=== PATIENT | female | born 1990 | race Caucasian/White ===

== ENCOUNTER 2021-06-15 21:31 | Observation (INO) | payer MEDICAID, SELFPAY ==
[2021-06-15 21:32] VITALS: BP 146/93; PULSE 108; RESP 16; TEMP 36.6; O2SAT 98; BMI 51.5
--- NOTE | 2021-06-15 22:20 | CT_ITS ---
EXAMINATION : Head CT w/out contrast HISTORY : headache COMPARISON : None. TECHNIQUE : Multiple contiguous axial images were obtained from the skull base to the vertex without intravenous contrast. A radiation dose optimization technique was used for this scan. FINDINGS : The ventricles and sulci are normal in size. There is no evidence for acute intracranial hemorrhage, mass effect, or midline shift. There is no extra-axial fluid collection. There is normal horn-white differentiation, without CT evidence of acute ischemia or infarct. The skull base and calvarium are unremarkable. The orbits are unremarkable. The paranasal sinuses are clear. The mastoid air cells are well-aerated. The soft tissues are unremarkable. CT/Brain/Head without Contrast IMPRESSION: No acute intracranial abnormality. Electronically Signed: Anselmo Diaz MD at 23:15 EDT Tel , Service support ,
--- NOTE | 2021-06-15 22:20 | EKG12_ITS ---
Test Reason : PALPITATIONS Blood Pressure : / mmHG Vent. Rate : 086 BPM Atrial Rate : 086 BPM P-R Int : 166 ms QRS Dur : 084 ms QT Int : 380 ms P-R-T Axes : 043 015 037 degrees QTc Int : 454 ms Sinus rhythm with sinus arrhythmia with occasional Premature ventricular complexes Otherwise normal ECG Confirmed by STEPHANIE GALEANO, LASHONDA ([id number]), editorial clerk AMBIKA TELLO ([id number]) on 06/20/2021 10:49:13 AM Referred By: Confirmed By:TAMAR BROWN MD
--- NOTE | 2021-06-15 22:22 | EDS_ITS ---
HPI History of Present Illness Chief Complaint: Palpitations Detail of Chief Complaint: Tachycardia Informant: patient Narrative Narrative: Patient presents to the emergency department with a racing heart that started around 6:30 PM while she was driving. At the same time patient also developed a frontal headache that feels like a band wrapping around her head. She rates her headache a 7 out of 10. She has history of migraines. Patient went to [employer] and while in [employer] had frequent episodes of heart racing anywhere from 130 to 140 bpm. Patient denies recent illness. She has not been vaccinated against Covid. She denies recent travel or surgery. No history of PE or DVT. Patient does have history of insulin resistance and hyperglycemia. She denies any chest pain. Patient states that while in triage she was seated and had a syncopal episode. When her heart races she feels lightheaded and dizzy. [facility] Medical History (Updated 06/16/21 @ 00:[address] Madeleine Hebert, ) History of asthma History of lupus anticoagulant disorder Insulin resistance Migraines Home Medications [id number] fumarate-FA [] 1 tab PO DAILY 06/15/21 [History Last Taken Unknown] albuterol sulfate 2.5 mg INHALATION Q4H 06/15/21 [History Last Taken Unknown] aspirin 81 mg PO DAILY 06/15/21 [History Last Taken Unknown] folic acid 1 mg PO DAILY 06/15/21 [History Last Taken Unknown] gabapentin 100 mg PO DAILY PRN 06/15/21 [History Last Taken Unknown] metformin 1,000 mg PO DAILY 06/15/21 [History Last Taken Unknown] naproxen 500 mg PO BID PRN 06/15/21 [History Last Taken Unknown] promethazine [Phenergan] 25 mg PO Q6H PRN 06/15/21 [History Last Taken Unknown] Allergy/AdvReac Type Severity Reaction Status Date / Time prochlorperazine Allergy Other Verified 06/15/21 21:32 [From Compazine] Surgical History History of cholecystectomy History of tonsillectomy Social History Smoking Status: Never smoker ROS ROS ED Constitutional Constitutional ED: Reports systems reviewed and no addt'l complaints, except as documented; Denies body ache(s), change in weight or chills Eyes Eyes: Denies acute decrease in peripheral vision, change in vision, double vision or loss of vision ENT ENT ED: Reports none; Denies ear pain, lip swelling, loss taste/smell, neck pain, otalgia or sore throat Cardiovascular Cardiovascular: Reports none, racing heartbeat and other Details: Syncopal episode ; Denies abdominal pain, chest pain with activity, leg edema, lightheadedness, rapid heart rate or syncope Respiratory/Chest Respiratory/Chest: Reports none; Denies change in mental status, dry cough, dyspnea, hemoptysis, shortness of breath at rest or shortness of breath with exertion Gastrointestinal Gastrointestinal: Reports none; Denies abdominal pain, change in stool character, diarrhea, hematemesis, hematochezia, melena, rectal bleeding or vomiting Genitourinary Genitourinary ED: Reports none; Denies abdominal discomfort, anuria, dysuria, genital pain or polyuria Musculoskeletal Musculoskeletal: Reports none; Denies arthralgias, back pain, difficulty walking, extremity pain, muscle weakness or myalgias Integumentary Reports none; Denies abscess or rash Neurologic Neurologic: Reports none, headache(s) and other Details: Dizziness ; Denies abnormal gait, confusion, focal weakness, frequent falls, loss of vision, numbness, paresthesias, radicular pain, vertigo or weakness Psychiatric Psychiatric: Reports systems reviewed and no addt'l complaints, except as documented and none; Denies behavioral changes, confusion, difficulty concentrating, hallucinations, suicidal ideation, tactile hallucinations or visual hallucinations Endocrine Endocrinology: Denies none, cold intolerance, excessive sweating, fatigue or heat intolerance Hematologic/Lymphatic Hematologic/Lymphatic: Reports none; Denies anemia, easy bleeding or easy bruising Allergic/Immunologic Allergic/Immunologic ED: Denies as per HPI, none, lip swelling, mouth swelling, throat swelling, tongue swelling or hives EXAM Physical Exam Const Vital Signs: 06/15/21 21:32 06/15/21 22:40 06/15/21 22:41 Temperature 97.8 F Temperature Source Temporal Pulse Rate 108 H 109 H Pulse Rate [Lying] Pulse Rate [Sitting] Pulse Rate [Standing] Respiratory Rate 16 12 Respiratory Effort Normal Non-Labored Blood Pressure 146/93 H 124/71 H Blood Pressure [Lying] Blood Pressure [Sitting] Blood Pressure [Standing] Blood Pressure Mean 110 88 Blood Pressure Mean [Lying] Blood Pressure Mean [Sitting] Blood Pressure Mean [Standing] Pulse Ox 98 97 Oxygen Delivery Method Room Air Room Air 06/15/21 22:46 Temperature Temperature Source Pulse Rate Pulse Rate [Lying] 94 Pulse Rate [Sitting] 103 H Pulse Rate [Standing] 116 H Respiratory Rate Respiratory Effort Blood Pressure Blood Pressure [Lying] 134/84 H Blood Pressure [Sitting] 155/110 H Blood Pressure [Standing] 154/109 H Blood Pressure Mean Blood Pressure Mean [Lying] 100 Blood Pressure Mean [Sitting] 125 Blood Pressure Mean [Standing] 124 Pulse Ox Oxygen Delivery Method Positive well nourished and well developed General Appearance ED: well developed and NAD HEENT Reports TM's clear and moist mucous membranes normocephalic and atraumatic; Negative for trauma or tenderness Tympanic Membrane ED: Yes TM's clear Eyes PERRL and EOMs intact bilaterally General Eye ED: Negative for pale conjunctiva or scleral icterus Neck no lymphadenopathy, supple and no JVD General: Negative for tenderness Chest Wall inspection of chest normal and palpation of chest normal Chest: Negative for tenderness Resp normal respiratory effort and clear to auscultation bilaterally Effort and Inspection: Negative for respiratory distress or pain with movement Auscultation: Negative for rhonchi, wheezes or diminished lung sounds Cardio regular rate, regular rhythm, S1 normal heart sound, S2 normal heart sound and no murmurs Peripheral Pulses: pulses 2+ throughout GI normal to inspection, nondistended, normoactive bowel sounds, soft to palpation, non-tender, non-distended and no masses Back/Spine no CVA tenderness and no thoracic nor lumbar tenderness Extremity normal to inspection General Extremety ED: Negative for edema General Extremity: Negative for edema Neuro oriented x3, CN's II-XII intact bilaterally, no sensory deficits noted and gait normal Sensorium / Orientation: awake, alert, oriented to person, oriented to place and oriented to time Motor Exam: strength 5/5 throughout and strength abnormal Psych mental status grossly normal Skin no rashes or lesions noted and no wounds MDM MDM MDM Narrative Medical decision making narrative: Results of patient D-dimer still pending. Discussed with hospitalist will evaluate patient for admission. Patient had a syncopal episode in triage and then another episode in the room. Patient states that she felt like her heart was starting to race again and felt like she was in a pass out and then was unconscious for about a minute per her . No seizure activity noted. Rhythm strip was reviewed and did not show any lethal arrhythmias. Case discussed with hospitalist will evaluate patient for admission Lab Data Attestation: I reviewed the patient's lab results. Labs: Laboratory Results - last 24 hr 06/15/21 06/15/21 06/15/21 22:30 22:30 22:30 WBC 11.6 H RBC 5.01 Hgb 12.8 Hct 41.0 MCV 81.8 MCH 25.5 L MCHC 31.2 L RDW Std Deviation 45.7 H RDW Coeff of Remigio 15.2 H Plt Count 244 MPV 12.6 H Immature Gran % (Auto) 0.300 Neut % (Auto) 66.8 Lymph % (Auto) 24.1 [place] % (Auto) 6.5 Eos % (Auto) 2.0 Baso % (Auto) 0.3 Absolute Neuts (auto) 7.8 H Absolute Lymphs (auto) 2.79 Nucleated RBC % 0 Sodium 141 Potassium 3.8 Chloride 107 Carbon Dioxide 27.0 Anion Gap 7 BUN 16 Creatinine 0.80 Estim Creat Clear Calc 99.99 Est GFR (MDRD) Af Amer 108 Est GFR (MDRD) Non-Af 89 BUN/Creatinine Ratio 19.9 Glucose 100 Calcium 9.1 Troponin I High Sens 6 TSH 3.47 Serum , Qual NEGATIVE Radiography Chest X-Ray - ED: 1 View Diagnostic Testing: Clinical Impression(s) from Imaging Studies Brain CT 06/15/21 22:20 IMPRESSION: No acute intracranial abnormality. Electronically Signed: Anselmo Diaz MD at 23:15 EDT Tel , Service support , Chest X-Ray 06/15/21 23:08 IMPRESSION: Normal x-ray examination of the chest. Electronically Signed: Chris Frost DO at 23:18 EDT Tel [phone], Service support , 1 view chest x-ray obtained interpreted by myself as no acute disease process. EKG Initial EKG: Comments: Sinus rhythm with a ventricular rate of 86 bpm with occasional PVCs. Discharge Plan Triage Chief Complaint: Palpitations ED Provider: Madeleine Hebert Dx/Rx/DC Orders Clinical Impression: Syncope, Tachycardia Prescriptions: No Action albuterol sulfate 2.5 mg /3 mL (0.083 %) solution for nebulization 2.5 mg inhalation Q4H RF: 0 metformin 500 mg tablet extended release 24 hr 1,000 mg PO DAILY RF: 0 aspirin 81 mg Capsule 81 mg PO DAILY RF: 0 promethazine [Phenergan] 25 mg Tablet 25 mg PO Q6H PRN (Reason: Migraine Headache) RF: 0 folic acid 1 mg Tablet 1 mg PO DAILY RF: 0 gabapentin 100 mg Capsule 100 mg PO DAILY PRN (Reason: Migraine Headache) RF: 0 naproxen 500 mg Tablet 500 mg PO BID PRN (Reason: Migraine Headache) RF: 0 28-800 mg-mcg Tablet 1 tab PO DAILY RF: 0 Disposition Disposition: Acute Care [facility]
--- NOTE | 2021-06-15 22:22 | ED.RN ---
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 pt was then sent to open room for evaluation by ed dr. kenia kimball, rn [id number] Original Note: pt had a syncopal episode in triage. spouse approached the desk and said i think she has passed out. pt was found in arm chair with her head back against the wall. she did not respond to verbal stimuli. pulse was present. kenia kimball rn [id number]
[2021-06-15 22:40] VITALS: BP 124/71; PULSE 109; RESP 12; O2SAT 97
[2021-06-15] MEDS: 0.9% Normal Saline 1,000 ML 1000 ML IV (22:43)
[2021-06-15 22:46] VITALS: BP 134/84; BP 154/109; BP 155/110; PULSE 103; PULSE 116; PULSE 94
[2021-06-15 22:48] LABS: Absolute Lymphocyte Count 2.79 X10^3/uL (0.83-4.51); Absolute Neutrophil Count 7.8 X10^3/uL (2.0-7.7); Basophil# 0.04 X10^3/uL; Basophil% 0.3 % (0-1); Eosinophil# 0.23 X10^3/uL; Hemoglobin 12.8 g/dL (12.0-15.0); Lymphocyte # 2.79 X10^3/ul (0.83-4.51); Lymphocyte % 24.1 % (19-41); Mean Corp Hgb Conc 31.2 g/dL (32-36); Mean Corpuscular Hgb 25.5 pg (27.0-32.0); Mean Corpuscular Volume 81.8 fL (81-99); Mean Platelet Vol. 12.6 fl (6.2-12.0); Monocyte# 0.75 X10^3/uL; Monocyte% 6.5 % (0-10); NRBC Flagged by Analyzer 0 % (0-5); Neutrophil # 7.76 X10^3/uL (2.7-7.7); Neutrophil % 66.8 % (47-70); Platelet Count 244 K/mm3 (150-450); RBC Distribution Width CV 15.2 % (11.6-14.6); RBC Distribution Width SD 45.7 fl (35.1-43.9); Red Blood Count 5.01 M/mm3 (4.2-5.4); White Blood Count 11.6 K/mm3 (4.4-11.0)
[2021-06-15 23:08] LABS: Internal QC Validated? YES +Cl - CLEAR BKGD; Pregnancy, Serum, hCG Quali. NEGATIVE Negative
--- NOTE | 2021-06-15 23:08 | RAD_ITS ---
STUDY: X-RAY CHEST REASON FOR EXAM: Female, 31 years old. Tachycardia. TECHNIQUE: Single AP portable view of the chest. COMPARISON: None. FINDINGS: The lungs are clear and expanded. There is no demonstrated pleural abnormality. Normal size heart. Normal mediastinum and ro[place]. Normal visualized pulmonary arteries. Normal visualized aortic arch and descending thoracic aorta. Normal visualized thoracic spine. Normal visualized ribs, clavicles, and shoulders. There is no demonstrated abnormality of the visualized soft tissue structures of the upper abdomen. RAD/Chest 1 View (Portable) IMPRESSION: Normal x-ray examination of the chest. Electronically Signed: Chris Frost DO at 23:18 EDT Tel [phone], Service support ,
[2021-06-15 23:22] LABS: Anion Gap 7 (5-15); BUN 16 mg/dL (7-18); BUN/Creat Ratio 19.9 RATIO (10-20); Calcium,Total 9.1 mg/dL (8.5-10.1); Chloride 107 mmol/L (98-107); EST Glomerular Filtration Rate 89 mL/min (>60); Est Glom Filt Rate - Afr Amer 108 mL/min (>60); Estimated Creatinine Clearance 99.99 ml/min; Glucose 100 mg/dL (74-106); Potassium 3.8 mmol/L (3.5-5.1); Sodium Level 141 mmol/L (136-145); Thyroid Stim Hormone (TSH) 3.47 uIU/mL (0.358-3.74); Troponin-I HS 6 pg/mL (3.0-54.0)
[2021-06-16] VITALS (18 sets, daily range): BP systolic 121–154; BP diastolic 65–109; PULSE 63–89; RESP 16–18; TEMP 36.3–36.8; O2SAT 95–99; BMI 51.3
[2021-06-16 00:18] LABS: Color, Urine Yellow (Yellow); Glucose, Dipstick Normal (Normal); Ketone-Dipstick Negative (Negative); Leukocyte Esterase-Dipstick Negative /ul (Negative); Nitrite-Dipstick Negative (Negative); Occult Blood-Urine Negative /ul (Negative); Protein-Dipstick Negative (Negative); Red Blood Cells-Urine 0 SEEN /hpf (0-5); Squamous Epithelial Cells - UA 0 SEEN /hpf (5-10); Urine Bilirubin Dipstick Negative (Negative); Urine Clarity Clear (Clear); Urine Urobilinogen Normal (Normal); White Blood Cells 0 SEEN /hpf (0-5)
--- NOTE | 2021-06-16 00:24 | PCM.HP.STD ---
Documented by User: DONALD Esquivel 06/16/21 00:43 HPI - General General Date of Admission: 06/15/21 Date of Service: 06/16/21 Chief Complaint: palpitations with syncope HPI Narrative AMBIKA BROWN, is a 31 F who presents with complaints of palpitations. Per patient report she was syncopal in the waiting room and again in the ER bed. Patient denies fever, chills, chest pain, shortness of breath, nausea, vomiting, diarrhea, constipation. Pt reports a history of migraines, insulin resistance and asthma. [facility] Medical History History of asthma History of lupus anticoagulant disorder Insulin resistance Migraines Home Medications [id number] fumarate-FA [] 1 tab PO DAILY 06/15/21 [History Last Taken Unknown] albuterol sulfate 2.5 mg INHALATION Q4H 06/15/21 [History Last Taken Unknown] aspirin 81 mg PO DAILY 06/15/21 [History Last Taken Unknown] folic acid 1 mg PO DAILY 06/15/21 [History Last Taken Unknown] gabapentin 100 mg PO DAILY PRN 06/15/21 [History Last Taken Unknown] metformin 1,000 mg PO DAILY 06/15/21 [History Last Taken Unknown] naproxen 500 mg PO BID PRN 06/15/21 [History Last Taken Unknown] promethazine [Phenergan] 25 mg PO Q6H PRN 06/15/21 [History Last Taken Unknown] Allergy/AdvReac Type Severity Reaction Status Date / Time prochlorperazine Allergy Other Verified 06/15/21 21:32 [From Compazine] Family History Mother Cancer Thyroid disorder Father Heart disease Surgical History History of cholecystectomy History of tonsillectomy Social History Smoking Status: Never smoker ROS Constitutional Constitutional: Denies anorexia, chills, fatigue, malaise or weakness Cardiovascular Cardiovascular: Reports palpitations and syncope; Denies chest pain or edema Respiratory/Chest Respiratory/Chest: Denies cough, shortness of breath at rest, shortness of breath with exertion or wheezing Gastrointestinal Gastrointestinal: Denies abdominal pain, constipation, diarrhea, nausea or vomiting Genitourinary Genitourinary: Denies dysuria Musculoskeletal Musculoskeletal: Denies back pain, extremity pain, joint pain or joint stiffness Integumentary Integumentary: Denies dry skin Neurologic Neurologic: Denies abnormal gait, abnormal speech, confusion or dizziness Psychiatric Psychiatric: Denies anxiety or depression Endocrine Endocrinology: Denies change in body appearance Hematologic/Lymphatic Hematologic/Lymphatic: Denies anemia Vital Signs Vital Signs Vital Signs: 06/15/21 21:32 06/15/21 22:40 06/15/21 22:41 Temperature 97.8 F Temperature Source Temporal Pulse Rate 108 H 109 H Pulse Rate [Lying] Pulse Rate [Sitting] Pulse Rate [Standing] Respiratory Rate 16 12 Respiratory Effort Normal Non-Labored Blood Pressure 146/93 H 124/71 H Blood Pressure [Lying] Blood Pressure [Sitting] Blood Pressure [Standing] Blood Pressure Mean 110 88 Blood Pressure Mean [Lying] Blood Pressure Mean [Sitting] Blood Pressure Mean [Standing] Pulse Ox 98 97 Oxygen Delivery Method Room Air Room Air 06/15/21 22:46 Temperature Temperature Source Pulse Rate Pulse Rate [Lying] 94 Pulse Rate [Sitting] 103 H Pulse Rate [Standing] 116 H Respiratory Rate Respiratory Effort Blood Pressure Blood Pressure [Lying] 134/84 H Blood Pressure [Sitting] 155/110 H Blood Pressure [Standing] 154/109 H Blood Pressure Mean Blood Pressure Mean [Lying] 100 Blood Pressure Mean [Sitting] 125 Blood Pressure Mean [Standing] 124 Pulse Ox Oxygen Delivery Method Weight Weight: 329 lb Body Mass Index (BMI) 51.5 Physical Exam Const alert, oriented x3 and no apparent distress General Appearance: cooperative HEENT normocephalic and head/scalp atraumatic Eyes conjunctivae normal and no scleral icterus Neck supple General: trachea midline Resp normal respiratory effort, normal air movement and clear to auscultation bilaterally Cardio regular rate, regular rhythm, S1 normal heart sound, S2 normal heart sound and peripheral pulses 2+ throughout Rate: tachycardic GI normal to inspection, nondistended, normoactive bowel sounds, soft to palpation and non-tender Extremity normal capillary refill and no clubbing, cyanosis or edema General Extremity: no tenderness to palpation of joints or extremities Skin General Skin Exam: no breakdown and turgor normal Lesions: no lesions Rashes: no rashes Neuro no focal motor deficits and no sensory deficits noted Speech: speech normal Motor Exam: Negative for general weakness Psych thought process normal, cooperative and affect normal Appearance: appropriate Results Lab / Micro Data Result Diagrams: 06/15/21 22:30 06/15/21 22:30 Labs: Laboratory Results - last 24 hr 06/15/21 22:30: WBC 11.6 H, RBC 5.01, Hgb 12.8, Hct 41.0, MCV 81.8, MCH 25.5 L, MCHC 31.2 L, RDW Std Deviation 45.7 H, RDW Coeff of Remigio 15.2 H, Plt Count 244, MPV 12.6 H, Immature Gran % (Auto) 0.300, Neut % (Auto) 66.8, Lymph % (Auto) 24.1, Hill % (Auto) 6.5, Eos % (Auto) 2.0, Baso % (Auto) 0.3, Absolute Neuts (auto) 7.8 H, Absolute Lymphs (auto) 2.79, Nucleated RBC % 0 06/15/21 22:30: Sodium 141, Potassium 3.8, Chloride 107, Carbon Dioxide 27.0, Anion Gap 7, BUN 16, Creatinine 0.80, Estim Creat Clear Calc 99.99, Est GFR (MDRD) Af Amer 108, Est GFR (MDRD) Non-Af 89, BUN/Creatinine Ratio 19.9, Glucose 100, Calcium 9.1, Troponin I High Sens 6, TSH 3.47 06/15/21 22:30: Serum , Qual NEGATIVE Micro: Microbiology 06/15/21 22:40 Nasal Secretion SARS-CoV-2 Antigen (Rapid) - Final Radiology Impression Brain CT 06/15/21 22:20 IMPRESSION: No acute intracranial abnormality. Electronically Signed: Anselmo Diaz MD at 23:15 EDT Tel , Service support , Chest X-Ray 06/15/21 23:08 IMPRESSION: Normal x-ray examination of the chest. Electronically Signed: Chris Frost DO at 23:18 EDT Tel [phone], Service support , Assessment & Plan Assessment/Plan (1) Syncope: QUALIFIERS: Syncope type: unspecified Qualified Code(s): R55 - Syncope and collapse (2) Tachycardia: PLAN: 1. Syncope -Admit to PCU for cardiac monitoring -Trend cardiac enzymes -Echocardiogram ordered for a.m. -Orthostatic vital signs x1 -Oxygen per protocol -CBC, CMP, magnesium, phosphorus level ordered for a.m. -Urine drug screen ordered 2. Tachycardia -Possibly stress-induced as patient has lost her mother in October 2020 and has recently moved started a new job and started going back to school. -Metoprolol initiated at 25 mg p.o. twice daily -Continuous cardiac monitoring -Vital signs per protocol -D-dimer pending 3. Insulin resistance -Hold Metformin -AC at bedtime blood sugars with sliding scale insulin ordered DVT prophylaxis-subcu Lovenox This patient was seen by RYLIE EsquivelC under the supervision of Dr. Lara. Documented by User: Dr. Hailey Lara DO 06/16/21 01:21 HPI - General General Date of Admission: 06/15/21 Date of Service: 06/16/21 Chief Complaint: Palpitations/tachycardia HPI Narrative This patient was seen in conjunction with Lisa Manrique NP. The following is representation my independent history and physical examination. Please see below for addendum to the above. Ambika Vu is a 31-year-old white female who presented to emergency department [facility] on 03/15/2021 with a chief complaint of palpitations. Patient states that this started approximate 6:30 PM when she was driving and at the same time she developed a frontal headache that felt like a band wrapping around her head. Her headache is gone at the time of my evaluation. She went to jainism and while she was at jainism she had frequent episodes of racing heart rate anywhere from the 130s to the 140s. She has not had any illnesses and has never experienced this previously. Evidently while she was in triage area she was seated and had a syncopal episode but this was not witnessed she evidently had another syncopal episode that was only witnessed by her while she was in the emergency department with no significant EKG changes other than a couplet of PVCs together. Upon my evaluation her heart rate has improved and is in the upper 90s to low 100s. She has no subjective complaints at this time and objectively looks well. Her vital signs were stable at that time other than some mild blood pressure elevations. Her CBC showed a mild leukocytosis with a white count of 11.6 but was otherwise overall unremarkable. Her D-dimer was negative. BMP, UA, and tox screen were unremarkable as well. The patient denies any tobacco, alcohol, or substance abuse and does not regularly intake caffeine. A TSH done in the emergency department was normal. [facility] Medical History History of asthma History of lupus anticoagulant disorder Insulin resistance Migraines Home Medications [id number] fumarate-FA [] 1 tab PO DAILY 06/15/21 [History Last Taken Unknown] albuterol sulfate 2.5 mg INHALATION Q4H 06/15/21 [History Last Taken Unknown] aspirin 81 mg PO DAILY 06/15/21 [History Last Taken Unknown] folic acid 1 mg PO DAILY 06/15/21 [History Last Taken Unknown] gabapentin 100 mg PO DAILY PRN 06/15/21 [History Last Taken Unknown] metformin 1,000 mg PO DAILY 06/15/21 [History Last Taken Unknown] naproxen 500 mg PO BID PRN 06/15/21 [History Last Taken Unknown] promethazine [Phenergan] 25 mg PO Q6H PRN 06/15/21 [History Last Taken Unknown] Allergy/AdvReac Type Severity Reaction Status Date / Time prochlorperazine Allergy Other Verified 06/15/21 21:32 [From Compazine] Family History Mother Cancer Thyroid disorder Father Heart disease Surgical History History of cholecystectomy History of tonsillectomy Social History Smoking Status: Never smoker ROS Constitutional Constitutional: Denies anorexia, change in weight, chills, fatigue, fever(s), malaise, night sweats, weakness, weight gain or weight loss Eyes Eyes: Denies blurry vision, change in vision, discharge from eye(s), double vision, erythema, eye pain, irritation or itchy eyes ENT HEENT: Denies abnormal hearing, dysphagia, ear pain, epistaxis, headache(s), hearing loss, loss taste/smell, nasal congestion, nasal discharge, post nasal drip, sinus pain, sinus pressure, sore throat or throat swelling Cardiovascular Cardiovascular: Reports palpitations and syncope; Denies chest pain, claudication, edema, orthopnea or paroxysmal nocturnal dyspnea Respiratory/Chest Respiratory/Chest: Denies cough, hemoptysis, shortness of breath at rest, shortness of breath with exertion or wheezing Gastrointestinal Gastrointestinal: Denies abdominal pain, constipation, diarrhea, dyspepsia, hematemesis, hematochezia, melena, nausea or vomiting Genitourinary Genitourinary: Denies dysuria, hematuria, nocturia, oliguria, polyuria, urinary frequency, urinary hesitancy, urinary incontinence or urinary urgency Musculoskeletal Musculoskeletal: Denies back pain, extremity pain, joint pain, joint stiffness, joint swelling, limited range of motion, muscle weakness, neck pain or stiffness Integumentary Integumentary: Denies dry skin, jaundice, lesions, pruritus, rash or wounds Neurologic Neurologic: Reports headache(s); Denies abnormal gait, abnormal speech, confusion, dizziness, focal weakness, lack of coordination, numbness, seizures, sensory deficit, tingling, tremor(s) or weakness Psychiatric Psychiatric: Denies anxiety, depression, homicidal ideation or suicidal ideation Endocrine Endocrinology: Denies change in body appearance, cold intolerance, heat intolerance, polydipsia or polyuria Hematologic/Lymphatic Hematologic/Lymphatic: Denies anemia, easy bleeding, easy bruising or lymphadenopathy Physical Exam Const alert, oriented x3, no apparent distress and well nourished Constitutional Narrative: Morbidly obese young white female sitting up in bed, appears comfortable, nontoxic General Appearance: cooperative and well developed HEENT normocephalic, head/scalp atraumatic, moist oral mucous membranes and oropharynx normal HEENT Narrative: Mallampati 2, no thrush Eyes PERRL and EOMs intact bilaterally Eyes Narrative: No scleral icterus, conjunctiva normal Neck no lymphadenopathy, supple, no JVD, thyroid normal, No nodes and no carotid bruits General: trachea midline Resp normal respiratory effort, normal air movement and clear to auscultation bilaterally Auscultation: Negative for rales, rhonchi or wheezes Cardio regular rhythm, S1 normal heart sound, S2 normal heart sound, no murmurs, no rub, no gallops and peripheral pulses 2+ throughout Cardio Narrative: Mild tachycardia Rate: tachycardic GI normal to inspection, nondistended, normoactive bowel sounds, soft to palpation, non-tender and non-distended Palpation: no hepatosplenomegaly Extremity normal capillary refill, no clubbing, cyanosis or edema and no calf tenderness Skin no jaundice, no petechiae and no mottling General Skin Exam: no breakdown and turgor normal Lesions: no lesions Rashes: no rashes Neuro CN's II-XII intact bilaterally, no focal motor deficits and no sensory deficits noted Speech: speech normal Motor Exam: strength 5/5 throughout Psych affect normal Appearance: appropriate Mood & Affect: anxious Results Lab / Micro Data Attestation: I reviewed the patient's lab results. Result Diagrams: 06/15/21 22:30 06/15/21 22:30 Assessment & Plan Assessment/Plan (1) Syncope: QUALIFIERS: Syncope type: unspecified Qualified Code(s): R55 - Syncope and collapse (2) Tachycardia: PLAN: Assessment: Syncope Tachycardia PVCs Glucose ptosis Elevated blood pressure Insulin resistance Asthma Plan: Admit to PCU and monitor on telemetry Start metoprolol 25 mg twice daily Patient did have 2-3 beat runs of VT in the emergency department at 2 separate occasions 1 coincided with her syncopal episode the other did not and was there upon my exam Check echocardiogram TSH within normal limits Check a.m. CBC, CMP, magnesium level, phosphorus level Urine tox screen is negative D-dimer was negative Patient has been under significant stress since her mother in October 2020, starting a new job, multiple miscarriages, and going back to school Charges/Coding Visit Charges Inpatient E&M: 05389 Init Hosp L3
[2021-06-16 00:26] LABS: Bacteria RARE /hpf (None Seen); Mucous, Urine RARE /hpf (<or=2+)
[2021-06-16 00:45] LABS: Amphetamine Urine VISTA NEGATIVE (<1000 ng/mL); Barbiturate Urine VISTA NEGATIVE (< 200 ng/mL); Benzodiazepine Urine VISTA NEGATIVE (< 200 ng/mL); Cocaine Urine VISTA NEGATIVE (< 300 ng/mL); Ecstacy Urine VISTA NEGATIVE (< 500 ng/mL); Methadone Urine VISTA NEGATIVE (< 300 ng/mL); PCP Urine VISTA NEGATIVE (< 25 ng/mL); THC Urine VISTA NEGATIVE (< 50 ng/mL); Vista UDS pH Range 5
[2021-06-16 00:58] LABS: D-Dimer Quantitative (DVT/PE) <= 0.27 FEU/ug/m (0.27-0.49)
--- NOTE | 2021-06-16 01:21 | ECHOCS_ITS ---
Reason For Study: PALPITATIONS, SYNCOPE Procedure This was a 2D Doppler, Color Flow transthoracic echocardiogram. The study was technically difficult. Exam performed portable in patient room. Left Ventricle Normal LV size. The estimated ejection fraction is 50 %. No evidence for diastolic dysfunction. There is mild global hypokinesis of the left ventricle. Right Ventricle Normal RV size. Normal systolic function. Atria Normal left atrium. Normal right atrium. No doppler evidence for ASD. Mitral Valve There is no mitral valve stenosis. Trivial mitral valve insufficiency. Tricuspid Valve There is no tricuspid stenosis. Trivial tricuspid valve insufficiency. Unable to estimate RV systolic pressure due to insufficient tricuspid regurgitant envelope. Aortic Valve Trisinus/trileaflet aortic valve. There is no aortic stenosis. No aortic valve insufficiency. Pulmonic Valve There is no pulmonic valvular stenosis. Trivial pulmonic valve insufficiency. Medication Diluted definity 5ml given slow IV push to enhance endocardial definition. MMode/2D Measurements & Calculations LVIDd: 5.2 cm IVSd: 0.90 cm Ao root diam: 3.1 cm LVIDs: 3.8 cm LVPWd: 1.0 cm RVDd: 3.6 cm FS: 26.3 % LAV(MOD-bp): 63.3 ml LVAd ap4: 44.1 cm2 SV(MOD-sp4): 87.7 ml LAV(MOD-bp) Indexed: 25.4 ml/m2 LVLd ap4: 9.4 cm LAV(MOD-sp2): 69.0 ml EDV(MOD-sp4): 172.9 ml LAV(MOD-sp4): 52.9 ml EDV(sp4-el): 176.3 ml LVAs ap4: 28.0 cm2 LVLs ap4: 7.7 cm ESV(MOD-sp4): 85.2 ml ESV(sp4-el): 86.3 ml EF(MOD-sp4): 50.7 % EF(sp4-el): 51.0 % SV(sp4-el): 90.0 ml LA dimension(2D): 4.6 cm LA A4 area: 19.2 cm2 RA A4 area: 17.1 cm2 Time Measurements MV dec time: 0.20 sec Doppler Measurements & Calculations MV E max amado: 103.5 cm/sec Lat Peak E' Amado: 19.0 cm/sec Med Peak E' Amado: 11.0 cm/sec MV A max amado: 71.3 cm/sec E/E' lat: 5.5 E/E' med: 9.4 MV E/A: 1.5 Ao V2 max: 134.6 cm/sec LV V1 max: 94.4 cm/sec PA V2 max: 97.3 cm/sec Ao max P.2 mmHg LV V1 max P.6 mmHg ECHO/Echo Complete W/ Contrast Interpretation Summary The estimated ejection fraction is 50 %. No evidence for diastolic dysfunction. There is mild global hypokinesis of the left ventricle. Ordering Physician: Hailey Lara Performed By: Cele Burton RDCS
[2021-06-16 02:17] LABS: Troponin-I HS 7 pg/mL (3.0-54.0)
[2021-06-16] MEDS: Metoprolol Tartrate 25 MG Tablet PO ×2 (02:17→21:30)
[2021-06-16 03:40] LABS: Absolute Neutrophil Count 6.8 X10^3/uL (2.0-7.7); Basophil# 0.05 X10^3/uL; Basophil% 0.4 % (0-1); Eosinophil# 0.24 X10^3/uL; Eosinophils% 2.2 % (0-5); Hematocrit 35.9 % (37-47); Hemoglobin 11.3 g/dL (12.0-15.0); Lymphocyte % 30.5 % (19-41); Mean Corp Hgb Conc 31.5 g/dL (32-36); Mean Corpuscular Hgb 25.2 pg (27.0-32.0); Mean Platelet Vol. 12.5 fl (6.2-12.0); Monocyte# 0.61 X10^3/uL; Monocyte% 5.5 % (0-10); NRBC Flagged by Analyzer 0 % (0-5); Neutrophil # 6.82 X10^3/uL (2.7-7.7); Neutrophil % 61.2 % (47-70); Platelet Count 210 K/mm3 (150-450); RBC Distribution Width CV 15.1 % (11.6-14.6); Red Blood Count 4.49 M/mm3 (4.2-5.4); White Blood Count 11.1 K/mm3 (4.4-11.0)
[2021-06-16 03:41] LABS: Troponin-I HS 8 pg/mL (3.0-54.0)
--- NOTE | 2021-06-16 05:13 | PCS.PANDOC ---
PANDEMIC DOCUMENTATION INITIATED: Date: 04/25/2021 Time: 190
[2021-06-16 06:50] LABS: Bedside Glucose 109 mg/dL (70-110)
[2021-06-16 08:36] LABS: ALB/GLOB Ratio 0.6 RATIO (0.9-2.4); AST(SGOT) 24 U/L (15-37); Alanine Aminotransfer ALT/SGPT 33 U/L (13-56); Albumin, Serum 2.7 g/dL (3.2-5.0); Alkaline Phosphatase 95 U/L (45-117); Anion Gap 5 (5-15); BUN 12 mg/dL (7-18); BUN/Creat Ratio 17.4 RATIO (10-20); Calcium,Total 8.4 mg/dL (8.5-10.1); Chloride 109 mmol/L (98-107); Creatinine, Serum 0.69 mg/dL (0.55-1.02); EST Glomerular Filtration Rate 106 mL/min (>60); Est Glom Filt Rate - Afr Amer 128 mL/min (>60); Estimated Creatinine Clearance 115.93 ml/min; Globulin 4.2 g/dL (2.2-4.2); Glucose 105 mg/dL (74-106); Phosphorus 3.8 mg/dL (2.5-4.9); Potassium 3.9 mmol/L (3.5-5.1); Protein, Total 6.9 g/dL (6.4-8.2); Sodium Level 139 mmol/L (136-145); Troponin-I HS 7 pg/mL (3.0-54.0)
[2021-06-16] MEDS: Enoxaparin 40 MG/0.4 ML Syringe SC (09:27)
[2021-06-16] MEDS: Prenatal Vits Tablet 1 TABLET PO (09:27)
[2021-06-16] MEDS: Folic Acid 1 MG Tablet PO (09:27)
[2021-06-16] MEDS: Aspirin 81 MG TAB.CHEW PO (09:27)
[2021-06-16 11:50] LABS: Bedside Glucose 97 mg/dL (70-110)
--- NOTE | 2021-06-16 12:47 | PCM.PN.HOSP ---
Subjective Subjective Patient seen and examined. Denies further palpitations or syncope overnight. No events on telemetry. Cardiology consulted due to episode of V. tach with associated near syncope. Patient also describes shortness of breath with exertion which has been ongoing prior to admission. Objective Data Objective Data Vital Signs: Vital Signs Temp Pulse Resp BP Pulse Ox 97.3 F L 63 16 121/65 H 97 06/16/21 08:00 06/16/21 12:03 06/16/21 08:00 06/16/21 08:00 06/16/21 08:14 Oxygen Delivery Method Room Air Weight: 328 lb 0.765 oz Body Mass Index (BMI) 51.3 Intake & Output: Intake and Output for Last 24 Hours 06/14/21 06/15/21 06/16/21 23:59 23:59 23:59 Intake Total 1000 / 1000 150 / 150 Balance 1000 / 1000 150 / 150 Lab / Micro Data Result Diagrams: 06/16/21 03:14 06/16/21 07:50 Labs: Laboratory Results - last 24 hr 06/15/21 22:30: WBC 11.6 H, RBC 5.01, Hgb 12.8, Hct 41.0, MCV 81.8, MCH 25.5 L, MCHC 31.2 L, RDW Std Deviation 45.7 H, RDW Coeff of Remigio 15.2 H, Plt Count 244, MPV 12.6 H, Immature Gran % (Auto) 0.300, Neut % (Auto) 66.8, Lymph % (Auto) 24.1, [place] % (Auto) 6.5, Eos % (Auto) 2.0, Baso % (Auto) 0.3, Absolute Neuts (auto) 7.8 H, Absolute Lymphs (auto) 2.79, Nucleated RBC % 0 06/15/21 22:30: D-Dimer Quant (PE/DVT) <= 0.27 06/15/21 22:30: Sodium 141, Potassium 3.8, Chloride 107, Carbon Dioxide 27.0, Anion Gap 7, BUN 16, Creatinine 0.80, Estim Creat Clear Calc 99.99, Est GFR (MDRD) Af Amer 108, Est GFR (MDRD) Non-Af 89, BUN/Creatinine Ratio 19.9, Glucose 100, Calcium 9.1, Troponin I High Sens 6, TSH 3.47 06/15/21 22:30: Serum , Qual NEGATIVE 06/15/21 23:55: Urine Color Yellow, Urine Clarity Clear, Urine pH 6.0, Ur Specific [place] 1.020, Urine Protein Negative, Urine Glucose (UA) Normal, Urine Ketones Negative, Urine Occult Blood Negative, Urine Nitrite Negative, Urine Bilirubin Negative, Urine Urobilinogen Normal, Ur Leukocyte Esterase Negative, Urine RBC 0 SEEN, Urine WBC 0 SEEN, Ur Squamous Epith Cells 0 SEEN, Urine Bacteria RARE, Urine Mucus RARE 06/15/21 23:55: Urine Opiates Screen NEGATIVE, Urine Methadone Screen NEGATIVE, Ur Barbiturates Screen NEGATIVE, Ur Phencyclidine Scrn NEGATIVE, Ur Amphetamines Screen NEGATIVE, U Methamphetamin-MDMA NEGATIVE, U Benzodiazepines Scrn NEGATIVE, Urine Cocaine Screen NEGATIVE, U Cannabinoids Screen NEGATIVE, Ur Drug Screen Comment 06/16/21 01:52: Troponin I High Sens 7 06/16/21 03:14: WBC 11.1 H, RBC 4.49, Hgb 11.3 L, Hct 35.9 L, MCV 80.0 L, MCH 25.2 L, MCHC 31.5 L, RDW Std Deviation 44.0 H, RDW Coeff of Remigio 15.1 H, Plt Count 210, MPV 12.5 H, Immature Gran % (Auto) 0.200, Neut % (Auto) 61.2, Lymph % (Auto) 30.5, [place] % (Auto) 5.5, Eos % (Auto) 2.2, Baso % (Auto) 0.4, Absolute Neuts (auto) 6.8, Absolute Lymphs (auto) 3.40, Nucleated RBC % 0 06/16/21 03:14: Troponin I High Sens 8 06/16/21 06:38: POC Glucose 109 06/16/21 07:50: Sodium 139, Potassium 3.9, Chloride 109 H, Carbon Dioxide 25.0, Anion Gap 5, BUN 12, Creatinine 0.69, Estim Creat Clear Calc 115.93, Est GFR (MDRD) Af Amer 128, Est GFR (MDRD) Non-Af 106, BUN/Creatinine Ratio 17.4, Glucose 105, Calcium 8.4 L, Phosphorus 3.8, Magnesium 2.0, Total Bilirubin 0.30, AST 24, ALT 33, Alkaline Phosphatase 95, Troponin I High Sens 7, Total Protein 6.9, Albumin 2.7 L, Globulin 4.2, Albumin/Globulin Ratio 0.6 L 06/16/21 11:15: POC Glucose 97 Micro: Microbiology 06/15/21 22:40 Nasal Secretion SARS-CoV-2 Antigen (Rapid) - Final Radiography Diagnostic Testing: Radiology Impression Brain CT 06/15/21 22:20 IMPRESSION: No acute intracranial abnormality. Electronically Signed: Anselmo Diaz MD at 23:15 EDT Tel , Service support , Chest X-Ray 06/15/21 23:08 IMPRESSION: Normal x-ray examination of the chest. Electronically Signed: Chris Frost DO at 23:18 EDT Tel [phone], Service support , Physical Exam Const alert, oriented x3 and no apparent distress Orientation / Consciousness: awake, oriented to person, oriented to place and oriented to time HEENT normocephalic and moist oral mucous membranes Eyes PERRL, EOMs intact bilaterally and conjunctivae normal Neck no lymphadenopathy Resp normal respiratory effort and clear to auscultation bilaterally Cardio regular rate, regular rhythm and no murmurs Peripheral Pulses: pulses 2+ throughout GI normal to inspection, nondistended, normoactive bowel sounds, non-tender and non-distended Extremity normal to inspection Skin no rashes or lesions noted Lesions: no lesions Rashes: no rashes Trauma: no lacerations or abrasions Neuro CN's II-XII intact bilaterally, no focal motor deficits, no sensory deficits noted and deep tendon reflexes 2+ bilaterally Psych mental status grossly normal and affect normal Assessment & Plan Assessment/Plan (1) Tachycardia: (2) Syncope: QUALIFIERS: Syncope type: unspecified Qualified Code(s): R55 - Syncope and collapse PLAN: 1. Syncope-appears to have correlated with episode of NSVT. Echocardiogram pending. TSH, mag, K normal. Orthostatic vitals negative. Cardiology consulted given V. tach with associated symptoms. Brain CT unremarkable. 2. Tachycardia/nonsustained V. tach-no further episodes of V. tach during admission. Initiated on metoprolol 25 mg twice daily. 3. Insulin resistance-on Metformin. 4. Morbid obesity-encouraged diet and lifestyle modifications. 5. Chronic intermittent asthma-no exacerbation. DVT prophylaxis- Lovenox sc This patient was seen by DONALD Arnett under the supervision of Dr. Garcia.
--- NOTE | 2021-06-16 14:38 | NURSING ---
This RN taking over care at this time
--- NOTE | 2021-06-16 15:20 | DCINST_ITS ---
Discharge Instructions Diet Discharge Diet: Carb Control Diet Activity Discharge Activity: Return to Normal Activity Dressing / Incision Call your doctor if you observe: Shortness of breath, Dizziness and Chest pain Follow Up Care Test Results: Test results from this visit will be discussed in further detail at your follow-up appointment, if applicable. Discharge Plan Admission Admit Date/Time: 06/15/21 23:56 Primary Reason for Your Visit: Syncope Attending Provider: Magali Garcia Consulting Providers: Jared Mendoza Instructions Additional Instructions / Restrictions: Recommend outpatient nuclear stress test which can be arranged by cardiology at follow up. Discharge Orders/Prescriptions Prescriptions: New metoprolol tartrate 25 mg Tablet 25 mg PO BID Qty: 60 RF: 0 Continued albuterol sulfate 2.5 mg /3 mL (0.083 %) solution for nebulization 2.5 mg inhalation Q4H RF: 0 metformin 500 mg tablet extended release 24 hr 1,000 mg PO DAILY RF: 0 aspirin 81 mg Capsule 81 mg PO DAILY RF: 0 promethazine 25 mg Tablet 25 mg PO Q6H PRN (Reason: Migraine Headache) RF: 0 folic acid 1 mg Tablet 1 mg PO DAILY RF: 0 gabapentin 100 mg Capsule 100 mg PO DAILY PRN (Reason: Migraine Headache) RF: 0 naproxen 500 mg Tablet 500 mg PO BID PRN (Reason: Migraine Headache) RF: 0 28-800 mg-mcg Tablet 1 tab PO DAILY RF: 0 Other Ambulatory Orders: 30-Day Event Recorder (Routine) Location: None Selected Ordered By: Milly Schilling NP Referrals / Follow Up: LUCIANA PARKER [Other] - In 1 Week Lev Santana NP, [employer]CROMAT[employer] HONE OPERATOR-C [Nurse Practitioner] - In 1 Week ([facility]CROMATIC HONE OPERATOR/[facility], first available) Disposition Disposition (needs filled in before D/C Order can be placed): Home, Self Care
--- NOTE | 2021-06-16 15:25 | DS.PCM_ITS ---
Documented by User: Milly Schilling NP, CUSTOMER RETENTION REPRESENTATIVE-C 06/16/21 15:30 Providers Date of Admission: 06/15/21 Date of Discharge: 06/16/21 Primary Care Physician: LUCIANA PARKER Consultations 06/16/21 09:20 Consult: Cardiology Routine Consulting Provider: Jared Mendoza Reason for Consult: Syncope, vtach EMERGENT Consult: No MD Notified: Yes Date Notified: 06/16/21 Time Notified: 09:20 Method of Notification: Text Reason For Visit: TACHYCARDIA/SYNCOPE Diagnosis Discharge Diagnosis (1) Tachycardia: Status: Acute Code(s): R00.0 - Tachycardia, unspecified (2) Syncope: Status: Acute Code(s): R55 - Syncope and collapse Qualifiers: Syncope type: unspecified Qualified Code(s): R55 - Syncope and collapse Medications at Discharge Home Medications 1 tab PO DAILY 06/15/21 albuterol sulfate 2.5 mg INHALATION Q4H 06/15/21 aspirin 81 mg PO DAILY 06/15/21 folic acid 1 mg PO DAILY 06/15/21 gabapentin 100 mg PO DAILY PRN 06/15/21 metformin 1,000 mg PO DAILY 06/15/21 naproxen 500 mg PO BID PRN 06/15/21 promethazine 25 mg PO Q6H PRN 06/15/21 metoprolol tartrate 25 mg PO BID #60 tab 06/16/21 Hospital Course Operations None Procedures 2-D Echocardiogram Summary of Care Provided Minutes Spent on Discharge: 35 Hospital Course: Patient is a 31-year-old female admitted on 06/16/2021 due to syncope. 1. Vasovagal syncope-Echocardiogram completed and demonstrated an EF of 50%. TSH, mag, K normal. Orthostatic vitals negative. Cardiology consulted given V. tach with associated symptoms. Brain CT unremarkable. Troponin negative. Discussed with cardiology who recommends 30-day event monitor at discharge and outpatient nuclear stress test. Follow-up with cardiology in 1 week, follow-up with PCP in 1 week. Stress test to be ordered by PCP or cardiology at follow- up. Patient denies further syncope symptoms during admission. 2. Tachycardia/nonsustained V. tach-no further episodes of V. tach during admission. Initiated on metoprolol 25 mg twice daily. Patient noted to have 2- 3 beat runs of V. tach in ER on 2 separate occasions. Continue metoprolol at discharge. 30-day event monitor at discharge with further cardiology follow-up. 3. Insulin resistance-on Metformin. 4. Morbid obesity-encouraged diet and lifestyle modifications. 5. Chronic intermittent asthma-no exacerbation. Physical Exam Const alert, oriented x3 and no apparent distress Orientation / Consciousness: awake, oriented to person, oriented to place and or iented to time HEENT normocephalic and moist oral mucous membranes Eyes PERRL, EOMs intact bilaterally and conjunctivae normal Neck no lymphadenopathy Resp normal respiratory effort and clear to auscultation bilaterally Cardio regular rate, regular rhythm and no murmurs Peripheral Pulses: pulses 2+ throughout GI normal to inspection, nondistended, normoactive bowel sounds, non-tender and non-distended Extremity normal to inspection Skin no rashes or lesions noted Lesions: no lesions Rashes: no rashes Trauma: no lacerations or abrasions Neuro CN's II-XII intact bilaterally, no focal motor deficits, no sensory deficits noted and deep tendon reflexes 2+ bilaterally Psych mental status grossly normal and affect normal Patient seen and examined prior to discharge. Physical assessment as noted above. Patient is stable for discharge with follow up recommendations as noted above. This patient was seen by DONALD Arnett under the supervision of Dr. Garcia. Weight / BMI Weight Weight: 328 lb 0.765 oz Body Mass Index (BMI) 51.3 ABG / Lab / Microbiology Data Result Diagrams: 06/16/21 03:14 06/16/21 07:50 Laboratory: Laboratory Results - last 24 hr 06/15/21 22:30: WBC 11.6 H, RBC 5.01, Hgb 12.8, Hct 41.0, MCV 81.8, MCH 25.5 L, MCHC 31.2 L, RDW Std Deviation 45.7 H, RDW Coeff of Remigio 15.2 H, Plt Count 244, MPV 12.6 H, Immature Gran % (Auto) 0.300, Neut % (Auto) 66.8, Lymph % (Auto) 24.1, [place] % (Auto) 6.5, Eos % (Auto) 2.0, Baso % (Auto) 0.3, Absolute Neuts (auto) 7.8 H, Absolute Lymphs (auto) 2.79, Nucleated RBC % 0 06/15/21 22:30: D-Dimer Quant (PE/DVT) <= 0.27 06/15/21 22:30: Sodium 141, Potassium 3.8, Chloride 107, Carbon Dioxide 27.0, Anion Gap 7, BUN 16, Creatinine 0.80, Estim Creat Clear Calc 99.99, Est GFR (MDRD) Af Amer 108, Est GFR (MDRD) Non-Af 89, BUN/Creatinine Ratio 19.9, Glucose 100, Calcium 9.1, Troponin I High Sens 6, TSH 3.47 06/15/21 22:30: Serum , Qual NEGATIVE 06/15/21 23:55: Urine Color Yellow, Urine Clarity Clear, Urine pH 6.0, Ur Specific [place] 1.020, Urine Protein Negative, Urine Glucose (UA) Normal, Urine Ketones Negative, Urine Occult Blood Negative, Urine Nitrite Negative, Urine Bi lirubin Negative, Urine Urobilinogen Normal, Ur Leukocyte Esterase Negative, Urine RBC 0 SEEN, Urine WBC 0 SEEN, Ur Squamous Epith Cells 0 SEEN, Urine Bacteria RARE, Urine Mucus RARE 06/15/21 23:55: Urine Opiates Screen NEGATIVE, Urine Methadone Screen NEGATIVE, Ur Barbiturates Screen NEGATIVE, Ur Phencyclidine Scrn NEGATIVE, Ur Amphetamines Screen NEGATIVE, U Methamphetamin-MDMA NEGATIVE, U Benzodiazepines Scrn NEGATIVE, Urine Cocaine Screen NEGATIVE, U Cannabinoids Screen NEGATIVE, Ur Drug Screen Comment 06/16/21 01:52: Troponin I High Sens 7 06/16/21 03:14: WBC 11.1 H, RBC 4.49, Hgb 11.3 L, Hct 35.9 L, MCV 80.0 L, MCH 25.2 L, MCHC 31.5 L, RDW Std Deviation 44.0 H, RDW Coeff of Remigio 15.1 H, Plt Count 210, MPV 12.5 H, Immature Gran % (Auto) 0.200, Neut % (Auto) 61.2, Lymph % (Auto) 30.5, [place] % (Auto) 5.5, Eos % (Auto) 2.2, Baso % (Auto) 0.4, Absolute Neuts (auto) 6.8, Absolute Lymphs (auto) 3.40, Nucleated RBC % 0 06/16/21 03:14: Troponin I High Sens 8 06/16/21 06:38: POC Glucose 109 06/16/21 07:50: Sodium 139, Potassium 3.9, Chloride 109 H, Carbon Dioxide 25.0, Anion Gap 5, BUN 12, Creatinine 0.69, Estim Creat Clear Calc 115.93, Est GFR (MDRD) Af Amer 128, Est GFR (MDRD) Non-Af 106, BUN/Creatinine Ratio 17.4, Glucose 105, Calcium 8.4 L, Phosphorus 3.8, Magnesium 2.0, Total Bilirubin 0.30, AST 24, ALT 33, Alkaline Phosphatase 95, Troponin I High Sens 7, Total Protein 6.9, Albumin 2.7 L, Globulin 4.2, Albumin/Globulin Ratio 0.6 L 06/16/21 11:15: POC Glucose 97 Microbiology: Microbiology 06/15/21 22:40 Nasal Secretion SARS-CoV-2 Antigen (Rapid) - Final Radiography Diagnostic Testing: Radiology Impression Brain CT 06/15/21 22:20 IMPRESSION: No acute intracranial abnormality. Electronically Signed: Anselmo Diaz MD at 23:15 EDT Tel , Service support , Chest X-Ray 06/15/21 23:08 IMPRESSION: Normal x-ray examination of the chest. Electronically Signed: Chris Frost DO at 23:18 EDT Tel [phone], Service support , Echocardiogram 06/16/21 01:21 Interpretation Summary The estimated ejection fraction is 50 %. No evidence for diastolic dysfunction. There is mild global hypokinesis of the left ventricle. Ordering Physician: Hailey Lara Performed By: Cele Burton, RDCS D/C Instructions Discharge Diet: Carb Control Diet Call your doctor if you observe: Shortness of breath, Dizziness and Chest pain Meaningful Use Info Meaningful Use Diagnoses (Choose all that apply): None applicable Discharge Plan Admission Admit Date/Time: 06/15/21 23:56 Primary Reason for Your Visit: Syncope Attending Provider: Magali Garcia Consulting Providers: Jared Mendoza Instructions Additional Instructions / Restrictions: Recommend outpatient nuclear stress test which can be arranged by cardiology at follow up. Discharge Orders/Prescriptions Prescriptions: New metoprolol tartrate 25 mg Tablet 25 mg PO BID Qty: 60 RF: 0 Continued albuterol sulfate 2.5 mg /3 mL (0.083 %) solution for nebulization 2.5 mg inhalation Q4H RF: 0 metformin 500 mg tablet extended release 24 hr 1,000 mg PO DAILY RF: 0 aspirin 81 mg Capsule 81 mg PO DAILY RF: 0 promethazine 25 mg Tablet 25 mg PO Q6H PRN (Reason: Migraine Headache) RF: 0 folic acid 1 mg Tablet 1 mg PO DAILY RF: 0 gabapentin 100 mg Capsule 100 mg PO DAILY PRN (Reason: Migraine Headache) RF: 0 naproxen 500 mg Tablet 500 mg PO BID PRN (Reason: Migraine Headache) RF: 0 28-800 mg-mcg Tablet 1 tab PO DAILY RF: 0 Other Ambulatory Orders: 30-Day Event Recorder (Routine) Location: None Selected Ordered By: Milly Schilling NP Referrals / Follow Up: LUCIANA PARKER [Other] - In 1 Week Lev Santana NP, CUSTOMER RETENTION REPRESENTATIVE-C [Nurse Practitioner] - In 1 Week ([facility] CUSTOMER RETENTION REPRESENTATIVE/[place], first available) Disposition Disposition (needs filled in before D/C Order can be placed): Home, Self Care Documented by User: Dr. Magali Garcia MD 06/16/21 16:22 Providers Date of Admission: 06/15/21 Reason For Visit: TACHYCARDIA/SYNCOPE Medications at Discharge Home Medications 1 tab PO DAILY 06/15/21 albuterol sulfate 2.5 mg INHALATION Q4H 06/15/21 aspirin 81 mg PO DAILY 06/15/21 folic acid 1 mg PO DAILY 06/15/21 gabapentin 100 mg PO DAILY PRN 06/15/21 metformin 1,000 mg PO DAILY 06/15/21 naproxen 500 mg PO BID PRN 06/15/21 promethazine 25 mg PO Q6H PRN 06/15/21 metoprolol tartrate 25 mg PO BID #60 tab 06/16/21 ABG / Lab / Microbiology Data Result Diagrams: 06/16/21 03:14 06/16/21 07:50 Discharge Plan Admission Admit Date/Time: 06/15/21 23:56 Primary Reason for Your Visit: Syncope Attending Provider: Magali Garcia Consulting Providers: Jared Mendoza Instructions Additional Instructions / Restrictions: Recommend outpatient nuclear stress test which can be arranged by cardiology at follow up. Discharge Orders/Prescriptions Prescriptions: New metoprolol tartrate 25 mg Tablet 25 mg PO BID Qty: 60 RF: 0 Continued albuterol sulfate 2.5 mg /3 mL (0.083 %) solution for nebulization 2.5 mg inhalation Q4H RF: 0 metformin 500 mg tablet extended release 24 hr 1,000 mg PO DAILY RF: 0 aspirin 81 mg Capsule 81 mg PO DAILY RF: 0 promethazine 25 mg Tablet 25 mg PO Q6H PRN (Reason: Migraine Headache) RF: 0 folic acid 1 mg Tablet 1 mg PO DAILY RF: 0 gabapentin 100 mg Capsule 100 mg PO DAILY PRN (Reason: Migraine Headache) RF: 0 naproxen 500 mg Tablet 500 mg PO BID PRN (Reason: Migraine Headache) RF: 0 28-800 mg-mcg Tablet 1 tab PO DAILY RF: 0 Other Ambulatory Orders: 30-Day Event Recorder (Routine) Location: None Selected Ordered By: Milly Schilling NP Referrals / Follow Up: LUCIANA PARKER [Other] - In 1 Week Lev Santana NP, CUSTOMER RETENTION REPRESENTATIVE-C [Nurse Practitioner] - In 1 Week ([facility] CUSTOMER RETENTION REPRESENTATIVE/[place], first available) Disposition Disposition (needs filled in before D/C Order can be placed): Home, Self Care Charges/Coding Addendum Addendum: Patient seen by Milly BENNETT under my supervision Patient is a 31-year-old female with a past medical history as outlined was admitted through the ED with a complaint of palpitations and syncope. She had an episode of syncope in the ED on admission. She was also noted in the ED to have possible V. tach. She admitted to getting lightheaded if she sat up too quickly. She does have a history of insulin resistance as well as migraines and asthma. She was admitted to be managed for syncope and arrhythmia. Cardiology was consulted. She had a 2D echo which showed EF of 50%. Per cardiology, it was reasonable to discharge patient on a 30-day event monitor to be done on outpatient basis and also do an outpatient nuclear stress test. Telemetry in the hospital remained unremarkable except for rare PVCs and electrolytes are within normal limits. Patient remained stable and was discharged as per cardiology recommendation to have outpatient stress test and 30-day event monitor. She is to follow-up with her primary care doctor and follow-up with cardiology. She was started on metoprolol 25 mg twice daily. Patient seen and examined prior to discharge. She felt well and had no active complaints. His symptoms had not recurred since admission. Review of systems otherwise negative. Labs and vitals reviewed. Medication reviewed and reconciled. O/E: Const alert, oriented x3 and no apparent distress, super morbid obesity Orientation / Consciousness: awake, oriented to person, oriented to place and oriented to time HEENT normocephalic and moist oral mucous membranes Eyes PERRL, EOMs intact bilaterally and conjunctivae normal Neck no lymphadenopathy Resp normal respiratory effort and clear to auscultation bilaterally Cardio regular rate, regular rhythm and no murmurs Peripheral Pulses: pulses 2+ throughout GI normal to inspection, nondistended, normoactive bowel sounds, non-tender and non-distended Extremity normal to inspection Skin no rashes or lesions noted Lesions: no lesions Rashes: no rashes Trauma: no lacerations or abrasions Neuro CN's II-XII intact bilaterally, no focal motor deficits, no sensory deficits noted and deep tendon reflexes 2+ bilaterally Psych mental status grossly normal and affect normal Rest as per DONALD Arnett's note which I have reviewed and endorsed. Visit Charges OBSV E&M: 61593 Observation care discharge
--- NOTE | 2021-06-16 15:26 | PCM.CONS.C ---
Assessment & Plan Assessment/Plan (1) Syncope: QUALIFIERS: Syncope type: unspecified Qualified Code(s): R55 - Syncope and collapse PLAN: Appears vasovagal. Her echo shows an EF of around 50%. It will be reasonable to do a 30-day event monitor as an outpatient. An outpatient nuclear stress test is also reasonable. Her telemetry has remained unremarkable except for rare PVCs. Advised patient to stay well-hydrated and to lie down immediately if she has any prodromal symptoms. She can be discharged home from a cardiac standpoint. Follow-up with cardiology as outpatient. (2) Tachycardia: PLAN: No significant SVT, V. tach etc. Patient has sinus tachycardia on presentation. Will monitor. HPI Consult Data Date of Consult: 06/16/21 HPI Narrative Reason for Consultation: Syncope HPI Narrative: AMBIKA BROWN, is a 31 F who presents with symptoms of palpitations and syncope. Apparently patient had an episode of syncope in the ER while she was being monitored. She did not have any arrhythmias at this time. She had another episode of syncope while in the PCU early this morning. There were no arrhythmias on telemetry at that time either. She has no prior history of syncope. She gets a little lightheaded if she gets up too quickly. However all 3 episodes of syncope happened when she was either lying in bed or sitting. She does have prodromal symptoms. She denies any chest pain or shortness of breath. Review of systems: All systems reviewed. All else is negative except that in HPI. [facility] Medical History History of asthma History of lupus anticoagulant disorder Insulin resistance Migraines Home Medications 1 tab PO DAILY 06/15/21 [History Last Taken 06/15/21] albuterol sulfate 2.5 mg INHALATION Q4H 06/15/21 [History Last Taken Unknown] aspirin 81 mg PO DAILY 06/15/21 [History Last Taken 06/15/21] folic acid 1 mg PO DAILY 06/15/21 [History Last Taken 06/15/21] gabapentin 100 mg PO DAILY PRN 06/15/21 [History Last Taken 06/10/21] metformin 1,000 mg PO DAILY 06/15/21 [History Last Taken 06/15/21] naproxen 500 mg PO BID PRN 06/15/21 [History Last Taken 06/10/21] promethazine 25 mg PO Q6H PRN 06/15/21 [History Last Taken 06/10/21] metoprolol tartrate 25 mg PO BID #60 tab 06/16/21 [Rx Last Taken Unknown] Allergy/AdvReac Type Severity Reaction Status Date / Time prochlorperazine Allergy Other Verified 06/16/21 01:32 [From Compazine] Family History Mother Cancer Thyroid disorder Father Heart disease Surgical History History of cholecystectomy History of tonsillectomy Social History Smoking Status: Never smoker Physical Exam Const alert and oriented x3 Orientation / Consciousness: awake HEENT normocephalic Eyes no scleral icterus Neck supple Resp normal respiratory effort Cardio regular rate, regular rhythm, S1 normal heart sound and S2 normal heart sound Extremity no pedal edema Skin no rashes or lesions noted Charges/Coding Visit Charges Inpatient E&M: 36237 Init Hosp L2 Objective Data Vital Signs: Vital Signs Temp Pulse Resp BP Pulse Ox 98.2 F 71 18 143/81 H 99 06/16/21 15:00 06/16/21 15:00 06/16/21 15:00 06/16/21 15:00 06/16/21 15:00 Oxygen Delivery Method Room Air Weight: 328 lb 0.765 oz Body Mass Index (BMI) 51.3 Intake & Output: Intake and Output for Last 24 Hours 06/14/21 06/15/21 06/16/21 23:59 23:59 23:59 Intake Total 1000 / 1000 150 / 150 Balance 1000 / 1000 150 / 150 Lab / Micro Data Result Diagrams: 06/16/21 03:14 06/16/21 07:50 Labs: Laboratory Results - last 24 hr 06/15/21 22:30: WBC 11.6 H, RBC 5.01, Hgb 12.8, Hct 41.0, MCV 81.8, MCH 25.5 L, MCHC 31.2 L, RDW Std Deviation 45.7 H, RDW Coeff of Remigio 15.2 H, Plt Count 244, MPV 12.6 H, Immature Gran % (Auto) 0.300, Neut % (Auto) 66.8, Lymph % (Auto) 24.1, [place] % (Auto) 6.5, Eos % (Auto) 2.0, Baso % (Auto) 0.3, Absolute Neuts (auto) 7.8 H, Absolute Lymphs (auto) 2.79, Nucleated RBC % 0 06/15/21 22:30: D-Dimer Quant (PE/DVT) <= 0.27 06/15/21 22:30: Sodium 141, Potassium 3.8, Chloride 107, Carbon Dioxide 27.0, Anion Gap 7, BUN 16, Creatinine 0.80, Estim Creat Clear Calc 99.99, Est GFR (MDRD) Af Amer 108, Est GFR (MDRD) Non-Af 89, BUN/Creatinine Ratio 19.9, Glucose 100, Calcium 9.1, Troponin I High Sens 6, TSH 3.47 06/15/21 22:30: Serum , Qual NEGATIVE 06/15/21 23:55: Urine Color Yellow, Urine Clarity Clear, Urine pH 6.0, Ur Specific [place] 1.020, Urine Protein Negative, Urine Glucose (UA) Normal, Urine Ketones Negative, Urine Occult Blood Negative, Urine Nitrite Negative, Urine Bilirubin Negative, Urine Urobilinogen Normal, Ur Leukocyte Esterase Negative, Urine RBC 0 SEEN, Urine WBC 0 SEEN, Ur Squamous Epith Cells 0 SEEN, Urine Bacteria RARE, Urine Mucus RARE 06/15/21 23:55: Urine Opiates Screen NEGATIVE, Urine Methadone Screen NEGATIVE, Ur Barbiturates Screen NEGATIVE, Ur Phencyclidine Scrn NEGATIVE, Ur Amphetamines Screen NEGATIVE, U Methamphetamin-MDMA NEGATIVE, U Benzodiazepines Scrn NEGATIVE, Urine Cocaine Screen NEGATIVE, U Cannabinoids Screen NEGATIVE, Ur Drug Screen Comment 06/16/21 01:52: Troponin I High Sens 7 06/16/21 03:14: WBC 11.1 H, RBC 4.49, Hgb 11.3 L, Hct 35.9 L, MCV 80.0 L, MCH 25.2 L, MCHC 31.5 L, RDW Std Deviation 44.0 H, RDW Coeff of Remigio 15.1 H, Plt Count 210, MPV 12.5 H, Immature Gran % (Auto) 0.200, Neut % (Auto) 61.2, Lymph % (Auto) 30.5, [place] % (Auto) 5.5, Eos % (Auto) 2.2, Baso % (Auto) 0.4, Absolute Neuts (auto) 6.8, Absolute Lymphs (auto) 3.40, Nucleated RBC % 0 06/16/21 03:14: Troponin I High Sens 8 06/16/21 06:38: POC Glucose 109 06/16/21 07:50: Sodium 139, Potassium 3.9, Chloride 109 H, Carbon Dioxide 25.0, Anion Gap 5, BUN 12, Creatinine 0.69, Estim Creat Clear Calc 115.93, Est GFR (MDRD) Af Amer 128, Est GFR (MDRD) Non-Af 106, BUN/Creatinine Ratio 17.4, Glucose 105, Calcium 8.4 L, Phosphorus 3.8, Magnesium 2.0, Total Bilirubin 0.30, AST 24, ALT 33, Alkaline Phosphatase 95, Troponin I High Sens 7, Total Protein 6.9, Albumin 2.7 L, Globulin 4.2, Albumin/Globulin Ratio 0.6 L 06/16/21 11:15: POC Glucose 97 Micro: Microbiology 06/15/21 22:40 Nasal Secretion SARS-CoV-2 Antigen (Rapid) - Final Cardiology Labs/Tests 06/15/21 22:30: WBC 11.6 H, RBC 5.01, Hgb 12.8, Hct 41.0, MCV 81.8, MCH 25.5 L, MCHC 31.2 L, Plt Count 244, MPV 12.6 H, Immature Gran % (Auto) 0.300, Neut % (Auto) 66.8, Lymph % (Auto) 24.1, [place] % (Auto) 6.5, Eos % (Auto) 2.0, Baso % (Auto) 0.3, Absolute Neuts (auto) 7.8 H, Nucleated RBC % 0 06/15/21 22:30: D-Dimer Quant (PE/DVT) <= 0.27 06/15/21 22:30: Sodium 141, Potassium 3.8, Chloride 107, Carbon Dioxide 27.0, Anion Gap 7, BUN 16, Creatinine 0.80, Est GFR (MDRD) Af Amer 108, Est GFR (MDRD) Non-Af 89, BUN/Creatinine Ratio 19.9, Glucose 100, Calcium 9.1 06/15/21 23:55: Urine Color Yellow, Urine Clarity Clear, Urine pH 6.0, Ur Specific [place] 1.020, Urine Protein Negative, Urine Glucose (UA) Normal, Urine Ketones Negative, Urine Occult Blood Negative, Urine Nitrite Negative, Urine Bilirubin Negative, Urine Urobilinogen Normal, Ur Leukocyte Esterase Negative, Urine RBC 0 SEEN, Urine WBC 0 SEEN 06/16/21 03:14: WBC 11.1 H, RBC 4.49, Hgb 11.3 L, Hct 35.9 L, MCV 80.0 L, MCH 25.2 L, MCHC 31.5 L, Plt Count 210, MPV 12.5 H, Immature Gran % (Auto) 0.200, Neut % (Auto) 61.2, Lymph % (Auto) 30.5, [place] % (Auto) 5.5, Eos % (Auto) 2.2, Baso % (Auto) 0.4, Absolute Neuts (auto) 6.8, Nucleated RBC % 0 06/16/21 07:50: Sodium 139, Potassium 3.9, Chloride 109 H, Carbon Dioxide 25.0, Anion Gap 5, BUN 12, Creatinine 0.69, Est GFR (MDRD) Af Amer 128, Est GFR (MDRD) Non-Af 106, BUN/Creatinine Ratio 17.4, Glucose 105, Calcium 8.4 L, Phosphorus 3.8, Magnesium 2.0, Total Bilirubin 0.30 Rhythm: EKG: ECHO: Stress Test: Cardiac Cath: PCI: CT Surgery: Holter monitor: EPS: PPM: CXR: Chest CT Scan: Radiography Diagnostic Testing: Radiology Impression Brain CT 06/15/21 22:20 IMPRESSION: No acute intracranial abnormality. Electronically Signed: Anselmo Diaz MD at 23:15 EDT Tel , Service support , Chest X-Ray 06/15/21 23:08 IMPRESSION: Normal x-ray examination of the chest. Electronically Signed: Chris Frost DO at 23:18 EDT Tel [phone], Service support , Echocardiogram 06/16/21 01:21 Interpretation Summary The estimated ejection fraction is 50 %. No evidence for diastolic dysfunction. There is mild global hypokinesis of the left ventricle. Ordering Physician: Hailey Lara Performed By: Cele Burton RDCS
--- NOTE | 2021-06-16 15:31 | NURSING ---
This RN taking over care @ [phone]. RN resuming care of patient @ [phone]
[2021-06-16] MEDS: Acetaminophen 325 MG Tablet 650 MG PO (17:32)
[2021-06-17] VITALS (7 sets, daily range): BP systolic 109–111; BP diastolic 64–79; PULSE 66–75; RESP 16–18; TEMP 36.6; O2SAT 94–96
--- NOTE | 2021-06-17 03:49 | NURSING ---
Pt resting in bed. denies needs at this time.
--- NOTE | 2021-06-17 05:55 | EKG12_ITS ---
Test Reason : AM EKG Blood Pressure : / mmHG Vent. Rate : 075 BPM Atrial Rate : 075 BPM P-R Int : 182 ms QRS Dur : 084 ms QT Int : 432 ms P-R-T Axes : 029 030 042 degrees QTc Int : 482 ms Sinus rhythm with occasional Premature ventricular complexes Prolonged QT Abnormal ECG When compared with ECG of 15-JUN-2021 22:17, MANUAL COMPARISON REQUIRED, DATA IS UNCONFIRMED Confirmed by JARRELL GALEANO, ALLI ([id number]), staff editor AMBIKA TELLO ([id number]) on 06/21/2021 9:52:56 AM Referred By: LUIS Confirmed By:ALLI VIEYRA MD
[2021-06-17] MEDS: Aspirin 81 MG TAB.CHEW PO (06:00)
--- NOTE | 2021-06-17 06:44 | NURSING ---
Pt scheduled for stress test at 0710. cup of water given at this time.
[2021-06-17 06:45] LABS: Bedside Glucose 117 mg/dL (70-110)
[2021-06-17] MEDS: Prenatal Vits Tablet 1 TABLET PO (09:27)
[2021-06-17] MEDS: Metoprolol Tartrate 25 MG Tablet PO (09:27)
[2021-06-17] MEDS: Folic Acid 1 MG Tablet PO (09:27)
[2021-06-17] MEDS: Acetaminophen 325 MG Tablet 650 MG PO (11:03)
[2021-06-17 11:10] LABS: Bedside Glucose 104 mg/dL (70-110)
--- NOTE | 2021-06-17 12:23 | STRESSREP ---
Stress Test Report Date: 06/17/2021 Procedure: Pharmacologic stress nuclear imaging study Indications: Syncope Consent: Per the patient Procedure: The patient underwent pharmacologic (Regadenoson) evaluation with a peak heart rate of 123 beats per minute (64%predicted maximal heart rate) and a peak blood pressure of 148/80 mmHg. The baseline ECG demonstrated normal sinus rhythm. EKG during lexiscan infusion revealed no significant ischemic changes. EKG post infusion revealed no significant ischemic changes [There were no cardiac dysrhythmias pretest, during pharmacologic infusion, or recovery]. [There was no complaint of chest discomfort during pharmacologic infusion or recovery]. The examination was discontinued secondary to completion of protocol. Impression: 1. Lexiscan stress test test is negative for Lexiscan infusion induced EKG changes of ischemia. 2. Lexiscan stress test test is negative for Lexiscan infusion induced chest pain. 3. Results of the nuclear portion of the test is as below Myocardial perfusion imaging study: Technique: The patient was injected with 14.9 millicuries of technetium 99m Cardiolite and subsequently rest SPECT Cardiolite nuclear imaging was obtained in the horizontal long, vertical long, and short axis views. The patient underwent pharmacologic [Regadenoson 0.4mg] evaluation. Please see above for details. The patient was injected with 44.7 millicuries of technetium 99m Cardiolite and subsequently stress SPECT Cardiolite nuclear imaging was obtained in the horizontal long, vertical long, and short axis views. A gated Cardiolite study at peak stress was obtained. Interpretation: Rest and stress SPECT Cardiolite nuclear imaging status post realignment, normalization, and attenuation correction demonstrate no evidence of significant ischemia or infarction. Gated images reveal no significant regional wall motion abnormalities. The reported LVEF is 55%. Impression: 1. There is no evidence of significant ischemia or infarction. 2. Estimated ejection fraction is 55%. This note was generated with [employer] software. It may contain incorrect words, spelling, and punctuation that were not noted in checking the note before signing.
--- NOTE | 2021-06-17 12:53 | PCM.DC ---
Discharge Instructions Diet Discharge Diet: Carb Control Diet Dressing / Incision Call your doctor if you observe: Shortness of breath, Dizziness and Chest pain Follow Up Care Test Results: Test results from this visit will be discussed in further detail at your follow-up appointment, if applicable. Discharge Plan Admission Admit Date/Time: 06/15/21 23:56 Primary Reason for Your Visit: Syncope Attending Provider: Magali Garcia Consulting Providers: Jared Mendoza Instructions Additional Instructions / Restrictions: Patient Problems: Altered Health Status related to Hospitalization Patient Goals: *Optimal Level of Health *Keep Appointments *Medication Compliance *Remain Safe Discharge Orders/Prescriptions Prescriptions: New metoprolol tartrate 25 mg Tablet 25 mg PO BID Qty: 60 RF: 0 Continued albuterol sulfate 2.5 mg /3 mL (0.083 %) solution for nebulization 2.5 mg inhalation Q4H RF: 0 metformin 500 mg tablet extended release 24 hr 1,000 mg PO DAILY RF: 0 aspirin 81 mg Capsule 81 mg PO DAILY RF: 0 promethazine 25 mg Tablet 25 mg PO Q6H PRN (Reason: Migraine Headache) RF: 0 folic acid 1 mg Tablet 1 mg PO DAILY RF: 0 gabapentin 100 mg Capsule 100 mg PO DAILY PRN (Reason: Migraine Headache) RF: 0 naproxen 500 mg Tablet 500 mg PO BID PRN (Reason: Migraine Headache) RF: 0 28-800 mg-mcg Tablet 1 tab PO DAILY RF: 0 Other Ambulatory Orders: 30-Day Event Recorder (Routine) Location: None Selected Ordered By: Milly Schilling NP Cardiac Holter Monitor/Day (Routine) Location: None Selected Ordered By: Milly Schilling NP Referrals / Follow Up: LUCIANA PARKER [Other] - In 1 Week Lev Santana NP, [employer]-C [Nurse Practitioner] - Within 1 Month ([facility] [employer] WORK[facility]/[place], first available) Disposition Disposition (needs filled in before D/C Order can be placed): Home, Self Care
--- NOTE | 2021-06-17 12:54 | DS.PCM_ITS ---
Documented by User: Milly Schilling NP, [employer] 06/17/21 13:00 Providers Date of Admission: 06/16/21 Date of Discharge: 06/17/21 Primary Care Physician: LUCIANA PARKER Consultations 06/16/21 09:20 Consult: Cardiology Routine Consulting Provider: Jared Mendoza Reason for Consult: Syncope, vtach EMERGENT Consult: No MD Notified: Yes Date Notified: 06/16/21 Time Notified: 09:20 Method of Notification: Text Reason For Visit: TACHYCARDIA/SYNCOPE Diagnosis Discharge Diagnosis (1) Syncope: Status: Acute Code(s): R55 - Syncope and collapse Qualifiers: Syncope type: unspecified Qualified Code(s): R55 - Syncope and collapse (2) Tachycardia: Status: Acute Code(s): R00.0 - Tachycardia, unspecified Medications at Discharge Home Medications 1 tab PO DAILY 06/15/21 albuterol sulfate 2.5 mg INHALATION Q4H 06/15/21 aspirin 81 mg PO DAILY 06/15/21 folic acid 1 mg PO DAILY 06/15/21 gabapentin 100 mg PO DAILY PRN 06/15/21 metformin 1,000 mg PO DAILY 06/15/21 naproxen 500 mg PO BID PRN 06/15/21 promethazine 25 mg PO Q6H PRN 06/15/21 metoprolol tartrate 25 mg PO BID #60 tab 06/16/21 Hospital Course Operations None Procedures Stress test Summary of Care Provided Minutes Spent on Discharge: 35 Hospital Course: Patient is a 31-year-old female admitted 06/16/2021 due to syncope. 1. Vasovagal syncope-Echocardiogram completed and demonstrated an EF of 50%. TSH, mag, K normal. Orthostatic vitals negative. Cardiology consulted given V. tach with associated symptoms. Brain CT unremarkable. Troponin negative. Discussed with cardiology who recommends 30-day event monitor at discharge. Patient underwent nuclear stress test which was negative for ischemia. Follow- up with PCP in 1 week. Follow-up with cardiology in 1 month. 2. Tachycardia/nonsustained V. tach-no further episodes of V. tach during admission. Initiated on metoprolol 25 mg twice daily. Patient noted to have 2- 3 beat runs of V. tach in ER on 2 separate occasions. Continue metoprolol at discharge. 30-day event monitor at discharge with further cardiology follow-up. Patient is very anxious about not having monitor set up at discharge as 30-day event monitor is shipped to home. Will order 48-hour monitor to go home with in the interim. Follow-up with cardiology following completion of event monitor. 3. Insulin resistance-on Metformin. 4. Morbid obesity-encouraged diet and lifestyle modifications. 5. Chronic intermittent asthma-no exacerbation. Physical Exam Const alert, oriented x3 and no apparent distress Orientation / Consciousness: awake, oriented to person, oriented to place and oriented to time HEENT normocephalic and moist oral mucous membranes Eyes PERRL, EOMs intact bilaterally and conjunctivae normal Neck no lymphadenopathy Resp normal respiratory effort and clear to auscultation bilaterally Cardio regular rate, regular rhythm and no murmurs Peripheral Pulses: pulses 2+ throughout GI normal to inspection, nondistended, normoactive bowel sounds, non-tender and non-distended Extremity normal to inspection Skin no rashes or lesions noted Lesions: no lesions Rashes: no rashes Trauma: no lacerations or abrasions Neuro CN's II-XII intact bilaterally, no focal motor deficits, no sensory deficits noted and deep tendon reflexes 2+ bilaterally Psych mental status grossly normal and affect normal Patient seen and examined prior to discharge. Physical assessment as noted above. Patient is stable for discharge with follow up recommendations as noted above. This patient was seen by DONALD Arnett under the supervision of Dr. Garcia. Weight / BMI Weight Weight: 328 lb 0.765 oz Body Mass Index (BMI) 51.3 ABG / Lab / Microbiology Data Result Diagrams: 06/16/21 03:14 06/16/21 07:50 Laboratory: Laboratory Results - last 24 hr 06/17/21 06:17: POC Glucose 117 H 06/17/21 11:00: POC Glucose 104 Microbiology: Microbiology 06/15/21 22:40 Nasal Secretion SARS-CoV-2 Antigen (Rapid) - Final Radiography Diagnostic Testing: Radiology Impression Echocardiogram 06/16/21 01:21 Interpretation Summary The estimated ejection fraction is 50 %. No evidence for diastolic dysfunction. There is mild global hypokinesis of the left ventricle. Ordering Physician: Hailey Lara Performed By: Cele Burton RDCS D/C Instructions Discharge Diet: Carb Control Diet Call your doctor if you observe: Shortness of breath, Dizziness and Chest pain Meaningful Use Info Meaningful Use Diagnoses (Choose all that apply): None applicable Discharge Plan Admission Admit Date/Time: 06/15/21 23:56 Primary Reason for Your Visit: Syncope Attending Provider: Magali Garcia Consulting Providers: Jared Mendoza Instructions Additional Instructions / Restrictions: Patient Problems: Altered Health Status related to Hospitalization Patient Goals: *Optimal Level of Health *Keep Appointments *Medication Compliance *Remain Safe Discharge Orders/Prescriptions Prescriptions: New metoprolol tartrate 25 mg Tablet 25 mg PO BID Qty: 60 RF: 0 Continued albuterol sulfate 2.5 mg /3 mL (0.083 %) solution for nebulization 2.5 mg inhalation Q4H RF: 0 metformin 500 mg tablet extended release 24 hr 1,000 mg PO DAILY RF: 0 aspirin 81 mg Capsule 81 mg PO DAILY RF: 0 promethazine 25 mg Tablet 25 mg PO Q6H PRN (Reason: Migraine Headache) RF: 0 folic acid 1 mg Tablet 1 mg PO DAILY RF: 0 gabapentin 100 mg Capsule 100 mg PO DAILY PRN (Reason: Migraine Headache) RF: 0 naproxen 500 mg Tablet 500 mg PO BID PRN (Reason: Migraine Headache) RF: 0 28-800 mg-mcg Tablet 1 tab PO DAILY RF: 0 Other Ambulatory Orders: 30-Day Event Recorder (Routine) Location: None Selected Ordered By: Milly Schilling NP Cardiac Holter Monitor, Set-Up (Routine) Location: None Selected Ordered By: Milly Schilling NP Referrals / Follow Up: LUCIANA PARKER [Other] - In 1 Week Lev Santana NP, [employer] [Nurse Practitioner] - Within 1 Month ([facility] [employer], first available) Disposition Disposition (needs filled in before D/C Order can be placed): Home, Self Care Documented by User: Dr. Magali Garcia MD 06/17/21 15:52 Providers Date of Admission: 06/15/21 Reason For Visit: TACHYCARDIA/SYNCOPE Medications at Discharge Home Medications 1 tab PO DAILY 06/15/21 albuterol sulfate 2.5 mg INHALATION Q4H 06/15/21 aspirin 81 mg PO DAILY 06/15/21 folic acid 1 mg PO DAILY 06/15/21 gabapentin 100 mg PO DAILY PRN 06/15/21 metformin 1,000 mg PO DAILY 06/15/21 naproxen 500 mg PO BID PRN 06/15/21 promethazine 25 mg PO Q6H PRN 06/15/21 metoprolol tartrate 25 mg PO BID #60 tab 06/16/21 ABG / Lab / Microbiology Data Result Diagrams: 06/16/21 03:14 06/16/21 07:50 Discharge Plan Admission Admit Date/Time: 06/15/21 23:56 Primary Reason for Your Visit: Syncope Attending Provider: Magali Garcia Consulting Providers: Jared Mendoza Instructions Additional Instructions / Restrictions: Patient Problems: Altered Health Status related to Hospitalization Patient Goals: *Optimal Level of Health *Keep Appointments *Medication Compliance *Remain Safe Discharge Orders/Prescriptions Prescriptions: New metoprolol tartrate 25 mg Tablet 25 mg PO BID Qty: 60 RF: 0 Continued albuterol sulfate 2.5 mg /3 mL (0.083 %) solution for nebulization 2.5 mg inhalation Q4H RF: 0 metformin 500 mg tablet extended release 24 hr 1,000 mg PO DAILY RF: 0 aspirin 81 mg Capsule 81 mg PO DAILY RF: 0 promethazine 25 mg Tablet 25 mg PO Q6H PRN (Reason: Migraine Headache) RF: 0 folic acid 1 mg Tablet 1 mg PO DAILY RF: 0 gabapentin 100 mg Capsule 100 mg PO DAILY PRN (Reason: Migraine Headache) RF: 0 naproxen 500 mg Tablet 500 mg PO BID PRN (Reason: Migraine Headache) RF: 0 28-800 mg-mcg Tablet 1 tab PO DAILY RF: 0 Other Ambulatory Orders: 30-Day Event Recorder (Routine) Location: None Selected Ordered By: Milly Schilling NP Cardiac Holter Monitor, Set-Up (Routine) Location: None Selected Ordered By: Milly Schilling NP Referrals / Follow Up: LUCIANA PARKER [Other] - In 1 Week Lev Santana NP, [employer] [Nurse Practitioner] - Within 1 Month ([facility] [employer]/[place], first available) Disposition Disposition (needs filled in before D/C Order can be placed): Home, Self Care Charges/Coding Addendum Addendum: Patient seen by Milly BENNETT under my supervision Patient seen by Milly BENNETT under my supervision Patient is a 31-year-old female with a past medical history as outlined was admitted through the ED with a complaint of palpitations and syncope. She had an episode of syncope in the ED on admission. She was also noted in the ED to have possible V. tach. She admitted to getting lightheaded if she sat up too quickly. She does have a history of insulin resistance as well as migraines and asthma. She was admitted to be managed for syncope and arrhythmia. Cardiology was consulted. She had a 2D echo which showed EF of 50%. Per cardiology, it was reasonable to discharge patient on a 30-day event monitor to be done on outpatient basis and also do an outpatient nuclear stress test. Telemetry in the hospital remained unremarkable except for rare PVCs and electrolytes are within normal limits. Plan was to discharge patient on 06/16/2021 but patient was not comfortable with discharge. She had a stress test on 06/17/2021 which was negative for any evidence of ischemia. Patient remained stable and was discharged as per cardiology recommendation to have outpatient stress test and 30-day event monitor. She is to follow-up with her primary care doctor and follow-up with cardiology. She was started on metoprolol 25 mg twice daily. Patient was also put on a 48-hour Holter monitor and is to have an event monitor center results of which are to be sent to cardiology. Patient seen and examined prior to discharge. She felt well and had no active complaints. His symptoms had not recurred since admission. Review of systems otherwise negative. Labs and vitals reviewed. Medication reviewed and reconciled. O/E: Const alert, oriented x3 and no apparent distress, super morbid obesity Orientation / Consciousness: awake, oriented to person, oriented to place and oriented to time HEENT normocephalic and moist oral mucous membranes Eyes PERRL, EOMs intact bilaterally and conjunctivae normal Neck no lymphadenopathy Resp normal respiratory effort and clear to auscultation bilaterally Cardio regular rate, regular rhythm and no murmurs Peripheral Pulses: pulses 2+ throughout GI normal to inspection, nondistended, normoactive bowel sounds, non-tender and non-distended Extremity normal to inspection Skin no rashes or lesions noted Lesions: no lesions Rashes: no rashes Trauma: no lacerations or abrasions Neuro CN's II-XII intact bilaterally, no focal motor deficits, no sensory deficits noted and deep tendon reflexes 2+ bilaterally Psych mental status grossly normal and affect normal Rest as per Milly Schilling NP-C's note which I have reviewed and endorsed. Visit Charges OBSV E&M: 29008 Observation care discharge
== END 2021-06-17 11:42 | disposition home or self-care (01) ==
LOC: ED 06-16 00:03 → PCU 06-16 00:17
PROVIDERS: Admitting Provider Internal Medicine; Emergency Provider Emergency Medicine; Visit Provider Student in an Organized Health Care Education/Training Program
DX: R55 Syncope and collapse (principal); R00.2 Palpitations; I49.3 Ventricular premature depolarization; I47.2 Ventricular tachycardia; E88.81 Metabolic syndrome and other insulin resistance; G43.909 Migraine, unspecified, not intractable, without status migrainosus; D68.62 Lupus anticoagulant syndrome; E66.01 Morbid (severe) obesity due to excess calories; Z68.43 Body mass index [BMI] 50.0-59.9, adult; J45.20 Mild intermittent asthma, uncomplicated; Z79.899 Other long term (current) drug therapy; Z79.82 Long term (current) use of aspirin; Z79.84 Long term (current) use of oral hypoglycemic drugs
CPT/HCPCS: 36415; 70450; 71045; 78452; 80048; 80053; 80307; 81001; 82962; 83735; 84100; 84443; 84484; 84703; 85025; 85379; 87426; 93005; 93017; 93225; 93226; 93306; 96360; 96372; 99218; 99285; A9500; J7030; Q9957; A4216; C8929; G0378; J2785; J3490

== ENCOUNTER → 2021-06-17 14:48 | Outpatient (CLI) | payer MEDICAID, SELFPAY | PROVIDERS: Visit Provider Student in an Organized Health Care Education/Training Program | DX: R00.0 Tachycardia, unspecified (principal) | CPT/HCPCS: 93225; 93226 ==

== ENCOUNTER 2021-07-13 00:17 | Emergency (ER) | payer MEDICAID, SELFPAY ==
[2021-07-13 00:17] VITALS: BP 152/89; PULSE 99; RESP 16; TEMP 36.8; O2SAT 100; BMI 52.4
--- NOTE | 2021-07-13 00:18 | RAD_ITS ---
STUDY: X-RAY CHEST REASON FOR EXAM: Female, 31 years old. dyspnea TECHNIQUE: Single AP portable view of the chest. COMPARISON: 06/17/2021. FINDINGS: The lungs are clear and expanded. There is no demonstrated pleural abnormality. Normal size heart. Normal mediastinum and rolando. Normal visualized pulmonary arteries. Normal visualized aortic arch and descending thoracic aorta. Normal visualized thoracic spine. Normal visualized ribs, clavicles, and shoulders. There is no demonstrated abnormality of the visualized soft tissue structures of the upper abdomen. RAD/Chest 1 View (Portable) IMPRESSION: Normal x-ray examination of the chest. Electronically Signed: Jasmyne Marcos MD at 1:03 EDT , Service support ,
--- NOTE | 2021-07-13 00:19 | EKG12_ITS ---
Test Reason : CP Blood Pressure : / mmHG Vent. Rate : 096 BPM Atrial Rate : 096 BPM P-R Int : 166 ms QRS Dur : 082 ms QT Int : 386 ms P-R-T Axes : 044 032 038 degrees QTc Int : 487 ms Sinus rhythm with Premature supraventricular complexes Nonspecific T wave abnormality Prolonged QT Abnormal ECG Confirmed by GABRIEL GALEANO, MEI ([id number]), manuscript editor AMBIKA TELLO ([id number]) on 07/14/2021 8:59:13 AM Referred By: NOEL Confirmed By:MEI RIOS MD
[2021-07-13 00:22] VITALS: BP 152/89; PULSE 102; RESP 20; O2SAT 98
[2021-07-13 00:57] LABS: Anion Gap 5 (5-15); BUN 14 mg/dL (7-18); BUN/Creat Ratio 18.4 RATIO (10-20); Calcium,Total 8.5 mg/dL (8.5-10.1); Chloride 107 mmol/L (98-107); Creatinine, Serum 0.76 mg/dL (0.55-1.02); EST Glomerular Filtration Rate 95 mL/min (>60); Est Glom Filt Rate - Afr Amer 115 mL/min (>60); Estimated Creatinine Clearance 105.26 ml/min; Glucose 136 mg/dL (74-106); Potassium 3.6 mmol/L (3.5-5.1); Sodium Level 138 mmol/L (136-145); Troponin-I HS 6 pg/mL (3.0-54.0)
--- NOTE | 2021-07-13 01:14 | EDS_ITS ---
HPI History of Present Illness Chief Complaint: Palpitations Detail of Chief Complaint: Palpitations, shortness of breath, chest pressure and syncope Informant: patient and spouse/S.O. Onset/Context/Timing Onset: Hours (Per the hydroelectric mechanic at [facility] this occurred at 2300 Eastern standard time) Activity at onset: sudden and rest Timing: Intermittent Quality: Positive for Pressure and Tightness Location: Substernal Current Severity: Gone Maximum Severity: Moderate Worsened By: Nothing Relieved By: Nothing Associated Symptoms: Positive for Dyspnea, Lightheadedness and Palpitations; Negative for Nausea, Vomiting and Diaphoresis Narrative Narrative: Patient is a 31-year-old woman with history of palpitations and insulin resistance who presents after syncopal episode. She was contacted by the monitoring company and instructed to go to the emergency department. Patient had nonsustained V. tach with a rate of 195. Dr. Young was notified of these findings at 2315 and 2338. Patient informed that she has a appointment to see EP bondactor machine operator at [facility] on July 15. She presently feels slightly short of breath. She states her blood pressure goes up when this occurs. She denies history of PE or DVT. She denies history of coronary disease. She denies black or maroon-colored stool. She is not on an anticoagulant. Prior Similar Symptoms: Yes Recent Illness/Hospitalization: Yes (She was seen by Dr. Amber crabtree nurse practitioner who ordered the monitor) CVD Risk Factors: Positive for Diabetes; Negative for Hypertension, Hypercho lesterolemia, Family History 1' </=55 and Smoking PE Risk Factors: Negative for Recent Travel/Surgery, Recent Immobilization, Prior DVT or PE, Cancer and OCP + Smoking + >/=35 TAD Risk Factors: Negative for Marfan's Syndrome, Hypertension and Family History [facility] Medical History History of asthma History of lupus anticoagulant disorder Insulin resistance Migraines Home Medications 1 tab PO DAILY 06/15/21 [History Last Taken 06/15/21] folic acid 1 mg PO DAILY 06/15/21 [History Last Taken 06/15/21] gabapentin 100 mg PO DAILY PRN 06/15/21 [History Last Taken 06/10/21] metformin 1,000 mg PO DAILY 06/15/21 [History Last Taken 06/15/21] naproxen 500 mg PO BID PRN 06/15/21 [History Last Taken 06/10/21] promethazine 25 mg PO Q6H PRN 06/15/21 [History Last Taken 06/10/21] albuterol sulfate 2.5 mg INHALATION Q4H PRN 07/04/21 [History Last Taken Unknown] albuterol sulfate 90 mcg/actuation aerosol inhaler 2 puff INHALATION Q4H PRN g 07/04/21 [History Last Taken Unknown] aspirin 81 mg chewable tablet 162 mg PO DAILY tab 07/04/21 [History Last Taken Unknown] metoprolol tartrate 100 mg tablet 100 mg PO BID #60 tab 07/05/21 [Rx Last Taken Unknown] onabotulinumtoxinA [Botox] See Rx Instructions .ROUTE .COMPLEX 07/13/21 [History Last Taken Unknown] Allergy/AdvReac Type Severity Reaction Status Date / Time prochlorperazine Allergy Other Verified 07/13/21 00:23 [From Compazine] Family History Mother Cancer Thyroid disorder Father Heart disease Surgical History History of cholecystectomy History of tonsillectomy Social History (Updated 07/13/21 @ 01:[address] Dhiraj Quiroga MD) household members: spouse Smoking Status: Never smoker alcohol intake: never substance use type: does not use caffeine: Yes Type: coffee Number of servings: 2 ROS ROS ED Constitutional Constitutional ED: Denies chills, fever(s), subjective, sweats or weight loss Eyes Eyes: Denies blurry vision, change in vision or diplopia ENT ENT ED: Denies ear pain, rhinorrhea or sore throat Cardiovascular Cardiovascular: Reports as per HPI, chest pain, palpitations and racing heartbeat; Denies orthopnea or paroxysmal nocturnal dyspnea Respiratory/Chest Respiratory/Chest: Reports dyspnea; Denies cough, dyspnea on exertion, orthopnea, paroxysmal nocturnal dyspnea or sputum Gastrointestinal Gastrointestinal: Reports nausea; Denies abdominal pain, constipation, diarrhea or vomiting Genitourinary Genitourinary ED: Denies dysuria, hematuria or urinary frequency Musculoskeletal Musculoskeletal: Denies arthralgias, back pain, myalgias or neck pain Integumentary Denies rash Neurologic Neurologic: Denies paresthesias or weakness Hematologic/Lymphatic Hematologic/Lymphatic: Denies easy bleeding or easy bruising EXAM Physical Exam Const Vital Signs: 07/13/21 00:17 07/13/21 00:22 07/13/21 00:26 Temperature 98.2 F Temperature Source Temporal Pulse Rate 99 102 H Respiratory Rate 16 20 H Respiratory Effort Normal Respiratory Pattern Normal Blood Pressure 152/89 H 152/89 H Blood Pressure Mean 110 110 Pulse Ox 100 98 Oxygen Delivery Method Room Air 07/13/21 01:34 Temperature Temperature Source Pulse Rate Respiratory Rate 16 Respiratory Effort Respiratory Pattern Blood Pressure Blood Pressure Mean Pulse Ox Oxygen Delivery Method Positive well nourished, well developed and obese General Appearance ED: well developed; Negative for NAD or pallor Nutritional Appearance: obese HEENT Reports moist mucous membranes normocephalic and atraumatic Eyes PERRL and EOMs intact bilaterally General Eye ED: Negative for pale conjunctiva or scleral icterus Neck no lymphadenopathy, supple and no JVD Chest Wall palpation of chest normal Resp normal respiratory effort and clear to auscultation bilaterally Resp Narrative: Patient is tachypneic. Effort and Inspection: respiratory distress Cardio regular rate, regular rhythm, S1 normal heart sound, S2 normal heart sound and no murmurs GI normal to inspection, nondistended, normoactive bowel sounds, soft to palpation, non-tender and non-distended Back/Spine no CVA tenderness Extremity normal to inspection General Extremety ED: Negative for edema or tenderness General Extremity: Negative for edema Neuro oriented x3, CN's II-XII intact bilaterally and gait normal Sensorium / Orientation: awake and alert Motor Exam: strength 5/5 throughout Psych mental status grossly normal Skin no rashes or lesions noted and no wounds General Skin Exam: Negative for jaundice or pallor Heart Score History: Slightly/Non-Suspicious ECG: Normal Age: </= 45 years Risk Factors: 1 or 2 Risk Factors Troponin: </= Normal Limit Score: 1 MDM MDM MDM Narrative Medical decision making narrative: Patient presents with syncope and rapid heartbeat. According to the hydroelectric mechanic patient had nonsustained V. tach with a heart rate of 195. Awaiting official report. Reviewed hospital notes by bondactor machine operator and office notes by bondactor machine operator. Patient had an echo which revealed global hypokinesis and an EF of 50%. Nuclear stress test showed no evidence of cardiac ischemia. Estimated EF was 55%. Report from the monitoring service reveals nonsustained V. tach, 6 beats. Case was discussed with Dr. Amber Ch. In light of only 6 beats of V. tach a normal troponin a echocardiogram that reveals mild global hypokinesis with preserved EF and a normal stress nuclear test patient will be discharged to home with instructions to keep appointment with EP bondactor machine operator at [facility] for this coming July 15. Patient was informed when she has symptoms she is to push the button. She states I was not made clear to her. Lab Data Attestation: I reviewed the patient's lab results. Lab results narrative: Electrolyte panels are marked for glucose 136. Troponin is normal Labs: Laboratory Results - last 24 hr 07/13/21 00:30 Sodium 138 Potassium 3.6 Chloride 107 Carbon Dioxide 26.0 Anion Gap 5 BUN 14 Creatinine 0.76 Estim Creat Clear Calc 105.26 Est GFR (MDRD) Af Amer 115 Est GFR (MDRD) Non-Af 95 BUN/Creatinine Ratio 18.4 Glucose 136 H Calcium 8.5 Troponin I High Sens 6 Radiography Chest X-Ray - ED: 1 View, Read by ED Physician (Chest x-ray was interpreted by me at 0050), Normal, Lungs, Mediastinum, Bony Structures and No Acute Disease Diagnostic Testing: Clinical Impression(s) from Imaging Studies Chest X-Ray 07/13/21 00:18 IMPRESSION: Normal x-ray examination of the chest. Electronically Signed: Jasmyne Marcos MD at 1:03 EDT , Service support , EKG Initial EKG: Attestation: I personally reviewed and interpreted this EKG as follows: Interpretation: Sinus Rhythm (Ventricular rate is 96 with premature supraventricular complexes noted and computer is reading nonspecific changes which is artifact. CT interval is 106 6 ms. QRS duration 88 ms. QT duration is 386 ms with a QTC of 487. The QT is prolonged. 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) Discharge Plan Triage Chief Complaint: Palpitations Other Complaint: Syncope ED Provider: Dhiraj Quiroga Dx/Rx/DC Orders Clinical Impression: Syncope and collapse, Non-sustained ventricular tachycardia, Sensation of chest pressure Instructions: Ventricular Arrhythmia, ED Palpitations, ED Fainting, Uncertain Cause Prescriptions: No Action albuterol sulfate 90 mcg/actuation HFA aerosol inhaler 2 puff inhalation Q4H PRN (Reason: Shortness Of Breath) RF: 0 aspirin 81 mg tablet,chewable 162 mg PO DAILY RF: 0 metoprolol tartrate 100 mg tablet 100 mg PO BID Qty: 60 RF: 6 metformin 500 mg tablet extended release 24 hr 1,000 mg PO DAILY RF: 0 promethazine 25 mg Tablet 25 mg PO Q6H PRN (Reason: Migraine Headache) RF: 0 folic acid 1 mg Tablet 1 mg PO DAILY RF: 0 gabapentin 100 mg Capsule 100 mg PO DAILY PRN (Reason: Migraine Headache) RF: 0 naproxen 500 mg Tablet 500 mg PO BID PRN (Reason: Migraine Headache) RF: 0 28-800 mg-mcg Tablet 1 tab PO DAILY RF: 0 albuterol sulfate 2.5 mg /3 mL (0.083 %) solution for nebulization 2.5 mg inhalation Q4H PRN (Reason: Shortness Of Breath) RF: 0 Botox 200 unit Recon Soln See Rx Instructions .ROUTE .COMPLEX RF: 0 Referrals: LUCIANA PARKER I [Other] - As Needed Shabbir Duran MD [NON-STAFF] - Keep Angel appointment Disposition Disposition: Home, Self Care
[2021-07-13 01:34] VITALS: RESP 16
[2021-07-13 02:25] VITALS: BP 124/94; PULSE 102; RESP 17; O2SAT 97
[2021-07-13 02:26] VITALS: RESP 17
== END 2021-07-13 02:26 | disposition home or self-care (01) ==
PROVIDERS: Emergency Provider Emergency Medicine
DX: I47.2 Ventricular tachycardia (principal); R55 Syncope and collapse; R07.89 Other chest pain; E11.9 Type 2 diabetes mellitus without complications; E66.9 Obesity, unspecified; Z68.43 Body mass index [BMI] 50.0-59.9, adult; Z79.82 Long term (current) use of aspirin; Z79.84 Long term (current) use of oral hypoglycemic drugs
CPT/HCPCS: 71045; 80048; 84484; 93005; 99284; A4216

== ENCOUNTER 2021-09-10 17:13 | Emergency (ER) | payer MEDICAID, SELFPAY ==
[2021-09-10 17:14] VITALS: BP 155/95; PULSE 86; RESP 16; TEMP 36.2; O2SAT 97; BMI 50.8
[2021-09-10 17:38] VITALS: BP 116/64; PULSE 75; RESP 16; O2SAT 99
--- NOTE | 2021-09-10 17:48 | EX.ED.VIS.HA ---
HPI History of Present Illness Chief Complaint: Headache Narrative Narrative: 31-year-old female with history of headache. She states she has migraines chronically. She is currently had a migraine for 2 weeks. She has been seen by the migraine clinic at [facility] and states he is getting infusions of magnesium, Depakene, Zofran. These do make her headaches improved. She states she had 3 infusions this week and currently she is having worsening headache. She states she tried to call the migraine clinic and could not get through. She states this is typical of her migraines. 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 She denies any trauma. [facility] Medical History History of asthma History of lupus anticoagulant disorder Insulin resistance Migraines Home Medications 1 tab PO DAILY 06/15/21 [History Last Taken 06/15/21] folic acid 1 mg PO DAILY 06/15/21 [History Last Taken 06/15/21] gabapentin 100 mg PO DAILY PRN 06/15/21 [History Last Taken 06/10/21] metformin 1,000 mg PO DAILY 06/15/21 [History Last Taken 06/15/21] naproxen 500 mg PO BID PRN 06/15/21 [History Last Taken 06/10/21] promethazine 25 mg PO Q6H PRN 06/15/21 [History Last Taken 06/10/21] albuterol sulfate 2.5 mg INHALATION Q4H PRN 07/04/21 [History Last Taken Unknown] albuterol sulfate 90 mcg/actuation aerosol inhaler 2 puff INHALATION Q4H PRN g 07/04/21 [History Last Taken Unknown] aspirin 81 mg chewable tablet 162 mg PO DAILY tab 07/04/21 [History Last Taken Unknown] metoprolol tartrate 100 mg tablet 100 mg PO BID #60 tab 07/05/21 [Rx Last Taken Unknown] onabotulinumtoxinA [Botox] See Rx Instructions .ROUTE .COMPLEX 07/13/21 [History Last Taken Unknown] famotidine 40 mg tablet 40 mg PO DAILY 07/29/21 [History Last Taken Unknown] Allergy/AdvReac Type Severity Reaction Status Date / Time prochlorperazine Allergy Other Verified 09/10/21 17:16 [From Compazine] Family History Mother Cancer Thyroid disorder Father Heart disease Surgical History History of cholecystectomy History of tonsillectomy Social History household members: spouse Smoking Status: Never smoker alcohol intake: never substance use type: does not use caffeine: Yes Type: coffee Number of servings: 2 ROS ROS ED Constitutional Constitutional ED: Denies chills or fever(s) Eyes Eyes: Denies blurry vision or diplopia ENT ENT ED: Denies rhinorrhea Cardiovascular Cardiovascular: Denies chest pain or palpitations Respiratory/Chest Respiratory/Chest: Denies cough or dyspnea Gastrointestinal Gastrointestinal: Denies abdominal pain or nausea Genitourinary Genitourinary ED: Denies dysuria or hematuria Musculoskeletal Musculoskeletal: Denies arthralgias or myalgias Integumentary Denies abscess or rash Neurologic Neurologic: Reports headache(s); Denies paresthesias or weakness EXAM Physical Exam Const Vital Signs: 09/10/21 17:14 09/10/21 17:38 Temperature 97.1 F L Temperature Source Temporal Pulse Rate 86 75 Respiratory Rate 16 16 Blood Pressure 155/95 H 116/64 Blood Pressure Mean 115 81 Pulse Ox 97 99 Oxygen Delivery Method Room Air Room Air Positive well nourished General Appearance ED: NAD; Negative for pallor HEENT Reports normocephalic and moist mucous membranes atraumatic Eyes PERRL and EOMs intact bilaterally Resp normal respiratory effort Effort and Inspection: able to speak in complete sentences and symmetric chest movement Cardio regular rate and regular rhythm Neuro oriented x3, CN's II-XII intact bilaterally and no sensory deficits noted Sensorium / Orientation: awake and alert Motor Exam: strength 5/5 throughout Psych mental status grossly normal Skin General Skin Exam: Negative for jaundice or pallor Lesions: no lesions Rashes: no rashes MDM MDM MDM Narrative Medical decision making narrative: Patient presenting with chronic migraine. She states that Depakene, Zofran, methocarbamol, magnesium usually help her headache. She had a fusion of this this week. I checked a Depakote level and this is low. Patient was given oral methocarbamol and given Depakene, Zofran, magnesium IV. She is reevaluated at 1940 and states her headache is improving but wants to limit medications finished. Patient will be discharged after these are done. Impression: 1. Migraine Lab Data Labs: Laboratory Results - last 24 hr 09/10/21 18:00 Valproic Acid 6 L Discharge Plan Triage Chief Complaint: Headache ED Provider: Low Esposito Dx/Rx/DC Orders Prescriptions: No Action albuterol sulfate 90 mcg/actuation HFA aerosol inhaler 2 puff inhalation Q4H PRN (Reason: Shortness Of Breath) RF: 0 aspirin 81 mg tablet,chewable 162 mg PO DAILY RF: 0 metoprolol tartrate 100 mg tablet 100 mg PO BID Qty: 60 RF: 6 famotidine 40 mg tablet 40 mg PO DAILY RF: 0 metformin 500 mg tablet extended release 24 hr 1,000 mg PO DAILY RF: 0 promethazine 25 mg Tablet 25 mg PO Q6H PRN (Reason: Migraine Headache) RF: 0 folic acid 1 mg Tablet 1 mg PO DAILY RF: 0 gabapentin 100 mg Capsule 100 mg PO DAILY PRN (Reason: Migraine Headache) RF: 0 naproxen 500 mg Tablet 500 mg PO BID PRN (Reason: Migraine Headache) RF: 0 28-800 mg-mcg Tablet 1 tab PO DAILY RF: 0 albuterol sulfate 2.5 mg /3 mL (0.083 %) solution for nebulization 2.5 mg inhalation Q4H PRN (Reason: Shortness Of Breath) RF: 0 Botox 200 unit Recon Soln See Rx Instructions .ROUTE .COMPLEX RF: 0 Primary Care Provider: Care Physician,No Primary
[2021-09-10] MEDS: Ondansetron 4 MG/2 ML Vial IV (18:02)
[2021-09-10] MEDS: Methocarbamol 500 MG Tablet 1000 MG PO (18:03)
[2021-09-10 18:39] LABS: Valproic Acid (Depakene) Level 6 ug/mL (50-100)
[2021-09-10 20:00] VITALS: BP 113/63; PULSE 83; RESP 22; O2SAT 100
== END 2021-09-10 21:43 | disposition home or self-care (01) ==
PROVIDERS: Emergency Provider Student in an Organized Health Care Education/Training Program
DX: G43.909 Migraine, unspecified, not intractable, without status migrainosus (principal); J45.909 Unspecified asthma, uncomplicated; Z79.82 Long term (current) use of aspirin; Z79.84 Long term (current) use of oral hypoglycemic drugs; E88.81 Metabolic syndrome and other insulin resistance; Z79.899 Other long term (current) drug therapy
CPT/HCPCS: 80164; 96365; 96367; 96375; 99283; J7040; A4216; J2405

== ENCOUNTER 2021-11-19 21:24 | Emergency (ER) | payer MEDICAID, SELFPAY ==
[2021-11-19 21:25] VITALS: BP 113/70; PULSE 106; RESP 23; TEMP 36.9; O2SAT 95; BMI 52.8
--- NOTE | 2021-11-19 21:53 | RAD_ITS ---
HISTORY: chest pain EXAMINATION/TECHNIQUE: XR Chest 1 View AP view COMPARISON: AP chest x-ray from 07/13/21 FINDINGS: LINES/DEVICES: threat monitoring analyst leads. LUNGS: No focal airspace consolidation. No pulmonary edema. No pleural effusion. No pneumothorax. MEDIASTINUM AND CARDIOVASCULAR STRUCTURES: Cardiac silhouette not enlarged. Central airways and mediastinal contour are unremarkable. BONES AND SOFT TISSUES: No acute findings. RAD/Chest 1 View (Portable) IMPRESSION: No radiographic evidence of acute cardiopulmonary disease. at 2227 Reported and signed by: Alberto Young MD Electronically Signed: Alberto Young MD at 22:26 EST ,
--- NOTE | 2021-11-19 21:53 | EKG12_ITS ---
Test Reason : NEAR SYNCOPE Blood Pressure : / mmHG Vent. Rate : 099 BPM Atrial Rate : 099 BPM P-R Int : 178 ms QRS Dur : 080 ms QT Int : 378 ms P-R-T Axes : 044 030 021 degrees QTc Int : 485 ms Normal sinus rhythm Nonspecific T wave abnormality Abnormal ECG Confirmed by JARRELL GALEANO, ALLI ([id number]), newspaper editor AMBIKA TELLO ([id number]) on 11/21/2021 11:06:50 AM Referred By: SONALI Confirmed By:ALLI VIEYRA MD
--- NOTE | 2021-11-19 21:54 | EX.ED.DYSGE1 ---
HPI History of Present Illness Chief Complaint: Syncope Informant: patient Onset/Context/Timing Onset: Today (JPTA) Context: Sudden Onset (while driving) Timing: Intermittent (x1 today) and Lasts (20 min) Quality: pounding/racing, ache Location: left chest, radiating down LUE Current Severity: Gone Maximum Severity: Severe Worsened by: nothing Relieved by: nothing in particular Associated Symptoms Associated Symptoms: near-syncope Narrative Narrative: Patient has been having episodic palpitations for 6 months or more. She has seen cardiology here and referred to EP cardiology in [place], she saw them and is not sure what they are planning but they were waiting for information/paperwork to come through and she has not heard back yet, that was 1 or 2 months ago. While she was driving today, she had another episode, the usually last 2 minutes or so, this 1 went on and on and ended up lasting 20 minutes and in the process she developed chest discomfort, going down her left arm, near syncopal so she pulled over and called EMS. She states she had difficulty staying awake and the symptoms were severe. Upon their arrival, she was feeling much better and now her symptoms are completely resolved. She takes metoprolol for this, states that unintentionally she missed doses last night and this morning because she stated her dad's house. She denies any recent illness or injury, no drug use. She denies having any focal neurologic symptoms other than the near syncope. She now feels fine. [facility] Medical History History of asthma History of lupus anticoagulant disorder Insulin resistance Migraines Home Medications 1 tab PO DAILY 06/15/21 [History Last Taken 06/15/21] folic acid 1 mg PO DAILY 06/15/21 [History Last Taken 06/15/21] gabapentin 100 mg PO DAILY PRN 06/15/21 [History Last Taken 06/10/21] metformin 500 mg PO BID 06/15/21 [History Last Taken 06/15/21] naproxen 500 mg PO BID PRN 06/15/21 [History Last Taken 06/10/21] promethazine 25 mg PO Q6H PRN 06/15/21 [History Last Taken 06/10/21] albuterol sulfate 2.5 mg INHALATION Q4H PRN 07/04/21 [History Last Taken Unknown] albuterol sulfate 90 mcg/actuation aerosol inhaler 2 puff INHALATION Q4H PRN g 07/04/21 [History Last Taken Unknown] aspirin 81 mg chewable tablet 162 mg PO DAILY tab 07/04/21 [History Last Taken Unknown] metoprolol tartrate 100 mg tablet 100 mg PO BID #60 tab 07/05/21 [Rx Last Taken Unknown] onabotulinumtoxinA [Botox] See Rx Instructions .ROUTE .COMPLEX 07/13/21 [History Last Taken Unknown] famotidine 40 mg tablet 40 mg PO DAILY 07/29/21 [History Last Taken Unknown] Allergy/AdvReac Type Severity Reaction Status Date / Time prochlorperazine Allergy Other Verified 11/19/21 21:31 [From Compazine] Family History Mother Cancer Thyroid disorder Father Heart disease Surgical History History of cholecystectomy History of tonsillectomy Social History household members: spouse Smoking Status: Never smoker alcohol intake: never substance use type: does not use caffeine: Yes Type: coffee Number of servings: 2 ROS ROS ED Constitutional Constitutional ED: Denies chills or fever(s) Eyes Eyes: Denies change in vision or diplopia ENT ENT ED: Denies rhinorrhea or sore throat Cardiovascular Cardiovascular: Reports chest pain, lightheadedness, palpitations, pounding heartbeat and racing heartbeat Respiratory/Chest Respiratory/Chest: Denies cough or dyspnea Gastrointestinal Gastrointestinal: Denies abdominal pain, diarrhea, nausea or vomiting Genitourinary Genitourinary ED: Denies dysuria or hematuria Musculoskeletal Musculoskeletal: Denies back pain or neck pain Integumentary Denies abscess or rash Neurologic Neurologic: Denies headache(s), paresthesias or weakness Psychiatric Psychiatric: Denies anxiety or suicidal thoughts EXAM Physical Exam Const Vital Signs: 11/19/21 21:25 11/19/21 22:07 11/19/21 22:30 Temperature 98.5 F Temperature Source Oral Pulse Rate 106 H 87 Respiratory Rate 23 H 15 Respiratory Effort Normal Non-Labored Respiratory Pattern Normal Blood Pressure 113/70 141/90 H Blood Pressure Mean 84 107 Pulse Ox 95 100 Oxygen Delivery Method Room Air Room Air 11/19/21 23:38 Temperature Temperature Source Pulse Rate 78 Respiratory Rate 22 H Respiratory Effort Respiratory Pattern Blood Pressure 117/76 Blood Pressure Mean 89 Pulse Ox 97 Oxygen Delivery Method Room Air Positive well nourished, well developed and obese General Appearance ED: well developed and NAD Nutritional Appearance: obese HEENT Reports moist mucous membranes normocephalic and atraumatic Eyes PERRL and EOMs intact bilaterally Neck full ROM and supple Resp normal respiratory effort and clear to auscultation bilaterally Cardio regular rate, regular rhythm and no murmurs GI non-tender and non-distended Auscultation: normoactive bowel sounds Palpation: soft Back/Spine no CVA tenderness General Back: other FROM Extremity normal to inspection and no calf tenderness General Extremety ED: Negative for edema, pulses abnormal or tenderness General Extremity: Negative for edema or pulses abnormal Neuro oriented x3, CN's II-XII intact bilaterally and no sensory deficits noted Sensorium / Orientation: awake and alert Motor Exam: strength 5/5 throughout Skin no rashes or lesions noted and no wounds MDM MDM MDM Narrative Medical decision making narrative: Patient was maintained on the weft straightener, she had no symptoms or telemetry events. She was given her dose of metoprolol that she would normally take tonight. On repeat eval she is doing well and her heart rate is in the 70s, sinus rhythm. Her chest x-ray on my interpretation 1 view is negative for any acute abnormality. Radiology in agreement. Her initial blood work is unremarkable except for a mild nonspecific leukocytosis, and mild hypokalemia which I suspect is due to shift and temporary. That will be repeated along with her 2-hour repeat troponin. In looking that some of her old records, she had an event monitor at the end of last year that showed runs of ventricular tachycardia. She had seen [facility] EP cardiology Dr. Duran, and has been awaiting contact back from their office for the next step in her evaluation. He was division manager for the group tonkeri, and I discussed her case with him. Given her delta returned within normal limits as well, he is comfortable with her going home and following up, he will have his nurse contact her after the weekend for further follow-up instructions. The patient was encouraged to try to remember to take her metoprolol as prescribed. She is comfortable with that plan. Lab Data Attestation: I reviewed the patient's lab results. Labs: Laboratory Results - last 24 hr 11/19/21 11/19/21 11/19/21 21:45 21:45 23:41 WBC 13.3 H RBC 5.20 Hgb 13.4 Hct 41.7 MCV 80.2 L MCH 25.8 L MCHC 32.1 RDW Std Deviation 43.6 RDW Coeff of Remigio 15.1 H Plt Count 257 MPV 11.6 Immature Gran % (Auto) 0.300 Neut % (Auto) 72.3 H Lymph % (Auto) 20.3 Howell % (Auto) 5.3 Eos % (Auto) 1.6 Baso % (Auto) 0.2 Absolute Neuts (auto) 9.6 H Absolute Lymphs (auto) 2.70 Nucleated RBC % 0 Sodium 139 Potassium 3.1 L 3.6 Chloride 105 Carbon Dioxide 28.0 Anion Gap 6 BUN 11 Creatinine 0.91 Estim Creat Clear Calc 87.91 Est GFR (MDRD) Af Amer 93 Est GFR (MDRD) Non-Af 77 BUN/Creatinine Ratio 12.1 Glucose 128 H Calcium 9.1 Troponin I High Sens 3 6 Radiography Diagnostic Testing: Clinical Impression(s) from Imaging Studies Chest X-Ray 11/19/21 21:53 IMPRESSION: No radiographic evidence of acute cardiopulmonary disease. at 2227 Reported and signed by: Alberto Young MD Electronically Signed: Alberto Young MD at 22:26 EST , EKG Initial EKG: Attestation: I personally reviewed and interpreted this EKG as follows: Interpretation: Sinus Rhythm, No Acute Injury Pattern and Non-Specific ST Changes (lateral T wave flattening) Prior EKG tracings: available for review Prior: Unchanged Discharge Plan Triage Chief Complaint: Syncope ED Provider: Juan Ly Dx/Rx/DC Orders Clinical Impression: Palpitations, Ventricular tachycardia, Near syncope, Chest pain Instructions: ED Palpitations Prescriptions: No Action albuterol sulfate 90 mcg/actuation HFA aerosol inhaler 2 puff inhalation Q4H PRN (Reason: Shortness Of Breath) RF: 0 aspirin 81 mg tablet,chewable 162 mg PO DAILY RF: 0 metoprolol tartrate 100 mg tablet 100 mg PO BID Qty: 60 RF: 6 famotidine 40 mg tablet 40 mg PO DAILY RF: 0 metformin 500 mg tablet extended release 24 hr 500 mg PO BID RF: 0 promethazine 25 mg Tablet 25 mg PO Q6H PRN (Reason: Migraine Headache) RF: 0 folic acid 1 mg Tablet 1 mg PO DAILY RF: 0 gabapentin 100 mg Capsule 100 mg PO DAILY PRN (Reason: Migraine Headache) RF: 0 naproxen 500 mg Tablet 500 mg PO BID PRN (Reason: Migraine Headache) RF: 0 28-800 mg-mcg Tablet 1 tab PO DAILY RF: 0 albuterol sulfate 2.5 mg /3 mL (0.083 %) solution for nebulization 2.5 mg inhalation Q4H PRN (Reason: Shortness Of Breath) RF: 0 Botox 200 unit Recon Soln See Rx Instructions .ROUTE .COMPLEX RF: 0 Primary Care Provider: Care Physician,No Primary Referrals: Shabbir Duran MD [NON-STAFF] - (nursing from his office will contact/call you after the weekend for further instructions regarding follow up) Disposition Disposition: Home, Self Care
[2021-11-19 22:00] LABS: Absolute Neutrophil Count 9.6 X10^3/uL (2.0-7.7); Basophil# 0.02 X10^3/uL; Basophil% 0.2 % (0-1); Eosinophil# 0.21 X10^3/uL; Eosinophils% 1.6 % (0-5); Hematocrit 41.7 % (37-47); Hemoglobin 13.4 g/dL (12.0-15.0); Lymphocyte % 20.3 % (19-41); Mean Corp Hgb Conc 32.1 g/dL (32-36); Mean Corpuscular Hgb 25.8 pg (27.0-32.0); Mean Corpuscular Volume 80.2 fL (81-99); Mean Platelet Vol. 11.6 fl (6.2-12.0); Monocyte% 5.3 % (0-10); NRBC Flagged by Analyzer 0 % (0-5); Neutrophil # 9.61 X10^3/uL (2.7-7.7); Neutrophil % 72.3 % (47-70); Platelet Count 257 K/mm3 (150-450); RBC Distribution Width CV 15.1 % (11.6-14.6); RBC Distribution Width SD 43.6 fl (35.1-43.9); White Blood Count 13.3 K/mm3 (4.4-11.0)
[2021-11-19] MEDS: Metoprolol Tartrate 100 MG Tablet PO (22:06)
[2021-11-19 22:20] LABS: Anion Gap 6 (5-15); BUN 11 mg/dL (7-18); BUN/Creat Ratio 12.1 RATIO (10-20); Calcium,Total 9.1 mg/dL (8.5-10.1); Chloride 105 mmol/L (98-107); Creatinine, Serum 0.91 mg/dL (0.55-1.02); EST Glomerular Filtration Rate 77 mL/min (>60); Est Glom Filt Rate - Afr Amer 93 mL/min (>60); Estimated Creatinine Clearance 87.91 ml/min; Glucose 128 mg/dL (74-106); Potassium 3.1 mmol/L (3.5-5.1); Sodium Level 139 mmol/L (136-145); Troponin-I HS 3 pg/mL (3.0-54.0)
[2021-11-19 22:30] VITALS: BP 141/90; PULSE 87; RESP 15; O2SAT 100
[2021-11-19 23:38] VITALS: BP 117/76; PULSE 78; RESP 22; O2SAT 97
[2021-11-20 00:07] LABS: Potassium 3.6 mmol/L (3.5-5.1); Troponin-I HS 6 pg/mL (3.0-54.0)
[2021-11-20 00:21] VITALS: BP 147/95; PULSE 77; RESP 18; O2SAT 98
== END 2021-11-20 00:43 | disposition home or self-care (01) ==
PROVIDERS: Emergency Provider Emergency Medicine; Visit Provider Emergency Medicine
DX: I47.2 Ventricular tachycardia (principal); Z68.43 Body mass index [BMI] 50.0-59.9, adult; R55 Syncope and collapse; R07.9 Chest pain, unspecified; E66.9 Obesity, unspecified; Z79.82 Long term (current) use of aspirin; Z79.899 Other long term (current) drug therapy; Z82.49 Family history of ischemic heart disease and other diseases of the circulatory system
CPT/HCPCS: 71045; 80048; 84132; 84484; 85025; 93005; 99285

== ENCOUNTER 2022-01-04 19:59 | Emergency (ER) | payer MEDICAID, SELFPAY ==
[2022-01-04 20:00] VITALS: BP 159/89; PULSE 91; RESP 15; TEMP 36.8; O2SAT 98; BMI 53.4
[2022-01-04 20:04] VITALS: PULSE 94
--- NOTE | 2022-01-04 20:18 | EKG12_ITS ---
Test Reason : PALPTATIONS Blood Pressure : / mmHG Vent. Rate : 090 BPM Atrial Rate : 090 BPM P-R Int : 168 ms QRS Dur : 082 ms QT Int : 378 ms P-R-T Axes : 030 023 042 degrees QTc Int : 462 ms Sinus rhythm with sinus arrhythmia with occasional Premature ventricular complexes Nonspecific T wave abnormality Prolonged QT Abnormal ECG Confirmed by GABRIEL GALEANO, MEI ([id number]), supervising editor news reel AMBIKA TELLO ([id number]) on 01/06/2022 10:10:59 AM Referred By: VELVET Confirmed By:MEI RIOS MD
--- NOTE | 2022-01-04 20:45 | EX.ED.DYSGE1 ---
HPI History of Present Illness Chief Complaint: Palpitations Informant: patient and EMS Narrative Narrative: 31-year-old female presenting to the emergency room with chief complaint of palpitations. Patient has been working with cardiology for the past year as well as electrophysiology to figure out why she is having these palpitations. She has had extensive work-ups and is currently awaiting a formal EP study with for possible ablation. She is on metoprolol 100 mg twice a day. She states that tonight she was sitting on her recliner watching TV when she began to feel her heart race. It went as fast as 130. She began to feel ill near syncopal. It lasted greater than 20 minutes and she became concerned and called EMS. The patient states that currently she is asymptomatic. She has a rhythm strip from her apple watch that shows frequent PACs. [facility] Medical History History of asthma History of lupus anticoagulant disorder Insulin resistance Migraines Home Medications 1 tab PO DAILY 06/15/21 [History Last Taken 06/15/21] gabapentin 100 mg PO DAILY PRN 06/15/21 [History Last Taken 06/10/21] metformin 100 mg PO BID 06/15/21 [History Last Taken 06/15/21] naproxen 500 mg PO BID PRN 06/15/21 [History Last Taken 06/10/21] promethazine 25 mg PO Q6H PRN 06/15/21 [History Last Taken 06/10/21] albuterol sulfate 2.5 mg INHALATION Q4H PRN 07/04/21 [History Last Taken Unknown] albuterol sulfate 90 mcg/actuation aerosol inhaler 2 puff INHALATION Q4H PRN g 07/04/21 [History Last Taken Unknown] aspirin 81 mg chewable tablet 162 mg PO DAILY tab 07/04/21 [History Last Taken Unknown] metoprolol tartrate 100 mg tablet 100 mg PO BID #60 tab 07/05/21 [Rx Last Taken Unknown] onabotulinumtoxinA [Botox] See Rx Instructions .ROUTE .COMPLEX 07/13/21 [History Last Taken Unknown] Allergy/AdvReac Type Severity Reaction Status Date / Time prochlorperazine Allergy Other Verified 01/04/22 20:00 [From Compazine] Family History Mother Cancer Thyroid disorder Father Heart disease Surgical History History of cholecystectomy History of tonsillectomy Social History household members: spouse Smoking Status: Never smoker alcohol intake: never substance use type: does not use caffeine: Yes Type: coffee Number of servings: 2 ROS ROS ED Constitutional Constitutional ED: Denies chills or weight loss Eyes Eyes: Denies change in vision or diplopia ENT ENT ED: Denies ear pain, rhinorrhea or sore throat Cardiovascular Cardiovascular: Reports chest pain, palpitations, racing heartbeat and other Details: Near syncope ; Denies orthopnea Respiratory/Chest Respiratory/Chest: Denies cough, dyspnea or orthopnea Gastrointestinal Gastrointestinal: Denies abdominal pain, diarrhea, nausea or vomiting Genitourinary Genitourinary ED: Denies dysuria, hematuria or urinary frequency Musculoskeletal Musculoskeletal: Denies arthralgias or myalgias Integumentary Denies abscess or rash Neurologic Neurologic: Denies headache(s) or weakness Psychiatric Psychiatric: Denies anxiety, depression, suicidal ideation or suicidal thoughts Endocrine Endocrinology: Denies polydipsia, polyphagia or polyuria Allergic/Immunologic Allergic/Immunologic ED: Denies mouth swelling, tongue swelling or urticaria EXAM Physical Exam Const Vital Signs: 01/04/22 20:00 01/04/22 20:04 Temperature 98.3 F Temperature Source Temporal Pulse Rate 91 94 Respiratory Rate 15 Blood Pressure 159/89 H Blood Pressure Mean 112 Pulse Ox 98 Oxygen Delivery Method Room Air Positive well nourished, well developed and obese General Appearance ED: well developed Nutritional Appearance: obese HEENT Reports normocephalic, head/scalp atraumatic, TM's clear and moist mucous membranes Negative for trauma Tympanic Membrane ED: Yes TM's clear Eyes PERRL and EOMs intact bilaterally Neck no lymphadenopathy, supple and no JVD Resp normal respiratory effort and clear to auscultation bilaterally Cardio regular rate, regular rhythm and no murmurs GI normal to inspection, nondistended, normoactive bowel sounds and non-tender Palpation: soft Back/Spine no CVA tenderness and normal ROM Extremity normal to inspection General Extremety ED: Negative for edema General Extremity: Negative for edema Neuro oriented x3 and CN's II-XII intact bilaterally Sensorium / Orientation: alert Motor Exam: strength 5/5 throughout Psych mental status grossly normal Mood & Affect: Negative for depressed or tearful Skin no rashes or lesions noted and no wounds MDM MDM MDM Narrative Medical decision making narrative: Patient was observed on the monitor she has had no dysrhythmias noted. BMP and magnesium levels are normal. At this point patient was given reassurance advised to continue following up with her specialist and return if worsening or concerns Lab Data Attestation: I reviewed the patient's lab results. Labs: Laboratory Results - last 24 hr 01/04/22 20:10 Sodium 139 Potassium 4.7 Chloride 108 H Carbon Dioxide 25.0 Anion Gap 6 BUN 10 Creatinine 0.76 Estim Creat Clear Calc 105.26 Est GFR (MDRD) Af Amer 114 Est GFR (MDRD) Non-Af 94 BUN/Creatinine Ratio 13.1 Glucose 125 H Calcium 8.7 Magnesium 2.1 EKG Initial EKG: Attestation: I personally reviewed and interpreted this EKG as follows: Comments: Sinus rhythm with occasional PVC with a ventricular rate of 90 bpm. Discharge Plan Triage Chief Complaint: Palpitations ED Provider: Everardo Warner Dx/Rx/DC Orders Clinical Impression: Palpitations, Near syncope Instructions: ED Palpitations Prescriptions: No Action albuterol sulfate 90 mcg/actuation HFA aerosol inhaler 2 puff inhalation Q4H PRN (Reason: Shortness Of Breath) RF: 0 aspirin 81 mg tablet,chewable 162 mg PO DAILY RF: 0 metoprolol tartrate 100 mg tablet 100 mg PO BID Qty: 60 RF: 6 metformin 500 mg tablet extended release 24 hr 100 mg PO BID RF: 0 promethazine 25 mg Tablet 25 mg PO Q6H PRN (Reason: Migraine Headache) RF: 0 gabapentin 100 mg Capsule 100 mg PO DAILY PRN (Reason: Migraine Headache) RF: 0 naproxen 500 mg Tablet 500 mg PO BID PRN (Reason: Migraine Headache) RF: 0 28-800 mg-mcg Tablet 1 tab PO DAILY RF: 0 albuterol sulfate 2.5 mg /3 mL (0.083 %) solution for nebulization 2.5 mg inhalation Q4H PRN (Reason: Shortness Of Breath) RF: 0 Botox 200 unit Recon Soln See Rx Instructions .ROUTE .COMPLEX RF: 0 Primary Care Provider: Care Physician,No Primary Referrals: Care Physician,No Primary [Primary Care Provider] - Activity Restrictions/Additional Instructions: Please continue to follow-up with 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
[2022-01-04 21:28] LABS: Anion Gap 6 (5-15); BUN 10 mg/dL (7-18); BUN/Creat Ratio 13.1 RATIO (10-20); Calcium,Total 8.7 mg/dL (8.5-10.1); Chloride 108 mmol/L (98-107); Creatinine, Serum 0.76 mg/dL (0.55-1.02); EST Glomerular Filtration Rate 94 mL/min (>60); Est Glom Filt Rate - Afr Amer 114 mL/min (>60); Estimated Creatinine Clearance 105.26 ml/min; Glucose 125 mg/dL (74-106); Magnesium 2.1 mg/dL (1.6-2.6); Potassium 4.7 mmol/L (3.5-5.1); Sodium Level 139 mmol/L (136-145)
[2022-01-04 21:34] VITALS: BP 159/76; PULSE 98; RESP 21; O2SAT 98
[2022-01-04 21:37] VITALS: BP 159/76; PULSE 86; RESP 16; O2SAT 98
== END 2022-01-04 21:40 | disposition home or self-care (01) ==
PROVIDERS: Emergency Provider Emergency Medicine; Visit Provider Emergency Medicine
DX: R00.2 Palpitations (principal); Z68.43 Body mass index [BMI] 50.0-59.9, adult; R55 Syncope and collapse; J45.909 Unspecified asthma, uncomplicated; E66.9 Obesity, unspecified; Z79.82 Long term (current) use of aspirin; Z79.899 Other long term (current) drug therapy
CPT/HCPCS: 80048; 83735; 93005; 99285; A4216

== ENCOUNTER 2022-03-08 21:35 | Emergency (ER) | payer MEDICAID, SELFPAY ==
[2022-03-08 21:35] VITALS: BP 176/97; PULSE 109; RESP 16; TEMP 36.6; O2SAT 97; BMI 51.7
--- NOTE | 2022-03-08 21:45 | CT_ITS ---
EXAM: CT ABDOMEN AND PELVIS WITH INTRAVENOUS CONTRAST CLINICAL INDICATION: abdominal pain -- LUQ pain TECHNIQUE: Helically acquired images were obtained of the abdomen and pelvis with intravenous contrast. This CT exam was performed using one or more of the following dose reduction techniques: automated exposure control, adjustment of the mA and/or kV according to patient size, and/or use of iterative reconstruction technique. This report was created using evidanza report generation technology. CONTRAST: IV 100mL Isovue-300 COMPARISON: None. FINDINGS: LOWER THORAX: Unremarkable. Lung bases are clear. No cardiomegaly. No significant pericardial effusion. ABDOMEN: LIVER: Unremarkable. Homogeneous. No focal mass. GALLBLADDER AND BILE DUCTS: There are surgical clips from a cholecystectomy. No intra- or extrahepatic biliary ductal dilation. PANCREAS: Unremarkable. No focal cystic or solid mass. SPLEEN: Unremarkable. Normal size without focal cystic or solid mass. ADRENALS: Unremarkable. No nodules. KIDNEYS AND URETERS: Unremarkable. Normal renal size and position. No hydronephrosis. STOMACH AND BOWEL: Unremarkable. No stomach or bowel distention. No focal inflammatory change. PELVIS: APPENDIX: No evidence of acute appendicitis. BLADDER: Unremarkable. REPRODUCTIVE: Unremarkable as visualized. No mass. ABDOMEN and PELVIS: INTRAPERITONEAL SPACE: Unremarkable. No ascites or other fluid collection. No free air. BONES/JOINTS: Unremarkable. No suspicious lytic or blastic abnormality. SOFT TISSUES: Unremarkable. No discrete abdominal or pelvic wall hernia. VASCULATURE: Unremarkable. Abdominal aorta is non-dilated. LYMPH NODES: Unremarkable. No enlarged lymph nodes. CT/Abdomen/Pelvis W IV Cont ONLY IMPRESSION: No acute findings in the abdomen or pelvis. Electronically Signed: Dank Brady MD at 23:44 EDT ,
--- NOTE | 2022-03-08 21:47 | ED.VIS.GI ---
HPI HPI - GI History of Present Illness Chief Complaint: Abd Pain Informant: patient Narrative Narrative: Persistent left upper quadrant abdominal pain since this morning. Sharp in nature. Pain causing nausea. No vomiting no diarrhea normal bowel movement this morning. History of cholecystectomy. Diverticulitis years ago. No fevers. She is able to work however symptoms worse with movement. She denies any recent sore throat recent fevers or illnesses. History of reflux on 2 medications one of them is omeprazole. She is on metoprolol for history of heart dysrhythmia. No previous similar symptoms in the past. No family history of Crohn's disease or ulcerative colitis. Prior similar symptoms: No PFSH PFSH Medical History History of asthma History of lupus anticoagulant disorder Insulin resistance Migraines Home Medications gabapentin 100 mg capsule 100 mg PO DAILY PRN Migraine Headache 06/15/21 [History Last Taken 06/10/21] naproxen 500 mg tablet 500 mg PO BID PRN Migraine Headache 06/15/21 [History Last Taken 06/10/21] vit no.133-ferrous fumarate 28 mg-folic acid 800 mcg tablet () 1 tab PO DAILY 06/15/21 [History Last Taken 06/15/21] promethazine 25 mg tablet 25 mg PO Q6H PRN Migraine Headache 06/15/21 [History Last Taken 06/10/21] albuterol sulfate 2.5 mg inhalation Q4H PRN Shortness Of Breath 07/04/21 [History Last Taken Unknown] albuterol sulfate 90 mcg/actuation aerosol inhaler 2 puff inhalation Q4H PRN Shortness Of Breath 07/04/21 [History Last Taken Unknown] aspirin 81 mg chewable tablet 162 mg PO DAILY 07/04/21 [History Last Taken Unknown] onabotulinumtoxinA 200 unit solution for injection (Botox) See Rx Instructions .Route .COMPLEX 07/13/21 [History Last Taken Unknown] chlorzoxazone 500 mg tablet tablet PO 01/17/22 [History Last Taken Unknown] cholecalciferol (vitamin D3) 50 mcg (2,000 unit) capsule 50 mcg PO DAILY 01/17/22 [History Last Taken Unknown] cyanocobalamin (vitamin B-12) 2,500 mcg tablet 2,500 mcg PO DAILY 01/17/22 [History Last Taken Unknown] famotidine 40 mg tablet 40 mg PO DAILY 01/17/22 [History Last Taken Unknown] metformin 500 mg tablet,extended release 24 hr 500 mg PO BID 01/17/22 [History Last Taken Unknown] metoprolol tartrate 50 mg tablet 50 mg PO BID #60 tabs 01/17/22 [Rx Last Taken Unknown] mv-min-vit C 1,000 mg-elderberry 50 mg-herb 35.5mg effervescent tablet (Airborne Elderberry) ea PO 01/17/22 [History Last Taken Unknown] omeprazole 40 mg capsule,delayed release 40 mg PO DAILY 01/17/22 [History Last Taken Unknown] Allergy/AdvReac Type Severity Reaction Status Date / Time prochlorperazine Allergy Other Verified 03/08/22 21:37 [From Compazine] Family History Mother Cancer Thyroid disorder Father Heart disease Surgical History (Reviewed 01/17/22 @ 09:26 by Marisela Watkins PIE CRIMPING MACHINE OPERATOR, PIE CRIMPING MACHINE OPERATOR-C) History of cholecystectomy History of tonsillectomy Social History household members: spouse Smoking Status: Never smoker alcohol intake: never substance use type: does not use caffeine: Yes Type: coffee Number of servings: 2 ROS ROS ED Constitutional Constitutional ED: Denies chills, fever(s) or sweats Eyes Eyes: Denies change in vision ENT ENT ED: Denies dysphagia or sore throat Cardiovascular Cardiovascular: Denies chest pain, leg edema, palpitations or racing heartbeat Respiratory/Chest Respiratory/Chest: Denies cough, dyspnea or dyspnea on exertion Gastrointestinal Gastrointestinal: Reports abdominal pain and nausea; Denies diarrhea or vomiting Genitourinary Genitourinary ED: Denies dysuria, hematuria or urinary frequency Musculoskeletal Musculoskeletal: Denies back pain, extremity pain or neck pain Integumentary Denies rash or wounds Neurologic Neurologic: Denies headache(s), paresthesias or weakness EXAM Physical Exam Const Vital Signs: 03/08/22 21:35 Temperature 98 F Temperature Source Temporal Pulse Rate 109 H Respiratory Rate 16 Blood Pressure 176/97 H Blood Pressure Mean 123 Pulse Ox 97 Oxygen Delivery Method Room Air Positive well nourished, well developed and obese General Appearance ED: well developed and NAD Nutritional Appearance: obese HEENT Reports moist mucous membranes normocephalic and atraumatic Eyes PERRL, EOMs intact bilaterally and conjunctivae normal General Eye ED: Yes normal appearance of both eyes Neck no lymphadenopathy and supple General: Negative for tenderness Chest Wall Chest: Negative for tenderness Resp normal respiratory effort and normal air movement Effort and Inspection: symmetric chest movement; Negative for respiratory distress Cardio regular rate, regular rhythm and no murmurs Peripheral Pulses: pulses 2+ throughout GI normal to inspection, nondistended, normoactive bowel sounds GI Narrative: Left upper quadrant tenderness. Negative Gamble's or McBurney's tenderness. No guarding or rebound. Palpation: Negative for guarding or rebound tenderness present Back/Spine no CVA tenderness and no thoracic nor lumbar tenderness Extremity normal to inspection General Extremety ED: Negative for edema or tenderness General Extremity: Negative for edema Neuro oriented x3 and no sensory deficits noted Sensorium / Orientation: awake and alert Skin no rashes or lesions noted and no wounds MDM MDM MDM Narrative Medical decision making narrative: Patient declined any strong pain medications. IVs placed. Abdominal labs obtained returning white count of 13. Hemolyzed potassium 5.2 which is a normal creatinine. Lipase 150. hCG negative. CT abdomen pelvis IV contrast obtained and pending. Patient will be signed out to night physician. Lab Data Labs: Laboratory Results - last 24 hr 03/08/22 03/08/22 03/08/22 22:00 22:00 22:00 WBC 13.0 H RBC 5.00 Hgb 12.6 Hct 40.9 MCV 81.8 MCH 25.2 L MCHC 30.8 L RDW Std Deviation 45.7 H RDW Coeff of Remigio 15.4 H Plt Count 229 MPV 12.4 H Immature Gran % (Auto) 0.200 Neut % (Auto) 63.6 Lymph % (Auto) 27.8 [place] % (Auto) 5.8 Eos % (Auto) 2.2 Baso % (Auto) 0.4 Absolute Neuts (auto) 8.3 H Absolute Lymphs (auto) 3.60 Nucleated RBC % 0 Sodium 140 Potassium 5.2 H Chloride 107 Carbon Dioxide 28.0 Anion Gap 5 BUN 15 Creatinine 0.87 Estim Creat Clear Calc 91.11 Est GFR (MDRD) Af Amer 98 Est GFR (MDRD) Non-Af 81 BUN/Creatinine Ratio 17.3 Glucose 100 Calcium 9.0 Total Bilirubin 0.30 AST 52 H ALT 38 Alkaline Phosphatase 102 Total Protein 7.6 Albumin 3.1 L Globulin 4.5 H Albumin/Globulin Ratio 0.7 L Lipase 150 Serum , Qual NEGATIVE Discharge Plan Triage Chief Complaint: Abd Pain ED Provider: Berhane Villegas Dx/Rx/DC Orders Clinical Impression: Abdominal pain Prescriptions: No Action albuterol sulfate 90 mcg/actuation HFA aerosol inhaler 2 puff inhalation Q4H PRN (Reason: Shortness Of Breath) aspirin 81 mg tablet,chewable 162 mg PO DAILY cholecalciferol (vitamin D3) 50 mcg (2,000 unit) capsule 50 mcg PO DAILY cyanocobalamin (vitamin B-12) 2,500 mcg tablet 2,500 mcg PO DAILY Airborne Elderberry 1,000 mg-50 mg-35.5 mg tablet, effervescent PO omeprazole 40 mg capsule,delayed release(DR/EC) 40 mg PO DAILY Label Comments: TAKE 1 CAPSULE BY MOUTH ONCE DAILY IN THE MORNING FOR 90 DAYS chlorzoxazone 500 mg tablet PO famotidine 40 mg tablet 40 mg PO DAILY Label Comments: TAKE 1 TABLET BY MOUTH ONCE DAILY IN THE EVENING FOR 30 DAYS metoprolol tartrate 50 mg tablet 50 mg PO BID Qty: 60 6RF promethazine 25 mg Tablet 25 mg PO Q6H PRN (Reason: Migraine Headache) gabapentin 100 mg Capsule 100 mg PO DAILY PRN (Reason: Migraine Headache) naproxen 500 mg Tablet 500 mg PO BID PRN (Reason: Migraine Headache) 28-800 mg-mcg Tablet 1 tab PO DAILY albuterol sulfate 2.5 mg /3 mL (0.083 %) solution for nebulization 2.5 mg inhalation Q4H PRN (Reason: Shortness Of Breath) metformin 500 mg tablet extended release 24 hr 500 mg PO BID Botox 200 unit Recon Soln See Rx Instructions .ROUTE .COMPLEX Rx Instructions: 200 unit subcutaneously every 3 months Primary Care Provider: LUCIANA PARKER Referrals: [facility] Doctor,Out of [NON-STAFF] -
[2022-03-08] MEDS: Ketorolac 15 MG/ML Vial IV (22:16)
[2022-03-08] MEDS: 0.9% Normal Saline 1,000 ML 1000 ML IV (22:16)
[2022-03-08] MEDS: Ondansetron 4 MG/2 ML Vial IV (22:17)
[2022-03-08 22:22] LABS: Absolute Neutrophil Count 8.3 X10^3/uL (2.0-7.7); Basophil# 0.05 X10^3/uL; Basophil% 0.4 % (0-1); Eosinophil# 0.28 X10^3/uL; Eosinophils% 2.2 % (0-5); Hematocrit 40.9 % (37-47); Hemoglobin 12.6 g/dL (12.0-15.0); Lymphocyte % 27.8 % (19-41); Mean Corp Hgb Conc 30.8 g/dL (32-36); Mean Corpuscular Hgb 25.2 pg (27.0-32.0); Mean Corpuscular Volume 81.8 fL (81-99); Mean Platelet Vol. 12.4 fl (6.2-12.0); Monocyte# 0.75 X10^3/uL; Monocyte% 5.8 % (0-10); NRBC Flagged by Analyzer 0 % (0-5); Neutrophil # 8.25 X10^3/uL (2.7-7.7); Neutrophil % 63.6 % (47-70); Platelet Count 229 K/mm3 (150-450); RBC Distribution Width CV 15.4 % (11.6-14.6); RBC Distribution Width SD 45.7 fl (35.1-43.9)
[2022-03-08 22:43] LABS: Internal QC Validated? YES +Cl - CLEAR BKGD; Pregnancy, Serum, hCG Quali. NEGATIVE Negative
[2022-03-08 22:51] LABS: ALB/GLOB Ratio 0.7 RATIO (0.9-2.4); AST(SGOT) 52 U/L (15-37); Alanine Aminotransfer ALT/SGPT 38 U/L (13-56); Albumin, Serum 3.1 g/dL (3.2-5.0); Alkaline Phosphatase 102 U/L (45-117); Anion Gap 5 (5-15); BUN 15 mg/dL (7-18); BUN/Creat Ratio 17.3 RATIO (10-20); Chloride 107 mmol/L (98-107); Creatinine, Serum 0.87 mg/dL (0.55-1.02); EST Glomerular Filtration Rate 81 mL/min (>60); Est Glom Filt Rate - Afr Amer 98 mL/min (>60); Estimated Creatinine Clearance 91.11 ml/min; Globulin 4.5 g/dL (2.2-4.2); Glucose 100 mg/dL (74-106); Lipase 150 U/L (73-393); Potassium 5.2 mmol/L (3.5-5.1); Protein, Total 7.6 g/dL (6.4-8.2); Sodium Level 140 mmol/L (136-145)
[2022-03-09 00:41] VITALS: BP 144/79; PULSE 75; RESP 18; O2SAT 99
== END 2022-03-09 00:41 | disposition home or self-care (01) ==
PROVIDERS: Emergency Provider Emergency Medicine; Visit Provider Emergency Medicine
DX: R10.12 Left upper quadrant pain (principal); Z68.43 Body mass index [BMI] 50.0-59.9, adult; E66.9 Obesity, unspecified; K21.9 Gastro-esophageal reflux disease without esophagitis; Z90.49 Acquired absence of other specified parts of digestive tract; Z79.899 Other long term (current) drug therapy
CPT/HCPCS: 74177; 80053; 83690; 84703; 85025; 96361; 96374; 96375; 99283; J7030; Q9967; A4216; J2405

== ENCOUNTER 2022-03-22 18:30 | Emergency (ER) | payer MEDICAID, SELFPAY ==
[2022-03-22 18:31] VITALS: BP 144/77; PULSE 86; RESP 16; TEMP 37.2; O2SAT 99; BMI 53.1
--- NOTE | 2022-03-22 19:14 | EX.ED.DYSGE1 ---
HPI History of Present Illness Chief Complaint: Syncope Informant: patient Onset/Context/Timing Onset: Today Context: Gradual Onset Timing: Intermittent and Lasts (Less than 5 minutes) Quality: Skipping, racing, pressure Location: Chest Worsened by: Nothing Relieved by: Nothing Narrative Narrative: Patient presents with a syncopal episode that occurred today. Patient states she was sitting in the break room at work when she passed out. Patient states that prior to this she felt like her heart was skipping beats and racing at times. Patient felt some pressure in her chest. Patient states her symptoms are gradually getting worse throughout the day. Patient states she tried to sit down in the break room and notes when she passed out. Patient states nothing makes it better nothing makes it worse. Patient does admit to some shortness of breath. Patient denies any nausea or vomiting. Patient denies any fevers or chills. Patient states she has an EKG on her phone and watch. Patient was able to pull this up. It showed sinus rhythm with frequent ectopic beats. [facility] Medical History History of asthma History of lupus anticoagulant disorder Insulin resistance Migraines Home Medications gabapentin 100 mg capsule 100 mg PO DAILY PRN Migraine Headache 06/15/21 [History Last Taken 06/10/21] naproxen 500 mg tablet 500 mg PO BID PRN Migraine Headache 06/15/21 [History Last Taken 06/10/21] vit no.133-ferrous fumarate 28 mg-folic acid 800 mcg tablet () 1 tab PO DAILY 06/15/21 [History Last Taken 06/15/21] promethazine 25 mg tablet 25 mg PO Q6H PRN Migraine Headache 06/15/21 [History Last Taken 06/10/21] albuterol sulfate 2.5 mg/3 mL (0.083 %) solution for nebulization 2.5 mg inhalation Q4H PRN Shortness Of Breath 07/04/21 [History Last Taken Unknown] albuterol sulfate 90 mcg/actuation aerosol inhaler 2 puff inhalation Q4H PRN Shortness Of Breath 07/04/21 [History Last Taken Unknown] aspirin 81 mg chewable tablet 162 mg PO DAILY 07/04/21 [History Last Taken Unknown] onabotulinumtoxinA 200 unit solution for injection (Botox) See Rx Instructions .Route .COMPLEX 07/13/21 [History Last Taken Unknown] chlorzoxazone 500 mg tablet tablet PO 01/17/22 [History Last Taken Unknown] cholecalciferol (vitamin D3) 50 mcg (2,000 unit) capsule 50 mcg PO DAILY 01/17/22 [History Last Taken Unknown] cyanocobalamin (vitamin B-12) 2,500 mcg tablet 2,500 mcg PO DAILY 01/17/22 [History Last Taken Unknown] famotidine 40 mg tablet 40 mg PO DAILY 01/17/22 [History Last Taken Unknown] metformin 500 mg tablet,extended release 24 hr 500 mg PO BID 01/17/22 [History Last Taken Unknown] metoprolol tartrate 50 mg tablet 50 mg PO BID #60 tabs 01/17/22 [Rx Last Taken Unknown] mv-min-vit C 1,000 mg-elderberry 50 mg-herb 35.5mg effervescent tablet (Airborne Elderberry) ea PO 01/17/22 [History Last Taken Unknown] omeprazole 40 mg capsule,delayed release 40 mg PO DAILY 01/17/22 [History Last Taken Unknown] cephalexin 500 mg capsule 500 mg PO Q6 #12 CAPSULES 03/22/22 [Rx Last Taken Unknown] Allergy/AdvReac Type Severity Reaction Status Date / Time prochlorperazine Allergy Other Verified 03/08/22 21:37 [From Compazine] Family History Mother Cancer Thyroid disorder Father Heart disease Surgical History History of cholecystectomy History of tonsillectomy Social History household members: spouse Smoking Status: Never smoker alcohol intake: never substance use type: does not use caffeine: Yes Type: coffee Number of servings: 2 ROS ROS ED Constitutional Constitutional ED: Denies chills or fever(s) Eyes Eyes: Denies blurry vision or change in vision ENT ENT ED: Denies rhinorrhea or sore throat Cardiovascular Cardiovascular: Reports chest pain and palpitations Respiratory/Chest Respiratory/Chest: Reports dyspnea; Denies cough Gastrointestinal Gastrointestinal: Denies nausea or vomiting Genitourinary Genitourinary ED: Denies dysuria or hematuria Musculoskeletal Musculoskeletal: Denies back pain or neck pain Integumentary Denies abscess or rash Neurologic Neurologic: Denies headache(s) or weakness Allergic/Immunologic Allergic/Immunologic ED: Denies mouth swelling or urticaria EXAM Physical Exam Const Vital Signs: 03/22/22 18:31 03/22/22 18:36 03/22/22 20:38 Temperature 98.9 F Temperature Source Temporal Pulse Rate 86 Pulse Rate [Lying] 87 Pulse Rate [Sitting (for 1 minute prior to obtaining)] 87 Pulse Rate [Standing (for 1 minute prior to obtaining)] 89 Respiratory Rate 16 Respiratory Pattern Normal Blood Pressure 144/77 H Blood Pressure [Lying] 141/77 H Blood Pressure [Sitting (for 1 minute prior to obtaining)] 120/61 Blood Pressure [Standing (for 1 minute prior to obtaining)] 155/89 H Blood Pressure Mean 99 Blood Pressure Mean [Lying] 98 Blood Pressure Mean [Sitting (for 1 minute prior to obtaining)] 80 Blood Pressure Mean [Standing (for 1 minute prior to obtaining)] 111 Pulse Ox 99 Oxygen Delivery Method Room Air Positive well nourished, well developed and obese General Appearance ED: well developed Nutritional Appearance: obese HEENT Reports moist mucous membranes Neck supple and no JVD Resp normal respiratory effort and clear to auscultation bilaterally Cardio regular rate, regular rhythm and no murmurs GI normal to inspection, nondistended, normoactive bowel sounds and non-tender Palpation: soft Extremity normal to inspection General Extremety ED: Negative for edema or tenderness General Extremity: Negative for edema Neuro oriented x3, CN's II-XII intact bilaterally and no sensory deficits noted Sensorium / Orientation: alert Motor Exam: strength 5/5 throughout Psych mental status grossly normal Skin no rashes or lesions noted MDM MDM MDM Narrative Medical decision making narrative: EKG was obtained. On my interpretation, it showed a normal sinus rhythm with a rate of 87. [place] interval, QRS interval, and QTc intervals were all normal. [place] was normal. There are nonspecific ST-T wave changes. Portable 1 view chest x-ray was obtained. On my interpretation, lung anderson are clear. There is normal cardiac silhouette. Bony thorax is normal. There is no acute process noted. Radiologist also interpreted the x-ray and agrees. CBC was essentially within normal limits. Serum hCG was negative. Comprehensive metabolic profile was within normal limits. Anion gap was normal. Troponin was normal. Urinalysis shows a leukocyte esterase of 100 with 10-25 white blood cells and 2+ bacteria. Urine culture was ordered. Orthostatic vital signs were obtained and were within normal limits. Patient was given a dose of Keflex here. Patient was given a prescription for Keflex. Patient was instructed to follow-up with her primary care physician and diversional therapist in 5 to 7 days. Patient understood and was agreeable with the plan. All questions were answered. Lab Data Attestation: I reviewed the patient's lab results. Labs: Laboratory Results - last 24 hr 03/22/22 03/22/22 03/22/22 18:18 18:18 19:30 WBC 10.2 RBC 5.43 H Hgb 13.8 Hct 44.1 MCV 81.2 MCH 25.4 L MCHC 31.3 L RDW Std Deviation 45.0 H RDW Coeff of Remigio 15.4 H Plt Count 228 MPV 13.1 H Immature Gran % (Auto) 0.200 Neut % (Auto) 57.9 Lymph % (Auto) 32.4 [place] % (Auto) 6.8 Eos % (Auto) 2.4 Baso % (Auto) 0.3 Absolute Neuts (auto) 5.9 Absolute Lymphs (auto) 3.32 Nucleated RBC % 0 Sodium Cancelled Potassium Cancelled Chloride Cancelled Carbon Dioxide Cancelled Anion Gap Cancelled BUN Cancelled Creatinine Cancelled Estim Creat Clear Calc Cancelled Est GFR (MDRD) Af Amer Cancelled Est GFR (MDRD) Non-Af Cancelled BUN/Creatinine Ratio Cancelled Glucose Cancelled Calcium Cancelled Total Bilirubin Cancelled AST Cancelled ALT Cancelled Alkaline Phosphatase Cancelled Troponin I High Sens Cancelled Total Protein Cancelled Albumin Cancelled Globulin Cancelled Albumin/Globulin Ratio Cancelled Serum , Qual NEGATIVE Urine Color Urine Clarity Urine pH Ur Specific [place] Urine Protein Urine Glucose (UA) Urine Ketones Urine Occult Blood Urine Nitrite Urine Bilirubin Urine Urobilinogen Ur Leukocyte Esterase Urine RBC Urine WBC Ur Squamous Epith Cells Urine Bacteria Urine Mucus 03/22/22 03/22/22 19:35 20:40 WBC RBC Hgb Hct MCV MCH MCHC RDW Std Deviation RDW Coeff of Remigio Plt Count MPV Immature Gran % (Auto) Neut % (Auto) Lymph % (Auto) [place] % (Auto) Eos % (Auto) Baso % (Auto) Absolute Neuts (auto) Absolute Lymphs (auto) Nucleated RBC % Sodium 139 Potassium 3.8 Chloride 105 Carbon Dioxide 31.0 Anion Gap 3 L BUN 14 Creatinine 0.72 Estim Creat Clear Calc 110.09 Est GFR (MDRD) Af Amer 121 Est GFR (MDRD) Non-Af 100 BUN/Creatinine Ratio 19.3 Glucose 111 H Calcium 8.9 Total Bilirubin 0.20 AST 27 ALT 42 Alkaline Phosphatase 99 Troponin I High Sens 4 Total Protein 7.6 Albumin 3.3 Globulin 4.3 H Albumin/Globulin Ratio 0.8 L Serum , Qual Urine Color Yellow Urine Clarity Clear Urine pH 6.0 Ur Specific [place] 1.020 Urine Protein Negative Urine Glucose (UA) Normal Urine Ketones Negative Urine Occult Blood Negative Urine Nitrite Negative Urine Bilirubin Negative Urine Urobilinogen Normal Ur Leukocyte Esterase 100 H Urine RBC 0-5 SEEN Urine WBC 10-25 SEEN Ur Squamous Epith Cells 0-5 SEEN Urine Bacteria 2+ Urine Mucus 0 SEEN Radiography Chest X-Ray - ED: 1 View, Read by ED Physician, Read by Radiologist, Normal and No Acute Disease Diagnostic Testing: Clinical Impression(s) from Imaging Studies Chest X-Ray 03/22/22 19:38 IMPRESSION: Normal x-ray examination of the chest. Electronically Signed: Cecil Duron MD at 20:03 EDT , Discharge Plan Triage Chief Complaint: Syncope ED Provider: Riley San Dx/Rx/DC Orders Clinical Impression: Syncope and collapse, Palpitations, Urinary tract infection Instructions: ED Fainting, Uncertain Cause, ED CYSTITIS Female Adult Prescriptions: New cephalexin [cephalexin] 500 mg capsule 500 mg PO Q6 Qty: 12 0RF No Action albuterol sulfate 90 mcg/actuation HFA aerosol inhaler 2 puff inhalation Q4H PRN (Reason: Shortness Of Breath) aspirin 81 mg tablet,chewable 162 mg PO DAILY cholecalciferol (vitamin D3) 50 mcg (2,000 unit) capsule 50 mcg PO DAILY cyanocobalamin (vitamin B-12) 2,500 mcg tablet 2,500 mcg PO DAILY Airborne Elderberry 1,000 mg-50 mg-35.5 mg tablet, effervescent PO omeprazole 40 mg capsule,delayed release(DR/EC) 40 mg PO DAILY Label Comments: TAKE 1 CAPSULE BY MOUTH ONCE DAILY IN THE MORNING FOR 90 DAYS chlorzoxazone 500 mg tablet PO famotidine 40 mg tablet 40 mg PO DAILY Label Comments: TAKE 1 TABLET BY MOUTH ONCE DAILY IN THE EVENING FOR 30 DAYS metoprolol tartrate 50 mg tablet 50 mg PO BID Qty: 60 6RF promethazine 25 mg Tablet 25 mg PO Q6H PRN (Reason: Migraine Headache) gabapentin 100 mg Capsule 100 mg PO DAILY PRN (Reason: Migraine Headache) naproxen 500 mg Tablet 500 mg PO BID PRN (Reason: Migraine Headache) 28-800 mg-mcg Tablet 1 tab PO DAILY albuterol sulfate 2.5 mg /3 mL (0.083 %) solution for nebulization 2.5 mg inhalation Q4H PRN (Reason: Shortness Of Breath) metformin 500 mg tablet extended release 24 hr 500 mg PO BID Botox 200 unit Recon Soln See Rx Instructions .ROUTE .COMPLEX Rx Instructions: 200 unit subcutaneously every 3 months Primary Care Provider: LUCIANA PARKER Referrals: LUCIANA PARKER [Other] - 5-7 Days Disposition Disposition: Home, Self Care
--- NOTE | 2022-03-22 19:19 | EKG12_ITS ---
Test Reason : SYNCOPE Blood Pressure : / mmHG Vent. Rate : 087 BPM Atrial Rate : 087 BPM P-R Int : 172 ms QRS Dur : 080 ms QT Int : 302 ms P-R-T Axes : 044 029 054 degrees QTc Int : 363 ms Normal sinus rhythm Nonspecific T wave abnormality Abnormal ECG Confirmed by STEPHANIE GALEANO, LASHONDA ([id number]), brands editor AMBIKA TELLO ([id number]) on 03/24/2022 10:32:57 A M Referred By: ASHOK Confirmed By:TAMAR BROWN MD
--- NOTE | 2022-03-22 19:38 | RAD_ITS ---
STUDY: X-RAY CHEST REASON FOR EXAM: Female, 32 years old. Syncope TECHNIQUE: AP portable COMPARISON: 11/19/2021 FINDINGS: The lungs are clear and expanded. There is no demonstrated pleural abnormality. Normal size heart. Normal mediastinum and rolando. Normal visualized pulmonary arteries. Normal visualized aortic arch and descending thoracic aorta. Normal visualized thoracic spine. Normal visualized ribs, clavicles, and shoulders. There is no demonstrated abnormality of the visualized soft tissue structures of the upper abdomen. No significant change since prior exam RAD/Chest 1 View (Portable) IMPRESSION: Normal x-ray examination of the chest. Electronically Signed: Cecil Duron MD at 20:03 EDT ,
[2022-03-22 19:41] LABS: Absolute Lymphocyte Count 3.32 X10^3/uL (0.83-4.51); Absolute Neutrophil Count 5.9 X10^3/uL (2.0-7.7); Basophil# 0.03 X10^3/uL; Basophil% 0.3 % (0-1); Eosinophil# 0.25 X10^3/uL; Eosinophils% 2.4 % (0-5); Hematocrit 44.1 % (37-47); Hemoglobin 13.8 g/dL (12.0-15.0); Lymphocyte # 3.32 X10^3/ul (0.83-4.51); Lymphocyte % 32.4 % (19-41); Mean Corp Hgb Conc 31.3 g/dL (32-36); Mean Corpuscular Hgb 25.4 pg (27.0-32.0); Mean Corpuscular Volume 81.2 fL (81-99); Mean Platelet Vol. 13.1 fl (6.2-12.0); Monocyte% 6.8 % (0-10); NRBC Flagged by Analyzer 0 % (0-5); Neutrophil # 5.92 X10^3/uL (2.7-7.7); Neutrophil % 57.9 % (47-70); Platelet Count 228 K/mm3 (150-450); RBC Distribution Width CV 15.4 % (11.6-14.6); Red Blood Count 5.43 M/mm3 (4.2-5.4); White Blood Count 10.2 K/mm3 (4.4-11.0)
[2022-03-22 19:43] LABS: Mucous, Urine 0 SEEN /hpf (<or=2+)
[2022-03-22 19:48] LABS: Color, Urine Yellow (Yellow); Glucose, Dipstick Normal (Normal); Ketone-Dipstick Negative (Negative); Leukocyte Esterase-Dipstick 100 /ul (Negative); Nitrite-Dipstick Negative (Negative); Occult Blood-Urine Negative /ul (Negative); Protein-Dipstick Negative (Negative); Urine Bilirubin Dipstick Negative (Negative); Urine Clarity Clear (Clear); Urine Urobilinogen Normal (Normal)
[2022-03-22 19:58] LABS: Internal QC Validated? YES +Cl - CLEAR BKGD; Pregnancy, Serum, hCG Quali. NEGATIVE Negative
[2022-03-22 20:38] VITALS: BP 120/61; BP 141/77; BP 155/89; PULSE 87; PULSE 89
[2022-03-22 21:17] LABS: ALB/GLOB Ratio 0.8 RATIO (0.9-2.4); AST(SGOT) 27 U/L (15-37); Alanine Aminotransfer ALT/SGPT 42 U/L (13-56); Albumin, Serum 3.3 g/dL (3.2-5.0); Alkaline Phosphatase 99 U/L (45-117); Anion Gap 3 (5-15); BUN 14 mg/dL (7-18); BUN/Creat Ratio 19.3 RATIO (10-20); Calcium,Total 8.9 mg/dL (8.5-10.1); Chloride 105 mmol/L (98-107); Creatinine, Serum 0.72 mg/dL (0.55-1.02); EST Glomerular Filtration Rate 100 mL/min (>60); Est Glom Filt Rate - Afr Amer 121 mL/min (>60); Estimated Creatinine Clearance 110.09 ml/min; Globulin 4.3 g/dL (2.2-4.2); Glucose 111 mg/dL (74-106); Potassium 3.8 mmol/L (3.5-5.1); Protein, Total 7.6 g/dL (6.4-8.2); Sodium Level 139 mmol/L (136-145); Troponin-I HS 4 pg/mL (3.0-54.0)
[2022-03-22 21:22] LABS: Bacteria 2+ /hpf (None Seen); Red Blood Cells-Urine 0-5 SEEN /hpf (0-5); Squamous Epithelial Cells - UA 0-5 SEEN /hpf (5-10); White Blood Cells 10-25 SEEN /hpf (0-5)
[2022-03-22] MEDS: Cephalexin 500 MG Capsule PO (22:10)
[2022-03-22 22:17] VITALS: BP 138/74; PULSE 79; RESP 16; O2SAT 99
== END 2022-03-22 22:17 | disposition home or self-care (01) ==
PROVIDERS: Emergency Provider Emergency Medicine; Visit Provider Emergency Medicine
DX: N30.90 Cystitis, unspecified without hematuria (principal); R55 Syncope and collapse; J45.909 Unspecified asthma, uncomplicated; E66.9 Obesity, unspecified; R00.2 Palpitations
CPT/HCPCS: 71045; 80053; 81001; 84484; 84703; 85025; 87086; 87088; 87186; 93005; 99285; J7030; A4216

== ENCOUNTER → 2022-05-04 | Outpatient (CLI) | payer MEDICAID, SELFPAY | END | disposition home or self-care (01) | LOC: SL 20:30 | PROVIDERS: Referring Provider Nurse Practitioner Family; Visit Provider Nurse Practitioner Family | DX: G47.10 Hypersomnia, unspecified (principal) | CPT/HCPCS: 95810; 95811 ==

== ENCOUNTER → 2022-07-10 | Outpatient (CLI) | payer MEDICAID, SELFPAY | END | disposition home or self-care (01) | LOC: SL 09:48 | PROVIDERS: Visit Provider Nurse Practitioner Acute Care | DX: G47.10 Hypersomnia, unspecified (principal) ==

== ENCOUNTER 2022-08-28 07:00 | Day surgery (SDC) | payer MEDICAID, SELFPAY ==
[2022-08-25 12:39] LABS: Hematocrit 41.4 % (37-47); Hemoglobin 13.2 g/dL (12.0-15.0); Mean Corp Hgb Conc 31.9 g/dL (32-36); Mean Corpuscular Hgb 25.8 pg (27.0-32.0); Mean Platelet Vol. 12.1 fl (6.2-12.0); Platelet Count 271 K/mm3 (150-450); RBC Distribution Width CV 14.6 % (11.6-14.6); RBC Distribution Width SD 42.6 fl (35.1-43.9); Red Blood Count 5.11 M/mm3 (4.2-5.4)
[2022-08-25 12:43] LABS: International Normalized Ratio 1.1; Prothrombin Time (Protime)PT. 14.1 SECONDS (11.7-14.9)
[2022-08-25 13:24] LABS: Anion Gap 6 (5-15); BUN 14 mg/dL (7-18); BUN/Creat Ratio 17.3 RATIO (10-20); Calcium,Total 8.5 mg/dL (8.5-10.1); Chloride 106 mmol/L (98-107); Creatinine, Serum 0.81 mg/dL (0.55-1.02); EST Glomerular Filtration Rate 88 mL/min (>60); Est Glom Filt Rate - Afr Amer 106 mL/min (>60); Glucose 117 mg/dL (74-106); Potassium 3.3 mmol/L (3.5-5.1); Sodium Level 138 mmol/L (136-145)
[2022-08-25 13:50] VITALS: BMI 51.7
--- NOTE | 2022-08-28 08:11 | CL.IE_ITS ---
Patient: AMBIKA BROWN Study Date: 08/28/2022 Performing: John Conrad MD : 1990 Age: 32 Gender: female PROCEDURES PERFORMED [id number])INSERTION OF LOOP RECORDER INDICATIONS Syncope PROCEDURE DETAILS The patient was brought to the Catheterization Lab in the postabsorptive nonsedated state. Informed consent was obtained prior to the procedure. Local anesthetic was given subcutaneously to the left upper chest area with Lidocaine 2%. ICM Loop Recorder was inserted. Steri-strips applied to Lt chest area. The patient tolerated the procedure well. Estimated Blood Loss: < 10 mls IMPLANTED / EX-PLANTED DEVICES IMPLANTED DEVICE(S): ICM Loop Recorder - Currency Exchange Specialist: [employer], Model # [id number] , Serial # [id number] DEVICE PARAMETERS CONCLUSIONS / RECOMMENDATIONS Device Conclusions: Successful implantation of a patient activated loop recorder. Device Recommendations: Follow up with Primary Care Physician PROCEDURE MEDICATIONS Fentanyl 50 mcg IV Versed 1 mg IV Oxygen: 2 L/min via nasal cannula Antibiotic given in appropriate timeframe. Ancef 2 Gm IV @ 08/28/2022 07:52:05 Signed By John Conrad MD On 08/28/2022 08:10:55 John Conrad MD
== END 2022-08-28 09:05 | disposition home or self-care (01) ==
LOC: CLSP 07:00
PROVIDERS: Physician Assistant Medical; Referring Provider Internal Medicine Cardiovascular Disease; Visit Provider Internal Medicine Cardiovascular Disease
DX: R55 Syncope and collapse (principal); I47.1 Supraventricular tachycardia; I10 Essential (primary) hypertension; Z79.899 Other long term (current) drug therapy; Z79.82 Long term (current) use of aspirin
CPT/HCPCS: 33285; 36415; 80048; 85027; 85610; 99152; J7040

== ENCOUNTER 2022-09-14 18:43 | Emergency (ER) | payer MEDICAID, SELFPAY ==
[2022-09-14 18:45] VITALS: BP 139/98; PULSE 104; RESP 16; TEMP 36.4; O2SAT 98; BMI 23.6
--- NOTE | 2022-09-14 19:08 | US_ITS ---
INDICATION: cramping EXAMINATION: Ultrasound US OB Transvaginal TECHNIQUE: Transabdominal pelvic ultrasound was performed. Grayscale, spectral waveform, and color flow Doppler evaluation of the adnexa. COMPARISON: None. LMP: [Unknown Beta-hCG: Unknown FINDINGS: UTERUS: 8.5 x 5.2 x 4 cm. RIGHT OVARY: 3.7 x 3 x 2.7 cm. Small cyst measuring 1.9 1.6 x 1.7 cm. LEFT OVARY: 5 x 3.2 x 2.4 cm. Complex cyst measuring 2.5 x 2.1 x 1.5 cm. FREE FLUID: Minimal. No evidence for intrauterine gestational sac. IMPRESSION: US/Transvaginal w/Preg US IMPRESSION: No evidence for intrauterine gestation. . No definitive evidence for ectopic however, there is a complex cyst in left ovary with minimal fluid in the cul-de-sac and ectopic cannot be entirely excluded. Would recommend clinical correlation and follow-up studies Electronically Signed: Cecil Duron MD at 20:52 EST ,
--- NOTE | 2022-09-14 19:10 | EDS_ITS ---
HPI HPI - Female History of Present Illness Chief Complaint: Informant: patient Narrative Narrative: Patient presents with concern for ectopic. This patient has had a prior ectopic. This was about a year and a half ago. He was treated medically and without surgery. 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 She is currently about 5 weeks . Last menstrual cycle was 10 August. She also has a history of lupus anticoagulant. 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 For this reason, she is also on Lovenox at this time. She states she has been having cramping for about 5 days. It was a little bit worse today and she just got concerned. She has not had any bleeding whatsoever. No discharge. She urinates frequently but no dysuria urgency. She has no nausea vomiting. No fevers. She does not feel ill. She has never had lightheadedness or near syncope or syncope. She has not felt ill recently. No rashes. No bleeding. Patient is borderline diabetic. Although her med list shows metformin she is currently off of this and has been for some months. She was working on her diet and her last A1c was 6.1. I did review the past medical surgical history along with medicines and allergies and family history on the computer. She sees Dr. Medrano in [place] for her obstetrics. She has an appointment tomorrow actually. Plan was for ultrasound at that time. [facility] Medical History History of asthma History of lupus anticoagulant disorder Insulin resistance Migraines SVT (supraventricular tachycardia) Home Medications gabapentin 100 mg capsule 100 mg PO DAILY PRN Migraine Headache 06/15/21 [History Last Taken 06/10/21] naproxen 500 mg tablet 500 mg PO BID PRN Migraine Headache 06/15/21 [History Last Taken 06/10/21] vit no.133-ferrous fumarate 28 mg-folic acid 800 mcg tablet () 1 tab PO DAILY 06/15/21 [History Last Taken 06/15/21] promethazine 25 mg tablet 25 mg PO Q6H PRN Migraine Headache 06/15/21 [History Last Taken 06/10/21] albuterol sulfate 2.5 mg/3 mL (0.083 %) solution for nebulization 2.5 mg inhalation Q4H PRN Shortness Of Breath 07/04/21 [History Last Taken Unknown] albuterol sulfate 90 mcg/actuation aerosol inhaler 2 puff inhalation Q4H PRN Shortness Of Breath 07/04/21 [History Last Taken Unknown] aspirin 81 mg chewable tablet 162 mg PO DAILY 07/04/21 [History Last Taken Unknown] onabotulinumtoxinA 200 unit solution for injection (Botox) See Rx Instructions .Route .COMPLEX 07/13/21 [History Last Taken Unknown] cholecalciferol (vitamin D3) 50 mcg (2,000 unit) capsule 50 mcg PO DAILY 01/17/22 [History Last Taken Unknown] cyanocobalamin (vitamin B-12) 2,500 mcg tablet 2,500 mcg PO DAILY 01/17/22 [History Last Taken Unknown] famotidine 40 mg tablet 40 mg PO DAILY 01/17/22 [History Last Taken Unknown] metoprolol tartrate 50 mg tablet 50 mg PO BID #60 tabs 01/17/22 [Rx Last Taken Unknown] mv-min-vit C 1,000 mg-elderberry 50 mg-herb 35.5mg effervescent tablet (Airborne Elderberry) ea PO 01/17/22 [History Last Taken Unknown] omeprazole 40 mg capsule,delayed release 40 mg PO DAILY 01/17/22 [History Last Taken Unknown] metformin 1,000 mg tablet 1,000 mg PO BID 06/09/22 [History Last Taken Unknown] lisinopril 5 mg tablet 5 mg PO DAILY #30 tabs 08/08/22 [Rx Last Taken Unknown] potassium chloride 10 mEq capsule,extended release 10 meq PO DAILY #90 caps 08/29/22 [Rx Last Taken Unknown] fluticasone propionate 50 mcg/actuation nasal spray,suspension 2 spray intranasal DAILY #18.2 mL 09/07/22 [Rx Last Taken Unknown] loratadine 10 mg tablet (Allergy Relief (loratadine)) 10 mg PO DAILY #90 tabs 09/07/22 [Rx Last Taken Unknown] Allergy/AdvReac Type Severity Reaction Status Date / Time prochlorperazine Allergy Other Verified 09/14/22 18:44 [From Compazine] Family History Mother Cancer Thyroid disorder Father Heart disease Surgical History History of cholecystectomy History of electrophysiologic study (02/13/22) History of tonsillectomy Social History household members: spouse Smoking Status: Never smoker alcohol intake: never substance use type: does not use caffeine: Yes Type: coffee Number of servings: 2 EXAM Physical Exam Narrative Exam Narrative: Patient is awake and alert. She is in no acute distress. She looks comfortable. She is not pale. She is not diaphoretic. Her lungs are clear. Heart is regular. She is not tachycardic. Abdomen shows no tenderness. No CVA tenderness. Extremities show no tenderness or edema. Patient is awake alert. Const Vital Signs: 09/14/22 18:45 09/14/22 22:56 Temperature 97.6 F L Temperature Source Temporal Pulse Rate 104 H 106 H Respiratory Rate 16 16 Blood Pressure 139/98 H 145/78 H Blood Pressure Mean 111 100 Pulse Ox 98 99 Oxygen Delivery Method Room Air Room Air MDM MDM MDM Narrative Medical decision making narrative: Pelvic ultrasound read by radiology and reviewed by me showed no sign of ectopic. But there is also no intrauterine . This patient has had multiple miscarriage has a complex history. We did do blood work in case she starts bleeding so we have a baseline. Hemoglobin was normal as was white count and platelets. Urine showed no sign of infection. Electrolytes showed minimal elevation of the chloride and glucose but normal renal function and remainder of electrolytes quantitative beta-hCG was only 120. I did discuss the case with the patient's physician, Dr. Aureliano Umanzor. He has an appointment to see her tomorrow. They are going to do another ultrasound tomorrow. I am going to print off a CD of the patient's ultrasound to send with her. When I talk with the patient again, she states that she had an ultrasound on 26 August that stated she would likely ovulate within 7 days. This means she may be less than 2 weeks . This may be consistent with her low quant and ultrasound. I do not think she needs admission or surgery for ectopic. She is comfortable. There is no bleeding. No sign of ectopic on the ultrasound and she has follow-up in less than 24 hours. Lab Data Attestation: I reviewed the patient's lab results. Labs: Laboratory Results - last 24 hr 09/14/22 09/14/22 09/14/22 19:15 19:25 19:25 WBC 9.8 RBC 4.93 Hgb 12.7 Hct 39.2 MCV 79.5 L MCH 25.8 L MCHC 32.4 RDW Std Deviation 44.0 H RDW Coeff of Remigio 15.5 H Plt Count 272 MPV 11.4 Immature Gran % (Auto) 0.300 Neut % (Auto) 60.7 Lymph % (Auto) 28.2 [place] % (Auto) 7.6 Eos % (Auto) 2.9 Baso % (Auto) 0.3 Absolute Neuts (auto) 5.9 Absolute Lymphs (auto) 2.76 Nucleated RBC % 0 Sodium Potassium Chloride Carbon Dioxide Anion Gap BUN Creatinine Estim Creat Clear Calc Est GFR (MDRD) Af Amer Est GFR (MDRD) Non-Af BUN/Creatinine Ratio Glucose Calcium HCG, Quant 120 H Urine Color Yellow Urine Clarity Clear Urine pH 6.5 Ur Specific [place] 1.015 Urine Protein Negative Urine Glucose (UA) Normal Urine Ketones Negative Urine Occult Blood Negative Urine Nitrite Negative Urine Bilirubin Negative Urine Urobilinogen Normal Ur Leukocyte Esterase 25 H Urine RBC 0 SEEN Urine WBC 0-5 SEEN Ur Squamous Epith Cells 0-5 SEEN Urine Bacteria 1+ Urine Mucus 0 SEEN 09/14/22 19:25 WBC RBC Hgb Hct MCV MCH MCHC RDW Std Deviation RDW Coeff of Remigio Plt Count MPV Immature Gran % (Auto) Neut % (Auto) Lymph % (Auto) [place] % (Auto) Eos % (Auto) Baso % (Auto) Absolute Neuts (auto) Absolute Lymphs (auto) Nucleated RBC % Sodium 139 Potassium 3.9 Chloride 109 H Carbon Dioxide 22.0 Anion Gap 8 BUN 12 Creatinine 0.66 Estim Creat Clear Calc 120.10 Est GFR (MDRD) Af Amer 134 Est GFR (MDRD) Non-Af 111 BUN/Creatinine Ratio 18.2 Glucose 119 H Calcium 8.7 HCG, Quant Urine Color Urine Clarity Urine pH Ur Specific [place] Urine Protein Urine Glucose (UA) Urine Ketones Urine Occult Blood Urine Nitrite Urine Bilirubin Urine Urobilinogen Ur Leukocyte Esterase Urine RBC Urine WBC Ur Squamous Epith Cells Urine Bacteria Urine Mucus Radiography Diagnostic Testing: Clinical Impression(s) from Imaging Studies Obstetrics Ultrasound 09/14/22 19:08 IMPRESSION: No evidence for intrauterine gestation. . No definitive evidence for ectopic however, there is a complex cyst in left ovary with minimal fluid in the cul-de-sac and ectopic cannot be entirely excluded. Would recommend clinical correlation and follow-up studies Electronically Signed: Cecil Duron MD at 20:52 EST Reading Location ID and State: [facility] / [place] , Service support , Discharge Plan Triage Chief Complaint: ED Provider: Richy Dumont Dx/Rx/DC Orders Clinical Impression: Pelvic cramping, First trimester screening Instructions: ED Abdominal Pain, Early Prescriptions: No Action albuterol sulfate 90 mcg/actuation HFA aerosol inhaler 2 puff inhalation Q4H PRN (Reason: Shortness Of Breath) aspirin 81 mg tablet,chewable 162 mg PO DAILY lisinopril 5 mg tablet 5 mg PO DAILY Qty: 30 12RF cholecalciferol (vitamin D3) 50 mcg (2,000 unit) capsule 50 mcg PO DAILY cyanocobalamin (vitamin B-12) 2,500 mcg tablet 2,500 mcg PO DAILY Airborne Elderberry 1,000 mg-50 mg-35.5 mg tablet, effervescent PO omeprazole 40 mg capsule,delayed release(DR/EC) 40 mg PO DAILY Label Comments: TAKE 1 CAPSULE BY MOUTH ONCE DAILY IN THE MORNING FOR 90 DAYS famotidine 40 mg tablet 40 mg PO DAILY Label Comments: TAKE 1 TABLET BY MOUTH ONCE DAILY IN THE EVENING FOR 30 DAYS metoprolol tartrate 50 mg tablet 50 mg PO BID Qty: 60 6RF metformin 1,000 mg tablet 1,000 mg PO BID loratadine [Allergy Relief (loratadine)] 10 mg tablet 10 mg PO DAILY Qty: 90 3RF fluticasone propionate 50 mcg/actuation spray,suspension 2 spray intranasal DAILY Qty: 18.2 3RF Rx Instructions: administer into each nostril promethazine 25 mg Tablet 25 mg PO Q6H PRN (Reason: Migraine Headache) gabapentin 100 mg Capsule 100 mg PO DAILY PRN (Reason: Migraine Headache) naproxen 500 mg Tablet 500 mg PO BID PRN (Reason: Migraine Headache) 28-800 mg-mcg Tablet 1 tab PO DAILY albuterol sulfate 2.5 mg /3 mL (0.083 %) solution for nebulization 2.5 mg inhalation Q4H PRN (Reason: Shortness Of Breath) Botox 200 unit Recon Soln See Rx Instructions .ROUTE .COMPLEX Rx Instructions: 200 unit subcutaneously every 3 months potassium chloride 10 mEq capsule, extended release 10 meq PO DAILY Qty: 90 3RF Primary Care Provider: Care Physician,No Primary Referrals: Care Physician,No Primary [Primary Care Provider] - Activity Restrictions/Additional Instructions: Keep your appointment with Dr. Morris as scheduled tomorrow. Disposition Disposition: Home, Self Care
[2022-09-14 19:32] LABS: Mucous, Urine 0 SEEN /hpf (<or=2+); Red Blood Cells-Urine 0 SEEN /hpf (0-5)
[2022-09-14 19:35] LABS: Color, Urine Yellow (Yellow); Glucose, Dipstick Normal (Normal); Ketone-Dipstick Negative (Negative); Leukocyte Esterase-Dipstick 25 /ul (Negative); Nitrite-Dipstick Negative (Negative); Occult Blood-Urine Negative /ul (Negative); Protein-Dipstick Negative (Negative); Specific Gravity, Urine 1.015 (1.002-1.030); Urine Bilirubin Dipstick Negative (Negative); Urine Clarity Clear (Clear); Urine Urobilinogen Normal (Normal); Urine pH 6.5 (5.0 - 8.0)
[2022-09-14 19:37] LABS: Absolute Lymphocyte Count 2.76 X10^3/uL (0.83-4.51); Absolute Neutrophil Count 5.9 X10^3/uL (2.0-7.7); Basophil# 0.03 X10^3/uL; Basophil% 0.3 % (0-1); Eosinophil# 0.28 X10^3/uL; Eosinophils% 2.9 % (0-5); Hematocrit 39.2 % (37-47); Hemoglobin 12.7 g/dL (12.0-15.0); Lymphocyte # 2.76 X10^3/ul (0.83-4.51); Lymphocyte % 28.2 % (19-41); Mean Corp Hgb Conc 32.4 g/dL (32-36); Mean Corpuscular Hgb 25.8 pg (27.0-32.0); Mean Corpuscular Volume 79.5 fL (81-99); Mean Platelet Vol. 11.4 fl (6.2-12.0); Monocyte# 0.74 X10^3/uL; Monocyte% 7.6 % (0-10); NRBC Flagged by Analyzer 0 % (0-5); Neutrophil # 5.94 X10^3/uL (2.7-7.7); Neutrophil % 60.7 % (47-70); Platelet Count 272 K/mm3 (150-450); RBC Distribution Width CV 15.5 % (11.6-14.6); Red Blood Count 4.93 M/mm3 (4.2-5.4); White Blood Count 9.8 K/mm3 (4.4-11.0)
[2022-09-14 19:49] LABS: Bacteria 1+ /hpf (None Seen); Squamous Epithelial Cells - UA 0-5 SEEN /hpf (5-10); White Blood Cells 0-5 SEEN /hpf (0-5)
[2022-09-14 19:50] LABS: Anion Gap 8 (5-15); BUN 12 mg/dL (7-18); BUN/Creat Ratio 18.2 RATIO (10-20); Calcium,Total 8.7 mg/dL (8.5-10.1); Chloride 109 mmol/L (98-107); Creatinine, Serum 0.66 mg/dL (0.55-1.02); EST Glomerular Filtration Rate 111 mL/min (>60); Est Glom Filt Rate - Afr Amer 134 mL/min (>60); Glucose 119 mg/dL (74-106); Potassium 3.9 mmol/L (3.5-5.1); Sodium Level 139 mmol/L (136-145)
[2022-09-14 19:53] LABS: hCG Titer Quant., Serum 120 mIU/mL (1-3)
[2022-09-14 22:56] VITALS: BP 145/78; PULSE 106; RESP 16; O2SAT 99
== END 2022-09-14 23:43 | disposition home or self-care (01) ==
PROVIDERS: Emergency Provider Emergency Medicine; Visit Provider Emergency Medicine
DX: O99.891 Other specified diseases and conditions complicating pregnancy (principal); D68.62 Lupus anticoagulant syndrome; O99.111 Other diseases of the blood and blood-forming organs and certain disorders involving the immune mechanism complicating pregnancy, first trimester; R10.2 Pelvic and perineal pain; O26.21 Pregnancy care for patient with recurrent pregnancy loss, first trimester; Z3A.01 Less than 8 weeks gestation of pregnancy; Z79.82 Long term (current) use of aspirin; Z79.899 Other long term (current) drug therapy
CPT/HCPCS: 76817; 80048; 81001; 84702; 85025; 99283; A4216

== ENCOUNTER → 2022-09-16 | Outpatient (CLI) | payer MEDICAID, SELFPAY ==
[2022-09-16 09:22] LABS: hCG Titer Quant., Serum 260 mIU/mL (1-3)
== END | disposition home or self-care (01) ==
DX: Z34.90 Encounter for supervision of normal pregnancy, unspecified, unspecified trimester (principal)
CPT/HCPCS: 36415; 84702

== ENCOUNTER 2022-09-23 00:07 | Emergency (ER) | payer MEDICAID, SELFPAY ==
[2022-09-23 00:08] VITALS: BP 152/90; PULSE 127; RESP 15; TEMP 36.8; O2SAT 100; BMI 51.7
--- NOTE | 2022-09-23 00:50 | EKG12_ITS ---
Test Reason : DYSRHYTHMIA Blood Pressure : / mmHG Vent. Rate : 108 BPM Atrial Rate : 108 BPM P-R Int : 184 ms QRS Dur : 078 ms QT Int : 352 ms P-R-T Axes : 057 033 030 degrees QTc Int : 471 ms Sinus tachycardia with occasional Premature ventricular complexes Nonspecific T wave abnormality Abnormal ECG Confirmed by JARRELL GALEANO, ALLI ([id number]), film editor supervisor AMBIKA TELLO ([id number]) on 09/25/2022 12:09:39 PM Referred By: SHMUEL Confirmed By:ALLI VIEYRA MD
[2022-09-23 01:08] LABS: Absolute Lymphocyte Count 2.99 X10^3/uL (0.83-4.51); Absolute Neutrophil Count 7.1 X10^3/uL (2.0-7.7); Basophil# 0.05 X10^3/uL; Basophil% 0.5 % (0-1); Eosinophil# 0.16 X10^3/uL; Eosinophils% 1.4 % (0-5); Hematocrit 38.5 % (37-47); Hemoglobin 12.1 g/dL (12.0-15.0); Lymphocyte # 2.99 X10^3/ul (0.83-4.51); Lymphocyte % 26.9 % (19-41); Mean Corp Hgb Conc 31.4 g/dL (32-36); Mean Corpuscular Hgb 25.9 pg (27.0-32.0); Mean Corpuscular Volume 82.3 fL (81-99); Mean Platelet Vol. 12.1 fl (6.2-12.0); Monocyte# 0.77 X10^3/uL; Monocyte% 6.9 % (0-10); NRBC Flagged by Analyzer 0 % (0-5); Neutrophil # 7.11 X10^3/uL (2.7-7.7); Platelet Count 231 K/mm3 (150-450); RBC Distribution Width CV 16.1 % (11.6-14.6); RBC Distribution Width SD 47.7 fl (35.1-43.9); Red Blood Count 4.68 M/mm3 (4.2-5.4); White Blood Count 11.1 K/mm3 (4.4-11.0)
[2022-09-23 01:28] LABS: Anion Gap 8 (5-15); BUN 9 mg/dL (7-18); BUN/Creat Ratio 11.7 RATIO (10-20); Calcium,Total 8.2 mg/dL (8.5-10.1); Chloride 109 mmol/L (98-107); Creatinine, Serum 0.77 mg/dL (0.55-1.02); EST Glomerular Filtration Rate 93 mL/min (>60); Est Glom Filt Rate - Afr Amer 112 mL/min (>60); Estimated Creatinine Clearance 102.94 ml/min; Glucose 139 mg/dL (74-106); Magnesium 1.9 mg/dL (1.6-2.6); Potassium 3.4 mmol/L (3.5-5.1); Sodium Level 140 mmol/L (136-145)
--- NOTE | 2022-09-23 02:22 | EDS_ITS ---
HPI History of Present Illness Chief Complaint: Palpitations Narrative Narrative: Patient is a 32-year-old female with past medical history of supraventricular tachycardia as well as recurrent palpitations/PVCs and hypertension. She states that she has a loop recorder in place secondary to her recurrent symptoms of palpitations. She states that she stopped all of her medication except Lovenox because she is approximately 6 weeks . She states this evening she was lying in bed and felt palpitations which she felt were more intense than her normal and secondary to this comes to the hospital for evaluation [facility] Medical History History of asthma History of lupus anticoagulant disorder Insulin resistance Migraines SVT (supraventricular tachycardia) Home Medications gabapentin 100 mg capsule 100 mg PO DAILY PRN Migraine Headache 06/15/21 [History Last Taken 06/10/21] naproxen 500 mg tablet 500 mg PO BID PRN Migraine Headache 06/15/21 [History Last Taken 06/10/21] vit no.133-ferrous fumarate 28 mg-folic acid 800 mcg tablet () 1 tab PO DAILY 06/15/21 [History Last Taken 06/15/21] promethazine 25 mg tablet 25 mg PO Q6H PRN Migraine Headache 06/15/21 [History Last Taken 06/10/21] albuterol sulfate 2.5 mg/3 mL (0.083 %) solution for nebulization 2.5 mg inhalation Q4H PRN Shortness Of Breath 07/04/21 [History Last Taken Unknown] albuterol sulfate 90 mcg/actuation aerosol inhaler 2 puff inhalation Q4H PRN Shortness Of Breath 07/04/21 [History Last Taken Unknown] aspirin 81 mg chewable tablet 162 mg PO DAILY 07/04/21 [History Last Taken Unknown] onabotulinumtoxinA 200 unit solution for injection (Botox) See Rx Instructions .Route .COMPLEX 07/13/21 [History Last Taken Unknown] cholecalciferol (vitamin D3) 50 mcg (2,000 unit) capsule 50 mcg PO DAILY 01/17/22 [History Last Taken Unknown] cyanocobalamin (vitamin B-12) 2,500 mcg tablet 2,500 mcg PO DAILY 01/17/22 [History Last Taken Unknown] famotidine 40 mg tablet 40 mg PO DAILY 01/17/22 [History Last Taken Unknown] metoprolol tartrate 50 mg tablet 50 mg PO BID #60 tabs 01/17/22 [Rx Last Taken Unknown] mv-min-vit C 1,000 mg-elderberry 50 mg-herb 35.5mg effervescent tablet (Airborne Elderberry) ea PO 01/17/22 [History Last Taken Unknown] omeprazole 40 mg capsule,delayed release 40 mg PO DAILY 01/17/22 [History Last Taken Unknown] metformin 1,000 mg tablet 1,000 mg PO BID 06/09/22 [History Last Taken Unknown] potassium chloride 10 mEq capsule,extended release 10 meq PO DAILY #90 caps 08/29/22 [Rx Last Taken Unknown] fluticasone propionate 50 mcg/actuation nasal spray,suspension 2 spray intranasal DAILY #18.2 mL 09/07/22 [Rx Last Taken Unknown] loratadine 10 mg tablet (Allergy Relief (loratadine)) 10 mg PO DAILY #90 tabs 09/07/22 [Rx Last Taken Unknown] nifedipine 30 mg tablet,extended release 30 mg PO DAILY #30 tabs 09/18/22 [Rx Last Taken Unknown] Allergy/AdvReac Type Severity Reaction Status Date / Time prochlorperazine Allergy Other Verified 09/23/22 00:13 [From Compazine] Family History Mother Cancer Thyroid disorder Father Heart disease Surgical History History of cholecystectomy History of electrophysiologic study (02/13/22) History of tonsillectomy Social History household members: spouse Smoking Status: Never smoker alcohol intake: never substance use type: does not use caffeine: Yes Type: coffee Number of servings: 2 ROS ROS ED Constitutional Constitutional ED: Denies chills or fever(s) ENT ENT ED: Denies sore throat Cardiovascular Cardiovascular: Reports palpitations and racing heartbeat; Denies chest pain Respiratory/Chest Respiratory/Chest: Denies cough or dyspnea Gastrointestinal Gastrointestinal: Denies abdominal pain, diarrhea, nausea or vomiting Genitourinary Genitourinary ED: Denies dysuria Musculoskeletal Musculoskeletal: Denies myalgias Integumentary Denies rash Neurologic Neurologic: Denies headache(s) Hematologic/Lymphatic Hematologic/Lymphatic: Reports easy bleeding and easy bruising EXAM Physical Exam Const Vital Signs: 09/23/22 00:08 09/23/22 01:06 09/23/22 02:50 Temperature 98.3 F Temperature Source Temporal Pulse Rate 127 H 89 Respiratory Rate 15 18 Respiratory Effort Normal Blood Pressure 152/90 H 142/88 H Blood Pressure Mean 110 Pulse Ox 100 100 Oxygen Delivery Method Room Air Positive well nourished, well developed and obese General Appearance ED: well developed Nutritional Appearance: obese HEENT Reports moist mucous membranes Eyes PERRL and EOMs intact bilaterally Neck supple Neck Narrative: No nodule or goiter noted across the thyroid Chest Wall palpation of chest normal Resp normal respiratory effort and clear to auscultation bilaterally Cardio regular rhythm Rate: tachycardic and other Other Details: Tachycardic rate with regular rhythm. There is an occasional ectopic beat noted Radial pulses are +2-4 bilaterally are equal and symmetric GI normal to inspection, nondistended, normoactive bowel sounds, non-tender, non- distended and no masses GI Narrative: No voluntary guarding or rigidity no pulsatile mass Auscultation: normoactive bowel sounds Palpation: soft Extremity normal to inspection Extremity Narrative: Negative Homans' sign bilaterally Neuro oriented x3 and CN's II-XII intact bilaterally Sensorium / Orientation: alert Psych mental status grossly normal Skin no rashes or lesions noted MDM MDM MDM Narrative Medical decision making narrative: Patient presented to the ER slightly hypertensive and tachycardic with an occasional PVC. This is consistent with her past medical history. However as she reported she felt this evening symptoms are more intense I like to perform basic laboratory studies. Labs revealed no signs of acute kidney injury anemia or severe electrolyte disturbance. EKG shows sinus tachycardia with occasional PVC consistent with her physical exam. As she is on Lovenox I do not feel there is need to provide radiation as chance for PE is low and I do not wish to risk radiation to the unborn fetus at this time. Patient was watched in the ER and without any medication her heart rate reduced to normal sinus at 89. Therefore at this time with improvement of symptoms spontaneously and negative work-up there is no need for further evaluation and patient can be discharged home and follow-up with her tibco developer regarding her loop recorder and event this evening Lab Data Attestation: I reviewed the patient's lab results. Labs: Laboratory Results - last 24 hr 09/23/22 09/23/22 00:24 00:24 WBC 11.1 H RBC 4.68 Hgb 12.1 Hct 38.5 MCV 82.3 MCH 25.9 L MCHC 31.4 L RDW Std Deviation 47.7 H RDW Coeff of Remigio 16.1 H Plt Count 231 MPV 12.1 H Immature Gran % (Auto) 0.300 Neut % (Auto) 64.0 Lymph % (Auto) 26.9 [place] % (Auto) 6.9 Eos % (Auto) 1.4 Baso % (Auto) 0.5 Absolute Neuts (auto) 7.1 Absolute Lymphs (auto) 2.99 Nucleated RBC % 0 Sodium 140 Potassium 3.4 L Chloride 109 H Carbon Dioxide 23.0 Anion Gap 8 BUN 9 Creatinine 0.77 Estim Creat Clear Calc 102.94 Est GFR (MDRD) Af Amer 112 Est GFR (MDRD) Non-Af 93 BUN/Creatinine Ratio 11.7 Glucose 139 H Calcium 8.2 L Magnesium 1.9 Discharge Plan Triage Chief Complaint: Palpitations ED Provider: Doni Nieves Dx/Rx/DC Orders Clinical Impression: Palpitations, Premature ventricular contractions Instructions: PVCs, ED Palpitations Prescriptions: No Action albuterol sulfate 90 mcg/actuation HFA aerosol inhaler 2 puff inhalation Q4H PRN (Reason: Shortness Of Breath) aspirin 81 mg tablet,chewable 162 mg PO DAILY cholecalciferol (vitamin D3) 50 mcg (2,000 unit) capsule 50 mcg PO DAILY cyanocobalamin (vitamin B-12) 2,500 mcg tablet 2,500 mcg PO DAILY Airborne Elderberry 1,000 mg-50 mg-35.5 mg tablet, effervescent PO omeprazole 40 mg capsule,delayed release(DR/EC) 40 mg PO DAILY Label Comments: TAKE 1 CAPSULE BY MOUTH ONCE DAILY IN THE MORNING FOR 90 DAYS famotidine 40 mg tablet 40 mg PO DAILY Label Comments: TAKE 1 TABLET BY MOUTH ONCE DAILY IN THE EVENING FOR 30 DAYS metoprolol tartrate 50 mg tablet 50 mg PO BID Qty: 60 6RF metformin 1,000 mg tablet 1,000 mg PO BID loratadine [Allergy Relief (loratadine)] 10 mg tablet 10 mg PO DAILY Qty: 90 3RF fluticasone propionate 50 mcg/actuation spray,suspension 2 spray intranasal DAILY Qty: 18.2 3RF Rx Instructions: administer into each nostril promethazine 25 mg Tablet 25 mg PO Q6H PRN (Reason: Migraine Headache) gabapentin 100 mg Capsule 100 mg PO DAILY PRN (Reason: Migraine Headache) naproxen 500 mg Tablet 500 mg PO BID PRN (Reason: Migraine Headache) 28-800 mg-mcg Tablet 1 tab PO DAILY albuterol sulfate 2.5 mg /3 mL (0.083 %) solution for nebulization 2.5 mg inhalation Q4H PRN (Reason: Shortness Of Breath) Botox 200 unit Recon Soln See Rx Instructions .ROUTE .COMPLEX Rx Instructions: 200 unit subcutaneously every 3 months potassium chloride 10 mEq capsule, extended release 10 meq PO DAILY Qty: 90 3RF nifedipine 30 mg tablet extended release 30 mg PO DAILY Qty: 30 11RF Primary Care Provider: LUCIANA PARKER Referrals: LUCIANA PARKER [Other] Activity Restrictions/Additional Instructions: Please follow-up with your family doctor as well as tibco developer for further ev aluation of your symptoms and return to the ER should you have any further concerns Disposition Disposition: Home, Self Care Discharge Date/Time: 09/23/22 02:51
[2022-09-23 02:50] VITALS: BP 142/88; PULSE 89; RESP 18; O2SAT 100
== END 2022-09-23 02:51 | disposition home or self-care (01) ==
PROVIDERS: Emergency Provider Emergency Medicine; Visit Provider Emergency Medicine
DX: O99.891 Other specified diseases and conditions complicating pregnancy (principal); O99.411 Diseases of the circulatory system complicating pregnancy, first trimester; O99.211 Obesity complicating pregnancy, first trimester; I49.3 Ventricular premature depolarization; R00.2 Palpitations; Z3A.01 Less than 8 weeks gestation of pregnancy
CPT/HCPCS: 80048; 83735; 85025; 93005; 99284; A4216

== ENCOUNTER → 2022-10-06 | Outpatient (CLI) | payer MEDICAID, SELFPAY ==
[2022-10-06 12:29] LABS: Absolute Lymphocyte Count 2.14 X10^3/uL (0.83-4.51); Absolute Neutrophil Count 5.5 X10^3/uL (2.0-7.7); Basophil# 0.03 X10^3/uL; Basophil% 0.4 % (0-1); Eosinophil# 0.23 X10^3/uL; Eosinophils% 2.7 % (0-5); Hematocrit 41.3 % (37-47); Hemoglobin 12.8 g/dL (12.0-15.0); Lymphocyte # 2.14 X10^3/ul (0.83-4.51); Lymphocyte % 25.4 % (19-41); Mean Corpuscular Hgb 25.7 pg (27.0-32.0); Mean Corpuscular Volume 82.9 fL (81-99); Mean Platelet Vol. 11.7 fl (6.2-12.0); Monocyte# 0.53 X10^3/uL; Monocyte% 6.3 % (0-10); NRBC Flagged by Analyzer 0 % (0-5); Neutrophil # 5.46 X10^3/uL (2.7-7.7); Platelet Count 232 K/mm3 (150-450); RBC Distribution Width CV 15.9 % (11.6-14.6); RBC Distribution Width SD 48.4 fl (35.1-43.9); Red Blood Count 4.98 M/mm3 (4.2-5.4); White Blood Count 8.4 K/mm3 (4.4-11.0)
[2022-10-06 12:45] LABS: Hemoglobin A1c 5.8 % (3.8-5.6)
[2022-10-06 12:50] LABS: Protein, Urine (Random) 10.8 mg/dL (<11.9); Protein:Creat Ratio 155 mg/g CRE (0-200)
[2022-10-06 12:58] LABS: ALB/GLOB Ratio 0.7 RATIO (0.9-2.4); AST(SGOT) 23 U/L (15-37); Alanine Aminotransfer ALT/SGPT 40 U/L (13-56); Albumin, Serum 3.2 g/dL (3.2-5.0); Alkaline Phosphatase 86 U/L (45-117); Anion Gap 8 (5-15); BUN 8 mg/dL (7-18); BUN/Creat Ratio 11.8 RATIO (10-20); Calcium,Total 9.1 mg/dL (8.5-10.1); Chloride 105 mmol/L (98-107); Creatinine, Serum 0.68 mg/dL (0.55-1.02); EST Glomerular Filtration Rate 107 mL/min (>60); Est Glom Filt Rate - Afr Amer 130 mL/min (>60); Globulin 4.6 g/dL (2.2-4.2); Glucose 122 mg/dL (74-106); Glucose Challenge Gest 1H 50g 122 mg/dL (70-140); LDH 186 U/L (84-246); Potassium 3.4 mmol/L (3.5-5.1); Protein, Total 7.8 g/dL (6.4-8.2); Sodium Level 139 mmol/L (136-145)
[2022-10-06 13:33] LABS: HIV - WCH Non-Reactive (Nonreactive); Hepatitis B Surface Antigen Non-Reactive (Nonreactive); Hepatitis C Antibody Non-Reactive (Nonreactive); Rubella IgG Reactive (Nonreactive); Syphilis Antibodies Non-reactive; Vitamin D,25 Hydroxy 19.2 ng/mL
[2022-10-06 14:29] LABS: Chlamydia Trachomatis by PCR Negative (Negative); Neisserai gonorrhoeae by PCR Negative (Negative); Probe Check PASS; Sample Adequacy Control PASS; Specimen Processing Control PASS
== END | disposition home or self-care (01) ==
LOC: LAB 10:40
PROVIDERS: Visit Provider Nurse Practitioner
DX: O09.891 Supervision of other high risk pregnancies, first trimester (principal); Z3A.00 Weeks of gestation of pregnancy not specified
CPT/HCPCS: 86804; 86803; 36415; 80053; 82306; 82570; 82950; 83036; 83615; 84156; 84550; 85025; 86703; 86762; 86780; 86850; 86900; 86901; 87086; 87088; 87340; 87491; 87591

== ENCOUNTER 2022-10-21 19:11 | Emergency (ER) | payer MEDICAID, SELFPAY ==
[2022-10-21 19:13] VITALS: BP 161/83; PULSE 94; RESP 18; TEMP 36; O2SAT 97; BMI 36.0
--- NOTE | 2022-10-21 19:23 | US_ITS ---
STUDY: FIRST TRIMESTER OBSTETRICAL ULTRASOUND REASON FOR EXAM: Female, 32 years old abdominal cramping LMP: Unknown TECHNIQUE: Transvaginal TECHNICAL QUALITY: Adequate. PRIOR ULTRASOUND: September 14, 2022 FINDINGS: There is visualization of a single gestational sac in a normal intrauterine position. The mean sac diameter (MSD) measures 2.9 cm, indicating an estimated gestational age (EGA) of 8 weeks, 0 days. The gestational sac shape is within normal limits. There is a visualized yolk sac. The yolk sac measures 0.5 cm. The placenta is non-visualized. There is visualization of a live embryo. The crown-rump length (CRL) measures 2.86 cm, indicating an estimated gestational age (EGA) of 9 weeks, 3 days. There is demonstrated cardiac activity with a heart rate of 161 bpm. The estimated gestation age (EGA) by LMP is 10 weeks, 2 days. The estimated date of delivery (ТАТЬЯНА) by LMP is May 17, 2023. The estimated gestation age (EGA) by US is 9 weeks, 3 days. The estimated date of delivery (ТАТЬЯНА) by US is May 23, 2023. The uterus measures 7.6 x 8 x 6.8 cm. There is no demonstrated uterine fibroid. The cervix is closed. Right ovary not visualized. The left ovary measures 2.9 x 2.6 x 2.3 cm. There is no left ovarian cyst. There is no visualized left adnexal mass or complex lesion. There is no fluid in the cul de sac. US/Transvaginal w/Preg US IMPRESSION: 9 weeks 3 days Electronically Signed: Lauro River MD at 21:22 [facility] ,
--- NOTE | 2022-10-21 19:24 | EDS_ITS ---
HPI <DONALD Zimmerman - Last Filed: 10/21/22 21:44> HPI - Female History of Present Illness Chief Complaint: Vag Bld, Preg Narrative Narrative: Patient is a 32-year-old female with history of SVT, blood clotting disorder on Lovenox, who has been a total of 6 times, and has not been past 7 weeks. This is the first which is her 6 time and she is currently 9 weeks . She is seeing a specialist at [facility]. Patient is currently on progesterone, continue taking her Lovenox. She is currently on amoxicillin for strep throat which she was diagnosed with yesterday. Patient states she continued to have nausea and vomiting today, she also has some vaginal bleeding and vaginal cramping today. Secondary to her history she is concerned. She denies any fever or chills. Denies any difficulty breathing or chest pain. [facility] <DONALD Zimmerman - Last Filed: 10/21/22 21:44> [facility] Medical History (Updated 10/21/22 @ 21:43 by DONALD Zimmerman) History of asthma History of lupus anticoagulant disorder Implantable loop recorder present Insulin resistance Migraines SVT (supraventricular tachycardia) Home Medications aspirin 81 mg chewable tablet 162 mg PO DAILY 07/04/21 [History Last Taken Unknown] enoxaparin 40 mg/0.4 mL subcutaneous syringe (Lovenox) 40 mg subcut DAILY 10/21/22 [History Last Taken Unknown] progesterone micronized 200 mg capsule 400 mg vaginal BID 10/21/22 [History Last Taken Unknown] Allergy/AdvReac Type Severity Reaction Status Date / Time prochlorperazine Allergy Other Verified 10/21/22 19:13 [From Compazine] Family History Mother Cancer Thyroid disorder Father Heart disease Surgical History History of cholecystectomy History of electrophysiologic study (02/13/22) History of tonsillectomy Social History household members: spouse Smoking Status: Never smoker alcohol intake: never substance use type: does not use caffeine: Yes Type: coffee Number of servings: 2 ROS <DONALD Zimmerman - Last Filed: 10/21/22 21:44> ROS ED ROS Narrative Constitutional: Negative for fever, chills, weight loss, weakness Eyes: Negative for vision loss, vision change, double vision ENT: Negative for any sore throat, ear pain, congestion Cardiovascular: Negative for any chest pain, tightness, palpitations Respiratory: Negative for any cough, sputum production, hemoptysis, dyspnea, dyspnea on exertion, orthopnea Gastrointestinal: Negative for any diarrhea, constipation, blood in stool, blood in vomit. Positive for abdominal pain, nausea and vomiting : Negative for any urinary frequency, dysuria, retention, blood in urine Muscle skeletal: Negative for any muscle joint pain, stiffness, myalgias, arthralgias, neck pain, back pain Neurological: Negative for any headache, syncope, numbness or tingling, dizziness Skin: Negative for any rashes, lumps, itching, abrasions, lacerations Psychiatric: Negative for any depression, anxiety, stress, suicidal ideation, homicidal ideation Hematologic: Negative for any easy bruising, excessive bruising, easy bleeding Allergies: Negative for any eczema, hives, rash : Positive for vaginal bleeding positive lower abdominal cramping EXAM <DONALD Zimmerman - Last Filed: 10/21/22 21:44> Physical Exam Const Vital Signs: 10/21/22 19:13 10/21/22 21:15 10/21/22 21:55 Temperature 96.8 F L Temperature Source Temporal Pulse Rate 94 79 Respiratory Rate 18 18 Blood Pressure 161/83 H 125/60 H 128/60 H Blood Pressure Mean 109 81 Pulse Ox 97 99 Oxygen Delivery Method Room Air <Dr. Lwo Esposito, DO - Last Filed: 10/21/22 23:29> Physical Exam Const Vital Signs: 10/21/22 19:13 10/21/22 21:15 10/21/22 21:55 Temperature 96.8 F L Temperature Source Temporal Pulse Rate 94 79 Respiratory Rate 18 18 Blood Pressure 161/83 H 125/60 H 128/60 H Blood Pressure Mean 109 81 Pulse Ox 97 99 Oxygen Delivery Method Room Air MDM <DONALD Zimmerman - Last Filed: 10/21/22 21:44> MDM Lab Data Labs: Laboratory Results - last 24 hr 10/21/22 10/21/22 10/21/22 19:33 19:33 19:33 WBC 7.9 RBC 5.05 Hgb 12.9 Hct 41.0 MCV 81.2 MCH 25.5 L MCHC 31.5 L RDW Std Deviation 45.2 H RDW Coeff of Remigio 15.3 H Plt Count 206 MPV 10.9 Immature Gran % (Auto) 0.300 Neut % (Auto) 60.8 Lymph % (Auto) 26.9 Amador % (Auto) 8.6 Eos % (Auto) 3.0 Baso % (Auto) 0.4 Absolute Neuts (auto) 4.8 Absolute Lymphs (auto) 2.12 Nucleated RBC % 0 Sodium 140 Potassium 3.8 Chloride 109 H Carbon Dioxide 24.0 Anion Gap 7 BUN 11 Creatinine 0.65 Estim Creat Clear Calc 121.95 Est GFR (MDRD) Af Amer 137 Est GFR (MDRD) Non-Af 113 BUN/Creatinine Ratio 17.0 Glucose 103 Calcium 8.9 HCG, Quant 49585 H Urine Color Urine Clarity Urine pH Ur Specific [place] Urine Protein Urine Glucose (UA) Urine Ketones Urine Occult Blood Urine Nitrite Urine Bilirubin Urine Urobilinogen Ur Leukocyte Esterase Urine RBC Urine WBC Ur Squamous Epith Cells Urine Bacteria Urine Mucus 10/21/22 19:38 WBC RBC Hgb Hct MCV MCH MCHC RDW Std Deviation RDW Coeff of Remigio Plt Count MPV Immature Gran % (Auto) Neut % (Auto) Lymph % (Auto) [place] % (Auto) Eos % (Auto) Baso % (Auto) Absolute Neuts (auto) Absolute Lymphs (auto) Nucleated RBC % Sodium Potassium Chloride Carbon Dioxide Anion Gap BUN Creatinine Estim Creat Clear Calc Est GFR (MDRD) Af Amer Est GFR (MDRD) Non-Af BUN/Creatinine Ratio Glucose Calcium HCG, Quant Urine Color Yellow Urine Clarity Clear Urine pH 7.0 Ur Specific [place] 1.010 Urine Protein Negative Urine Glucose (UA) Normal Urine Ketones Negative Urine Occult Blood 10 H Urine Nitrite Negative Urine Bilirubin Negative Urine Urobilinogen Normal Ur Leukocyte Esterase Negative Urine RBC 0 SEEN Urine WBC 0 SEEN Ur Squamous Epith Cells 0 SEEN Urine Bacteria 0 SEEN Urine Mucus 0 SEEN Radiography Diagnostic Testing: Clinical Impression(s) from Imaging Studies Obstetrics Ultrasound 10/21/22 19:23 IMPRESSION: 9 weeks 3 days Electronically Signed: Lauro River MD at 21:22 EST , Treatment and Re-Evaluation Narrative: All radiologic examinations were read, reviewed by the emergency department attending. From these reads, a plan of care will be put in place. Patient appears well, patient appears nontoxic, vital signs are stable.Patient presents to the emergency department for concern of vaginal bleeding, patient has had 5 pregnancies have not lasted 7 weeks. This is the patient states and she is concerned secondary to some vaginal bleeding. Patient's laboratory values showed a normal CBC, negative for any anemia. Patient's chemistries were unremarkable. Patient's hCG quantitative was 22,982, this is within normal limits of this age of gestation. I was able to look at the patient's laboratory values from October 06, 2022 patient is O+. There is no indication to give RhoGAM IM. Patient's urinalysis was negative for any infection. Patient did receive a transvaginal ultrasound, this did show a live embryo estimated gestational age of 9 weeks and 3 days. Patient was made aware of these findings. At this time, patient would continue her antibiotics for her strep throat that was diagnosed 48 hours ago. She will continue to maintain hydration. She will follow-up with her [facility] [employer]ER this upcoming week. Given strict return precaution. At this time there is no evidence to suspect any ectopic , internal gestation. Patient stable for discharge. <Dr. Low Esposito, DO - Last Filed: 10/21/22 23:29> [facility] Narrative Medical decision making narrative: This patient was seen with a PA/TRANSMITTER TESTER Individually assessed they patient including history and physical. I have reviewed everything on the chart that is available and agree with the documentation provided by the PA/TRANSMITTER TESTER including discussion about the assessment, treatment plan, discussion, and return precautions. Patient appears well, patient appears nontoxic, vital signs are stable.Patient presents to the emergency department for concern of vaginal bleeding, patient has had 5 pregnancies have not lasted 7 weeks. This is the patient states and she is concerned secondary to some vaginal bleeding. Patient's laboratory values showed a normal CBC, negative for any anemia. Patient's chemistries were unremarkable. Patient's hCG quantitative was 22,982, this is within normal limits of this age of gestation. I was able to look at the patient's laboratory values from October 06, 2022 patient is O+. There is no indication to give RhoGAM IM. Patient's urinalysis was negative for any infection. Patient did receive a transvaginal ultrasound, this did show a live embryo estimated gestational age of 9 weeks and 3 days. Patient was made aware of these findings. At this time, patient would continue her antibiotics for her strep throat that was diagnosed 48 hours ago. She will continue to maintain hydration. She will follow-up with her [facility] [employer]ER this upcoming week. Given strict return precaution. At this time there is no evidence to suspect any ectopic , internal gestation. Patient stable for discharge. Impression: 1. Threatened miscarriage 2. Strep pharyngitis Lab Data Attestation: I reviewed the patient's lab results. Labs: Laboratory Results - last 24 hr 10/21/22 10/21/22 10/21/22 19:33 19:33 19:33 WBC 7.9 RBC 5.05 Hgb 12.9 Hct 41.0 MCV 81.2 MCH 25.5 L MCHC 31.5 L RDW Std Deviation 45.2 H RDW Coeff of Remigio 15.3 H Plt Count 206 MPV 10.9 Immature Gran % (Auto) 0.300 Neut % (Auto) 60.8 Lymph % (Auto) 26.9 [place] % (Auto) 8.6 Eos % (Auto) 3.0 Baso % (Auto) 0.4 Absolute Neuts (auto) 4.8 Absolute Lymphs (auto) 2.12 Nucleated RBC % 0 Sodium 140 Potassium 3.8 Chloride 109 H Carbon Dioxide 24.0 Anion Gap 7 BUN 11 Creatinine 0.65 Estim Creat Clear Calc 121.95 Est GFR (MDRD) Af Amer 137 Est GFR (MDRD) Non-Af 113 BUN/Creatinine Ratio 17.0 Glucose 103 Calcium 8.9 HCG, Quant 82191 H Urine Color Urine Clarity Urine pH Ur Specific [place] Urine Protein Urine Glucose (UA) Urine Ketones Urine Occult Blood Urine Nitrite Urine Bilirubin Urine Urobilinogen Ur Leukocyte Esterase Urine RBC Urine WBC Ur Squamous Epith Cells Urine Bacteria Urine Mucus 10/21/22 19:38 WBC RBC Hgb Hct MCV MCH MCHC RDW Std Deviation RDW Coeff of Remigio Plt Count MPV Immature Gran % (Auto) Neut % (Auto) Lymph % (Auto) [place] % (Auto) Eos % (Auto) Baso % (Auto) Absolute Neuts (auto) Absolute Lymphs (auto) Nucleated RBC % Sodium Potassium Chloride Carbon Dioxide Anion Gap BUN Creatinine Estim Creat Clear Calc Est GFR (MDRD) Af Amer Est GFR (MDRD) Non-Af BUN/Creatinine Ratio Glucose Calcium HCG, Quant Urine Color Yellow Urine Clarity Clear Urine pH 7.0 Ur Specific [place] 1.010 Urine Protein Negative Urine Glucose (UA) Normal Urine Ketones Negative Urine Occult Blood 10 H Urine Nitrite Negative Urine Bilirubin Negative Urine Urobilinogen Normal Ur Leukocyte Esterase Negative Urine RBC 0 SEEN Urine WBC 0 SEEN Ur Squamous Epith Cells 0 SEEN Urine Bacteria 0 SEEN Urine Mucus 0 SEEN Radiography Diagnostic Testing: Clinical Impression(s) from Imaging Studies Obstetrics Ultrasound 10/21/22 19:23 IMPRESSION: 9 weeks 3 days Electronically Signed: Lauro River MD at 21:22 EST Reading Location ID and State: [address] [place] [address] , Service support , Treatment and Re-Evaluation Narrative: All radiologic examinations were read, reviewed by the emergency department attending. From these reads, a plan of care will be put in place. Discharge Plan Triage Chief Complaint: Vag Bld, Preg Other Complaint: Abd Pain Nausea/Vomiting Sore Throat ED Midlevel Provider: Dima Bowen ED Provider: Low Esposito Dx/Rx/DC Orders Clinical Impression: Abnormal vaginal bleeding, , Nausea & vomiting Instructions: Understanding Uterine Bleeding, 1st Trimester Prescriptions: No Action aspirin 81 mg tablet,chewable 162 mg PO DAILY progesterone micronized 200 mg capsule 400 mg vaginal BID Label Comments: PLACE 2 CAPSULES VAGINALLY TWICE DAILY ON WEEKS 7-36 enoxaparin [Lovenox] 40 mg/0.4 mL Syringe 40 mg SUBCUT DAILY Primary Care Provider: Care Physician,Stefanie Primary Referrals: NOT,DEFINED [Non-Staff] - Activity Restrictions/Additional Instructions: Please follow-up with your [facility] [employer]ER this upcoming week. He had a normal work-up today. Please maintain hydration. Disposition Disposition: Home, Self Care Discharge Date/Time: 10/21/22 21:55
[2022-10-21] MEDS: Ondansetron 4 MG/2 ML Vial IV (19:37)
[2022-10-21] MEDS: 0.9% Normal Saline 1,000 ML 1000 ML IV (19:37)
[2022-10-21 19:39] LABS: Absolute Lymphocyte Count 2.12 X10^3/uL (0.83-4.51); Absolute Neutrophil Count 4.8 X10^3/uL (2.0-7.7); Basophil# 0.03 X10^3/uL; Basophil% 0.4 % (0-1); Eosinophil# 0.24 X10^3/uL; Hemoglobin 12.9 g/dL (12.0-15.0); Lymphocyte # 2.12 X10^3/ul (0.83-4.51); Lymphocyte % 26.9 % (19-41); Mean Corp Hgb Conc 31.5 g/dL (32-36); Mean Corpuscular Hgb 25.5 pg (27.0-32.0); Mean Corpuscular Volume 81.2 fL (81-99); Mean Platelet Vol. 10.9 fl (6.2-12.0); Monocyte# 0.68 X10^3/uL; Monocyte% 8.6 % (0-10); NRBC Flagged by Analyzer 0 % (0-5); Neutrophil # 4.79 X10^3/uL (2.7-7.7); Neutrophil % 60.8 % (47-70); Platelet Count 206 K/mm3 (150-450); RBC Distribution Width CV 15.3 % (11.6-14.6); RBC Distribution Width SD 45.2 fl (35.1-43.9); Red Blood Count 5.05 M/mm3 (4.2-5.4); White Blood Count 7.9 K/mm3 (4.4-11.0)
[2022-10-21 19:42] LABS: Bacteria 0 SEEN /hpf (None Seen); Mucous, Urine 0 SEEN /hpf (<or=2+); Red Blood Cells-Urine 0 SEEN /hpf (0-5); Squamous Epithelial Cells - UA 0 SEEN /hpf (5-10); White Blood Cells 0 SEEN /hpf (0-5)
[2022-10-21 19:44] LABS: Color, Urine Yellow (Yellow); Glucose, Dipstick Normal (Normal); Ketone-Dipstick Negative (Negative); Leukocyte Esterase-Dipstick Negative /ul (Negative); Nitrite-Dipstick Negative (Negative); Occult Blood-Urine 10 /ul (Negative); Protein-Dipstick Negative (Negative); Urine Bilirubin Dipstick Negative (Negative); Urine Clarity Clear (Clear); Urine Urobilinogen Normal (Normal)
[2022-10-21 19:54] LABS: Anion Gap 7 (5-15); BUN 11 mg/dL (7-18); Calcium,Total 8.9 mg/dL (8.5-10.1); Chloride 109 mmol/L (98-107); Creatinine, Serum 0.65 mg/dL (0.55-1.02); EST Glomerular Filtration Rate 113 mL/min (>60); Est Glom Filt Rate - Afr Amer 137 mL/min (>60); Estimated Creatinine Clearance 121.95 ml/min; Glucose 103 mg/dL (74-106); Potassium 3.8 mmol/L (3.5-5.1); Sodium Level 140 mmol/L (136-145)
[2022-10-21 20:19] LABS: hCG Titer Quant., Serum 22982 mIU/mL (1-3)
[2022-10-21 21:15] VITALS: BP 125/60; PULSE 79; RESP 18; O2SAT 99
[2022-10-21 21:55] VITALS: BP 128/60
== END 2022-10-21 21:55 | disposition home or self-care (01) ==
PROVIDERS: Nurse Practitioner; Emergency Provider Student in an Organized Health Care Education/Training Program; Visit Provider Student in an Organized Health Care Education/Training Program
DX: O20.0 Threatened abortion (principal); D68.62 Lupus anticoagulant syndrome; O26.21 Pregnancy care for patient with recurrent pregnancy loss, first trimester; O99.511 Diseases of the respiratory system complicating pregnancy, first trimester; J02.0 Streptococcal pharyngitis; O99.111 Other diseases of the blood and blood-forming organs and certain disorders involving the immune mechanism complicating pregnancy, first trimester; Z90.49 Acquired absence of other specified parts of digestive tract; Z3A.09 9 weeks gestation of pregnancy; Z79.82 Long term (current) use of aspirin
CPT/HCPCS: 76817; 80048; 81001; 84702; 85025; 96361; 96374; 99282; A4216; J2405

== ENCOUNTER 2022-11-29 13:28 | Emergency (ER) | payer MEDICAID, SELFPAY ==
[2022-11-29 13:29] VITALS: BP 168/92; PULSE 105; RESP 14; TEMP 36.6; O2SAT 97; BMI 50.7
[2022-11-29 14:51] LABS: Anion Gap 9 (5-15); BUN 9 mg/dL (7-18); Calcium,Total 9.4 mg/dL (8.5-10.1); Chloride 108 mmol/L (98-107); EST Glomerular Filtration Rate 124 mL/min (>60); Est Glom Filt Rate - Afr Amer 150 mL/min (>60); Estimated Creatinine Clearance 132.11 ml/min; Glucose 97 mg/dL (74-106); Potassium 3.5 mmol/L (3.5-5.1); Sodium Level 140 mmol/L (136-145)
[2022-11-29 14:52] LABS: International Normalized Ratio 1.1; Partial Thromboplast Time 26.5 Seconds (24.1-36.2); Prothrombin Time (Protime)PT. 13.4 SECONDS (11.7-14.9)
--- NOTE | 2022-11-29 15:25 | CM.ED ---
Social Work Note Referral Source: Case find Referral reason: no PCP SW met with patient and introduced herself and role as [facility] Lever Miller. Patient was laying in hospital bed with lights off but agreeable to speak with social work. SW inquired about patient's insurance and current PCP. Patient verified her insurance and reports her PCP is a doctor in [place]. Patient explained she provides their information to registration each ED visit but the information doesn't stay in our system. Patient reports she has had the same PCP since she was a child and plans to continue with them; declining list of PCPs in network accepting new patients. No other needs voiced at this time, SW remains available if needs arise. Kelsie Quintana SUPPLY CRIB ATTENDANT, BLAYNE
[2022-11-29 16:00] VITALS: PULSE 88; RESP 16; O2SAT 98
[2022-11-29] MEDS: Metoclopramide 10 MG/2 ML Vial IV (16:19)
[2022-11-29] MEDS: Ketorolac 15 MG/ML Vial IV (16:19)
--- NOTE | 2022-11-29 16:19 | EDS_ITS ---
HPI History of Present Illness Chief Complaint: Headache Detail of Chief Complaint: Headache with scintillating scotoma blurred peripheral vision and facial nu Informant: patient Onset/Context/Timing Onset: Yesterday Context: Gradual Timing: Continuous Quality -Headache: Positive for Similar Prior Headaches (Slightly worse than normal.), Throbbing and Tightness Location: Frontal and left side Current Severity: Severe Maximum Severity: Severe Worsened by: Light Relieved by: Nothing Associated Symptoms/Injury Associated Symptoms: Positive for Nausea, Visual Changes and Photophobia; Negative for Fever, Vomiting, Sore Throat, Sinus Pressure, Numbness, Tingling, Preceding Aura, Blurred Vision or Visual Loss Injury - JAIMES: Negative for Direct Trauma Narrative Narrative: Patient is a 32-year-old with 4 spontaneous miscarriages and 1 ectopic who was sent to the emergency department by her protein specialist because this headache was slightly worse and associated with visual changes and numbness left side of face. 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 She reports allergy to Compazine and Benadryl. The Benadryl causes her to have heart problems. She presently has a loop recorder in place. She denies fever, chills night sweats. She denies decreased hearing or ringing or ears. She denies rhinorrhea, congestion, postnasal drainage or sore throat. She denies problems with speech or swallowing. She denies neck pain or neck stiffness. She denies cardiac or respiratory symptoms. She does endorse nausea without vomiting or diarrhea. She does endorse frequency without dysuria, hematuria or flank pain. She denies vaginal bleeding. She states this has the father she has carried a fetus. She denies paresthesia, anesthesia or motor weakness upper or lower extremities. She denies problems with coordination or balance. Prior similar symptoms: Yes Recent Illness/Hospitalization: No PFSH PFS Medical History History of asthma History of lupus anticoagulant disorder Implantable loop recorder present Insulin resistance Migraines SVT (supraventricular tachycardia) Home Medications aspirin 81 mg chewable tablet 162 mg PO DAILY 07/04/21 [History Last Taken Unknown] enoxaparin 40 mg/0.4 mL subcutaneous syringe (Lovenox) 40 mg subcut DAILY 10/21/22 [History Last Taken Unknown] progesterone micronized 200 mg capsule 400 mg vaginal BID 10/21/22 [History Last Taken Unknown] Allergy/AdvReac Type Severity Reaction Status Date / Time prochlorperazine Allergy Other Verified 11/29/22 13:29 [From Compazine] Family History Mother Cancer Thyroid disorder Father Heart disease Surgical History History of cholecystectomy History of electrophysiologic study (02/13/22) History of tonsillectomy Social History household members: spouse Smoking Status: Never smoker alcohol intake: never substance use type: does not use caffeine: Yes Type: coffee Number of servings: 2 ROS ROS ED Constitutional Constitutional ED: Denies chills, fever(s), subjective, sweats or weight loss Eyes Eyes: Reports change in vision bilateral (Scintillating scotoma with blurred peripheral vision); Denies blurry vision or diplopia ENT ENT ED: Reports other Details: See HPI for further detail ; Denies ear pain, rhinorrhea or sore throat Cardiovascular Cardiovascular: Denies chest pain, palpitations or racing heartbeat Respiratory/Chest Respiratory/Chest: Denies cough, dyspnea or dyspnea on exertion Gastrointestinal Gastrointestinal: Reports nausea; Denies abdominal pain, diarrhea, melena or vomiting Genitourinary Genitourinary ED: Reports LMP (females 10-50) and urinary frequency; Denies dysuria or hematuria Musculoskeletal Musculoskeletal: Denies arthralgias, back pain, myalgias or neck pain Integumentary Denies abscess, Abrasions or rash Neurologic Neurologic: Reports headache(s), paresthesias and other Details: Paresthesia left side of the face ; Denies weakness Psychiatric Psychiatric: Reports anxiety and depression; Denies suicidal ideation Endocrine Endocrinology: Denies polydipsia, polyphagia or polyuria Hematologic/Lymphatic Hematologic/Lymphatic: Denies easy bleeding, easy bruising or lymphadenopathy EXAM Physical Exam Const Vital Signs: 11/29/22 13:29 11/29/22 14:04 11/29/22 16:00 Temperature 98 F Temperature Source Temporal Pulse Rate 105 H 88 Respiratory Rate 14 16 Blood Pressure 168/92 H Blood Pressure Mean 117 Pulse Ox 97 98 Oxygen Delivery Method Room Air Room Air Room Air Positive well nourished, well developed and obese General Appearance ED: well developed and NAD; Negative for cyanotic, diaphoretic or pallor Nutritional Appearance: obese HEENT Reports normocephalic, TM's clear and moist mucous membranes HEENT Narrative: TMs normal. No frontal, ethmoid or maxillary sinus tenderness. Posterior for access normal. atraumatic Tympanic Membrane ED: Yes TM's clear Eyes PERRL and EOMs intact bilaterally Eyes Narrative: There is no nystagmus. There is no APD. Cup-to-disc ratio was normal. There is no papilledema. Venous pulsations were noted bilaterally. General Eye ED: Negative for pale conjunctiva or scleral icterus Neck no lymphadenopathy, supple, no meningeal signs and no JVD Resp normal respiratory effort and clear to auscultation bilaterally Cardio regular rate, regular rhythm, S1 normal heart sound, S2 normal heart sound and no murmurs GI non-tender and non-distended Auscultation: normoactive bowel sounds Back/Spine no CVA tenderness Cervical Spine: Negative for cervical spine tenderness Thoracic Spine / Upper Back: Negative for thoracic spinal tenderness Lumbar Spine / Lower Back: Negative for lumbar spinal tenderness Extremity normal to inspection, full ROM and normal capillary refill General Extremety ED: Negative for edema, tenderness or other findings General Extremity: Negative for edema or other findings Neuro oriented x3, CN's II-XII intact bilaterally and no sensory deficits noted Dat Coma Scale: document GCS findings Spontaneous Obeys Commands Oriented 15 Sensorium / Orientation: awake and alert Coordination / Balance: [id number] test normal Speech: speech normal Motor Exam: strength 5/5 throughout Psych Mood & Affect: depressed Skin General Skin Exam: elasticity normal and turgor normal; Negative for jaundice or pallor Lesions: no lesions MDM MDM MDM Narrative Medical decision making narrative: Patient presents with ocular migraine. Patient has history of ocular migraine. Case is complicated by the fact that she is second trimester. Patient also reports allergy to Compazine. She states she has allergy to Benadryl which causes her heart to race fast. Milligrams of Toradol IV push, 1 mg of Cogentin IV push and 10 mg of Reglan IV push. Since she has a nonfocal neurologic exam CT was not obtained especially since she has a history of ocular migraines as well as hemiplegic migraines. Patient in all likely has had intractable ocular migraine with status. Prior records were reviewed both ER and inpatient. Patient was admitted for syncope June 2021. Patient was noted to have nonsustained V. tach. She has had ER visits for headache, abdominal pain and palpitations. History & Record Review Discussion w/independent historian: Patient Additional record(s) reviewed:: Prior inpatient record, Prior outpatient record, Prior ED visit and Prior labs Lab Data Attestation: I reviewed the patient's lab results. Lab results narrative: Blood work is unremarkable. This was ordered per nurse protocol. Labs: Laboratory Results - last 24 hr 11/29/22 11/29/22 11/29/22 14:25 14:25 14:25 WBC Cancelled Corrected WBC Cancelled RBC Cancelled Hgb Cancelled Hct Cancelled MCV Cancelled MCH Cancelled MCHC Cancelled RDW Std Deviation Cancelled RDW Coeff of Remigio Cancelled Plt Count Cancelled MPV Cancelled Immature Gran % (Auto) Cancelled Neut % (Auto) Cancelled Lymph % (Auto) Cancelled [place] % (Auto) Cancelled Eos % (Auto) Cancelled Baso % (Auto) Cancelled Absolute Neuts (auto) Cancelled Absolute Lymphs (auto) Cancelled Total Counted Cancelled Neutrophils % (Manual) Cancelled Band Neutrophils % Cancelled Lymphocytes % (Manual) Cancelled Monocytes % (Manual) Cancelled Eosinophils % (Manual) Cancelled Basophils % (Manual) Cancelled Metamyelocytes % Cancelled Myelocytes % Cancelled Promyelocytes % Cancelled Blast Cells % Cancelled Plasma Cell % (Manual) Cancelled Other Cells % Cancelled Nucleated RBC % Cancelled Nucleated RBCs/100 WBC Cancelled Differential Comment Cancelled Diff Path Review Cancelled Hypersegmented Neuts Cancelled Atypical Lymphocytes Cancelled Reactive Lymphocytes Cancelled Smudge Cells Cancelled Toxic Granulation Cancelled Toxic Vacuolation Cancelled Dohle Bodies Cancelled Erick Rods Cancelled Platelet Estimate Cancelled Plt Morphology Comment Cancelled RBC Morphology Cancelled Polychromasia Cancelled Hypochromasia Cancelled Poikilocytosis Cancelled Basophilic Stippling Cancelled Anisocytosis Cancelled Microcytosis Cancelled Macrocytosis Cancelled Spherocytes Cancelled Sickle Cells Cancelled Target Cells Cancelled Tear Drop Cells Cancelled Ovalocytes Cancelled Stomatocytes Cancelled Pinedo-[place]adron Bodies Cancelled Edgar Cells Cancelled Bite Cells Cancelled Crenated Cell Cancelled Acanthocytes (Spur) Cancelled Rouleaux Cancelled Schistocytes Cancelled PT 13.4 INR 1.1 APTT 26.5 Sodium 140 Potassium 3.5 Chloride 108 H Carbon Dioxide 23.0 Anion Gap 9 BUN 9 Creatinine 0.60 Estim Creat Clear Calc 132.11 Est GFR (MDRD) Af Amer 150 Est GFR (MDRD) Non-Af 124 BUN/Creatinine Ratio 15.0 Glucose 97 Calcium 9.4 EKG Initial EKG: Attestation: I personally reviewed and interpreted this EKG as follows: Interpretation: Sinus Rhythm (EKG is normal. Ventricular rate is 87. VA interval is 174 ms. QS duration 80 ms. QT durations 180 ms. [place] is normal. EKG was obtained prior to administration of Reglan to evaluate for QT prolongation.) Treatment and Re-Evaluation Narrative: Patient was reassessed at 1820. She is smiling. Her significant other is with her. She was discharged to home. Discharge Plan Triage Chief Complaint: Headache ED Provider: Dhiraj Quiroga Dx/Rx/DC Orders Clinical Impression: Intractable ophthalmic migraine, Obstructive sleep apnea, HTN (hypertension), benign, Second trimester Instructions: Migraines and Cluster Headaches Prescriptions: No Action aspirin 81 mg tablet,chewable 162 mg PO DAILY progesterone micronized 200 mg capsule 400 mg vaginal BID Label Comments: PLACE 2 CAPSULES VAGINALLY TWICE DAILY ON WEEKS 7-36 enoxaparin [Lovenox] 40 mg/0.4 mL Syringe 40 mg SUBCUT DAILY Primary Care Provider: Care Physician,No Primary Referrals: Care Physician,No Primary [Primary Care Provider] - Doctor,Your [Non-Staff] - Disposition Disposition: Home, Self Care
[2022-11-29] MEDS: 0.9% Normal Saline 1,000 ML 50 ML IV (16:22)
[2022-11-29 18:41] VITALS: BP 132/81; PULSE 77; RESP 16; O2SAT 99
== END 2022-11-29 18:41 | disposition home or self-care (01) ==
PROVIDERS: Emergency Provider Emergency Medicine; Visit Provider Emergency Medicine
DX: O99.352 Diseases of the nervous system complicating pregnancy, second trimester (principal); O10.012 Pre-existing essential hypertension complicating pregnancy, second trimester; O99.212 Obesity complicating pregnancy, second trimester; G47.33 Obstructive sleep apnea (adult) (pediatric); G43.919 Migraine, unspecified, intractable, without status migrainosus; E66.9 Obesity, unspecified; Z3A.00 Weeks of gestation of pregnancy not specified
CPT/HCPCS: 80048; 85610; 85730; 93005; 96361; 96374; 96375; 99284; J7030; A4216

== ENCOUNTER → 2023-02-06 | Outpatient (CLI) | payer MEDICAID, SELFPAY ==
[2023-02-06 09:02] LABS: Glucose GTT-Gestation. Fasting 111 mg/dL (<105)
[2023-02-06 10:28] LABS: Glucose GTT-Gestational 1 Hr 178 mg/dL (<190)
[2023-02-06 11:58] LABS: Glucose GTT-Gestational 2 Hr 151 mg/dL (<165)
[2023-02-06 12:11] LABS: Glucose GTT-Gestational 3 Hr 110 L (<145)
== END | disposition home or self-care (01) ==
LOC: LAB 08:20
DX: O99.810 Abnormal glucose complicating pregnancy (principal); Z3A.00 Weeks of gestation of pregnancy not specified
CPT/HCPCS: 36415; 82951; 82952

== ENCOUNTER 2023-03-10 21:31 | Emergency (ER) | payer MEDICAID, SELFPAY ==
[2023-03-10 21:33] VITALS: BP 138/94; PULSE 108; RESP 24; TEMP 37; O2SAT 96; BMI 52.4
--- NOTE | 2023-03-10 21:38 | ED.RN ---
CALL PLACED TO OB LITIGATION COORDINATOR, DISCUSSED SYMPTOMS AND HISTORY, DETERMINED TO EVALUATE IN ER GIVEN CARDIAC AND CLOTTING HISTORY AND TO CALL OB IF MONITORING IS NEEDED.
--- NOTE | 2023-03-10 21:54 | EKG12_ITS ---
Test Reason : CP Blood Pressure : / mmHG Vent. Rate : 100 BPM Atrial Rate : 100 BPM P-R Int : 166 ms QRS Dur : 076 ms QT Int : 360 ms P-R-T Axes : 047 030 037 degrees QTc Int : 464 ms Normal sinus rhythm Normal ECG Confirmed by JARRELL GALEANO, ALLI ([id number]), assistant editor AMBIKA TELLO ([id number]) on 03/12/2023 12:42:28 PM Referred By: DEYSI Confirmed By:ALLI VIEYRA MD
--- NOTE | 2023-03-10 21:55 | ED.VIS.CHEST ---
HPI History of Present Illness Chief Complaint: Chest Pain Informant: patient Narrative Narrative: Presents with pain under her left breast that started earlier this afternoon. She had eaten pizza but she states the pain is not in her abdomen its up in the lower chest. She feels just slightly short of breath and taking deep breath does hurt it just a little bit. Not coughing. No hemoptysis. No leg pain or swelling. She is about 29 weeks . She has been several other times but is always had miscarriages. She had 1 ectopic. This is the first time she has carried this far. She has a history of lupus anticoagulant so she is on the low-dose Lovenox along with aspirin daily. She has never actually had a DVT or PE. No trauma. [facility] Medical History Cholecystectomy planned History of asthma History of lupus anticoagulant disorder Implantable loop recorder present Insulin resistance Migraines Pancreatitis SVT (supraventricular tachycardia) Home Medications aspirin 81 mg chewable tablet 162 mg PO DAILY 07/04/21 [History Last Taken Unknown] enoxaparin 40 mg/0.4 mL subcutaneous syringe (Lovenox) 40 mg subcut DAILY 10/21/22 [History Last Taken Unknown] ascorbate calcium (vitamin C) 500 mg tablet 500 mg PO DAILY 12/05/22 [History Last Taken Unknown] cholecalciferol (vitamin D3) 25 mcg (1,000 unit) capsule 25 mcg PO DAILY 12/05/22 [History Last Taken Unknown] levothyroxine 50 mcg tablet (Synthroid) 50 mcg PO DAILY 12/05/22 [History Last Taken Unknown] Allergy/AdvReac Type Severity Reaction Status Date / Time diphenhydramine Allergy Mild Chest Verified 03/10/23 21:32 [From Benadryl] tightness prochlorperazine Allergy Other Verified 03/10/23 21:32 [From Compazine] Family History Mother Cancer Thyroid disorder Father Heart disease Surgical History History of cholecystectomy History of electrophysiologic study (02/13/22) History of tonsillectomy Social History household members: spouse Smoking Status: Never smoker alcohol intake: never substance use type: does not use caffeine: Yes Type: coffee Number of servings: 2 ROS ROS ED ROS Narrative A complete review of systems was performed and is negative except as documented in the history of present illness. Some specific details below. Constitutional: No recent fevers or chills. EYE: No discharge, visual complaints, or pain. ENT: No difficulty swallowing. No swelling. No pain. No reflux symptoms. CV: See history of present illness. Not syncopal or presyncopal. Respiratory: See history of present illness. GI: No abdominal pain. No nausea vomiting diarrhea. No blood in stool. : No frequency dysuria or hematuria. Musculoskeletal: No recent trauma. No pains. No swelling. Skin: No rash. Nondiaphoretic. Neuro: No weakness or numbness. Endocrine: No polyuria or polydipsia. EXAM Physical Exam Narrative Exam Narrative: CONSTITUTIONAL: Patient is nontoxic in appearance. The patient looks comfortable. Work of breathing looks normal. HEENT: No notable trauma. Mucous membranes moist. No sinus tenderness. No indication of pain with swallowing. EYES: No conjunctival injection. No proptosis. NECK:No JVD. No stridor. CARDIOVASCULAR: Mildly tachycardic rate. Her rate will go down to about 88 but occasionally goes up to 115 also. It always looks like sinus. I see no ectopy on the monitor. Regular rhythm. No notable murmur. No JVD. RESPIRATORY: No respiratory distress. Breathing is unlabored. No wheezes. No rhonchi. No rales. She does have a small amount of discomfort with very deep breaths but it does not cause cessation of inspiration. No chest wall tenderness or rash or skin lesions noted. GASTROINTESTINAL: Not distended. Bowel sounds are normal. No tenderness. No guarding. No rebound. No palpable mass. No bruit is heard. It does not appear as though her symptoms are in the upper abdomen but rather the lower anterior chest. GENITOURINARY: No tenderness over the bladder. No CVA tenderness. MUSCULOSKELETAL: Atraumatic. No peripheral edema. No cord. No tenderness along the deep venous system. No asymmetry. No distended veins. NEUROLOGICAL: Patient is alert and appropriate. No focal deficit noted. SKIN: No noted rashes. No diaphoresis. PSYCHIATRIC: Patient is calm. Mood is appropriate. Const Vital Signs: 03/10/23 21:33 03/10/23 21:32 03/10/23 21:54 Temperature 98.6 F Temperature Source Temporal Pulse Rate 108 H Respiratory Rate 24 H Respiratory Effort Normal Blood Pressure 138/94 H Blood Pressure Mean 108 Pulse Ox 96 Oxygen Delivery Method Room Air MDM MDM MDM Narrative Medical decision making narrative: We talked about patient with options. I explained that a D-dimer is not a great test when someone is . It is likely going to be elevated. We can consider doing a CTA of the chest. There is some risk with this both radiation to her and the baby. But she also has real risks for pulmonary embolus. We agreed that we will do a D-dimer. Once we get the blood work back we will make further decisions. Patient CBC shows mild anemia and mild elevated white count. This is typical for her stage of . Graph patient's electrolytes show no acute abnormalities of significance. Patient's troponin is negative. Patient's D-dimer is negative and almost lower than the measurable level. Patient's lipase is negative. Had a long talk with the patient. She is not truly considered low risk. She does have lupus anticoagulant. But she has never had a blood clot. Currently her heart rate is about 90. Her respiratory rate is about 16 and 17. Her oxygen level is 96 to 98% on room air showing no hypoxia. She now thinks that some of the symptoms are almost like she had with pancreatitis. That is why we added the lipase. She did get symptoms after eating pizza. But her symptoms do seem slightly above the abdomen. Even though she is not low risk we did do a D-dimer. This is almost below the lowest measurable. We discussed risk benefits options including risk to her and risk to her unborn child. We mutually agreed that we will hold off on a CTA at this time. She is on low-dose Lovenox. If she has further symptoms pain trouble breathing syncope or any concerns she should come back. Lab Data Labs: Laboratory Results - last 24 hr 03/10/23 21:50 WBC 14.7 H RBC 4.16 L Hgb 11.0 L Hct 34.5 L MCV 82.9 MCH 26.4 L MCHC 31.9 L RDW Std Deviation 46.1 H RDW Coeff of Remigio 15.3 H Plt Count 206 MPV 12.1 H Immature Gran % (Auto) 0.500 Neut % (Auto) 76.1 H Lymph % (Auto) 16.0 L [place] % (Auto) 6.0 Eos % (Auto) 1.3 Baso % (Auto) 0.1 Absolute Neuts (auto) 11.2 H Absolute Lymphs (auto) 2.36 Nucleated RBC % 0 D-Dimer Quant (PE/DVT) 0.29 Sodium 137 Potassium 3.5 Chloride 108 H Carbon Dioxide 23.0 Anion Gap 6 BUN 11 Creatinine 0.70 Estim Creat Clear Calc 112.20 Est GFR (MDRD) Af Amer 124 Est GFR (MDRD) Non-Af 102 BUN/Creatinine Ratio 15.6 Glucose 115 H Calcium 9.5 Troponin I High Sens 5 Lipase 48 EKG Initial EKG: Comments: My independent interpretation the patient's EKG shows sinus rhythm with a rate at 100. No ectopy. No acute ST elevation or depression. OK interval, QRS duration and QTc are normal. Discharge Plan Triage Chief Complaint: Chest Pain ED Provider: Richy Dumont Dx/Rx/DC Orders Clinical Impression: Left-sided chest pain Instructions: ED Chest Pain, Uncertain Cause Prescriptions: No Action aspirin 81 mg tablet,chewable 162 mg PO DAILY levothyroxine [Synthroid] 50 mcg tablet 50 mcg PO DAILY ascorbate calcium (vitamin C) 500 mg tablet 500 mg PO DAILY cholecalciferol (vitamin D3) 25 mcg (1,000 unit) capsule 25 mcg PO DAILY enoxaparin [Lovenox] 40 mg/0.4 mL Syringe 40 mg SUBCUT DAILY Primary Care Provider: LUCIANA PARKER Referrals: [facility] Doctor,Out of [Non-Staff] - Activity Restrictions/Additional Instructions: Follow-up with your primary and OB physician for Disposition Disposition: Home, Self Care
[2023-03-10 22:34] LABS: Absolute Lymphocyte Count 2.36 X10^3/uL (0.83-4.51); Absolute Neutrophil Count 11.2 X10^3/uL (2.0-7.7); Basophil# 0.02 X10^3/uL; Basophil% 0.1 % (0-1); Eosinophil# 0.19 X10^3/uL; Eosinophils% 1.3 % (0-5); Hematocrit 34.5 % (37-47); Lymphocyte # 2.36 X10^3/ul (0.83-4.51); Mean Corp Hgb Conc 31.9 g/dL (32-36); Mean Corpuscular Hgb 26.4 pg (27.0-32.0); Mean Corpuscular Volume 82.9 fL (81-99); Mean Platelet Vol. 12.1 fl (6.2-12.0); Monocyte# 0.88 X10^3/uL; NRBC Flagged by Analyzer 0 % (0-5); Neutrophil % 76.1 % (47-70); Platelet Count 206 K/mm3 (150-450); RBC Distribution Width CV 15.3 % (11.6-14.6); RBC Distribution Width SD 46.1 fl (35.1-43.9); Red Blood Count 4.16 M/mm3 (4.2-5.4); White Blood Count 14.7 K/mm3 (4.4-11.0)
[2023-03-10 22:44] LABS: D-Dimer Quantitative (DVT/PE) 0.29 FEU/ug/m (0.27-0.49)
[2023-03-10 22:48] LABS: Anion Gap 6 (5-15); BUN 11 mg/dL (7-18); BUN/Creat Ratio 15.6 RATIO (10-20); Calcium,Total 9.5 mg/dL (8.5-10.1); Chloride 108 mmol/L (98-107); EST Glomerular Filtration Rate 102 mL/min (>60); Est Glom Filt Rate - Afr Amer 124 mL/min (>60); Glucose 115 mg/dL (74-106); Potassium 3.5 mmol/L (3.5-5.1); Sodium Level 137 mmol/L (136-145); Troponin-I HS (w/2H Reflex) 5 pg/mL (3.0-54.0)
[2023-03-11 00:02] LABS: Lipase 48 U/L (13-75)
[2023-03-11 00:31] LABS: Reflex Troponin-HS? (from REC) Y
[2023-03-11 00:33] VITALS: BP 139/84; PULSE 89; RESP 16; O2SAT 99
== END 2023-03-11 00:34 | disposition home or self-care (01) ==
PROVIDERS: Emergency Provider Emergency Medicine; Visit Provider Emergency Medicine
DX: O99.891 Other specified diseases and conditions complicating pregnancy (principal); O99.013 Anemia complicating pregnancy, third trimester; R07.9 Chest pain, unspecified; Z3A.29 29 weeks gestation of pregnancy
CPT/HCPCS: 80048; 83690; 84484; 85025; 85379; 93005; 96360; 96361; 99284; J7040

== ENCOUNTER → 2023-03-19 | Outpatient (CLI) | payer MEDICAID, SELFPAY | END | disposition home or self-care (01) | PROVIDERS: Referring Provider Nurse Practitioner; Visit Provider Nurse Practitioner | DX: O12.13 Gestational proteinuria, third trimester (principal); Z3A.00 Weeks of gestation of pregnancy not specified | CPT/HCPCS: 87086; 87088 ==

== ENCOUNTER 2023-04-10 21:15 | Outpatient (CLI) | payer MEDICAID, SELFPAY ==
[2023-04-10 21:39] VITALS: PULSE 107; O2SAT 97
[2023-04-10 21:40] VITALS: TEMP 36.8; O2SAT 97
[2023-04-10 21:41] VITALS: BP 128/70; PULSE 93
[2023-04-10 21:51] VITALS: BMI 52.4
--- NOTE | 2023-04-10 22:14 | PCM.HP.BLA ---
History and Physical Date of Admission: 04/10/23 HPI: 33-year-old G6, P0 at 33/5 weeks, ТАТЬЯНА 05/24/2023, presented to labor and delivery for leaking of fluid and [place] contractions. Patient reports irregular cramping that is uncomfortable but she can speak through. States that this has been happening for several weeks. She was seen in [place] on Sunday for the same complaint and reported that her cervix was closed at that time. Reported some dampness in her underwear around 1830 today. She did report that she and her had intercourse today as well. Denies vaginal bleeding. Reports movement. care with: [facility] GANESH Watkins complicated by: Class III obesity with BMI of 52, hypertension on labetalol, hypothyroidism on levothyroxine, antiphospholipid antibody syndrome on Lovenox 40 mg daily and aspirin, gestational diabetes on metformin, history of tachycardia with a loop recorder that was implanted in August 2022. Patient sees Dr. Conrad. 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 Class III obesity 2. Chronic hypertension 3. Hypothyroidism 4. Antiphospholipid antibody syndrome 5. Tachycardia with loop recorder 6. Gestational diabetes, had history of insulin resistance prior to Surgical history: 1. [place] tooth extraction 2. Tonsillectomy 3. Laparoscopic cholecystectomy 4. Attempted cardiac ablation, unable to have ablation as she did not have the tachycardia while on the table 5. Loop recorder placement Medications: 1. Vitamin C 2. Aspirin 81 mg 3. Vitamin D3 4. Lovenox 40 mg daily 5. Labetalol 6. Levothyroxine 7. Metformin Allergies: Compazine and Benadryl cause agitation and anxiety Social history: Denies tobacco, alcohol, drug use Family history: Noncontributory Physical exam: Blood pressure 128/70, heart rate 93 General: No acute distress HEENT: Normal cephalic/atraumatic, PERRLA Cardiorespiratory: No increased effort Abdomen: Soft, nontender, gravid, obese Cervical exam: Closed thick and high, -4 station Extremities: Minimal edema Neurologic: No focal deficits Musculoskeletal: Moves all extremities equally Bedside ultrasound: Normal JACOB measuring 9.8 cm, breech position head maternal right FHR: 135/mod tori/+accel/no decel [place]: rare Assessment/plan: 33-year-old G6, P0 at 33/5 weeks, ТАТЬЯНА 05/24/2023, presented to labor and delivery for leaking of fluid and [place] contractions. ?Rule out rupture. ROM pending. Normal JACOB. No fluid on exam. Cervix closed/thick and high. Reviewed signs and symptoms of labor.
[2023-04-10 22:32] LABS: ROM Internal Control Test YES-OK TO RESULT pt. (Internal QC); ROM Patient Test Negative (Negative); Record Kit Lot#, ROM+ K1374
== END 2023-04-10 23:30 | disposition home or self-care (01) ==
LOC: WPOUT 21:22 → WP 21:23
PROVIDERS: Referring Provider Student in an Organized Health Care Education/Training Program; Visit Provider Student in an Organized Health Care Education/Training Program
DX: O47.03 False labor before 37 completed weeks of gestation, third trimester (principal); D68.61 Antiphospholipid syndrome; O99.113 Other diseases of the blood and blood-forming organs and certain disorders involving the immune mechanism complicating pregnancy, third trimester; O42.913 Preterm premature rupture of membranes, unspecified as to length of time between rupture and onset of labor, third trimester; O99.214 Obesity complicating childbirth; O10.92 Unspecified pre-existing hypertension complicating childbirth; O99.283 Endocrine, nutritional and metabolic diseases complicating pregnancy, third trimester; E03.9 Hypothyroidism, unspecified; O24.415 Gestational diabetes mellitus in pregnancy, controlled by oral hypoglycemic drugs; O99.891 Other specified diseases and conditions complicating pregnancy; R00.0 Tachycardia, unspecified; Z95.818 Presence of other cardiac implants and grafts; Z3A.33 33 weeks gestation of pregnancy; Z79.82 Long term (current) use of aspirin; Z79.899 Other long term (current) drug therapy; Z87.59 Personal history of other complications of pregnancy, childbirth and the puerperium
CPT/HCPCS: 59025; 59050; 76815; 84112; 99221; G0378

== ENCOUNTER 2023-06-10 17:45 | Emergency (ER) | payer MEDICAID, SELFPAY ==
[2023-06-10 17:46] VITALS: BP 141/90; PULSE 116; RESP 18; TEMP 37.5; O2SAT 99; BMI 50.3
--- NOTE | 2023-06-10 18:10 | EDS_ITS ---
<Statement entered by Brenda Armando MD - 06/10/23 23:31> I have personally performed a face to face assessment of the patient and have reviewed the NITIN Note. Patient presents secondary to URI symptoms and low-grade fever. She states that she thought she had seasonal allergies, but symptoms seem to worsen where she did not want to get out of bed yesterday. She has a 1-month-old that developed fevers today as well. Patient sitting upright in bed no acute distress. Nontoxic-appearing. Head and neck examination largely unremarkable. Heart is regular rate and rhythm. Lung sounds are clear. Abdomen is soft nontender. No skin rash or lesions noted. Patient's COVID test does return positive. We discussed supportive care and using Tylenol and ibuprofen to help with fever and body aches. Return instructions were provided. HPI History of Present Illness Chief Complaint: Fever Narrative Narrative: Patient presenting today due to a fever, sore throat, body aches, chills, dizziness, headache, and dry cough that started yesterday. She reports that she had a temperature of 100.9 ?F today. She has not taken anything for her temperature. She is presenting here with her 1-month-old baby who also has a fever. She denies any abdominal pain, nausea, vomiting, and diarrhea. [facility] Medical History Cholecystectomy planned History of asthma History of lupus anticoagulant disorder Implantable loop recorder present Insulin resistance Migraines Pancreatitis SVT (supraventricular tachycardia) Home Medications aspirin 81 mg chewable tablet 162 mg PO DAILY 07/04/21 [History Last Taken 04/09/23] enoxaparin 40 mg/0.4 mL subcutaneous syringe (Lovenox) 40 mg subcut DAILY 10/21/22 [History Last Taken 04/09/23] ascorbate calcium (vitamin C) 500 mg tablet 500 mg PO DAILY 12/05/22 [History Last Taken 04/09/23] cholecalciferol (vitamin D3) 25 mcg (1,000 unit) capsule 25 mcg PO DAILY 12/05/22 [History Last Taken 04/09/23] levothyroxine 50 mcg tablet (Synthroid) 50 mcg PO DAILY 12/05/22 [History Last Taken 04/10/23] labetalol 200 mg tablet 200 mg 04/10/23 [History Last Taken 04/10/23] metformin 1,000 mg tablet 2,000 mg 04/10/23 [History Last Taken 04/09/23] Allergy/AdvReac Type Severity Reaction Status Date / Time diphenhydramine Allergy Mild Chest Verified 06/10/23 17:46 [From Benadryl] tightness prochlorperazine Allergy Other Verified 06/10/23 17:46 [From Compazine] Family History Mother Cancer Thyroid disorder Father Heart disease Surgical History History of cholecystectomy History of electrophysiologic study (02/13/22) History of tonsillectomy Social History household members: spouse Smoking Status: Never smoker alcohol intake: never substance use type: does not use caffeine: Yes Type: coffee Number of servings: 2 ROS ROS ED Constitutional Constitutional ED: Reports chills, fever(s) and sweats Cardiovascular Cardiovascular: Denies chest pain or palpitations Respiratory/Chest Respiratory/Chest: Reports cough; Denies dyspnea, tachypnea or wheezing Gastrointestinal Gastrointestinal: Denies abdominal pain, diarrhea, nausea or vomiting Genitourinary Genitourinary ED: Denies dysuria, hematuria or urinary urgency Musculoskeletal Musculoskeletal: Reports myalgias Integumentary Denies rash Neurologic Neurologic: Denies weakness EXAM Physical Exam Const Vital Signs: 06/10/23 17:46 06/10/23 17:45 06/10/23 19:44 Temperature 99.5 F H Temperature Source Temporal Pulse Rate 116 H 120 H Respiratory Rate 18 Respiratory Effort Normal Respiratory Pattern Normal Blood Pressure 141/90 H 130/85 H Blood Pressure Mean 107 Pulse Ox 99 93 Oxygen Delivery Method Room Air 06/10/23 19:52 Temperature 99.9 F H Temperature Source Oral Pulse Rate 120 H Respiratory Rate 16 Respiratory Effort Respiratory Pattern Blood Pressure 130/85 H Blood Pressure Mean 100 Pulse Ox 93 Oxygen Delivery Method Room Air Positive well nourished, well developed and no apparent distress General Appearance ED: well developed HEENT Reports normocephalic, head/scalp atraumatic, TM's clear and moist mucous membranes HEENT Narrative: Posterior pharynx without erythema, no tonsillar exudate, uvula midline, no sign of peritonsillar abscess, no trismus Tympanic Membrane ED: Yes TM's clear bilateral Mouth ED: Yes moist mucous membranes normal Eyes PERRL and EOMs intact bilaterally Neck full ROM and supple Chest Wall inspection of chest normal Resp normal respiratory effort and clear to auscultation bilaterally Cardio regular rate and regular rhythm GI soft to palpation, non-tender, non-distended and no masses GI Narrative: Healed incision from , no surrounding erythema, no dehiscence Back/Spine normal ROM and normal to inspection Extremity normal to inspection and full ROM Neuro oriented x3, CN's II-XII intact bilaterally, moves all extremities, no focal motor deficits and no sensory deficits noted Sensorium / Orientation: awake and alert Psych mental status grossly normal and thought process normal Skin no rashes or lesions noted and no wounds MDM MDM MDM Narrative Medical decision making narrative: Patient presenting today with flulike symptoms that started yesterday. She is febrile here at 99.5 ?F and slightly tachycardic at 116 bpm. She has not had anything yet for her fever, will give her Tylenol. COVID and flu swabs will be obtained. Patient does have COVID, she has been educated on supportive care measures and is to alternate Tylenol and ibuprofen for fever as needed. Her baby also tested positive for COVID. She has been given return instructions and will be discharged home in stable condition. She is comfortable with plan. Discharge Plan Triage Chief Complaint: Fever ED Midlevel Provider: Neelima Nava ED Provider: Brenda Armando Dx/Rx/DC Orders Clinical Impression: COVID-19 Instructions: Coronavirus Disease 2019 (COVID-19): Caring for Yourself or Others Prescriptions: No Action aspirin 81 mg tablet,chewable 162 mg PO DAILY levothyroxine [Synthroid] 50 mcg tablet 50 mcg PO DAILY ascorbate calcium (vitamin C) 500 mg tablet 500 mg PO DAILY cholecalciferol (vitamin D3) 25 mcg (1,000 unit) capsule 25 mcg PO DAILY enoxaparin [Lovenox] 40 mg/0.4 mL Syringe 40 mg SUBCUT DAILY labetalol 200 mg tablet 200 mg Patient Comments: TAKE 1 TABLET BY MOUTH THREE TIMES DAILY metformin 1,000 mg tablet 2,000 mg Patient Comments: TAKE 1 TABLET BY MOUTH TWICE DAILY WITH MEALS FOR 30 DAYS Primary Care Provider: NOT,DEFINED Referrals: NOT,DEFINED [Primary Care Provider] - Activity Restrictions/Additional Instructions: Stay well-hydrated, alternate Tylenol and ibuprofen for your fever, return for any worsening of your symptoms. Disposition Disposition: Home, Self Care Discharge Date/Time: 06/10/23 19:53
[2023-06-10] MEDS: Acetaminophen 325 MG Tablet 650 MG PO (18:39)
[2023-06-10 19:44] VITALS: BP 130/85; PULSE 120; O2SAT 93
[2023-06-10 19:52] VITALS: BP 130/85; PULSE 120; RESP 16; TEMP 37.7; O2SAT 93
== END 2023-06-10 19:53 | disposition home or self-care (01) ==
PROVIDERS: Emergency Provider Emergency Medicine; Visit Provider Emergency Medicine
DX: U07.1 COVID-19 (principal)
CPT/HCPCS: 87428; 99283

== ENCOUNTER → 2023-11-20 | Outpatient (CLI) | payer MEDICAID, SELFPAY ==
[2023-11-20 11:21] LABS: Absolute Lymphocyte Count 2.36 X10^3/uL (0.83-4.51); Absolute Neutrophil Count 6.8 X10^3/uL (2.0-7.7); Basophil# 0.02 X10^3/uL; Basophil% 0.2 % (0-1); Eosinophil# 0.27 X10^3/uL; Eosinophils% 2.7 % (0-5); Hematocrit 40.9 % (37-47); Hemoglobin 12.6 g/dL (12.0-15.0); Lymphocyte # 2.36 X10^3/ul (0.83-4.51); Lymphocyte % 23.8 % (19-41); Mean Corp Hgb Conc 30.8 g/dL (32-36); Mean Corpuscular Hgb 23.9 pg (27.0-32.0); Mean Corpuscular Volume 77.5 fL (81-99); Mean Platelet Vol. 11.7 fl (6.2-12.0); Monocyte# 0.42 X10^3/uL; Monocyte% 4.2 % (0-10); NRBC Flagged by Analyzer 0 % (0-5); Neutrophil # 6.81 X10^3/uL (2.7-7.7); Neutrophil % 68.7 % (47-70); Platelet Count 296 K/mm3 (150-450); RBC Distribution Width CV 15.8 % (11.6-14.6); RBC Distribution Width SD 44.2 fl (35.1-43.9); Red Blood Count 5.28 M/mm3 (4.2-5.4); White Blood Count 9.9 K/mm3 (4.4-11.0)
[2023-11-20 15:15] LABS: Anion Gap 7 (5-15); BUN 11 mg/dL (7-18); BUN/Creat Ratio 15.3 RATIO (10-20); Calcium,Total 8.8 mg/dL (8.5-10.1); Chloride 108 mmol/L (98-107); Creatinine, Serum 0.72 mg/dL (0.55-1.02); EST Glomerular Filtration Rate 100 mL/min (>60); Est Glom Filt Rate - Afr Amer 121 mL/min (>60); Glucose 125 mg/dL (74-106); Potassium 3.6 mmol/L (3.5-5.1); Sodium Level 140 mmol/L (136-145); Thyroid Stim Hormone (TSH) 2.02 uIU/mL (0.358-3.74)
== END | disposition home or self-care (01) ==
LOC: LAB 10:40
PROVIDERS: Referring Provider Physician Assistant Medical; Visit Provider Physician Assistant Medical
DX: I47.10 Supraventricular tachycardia, unspecified (principal); I47.20 Ventricular tachycardia, unspecified; Z95.818 Presence of other cardiac implants and grafts
CPT/HCPCS: 36415; 80048; 83735; 84443; 85025

== ENCOUNTER → 2024-03-06 | Outpatient (CLI) | payer MEDICAID, SELFPAY ==
--- NOTE | 2024-03-06 13:49 | RAD_ITS ---
STUDY: X-RAY - LEFT FOOT CLINICAL: Female, 34 years old. Injury. TECHNIQUE: 4 views of the left foot. COMPARISON: None. FINDINGS: Intact talus, calcaneus, and tarsal bones. There is a plantar calcaneal spur. Normal visualized subtalar, talonavicular, calcaneocuboid, tarsal and tarsometatarsal articulations. Normal metatarsi. Normal metatarsophalangeal joint of the great toe. Normal tibial and fibular sesamoid bones. Normal interphalangeal joint of the great toe. Normal phalanges of the great toe. Normal second through fifth metatarsophalangeal joints. Normal interphalangeal joints and phalanges of the lesser toes. The soft tissue structures are unremarkable. There is no demonstrated fracture. RAD/Foot min 3 Views IMPRESSION: Plantar calcaneal spur. Electronically Signed: Geovani Lraa MD at 14:14 EDT ,
== END | disposition home or self-care (01) ==
LOC: RAD.FUTURE 13:43 → MTRAD 13:45
PROVIDERS: Visit Provider Physician Assistant Surgical
DX: T14.90XA Injury, unspecified, initial encounter (principal); X58.XXXA Exposure to other specified factors, initial encounter
CPT/HCPCS: 73630

== ENCOUNTER 2024-06-24 18:30 | Emergency (ER) | payer MEDICAID, SELFPAY ==
[2024-06-24 18:30] VITALS: TEMP 36.6; BMI 53.1
[2024-06-24 18:40] VITALS: BP 136/83; PULSE 100; RESP 18; TEMP 36.6; O2SAT 97
--- NOTE | 2024-06-24 19:23 | EKG12_ITS ---
Test Reason : CP Blood Pressure : / mmHG Vent. Rate : 085 BPM Atrial Rate : 085 BPM P-R Int : 178 ms QRS Dur : 084 ms QT Int : 386 ms P-R-T Axes : 040 005 069 degrees QTc Int : 459 ms Normal sinus rhythm Minimal voltage criteria for LVH, may be normal variant ( R in aVL ) Borderline ECG Confirmed by Pj Sanchez ([id number]), business editor AMBIKA TELLO ([id number]) on 06/25/2024 9:34:21 AM Referred By: RAYMOND Confirmed By:Pj Sanchez
--- NOTE | 2024-06-24 19:23 | RAD_ITS ---
STUDY: X-RAY CHEST REASON FOR EXAM: Female, 34 years old. chest pain TECHNIQUE: AP portable COMPARISON: March 22, 2022 FINDINGS: Focal reticulonodular interstitial thickening in the right lower lobe which is new finding since prior exam possibly inflammatory.. There is no demonstrated pleural abnormality. Normal size heart. Normal mediastinum and [place]. Normal visualized pulmonary arteries. Normal visualized aortic arch and descending thoracic aorta. Normal visualized thoracic spine. Normal visualized ribs, clavicles, and shoulders. There is no demonstrated abnormality of the visualized soft tissue structures of the upper abdomen. RAD/Chest 1 View (Portable) IMPRESSION: Reticulonodular interstitial thickening in the right lower lobe Electronically Signed: Cecil Duron MD at 19:59 EDT ,
--- NOTE | 2024-06-24 19:23 | EDS_ITS ---
HPI History of Present Illness Chief Complaint: Chest Pain Detail of Chief Complaint: Chest pain, palpitations, migraine Informant: patient Narrative Narrative: Patient presents to the emergency department with complaint of a migraine that she has had all day and just not feeling well. Patient states that prior to coming to the emergency department she had an episode where she was try to make dinner and started feeling palpitations and racing heart and so she went and sat down with her child and then just everything became somewhat fuzzy but does not think she passed out. She has history of palpitations as well as PVCs and PACs and possibly SVT. She tells me that they attempted to do an ablation on her more than a year ago at [facility] But they were unsuccessful. She has a loop recorder that she wears that she has had in for about 2 years and they have not found any significant dysrhythmias or arrhythmias. Patient also had some chest discomfort while this was happening. She denies recent travel or surgery. No history of PE or DVT. She denies recent illness. Patient took some ibuprofen and her headaches better now she rates a 7 out of 10. She gets Botox injections for migraines. She does not want any medications for migraine. [facility] Medical History Hypothyroidism Pancreatitis Cholecystectomy planned Implantable loop recorder present SVT (supraventricular tachycardia) History of lupus anticoagulant disorder History of asthma Insulin resistance Migraines Home Medications ?Medication ?Instructions ?Recorded ?Last Taken ?Type levothyroxine 50 mcg tablet 50 mcg PO DAILY 12/05/22 04/10/23 History (Synthroid) metoprolol succinate 25 mg 25 mg PO DAILY #90 tabs 11/20/23 Unknown Rx tablet,extended release 24 hr ascorbic acid (vitamin C) 500 mg 500 mg PO DAILY 03/05/24 Unknown History tablet aspirin 81 mg chewable tablet 81 mg PO DAILY 03/05/24 Unknown History cholecalciferol (vitamin D3) 25 25 mcg PO DAILY 03/05/24 Unknown History mcg (1,000 unit) tablet naproxen 500 mg tablet 500 mg PO BID PRN pain #20 tabs 03/06/24 Unknown Rx Allergy/AdvReac Type Severity Reaction Status Date / Time diphenhydramine (From Allergy Mild Chest Verified 06/24/24 18:41 Benadryl) tightness prochlorperazine (From Allergy Other Verified 06/24/24 18:41 Compazine) Family History Mother Cancer Thyroid disorder Father Heart disease Early 50s Surgical History History of section History of electrophysiologic study (02/13/22) History of tonsillectomy History of cholecystectomy Social History household members: spouse Smoking Status: Never smoker alcohol intake: never substance use type: does not use caffeine: Yes Type: coffee Number of servings: 2 ROS ROS ED Review of Systems ROS Unobtainable: other Constitutional Constitutional ED: Reports lethargy; Denies chills, fever(s), sweats or weight loss Eyes Eyes: Denies blurry vision, change in vision or diplopia ENT ENT ED: Denies rhinorrhea or sore throat Cardiovascular Cardiovascular: Reports chest pain, palpitations and racing heartbeat; Denies orthopnea Respiratory/Chest Respiratory/Chest: Denies cough, dyspnea, dyspnea on exertion, orthopnea or sputum Gastrointestinal Gastrointestinal: Denies abdominal pain, diarrhea, nausea or vomiting Genitourinary Genitourinary ED: Denies dysuria, hematuria or urinary frequency Musculoskeletal Musculoskeletal: Denies arthralgias, back pain, myalgias or neck pain Integumentary Denies abscess, Abrasions or rash Neurologic Neurologic: Reports headache(s); Denies weakness Psychiatric Psychiatric: Denies anxiety, depression or suicidal thoughts Endocrine Endocrinology: Denies polydipsia, polyphagia or polyuria Hematologic/Lymphatic Hematologic/Lymphatic: Denies easy bleeding, easy bruising or lymphadenopathy Allergic/Immunologic Allergic/Immunologic ED: Denies mouth swelling, tongue swelling or urticaria EXAM Physical Exam Const Vital Signs: 06/24/24 18:30 06/24/24 18:40 06/24/24 18:41 Temperature 97.8 F 97.8 F Temperature Source Oral Temporal Pulse Rate 100 Respiratory Rate 18 Respiratory Effort Normal Blood Pressure 136/83 H Blood Pressure Mean 100 Pulse Ox 97 Oxygen Delivery Method Room Air 06/24/24 19:30 06/24/24 19:33 06/24/24 20:00 Temperature Temperature Source Pulse Rate 95 101 H Respiratory Rate 22 H 23 H Respiratory Effort Blood Pressure 126/72 H 116/75 Blood Pressure Mean 90 86 Pulse Ox 95 Oxygen Delivery Method Room Air Room Air Positive well nourished and well developed General Appearance ED: well developed and NAD HEENT Reports TM's clear and moist mucous membranes normocephalic and atraumatic; Negative for trauma or tenderness Tympanic Membrane ED: Yes TM's clear Eyes PERRL and EOMs intact bilaterally General Eye ED: Negative for pale conjunctiva or scleral icterus Neck no lymphadenopathy, supple and no JVD General: Negative for tenderness Chest Wall inspection of chest normal and palpation of chest normal Chest: Negative for tenderness Resp normal respiratory effort and clear to auscultation bilaterally Effort and Inspection: Negative for respiratory distress or pain with movement Auscultation: Negative for rhonchi, wheezes or diminished lung sounds Cardio regular rate, regular rhythm, S1 normal heart sound, S2 normal heart sound and no murmurs Peripheral Pulses: pulses 2+ throughout GI normal to inspection, nondistended, normoactive bowel sounds, soft to palpation, non-tender, non-distended and no masses Back/Spine no CVA tenderness and no thoracic nor lumbar tenderness Extremity normal to inspection General Extremety ED: Negative for edema General Extremity: Negative for edema Neuro oriented x3, CN's II-XII intact bilaterally, no sensory deficits noted and gait normal Sensorium / Orientation: awake, alert, oriented to person, oriented to place and oriented to time Motor Exam: strength 5/5 throughout and strength abnormal Psych mental status grossly normal Skin no rashes or lesions noted and no wounds MDM MDM MDM Narrative Medical decision making narrative: Patient presents with chest discomfort and prior history of SVT. Has a loop recorder. She is been under more stress of late given that her child's been sick and had pneumonia and was recently admitted to [facility]. In the differential would be SVT versus PE. Less likely acute coronary syndrome. Anxiety. IV line established. EKG obtained arrival showed a sinus rhythm with rate of 85 bpm with no acute ST segment changes. CBC with differential showed a white count of 10.4 with hemoglobin 12.3 and platelet count of 225. Chemistries unremarkable. Troponin was normal at 3. D-dimer was normal at 0.2. Chest x- ray showed my interpretation no acute disease process however radiology thought there was a reticular nodular interstitial thickening especially on the right side. Patient clinically looks well and feels well. Discussed potentially adding metoprolol however she states that she used to be on it but she did not react well to it and it dropped her blood pressure too low. Patient will be advised to follow-up with her clock maker within the next 3 to 5 days. Lab Data Attestation: I reviewed the patient's lab results. Labs: Laboratory Results - last 24 hr 06/24/24 18:52 WBC 10.4 RBC 5.05 Hgb 12.3 Hct 39.9 MCV 79.0 L MCH 24.4 L MCHC 30.8 L RDW Std Deviation 45.5 H RDW Coeff of Remigio 15.9 H Plt Count 225 MPV 12.3 H Immature Gran % (Auto) 0.300 Neut % (Auto) 61.7 Lymph % (Auto) 30.0 [place] % (Auto) 5.3 Eos % (Auto) 2.4 Baso % (Auto) 0.3 Absolute Neuts (auto) 6.4 Absolute Lymphs (auto) 3.10 Nucleated RBC % 0 D-Dimer Quant (PE/DVT) 0.36 Sodium 140 Potassium 3.4 L Chloride 105 Carbon Dioxide 28.0 Anion Gap 7 BUN 13 Creatinine 0.86 Estim Creat Clear Calc 144.63 Est GFR (MDRD) Af Amer 97 Est GFR (MDRD) Non-Af 80 BUN/Creatinine Ratio 15.0 Glucose 149 H Calcium 8.6 Troponin I High Sens 3 Radiography Diagnostic Testing: Clinical Impression(s) from Imaging Studies Chest X-Ray 06/24/24 19:23 IMPRESSION: Reticulonodular interstitial thickening in the right lower lobe Electronically Signed: Cecil Duron MD at 19:59 EDT , 1 view chest x-ray obtained interpreted by myself as no evidence of infiltrate or pneumothorax or acute disease process. Radiology felt there was reticulonodular interstitial thickening in the right lower lobe. EKG Initial EKG: Attestation: I personally reviewed and interpreted this EKG as follows: Comments: Sinus rhythm with rate of 85 bpm with no acute ST segment changes Discharge Plan Triage Chief Complaint: Chest Pain ED Provider: Madeleine Hebert Dx/Rx/DC Orders Clinical Impression: Migraine, Heart palpitations, Chest pain Instructions: ED Chest Pain, Uncertain Cause, ED, Migraine (Classical), ED Palpitations Prescriptions: No Action aspirin 81 mg tablet,chewable 81 mg PO DAILY levothyroxine [Synthroid] 50 mcg tablet 50 mcg PO DAILY metoprolol succinate 25 mg tablet extended release 24 hr 25 mg PO DAILY Qty: 90 3RF ascorbic acid (vitamin C) 500 mg tablet 500 mg PO DAILY cholecalciferol (vitamin D3) 25 mcg (1,000 unit) tablet 25 mcg PO DAILY naproxen 500 mg tablet 500 mg PO BID PRN (Reason: pain) Qty: 20 0RF Primary Care Provider: [facility] Doctor,Out of Referrals: [facility] Doctor,Out of [Primary Care Provider] - Activity Restrictions/Additional Instructions: Follow-up with your primary care physician within next 3 to 5 days. Print Language: Welsh Disposition Disposition: Home, Self Care
[2024-06-24 19:30] VITALS: BP 126/72; PULSE 95; RESP 22; O2SAT 95
[2024-06-24] MEDS: 0.9% Normal Saline (1000mL) 1,000 ML 999 ML IV (19:32)
[2024-06-24 19:44] LABS: Absolute Neutrophil Count 6.4 X10^3/uL (2.0-7.7); Basophil# 0.03 X10^3/uL; Basophil% 0.3 % (0-1); Eosinophil# 0.25 X10^3/uL; Eosinophils% 2.4 % (0-5); Hematocrit 39.9 % (37-47); Hemoglobin 12.3 g/dL (12.0-15.0); Mean Corp Hgb Conc 30.8 g/dL (32-36); Mean Corpuscular Hgb 24.4 pg (27.0-32.0); Mean Platelet Vol. 12.3 fl (6.2-12.0); Monocyte# 0.55 X10^3/uL; Monocyte% 5.3 % (0-10); NRBC Flagged by Analyzer 0 % (0-5); Neutrophil # 6.39 X10^3/uL (2.7-7.7); Neutrophil % 61.7 % (47-70); Platelet Count 225 K/mm3 (150-450); RBC Distribution Width CV 15.9 % (11.6-14.6); RBC Distribution Width SD 45.5 fl (35.1-43.9); Red Blood Count 5.05 M/mm3 (4.2-5.4); White Blood Count 10.4 K/mm3 (4.4-11.0)
[2024-06-24 19:50] LABS: D-Dimer Quantitative (DVT/PE) 0.36 FEU/ug/m (0.27-0.49)
[2024-06-24 19:54] LABS: Anion Gap 7 (5-15); BUN 13 mg/dL (7-18); Calcium,Total 8.6 mg/dL (8.5-10.1); Chloride 105 mmol/L (98-107); Creatinine, Serum 0.86 mg/dL (0.55-1.02); EST Glomerular Filtration Rate 80 mL/min (>60); Est Glom Filt Rate - Afr Amer 97 mL/min (>60); Estimated Creatinine Clearance 144.63 ml/min; Glucose 149 mg/dL (74-106); Potassium 3.4 mmol/L (3.5-5.1); Sodium Level 140 mmol/L (136-145); Troponin-I HS (w/2H Reflex) 3 pg/mL (3.0-54.0)
[2024-06-24 20:00] VITALS: BP 116/75; PULSE 101; RESP 23
[2024-06-24 21:00] VITALS: BP 119/78; PULSE 91; RESP 16; O2SAT 97
[2024-06-24 21:15] VITALS: BP 109/51; PULSE 84; RESP 19; TEMP 36.7; O2SAT 97
[2024-06-24 21:29] LABS: Reflex Troponin-HS? (from REC) Y
== END 2024-06-24 21:18 | disposition home or self-care (01) ==
PROVIDERS: Emergency Provider Emergency Medicine; Visit Provider Emergency Medicine
DX: G43.909 Migraine, unspecified, not intractable, without status migrainosus (principal); R07.89 Other chest pain; R00.2 Palpitations; Z79.82 Long term (current) use of aspirin; Z79.899 Other long term (current) drug therapy
CPT/HCPCS: 71045; 80048; 84484; 85025; 85379; 93005; 96360; 99284; J7030; A4216

== ENCOUNTER 2024-08-18 20:11 | Emergency (ER) | payer OTHER, SELFPAY ==
[2024-08-18 20:13] VITALS: BP 148/112; PULSE 107; RESP 18; TEMP 36.3; O2SAT 97; BMI 52.1
--- NOTE | 2024-08-18 20:51 | EX.ED.VIS.HA ---
HPI History of Present Illness Chief Complaint: Headache Detail of Chief Complaint: Headache Informant: patient Narrative Narrative: Patient presents with headache that started 2 days ago. Headache was more severe this morning when she woke up and did not go to work. 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 Patient sees the migraine center in [place]. She denies falls or head injuries. She denies recent illness. Patient states normally she gets Botox for her migraines. She does describe nausea and photophobia. Scribes pressure all over her head. [facility] Medical History Hypothyroidism Pancreatitis Cholecystectomy planned Implantable loop recorder present SVT (supraventricular tachycardia) History of lupus anticoagulant disorder History of asthma Insulin resistance Migraines Home Medications ?Medication ?Instructions ?Recorded ?Last Taken ?Type levothyroxine 50 mcg tablet 50 mcg PO DAILY 12/05/22 04/10/23 History (Synthroid) ascorbic acid (vitamin C) 500 mg 500 mg PO DAILY 03/05/24 Unknown History tablet aspirin 81 mg chewable tablet 81 mg PO DAILY 03/05/24 Unknown History cholecalciferol (vitamin D3) 25 25 mcg PO DAILY 03/05/24 Unknown History mcg (1,000 unit) tablet dulaglutide 1.5 mg/0.5 mL 1.5 mg subcut QWEEK 06/24/24 Unknown History subcutaneous pen injector (Trulicity) Allergy/AdvReac Type Severity Reaction Status Date / Time diphenhydramine (From Allergy Mild Chest Verified 08/18/24 20:12 Benadryl) tightness prochlorperazine (From Allergy Other Verified 08/18/24 20:12 Compazine) Family History Mother Cancer Thyroid disorder Father Heart disease Early 50s Surgical History History of section History of electrophysiologic study (02/13/22) History of tonsillectomy History of cholecystectomy Social History household members: spouse Smoking Status: Never smoker alcohol intake: never substance use type: does not use caffeine: Yes Type: coffee Number of servings: 2 ROS ROS ED Review of Systems ROS Unobtainable: other Constitutional Constitutional ED: Reports lethargy; Denies chills, fever(s), sweats or weight loss Eyes Eyes: Denies blurry vision, change in vision or diplopia ENT ENT ED: Denies rhinorrhea or sore throat Cardiovascular Cardiovascular: Denies chest pain, orthopnea or racing heartbeat Respiratory/Chest Respiratory/Chest: Denies cough, dyspnea, dyspnea on exertion, orthopnea or sputum Gastrointestinal Gastrointestinal: Denies abdominal pain, diarrhea, nausea or vomiting Genitourinary Genitourinary ED: Denies dysuria, hematuria or urinary frequency Musculoskeletal Musculoskeletal: Denies arthralgias, back pain, myalgias or neck pain Integumentary Denies abscess, Abrasions or rash Neurologic Neurologic: Reports headache(s) and paresthesias; Denies weakness Psychiatric Psychiatric: Denies anxiety, depression or suicidal thoughts Endocrine Endocrinology: Denies polydipsia, polyphagia or polyuria Hematologic/Lymphatic Hematologic/Lymphatic: Denies easy bleeding, easy bruising or lymphadenopathy Allergic/Immunologic Allergic/Immunologic ED: Denies mouth swelling, tongue swelling or urticaria EXAM Physical Exam Const Vital Signs: 08/18/24 20:13 08/18/24 21:04 08/18/24 22:35 Temperature 97.3 F L Temperature Source Temporal Pulse Rate 107 H 82 Respiratory Rate 18 18 Respiratory Pattern Normal Blood Pressure 148/112 H 132/75 H Blood Pressure Mean 124 94 Pulse Ox 97 98 Oxygen Delivery Method Room Air Room Air Positive well nourished and well developed General Appearance ED: well developed and NAD HEENT Reports TM's clear and moist mucous membranes normocephalic and atraumatic; Negative for trauma or tenderness Tympanic Membrane ED: Yes TM's clear Eyes PERRL and EOMs intact bilaterally General Eye ED: Negative for pale conjunctiva or scleral icterus Neck no lymphadenopathy, supple and no JVD General: Negative for tenderness Chest Wall inspection of chest normal and palpation of chest normal Chest: Negative for tenderness Resp normal respiratory effort and clear to auscultation bilaterally Effort and Inspection: Negative for respiratory distress or pain with movement Auscultation: Negative for rhonchi, wheezes or diminished lung sounds Cardio regular rate, regular rhythm, S1 normal heart sound, S2 normal heart sound and no murmurs Peripheral Pulses: pulses 2+ throughout GI normal to inspection, nondistended, normoactive bowel sounds, soft to palpation, non-tender, non-distended and no masses Back/Spine no CVA tenderness and no thoracic nor lumbar tenderness Extremity normal to inspection General Extremety ED: Negative for edema General Extremity: Negative for edema Neuro oriented x3, CN's II-XII intact bilaterally, no sensory deficits noted and gait normal Neuro Narrative: Pupils equal react light bilaterally. Patient does have a left-sided facial droop. Decree sensation left side of face. Also slight decrease sensation to the left hand. No focal weakness on exam. Sensorium / Orientation: awake, alert, oriented to person, oriented to place and oriented to time Motor Exam: strength 5/5 throughout and strength abnormal Psych mental status grossly normal Skin no rashes or lesions noted and no wounds MDM MDM MDM Narrative Medical decision making narrative: Patient with headache at severe with history of migraines and hemiplegic migraines. IV line will be established. Will obtain a CT scan of the brain without contrast to rule out intracranial hemorrhage or other acute process. Patient will be given Reglan and Toradol as well as a liter normal same fluid bolus. Patient had improvement of her headache initially from a 9 out of 10 to a 7 out of 10 but continues to complain of significant headache. CT scan of the brain without contrast was unremarkable. CBC with differential showed a white count 11.4 with hemoglobin 12.6 and platelet count of of 206. Chemistries unremarkable. Because of the ongoing headache I did order valproic acid 500 mg IV and Decadron 10 mg IV. I discussed case with [facility] neurology Dr. Sanchez who recommended repeating IV fluid bolus as well as adding magnesium 2 g IV and another 500 mg of valproic acid IV. If symptoms do not improve or clinical condition changes she recommended considering further imaging such as possibly MRI. If symptoms improve she has the patient follow-up with the migraine center as they have infusion centers and can help with treatment. Dr. Sanchez did not feel admission would be beneficial and could potentially make the migraine condition worse. Suspect likely migraine as a cause of her facial droop and significant headache. Hernandez's palsy would be in the differential. Do not feel patient is having a stroke. Case will be turned over to night physician awaiting repeat IV medications and fluids and reassessment. Will also discuss with patient. Lab Data Attestation: I reviewed the patient's lab results. Labs: Laboratory Results - last 24 hr 08/18/24 21:00 WBC 11.4 H RBC 5.06 Hgb 12.6 Hct 39.8 MCV 78.7 L MCH 24.9 L MCHC 31.7 L RDW Std Deviation 44.5 H RDW Coeff of Remigio 15.7 H Plt Count 206 MPV 12.0 Immature Gran % (Auto) 0.400 Neut % (Auto) 61.3 Lymph % (Auto) 28.5 [place] % (Auto) 7.2 Eos % (Auto) 2.3 Baso % (Auto) 0.3 Absolute Neuts (auto) 7.0 Absolute Lymphs (auto) 3.24 Nucleated RBC % 0 Sodium 141 Potassium 3.7 Chloride 110 H Carbon Dioxide 25.0 Anion Gap 6 BUN 12 Creatinine 0.82 Estim Creat Clear Calc 151.41 Est GFR (MDRD) Af Amer 103 Est GFR (MDRD) Non-Af 85 BUN/Creatinine Ratio 14.6 Glucose 120 H Calcium 9.0 Radiography Diagnostic Testing: Clinical Impression(s) from Imaging Studies Brain CT 08/18/24 21:10 IMPRESSION: No evidence of acute intracranial injury. Electronically Signed: Pj Amor MD at 22:38 EST , Discharge Plan Triage Chief Complaint: Headache Other Complaint: Hypertension ED Provider: Madeleine Hebert Dx/Rx/DC Orders Clinical Impression: Headache, migraine Instructions: ED, Migraine (Classical) Prescriptions: No Action aspirin 81 mg tablet,chewable 81 mg PO DAILY levothyroxine [Synthroid] 50 mcg tablet 50 mcg PO DAILY ascorbic acid (vitamin C) 500 mg tablet 500 mg PO DAILY cholecalciferol (vitamin D3) 25 mcg (1,000 unit) tablet 25 mcg PO DAILY Trulicity 1.5 mg/0.5 mL pen injector 1.5 mg subcut QWEEK Primary Care Provider: LUCIANA PARKER Referrals: LUCIANA PARKER [Other] Activity Restrictions/Additional Instructions: Follow-up with the migraine clinic for further treatment if symptoms persist Print Language: Micronesian
[2024-08-18] MEDS: Ketorolac 30 MG/ML Syringe IV (21:02)
[2024-08-18] MEDS: Metoclopramide 10 MG/2 ML Vial IV (21:02)
[2024-08-18] MEDS: 0.9% Normal Saline (1000mL) 1,000 ML 1000 ML IV (21:02)
--- NOTE | 2024-08-18 21:10 | CT_ITS ---
EXAM: CT HEAD WITHOUT INTRAVENOUS CONTRAST CLINICAL INDICATION: headache TECHNIQUE: Multiple axial images were obtained of the head without intravenous contrast. This CT exam was performed using one or more of the following dose reduction techniques: automated exposure control, adjustment of the mA and/or kV according to patient size, and/or use of iterative reconstruction technique. RADIATION DOSE: CTDIvol = 44.99 mGy, DLP = 829.85 mGy-cm COMPARISON: 06/15/2021. FINDINGS: BRAIN AND EXTRA-AXIAL SPACES: Unremarkable. No intra- or extra-axial hemorrhage. No evidence of acute infarct. No intracranial mass or mass effect. There is preservation of the britt/white matter interface. Posterior fossa structures are unremarkable. Ventricles are appropriate for age. No hydrocephalus. Basal cisterns are patent. BONES/JOINTS: Unremarkable. No discrete lytic or blastic abnormalities. SINUSES: Unremarkable as visualized. Clear. MASTOID AIR CELLS: Unremarkable. Clear. ORBITS: Visualized globes, extraocular muscles, optic nerves and retrobulbar fat appear unremarkable. CT/Brain/Head without Contrast IMPRESSION: No evidence of acute intracranial injury. Electronically Signed: Pj Amor MD at 22:38 EST ,
[2024-08-18 21:12] LABS: Absolute Lymphocyte Count 3.24 X10^3/uL (0.83-4.51); Basophil# 0.03 X10^3/uL; Basophil% 0.3 % (0-1); Eosinophil# 0.26 X10^3/uL; Eosinophils% 2.3 % (0-5); Hematocrit 39.8 % (37-47); Hemoglobin 12.6 g/dL (12.0-15.0); Lymphocyte # 3.24 X10^3/ul (0.83-4.51); Lymphocyte % 28.5 % (19-41); Mean Corp Hgb Conc 31.7 g/dL (32-36); Mean Corpuscular Hgb 24.9 pg (27.0-32.0); Mean Corpuscular Volume 78.7 fL (81-99); Monocyte# 0.82 X10^3/uL; Monocyte% 7.2 % (0-10); NRBC Flagged by Analyzer 0 % (0-5); Neutrophil # 6.99 X10^3/uL (2.7-7.7); Neutrophil % 61.3 % (47-70); Platelet Count 206 K/mm3 (150-450); RBC Distribution Width CV 15.7 % (11.6-14.6); RBC Distribution Width SD 44.5 fl (35.1-43.9); Red Blood Count 5.06 M/mm3 (4.2-5.4); White Blood Count 11.4 K/mm3 (4.4-11.0)
[2024-08-18 21:28] LABS: Anion Gap 6 (5-15); BUN 12 mg/dL (7-18); BUN/Creat Ratio 14.6 RATIO (10-20); Chloride 110 mmol/L (98-107); Creatinine, Serum 0.82 mg/dL (0.55-1.02); EST Glomerular Filtration Rate 85 mL/min (>60); Est Glom Filt Rate - Afr Amer 103 mL/min (>60); Estimated Creatinine Clearance 151.41 ml/min; Glucose 120 mg/dL (74-106); Potassium 3.7 mmol/L (3.5-5.1); Sodium Level 141 mmol/L (136-145)
[2024-08-18 22:35] VITALS: BP 132/75; PULSE 82; RESP 18; O2SAT 98
[2024-08-18] MEDS: dexAMETHasone 10 MG/ML Vial IV (23:05)
[2024-08-18] MEDS: Valproate Sodium 500 MG in Dextrose 5%-Water (50mL Bag) 50 ML 50 MG IV (23:05)
[2024-08-19] MEDS: Valproate Sodium 500 MG in Dextrose 5%-Water (50mL Bag) 50 ML 50 MG IV (00:25)
[2024-08-19] MEDS: 0.9% Normal Saline (1000mL) 1,000 ML 999 ML IV (00:25)
[2024-08-19] MEDS: Magnesium Sulfate 2 GM in Dextrose 5%-Water (100mL Bag) 100 ML IV (00:31)
[2024-08-19 00:34] VITALS: BP 129/85; PULSE 71; RESP 18; O2SAT 95
[2024-08-19 02:00] VITALS: BP 127/92; PULSE 71; RESP 18; O2SAT 97
[2024-08-19 04:00] VITALS: BP 128/73; PULSE 72; RESP 18; TEMP 36.7; O2SAT 100
== END 2024-08-19 04:05 | disposition home or self-care (01) ==
PROVIDERS: Emergency Provider Emergency Medicine; Visit Provider Emergency Medicine
DX: G43.909 Migraine, unspecified, not intractable, without status migrainosus (principal)
CPT/HCPCS: 70450; 80048; 85025; 96361; 96365; 96367; 96368; 96375; 99284; A4216

== ENCOUNTER 2024-09-17 16:13 | Emergency (ER) | payer OTHER, SELFPAY ==
[2024-09-17] VITALS (8 sets, daily range): BP systolic 81–157; BP diastolic 65–92; PULSE 82–108; RESP 16–24; TEMP 36.6–36.9; O2SAT 96–99; BMI 53.4
--- NOTE | 2024-09-17 17:05 | EKG12_ITS ---
Test Reason : Blood Pressure : */* mmHG Vent. Rate : 82 BPM Atrial Rate : 82 BPM P-R Int : 180 ms QRS Dur : 82 ms QT Int : 412 ms P-R-T Axes : 61 26 64 degrees QTcB Int : 481 ms Sinus rhythm with occasional Premature ventricular complexes Prolonged QT Abnormal ECG Confirmed by Pj Sanchez ([id number]), image editor AMBIKA TELLO ([id number]) on 09/18/2024 10:20:08 AM Referred By: Confirmed By: Pj Sanchez
[2024-09-17 17:21] LABS: Absolute Lymphocyte Count 2.79 X10^3/uL (0.83-4.51); Absolute Neutrophil Count 6.2 X10^3/uL (2.0-7.7); Basophil# 0.03 X10^3/uL; Basophil% 0.3 % (0-1); Eosinophil# 0.27 X10^3/uL; Eosinophils% 2.7 % (0-5); Hemoglobin 12.7 g/dL (12.0-15.0); Lymphocyte # 2.79 X10^3/ul (0.83-4.51); Mean Corp Hgb Conc 31.8 g/dL (32-36); Mean Corpuscular Hgb 24.7 pg (27.0-32.0); Mean Corpuscular Volume 77.7 fL (81-99); Mean Platelet Vol. 12.1 fl (6.2-12.0); Monocyte# 0.61 X10^3/uL; Monocyte% 6.1 % (0-10); NRBC Flagged by Analyzer 0 % (0-5); Neutrophil # 6.24 X10^3/uL (2.7-7.7); Neutrophil % 62.5 % (47-70); Platelet Count 172 K/mm3 (150-450); RBC Distribution Width CV 15.8 % (11.6-14.6); RBC Distribution Width SD 44.8 fl (35.1-43.9); Red Blood Count 5.15 M/mm3 (4.2-5.4)
--- NOTE | 2024-09-17 17:24 | ED.VIS.CHEST ---
HPI History of Present Illness Chief Complaint: Chest Other Narrative Narrative: Chief complaint and HPI: URI type symptoms and shortness of breath. 34-year-old female with past medical history of SVT with implantable loop recorder, HTN, lupus anticoagulant disorder presents for evaluation of URI type symptoms and shortness of breath. Associated symptom is congestion and right-sided chest pain with deep inspiration. Chest pain described as sharp. Patient went to an urgent care prior to arrival for her symptoms and was referred to the emergency room for further workup. Patient states she has a mild case of asthma in which she uses a as needed albuterol. No maintenance inhaler. Patient denies any fever, chills, abdominal pain, nausea, vomiting, dysuria. Patient states that she is actively trying to get and therefore there is a chance she could be . States she supposed be on aspirin for her lupus anticoagulant disorder but is currently not taking it. No history of DVT or PE. Denies recent trauma or surgery, exogenous estrogen use, unilateral leg swelling, known malignancy, trave. Review of systems: See HPI Medications: As listed on the chart Allergies: As listed on the chart PFSH: Per chart Vital signs: As listed on the chart. Reviewed. Physical exam: Gen: A&O x3, NAD Head: Normocephalic, atraumatic Eyes: No sclera icterus, conjunctiva clear, PERRL, EOMI ENT: Moist mucous membranes, positive congestion Neck: Trachea midline, No JVD, Full ROM, No meningismus CV: RRR, no murmurs, no peripheral edema Resp: Lungs diminished in the bilateral bases, few expiratory wheezes GI: Abd soft, non-distended, non-tender, no r/r/g Musc: Full ROM, no deformity Skin: Warm, dry, no rash Neuro: Alert, oriented, grossly intact, sensation intact Psych: Cooperative, appropriate mood and affect [facility] Medical History Hypothyroidism Pancreatitis Cholecystectomy planned Implantable loop recorder present SVT (supraventricular tachycardia) History of lupus anticoagulant disorder History of asthma Insulin resistance Migraines Home Medications ?Medication ?Instructions ?Recorded ?Last Taken ?Type levothyroxine 50 mcg tablet 50 mcg PO DAILY 12/05/22 04/10/23 History (Synthroid) ascorbic acid (vitamin C) 500 mg 500 mg PO DAILY 03/05/24 Unknown History tablet aspirin 81 mg chewable tablet 81 mg PO DAILY 03/05/24 Unknown History cholecalciferol (vitamin D3) 25 25 mcg PO DAILY 03/05/24 Unknown History mcg (1,000 unit) tablet benzonatate 100 mg capsule 100 mg PO TID PRN cough 5 days #15 09/17/24 Unknown Rx caps gabapentin 100 mg capsule 100 mg PO DAILY PRN pain 09/17/24 Unknown History lisinopril 20 mg tablet 20 mg PO BID 09/17/24 Unknown History methocarbamol 500 mg tablet 500 mg PO Q6H PRN pain 09/17/24 Unknown History norethindrone acetate 5 mg tablet 5 mg PO 09/17/24 Unknown History ondansetron HCl 8 mg tablet mg PO 09/17/24 Unknown History prednisone 20 mg tablet 40 mg (2 x 20 mg) PO DAILY 5 days 09/17/24 Unknown Rx #10 tabs promethazine 50 mg tablet 50 mg PO TID 09/17/24 Unknown History Allergy/AdvReac Type Severity Reaction Status Date / Time diphenhydramine (From Allergy Mild Chest Verified 09/17/24 16:14 Benadryl) tightness prochlorperazine (From Allergy Other Verified 09/17/24 16:14 Compazine) Family History Mother Cancer Thyroid disorder Father Heart disease Early 50s Surgical History History of section History of electrophysiologic study (02/13/22) History of tonsillectomy History of cholecystectomy Social History household members: spouse Smoking Status: Never smoker alcohol intake: never substance use type: does not use caffeine: Yes Type: coffee Number of servings: 2 EXAM Physical Exam Const Vital Signs: 09/17/24 16:14 09/17/24 16:41 09/17/24 16:41 Temperature 98.4 F Temperature Source Oral Pulse Rate 96 Respiratory Rate 24 H Respiratory Effort Normal Non-Labored Normal Non-Labored Respiratory Pattern Normal Normal Blood Pressure 157/85 H Blood Pressure Mean 109 Pulse Ox 99 Oxygen Delivery Method Room Air 09/17/24 16:45 09/17/24 18:09 09/17/24 18:25 Temperature 98.4 F Temperature Source Oral Pulse Rate 91 82 105 H Respiratory Rate 18 16 Respiratory Effort Respiratory Pattern Normal Blood Pressure 140/90 H 81/65 L Blood Pressure Mean 106 70 Pulse Ox 98 Oxygen Delivery Method Room Air 09/17/24 18:43 09/17/24 19:25 09/17/24 20:29 Temperature Temperature Source Pulse Rate 93 108 H Respiratory Rate 16 16 Respiratory Effort Respiratory Pattern Blood Pressure 103/92 H 129/79 H 120/83 H Blood Pressure Mean 95 95 95 Pulse Ox 97 96 Oxygen Delivery Method Room Air Room Air 09/17/24 21:29 Temperature 97.8 F Temperature Source Pulse Rate 102 H Respiratory Rate 17 Respiratory Effort Respiratory Pattern Blood Pressure 138/80 H Blood Pressure Mean 99 Pulse Ox 98 Oxygen Delivery Method MDM MDM MDM Narrative Medical decision making narrative: 34-year-old female with past medical history of SVT with implantable loop recorder, HTN, lupus anticoagulant disorder presents for evaluation of URI type symptoms and shortness of breath. Differential diagnosis includes but is not limited to viral illness, pneumonia, electrolyte abnormality, pleurisy. Less likely ACS. Patient does have a risk factor for PE with her lupus anticoagulant disorder however no history of DVT or PE. Patient is not hypoxic or tachycardic. Will start with D-dimer. Breathing treatments ordered for symptoms. Patient declined RSV, flu, influenza testing as she states she got it done earlier and was negative. EKG and chest x-ray reviewed, see below. CBC without leukocytosis or anemia. D-dimer unremarkable. BMP unremarkable. Troponin unremarkable. Serum negative. On reexamination, patient endorsing worsening right-sided pain. Again endorses sharpness. She is now tachycardic. She is moving more air with the breathing treatments and wheezing has resolved. I suspect her tachycardia is likely secondary to her pain however with her worsening chest pain and her known blood clotting disorder will get CTA to rule out PE or occult pneumonia. Tylenol and NS bolus ordered. CTA chest negative for PE or pneumonia. On reexamination, patient's pain has improved but is still present. At this point in time no clear etiology for patient's pain. Patient was educated on Motrin and Tylenol as needed for pain. Follow-up with PCP. Return precautions explained. Will give patient prescription for prednisone for mild asthma exacerbation from viral illness. She confirmed understanding the plan. Tessalon Perle prescription given as well for cough. EKG: Interpreted by me/EM physician: EKG shows normal sinus rhythm with PVCs. Heart rate 82. No acute ischemic changes. Diagnostic: Interpreted by me/EM physician: Chest x-ray without pneumonia, effusion, cardiomegaly, pneumothorax Impression: 1. Viral illness 2. Right-sided chest pain 3. Mild asthma exacerbation Lab Data Labs: Laboratory Results - last 24 hr 09/17/24 16:33 WBC 10.0 RBC 5.15 Hgb 12.7 Hct 40.0 MCV 77.7 L MCH 24.7 L MCHC 31.8 L RDW Std Deviation 44.8 H RDW Coeff of Remigio 15.8 H Plt Count 172 MPV 12.1 H Immature Gran % (Auto) 0.400 Neut % (Auto) 62.5 Lymph % (Auto) 28.0 [place] % (Auto) 6.1 Eos % (Auto) 2.7 Baso % (Auto) 0.3 Absolute Neuts (auto) 6.2 Absolute Lymphs (auto) 2.79 Nucleated RBC % 0 D-Dimer Quant (PE/DVT) 0.33 Sodium 139 Potassium 3.5 Chloride 106 Carbon Dioxide 26.0 Anion Gap 6 BUN 15 Creatinine 0.83 Estim Creat Clear Calc 150.43 Est GFR (MDRD) Af Amer 101 Est GFR (MDRD) Non-Af 84 BUN/Creatinine Ratio 18.1 Glucose 101 Calcium 8.6 Troponin I High Sens 6 Serum , Qual NEGATIVE Radiography Diagnostic Testing: Clinical Impression(s) from Imaging Studies Chest X-Ray 09/17/24 18:25 IMPRESSION: No acute radiographic abnormalities. Electronically Signed: Anselmo Diaz MD at 19:08 EST , Chest CTA 09/17/24 19:34 IMPRESSION: No acute findings in the visualized arteries of the chest. Electronically Signed: Jonathan Kay DO at 20:58 EST , Discharge Plan Triage Chief Complaint: Chest Other ED Provider: Steve Oliveira Dx/Rx/DC Orders Clinical Impression: Viral syndrome, Right-sided chest pain Instructions: ED Chest Pain, Uncertain Cause, ED Viral Syndrome (Adult) Prescriptions: New prednisone 20 mg tablet 40 mg PO DAILY 5 Days Qty: 10 0RF benzonatate 100 mg capsule 100 mg PO TID PRN (Reason: cough) 5 Days Qty: 15 0RF No Action aspirin 81 mg tablet,chewable 81 mg PO DAILY levothyroxine [Synthroid] 50 mcg tablet 50 mcg PO DAILY ascorbic acid (vitamin C) 500 mg tablet 500 mg PO DAILY cholecalciferol (vitamin D3) 25 mcg (1,000 unit) tablet 25 mcg PO DAILY gabapentin 100 mg capsule 100 mg PO DAILY PRN (Reason: pain) methocarbamol 500 mg tablet 500 mg PO Q6H PRN (Reason: pain) norethindrone acetate 5 mg tablet 5 mg PO Rx Instructions: orally; 1 tablet 3x day until bleeding stops. 1 tablet 2x a day for 2day 1 tablet daily for 5 days promethazine 50 mg tablet 50 mg PO TID ondansetron HCl 8 mg tablet PO lisinopril 20 mg tablet 20 mg PO BID Primary Care Provider: Care Physician,No Primary Referrals: Dima Sheets MD [Med Staff - Active Staff] - 3-5 Days Care Physician,No Primary [Primary Care Provider] - Activity Restrictions/Additional Instructions: Follow-up with your primary care physician. Motrin and Tylenol as needed for pain. Return back to the ED if symptoms change or worsen. Print Language: Burundian Disposition Disposition: Home, Self Care Discharge Date/Time: 09/17/24 21:32
[2024-09-17 17:33] LABS: D-Dimer Quantitative (DVT/PE) 0.33 FEU/ug/m (0.27-0.49)
[2024-09-17 17:39] LABS: Internal QC Validated? YES +Cl - CLEAR BKGD; Pregnancy, Serum, hCG Quali. NEGATIVE Negative
[2024-09-17 17:42] LABS: Anion Gap 6 (5-15); BUN 15 mg/dL (7-18); BUN/Creat Ratio 18.1 RATIO (10-20); Calcium,Total 8.6 mg/dL (8.5-10.1); Chloride 106 mmol/L (98-107); Creatinine, Serum 0.83 mg/dL (0.55-1.02); EST Glomerular Filtration Rate 84 mL/min (>60); Est Glom Filt Rate - Afr Amer 101 mL/min (>60); Estimated Creatinine Clearance 150.43 ml/min; Glucose 101 mg/dL (74-106); Potassium 3.5 mmol/L (3.5-5.1); Sodium Level 139 mmol/L (136-145); Troponin-I HS 6 pg/mL (3.0-54.0)
[2024-09-17] MEDS: Ipratropium/Albuterol Sulfate 3 ML AMPUL.NEB INHALATION (18:06)
[2024-09-17] MEDS: Albuterol 2.5 MG/3 ML VIAL.NEB. INHALATION (18:06)
--- NOTE | 2024-09-17 18:25 | RAD_ITS ---
INDICATION: Cough EXAMINATION/TECHNIQUE: X-RAY - XR Chest 2 Views COMPARISON: None. FINDINGS: The lungs are clear. The cardiomediastinal silhouette is unremarkable. No pleural effusion or pneumothorax. No acute osseous abnormalities. RAD/Chest PA and Lateral IMPRESSION: No acute radiographic abnormalities. Electronically Signed: Anselmo Diaz MD at 19:08 EST ,
--- NOTE | 2024-09-17 19:34 | CT_ITS ---
EXAM: CT ANGIOGRAPHY CHEST WITHOUT AND WITH INTRAVENOUS CONTRAST CLINICAL INDICATION: Assess for PE TECHNIQUE: Helically acquired angiography images were obtained of the chest without and with intravenous contrast. This CT exam was performed using one or more of the following dose reduction techniques: automated exposure control, adjustment of the mA and/or kV according to patient size, and/or use of iterative reconstruction technique. MIP reconstructed images were created and reviewed. CONTRAST: IV 100mL [id number] COMPARISON: Chest radiograph, 09/17/2024 FINDINGS: PULMONARY ARTERIES: No significant abnormality. Normal in caliber. No evidence of pulmonary embolism. AORTA: No significant abnormality. Normal in caliber. No evidence of dissection. GREAT VESSELS OF AORTIC ARCH: No significant abnormality. Normal in caliber. No evidence of dissection. LUNGS AND PLEURAL SPACES: No significant abnormality. No mass. No consolidation or edema. No pleural effusion or thickening. No pneumothorax. HEART: No significant abnormality. Heart size is normal. No pericardial effusion. No significant coronary artery calcifications. MEDIASTINUM: No significant abnormality. No mediastinal or hilar adenopathy. Esophagus is unremarkable. No hiatal hernia. THYROID: No significant abnormality. No thyroid lesions. BONES/JOINTS: Degenerative changes of the axial and appendicular skeletal structures. No suspicious lytic or blastic abnormality. GALLBLADDER AND BILE DUCTS: Status post cholecystectomy. CT/CTA Chest W/WO Contrast IMPRESSION: No acute findings in the visualized arteries of the chest. Electronically Signed: Jonathan Kay DO at 20:58 EST ,
[2024-09-17] MEDS: Acetaminophen 500 MG Tablet 1000 MG PO (20:27)
[2024-09-17] MEDS: 0.9% Normal Saline (1000mL) 1,000 ML 1000 ML IV (20:28)
--- NOTE | 2024-09-17 20:34 | CM.ED ---
Social Work Reason for visit: No PCP SW entered room, introduced self to patient, explained role in hospital and reason for visit. Patient stated that she does have a PCP that she has gone to for years, that for some reason does not show up when entered in [facility] system. No further needs identified at this time. Zaira Edmondson, [employer], [employer]
== END 2024-09-17 21:32 | disposition home or self-care (01) ==
PROVIDERS: Emergency Provider Surgery; Visit Provider Surgery
DX: B34.9 Viral infection, unspecified (principal); R07.89 Other chest pain; J45.901 Unspecified asthma with (acute) exacerbation; D68.62 Lupus anticoagulant syndrome; I10 Essential (primary) hypertension; Z79.82 Long term (current) use of aspirin; Z79.899 Other long term (current) drug therapy
CPT/HCPCS: 71046; 71275; 80048; 84484; 84703; 85025; 85379; 93005; 94640; 96360; 99285; Q9967; A4216

== ENCOUNTER → 2024-11-18 | Outpatient (CLI) | payer OTHER, SELFPAY ==
[2024-11-18 10:55] LABS: Absolute Lymphocyte Count 2.12 X10^3/uL (0.83-4.51); Absolute Neutrophil Count 5.9 X10^3/uL (2.0-7.7); Basophil# 0.03 X10^3/uL; Basophil% 0.3 % (0-1); Eosinophils% 2.3 % (0-5); Hemoglobin 13.4 g/dL (12.0-15.0); Lymphocyte # 2.12 X10^3/ul (0.83-4.51); Lymphocyte % 23.9 % (19-41); Mean Corp Hgb Conc 31.9 g/dL (32-36); Mean Corpuscular Hgb 24.9 pg (27.0-32.0); Mean Corpuscular Volume 77.9 fL (81-99); Mean Platelet Vol. 11.8 fl (6.2-12.0); Monocyte# 0.58 X10^3/uL; Monocyte% 6.5 % (0-10); NRBC Flagged by Analyzer 0 % (0-5); Neutrophil # 5.91 X10^3/uL (2.7-7.7); Neutrophil % 66.5 % (47-70); Platelet Count 208 K/mm3 (150-450); RBC Distribution Width CV 15.2 % (11.6-14.6); RBC Distribution Width SD 42.6 fl (35.1-43.9); Red Blood Count 5.39 M/mm3 (4.2-5.4); White Blood Count 8.9 K/mm3 (4.4-11.0)
[2024-11-18 12:02] LABS: Anion Gap 12 (5-15); BUN 10 mg/dL (4-19); BUN/Creat Ratio 15.7 RATIO (10-20); Calcium,Total 8.7 mg/dL (7.6-11.0); Chloride 103 mmol/L (98-108); Creatinine, Serum 0.64 mg/dL (0.70-1.20); EST Glomerular Filtration Rate 119 (>60); Glucose 99 mg/dL (70-99); Potassium 4.1 mmol/L (3.3-5.1); Sodium Level 137 mmol/L (133-145)
== END | disposition home or self-care (01) ==
LOC: LAB 10:41
PROVIDERS: Referring Provider Physician Assistant Medical; Visit Provider Physician Assistant Medical
DX: I47.10 Supraventricular tachycardia, unspecified (principal)
CPT/HCPCS: 36415; 80048; 83735; 84443; 85025

== ENCOUNTER 2024-12-03 20:21 | Emergency (ER) | payer OTHER, SELFPAY ==
[2024-12-03 20:22] VITALS: BP 142/78; PULSE 94; RESP 19; TEMP 36.7; O2SAT 95; BMI 53.9
--- NOTE | 2024-12-03 20:53 | EKG12_ITS ---
Test Reason : DYSRHYTHMIA Blood Pressure : */* mmHG Vent. Rate : 104 BPM Atrial Rate : 104 BPM P-R Int : 168 ms QRS Dur : 82 ms QT Int : 364 ms P-R-T Axes : 50 20 36 degrees QTcB Int : 478 ms Sinus tachycardia Nonspecific T wave abnormality Abnormal ECG Confirmed by JARRELL GALEANO, ALLI ([id number]), associate editor AMBIKA TELLO ([id number]) on 12/04/2024 8:07:24 AM Referred By: TB Confirmed By: ALLI VIEYRA MD
--- NOTE | 2024-12-03 20:54 | EDS_ITS ---
HPI History of Present Illness Chief Complaint: Syncope [facility] Medical History Hypothyroidism Pancreatitis Cholecystectomy planned Implantable loop recorder present SVT (supraventricular tachycardia) History of lupus anticoagulant disorder History of asthma Insulin resistance Migraines Home Medications ?Medication ?Instructions ?Recorded ?Last Taken ?Type levothyroxine 50 mcg tablet 50 mcg PO DAILY 12/05/22 0 04/10/23 History (Synthroid) ascorbic acid (vitamin C) 500 mg 500 mg PO DAILY 03/05 Unknown History tablet aspirin 81 mg chewable tablet 81 mg PO DAILY 03/05/24 Unknown History cholecalciferol (vitamin D3) 25 25 mcg PO DAILY Unknown History mcg (1,000 unit) tablet gabapentin 100 mg capsule 100 mg PO DAILY PRN pain 05/04 Unknown History lisinopril 20 mg tablet 20 mg PO BID 09/17/24 Unknow n History methocarbamol 500 mg tablet 500 mg PO Q6H PRN pain 05/04 Unknown History ondansetron HCl 8 mg tablet mg PO 09/17/24 Unknown His tory albuterol sulfate 90 mcg/actuation 1 inh inhalation ON CE PRN 11/18/24 Unknown History aerosol inhaler amlodipine 5 mg tablet (Norvasc) 5 mg PO QDAY #90 tabs 11/18/24 Unknown Rx metoprolol tartrate 25 mg tablet 25 mg PO BID #180 tab s 11/18/24 Unknown Rx Allergy/AdvReac Type Severity Reaction Status Date / Time diphenhydramine (From Allergy Mild Chest Verified 11/18/24 09:59 Benadryl) tightness prochlorperazine (From Allergy Other Verified 11/18/24 09:59 Compazine) Family History Mother Cancer Thyroid disorder Father Heart disease Early 50s Surgical History History of section History of electrophysiologic study (02/13/22) History of tonsillectomy History of cholecystectomy Social History household members: spouse Smoking Status: Never smoker alcohol intake: never substance use type: does not use caffeine: Yes Type: coffee Number of servings: 2 EXAM Physical Exam Const Vital Signs: 12/03/24 20:22 12/03/24 20:28 12/03/24 20:53 Temperature 98.1 F Temperature Source Oral Pulse Rate 94 Respiratory Rate 19 H Respiratory Effort Normal Respiratory Pattern Normal Blood Pressure 142/78 H Blood Pressure Mean 99 Pulse Ox 95 Oxygen Delivery Method Room Air Room Air 12/03/24 22:21 Temperature Temperature Source Pulse Rate 103 H Respiratory Rate 21 H Respiratory Effort Respiratory Pattern Blood Pressure 155/83 H Blood Pressure Mean 107 Pulse Ox 96 Oxygen Delivery Method Room Air [facility] [place] Narrative Medical decision making narrative: HISTORY OF PRESENT ILLNESS: 34-year-old female presents concern for syncope x 2. Per EMS patient was in SVT en route which aborted after vagal maneuvers. The patient states this occurred approximately 4 hours prior to arrival. She states she felt her heart racing and chest tightness and then lost consciousness. She denies any recent vomiting, diarrhea. Denies recent bleeding diathesis. Denies shortness of breath, cough fever chills. Denies leg swelling. The patient denies recent surgery in the last 4 weeks or immobilization in the last 3 days, denies previous diagnosis of DVT or PE, hemoptysis, unilateral leg swelling or malignancy with treatment the last 6 months or palliative. No estrogen use noted. REVIEW OF SYSTEMS: Pertinent positives: Palpitations, chest tightness Pertinent negatives: As per HPI PHYSICAL EXAM: Nursing triage notes reviewed, Vital signs reviewed Constitutional: please see [place] HENT: MMM Eyes: Pupils equal round and reactive to light, Extraocular muscles intact Neck: No stridor, no JVD, full neck ROM Lungs: Clear to auscultation, No wheezing or rales. No increased work of breathing, no conversational dyspnea, no accessory muscle use, no nasal flaring. No respiratory distress noted Heart: Regular rate and rhythm, No murmurs, No rubs and No gallops, 2+ distal pulses (radial, femoral, posterior tibial) in all extremities Abdomen: Soft, there is no tenderness, rigidity, rebound or guarding, no obvious peritoneal signs, no palpable pulsatile abdominal masses, no auscultated abdominal bruit : No CVAT Extremities: No edema Neuro: No new focal neurological deficits, cranial nerves II through XII intact, 5/5 strength in all present extremities. Intact sensation to light touch in all present extremities, 2+ reflexes bilateral patella tendons. Skin: No rash or lesions noted MEDICAL DECISION MAKING: Chief Complaint: syncope External records reviewed: Reviewed prior cardiovascular testing Factors affecting care: Syncope, hypertension, obesity, [place], palpitations, SVT Social determinants of health: Denies cocaine or methamphetamine abuse History obtained from others: Consults: none MDM Narrative: The patient was initially hemodynamically stable, afebrile and nontoxic- appearing. Exam without focal cardiopulmonary abnormality I considered the following differential diagnosis: Arrhythmia, anemia, electrolyte disturbance, PE, pneumothorax ALL IMAGES (IF OBTAINED) HAVE BEEN PERSONALLY REVIEWED AND INTERPRETED BY MYSELF. EKG with sinus tachycardia rate of 104, normal axis, normal intervals, no obvious STEMI, no sign of WPW, ARVD, Brugada syndrome, no stigmata of VTE or pericarditis noted CBC with mild (likely reactive), no anemia, no thrombocytopenia BMP without evidence of significant electrolyte abnormalities, no anion gap, no acute kidney injury. High-sensitivity troponin is negative, no evidence of myocardial ischemia I have personally reviewed the patient's chest x-ray. Chest x-ray is unremarkable for pulmonary edema, pneumothorax, pneumonia or focal cardiopulmonary abnormality. Upon reassessment patient remained hemodynamically stable. She had no s ignificant events while in the ED on phototypesetting equipment monitor otherwise. She likely suffered from a syncopal event from SVT. No indication for admission at this time. No suspicion for myocardial schema as precipitating cause given lack of chest pain negative high-sensitivity troponin. Encouraged outpatient follow-up. Strict return precautions were discussed. The patient and/or family, caregivers express understanding. The patient and/or family, caregivers agrees with the plan. Shared decision making: I will have a discussion with the patient and or visitors regarding risk/benefits of further testing or admission. They will be made aware of of the risk/benefits inherent in this decision they will be given the opportunity to voice understanding. Total critical care time today provided was at least 0 minutes. This excludes separately billable procedures. Critical care time (if documented) is secondary to the patient having high probability of clinically significant/life threatening deterioration in the patient's condition which required my urgent intervention. Impression: 1. SVT 2. Syncope Dispo: Discharge home This note was generated with Convioation software. It may contain incorrect words, spelling, and punctuation that were not noted in review of the chart prior to signing. Lab Data Labs: Laboratory Results - last 24 hr 12/03/24 20:38 WBC 11.4 H RBC 5.13 Hgb 13.0 Hct 40.0 MCV 78.0 L MCH 25.3 L MCHC 32.5 RDW Std Deviation 43.2 RDW Coeff of Remigio 15.2 H Plt Count 230 MPV 11.8 Immature Gran % (Auto) 0.300 Neut % (Auto) 64.4 Lymph % (Auto) 25.9 [place] % (Auto) 6.9 Eos % (Auto) 2.1 Baso % (Auto) 0.4 Absolute Neuts (auto) 7.3 Absolute Lymphs (auto) 2.94 Nucleated RBC % 0.2 Sodium 138 Potassium 4.2 Chloride 103 Carbon Dioxide 23.7 Anion Gap 12 BUN 12 Creatinine 0.73 Estim Creat Clear Calc 172.07 Est GFR (MDRD) Non-Af 112 BUN/Creatinine Ratio 17.1 Glucose 98 Calcium 9.0 Troponin T High Sens < 6 Radiography Diagnostic Testing: Clinical Impression(s) from Imaging Studies Chest X-Ray 12/03/24 21:03 IMPRESSION: No Acute Findings. Reading Location: [facility] Discharge Plan Triage Chief Complaint: Syncope ED Provider: Silvano Perez Dx/Rx/DC Orders Prescriptions: No Action aspirin 81 mg tablet,chewable 81 mg PO DAILY levothyroxine [Synthroid] 50 mcg tablet 50 mcg PO DAILY ascorbic acid (vitamin C) 500 mg tablet 500 mg PO DAILY cholecalciferol (vitamin D3) 25 mcg (1,000 unit) tablet 25 mcg PO DAILY albuterol sulfate 90 mcg/actuation HFA aerosol inhaler 1 inh inhalation ONCE PRN metoprolol tartrate 25 mg tablet 25 mg PO BID Qty: 180 3RF amlodipine [Norvasc] 5 mg tablet 5 mg PO QDAY Qty: 90 3RF gabapentin 100 mg capsule 100 mg PO DAILY PRN (Reason: pain) methocarbamol 500 mg tablet 500 mg PO Q6H PRN (Reason: pain) ondansetron HCl 8 mg tablet PO lisinopril 20 mg tablet 20 mg PO BID Primary Care Provider: Mega Weeks I Referrals: [facility] Doctor,Out of [Non-Staff] - Print Language: Swedish
[2024-12-03] MEDS: 0.9% Normal Saline (1000mL) 1,000 ML 999 ML IV (20:59)
--- NOTE | 2024-12-03 21:03 | RAD_ITS ---
PROCEDURE: CHEST 1 VIEW (PORTABLE) 12/03/2024 REASON FOR EXAM: 34-year-old female, chest pain, syncope, SVT. TECHNIQUE: Frontal view of the chest. COMPARISON: CTA chest 09/17/2024. FINDINGS: Hardware: None. Heart: The heart size is normal. Lungs: No focal consolidation, pleural effusion or pneumothorax. Bones: The bones are unremarkable. RAD/Chest 1 View (Portable) IMPRESSION: No Acute Findings. Reading Location: [id number]
[2024-12-03 21:14] LABS: Absolute Lymphocyte Count 2.94 X10^3/uL (0.83-4.51); Absolute Neutrophil Count 7.3 X10^3/uL (2.0-7.7); Basophil# 0.04 X10^3/uL; Basophil% 0.4 % (0-1); Eosinophil# 0.24 X10^3/uL; Eosinophils% 2.1 % (0-5); Lymphocyte # 2.94 X10^3/ul (0.83-4.51); Lymphocyte % 25.9 % (19-41); Mean Corp Hgb Conc 32.5 g/dL (32-36); Mean Corpuscular Hgb 25.3 pg (27.0-32.0); Mean Platelet Vol. 11.8 fl (6.2-12.0); Monocyte# 0.78 X10^3/uL; Monocyte% 6.9 % (0-10); NRBC Flagged by Analyzer 0.2 % (0-5); Neutrophil # 7.34 X10^3/uL (2.7-7.7); Neutrophil % 64.4 % (47-70); Platelet Count 230 K/mm3 (150-450); RBC Distribution Width CV 15.2 % (11.6-14.6); RBC Distribution Width SD 43.2 fl (35.1-43.9); Red Blood Count 5.13 M/mm3 (4.2-5.4); White Blood Count 11.4 K/mm3 (4.4-11.0)
[2024-12-03 22:05] LABS: Troponin T High Sensitivity < 6 ng/L (<=14)
[2024-12-03 22:21] VITALS: BP 155/83; PULSE 103; RESP 21; O2SAT 96
[2024-12-03 22:26] LABS: Anion Gap 12 (5-15); BUN 12 mg/dL (4-19); BUN/Creat Ratio 17.1 RATIO (10-20); Carbon Dioxide 23.7 mmol/L (21.0-32.0); Chloride 103 mmol/L (98-108); Creatinine, Serum 0.73 mg/dL (0.70-1.20); EST Glomerular Filtration Rate 112 (>60); Estimated Creatinine Clearance 172.07 ml/min (50-250); Glucose 98 mg/dL (70-99); Potassium 4.2 mmol/L (3.3-5.1); Sodium Level 138 mmol/L (133-145)
[2024-12-03 23:19] VITALS: BP 154/86; PULSE 103; RESP 21; TEMP 36.6; O2SAT 97
--- NOTE | 2024-12-03 23:40 | ED.RN ---
PT PROVIDED EDUCATIONAL HANDOUT RE: VAGAL MANEUVERS. SPOUSE AND PT REQUESTED ADDITIONAL INFORMATION RE: WHEN TO BE CONCERNED ABOUT SYNCOPAL EPISODES AND SVT. ENC PT TO CONSULT WITH CARDIOLOGY (HAS APPT 12/16) FOR ADDITIONAL INFORMATION.
== END 2024-12-03 23:43 | disposition home or self-care (01) ==
PROVIDERS: Emergency Provider Emergency Medicine; PCP Specialist; Visit Provider Emergency Medicine
DX: I47.10 Supraventricular tachycardia, unspecified (principal); R55 Syncope and collapse; I10 Essential (primary) hypertension; Z79.82 Long term (current) use of aspirin; Z79.899 Other long term (current) drug therapy
CPT/HCPCS: 71045; 80048; 84484; 85025; 93005; 96360; 96361; 99285; A4216

== ENCOUNTER 2025-01-11 13:54 | Inpatient (IN) | payer OTHER, SELFPAY ==
[2025-01-11] VITALS (14 sets, daily range): BP systolic 110–184; BP diastolic 69–111; PULSE 66–126; RESP 13–26; TEMP 36.5–36.8; O2SAT 94–100; BMI 52.6; BMI 52.4
--- NOTE | 2025-01-11 13:59 | EKG12_ITS ---
Test Reason : PALPITATIONS Blood Pressure : */* mmHG Vent. Rate : 93 BPM Atrial Rate : 93 BPM P-R Int : 180 ms QRS Dur : 86 ms QT Int : 356 ms P-R-T Axes : 49 15 84 degrees QTcB Int : 442 ms Normal sinus rhythm Nonspecific T wave abnormality Abnormal ECG Confirmed by Pj Sanchez ([id number]), proposal editor RODY HENDRICKS ([id number]) on 01/16/2025 11:57:44 AM Referred By: Confirmed By: Pj Sanchez
[2025-01-11] MEDS: 0.9% Normal Saline (1000mL) 1,000 ML 999 ML IV (14:05)
[2025-01-11] MEDS: Magnesium Sulfate 2 GM in Dextrose 5%-Water (100mL Bag) 100 ML IV (14:06)
[2025-01-11] MEDS: Calcium Gluconate 1 GM/10 ML Vial IVP (14:08)
--- NOTE | 2025-01-11 14:10 | ED.VIS.CHEST ---
HPI History of Present Illness Chief Complaint: Palpitations [facility] Medical History Hypothyroidism Pancreatitis Cholecystectomy planned Implantable loop recorder present SVT (supraventricular tachycardia) History of lupus anticoagulant disorder History of asthma Insulin resistance Migraines Home Medications ?Medication ?Instructions ?Recorded ?Last Taken ?Type levothyroxine 50 mcg tablet 50 mcg PO DAILY 12/05/22 04/10/23 History (Synthroid) ascorbic acid (vitamin C) 500 mg 500 mg PO DAILY 03/05/24 Unknown History tablet aspirin 81 mg chewable tablet 81 mg PO DAILY 03/05/24 Unknown History cholecalciferol (vitamin D3) 25 25 mcg PO DAILY 03/05/24 Unknown History mcg (1,000 unit) tablet gabapentin 100 mg capsule 100 mg PO DAILY PRN pain 09/17/24 Unknown History lisinopril 20 mg tablet 20 mg PO BID 09/17/24 Unknown History ondansetron HCl 8 mg tablet 8 mg PO Q12H PRN nausea and 09/17/24 Unknown History vomiting albuterol sulfate 90 mcg/actuation 1 inh inhalation ONCE PRN 11/18/24 Unknown History aerosol inhaler shortness of breath or wheezing amlodipine 5 mg tablet (Norvasc) 5 mg PO QDAY #90 tabs 11/18/24 Unknown Rx metoprolol tartrate 25 mg tablet 25 mg PO BID #180 tabs 11/18/24 Unknown Rx Allergy/AdvReac Type Severity Reaction Status Date / Time diphenhydramine (From Allergy Mild Chest Verified 01/11/25 13:55 Benadryl) tightness prochlorperazine (From Allergy Other Verified 01/11/25 13:55 Compazine) Family History Mother Cancer Thyroid disorder Father Heart disease Early 50s Surgical History History of section History of electrophysiologic study (02/13/22) History of tonsillectomy History of cholecystectomy Social History household members: spouse Smoking Status: Never smoker alcohol intake: never substance use type: does not use caffeine: Yes Type: coffee Number of servings: 2 EXAM Physical Exam Const Vital Signs: 01/11/25 13:55 01/11/25 14:04 Temperature 98.2 F Temperature Source Oral Pulse Rate 126 H 119 H Respiratory Rate 26 H 22 H Blood Pressure 184/98 H 160/69 H Blood Pressure Mean 126 99 Pulse Ox 99 100 Oxygen Delivery Method Room Air Room Air [facility] Narrative Medical decision making narrative: HISTORY OF PRESENT ILLNESS: Chief complaint: Palpitations 34-year-old female history of SVT, ventricular tachycardia, obesity, hypothyroidism, hypertension presents with acute onset of chest pain and palpitation occurred prior to arrival. No syncope. No bleeding diathesis noted. No recent illnesses. The patient denies recent surgery in the last 4 weeks or immobilization in the last 3 days, denies previous diagnosis of DVT or PE, hemoptysis, unilateral leg swelling or malignancy with treatment the last 6 months or palliative. No estrogen use noted. Patient denies sudden onset of pain, no tearing sensation, no migratory symptoms, no new numbness, weakness or loss of sensation. Patient denies family history or personal history of Connective tissue disorders (Marfan's Syndrome, Lorne Danlos etc). REVIEW OF SYSTEMS: Pertinent positives: Chest pain, palpitation Pertinent negatives: As per HPI PHYSICAL EXAM: Nursing triage notes reviewed, Vital signs reviewed Constitutional: please see [facility] HENT: MMM Eyes: Pupils equal round and reactive to light, Extraocular muscles intact Neck: No stridor, no JVD, full neck ROM Lungs: Clear to auscultation, No wheezing or rales. No increased work of breathing, no conversational dyspnea, no accessory muscle use, no nasal flaring. No respiratory distress noted Heart: Regular rate and rhythm, No murmurs, No rubs and No gallops, 2+ distal pulses (radial, femoral, posterior tibial) in all extremities Abdomen: Soft, there is no tenderness, rigidity, rebound or guarding, no obvious peritoneal signs, no palpable pulsatile abdominal masses, no auscultated abdominal bruit : No CVAT Extremities: No edema Neuro: No new focal neurological deficits, cranial nerves II through XII intact, 5/5 strength in all present extremities. Intact sensation to light touch in all present extremities, 2+ reflexes bilateral patella tendons. Skin: No rash or lesions noted MEDICAL DECISION MAKING: Chief Complaint: please see [facility] External records reviewed: Reviewed prior cardiovascular studies Factors affecting care: As per HPI Social determinants of health: denies drug use History obtained from others: none Consults: 1. Cardiology (Dr. Rios)?discussed initial management for NSVT, chest pain. Dr. Headley recommended electrolyte replacement and starting amiodarone drip and admit to the ICU for further evaluation. 2. Internal medicine (Dr. Damon) -discussed admitting to the PCU. Discussed the patient's prior evaluations. Discussed the cardiology recommendation to admit to ICU. I am physician note he was comfortable with her in PCU. MDM Narrative: Patient was initially hypertensive with blood pressure 184/98, tachycardic with a heart rate of 126 and tachypneic with a respiratory of 26. Saturating 99% on room air. Cardiopulmonary exam was limited by body habitus however there is no obvious focal rales, wheezes. Heart rate was fast but regular. On exam there is no stigmata of VTE or CHF initially. I considered the following differential diagnosis: Arrhythmia, anemia, electro disturbance, thyroid dysfunction, PE, aortic dissection, ACS I obtained a broad lab and imaging workup to further elucidate etiology of the patient's complaints Initial EKG was concerning for frequent runs of non-sustained ventricular tachycardia. At this point in time 2 large-bore IVs were placed. telemetry monitor applied. Pacer pads applied. Patient was treated empiric calcium and magnesium. She is given IV fluids. I consulted cardiology immediately spoke with Dr. Rios who recommended amiodarone drip and ICU admission. ALL IMAGES (IF OBTAINED) HAVE BEEN PERSONALLY REVIEWED AND INTERPRETED BY MYSELF. I have personally reviewed the patient's chest x-ray. Chest x-ray is unremarkable for pulmonary edema, pneumothorax, pneumonia or focal cardiopulmonary abnormality. High-sensitivity troponin is negative, no evidence of myocardial ischemia TSH, free T3, free T4 negative making thyroid dysfunction less likely Repeat EKG after about 10 to 15 minutes after initial intervention showed normal sinus rhythm with no obvious ischemic changes, normal intervals, normal axis, no sign of WPW, Brugada or ARVD. Will admit the patient to PCU for further rate monitoring, possible intervention and additional testing as deemed necessary by internal medicine and cardiology. The patient and/or family, caregivers express understanding. The patient and/or family, caregivers agrees with the plan. Shared decision making: I will have a discussion with the patient and or visitors regarding risk/benefits of further testing or admission. They will be made aware of of the risk/benefits inherent in this decision they will be given the opportunity to voice understanding. Total critical care time today provided was at least 60 minutes. This excludes separately billable procedures. Critical care time (if documented) is secondary to the patient having high probability of clinically significant/life threatening deterioration in the patient's condition which required my urgent intervention. Impression: 1. Palpitations 2. Nonsustained ventricular tachycardia 3. History of SVT Dispo: Admit to PCU This note was generated with [employer] dictation software. It may contain incorrect words, spelling, and punctuation that were not noted in review of the chart prior to signing. Discharge Plan Triage Chief Complaint: Palpitations ED Provider: Silvano Perez Dx/Rx/DC Orders Primary Care Provider: Mega Weeks I
--- NOTE | 2025-01-11 14:15 | EKG12_ITS ---
Test Reason : HIGH HR Blood Pressure : */* mmHG Vent. Rate : 154 BPM Atrial Rate : 131 BPM P-R Int : 152 ms QRS Dur : 80 ms QT Int : 304 ms P-R-T Axes : 69 16 73 degrees QTcB Int : 486 ms Critical Test Result: High HR , Arrhythmia Sinus tachycardia with frequent and consecutive Premature ventricular complexes Abnormal ECG non sustained recurrent vtach Confirmed by Pj Sanchez ([id number]), copy editor RODY HENDRICKS ([id number]) on 01/16/2025 11:58:11 AM Referred By: Confirmed By: Pj Sanchez
[2025-01-11 14:18] LABS: Absolute Lymphocyte Count 3.05 X10^3/uL (0.83-4.51); Basophil# 0.05 X10^3/uL; Basophil% 0.4 % (0-1); Eosinophil# 0.27 X10^3/uL; Eosinophils% 2.1 % (0-5); Hematocrit 41.2 % (37-47); Hemoglobin 13.5 g/dL (12.0-15.0); Lymphocyte # 3.05 X10^3/ul (0.83-4.51); Lymphocyte % 23.2 % (19-41); Mean Corp Hgb Conc 32.8 g/dL (32-36); Mean Corpuscular Hgb 25.5 pg (27.0-32.0); Mean Corpuscular Volume 77.7 fL (81-99); Mean Platelet Vol. 11.2 fl (6.2-12.0); Monocyte# 0.72 X10^3/uL; Monocyte% 5.5 % (0-10); NRBC Flagged by Analyzer 0 % (0-5); Neutrophil # 8.99 X10^3/uL (2.7-7.7); Neutrophil % 68.5 % (47-70); Platelet Count 262 K/mm3 (150-450); RBC Distribution Width CV 15.4 % (11.6-14.6); RBC Distribution Width SD 43.7 fl (35.1-43.9); White Blood Count 13.1 K/mm3 (4.4-11.0)
[2025-01-11] MEDS: Amiodarone 360 MG in Dextrose 5% Viaflo Bag 192.8 ML 33.3 MG CONT INF (14:27)
[2025-01-11] MEDS: Ondansetron 4 MG/2 ML Vial IV (14:28)
--- NOTE | 2025-01-11 14:30 | CM.ED ---
Social Work Date of referral: 01/11/25 Reason for referral: Support Referred by: ED nurse Support from social media analyst was requested due to medical emergency with patient. Patient's baby needed someone to hold him and take care of him outside of patient's room until patient's was able to arrive. balancing machine set up worker sat in the hallway on a chair with child and consoled him and provide all necessary supervision. Brenda Campos, HR CONSULTANT, COMMUNICATION INSTRUCTOR
[2025-01-11 14:43] LABS: Troponin T High Sensitivity < 6 ng/L (<=14)
[2025-01-11 14:55] LABS: ALB/GLOB Ratio 1.1 RATIO (0.9-2.4); AST(SGOT) 25 U/L (<=31); Alanine Aminotransfer ALT/SGPT 25 U/L (<=34); Alkaline Phosphatase 114 U/L (35-104); Anion Gap 13 (5-15); BUN 13 mg/dL (4-19); BUN/Creat Ratio 16.6 RATIO (10-20); Calcium,Total 8.9 mg/dL (7.6-11.0); Carbon Dioxide 21.6 mmol/L (21.0-32.0); Chloride 103 mmol/L (98-108); Creatinine, Serum 0.76 mg/dL (0.70-1.20); EST Glomerular Filtration Rate 107 (>60); Estimated Creatinine Clearance 162.75 ml/min (50-250); Globulin 3.7 g/dL (2.2-4.2); Glucose 155 mg/dL (70-99); Potassium 3.6 mmol/L (3.3-5.1); Protein, Total 7.7 g/dL (5.9-8.4); Sodium Level 137 mmol/L (133-145); Total Bilirubin 0.31 mg/dL (0.00-1.30)
--- NOTE | 2025-01-11 15:00 | CM.ED ---
Social Work: Social went back to visit with patient to see how she is doing and see if she or her family needed anything. Patient appeared to be very weak, was soft spoken and stated her and baby just left. Patient trying to rest; no other needs/support needed or identified at this time. Brenda Campos, RN PROGRESSIVE CARE UNIT, BALLISTIC EXPERT
[2025-01-11 15:03] LABS: Pro- Brain NATRIURETIC PEPTIDE < 36 pg/mL (<=450)
--- NOTE | 2025-01-11 15:14 | RAD_ITS ---
PROCEDURE: CHEST 1 VIEW (PORTABLE) 01/11/2025 REASON FOR EXAM: PALPITATIONS TECHNIQUE: Frontal view of the chest. COMPARISON: 12/03/2024 FINDINGS: Hardware: None Heart: The heart size is normal. Lungs: The lungs are clear. Bones: The bones are unremarkable. Other: RAD/Chest 1 View (Portable) IMPRESSION: No Acute Findings. Reading Location: [id number]
[2025-01-11 15:53] LABS: Amphetamine Urine NEGATIVE (<1000 ng/mL); Barbiturate Urine NEGATIVE (< 200 ng/mL); Benzodiazepine Urine NEGATIVE (< 200 ng/mL); Buprenorphine Urine NEGATIVE (< 200 ng/mL); Cocaine Urine NEGATIVE (< 300 ng/mL); Fentanyl, Urine NEGATIVE; Methadone Urine NEGATIVE (< 300 ng/mL); Opiates Urine NEGATIVE (< 300 ng/mL); Oxycodone, Urine NEGATIVE (< 100 ng/mL); PCP Urine NEGATIVE (< 25 ng/mL); THC Urine NEGATIVE (< 50 ng/mL)
[2025-01-11 16:05] LABS: Mucous, Urine 0 SEEN /hpf (<or=2+)
--- NOTE | 2025-01-11 16:07 | HP.PCM.HOS_ITS ---
HPI - General General Date of Admission: 01/11/25 HPI Narrative AMBIKA BROWN, is a 34 F who [facility] Medical History Hypothyroidism Pancreatitis Cholecystectomy planned Implantable loop recorder present SVT (supraventricular tachycardia) History of lupus anticoagulant disorder History of asthma Insulin resistance Migraines Home Medications ?Medication ?Instructions ?Recorded ?Last Taken ?Type levothyroxine 50 mcg tablet 50 mcg PO DAILY 12/05/22 0 04/10/23 History (Synthroid) ascorbic acid (vitamin C) 500 mg 500 mg PO DAILY 03/05 Unknown History tablet aspirin 81 mg chewable tablet 81 mg PO DAILY 03/05/24 Unknown History cholecalciferol (vitamin D3) 25 25 mcg PO DAILY Unknown History mcg (1,000 unit) tablet gabapentin 100 mg capsule 100 mg PO DAILY PRN pain 05/04 Unknown History lisinopril 20 mg tablet 20 mg PO BID 09/17/24 Unknow n History ondansetron HCl 8 mg tablet 8 mg PO Q12H PRN nausea an d 09/17/24 Unknown History vomiting albuterol sulfate 90 mcg/actuation 1 inh inhalation ON CE PRN 11/18/24 Unknown History aerosol inhaler shortness of breath or wheez ing amlodipine 5 mg tablet (Norvasc) 5 mg PO QDAY #90 tabs 11/18/24 Unknown Rx metoprolol tartrate 25 mg tablet 25 mg PO BID #180 tab s 11/18/24 Unknown Rx Allergy/AdvReac Type Severity Reaction Status Date / Time diphenhydramine (From Allergy Mild Chest Verified 01/11/25 13:55 Benadryl) tightness prochlorperazine (From Allergy Other Verified 01/11/25 13:55 Compazine) Family History Mother Cancer Thyroid disorder Father Heart disease Early 50s Surgical History History of section History of electrophysiologic study (02/13/22) History of tonsillectomy History of cholecystectomy Social History household members: spouse Smoking Status: Never smoker alcohol intake: never substance use type: does not use caffeine: Yes Type: coffee Number of servings: 2 Vital Signs Vital Signs Vital Signs: 01/11/25 13:55 01/11/25 14:04 01/11/25 14:13 Temperature 98.2 F Temperature Source Oral Pulse Rate 126 H 119 H 101 H Respiratory Rate 26 H 22 H 20 H Blood Pressure 184/98 H 160/69 H 149/87 H Blood Pressure Mean 126 99 107 Pulse Ox 99 100 98 Oxygen Delivery Method Room Air Room Air Room Air Oxygen Flow Rate (L/min) 01/11/25 15:02 01/11/25 15:51 Temperature 98.0 F Temperature Source Pulse Rate 109 H 83 Respiratory Rate 22 H 15 Blood Pressure 164/95 H 145/96 H Blood Pressure Mean 118 112 Pulse Ox 99 100 Oxygen Delivery Method Nasal Cannula Oxygen Flow Rate (L/min) 2 Weight Weight: 335 lb 15.752 oz Body Mass Index (BMI) 52.6 Results Lab / Micro Data 01/11/25 14:05 01/11/25 14:05 Labs: Laboratory Results - last 24 hr 01/11/25 14:05: WBC 13.1 H, RBC 5.30, Hgb 13.5, Hct 41.2, MCV 77.7 L, MCH 25.5 L , MCHC 32.8, RDW Std Deviation 43.7, RDW Coeff of Remigio 15.4 H, Plt Count 262, MPV 11.2, Immature Gran % (Auto) 0.300, Neut % (Auto) 68.5, Lymph % (Auto) 23.2, [place] % (Auto) 5.5, Eos % (Auto) 2.1, Baso % (Auto) 0.4, Absolute Neuts (auto) 9.0 H, Absolute Lymphs (auto) 3.05, Nucleated RBC % 0, Sodium 137, Potassium 3.6, Chloride 103, Carbon Dioxide 21.6, Anion Gap 13, BUN 13, Creatinine 0.76, Estim Creat Clear Calc 162.75, Est GFR (MDRD) Non-Af 107, BUN/Creatinine Ratio 16.6, Glucose 155 H, Calcium 8.9, Total Bilirubin 0.31, AST 25, ALT 25, Alkaline Phosphatase 114 H, Troponin T High Sens < 6, NT pro BNP II < 36, Total Protein 7.7, Albumin 4.0, Globulin 3.7, Albumin/Globulin Ratio 1.1, TSH 1.620, Free T4 1.00, Free T3 pg/dL 3.0 01/11/25 15:24: Urine Opiates Screen NEGATIVE, U Buprenorphine Qual NEGATIVE, Ur Oxycodone Screen NEGATIVE, Urine Methadone Screen NEGATIVE, Urine Fentanyl Screen NEGATIVE, Ur Barbiturates Screen NEGATIVE, Ur Phencyclidine Scrn NEGATIVE, Ur Amphetamines Screen NEGATIVE, U Benzodiazepines Scrn NEGATIVE, Urine Cocaine Screen NEGATIVE, U Cannabinoids Screen NEGATIVE Imaging Radiology Impression Chest X-Ray 01/11/25 15:14 IMPRESSION: No Acute Findings. Reading Location: [id number]
--- NOTE | 2025-01-11 16:07 | PCM.HP.STD ---
HPI - General General Date of Admission: 01/11/25 HPI Narrative AMBIKA BROWN, is a 34 F who presents to the hospital with chest pain and palpitations. No syncope but some lightheadedness and dizziness. She says it has been going on since 2019 after she had COVID. Since that time she has had multiple evaluations with no definitive diagnosis she was evaluated by electrophysiology who could not induce an arrhythmia but and she had a loop recorder implanted which demonstrated 2 episodes of possible A-fib versus sinus rhythm with ectopy. She is also had episodes of SVT. Over the last couple of days she has been having increased palpitations and she does wear an Apple Watch which demonstrated what looks like episodes of A-fib however in the ER today she demonstrated episodes of nonsustained V. tach. Troponins were unremarkable she does have a leukocytosis but unclear source, urine analysis is pending. She denies any travel out of the area, no unregulated supplement use, no chemical exposures, and no drug use. TSH is normal and cardiology was consulted in the ER with their recommendation of an amiodarone drip and an echocardiogram. She had an echo in 2020 with an EF of 50% and mild global hypokinesis of the left ventricle with no evidence of diastolic dysfunction. She was and gave to her son in 2022 which seems to have worsen her arrhythmic episodes. [facility] Medical History Hypothyroidism Pancreatitis Cholecystectomy planned Implantable loop recorder present SVT (supraventricular tachycardia) History of lupus anticoagulant disorder History of asthma Insulin resistance Migraines Home Medications ?Medication ?Instructions ?Recorded ?Last Taken ?Type levothyroxine 50 mcg tablet 50 mcg PO DAILY 12/05/22 04/10/23 History (Synthroid) ascorbic acid (vitamin C) 500 mg 500 mg PO DAILY 03/05/24 Unknown History tablet aspirin 81 mg chewable tablet 81 mg PO DAILY 03/05/24 Unknown History cholecalciferol (vitamin D3) 25 25 mcg PO DAILY 03/05/24 Unknown History mcg (1,000 unit) tablet gabapentin 100 mg capsule 100 mg PO DAILY PRN pain 09/17/24 Unknown History lisinopril 20 mg tablet 20 mg PO BID 09/17/24 Unknown History ondansetron HCl 8 mg tablet 8 mg PO Q12H PRN nausea and 09/17/24 Unknown History vomiting albuterol sulfate 90 mcg/actuation 1 inh inhalation ONCE PRN 11/18/24 Unknown History aerosol inhaler shortness of breath or wheezing amlodipine 5 mg tablet (Norvasc) 5 mg PO QDAY #90 tabs 11/18/24 Unknown Rx metoprolol tartrate 25 mg tablet 25 mg PO BID #180 tabs 11/18/24 Unknown Rx Allergy/AdvReac Type Severity Reaction Status Date / Time diphenhydramine (From Allergy Mild Chest Verified 01/11/25 13:55 Benadryl) tightness prochlorperazine (From Allergy Other Verified 01/11/25 13:55 Compazine) Family History (Reviewed 01/08/25 @ 16:54 by Marisela Watkins LITHOGRAPHIC STRIPPER, LITHOGRAPHIC STRIPPER-C) Mother Cancer Thyroid disorder Father Heart disease Early 50s Surgical History (Reviewed 01/08/25 @ 16:54 by Marisela Watkins LITHOGRAPHIC STRIPPER, LITHOGRAPHIC STRIPPER-C) History of section History of electrophysiologic study (02/13/22) History of tonsillectomy History of cholecystectomy Social History household members: spouse Smoking Status: Never smoker alcohol intake: never substance use type: does not use caffeine: Yes Type: coffee Number of servings: 2 ROS Constitutional Constitutional: Denies chills, fatigue, fever(s) or malaise Eyes Eyes: Denies blurry vision ENT HEENT: Denies headache(s) or nasal discharge Cardiovascular Cardiovascular: Reports chest pain, lightheadedness and palpitations; Denies dyspnea on exertion or syncope Respiratory/Chest Respiratory/Chest: Denies cough, shortness of breath at rest or shortness of breath with exertion Gastrointestinal Gastrointestinal: Denies constipation, diarrhea, nausea or vomiting Genitourinary Genitourinary: Denies dysuria Neurologic Neurologic: Denies focal weakness, numbness or tremor(s) Psychiatric Psychiatric: Denies anxiety or depression Vital Signs Vital Signs Vital Signs: 01/11/25 13:55 01/11/25 14:04 01/11/25 14:13 Temperature 98.2 F Temperature Source Oral Pulse Rate 126 H 119 H 101 H Respiratory Rate 26 H 22 H 20 H Blood Pressure 184/98 H 160/69 H 149/87 H Blood Pressure Mean 126 99 107 Pulse Ox 99 100 98 Oxygen Delivery Method Room Air Room Air Room Air Oxygen Flow Rate (L/min) 01/11/25 15:02 01/11/25 15:51 Temperature 98.0 F Temperature Source Pulse Rate 109 H 83 Respiratory Rate 22 H 15 Blood Pressure 164/95 H 145/96 H Blood Pressure Mean 118 112 Pulse Ox 99 100 Oxygen Delivery Method Nasal Cannula Oxygen Flow Rate (L/min) 2 Weight Weight: 335 lb 15.752 oz Body Mass Index (BMI) 52.6 Physical Exam Narrative General: Alert, Oriented x3, Cooperative, No apparent distress HEENT: Atraumatic, PERRLA, EOMI, Normocephalic Oral: Dry mucosa Neck: Supple, No JVD Lungs: Clear to auscultation, Normal air movement, No rhonchi, No wheeze, No rales Cardiovascular: Regular rate, Regular Rhythm, Normal S1, Normal S2, No murmurs Abdomen: Soft, Non Tender, Non-Distended, No Hepato-splenomegaly Extremities: No edema, Capillary Refill Less than 3 Seconds Skin: No rashes, No breakdown Neurological: No focal neurological deficits, moves all extremities Psych/Mental Status: Normal Affect, Appropriate Results Lab / Micro Data 01/11/25 14:05 01/11/25 14:05 Labs: Laboratory Results - last 24 hr 01/11/25 14:05: WBC 13.1 H, RBC 5.30, Hgb 13.5, Hct 41.2, MCV 77.7 L, MCH 25.5 L, MCHC 32.8, RDW Std Deviation 43.7, RDW Coeff of Remigio 15.4 H, Plt Count 262, MPV 11.2, Immature Gran % (Auto) 0.300, Neut % (Auto) 68.5, Lymph % (Auto) 23.2, [place] % (Auto) 5.5, Eos % (Auto) 2.1, Baso % (Auto) 0.4, Absolute Neuts (auto) 9.0 H, Absolute Lymphs (auto) 3.05, Nucleated RBC % 0, Sodium 137, Potassium 3.6, Chloride 103, Carbon Dioxide 21.6, Anion Gap 13, BUN 13, Creatinine 0.76, Estim Creat Clear Calc 162.75, Est GFR (MDRD) Non-Af 107, BUN/Creatinine Ratio 16.6, Glucose 155 H, Calcium 8.9, Total Bilirubin 0.31, AST 25, ALT 25, Alkaline Phosphatase 114 H, Troponin T High Sens < 6, NT pro BNP II < 36, Total Protein 7.7, Albumin 4.0, Globulin 3.7, Albumin/Globulin Ratio 1.1, TSH 1.620, Free T4 1.00, Free T3 pg/dL 3.0 01/11/25 15:24: Urine Opiates Screen NEGATIVE, U Buprenorphine Qual NEGATIVE, Ur Oxycodone Screen NEGATIVE, Urine Methadone Screen NEGATIVE, Urine Fentanyl Screen NEGATIVE, Ur Barbiturates Screen NEGATIVE, Ur Phencyclidine Scrn NEGATIVE, Ur Amphetamines Screen NEGATIVE, U Benzodiazepines Scrn NEGATIVE, Urine Cocaine Screen NEGATIVE, U Cannabinoids Screen NEGATIVE Imaging Radiology Impression Chest X-Ray 01/11/25 15:14 IMPRESSION: No Acute Findings. Reading Location: [id number] Assessment & Plan Assessment/Plan (1) Ventricular tachycardia: (2) Palpitations: PLAN: Plan 1. Chest pain and palpitations/essential HTN ? Unclear as to what her underlying rhythm is, the rhythm strip from her watch almost looks like fine V-fib, in the ER she had nonsustained V. tach and on her loop recorder she had A-fib versus sinus rhythm with ectopy ? Will repeat echocardiogram and continue with amiodarone drip ? Will consult cardiology, initial troponin was unremarkable, 2-hour troponin still pending. BNP is normal ? Will resume her home blood pressure medications including her other rate control medications ? Unclear if this is related to COVID with a worsening since her surgery, in 2020 she did have mild global hypokinesis of the left ventricle on her echo which could be worsened with her ? Unclear as to the etiology of her leukocytosis, UA is pending 2. Hypothyroidism ? TSH is normal ? Continue with Synthroid DVT: Lovenox 75 minutes was spent on direct patient care, including documentation as well as chart review and collaboration with colleagues Charges/Coding Visit Charges Inpatient E&M: 98370 Init Hosp L3
[2025-01-11 16:12] LABS: Color, Urine Straw (Yellow); Glucose, Dipstick Normal (Normal); Ketone-Dipstick Negative (Negative); Leukocyte Esterase-Dipstick 25 /ul (Negative); Nitrite-Dipstick Negative (Negative); Occult Blood-Urine 10 /ul (Negative); Protein-Dipstick 15 mg/dl (Negative); Urine Bilirubin Dipstick Negative (Negative); Urine Clarity Clear (Clear); Urine Urobilinogen Normal (Normal)
--- NOTE | 2025-01-11 16:25 | ECHOCS_ITS ---
Reason For Study Reason For Study: ARRHYTHMIA Procedure This was a 2D Doppler, Color Flow transthoracic echocardiogram. The study was technically difficult. Contrast injection was performed. Exam performed portable in patient room. Left Ventricle Normal LV size. The left ventricular ejection fraction is 50 %. Stage 2 diastolic dysfunction. There is mild global hypokinesis of the left ventricle. Right Ventricle Normal RV size. Normal systolic function. Atria Normal left atrium. Normal right atrium. Mitral Valve Normal mitral valve. Tricuspid Valve Normal tricuspid valve. Aortic Valve Normal aortic valve. Pulmonic Valve Normal pulmonic valve. Great Vessels Normal aortic root. The pulmonary artery is normal size. Inferior vena cava collapse with respiration. Pericardium/Pleural No pericardial effusion. Medication Diluted definity 1.5ml given slow IV push to enhance endocardial definition. MMode/2D Measurements & Calculations LVIDd: 5.8 cm IVSd: 0.96 cm Ao root diam: 3.2 cm LVIDs: 4.7 cm LVPWd: 0.61 cm RVDd: 4.2 cm FS: 18.2 % LAV(MOD-bp): 65.1 ml LVAd ap4: 50.0 cm2 SV(MOD-sp4): 103.1 ml LAV(MOD-bp) Indexed: 25.9 ml/m2 LVLd ap4: 9.6 cm SI(MOD-sp4): 41.0 ml/m2 LAV(MOD-sp2): 50.6 ml EDV(MOD-sp4): 211.4 ml LAV(MOD-sp4): 66.8 ml EDV(sp4-el): 222.0 ml LVAs ap4: 31.5 cm2 LVLs ap4: 7.7 cm ESV(MOD-sp4): 108.4 ml ESV(sp4-el): 109.3 ml EF(MOD-sp4): 48.8 % EF(sp4-el): 50.8 % SV(sp4-el): 112.7 ml LA A4 area: 22.4 cm2 LA dimension(2D): 4.1 cm RA A4 area: 16.1 cm2 Time Measurements MV dec time: 0.19 sec Doppler Measurements & Calculations MV E max amado: 102.9 cm/sec Lat Peak E' Amado: 16.6 cm/sec Med Peak E' Amado: 13.7 cm/sec MV A max amado: 74.3 cm/sec E/E' lat: 6.2 E/E' med: 7.5 MV E/A: 1.4 MV V2 max: 124.2 cm/sec MV P1/2t max amado: 125.1 cm/sec Ao V2 max: 130.8 cm/sec MV max P.2 mmHg MV P1/2t: 60.5 msec Ao max P.8 mmHg MV V2 mean: 61.0 cm/sec MV dec slope: 605.4 cm/sec2 MV mean P.8 mmHg MVA(P1/2t): 3.6 cm2 MV V2 VTI: 32.7 cm LV V1 max: 110.4 cm/sec PA V2 max: 91.8 cm/sec LV V1 max P.9 mmHg PA V2 mean: 65.0 cm/sec ECHO/Echo Complete W/ Contrast Interpretation Summary Normal LV size. The left ventricular ejection fraction is 50 %. Stage 2 diastolic dysfunction. There is mild global hypokinesis of the left ventricle. Contrast injection was performed. Ordering Physician: Marlon Damon Performed By: Steve Ross RCS
[2025-01-11 16:26] LABS: Red Blood Cells-Urine 0-5 SEEN /hpf (0-5); White Blood Cells 5-10 SEEN /hpf (0-5)
[2025-01-11 16:27] LABS: Bacteria 2+ /hpf (None Seen); Squamous Epithelial Cells - UA 0-5 SEEN /hpf (5-10)
[2025-01-11 16:32] LABS: Troponin T High Sens 2 HR < 6 ng/L (<=14)
--- NOTE | 2025-01-11 16:58 | CON.PCM.CA_ITS ---
Assessment & Plan Assessment/Plan (1) Near syncope: (2) Palpitations: (3) SVT (supraventricular tachycardia): PLAN: 34-year-old patient Presented to ED at [facility] complaining of symptoms of chest pain and palpitation. She had symptoms of mild dizziness with lightheadedness. Evidently patient has longstanding history of arrhythmia and has been seen and followed by EP at [facility] , with the patient evaluated previously with EP study which is negative with no significant arrhythmia noted. She also has echocardiographic evaluation which showed LV function within normal and has been on treatment with metoprolol and lisinopril in addition to low-dose aspirin. Other medical problem include history of hypertension prior history of COVID-19, bronchial asthma. Cardiac exam essentially normal Cardiac care plan; Patient did share a monitor from her watch which showed irregular heart rhythm possible atrial fibrillation. Also she has implantable loop recorder which has been more than 4 years To explant and possible reimplant the loop recorder for monitoring of cardiac rhythm. Patient has recurrent episodes of nonsustained V. tach Check electrolytes magnesium potassium Started on amiodarone and remains in sinus with infrequent PVC Review of the current lab cardiac biomarker with high sensitive troponins and BNP within normal. Will reevaluate by echocardiogram Patient has been seen and followed here by primary medical social consultant at [facility] Dr. Conrad Will continue to monitor and follow-up in progressive care unit HPI Consult Data Date of Consult: 01/11/25 HPI Narrative Reason for Consultation: Palpitation/recurrent episodes of nonsustained V. 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-C) Hypothyroidism Pancreatitis Cholecystectomy planned Implantable loop recorder present SVT (supraventricular tachycardia) History of lupus anticoagulant disorder History of asthma Insulin resistance Migraines Home Medications ?Medication ?Instructions ?Recorded ?Last Taken ?Type levothyroxine 50 mcg tablet 50 mcg PO DAILY thyroid 04/10/23 History (Synthroid) ascorbic acid (vitamin C) 500 mg 500 mg PO DAILY suppl iment 03/05/24 Unknown History tablet aspirin 81 mg chewable tablet 81 mg PO DAILY preventat hilary 03/05/24 Unknown History cholecalciferol (vitamin D3) 25 25 mcg PO DAILY suppli ment 03/05/24 Unknown History mcg (1,000 unit) tablet gabapentin 100 mg capsule 100 mg PO DAILY PRN pain 05/04 Unknown History lisinopril 20 mg tablet 20 mg PO BID blood pressure 09/17/24 Unknown History ondansetron HCl 8 mg tablet 8 mg PO Q12H PRN nausea an d 09/17/24 Unknown History vomiting albuterol sulfate 90 mcg/actuation 1 inh inhalation ON CE PRN 11/18/24 Unknown History aerosol inhaler shortness of breath or wheez ing amlodipine 5 mg tablet (Norvasc) 5 mg PO QDAY blood pr essure #90 11/18/24 Unknown Rx tabs metoprolol tartrate 25 mg tablet 25 mg PO BID heart #1 80 tabs 11/18/24 Unknown Rx Allergy/AdvReac Type Severity Reaction Status Date / Time diphenhydramine (From Allergy Mild Chest Verified 01/11/25 13:55 Benadryl) tightness prochlorperazine (From Allergy Other Verified 01/11/25 13:55 Compazine) Family History (Reviewed 01/08/25 @ 16:54 by Marisela Watkins VENEER REPAIRER MACHINE, VENEER REPAIRER MACHINE-C) Mother Cancer Thyroid disorder Father Heart disease Early 50s Surgical History (Reviewed 01/08/25 @ 16:54 by Marisela Watkins VENEER REPAIRER MACHINE, VENEER REPAIRER MACHINE-C) History of section History of electrophysiologic study (02/13/22) History of tonsillectomy History of cholecystectomy Social History (Updated 01/11/25 @ 16:38 by Mago Hilton) household members: spouse housing: house Smoking Status: Never smoker alcohol intake: never substance use type: does not use caffeine: Yes Type: coffee Number of servings: 2 Physical Exam Cardio Cardio Narrative: Patient seen and evaluated in the ED Complaining of palpitation with chest pain library monitor showed sinus with frequent episodes of nonsustained V. tach Cardiac exam S1-S2 regular No systolic or diastolic murmur. Chest exam clear to auscultation bilateral. Examination lower extremity no lower extremity edema noted. Risk Stratification Risk Stratification Applicable: No Objective Data Vital Signs: Vital Signs Temp Pulse Resp BP Pulse Ox O2 Del Method O2 Flow Rate 98.0 F 83 15 145/96 H 100 Nasal Cannula 2 01/11/25 15:51 01/11/25 15:51 01/11/25 15:51 01/11/25 15:51 01/11/25 15:51 01/11/25 15:02 01/11/25 15:02 Oxygen Flow Rate (L/min) 2 Oxygen Delivery Method Nasal Cannula Weight: 334 lb 10.587 oz Body Mass Index (BMI) 52.4 Intake & Output: Intake and Output for Last 24 Hours 01/09/25 01/10/25 01/11/25 23:59 23:59 23:59 Intake Total 1104 / 1104 Balance 1104 / 1104 Lab / Micro Data 01/11/25 14:05 01/11/25 14:05 Labs: Laboratory Results - last 24 hr 01/11/25 14:05: WBC 13.1 H, RBC 5.30, Hgb 13.5, Hct 41.2, MCV 77.7 L, MCH 25.5 L , MCHC 32.8, RDW Std Deviation 43.7, RDW Coeff of Remigio 15.4 H, Plt Count 262, MPV 11.2, Immature Gran % (Auto) 0.300, Neut % (Auto) 68.5, Lymph % (Auto) 23.2, [place] % (Auto) 5.5, Eos % (Auto) 2.1, Baso % (Auto) 0.4, Absolute Neuts (auto) 9.0 H, Absolute Lymphs (auto) 3.05, Nucleated RBC % 0, Sodium 137, Potassium 3.6, Chloride 103, Carbon Dioxide 21.6, Anion Gap 13, BUN 13, Creatinine 0.76, Estim Creat Clear Calc 162.75, Est GFR (MDRD) Non-Af 107, BUN/Creatinine Ratio 16.6, Glucose 155 H, Calcium 8.9, Total Bilirubin 0.31, AST 25, ALT 25, Alkaline Phosphatase 114 H, Troponin T High Sens < 6, NT pro BNP II < 36, Total Protein 7.7, Albumin 4.0, Globulin 3.7, Albumin/Globulin Ratio 1.1, TSH 1.620, Free T4 1.00, Free T3 pg/dL 3.0 01/11/25 15:24: Urine Color Straw, Urine Clarity Clear, Urine pH 6.0, Ur Specific [place] 1.010, Urine Protein 15 H, Urine Glucose (UA) Normal, Urine Ketones Negative, Urine Occult Blood 10 H, Urine Nitrite Negative, Urine Bilirubin Negative, Urine Urobilinogen Normal, Ur Leukocyte Esterase 25 H, Urine RBC 0-5 SEEN, Urine WBC 5-10 SEEN, Ur Squamous Epith Cells 0-5 SEEN, Urine Bacteria 2+, Urine Mucus 0 SEEN, Urine Opiates Screen NEGATIVE, U Buprenorphine Qual NEGATIVE, Ur Oxycodone Screen NEGATIVE, Urine Methadone Screen NEGATIVE, Urine Fentanyl Screen NEGATIVE, Ur Barbiturates Screen NEGATIVE, Ur Phencyclidine Scrn NEGATIVE, Ur Amphetamines Screen NEGATIVE, U Benzodiazepines Scrn NEGATIVE, Urine Cocaine Screen NEGATIVE, U Cannabinoids Screen NEGATIVE 01/11/25 16:08: Troponin T Hi Sens 2 Hr < 6 Cardiology Labs/Tests 01/11/25 14:05: WBC 13.1 H, RBC 5.30, Hgb 13.5, Hct 41.2, MCV 77.7 L, MCH 25.5 L , MCHC 32.8, Plt Count 262, MPV 11.2, Immature Gran % (Auto) 0.300, Neut % (Auto) 68.5, Lymph % (Auto) 23.2, [place] % (Auto) 5.5, Eos % (Auto) 2.1, Baso % (Auto) 0.4, Absolute Neuts (auto) 9.0 H, Nucleated RBC % 0, Sodium 137, Potassium 3.6, Chloride 103, Carbon Dioxide 21.6, Anion Gap 13, BUN 13, Creatinine 0.76, Est GFR (MDRD) Non-Af 107, BUN/Creatinine Ratio 16.6, Glucose 155 H, Calcium 8.9, Total Bilirubin 0.31 01/11/25 15:24: Urine Color Straw, Urine Clarity Clear, Urine pH 6.0, Ur Specific [place] 1.010, Urine Protein 15 H, Urine Glucose (UA) Normal, Urine Ketones Negative, Urine Occult Blood 10 H, Urine Nitrite Negative, Urine Bilirubin Negative, Urine Urobilinogen Normal, Ur Leukocyte Esterase 25 H, Urine RBC 0-5 SEEN, Urine WBC 5-10 SEEN Rhythm: EKG: ECHO: Stress Test: Cardiac Cath: PCI: CT Surgery: Holter monitor: EPS: PPM: CXR: Chest CT Scan: Radiography Diagnostic Testing: Radiology Impression Chest X-Ray 01/11/25 15:14 IMPRESSION: No Acute Findings. Reading Location: [id number]
[2025-01-11 17:34] LABS: Phosphorus 2.9 mg/dL (2.7-4.5)
[2025-01-11 18:31] LABS: Troponin T High Sens 4 HR 6 ng/L (<=14)
[2025-01-11] MEDS: Metoprolol Tartrate 25 MG Tablet PO (20:42)
[2025-01-11] MEDS: Amiodarone 360 MG in Dextrose 5% Viaflo Bag 192.8 ML 16.7 MG CONT INF (20:42)
[2025-01-11] MEDS: Lisinopril 20 MG Tablet PO (20:42)
[2025-01-12] VITALS (23 sets, daily range): BP systolic 100–137; BP diastolic 53–101; PULSE 54–85; RESP 15–70; TEMP 36.6–36.9; O2SAT 94–98
[2025-01-12] MEDS: Levothyroxine 50 MCG Tablet PO (06:14)
[2025-01-12] MEDS: Ibuprofen 400 MG Tablet 800 MG PO (07:45)
[2025-01-12] MEDS: Aspirin 81 MG TAB.CHEW PO (07:45)
[2025-01-12 08:00] LABS: Absolute Lymphocyte Count 2.31 X10^3/uL (0.83-4.51); Absolute Neutrophil Count 5.6 X10^3/uL (2.0-7.7); Basophil# 0.02 X10^3/uL; Basophil% 0.2 % (0-1); Eosinophil# 0.29 X10^3/uL; Eosinophils% 3.3 % (0-5); Hemoglobin 11.7 g/dL (12.0-15.0); Lymphocyte # 2.31 X10^3/ul (0.83-4.51); Lymphocyte % 26.3 % (19-41); Mean Corp Hgb Conc 31.6 g/dL (32-36); Mean Corpuscular Hgb 25.2 pg (27.0-32.0); Mean Corpuscular Volume 79.6 fL (81-99); Mean Platelet Vol. 12.1 fl (6.2-12.0); Monocyte# 0.57 X10^3/uL; Monocyte% 6.5 % (0-10); NRBC Flagged by Analyzer 0 % (0-5); Neutrophil # 5.58 X10^3/uL (2.7-7.7); Neutrophil % 63.5 % (47-70); Platelet Count 204 K/mm3 (150-450); RBC Distribution Width CV 15.5 % (11.6-14.6); RBC Distribution Width SD 44.6 fl (35.1-43.9); Red Blood Count 4.65 M/mm3 (4.2-5.4); White Blood Count 8.8 K/mm3 (4.4-11.0)
[2025-01-12] MEDS: Amiodarone 360 MG in Dextrose 5% Viaflo Bag 192.8 ML 16.7 MG CONT INF (08:07)
[2025-01-12 09:14] LABS: Anion Gap 10 (5-15); BUN 8 mg/dL (4-19); BUN/Creat Ratio 13.7 RATIO (10-20); Calcium,Total 8.4 mg/dL (7.6-11.0); Carbon Dioxide 20.5 mmol/L (21.0-32.0); Chloride 107 mmol/L (98-108); Creatinine, Serum 0.58 mg/dL (0.70-1.20); EST Glomerular Filtration Rate 122 (>60); Estimated Creatinine Clearance 212.74 ml/min (50-250); Glucose 117 mg/dL (70-99); Sodium Level 137 mmol/L (133-145)
--- NOTE | 2025-01-12 09:29 | PN.HOSP_ITS ---
Reason for Visit Reason for Visit: Diagnoses Supraventricular tachycardia (01/11/25) Ventricular tachycardia (01/11/25) Palpitations (01/11/25) Syncope and collapse (01/11/25) Subjective Subjective Feeling okay at this time. No further palpitation Objective Data Objective Data Vital Signs: Vital Signs Temp Pulse Resp BP Pulse Ox O2 Del Method O2 Flow Rate 36.6 C 75 70 H 123/83 H 96 Room Air 2 01/12/25 04:00 01/12/25 08:00 01/12/25 08:07 01/12/25 08:00 01/12/25 08:00 01/12/25 08:00 01/11/25 15:02 Oxygen Flow Rate (L/min) 2 Oxygen Delivery Method Room Air Weight: 151.8 kg Body Mass Index (BMI) 52.4 Intake & Output: Intake and Output for Last 24 Hours 01/10/25 01/11/25 01/12/25 23:59 23:59 23:59 Intake Total 1462.41 / 1479.11 152.25 / 152.25 Balance 1462.41 / 1479.11 152.25 / 152.25 Lab / Micro Data 01/12/25 07:03 01/12/25 07:03 Labs: Laboratory Results - last 24 hr 01/11/25 14:05: WBC 13.1 H, RBC 5.30, Hgb 13.5, Hct 41.2, MCV 77.7 L, MCH 25.5 L , MCHC 32.8, RDW Std Deviation 43.7, RDW Coeff of Remigio 15.4 H, Plt Count 262, MPV 11.2, Immature Gran % (Auto) 0.300, Neut % (Auto) 68.5, Lymph % (Auto) 23.2, [place] % (Auto) 5.5, Eos % (Auto) 2.1, Baso % (Auto) 0.4, Absolute Neuts (auto) 9.0 H, Absolute Lymphs (auto) 3.05, Nucleated RBC % 0, Sodium 137, Potassium 3.6, Chloride 103, Carbon Dioxide 21.6, Anion Gap 13, BUN 13, Creatinine 0.76, Estim Creat Clear Calc 162.75, Est GFR (MDRD) Non-Af 107, BUN/Creatinine Ratio 16.6, Glucose 155 H, Calcium 8.9, Total Bilirubin 0.31, AST 25, ALT 25, Alkaline Phosphatase 114 H, Troponin T High Sens < 6, NT pro BNP II < 36, Total Protein 7.7, Albumin 4.0, Globulin 3.7, Albumin/Globulin Ratio 1.1, TSH 1.620, Free T4 1.00, Free T3 pg/dL 3.0 01/11/25 15:24: Urine Color Straw, Urine Clarity Clear, Urine pH 6.0, Ur Specific [place] 1.010, Urine Protein 15 H, Urine Glucose (UA) Normal, Urine Ketones Negative, Urine Occult Blood 10 H, Urine Nitrite Negative, Urine Bilirubin Negative, Urine Urobilinogen Normal, Ur Leukocyte Esterase 25 H, Urine RBC 0-5 SEEN, Urine WBC 5-10 SEEN, Ur Squamous Epith Cells 0-5 SEEN, Urine Bacteria 2+, Urine Mucus 0 SEEN, Urine Opiates Screen NEGATIVE, U Buprenorphine Qual NEGATIVE, Ur Oxycodone Screen NEGATIVE, Urine Methadone Screen NEGATIVE, Urine Fentanyl Screen NEGATIVE, Ur Barbiturates Screen NEGATIVE, Ur Phencyclidine Scrn NEGATIVE, Ur Amphetamines Screen NEGATIVE, U Benzodiazepines Scrn NEGATIVE, Urine Cocaine Screen NEGATIVE, U Cannabinoids Screen NEGATIVE 01/11/25 16:08: Phosphorus 2.9, Troponin T Hi Sens 2 Hr < 6 01/11/25 18:03: Troponin T Hi Sens 4Hr 6 01/12/25 07:03: WBC 8.8, RBC 4.65, Hgb 11.7 L, Hct 37.0, MCV 79.6 L, MCH 25.2 L, MCHC 31.6 L, RDW Std Deviation 44.6 H, RDW Coeff of Remigio 15.5 H, Plt Count 204, M PV 12.1 H, Immature Gran % (Auto) 0.200, Neut % (Auto) 63.5, Lymph % (Auto) 26.3, [place] % (Auto) 6.5, Eos % (Auto) 3.3, Baso % (Auto) 0.2, Absolute Neuts (auto) 5.6, Absolute Lymphs (auto) 2.31, Nucleated RBC % 0, Sodium 137, Potassium 4.0, Chloride 107, Carbon Dioxide 20.5 L, Anion Gap 10, BUN 8, C reatinine 0.58 L, Estim Creat Clear Calc 212.74, Est GFR (MDRD) Non-Af 122, BUN/Creatinine Ratio 13.7, Glucose 117 H, Calcium 8.4 Radiography Diagnostic Testing: Radiology Impression Chest X-Ray 01/11/25 15:14 IMPRESSION: No Acute Findings. Reading Location: [id number] Physical Exam Const alert and no apparent distress Constitutional Narrative: Lying in bed. Nontoxic. Afebrile. Neck no lymphadenopathy Resp normal respiratory effort and no retractions Neuro Sensorium / Orientation: awake and alert Psych affect normal Assessment & Plan Assessment/Plan (1) Arrhythmia: PLAN: Secondary to ventricular tachycardia. Discussed with Dr. Sanchez, he is concerned about VTE and spoke to Dr. Duran at [facility] and patient has been accepted there. Currently waiting on transfer. In the meantime, patient has been started on amiodarone drip. Echo ordered on the fourth and not yet performed. PLAN: Plan Chronic conditions: * HTN: continue lisinopril * hypothyroidism: levothyroxine. VTE prophylaxis: LMWH. Disposition to [facility] pending bed availability. Charges/Coding Visit Charges Inpatient E&M: 00524 Subs Hosp L2
[2025-01-12] MEDS: Metoprolol Tartrate 25 MG Tablet PO ×2 (09:33→20:32)
[2025-01-12] MEDS: Enoxaparin 40 MG/0.4 ML Syringe SC (09:33)
[2025-01-12] MEDS: Lisinopril 20 MG Tablet PO ×2 (09:34→20:32)
[2025-01-12] MEDS: amLODIPine 5 MG Tablet PO (09:34)
--- NOTE | 2025-01-12 09:58 | CON.PCM.CA_ITS ---
Assessment & Plan Assessment/Plan (1) Ventricular tachycardia: PLAN: Patient presented to emergency department 01/21/2025 with progressive multiple episodes of near syncope over the last 48 to 72 hours. While in the emergency department she had the same symptoms while a twelve-lead ECG was being performed in short 6 beat runs of ventricular tachycardia were captured. This exactly matched her symptoms she had been having over the last 72 hours. The patient does have a prior history of SVT and has been previously evaluated by Dr. Duran at [facility]. Echo is pending at this time. (2) Near syncope: PLAN: Patient did not actually pass out completely but felt like she was nearly passing out. She has had prior history of SVT but this was definitely different than her routine near syncope that she is learned to manage at home. Will attempt to get her transferred to the [facility] for further evaluation. Currently she is stable on IV amiodarone on telemetry. PLAN: Plan 1. Will continue IV amiodarone for the time being. 2. Will arrange for transfer to [facility] in the care of Dr. Duran 3. Echo is pending at this time. 4. I did discuss the plans with the nursing staff as well as the hospitalist team. HPI Consult Data Date of Consult: 01/12/25 HPI Narrative Reason for Consultation: Ventricular tachycardia with near syncope. HPI Narrative: AMBIKA BROWN, is a 34 F who presents with a 2-3-day history of increasing tachypalpitations with near syncope. Yesterday prior to admission she nearly passed out 3 times trying to take a shower. She then was driving and developed near syncope and was able to navigate her car to the hospital. Upon arrival the patient had recurring symptoms while her ECG was being done which documented multiple 6 beat runs of ventricular tachycardia. There was also a mention from the emergency department there may have been atrial fibrillation noted. However cannot find an ECG or telemetry strip consistent with atrial fibs. The patient was placed on IV amiodarone in the emergency department and since the loading dose of Amio she has had no recurrence of the ventricular tachycardia. Patient does have a history of hypothyroidism on replacement therapy. Thyroid studies in the emergency department within normal limits. Urine screen for illicit medications was negative. I do not find a urine or serum test. Patient did have a negative urine test September 2024. The patient has a history of nonsustained supraventricular tachycardia in the past with a negative EP study at [facility] with Dr. Arredondo. The patient also had a loop recorder at 1 point in time which is no longer functional. The patient's ECG from January 11 at 1400 hrs. showed 2 sequential 6 beat runs of ventricular tachycardia during the timing of the twelve-lead ECG. She was in sinus tach at that point in time and subsequent ECG showed normal sinus rhythm with nonspecific T wave changes. The patient is currently resting comfortably in the bed. [facility] Medical History Hypothyroidism Pancreatitis Cholecystectomy planned Implantable loop recorder present SVT (supraventricular tachycardia) History of lupus anticoagulant disorder History of asthma Insulin resistance Migraines Home Medications ?Medication ?Instructions ?Recorded ?Last Taken ?Type levothyroxine 50 mcg tablet 50 mcg PO DAILY thyroid 04/10/23 History (Synthroid) ascorbic acid (vitamin C) 500 mg 500 mg PO DAILY suppl iment 03/05/24 Unknown History tablet aspirin 81 mg chewable tablet 81 mg PO DAILY preventat hilary 03/05/24 Unknown History cholecalciferol (vitamin D3) 25 25 mcg PO DAILY suppli ment 03/05/24 Unknown History mcg (1,000 unit) tablet gabapentin 100 mg capsule 100 mg PO DAILY PRN pain 05/04 Unknown History lisinopril 20 mg tablet 20 mg PO BID blood pressure 09/17/24 Unknown History ondansetron HCl 8 mg tablet 8 mg PO Q12H PRN nausea an d 09/17/24 Unknown History vomiting albuterol sulfate 90 mcg/actuation 1 inh inhalation ON CE PRN 11/18/24 Unknown History aerosol inhaler shortness of breath or wheez ing amlodipine 5 mg tablet (Norvasc) 5 mg PO QDAY blood pr essure #90 11/18/24 Unknown Rx tabs metoprolol tartrate 25 mg tablet 25 mg PO BID heart #1 80 tabs 11/18/24 Unknown Rx Allergy/AdvReac Type Severity Reaction Status Date / Time diphenhydramine (From Allergy Mild Chest Verified 01/11/25 13:55 Benadryl) tightness prochlorperazine (From Allergy Other Verified 01/11/25 13:55 Compazine) Family History Mother Cancer Thyroid disorder Father Heart disease Early 50s Surgical History History of section History of electrophysiologic study (02/13/22) History of tonsillectomy History of cholecystectomy Social History household members: spouse housing: house Smoking Status: Never smoker alcohol intake: never substance use type: does not use caffeine: Yes Type: coffee Number of servings: 2 ROS Constitutional Constitutional: Reports as per HPI Eyes Eyes: Reports systems reviewed and no addt'l complaints, except as documented ENT HEENT: Reports systems reviewed and no addt'l complaints, except as documented Cardiovascular Cardiovascular: Reports as per HPI Respiratory/Chest Respiratory/Chest: Reports systems reviewed and no addt'l complaints, except as documented Gastrointestinal Gastrointestinal: Reports systems reviewed and no addt'l complaints, except as documented Genitourinary Genitourinary: Reports systems reviewed and no addt'l complaints, except as documented Musculoskeletal Musculoskeletal: Reports systems reviewed and no addt'l complaints, except as documented Integumentary Integumentary: Reports systems reviewed and no addt'l complaints, except as documented Neurologic Neurologic: Reports as per HPI Psychiatric Psychiatric: Reports systems reviewed and no addt'l complaints, except as documented Endocrine Endocrinology: Reports as per HPI Hematologic/Lymphatic Hematologic/Lymphatic: Reports systems reviewed and no addt'l complaints, except as documented Allergic/Immunologic Allergic/Immunologic: Reports systems reviewed and no addt'l complaints, except as documented Physical Exam Narrative Morbidly obese to BMI 52 Const alert and oriented x3 HEENT normocephalic Eyes EOMs intact bilaterally Neck no JVD and no carotid bruits Chest Chest Narrative: Increased AP diameter due to body habitus Resp normal respiratory effort and clear to auscultation bilaterally Cardio regular rate, regular rhythm, S1 normal heart sound, S2 normal heart sound, no murmurs, no rub and no gallops Cardio Narrative: Distant heart tones GI GI Narrative: Morbidly obese Extremity no pedal edema Psych mental status grossly normal Risk Stratification Risk Stratification Applicable: No Charges/Coding Visit Charges Inpatient E&M: 49697 Subs Hosp L3 Objective Data Vital Signs: Vital Signs Temp Pulse Resp BP Pulse Ox O2 Del Method O2 Flow Rate 98 F 75 70 H 123/83 H 96 Room Air 2 01/12/25 04:00 01/12/25 09:33 01/12/25 08:07 01/12/25 08:00 01/12/25 08:00 01/12/25 08:00 01/11/25 15:02 Oxygen Flow Rate (L/min) 2 Oxygen Delivery Method Room Air Weight: 334 lb 10.587 oz Body Mass Index (BMI) 52.4 Intake & Output: Intake and Output for Last 24 Hours 01/10/25 01/11/25 01/12/25 23:59 23:59 23:59 Intake Total 1462.41 / 1479.11 152.25 / 152.25 Balance 1462.41 / 1479.11 152.25 / 152.25 Lab / Micro Data Attestation: I reviewed the patient's lab results. 01/12/25 07:03 01/12/25 07:03 Labs: Laboratory Results - last 24 hr 01/11/25 14:05: WBC 13.1 H, RBC 5.30, Hgb 13.5, Hct 41.2, MCV 77.7 L, MCH 25.5 L , MCHC 32.8, RDW Std Deviation 43.7, RDW Coeff of Remigio 15.4 H, Plt Count 262, MPV 11.2, Immature Gran % (Auto) 0.300, Neut % (Auto) 68.5, Lymph % (Auto) 23.2, [place] % (Auto) 5.5, Eos % (Auto) 2.1, Baso % (Auto) 0.4, Absolute Neuts (auto) 9.0 H, Absolute Lymphs (auto) 3.05, Nucleated RBC % 0, Sodium 137, Potassium 3.6, Chloride 103, Carbon Dioxide 21.6, Anion Gap 13, BUN 13, Creatinine 0.76, Estim Creat Clear Calc 162.75, Est GFR (MDRD) Non-Af 107, BUN/Creatinine Ratio 16.6, Glucose 155 H, Calcium 8.9, Total Bilirubin 0.31, AST 25, ALT 25, Alkaline Phosphatase 114 H, Troponin T High Sens < 6, NT pro BNP II < 36, Total Protein 7.7, Albumin 4.0, Globulin 3.7, Albumin/Globulin Ratio 1.1, TSH 1.620, Free T4 1.00, Free T3 pg/dL 3.0 01/11/25 15:24: Urine Color Straw, Urine Clarity Clear, Urine pH 6.0, Ur Specific [place] 1.010, Urine Protein 15 H, Urine Glucose (UA) Normal, Urine Ketones Negative, Urine Occult Blood 10 H, Urine Nitrite Negative, Urine Bilirubin Negative, Urine Urobilinogen Normal, Ur Leukocyte Esterase 25 H, Urine RBC 0-5 SEEN, Urine WBC 5-10 SEEN, Ur Squamous Epith Cells 0-5 SEEN, Urine Bacteria 2+, Urine Mucus 0 SEEN, Urine Opiates Screen NEGATIVE, U Buprenorphine Qual NEGATIVE, Ur Oxycodone Screen NEGATIVE, Urine Methadone Screen NEGATIVE, Urine Fentanyl Screen NEGATIVE, Ur Barbiturates Screen NEGATIVE, Ur Phencyclidine Scrn NEGATIVE, Ur Amphetamines Screen NEGATIVE, U Benzodiazepines Scrn NEGATIVE, Urine Cocaine Screen NEGATIVE, U Cannabinoids Screen NEGATIVE 01/11/25 16:08: Phosphorus 2.9, Troponin T Hi Sens 2 Hr < 6 01/11/25 18:03: Troponin T Hi Sens 4Hr 6 01/12/25 07:03: WBC 8.8, RBC 4.65, Hgb 11.7 L, Hct 37.0, MCV 79.6 L, MCH 25.2 L, MCHC 31.6 L, RDW Std Deviation 44.6 H, RDW Coeff of Remigio 15.5 H, Plt Count 204, M PV 12.1 H, Immature Gran % (Auto) 0.200, Neut % (Auto) 63.5, Lymph % (Auto) 26.3, [place] % (Auto) 6.5, Eos % (Auto) 3.3, Baso % (Auto) 0.2, Absolute Neuts (auto) 5.6, Absolute Lymphs (auto) 2.31, Nucleated RBC % 0, Sodium 137, Potassium 4.0, Chloride 107, Carbon Dioxide 20.5 L, Anion Gap 10, BUN 8, C reatinine 0.58 L, Estim Creat Clear Calc 212.74, Est GFR (MDRD) Non-Af 122, BUN/Creatinine Ratio 13.7, Glucose 117 H, Calcium 8.4 Cardiology Labs/Tests 01/11/25 14:05: WBC 13.1 H, RBC 5.30, Hgb 13.5, Hct 41.2, MCV 77.7 L, MCH 25.5 L , MCHC 32.8, Plt Count 262, MPV 11.2, Immature Gran % (Auto) 0.300, Neut % (Auto) 68.5, Lymph % (Auto) 23.2, [place] % (Auto) 5.5, Eos % (Auto) 2.1, Baso % (Auto) 0.4, Absolute Neuts (auto) 9.0 H, Nucleated RBC % 0, Sodium 137, Potassium 3.6, Chloride 103, Carbon Dioxide 21.6, Anion Gap 13, BUN 13, Creatinine 0.76, Est GFR (MDRD) Non-Af 107, BUN/Creatinine Ratio 16.6, Glucose 155 H, Calcium 8.9, Total Bilirubin 0.31 01/11/25 15:24: Urine Color Straw, Urine Clarity Clear, Urine pH 6.0, Ur Specific [place] 1.010, Urine Protein 15 H, Urine Glucose (UA) Normal, Urine Ketones Negative, Urine Occult Blood 10 H, Urine Nitrite Negative, Urine Bilirubin Negative, Urine Urobilinogen Normal, Ur Leukocyte Esterase 25 H, Urine RBC 0-5 SEEN, Urine WBC 5-10 SEEN 01/11/25 16:08: Phosphorus 2.9 01/12/25 07:03: WBC 8.8, RBC 4.65, Hgb 11.7 L, Hct 37.0, MCV 79.6 L, MCH 25.2 L, MCHC 31.6 L, Plt Count 204, MPV 12.1 H, Immature Gran % (Auto) 0.200, Neut % (Auto) 63.5, Lymph % (Auto) 26.3, [place] % (Auto) 6.5, Eos % (Auto) 3.3, Baso % (Auto) 0.2, Absolute Neuts (auto) 5.6, Nucleated RBC % 0, Sodium 137, Potassium 4.0, Chloride 107, Carbon Dioxide 20.5 L, Anion Gap 10, BUN 8, Creatinine 0.58 L , Est GFR (MDRD) Non-Af 122, BUN/Creatinine Ratio 13.7, Glucose 117 H, Calcium 8.4 Rhythm: EKG: ECHO: Stress Test: Cardiac Cath: PCI: CT Surgery: Holter monitor: EPS: PPM: CXR: Chest CT Scan: Radiography Diagnostic Testing: Radiology Impression Chest X-Ray 01/11/25 15:14 IMPRESSION: No Acute Findings. Reading Location: [id number]
--- NOTE | 2025-01-12 12:15 | CASEMGMT ---
RN CM Face to Face with patient for initial transition planning/care coordination assessment. RN CM introduced self and role at [facility]. Patient lying in bed, alert and oriented. Patient willing to participate in assessment and is able to answer all questions appropriately. Care providers, pharmacy, and demographics verified. Strata: 2 PCP: Desi Specialists: REINALDO, statistical typist; EMILIANO Duran at [facility]: [facility] Insurance: MMO Prescription Benefit: yes Living Will/HPOA: none LNOK: Living Arrangements: Patient lives with in a single story home with 1 step to enter. Patient is independent at home Transportation: , self DME/HHC: Patient has shower chair, and crutches at home. No previous HHC or SNF. Patient wishes to discharge home, denies need for home health at this time. Patient states she has no further needs or concerns at this time. CM to follow for discharge planning needs that may arise. Disposition Plan: Patient to transfer to [facility] vs discharge home with family support and follow-up plans in place Claudia BONILLA, RN, CM
[2025-01-12] MEDS: Amiodarone 200 MG Tablet 400 MG PO (20:33)
--- NOTE | 2025-01-12 22:30 | DS.PCM_ITS ---
Providers Date of Admission: 01/11/25 Primary Care Physician: Dr. Mega Weeks MD Consultations 01/11/25 16:25 Consult: Cardiology Routine Consulting Provider: Shayla Rios Reason for Consult: Cardiac arrhythmia EMERGENT Consult: No MD Notified: Yes Date Notified: 01/11/25 Time Notified: 16:05 Method of Notification: ED Physician Initiated Reason For Visit: CARDIAC ARRHYTHMIA Diagnosis Discharge Diagnosis (1) Arrhythmia: Status: Acute Code(s): I49.9 - Cardiac arrhythmia, unspecified Plan: Secondary to ventricular tachycardia. Discussed with Dr. Sanchez, he is concerned about VTE and spoke to Dr. Duran at [facility] and patient has been accepted there. Currently waiting on transfer. In the meantime, patient has been started on amiodarone drip. Echo showed an EF of 50%. Mild global hypokinesis of the LV. Plan Chronic conditions: * HTN: continue lisinopril * hypothyroidism: levothyroxine. VTE prophylaxis: LMWH. Disposition to [facility] Medications at Discharge Home Medications levothyroxine 50 mcg tablet (Synthroid) 50 mcg PO DAILY thyroid 12/05/22 ascorbic acid (vitamin C) 500 mg tablet 500 mg PO DAILY suppliment 03/05/24 aspirin 81 mg chewable tablet 81 mg PO DAILY preventative 03/05/24 cholecalciferol (vitamin D3) 25 mcg (1,000 unit) tablet 25 mcg PO DAILY suppliment 03/05/24 gabapentin 100 mg capsule 100 mg PO DAILY PRN pain 09/17/24 lisinopril 20 mg tablet 20 mg PO BID blood pressure 09/17/24 ondansetron HCl 8 mg tablet 8 mg PO Q12H PRN nausea and vomiting 09/17/24 albuterol sulfate 90 mcg/actuation aerosol inhaler 1 inh inhalation ONCE PRN shortness of breath or wheezing 11/18/24 amlodipine 5 mg tablet (Norvasc) 5 mg PO QDAY blood pressure #90 tabs 11/18/24 metoprolol tartrate 25 mg tablet 25 mg PO BID heart #180 tabs 11/18/24 Hospital Course Operations None Procedures 2-D Echocardiogram Summary of Care Provided Minutes Spent on Discharge: 35 Hospital Course: 34-year-old female has been having long history of intermittent palpitations but had an episode that was much more sustained. Was essentially found to be ventricular tachycardia. Patient was started on amiodarone drip. Dr. Sanchez, cardiology, reached out to the EP physician at [facility], who agreed to accept the patient. Patient was later transferred on the fifth to [facility] in stable condition. Weight / BMI Weight Weight: 151.8 kg Body Mass Index (BMI) 52.4 ABG / Lab / Microbiology Data 01/12/25 07:03 01/12/25 07:03 Radiography Diagnostic Testing: Radiology Impression Echocardiogram 01/11/25 16:25 Interpretation Summary Normal LV size. The left ventricular ejection fraction is 50 %. Stage 2 diastolic dysfunction. There is mild global hypokinesis of the left ventricle. Contrast injection was performed. Ordering Physician: Marlon Damon Performed By: Steve Ross RCS D/C Instructions Discharge Diet: No restrictions DC O2, CPAP, BIPAP Needs Home O2 Discharge instructions: No Meaningful Use Info Meaningful Use Meaningful Use Diagnoses (Choose all that apply): None applicable Ischemic Stroke Statin Dosing Therapy Reference: STATIN DOSE THERAPY REFERENCE: * Patients > 75 years receive moderate or high dose statin therapy. * Patients 75 years or YOUNGER should receive HIGH intensity statin dose unless contraindicated. You will be required to document reason for non-treatment if statin daily dose does not meet guidelines. HIGH DOSE STATIN THERAPY DAILY Atorvastatin > than or = to 40 mg Rosuvastatin > than or = to 20 mg Amlodipine + Atorvastatin > than or = to 2.5/40 mg Ezetimibe + Simvastatin 10/80 mg Simvastatin 80mg Discharge Plan Admission Admit Date/Time: 01/11/25 16:03 Primary Reason for Your Visit: palpitations Attending Provider: Pj Sanchez Primary Care Provider: Mega Weeks I Consulting Providers: Shayla Rios; Marlon Damon Discharge Orders/Prescriptions Prescriptions: No Action aspirin 81 mg tablet,chewable 81 mg PO DAILY levothyroxine [Synthroid] 50 mcg tablet 50 mcg PO DAILY ascorbic acid (vitamin C) 500 mg tablet 500 mg PO DAILY cholecalciferol (vitamin D3) 25 mcg (1,000 unit) tablet 25 mcg PO DAILY albuterol sulfate 90 mcg/actuation HFA aerosol inhaler 1 inh inhalation ONCE PRN (Reason: shortness of breath or wheezing) metoprolol tartrate 25 mg tablet 25 mg PO BID Qty: 180 3RF amlodipine [Norvasc] 5 mg tablet 5 mg PO QDAY Qty: 90 3RF gabapentin 100 mg capsule 100 mg PO DAILY PRN (Reason: pain) ondansetron HCl 8 mg tablet 8 mg PO Q12H PRN (Reason: nausea and vomiting) lisinopril 20 mg tablet 20 mg PO BID Referrals / Follow Up: Mega Weeks MD [Primary Care Provider] - Disposition Disposition (needs filled in before D/C Order can be placed): Acute Care Hospital Charges/Coding Visit Charges Inpatient E&M: 83590 Disch Hosp >30min
--- NOTE | 2025-01-12 22:30 | NURSING ---
report given to Tara AVILA at [facility]
== END 2025-01-12 23:15 | disposition short-term general hospital (02) | DRG 309 ==
LOC: ED 14:38 → PCU 16:21
PROVIDERS: Admitting Provider Family Medicine; Emergency Provider Emergency Medicine; PCP Specialist; Visit Provider Internal Medicine Cardiovascular Disease
DX: I47.20 Ventricular tachycardia, unspecified (principal); Z68.43 Body mass index [BMI] 50.0-59.9, adult; I10 Essential (primary) hypertension; E03.9 Hypothyroidism, unspecified; I48.91 Unspecified atrial fibrillation; I47.10 Supraventricular tachycardia, unspecified; E66.813 Obesity, class 3; I49.3 Ventricular premature depolarization; Z86.16 Personal history of COVID-19; Z79.82 Long term (current) use of aspirin; Z95.818 Presence of other cardiac implants and grafts; Z79.890 Hormone replacement therapy; Z79.899 Other long term (current) drug therapy; Z79.51 Long term (current) use of inhaled steroids; Z88.8 Allergy status to other drugs, medicaments and biological substances; Z82.49 Family history of ischemic heart disease and other diseases of the circulatory system; Z90.49 Acquired absence of other specified parts of digestive tract; Z75.1 Person awaiting admission to adequate facility elsewhere
CPT/HCPCS: 36415; 71045; 80048; 80053; 80307; 81001; 83880; 84100; 84439; 84443; 84481; 84484; 85025; 93005; 93306; 99285; Q9957; A4216; C8929; J0612; J2405; J3475

== ENCOUNTER 2025-05-03 12:11 | Emergency (ER) | payer OTHER, MEDICAID, SELFPAY ==
[2025-05-03 12:11] VITALS: BP 141/95; PULSE 98; RESP 22; TEMP 36.8; O2SAT 97; BMI 55.2
--- NOTE | 2025-05-03 12:20 | EKG12_ITS ---
Test Reason : SVT Blood Pressure : */* mmHG Vent. Rate : 95 BPM Atrial Rate : 95 BPM P-R Int : 174 ms QRS Dur : 80 ms QT Int : 382 ms P-R-T Axes : 51 20 38 degrees QTcB Int : 480 ms Sinus rhythm with occasional Premature ventricular complexes QTcB >= 480 msec Abnormal ECG Confirmed by JARRELL GALEANO, ALLI ([id number]), editor dictionary RODY HENDRICKS ([id number]) on 05/04/2025 1:06:41 PM Referred By: BB Confirmed By: ALLI VIEYRA MD
--- OUTSIDE RECORDS SUMMARY | 2025-05-03 12:30 | XMS RPT_ITS | CCD ---
Author Organization [facility] ion Partnership [facility] Care Team Providers Care Brick Tender Name Role Phone PROVIDER, UNKNOWN Unavailable Unavailable No, PCP Unavailable Unavailable Vilma Long Unavailable Unavailable Ahmed, Mega Carlson Unavailable Unavailabl e AHMED, MEGA CARLSON Unavailable Unavailabl e MITCHELL, ANUPREET Unavailable Unavailable Shen, Letitia Unavailable Unavailable Update Needed Unavailable Unavailable Homafar, Soghra Unavailable Unavailable Ahmed, Mega I Unavailable Unavailable Update Needed Unavailable Unavailable Homafar, Soghra Unavailable Unavailable Homafar, Soghra Unavailable Unavailable Umair Sepulveda Unavailable Unavailable Ahmed, Mega I Unavailable Unavailable Unavailable Unavailable Unavailable Ahmed, Mega I Unavailable Aga Hagen Unavailable Unavailable Unavailable Roland SPECIMEN COLLECTOR, SPECIMEN COLLECTOR-C Marisela Attending Provider Care Physician, No Primary Primary Care Provider Unavailable Care Physician, No Primary Referring Provider Un available Ahmed, Mega Carlson Primary Care Provider Anamaria, [place] S Unavailable Nitin Rock MD Unavailable MEGA WEEKS MD Primary Care Physician Care Physician, No Primary Primary Care Provider Unavailable Care Physician, No Primary Referring Provider Un available Roland SNOW, SPECIMEN COLLECTOR-Kait Antonio Attending Provider Max SNOW, EDY-Kait Cervantes Attending Provider Mega Weeks Carlson Primary Care Provider Anamaria, John S Unavailable Nitin Rock MD Unavailable Lee SPECIMEN COLLECTOR, SPECIMEN COLLECTOR-C Charlie Attending Provider [facility], Out of Primary Care Provider Leena Howard SPECIMEN COLLECTOR, SPECIMEN COLLECTOR-C Charlie Attending Provider [facility], Out of Primary Care Provider Leena MEDEL, GIANFRANCO Valle[place] Attending Provider [facility], Out of Referring Provider Unavailab le Mega Weeks Primary Care Provider Anamaria, John S Unavailable Nitin Rock MD Unavailable Dr. Sukhdev Bernal Attending Provider Care Physician, No Primary Primary Care Provider Unavailable Dr. Sukhdev Bernal Referring Provider Bárbara Swartz Attending Provider Unavailable Dr. John Conrad Referring Provider [facility], Out of Primary Care Provider Dr. John Pritchard Attending Provider [phone] Bárbara Swartz Attending Provider Unavailable Desi Acosta MD, Ashraf Primary Care Provider Farzana Castillo Unavailable UnavailGIANFRANCO Santizo Attending Provider [facility], Out of Primary Care Provider Unava labcorina [facility], Out of Referring Provider Unavailab Dr. Sukhdev Hughes Attending Provider Dr. Sukhdev Bernal Referring Provider Care Physician, No Primary Primary Care Provider Unavailable Dr. John Conrad Attending Provider Dr. John Conrad Referring Provider Bárbara Swartz Attending Provider Unavailable Mega Weeks MD, I Primary Care Provider Bárbaar Swartz Attending Provider Unavailable Care Physician, No Primary Primary Care Provider Unavailable Care Physician, No Primary Referring Provider Un available Dr. John Conrad Attending Provider [facility], Out of Referring Provider Unavailab corina MEDEL, GIANFRANCO [place] Attending Provider Mega Weeks MD I Primary Care Provider John Conrad Unavailable Care Physician, No Primary Primary Care Provider Unavailable Care Physician, No Primary Referring Provider Un available Dr. John Conrad Attending Provider [phone] EDINSON, KIN Admitting Unavailable EDINSON, KIN Attending Unavailable AHMED, MEGA Primary Care Unavailable MONTANEZ, JODY Admitting Unavailable MONTANEZ, JODY Attending Unavailable AHMED, MEGA Primary Care Unavailable BENJY, MARYCHUY Admitting Unavailable BENJYASTRIDMARYCHUY Attending Unavailable AHMED, MEGA Primary Care Unavailable MONTANEZ JODY Attending Unavailable AHMED, MEGA Primary Care Unavailable CHANDRIKA DAOINE Admitting Unavailable KOFFI ADAMS Consulting Unavailable MEI HERRON Consulting Unavailable DAO, MARY Admitting Unavailable DAO, MARY Attending Unavailable AHMED, MEGA Primary Care Unavailable EDINSON, KIN Admitting Unavailable EDINSON, KIN Attending Unavailable AHMED, MEGA Primary Care Unavailable LEV DAVILA Attending Unavailable AHMED, MEGA Primary Care Unavailable DANNI TORRES Attending Unavailable AHMED, MEGA Primary Care Unavailable ORION FARIAS Attending Unavailable AHMED, MEGA Primary Care Unavailable Pastor Abbott Emergency Provider Alison Weeks Primary Care Provider John Conrad MD Unavailable Nitin Rock MD Unavailable Carmine SPECIMEN COLLECTOR, DONALD Coffey Attending Provider [phone] LAURA LUDWIG Referring Unavailable MARY DAO Attending Unavailable AHMED I, MEGA Primary Care Unavailable LUIS DANIEL SARAH Referring Unavailable AHMED I, MEGA Primary Care Unavailable SARAH SHEEHAN Attending Unavailable AHMED I, MEGA Primary Care Unavailable BRENDA WATKINS Attending Unavailable LAURA LUDWIG Referring Unavailable AHMED I, MEGA Primary Care Unavailable KERRY ROBBINS Attending Unavailable KERRY ROBBINS Referring Unavailable AHMED I, MEGA Primary Care Unavailable JESÚS, BRENDA L Referring Unavailable JESÚS, BRENDA L Attending Unavailable AHMED I, MEGA Primary Care Unavailable JESÚS, BRENDA L Referring Unavailable JESÚS, BRENDA L Attending Unavailable AHMED I, MEGA Primary Care Unavailable JESÚS, BRENDA L Referring Unavailable KERRY ROBBINS Attending Unavailable AHMED I, MEGA Primary Care Unavailable JESÚS, BRENDA L Referring Unavailable JESÚS, BRENDA L Attending Unavailable AHMED I, MEGA Primary Care Unavailable PARKER SUGGS Attending Unavailable PARKER SUGGS Referring Unavailable AHMED I, MEGA Primary Care Unavailable JESÚS, BRENDA L Attending Unavailable BÁRBARA MASON Referring Unavailable REFERRED, SELF Attending Unavailable REFERRED, SELF Referring Unavailable AHMED I, MEGA Primary Care Unavailable BÁRBARA MASON Referring Unavailable BÁRBARA MASON Attending Unavailable AHMED I, MEGA Primary Care Unavailable KERRY ROBBINS Attending Unavailable BENNY MASON Referring Unavailable BÁRBARA MASON Referring Unavailable OSORIOCHANTEL Attending Unavailable AHMED I, MEGA Primary Care Unavailable OSORIO, CHANTEL F Attending Unavailable AHMED I, MEGA Primary Care Unavailable BÁRBARA MASON Referring Unavailable BÁRBARA MASON Attending Unavailable AHMED I, MEGA Primary Care Unavailable BÁRBARA MASON Referring Unavailable JESÚS, BRENDA L Referring Unavailable AHMED I, MEGA Primary Care Unavailable LAURA LUDWIG Attending Unavailable AHMED I, MEGA Primary Care Unavailable JESÚS, BRENDA L Attending Unavailable JESÚS, BRENDA L Referring Unavailable OSORIO, CHANTEL F Referring Unavailable KERRY ROBBINS Attending Unavailable AHMED I, MEGA Primary Care Unavailable BÁRBARA MASON Referring Unavailable OSORIOCHANTEL F Attending Unavailable AHMED I, MEGA Primary Care Unavailable FEROZ, LAURA Referring Unavailable LAURA LUDWIG Attending Unavailable AHMED I, MEGA Primary Care Unavailable SMITH, ANHTUAN T Referring Unavailable AHMED I, MEGA Primary Care Unavailable BÁRBARA MASON Attending Unavailable AHMED I, MEGA Primary Care Unavailable BÁRBARA MASON Referring Unavailable BÁRBARA MASON Attending Unavailable BRENDA WATKINS Referring Unavailable AHMED I, MEGA Primary Care Unavailable BÁRBARA MASON Attending Unavailable AHMED I, MEGA Primary Care Unavailable BÁRBARA MASON Referring Unavailable BÁRBARA MASON Attending Unavailable REFERRED, SELF Referring Unavailable AHMED I, MEGA Primary Care Unavailable BÁRBARA MASON Attending Unavailable AHMED I, MEGA Primary Care Unavailable BÁRBARA MASON Referring Unavailable BÁRBARA MASON Attending Unavailable CHANTEL OSORIO F Attending Unavailable AHMED I, MEGA Primary Care Unavailable RUDY MASONE Referring Unavailable LAURA LUDWIG Referring Unavailable FARZANA CASTILLO Attending Unavailabl e AHMED I, MEGA Primary Care Unavailable BRENDA WATKINS Referring Unavailable BRENDA WATKINS Attending Unavailable AHMED I, MEGA Primary Care Unavailable LAURA LUDWIG Referring Unavailable LAURA LUDWIG Attending Unavailable AHMED I, MEGA Primary Care Unavailable RUDY MASONE Referring Unavailable OSORIO, CHANTEL F Attending Unavailable AHMED I, MEGA Primary Care Unavailable RUDY MASONE Referring Unavailable OSORIO, CHANTEL F Attending Unavailable AHMED I, MEGA Primary Care Unavailable BÁRBARA MASON Referring Unavailable AHMED I, MEGA Primary Care Unavailable BÁRBARA MASON Attending Unavailable AHMED I, MEGA Primary Care Unavailable OSORIO, CHANTEL F Referring Unavailable OSORIO, CHANTEL F Attending Unavailable AHMED I, MEGA Primary Care Unavailable OSORIO, CHANTEL F Attending Unavailable RUDY MASONE Referring Unavailable AHMED I, MEGA Primary Care Unavailable OSORIO, CHANTEL F Attending Unavailable RULA MASONANNE Referring Unavailable AHMED I, MEGA Primary Care Unavailable JODY MONTANEZ Attending Unavailable BÁRBARA MASON Referring Unavailable AHMED I, MEGA Primary Care Unavailable BÁRBARA MASON Referring Unavailable BÁRBARA MASON Attending Unavailable RUDY MASONE Referring Unavailable BÁRBARA MASON Attending Unavailable AHMED I, MEGA Primary Care Unavailable RUDY MASONE Referring Unavailable JESÚS, BRENDA L Attending Unavailable AHMED I, MEGA Primary Care Unavailable FEROZ, LAURA Referring Unavailable KIN NEVES Attending Unavailable AHMED I, MEGA Primary Care Unavailable MARLON BÁRBARA Referring Unavailable OSORIO CHANTEL F Attending Unavailable AHMED I, MEGA Primary Care Unavailable RUDY MASONE Referring Unavailable HANNA SMITH Attending Unavailable AHMED I, MEGA Primary Care Unavailable MARLONRULABÁRBARA Referring Unavailable MARLONRUDY ZAPIENE Attending Unavailable AHMED I, MEGA Primary Care Unavailable AHMED I, MEGA Primary Care Unavailable JESÚS, BRENDA L Referring Unavailable RUDY MASONE Attending Unavailable RUDY MASONE Attending Unavailable AHMED I, MEGA Primary Care Unavailable JODY MONTANEZ Attending Unavailable OSORIO, CHANTEL F Referring Unavailable JESÚS, BRENDA L Attending Unavailable SARAH SHEEHAN Attending Unavailable FEROZ, LAURA Referring Unavailable AHMED I, MEGA Primary Care Unavailable AHMED I, MEGA Primary Care Unavailable JESÚS, BRENDA L Referring Unavailable JESÚS, BRENDA L Attending Unavailable JODY MONTANEZ Attending Unavailable AHMED I, MEGA Primary Care Unavailable MARLONRULABÁRBARA Referring Unavailable RULA MASONANNE Referring Unavailable JODY MONTANEZ Attending Unavailable AHMED I, MEGA Primary Care Unavailable AHMED, MEGA CARLSON Primary Care Unavailabl e ZULMA MAYERS Attending Unavailable AHMED, MEGA CARLSON Primary Care Unavailabl e ZULMA MAYERS Attending Unavailable AHMED, MEGA CARLSON Primary Care Unavailabl e NOT, DEFINED Primary Care Provider UnavailDr. John Bedolla Attending Provider [phone] Care Physician, No Primary Referring Provider Un available Bre MEDEL, GIANFRANCO [place]le[place] Attending Provider [facility], Out of Primary Care Provider Leena steiner Ahmed, Mega Carlson Primary Care Provider [phone] Ahmed, Mega I Attending Unavailable Ahmed, Mega I Attending Unavailable Ahmed, Mega I Attending Unavailable Pastor Abbott Attending Unavailable Alison Weeks Primary Care Unavailable Anup THAPA, Dr. Salvador Attending Provider Dr. Madeleine Hebert DO Emergency Provider AHSANGEETHA, MEGA Primary Care Provider Care Physician, No Primary Primary Care Provider Unavailable Roxanne THAPA, Dr. Wilson Attending Provider Roxanne THAPA, Dr. Wilson Emergency Provider Anamaria GALEANO, Dr. Lopez Attending Provider Care Physician, No Primary Referring Provider Un available Alison Chaudhary Attending Provider Alison Chaudhary Referring Provider Dr. Silvano Perez DO Emergency Provider Dr. Mega Weeks MD, I Primary Care Provider Alison Díaz PA-C Unavailable Desi, Mega Carlson Primary Care Provider Desi GALEANO, Mega Carlson Primary Care Provider Mega Weeks MD Unavailable MEGA WEEKS CARLSON Primary Care Unavailabl e SARAH SAM Referring Unavailable AHMED, MEGA CARLSON Primary Care Unavailabl e Care Physician, No Primary Primary Care Provider Unavailable Dr. Silvano Perez DO Attending Provider Dr. Mega Weeks MD, I Referring Provider Marisela Lyles Attending Provider Nelson GALEANO, Dr. Marlon Vogel Admit Provider Nelson GALEANO, Dr. Marlon Vogel Other Provider Gabriel GALEANO, Dr. Mcguire Other Provider Dr. Cesar Sanchez MD Attending Provider Nelson GALEANO, Dr. Marlon Vogel Attending Provider Gabriel GALEANO, Dr. Mcguire Attending Provider [phone] Dr. Riley Haque DO Attending Provider Garland THAPA, Dr. Lin Other Provider 1([phone] Anamaria GALEANO, Dr. Lopez Attending Provider Gabriel GALEANO, Dr. Mcguire Other Provider Gabriel GALEANO, Dr. Mcguire Attending Provider Marisela Lyles Referring Provider DALILA FERNANDEZ Attending Unavailable DALILA FERNANDEZ Referring Unavailable AHMED, MEGA CARLSON Primary Care Unavailabl e HAILEY MARLOW Attending Unavailable AHMED, MEGA CARLSON Primary Care Unavailabl e AHMED, MEGA CARLSON Primary Care Unavailabl e AHMED, MEGA CARLSON Primary Care Unavailabl e DALILA FERNANDEZ Attending Unavailable AHMED, MEGA CARLSON Primary Care Unavailabl e IRMA MCINTOSH Attending Unavailable AHMED, MEGA CARLSON Primary Care Unavailabl e AGA KLEIN Attending Unavailable AHMED, MEGA CARLSON Primary Care Unavailabl e WASHINGTON MONDRAGON Attending Unavailable AHMED, MEGA CARLSON Primary Care Unavailabl e AHMED, MEGA CARLSON Primary Care Unavailabl e WALESKA ACEVEDO Attending Unavailable AHMED, MEGA CARLSON Primary Care Unavailabl e AHMED, MEGA CARLSON Primary Care Unavailabl e CECIL HAHN Referring Unavailable AHMED, MEGA CARLSON Primary Care Unavailabl e LISE NEVAREZ Attending Unavailable DALILA FERNANDEZ Referring Unavailable AHMED, MEGA CARLSON Primary Care Unavailabl e SELF Referring Unavailable AHMED, MEGA CARLSON Primary Care Unavailabl e AARTI HUERTAS Attending Unavailable AHMED, MEGA CARLSON Primary Care Unavailabl e SELF Referring Unavailable AHMED, MEGA CARLSON Primary Care Unavailabl e WASIHNGTON MONDRAGON Referring Unavailable AHMED, MEGA CARLSON Primary Care Unavailabl e DALILA FERNANDEZ Attending Unavailable DALILA FERNANDEZ Referring Unavailable AHMED, MEGA [facility] Primary Care Unavailabl e WASHINGTON MONDRAGON Referring Unavailable AHMED, MEGA CARLSON Primary Care Unavailabl e SELF Referring Unavailable AHMED, MEGA CARLSON Primary Care Unavailabl e DESI GALEANO, MEGA I Attending Unavailable DESI GALEANO [facility] I Primary Care Unavailable MEGA WEEKS MD I Attending Unavailable DESI GALEANO [facility] I Primary Care Unavailable KARIN MARTINO Referring Unavailable AHMED, MEGA CARLSON Primary Care Unavailabl e MATTO, HECTOR Admitting Unavailable MATTODIXONHECTOR Attending Unavailable MATTO HECTOR Referring Unavailable AHMED, MEGA [facility] Primary Care Unavailabl e AHMED, MEGA [facility] Primary Care Unavailabl e PALLAVI, RADHA NATESA Admitting Unav ailable PALLAVI, RADHA LENZ Attending Unav ailable GRETTA VIDAL Consulting Unavailable CESAR SANCHEZ Referring Unavail able AHMED, MEGA CARLSON Primary Care Unavailabl e SHAQUILLE BECK Admitting Unavailable CELSO ROCHA Attending Unavailable NITIN ROCK Consulting Unavailable AHMED, MEGA [facility] Primary Care Unavailabl e NITIN ROCK Attending Unavailable ALISON DÍAZ Referring Unavai lable AHMED, MEGA [facility] Primary Care Unavailabl e Dr. Mega Weeks MD I Primary Care Provider Dr. Silvano Perez DO Emergency Provider Marisela Lyles Referring Provider Care Physician, No Primary Referring Provider Un available Alison Chaudhary Attending Provider [facility], Out of Referring Provider Unavailab Steve Conde Attending Unavailabl e Care Physician, No Primary Primary Care Unava ilable Silvano Perez Attending Unavailable Ahmed, Mega Primary Care Unavailable Town Doctor, Out of Primary Care Unavailable Madeleine Hebert Attending Unavailable Ahmed, Mega Primary Care Unavailable Anamaria, [place] Attending Unavailable Anamaria, [place] Attending Unavailable [facility] Doctor, Out of Referring Unavailable Ahmed, Mega Primary Care Unavailable Care Physician, No Primary Primary Care Unava ilable Anamaria, [place] Attending Unavailable Ahmed, Mega Primary Care Unavailable Roland SNOW, Marisela Referring Unavailable Roland SNOW, Marisela Attending Unavailable Belal, Farouk Consulting Unavailable Cesar Sanchez Attending Unavailable Brianna Damons F Admitting Unavailable Ahmed, Mega Primary Care Unavailable Chad Damonolas F Consulting Unavailable Care Physician, No Primary Referring Unava ilable Care Physician, No Primary Primary Care Unava ilable Alison Chaudhary Attending Unavail able Ahmed, Mega Referring Unavailable Roland SNOW, Marisela Attending Unavailable Ahmed, Mega Primary Care Unavailable Alison Chaudhary Attending Unavail able Ahmed, Mega Primary Care Unavailable Alison Chaudhary Referring Unavail able Care Physician, No Primary Primary Care Unava ilable Alison Chaudhary Referring Unavail able Alison Chaudhary Attending Unavail able RILEY KRUEGER Primary Care Unavailable Madeleine Hebert Attending Unavailable Care Physician, No Primary Referring Unava ilable Ahmed, Mega Primary Care Unavailable Alison Chaudhary Attending Unavail able Anamaria, John Attending Unavailable Town Doctor, Out of Primary Care Unavailable Marisela Watkins NP Referring Unavailable Cesar Sanchez Attending Unavailable Ahmed, Mega Primary Care Unavailable Ángelaal, Farouk Consulting Unavailable Cesar Sanchez Attending Unavailable Marlon Damon Admitting Unavailable Ahmed, Mega Primary Care Unavailable Chad Damonolas Jaspreet Consulting Unavailable Riley Haque Consulting Unavailable Riley Haque Attending Unavailable Chad Damonolas F Attending Unavailable Belal, Farouk Attending Unavailable Allergies Allergy Classification Reported Allergen(s) Allergy Type Date of Onset Reaction(s) Facility Prochlorperazine (12 sources) Prochlorperazine; Translations: [Compazine] Drug Allergy [id number] Work Phone: (6 sources) Prochlorperazine; Translations: [Compazine] Drug Allergy [facility] (20 sources) Prochlorperazine; Translations: [PROCHLORPERAZINE] Drug Allergy 019 Other: See Comments, Anxiety, Intolerance, Mental Status Change, Psychosis [facility] Comment on above: ANXIETY (20 sources) diphenhydrAMINE; Translations: [DIPHENHYDRAMINE] Drug Allergy 023 Palpitations [facility] (20 sources) diphenhydrAMINE Drug Allergy 023 Other: See Comments, Intolerance, Anxiety [facility] Work Phone: (1 source) diphenhydrAMINE Drug Allergy 023 [facility] (1 source) Prochlorperazine Drug Allergy [facility] (6 sources) Adhesive Tape-Silicones; Translations: [ADHESIVE TAPE-SILICONES] Drug Intolerance 025 Itching [facility] (1 source) diphenhydrAMINE Drug Allergy 025 [facility] (1 source) Prochlorperazine Drug Allergy 025 [facility] Repository Medications Current Medications Medication Drug Class(es) Dates Sig (Normalized) Sig (Original) acetaminophen 325 mg / HYDROcodone bitartrate 5 mg oral tablet (1 source) Opioid Agonist Start: 11-24-2015 take 1 tablet by mouth every six hours as needed for pain [place] 325- 5 mg oral tablet Dose = 1 tab(s), Oral, q6h, PRN as needed for pain, # 30 tab(s), 0 Refill(s) Start Date: 11/24/15 Status: Ordered [id number] actuat albuterol 0.09 mg/actuat metered dose inhaler (20 sources) beta2-Adrenergic Agonist Start: 11-18-2024 Albuterol Sulfate 90 mcg/actuation HFA aerosol inhaler Active 1 NMA INHALATION ONCE as needed for shortness of breath or wheezing November 18, 2024 12:00am Start: 07-04-2021 take 1 puff(s) by in halation every four hours Albuterol Sulfate Active 2 PUFF INHALATION Q4H July 04, 2021 2:18pm Start: 07-04-2021 take 1 puff(s) by in halation every four hours Albuterol Sulfate Active 2 PUFF INHALATION Q4H July 03, 2021 11:00pm Start: 06-15-2021 End: 07-04-2021 take 2.5 mg by inhalation every four hours Albuterol Sulfate 2.5 mg /3 mL (0.083 %) solution for nebulization Discontinued 2.5 mg INHALATION Q4H June 15, 2021 12:00am July 04, 2021 2:20pm Start: 07-10-2016 End: 08-09-2017 take 1 puff(s) by inhalation four times daily as needed Albuterol [Proventil Hfa *] 2 PUFF INH FOUR TIMES A DAY PRN July 10, 2016 August 09, 2017 Discontinued take 2 puff(s) by in halation every four hours as needed for wheezing albuterol HFA (PROVENTIL HFA, VENTOLIN HFA) 90 mcg/actuation inhaler Inhale 2 Puffs as instructed every 4 hours as needed for Wheezing/Shortness of Breath. Active albuterol 90 mcg /actuation inhaler Inhale 2 puffs. Active Comment on above: Inhale 2 Puffs as in structed every 4 hours as needed for Wheezing/Shortness of Breath. albuterol-budesonid e (Airsupra) 90-80 mcg/actuation inhaler (2 sources) albuterol-budeso ni de (Airsupra) 90-80 mcg/actuation inhaler Inhale 2 puffs if needed. Active amLODIPine 5 mg oral tablet (9 sources) Dihydropyridine Calcium Channel Sergo Start: 11-19-19 25 take 1 tablet by mouth once daily Amlodipine (Norvasc) 5 mg tablet Active 5 mg PO daily 90 3 November 18, 2024 12:00am blood pressure amoxicillin 500 mg oral capsule (1 source) Penicillin-class Antibacterial Start: 10-20-19 23 take 1 capsule by mouth three times daily amoxicillin (AMOXIL) 500 MG capsule Take 1 Capsule (500 mg) by mouth 3 times daily 0 10/20/2022 Active ascorbic acid 500 mg oral tablet (20 sources) Start: 03-05-20 24 take 1 tablet by mouth once daily Ascorbic Acid (Vitamin C) 500 mg tablet Active 500 mg PO DAILY March 05, 2024 12:00am suppliment Start: 11-08-2022 Ascorbic Acid (VITAMIN C) 250 MG CHEW 0 11/08/2022 Active Start: 05-09-2020 End: 06-11-2020 take 1 tablet by mouth once daily Ascorbic Acid [Vitamin C 500 Mg] 1 TAB PO DAILY May 09, 2020 June 10, 2020 Discontinued End: 11-23-2023 ascorbic acid (Vitamin C) 50 0 mg chewable tablet Chew 1 tablet (500 mg) at 3:00 in the morning. Active take 1 tablet by carmen th twice daily ascorbic acid (Vitamin C) 500 MG tablet Take 500 mg by mouth 2 times daily. 0 Active Vitamin C TABS R efills: 0 DO Active Vitamin C TABS R efills: 0 Active Comment on above: Take 500 mg by mouth once daily. Take 500 mg by mouth daily at bedtime. aspirin 81 mg chewable tablet (20 sources) Platelet Aggregation Inhibitor, Nonsteroidal Anti-inflammatory Drug Start: take 1 tablet by mouth once daily Aspirin 81 mg tablet,chewable Active 81 mg PO DAILY March 05, 2024 1:44pm preventative Start: 12-27-2022 End: 12-29-2022 aspirin EC tablet 162 mg Start: 10-05-2022 take 1 tablet by carmen th twice daily aspirin 81 MG chewable tablet Take 1 Tablet (81 mg) by mouth 2 times daily 30 Tablet 8 10/05/2022 Active Start: 07-04-2021 End: 03-05-2024 take 2 tablets by mouth once daily Aspirin 81 mg tablet,chewable Discontinued 162 mg PO DAILY July 04, 2021 12:00am March 05, 2024 1:46pm Start: 07-04-2021 take 162 mg by mouth once ed y Aspirin Active 162 MG PO DAILY July 04, 2021 12:00am Start: 06-15-2021 End: 07-04-2021 take 1 capsule by mouth once daily Aspirin 81 mg Capsule Discontinued 81 mg PO DAILY June 15, 2021 12:00am July 04, 2021 2:19pm Start: 10-29-2020 End: 11-28-2020 aspirin 81 mg oral tablet, c hewable Dose : 81 mg = 1 tab(s), Chewed, qDay, 0 Refill(s) Start Date: 10/29/20 Stop Date: 11/28/20 Status: Ordered Start: 05-09-2020 End: 12-26-2022 take 162 mg by mouth once daily 162 mg, Oral, Daily, F irst dose on Sun12/26/22 at 1645 Do not crush, chew, or split. Start: 02-24-2020 take 2 tablets by mo uth once daily Aspirin 81 MG Oral Tablet Chewable CHEW AND SWALLOW TWO TABLETS BY MOUTH EVERY DAY Quantity: 1 Refills: 5 Ordered: 03-Mar-2021 Umair Sepulveda MD Start : 03-Mar-2021 Active take 1 tablet by carmen once daily at bedtime aspirin, enteric coated (ASPIRIN, ENTERIC COATED) 81 mg EC tablet Take 81 mg by mouth daily at bedtime. Active End: 05-12-2023 take 2 tablets by mouth once daily aspirin 81 MG EC tablet Take 162 mg by mouth daily. 0 05/12/2023 Discontinued (Stop taking at discharge) Comment on above: Take 162 mg by mouth once daily. Take 162 mg by mouth daily at bedtime. Take 81 mg by mouth daily at bedtime. Blood Pressure Monitoring (BLOOD PRESSURE MONITOR AUTOMAT) JAY (5 sources) Start: 3 Blood Pressure Monitoring (BLOOD PRESSURE MONITOR AUTOMAT) JAY Use as directed during . Report BP 140/90 or greater 1 Each 0 10/05/2022 Active cephalexin 500 mg oral capsule (20 sources) Cephalosporin Antibacterial Start: 3 take 500 mg by mouth four times daily Cephalexin [Keflex] 500 MG PO FOUR TIMES A DAY 40 May 16, 2023 Active Start: 05-16-2023 take 500 mg by mouth four times daily Cephalexin 500 MG PO FOUR TIMES A DAY 40 May 16, 2023 Active Start: 03-22-2022 End: 04-25-2022 take 1 capsule by mouth every six hours Cephalexin 500 mg capsule Discontinued 500 mg PO EVERY 6 HOURS 12 March 22, 2022 12:00am April 25, 2022 11:10am Start: 05-09-2020 End: 06-11-2020 take 500 mg by mouth three times daily Cephalexin [Keflex] 500 MG PO THREE TIMES A DAY May 09, 2020 June 10, 2020 Discontinued Start: 08-09-2017 End: 12-03-2018 take 500 mg by mouth four times daily Cephalexin [Keflex] 500 MG PO FOUR TIMES A DAY August 09, 2017 December 02, 2018 Discontinued cholecalciferol 0.025 mg oral tablet (20 sources) Vitamin D Start: 03-05-2024 take 1 tablet by mouth once daily Cholecalciferol (Vitamin D3) 25 mcg (1,000 unit) tablet Active 25 ug PO DAILY March 05, 2024 12:00am suppliment Start: 12-27-2022 End: 12-29-2022 cholecalciferol (Vitamin D-3 ) tablet 200 Units Start: 12-26-2022 End: 12-26-2022 take 200 [IU] by mouth once daily 200 Units, Oral, Daily, First dose on Sun12/26/22 at 1645 Start: 12-05-2022 End: 11-20-2023 take 1 capsule by mouth once daily Cholecalciferol (Vitamin D3) 25 mcg (1,000 unit) capsule Discontinued 25 ug PO DAILY December 05, 2022 12:00am November 20, 2023 10:05am Start: 11-08-2022 Cholecalcifero l (VITAMIN D3) 50 MCG (2000 UT) CHEW 0 11/08/2022 Active Start: 01-17-2022 take 50 ug by mouth once daily Cholecalciferol (Vitamin D3) Active 50 MCG PO DAILY January 16, 2022 11:00pm cholecalciferol (Vitamin D3) 200 Unit tablet split tablet (18 sources) cholecalciferol (Vitamin D3) 200 Unit tablet split tablet Take by mouth. 0 Suspended cholecalciferol (Vitamin D3) 200 Unit tablet split tablet Take by mouth. 0 Active cholecalciferol, vitamin D3, (VITAMIN D3 ORAL) (20 sources) cholecalciferol, vitamin D3, (VITAMIN D3 ORAL) Take by mouth once daily. Suspended cholecalciferol, vitamin D3, (VITAMIN D3 ORAL) Take by mouth once daily. Active cholecalciferol, vitamin D3, (VITAMIN D3 ORAL) Take by mouth. Active cholecalciferol, vitamin D3, (VITAMIN D3 ORAL) Take by mouth. 0 Active Comment on above: Take by mouth. clotrimazole 0.01 mg/mg topical ointment (2 sources) Azole Antifungal Start: 2022 Clotrimazole 1 % ointment Apply to affected areas BID for 2 weeks. 56.7 g 1 05/12/2023 Active cranberry preparation 425 mg oral capsule (1 source) Non-Standardized Food Allergenic Extract, Non-Standardized Plant Allergenic Extract cranberry extract 425 mg cap Take by mouth. Active docosahexaenoic acid 200 mg oral capsule (2 sources) Start: 2019 End: 2022 take 200 mg by mouth once daily Docosahexaenoic Acid [ Dha] 200 MG PO DAILY May 09, 2020 May 15, 2023 Discontinued docusate sodium 100 mg oral capsule (4 sources) Start: 2022 End: 2022 take 1 capsule by mouth twice daily as needed for constipation Docusate Sodium (DSS) 100 MG capsule Take 1 capsule (100 mg) by mouth 2 times daily as needed for constipation. 60 capsule 0 05/11/2023 06/10/2023 Active ergocalciferol 1.25 mg oral capsule (1 source) Provitamin D2 Compound Start: 2015 ergocalciferol 50,000 intl units (1.25 mg) oral capsule Oral, qWeek, 0 Refill(s) Start Date: 11/23/15 Status: Ordered ferrous sulfate 325 mg oral tablet (4 sources) Start: 2022 End: 2022 take 1 tablet by mouth in the morning ferrous sulfate 325 (65 Fe) MG tablet Take 1 tablet (325 mg) by mouth in the morning and 1 tablet (325 mg) in the evening. Take with meals. 60 tablet 0 05/11/2023 06/10/2023 Active flecainide acetate 100 mg oral tablet (14 sources) Antiarrhythmic Start: 2024 End: 2024 take 1 tablet by mouth every twelve hours Flecainide 100 mg tablet Active 100 mg PO Q12H April 21, 2025 12:00am FLUoxetine 20 mg oral capsule (1 source) Serotonin Reuptake Inhibitor Start: 2017 FLUoxetine (PROZAC) 20 MG capsule Take 20 mg by mouth. 10/25/2017 Active fluticasone propionate 0.05 mg/actuat metered dose nasal spray (4 sources) Corticosteroid Start: 2021 take 1 spray(s) nasal route once daily Fluticasone Propionate Active 2 SPRAY INTRANASAL DAILY 18.2 September 07, 2022 12:00am administer into each nostril gabapentin 100 mg oral capsule (20 sources) Anti-epileptic Agent Start: 2018 End: 2022 gabapentin (NEURONTIN) 100 mg capsule Take three times a day as needed for migraine 90 capsule 3 11/05/2018 09/12/2022 Discontinued Start: 05-25-2018 End: 07-12-2025 take 1 capsule by mouth once daily as needed for pain Gabapentin 100 mg capsule Active 100 mg PO DAILY as needed for pain September 17, 2024 1:00am Comment on above: Take three times a d ay as needed for migraine hydroCHLOROthiazide 25 mg oral tablet (1 source) Thiazide Diuretic Start : 01-01 hydroCHLOROthiazide (HYDRODIURIL) 25 MG tablet Take 12.5 mg by mouth. 01/01/2018 Active levoFLOXacin 500 mg oral tablet (1 source) Quinolone Antimicrobial Start : 06-07 End: 06-14 take 1 tablet by mouth once daily levoFLOXacin (LEVAQUIN) 500 MG tablet Take 1 (one) tablet (500 mg total) by mouth daily for 7 days. 7 tablet 0 06/07/2018 06/14/2018 Active levothyroxine sodium 0.05 mg oral tablet (20 sources) l-Thyroxine Start : 12-27 End: 12-29 take 50 ug by mouth once daily before breakfast 50 mcg, Oral, Daily before breakfast, First dose on Sun12/27/22 at 0700 Tube feeding (TF) interaction, obtain physician order to manage, recommend holding TF for 30 minutes before and after dose. Start: 10-29-2020 Start: 09-15-2019 End: 05-12-2023 take 1 tablet by mouth once daily Levothyroxine (Synthroid) 50 mcg tablet Active 50 ug PO DAILY December 05, 2022 12:00am thyroid Comment on above: Take 50 mcg by mouth every morning. Take On an Empty Stomach lisinopril 20 mg oral tablet (20 sources) Angiotensin Converting Enzyme Inhibitor Start: 09-17-2024 take 1 tablet by mouth twice daily Lisinopril 20 mg tablet Active 20 mg PO TWICE A DAY September 17, 2024 1:00am blood pressure Start: 08-08-2022 End: 09-18-2022 take 1 tablet by mouth once daily Lisinopril 5 mg tablet Discontinued 5 mg PO DAILY 08 09August 08, 2022 1:00am September 18, 2022 3:28pm loratadine 10 mg oral tablet (7 sources) Start: 09-07-2022 take 1 tablet by mouth once daily Loratadine (Allergy Relief (Loratadine)) 10 mg tablet Active 10 MG PO DAILY September 07, 2022 12:00am Start: 02-19-2018 End: 12-03-2018 loratadine (CLARITIN) 10 mg tablet metoprolol tartrate 25 mg oral tablet (20 sources) beta-Adrenergic Sergo Start: 11-18-2024 take 1 tablet by mouth twice daily Metoprolol Tartrate 25 mg tablet Active 25 mg PO TWICE A DAY 180 November 18, 2024 12:00am heart Start: 11-20-2023 End: 06-24-2024 take 1 tablet by mouth once daily Metoprolol Succinate 25 mg tablet extended release 24 hr Discontinued 25 mg PO DAILY 90 November 20, 2023 12:00am June 24, 2024 9:18pm Start: 09-30-2023 End: 12-16-2024 take 1 tablet by mouth twice daily metoprolol tartrate, short acting, (LOPRESSOR) 50 mg tablet Take 1 tablet by mouth two times a day. 60 tablet 09/30/2023 12/16/2024 Discontinued (Changing Therapy/Dosage Form) Start: 01-17-2022 End: 02-26-2023 take 1 tablet by mouth twice daily metoprolol tartrate, short acting, (LOPRESSOR) 50 mg tablet Take 50 mg by mouth twice daily. 0 01/17/2022 02/26/2023 Discontinued Start: 08-15-2021 End: 05-15-2023 take 100 mg by mouth twice daily Metoprolol Succinate [Toprol Xl] 100 MG PO TWICE A DAY August 15, 2021 May 15, 2023 Discontinued Start: 07-05-2021 End: 01-17-2022 take 1 tablet by mouth twice daily Metoprolol Tartrate 100 mg tablet Discontinued 100 mg PO TWICE A DAY 60 July 05, 2021 5:02pm January 17, 2022 4:09pm Start: 06-22-2021 End: 07-05-2021 take 1 tablet by mouth twice daily Metoprolol Tartrate 50 mg tablet Discontinued 50 mg PO TWICE A DAY 60 June 22, 2021 12:00am July 05, 2021 5:04pm Comment on above: Take 100 mg by mouth twice daily. Take 50 mg by mouth twice daily. Take 1 tablet by carmen th two times a day. Mv-Min-Vit D-Xnyavhps-Zxjz 124 (Airborne Elderberry) 1,000 mg-50 mg-35.5 mg tablet, effervescent (8 sources) Start: 01-17-2022 take 1 tablet by mouth once Mv-Min-Vit D-Zxahgzgc-Nawg 124 (Airborne Elderberry) 1,000 mg-50 mg-35.5 mg tablet, effervescent Active EACH PO January 16, 2022 11:00pm Start: 01-17-2022 take 1 tablet by mouth once Mv -Min-Vit T-Kdtzrtqb-Nmzm 124 (Airborne Elderberry) 1,000 mg-50 mg-35.5 mg tablet, effervescent Active EACH PO January 17, 2022 12:00am nadolol 40 mg oral tablet (1 source) beta-Adrenergic Sergo Start: 10-25-2017 take 0.5 tablet by mouth once daily, then take 1 tablet by mouth once daily nadolol (CORGARD) 40 MG tablet 1/2 po qd and increase to 1 po qd after 2 day 10/25/2017 Active 24 hr NIFEdipine 30 mg extended release oral tablet (3 sources) Dihydropyridine Calcium Channel Sergo Start: 09-18-2022 take 30 mg by mouth once daily Nifedipine Active 30 MG PO DAILY September 18, 2022 12:00am oxyCODONE hydrochloride 5 mg oral tablet (4 sources) Opioid Agonist Start: 05-11-2023 End: 05-16-2023 take 1 tablet by mouth every six hours as needed for pain oxyCODONE (Roxicodone) 5 MG immediate release tablet Indications: S/P Take 1 tablet (5 mg) by mouth every 6 hours as needed for moderate pain (4-6) for up to 5 days. 20 tablet 0 05/11/2023 05/16/2023 Active Start: 05-09-2023 End: 05-12-2023 take 1 tablet by mouth every four hours as needed for pain oxyCODONE (Roxicodone) immediate release tablet 5 mg PNV/FERROUS SULFATE/FOLIC AC ID ( MULTIVIT WITH IRON ORAL) (20 sources) PNV/FERROUS SULF ATE/FOLIC ACID ( MULTIVIT WITH IRON ORAL) Take by mouth daily at bedtime. Suspended PNV/FERROUS SULF ATE/FOLIC ACID ( MULTIVIT WITH IRON ORAL) Take by mouth daily at bedtime. Active PNV/FERROUS SULF ATE/FOLIC ACID ( MULTIVIT WITH IRON ORAL) Take by mouth daily at bedtime. 0 Active PNV/FERROUS SULF ATE/FOLIC ACID ( MULTIVIT WITH IRON ORAL) Take by mouth once daily. 0 Active Comment on above: Take by mouth once d aily. Take by mouth daily at bedtime. [id number] Fumarate-Fa () 28-800 mg-mcg Tablet (9 sources) Start: 06-15-2021 take 1 tablet by mouth once daily [id number] Fumarate-Fa () 28-800 mg-mcg Tablet Active 1 TABLET PO DAILY June 15, 2021 10:38pm Start: 06-15-2021 take 1 tablet by carmen th once daily [id number] Fumarate-Fa () 28-800 mg-mcg Tablet Active 1 TABLET PO DAILY June 14, 2021 11:00pm Start: 06-15-2021 take 1 tablet by carmen th once daily [id number]-[id number] Fumarate-Fa () 28-800 mg-mcg Tablet Active 1 TABLET PO DAILY June 15, 2021 12:00am potassium chloride 10 meq extended release oral capsule (4 sources) Start: 08-29-2022 take 10 mEq by mouth once daily Potassium Chloride Active 10 MEQ PO DAILY August 29, 2022 12:00am MV & Min w/FA-DHA ( GUMMIES PO) (5 sources) MV & Mi n w/FA-DHA ( GUMMIES PO) Take by mouth daily 0 Active LF-Snp-JS-[place]-3 ( GUMMIES/DHA & FA PO) (16 sources) DL-Tmj-DT-[place]-3 ( GUMMIES/DHA & FA PO) Take 2 tablets by mouth daily. 0 Suspended MV-Min- FA-[place]-3 ( GUMMIES/DHA & FA PO) Take 2 tablets by mouth daily. 0 Active vits62/FA/om3/dha/epa ( GUMMY ORAL) (2 sources) take 1 tablet by mouth once daily vits62/FA/om3/dha/epa ( GUMMY ORAL) Take 1 tablet by mouth once daily. Active promethazine hydrochloride 25 mg oral tablet (20 sources) Phenothiazine Start: 2024 take 12.5-25 mg by mouth every eight hours as needed for nausea Promethazine 25 mg tablet Active 12.5 - 25 mg PO EVERY 8 HOURS as needed for nausea February 20, 2025 12:00am Start: 09-17-2024 End: 11-18-2024 take 1 tablet by mouth three times daily Promethazine 50 mg tablet Discontinued 50 mg PO THREE TIMES A DAY September 17, 2024 1:00am November 18, 2024 10:30am Start: 06-15-2021 take 25 mg by mouth every six hours Promethazine Active 25 MG PO EVERY 6 HOURS June 14, 2021 11:00pm Start: 10-20-2020 End: 02-09-2025 take 0.5-1 tablets by mouth every eight hours as needed for nausea promethazine (PHENERGAN) 25 mg tablet Indications: Chronic migraine without aura, intractable, without status migrainosus 1/2 to 1 po q8h prn headache or nausea 45 tablet 11 02/09/2025 Active Start: 12-21-2017 take 0.5-1 tablets b y mouth every eight hours as needed for nausea promethazine (PHENERGAN) 25 MG tablet 1/2 to 1 po q8h prn headache or nausea 12/21/2017 Active Comment on above: 1/2 to 1 po q8h prn headache or nausea rOPINIRole 1 mg oral tablet (1 source) Nonergot Dopamine Agonist Start: 8 rOPINIRole (REQUIP) 1 MG tablet Take 1 mg by mouth. 12/24/2017 Active sodium chloride 0.9 % nebulizer solution with albuterol (5 MG/ML) 0.5% nebulizer solution 0.9 mg/mL (18 sources) take 0.9 mg by inhalation four times daily as needed sodium chloride 0.9 % nebulizer solution with albuterol (5 MG/ML) 0.5% nebulizer solution 0.9 mg/mL Inhale 2 puffs 4 times daily as needed. 0 Suspended take 0.9 mg by inhal ation four times daily as needed sodium chloride 0.9 % nebulizer solution with albuterol (5 MG/ML) 0.5% nebulizer solution 0.9 mg/mL Inhale 2 puffs 4 times daily as needed. 0 Active terconazole 8 mg/ml vaginal cream (2 sources) Azole Antifungal Start: 03-09-2023 End: 03-12-2023 terconazole (Terazol 3) 0.8 % vaginal cream Insert 1 applicator into the vagina Nightly for 3 days. 20 g 0 03/09/2023 03/12/2023 Active 24 hr divalproex sodium 500 mg extended release oral tablet (9 sources) Mood Stabilizer, Anti-epileptic Agent Start: 03-12-2025 End: 03-22-2025 take 2 tablets by mouth once daily, then take 1 tablet by mouth once daily divalproex ER (DEPAKOTE ER) 500 mg 24 hr tablet Take 2 tablets by mouth once daily for 5 days, THEN 1 tablet once daily for 5 days. 15 tablet 03/12/2025 Active Start: 03-10-2025 End: 03-12-2025 1,000 mg, INTRAVENOUS, at 30 0 mL/hr, Administer over 20 Minutes, ONCE, 1 dose, On Sun03/12/25 at 1030, Hazardous Potential Reproductive Risk Drug: Use appropriate PPE. Refrigerate. Start: 08-20-2024 End: 08-22-2024 1,000 mg, INTRAVENOUS, at 30 0 mL/hr, Administer over 20 Minutes, ONCE, 1 dose, On Sun08/22/24 at 0930, Hazardous Potential Reproductive Risk Drug: Use appropriate PPE. Refrigerate. vitamin b12 2.5 mg oral tablet (16 sources) Vitamin B12 Start: 01-17-2022 take 2500 ug by mouth once daily Cyanocobalamin (Vitamin B-12) Active 2500 MCG PO DAILY January 16, 2022 11:00pm take 1 tablet by mouth once ed y cyanocobalamin (Vitamin B-12) 500 mcg tablet Take 1 tablet (500 mcg) by mouth once daily. Active Vitamin B12 TABS Refills: 0 DO Active Vitamin B12 TABS Refills: 0 Active Completed/Discontinued Medications Medication Drug Class(es) Dates Sig (Normalized) Sig (Original) acetaminophen 325 mg oral tablet (5 sources) Start: 05-09-2023 End: 05-12-2023 take 1 tablet by mouth every six hours as needed 650 mg, Oral, Every 6 hours PRN, other, Pain (1-10), Starting on Sun05/09/23 at 0500, Give in addition to any other pain medication ordered at same time for any pain indication. &a mp;nbsp;Maximum dose of acetaminophen is 4000mg from all sources in 24 hours. Alternate ibuprofen and acetaminophen every 3 hours. Start: 05-08-2023 End: 05-08-2023 acetaminophen (Tylenol) tabl et 1,000 mg Start: 05-08-2023 End: 05-08-2023 acetaminophen (Tylenol) tabl et 1,000 mg Start: 11-23-2015 Tylenol 325 mg oral tablet Dose : 650 mg = 2 tab(s), Oral, q4h, PRN Temperature greater than 38.5 degrees C, 0 Refill(s) Start Date: 11/23/15 Status: Ordered acetaminophen (Ofirmev) injection (1 source) Start: 05-09-2023 End: 05-09-2023 acetaminophen (Ofirmev) injection acetaminophen 500 mg / caffeine 65 mg oral tablet (6 sources) Central Nervous System Stimulant, Methylxanthine Start: 05-09-2023 End: 05-12-2023 take 2 tablets by mouth every six hours as needed for headache Acetaminophen-Caff eine (Excedrin Tension Headache) 2 tablet Start: 12-26-2022 End: 12-29-2022 Acetaminophen-Caffeine (Exce drin Tension Headache) 2 tablet Start: 12-24-2022 End: 12-24-2022 Acetaminophen-Caffeine (Exce drin Tension Headache) 2 tablet alpha-tocopherol acetate 30 unt / ascorbic acid 100 mg / beta carotene 1000 unt / calcium carbonate 200 mg / calcium pantothenate 7 mg / cholecalciferol 400 unt / docusate sodium 25 mg / ferrous fumarate 29 mg / folic acid 1 mg / niacinamide 15 mg / pyridoxine hydrochloride 20 mg / riboflavin 3 mg / thiamine 3 mg / vitamin b12 0.012 mg / zinc oxide 20 mg oral tablet (14 sources) Vitamin B12, Vitamin D, Vitamin C Start: 03-29-2021 take 1 tablet by mouth once daily 19 Oral Tablet TAKE 1 TABLET DAILY. Quantity: 30 Refills: 8 Ordered: 29-Mar-2021 Thi Peacock Start : 29-Mar-2021 Active azithromycin (Zithromax) 500 mg in sodium chloride 0.9 % 250 mL IVPB (ADD-[place]) (1 source) Start: 05-09-2023 End: 05-09-2023 azithromycin (Zithromax) 500 mg in sodium chloride 0.9 % 250 mL IVPB (ADD-[place]) benzonatate 100 mg oral capsule (5 sources) Non-narcotic Antitussive Start: 09-17-2024 End: 11-18-2024 take 1 capsule by mouth three times daily as needed for cough Benzonatate 100 mg capsule Discontinued 100 mg PO THREE TIMES A DAY as needed for cough 15 5 0 September 17, 2024 1:00am November 18, 2024 10:30am onabotulinumtoxina 200 unt injection (20 sources) Acetylcholine Release Inhibitor Start: 02-09-2025 End: 02-09-2025 onabotulinum toxin type A 200 Units injection (BOTOX) Start: 02-09-2025 End: 02-09-2025 inject 1 dose by intramuscular injection once 200 Units, INTRAMUSCULAR, ONCE, 1 dose, On Sun02/09/25 at 0930, This record documents the total dose provided to patient. See progress note for specific locations and amounts administered. Start: 04-28-2024 onabotulinum t oxin type A 155 Units injection (BOTOX) Start: 04-28-2024 155 Units, INT RADERMAL, EVERY 3 MONTHS, First dose on Sun04/28/24 at 1300, Until Discontinued, This record documents the total dose provided to patient. See progress note for specific locations and amounts administered. Start: 01-24-2024 End: 01-24-2024 onabotulinum toxin type A 15 5 Units injection (BOTOX) Start: 07-13-2021 inject 200 [IU] by s ubcutaneous injection every three months Onabotulinumtoxina (Botox) 200 unit Recon Soln Active 0 .ROUTE .COMPLEX July 12, 2021 11:00pm 200 unit subcutaneously every 3 months Start: 10-20-2020 End: 06-19-2022 onabotulinum toxin type A 20 0 Units injection (BOTOX) calcium ascorbate 500 mg oral tablet (10 sources) Start: 12-05-2022 End: 11-20-2023 take 1 tablet by mouth once daily Ascorbate Calcium (Vitamin C) 500 mg tablet Discontinued 500 mg PO DAILY December 05, 2022 12:00am November 20, 2023 10:05am calcium chloride 0.0014 meq/ml / potassium chloride 0.004 meq/ml / sodium chloride 0.103 meq/ml / sodium lactate 0.028 meq/ml injectable solution (3 sources) Start: 05-07-2023 End: 05-09-2023 lactated Ringer's (LR) infusion carvedilol 6.25 mg oral tablet (12 sources) alpha-Adrenergi c Sergo, beta-Adrenergic Sergo Start: 09-22-2024 End: 12-16-2024 take 1 tablet by mouth twice daily at mealtime Carvedilol (Coreg) 6.25 mg tablet Discontinued 6.25 mg PO TWICE A DAY November 18, 2024 12:00am November 18, 2024 10:30am must administer with a meal/food End: 12-16-2024 take 1 tablet by mouth twice daily at mealtime carvedilol (COREG) 3.125 mg tablet Take 3.125 mg by mouth two times a day with meals. 12/16/2024 Discontinued (Changing Therapy/Dosage Form) ceFAZolin (Ancef) 3,000 mg in sodium chloride 0.9 % 100 mL IVPB (1 source) Start: 05-09-2023 End: 05-09-2023 take 3000 mg intravenously every eight hours ceFAZolin (Ancef) 3,000 mg in sodium chloride 0.9 % 100 mL IVPB chlorhexidine gluconate 20 mg/ml medicated pad (2 sources) Start: 05-07-2023 End: 05-09-2023 Chlorhexidine Gluconate Cloth 2 % cloth chlorzoxazone 500 mg oral tablet (20 sources) Muscle Relaxant Start: 01-17-2022 End: 04-25-2022 Chlorzoxazone 500 mg tablet Discontinued NMA PO January 17, 2022 12:00am April 25, 2022 11:11am Start: 01-17-2022 End: 04-25-2022 Chlorzoxazone Discontinued T AB PO January 17, 2022 12:00am April 25, 2022 11:11am citric acid 66.8 mg/ml / sodium citrate 100 mg/ml oral solution (4 sources) Calculi Dissolution Agent, Anti-coagulant Start: 05-09-2023 End: 05-09-2023 citric acid-sodium citrate (Bicitra) solution 30 mL Start: 05-09-2023 End: 05-09-2023 citric acid-sodium citrate ( Bicitra) 500-334 MG/5ML solution - Pyxis ADS Override Pull cyclobenzaprine hydrochloride 10 mg oral tablet (6 sources) Muscle Relaxant Start: 12-26-2022 End: 12-29-2022 cyclobenzaprine (Flexeril) tablet 10 mg Start: 12-02-2018 End: 05-09-2020 take 1 tablet by mouth three times daily Cyclobenzaprine [Flexeril] 1 TAB PO THREE TIMES A DAY December 02, 2018 May 09, 2020 Discontinued cyproheptadine hydrochloride 4 mg oral tablet (2 sources) Start: 09-12-2022 End: 02-26-2023 cyproheptadine (PERIACTIN) 4 mg tablet May take one by mouth every 8 hours as needed. 30 tablet 3 09/12/2022 02/26/2023 Discontinued Comment on above: May take one by mout h every 8 hours as needed. Depression Medicine (2 sources) Start: 02-27-2017 End: 02-28-2017 take 1 tablet by mouth once daily Depression Medicine 1 TAB PO DAILY February 27, 2017 February 28, 2017 Discontinued Start: 02-27-2017 End: 02-28-2017 take 1 tablet by mouth once daily Depression Medicine 1 TAB PO DAILY February 27, 2017 Discontinued 1 ml dexamethasone phosphate 4 mg/ml injection (4 sources) Corticosteroid Start: 08-21-2024 End: 08-22-2024 4 mg, INTRAVENOUS, ONCE, 1 dose, On Sun08/22/24 at 0930, Administer over 5 minutes. Start: 08-20-2024 End: 08-20-2024 4 mg, INTRAVENOUS, ONCE, 1 d ose, On Sun08/20/24 at 0900, Administer over 5 minutes. Start: 05-09-2023 End: 05-09-2023 dexAMETHasone (PF) (Decadron ) injection ezdKNTROownwi-orvoohhpzld-ty inephrine (TAP) syringe (1 source) Start: 05-09-2023 End: 05-09-2023 ejuLGTSBosvzr-ertydecanei-af inephrine (TAP) syringe dicyclomine hydrochloride 20 mg oral tablet (2 sources) A n t i c h o l i n e r g i c Start: 02-03-2016 End: 03-14-2016 t a k e 2 0 m g b y m o u t h t h r e e t i m e s d a i l y Dicyclomine [Bentyl *] 20 MG PO THREE TIMES A DAY February 03, 2016 March 14, 2016 Discontinued docusate sodium 50 mg / jazmin osides, chcf 8.6 mg oral tablet (2 sources) Start: 12-27-2022 End: 12-29-2022 senna-docusate sodium (Senok ot-S) 8.6-50 MG tablet 2 tablet 0.5 ml dulaglutide 3 mg/ml auto-injector (5 sources) G L P - 1 R e c e p t o r A g o n i s t Start: 06-24-2024 End: 09-17-2024 Dulaglutide (Trulicity) 1.5 mg/0.5 mL pen injector Discontinued 1.5 mg SC EVERY WEEK June 24, 2024 12:00am September 17, 2024 5:34pm 0.8 ml enoxaparin sodium 100 mg/ml prefilled syringe (20 sources) L o w M o l e c u l a r W e i g h t H e p a r i n Start: 05-09-2023 End: 05-12-2023 i n j e c t 8 0 m g b y s u b c u t a n e o u s i n j e c t i o n o n c e d a i l y 80 mg, SubCUTAneous, Daily, First dose on Sun05/09/23 at 1500, Indication of Use: Prophylaxis-DVT/PE Start: 10-05-2022 inject 0.4 mL by sub cutaneous injection once daily Enoxaparin Sodium (LOVENOX) SQ Inject 0.4 mL (40 mg) into the skin daily 30 Each 8 10/05/2022 Active Start: 09-12-2022 End: 08-29-2023 inject 1.502 mL by subcutaneous injection once daily enoxaparin (LOVENOX) 30 mg/0.3 mL injection Inject 1.502 mL subcutaneously once daily. 0 09/12/2022 08/29/2023 Discontinued (Course of therapy completed) Start: 03-29-2021 End: 11-20-2023 Enoxaparin (Lovenox) 40 mg/0 .4 mL Syringe Discontinued 40 mg SC DAILY October 21, 2022 1:00am November 20, 2023 10:05am Comment on above: Inject 1.502 mL subc utaneously once daily. 1 ml ePHEDrine sulfate 50 mg/ml injection (1 source) alpha-Adrenergic Agonist, beta-Adrenergic Agonist, Norepinephrine Releasing Agent Start: 05-09-2023 End: 05-09-2023 ePHEDrine injection 10 ml EPINEPHrine 0.005 mg/ml / lidocaine hydrochloride 20 mg/ml injection (2 sources) Antiarrhythmic, alpha-Adrenergic Agonist, beta-Adrenergic Agonist, Catecholamine, Amide Local Anesthetic Start: 05-09-2023 End: 05-09-2023 lidocaine-EPINEPHrin e (Xylocaine W/EPI) 2 %-[id number] injection Start: 05-08-2023 End: 05-08-2023 lidocaine-EPINEPHrine (Xyloc rena W/EPI) 1.5 %-1:[id number] injection escitalopram 10 mg oral tablet (2 sources) Serotonin Reuptake Inhibitor Start: 02-28-2017 End: 03-16-2017 take 10 mg by mouth once daily Escitalopram Oxalate [Lexapro] 10 MG PO DAILY February 28, 2017 March 15, 2017 Discontinued famotidine 20 mg oral tablet (20 sources) Histamine-2 Receptor Antagonist Start: 05-09-2023 End: 05-12-2023 take 1 tablet by mouth every twenty-four hours as needed for gastroesophageal reflux disease 20 mg, Oral, Daily PRN, indigestion, heartburn, Starting on Sun05/09/23 at 0500, Renal dose per pharmacy for peptic ulcer prophylaxis.&nbsp ; Start: 12-26-2022 End: 12-29-2022 famotidine (Pepcid) tablet 2 0 mg Start: 07-11-2021 End: 08-29-2023 take 1 tablet by mouth once daily famotidine (PEPCID) 40 mg tablet Take 40 mg by mouth once daily. 0 07/11/2021 08/29/2023 Discontinued (Course of therapy completed) Start: 02-19-2018 End: 12-03-2018 take 20 mg by mouth once daily Famotidine [Pepcid] 20 MG PO DAILY February 19, 2018 December 02, 2018 Discontinued End: 05-12-2023 take 2 tablets by mouth once daily famotidine (Pepcid) 10 MG tablet Take 20 mg by mouth Nightly. 0 05/12/2023 Discontinued (Stop taking at discharge) Comment on above: Take 40 mg by mouth once daily. 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 0 11/23/2023 Discontinued (Course of therapy completed) Folic Acid 400 M CG Oral Tablet Quantity: 0 Refills: 0 Ordered: 06-Jul-2019 DO Active Comment on above: Take 400 mcg by mout h once daily. Take 400 mcg by mout h daily at bedtime. HYDROmorphone (Dilaudid) injection 0.25 mg (2 sources) Start: 05-09-2023 End: 05-12-2023 HYDROmorphone (Dilaudid) injection 0.25 mg hydrOXYzine pamoate 25 mg oral capsule (2 sources) Antihistamine Start: 05-08-2023 End: 05-08-2023 hydrOXYzine pamoate (Vistaril) capsule 25 mg Start: 05-08-2023 End: 05-08-2023 hydrOXYzine pamoate (Vistari l) capsule 25 mg ibuprofen 600 mg oral tablet (7 sources) Nonsteroidal Anti-inflammatory Drug Start: 01-06-2025 End: 04-29-2025 take 600 mg by mouth once at mealtime as needed for pain 600 mg, oral, Once, On Sun01/06/25 at 1200, For 1 dose, May administer with food to reduce GI upset., If ordered PRN for pain, nurse is permitted to administer this medication for higher pain scores based on patient preference? Yes Start: 05-09-2023 End: 06-03-2023 take 1 tablet by mouth every six hours ibuprofen 600 MG tablet Take 1 tablet (600 mg) by mouth in the morning and 1 tablet (600 mg) at noon and 1 tablet (600 mg) in the evening and 1 tablet (600 mg) before bedtime. Do all this for 23 days. 90 tablet 0 05/11/2023 06/03/2023 Active Start: 06-10-2020 End: 05-15-2023 take 800 mg by mouth every eight hours as needed for pain Ibuprofen [Motrin] 800 MG PO Q8H PRN For Pain June 10, 2020 May 15, 2023 Discontinued insulin isophane, human 100 unt/ml injectable suspension (3 sources) End: 05-12-2023 insulin NPH, Isophane, (HumuLIN N,NovoLIN N) 100 UNIT/ML injection Inject 22 Units under the skin Nightly. 0 05/12/2023 Discontinued (Stop taking at discharge) 1 ml ketorolac tromethamine 30 mg/ml cartridge (6 sources) Nonsteroidal Anti-inflammatory Drug, Cyclooxygenase Inhibitor Start: 05-09-2023 End: 05-10-2023 take 30 mg intravenously every six hours 30 mg, IntraVENous, Every 6 hours, First dose on Sun05/09/23 at 0515, For 4 doses, This may be discontinued prior to 4 doses if patient pain is well controlled and able to take PO ibuprofen. Start: 05-09-2023 End: 05-09-2023 inject 60 mg by intramuscular injection once 60 mg, IntraMUSCular, Once, On Sun05/09/23 at 0300, For 1 dose, Post-Delivery Postop in recovery room Start: 05-09-2023 End: 05-09-2023 ketorolac (Toradol) 60 MG/2M L injection - Pyxis ADS Override Pull labetalol hydrochloride 200 mg oral tablet (20 sources) beta-Adrenergic Sergo Start: 12-24-2022 End: 11-20-2023 Labetalol 200 mg tablet Discontinued 200 mg April 10, 2023 12:00am November 20, 2023 10:05am Start: 12-05-2022 End: 01-04-2023 take 1 tablet by mouth every twelve hours labetalol (Normodyne) 100 MG tablet Take 100 mg by mouth in the morning and 100 mg in the evening. 0 12/05/2022 12/24/2022 Discontinued (Entered in error) End: 12-24-2022 take 1 tablet by mouth twice daily labetalol (Normodyne) 200 MG tablet Indications: Hypertension Take 200 mg by mouth 2 times daily. 0 12/24/2022 Discontinued (Stop taking at discharge) Comment on above: Take 200 mg by mouth three times daily. lanolin 1000 mg/ml topical cream (2 sources) Start: 3 End: 3 Topical, Every 1 hour PRN, dry skin, nipple discomfort, Starting on Sun05/09/23 at 0500, Apply to affected area letrozole 2.5 mg oral tablet (13 sources) Aromatase Inhibitor Start: 0 take 1 tablet by mouth once daily Letrozole 2.5 MG Oral Tablet Take 1 tablet daily cycle days 3-7. MUST HAVE NEGATIVE TEST BEFORE TAKING FIRST TABLET EACH CYCLE. Quantity: 5 Refills: 3 Ordered: 20-Jul-2020 Umair Sepulveda MD Start : 20-Jul-2020 Active levETIRAcetam 1000 mg oral tablet (4 sources) Start: 6 End: 7 take 1000 mg by mouth at bedtime Levetiracetam [Keppra] 1000 MG PO AT BEDTIME March 14, 2016 February 27, 2017 Discontinued Start: 02-03-2016 End: 07-10-2016 take 500 mg by mouth once daily in the morning Levetiracetam [Keppra] 500 MG PO EVERY MORNING February 03, 2016 July 10, 2016 Discontinued lidocaine 0.04 mg/mg medicated patch (3 sources) Antiarrhythmic, Amide Local Anesthetic Start: 05-10-2023 End: 05-12-2023 Lidocaine 4 % patch 1 patch Start: 02-27-2023 End: 02-27-2023 lidocaine 10 mg/mL (1 %) 60 mg injection (XYLOCAINE) magnesium oxide 400 mg oral tablet (20 sources) Start: 12-26-2022 End: 05-12-2023 take 400 mg by mouth once daily 400 mg, Oral, Daily, First dose on Sun05/09/23 at 0900 Start: 05-24-2017 magnesium oxid e 400 mg cap Take 400 mg by mouth. 05/24/2017 Active magnesium oxide (MAG-OX) 400 mg (241.3 mg magnesium) tablet Take by mouth. Active 100 ml magnesium sulfate 10 mg/ml injection (12 sources) Start: 03-10-2025 End: 03-12-2025 1 g, INTRAVENOUS, at 100-200 mL/hr, Administer over 0.5-1 Hours, ONCE, 1 dose, On Tonya 03/12/25 at 1030, Magnesium sulfate iv bolus will be infused at a rate of 1 gram/hr The following nursing units may administer 2 g dose over 1 hour if necessary: ICUs/PACU/ED, Adult Hematology/Oncology, Labor and Delivery, Cardiac Stepdown, Headache Clinic If necessary, a magnesium sulfate bolus may be administered greater than 2 g/hr for the following indications: Adult and Pediatric Asthma Exacerbations, Torsade de Pointes, Pediatric BMT and Hematology/Oncology, Eclampsia or Preeclampsia Start: 08-20-2024 End: 08-22-2024 1 g, INTRAVENOUS, at 100-200 mL/hr, Administer over 0.5-1 Hours, ONCE, 1 dose, On Sun08/22/24 at 0930, Magnesium sulfate iv bolus will be infused at a rate of 1 gram/hr The following nursing units may administer 2 g dose over 1 hour if necessary: ICUs/PACU/ED, Adult Hematology/Oncology, Labor and Delivery, Cardiac Stepdown, Headache Clinic If necessary, a magnesium sulfate bolus may be administered greater than 2 g/hr for the following indications: Adult and Pediatric Asthma Exacerbations, Torsade de Pointes, Pediatric BMT and Hematology/Oncology, Eclampsia or Preeclampsia melatonin 5 mg oral tablet (5 sources) Start: 12-29-2022 End: 12-29-2022 melatonin tablet 5 mg Start: 08-09-2017 End: 12-03-2018 take 5 mg by mouth at bedtime Melatonin 5 MG PO AT BED TIME August 09, 2017 December 02, 2018 Discontinued melatonin 3 mg T ab Take by mouth. Active metFORMIN hydrochloride 1000 mg oral tablet (20 sources) Biguanide Start: 04-10-2023 End: 11-20-2023 Metformin 1,000 mg tablet Discontinued 2000 mg April 10, 2023 12:00am November 20, 2023 10:05am Start: 04-10-2023 End: 11-20-2023 Metformin Discontinued 2000 MG April 10, 2023 12:00am November 20, 2023 10:05am Start: 06-09-2022 take 1000 mg by mout h twice daily Metformin Active 1000 MG PO TWICE A DAY June 08, 2022 11:00pm Start: 01-17-2022 End: 06-09-2022 take 1 tablet by mouth twice daily Metformin 500 mg tablet extended release 24 hr Discontinued 500 mg PO TWICE A DAY January 17, 2022 9:10am June 09, 2022 8:13am Start: 08-15-2021 End: 05-15-2023 take 1000 mg by mouth once daily Metformin [Glucophage] 1000 MG PO DAILY August 15, 2021 May 15, 2023 Discontinued Start: 06-15-2021 End: 01-17-2022 take 5 tablets by mouth twice daily Metformin 500 mg tablet extended release 24 hr Discontinued 100 mg PO TWICE A DAY June 15, 2021 12:00am January 17, 2022 9:14am Start: 06-15-2021 End: 01-17-2022 take 100 mg by mouth twice daily Metformin Discontinued 100 MG PO TWICE A DAY June 15, 2021 12:00am January 17, 2022 9:14am Start: 10-29-2020 metFORMIN 500 mg oral tablet (IR) Dose : 500 mg = 1 tab(s), Oral, qDay, # 30 tab(s), 0 Refill(s) Start Date: 10/29/20 Status: Ordered Start: 05-09-2020 End: 08-15-2021 take 2500 mg by mouth once daily Metformin [Glucophage] 2500 MG PO DAILY May 09, 2020 August 15, 2021 Discontinued Start: 09-15-2019 End: 02-26-2023 take 1 tablet by mouth twice daily metFORMIN ER (GLUCOPHAGE XR) 500 mg 24 hr tablet Take 1,000 mg by mouth twice daily. 0 09/15/2019 02/26/2023 Discontinued Start: 09-15-2019 take 5 tablets by mo uth every twenty-four hours at bedtime metFORMIN HCl ER 500 MG Oral Tablet Extended Release 24 Hour TAKE 5 TABLETS BY MOUTH AT BEDTIME DIRECTED BY YOUR PHYSICIAN Quantity: 1 Refills: 3 Ordered: 27-Jan-2021 Umair Chamorro MD Start : 23-Jun-2020 Active Start: 09-15-2019 take 1 tablet by carmen th once daily at dinner metFORMIN ER (GLUCOPHAGE XR) 500 mg 24 hr tablet Take 1,000 mg by mouth daily with dinner. 0 09/15/2019 Active End: 05-12-2023 take 4 tablets by mouth in the morning metFORMIN (Glucophage) 500 MG tablet Take 2,000 mg by mouth in the morning and 2,000 mg in the evening. 0 05/12/2023 Discontinued (Stop taking at discharge) take 3 tablets by mouth once met FORMIN (Glucophage) 500 MG tablet Take 1,500 mg by mouth Once. 0 Active take 1 tablet by mouth once metF ORMIN (Glucophage) 500 MG tablet Take 500 mg by mouth Once. 0 Active metFORMIN HCl - 1000 MG Oral Tablet Refills: 0 DO Active Comment on above: Take 1,000 mg by carmen th daily with dinner. Take 1,000 mg by carmen th twice daily. methocarbamol 500 mg oral tablet (11 sources) Muscle Relaxant Start: 5 End: 5 take 1 tablet by mouth every six hours as needed for pain Methocarbamol 500 mg tablet Discontinued 500 mg PO EVERY 6 HOURS as needed for pain September 17, 2024 1:00am January 11, 2025 2:11pm Start: 08-22-2024 End: 02-09-2025 methocarbamol (ROBAXIN) 500 mg tablet Indications: Status migrainosus Take 1 tablet (500 mg) by mouth four times a day until headache free for 24 hours or take for full 5 days. 20 tablet 08/22/2024 02/09/2025 Discontinued (Course of therapy completed) methocarbamol iv infusion 1, 000 mg in NaCl 0.9% 100 mL (ROBAXIN) (6 sources) Start: 03-12-2025 End: 03-12-2025 1,000 mg, INTRAVENOUS, Administer over 30 Minutes, ONCE, 1 dose, On Tonya 03/12/25 at 1030, Administer IV while in recumbent position. Maintain position for at least 10-15 minutes following infusion. Start: 03-11-2025 End: 03-11-2025 1,000 mg, INTRAVENOUS, Admin ister over 30 Minutes, ONCE, 1 dose, On Sun03/11/25 at 1030, Administer IV while in recumbent position. Maintain position for at least 10-15 minutes following infusion. Start: 03-10-2025 End: 03-10-2025 1,000 mg, INTRAVENOUS, Admin ister over 30 Minutes, ONCE, 1 dose, On Sun03/10/25 at 1030, Administer IV while in recumbent position. Maintain position for at least 10-15 minutes following infusion. Start: 08-22-2024 End: 08-22-2024 1,000 mg, INTRAVENOUS, Admin ister over 30 Minutes, ONCE, 1 dose, On Sun08/22/24 at 0930, Administer IV while in recumbent position. Maintain position for at least 10-15 minutes following infusion. Start: 08-21-2024 End: 08-21-2024 1,000 mg, INTRAVENOUS, Admin ister over 30 Minutes, ONCE, 1 dose, On Sun08/21/24 at 0930, Administer IV while in recumbent position. Maintain position for at least 10-15 minutes following infusion. Start: 08-20-2024 End: 08-20-2024 1,000 mg, INTRAVENOUS, Admin ister over 30 Minutes, ONCE, 1 dose, On Sun08/20/24 at 0900, Administer IV while in recumbent position. Maintain position for at least 10-15 minutes following infusion. methylPREDNISolone 125 mg injection (4 sources) Corticosteroid Start: 12-27-2022 End: 12-29-2022 take 125 mg intravenously every eight hours as needed methylPREDNISolone sodium succinate (PF) (SOLU-Medrol) injection 125 mg 2 ml metoclopramide 5 mg/ml prefilled syringe (2 sources) Dopamine-2 Receptor Antagonist Start: 12-26-2022 End: 12-26-2022 metoclopramide (Reglan) injection 10 mg miSOPROStol (Cytotec) split tablet 25 mcg (2 sources) Start: 05-07-2023 End: 05-09-2023 take 1 tablet by mouth every four hours miSOPROStol (Cytotec) split tablet 25 mcg 2 ml morphine sulfate 0.5 mg/ml injection (1 source) Opioid Agonist Start: 05-09-2023 End: 05-09-2023 morphine PF (Duramorph) 0.5 MG/ML injection Multivitamin preparation (2 sources) Start: 07-10-2016 End: 08-09-2017 take 1 capsule by mouth once daily Multivitamin [Multivitamin *] 1 CAP PO DAILY July 10, 2016 August 09, 2017 Discontinued Start: 07-10-2016 End: 08-09-2017 take 1 capsule by mouth once daily Multivitamin 1 CAP PO DAILY July 10, 2016 Discontinued naproxen 500 mg oral tablet (20 sources) Nonsteroidal Anti-inflammatory Drug Start: 11-23-2023 End: 06-24-2024 take 1 tablet by mouth twice daily as needed for pain Naproxen 500 mg tablet Discontinued 500 mg PO TWICE A DAY as needed for pain 20 March 06, 2024 12:00am June 24, 2024 9:18pm Start: 11-23-2023 take 1 tablet by carmen th every twelve hours naproxen (Naprosyn) 500 mg tablet Take 1 tablet (500 mg) by mouth every 12 hours if needed. 11/23/2023 Active Start: 06-15-2021 take 500 mg by mouth twice lori ly Naproxen Active 500 MG PO TWICE A DAY June 14, 2021 11:00pm Start: 12-02-2018 End: 05-09-2020 take 1 tablet by mouth every twelve hours as needed Naproxen [Naprosyn] 1 TAB PO EVERY 12 HOURS NEEDED PRN December 02, 2018 May 09, 2020 Discontinued Start: 12-21-2017 End: 09-12-2022 take 1 tablet by mouth three times daily as needed for headache Naproxen Sodium 550 mg tablet 1 po TID prn headache. Max 10 days a month 90 tablet 3 12/21/2017 09/12/2022 Discontinued Start: 05-24-2017 naproxen (NAPR OSYN) 500 MG tablet Take 500 mg by mouth. 05/24/2017 Active Comment on above: 1 po TID prn headach e. Max 10 days a month Take 1 tablet by carmen th two times a day as needed for pain. norethindrone acetate 5 mg oral tablet (17 sources) Start: End: take 1 tablet by mouth once daily, then take 1 tablet by mouth once daily, then take 1 tablet by mouth once daily Norethindrone Acetate 5 mg tablet Discontinued 5 mg PO September 17, 2024 1:00am November 18, 2024 10:01am orally; 1 tablet 3x day until bleeding stops. 1 tablet 2x a day for 2day 1 tablet daily for 5 days omeprazole 40 mg delayed release oral capsule (18 sources) Proton Pump Inhibitor Start: 2 End: 3 take 1 capsule by mouth once daily omeprazole (PRILOSEC) 40 mg capsule Take 40 mg by mouth once daily. 0 01/06/2022 02/26/2023 Discontinued Start: 02-27-2017 End: 05-09-2020 omeprazole (PRILOSEC) 40 MG capsule Comment on above: Take 40 mg by mouth once daily. 2 ml ondansetron 2 mg/ml injection (20 sources) Serotonin-3 Receptor Antagonist Start: 03-12-2025 End: 03-12-2025 8 mg, INTRAVENOUS, EVERY 1 HOUR NEEDED, 2 doses, Starting on Tonya 03/12/25 at 1010, Until Tonya 03/12/25 at 1425, Nausea/Vomiting - First Line - Parenteral Start: 03-10-2025 End: 03-10-2025 8 mg, INTRAVENOUS, EVERY 1 H OUR NEEDED, 2 doses, Starting on Sun03/10/25 at 1027, Until Sun03/10/25 at 1637, Nausea/Vomiting - First Line - Parenteral Start: 09-17-2024 take 1 tablet by [facility] every twelve hours as needed for nausea and vomiting Ondansetron Hcl 8 mg tablet Active 8 mg PO Q12H as needed for nausea and vomiting September 17, 2024 1:00am Start: 11-23-2023 ondansetron (Z OFRAN) 8 mg tablet FOR NAUSEA. Take on at onset of nausea or migraine,may repeat dose in 8 hours if needed. 20 tablet 4 11/23/2023 Active Start: 05-07-2023 End: 05-09-2023 take 4 mg intravenously every six hours as needed for nausea ondansetron (Zofran) injection 4 mg Start: 03-01-2022 End: 08-29-2023 ondansetron (ZOFRAN) 8 mg ta blet FOR NAUSEA. Take on at onset of nausea or migraine,may repeat dose in 8 hours if needed. 30 tablet 4 03/01/2022 08/29/2023 Discontinued (Course of therapy completed) Start: 04-12-2021 take 1 tablet by carmen th every six hours Ondansetron HCl - 4 MG Oral Tablet TAKE 1 TABLET Every 6 hours PRN nausea/vomiting Quantity: 30 Refills: 0 Ordered: 12-Apr-2021 Hailey Watson MD Start : 12-Apr-2021 Active Start: 02-27-2017 End: 12-03-2018 take 4 mg by mouth four times daily as needed Ondansetron Hcl [Zofran] 4 MG PO FOUR TIMES A DAY NEEDED PRN February 27, 2017 December 02, 2018 Discontinued Comment on above: FOR NAUSEA. Take on at onset of nausea or migraine,may repeat dose in 8 hours if needed. ondansetron ODT (Zofran-ODT) disintegrating tablet 4 mg (4 sources) Start: End: take 1 tablet by mouth every eight hours as needed for nausea and vomiting ondansetron ODT (Zofran-ODT) disintegrating tablet 4 mg Start: 12-26-2022 End: 12-29-2022 take 1 tablet by mouth every eight hours as needed for nausea and vomiting ondansetron ODT (Zofran-ODT) disintegrating tablet 4 mg oxytocin (Pitocin) 30 units in 500 mL infusion (9 sources) Start: 05-09-2023 End: 05-12-2023 oxytocin (Pitocin) 30 units in 500 mL infusion Start: 05-08-2023 End: 05-09-2023 oxytocin (Pitocin) 30 units in 500 mL infusion Start: 05-07-2023 End: 05-12-2023 oxytocin (Pitocin) 30 units in 500 mL infusion phenazopyridine hydrochloride 100 mg oral tablet (5 sources) Start: 05-09-2020 End: 06-11-2020 take 200 mg by mouth three times daily Phenazopyridine Hcl [Pyridium 100 Mg] 200 MG PO THREE TIMES A DAY May 09, 2020 June 10, 2020 Discontinued Start: 11-11-2016 take 1 tablet by carmen th three times daily as needed for pain Pyridium 200 MG Oral Tablet TAKE 1 TABLET 3 TIMES DAILY NEEDED FOR PAIN. Quantity: 6 Refills: 0 Shenpetros THAPA Mai Start : 11-Nov-2016 Active predniSONE 20 mg oral tablet (10 sources) Corticosteroid Start: 09-17-2024 End: 11-18-2024 take 2 tablets by mouth once daily Prednisone 20 mg tablet Discontinued 40 mg PO DAILY 10 5 0 September 17, 2024 1:00am November 18, 2024 10:29am Start: 12-29-2022 End: 01-08-2023 take 5 tablets by mouth once daily, then take 4 tablets by mouth once daily, then take 3 tablets by mouth once daily, then take 2 tablets by mouth once daily, then take 1 tablet by mouth once daily predniSONE (Deltasone) 5 MG tablet Take 5 tabs (25 mg) by mouth daily for 2 days, then 4 tabs (20 mg) daily for 2 days, then 3 tabs (15 mg) daily for 2 days, then 2 tabs (10 mg) daily for 2 days, then 1 tab (5 mg) daily for 2 days. 30 tablet 0 12/29/2022 01/08/2023 Active Start: 12-29-2022 End: 12-29-2022 predniSONE (Deltasone) table t 40 mg Start: 06-07-2018 predniSONE (DE LTASONE) 10 MG tablet Take 2 tablets once daily for 5 days and stop. 10 tablet 0 06/07/2018 Active 19 chewable tablet (2 sources) Start: 12-26-2022 End: 12-29-2022 19 chewable tablet Multivitamins & Min er (1 source) Start: 08-09-2017 End: 12-03-2018 Multivitamins & Min er 1 CHW PO August 09, 2017 Discontinued Multivitamins & Min er [ Adult Gummy/Dha/ 0.4-25 Mg] (1 source) Start: 08-09-2017 End: 12-03-2018 Multivitamins & Min er [ Adult Gummy/Dha/ 0.4-25 Mg] 1 CHW PO August 09, 2017 December 02, 2018 Discontinued TABS (6 sources) TABS Re fills: 0 DO Active TABS Re fills: 0 Active TABS (15 sources) TABS Quantity: 0 Refills: 0 Ordered: 06-Jul-2019 DO Active vitamin tablet (2 sources) Start: 05-09-2023 End: 05-12-2023 take 1 tablet by mouth once daily 1 tablet, Oral, Daily, First dose on Sun05/09/23 at 0900, Begin when normal bowel activity resumes. progesterone 200 mg oral capsule (20 sources) Progesterone Start: 10-21-2022 End: 12-05-2022 Progesterone Micronized 200 mg capsule Discontinued 400 mg VAGINAL TWICE A DAY October 21, 2022 1:00am December 05, 2022 9:32am Start: 10-21-2022 End: 12-05-2022 Progesterone Micronized Disc ontinued 400 MG VAGINAL TWICE A DAY October 21, 2022 1:00am December 05, 2022 9:32am Start: 10-09-2022 End: 04-07-2023 Progesterone 200 MG CAPS Lenin ce 400 mg vaginally 2 times daily for 180 days 7-36 weeks (PTL). 120 Capsule 3 10/09/2022 04/07/2023 Active Start: 03-20-2022 Progesterone 2 00 MG Oral Capsule Insert one capsule per vagina twice daily as directed. Quantity: 60 Refills: 3 Ordered: 20-Mar-2022 Kemi Alexis Start : 20-Mar-2022 Active Start: 07-30-2020 Progesterone M icronized 200 MG CAPS Insert one capsule per vagina twice daily as directed. Quantity: 60 Refills: 3 Ordered: 30-Jul-2020 Umair Sepulveda MD Start : 30-Jul-2020 Active 200 ml ropivacaine hydrochloride 2 mg/ml injection (1 source) Amide Local Anesthetic Start: 05-08-2023 End: 05-09-2023 ropivacaine (Naropin) 0.2 % injection simethicone 80 mg chewable tablet (2 sources) Start: 05-09-2023 End: 05-12-2023 take 1 tablet by mouth every six hours as needed 80 mg, Oral, Every 6 hours PRN, flatulence, cramping, Starting on Sun05/09/23 at 0500, 10 ml sodium bicarbonate 42 mg/ml injection (1 source) Start: 05-09-2023 End: 05-09-2023 sodium bicarbonate 4.2 % injection 1000 ml sodium chloride 9 mg/ml injection (15 sources) Start: 03-10-2025 End: 03-12-2025 1,000 mL, INTRAVENOUS, at 999 mL/hr, Administer over 1 Hours, ONCE, 1 dose, On Tonya 03/12/25 at 1030 Start: 05-09-2023 End: 05-12-2023 take 1 dose intravenously twice daily 5-40 mL, IntraVENous, Every 12 hours scheduled (2 times per day), First dose on Sun05/09/23 at 0900, or Line Patency: Peripheral IV = 5 mL; Midline or Central Line = 10 mL/lumen. If following IV push medication, administer flush at same rate as the IV push. Flush volume is determined by type of infusion therapy being given. For non-viscous solutions use: Peripheral IV = 5 mL Midline or Central Line = 10 mL/lumen For viscous solutions (i.e. blood components, parenteral nutrition, contrast media, or after obtaining blood sample) use: Peripheral IV = 10 mL Midline or Central Line = 20 mL/lumen Start: 05-09-2023 End: 05-12-2023 5-250 mL/hr, IntraVENous, ND N, if patient receiving piggyback infusions and maintenance fluids are not ordered OR KVO fluids to protect IV site / prevent frequent line interruptions/ long duration, Starting on Sun05/09/23 at 0500, For piggyback infusion, administer at same rate as piggyback for a total of 25 mL. Enter 25 mL into dose field and piggyback rate into rate field of order. If piggyback is infusing at a rate less than 100 mL/hr, enter 25 mL into dose field and 100 mL/hr into rate field of order. For KVO fluids, enter rate of 20 mL/hr or less into rate field of order. Start: 05-09-2023 End: 05-12-2023 take 5-40 mL intravenously once as needed 5-40 mL, IntraVENous, PRN, line care, After every IV line use, Starting on Sun05/09/23 at 0500, or Line Patency: Peripheral IV = 5 mL; Midline or Central Line = 10 mL/lumen. If following IV push medication, administer flush at same rate as the IV push. Flush volume is determined by type of infusion therapy being given. For non-viscous solutions use: Peripheral IV = 5 mL Midline or Central Line = 10 mL/lumen For viscous solutions (i.e. blood components, parenteral nutrition, contrast media, or after obtaining blood sample) use: Peripheral IV = 10 mL Midline or Central Line = 20 mL/lumen Start: 12-26-2022 End: 12-29-2022 10 mL, IntraVENous, Every 12 hours scheduled (2 times per day), First dose on Sun12/26/22 at 2100 Start: 12-26-2022 End: 12-29-2022 5-250 mL/hr, IntraVENous, ND N, if patient receiving piggyback infusions and maintenance fluids are not ordered OR KVO fluids to protect IV site / prevent frequent line interruptions/ long duration, Starting on Sun12/26/22 at 1637 For piggyback infusion, administer at same rate as piggyback for a total of 25 mL. Enter 25 mL into dose field and piggyback rate into rate field of order. If piggyback is infusing at a rate less than 100 mL/hr, enter 25 mL into dose field and 100 mL/hr into rate field of order. For KVO fluids, enter rate of 20 mL/hr or less into rate field of order. Start: 12-26-2022 End: 12-29-2022 take 10 mL intravenously once 10 mL, IntraVENous, PRN, line care, Starting on Sun12/26/22 at 1637 After every IV line use sucralfate 1000 mg oral tablet (5 sources) Aluminum Complex Start: 05-17-2017 End: 12-03-2018 take 1 g by mouth twice daily as needed Sucralfate [Carafate] 1 GM PO TWICE A DAY PRN May 17, 2017 December 02, 2018 Discontinued Start: 02-27-2017 End: 03-16-2017 take 1 g by mouth four times daily as needed Sucralfate [Carafate] 1 GM PO FOUR TIMES A DAY PRN February 27, 2017 March 15, 2017 Discontinued sulfamethoxazole 800 mg / trimethoprim 160 mg oral tablet (3 sources) Dihydrofolate Reductase Inhibitor Antibacterial, Sulfonamide Antimicrobial Start: 11-11-2016 take 1 tablet by mouth twice daily Sulfamethoxazole-Trimethoprim 800-160 MG Oral Tablet TAKE 1 TABLET TWICE DAILY. Quantity: 6 Refills: 0 Shen DO, Lettiia Start : 11-Nov-2016 Active topiramate 50 mg oral tablet (4 sources) Start: 03-14-2016 End: 07-10-2016 take 50 mg by mouth at bedtime Topiramate [Topamax] 50 MG PO AT BEDTIME March 14, 2016 July 10, 2016 Discontinued Start: 02-03-2016 End: 07-10-2016 take 25 mg by mouth once daily in the morning Topiramate [Topamax] 25 MG PO EVERY MORNING February 03, 2016 July 10, 2016 Discontinued Vitamin B12 TABS (15 sources) Vitamin B12 TABS Quantity: 0 Refills: 0 Ordered: 06-Jul-2019 DO Active Vitamin C TABS (15 sources) Vitamin C TABS Q uantity: 0 Refills: 0 Ordered: 06-Jul-2019 DO Active Zonigram. (2 sources) Start: 07-10-2016 End: 02-27-2017 take 200 mg by mouth at bedtime Zonigram. 200 MG PO AT BEDTIME July 10, 2016 February 27, 2017 Discontinued Start: 07-10-2016 End: 02-27-2017 take 200 mg by mouth at bedtime Zonigram. 200 MG PO AT BEDTIME July 10, 2016 Discontinued Problems Active Problems Problem Classification Problem Date Documented Da te Episodic/Chronic Abdominal pain (20 sources) Abdominal pain; Translations: [Unspecified abdominal pain] Onset: 3 09-22-2022 Episodic Asthma (20 sources) Mild intermittent asthma, uncomplicated; Translations: [Uncomplicated asthma] Onset: 7 10-06-2022 Chronic Blindness and vision defects (13 sources) Eye / vision finding; Translations: [Unspecified visual disturbance] Onset: 5 02-25-2025 Episodic Cardiac dysrhythmias (20 sources) Ventricular tachycardia; Translations: [Ventricular tachycardia] Onset: 8 Resolved: 3 Chronic Cardiac dysrhythmias (20 sources) Palpitations; Translations: [Palpitations] Onset: 4 Episodic Diabetes mellitus without complication (17 sources) Diabetes mellitus without complication; Translations: [Diabetes mellitus without mention of complication, type II or unspecified type, not stated as uncontrolled] Chronic Diabetes or abnormal glucose tolerance complicating ; childbirth; or the puerperium (20 sources) Gestational diabetes mellitus; Translations: [Abnormal glucose tolerance of mother, unspecified as to episode of care or not applicable] 08-29-2023 Episodic Ectopic (9 sources) Tubal ; Translations: [Tubal without intrauterine ] Episodic Esophageal disorders (20 sources) Gastro-esophageal reflux disease without esophagitis; Translations: [Gastroesophageal reflux disease] Onset: 7 06-24-2022 Chronic Essential hypertension (20 sources) Benign hypertension; Translations: [Essential (primary) hypertension] Onset: 3 Chronic Female infertility (19 sources) Female infertility; Translations: [Female infertility, unspecified] Onset: 9 10-06-2022 Chronic Fluid and electrolyte disorders (16 sources) Hypokalemia; Translations: [Hypokalemia] 08-29-2022 Episodic Genitourinary symptoms and ill-defined conditions (20 sources) Increased frequency of urination; Translations: [Urinary frequency] Episodic Headache, including migraine (20 sources) Hemiplegic migraine, not intractable, without status migrainosus; Translations: [Migraine, unspecified, not intractable, without status migrainosus] Onset: 6 03-14-2016 Chronic Headache; including migraine (2 sources) Headache; Translations: [Headache] Onset: 5 Episodic Headache; including migraine (1 source) Headache; including migraine; Translations: [Headache, unspecified] Onset: 5 Hypertension complicating ; childbirth and the puerperium (5 sources) Chronic hypertension complicating AND/OR reason for care during ; Translations: [Unspecified pre-existing hypertension complicating , unspecified trimester] 10-24-2022 Chronic Immunizations and screening for infectious disease (19 sources) Rubella non-immune ; Translations: [Other specified complications of , antepartum condition or complication] Episodic Malaise and fatigue (20 sources) Left hemiparesis; Translations: [Weakness] Onset: 7 06-24-2022 Episodic Menstrual disorders (20 sources) Amenorrhea; Translations: [Absence of menstruation] 08-29-2023 Chronic Miscellaneous mental health disorders (20 sources) Pain disorder with psychological factor; Translations: [Pain disorder with related psychological factors] Onset: 8 11-06-2017 Chronic Nausea and vomiting (20 sources) Nausea; Translations: [Nausea alone] 10-21-2022 Episodic Nutritional deficiencies (4 sources) Vitamin D deficiency; Translations: [Vitamin D deficiency, unspecified] Onset: 3 11-06-2022 Chronic Other circulatory disease (20 sources) Presence of other cardiac implants and grafts; Translations: [Implantable loop recorder present] Onset: 3 09-28-2022 Chronic Other circulatory disease (1 source) Personal history of other diseases of the circulatory system; Translations: [Status post ablation operation for arrhythmia] Onset: 5 Episodic Other complications of ; puerperium affecting management of mother (2 sources) Other disorders of ; Translations: [Other disorders of , unspecified as to episode of care or not applicable] 05-28-2023 Episodic Other complications of (20 sources) Morbid obesity; Translations: [Obesity complicating , first trimester] Onset: 5 10-24-2022 Chronic Other complications of (20 sources) Complication of , childbirth and/or the puerperium; Translations: [Unspecified complication of , unspecified as to episode of care or not applicable] Onset: 3 10-24-2022 Episodic Other complications of (20 sources) History of recurrent miscarriage - not delivered; Translations: [Recurrent loss, antepartum condition or complication] 10-24-2022 Episodic Other complications of (7 sources) High risk ; Translations: [Supervision of other high risk pregnancies, first trimester] Onset: 3 10-26-2022 Episodic Other complications of (5 sources) Disease of respiratory system complicating ; Translations: [Diseases of the respiratory system complicating , first trimester] Onset: 3 10-06-2022 Episodic Other complications of (5 sources) Heart disease in mother complicating , childbirth AND/OR puerperium; Translations: [Diseases of the circulatory system complicating , first trimester] 10-24-2022 Episodic Other complications of (5 sources) Mental disorder during - baby not yet delivered; Translations: [Other mental disorders complicating , first trimester] 10-06-2022 Episodic Other complications of (5 sources) Endocrine, nutritional and metabolic disease complicating , childbirth and puerperium; Translations: [Endocrine, nutritional and metabolic diseases complicating , first trimester] 10-09-2022 Episodic Other complications of (6 sources) Hypothyroidism in ; Translations: [Endocrine, nutritional and metabolic diseases complicating , unspecified trimester] 10-24-2022 Episodic Other complications of (5 sources) Disease of nervous system complicating , childbirth and puerperium; Translations: [Diseases of the nervous system complicating , first trimester] Onset: 3 10-06-2022 Episodic Other complications of (5 sources) First trimester ; Translations: [Supervision of with history of infertility, first trimester] Onset: 3 11-06-2022 Episodic Other connective tissue disease (1 source) Weakness of face muscles; Translations: [Facial weakness] Episodic Other connective tissue disease (1 source) Muscle weakness of limb; Translations: [Other symptoms and signs involving the musculoskeletal system] Episodic Other connective tissue disease (1 source) Radicular pain; Translations: [Neuralgia and neuritis, unspecified] Episodic Other connective tissue disease (1 source) Muscle weakness of upper limb; Translations: [Other symptoms and signs involving the musculoskeletal system] Episodic Other connective tissue disease (2 sources) Pain of toe of left foot; Translations: [Pain in left toe(s)] 12-15-2023 Episodic Other female genital disorders (12 sources) Abnormal vaginal bleeding; Translations: [Abnormal uterine and vaginal bleeding, unspecified] 10-21-2022 Chronic Other female genital disorders (1 source) Vaginal bleeding; Translations: [Abnormal uterine and vaginal bleeding, unspecified] Chronic Other female genital disorders (2 sources) Abnormal uterine bleeding; Translations: [Abnormal uterine and vaginal bleeding, unspecified] 04-30-2024 Chronic Other female genital disorders (1 source) Abnormal uterine and vaginal bleeding, unspecified; Translations: [Abnormal uterine bleeding] Onset: 4 Chronic Other female genital disorders (20 sources) Vaginal irritation; Translations: [Unspecified noninflammatory disorder of vagina] Episodic Other female genital disorders (20 sources) History of recurrent miscarriage - not ; Translations: [Recurrent loss without current ] Episodic Other female genital disorders (1 source) H/O: miscarriage; Translations: [Recurrent loss] 10-26-2022 Episodic Other female genital disorders (1 source) Recurrent miscarriage; Translations: [Recurrent loss] 11-06-2022 Episodic Other female genital disorders (1 source) Vaginal dryness; Translations: [Other specified noninflammatory disorders of vagina] 08-29-2023 Episodic Other gastrointestinal disorders (20 sources) Personal history of other diseases of the digestive system; Translations: [History of gastroesophageal reflux disease] Episodic Other hematologic conditions (1 source) Other abnormality of red blood cells; Translations: [Microcytosis] Onset: 4 Episodic Other hereditary and degenerative nervous system conditions (20 sources) Restless legs; Translations: [Restless legs syndrome] Onset: 8 12-17-2017 Chronic Other inflammatory condition of skin (20 sources) Pruritus of vagina; Translations: [Pruritus of genital organs] Episodic Other liver diseases (1 source) Abnormal levels of other serum enzymes; Translations: [Elevated alkaline phosphatase level] Onset: 4 Episodic Other lower respiratory disease (20 sources) H/O: asthma; Translations: [Personal history of other diseases of respiratory system] Episodic Other lower respiratory disease (2 sources) Cough; Translations: [Acute cough] 09-17-2024 Episodic Other lower respiratory disease (1 source) Pleuritic pain; Translations: [Pleurodynia] 09-17-2024 Episodic Other nervous system disorders (20 sources) H/O: migraine; Translations: [Personal history of other disorders of nervous system and sense organs] Episodic Other nervous system disorders (1 source) Numbness of hand; Translations: [Anesthesia of skin] Episodic Other nutritional; endocrine; and metabolic disorders (2 sources) Obesity, unspecified; Translations: [Obesity, unspecified] Onset: 7 Chronic Other nutritional; endocrine; and metabolic disorders (20 sources) Body mass index 40+ - severely obese; Translations: [Morbid obesity] Onset: 1 Resolved: 3 07-15-2021 Chronic Other nutritional; endocrine; and metabolic disorders (18 sources) Body mass index 30+ - obesity; Translations: [Obesity, unspecified] 06-09-2022 Chronic Other nutritional; endocrine; and metabolic disorders (11 sources) Body mass index (BMI) 50.0-59.9, adult; Translations: [Body Mass Index 50.0-59.9, adult] Chronic Other nutritional; endocrine; and metabolic disorders (20 sources) Metabolic syndrome X; Translations: [Metabolic syndrome] Onset: 2 10-09-2022 Chronic Other nutritional; endocrine; and metabolic disorders (18 sources) Obesity; Translations: [Obesity, unspecified] Onset: 9 06-24-2022 Chronic Other nutritional; endocrine; and metabolic disorders (1 source) Severe obesity; Translations: [Morbid (severe) obesity due to excess calories] 04-30-2024 Chronic Other nutritional; endocrine; and metabolic disorders (1 source) Morbid (severe) obesity due to excess calories; Translations: [Obesity, Class III, BMI 40-49.9 (morbid obesity) (HCC)] Onset: 1 Chronic Other nutritional; endocrine; and metabolic disorders (20 sources) H/O: endocrine disorder; Translations: [Personal history of other endocrine, metabolic, and immunity disorders] Episodic Other and delivery including normal (20 sources) Normal ; Translations: [Supervision of other normal ] 04-10-2021 Episodic Other screening for suspected conditions (not mental disorders or infectious disease) (20 sources) Possible ; Translations: [ examination or test, unconfirmed] 09-22-2022 Episodic Other skin disorders (1 source) Eruption; Translations: [Rash and other nonspecific skin eruption] Episodic Other upper respiratory disease (16 sources) Allergic rhinitis; Translations: [Allergic rhinitis, unspecified] 09-07-2022 Chronic Other upper respiratory disease (6 sources) Allergic rhinitis, unspecified; Translations: [Allergic rhinitis, cause unspecified] Chronic Other upper respiratory infections (3 sources) Acute sinusitis; Translations: [Other acute sinusitis] Onset: 8 Episodic Residual codes; unclassified (1 source) Hypersomnia; Translations: [Hypersomnia, unspecified] Chronic Residual codes; unclassified (1 source) Hypersomnia, unspecified; Translations: [Hypersomnia, unspecified] Chronic Residual codes; unclassified (20 sources) Obstructive sleep apnea syndrome; Translations: [Obstructive sleep apnea (adult) (pediatric)] Onset: 3 05-18-2022 Chronic Residual codes; unclassified (12 sources) Obstructive sleep apnea (adult) (pediatric); Translations: [Obstructive sleep apnea (adult)(pediatric)] Onset: 5 Chronic Residual codes; unclassified (1 source) Gestation period, 27 weeks; Translations: [27 weeks gestation of ] Episodic Residual codes; unclassified (5 sources) Gestation period, 37 weeks; Translations: [37 weeks gestation of ] Onset: 3 05-07-2023 Episodic Residual codes; unclassified (2 sources) Edema; Translations: [Edema, unspecified] 05-11-2023 Episodic Residual codes; unclassified (2 sources) History of uterine scar from previous surgery; Translations: [History of uterine scar from previous surgery] Onset: 3 Episodic Residual codes; unclassified (2 sources) Edema, unspecified; Translations: [Edema, unspecified] Onset: 3 Episodic Residual codes; unclassified (1 source) History of pre-eclampsia; Translations: [Personal history of other complications of , childbirth and the puerperium] 08-29-2023 Episodic Residual codes; unclassified (1 source) Disturbance of attention; Translations: [Other general symptoms and signs] 08-01-2024 Episodic Residual codes; unclassified (17 sources) H/O cardiac surgery; Translations: [Other specified postprocedural states] Onset: 5 02-25-2025 Episodic Residual codes; unclassified (1 source) Left before being seen; Translations: [Procedure and treatment not carried out due to patient leaving prior to being seen by health care provider] 03-06-2025 Episodic Residual codes; unclassified (1 source) Other specified postprocedural states; Translations: [Status post ablation operation for arrhythmia] Onset: 5 Episodic Superficial injury; contusion (5 sources) Contusion of left foot; Translations: [Contusion of left foot, initial encounter] 03-06-2024 Episodic Syncope (20 sources) Near syncope; Translations: [Syncope and collapse] Onset: 5 07-13-2021 Episodic Thyroid disorders (20 sources) Subclinical hypothyroidism; Translations: [Other specified acquired hypothyroidism] Onset: 5 03-06-2024 Chronic Umbilical cord complication (4 sources) Velamentous insertion of umbilical cord; Translations: [Velamentous insertion of umbilical cord, unspecified trimester] Onset: 3 05-11-2023 Episodic Unclassified (2 sources) Body mass index (BMI) 45.0-49.9, adult; Translations: [Body mass index (BMI) 45.0-49.9, adult] Onset: 7 Chronic Unclassified (2 sources) POTENTIAL ECTOPIC 04-10-2021 Comment on above: POTENTIAL ECTOPIC ND EGNANCY Unclassified (1 source) First trimester 04-10-2021 Unclassified (2 sources) Decreased Movement; Translations: [Decreased Movement] Onset: 3 Unclassified (2 sources) Contractions; Translations: [Contractions] Onset: 3 Unclassified (1 source) Other specified diseases and conditions complicating puerperium; Translations: [Other specified diseases and conditions complicating puerperium] Onset: 3 Unclassified (4 sources) I47.1 - Supraventricular tachycardia Unclassified (1 source) Acute cough; Translations: [Acute cough] Onset: 5 Unclassified (1 source) V-tach (HCC); Translations: [V-tach (HCC)] Onset: 5 Unclassified (1 source) POTS (postural orthostatic tachycardia syndrome); Translations: [POTS (postural orthostatic tachycardia syndrome)] Onset: 8 Unclassified (2 sources) Supraventricular tachycardia, unspecified; Translations: [Supraventricular tachycardia, unspecified] Onset: 5 Urinary tract infections (20 sources) Urinary tract infectious disease; Translations: [Urinary tract infection, site not specified] 03-30-2022 Episodic Viral infection (12 sources) Disease caused by 2019-nCoV; Translations: [COVID-19] 06-10-2023 Episodic Past or Other Problems Problem Classification Problem Date Documented Da te Episodic/Chronic Conditions associated with dizziness or vertigo (2 sources) Dizziness and giddiness; Translations: [Dizziness and giddiness] Onset: 08-21-2024 Episodic Disorders of teeth and jaw (6 sources) Symptomatic irreversible pulpitis; Translations: [Irreversible pulpitis] Onset: 03-28-2023 03-28-2023 Episodic Nonspecific chest pain (20 sources) Chest discomfort; Translations: [Other chest pain] Onset: 10-09-2024 07-21-2021 Episodic Other bone disease and musculoskeletal deformities (20 sources) Somatic dysfunction of head region; Translations: [Segmental and somatic dysfunction of head region] Onset: 12-27-2022 Episodic Other bone disease and musculoskeletal deformities (20 sources) Cervical somatic dysfunction; Translations: [Segmental and somatic dysfunction of cervical region] Onset: 12-27-2022 Episodic Other bone disease and musculoskeletal deformities (20 sources) Somatic dysfunction of thoracic region; Translations: [Segmental and somatic dysfunction of thoracic region] Onset: 12-27-2022 Episodic Other bone disease and musculoskeletal deformities (18 sources) Somatic dysfunction of bilateral upper extremities; Translations: [Segmental and somatic dysfunction of upper extremity] Onset: 12-27-2022 Episodic Other bone disease and musculoskeletal deformities (18 sources) Somatic dysfunction of bilateral lower extremties; Translations: [Segmental and somatic dysfunction of lower extremity] Onset: 12-27-2022 Episodic Other bone disease and musculoskeletal deformities (2 sources) Segmental and somatic dysfunction of head region; Translations: [Segmental and somatic dysfunction of head region] Onset: 12-27-2022 Episodic Other bone disease and musculoskeletal deformities (2 sources) Segmental and somatic dysfunction of cervical region; Translations: [Segmental and somatic dysfunction of cervical region] Onset: 12-27-2022 Episodic Other bone disease and musculoskeletal deformities (2 sources) Segmental and somatic dysfunction of thoracic region; Translations: [Segmental and somatic dysfunction of thoracic region] Onset: 12-27-2022 Episodic Other complications of ; puerperium affecting management of mother (1 source) Pyrexia of unknown origin following delivery; Translations: [Pyrexia of unknown origin following delivery] Onset: 05-15-2023 Episodic Other connective tissue disease (18 sources) Fibromyositis; Translations: [Fibromyalgia] Onset: 12-15-2024 11-20-2015 Episodic Other lower respiratory disease (1 source) Other forms of dyspnea; Translations: [Other forms of dyspnea] Onset: 01-11-2025 Episodic Spondylosis; intervertebral disc disorders; other back problems (20 sources) Neck pain; Translations: [Cervicalgia] Onset: 12-17-2017 12-17-2017 Episodic Unclassified (6 sources) Family history of ischemic heart disease and other diseases of the circulatory system; Translations: [Acquired absence of other specified parts of digestive tract] Onset: 05-18-2017 Episodic NEGATED: Highlighted row has not occurred!Residual codes; unclassified (20 sources) Disease Episodic NEGATED: Highlighted row has been ruled out!Residual codes; unclassified (15 sources) History of clinical finding in subject; Translations: [Personal history of other disorders of nervous system and sense organs] Episodic Results Test Name Value Interpretation Reference Range Facility Cardiology Visit Reporton Cardiology Visit Report [facility] [address] [place] [address] OFFICE VISIT Date of Service: 04/21/25 MR#: [id number] Acct: [id number] Name: AMBIKA BROWN Rep #: [id number] : 1990 Provider: Dr. John Conrad MD Age/Sex: 35/F Location: [facility] [place] Status: Signed HPI HPI History of Present Illness Details: AMBIKA BROWN, is a 35 F who presents to the office today for a cardiovascular visit. She presented to the hospital in June of 2021with symptoms of palpitations and syncope. She had an episode of syncope in the ER while she was being monitored. She had another episode of syncope while in the PCU. She did have two separate episodes of 2-3 beat run of ventricular tachycardia. She did see Dr. Rock on 12/06/2021 for continued intermittent palpitations with tachycardia. Cardiac monitoring and EKGs during or shortly following episodes have revealed a long RP tachycardia. Recommendation was to do an EP study with possible ablation. She underwent EP evaluation on 02/13/2022, which was unable to provoke dysrhythmia. Pt did have syncope in March of 2022, she was evaluated at the emergency department 03/22/2022 for syncopal episode. Prior to syncopal episode she noted palpitations and not feeling well. Her EKG on 03/22/2022 showed normal sinus rhythm at a rate of 87 bpm. Her apple watch during time of not feeling well revealed sinus rhythm/sinus tachycardia with infrequent ectopy. She had another episode of syncope a few weeks later. She had a loop recorder placed in 08/2022. Loop recorder interrogation demonstrated 2 questionable atrial fibs episodes but also was a question of sinus with artifact. She has continued to undergo extensive evaluation and underwent a stress test in January 2025 at [facility] With no evidence of inducible ischemia present. 3-4 beats of nonsustained ventricular tachycardia were present. An echocardiogram performed in January 2025 also demonstrated an ejection fraction of 50%. An event monitor demonstrated sinus rhythm with multiple short runs of ventricular tachycardia. She subsequently underwent an EP testing evaluation on February 24, 2025 and it demonstrated PVC activation mapping and ablation in the basal anterior LV without suppression of PVCs. The plan was to put her on flecainide 50 mg twice a day which has been uptitrated to 100 mg twice a day. Metoprolol was continued and there was a consideration for epicardial PVC ablation if drug therapy was ineffective. She has unfortunately continued to have some palpitations as well as sharp chest discomfort. An event monitor which was placed from the EP service demonstrated multiple episodes of wide-complex tachycardia the fastest was at a rate of 273 bpm with the longest lasting 11 beats. Most of these were asymptomatic. She is due to see the residential leasing agent later this month. Her physical exam also appears to be unremarkable. Intake Vital Signs 03/05/24 13:40 02/20/25 16:12 04/21/25 13:06 Height 5 ft 7 in 5 ft 7 in 5 ft 7 in Weight: 345 lb BMI 54.0 BP 162/104 H Blood Pressure Location Lt radial Position Sitting Respiration 16 Pulse 95 Pulse Source Monitor Intake Visit Reasons: 1 Y FU Industrial Education Instructor Required: No Accompanied by: Self Is patient in pain?: No Allergies diphenhydramine (From Benadryl) Allergy (Mild, Verified 04/21/25 13:10) Chest tightness prochlorperazine (From Compazine) Allergy (Verified 04/21/25 13:10) Other Medications ???Medication ???Instructions ???Recorded ???Confirmed ???Type levothyroxine 50 mcg tablet 50 mcg PO DAILY thyroid 12/05/22 0 04/21/25 History (Synthroid) ascorbic acid (vitamin C) 500 mg 500 mg PO DAILY suppliment 4 04/21/25 History tablet aspirin 81 mg chewable tablet 81 mg PO DAILY preventative 04/21/25 History cholecalciferol (vitamin D3) 25 25 mcg PO DAILY suppliment 4 04/21/25 History mcg (1,000 unit) tablet gabapentin 100 mg capsule 100 mg PO DAILY PRN pain 09/17/24 04/21/25 History lisinopril 20 mg tablet 20 mg PO BID blood pressure 04/21/25 History ondansetron HCl 8 mg tablet 8 mg PO Q12H PRN nausea and 04/21/25 History vomiting albuterol sulfate 90 mcg/actuation 1 inh inhalation ONCE PRN 04/21/25 History aerosol inhaler shortness of breath or wheezing amlodipine 5 mg tablet (Norvasc) 5 mg PO QDAY blood pressure #90 04/21/25 Rx tabs promethazine 25 mg tablet 12.5 - 25 mg PO Q8 PRN nausea 02/0804/21/25 History flecainide 100 mg tablet 100 mg PO Q12H 04/21/25 04/21/25 H istory magnesium oxide 400 mg PO DAILY #60 caps 04/21/25 04/21/25 Rx metoprolol tartrate 50 mg tablet 50 mg PO BID heart #180 tabs 04/2104/21/25 Rx PFSH [facility] Telephone (AGCARDPOB ) -------- AMBIKA BROWN ([id number]) 1990 F CHT Date Time Provider Department 04/06/25 NITIN ROCK During your visit today, we recorded the following information about you: Vilma Lakhani RN 04/06/2025 12:08 PM Signed Ambika Brown called in to request to be seen sooner. Her appt was rescheduled further out. She hasn't been very active and has been off work. She has cut out caffeine completely. She reports med compliance. She complains of increased intensity in symptoms. When her heart goes in and out of SVT/Vtach(?), she has CP that radiates up to left side of her neck. Messaging the area helps a little, and when her heart clams down, the pain goes away. Note: she reports 2 week monitor ends tomorrow and she will mail back then. MARGARITA Yeh Robert A, MD 04/06/2025 5:14 PM Signed [facility] [place] General Electrophysiology (EP) We need to see the results of the cardiac monitoring, but otherwise we do not have a lot to offer her. I think she should see Dr. Kaye at [facility] EP. Referral to Dr. Kaye placed. Nitin Rock MD April 06, 2025 5:12 PM Aurora Goodson RN 04/07/2025 8:46 AM Signed Spoke with pt. Notified of Dr Rock's message. She voices understanding and will reach out to Dr Eid for an appointment. Aurora Goodson RN Allergies As of Date: 04/06/2025 Noted Allergy Reaction PROCHLORPERAZINE 12/02/2018 1 - Mental Status Change Comments: Compazine akathesia ADHESIVE TAPE-SILICONES 03/12/2025 9 - Itching Comments: Itching/rash/burning to tegaderm adhesive DIPHENHYDRAMINE 10/05/2022 5 - Intolerance Comments: Heart palpitations, anxiety Date Reviewed: 03/12/2025 Reviewed by: Kristine Oliva RN - Fully Assessed Reason for Visit: Appointment [186] Primary Visit Diagnosis:Nonsustained ventricular tachycardia (HCC) [I47.29] Other Visit Diagnoses:Status post ablation operation for arrhythmia [Z98.890, Z86.79] PVC (premature ventricular contraction) [I49.3] Order(s):CONSULT TO ELECTROPHYSIOLOGY [[id number]] Order #: [id number]: 1 FUTURE Prescriptions as of 04/07/2025 - divalproex ER (DEPAKOTE ER) 500 mg 24 hr tablet Take 2 tablets by mouth once daily for 5 days, THEN 1 tablet once daily for 5 days. - flecainide (TAMBOCOR) 100 mg tablet Take 1 tablet by mouth every 12 hours. - promethazine (PHENERGAN) 25 mg tablet 1/2 to 1 po q8h prn headache or nausea - gabapentin (NEURONTIN) 100 mg capsule Take 1 po at onset of migraine if needed repeat in 8 hours - metoprolol tartrate, short acting, (LOPRESSOR) 25 mg tablet Take 1 tablet by mouth two times a day. - lisinopril (ZESTRIL) 20 mg tablet Take 20 mg by mouth two times a day. - ascorbic acid, vitamin C, (VITAMIN C) 500 mg tablet Take 500 mg by mouth once daily. - ondansetron (ZOFRAN) 8 mg tablet FOR NAUSEA. Take on at onset of nausea or migraine,may repeat dose in 8 hours if needed. - naproxen (NAPROSYN) 500 mg tablet Take 1 tablet by mouth two times a day as needed for pain. - levothyroxine (SYNTHROID) 50 mcg tablet Take 50 mcg by mouth every morning. Take On an Empty Stomach - aspirin, enteric coated (ASPIRIN, ENTERIC COATED) 81 mg EC tablet Take 81 mg by mouth daily at bedtime. - cholecalciferol, vitamin D3, (VITAMIN D3 ORAL) Take by mouth once daily. - PNV/FERROUS SULFATE/FOLIC ACID ( MULTIVIT WITH IRON ORAL) Take by mouth daily at bedtime. - albuterol HFA (PROVENTIL HFA, VENTOLIN HFA) 90 mcg/actuation inhaler Inhale 2 Puffs as instructed every 4 hours as needed for Wheezing/Shortness of Breath. Facility-Administered Medications as of 04/07/2025 - onabotulinum toxin type A 155 Units injection (BOTOX) Problem List As Of Date 04/06/2025 Noted Resolved Migraines [G43.909] 03/14/2016 Chronic migraine without aura, with intractable*10/25/2017 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 *10/25/2017 POTS (postural orthostatic tachycardia syndrome*10/25/2017 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/2017 RLS (restless legs syndrome) [G25.81] 12/17/2017 Neck pain [M54.2] 12/17/2017 Syncope [R55] Palpitations [R00.2] Nonsustained ventricular tachycardia (HCC) [I47* Obesity, Class III, BMI >= 40 [E66.813] 07/15/2021 Paroxysmal supraventricular tachycardia (HCC) [*12/06/2021 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 Normal [facility] CNOVon 03-12-2025 CNOV Office Visit (NHMNS2 ) -------- AMBIKA BROWN ([id number]) 1990 F CHT Date Time Provider Department 03/12/25 10:00 AM DALILA FERNANDEZ [facility]MNS2 During your visit today, we recorded the following information about you: Dalila Fernandez, MARIA FERNANDA.SCHEDULE CHECKER 03/12/2025 11:15 AM Signed [facility] G[facility] Note Subjective: Ambika Brown is a 35 year old year old female presenting for day 3 of infusions. Left yesterday with mild nausea, Increased in severity last evening Therapy Plan: zofran reglan magnesium robaxin valproate New health conditions since orders were placed: No Cardiovascular risk factors: SVT, POTS Triptan dose in the last 24 hours: no Last muscle relaxer dose: No Last NSAID dose: last week Response to infusions: Patient tolerating infusion without side effects. D1: 04/19-01/17;D2: 02/17-12/18;D3:11/17 Current Preventative: gabapentin, Metoprolol Current Abortive: Naproxen Labs: Latest Ref Rng AND Units 02/25/2025 CBC WBC 3.70 - 11.00 k/uL 13.51 RBC 3.90 - 5.20 m/uL 4.72 Hemoglobin 11.5 - 15.5 g/dL 11.9 Hematocrit 36.0 - 46.0 % 38.4 MCV 80.0 - 100.0 fL 81.4 MCH 26.0 - 34.0 pg 25.2 MCHC 30.5 - 36.0 g/dL 31.0 RDW-CV 11.5 - 15.0 % 15.9 Platelet Count 150 - 400 k/uL 208 MPV 9.0 - 12.7 fL 12.1 Latest Ref Rng AND Units 02/26/2025 CMP Sodium 136 - 144 mmol/L 137 Potassium 3.7 - 5.1 mmol/L 3.8 Chloride 98 - 107 mmol/L 105 CO2 22 - 30 mmol/L 22 Glucose 74 - 99 mg/dL 106 BUN 7 - 21 mg/dL 8 Creatinine 0.58 - 0.96 mg/dL 0.54 EGFR >=60 mL/min/1.73m? 124 Albumin 3.9 - 4.9 g/dL 3.5 Calcium 8.5 - 10.2 mg/dL 8.3 ALLERGIES Allergen Reactions Prochlorperazine Mental Status Change Compazine akathesia Diphenhydramine Intolerance Heart palpitations, anxiety Current Medications: flecainide (TAMBOCOR) 100 mg tabletTake 1 tablet by mouth every 12 hours.Disp: 180 tabletRfl: 1 promethazine (PHENERGAN) 25 mg tablet1/2 to 1 po q8h prn headache or nauseaDisp: 45 tabletRfl: 11 gabapentin (NEURONTIN) 100 mg capsuleTake 1 po at onset of migraine if needed repeat in 8 hoursDisp: 30 capsuleRfl: 5 metoprolol tartrate, short acting, (LOPRESSOR) 25 mg tabletTake 1 tablet by mouth two times a day.Disp: Rfl: lisinopril (ZESTRIL) 20 mg tabletTake 20 mg by mouth two times a day.Disp: Rfl: ascorbic acid, vitamin C, (VITAMIN C) 500 mg tabletTake 500 mg by mouth once daily.Disp: Rfl: ondansetron (ZOFRAN) 8 mg tabletFOR NAUSEA. Take on at onset of nausea or migraine,may repeat dose in 8 hours if needed.Disp: 20 tabletRfl: 4 naproxen (NAPROSYN) 500 mg tabletTake 1 tablet by mouth two times a day as needed for pain.Disp: 60 tabletRfl: 3 levothyroxine (SYNTHROID) 50 mcg tabletTake 50 mcg by mouth every morning. Take On an Empty StomachDisp: Rfl: aspirin, enteric coated (ASPIRIN, ENTERIC COATED) 81 mg EC tabletTake 81 mg by mouth daily at bedtime. Disp: Rfl: cholecalciferol, vitamin D3, (VITAMIN D3 ORAL)Take by mouth once daily.Disp: Rfl: PNV/FERROUS SULFATE/FOLIC ACID ( MULTIVIT WITH IRON ORAL)Take by mouth daily at bedtime. Disp: Rfl: albuterol HFA (PROVENTIL HFA, VENTOLIN HFA) 90 mcg/actuation inhalerInhale 2 Puffs as instructed every 4 hours as needed for Wheezing/Shortness of Breath.Disp: Rfl: Review of Systems: Review of system: Patient reports no change from the prior visit. Objective: VS: see infusion note for vital signs General: well appearing, in no acute distress, alert, obese Lungs: normal breath sounds bilaterally CV: RRR, normal S1, S2 auscultated, no murmurs, and no JVD GI: Bowel sounds present in all four quadrants - Yes Neurological: Pain Behaviors: no pain behaviors observed Mental Status: Alert and oriented to person, place and time. Affect is normal and appropriate. Speech is spontaneous and fluent without dysarthria, normal in rate, volume and articulation, and clear, coherent, and relevant. 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 Attention span and concentration are good. Cranial Nerves: VII-face is symmetric without evidence of weakness. VIII-hearing intact. Assessment: Chronic migraine without aura, with intractable migraine, so stated, with status migrainosus (primary encounter diagnosis) Plan: Ambika Brown is a 35 year old year old female, with a history of SVT,POTS, HO[place], RLS, hemiplegic migraines, left sided weakness, obesity and chronic migraines following up today for day 3 of infusions. Follow up plan: Resume previous at home medications. The following approved medication requests have been transmitted electronically. Requested Prescriptions Signed Prescriptions Disp Refills divalproex ER (DEPAKOTE ER) 500 mg 24 hr tablet 15 tablet 0 Sig: Take 2 tablets by mouth once daily for 5 days, THEN 1 tablet once daily for 5 days. 05/19/25 Julia Huertas PA-C Botox Level of service: Est level (more content not included)... Normal [facility] CNOVon 03-10-2025 CNOV Office Visit (NHMNS2 ) -------- AMBIKA BROWN ([id number]) 1990 F T Date Time Provider Department 03/10/25 10:45 AM AARTI HUERTAS [facility] During your visit today, we recorded the following information about you: Aarti Huertas PA-C 03/10/2025 11:18 AM Signed [facility] Note Subjective: Ambika Brown is a 35 year old year old female presenting for day 1 of infusions. Therapy Plan: zofran reglan magnesium robaxin valproate New health conditions since orders were placed: No Cardiovascular risk factors: has palpitations and SVT Triptan dose in the last 24 hours: No Last muscle relaxer dose: No Last NSAID dose: Yes, naproxen yesterday Response to infusions: Patient tolerating infusion without side effects. Current Preventative: gabapentin, metoprolol Current Abortive: naproxen Labs: Latest Ref Rng AND Units 02/25/2025 CBC WBC 3.70 - 11.00 k/uL 13.51 RBC 3.90 - 5.20 m/uL 4.72 Hemoglobin 11.5 - 15.5 g/dL 11.9 Hematocrit 36.0 - 46.0 % 38.4 MCV 80.0 - 100.0 fL 81.4 MCH 26.0 - 34.0 pg 25.2 MCHC 30.5 - 36.0 g/dL 31.0 RDW-CV 11.5 - 15.0 % 15.9 Platelet Count 150 - 400 k/uL 208 MPV 9.0 - 12.7 fL 12.1 Latest Ref Rng AND Units 02/26/2025 CMP Sodium 136 - 144 mmol/L 137 Potassium 3.7 - 5.1 mmol/L 3.8 Chloride 98 - 107 mmol/L 105 CO2 22 - 30 mmol/L 22 Glucose 74 - 99 mg/dL 106 BUN 7 - 21 mg/dL 8 Creatinine 0.58 - 0.96 mg/dL 0.54 EGFR >=60 mL/min/1.73m? 124 Albumin 3.9 - 4.9 g/dL 3.5 Calcium 8.5 - 10.2 mg/dL 8.3 ALLERGIES Allergen Reactions Prochlorperazine Mental Status Change Compazine akathesia Diphenhydramine Intolerance Heart palpitations, anxiety Current Medications: flecainide (TAMBOCOR) 100 mg tabletTake 1 tablet by mouth every 12 hours.Disp: 180 tabletRfl: 1 promethazine (PHENERGAN) 25 mg tablet1/2 to 1 po q8h prn headache or nauseaDisp: 45 tabletRfl: 11 gabapentin (NEURONTIN) 100 mg capsuleTake 1 po at onset of migraine if needed repeat in 8 hoursDisp: 30 capsuleRfl: 5 metoprolol tartrate, short acting, (LOPRESSOR) 25 mg tabletTake 1 tablet by mouth two times a day.Disp: Rfl: lisinopril (ZESTRIL) 20 mg tabletTake 20 mg by mouth two times a day.Disp: Rfl: ascorbic acid, vitamin C, (VITAMIN C) 500 mg tabletTake 500 mg by mouth once daily.Disp: Rfl: ondansetron (ZOFRAN) 8 mg tabletFOR NAUSEA. Take on at onset of nausea or migraine,may repeat dose in 8 hours if needed.Disp: 20 tabletRfl: 4 naproxen (NAPROSYN) 500 mg tabletTake 1 tablet by mouth two times a day as needed for pain.Disp: 60 tabletRfl: 3 levothyroxine (SYNTHROID) 50 mcg tabletTake 50 mcg by mouth every morning. Take On an Empty StomachDisp: Rfl: aspirin, enteric coated (ASPIRIN, ENTERIC COATED) 81 mg EC tabletTake 81 mg by mouth daily at bedtime. Disp: Rfl: cholecalciferol, vitamin D3, (VITAMIN D3 ORAL)Take by mouth once daily.Disp: Rfl: PNV/FERROUS SULFATE/FOLIC ACID ( MULTIVIT WITH IRON ORAL)Take by mouth daily at bedtime. Disp: Rfl: albuterol HFA (PROVENTIL HFA, VENTOLIN HFA) 90 mcg/actuation inhalerInhale 2 Puffs as instructed every 4 hours as needed for Wheezing/Shortness of Breath.Disp: Rfl: Review of Systems: Review of system: Patient reports no change from the prior visit. Objective: VS: see infusion note for vital signs General: well appearing, in no acute distress, well-hydrated, well nourished, alert, obese, solicited verbal complaints Lungs: normal breath sounds bilaterally CV: RRR, normal S1, S2 auscultated, no murmurs, and no JVD GI: Bowel sounds present in all four quadrants - Yes Neurological: Pain Behaviors: solicited verbal complaints Mental Status: Alert and oriented to person, place and time. Affect is normal. Speech is spontaneous and fluent without dysarthria. Short and long-term memory, cognition and general fund of knowledge are good. Attention span and concentration are excellent. Cranial Nerves: VII-face is symmetric without evidence of weakness. VIII-hearing intact. Assessment: Chronic migraine without aura, with intractable migraine, so stated, with status migrainosus (primary encounter diagnosis) Plan: Ambika Brown is a 35 year old year old female, with a history of chronic migraines with status migrainosus following up today for day 1 of infusions. Follow up plan: Return for Day 2 of infusions tomorrow. Level of service: Est level 2 (10-19 min). Time spent 11 min on the day of service, which included preparing to see the patient, [id number] patient care, completing clinical documentation, obtaining and/or reviewing separately obtained history, and performing a medically appropriate examination. Aarti Huertas PA-C [facility] March 10, 2025 Aarti Huertas PA-C 03/10/2025 11:18 AM Signed Return for Day 2 of IV infusions Allergies As of Date: 03/10/2025 Noted Allergy Reactio (more content not included)... Normal [facility] A1Con 03-05-2025 Glucose [Mass/Vol] 131 mg/dL High <=114 [facility] Comment on above: Result Comment: Duy mated Average Glucose calculated by equation ((28.7xA1C)-46.7) Estimated average glucose (eAG) is a calculated value from Hemoglobin A1C and is telephone sales representative of the average blood glucose level in the last 2-3 month period. Normal range: less than 114 mg/dL Performed By: #### L IPID, TSH, A1C #### [facility] [address], [place] [address] HbA1c (Bld) [Mass fraction] 6.2 % Normal [facility] Comment on above: Result Comment: Inte rpretation of Hgb A1C results: <5.7% Normal 5.7% - 6.4% Prediabetes >6.4% Diabetes Samples from patients with hemolytic anemias or the presence of unstable hemoglobins like HbSS or HbSC will exhibit decreased glycated Hgb due to the shortened life span of the red cells. Results are not reliable in patients with chronic blood loss. Performed By: #### L IPID, TSH, A1C #### [facility] [address], [place] [address] LIPIDon 03-05-2025 Cholesterol 153 mcg/dL Normal 0-200 [facility] Comment on above: Result Comment: Chol esterol Reference Interval: Less than 200 Desirable 200-239 Borderline high risk 240 and above High risk Performed By: #### L IPID, TSH, A1C #### [facility] [address], [place] [address] Cholesterol in HDL [Mass/Vol] 48 mg/dL Normal 40-60 [facility] Comment on above: Performed By: #### L IPID, TSH, A1C #### [facility] [address], [place] [address] Cholesterol in LDL [Mass/Vol] 88 mg/dL Normal 0-130 [facility] Comment on above: Performed By: #### L IPID, TSH, A1C #### [facility] [address], [place] [address] Triglyceride [Mass/Vol] 86 mg/dL Normal 0-150 [facility] Comment on above: Performed By: #### L IPID, TSH, A1C #### [facility] [address] [place], [place] [address] TSHon 03-05-2025 TSH 3.400 mIU/mL Normal 0.358-3.740 [facility] Comment on above: Performed By: #### L IPID, TSH, A1C #### [facility] [address] [address] CNPNon 03-04-2025 CNPN Telephone (AGCARDPOB ) -------- AMBIKA BROWN ([id number]) 1990 F T Date Time Provider Department 03/04/25 HECTOR ROBIN AGCARDPOB During your visit today, we recorded the following information about you: Sayra Adames MA 03/04/2025 2:51 PM Signed We received FMLA Forms and were placed on 's dest.NANCY Salinas Lorie, MA 03/10/2025 2:49 PM Signed FMLA Paper work was done and the patient was called and the forms were faxed to Terence Cameron from [email or web address] @ [phone], and scanned into the chart. Sayra Adames MA Allergies As of Date: 03/04/2025 Noted Allergy Reaction PROCHLORPERAZINE 12/02/2018 1 - Mental Status Change Comments: Compazine akathesia DIPHENHYDRAMINE 10/05/2022 5 - Intolerance Comments: Heart palpitations, anxiety Date Reviewed: 02/25/2025 Reviewed by: Hailey Armando APRN.SCHEDULE CHECKER - Fully Assessed Prescriptions as of 04/06/2025 - divalproex ER (DEPAKOTE ER) 500 mg 24 hr tablet Take 2 tablets by mouth once daily for 5 days, THEN 1 tablet once daily for 5 days. - flecainide (TAMBOCOR) 100 mg tablet Take 1 tablet by mouth every 12 hours. - promethazine (PHENERGAN) 25 mg tablet 1/2 to 1 po q8h prn headache or nausea - gabapentin (NEURONTIN) 100 mg capsule Take 1 po at onset of migraine if needed repeat in 8 hours - metoprolol tartrate, short acting, (LOPRESSOR) 25 mg tablet Take 1 tablet by mouth two times a day. - lisinopril (ZESTRIL) 20 mg tablet Take 20 mg by mouth two times a day. - ascorbic acid, vitamin C, (VITAMIN C) 500 mg tablet Take 500 mg by mouth once daily. - ondansetron (ZOFRAN) 8 mg tablet FOR NAUSEA. Take on at onset of nausea or migraine,may repeat dose in 8 hours if needed. - naproxen (NAPROSYN) 500 mg tablet Take 1 tablet by mouth two times a day as needed for pain. - levothyroxine (SYNTHROID) 50 mcg tablet Take 50 mcg by mouth every morning. Take On an Empty Stomach - aspirin, enteric coated (ASPIRIN, ENTERIC COATED) 81 mg EC tablet Take 81 mg by mouth daily at bedtime. - cholecalciferol, vitamin D3, (VITAMIN D3 ORAL) Take by mouth once daily. - PNV/FERROUS SULFATE/FOLIC ACID ( MULTIVIT WITH IRON ORAL) Take by mouth daily at bedtime. - albuterol HFA (PROVENTIL HFA, VENTOLIN HFA) 90 mcg/actuation inhaler Inhale 2 Puffs as instructed every 4 hours as needed for Wheezing/Shortness of Breath. Facility-Administered Medications as of 04/06/2025 - onabotulinum toxin type A 155 Units injection (BOTOX) Problem List As Of Date 03/04/2025 Noted Resolved Migraines [G43.909] 03/14/2016 Chronic migraine without aura, intractable, wit*10/25/2017 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 *10/25/2017 POTS (postural orthostatic tachycardia syndrome*10/25/2017 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/2017 RLS (restless legs syndrome) [G25.81] 12/17/2017 Neck pain [M54.2] 12/17/2017 Syncope [R55] Palpitations [R00.2] Nonsustained ventricular tachycardia (HCC) [I47* Obesity, Class III, BMI >= 40 [E66.813] 07/15/2021 Paroxysmal supraventricular tachycardia (HCC) [*12/06/2021 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] 12/15/2024 Hypothyroid [E03.9] 12/15/2024 Implantable loop recorder present [Z95.818] 09/28/2022 Metabolic syndrome [E88.810] 08/02/2022 Morbid obesity (HCC) [E66.01] 12/15/2024 Obstructive sleep apnea syndrome [G47.33] 09/21/2022 V-tach (HCC) [I47.20] 01/13/2025 Status post ablation operation for arrhythmia [*02/25/2025 PVC (premature ventricular contraction) [I49.3] 02/25/2025 Vision changes [H53.9] 02/25/2025 Left-sided weakness [R53.1] 02/26/2025 Letter Text Encounter Status:Closed by HECTOR ROBIN on 04/03/25 [facility] 02-26-2025 ALLIED HEALTH HNO ID: [id number] Author: LAURA DE LA FUENTE RT(R) Service: Radiology Author Type: Technologist Type: Allied Health Filed: 02/26/2025 04:47 Note Text: Radiology Service Progress Note PATIENT NAME: Ambika Brown DATE OF SERVICE: February 26, 2025 TIME: 4:46 AM PATIENT IDENTITY VERIFICATION COMPLETED USING TWO (2) IDENTIFIERS: Name and Date of confirmed by patient verbally and Name and Date of confirmed by identification band. FALL SCREENING: Has the patient had 2 falls in the last year or 1 fall with injury or currently using an Ambulatory Assistive Device (Walker, Cane, Wheelchair, Crutches, etc.)? Inpatient: Screened on floor PATIENT GENDER DATA: Assigned female at . status: : No status: NO. PATIENT RELEVANT IMPLANT DATA REVIEWED: Not Applicable PATIENT PRESENTS WITH AN IMPLANTABLE OR ATTACHED SENIOR NETWORK ADMINISTRATOR: No RADIOLOGY DEPARTMENT: MR; Exam(s) Completed: Head: Routine Brain. Aromatherapy Administered: No PERIPHERAL IV DATA: Inpatient: see LDA documentation SIGNED BY: Laura SundayRT(R) February 26, 2025 4:46 AM [facility] CNDSon 02-26-2025 [facility] HNO ID: [id number] Author: LUIS MIGUEL BENNETT APRN.[facility] Service: Hospital Medicine Author Type: Nurse Practitioner Type: Discharge Summary Filed: 02/26/2025 11:42 Note Text: -------- Attestation signed by Radha Cardoso MD at 03/04/2025 3:47 PM -------- DISCHARGE SUMMARY PATIENT NAME: Ambika Brown ADMISSION DATE: 02/25/2025 DISCHARGE DATE: 02/26/2025 Attending Physician: Radha Cardoso Code Status: Prior Highest Readmission Risk Score: 14 The 30 day readmissions risk score is derived from an internally validated risk model which evaluates patient level characteristics, utilization history, medication orders and lab results up until the day of discharge. Patients with a score of 39 or above are considered highest risk for readmission. Specific patient level drivers will be listed at the bottom of the summary. Reason for Hospitalization: Headache and paresthesias Diagnosis: Principal Problem: Migraines (POA: Yes) Active Problems: Hypothyroid (POA: Yes) Status post ablation operation for arrhythmia (POA: Yes) Vision changes (POA: Unknown) Left-sided weakness (POA: Unknown) Resolved Problems: * No resolved hospital problems. * Sepsis Ruled Out Hospital Course as Described to the Patient: You were admitted for Headache and paresthesias. You presented to the emergency department for further evaluation of episode of left sided vision changes, facial droop, and left sided weakness with headache. In the emergency department, CT imaging of your brain and vessels of your head and neck did not show evidence of an acute stroke or blockage or significant narrowing of the vessels. You were admitted to the observation unit for further evaluation. While you were here, you underwent a MRI which showed no acute findings While you were here, we checked your lipid levels in your blood. Your cholesterol is 137, the goal is <199. Your triglycerides are 72, the goal is <149. Your HDL (good cholesterol) is 42, the goal is >40. Your LDL (bad cholesterol) is 81, the goal is <100. We recommend that you adhere to a heart healthy diet that is low in cholesterol, fat, and triglycerides. We also recommend 30 minutes of cardiovascular exercise at least 4-5 days a week. Doing these two things can help reduce your risk of future health problems. Neurology was consulted, recommendations that symptoms related to atypical migraine - please follow up with your migraine team outpatient. At this time, we feel that you are ready for discharge to home. Return to the emergency department if any new or worsening symptoms or concerns. -Continue all previously prescribed medications with no changes. Additional Provider to Provider Information: Principal Problem: Migraines (POA: Yes) Active Problems: Hypothyroid (POA: Yes) Status post ablation operation for arrhythmia (POA: Yes) Vision changes (POA: Unknown) Left-sided weakness (POA: Unknown) Assessment AND Plan: Patient is a 35 year old female admitted to the [facility] for complaints of headache with left facial paresthesias. Of note, she had recent cardiac ablation on 02/24/[address] Beckham for SVT which she states went well and denies any issues with this since. -CT brain showed no acute findings. CTA head/neck showed no high grade stenosis or LVO. MRI brain also showed no acute findings. Neurology was consulted - no further inpatient recs, symptoms related to atypical migraine and recommended she follow up with her migraine team outpatient which patient agreed with. Of note, cardiac enzymes were elevated but down-trending, EKG showed now ischemic changes - related to recent ablation. At this time, patient is medically cleared for discharge home. She was advised to follow up with her PCP in 1-2 weeks but to also return to the hospital if she develops any new concerning or worsening symptoms. Patient agreed with this plan. Patient remained hemodynamically stable during her hospitalization. Resolved Problems: * No resolved hospital problems. * I have reviewed, confirmed, and edited as necessary, the PFSH and ROS obtained by others. DATA: Most recent labs and imaging results reviewed. CBC: Recent Labs 02/25/251931 WBC 13.51* RBC 4.72 HB 11.9 HCT 38.4 PLT 208 MCV 81.4 MCH 25.2* MPV 12.1 Coags: Recent Labs 02/25/251931 INR 1.1 APTT 27.9 BMP: Recent Labs 02/26/25 0150 NA 137 K 3.8 CHLOR 105 CO2 22 BUN 8 CREAT 0.54* GLUC 106* CMP: Recent Labs 02/26/25 0150 NA 137 K 3.8 CHLOR 105 CO2 22 BUN 8 CREAT 0.54* GLUC 106* CA 8.3* MG 1.8 ANION 10 Cardiac Enzymes: No results for input(s): CK, MB, CKMB, TROPT in the last 24 hours. Liver Function, Amylase, Lipase: Recent Labs 02/26/25 0150 (more content not included)... [facility] CONSULTon 02-26-2025 CONSULT HNO ID: [id number] Author: SIMON JAIME MD Service: Neurology General Author Type: Physician Type: Consults Filed: 02/26/2025 10:27 Note Text: -------- Attestation signed by Gretta Vidal MD at 02/26/2025 10:59 AM [facility] [place], [facility] BY [facility] ST[facility]FF PHYSICIAN NOTE OF PERSONAL INVOLVEMENT IN CARE I have reviewed the consult note obtained and documented by the resident and I personally participated in the pedersen components. I have discussed the case and management of the patient's care. The following comments revise or confirm relevant pedersen components of the note. Patient is a 35-year-old woman with a past medical history of migraine headaches who was admitted yesterday to the observation unit after presenting to the ER with worsening headaches. She had history of cardiac arrhythmias and underwent PVC ablation yesterday. She went home and developed severe headache associated with visual disturbances and left sided weakness and numbness. Due to these symptoms she decided to come into the ER for evaluation. In the ER, she had a CT angiogram head and neck that was unremarkable. Brain MRI was obtained this morning showed no evidence of acute ischemic stroke. She has longstanding history of migraine headaches. When seen by our team, patient reported significant improvement in her headache and resolution of her visual symptoms. She had lingering sensory changes in the left side. Description of episode is suggestive of migraine. There is no evidence of cerebral ischemia. Recommended to follow with her migraine team. Gretta Vidal MD Staff, Vascular Neurology 02/26/2025 10:53 AM -------- NEUROLOGY CONSULT HANDP PATIENT NAME: Ambika Brown DATE OF ADMISSION: February 26, 2025 REASON FOR CONSULT: c/f TIA; episode L hemianopsia and left sided weakness Subjective HPI Ms. Ambika Brown is a 35 year old female w/PMH Migraines (follows w/Migraine clinic, receives botox injections) Recurrent PVCs s/p attempted ablation w/o suppression of PVCs on 02/24/2025 HTN Asthma (No PFTs on file) [place] not on CPAP Hypothyroidism GERD Obesity Presented to [facility] on 02/25 w/complaints of headache and vision changes. Patient started experiencing symptoms shortly after awakening from sedation after ablation procedure. Patient states that she experienced vice-brim pouncing machine operator like headache. Patient took a nap and then woke up with severe migraine Reportedly started at ~1700. While in ED, stroke team called 1903; initial NIHSS 8 (minor paralysis on L side, RANDL arm drift, R leg drift, L leg some effort against gravity, mild to moderate sensory loss, mild to moderate dysarthria). CT brain noncontrast demonstrated no acute intracranial hemorrhage or acute stroke. CTA head/neck no evidence of vertebral/carotid/intrac ranial stenosis. BMP Ca 8.4 (albumin obtained next day 3.5), CBC WBC 13.51, PT/pTT unremarkable. HsTNT [phone] (likely due to recent ablation), stroke cancelled at 1942. Patient given droperidol, 1 L NS, admitted to [facility] for observation. Brain MRI later obtained demonstrated normal appearance w/no evidence of acute CVA accident. Lipid panel HDL 42, LDL 81, Total cholesterol 137. On bedside evaluation, patient states headache is in the background and well controlled. Patient denies recent illness, chest pain, SoB, N/V, cough. PAST MEDICAL HISTORY Diagnosis Date Asthma (HCC) Chronic hypertension Clotting disorder (HCC) Fibromyalgia GERD (gastroesophageal reflux disease) Gestational diabetes (HCC) Hiatal hernia Hypothyroidism Implantable loop recorder present Insulin resistance Lupus anticoagulant disorder (HCC) Migraines Nonsustained ventricular tachycardia (HCC) Obesity, Class III, BMI >= 40 07/15/2021 Obstructive sleep apnea syndrome 09/21/2022 Has CPAP machine but currently not using- needs to get full mask, still working on this. Challenged with side sleeping and nasal congestion impacting comfort with mask. Suggest cool mist humidifier. Counseled on importance of compliance for and cardiovascular health. improved sleep with pillow adjustment. reports no further snoring Reviewed on 06/18/2023 Palpitations Pancreatitis (HCC) Paroxysmal supraventricular tachycardia (HCC) Pre-eclampsia (HCC) Supraventricular tachycardia (HCC) Syncope Thyroid disease PAST SURGICAL HISTORY Procedure Laterality Date DELIVERY ONLY 05/09/2023 CHOLECYSTECTOMY 2013 DANDC, DIAG AND/OR THERAPEUTIC 2018 EP STUDY 02/13/2022 comprehensive EP study; normal study, no accessory pathways; +dual AV azra pathways but no inducible SVT; [facility] Dr. Rock EPS: [place] ABLATION 02/24/2025 PVC mapped to LV summit, not able to successfully ablate; [facility] Dr. Robin LOOP RECORDER IMPLANT Left 08/2022 Harmon/SJM implantable cardiac loop recorder in (more content not included)... [facility] HIGH SENSITIVITY TROPONIN To n 02-26-2025 Troponin T.cardiac High sensitivity method [Mass/Vol] 278 ng/L High <12 [facility] Comment on above: Order Comment: Otis [facility]field Type: BLOOD SPECIMEN Ordering Facility: [facility] Address: [address] [place] [address] Performed By: #### H STNT #### [facility] CLIA [id number] [address] HbA1c (Bld)on 02-26-2025 Average glucose Estimated from glycated hemoglobin (Bld) [Mass/Vol] 131 mg/dL [facility] Comment on above: Order Comment: Otis barfield Type: BLOOD SPECIMEN Ordering Facility: [facility] Address: [address] [place] [address] Result Comment: eAG: (Estimated average glucose) is a calculated value from HgbA1c and is telephone sales representative of the average blood glucose level in the last 2-3 month period. Performed By: #### H STNT #### [facility] CLIA [id number] [address] HbA1c (Bld) [Mass fraction] 6.2 % High 4.3-5.6 [facility] Comment on above: Order Comment: [facility] Type: BLOOD SPECIMEN Ordering Facility: [facility] Address: [address] [place] [address] Result Comment: Amer ican Diabetes Association guidelines indicate that patients with HgbA1c in the range 5.7-6.4% are at increased risk for development of diabetes, and intervention by lifestyle modification may be beneficial. HgbA1c greater or equal to 6.5% is considered diagnostic of diabetes. Performed By: #### H STNT #### [facility] CLIA [id number] [address] OF [facility] Lipid 1996 panelon Cholesterol [Mass/Vol] 137 mg/dL Normal <200 [facility] Comment on above: Order Comment: Speci carolyne Type: BLOOD SPECIMEN Ordering Facility: [facility] Address: [address] [place] [address] Result Comment: <200 mg/dL, Desirable 200-239 mg/dL, Borderline high >239 mg/dL, High Performed By: #### 1 9123-9, 79670-6 #### [facility] CLIA [id number] [address] Cholesterol in HDL [Mass/Vol] 42 mg/dL Normal >39 [facility] Comment on above: Order Comment: Otis carolyne Type: BLOOD SPECIMEN Ordering Facility: [facility] Address: [address] [place] [address] Result Comment: 40-5 9 mg/dL, Acceptable >59 mg/dL, High: Negative risk factor for coronary heart disease <40 mg/dL, Low: Positive risk factor for coronary heart disease Performed By: #### 1 9123-9, 57924-2 #### [facility] CLIA [id number] [address] Cholesterol in LDL [Mass/Vol] 81 mg/dL Normal <100 [facility] Comment on above: Order Comment: Otis carolyne Type: BLOOD SPECIMEN Ordering Facility: [facility] Address: [address] [place] [address] Result Comment: <100 mg/dL, Optimal 100-129 mg/dL, Near optimal/above optimal 130-159 mg/dL, Borderline high 160-189 mg/dL, High >189 mg/dL, Very high Secondary prevention optimal LDL Cholesterol levels are recommended to be <70 mg/dL LDL cholesterol is calculated using the Meng-NIH equation. Performed By: #### 1 9123-9, 84762-0 #### [facility] CLIA [id number] [address] [place] Cholesterol in LDL/Cholesterol in HDL [Mass ratio] 1.93 {ratio} Normal <2.54 [facility] Comment on above: Order Comment: [facility]is [facility] Type: BLOOD SPECIMEN Ordering Facility: [facility] Address: [address] [place] [address] Result Comment: Refe rence: 1. National Cholesterol Education Program ATP III Guideline At-A-Glance Quick Desk Reference: National Heart, Lung, and Blood [place]. National Institutes of Health. 2001: NIH Publication No. 01-3305. 2. An International Atherosclerosis Society position paper: global recommendations for the management of dyslipidemia: executive summary, Atherosclerosis. 2014: 232(2):410-413. Performed By: #### 1 9123-9, 65419-7 #### [facility] CLIA [id number] [address] STATES OF [facility] Cholesterol in VLDL [Mass/Vol] 11 mg/dL Normal <30 [facility] Comment on above: Order Comment: Otis barfield Type: BLOOD SPECIMEN Ordering Facility: [facility] Address: [address] [place] [address] Performed By: #### 1 9, #### [facility] CLIA [id number] [address] [place] Cholesterol non HDL [Mass/Vol] 95 mg/dL Normal <130 [facility] Comment on above: Order Comment: Otis barfield Type: BLOOD SPECIMEN Ordering Facility: [facility] Address: [address] [place] [address] Result Comment: <130 mg/dL, Optimal 130-159 mg/dL, Near optimal/above optimal 160-189 mg/dL, Borderline high 190-219 mg/dL, High >219 mg/dL, Very high Secondary prevention optimal non HDL Cholesterol levels are recommended to be <100 mg/dL Performed By: #### 1 9123-05, 78005-9 #### [facility] CLIA [id number] [address] OF [facility] Cholesterol.total/Jennyfer sterol in HDL [Mass ratio] 3.26 {ratio} Normal <5.10 [facility] Comment on above: Order Comment: Otis barfield Type: BLOOD SPECIMEN Ordering Facility: [facility] Address: [address] [place] [address] Performed By: #### 1 9123-9, 98659-9 #### [facility] CLIA [id number] [address] [place] FASTING TIME [facility] Comment on above: Order Comment: Speci men Type: BLOOD SPECIMEN Ordering Facility: [facility] Address: [address] [place] [address] Result Comment: Unkn own Performed By: #### 1 9123-9, 13607-1 #### [facility] CLIA [id number] [address] Triglyceride [Mass/Vol] 72 mg/dL Normal <150 [facility] Comment on above: Order Comment: Speci men Type: BLOOD SPECIMEN Ordering Facility: [facility] Address: [address] [place] [address] Result Comment: <150 mg/dL, Normal 150-199 mg/dL, Borderline high 200-499 mg/dL, High >499 mg/dL, Very high Performed By: #### 1 9123-9, 32628-9 #### [facility] CLIA [id number] [address] MRI BRAIN WO IVCONon 02-26-2 025 MRI BRAIN WO IVCON * * *Final Report* * * DATE OF EXAM: Feb 26 2025 5:30AM [facility] 0294 - MRI BRAIN WO IVCON / PROCEDURE REASON: Transient ischemic attack (TIA) * * * * Physician Interpretation * * * * EXAMINATION: MRI BRAIN WO IVCON CLINICAL HISTORY: The patient is a 35-year-old female with transient ischemic attack characterized by left-sided weakness, left-sided facial trauma, difficulty with speech, and headache. TECHNIQUE: Routine noncontrast MRI protocol including diffusion images. MQ: [id number] COMPARISON: CT scan of the brain with CT angiogram of the head and neck from yesterday. RESULT: Acute Change: There is no evidence of restricted diffusion to suggest an acute infarct. Hemorrhage: No evidence of prior parenchymal hemorrhage on the susceptibility weighted images. Mass Lesion/ Mass Effect: No evidence of an intracranial mass or extra-axial fluid collection. No significant mass effect. Chronic Change: The white matter is within normal limits of signal intensity for age. Parenchyma: No significant volume loss for age. The brain parenchyma is otherwise within normal limits of signal intensity and morphology. Ventricles: Normal caliber and morphology. Skull Base: Hypothalamic and pituitary region are grossly normal. Craniocervical junction is normal. No significant marrow replacement process. Vasculature: Major intracranial arterial structures, and dural venous sinuses show typical flow void, suggesting patency by spin echo criteria. Other: The visualized paranasal sinuses and mastoid air cells are clear. The orbits and extracranial soft tissues are unremarkable. IMPRESSION: Normal appearance to the brain with no evidence of acute cerebrovascular accident. 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: PSCB Transcribe Date/Time: Feb 26 2025 7:25A Dictated by : FRANCES TERRAZAS MD This examination was interpreted and the report reviewed and electronically signed by: FRANECS TERRAZAS MD on Feb 26 2025 7:29AM EST [id number] [facility] Magnesium SerPl-mCncon 02-26 Magnesium [Mass/Vol] 1.8 mg/dL Normal 1.7-2.3 [facility] Comment on above: Order Comment: [facility] Type: BLOOD SPECIMEN Ordering Facility: [facility] Address: [address] [place] [address] Performed By: #### 1 9123-9, 43540-4 #### [facility] CLIA [id number] [address] [place] [address] [place] Renal function 2000 panelon 02-26-2025 Albumin [Mass/Vol] 3.5 g/dL Low 3.9-4.9 [facility] Comment on above: Order Comment: [facility] Type: BLOOD SPECIMEN Ordering Facility: [facility] Address: [address] [place] [address] Performed By: #### 2 4362-6 #### [facility] CLIA [id number] [address] [place] Anion gap [Moles/Vol] 10 mmol/L Normal 8-15 [facility] Comment on above: Order Comment: Otis barfield Type: BLOOD SPECIMEN Ordering Facility: [facility] Address: [address] [place] [address] Performed By: #### 2 4362-6 #### [facility] CLIA [id number] [address] [place] Calcium [Mass/Vol] 8.3 mg/dL Low 8.5-10.2 [facility] Comment on above: Order Comment: Speci men Type: BLOOD SPECIMEN Ordering Facility: [facility] Address: [address] [place] [address] Performed By: #### 2 4362-6 #### [facility] CLIA [id number] [address] [place] Chloride [Moles/Vol] 105 mmol/L Normal 98-107 [facility] Comment on above: Order Comment: Speci men Type: BLOOD SPECIMEN Ordering Facility: [facility] Address: [address] [place] [address] Performed By: #### 2 4362-6 #### [facility] CLIA [id number] [address] [place] CO2 [Moles/Vol] 22 mmol/L Normal 22-30 [facility] Comment on above: Order Comment: Speci men Type: BLOOD SPECIMEN Ordering Facility: [facility] Address: [address] [place] [address] Performed By: #### 2 4362-6 #### [facility] CLIA [id number] [address] [place] Creatinine [Mass/Vol] 0.54 mg/dL Low 0.58-0.96 [facility] Comment on above: Order Comment: Speci men Type: BLOOD SPECIMEN Ordering Facility: [facility] Address: [address] [place] [address] Performed By: #### 2 4362-6 #### [facility] CLIA [id number] [address] [place] Creatinine and Glomerular filtration rate.predicted panel (S/P/Bld) 124 mL/min/1.73m??? Normal >=60 [facility] Comment on above: Order Comment: Speci men Type: BLOOD SPECIMEN Ordering Facility: [facility] Address: [address] [place] [address] Result Comment: Duy mated Glomerular Filtration Rate (eGFR) is calculated using the 2020 CKD-EPI creatinine equation. This equation utilizes serum creatinine, sex, and age as parameters. The creatinine assay has traceable calibration to isotope dilution-mass spectrometry. Refer to KDIGO guidelines for clinical interpretation. In patients with unstable renal function, e.g. those with acute kidney injury, the eGFR may not accurately reflect actual GFR. Performed By: #### 2 4362-6 #### [facility] CLIA [id number] [address] [place] [address] [place] Glucose [Mass/Vol] 106 mg/dL High 74-99 [facility] Comment on above: Order Comment: Otis [facility]field Type: BLOOD SPECIMEN Ordering Facility: [facility] Address: [address] [place], [place] [address] Result Comment: The [place] Diabetes Association (ADA) provides guidance for cutoff values for fasting glucose and random glucose. The ADA defines fasting as no caloric intake for at least 8 hours. Fasting plasma glucose results between 100 to 125 mg/dL indicate increased risk for diabetes (prediabetes). Fasting plasma glucose results greater than or equal to 126 mg/dL meet the criteria for diagnosis of diabetes. In the absence of unequivocal hyperglycemia, results should be confirmed by repeat testing. In a patient with classic symptoms of hyperglycemia or hyperglycemic crisis, random plasma glucose results greater than or equal to 200 mg/dL meet the criteria for diagnosis of diabetes. Reference: Standards of Medical Care in Diabetes 2016, [place] Diabetes Association. Diabetes Care. 2016.39(Suppl 1). Performed By: #### 2 4362-6 #### [facility] CLIA [id number] [address] [place] [address] [place] Phosphate [Mass/Vol] 3.2 mg/dL Normal 2.7-4.8 [facility] Comment on above: Order Comment: Otis barfield Type: BLOOD SPECIMEN Ordering Facility: [facility] Address: [address] [place] [address] Performed By: #### 2 4362-6 #### [facility] CLIA [id number] [address] [place] [address] [place] Potassium [Moles/Vol] 3.8 mmol/L Normal 3.7-5.1 [facility] Comment on above: Order Comment: Speci men Type: BLOOD SPECIMEN Ordering Facility: [facility] Address: [address] [place] [address] Performed By: #### 2 4362-6 #### [facility] CLIA [id number] [address] Sodium [Moles/Vol] 137 mmol/L Normal 136-144 [facility] Comment on above: Order Comment: Speci men Type: BLOOD SPECIMEN Ordering Facility: [facility] Address: [address] [place] [address] Performed By: #### 2 4362-6 #### [facility] CLIA [id number] [address] Urea nitrogen [Mass/Vol] 8 mg/dL Normal 7-21 [facility] Comment on above: Order Comment: Speci men Type: BLOOD SPECIMEN Ordering Facility: [facility] Address: [address] [place] [address] Performed By: #### 2 4362-6 #### [facility] CLIA [id number] [address] OF [facility] ALLIED HEALTHon 02-25-2025 ALLIED HEALTH HNO ID: [id number] Author: DAVID MEJIA RT(R) Service: ? Author Type: Technologist Type: Allied Health Filed: 02/25/2025 19:16 Note Text: Radiology Service Progress Note DATE OF SERVICE: February 25, 2025 TIME: 7:16 PM PATIENT IDENTITY VERIFICATION COMPLETED USING TWO (2) STANDARD IDENTIFIERS: Name and Date of confirmed by identification band. FALL SCREENING: Has the patient had 2 falls in the last year or 1 fall with injury or currently using an Ambulatory Assistive Device (Walker, Cane, Wheelchair, Crutches, etc.)? Emergency Room Patient: Screened in ED PATIENT GENDER DATA: Assigned female at . status: : No status: NO. PATIENT RELEVANT IMPLANT DATA REVIEWED: Yes PATIENT PRESENTS WITH AN IMPLANTABLE OR ATTACHED SENIOR NETWORK ADMINISTRATOR: No ALLERGIES: Reviewed and unchanged CONTRAST ALLERGY: NO. EXAM: CT -CONTRAST INDUCED NEPHROPATHY RISK FACTORS: Not applicable CREATININE: Creatinine Date Value Ref Range Status 02/25/2025 0.62 0.58 - 0.96 mg/dL Final 02/24/2025 0.58 0.58 - 0.96 mg/dL Final 02/19/2025 0.71 0.58 - 0.96 mg/dL Final Estimated Glomerular Filtration Rate Date Value Ref Range Status 02/25/2025 120 >=60 mL/min/1.73m? Final Comment: Estimated Glomerular Filtration Rate (eGFR) is calculated using the 2020 CKD-EPI creatinine equation. This equation utilizes serum creatinine, sex, and age as parameters. The creatinine assay has traceable calibration to isotope dilution-mass spectrometry. Refer to KDIGO guidelines for clinical interpretation. In patients with unstable renal function, e.g. those with acute kidney injury, the eGFR may not accurately reflect actual GFR. eGFR- Date Value Ref Range Status 12/17/2017 >60 Final P.O.C.T. RESULTS: POC done: Yes, See Lab Tab February 25, 2025 TREATMENT: N/A PERIPHERAL IV DATA: Inpatient - refer to LDA documentation RADIOLOGY DEPARTMENT: CT; Exam(s) Completed: Brain , CTA Brain , and CTA Neck SIGNATURE: David Mejia, RT(R) PATIENT NAME: Ambika Brown DATE: February 25, 2025 TIME: 7:16 PM Normal [facility] Basic metabolic 2000 panelon 02-25-2025 Anion gap [Moles/Vol] 8 mmol/L Normal 8-15 [facility] Comment on above: Order Comment: Speci men Type: BLOOD SPECIMEN Ordering Facility: [facility] Address: [address] [place] [address] Performed By: #### 1 9123-9, 92985-6 #### [facility] CLIA [id number] [address] [place] [address] [place] Calcium [Mass/Vol] 8.4 mg/dL Low 8.5-10.2 [facility] Comment on above: Order Comment: Speci men Type: BLOOD SPECIMEN Ordering Facility: [facility] Address: [address] [place] [address] Performed By: #### 1 9123-9, 14567-0 #### [facility] CLIA [id number] [address] [place] Chloride [Moles/Vol] 103 mmol/L Normal 98-107 [facility] Comment on above: Order Comment: Otis men Type: BLOOD SPECIMEN Ordering Facility: [facility] Address: [address] [place] [address] Performed By: #### 1 9123-9, 64212-7 #### [facility] CLIA [id number] [address] [place] CO2 [Moles/Vol] 25 mmol/L Normal 22-30 [facility] Comment on above: Order Comment: Speci men Type: BLOOD SPECIMEN Ordering Facility: [facility] Address: [address] [place] [address] Performed By: #### 1 9123-9, 22872-7 #### [facility] CLIA [id number] [address] Creatinine [Mass/Vol] 0.69 mg/dL Normal 0.58-0.96 [facility] Comment on above: Order Comment: Speci men Type: BLOOD SPECIMEN Ordering Facility: [facility] Address: [address] [place] [address] Performed By: #### 1 91239, 00761-7 #### [facility] CLIA [id number] [address] Creatinine and Glomerular filtration rate.predicted panel (S/P/Bld) 117 mL/min/1.73m??? Normal >=60 [facility] Comment on above: Order Comment: Speci men Type: BLOOD SPECIMEN Ordering Facility: [facility] Address: [address] [place] [address] Result Comment: Duy mated Glomerular Filtration Rate (eGFR) is calculated using the 2020 CKD-EPI creatinine equation. This equation utilizes serum creatinine, sex, and age as parameters. The creatinine assay has traceable calibration to isotope dilution-mass spectrometry. Refer to KDIGO guidelines for clinical interpretation. In patients with unstable renal function, e.g. those with acute kidney injury, the eGFR may not accurately reflect actual GFR. Performed By: #### 1 9123-9, #### [facility] CLIA [id number] [address] [place] [address] [place] Glucose [Mass/Vol] 106 mg/dL High 74-99 [facility] Comment on above: Order Comment: Speci men Type: BLOOD SPECIMEN Ordering Facility: [facility] Address: [address] [place] [address] Result Comment: The [place] Diabetes Association (ADA) provides guidance for cutoff values for fasting glucose and random glucose. The ADA defines fasting as no caloric intake for at least 8 hours. Fasting plasma glucose results between 100 to 125 mg/dL indicate increased risk for diabetes (prediabetes). Fasting plasma glucose results greater than or equal to 126 mg/dL meet the criteria for diagnosis of diabetes. In the absence of unequivocal hyperglycemia, results should be confirmed by repeat testing. In a patient with classic symptoms of hyperglycemia or hyperglycemic crisis, random plasma glucose results greater than or equal to 200 mg/dL meet the criteria for diagnosis of diabetes. Reference: Standards of Medical Care in Diabetes 2016, [place] [employer] Association. Diabetes Care. 2016.39(Suppl 1). Performed By: #### 1 91239 #### [facility] CLIA [id number] 1 [place] [address] [place] Potassium [Moles/Vol] 4.5 mmol/L Normal 3.7-5.1 [facility] Comment on above: Order Comment: Speci men Type: BLOOD SPECIMEN Ordering Facility: [facility] Address: [address] [place] [address] Performed By: #### 1 91239, #### [facility] CLIA [id number] 1 [place] [address] [place] Sodium [Moles/Vol] 136 mmol/L Normal 136-144 [facility] Comment on above: Order Comment: Speci men Type: BLOOD SPECIMEN Ordering Facility: [facility] Address: [address] [place] [address] Performed By: #### 1 91239, #### [facility] CLIA [id number] [address] [place] [address] [place] Urea nitrogen [Mass/Vol] 11 mg/dL Normal 7-21 [facility] Comment on above: Order Comment: Speci men Type: BLOOD SPECIMEN Ordering Facility: [facility] Address: [address] [place] [address] Performed By: #### 1 9123-9, 33318-7 #### [facility] CLIA [id number] [address] [place] [address] [place] Anion gap [Moles/Vol] 8 mmol/L Normal 8-15 [facility] Comment on above: Order Comment: Speci men Type: BLOOD SPECIMEN Ordering Facility: [facility] Address: [address] [place] [address] Performed By: #### 2 4362-6 #### [facility] CLIA [id number] 1 [place] [address] [place] Calcium [Mass/Vol] 8.3 mg/dL Low 8.5-10.2 [facility] Comment on above: Order Comment: Speci men Type: BLOOD SPECIMEN Ordering Facility: [facility] Address: [address] [place] [address] Performed By: #### 2 4362-6 #### [facility] CLIA [id number] 1 [place] [address] [place] Chloride [Moles/Vol] 105 mmol/L Normal 98-107 [facility] Comment on above: Order Comment: Speci men Type: BLOOD SPECIMEN Ordering Facility: [facility] Address: [address] [place] [address] Performed By: #### 2 4362-6 #### [facility] CLIA [id number] [address] [place] [address] [place] CO2 [Moles/Vol] 26 mmol/L Normal 22-30 [facility] Comment on above: Order Comment: Speci men Type: BLOOD SPECIMEN Ordering Facility: [facility] Address: [address] [place] [address] Performed By: #### 2 4362-6 #### [facility] CLIA [id number] [address] [place] Creatinine [Mass/Vol] 0.62 mg/dL Normal 0.58-0.96 [facility] Comment on above: Order Comment: Otis barfield Type: BLOOD SPECIMEN Ordering Facility: [facility] Address: [address] [place] [address] Performed By: #### 2 4362-6 #### [facility] CLIA [id number] [address] [place] [address] Creatinine and Glomerular filtration rate.predicted panel (S/P/Bld) 120 mL/min/1.73m??? Normal >=60 [facility] Comment on above: Order Comment: Otis barfield Type: BLOOD SPECIMEN Ordering Facility: [facility] Address: [address] [place] [address] Result Comment: Duy mated Glomerular Filtration Rate (eGFR) is calculated using the 2020 CKD-EPI creatinine equation. This equation utilizes serum creatinine, sex, and age as parameters. The creatinine assay has traceable calibration to isotope dilution-mass spectrometry. Refer to KDIGO guidelines for clinical interpretation. In patients with unstable renal function, e.g. those with acute kidney injury, the eGFR may not accurately reflect actual GFR. Performed By: #### 2 4362-6 #### [facility] CLIA [id number] [address] [place] [address] STATES [place] [facility] Glucose [Mass/Vol] 117 mg/dL High 74-99 [facility] Comment on above: Order Comment: Otis barfield Type: BLOOD SPECIMEN Ordering Facility: [facility] Address: [address] [place] [address] Result Comment: The [place] Diabetes Association (ADA) provides guidance for cutoff values for fasting glucose and random glucose. The ADA defines fasting as no caloric intake for at least 8 hours. Fasting plasma glucose results between 100 to 125 mg/dL indicate increased risk for diabetes (prediabetes). Fasting plasma glucose results greater than or equal to 126 mg/dL meet the criteria for diagnosis of diabetes. In the absence of unequivocal hyperglycemia, results should be confirmed by repeat testing. In a patient with classic symptoms of hyperglycemia or hyperglycemic crisis, random plasma glucose results greater than or equal to 200 mg/dL meet the criteria for diagnosis of diabetes. Reference: Standards of Medical Care in Diabetes 2016, [place] [employer]. Diabetes Care. 2016.39(Suppl 1). Performed By: #### 2 4362-6 #### [facility] CLIA [id number] [address] Potassium [Moles/Vol] 4.1 mmol/L Normal 3.7-5.1 [facility] Comment on above: Order Comment: Speci men Type: BLOOD SPECIMEN Ordering Facility: [facility] Address: [facility] [place] [address] Performed By: #### 2 4362-6 #### [facility] CLIA [id number] [address] Sodium [Moles/Vol] 139 mmol/L Normal 136-144 [facility] Comment on above: Order Comment: Speci men Type: BLOOD SPECIMEN Ordering Facility: [facility] Address: [address] [place] [address] Performed By: #### 2 4362-6 #### [facility] CLIA [id number] [address] [place] [address] Urea nitrogen [Mass/Vol] 7 mg/dL Normal 7-21 [facility] Comment on above: Order Comment: Speci men Type: BLOOD SPECIMEN Ordering Facility: [facility] Address: [address] [place] [address] Performed By: #### 2 4362-6 #### [facility] CLIA [id number] [address] CBC panel Auto (Bld)on 02-25 Erythrocyte distribution width (RBC) [Ratio] 15.9 % High 11.5-15.0 [facility] Comment on above: Order Comment: Speci men Type: BLOOD SPECIMENOrdering Facility: [facility] Address: [facility] [place] [address] Performed By: #### 5 8410-2 ####[facility] [id number] [place] [address] [place] Hematocrit (Bld) [Volume fraction] 38.4 % Normal 36.0-46.0 [facility] Comment on above: Order Comment: Speci men Type: BLOOD SPECIMENOrdering Facility: [facility] Address: [address] [place] [address] Performed By: #### 5 8410-2 ####[facility] [id number] [address] STATES OF [facility] Hemoglobin (Bld) [Mass/Vol] 11.9 g/dL Normal 11.5-15.5 [facility] Comment on above: Order Comment: Speci men Type: BLOOD SPECIMENOrdering Facility: [facility] Address: [address] [place] [address] Performed By: #### 5 8410-2 ####[facility] [id number] [address] [place] MCH (RBC) [Entitic mass] 25.2 pg Low 26.0-34.0 [facility] Comment on above: Order Comment: Speci men Type: BLOOD SPECIMENOrdering Facility: [facility] Address: [address] [place] [address] Performed By: #### 5 8410-2 ####[facility]IA [id number] [address] [place] MCHC (RBC) [Mass/Vol] 31.0 g/dL Normal 30.5-36.0 [facility] Comment on above: Order Comment: Speci men Type: BLOOD SPECIMENOrdering Facility: [facility] Address: [address] [place] [address] Performed By: #### 5 8410-2 ####[facility]ORY[facility]IA [id number] [address] [place] MCV (RBC) [Entitic vol] 81.4 fL Normal 80.0-100.0 [facility] Comment on above: Order Comment: Speci men Type: BLOOD SPECIMENOrdering Facility: [facility] Address: [address] [place] [address] Performed By: #### 5 8410-2 ####[facility]ORY[facility]IA [id number] [address] [place] Nucleated RBC (Bld) [#/Vol] 10*3/uL Normal <0.01 [facility] Comment on above: Order Comment: Speci men Type: BLOOD SPECIMENOrdering Facility: [facility] Address: [address] [place] [address] Performed By: #### 5 8410-2 ####[facility]ORY[facility]IA [id number] [address] [place] Platelet mean volume (Bld) [Entitic vol] 12.1 fL Normal 9.0-12.7 [facility] Comment on above: Order Comment: Speci men Type: BLOOD SPECIMENOrdering Facility: [facility] Address: [address] [place] [address] Performed By: #### 5 8410-2 ####[facility]ORY[facility]IA [id number] [address] Platelets (Bld) [#/Vol] 208 10*3/uL Normal 150-400 [facility] Comment on above: Order Comment: Speci men Type: BLOOD SPECIMENOrdering Facility: [facility] Address: [address] [place] [address] Performed By: #### 5 8410-2 ####[facility]ORY[facility]IA [id number] [address] [place] RBC (Bld) [#/Vol] 4.72 10*6/uL Normal 3.90-5.20 [facility] Comment on above: Order Comment: Speci men Type: BLOOD SPECIMENOrdering Facility: [facility] Address: [address] [place] [address] Performed By: #### 5 8410-2 ####[facility]ORY[facility]IA [id number] [address] [place] WBC (Bld) [#/Vol] 13.51 10*3/uL High 3.70-11.00 [facility] Comment on above: Order Comment: Speci men Type: BLOOD SPECIMENOrdering Facility: [facility] Address: [address] [place] [address] Performed By: #### 5 8410-2 ####[facility] [id number] [address] STATES OF [facility] Erythrocyte distribution width (RBC) [Ratio] 15.8 % High 11.5-15.0 [facility] Comment on above: Order Comment: Speci men Type: BLOOD SPECIMEN Ordering Facility: [facility] Address: [address] [place] [address] Performed By: #### 1 9123-9, 07175-8 #### [facility] CLIA [id number] [address] Hematocrit (Bld) [Volume fraction] 38.0 % Normal 36.0-46.0 [facility] Comment on above: Order Comment: Speci men Type: BLOOD SPECIMEN Ordering Facility: [facility] Address: [address] [place] [address] Performed By: #### 1 9123-9, 95959-2 #### [facility] CLIA [id number] [address] [place] Hemoglobin (Bld) [Mass/Vol] 12.2 g/dL Normal 11.5-15.5 [facility] Comment on above: Order Comment: Speci men Type: BLOOD SPECIMEN Ordering Facility: [facility] Address: [address] [place] [address] Performed By: #### 1 9123-9, 92434-9 #### [facility] CLIA [id number] [address] [place] MCH (RBC) [Entitic mass] 25.6 pg Low 26.0-34.0 [facility] Comment on above: Order Comment: Speci men Type: BLOOD SPECIMEN Ordering Facility: [facility] Address: [address] [place] [address] Performed By: #### 1 9123-9, 22645-6 #### [facility] CLIA [id number] [address] OF [facility] MCHC (RBC) [Mass/Vol] 32.1 g/dL Normal 30.5-36.0 [facility] Comment on above: Order Comment: Speci men Type: BLOOD SPECIMEN Ordering Facility: [facility] Address: [address] [place] [address] Performed By: #### 1 9123-9, 48436-8 #### [facility] CLIA [id number] [address] MCV (RBC) [Entitic vol] 79.8 fL Low 80.0-100.0 [facility] Comment on above: Order Comment: Speci men Type: BLOOD SPECIMEN Ordering Facility: [facility] Address: [address] [place] [address] Performed By: #### 1 9123-9, 97542-7 #### [facility] CLIA [id number] [address] Nucleated RBC (Bld) [#/Vol] 10*3/uL Normal <0.01 [facility] Comment on above: Order Comment: Speci men Type: BLOOD SPECIMEN Ordering Facility: [facility] Address: [address] [place] [address] Performed By: #### 1 9123-9, 33007-0 #### [facility] CLIA [id number] [address] [place] Platelet mean volume (Bld) [Entitic vol] 11.9 fL Normal 9.0-12.7 [facility] Comment on above: Order Comment: Speci men Type: BLOOD SPECIMEN Ordering Facility: [facility] Address: [address] [place] [address] Performed By: #### 1 9123-9, 62360-4 #### [facility] CLIA [id number] [address] [place] Platelets (Bld) [#/Vol] 187 10*3/uL Normal 150-400 [facility] Comment on above: Order Comment: Speci men Type: BLOOD SPECIMEN Ordering Facility: [facility] Address: [address] [place] [address] Performed By: #### 1 9123-9, 89593-1 #### [facility] CLIA [id number] [address] RBC (Bld) [#/Vol] 4.76 10*6/uL Normal 3.90-5.20 [facility] Comment on above: Order Comment: Speci men Type: BLOOD SPECIMEN Ordering Facility: [facility] Address: [address] [place], [place] [address] Performed By: #### 1 9123-9, 35714-6 #### [facility] CLIA [id number] [address] WBC (Bld) [#/Vol] 9.26 10*3/uL Normal 3.70-11.00 [facility] Comment on above: Order Comment: Otis carolyne Type: BLOOD SPECIMEN Ordering Facility: [facility] Address: [address] [place] [address] Performed By: #### 1 9123-9, 00965-2 #### [facility] CLIA [id number] [address] CNDSon 02-25-2025 [facility]DS HNO ID: [id number] Author: MARIE CAMERON APRN.SCHEDULE CHECKER Service: Electrophysiology Author Type: Nurse Practitioner Type: Discharge Summary Filed: 02/25/2025 11:32 Note Text: -------- Attestation signed by Hector Robin MD at 02/25/2025 12:18 PM Reviewed case. Agree with evaluation and plan of care as outlined by the JOB TRAINING SPECIALIST, as we discussed. -------- DISCHARGE SUMMARY PATIENT NAME: Amibka Brown Code Status: Prior Highest Readmission Risk Score: 8 The 30 day readmissions risk score is derived from an internally validated risk model which evaluates patient level characteristics, utilization history, medication orders and lab results up until the day of discharge. Patients with a score of 39 or above are considered highest risk for readmission. Specific patient level drivers will be listed at the bottom of the summary. Admission Information Admission Information ADMIT DATE: 02/24/2025 DISCHARGE DATE: 02/25/2025 MY DOCTORS AND MEDICAL TEAM: My Main Hospital Doctor: Hector Robin MD Primary Care Provider: Mega Weeks MD My Medical Team Members: Treatment Team: Attending Provider: Hector Robin MD MY CONDITION AT DISCHARGE: Good REASON I WAS IN THE HOSPITAL: Electrophysiology study with attempted ablation of PVC, considered unsuccesful, procedure performed by Dr. Robin 02/24/2025. SUMMARY OF WHAT HAPPENED WHILE I WAS IN THE HOSPITAL: The patient underwent electrophysiology study with radiofrequency catheter ablation in basal anterior left ventricle without suppression of PVC's, procedure performed by Dr. Robin 02/24/2025. There were no intraprocedural complications. The patient recovered in the rapid observation unit where she was monitored overnight, started on flecainide which was tolerated well, subsequently was discharged home. OTHER PROBLEMS/DIAGNOSIS: Principal Problem: PVC (premature ventricular contraction) - The patient underwent electrophysiology study with radiofrequency catheter ablation in basal anterior left ventricle without suppression of PVC's, procedure performed by Dr. Robin 02/24/2025. There were no intraprocedural complications. She did well overnight, telemetry demonstrates sinus rhythm with occasional PVCs, rates in the 70s-80s. She was started on flecainide 50 mg twice daily post procedure, will increase to 100 mg twice daily at discharge, prescription sent to [facility] pharmacy. Metoprolol tartrate 25 mg twice daily was held prior to procedure and restarted post procedure. She will have an EKG in 7-10 days (plans to obtain at [facility], order requisition provided) and wear a 14-day patch monitor in 1 month (to be mailed to her home). She will follow-up in 8-10 weeks to review the results of the monitor. If the flecainide is ineffective or not tolerated, she may need epicardial approach for PVC ablation. Patient education provided on flecainide, obtained from [employer]. We reviewed postprocedure instructions, medications and follow-up, patient verbalizes understanding. She is okay to be discharged, as discussed with Dr. Robin. Active Problems: Syncope Palpitations Nonsustained ventricular tachycardia (HCC) Obesity, Class III, BMI >= 40 Paroxysmal supraventricular tachycardia (HCC) Status post ablation operation for arrhythmia Resolved Problems: * No resolved hospital problems. * OPERATIONS PERFORMED WHILE IN THE HOSPITAL: Electrophysiology study with attempted ablation of PVC, considered unsuccesful, procedure performed by Dr. Robin 02/24/2025. Discharge Disposition Discharge Disposition: Home With Self Care Activity When You Leave the Hospital Do not sit for long periods of time with your arms or legs bent May drive 24 hours after discharged from hospital No lifting greater than 5-10 pounds for 5-7 days No strenuous activity, exercise, or sports for 5-7 days, casual walking is fine No walking restrictions Take showers, not baths, until your wound is completely healed (usually 7-10 days) Diet Instructions Resume your pre-hospital diet For Pain When You Leave the Hospital Use acetaminophen (Tylenol) as recommended on the bottle Wound/Surgical Site Care Any bruising and bumps should disappear within 3-4 days Avoid lotions or powders Check your wound every day Right groin If the bruising expands or the bump enlarges please call your doctor Some bruising, soreness or a small bump under the skin at the inserion site is normal Wash your wound area with mild soap and water daily and gently pat dry with a towel Call Your Doctor If There is an unusual odor from the wound area There is severe pain at the operative site You have lightheadedness, fainting, or confusion You have persistent or heavy bleeding You have redness, swelling, pus or draina (more content not included)... Normal [facility] Mari 02-25-2025 YULIA Telephone ([facility]) -------- STEPHANIEAMBIKA ([id number]) 1990 F T Date Time Provider Department 02/25/25 MARIE CAMERON During your visit today, we recorded the following information about you: Marie Cameron APRN.CNP 02/25/2025 11:23 AM Signed Please arrange hospital follow-up in 8-[address] Rock or MARIA FERNANDA. Patient underwent electrophysiology study with attempted PVC ablation with Dr. Robin 02/24/2025. She is known to Dr. Rock. She was started on flecainide post procedure, is to wear a 14-day patch monitor in 1 month, will need results available for follow-up appointment. She is being discharged today. Thank you. Marie Cameron APRN.[place] 02/25/2025 11:33 AM Signed Follow up(s) scheduled. Patient to be notified upon discharge. Marie Fang APRN.[facility] 02/25/2025 1:23 PM Signed Cardiac testing reached out to inform me that the monitor will be mailed right away by [employer] (currently there is no way to stop this), the patient should wait 1 month to apply the monitor, I believe she would understand to do this, but please reinforce the instructions. Thank you. Marie Cameron APRN.Vilma Marquez RN 02/25/2025 1:31 PM Signed Called and spoke with Ambika Brown. She voiced understanding that although monitor will be mailed now, she is to wait 1 month before wearing. Relayed 04/13 appointment time/date/location and that monitor results should be available for appt. Vilma Lakhani RN Allergies As of Date: 02/25/2025 Noted Allergy Reaction PROCHLORPERAZINE 12/02/2018 1 - Mental Status Change Comments: Compazine akathesia DIPHENHYDRAMINE 10/05/2022 5 - Intolerance Comments: Heart palpitations, anxiety Date Reviewed: 02/24/2025 Reviewed by: Girish Correa APRN.SCHEDULE CHECKER - Fully Assessed Reason for Visit: Appointment [186] Patient Update [1234] Prescriptions as of 02/25/2025 - flecainide (TAMBOCOR) 100 mg tablet Take 1 tablet by mouth every 12 hours. - promethazine (PHENERGAN) 25 mg tablet 1/2 to 1 po q8h prn headache or nausea - gabapentin (NEURONTIN) 100 mg capsule Take 1 po at onset of migraine if needed repeat in 8 hours - metoprolol tartrate, short acting, (LOPRESSOR) 25 mg tablet Take 1 tablet by mouth two times a day. - lisinopril (ZESTRIL) 20 mg tablet Take 20 mg by mouth two times a day. - ascorbic acid, vitamin C, (VITAMIN C) 500 mg tablet Take 500 mg by mouth once daily. - ondansetron (ZOFRAN) 8 mg tablet FOR NAUSEA. Take on at onset of nausea or migraine,may repeat dose in 8 hours if needed. - naproxen (NAPROSYN) 500 mg tablet Take 1 tablet by mouth two times a day as needed for pain. - levothyroxine (SYNTHROID) 50 mcg tablet Take 50 mcg by mouth every morning. Take On an Empty Stomach - aspirin, enteric coated (ASPIRIN, ENTERIC COATED) 81 mg EC tablet Take 81 mg by mouth daily at bedtime. - cholecalciferol, vitamin D3, (VITAMIN D3 ORAL) Take by mouth once daily. - PNV/FERROUS SULFATE/FOLIC ACID ( MULTIVIT WITH IRON ORAL) Take by mouth daily at bedtime. - albuterol HFA (PROVENTIL HFA, VENTOLIN HFA) 90 mcg/actuation inhaler Inhale 2 Puffs as instructed every 4 hours as needed for Wheezing/Shortness of Breath. Facility-Administered Medications as of 02/25/2025 - aspirin, enteric coated 81 mg tab(s) - lisinopril 20 mg tab(s) (ZESTRIL) - metoprolol tartrate (short acting) 25 mg tab(s) (LOPRESSOR) - albuterol HFA 90 mcg/actuation 2 puff (PROVENTIL HFA, VENTOLIN HFA) - promethazine 12.5-25 mg tab(s) (PHENERGAN) - gabapentin 100 mg cap(s) (NEURONTIN) - levothyroxine 50 mcg tab(s) (SYNTHROID) - acetaminophen 650 mg tab(s) (TYLENOL) - HYDROcodone 5 mg - acetaminophen 325 mg tablet (NORCO) - flecainide 50 mg tab(s) (TAMBOCOR) - sodium chloride 0.9 % (flush) 2-10 mL (BD POSIFLUSH) - perflutren lipid microspheres 1.1 mg/mL 1.3 mL injection (DEFINITY) - onabotulinum toxin type A 155 Units injection (BOTOX) Problem List As Of Date 02/25/2025 Noted Resolved Migraines [G43.909] 03/14/2016 Chronic migraine without aura, intractable, wit*10/25/2017 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 *10/25/2017 POTS (postural orthostatic tachycardia syndrome*10/25/2017 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/2017 RLS (restless legs syndrome) [G25.81] 12/17/2017 Neck pain [M54.2] 12/17/2017 Syncope [R55] Palpitations [R00.2] Nonsustained ventricular tachycardia (HCC) [I47* Obesity, Class III, BMI >= 40 [E66.813] 07/15/2021 Paroxysmal supraventricular tachycardia (HCC) [*12/06/2021 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 [facility] CNPN Telephone ([employer]) -------- AMBIKA BROWN ([id number]) 1990 F T Date Time Provider Department 02/25/25 TIFFANIE BECKHAM During your visit today, we recorded the following information about you: Tiffanie Beckham MD 02/25/2025 5:57 PM Signed Patient called to say she was having a left sided visual field blurring and that when she saw her sister, could not see her sister's left eye She says that the symptom is little better than earlier Has been having a headache. She wondered if this was a side effect of Flecainide. Discussed that one concern is a possible ministroke and the other is a possible side effect. Recommended coming to ED for evaluation and imaging. She said she would go to the closest ED which is [place] for her. Asked patient to subsequently notify us of the results of the evaluation. Tiffanie Beckham MD Allergies As of Date: 02/25/2025 Noted Allergy Reaction PROCHLORPERAZINE 12/02/2018 1 - Mental Status Change Comments: Compazine akathesia DIPHENHYDRAMINE 10/05/2022 5 - Intolerance Comments: Heart palpitations, anxiety Date Reviewed: 02/24/2025 Reviewed by: Girish Correa APRN.SCHEDULE CHECKER - Fully Assessed Prescriptions as of 02/25/2025 - flecainide (TAMBOCOR) 100 mg tablet Take 1 tablet by mouth every 12 hours. - promethazine (PHENERGAN) 25 mg tablet 1/2 to 1 po q8h prn headache or nausea - gabapentin (NEURONTIN) 100 mg capsule Take 1 po at onset of migraine if needed repeat in 8 hours - metoprolol tartrate, short acting, (LOPRESSOR) 25 mg tablet Take 1 tablet by mouth two times a day. - lisinopril (ZESTRIL) 20 mg tablet Take 20 mg by mouth two times a day. - ascorbic acid, vitamin C, (VITAMIN C) 500 mg tablet Take 500 mg by mouth once daily. - ondansetron (ZOFRAN) 8 mg tablet FOR NAUSEA. Take on at onset of nausea or migraine,may repeat dose in 8 hours if needed. - naproxen (NAPROSYN) 500 mg tablet Take 1 tablet by mouth two times a day as needed for pain. - levothyroxine (SYNTHROID) 50 mcg tablet Take 50 mcg by mouth every morning. Take On an Empty Stomach - aspirin, enteric coated (ASPIRIN, ENTERIC COATED) 81 mg EC tablet Take 81 mg by mouth daily at bedtime. - cholecalciferol, vitamin D3, (VITAMIN D3 ORAL) Take by mouth once daily. - PNV/FERROUS SULFATE/FOLIC ACID ( MULTIVIT WITH IRON ORAL) Take by mouth daily at bedtime. - albuterol HFA (PROVENTIL HFA, VENTOLIN HFA) 90 mcg/actuation inhaler Inhale 2 Puffs as instructed every 4 hours as needed for Wheezing/Shortness of Breath. 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 *10/25/2017 POTS (postural orthostatic tachycardia syndrome*10/25/2017 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/2017 RLS (restless legs syndrome) [G25.81] 12/17/2017 Neck pain [M54.2] 12/17/2017 Syncope [R55] Palpitations [R00.2] Nonsustained ventricular tachycardia (HCC) [I47* Obesity, Class III, BMI >= 40 [E66.813] 07/15/2021 Paroxysmal supraventricular tachycardia (HCC) [*12/06/2021 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] 12/15/2024 Hypothyroid [E03.9] 12/15/2024 Implantable loop recorder present [Z95.818] 09/28/2022 Metabolic syndrome [E88.810] 08/02/2022 Morbid obesity (HCC) [E66.01] 12/15/2024 Obstructive sleep apnea syndrome [G47.33] 09/21/2022 V-tach (HCC) [I47.20] 01/13/2025 Status post ablation operation for arrhythmia [*02/25/2025 PVC (premature ventricular contraction) [I49.3] 02/25/2025 Encounter Status:Closed by TIFFANIE BECKHAM on 02/25/[address] [facility] [address] BRAIN ATTACK WO IVCONon 0 02-25-2025 CT BRAIN ATTACK WO IVCON * * *Final Report* * * DATE OF EXAM: Feb 25 2025 7:16PM [facility] 0502 - CT BRAIN ATTACK WO IVCON / PROCEDURE REASON: Focal neuro deficit, new, fixed, or worsening, < 4.5 hours, stroke suspected * * * * Physician Interpretation * * * * EXAMINATION: CT BRAIN ATTACK WO IVCON CLINICAL HISTORY: Brain attack. TECHNIQUE: Routine CT of the brain without IV contrast. MQ: CTBA_4 CT Radiation dose: Integrated CT Dose-Length Product (DLP) for this visit = 758 mGy*cm CT Dose Reduction Employed: Automated exposure control(AEC) and iterative recon COMPARISON: MRI performed 03/15/2016 RESULT: Acute ischemic change: None. ASPECT Score = 10 Hemorrhage: No evidence of acute intracranial hemorrhage. ECASS hemorrhagic transformation score: Not Applicable Mass Lesion / Mass Effect: There is no evidence of an intracranial mass or extraaxial fluid collection. No significant mass effect. Chronic change: None apparent. Parenchyma: There is no significant volume loss. The brain parenchyma is otherwise within normal limits for age. Ventricles: Normal caliber and morphology. Other: The visualized calvarium, skull base, orbits and extracranial soft tissues are normal. Localizer images: No additional findings. IMPRESSION: 1. No evidence of acute intracranial hemorrhage. 2. No CT signs of acute stroke. CRITICAL TEST/RESULTS: Notification initiated at 02/25/2025 7:[address] Lauren on 02/25/2025 7:21 PM . CR_1 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: ALLEN Transcribe Date/Time: Feb 25 2025 7:17P Dictated by : NASH COON MD This examination was interpreted and the report reviewed and electronically signed by: NASH COON MD on Feb 25 2025 7:22PM EST [id number] CRITICAL!! Invalid Interpretation Code [facility] CTA HEAD W IVCONon CTA HEAD W IVCON * * *Final Report* * * DATE OF EXAM: Feb 25 2025 7:21PM [facility] 0022 - CTA HEAD W IVCON / PROCEDURE REASON: Focal neuro deficit, new, fixed, or worsening, < 4.5 hours, stroke suspected * * * * Physician Interpretation * * * * EXAMINATION: CTA NECK W IVCON, CTA HEAD W IVCON HISTORY: Acute stroke symptoms TECHNIQUE: Spiral high resolution axial images were obtained through the head, neck and superior mediastinum following bolus administration of intravenous contrast for CT angiography. 3D maximum intensity projection images were created, reviewed and archived . MQ: CTAHN_4 Contrast: 100 mL Omnipaque [address] Radiation dose: Integrated Dose-Length Product (DLP) for this visit = 555 mGy*cm. CT Dose Reduction Employed: Automated exposure control(AEC) and iterative recon COMPARISON: MRI performed 03/15/2016 RESULT: BRAIN: Evaluation of the individual slices of the CTA demonstrates no evidence of an acute stroke. ASPECT Score = 10 Hemorrhage: No clear evidence of acute intracranial hemorrhage within the constraints of this contrast enhanced acquisition. ECASS hemorrhagic transformation score: Not Applicable NECK: Soft tissues: The soft tissue planes are maintained throughout. No evidence of a soft tissue mass in the neck or superior mediastinum. No significant lymphadenopathy is seen. Spine: There is straightening of the cervical spine. Mild degenerative changes are present. Lung apices: The visualized lung apices are clear. CT ARTERIOGRAM: Extracranial Circulation: Aortic Arch: There is a normal branching pattern from the aortic arch. There is no significant stenosis in the proximal brachiocephalic vessels. Carotid Stenosis: Right Common: No significant stenosis. Right Internal Carotid Plaque: There is motion artifact at the right carotid bulb, that slightly limits the evaluation of the proximal right internal carotid artery. No significant stenosis is identified Right Internal Carotid Stenosis (% by NASCET Criteria): Slight study. No significant stenosis identified. Left Common: No significant stenosis. Left Internal Carotid Plaque: No significant plaque formation. Left Internal Carotid Stenosis (% by NASCET Criteria): 0 Cervical Vertebral Arteries: Patency: Bilateral Dominance: Left Intracranial Circulation: Anterior Circulation: Both internal carotid arteries are patent. Small bilateral posterior communicating arteries. Both middle and anterior cerebral arteries are patent, with some limitation to distal vessel detail. Vertebrobasilar Circulation: Both vertebral arteries and the basilar artery are patent. Both posterior cerebral arteries appear patent. Distal vessel detail is slightly limited. Sports Editor (topogram) images: No additional findings. IMPRESSION: 1. No evidence of significant carotid or vertebral artery stenosis. 2. No evidence of intracranial vascular stenosis or occlusion, with some limitation of distal vessel detail noted. Arterial blood flow was measured to detect acute large vessel occlusion by computer aided detection software: Not Performed. Concordance between software and imaging review: Not Applicable. 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: ALLEN Transcribe Date/Time: Feb 25 2025 7:22P Dictated by : NASH COON MD This examination was interpreted and the report reviewed and electronically signed by: NASH COON MD on Feb 25 2025 7:33PM EST [id number] [facility] CTA NECK W IVCONon CTA NECK W IVCON * * *Final Report* * * DATE OF EXAM: Feb 25 2025 7:21PM [facility] 0024 - CTA NECK W IVCON / PROCEDURE REASON: Focal neuro deficit, new, fixed, or worsening, < 4.5 hours, stroke suspected * * * * Physician Interpretation * * * * EXAMINATION: CTA NECK W IVCON, CTA HEAD W IVCON HISTORY: Acute stroke symptoms TECHNIQUE: Spiral high resolution axial images were obtained through the head, neck and superior mediastinum following bolus administration of intravenous contrast for CT angiography. 3D maximum intensity projection images were created, reviewed and archived . MQ: CTAHN_4 Contrast: 100 mL Omnipaque [address] Radiation dose: Integrated Dose-Length Product (DLP) for this visit = 555 mGy*cm. CT Dose Reduction Employed: Automated exposure control(AEC) and iterative recon COMPARISON: MRI performed 03/15/2016 RESULT: BRAIN: Evaluation of the individual slices of the CTA demonstrates no evidence of an acute stroke. ASPECT Score = 10 Hemorrhage: No clear evidence of acute intracranial hemorrhage within the constraints of this contrast enhanced acquisition. ECASS hemorrhagic transformation score: Not Applicable NECK: Soft tissues: The soft tissue planes are maintained throughout. No evidence of a soft tissue mass in the neck or superior mediastinum. No significant lymphadenopathy is seen. Spine: There is straightening of the cervical spine. Mild degenerative changes are present. Lung apices: The visualized lung apices are clear. CT ARTERIOGRAM: Extracranial Circulation: Aortic Arch: There is a normal branching pattern from the aortic arch. There is no significant stenosis in the proximal brachiocephalic vessels. Carotid Stenosis: Right Common: No significant stenosis. Right Internal Carotid Plaque: There is motion artifact at the right carotid bulb, that slightly limits the evaluation of the proximal right internal carotid artery. No significant stenosis is identified Right Internal Carotid Stenosis (% by NASCET Criteria): Slight study. No significant stenosis identified. Left Common: No significant stenosis. Left Internal Carotid Plaque: No significant plaque formation. Left Internal Carotid Stenosis (% by NASCET Criteria): 0 Cervical Vertebral Arteries: Patency: Bilateral Dominance: Left Intracranial Circulation: Anterior Circulation: Both internal carotid arteries are patent. Small bilateral posterior communicating arteries. Both middle and anterior cerebral arteries are patent, with some limitation to distal vessel detail. Vertebrobasilar Circulation: Both vertebral arteries and the basilar artery are patent. Both posterior cerebral arteries appear patent. Distal vessel detail is slightly limited. Sports Editor (topogram) images: No additional findings. IMPRESSION: 1. No evidence of significant carotid or vertebral artery stenosis. 2. No evidence of intracranial vascular stenosis or occlusion, with some limitation of distal vessel detail noted. Arterial blood flow was measured to detect acute large vessel occlusion by computer aided detection software: Not Performed. Concordance between software and imaging review: Not Applicable. 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: PSCEnrrique Transcribe Date/Time: Feb 25 2025 7:22P Dictated by : NASH COON MD This examination was interpreted and the report reviewed and electronically signed by: NASH COON MD on Feb 25 2025 7:33PM EST [id number] [facility] ECHO LIMITEDon 02-25-2025 ECHO LIMITED Echocardiography Rep ort: [facility] Date of service: 02/25/2025 10:35:05 AM [facility] Ordering physician: HECTOR ROBIN Indication: S/P PVC ablation Technologist: Giselle Bruce [facility] Interpreting physician: Omkar Simmons MD PATIENT: Name: MRS. AMBIKA BROWN : 1990 Age: 35 years Gender: F History of hypertension and diabetes mellitus. Previous cardiovascular interventions: PVC ablation (02/24/2026) Primary rhythm: sinus. Height: 170.20 cm BSA: 2.70 m Weight: 153.77 kg BMI: 53.1 kg/m Heart rate 70 bpm Blood pressure 95/54 mmHg Color Doppler was utilized to interrogate the cardiac valves assessed and spectral Doppler was utilized to determine the flow velocities and pressure gradients reported in this exam. Myocardial strain analysis was performed in this exam to aid in the assessment of cardiac function. MEASUREMENTS: Value Indexed Normal Left atrial volume 57 ml (4ch A-L) 21 ml/m Nima <= 34 LV ID (diastole) 5.4 cm (2D) 2.00 cm/m LV ID (systole) 3.7 cm (2D) 1.38 cm/m IVS, leaflet tips 1.0 cm (2D) Posterior wall thickness 0.9 cm (2D) Left ventricular mass 194 g (2D) 72 g/m Global peak long strain -17.7 % LV stroke volume 76 ml (2D biplane) LV end diastolic volume 132 ml (2D biplane) 49.0 ml/m 29<=EDVi<62 LV end systolic volume 56 ml (2D biplane) 20.9 ml/m Ejection Fraction 57 % (2D biplane) EF > 54 FINDINGS: LEFT VENTRICLE The left ventricle is normal in size. There is no left ventricular hypertrophy. Left ventricular systolic function is normal globally. Global LV myocardial strain is normal. Normal left ventricular diastolic function. Mitral annular lateral E/e': 6.3. Mitral annular septal E/e': 10.8. Wall Motion: All scored segments are normal. RIGHT VENTRICLE The right ventricle is normal in size. Right ventricular systolic function is normal. RV systolic tissue Doppler velocity is 12.9 cm/s. Estimated right ventricular systolic pressure is not reported due to an insufficient tricuspid regurgitation signal. Estimated right atrial pressure is 3 mmHg based on IVC assessment. LEFT ATRIUM The left atrial cavity is normal in size. RIGHT ATRIUM The right atrial cavity is normal in size. Inferior Vena Cava: The inferior vena cava appears normal measuring 1.6 cm. The vessel decreases greater than 50 percent with inspiration. MITRAL VALVE There is trace mitral valve regurgitation. There is no thickening. The pressure half time is 64 msec. The peak mitral E/A ratio is 1.29. The average mitral E/e' ratio is 8.5. The mitral flow deceleration time is 222 msec. TRICUSPID VALVE The tricuspid valve leaflets are structurally normal. There is trace tricuspid valve regurgitation. The hepatic venous pattern showed normal systolic flow. AORTIC VALVE There is no aortic valve regurgitation. Tricuspid aortic valve. There is no thickening. PULMONIC VALVE The pulmonic valve was not seen or not interrogated. PERICARDIUM There is no pericardial effusion. CONCLUSIONS: - Exam indication: S/P PVC ablation - The left ventricle is normal in size. There is no left ventricular hypertrophy. Left ventricular systolic function is normal. EF = 57 5% (2D biplane) Normal left ventricular diastolic function. Global peak long strain -17.7 % - The right ventricle is normal in size. Right ventricular systolic function is normal. RV systolic tissue Doppler velocity is 12.9 cm/s. - There is no pericardial effusion. - Exam was compared with the prior CC echocardiographic exam performed on 01/13/2025. There is no significant change. * * * Final * * * CC [facility] [employer] [facility] Image : [id number] [facility] ED NOTEon 02-25-2025 ED NOTE HNO ID: [id number] Author: ENEIDA YANEZ, MARGARITA Service: Emergency Medicine Author Type: Registered Nurse Type: ED Notes Filed: 02/25/2025 19:05 Note Text: Multiple attempts at a line unsuccessful. Resident Leonidas informed. [facility] ED NOTE HNO ID: [id number] Author: CHRISTIAN PRADO RN Service: ? Author Type: Registered Nurse Type: ED Notes Filed: 02/25/2025 19:05 Note Text: Unable to obtain IV acces X2, Dr. Lauren notified. Pt to CT with Eneida AVILA at this time. [facility] ED PROV NOTEon 02-25-2025 ED PROV NOTE HNO ID: [id number] Author: EDUARD JETT MD Service: Emergency Medicine Author Type: Resident Type: ED Provider Notes Filed: 02/27/2025 20:13 Note Text: -------- Attestation signed by Eduard Jett MD at 02/27/2025 8:13 PM Attending Note I evaluated the patient and personally participated in the pedersen components. I agree with the resident's findings and plan as documented and have discussed the case and management of the patient's care with the resident. Patient presents for evaluation of strokelike symptoms history of migraines history of hemiplegic migraines. She states she had a SVT ablation done yesterday and was discharged today. The patient denies any fevers or chills. Stroke team activated due to some focal deficits as per documented by the resident. Given that the patient is not a TNK candidate she will be admitted to the [facility] she was treated with a migraine cocktail and her symptoms resolved. Please see documentation by the resident. Critical Care I spent a total of 30 minutes of critical care time in the evaluation and management of this patient. This was necessary to treat or prevent deterioration of the following condition(s): OUTPATIENT ADMITTING CLERK impairment, which the patient had and/or has a high probability of suddenly developing. The patient received Consultation by Stroke Neurology during the time that critical care was provided.I discussed the plan of care with the RESIDENT and agree with the findings documented. Critical care time excludes separately billed procedures. Eduard Jett MD Signature: Eduard Jett MD Date: 02/27/2025 Time: 8:12 PM -------- ED Provider Note Patient Name: Ambika Brown : 1990 SERVICE DATE: 02/25/25 History Patient presents with: Potential Stroke Symptoms: BIBA, s/p ablation yesterday. Started to have headache and change in vision around noon. Now having drifts in all extremities and difficulty speaking. Hx of migraines. HPI Ambika Brown is a 35-year-old female presenting today with several complaints and symptoms. States that her last known well was approximately 2 hours prior to arrival. Otherwise said that before this she was feeling well besides a headache. Patient had an ablation due to SVT yesterday. She has had a headache since. History of migraines. PAST MEDICAL HISTORY Diagnosis Date Asthma (HCC) Chronic hypertension Clotting disorder (HCC) Fibromyalgia GERD (gastroesophageal reflux disease) Gestational diabetes (HCC) Hiatal hernia Hypothyroidism Implantable loop recorder present Insulin resistance Lupus anticoagulant disorder (HCC) Migraines Nonsustained ventricular tachycardia (HCC) Obesity, Class III, BMI >= 40 07/15/2021 Obstructive sleep apnea syndrome 09/21/2022 Has CPAP machine but currently not using- needs to get full mask, still working on this. Challenged with side sleeping and nasal congestion impacting comfort with mask. Suggest cool mist humidifier. Counseled on importance of compliance for and cardiovascular health. improved sleep with pillow adjustment. reports no further snoring Reviewed on 06/18/2023 Palpitations Pancreatitis (HCC) Paroxysmal supraventricular tachycardia (HCC) Pre-eclampsia (HCC) Supraventricular tachycardia (HCC) Syncope Thyroid disease PAST SURGICAL HISTORY Procedure Laterality Date DELIVERY ONLY 05/09/2023 CHOLECYSTECTOMY 2014 DANDC, DIAG AND/OR THERAPEUTIC 2018 EP STUDY 02/13/2022 comprehensive EP study; normal study, no accessory pathways; +dual AV azra pathways but no inducible SVT; [facility] Dr. Rock EPS: [place] ABLATION 02/24/2025 PVC mapped to LV summit, not able to successfully ablate; [facility] Dr. Robin LOOP RECORDER IMPLANT Left 08/2022 [facility]/S[facility] implantable cardiac loop recorder insertion ORAL SURGERY PROCEDURE 2009 wisdom teeth TONSILLECTOMY HX 2004 FAMILY HISTORY Problem Relation Age of Onset Hypothyroidism Mother Cancer Mother glioblastoma Hyperlipidemia Father Hypertension Father Asthma Sister Migraines Sister Bipolar disorder Sister No Known Problems Brother No Known Problems Brother Diabetes Maternal Grandmother Diabetes Maternal Grandfather Stroke Paternal Grandmother other (COVID-19) Paternal Grandmother Heart disease Paternal Grandfather had two open heart surgeries Social History Tobacco Use Smoking status: Never Smokeless tobacco: Never Vaping Use Vaping status: Never Used Substance and Sexual Activity Alcohol use: Never Drug use: Never Sexual activity: Yes Partners: Male control/protection: Condom ALLERGIES Allergen Reactions Prochlorperazine Mental Status Change Compazine akathesia Diphenhydramine Intolerance Heart palpitations, anxiety Review of Systems Unable to (more content not included)... Normal [facility] HIGH SENSITIVITY TROPONIN To n 02-25-2025 Troponin T.cardiac High sensitivity method [Mass/Vol] 397 ng/L High <12 [facility] Comment on above: Order Comment: Otis barfield Type: BLOOD SPECIMEN Ordering Facility: [facility] Address: [address] [place] [address] Performed By: #### 2 4362-6 #### [facility] CLIA [id number] [address] Troponin T.cardiac High sensitivity method [Mass/Vol] 419 ng/L High <12 [facility] Comment on above: Order Comment: Otis barfield Type: BLOOD SPECIMEN Ordering Facility: [facility] Address: [address] [place] [address] Performed By: #### H STNT #### [facility] CLIA [id number] [address] [place] HISTORY PHYSICALon HISTORY PHYSICAL HNO ID: [id number] Author: HAILEY ARMANDO APRN.SCHEDULE CHECKER Service: Hospital Medicine Author Type: Nurse Practitioner Type: H&P Filed: 02/26/2025 03:14 Note Text: RAPID OBSERVATION UNIT HISTORY AND PHYSICAL EXAM SERVICE DATE: 02/25/2025 SERVICE TIME: 2313 Primary Care Physician: Mega Weeks MD NIGHT AND WEEKEND COVERAGE: Unit ext: [phone] Pager [phone] Subjective CHIEF COMPLAINT: headache, vision change, left sided weakness HPI: Ambika Brown is a 35 year old female with history of SVT s/p radiofrequency ablation anterior left ventricle 02/24/2025 (d/c 02/24), HTN, asthma, migraines, HOSEA, hypothyroidism, GERD, and obesity presented to the emergency department due stroke-like symptoms. Woke up from nap around 4pm noticed left vision was blurred. Started to get headache then left sided body weakness; felt off balance, left facial droop, and speech difficulty on route to ED. Symptoms have since resolved other than headache which is improving after droperidol given in ED. States symptoms different than her usual migraine symptoms. Denies URI symptoms, chest pain, palpitations, SOB, nausea/vomiting, pain to extremities. Upon ROU arrival, reports headache improving and denies any vision changes. ED COURSE: CTH negative for acute hemorrhage or stroke CTA HANDN no occlusion or significant stenosis CBC with slight leukocytosis of 13.5 BMP unremarkable Troponin 419 -> 397 Admission requested for neurologic eval PAST MEDICAL HISTORY Diagnosis Date Asthma (HCC) Chronic hypertension Clotting disorder (HCC) Fibromyalgia GERD (gastroesophageal reflux disease) Gestational diabetes (HCC) Hiatal hernia Hypothyroidism Implantable loop recorder present Insulin resistance Lupus anticoagulant disorder (HCC) Migraines Nonsustained ventricular tachycardia (HCC) Obesity, Class III, BMI >= 40 07/15/2021 Obstructive sleep apnea syndrome 09/21/2022 Has CPAP machine but currently not using- needs to get full mask, still working on this. Challenged with side sleeping and nasal congestion impacting comfort with mask. Suggest cool mist humidifier. Counseled on importance of compliance for and cardiovascular health. improved sleep with pillow adjustment. reports no further snoring Reviewed on 06/18/2023 Palpitations Pancreatitis (HCC) Paroxysmal supraventricular tachycardia (HCC) Pre-eclampsia (HCC) Supraventricular tachycardia (HCC) Syncope Thyroid disease PAST SURGICAL HISTORY Procedure Laterality Date DELIVERY ONLY 05/09/2023 CHOLECYSTECTOMY 2013 DANDC, DIAG AND/OR THERAPEUTIC 2017 EP STUDY 02/13/2022 comprehensive EP study; normal study, no accessory pathways; +dual AV azra pathways but no inducible SVT; [facility] Dr. Rock EPS: [place] ABLATION 02/24/2025 PVC mapped to LV summit, not able to successfully ablate; [facility] Dr. Robin LOOP RECORDER IMPLANT Left 08/2022 Harmon/SJM implantable cardiac loop recorder insertion ORAL SURGERY PROCEDURE 2009 wisdom teeth TONSILLECTOMY HX 2005 FAMILY HISTORY Problem Relation Age of Onset Hypothyroidism Mother Cancer Mother glioblastoma Hyperlipidemia Father Hypertension Father Asthma Sister Migraines Sister Bipolar disorder Sister No Known Problems Brother No Known Problems Brother Diabetes Maternal Grandmother Diabetes Maternal Grandfather Stroke Paternal Grandmother other (COVID-19) Paternal Grandmother Heart disease Paternal Grandfather had two open heart surgeries Social History Tobacco Use Smoking status: Never Smokeless tobacco: Never Vaping Use Vaping status: Never Used Substance Use Topics Alcohol use: Never Drug use: Never MEDICATIONS: Reviewed onabotulinum toxin type A 155 Units injection (BOTOX), 155 Units, INTRADERMAL, q 3 MONTHS, Dalila Fernandez, FORMULA CHECKER.SCHEDULE CHECKER, 155 Units at 08/01/24 1300 flecainide (TAMBOCOR) 100 mg tablet, Take 1 tablet by mouth every 12 hours., Disp: 180 tablet, Rfl: 1, 02/25/2025 Morning promethazine (PHENERGAN) 25 mg tablet, 1/2 to 1 po q8h prn headache or nausea, Disp: 45 tablet, Rfl: 11, Taking gabapentin (NEURONTIN) 100 mg capsule, Take 1 po at onset of migraine if needed repeat in 8 hours, Disp: 30 capsule, Rfl: 5, Taking metoprolol tartrate, short acting, (LOPRESSOR) 25 mg tablet, Take 1 tablet by mouth two times a day., Disp: , Rfl: , 02/25/2025 Morning lisinopril (ZESTRIL) 20 mg tablet, Take 20 mg by mouth two times a day., Disp: , Rfl: , 02/25/2025 Morning ascorbic acid, vitamin C, (VITAMIN C) 500 mg tablet, Take 500 mg by mouth once daily., Disp: , Rfl: , Taking ondansetron (ZOFRAN) 8 mg tablet, FOR NAUSEA. Take on at onset of nausea or migraine,may repeat dose in 8 hours if needed., Disp: 20 tablet, Rfl: 4, Taking naproxen (NAPROSYN) 500 mg tablet, Take 1 tablet by mouth two times a day as needed for pain., Disp: 60 tablet, Rfl: 3, Taking As Needed levothyroxine (SYNTHROID) 50 mcg tablet, Ta (more content not included)... Normal [facility] PT panel Coag (PPP)on 2024 INR Coag (PPP) [Relative time] 1.1 {INR} Normal 0.9-1.3 [facility] Comment on above: Order Comment: Speci men Type: BLOOD SPECIMEN Ordering Facility: [facility] Address: [address], [place] [address] Result Comment: Lia min K Antagonist (VKA) Therapeutic Range: INR 2 to 3 (Target INR of 2.5) Note: For patients treated with VKA drugs, such as warfarin, the [place] [employer] 2012 Guideline recommends a therapeutic INR range of 2 to 3 (target INR of 2.5). This recommendation includes high-risk patients with antiphospholipid syndrome with previous arterial or venous thromboembolism, current-generation mechanical or bioprosthetic aortic heart valve replacement. Note: Patients with mechanical aortic valve replacement and additional risk factors for thromboembolic events (atrial fibrillation, previous thromboembolism, LV dysfunction, hypercoagulable conditions) or an older generation mechanical AVR (i.e., ball in-Cage) or any mechanical MVR should have a INR therapeutic range of 2.5 to 3.5 (target INR of 3). Tani GH, et al. Chest 2012, 141:7S-47S Berna RA, et al. [facility] 2017, 70: 252-289 Performed By: #### H STNT #### [facility] CLIA [id number] [address] PT Coag (PPP) [Time] 11.9 s Normal 9.7-13.0 [facility] Comment on above: Order Comment: Otis barfield Type: BLOOD SPECIMEN Ordering Facility: [facility] Address: [address] [place] [address] Performed By: #### H STNT #### [facility] CLIA [id number] [address] aPTT PPPon 02-25-2025 aPTT Coag (PPP) [Time] 27.9 s Normal 23.0-32.4 [facility] Comment on above: Order Comment: Otis barfield Type: BLOOD SPECIMEN Ordering Facility: [facility] Address: [address] [place] [address] Performed By: #### H STNT #### [facility] CLIA [id number] [address] [place] ANES POSTPROC EVALon 025 ANES POSTPROC EVAL HNO ID: [id number] Author: RAÚL LOBATO MD Service: Anesthesiology Author Type: Anesthesiologist Type: Anesthesia Postprocedure Evaluation Filed: 02/24/2025 17:26 Note Text: POST ANESTHESIA EVALUATION NOTE : 1990 Procedure Summary Date: 02/24/25 Room / Location: [facility] [place] [facility] Anesthesia Start: 1131 Anesthesia Stop: 1643 Procedure: COMPLETE EPS W/SVT ABL W/WO 3D MAP LA PACE REC (Cardiac) Diagnosis: Paroxysmal supraventricular tachycardia (HCC) Palpitations (Paroxysmal supraventricular tachycardia (HCC) [I47.10]) (Palpitations [R00.2]) Surgeons: Hector Robin MD Responsible Provider: Raúl Lobato MD Anesthesia Type: MAC ASA Status: 3 Anesthesia Type: MAC Last Vitals Vitals Value Taken Time BP 135/91 02/24/25 1703 Temp 02/24/25 1703 Pulse 98 02/24/25 1703 Resp 18 02/24/25 1703 SpO2 99 02/24/25 1703 Post Anesthesia Patient Status Patient Evaluation: PACU. PACU/ICU Patient Condition: stable. Anticipated Disposition: inpatient floor planned admission. Neurological Status: aware and responsive. Pulmonary Status: breathing comfortably on supplemental oxygen Airway Control: returned to baseline unsupported. Cardiovascular Status: stable. Pain Management: clinically adequate Postoperative Hydration: acceptable. Intraoperative Events: no significant anesthesia events Recommendation: continue current plan of care. Anesthesia Observations No Documentation SIGNATURE: Raúl Lobato MD PATIENT NAME: Ambika Brown DATE: February 24, 2025 TIME: 5:03 PM CSN: [id number] Normal [facility] ANES PRE-OPon 02-24-2025 ANES PRE-OP HNO ID: [id number] Author: RAÚL LOBATO MD Service: Anesthesiology Author Type: Anesthesiologist Type: Anesthesia Preprocedure Evaluation Filed: 02/24/2025 11:24 Note Text: ANESTHESIOLOGY DAY OF SURGERY NOTE : 1990 Procedure Information Date/Time: 02/24/25 1130 Procedure: COMPLETE EPS W/SVT ABL W/WO 3D MAP LA PACE REC (Cardiac) Location: [facility] [place] [facility] Surgeons: Hector Robin MD Estimated body mass index is 53.09 kg/m? as calculated from the following: Height as of 01/13/25: 170.2 cm (5' 7). Weight as of 02/19/25: 153.8 kg (339 lb). 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 Tracheostomy tube not present Mallampati: II. TM distance: >3 FB. Neck ROM: full ROM without neurological symptoms. Mouth opening: adequate. Short neck: no. Thick neck: yes DENTAL Dental findings: teeth intact. II - ANESTHESIA PLAN ASA Score: 3 Anesthetic Plan: MAC NPO Status: adequate Beta Sergo Monitoring Plan Monitoring plan: standard ASA. Post Procedure Analgesic Plan Postoperative analgesic plan: multimodal analgesia and per surgical service. Informed Consent Anesthetic risks, benefits, alternatives, personnel and consent discussed: yes. Patient / Responsible [employer] agrees to proceed: yes Patient / Surrogate agrees to blood products: Yes Vitals Value Taken Time BP 144/75 02/24/25 1045 Pulse 100 02/24/25 1045 Resp 17 02/24/25 1045 Temp SpO2 97 % 02/24/25 1045 No current facility-administered medications on file as of 02/24/2025. Outpatient Medications as of 02/24/2025 Medication Sig lisinopril (ZESTRIL) 20 mg tablet Take 20 mg by mouth two times a day. aspirin, enteric coated (ASPIRIN, ENTERIC COATED) 81 mg EC tablet Take 81 mg by mouth daily at bedtime. ascorbic acid, vitamin C, (VITAMIN C) 500 mg tablet Take 500 mg by mouth once daily. ondansetron (ZOFRAN) 8 mg tablet FOR NAUSEA. Take on at onset of nausea or migraine,may repeat dose in 8 hours if needed. naproxen (NAPROSYN) 500 mg tablet Take 1 tablet by mouth two times a day as needed for pain. levothyroxine (SYNTHROID) 50 mcg tablet Take 50 mcg by mouth every morning. Take On an Empty Stomach cholecalciferol, vitamin D3, (VITAMIN D3 ORAL) Take by mouth once daily. PNV/FERROUS SULFATE/FOLIC ACID ( MULTIVIT WITH IRON ORAL) Take by mouth daily at bedtime. albuterol HFA (PROVENTIL HFA, VENTOLIN HFA) 90 mcg/actuation inhaler Inhale 2 Puffs as instructed every 4 hours as needed for Wheezing/Shortness of Breath. I have interviewed and examined the patient. I have reviewed the medical record and/or the pre-anesthesia evaluation, pertinent labs, and test results. This contains updated information obtained within 48 hours of Surgery/Procedure. SIGNATURE: Raúl Lobato MD PATIENT NAME: Abmika Brown DATE: February 24, 2025 TIME: 10:48 AM CSN: [id number] Normal [facility] Basic metabolic 2000 panelon 02-24-2025 Anion gap [Moles/Vol] 12 mmol/L Normal 8-15 [facility] Comment on above: Order Comment: Speci men Type: BLOOD SPECIMEN Ordering Facility: [facility] Address: [address] [place] [address] Performed By: #### 2 4362-6 #### [facility] CLIA [id number] 1 [place] [address] [place] Calcium [Mass/Vol] 8.9 mg/dL Normal 8.5-10.2 [facility] Comment on above: Order Comment: Speci men Type: BLOOD SPECIMEN Ordering Facility: [facility] Address: [address] [place] [address] Performed By: #### 2 4362-6 #### [facility] CLIA [id number] 1 [place] [address] [place] Chloride [Moles/Vol] 102 mmol/L Normal 98-107 [facility] Comment on above: Order Comment: Speci men Type: BLOOD SPECIMEN Ordering Facility: [facility] Address: [address] [place] [address] Performed By: #### 2 4362-6 #### [facility] CLIA [id number] 1 [place] [address] [place] CO2 [Moles/Vol] 25 mmol/L Normal 22-30 [facility] Comment on above: Order Comment: Speci men Type: BLOOD SPECIMEN Ordering Facility: [facility] Address: [address] [place] [address] Performed By: #### 2 4362-6 #### [facility] CLIA [id number] [address] OF [facility] Creatinine [Mass/Vol] 0.58 mg/dL Normal 0.58-0.96 [facility] Comment on above: Order Comment: Otis carolyne Type: BLOOD SPECIMEN Ordering Facility: [facility] Address: [address] [place] [address] Performed By: #### 2 4362-6 #### [facility] CLIA [id number] [address] Creatinine and Glomerular filtration rate.predicted panel (S/P/Bld) 122 mL/min/1.73m??? Normal >=60 [facility] Comment on above: Order Comment: Otis carolyne Type: BLOOD SPECIMEN Ordering Facility: [facility] Address: [address] [place] [address] Result Comment: Duy mated Glomerular Filtration Rate (eGFR) is calculated using the 2020 CKD-EPI creatinine equation. This equation utilizes serum creatinine, sex, and age as parameters. The creatinine assay has traceable calibration to isotope dilution-mass spectrometry. Refer to KDIGO guidelines for clinical interpretation. In patients with unstable renal function, e.g. those with acute kidney injury, the eGFR may not accurately reflect actual GFR. Performed By: #### 2 4362-6 #### [facility] CLIA [id number] [address] [place] [address] OF [facility] Glucose [Mass/Vol] 88 mg/dL Normal 74-99 [facility] Comment on above: Order Comment: Otis carolyne Type: BLOOD SPECIMEN Ordering Facility: [facility] Address: [address] [place] [address] Result Comment: The [place] [employer] (ADA) provides guidance for cutoff values for fasting glucose and random glucose. The ADA defines fasting as no caloric intake for at least 8 hours. Fasting plasma glucose results between 100 to 125 mg/dL indicate increased risk for diabetes (prediabetes). Fasting plasma glucose results greater than or equal to 126 mg/dL meet the criteria for diagnosis of diabetes. In the absence of unequivocal hyperglycemia, results should be confirmed by repeat testing. In a patient with classic symptoms of hyperglycemia or hyperglycemic crisis, random plasma glucose results greater than or equal to 200 mg/dL meet the criteria for diagnosis of diabetes. Reference: Standards of Medical Care in Diabetes 2016, [place] [employer]. Diabetes Care. 2016.39(Suppl 1). Performed By: #### 2 4362-6 #### [facility] CLIA [id number] [address] Potassium [Moles/Vol] 4.1 mmol/L Normal 3.7-5.1 [facility] Comment on above: Order Comment: Speci men Type: BLOOD SPECIMEN Ordering Facility: [facility] Address: [address] [place] [address] Performed By: #### 2 4362-6 #### [facility] CLIA [id number] [address] Sodium [Moles/Vol] 139 mmol/L Normal 136-144 [facility] Comment on above: Order Comment: Stevei men Type: BLOOD SPECIMEN Ordering Facility: [facility] Address: [address] [place] [address] Performed By: #### 2 4362-6 #### [facility] CLIA [id number] [address] Urea nitrogen [Mass/Vol] 9 mg/dL Normal 7-21 [facility] Comment on above: Order Comment: Speci men Type: BLOOD SPECIMEN Ordering Facility: [facility] Address: [address] [place] [address] Performed By: #### 2 4362-6 #### [facility] CLIA [id number] [address] [place] CBC panel Auto (Bld)on 02-24 Erythrocyte distribution width (RBC) [Ratio] 15.8 % High 11.5-15.0 [facility] Comment on above: Order Comment: Speci men Type: BLOOD SPECIMEN Ordering Facility: [facility] Address: [address] [place] [address] Performed By: #### 2 4362-6 #### [facility] CLIA [id number] [address] Hematocrit (Bld) [Volume fraction] 42.4 % Normal 36.0-46.0 [facility] Comment on above: Order Comment: Speci men Type: BLOOD SPECIMEN Ordering Facility: [facility] Address: [address] [place] [address] Performed By: #### 2 4362-6 #### [facility] CLIA [id number] [address] Hemoglobin (Bld) [Mass/Vol] 13.3 g/dL Normal 11.5-15.5 [facility] Comment on above: Order Comment: Speci men Type: BLOOD SPECIMEN Ordering Facility: [facility] Address: [address] [place] [address] Performed By: #### 2 4362-6 #### [facility] CLIA [id number] [address] MCH (RBC) [Entitic mass] 25.1 pg Low 26.0-34.0 [facility] Comment on above: Order Comment: Speci men Type: BLOOD SPECIMEN Ordering Facility: [facility] Address: [address] [place] [address] Performed By: #### 2 4362-6 #### [facility] CLIA [id number] [address] OF [facility] MCHC (RBC) [Mass/Vol] 31.4 g/dL Normal 30.5-36.0 [facility] Comment on above: Order Comment: Speci men Type: BLOOD SPECIMEN Ordering Facility: [facility] Address: [address] [place] [address] Performed By: #### 2 4362-6 #### [facility] CLIA [id number] [address] MCV (RBC) [Entitic vol] 80.0 fL Normal 80.0-100.0 [facility] Comment on above: Order Comment: Speci men Type: BLOOD SPECIMEN Ordering Facility: [facility] Address: [address] [place] [address] Performed By: #### 2 4362-6 #### [facility] CLIA [id number] [address] Nucleated RBC (Bld) [#/Vol] 10*3/uL Normal <0.01 [facility] Comment on above: Order Comment: Speci men Type: BLOOD SPECIMEN Ordering Facility: [facility] Address: [address] [place] [address] Performed By: #### 2 4362-6 #### [facility] CLIA [id number] [address] [place] Platelet mean volume (Bld) [Entitic vol] 11.4 fL Normal 9.0-12.7 [facility] Comment on above: Order Comment: Speci men Type: BLOOD SPECIMEN Ordering Facility: [facility] Address: [address] [place] [address] Performed By: #### 2 4362-6 #### [facility] CLIA [id number] [address] [place] Platelets (Bld) [#/Vol] 222 10*3/uL Normal 150-400 [facility] Comment on above: Order Comment: Speci men Type: BLOOD SPECIMEN Ordering Facility: [facility] Address: [address] [place] [address] Performed By: #### 2 4362-6 #### [facility] CLIA [id number] [address] [place] RBC (Bld) [#/Vol] 5.30 10*6/uL High 3.90-5.20 [facility] Comment on above: Order Comment: Speci men Type: BLOOD SPECIMEN Ordering Facility: [facility] Address: [address] [place] [address] Performed By: #### 2 4362-6 #### [facility] CLIA [id number] [address] WBC (Bld) [#/Vol] 11.62 10*3/uL High 3.70-11.00 [facility] Comment on above: Order Comment: Speci men Type: BLOOD SPECIMEN Ordering Facility: [facility] Address: [address] [place] [address] Performed By: #### 2 4362-6 #### [facility] CLIA [id number] [address] HCG QUALITATIVEon 02-24-2025 HCG, QUALITATIVE Negative Normal Negative [facility] Comment on above: Order Comment: Speci men Type: BLOOD SPECIMEN Ordering Facility: [facility] Address: [address] [place] [address] Performed By: #### H STNT #### [facility] CLIA [id number] [address] HISTORY PHYSICALon HISTORY PHYSICAL HNO ID: [id number] Author: GIRISH CORREA APRN.SCHEDULE CHECKER Service: Electrophysiology Author Type: Nurse Practitioner Type: H&P Filed: 02/24/2025 11:29 Note Text: HISTORY AND PHYSICAL: ELECTROPHYSIOLOGY SERVICE SERVICE DATE: 02/24/2025 SERVICE TIME: 11:12 AM PCP: Mega Weeks MD ATTENDING: Hector Robin MD Subjective CHIEF COMPLAINT: Paroxysmal supraventricular tachycardia (HCC) [I47.10] Palpitations [R00.2] HISTORY OF PRESENT ILLNESS: Mrs. Brown is a pleasant 35 year old female with past medical history including asthma, hypertension, clotting disorder, GERD, hiatal hernia, hypothyroidism, lupus, migraines, palpitations, PSVT, and VT who presents today for EP study with potential SVT ablation with Dr. Robin. It has been a challenging couple of months for patient. She endorses episodes of SVT increasing in frequency and intensity. These occur at least daily sometimes multiple times per day. Although they are usually brief less than 10 seconds they recur in waves. During which she endorses palpitations, heart racing, dizziness, lightheadedness, shortness of breath, fatigue, near-syncope, and syncope. Patient denies any fevers, aches, or chills. This makes her usual activities such as going to the store or even taking a shower very challenging. Episodes occur with these activities/any exertion and she feels extremely wiped out afterwards. Her last syncopal episode was last week. She denies ever injuring herself with these. She can feel them coming on and gets herself in a safe position such as on a chair or bed. She regains consciousness typically in under a minute. Medications, allergies medical history reviewed with patient. Prior EP study was performed in February 2022 but no sustained tachycardia was inducible. PAST MEDICAL HISTORY Diagnosis Date Asthma (HCC) Chronic hypertension Clotting disorder (HCC) Fibromyalgia GERD (gastroesophageal reflux disease) Gestational diabetes (HCC) Hiatal hernia Hypothyroidism Implantable loop recorder present Insulin resistance Lupus anticoagulant disorder (HCC) Migraines Nonsustained ventricular tachycardia (HCC) Obesity, Class III, BMI >= 40 07/15/2021 Obstructive sleep apnea syndrome 09/21/2022 Has CPAP machine but currently not using- needs to get full mask, still working on this. Challenged with side sleeping and nasal congestion impacting comfort with mask. Suggest cool mist humidifier. Counseled on importance of compliance for and cardiovascular health. improved sleep with pillow adjustment. reports no further snoring Reviewed on 06/18/2023 Palpitations Pancreatitis (HCC) Paroxysmal supraventricular tachycardia (HCC) Pre-eclampsia (HCC) Supraventricular tachycardia (HCC) Syncope Thyroid disease PAST SURGICAL HISTORY Procedure Laterality Date DELIVERY ONLY 05/09/2023 CHOLECYSTECTOMY 2014 DANDC, DIAG AND/OR THERAPEUTIC 2018 EP STUDY 02/13/2022 comprehensive EP study; normal study, no accessory pathways; +dual AV azra pathways but no inducible SVT; CCAG Dr. Rock LOOP RECORDER IMPLANT Left 08/2022 Harmon/SJM implantable cardiac loop recorder insertion ORAL SURGERY PROCEDURE 2009 wisdom teeth TONSILLECTOMY HX 2005 FAMILY HISTORY Problem Relation Age of Onset Hypothyroidism Mother Cancer Mother glioblastoma Hyperlipidemia Father Hypertension Father Asthma Sister Migraines Sister Bipolar disorder Sister No Known Problems Brother No Known Problems Brother Diabetes Maternal Grandmother Diabetes Maternal Grandfather Stroke Paternal Grandmother other (COVID-19) Paternal Grandmother Heart disease Paternal Grandfather had two open heart surgeries Social History Tobacco Use Smoking status: Never Smokeless tobacco: Never Vaping Use Vaping status: Never Used Substance Use Topics Alcohol use: Never Drug use: Never Prior to Admission Medications Prescriptions Last Dose Informant Patient Reported? Taking? PNV/FERROUS SULFATE/FOLIC ACID ( MULTIVIT WITH IRON ORAL) Yes No Sig: Take by mouth daily at bedtime. albuterol HFA (PROVENTIL HFA, VENTOLIN HFA) 90 mcg/actuation inhaler Yes No Sig: Inhale 2 Puffs as instructed every 4 hours as needed for Wheezing/Shortness of Breath. ascorbic acid, vitamin C, (VITAMIN C) 500 mg tablet Yes No Sig: Take 500 mg by mouth once daily. aspirin, enteric coated (ASPIRIN, ENTERIC COATED) 81 mg EC tablet 02/24/2025 Yes Yes Sig: Take 81 mg by mouth daily at bedtime. cholecalciferol, vitamin D3, (VITAMIN D3 ORAL) Yes No Sig: Take by mouth once daily. gabapentin (NEURONTIN) 100 mg capsule No No Sig: Take 1 po at onset of migraine if needed repeat in 8 hours levothyroxine (SYNTHROID) 50 mcg tablet Yes No Sig: Take 50 mcg by mouth every morning. Take On an Empty Stomach lisinopril (ZESTRIL) 20 mg tablet 02/24/2025 Yes Yes Sig: Take 20 mg by mouth two times a day. metoprolol tartrate, shor (more content not included)... Normal [facility] Cardiology Visit Reporton Cardiology Visit Report [facility] [address] [place] [address] OFFICE VISIT Date of Service: 02/20/25 MR#: [id number] Acct: [id number] Name: AMBIKA BROWN Rep #: [id number] : 1990 Provider: GIANFRANCO Reynolds Age/Sex: 34/F Location: [facility] [place] Status: Signed HPI HPI History of Present Illness Details: AMBIKA BROWN, is a 34 F who presents to the office today for a cardiovascular visit. She presented to the hospital in June of 2021with symptoms of palpitations and syncope. She had an episode of syncope in the ER while she was being monitored. She had another episode of syncope while in the PCU. She did have two separate episodes of 2-3 beat run of ventricular tachycardia. She did see Dr. Rock on 12/06/2021 for continued intermittent palpitations with tachycardia. Cardiac monitoring and EKGs during or shortly following episodes have revealed a long RP tachycardia consistent with either sinus tachycardia or atrial tachycardia. Recommendation was to do an EP study with possible ablation. She underwent EP evaluation on 02/13/2022, which was unable to provoke dysrhythmia. Pt did have syncope in March of 2022, she was evaluated at the emergency department 03/22/2022 for syncopal episode. Prior to syncopal episode she noted palpitations and not feeling well. Her EKG on 03/22/2022 showed normal sinus rhythm at a rate of 87 bpm. Her apple watch during time of not feeling well revealed sinus rhythm/sinus tachycardia with infrequent ectopy. She had another episode of syncope a few weeks later. She had a loop recorder placed in 08/2022. Loop recorder interrogation demonstrated 2 questionable atrial fibs episodes but also was a question of sinus with artifact. They were 52 minutes in duration. 2 sinus bradycardia episodes noted. She resumed metoprolol therapy in November 2023. Most recent remote check from 09/2024 on her ILR did not demonstrate any arrhythmias. She does feel that her ILR is not working any longer. Patient presented to the emergency room on 01/06/2025 after a SVT and syncopal episode. She states that she has been having more SVT and near syncopal episodes. 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 Pt did have a 14 day monitor done. She did have multiple runs of VT. She has her ablation scheduled for Sunday. She has been off of her metoprolol for this week. Her symptoms are worse. 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: No Accompanied by: Self Allergies diphenhydramine (From Benadryl) Allergy (Mild, Verified 02/20/25 16:08) Chest tightness prochlorperazine (From Compazine) Allergy (Verified 02/20/25 16:08) Other Medications ???Medication ???Instructions ???Recorded ???Confirmed ???Type levothyroxine 50 mcg tablet 50 mcg PO DAILY thyroid 12/05/22 0 02/20/25 History (Synthroid) ascorbic acid (vitamin C) 500 mg 500 mg PO DAILY suppliment 4 02/20/25 History tablet aspirin 81 mg chewable tablet 81 mg PO DAILY preventative 02/20/25 History cholecalciferol (vitamin D3) 25 25 mcg PO DAILY suppliment 4 02/20/25 History mcg (1,000 unit) tablet gabapentin 100 mg capsule 100 mg PO DAILY PRN pain 09/17/24 02/20/25 History lisinopril 20 mg tablet 20 mg PO BID blood pressure 02/20/25 History ondansetron HCl 8 mg tablet 8 mg PO Q12H PRN nausea and 02/20/25 History vomiting albuterol sulfate 90 mcg/actuation 1 inh inhalation ONCE PRN 02/20/25 History aerosol inhaler shortness of breath or wheezing amlodipine 5 mg tablet (Norvasc) 5 mg PO QDAY blood pressure #90 02/20/25 Rx tabs metoprolol tartrate 25 mg tablet 25 mg PO BID heart #180 tabs 11/1802/20/25 Rx promethazine 25 mg tablet 12.5 - 25 mg PO Q8 PRN nausea 02/0802/20/25 History PFSH Medical History Allergic rhinitis HTN (hypertension), benign BMI 50.0-59.9, adult Obesity (BMI 30-39.9) Obstructive sleep apnea Hypothyroidism Pancreatitis Cholecystectomy planned Implantable loop recorder present SVT (supraventricular tachycardia) History of lupus anticoagulant disorder History of asthma Insulin resistance Migraines Surgical History History of section History of electrophysiologic study (02/13/22) History of tonsillectomy History of cholecystectomy Family History (more content not included)... Normal [facility] Basic metabolic 2000 panelon 02-19-2025 Anion gap [Moles/Vol] 11 mmol/L Normal 8-15 [facility] Comment on above: Order Comment: Speci men Type: BLOOD SPECIMEN Ordering Facility: [facility] Address: [address] [place] [address] Performed By: #### 2 4362-6 #### [facility] CLIA [id number] [address] [place] [address] [place] Calcium [Mass/Vol] 8.9 mg/dL Normal 8.5-10.2 [facility] Comment on above: Order Comment: Speci men Type: BLOOD SPECIMEN Ordering Facility: [facility] Address: [address] [place] [address] Performed By: #### 2 4362-6 #### [facility] CLIA [id number] [address] [place] [address] [place] Chloride [Moles/Vol] 103 mmol/L Normal 98-107 [facility] Comment on above: Order Comment: Speci men Type: BLOOD SPECIMEN Ordering Facility: [facility] Address: [address] [place] [address] Performed By: #### 2 4362-6 #### [facility] CLIA [id number] [address] [place] [address] [place] CO2 [Moles/Vol] 22 mmol/L Normal 22-30 [facility] Comment on above: Order Comment: Speci men Type: BLOOD SPECIMEN Ordering Facility: [facility] Address: [address] [place] [address] Performed By: #### 2 4362-6 #### [facility] CLIA [id number] [address] [place] [address] [place] Creatinine [Mass/Vol] 0.71 mg/dL Normal 0.58-0.96 [facility] Comment on above: Order Comment: Speci men Type: BLOOD SPECIMEN Ordering Facility: [facility] Address: [address] [place] [address] Performed By: #### 2 4362-6 #### [facility] CLIA [id number] [address] [place] [address] [place] Creatinine and Glomerular filtration rate.predicted panel (S/P/Bld) 115 mL/min/1.73m??? Normal >=60 [facility] Comment on above: Order Comment: Otis barfield Type: BLOOD SPECIMEN Ordering Facility: [facility] Address: [address] [place] [address] Result Comment: Duy mated Glomerular Filtration Rate (eGFR) is calculated using the 2020 CKD-EPI creatinine equation. This equation utilizes serum creatinine, sex, and age as parameters. The creatinine assay has traceable calibration to isotope dilution-mass spectrometry. Refer to KDIGO guidelines for clinical interpretation. In patients with unstable renal function, e.g. those with acute kidney injury, the eGFR may not accurately reflect actual GFR. Performed By: #### 2 4362-6 #### [facility] CLIA [id number] [address] [place] [address] [place] Glucose [Mass/Vol] 157 mg/dL High 74-99 [facility] Comment on above: Order Comment: Otis barfield Type: BLOOD SPECIMEN Ordering Facility: [facility] Address: [address] [place] [address] Result Comment: The [place] Diabetes Association (ADA) provides guidance for cutoff values for fasting glucose and random glucose. The ADA defines fasting as no caloric intake for at least 8 hours. Fasting plasma glucose results between 100 to 125 mg/dL indicate increased risk for diabetes (prediabetes). Fasting plasma glucose results greater than or equal to 126 mg/dL meet the criteria for diagnosis of diabetes. In the absence of unequivocal hyperglycemia, results should be confirmed by repeat testing. In a patient with classic symptoms of hyperglycemia or hyperglycemic crisis, random plasma glucose results greater than or equal to 200 mg/dL meet the criteria for diagnosis of diabetes. Reference: Standards of Medical Care in Diabetes 2016, [place] Diabetes Association. Diabetes Care. 2016.39(Suppl 1). Performed By: #### 2 4362-6 #### [facility] CLIA [id number] [address] [place] [address] [place] Potassium [Moles/Vol] 3.7 mmol/L Normal 3.7-5.1 [facility] Comment on above: Order Comment: Speci men Type: BLOOD SPECIMEN Ordering Facility: [facility] Address: [address] [place] [address] Performed By: #### 2 4362-6 #### [facility] CLIA [id number] [address] Sodium [Moles/Vol] 136 mmol/L Normal 136-144 [facility] Comment on above: Order Comment: Speci men Type: BLOOD SPECIMEN Ordering Facility: [facility] Address: [address] [place] [address] Performed By: #### 2 4362-6 #### [facility] CLIA [id number] [address] Urea nitrogen [Mass/Vol] 12 mg/dL Normal 7-21 [facility] Comment on above: Order Comment: Speci men Type: BLOOD SPECIMEN Ordering Facility: [facility] Address: [address] [place] [address] Performed By: #### 2 4362-6 #### [facility] CLIA [id number] [address] CBC W Auto Differential pane l (Bld)on 02-19-2025 Basophils (Bld) [#/Vol] 0.03 10*3/uL Normal <0.11 [facility] Comment on above: Order Comment: Speci men Type: BLOOD SPECIMEN Ordering Facility: [facility] Address: [address] [place] [address] Performed By: #### H STNT #### [facility] CLIA [id number] [address] Basophils/100 WBC (Bld) 0.3 % Normal [facility] Comment on above: Order Comment: Speci men Type: BLOOD SPECIMEN Ordering Facility: [facility] Address: [address] [place] [address] Performed By: #### H STNT #### [facility] CLIA [id number] [address] Differential cell count method Nom (Bld) Auto Normal [facility] Comment on above: Order Comment: Speci men Type: BLOOD SPECIMEN Ordering Facility: [facility] Address: [facility] [place] [address] Performed By: #### H STNT #### [facility] CLIA [id number] [address] Eosinophils (Bld) [#/Vol] 0.27 10*3/uL Normal <0.46 [facility] Comment on above: Order Comment: Speci men Type: BLOOD SPECIMEN Ordering Facility: [facility] Address: [address] [place] [address] Performed By: #### H STNT #### [facility] CLIA [id number] [address] Eosinophils/100 WBC (Bld) 2.3 % Normal [facility] Comment on above: Order Comment: Speci men Type: BLOOD SPECIMEN Ordering Facility: [facility] Address: [address] [place] [address] Performed By: #### H STNT #### [facility] CLIA [id number] [address] Erythrocyte distribution width (RBC) [Ratio] 15.4 % High 11.5-15.0 [facility] Comment on above: Order Comment: Speci men Type: BLOOD SPECIMEN Ordering Facility: [facility] Address: [address] [place] [address] Performed By: #### H STNT #### [facility] CLIA [id number] [address] Hematocrit (Bld) [Volume fraction] 41.9 % Normal 36.0-46.0 [facility] Comment on above: Order Comment: Speci men Type: BLOOD SPECIMEN Ordering Facility: [facility] Address: [address] [place] [address] Performed By: #### H STNT #### [facility] CLIA [id number] [address] [place] [address] [place] Hemoglobin (Bld) [Mass/Vol] 13.3 g/dL Normal 11.5-15.5 [facility] Comment on above: Order Comment: Speci men Type: BLOOD SPECIMEN Ordering Facility: [facility] Address: [address] [place] [address] Performed By: #### H STNT #### [facility] CLIA [id number] [address] [place] Immature granulocytes (Bld) [#/Vol] 0.04 10*3/uL Normal <0.10 [facility] Comment on above: Order Comment: Speci men Type: BLOOD SPECIMEN Ordering Facility: [facility] Address: [address] [place] [address] Performed By: #### H STNT #### [facility] CLIA [id number] [address] Immature granulocytes/100 WBC (Bld) 0.3 % Normal [facility] Comment on above: Order Comment: Speci men Type: BLOOD SPECIMEN Ordering Facility: [facility] Address: [address] [place] [address] Performed By: #### H STNT #### [facility] CLIA [id number] [address] [place] Lymphocytes (Bld) [#/Vol] 2.61 10*3/uL Normal 1.00-4.00 [facility] Comment on above: Order Comment: Speci men Type: BLOOD SPECIMEN Ordering Facility: [facility] Address: [address] [place] [address] Performed By: #### H STNT #### [facility] CLIA [id number] [address] [place] Lymphocytes/100 WBC (Bld) 22.0 % Normal [facility] Comment on above: Order Comment: Speci men Type: BLOOD SPECIMEN Ordering Facility: [facility] Address: [address] [place] [address] Performed By: #### H STNT #### [facility] CLIA [id number] [address] MCH (RBC) [Entitic mass] 25.2 pg Low 26.0-34.0 [facility] Comment on above: Order Comment: Speci men Type: BLOOD SPECIMEN Ordering Facility: [facility] Address: [address] [place] [address] Performed By: #### H STNT #### [facility] CLIA [id number] [address] MCHC (RBC) [Mass/Vol] 31.7 g/dL Normal 30.5-36.0 [facility] Comment on above: Order Comment: Speci men Type: BLOOD SPECIMEN Ordering Facility: [facility] Address: [address] [place] [address] Performed By: #### H STNT #### [id number] [address] MCV (RBC) [Entitic vol] 79.5 fL Low 80.0-100.0 [facility] Comment on above: Order Comment: Speci men Type: BLOOD SPECIMEN Ordering Facility: [facility] Address: [address] [place] [address] Performed By: #### H STNT #### [id number] [address] Monocytes (Bld) [#/Vol] 0.57 10*3/uL Normal <0.87 [facility] Comment on above: Order Comment: Speci men Type: BLOOD SPECIMEN Ordering Facility: [facility] Address: [address] [place] [address] Performed By: #### H STNT #### [facility] CLIA [id number] [address] Monocytes/100 WBC (Bld) 4.8 % Normal [facility] Comment on above: Order Comment: Speci men Type: BLOOD SPECIMEN Ordering Facility: [facility] Address: [address] [place] [address] Performed By: #### H STNT #### [facility] CLIA [id number] [address] [place] Neutrophils (Bld) [#/Vol] 8.35 10*3/uL High 1.45-7.50 [facility] Comment on above: Order Comment: Speci men Type: BLOOD SPECIMEN Ordering Facility: [facility] Address: [address] [place] [address] Performed By: #### H STNT #### [facility] CLIA [id number] [address] [place] Neutrophils/100 WBC (Bld) 70.3 % Normal [facility] Comment on above: Order Comment: Speci men Type: BLOOD SPECIMEN Ordering Facility: [facility] Address: [address] [place] [address] Performed By: #### H STNT #### [facility] CLIA [id number] [address] [place] Nucleated RBC (Bld) [#/Vol] 10*3/uL Normal <0.01 [facility] Comment on above: Order Comment: Speci men Type: BLOOD SPECIMEN Ordering Facility: [facility] Address: [address] [place] [address] Performed By: #### H STNT #### [facility] CLIA [id number] [address] [place] Nucleated RBC/100 WBC (Bld) [Ratio] 0.0 /100 WBC Normal [facility] Comment on above: Order Comment: Speci men Type: BLOOD SPECIMEN Ordering Facility: [facility] Address: [address] [place] [address] Performed By: #### H STNT #### [facility] CLIA [id number] [address] [place] Platelet mean volume (Bld) [Entitic vol] 11.9 fL Normal 9.0-12.7 [facility] Comment on above: Order Comment: Speci men Type: BLOOD SPECIMEN Ordering Facility: [facility] Address: [address] [place] [address] Performed By: #### H STNT #### [facility] CLIA [id number] [address] Platelets (Bld) [#/Vol] 226 10*3/uL Normal 150-400 [facility] Comment on above: Order Comment: Speci men Type: BLOOD SPECIMEN Ordering Facility: [facility] Address: [address] [place] [address] Performed By: #### H STNT #### [facility] CLIA [id number] [address] RBC (Bld) [#/Vol] 5.27 10*6/uL High 3.90-5.20 [facility] Comment on above: Order Comment: Speci men Type: BLOOD SPECIMEN Ordering Facility: [facility] Address: [address] [place] [address] Performed By: #### H STNT #### [facility] CLIA [id number] [address] WBC (Bld) [#/Vol] 11.87 10*3/uL High 3.70-11.00 [facility] Comment on above: Order Comment: Speci men Type: BLOOD SPECIMEN Ordering Facility: [facility] Address: [address] [place] [address] Performed By: #### H STNT #### [facility] CLIA [id number] [address] ED Triage Noteon 02-19-2025 ED Triage Note HNO ID: [id number] Author: MASHA BRAVO APRN.KEVIN Service: ? Author Type: Nurse Practitioner Type: ED Triage Notes Filed: 02/19/2025 13:51 Note Text: ED TRIAGE PROVIDER NOTE Patient Name: Ambika Brown Service Date: 02/19/25 BRIEF HPI: This is a 34 year old female who presents to the ED with: cp and palpitations. Patient has a hx of vtach and svt. She has an ep study scheduled for Sunday. She states any exertion, she has palpations and sob. BRIEF EXAM: NAD Awake and Alert Non labored breathing No focal neurological deficits INITIAL WORKUP AND DECISION MAKING: Orders Placed This Encounter BASIC METABOLIC PNL CBC + DIFF High Sensitivity Troponin T with Reflex for ED Chest Pain Thyroid Stimulating Hormone EKG SIGNATURE: Masha Bravo APRN.SCHEDULE CHECKER Normal [facility] EKGon 02-19-2025 Electrocardiogram Ventricular Rate : 1 19 BPM Atrial Rate : 119 BPM P-R Interval : 164 ms QRS Duration : 74 ms Q-T Interval : 304 ms QTC Calculation(Bazett) : 427 ms Calculated P [place] : 57 degrees Calculated R [place] : 32 degrees Calculated T [place] : 88 degrees SINUS TACHYCARDIA WITH OCCASIONAL PREMATURE VENTRICULAR COMPLEXES CANNOT RULE OUT ANTERIOR INFARCT , AGE UNDETERMINED ABNORMAL ECG WHEN COMPARED WITH ECG OF 16-Jan-2025 08:47, PREMATURE VENTRICULAR COMPLEXES ARE NOW PRESENT Confirmed by EDELMIRA FLORES MD ([id number]) on 02/20/2025 2:15:49 PM NAME : AMBIKA BROWN PID : [id number] : 1990 Gender : Female Race : ORD : Procedure Date : Feb 19 2025 13:40:46 Edit Date : Feb 20 2025 14:15:51 Diagnosis: SINUS TACHYCARDIA WITH OCCASIONAL PREMATURE VENTRICULAR COMPLEXES CANNOT RULE OUT ANTERIOR INFARCT , AGE UNDETERMINED ABNORMAL ECG WHEN COMPARED WITH ECG OF 16-Jan-2025 08:47, PREMATURE VENTRICULAR COMPLEXES ARE NOW PRESENT Confirmed by EDELMIRA FLORES MD ([id number]) on 02/20/2025 2:15:49 PM Test Reason : Location : 4 : [facility] Overread By : EDELMIRA FLORES MD Edited By : EDELMIRA FLORES MD Referred By : , Acquired by : AUSTIN GONZALES Normal [facility] HIGH SENSITIVITY TROPONIN T (INITIAL)on 02-19-2025 Troponin T.cardiac High sensitivity method [Mass/Vol] <6 Normal <12 [facility] Comment on above: Order Comment: Speci men Type: BLOOD SPECIMEN Ordering Facility: [facility] Address: [address] [place] [address] Performed By: #### H STNT #### [facility] CLIA [id number] [address] [place] [address] [place] TSH SerPl-aCncon 02-19-2025 TSH Qn 2.150 m[IU]/L Normal 0.270-4.200 [facility] Comment on above: Order Comment: Speci men Type: BLOOD SPECIMEN Ordering Facility: [facility] Address: [address], [place] [address] Result Comment: If t he patient is , TSH reference range varies by gestational period: First Trimester (weeks 9-12): 0.180-2.990 mIU/L Second Trimester: 0.110-3.980 mIU/L Third Trimester: 0.480-4.710 mIU/L Jesus Little et al. A Practical Approach for the Verifications and Determination of Site- and Trimester-Specific Reference Intervals for Thyroid Function tests in . Thyroid, 2019:29:3:412-420. Javier Campbell, et al. 2017 Guidelines of the [place] Thyroid Association for the Diagnosis and Management of Thyroid Disease during and the . Thyroid, 2017:27:3:315-389. Performed By: #### 2 4362-6 #### [facility] CLIA [id number] [address] [facility] CNOVon 02-09-2025 CNOV Office Visit ([facility] ) -------- AMBIKA BROWN ([id number]) 1990 F CHT Date Time Provider Department 02/09/25 10:00 AM LISE NEVAREZ [facility] During your visit today, we recorded the following information about you: Pulse Blood pressure Weight 97/minute 129/91 154 kg Lise Nevarez, FORMULA CHECKER.SCHEDULE CHECKER 02/09/2025 10:35 AM Signed [facility] Follow-up Visit Current Preventive: Botox Change needed for current preventive? No Current Abortive: Naproxen, Phenergan, gabapentin Change needed for current abortive? No Frequency of Abortive Use (per month): 10 Duration of headaches with treatment: 1 days (24 hours) Miscellaneous Patient Concerns: 3 months overdue for Botox - working with Cardiology - Arrhythmia(NSVT/SVT), syncope/near syncope Completed IMATCH 2018 She is now approved for 200 units Impression: Intractable chronic migraine without aura and with status migrainosus (primary encounter diagnosis) Plan: Follow-Up Onabotulinum Toxin A (BotoxTM) for Migraine Indication: Chronic Intractable Migraine Treatment #: 17 Referral Expiration: 10/07/2025 Prior to the initiation of the FIRST treatment with Onabotulinum Toxin A, the patient reported the following average headache frequency over the past 3 MONTHS: Number of moderate-severe migraine days/month: 20 Number of mild migraine days/month: 10 Number of headache free days/month: 0 (0 headache-free hours) Migraine severity: 04/19 After treatment with Onabotulinum Toxin A: Number of moderate-severe migraine days/month: 10 Number of mild migraine days/month: 5 Number of headache free days/month: 15 (360 headache-free hours) Migraine severity: 03/19 Patient reduction in overall migraine days: Yes Patient reduction in moderate-severe migraine days: Yes Patient reduction of headache hours by 100 hours or more: Yes (reduction of 360 hours) Individual has obtained clinical benefit deemed significant by individual or prescriber (Y/N): Yes Patient's quality of life and ability to perform ADLs has improved (Y/N): Yes Side effects: none Wearing off: Yes - 10 weeks after treatment The patient has been assessed for disorders which could contribute to breathing or swallowing difficulty, and there is no contraindication with PREEMPT Botox. There is no documented allergic reaction/hypersensitivit y to any botulinum toxin and there is no active infection at proposed injection site. HEADACHE SCORES: 11/23/2023 08/01/2024 08/19/2024 Headache Questions ER visits since last office visit: 1 0 Hospital stays since last office visit 0 0 Limited ADLs in the last month: 3 10 Days missed from work or school in the last month: 0 0 Days headache pain free in the last month: 8 5 Days per month with ALL of the following symptoms - decreased productivity, light sensitivity and nausea: 10 18 Initial improvement of headache after botox injection at last visit: Not applicable, I did not have a botox injection at my last visit Much improved Very much improved PRN medication usage in the last month: 10 9 Patient impression of improvement since last visit: Very much worse Minimally improved Very much worse Proxy-reported 05/29/2023 11/23/2023 08/01/2024 HIT-6 HIT-6 67 (Severe impact) 64 (Severe impact) 65 (Severe impact) Proxy-reported 05/29/2023 11/23/2023 08/01/2024 MARCIA - 2/7 SCORES MARCIA-2 Score 0 4 1 MARCIA-7 Score 10 05/29/2023 11/23/2023 08/01/2024 Migraine Specific QOL - Higher scores indicate better HRQL Role Function-Restrictive Transformed Score (range: 0-100) 40 48.57 34.29 Role Function-Preventive Transformed Score (range: 0-100) 40 80 50 Emotional Function Transformed Score (range: 0-100) 0 53.33 33.33 Proxy-reported 05/29/2023 11/23/2023 08/01/2024 PHQ-9 Score 13 3 4 LMP 07/29/2024 (Approximate) BP 129/91 (BP Position: Sitting) Pulse 97 Wt (!) 154 kg (339 lb 8.1 oz) LMP 07/29/2024 (Approximate) SpO2 97% BMI 53.17 kg/m? Patient name: Ambika Brown : 1990 ALLERGIES Allergen Reactions Prochlorperazine Mental Status Change Compazine akathesia Diphenhydramine Intolerance Heart palpitations, anxiety AUTOAPPROVAL RECEIVED Benefit Type: Medical Servicing Location Tax ID: [id number] Payor Name: O Authorization received via portal: [employer] [facility] Botox J0585 Approval Date Range: 10/08/2024 to 10/07/2025 Approval #: [id number] Dose AND Frequency: 200 units every 12 weeks for 1 year # Visits/Treatments (if applicable): 5 Approval letter scanned into chart UNIVERSAL PROTOCOL / SAFETY CHECKLIST Procedure: Onabotulinum toxin A for migraine Informed Consent Consent Obtained: Written [place] Protocol A moment to CARE was completed SIGN IN Personnel directly involved with the procedure wore the appropriate PPE Special Equipment: N/A Patient/Surrogate Stated/Verif (more content not included)... Normal [facility] STEPHANIEAMBIKA ([id number]) 1990 F CHT Date Time Provider Department 02/09/25 AG CARD AGCARDPOB During your visit today, we recorded the following information about you: Washington Rosales 02/09/2025 3:37 PM Signed Patient is scheduled for an SVT study/Ablation on 02/[address] Robin (per ABBEY) The hospital will call the day before between 2-5pm with your arrival time. You should not eat or drink after midnight the day before the procedure. You will need a chassis driver when released from the hospital and you will stay overnight for observation. You should continue to take medications as prescribed the morning of the procedure with just a sip of water but Hold metoprolol (and flecainide if she starts it) 1 week prior *patient stated she has not started flecainide Spoke with Ambika Brown on February 09, 2025. Informed of instructions as stated above. Patient verbalized understanding. Aurora Erazo RN 02/09/2025 3:42 PM Signed Pt's name has been added to [facility] procedure board. Aurora Goodson RN Allergies As of Date: 02/09/2025 Noted Allergy Reaction PROCHLORPERAZINE 12/02/2018 1 - Mental Status Change Comments: Compazine akathesia DIPHENHYDRAMINE 10/05/2022 5 - Intolerance Comments: Heart palpitations, anxiety Date Reviewed: 02/09/2025 Reviewed by: Lise Nevarez APRN.[facility] - Fully Assessed Reason for Visit: Preparations For Procedures [899] Prescriptions as of 02/09/2025 - promethazine (PHENERGAN) 25 mg tablet 1/2 to 1 po q8h prn headache or nausea - gabapentin (NEURONTIN) 100 mg capsule Take 1 po at onset of migraine if needed repeat in 8 hours - metoprolol tartrate, short acting, (LOPRESSOR) 25 mg tablet Take 1 tablet by mouth two times a day. - lisinopril (ZESTRIL) 20 mg tablet Take 20 mg by mouth two times a day. - ascorbic acid, vitamin C, (VITAMIN C) 500 mg tablet Take 500 mg by mouth once daily. - ondansetron (ZOFRAN) 8 mg tablet FOR NAUSEA. Take on at onset of nausea or migraine,may repeat dose in 8 hours if needed. - naproxen (NAPROSYN) 500 mg tablet Take 1 tablet by mouth two times a day as needed for pain. - levothyroxine (SYNTHROID) 50 mcg tablet Take 50 mcg by mouth every morning. Take On an Empty Stomach - aspirin, enteric coated (ASPIRIN, ENTERIC COATED) 81 mg EC tablet Take 81 mg by mouth daily at bedtime. - cholecalciferol, vitamin D3, (VITAMIN D3 ORAL) Take by mouth once daily. - PNV/FERROUS SULFATE/FOLIC ACID ( MULTIVIT WITH IRON ORAL) Take by mouth daily at bedtime. - albuterol HFA (PROVENTIL HFA, VENTOLIN HFA) 90 mcg/actuation inhaler Inhale 2 Puffs as instructed every 4 hours as needed for Wheezing/Shortness of Breath. 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/2017 RLS (restless legs syndrome) [G25.81] 12/17/2017 Neck pain [M54.2] 12/17/2017 Syncope [R55] Palpitations [R00.2] Nonsustained ventricular tachycardia (HCC) [I47* Obesity, Class III, BMI >= 40 [E66.813] 07/15/2021 Paroxysmal supraventricular tachycardia (HCC) [*12/06/2021 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] 12/15/2024 Hypothyroid [E03.9] 12/15/2024 Implantable loop recorder present [Z95.818] 09/28/2022 Metabolic syndrome [E88.810] 08/02/2022 Morbid obesity (HCC) [E66.01] 12/15/2024 Obstructive sleep apnea syndrome [G47.33] 09/21/2022 V-tach (HCC) [I47.20] 01/13/2025 Encounter Status:Closed by WASHINGTON ROSALES on 02/09/25 [facility] Mari 01-27-2025 CNPN Telephone ([facility]) -------- AMBIKA BROWN ([id number]) 1990 F T Date Time Provider Department 01/27/25 MARIE CAMERON During your visit today, we recorded the following information about you: Brenda Camarillo LPN 01/27/2025 2:23 PM Addendum [facility] report she is still experiencing increased episodes of palpitations and SVT, and has had a few episodes of syncope since hospital release on 01/13/2025. Patient thinks episodes seems to be provoked by activity- she is off of work until the end of February- even with minimal exertion these episodes occur on a daily basis- syncope happened 4 times. Patient is currently wearing monitor- last day of wearing is . Patient reports compliance with Metoprolol tartrate 25 mg twice daily. Brenda Camarillo LPN Allergies As of Date: 01/27/2025 Noted Allergy Reaction PROCHLORPERAZINE 12/02/2018 1 - Mental Status Change Comments: Compazine akathesia DIPHENHYDRAMINE 10/05/2022 5 - Intolerance Comments: Heart palpitations, anxiety Date Reviewed: 01/15/2025 Reviewed by: Trinh Desai, MARGARITA - Fully Assessed Reason for Visit: Patient Update [1234] Prescriptions as of 01/27/2025 - metoprolol tartrate, short acting, (LOPRESSOR) 25 mg tablet Take 1 tablet by mouth two times a day. - lisinopril (ZESTRIL) 20 mg tablet Take 20 mg by mouth two times a day. - ascorbic acid, vitamin C, (VITAMIN C) 500 mg tablet Take 500 mg by mouth once daily. - methocarbamol (ROBAXIN) 500 mg tablet Take 1 tablet (500 mg) by mouth four times a day until headache free for 24 hours or take for full 5 days. - gabapentin (NEURONTIN) 100 mg capsule Take 100 mg by mouth as needed (migraine). - ondansetron (ZOFRAN) 8 mg tablet FOR NAUSEA. Take on at onset of nausea or migraine,may repeat dose in 8 hours if needed. - naproxen (NAPROSYN) 500 mg tablet Take 1 tablet by mouth two times a day as needed for pain. - levothyroxine (SYNTHROID) 50 mcg tablet Take 50 mcg by mouth every morning. Take On an Empty Stomach - aspirin, enteric coated (ASPIRIN, ENTERIC COATED) 81 mg EC tablet Take 81 mg by mouth daily at bedtime. - promethazine (PHENERGAN) 25 mg tablet 1/2 to 1 po q8h prn headache or nausea - cholecalciferol, vitamin D3, (VITAMIN D3 ORAL) Take by mouth once daily. - PNV/FERROUS SULFATE/FOLIC ACID ( MULTIVIT WITH IRON ORAL) Take by mouth daily at bedtime. - albuterol HFA (PROVENTIL HFA, VENTOLIN HFA) 90 mcg/actuation inhaler Inhale 2 Puffs as instructed every 4 hours as needed for Wheezing/Shortness of Breath. 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 *10/25/2017 POTS (postural orthostatic tachycardia syndrome*10/25/2017 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/2017 RLS (restless legs syndrome) [G25.81] 12/17/2017 Neck pain [M54.2] 12/17/2017 Syncope [R55] Palpitations [R00.2] Nonsustained ventricular tachycardia (HCC) [I47* Obesity, Class III, BMI >= 40 [E66.813] 07/15/2021 Paroxysmal supraventricular tachycardia (HCC) [*12/06/2021 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] 12/15/2024 Hypothyroid [E03.9] 12/15/2024 Implantable loop recorder present [Z95.818] 09/28/2022 Metabolic syndrome [E88.810] 08/02/2022 Morbid obesity (HCC) [E66.01] 12/15/2024 Obstructive sleep apnea syndrome [G47.33] 09/21/2022 V-tach (HCC) [I47.20] 01/13/2025 Encounter Status:Closed by BRENDA CAMARILLO on 01/27/25 Normal [facility] Basic metabolic 2000 panelon 01-16-2025 Anion gap [Moles/Vol] 10 mmol/L Normal 8-15 [facility] Comment on above: Order Comment: Speci men Type: BLOOD SPECIMENOrdering Facility: [facility] Address: [address] [place] [address] Performed By: #### 2 4321-2 ####[facility] LABORATORYCLIA [id number] [address] STATES OF [facility] Calcium [Mass/Vol] 8.9 mg/dL Normal 8.5-10.2 [facility] Comment on above: Order Comment: Speci men Type: BLOOD SPECIMENOrdering Facility: [facility] Address: [address] [place] [address] Performed By: #### 2 4321-2 ####[facility] LABORATORYCLIA [id number] [place] [address] [place] Chloride [Moles/Vol] 103 mmol/L Normal 98-107 [facility] Comment on above: Order Comment: Speci men Type: BLOOD SPECIMENOrdering Facility: [facility] Address: [address] [place] [address] Performed By: #### 2 4321-2 ####[facility] LABORATORYCLIA [id number] [address] CO2 [Moles/Vol] 23 mmol/L Normal 22-30 [facility] Comment on above: Order Comment: Speci men Type: BLOOD SPECIMENOrdering Facility: [facility] Address: [address] [place] [address] Performed By: #### 2 4321-2 ####[facility] LABORATORYCLIA [id number] [address] OF [facility] Creatinine [Mass/Vol] 0.66 mg/dL Normal 0.58-0.96 [facility] Comment on above: Order Comment: Speci men Type: BLOOD SPECIMENOrdering Facility: [facility] Address: [address] [place] [address] Performed By: #### 2 4321-2 ####[facility] LABORATORYCLIA [id number] [address] Creatinine and Glomerular filtration rate.predicted panel (S/P/Bld) 119 mL/min/1.73m??? Normal >=60 [facility] Comment on above: Order Comment: Speci men Type: BLOOD SPECIMENOrdering Facility: [facility] Address: [address] [place] [address] Result Comment: Duy mated Glomerular Filtration Rate (eGFR) is calculated using the 2020 CKD-EPI creatinine equation. This equation utilizes serum creatinine, sex, and age as parameters. The creatinine assay has traceable calibration to isotope dilution-mass spectrometry. Refer to KDIGO guidelines for clinical interpretation. In patients with unstable renal function, e.g. those with acute kidney injury, the eGFR may not accurately reflect actual GFR. Performed By: #### 2 4321-2 ####[facility] LABORATORYCLIA [id number] [address] OF [facility] Glucose [Mass/Vol] 109 mg/dL High 74-99 [facility] Comment on above: Order Comment: Stevei carolyne Type: BLOOD SPECIMENOrdering Facility: [facility] Address: [address] [place] [address] Result Comment: The [place] Diabetes Association (ADA) provides guidance for cutoff values for fasting glucose and random glucose. The ADA defines fasting as no caloric intake for at least 8 hours. Fasting plasma glucose results between 100 to 125 mg/dL indicate increased risk for diabetes (prediabetes). Fasting plasma glucose results greater than or equal to 126 mg/dL meet the criteria for diagnosis of diabetes. In the absence of unequivocal hyperglycemia, results should be confirmed by repeat testing. In a patient with classic symptoms of hyperglycemia or hyperglycemic crisis, random plasma glucose results greater than or equal to 200 mg/dL meet the criteria for diagnosis of diabetes. Reference: Standards of Medical Care in Diabetes 2016, [place] [employer] Association. Diabetes Care. 2016.39(Suppl 1). Performed By: #### 2 4321-2 ####[facility] LABORATORYCLIA [id number] [address] [place] [facility] Potassium [Moles/Vol] 4.4 mmol/L Normal 3.7-5.1 [facility] Comment on above: Order Comment: Otis barfield Type: BLOOD SPECIMENOrdering Facility: [facility] Address: [address] [place] [address] Performed By: #### 2 1-2 ####[facility] [id number] [address] STATES [place] [facility] Sodium [Moles/Vol] 136 mmol/L Normal 136-144 [facility] Comment on above: Order Comment: Otis barfield Type: BLOOD SPECIMENOrdering Facility: [facility] Address: [address] [place] [address] Performed By: #### 2 4321-2 ####[facility] LABORATORYCLIA [id number] [address] STATES [facility] Urea nitrogen [Mass/Vol] 12 mg/dL Normal 7-21 [facility] Comment on above: Order Comment: Otis barfield Type: BLOOD SPECIMENOrdering Facility: [facility] Address: [address] [place] [address] Performed By: #### 2 4321-2 ####[facility] LABORATORYCLIA [id number] [address] [place] CBC panel Auto (Bld)on 01-16 Erythrocyte distribution width (RBC) [Ratio] 15.4 % High 11.5-15.0 [facility] Comment on above: Order Comment: Speci men Type: BLOOD SPECIMEN [facility] Address: [address] [place] [address] Performed By: #### 1 9123-9, 48324-6 #### [facility] CLIA [id number] [address] [place] Hematocrit (Bld) [Volume fraction] 42.6 % Normal 36.0-46.0 [facility] Comment on above: Order Comment: Speci men Type: BLOOD SPECIMEN [facility] Address: [address] [place] [address] Performed By: #### 1 91239, 49875-3 #### [facility] CLIA [id number] [address] [place] [address] [place] Hemoglobin (Bld) [Mass/Vol] 13.3 g/dL Normal 11.5-15.5 [facility] Comment on above: Order Comment: Speci men Type: BLOOD SPECIMEN [facility] Address: [address] [place] [address] Performed By: #### 1 91239, #### [facility] CLIA [id number] [address] [place] [address] [place] MCH (RBC) [Entitic mass] 25.4 pg Low 26.0-34.0 [facility] Comment on above: Order Comment: Speci men Type: BLOOD SPECIMEN [facility] Address: [address] [place] [address] Performed By: #### 1 9123-9, 68055-8 #### [facility] CLIA [id number] [address] [place] MCHC (RBC) [Mass/Vol] 31.2 g/dL Normal 30.5-36.0 [facility] Comment on above: Order Comment: Speci men Type: BLOOD SPECIMEN [facility] Address: [address] [place] [address] Performed By: #### 1 9123-9, 67006-7 #### [facility] CLIA [id number] [address] MCV (RBC) [Entitic vol] 81.5 fL Normal 80.0-100.0 [facility] Comment on above: Order Comment: Speci men Type: BLOOD SPECIMEN [facility] Address: [address] [place] [address] Performed By: #### 1 9123-05, 13228-9 #### [facility] CLIA [id number] [address] Nucleated RBC (Bld) [#/Vol] 10*3/uL Normal <0.01 [facility] Comment on above: Order Comment: Speci men Type: BLOOD SPECIMEN [facility] Address: [address] [place] [address] Performed By: #### 1 9123-05, 89653-7 #### [facility] CLIA [id number] [address] Platelet mean volume (Bld) [Entitic vol] 11.8 fL Normal 9.0-12.7 [facility] Comment on above: Order Comment: Speci men Type: BLOOD SPECIMEN [facility] Address: [address] [place] [address] Performed By: #### 1 23, 95396-9 #### [facility] CLIA [id number] [address] Platelets (Bld) [#/Vol] 210 10*3/uL Normal 150-400 [facility] Comment on above: Order Comment: Speci men Type: BLOOD SPECIMEN [facility] Address: [address] [place] [address] Performed By: #### 1 239, 43148-5 #### [facility] CLIA [id number] [address] [place] RBC (Bld) [#/Vol] 5.23 10*6/uL High 3.90-5.20 [facility] Comment on above: Order Comment: Steveviri barfield Type: BLOOD SPECIMEN [facility] Address: [address] [place], [place] [address] Performed By: #### 1 9123-9, 74154-9 #### [facility] CLIA [id number] [address] OF [facility] WBC (Bld) [#/Vol] 9.02 10*3/uL Normal 3.70-11.00 [facility] Comment on above: Order Comment: Otis barfield Type: BLOOD SPECIMEN [facility] Address: [address] [place], [place] [address] Performed By: #### 1 9123-9, 03017-3 #### [facility] CLIA [id number] [address] CNDSon 01-16-2025 [facility]DS HNO ID: [id number] Author: CELSO ROCHA DO Service: Hospital Medicine Author Type: Physician Type: Discharge Summary Filed: 01/16/2025 17:40 Note Text: DISCHARGE SUMMARY PATIENT NAME: Ambika Brown Code Status: Full Code Highest Readmission Risk Score: 12 The 30 day readmissions risk score is derived from an internally validated risk model which evaluates patient level characteristics, utilization history, medication orders and lab results up until the day of discharge. Patients with a score of 39 or above are considered highest risk for readmission. Specific patient level drivers will be listed at the bottom of the summary. Admission Information Admission Information ADMIT DATE: 01/13/2025 DISCHARGE DATE: 01/16/2025 MY DOCTORS AND MEDICAL TEAM: My Main Hospital Doctor: Celso Rocha DO Primary Care Provider: Mega Weeks MD My Medical Team Members: Treatment Team: Attending Provider: Celso Rocha DO Primary Service: MERRICK GARSIA MY CONDITION AT DISCHARGE: Stable REASON I WAS IN THE HOSPITAL: Arrhythmia(NSVT/SVT), syncope/near syncope SUMMARY OF WHAT HAPPENED WHILE I WAS IN THE HOSPITAL: Patient is a pleasant 34-year-old female with history of SVT and hypertension who presented with palpitations. She was found to have V. tach given amiodarone and [facility] transferred here for subsequent EP evaluation. Patient reported episodes of syncopal events with exertion. Patient had cardiac MRI as well as stress testing done here which did not show any acute cause of her symptoms. She was recommended to undergo Holter monitor at home which she already had and follow-up with EP. As patient's blood pressures are on the lower side amlodipine will be held she will resume her lisinopril at discharge and monitor blood pressures closely at home and with her PCP. OTHER PROBLEMS/DIAGNOSIS: Principal Problem: V-tach (HCC) Active Problems: Palpitations Obesity, Class III, BMI >= 40 Hypothyroid Resolved Problems: * No resolved hospital problems. * OPERATIONS PERFORMED WHILE IN THE HOSPITAL: None IMPORTANT TEST/PROCEDURES: No procedures performed TEST RESULTS NOT AVAILABLE AT THIS TIME: No pending results Discharge Disposition Discharge Disposition: Home With Self Care Activity When You Leave the Hospital Resume pre-hospital activity Diet Instructions Resume your pre-hospital diet Call Your Doctor If You have a severe headache You have lightheadedness, fainting, or confusion You have persistent nausea/vomiting over 24 hours You have persistent or heavy bleeding You have swollen glands or cold and clammy skin Your temperature is greater than 101F Follow Up Appointments Follow-up Appointment Follow-up hospitalization When: In: Comment - as scheduled Patient/Parents to call for appointment?: Scheduled Nitin Rock MD [phone] [place] [address] [facility] [phone] PCP Requested Referral Follow-up Appointment Follow-up hospitalization, blood pressure monitoring When: In 1 week Patient/Parents to call for appointment?: Yes Mega Weeks [phone] [facility] [address] [facility] [address] PCP Requested Referral Additional Provider to Provider Information: Treatment Team: Attending Provider: Celso Rocha DO Primary Service: MERRICK GARSIA FINAL DIAGNOSIS: Active Hospital Problems Diagnosis POA V-tach (HCC) Yes Hypothyroid Yes Obesity, Class III, BMI >= 40 Yes Palpitations Yes Resolved Hospital Problems No resolved problems to display. FOLLOW-UP APPOINTMENTS ALREADY SCHEDULED WITH A [facility] PROVIDER: No future appointments. ALLERGIES Allergen Reactions Prochlorperazine Mental Status Change Compazine akathesia Diphenhydramine Intolerance Heart palpitations, anxiety DISCHARGE MEDICATION: Medication List CONTINUE taking these medications albuterol HFA 90 mcg/actuation inhaler Commonly known as: PROVENTIL HFA, VENTOLIN HFA ascorbic acid (vitamin C) 500 mg tablet Commonly known as: VITAMIN C aspirin, enteric coated 81 mg EC tablet Commonly known as: ASPIRIN, ENTERIC COATED gabapentin 100 mg capsule Commonly known as: NEURONTIN levothyroxine 50 mcg tablet Commonly known as: SYNTHROID lisinopril 20 mg tablet Commonly known as: ZESTRIL methocarbamol 500 mg tablet Commonly known as: ROBAXIN Take 1 tablet (500 mg) by mouth four times a day until headache free for 24 hours or take for full 5 days. metoprolol tartrate (short acting) 25 mg tablet Commonly known as: LOPRESSOR naproxen 500 mg tablet Commonly known as: NAPROSYN Take 1 tablet by mouth two times a day as needed for pain. ondansetron 8 mg tablet Commonly known as: ZOFRAN FOR NAUSEA. Take on at onset of nausea or migraine,may repeat dose in 8 hours if needed. MULTIVIT WITH IRON ORAL promethazine 25 mg t (more content not included)... Normal [facility] CARDIAC PERF STRESS/EXERC ISEon 01-16-2025 [place] CARDIAC PERF STRESS/EXERCISE * * *Final Report* * * DATE OF EXAM: Jan 16 2025 10:03AM [facility] 0004 - [place] CARDIAC PERF STRESS/EXERCISE / PROCEDURE REASON: Chest pain/anginal equiv, intermediate CAD risk, treadmill candidate * * * * Physician Interpretation * * * * Stress Production Grader Report: [facility] Date of service: 01/16/2025 7:23:00 AM Supervising physician: Omkar Simmons MD PATIENT: Name: MRS. AMBIKA BROWN Age: 34 years Gender: F The supervising physician was in the department and immediately available. * * * Final * * * -- PATIENT: Name: MRS. AMBIKA BROWN Age: 34 years Gender: F CONCLUSIONS: 1. SPECT Perfusion Study: Normal. 2. There is no scintigraphic evidence for inducible ischemia. 3. No evidence of scarred myocardium. 4. Left ventricle is normal in size. The left ventricle systolic function is normal. 5. Right ventricle is normal in size. The right ventricle systolic function is normal. 6. This is a low risk scan. 7. Occasional ventricular ectopy npoted during stress, but 3-4 beat runs of nonsustained venrttricular tachycardia in recovery Gated Stress IR LVEF % 59 Prior Study Comparison Prior nuclear cardiology exam was performed on [..]. Nuclear Med Report:1-Day Gated SPECT Myocardial Perfusion with Exercise Stress: Myocardial perfusion imaging was performed at rest 30 to 60 minutes following the IV injection of the radiotracer. One minute prior to peak exercise, the patient was injected IV with the radiotracer. Gated post stress tomographic imaging was performed 10 to 20 minutes later. See administered radiotracer and doses below. [facility] Date of service: 01/16/2025 7:23:00 AM Ordering Physician: KARIN MARTINO. Requesting Physician: Indication: Arrhythmia Interpreting physician: Omkar Simmons MD Previous Cardiovascular Interventions: loop recorder (08/31) Height: 170.00 cm BSA: 2.69 m? Weight: 153.00 kg BMI: 52.9 kg/m? Exam Type: Rest Stress Radiopharm: Tc-99m Tetrofosmin Tc-99m Tetrofosmin Dosage(mCi): 17.6 53.4 Stress Agent: Treadmill Resting Blood Press: 148/ mmHg Image Quality The overall study imaging quality was deemed to be good. FINDINGS: Left Ventricle Wall Motion: Stress IR - All segments are normal. Rest IR - Gated Stress IR - Reversibility - Stress IR Stress IR Gated Stress IR LVEF: 59 % ED Volume: 128 ml ES Volume: 52 ml TID: 0.65 Perfusion Findings Stress IR - Summed Score=0 All segments demonstrate normal perfusion. Rest IR - Summed Score=0 All segments demonstrate normal perfusion. Stress IR Rest IR Summed Score=0 Summed Score=0 LEFT VENTRICLE The left ventricle is normal in size. Left ventricular systolic function is normal. Right Ventricle The right ventricle is normal in size. Right ventricle systolic function is normal. Stress Test Findings: There is no scintigraphic evidence for inducible ischemia. There is no evidence of scarring. * * * Final * * * -- Stress ECG Report: [facility] Date of service: 01/16/2025 7:23:00 AM Ordering physician: KARIN MARTINO publication specialist: Glendy Storm RN Oil Spraying Machine Operator: Sofie Denney RN Interpreting physician: Omkar Simmons MD Patient name: MRS. AMBIKA BROWN Age: 34 years Gender: F Height: 170.00 cm BSA: 2.69 m? Weight: 153.00 kg BMI: 52.9 kg/m? Indication: Assess chronotropic response due to specified cardiac arrhythmia Stress ECG Conclusion: Conclusion: Abnormal due to nonsustained VT Stress ECG Summary: The patient exercised according to the Sukhdev protocol. The estimated end-exercise MET level achieved using the FRIEND equation * * * was 5.4, which is in the bottom 10th percentile for age and sex. The estimated end-exercise MET level achieved using the previous ACSM equation was 6.2. The test was terminated due to general fatigue, shortness of breath and dizziness and the total exercise time was 5 minutes and 0 seconds. Other symptoms during the test included dizziness, chest pain and SOB. The maximum heart rate was 166 bpm, which is 89% of the predicted heart rate for age. This is an adequate heart rate response. Previous cardiovascular interventions: loop recorder (08/31) Medications: Last Used low dose ASA, levothyroxine, metoprolol, albuterol, C, D3, lisinopriol, norvasc, Resting ECG: Normal Sinus Rhythm, Nonspecific St-T Wave Changes, Aberrant PAC's, Rare PACs (<3/Min) and Rare PVCs (<3/Min) Symptoms at rest: No symptoms Exercise Protocol: Sukhdev (more content not included)... Normal [facility] ALLIED HEALTHon 01-15-2025 ALLIED HEALTH HNO ID: [id number] Author: TIMOTHY MANNING MRI Tech Service: ? Author Type: Technologist Type: Allied Health Filed: 01/15/2025 18:49 Note Text: Radiology Service Progress Note DATE OF SERVICE: January 15, 2025 TIME: 6:49 PM PATIENT IDENTITY VERIFICATION COMPLETED USING TWO (2) STANDARD IDENTIFIERS: Name and Date of confirmed by patient verbally and Name and Date of confirmed by identification band. FALL SCREENING: Has the patient had 2 falls in the last year or 1 fall with injury or currently using an Ambulatory Assistive Device (Walker, Cane, Wheelchair, Crutches, etc.)? Inpatient: Screened on floor PATIENT GENDER DATA: Assigned female at . status: : No status: NO. PATIENT RELEVANT IMPLANT DATA REVIEWED: Yes PATIENT PRESENTS WITH AN IMPLANTABLE OR ATTACHED SENIOR NETWORK ADMINISTRATOR: No ALLERGIES: Reviewed and unchanged CONTRAST ALLERGY: NO. EXAM: MRI - CONTRAST TYPE: GROUP II PERIPHERAL IV DATA: Inpatient - refer to LDA documentation RADIOLOGY DEPARTMENT: MR; Exam(s) Completed: Cardiac: Cardiac. Lavender Administered: No SIGNATURE: AAMIR Montgomery PATIENT NAME: Ambika Brown DATE: January 15, 2025 TIME: 6:49 PM Normal [facility] Basic metabolic 2000 panelon 01-15-2025 Anion gap [Moles/Vol] 11 mmol/L Normal 8-15 [facility] Comment on above: Order Comment: Otis barfield Type: BLOOD SPECIMEN Ordering Facility: [facility] Address: [address] [place] [address] Performed By: #### 1 6012-3, 16190-3 #### [facility] CLIA [id number] [address] [place] [address] [place] Calcium [Mass/Vol] 8.5 mg/dL Normal 8.5-10.2 [facility] Comment on above: Order Comment: Otis barfield Type: BLOOD SPECIMEN Ordering Facility: [facility] Address: [address] [place] [address] Performed By: #### 1 2985-6, 98001-6 #### [facility] CLIA [id number] [address] [place] Chloride [Moles/Vol] 102 mmol/L Normal 98-107 [facility] Comment on above: Order Comment: Speci men Type: BLOOD SPECIMEN Ordering Facility: [facility] Address: [address] [place] [address] Performed By: #### 1 9123-9, 92260-8 #### [facility] CLIA [id number] [address] [place] CO2 [Moles/Vol] 22 mmol/L Normal 22-30 [facility] Comment on above: Order Comment: Speci men Type: BLOOD SPECIMEN Ordering Facility: [facility] Address: [address] [place] [address] Performed By: #### 1 9123-9, 55329-0 #### [facility] CLIA [id number] [address] OF [facility] Creatinine [Mass/Vol] 0.64 mg/dL Normal 0.58-0.96 [facility] Comment on above: Order Comment: Speci men Type: BLOOD SPECIMEN Ordering Facility: [facility] Address: [address] [place] [address] Performed By: #### 1 9123-9, 37880-2 #### [facility] CLIA [id number] [address] Creatinine and Glomerular filtration rate.predicted panel (S/P/Bld) 120 mL/min/1.73m??? Normal >=60 [facility] Comment on above: Order Comment: Speci men Type: BLOOD SPECIMEN Ordering Facility: [facility] Address: [address] [place] [address] Result Comment: Duy mated Glomerular Filtration Rate (eGFR) is calculated using the 2020 CKD-EPI creatinine equation. This equation utilizes serum creatinine, sex, and age as parameters. The creatinine assay has traceable calibration to isotope dilution-mass spectrometry. Refer to KDIGO guidelines for clinical interpretation. In patients with unstable renal function, e.g. those with acute kidney injury, the eGFR may not accurately reflect actual GFR. Performed By: #### 1 9123-9, 45175-1 #### [facility] CLIA [id number] [address] [place] [address] [place] Glucose [Mass/Vol] 110 mg/dL High 74-99 [facility] Comment on above: Order Comment: Otis barfield Type: BLOOD SPECIMEN Ordering Facility: [facility] Address: [address] [place] [address] Result Comment: The [place] Diabetes Association (ADA) provides guidance for cutoff values for fasting glucose and random glucose. The ADA defines fasting as no caloric intake for at least 8 hours. Fasting plasma glucose results between 100 to 125 mg/dL indicate increased risk for diabetes (prediabetes). Fasting plasma glucose results greater than or equal to 126 mg/dL meet the criteria for diagnosis of diabetes. In the absence of unequivocal hyperglycemia, results should be confirmed by repeat testing. In a patient with classic symptoms of hyperglycemia or hyperglycemic crisis, random plasma glucose results greater than or equal to 200 mg/dL meet the criteria for diagnosis of diabetes. Reference: Standards of Medical Care in Diabetes 2016, [place] [employer]. Diabetes Care. 2016.39(Suppl 1). Performed By: #### 1 91239, 26586-6 #### [facility] CLIA [id number] [address] [place] [address] [place] Potassium [Moles/Vol] 4.1 mmol/L Normal 3.7-5.1 [facility] Comment on above: Order Comment: Otis barfield Type: BLOOD SPECIMEN Ordering Facility: [facility] Address: [address] [place] [address] Performed By: #### 1 91239, 81988-3 #### [facility] CLIA [id number] [address] [place] [address] [place] Sodium [Moles/Vol] 135 mmol/L Low 136-144 [facility] Comment on above: Order Comment: Otis barfield Type: BLOOD SPECIMEN Ordering Facility: [facility] Address: [address] [place] [address] Performed By: #### 1 91239, 65264-7 #### [facility] CLIA [id number] [address] STATES OF [facility] Urea nitrogen [Mass/Vol] 13 mg/dL Normal 7-21 [facility] Comment on above: Order Comment: Speci men Type: BLOOD SPECIMEN Ordering Facility: [facility] Address: [address] [place] [address] Performed By: #### 1 9123-9, 98891-4 #### [facility] CLIA [id number] [address] OF [facility] CBC panel Auto (Bld)on 01-15 Erythrocyte distribution width (RBC) [Ratio] 15.4 % High 11.5-15.0 [facility] Comment on above: Order Comment: Speci men Type: BLOOD SPECIMEN Ordering Facility: [facility] Address: [address] [place] [address] Performed By: #### H STNT #### [facility] CLIA [id number] [address] Hematocrit (Bld) [Volume fraction] 41.3 % Normal 36.0-46.0 [facility] Comment on above: Order Comment: Speci men Type: BLOOD SPECIMEN Ordering Facility: [facility] Address: [address] [place] [address] Performed By: #### H STNT #### [facility] CLIA [id number] [address] OF [facility] Hemoglobin (Bld) [Mass/Vol] 12.7 g/dL Normal 11.5-15.5 [facility] Comment on above: Order Comment: Speci men Type: BLOOD SPECIMEN Ordering Facility: [facility] Address: [address] [place] [address] Performed By: #### H STNT #### [facility] CLIA [id number] [address] MCH (RBC) [Entitic mass] 25.2 pg Low 26.0-34.0 [facility] Comment on above: Order Comment: Speci men Type: BLOOD SPECIMEN Ordering Facility: [facility] Address: [address] [place] [address] Performed By: #### H STNT #### [facility] CLIA [id number] [address] MCHC (RBC) [Mass/Vol] 30.8 g/dL Normal 30.5-36.0 [facility] Comment on above: Order Comment: Speci men Type: BLOOD SPECIMEN Ordering Facility: [facility] Address: [address] [place] [address] Performed By: #### H STNT #### [facility] CLIA [id number] [address] MCV (RBC) [Entitic vol] 82.1 fL Normal 80.0-100.0 [facility] Comment on above: Order Comment: Speci men Type: BLOOD SPECIMEN Ordering Facility: [facility] Address: [address] [place] [address] Performed By: #### H STNT #### [facility] CLIA [id number] [address] Nucleated RBC (Bld) [#/Vol] 10*3/uL Normal <0.01 [facility] Comment on above: Order Comment: Speci men Type: BLOOD SPECIMEN Ordering Facility: [facility] Address: [address] [place] [address] Performed By: #### H STNT #### [facility] CLIA [id number] [address] Platelet mean volume (Bld) [Entitic vol] 11.8 fL Normal 9.0-12.7 [facility] Comment on above: Order Comment: Speci men Type: BLOOD SPECIMEN Ordering Facility: [facility] Address: [address] [place] [address] Performed By: #### H STNT #### [facility] CLIA [id number] [address] Platelets (Bld) [#/Vol] 200 10*3/uL Normal 150-400 [facility] Comment on above: Order Comment: Speci men Type: BLOOD SPECIMEN Ordering Facility: [facility] Address: [address] [place] [address] Performed By: #### H STNT #### [facility] CLIA [id number] [address] RBC (Bld) [#/Vol] 5.03 10*6/uL Normal 3.90-5.20 [facility] Comment on above: Order Comment: Speci men Type: BLOOD SPECIMEN Ordering Facility: [facility] Address: [address] [place] [address] Performed By: #### H STNT #### [facility] CLIA [id number] [address] WBC (Bld) [#/Vol] 10.88 10*3/uL Normal 3.70-11.00 [facility] Comment on above: Order Comment: Speci men Type: BLOOD SPECIMEN Ordering Facility: [facility] Address: [address] [place] [address] Performed By: #### H STNT #### [facility] CLIA [id number] [address] MRI CARD MORPH FUNC WO/W IVC ONon 01-15-2025 MRI CARD MORPH FUNC WO/W IVCON * * *Final Report* * * DATE OF EXAM: Jan 15 2025 8:06PM [place] [id number] - MRI CARD MORPH FUNC WO/W IVCON / PROCEDURE REASON: Ventricular tachycardia (VT), nonsustained * * * * Physician Interpretation * * * * Cardiac MRI Report: [facility] Date of service: 01/15/2025 6:27:12 PM Linked orders:[id number] CARD MORPH FUNC WO/W IVCON;[id number] CARDIAC VELOCITY FLOW MAP. Ordering physician: MARIE CAMERON Technologist: TIMOTHY MANNING Interpreting physician: Omkar Simmons MD PATIENT: Name: MRS. AMBIKA BROWN Age: 34 years Gender: F MRI Scanner: Siemens Clarisse 1.5T 34 year old female with with history of arrhythmia and/or syncope. Ventricular tachycardia This study is performed to there is concern for right ventricular dysplasia/ARVD. MRI Techniques: * Turbo spin echo and gradient echo imaging for anatomic definition. * Dynamic cine imaging (SSFP and GRE) for cardiac chamber and wall-motion analysis, and valvular analysis. * Delayed gadolinium enhancement analysis after injection of gadolinium-chelate. Gadolinium Agent: 20 cc of Gadavist was administered. Baseline vital signs: 70 bpm Height: 170.20 cm BSA: 2.68 m? Weight: 152.40 kg BMI: 52.6 kg/m? FINDINGS: Extracardiac findings: The chest wall appears normal. No significant adenopathy is identified. Limited imaging of the lungs reveals no gross abnormalities. Aorta: The thoracic aorta is normal in course, caliber and contour. Sinus: 2.9 cm Sinotubular junction: 2.4 cm Mid ascendin.0 cm Descending mid thoracic: 2.1 cm Pulmonary Arteries: Pulmonary Arteries: Normal Measurements: - Main pulmonary artery diameter: 2.6 cm - Right pulmonary artery diameter: 2.1 cm - Left pulmonary artery diameter: 2.0 cm Left Atrium: The left atrium is normal in size. LA volume: 87 ml (normal range: 28-100 ml) LA volume index: 32 ml/m? (normal range: 17-54 ml/m?) LA area (4ch): 25 cm? LA area (2ch): 23 cm? Right Atrium: The right atrium is normal in size. RA volume: 43 ml (normal range: 24-81 ml) RA volume index: 16 ml/m? (normal range: 18-58 ml/m?) RA area (4ch): 15 cm? Left Ventricle: The left ventricle is normal in size. Left ventricular systolic function is low normal. value (normal range) indexed (normal range) EDV: 190 ml (70-155 ml) EDVi: 71 ml/m? (45-93 ml/m?) ESV: 93 ml (15-64 ml) ESVi: 35 ml/m? (10-38 ml/m?) SV: 97 ml (47-99 ml) SVi: 36 ml/m? (30-59 ml/m?) EF: 51 % (52-79 %) CO: 6.8 l/min (3.0-6.9 l/min) CI: 2.5 l/min/m? (1.9-4.0 ml/min/m?) mass: 111 g (43-103 g) LVMi: 41 g/m? (30-59 g/m?) LV segment wall thickness: basal anteroseptum: 0.8 cm basal inferolateral: 0.6 cm Wall Motion: There are no wall motion abnormalities. Delayed Enhancement: There is no delayed enhancement. Right Ventricle: The right ventricle is normal in size. Right ventricular systolic function is normal. value (normal range) indexed (normal range) EDV: 178 ml (68-176 ml) EDVi: 66 ml/m? (48-104 ml/m?) ESV: 86 ml (20-80 ml) ESVi: 32 ml/m? (13-48 ml/m?) SV: 92 ml (39-109 ml) SVi: 34 ml/m? (29-66 ml/m?) EF: 52 % (46-74 %) CO: 6.4 l/min (2.4-6.4 l/min) CI: 2.4 l/min/m? (1.6-4.0 l/min/m?) T1 / T2 / ECV T2 * : +------+ +---- --+ +-----+ T1 pre (ms) +/- T1 post (ms) +/- +------+ +---- --+ +-----+ Base 965.53 70.17 420.00 52.69 +------+ +---- --+ +-----+ Mid 954.96 74.25 385.60 48.72 +------+ +---- --+ +-----+ [place] 980.82 159.75 387.09 45.90 +------+ +---- --+ +-----+ Global 964.68 96.35 399.68 52.43 +------+ +---- --+ +-----+ Normal values based on healthy individuals: T1: 950 +/- 21 ms; ECV: 26 +/- 4% T2 mapping: Global: 49.58 +/- 8.54 ms T2 * weighted imaging: LV myocardium: 36 +/- 2 ms Limited imaging of the abdomen reveals no gross abnormalities. IMPRESSION: - The left ventricle is normal in size (LV EDVi = 71 ml/m?). The left ventricular systolic function is low normal (LV EF = 51 %). - The right ventricle is normal in size (RV EDVi = 66 ml/m?). The right ventricular systolic function is normal (RV EF = 52 %). - Increased trabeculations are noted within the mid to distal left ventricular cavity, particularly close to the apex. The ratio of the trabeculated to the known trabeculated portion of the myocardium along the mid to distal anterolateral wall, in end diastole is calculated at 2.1. This value meets borderline criteria for cardiomyopathy with increased trabeculation. - A small area of dyskinesis is seen involving the distal free wall of the right ventricle. No fibrofatty infiltration is noted within this area on late gadolinium enhancement sequences. Also the right ventricular systolic function is normal and the right ventricle is not dilated. T (more content not included)... Normal [facility] MRI CARDIAC VELOCITY FLOW NANCY Klein 01-15-2025 MRI CARDIAC VELOCITY FLOW MAP * * *Final Report* * * DATE OF EXAM: Jan 15 2025 8:06PM [facility] 0704 - MRI CARDIAC VELOCITY FLOW MAP / PROCEDURE REASON: Ventricular tachycardia (VT), nonsustained * * * * Physician Interpretation * * * * Cardiac MRI Report: [facility] Date of service: 01/15/2025 6:27:12 PM Linked orders:[id number] CARD MORPH FUNC WO/W IVCON;[id number] CARDIAC VELOCITY FLOW MAP. Ordering physician: MARIE CAMERON Technologist: TIMOTHY MANNING Interpreting physician: Omkar Simmons MD PATIENT: Name: MRS. AMBIKA BROWN Age: 34 years Gender: F MRI Scanner: Siemens Clarisse 1.5T 34 year old female with with history of arrhythmia and/or syncope. Ventricular tachycardia This study is performed to there is concern for right ventricular dysplasia/ARVD. MRI Techniques: * Turbo spin echo and gradient echo imaging for anatomic definition. * Dynamic cine imaging (SSFP and GRE) for cardiac chamber and wall-motion analysis, and valvular analysis. * Delayed gadolinium enhancement analysis after injection of gadolinium-chelate. Gadolinium Agent: 20 cc of Gadavist was administered. Baseline vital signs: 70 bpm Height: 170.20 cm BSA: 2.68 m? Weight: 152.40 kg BMI: 52.6 kg/m? FINDINGS: Extracardiac findings: The chest wall appears normal. No significant adenopathy is identified. Limited imaging of the lungs reveals no gross abnormalities. Aorta: The thoracic aorta is normal in course, caliber and contour. Sinus: 2.9 cm Sinotubular junction: 2.4 cm Mid ascendin.0 cm Descending mid thoracic: 2.1 cm Pulmonary Arteries: Pulmonary Arteries: Normal Measurements: - Main pulmonary artery diameter: 2.6 cm - Right pulmonary artery diameter: 2.1 cm - Left pulmonary artery diameter: 2.0 cm Left Atrium: The left atrium is normal in size. LA volume: 87 ml (normal range: 28-100 ml) LA volume index: 32 ml/m? (normal range: 17-54 ml/m?) LA area (4ch): 25 cm? LA area (2ch): 23 cm? Right Atrium: The right atrium is normal in size. RA volume: 43 ml (normal range: 24-81 ml) RA volume index: 16 ml/m? (normal range: 18-58 ml/m?) RA area (4ch): 15 cm? Left Ventricle: The left ventricle is normal in size. Left ventricular systolic function is low normal. value (normal range) indexed (normal range) EDV: 190 ml (70-155 ml) EDVi: 71 ml/m? (45-93 ml/m?) ESV: 93 ml (15-64 ml) ESVi: 35 ml/m? (10-38 ml/m?) SV: 97 ml (47-99 ml) SVi: 36 ml/m? (30-59 ml/m?) EF: 51 % (52-79 %) CO: 6.8 l/min (3.0-6.9 l/min) CI: 2.5 l/min/m? (1.9-4.0 ml/min/m?) mass: 111 g (43-103 g) LVMi: 41 g/m? (30-59 g/m?) LV segment wall thickness: basal anteroseptum: 0.8 cm basal inferolateral: 0.6 cm Wall Motion: There are no wall motion abnormalities. Delayed Enhancement: There is no delayed enhancement. Right Ventricle: The right ventricle is normal in size. Right ventricular systolic function is normal. value (normal range) indexed (normal range) EDV: 178 ml (68-176 ml) EDVi: 66 ml/m? (48-104 ml/m?) ESV: 86 ml (20-80 ml) ESVi: 32 ml/m? (13-48 ml/m?) SV: 92 ml (39-109 ml) SVi: 34 ml/m? (29-66 ml/m?) EF: 52 % (46-74 %) CO: 6.4 l/min (2.4-6.4 l/min) CI: 2.4 l/min/m? (1.6-4.0 l/min/m?) T1 / T2 / ECV T2 * : +------+ +---- --+ +-----+ T1 pre (ms) +/- T1 post (ms) +/- +------+ +---- --+ +-----+ Base 965.53 70.17 420.00 52.69 +------+ +---- --+ +-----+ Mid 954.96 74.25 385.60 48.72 +------+ +---- --+ +-----+ [place] 980.82 159.75 387.09 45.90 +------+ +---- --+ +-----+ Global 964.68 96.35 399.68 52.43 +------+ +---- --+ +-----+ Normal values based on healthy individuals: T1: 950 +/- 21 ms; ECV: 26 +/- 4% T2 mapping: Global: 49.58 +/- 8.54 ms T2 * weighted imaging: LV myocardium: 36 +/- 2 ms Limited imaging of the abdomen reveals no gross abnormalities. IMPRESSION: - The left ventricle is normal in size (LV EDVi = 71 ml/m?). The left ventricular systolic function is low normal (LV EF = 51 %). - The right ventricle is normal in size (RV EDVi = 66 ml/m?). The right ventricular systolic function is normal (RV EF = 52 %). - Increased trabeculations are noted within the mid to distal left ventricular cavity, particularly close to the apex. The ratio of the trabeculated to the known trabeculated portion of the myocardium along the mid to distal anterolateral wall, in end diastole is calculated at 2.1. This value meets borderline criteria for cardiomyopathy with increased trabeculation. - A small area of dyskinesis is seen involving the distal free wall of the right ventricle. No fibrofatty infiltration is noted within this area on late gadolinium enhancement sequences. Also the right ventricular systolic function is normal and the right ventricle is not dilated. Th (more content not included)... Normal [facility] Basic metabolic 2000 panelon 01-14-2025 Anion gap [Moles/Vol] 11 mmol/L Normal 8-15 [facility] Comment on above: Order Comment: Speci men Type: BLOOD SPECIMEN Ordering Facility: [facility] Address: [address] [place] [address] Performed By: #### 2 4362-6 #### [facility] CLIA [id number] 1 [place] [address] [place] Calcium [Mass/Vol] 9.0 mg/dL Normal 8.5-10.2 [facility] Comment on above: Order Comment: Speci men Type: BLOOD SPECIMEN Ordering Facility: [facility] Address: [address] [place] [address] Performed By: #### 2 4362-6 #### [facility] CLIA [id number] 1 [place] [address] [place] Chloride [Moles/Vol] 103 mmol/L Normal 98-107 [facility] Comment on above: Order Comment: Speci men Type: BLOOD SPECIMEN Ordering Facility: [facility] Address: [address] [place] [address] Performed By: #### 2 4362-6 #### [facility] CLIA [id number] 1 [place] [address] [place] CO2 [Moles/Vol] 24 mmol/L Normal 22-30 [facility] Comment on above: Order Comment: Speci men Type: BLOOD SPECIMEN Ordering Facility: [facility] Address: [address] [place] [address] Performed By: #### 2 4362-6 #### [facility] CLIA [id number] 1 [place] [address] [place] Creatinine [Mass/Vol] 0.72 mg/dL Normal 0.58-0.96 [facility] Comment on above: Order Comment: Speci men Type: BLOOD SPECIMEN Ordering Facility: [facility] Address: [address] [place] [address] Performed By: #### 2 4362-6 #### [facility] CLIA [id number] 1 [place] [address] [place] Creatinine and Glomerular filtration rate.predicted panel (S/P/Bld) 113 mL/min/1.73m??? Normal >=60 [facility] Comment on above: Order Comment: Otis barfield Type: BLOOD SPECIMEN Ordering Facility: [facility] Address: [address] [place] [address] Result Comment: Duy mated Glomerular Filtration Rate (eGFR) is calculated using the 2020 CKD-EPI creatinine equation. This equation utilizes serum creatinine, sex, and age as parameters. The creatinine assay has traceable calibration to isotope dilution-mass spectrometry. Refer to KDIGO guidelines for clinical interpretation. In patients with unstable renal function, e.g. those with acute kidney injury, the eGFR may not accurately reflect actual GFR. Performed By: #### 2 4362-6 #### [facility] CLIA [id number] [address] [place] [address] [place] Glucose [Mass/Vol] 109 mg/dL High 74-99 [facility] Comment on above: Order Comment: Otis barfield Type: BLOOD SPECIMEN Ordering Facility: [facility] Address: [address] [place] [address] Result Comment: The [place] Diabetes Association (ADA) provides guidance for cutoff values for fasting glucose and random glucose. The ADA defines fasting as no caloric intake for at least 8 hours. Fasting plasma glucose results between 100 to 125 mg/dL indicate increased risk for diabetes (prediabetes). Fasting plasma glucose results greater than or equal to 126 mg/dL meet the criteria for diagnosis of diabetes. In the absence of unequivocal hyperglycemia, results should be confirmed by repeat testing. In a patient with classic symptoms of hyperglycemia or hyperglycemic crisis, random plasma glucose results greater than or equal to 200 mg/dL meet the criteria for diagnosis of diabetes. Reference: Standards of Medical Care in Diabetes 2016, [place] [employer]. Diabetes Care. 2016.39(Suppl 1). Performed By: #### 2 4362-6 #### [facility] CLIA [id number] [address] [place] [address] [place] Potassium [Moles/Vol] 4.0 mmol/L Normal 3.7-5.1 [facility] Comment on above: Order Comment: Speci men Type: BLOOD SPECIMEN Ordering Facility: [facility] Address: [address] [place] [address] Performed By: #### 2 4362-6 #### [facility] CLIA [id number] [address] [facility] Sodium [Moles/Vol] 138 mmol/L Normal 136-144 [facility] Comment on above: Order Comment: Speci men Type: BLOOD SPECIMEN Ordering Facility: [facility] Address: [address] [place] [address] Performed By: #### 2 4362-6 #### [facility] CLIA [id number] [address] Urea nitrogen [Mass/Vol] 11 mg/dL Normal 7-21 [facility] Comment on above: Order Comment: Speci men Type: BLOOD SPECIMEN Ordering Facility: [facility] Address: [address] [place] [address] Performed By: #### 2 4362-6 #### [facility] CLIA [id number] [address] [facility] CBC panel Auto (Bld)on 01-14 Erythrocyte distribution width (RBC) [Ratio] 15.5 % High 11.5-15.0 [facility] Comment on above: Order Comment: Speci men Type: BLOOD SPECIMEN Ordering Facility: [facility] Address: [address] [place] [address] Performed By: #### 1 9123-9, 79713-8 #### [facility] CLIA [id number] [address] Hematocrit (Bld) [Volume fraction] 41.4 % Normal 36.0-46.0 [facility] Comment on above: Order Comment: Speci men Type: BLOOD SPECIMEN Ordering Facility: [facility] Address: [address] [place] [address] Performed By: #### 1 9123-9, 98817-0 #### [facility] CLIA [id number] [address] STATES [facility] Hemoglobin (Bld) [Mass/Vol] 12.5 g/dL Normal 11.5-15.5 [facility] Comment on above: Order Comment: Speci men Type: BLOOD SPECIMEN Ordering Facility: [facility] Address: [address] [place] [address] Performed By: #### 1 9123-9, 58809-4 #### [facility] CLIA [id number] [address] [facility] MCH (RBC) [Entitic mass] 25.0 pg Low 26.0-34.0 [facility] Comment on above: Order Comment: Speci men Type: BLOOD SPECIMEN Ordering Facility: [facility] Address: [address] [place] [address] Performed By: #### 1 9123-9, 81486-2 #### [facility] CLIA [id number] [address] MCHC (RBC) [Mass/Vol] 30.2 g/dL Low 30.5-36.0 [facility] Comment on above: Order Comment: Speci men Type: BLOOD SPECIMEN Ordering Facility: [facility] Address: [address] [place] [address] Performed By: #### 1 9123-9, 72718-5 #### [facility] CLIA [id number] [address] [facility] MCV (RBC) [Entitic vol] 82.8 fL Normal 80.0-100.0 [facility] Comment on above: Order Comment: Speci men Type: BLOOD SPECIMEN Ordering Facility: [facility] Address: [address] [place] [address] Performed By: #### 1 9123-9, 92160-6 #### [facility] CLIA [id number] [address] Nucleated RBC (Bld) [#/Vol] 10*3/uL Normal <0.01 [facility] Comment on above: Order Comment: Speci men Type: BLOOD SPECIMEN Ordering Facility: [facility] Address: [address] [place] [address] Performed By: #### 1 9123-9, 08629-0 #### [facility] CLIA [id number] [address] [place] Platelet mean volume (Bld) [Entitic vol] 11.9 fL Normal 9.0-12.7 [facility] Comment on above: Order Comment: Speci men Type: BLOOD SPECIMEN Ordering Facility: [facility] Address: [address] [place] [address] Performed By: #### 1 9123-9, 55911-7 #### [facility] CLIA [id number] [address] [place] Platelets (Bld) [#/Vol] 200 10*3/uL Normal 150-400 [facility] Comment on above: Order Comment: Speci men Type: BLOOD SPECIMEN Ordering Facility: [facility] Address: [address] [place] [address] Performed By: #### 1 9123-9, 22484-0 #### [facility] CLIA [id number] 1 [place] [address] [place] RBC (Bld) [#/Vol] 5.00 10*6/uL Normal 3.90-5.20 [facility] Comment on above: Order Comment: Speci men Type: BLOOD SPECIMEN Ordering Facility: [facility] Address: [address] [place] [address] Performed By: #### 1 9123-9, 61690-4 #### [facility] CLIA [id number] 1 [place] [address] [place] WBC (Bld) [#/Vol] 10.84 10*3/uL Normal 3.70-11.00 [facility] Comment on above: Order Comment: Speci men Type: BLOOD SPECIMEN Ordering Facility: [facility] Address: [address] [place] [address] Performed By: #### 1 9123-9, 39473-3 #### [facility] CLIA [id number] 1 [place] [address] [place] CONSULT Trevor 01-14-2025 CONSULT PROG HNO ID: [id number] Author: MARIE CAMERON APRN.[email or web address] Service: Electrophysiology Author Type: Nurse Practitioner Type: Consult Progress Note Filed: 01/14/2025 14:25 Note Text: PROGRESS NOTE ELECTROPHYSIOLOGY SERVICE SERVICE DATE: 01/14/2025 SERVICE TIME: 9:51 AM Subjective INTERIM HISTORY: Chart reviewed, Patient seen and examined. She is sitting up in bed, reports occasional palpitations which she attributes to PVCs, has some dizziness with postural changes. Completed MRI questionnaire to allow MRI ordered to be processed she was made aware it will likely be done in the evening, and may not be for a day or so. She seemed quite overwhelmed and became somewhat tearful, stating she misses her toddler and at home, however understands the workup needs to be completed for her to get answers. She states the rapid palpitations typically occur with activity/exercise, in particular with showering, she has not been out of bed much due to the postural dizziness, though states it resolves, I have asked that she attempt ambulation to try and mimic activities that result in rapid palpitations so we can observe on telemetry, also spoke with patient's bedside nurse, will assist with ambulating patient. Review of Systems Constitutional: Negative for chills, diaphoresis and fever. Respiratory: Negative for cough, hemoptysis, sputum production, shortness of breath and wheezing. Cardiovascular: Positive for palpitations. Negative for chest pain, orthopnea, leg swelling and PND (was unable to tolerate CPAP). Neurological: Positive for dizziness (with postural changes). Negative for loss of consciousness and headaches. Objective PHYSICAL EXAM: Body mass index is 52.73 kg/m?. O2 Therapy: Room Air Patient Vitals for the past 24 hrs: BP Temp Temp src Pulse Resp SpO2 01/14/25 0719 135/79 36.6 ?C (97.9 ?F) Temporal 73 18 96 % 01/14/25 0422 119/75 36.5 ?C (97.7 ?F) Temporal 71 16 98 % 01/14/25 0004 106/62 36.4 ?C (97.6 ?F) Temporal 70 18 97 % 01/13/252006 -- 36.7 ?C (98.1 ?F) Temporal -- -- -- 01/13/25 1935 111/73 37.4 ?C (99.3 ?F) Oral 85 17 96 % 01/13/25 1512 111/58 36.7 ?C (98.1 ?F) Oral 78 17 97 % 01/13/25 1118 123/74 36.8 ?C (98.2 ?F) Oral 74 15 95 % Pleasant, comfortable, not in acute distress. SKIN: warm AND dry; normal color. HEENT: Normocephalic. NECK: Supple LUNGS: Clear to auscultation bilaterally. Respirations unlabored at rest. CARDIAC: Normal S1 and S2; regular rate and rhythm, occasional extrasystoles. EXTREMITIES: No edema lower extremities. NEURO: awake, alert, oriented X 3, moves all 4 extremities. PULSES: bilateral radial AND dorsalis pedis pulses palpable. MEDICATIONS: Current Facility-Administered Medications Medication Dose Route Frequency aspirin, enteric coated 81 mg tab(s) 81 mg ORAL AT BEDTIME metoprolol tartrate (short acting) 25 mg tab(s) (LOPRESSOR) 25 mg ORAL BID albuterol HFA 90 mcg/actuation 2 puff (PROVENTIL HFA, VENTOLIN HFA) 2 puff INHALATION q 4 H PRN levothyroxine 50 mcg tab(s) (SYNTHROID) 50 mcg ORAL DAILY (6 AM) aluminum-magnesium hydroxide-simethicone 200-200-20 mg/5 mL 30 mL 30 mL ORAL DAILY PRN ondansetron 4 mg tab(s) (ZOFRAN) 4 mg ORAL q 6 H PRN Or ondansetron (PF) 4 mg injection (ZOFRAN) 4 mg INTRAVENOUS q 6 H PRN acetaminophen 650 mg tab(s) (TYLENOL) 650 mg ORAL q 6 H PRN NaCl 0.9% iv flush bag 20 mL INTRAVENOUS PRN sodium chloride 0.9 % (flush) 2-10 mL (BD POSIFLUSH) 2-10 mL INTRAVENOUS DIRECTED PRN DATA: Diagnostic tests reviewed for today's visit: Most recent labs and imaging results. Most recent EKG Most recent Echocardiogram: 01/13/2025 CONCLUSIONS: - Technically difficult exam due to body habitus. - Exam indication: VT - The left ventricle is normal in size. Left ventricular systolic function is normal. EF = 55 ? 5% (2D biplane) Definity contrast used for endocardial border detection. Normal left ventricular diastolic function. - The right ventricle is normal in size. Right ventricular systolic function is normal. - There are no significant valvular abnormalities. - The patient has not had a prior CC echocardiographic exam for comparison. TELEMETRY/CHEF & OWNER: Sinus rhythm with occasional PVCs, rates in the 60s-80s. Past 72 Hour Labs: Recent Labs 01/14/25 0423 01/13/25 0700 WBC 10.84 11.91* RBC 5.00 5.04 HB 12.5 12.8 HCT 41.4 40.9 MCV 82.8 81.2 MCH 25.0* 25.4* MCHC 30.2* 31.3 RDWCV 15.5* 15.9* PLT 200 219 MPV 11.9 12.2 NEUTP -- 68.9 LYMPHP -- 21.7 MONOP -- 5.8 EODINP -- 2.8 BASOP -- 0.3 ABSNEUT -- 8.20* ABSMONO -- 0.69 ABSEOSIN -- 0.33 ABSBASO -- 0.04 GLUC 109* 113* BUN 11 10 CREAT 0.72 0.68 NA 138 138 K 4.0 4.2 CHLOR 103 105 CO2 24 25 TPROT -- 6.8 ALB -- 3.5* CA 9.0 8.6 ALKPHOS -- 107 TBILI -- 0.2 AST -- 15 ALT -- 19 MG 1.9 1.9 Last Lab Drawn: TSH 3.590 01/13/2025 Assessment/Plan Patient Active Hospital Problem List: (more content not included)... Normal [facility] Magnesium SerPl-mCncon 01-14 Magnesium [Mass/Vol] 1.9 mg/dL Normal 1.7-2.3 [facility] Comment on above: Order Comment: Speci men Type: BLOOD SPECIMEN Ordering Facility: [facility] Address: [address] [place] [address] Performed By: #### 2 4362-6 #### [facility] CLIA [id number] 1 [place] [address] [place] Basic Metabolic Profile (BMP )on 01-13-2025 BUN Normal 4-19 [facility] Comment on above: Result Comment: Canc elled via OM: Order cancelled - Patient discharged Performed By: #### L 500.2500 ####[facility] [address] [place], [address] BUN/CRE Normal 10-20 [facility] Comment on above: Result Comment: Canc elled via OM: Order cancelled - Patient discharged Performed By: #### L 500.2500 ####[facility] [address] [place], [address] Calcium Normal 7.6-11.0 [facility] Comment on above: Result Comment: Canc elled via OM: Order cancelled - Patient discharged Performed By: #### L 500.2500 ####[facility] [address] [place], [address] CL Normal 98-108 [facility] Comment on above: Result Comment: Canc elled via OM: Order cancelled - Patient discharged Performed By: #### L 500.2500 ####[facility] [address] [place], [address] CO2 Normal 21.0-32.0 [facility] Comment on above: Result Comment: Canc elled via OM: Order cancelled - Patient discharged Performed By: #### L 500.2500 ####[facility] [address] [place], [address] CREAT,SERUM Normal 0.70-1.20 [facility] Comment on above: Result Comment: Canc elled via OM: Order cancelled - Patient discharged Performed By: #### L 500.2500 ####[facility] [address] [place], [address] eGFR Normal >60 [facility] Comment on above: Result Comment: Canc elled via OM: Order cancelled - Patient discharged Performed By: #### L 500.2500 ####[facility] [address] [place], [address] GAP Normal 5-15 [facility] Comment on above: Result Comment: Canc elled via OM: Order cancelled - Patient discharged Performed By: #### L 500.2500 ####[facility] [address] [place], [address] GLU Normal 70-99 [facility] Comment on above: Result Comment: Canc elled via OM: Order cancelled - Patient discharged Performed By: #### L 500.2500 ####[facility] [address] [place], [address] Potassium Normal 3.3-5.1 [facility] Comment on above: Result Comment: Canc elled via OM: Order cancelled - Patient discharged Performed By: #### L 500.2500 ####[facility] [address] [place], [address] Basic Metabolic Profile (BMP) Normal 133-145 [facility] Comment on above: Result Comment: Canc elled via OM: Order cancelled - Patient discharged Performed By: #### L 500.2500 ####[facility] [address] [place], [address] CBC W Auto Differential pane l (Bld)on 01-13-2025 Basophils (Bld) [#/Vol] 0.04 10*3/uL Normal <0.11 [facility] Comment on above: Order Comment: Speci men Type: BLOOD SPECIMEN Ordering Facility: [facility] Address: [address] [place] [address] Performed By: #### 2 4362-6 #### [facility] CLIA [id number] 1 [place] [address] [place] Basophils/100 WBC (Bld) 0.3 % Normal [facility] Comment on above: Order Comment: Speci men Type: BLOOD SPECIMEN Ordering Facility: [facility] Address: [address] [place] [address] Performed By: #### 2 4362-6 #### [facility] CLIA [id number] [address] [place] Differential cell count method Nom (Bld) Auto Normal [facility] Comment on above: Order Comment: Speci men Type: BLOOD SPECIMEN Ordering Facility: [facility] Address: [address] [place] [address] Performed By: #### 2 4362-6 #### [facility] CLIA [id number] [address] [facility] Eosinophils (Bld) [#/Vol] 0.33 10*3/uL Normal <0.46 [facility] Comment on above: Order Comment: Speci men Type: BLOOD SPECIMEN Ordering Facility: [facility] Address: [facility] [place] [address] Performed By: #### 2 4362-6 #### [facility] CLIA [id number] [address] Eosinophils/100 WBC (Bld) 2.8 % Normal [facility] Comment on above: Order Comment: Speci men Type: BLOOD SPECIMEN Ordering Facility: [facility] Address: [address] [place] [address] Performed By: #### 2 4362-6 #### [facility] CLIA [id number] [address] Erythrocyte distribution width (RBC) [Ratio] 15.9 % High 11.5-15.0 [facility] Comment on above: Order Comment: Speci men Type: BLOOD SPECIMEN Ordering Facility: [facility] Address: [address] [place] [address] Performed By: #### 2 4362-6 #### [facility] CLIA [id number] [address] Hematocrit (Bld) [Volume fraction] 40.9 % Normal 36.0-46.0 [facility] Comment on above: Order Comment: Speci men Type: BLOOD SPECIMEN Ordering Facility: [facility] Address: [address] [place] [address] Performed By: #### 2 4362-6 #### [facility] CLIA [id number] [address] [place] Hemoglobin (Bld) [Mass/Vol] 12.8 g/dL Normal 11.5-15.5 [facility] Comment on above: Order Comment: Speci men Type: BLOOD SPECIMEN Ordering Facility: [facility] Address: [address] [place] [address] Performed By: #### 2 4362-6 #### [facility] CLIA [id number] [address] [place] Immature granulocytes (Bld) [#/Vol] 0.06 10*3/uL Normal <0.10 [facility] Comment on above: Order Comment: Speci men Type: BLOOD SPECIMEN Ordering Facility: [facility] Address: [address] [place] [address] Performed By: #### 2 4362-6 #### [facility] CLIA [id number] [address] [place] Immature granulocytes/100 WBC (Bld) 0.5 % Normal [facility] Comment on above: Order Comment: Speci men Type: BLOOD SPECIMEN Ordering Facility: [facility] Address: [address] [place] [address] Performed By: #### 2 4362-6 #### [facility] CLIA [id number] [address] [place] Lymphocytes (Bld) [#/Vol] 2.59 10*3/uL Normal 1.00-4.00 [facility] Comment on above: Order Comment: Speci men Type: BLOOD SPECIMEN Ordering Facility: [facility] Address: [address] [place] [address] Performed By: #### 2 4362-6 #### [facility] CLIA [id number] [address] [place] Lymphocytes/100 WBC (Bld) 21.7 % Normal [facility] Comment on above: Order Comment: Speci men Type: BLOOD SPECIMEN Ordering Facility: [facility] Address: [address] [place] [address] Performed By: #### 2 4362-6 #### [facility] CLIA [id number] [address] MCH (RBC) [Entitic mass] 25.4 pg Low 26.0-34.0 [facility] Comment on above: Order Comment: Speci men Type: BLOOD SPECIMEN Ordering Facility: [facility] Address: [address] [place] [address] Performed By: #### 2 4362-6 #### [facility] CLIA [id number] [address] MCHC (RBC) [Mass/Vol] 31.3 g/dL Normal 30.5-36.0 [facility] Comment on above: Order Comment: Speci men Type: BLOOD SPECIMEN Ordering Facility: [facility] Address: [address] [place] [address] Performed By: #### 2 4362-6 #### [facility] CLIA [id number] [address] MCV (RBC) [Entitic vol] 81.2 fL Normal 80.0-100.0 [facility] Comment on above: Order Comment: Speci men Type: BLOOD SPECIMEN Ordering Facility: [facility] Address: [address] [place] [address] Performed By: #### 2 4362-6 #### [facility] CLIA [id number] [address] Monocytes (Bld) [#/Vol] 0.69 10*3/uL Normal <0.87 [facility] Comment on above: Order Comment: Speci men Type: BLOOD SPECIMEN Ordering Facility: [facility] Address: [address] [place] [address] Performed By: #### 2 4362-6 #### [facility] CLIA [id number] [address] [place] Monocytes/100 WBC (Bld) 5.8 % Normal [facility] Comment on above: Order Comment: Speci men Type: BLOOD SPECIMEN Ordering Facility: [facility] Address: [address] [place] [address] Performed By: #### 2 4362-6 #### [facility] CLIA [id number] [address] [place] Neutrophils (Bld) [#/Vol] 8.20 10*3/uL High 1.45-7.50 [facility] Comment on above: Order Comment: Speci men Type: BLOOD SPECIMEN Ordering Facility: [facility] Address: [address] [place] [address] Performed By: #### 2 4362-6 #### [facility] CLIA [id number] [address] [place] Neutrophils/100 WBC (Bld) 68.9 % Normal [facility] Comment on above: Order Comment: Speci men Type: BLOOD SPECIMEN Ordering Facility: [facility] Address: [address] [place] [address] Performed By: #### 2 4362-6 #### [facility] CLIA [id number] [address] [place] Nucleated RBC (Bld) [#/Vol] 10*3/uL Normal <0.01 [facility] Comment on above: Order Comment: Speci men Type: BLOOD SPECIMEN Ordering Facility: [facility] Address: [address] [place] [address] Performed By: #### 2 4362-6 #### [facility] CLIA [id number] [address] [place] Nucleated RBC/100 WBC (Bld) [Ratio] 0.0 /100 WBC Normal [facility] Comment on above: Order Comment: Speci men Type: BLOOD SPECIMEN Ordering Facility: [facility] Address: [address] [place] [address] Performed By: #### 2 4362-6 #### [facility] CLIA [id number] [address] Platelet mean volume (Bld) [Entitic vol] 12.2 fL Normal 9.0-12.7 [facility] Comment on above: Order Comment: Speci men Type: BLOOD SPECIMEN Ordering Facility: [facility] Address: [address] [place] [address] Performed By: #### 2 4362-6 #### [facility] CLIA [id number] [address] OF [facility] Platelets (Bld) [#/Vol] 219 10*3/uL Normal 150-400 [facility] Comment on above: Order Comment: Speci men Type: BLOOD SPECIMEN Ordering Facility: [facility] Address: [address] [place] [address] Performed By: #### 2 4362-6 #### [facility] CLIA [id number] [address] RBC (Bld) [#/Vol] 5.04 10*6/uL Normal 3.90-5.20 [facility] Comment on above: Order Comment: Speci men Type: BLOOD SPECIMEN Ordering Facility: [facility] Address: [address] [place] [address] Performed By: #### 2 4362-6 #### [facility] CLIA [id number] [address] [place] WBC (Bld) [#/Vol] 11.91 10*3/uL High 3.70-11.00 [facility] Comment on above: Order Comment: Speci men Type: BLOOD SPECIMEN Ordering Facility: [facility] Address: [address] [place] [address] Performed By: #### 2 4362-6 #### [facility] CLIA [id number] [address] CONSULTon 01-13-2025 CONSULT HNO ID: [id number] Author: KARIN MARTINO MD Service: Electrophysiology Author Type: Physician Type: Consults Filed: 01/13/2025 15:27 Note Text: CONSULT NOTE SERVICE DATE: 01/13/2025 SERVICE TIME: 3:20 PM Physician Consult Consult performed by: Karin Martino MD Consult ordered by: Shaka Valerio MD Reason for consult: Palpitation PRIMARY CARE PHYSICIAN: Mega Weeks MD Subjective HPI 34-year-old female with history of hypertension, fibromyalgia, supraventricular cardia, known to Dr. Rock, transferred from an outside hospital with recurrent episodes of dizziness. The patient has been experiencing episodes of palpitation and dizziness for several years, but in the last several weeks they became more frequent and longer. She denies recent syncope per se, but states that on multiple occasions she feels heart racing and becomes markedly lightheaded, endorses chest pressure as well. Several years ago she underwent EPS for suspected SVT, and was not found to have clear evidence of substrate capable of supporting reentry. She underwent loop recorder implantation, but recently the device reached end-of-life and is no longer functional. The patient is scheduled for a repeat electrophysiologic study with Dr. Rock in the next few months due to ongoing symptoms. On presentation to an outside hospital she had several episodes of monomorphic nonsustained ventricular tachycardia with outflow tract morphology (left bundle, inferior axis, precordial transition in V2-V3). Several episodes were captured on a twelve-lead ECG. It is not clear whether the patient experienced any symptoms at the time. She had an echocardiogram showing LVEF of 50%, received intravenous amiodarone with amelioration of NSVT, and was transferred to [facility] She states that her episodes appear to be provoked by physical exertion. Telemetry shows normal sinus rhythm. Currently in bed reports feeling better, although markedly anxious FUNCTIONAL STATUS: Independent PAST MEDICAL HISTORY Diagnosis Date Asthma (HCC) Chronic hypertension Clotting disorder (HCC) Fibromyalgia GERD (gastroesophageal reflux disease) Gestational diabetes (HCC) Hiatal hernia Hypothyroidism Implantable loop recorder present Insulin resistance Lupus anticoagulant disorder (HCC) Migraines Nonsustained ventricular tachycardia (HCC) Obesity, Class III, BMI >= 40 07/15/2021 Obstructive sleep apnea syndrome 09/21/2022 Has CPAP machine but currently not using- needs to get full mask, still working on this. Challenged with side sleeping and nasal congestion impacting comfort with mask. Suggest cool mist humidifier. Counseled on importance of compliance for and cardiovascular health. improved sleep with pillow adjustment. reports no further snoring Reviewed on 06/18/2023 Palpitations Pancreatitis (HCC) Paroxysmal supraventricular tachycardia (HCC) Pre-eclampsia (HCC) Supraventricular tachycardia (HCC) Syncope Thyroid disease PAST SURGICAL HISTORY Procedure Laterality Date DELIVERY ONLY 05/09/2023 CHOLECYSTECTOMY 2014 DANDC, DIAG AND/OR THERAPEUTIC 2018 EP STUDY 02/13/2022 comprehensive EP study; normal study, no accessory pathways; +dual AV azra pathways but no inducible SVT; CCAG Dr. Rock LOOP RECORDER IMPLANT Left 08/2022 [employer]/SJM implantable cardiac loop recorder insertion ORAL SURGERY PROCEDURE 2009 wisdom teeth TONSILLECTOMY HX 2005 FAMILY HISTORY Problem Relation Age of Onset Hypothyroidism Mother Cancer Mother glioblastoma Hyperlipidemia Father Hypertension Father Asthma Sister Migraines Sister Bipolar disorder Sister No Known Problems Brother No Known Problems Brother Diabetes Maternal Grandmother Diabetes Maternal Grandfather Stroke Paternal Grandmother other (COVID-19) Paternal Grandmother Heart disease Paternal Grandfather had two open heart surgeries Social History Tobacco Use Smoking status: Never Smokeless tobacco: Never Vaping Use Vaping status: Never Used Substance Use Topics Alcohol use: Never Drug use: Never onabotulinum toxin type A 155 Units injection (BOTOX), 155 Units, INTRADERMAL, q 3 MONTHS, Dalila Fernandez, FORMULA CHECKER.SCHEDULE CHECKER, 155 Units at 08/01/24 1300 metoprolol tartrate, short acting, (LOPRESSOR) 25 mg tablet, Take 1 tablet by mouth two times a day., Disp: , Rfl: , Taking lisinopril (ZESTRIL) 20 mg tablet, Take 20 mg by mouth two times a day., Disp: , Rfl: , Taking ascorbic acid, vitamin C, (VITAMIN C) 500 mg tablet, Take 500 mg by mouth once daily., Disp: , Rfl: , Taking amLODIPine (NORVASC) 5 mg tablet, Take 5 mg by mouth once daily., Disp: , Rfl: , Taking gabapentin (NEURONTIN) 100 mg capsule, Take 100 mg by mouth as needed (migraine)., Disp: , Rfl: , Taking As Needed ondansetron (ZOFRAN) 8 mg tablet, FOR NAUSEA. Take on at onset of nausea or migraine,m (more content not included)... Normal [facility] Comprehensive metabolic 2000 panelon 01-13-2025 Albumin [Mass/Vol] 3.5 g/dL Low 3.9-4.9 [facility] Comment on above: Order Comment: Speci men Type: BLOOD SPECIMEN Ordering Facility: [facility] Address: [address] [place] [address] Performed By: #### 1 9123-9, 03389-5 #### [facility] CLIA [id number] [address] ALP [Catalytic activity/Vol] 107 U/L Normal 34-123 [facility] Comment on above: Order Comment: Speci men Type: BLOOD SPECIMEN Ordering Facility: [facility] Address: [address] [place] [address] Performed By: #### 1 9123-9, 28298-3 #### [facility] CLIA [id number] [address] OF [facility] ALT With P-5'-P [Catalytic activity/Vol] 19 U/L Normal 7-38 [facility] Comment on above: Order Comment: Speci men Type: BLOOD SPECIMEN Ordering Facility: [facility] Address: [address] [place] [address] Performed By: #### 1 9123-9, 24974-0 #### [facility] CLIA [id number] [address] Anion gap [Moles/Vol] 8 mmol/L Normal 8-15 [facility] Comment on above: Order Comment: Speci men Type: BLOOD SPECIMEN Ordering Facility: [facility] Address: [address] [place] [address] Performed By: #### 1 9123-9, 06789-0 #### [facility] CLIA [id number] [address] AST With P-5'-P [Catalytic activity/Vol] 15 U/L Normal 13-35 [facility] Comment on above: Order Comment: Speci men Type: BLOOD SPECIMEN Ordering Facility: [facility] Address: [address] [place] [address] Performed By: #### 1 239, 88788-0 #### [facility] CLIA [id number] 1 [place] [address] [place] Bilirubin [Mass/Vol] 0.2 mg/dL Normal 0.2-1.3 [facility] Comment on above: Order Comment: Speci men Type: BLOOD SPECIMEN Ordering Facility: [facility] Address: [address] [place] [address] Performed By: #### 1 9, 41020-6 #### [facility] CLIA [id number] 1 [place] [address] [place] Calcium [Mass/Vol] 8.6 mg/dL Normal 8.5-10.2 [facility] Comment on above: Order Comment: Speci men Type: BLOOD SPECIMEN Ordering Facility: [facility] Address: [address] [place] [address] Performed By: #### 1 9123-05, 25877-8 #### [facility] CLIA [id number] 1 [place] [address] [place] Chloride [Moles/Vol] 105 mmol/L Normal 98-107 [facility] Comment on above: Order Comment: Speci men Type: BLOOD SPECIMEN Ordering Facility: [facility] Address: [address] [place] [address] Performed By: #### 1 9123-05, 68550-0 #### [facility] CLIA [id number] 1 [place] [address] [place] CO2 [Moles/Vol] 25 mmol/L Normal 22-30 [facility] Comment on above: Order Comment: Speci men Type: BLOOD SPECIMEN Ordering Facility: [facility] Address: [address] [place] [address] Performed By: #### 1 239, 15694-4 #### [facility] CLIA [id number] 1 [place] [address] [place] Creatinine [Mass/Vol] 0.68 mg/dL Normal 0.58-0.96 [facility] Comment on above: Order Comment: Otis barfield Type: BLOOD SPECIMEN Ordering Facility: [facility] Address: [address] [place] [address] Performed By: #### 1 9123-9, 02475-7 #### [facility] CLIA [id number] [address] [facility] Creatinine and Glomerular filtration rate.predicted panel (S/P/Bld) 118 mL/min/1.73m??? Normal >=60 [facility] Comment on above: Order Comment: Otis barfield Type: BLOOD SPECIMEN Ordering Facility: [facility] Address: [address] [place] [address] Result Comment: Duy mated Glomerular Filtration Rate (eGFR) is calculated using the 2020 CKD-EPI creatinine equation. This equation utilizes serum creatinine, sex, and age as parameters. The creatinine assay has traceable calibration to isotope dilution-mass spectrometry. Refer to KDIGO guidelines for clinical interpretation. In patients with unstable renal function, e.g. those with acute kidney injury, the eGFR may not accurately reflect actual GFR. Performed By: #### 1 9123-9, 08320-8 #### [facility] CLIA [id number] [address] [place] [address] [place] Glucose [Mass/Vol] 113 mg/dL High 74-99 [facility] Comment on above: Order Comment: Otis barfiedl Type: BLOOD SPECIMEN Ordering Facility: [facility] Address: [address] [place] [address] Result Comment: The [place] Diabetes Association (ADA) provides guidance for cutoff values for fasting glucose and random glucose. The ADA defines fasting as no caloric intake for at least 8 hours. Fasting plasma glucose results between 100 to 125 mg/dL indicate increased risk for diabetes (prediabetes). Fasting plasma glucose results greater than or equal to 126 mg/dL meet the criteria for diagnosis of diabetes. In the absence of unequivocal hyperglycemia, results should be confirmed by repeat testing. In a patient with classic symptoms of hyperglycemia or hyperglycemic crisis, random plasma glucose results greater than or equal to 200 mg/dL meet the criteria for diagnosis of diabetes. Reference: Standards of Medical Care in Diabetes 2016, [place] [employer] Association. Diabetes Care. 2016.39(Suppl 1). Performed By: #### 1 9123-9, 33117-0 #### [facility] CLIA [id number] [address] STATES [facility] Potassium [Moles/Vol] 4.2 mmol/L Normal 3.7-5.1 [facility] Comment on above: Order Comment: Speci men Type: BLOOD SPECIMEN Ordering Facility: [facility] Address: [address] [place] [address] Performed By: #### 1 9123-9, 88382-7 #### [facility] CLIA [id number] 1 [place] [address] [place] Protein [Mass/Vol] 6.8 g/dL Normal 6.3-8.0 [facility] Comment on above: Order Comment: Speci men Type: BLOOD SPECIMEN Ordering Facility: [facility] Address: [address] [place] [address] Performed By: #### 1 91239, 71495-1 #### [facility] CLIA [id number] [address] [place] Sodium [Moles/Vol] 138 mmol/L Normal 136-144 [facility] Comment on above: Order Comment: Speci men Type: BLOOD SPECIMEN Ordering Facility: [facility] Address: [address] [place] [address] Performed By: #### 1 239, 13373-4 #### [facility] CLIA [id number] 1 [place] [address] [place] Urea nitrogen [Mass/Vol] 10 mg/dL Normal 7-21 [facility] Comment on above: Order Comment: Speci men Type: BLOOD SPECIMEN Ordering Facility: [facility] Address: [address] [place] [address] Performed By: #### 1 9123-9, 87004-7 #### [facility] CLIA [id number] [address] [place] ECG COMPLETEon 01-13-2025 ECG COMPLETE Ventricular Rate : 7 1 BPM Atrial Rate : 71 BPM P-R Interval : 192 ms QRS Duration : 84 ms Q-T Interval : 432 ms QTC Calculation(Bazett) : 469 ms Calculated P [place] : 31 degrees Calculated R [place] : 16 degrees Calculated T [place] : 47 degrees NORMAL SINUS RHYTHM NORMAL ECG NO PREVIOUS ECGS AVAILABLE Confirmed by MD MONTERROSO VINAY ([id number]) on 01/15/2025 8:16:38 AM NAME : AMBIKA BROWN PID : [id number] : 1990 Gender : Female Race : ORD : [id number] Procedure Date : Jan 13 2025 06:56:57 Edit Date : Jan 15 2025 08:16:39 Diagnosis: NORMAL SINUS RHYTHM NORMAL ECG NO PREVIOUS ECGS AVAILABLE Confirmed by MD MONTERROSO VINAY ([id number]) on 01/15/2025 8:16:38 AM Test Reason : Arrhythmia Location : [address] : [place] [address] Overread By : MD MONTERROSO VINAY Edited By : MD MONTERROSO VINAY Referred By : CESAR SANCHEZ Acquired by : NGA STANLEY [facility] ECHOon 01-13-2025 Echocardiography Echocardiography Rep ort: Transthoracic Echo [facility] Date of service: 01/13/2025 10:19:13 AM [facility] Ordering physician: SHAQUILLE BECK Indication: [place] Technologist: Elissa Johnson Interpreting physician: Silvano Hsu MD PATIENT: Name: MRS. AMBIKA BROWN : 1990 Age: 34 years Gender: F History of hypertension and diabetes mellitus. Primary rhythm: sinus. Height: 170.20 cm BSA: 2.69 m Weight: 152.70 kg BMI: 52.7 kg/m Heart rate 70 bpm Blood pressure 125/86 mmHg Technically difficult exam due to body habitus. Color Doppler was utilized to interrogate the cardiac valves assessed and spectral Doppler was utilized to determine the flow velocities and pressure gradients reported in this exam. MEASUREMENTS: Value Indexed Normal Max aortic dimension 2.9 cm Ao < 3.8 Left atrial volume 84 ml (biplane A-L) 31 ml/m Nima <= 34 LV ID (diastole) 5.9 cm (2D) 2.20 cm/m LV ID (systole) 4.2 cm (2D) 1.57 cm/m IVS, leaflet tips 0.9 cm (2D) Posterior wall thickness 0.9 cm (2D) Left ventricular mass 213 g (2D) 79 g/m LV stroke volume 100 ml (2D biplane) LV end diastolic volume 184 ml (2D biplane) 68.4 ml/m 29<=EDVi<62 LV end systolic volume 84 ml (2D biplane) 31.1 ml/m Ejection Fraction 55 % (2D biplane) EF > 54 FINDINGS: LEFT VENTRICLE The left ventricle is normal in size. Left ventricular systolic function is normal globally. Normal left ventricular diastolic function. Mitral annular lateral E/e': 4.8. Mitral annular septal E/e': 7.0. Definity contrast used for endocardial border detection. Wall Motion: All scored segments are normal. RIGHT VENTRICLE The right ventricle is normal in size. Right ventricular systolic function is normal. RV systolic tissue Doppler velocity is 13.0 cm/s. Tricuspid annular displacement is 2.3 cm. Estimated right ventricular systolic pressure is not reported due to an insufficient tricuspid regurgitation signal. Estimated right atrial pressure is 3 mmHg based on IVC assessment. LEFT ATRIUM The left atrial cavity is normal in size. RIGHT ATRIUM The right atrial cavity is normal in size. Inferior Vena Cava: The inferior vena cava appears normal measuring 1.4 cm. The vessel decreases greater than 50 percent with inspiration. MITRAL VALVE The mitral valve leaflets are structurally normal. There is trace mitral valve regurgitation. The pressure half time is 55 msec. The peak mitral E/A ratio is 1.82. The average mitral E/e' ratio is 5.9. The mitral flow deceleration time is 189 msec. TRICUSPID VALVE The tricuspid valve leaflets are structurally normal. There is trace tricuspid valve regurgitation. AORTIC VALVE The aortic valve cusps are structurally normal. There is no aortic valve regurgitation. Tricuspid aortic valve. PULMONIC VALVE There is no pulmonic valve regurgitation. There is no thickening. AORTA The visualized aorta is normal in size. Measurements - Mid ascending aorta 2.9 cm. PULMONARY ARTERIES The pulmonary arteries are unseen or not interrogated. INTERATRIAL SEPTUM There is no evidence of intracardiac shunting as detected by Doppler. INTERVENTRICULAR SEPTUM There is no flow through the interventricular septum as detected by Doppler. PERICARDIUM There is no pericardial effusion. There is an epicardial fat pad. CONCLUSIONS: - Technically difficult exam due to body habitus. - Exam indication: VT - The left ventricle is normal in size. Left ventricular systolic function is normal. EF = 55 5% (2D biplane) Definity contrast used for endocardial border detection. Normal left ventricular diastolic function. - The right ventricle is normal in size. Right ventricular systolic function is normal. - There are no significant valvular abnormalities. - The patient has not had a prior CC echocardiographic exam for comparison. * * * Final * * * CC [facility] [employer] [facility] Image : [id number] Normal [facility] HCG Preg Ur Qlon 01-13-2025 HCG ( test) Ql (U) Negative Normal Negative [facility] Comment on above: Order Comment: Otis barfield Type: BLOOD SPECIMEN Ordering Facility: [facility] Address: [address] [place] [address] Result Comment: This test is intended to aid in the early detection of . Very dilute urine samples, as indicated by a low specific gravity, may not contain telephone sales representative levels of hCG. This test detects intact hCG only. This test does not reliably detect hCG degradation products, including free-beta subunit and beta-core fragment. Therefore, this test may show reduced reactivity in urine after 8 weeks gestation. A number of conditions other than , including trophoblastic disease and certain non-trophoblastic neoplasms cause elevated levels of hCG. As with any assay employing mouse antibodies, the possibility exists for interference by human anti-mouse antibodies (HAMA) in the specimen. The test provides a presumptive diagnosis for . Performed By: #### 2 4362-6 #### [facility] CLIA [id number] [address] [place] [address] [place] HIGH SENSITIVITY TROPONIN To n 01-13-2025 Troponin T.cardiac High sensitivity method [Mass/Vol] <6 Normal <12 [facility] Comment on above: Order Comment: Otis barfield Type: BLOOD SPECIMEN Ordering Facility: [facility] Address: [address] [place] [address] Performed By: #### H STNT #### [facility] CLIA [id number] 1 [place] [address] [place] HISTORY PHYSICALon HISTORY PHYSICAL HNO ID: [id number] Author: SHAQUILLE BECK DO Service: Hospital Medicine Author Type: Physician Type: H&P Filed: 01/13/2025 08:38 Note Text: DEPARTMENT OF HOSPITAL MEDICINE HISTORY AND PHYSICAL EXAM SERVICE DATE: 01/13/2025 SERVICE TIME: 7:17 AM Primary Care Physician: Mega Weeks MD NIGHT AND WEEKEND COVERAGE: From 7am - 7pm, please call sound team assigned After 7pm, please call cross cover pager #[phone] Subjective CHIEF COMPLAINT: Palpitations HPI: This is a 34 year old female with a past medical history of SVT, hypertension who presents with palpitations. Patient presented to [facility] with palpitations. She was found to be in V. tach and given amiodarone. EP was contacted and she was transferred to our facility. Upon interview she is resting bed in no acute distress. No current chest pain. She reports previous history of syncope with tearing this episode she was lightheaded but did not pass out. She denies any changes to her medications. She follows with EP and has a loop recorder implanted. Denies chest pain, palpations, orthopnea, shortness of breath, cough, fever, chills, nausea, vomiting, diarrhea Discussed with ED staff and patient requires admission to the hospital. PAST MEDICAL HISTORY Diagnosis Date Asthma (HCC) Chronic hypertension Clotting disorder (HCC) Fibromyalgia GERD (gastroesophageal reflux disease) Gestational diabetes (HCC) Hiatal hernia Hypothyroidism Implantable loop recorder present Insulin resistance Lupus anticoagulant disorder (HCC) Migraines Nonsustained ventricular tachycardia (HCC) Obesity, Class III, BMI >= 40 07/15/2021 Obstructive sleep apnea syndrome 09/21/2022 Has CPAP machine but currently not using- needs to get full mask, still working on this. Challenged with side sleeping and nasal congestion impacting comfort with mask. Suggest cool mist humidifier. Counseled on importance of compliance for and cardiovascular health. improved sleep with pillow adjustment. reports no further snoring Reviewed on 06/18/2023 Palpitations Pancreatitis (HCC) Paroxysmal supraventricular tachycardia (HCC) Pre-eclampsia (HCC) Supraventricular tachycardia (HCC) Syncope Thyroid disease PAST SURGICAL HISTORY Procedure Laterality Date DELIVERY ONLY 05/09/2023 CHOLECYSTECTOMY 2014 DANDC, DIAG AND/OR THERAPEUTIC 2018 EP STUDY 02/13/2022 comprehensive EP study; normal study, no accessory pathways; +dual AV azra pathways but no inducible SVT; CCAG Dr. Rock LOOP RECORDER IMPLANT Left 08/2022 [employer]/SJM implantable cardiac loop recorder insertion ORAL SURGERY PROCEDURE 2008 wisdom teeth TONSILLECTOMY HX 2005 FAMILY HISTORY Problem Relation Age of Onset Hypothyroidism Mother Cancer Mother glioblastoma Hyperlipidemia Father Hypertension Father Asthma Sister Migraines Sister Bipolar disorder Sister No Known Problems Brother No Known Problems Brother Diabetes Maternal Grandmother Diabetes Maternal Grandfather Stroke Paternal Grandmother other (COVID-19) Paternal Grandmother Heart disease Paternal Grandfather had two open heart surgeries Social History Tobacco Use Smoking status: Never Smokeless tobacco: Never Vaping Use Vaping status: Never Used Substance Use Topics Alcohol use: Never Drug use: Never HOME MEDICATIONS: Prior to Admission Medications Prescriptions Last Dose Informant Patient Reported? Taking? PNV/FERROUS SULFATE/FOLIC ACID ( MULTIVIT WITH IRON ORAL) Yes No Sig: Take by mouth daily at bedtime. albuterol HFA (PROVENTIL HFA, VENTOLIN HFA) 90 mcg/actuation inhaler Yes Yes Sig: Inhale 2 Puffs as instructed every 4 hours as needed for Wheezing/Shortness of Breath. amLODIPine (NORVASC) 5 mg tablet Yes Yes Sig: Take 5 mg by mouth once daily. ascorbic acid, vitamin C, (VITAMIN C) 500 mg tablet Yes Yes Sig: Take 500 mg by mouth once daily. aspirin, enteric coated (ASPIRIN, ENTERIC COATED) 81 mg EC tablet Yes Yes Sig: Take 81 mg by mouth daily at bedtime. cholecalciferol, vitamin D3, (VITAMIN D3 ORAL) Yes Yes Sig: Take by mouth once daily. gabapentin (NEURONTIN) 100 mg capsule Yes Yes Sig: Take 100 mg by mouth as needed (migraine). levothyroxine (SYNTHROID) 50 mcg tablet Yes Yes Sig: Take 50 mcg by mouth every morning. Take On an Empty Stomach lisinopril (ZESTRIL) 20 mg tablet Yes Yes Sig: Take 20 mg by mouth two times a day. methocarbamol (ROBAXIN) 500 mg tablet No No Sig: Take 1 tablet (500 mg) by mouth four times a day until headache free for 24 hours or take for full 5 days. metoprolol tartrate, short acting, (LOPRESSOR) 25 mg tablet Yes Yes Sig: Take 1 tablet by mouth two times a day. naproxen (NAPROSYN) 500 mg tablet No Yes Sig: Take 1 tablet by mouth two times a day as needed for pain. ondansetron (ZOFRAN) 8 mg tablet No Yes Sig: FOR NAUSEA. Take on at onset of nausea or migraine,may repeat d (more content not included)... Normal [facility] Magnesium SerPl-mCncon 01-13 Magnesium [Mass/Vol] 1.9 mg/dL Normal 1.7-2.3 [facility] Comment on above: Order Comment: Otis barfield Type: BLOOD SPECIMEN Ordering Facility: [facility] Address: [address] [place] [address] Performed By: #### 1 9123-9, 12563-0 #### [facility] CLIA [id number] [address] [place] [address] [place] TSH W/REFLEX FT4on 5 TSH Qn 3.590 m[IU]/L Normal 0.270-4.200 [facility] Comment on above: Order Comment: tOis barfield Type: BLOOD SPECIMEN Ordering Facility: [facility] Address: [address] [place] [address] Result Comment: If t he patient is , TSH reference range varies by gestational period: First Trimester (weeks 9-12): 0.180-2.990 mIU/L Second Trimester: 0.110-3.980 mIU/L Third Trimester: 0.480-4.710 mIU/L Jesus Little et al. A Practical Approach for the Verifications and Determination of Site- and Trimester-Specific Reference Intervals for Thyroid Function tests in . Thyroid, 2019:29:3:412-420. Javier Campbell, et al. 2017 Guidelines of the [place] [employer] for the Diagnosis and Management of Thyroid Disease during and the . Thyroid, 2017:27:3:315-389. Performed By: #### 1 9123-9, 46476-3 #### [facility] CLIA [id number] [address] Urinalysis complete panel (U )on 01-13-2025 Bilirubin Ql (U) Negative Normal Negative [facility] Comment on above: Order Comment: Speci men Type: BLOOD SPECIMEN Ordering Facility: [facility] Address: [facility] [place] [address] Performed By: #### 1 239, 07212-1 #### [facility] CLIA [id number] [address] Clarity (Unsp spec) Clear Normal Clear [facility] Comment on above: Order Comment: Speci men Type: BLOOD SPECIMEN Ordering Facility: [facility] Address: [address] [place] [address] Performed By: #### 1 9123-05, 63169-4 #### [facility] CLIA [id number] [address] Color (U) Light Yellow Normal yellow [facility] Comment on above: Order Comment: Speci men Type: BLOOD SPECIMEN Ordering Facility: [facility] Address: [address] [place] [address] Performed By: #### 1 9123-05, 07001-4 #### [facility] CLIA [id number] [address] Glucose Test strip (U) [Mass/Vol] Negative Normal Trace, Negative [facility] Comment on above: Order Comment: Speci men Type: BLOOD SPECIMEN Ordering Facility: [facility] Address: [address] [place] [address] Performed By: #### 1 9123-05, 26358-0 #### [facility] CLIA [id number] [address] Hemoglobin Ql (U) Negative Normal Negative, Trace [facility] Comment on above: Order Comment: Speci men Type: BLOOD SPECIMEN Ordering Facility: [facility] Address: [address] [place] [address] Performed By: #### 1 9123-05, 71757-6 #### [facility] CLIA [id number] [address] [place] Ketones Ql (U) Negative Normal Negative, Trace [facility] Comment on above: Order Comment: Speci men Type: BLOOD SPECIMEN Ordering Facility: [facility] Address: [address] [place] [address] Performed By: #### 1 9123-9, 67540-2 #### [facility] CLIA [id number] [address] [place] Leukocyte esterase Test strip Ql (U) 250 Mickey/uL Abnormal Negative, 25 Mickey/uL [facility] Comment on above: Order Comment: Speci men Type: BLOOD SPECIMEN Ordering Facility: [facility] Address: [address] [place] [address] Performed By: #### 1 9123-9, 14493-1 #### [facility] CLIA [id number] [address] [place] Nitrite Ql (U) Negative Normal Negative [facility] Comment on above: Order Comment: Speci men Type: BLOOD SPECIMEN Ordering Facility: [facility] Address: [address] [place] [address] Performed By: #### 1 9123-9, 38878-3 #### [facility] CLIA [id number] [address] [place] pH (U) 6.5 [pH] Normal 5.0-8.0 [facility] Comment on above: Order Comment: Speci men Type: BLOOD SPECIMEN Ordering Facility: [facility] Address: [address] [place] [address] Performed By: #### 1 9123-9, 60564-9 #### [facility] CLIA [id number] [address] [place] Protein (U) [Mass/Vol] Negative Normal Trace , Negative [facility] Comment on above: Order Comment: Speci men Type: BLOOD SPECIMEN Ordering Facility: [facility] Address: [facility] [place] [address] Performed By: #### 1 9123-05, #### [facility] CLIA [id number] [address] RBC LM.HPF (Urine sed) [#/Area] 0-3 /HPF Normal 0-3 /HPF [facility] Comment on above: Order Comment: Speci men Type: BLOOD SPECIMEN Ordering Facility: [facility] Address: [address] [place] [address] Performed By: #### 1 9123-05, #### [facility] CLIA [id number] [address] [place] Specific gravity (U) [Rel density] 1.016 Normal 1.005-1.030 [facility] Comment on above: Order Comment: Speci men Type: BLOOD SPECIMEN Ordering Facility: [facility] Address: [address] [place] [address] Performed By: #### 1 9123-05, #### [facility] CLIA [id number] [address] [place] [address] Urobilinogen Ql (U) Normal Normal Normal [facility] Comment on above: Order Comment: Speci men Type: BLOOD SPECIMEN Ordering Facility: [facility] Address: [address] [place] [address] Performed By: #### 1 9123-05, #### [facility] CLIA [id number] [address] [place] [address] WBC LM.HPF (Urine sed) [#/Area] 0-5 /HPF Normal 0-5 /HPF [facility] Comment on above: Order Comment: Speci men Type: BLOOD SPECIMEN Ordering Facility: [facility] Address: [address] [place] [address] Performed By: #### 1 239, #### [facility] CLIA [id number] [address] Absolute lymphocyte countOrd ered By: Marlon Damon on 01-12-2025 Lymphocytes Auto (Unsp spec) [#/Vol] 2.31 10*3/uL 0.83-4.51 [facility] Absolute neutrophil countOrd ered By: Marlon Damon on 01-12-2025 Neutrophils (Bld) [#/Vol] 5.6 10*3/uL 2.0-7.7 [facility] Anion gap in Serum or Plasma Ordered By: Marlon Damon on 01-12-2025 Anion gap [Moles/Vol] 10 mmol/L 5-15 [facility] Automated blood erythrocyte countOrdered By: Marlon Damon on 01-12-2025 RBC (Bld) [#/Vol] 4.65 10*6/uL Normal 4.2-5.4 [facility] Comment on above: Performed By: #### L 501.9520, L501.5200, L100.0100, L500.2500 #### [facility] [address] [place], [place], [id number] Automated blood hematocrit ( percentage)Ordered By: Marlon Damon on 01-12-2025 Hematocrit (Bld) [Volume fraction] 37.0 % Normal 37-47 [facility] Comment on above: Performed By: #### L 501.9520, L501.5200, L100.0100, L500.2500 #### [facility] [address] [place], [place], [address] Automated lymphocyte count a s percentage of total leukocytesOrdered By: Marlon Damon on 01-12-2025 Lymphocytes/100 WBC Auto (Unsp spec) 26.3 % 19-41 [facility] BUN/creatinine ratioOrdered By: Marlon Damon on 01-12-2025 Urea nitrogen/Creatinine [Mass ratio] 13.7 mg/mg - [facility] Basic Metabolic Profile (BMP )on 01-12-2025 BUN/CRE 13.7 RATIO Normal - [facility] Comment on above: Performed By: #### L 501.9520, L501.5200, L100.0100, L500.2500 #### [facility] [address] [place], [address] Calcium [Mass/Vol] 8.4 mg/dL Normal 7.6-11.0 [facility] Comment on above: Performed By: #### L 501.9520, L501.5200, L100.0100, L500.2500 #### [facility] [address] [place], [address] Chloride [Moles/Vol] 107 mmol/L Normal 98-108 [facility] Comment on above: Performed By: #### L 501.9520, L501.5200, L100.0100, L500.2500 #### [facility] [address] [place], [address] CO2 [Moles/Vol] 20.5 mmol/L Low 21.0-32.0 [facility] Comment on above: Performed By: #### L 501.9520, L501.5200, L100.0100, L500.2500 #### [facility] [address] [place], [address] Creatinine [Mass/Vol] 0.58 mg/dL Low 0.70-1.20 [facility] Comment on above: Performed By: #### L 501.9520, L501.5200, L100.0100, L500.2500 #### [facility] [address] [place], [address] ECRCL 212.74 ml/min Normal 50-250 [facility] Comment on above: Performed By: #### L 501.9520, L501.5200, L100.0100, L500.2500 #### [facility] [address] [place], [address] GAP 10 Normal 5-15 [facility] Comment on above: Performed By: #### L 501.9520, L501.5200, L100.0100, L500.2500 #### [facility] [address] [place], [address] GFR/1.73 sq M.predicted among non-blacks MDRD (S/P/Bld) [Vol rate/Area] 122 mL/min/{1.73_m2} Normal >60 [facility] Comment on above: Result Comment: mL/m in/1.73m2 CKD-EPI Creatinine Equation (2020) Performed By: #### L 501.9520, L501.5200, L100.0100, L500.2500 #### [facility] [address] [place], [address] Glucose [Mass/Vol] 117 mg/dL High 70-99 [facility] Comment on above: Performed By: #### L 501.9520, L501.5200, L100.0100, L500.2500 #### [facility] [address] [place], [address] Potassium [Moles/Vol] 4.0 mmol/L Normal 3.3-5.1 [facility] Comment on above: Performed By: #### L 501.9520, L501.5200, L100.0100, L500.2500 #### [facility] [address] [place], [address] Sodium [Moles/Vol] 137 mmol/L Normal 133-145 [facility] Comment on above: Performed By: #### L 501.9520, L501.5200, L100.0100, L500.2500 #### [facility] [address] [place], [address] Urea nitrogen [Mass/Vol] 8 mg/dL Normal 4-19 [facility] Comment on above: Performed By: #### L 501.9520, L501.5200, L100.0100, L500.2500 #### [facility] [address] [place], [address] Basophil percentageOrdered B y: Marlon Damon on 01-12-2025 Basophils/100 WBC (Bld) 0.2 % Normal 0-1 [facility] Comment on above: Performed By: #### L 501.9520, L501.5200, L100.0100, L500.2500 #### [facility] [address] [place], [address] CBC W/Diff, Automatedon Absolute Lymph 2.31 X10 3/uL Normal 0.83-4.51 [facility] Comment on above: Performed By: #### L 501.9520, L501.5200, L100.0100, L500.2500 #### [facility] [address] [place], [address] Absolute Neut 5.6 X10 3/uL Normal 2.0-7.7 [facility] Comment on above: Performed By: #### L 501.9520, L501.5200, L100.0100, L500.2500 #### [facility] [address] [place], [address] IG% 0.200 Normal 0.0-0.9 [facility] Comment on above: Result Comment: IG% - Immature Granulocytes (promyelocytes, myelocytes and metamyelocytes) > 1% indicates that a LEFT SHIFT is Present. Performed By: #### L 501.9520, L501.5200, L100.0100, L500.2500 #### [facility] [address] [place], [address] Lymphocytes/100 WBC (Bld) 26.3 % Normal 19-41 [facility] Comment on above: Performed By: #### L 501.9520, L501.5200, L100.0100, L500.2500 #### [facility] [address] [place], [address] Nucleated RBC (Bld) [#/Vol] 0 10*3/uL Normal 0-5 [facility] Comment on above: Performed By: #### L 501.9520, L501.5200, L100.0100, L500.2500 #### [facility] [address] [place], [address] RDW SD 44.6 fl High 35.1-43.9 [facility] Comment on above: Performed By: #### L 501.9520, L501.5200, L100.0100, L500.2500 #### [facility] [address] [place], [address] Carbon dioxide, total [Moles /volume] in Central venous bloodOrdered By: Marlon Damon on 01-12-2025 CO2 [Moles/Vol] 20.5 mmol/L Low 21.0-32.0 [facility] Chloride assayOrdered By: Tequila Damon on 01-12-2025 Chloride [Moles/Vol] 107 mmol/L 98-108 [facility] Consultation - Cardiologyon 01-12-2025 Consultation - Cardiology [facility] Medical Records Department [address] [facility] [place] [address] Consultation - Cardiology 01/12/25 0958 MR#: [id number] Acct: [id number] Name: AMBIKA BROWN Rep #: [id number] : 1990 34 From: Cesar Sanchez MD PCP: Dr. Mega Weeks MD Status:ADM IN Location: [place] [address]-1 Assessment Plan Assessment/Plan (1) Ventricular tachycardia: PLAN: Patient presented to emergency department 01/21/2025 with progressive multiple episodes of near syncope over the last 48 to 72 hours. While in the emergency department she had the same symptoms while a twelve-lead ECG was being performed in short 6 beat runs of ventricular tachycardia were captured. This exactly matched her symptoms she had been having over the last 72 hours. The patient does have a prior history of SVT and has been previously evaluated by Dr. Rock at [facility]. Echo is pending at this time. (2) Near syncope: PLAN: Patient did not actually pass out completely but felt like she was nearly passing out. She has had prior history of SVT but this was definitely different than her routine near syncope that she is learned to manage at home. Will attempt to get her transferred to the [facility] for further evaluation. Currently she is stable on IV amiodarone on telemetry. PLAN: Plan 1. Will continue IV amiodarone for the time being. 2. Will arrange for transfer to [facility] in the care of Dr. Rock 3. Echo is pending at this time. 4. I did discuss the plans with the nursing staff as well as the hospitalist team. HPI Consult Data Date of Consult: 01/12/25 HPI Narrative Reason for Consultation: Ventricular tachycardia with near syncope. HPI Narrative: AMBIKA BROWN, is a 34 F who presents with a 2-3-day history of increasing tachypalpitations with near syncope. Yesterday prior to admission she nearly passed out 3 times trying to take a shower. She then was driving and developed near syncope and was able to navigate her car to the hospital. Upon arrival the patient had recurring symptoms while her ECG was being done which documented multiple 6 beat runs of ventricular tachycardia. There was also a mention from the emergency department there may have been atrial fibrillation noted. However cannot find an ECG or telemetry strip consistent with atrial fibs. The patient was placed on IV amiodarone in the emergency department and since the loading dose of Amio she has had no recurrence of the ventricular tachycardia. Patient does have a history of hypothyroidism on replacement therapy. Thyroid studies in the emergency department within normal limits. Urine screen for illicit medications was negative. I do not find a urine or serum test. Patient did have a negative urine test September 2024. The patient has a history of nonsustained supraventricular tachycardia in the past with a negative EP study at [facility] with Dr. Arredondo. The patient also had a loop recorder at 1 point in time which is no longer functional. The patient's ECG from January 11 at 1400 hrs. showed 2 sequential 6 beat runs of ventricular tachycardia during the timing of the twelve-lead ECG. She was in sinus tach at that point in time and subsequent ECG showed normal sinus rhythm with nonspecific T wave changes. The patient is currently resting comfortably in the bed. [facility] Medical History Hypothyroidism Pancreatitis Cholecystectomy planned Implantable loop recorder present SVT (supraventricular tachycardia) History of lupus anticoagulant disorder History of asthma Insulin resistance Migraines Home Medications ???Medication ???Instructions ???Recorded ???Last Taken ???Type levothyroxine 50 mcg tablet 50 mcg PO DAILY thyroid 12/05/22 0 04/10/23 History (Synthroid) ascorbic acid (vitamin C) 500 mg 500 mg PO DAILY suppliment 4 Unknown History tablet aspirin 81 mg chewable tablet 81 mg PO DAILY preventative Unknown History cholecalciferol (vitamin D3) 25 25 mcg PO DAILY suppliment 4 Unknown History mcg (1,000 unit) tablet gabapentin 100 mg capsule 100 mg PO DAILY PRN pain 09/17/24 Unknown History lisinopril 20 mg tablet 20 mg PO BID blood pressure Unknown History ondansetron HCl 8 mg tablet 8 mg PO Q12H PRN nausea and Unknown History vomiting albuterol sulfate 90 mcg/actuation 1 inh inhalation ONCE PRN Unknown History aerosol inhaler shortness of breath or wheezing amlodipine 5 mg tablet (Norvasc) 5 mg PO QDAY blood pressure #90 Unknown Rx tabs metoprolol tartrate 25 mg tablet 25 mg PO BID heart #180 tabs 11/18 Unknown Rx Allergy/AdvReac Type Severity Reaction Statu (more content not included)... Normal [facility] Echocardiogram study reportO rdered By: John Conrad on 01-12-2025 Study report [facility] Cardiovascular Services [address] [place] [address] Echo Complete W/ Contrast 01/12/25 1516 MR#: [id number] Acct: [id number] Name: AMBIKA BROWN Rep #:[id number] : 1990 34 From: John William Attending Dr: Dr. Riley Haque, DO Status: ADM IN Ordering Dr: Marlon Damon MD Da te: 01/11/25 Location: [facility] Sex: F C Admitted: 01/11/25 Reason For Study Reason For Study: ARRHYTHMIA Procedure This was a 2D Doppler, Color Flow transthoracic echocardiogram. The study was technically difficult. Contrast injection was performed. Exam performed portable in patient room. Left Ventricle Normal LV size. The left ventricular ejection fraction is 50 %. Stage 2 diastolic dysfunction. There is mild global hypokinesis of the left ventricle. Right Ventricle Normal RV size. Normal systolic function. Atria Normal left atrium. Normal right atrium. Mitral Valve Normal mitral valve. Tricuspid Valve Normal tricuspid valve. Aortic Valve Normal aortic valve. Pulmonic Valve Normal pulmonic valve. Great Vessels Normal aortic root. The pulmonary artery is normal size. Inferior vena cava collapse with respiration. Pericardium/Pleural No pericardial effusion. Medication Diluted definity 1.5ml given slow IV push to enhance endocardial definition. MMode/2D Measurements & Calculations LVIDd: 5.8 cm IVSd: 0.96 cm Ao root diam: 3.2 cm LVIDs: 4.7 cm LVPWd: 0.61 cm RVDd: 4.2 cm FS: 18.2 % _ LAV(MOD-bp): 65.1 ml LVAd ap4: 50.0 cm2 SV(MOD-sp4): 103.1 ml LAV(MOD-bp) Indexed: 25.9 ml/m2 LVLd ap4: 9.6 cm SI(MOD-sp4): 41.0 ml/m2 LAV(MOD-sp2): 50.6 ml EDV(MOD-sp4): 211.4 ml LAV(MOD-sp4): 66.8 ml EDV(sp4-el): 222.0 ml LVAs ap4: 31.5 cm2 LVLs ap4: 7.7 cm ESV(MOD-sp4): 108.4 ml ESV(sp4-el): 109.3 ml EF(MOD-sp4): 48.8 % EF(sp4-el): 50.8 % SV(sp4-): 112.7 ml LA A4 area: 22.4 cm2 LA dimension(2D): 4.1 cm RA A4 area: 16.1 cm2 Time Measurements MV dec time: 0.19 sec Doppler Measurements & Calculations MV E max juanita: 102.9 cm/sec Lat Peak E' Juanita: 16.6 cm/sec Med Peak E' Juanita: 13.7 cm/sec MV A max juanita: 74.3 cm/sec E/E' lat: 6.2 E/E' med: 7.5 MV E/A: 1.4 MV V2 max: 124.2 cm/sec MV P1/2t max juanita: 125.1 cm/sec Ao V2 max: 130.8 cm/sec MV max P.2 mmHg MV P1/2t: 60.5 msec Ao max P.8 mmHg MV V2 mean: 61.0 cm/sec MV dec slope: 605.4 cm/sec2 MV mean P.8 mmHg MVA(P1/2t): 3.6 cm2 MV V2 VTI: 32.7 cm LV V1 max: 110.4 cm/sec PA V2 max: 91.8 cm/sec LV V1 max P.9 mmHg PA V2 mean: 65.0 cm/sec ECHO/Echo Complete W/ Contrast Interpretation Summary Normal LV size. The left ventricular ejection fraction is 50 %. Stage 2 diastolic dysfunction. There is mild global hypokinesis of the left ventricle. Contrast injection was performed. Ordering Physician: Marlon Damon Performed By: Steve Ross RCS 01/12/251748 Date _ John Conrad MD CC: Dr. Mega Weeks MD; Dr. Riley Haque DO; Dr. Marlon Damon MD ~ Date Dictated: 01/12/25 1516 Date Transcribed: 01/12/251748 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: Signed [facility] Work Phone: Eosinophil percentageOrdered By: Marlon Damon on 01-12-2025 Eosinophils/100 WBC (Bld) 3.3 % Normal 0-5 [facility] Comment on above: Performed By: #### L 501.9520, L501.5200, L100.0100, L500.2500 #### [facility] [address] [place], [address] Erythrocyte distribution wid th ratioOrdered By: Marlon Damon on 01-12-2025 Erythrocyte distribution width (RBC) [Ratio] 15.5 % High 11.6-14.6 [facility] Comment on above: Performed By: #### L 501.9520, L501.5200, L100.0100, L500.2500 #### [facility] [address] [place], [address] Erythrocyte distribution wid th standard deviationOrdered By: Marlon Damon on 01-12-2025 Erythrocyte distribution width (RBC) [Ratio] 44.6 fl High 35.1-43.9 [facility] Glomerular filtration rate ( GFR) estimation/1.73 sq m using serum, plasma, or whole bOrdered By: Marlon Damon on 01-12-2025 GFR/1.73 sq M.predicted among non-blacks MDRD (S/P/Bld) [Vol rate/Area] 122 mL/min/{1.73_m2} >60 [facility] Comment on above: mL/min/1.73m2 CKD-EP I Creatinine Equation (2020) Hemoglobin measurementOrdere d By: Marlon Damon on 01-12-2025 Hemoglobin (Bld) [Mass/Vol] 11.7 g/dL Low 12.0-15.0 [facility] Comment on above: Performed By: #### L 501.9520, L501.5200, L100.0100, L500.2500 #### [facility] [address] [place], [address] Immature granulocytes/100 WB C Auto (Bld)Ordered By: Marlon Damon on 01-12-2025 Immature granulocytes/100 WBC (Bld) 0.200 % 0.0-0.9 [facility] Comment on above: IG% - Immature Granu locytes (promyelocytes, myelocytes and metamyelocytes) > 1% indicates that a LEFT SHIFT is Present. MCV (mean corpuscular volume ) determinationOrdered By: Marlon Damon on 01-12-2025 MCV (RBC) [Entitic vol] 79.6 fL Low 81-99 [facility] Comment on above: Performed By: #### L 501.9520, L501.5200, L100.0100, L500.2500 #### [facility] [address] [place], [place], [id number] Mean corpuscular hemoglobin (MCH) determinationOrdered By: Marlon Damon on 01-12-2025 MCH (RBC) [Entitic mass] 25.2 pg Low 27.0-32.0 [facility] Comment on above: Performed By: #### L 501.9520, L501.5200, L100.0100, L500.2500 #### [facility] [address] [place], [id number] Mean corpuscular hemoglobin concentration (MCHC) determinationOrdered By: Marlon Damon on 01-12-2025 MCHC (RBC) [Mass/Vol] 31.6 g/dL Low 32-36 [facility] Comment on above: Performed By: #### L 501.9520, L501.5200, L100.0100, L500.2500 #### [facility] [address] [place], [place], [id number] Mean platelet volume determi nationOrdered By: Marlon Damon on 01-12-2025 Platelet mean volume (Bld) [Entitic vol] 12.1 fL High 6.2-12.0 [facility] Comment on above: Performed By: #### L 501.9520, L501.5200, L100.0100, L500.2500 #### [facility] [address] [place], [address] Monocyte percentageOrdered B y: Marlon Damon on 01-12-2025 Monocytes/100 WBC (Bld) 6.5 % Normal 0-10 [facility] Comment on above: Performed By: #### L 501.9520, L501.5200, L100.0100, L500.2500 #### [facility] [address] [place], [address] Neutrophil percentageOrdered By: Marlon Damon on 01-12-2025 Neutrophils/100 WBC (Bld) 63.5 % Normal 47-70 [facility] Comment on above: Performed By: #### L 501.9520, L501.5200, L100.0100, L500.2500 #### [facility] [address] [place], [place], [id number] Nucleated red blood cell per centageOrdered By: Marlon Damon on 01-12-2025 Nucleated RBC/100 WBC (Bld) [Ratio] 0 % 0-5 [facility] Platelet countOrdered By: Tequila Damon on 01-12-2025 Platelets (Bld) [#/Vol] 204 10*3/uL Normal 150-450 [facility] Comment on above: Performed By: #### L 501.9520, L501.5200, L100.0100, L500.2500 #### [facility] [address] [place], [address] Potassium measurement (mass/ volume)Ordered By: Marlon Damon on 01-12-2025 Potassium (Unsp spec) [Mass/Vol] 4.0 mmol/L 3.3-5.1 [facility] Serum creatinine measurement (mass/volume)Ordered By: Marlon Damon on 01-12-2025 Creatinine [Mass/Vol] 0.58 mg/dL Low 0.70-1.20 [facility] Serum glucose measurement (m ass/volume)Ordered By: Marlon Damon on 01-12-2025 Glucose [Mass/Vol] 117 mg/dL High 70-99 [facility] Serum or plasma calcium prieto urement (mass/volume)Ordered By: Marlon Damon on 01-12-2025 Calcium [Mass/Vol] 8.4 mg/dL 7.6-11.0 [facility] Serum or plasma urea nitroge n measurement (mass/volume)Ordered By: Marlon Damon on 01-12-2025 Urea nitrogen [Mass/Vol] 8 mg/dL 4-19 [facility] Sodium levelOrdered By: Chad Damon on 01-12-2025 Sodium [Moles/Vol] 137 mmol/L 133-145 [facility] White blood cell (WBC) count Ordered By: Marlon Damon on 01-12-2025 WBC (Bld) [#/Vol] 8.8 10*3/uL Normal 4.4-11.0 [facility] Comment on above: Performed By: #### L 501.9520, L501.5200, L100.0100, L500.2500 #### [facility] [address] [place], [address] 12 Lead EKGon 01-11-2025 12 Lead EKG [facility] Cardiovascular Services [address] [place] [address] 12 Lead EKG 01/11/25 1356 MR#: [id number] Acct: [id number] Name: AMBIKA BROWN Rep #: [id number] : 1990 34 From: Cesar Sanchez MD Attending Dr: Dr. Cesar Sanchez MD Status: TRENTON Rodriguez IN Ordering Dr: Silvano Perez DO Date: 01/11/25 Location: [facility] Sex: F C Admitted: 01/11/25 Test Reason : HIGH HR Blood Pressure : */* mmHG Vent. Rate : 154 BPM Atrial Rate : 131 BPM P-R Int : 152 ms QRS Dur : 80 ms QT Int : 304 ms P-R-T Axes : 69 16 73 degrees QTcB Int : 486 ms Critical Test Result: High HR , Arrhythmia Sinus tachycardia with frequent and consecutive Premature ventricular complexes Abnormal ECG non sustained recurrent vtach Confirmed by Cesar Sanchez ([id number]), general expeditor RODY HENDRICKS ([id number]) on 01/16/2025 11:58:11 AM Referred By: Confirmed By: Cesar Sanchez 01/16/25 115 Date Cesar Sanchez MD CC: Dr. Mega Weeks MD; Dr. Cesar Sanchez MD; Dr. Silvano Perez DO Signed Normal [facility] 12 Lead EKG [facility] Cardiovascular Services [address] [place] [address] 12 Lead EKG 01/11/25 1424 MR#: [id number] Acct: [id number] Name: AMBIKA BROWN Rep #: [id number] : 1990 34 From: Cesar Sanchez MD Attending Dr: Dr. Cesar Sanchez MD Status: DI S IN Ordering Dr: Silvano Perez DO Date: 01/11/25 Location: [facility] Sex: F C Admitted: 01/11/25 Test Reason : PALPITATIONS Blood Pressure : */* mmHG Vent. Rate : 93 BPM Atrial Rate : 93 BPM P-R Int : 180 ms QRS Dur : 86 ms QT Int : 356 ms P-R-T Axes : 49 15 84 degrees QTcB Int : 442 ms Normal sinus rhythm Nonspecific T wave abnormality Abnormal ECG Confirmed by Cesar Sanchez ([id number]), general expeditor RODY HENDRICKS ([id number]) on 01/16/2025 11:57:44 AM Referred By: Confirmed By: Cesar Sanchez 01/16/25 115 Date Cesar Sanchez MD CC: Dr. Mega Weeks MD; Dr. Cesar Sanchez MD; Dr. Silvano Perez DO Signed Normal [facility] Amphetamine detection with 1 000 ng/mL as cutoffOrdered By: Silvano Perez on 01-11-2025 Amphetamines Screen method >1000 ng/mL Ql (U) Negative < 200 ng/mL [facility] Bilirubin Test strip Ql (U)O rdered By: Silvano Perez on 01-11-2025 Bilirubin Ql (U) Negative Negative [facility] Bilirubin, totalOrdered By: Silvano Perez on 01-11-2025 Bilirubin [Mass/Vol] 0.31 mg/dL 0.00-1.30 [facility] CBC W/Diff, Automatedon Absolute Lymph 3.05 X10 3/uL Normal 0.83-4.51 [facility] Comment on above: Performed By: #### L 501.9520, L500.4050, L501.92645, L100.0100, L503.7505, L506.0400, L505.5000 #### [facility] [address] [place], [address] Absolute Neut 9.0 X10 3/uL High 2.0-7.7 [facility] Comment on above: Performed By: #### L 501.9520, L500.4050, L501.72687, L100.0100, L503.7505, L506.0400, L505.5000 #### [facility] [address] [place], [address] Basophils/100 WBC (Bld) 0.4 % Normal 0-1 [facility] Comment on above: Performed By: #### L 501.9520, L500.4050, L501.52845, L100.0100, L503.7505, L506.0400, L505.5000 #### [facility] [address] [place], [address] Eosinophils/100 WBC (Bld) 2.1 % Normal 0-5 [facility] Comment on above: Performed By: #### L 501.9520, L500.4050, L501.51640, L100.0100, L503.7505, L506.0400, L505.5000 #### [facility] [address] [place], [address] Erythrocyte distribution width (RBC) [Ratio] 15.4 % High 11.6-14.6 [facility] Comment on above: Performed By: #### L 501.9520, L500.4050, L501.26765, L100.0100, L503.7505, L506.0400, L505.5000 #### [facility] [address] [place], [address] Hematocrit (Bld) [Volume fraction] 41.2 % Normal 37-47 [facility] Comment on above: Performed By: #### L 501.9520, L500.4050, L501.94703, L100.0100, L503.7505, L506.0400, L505.5000 #### [facility] [address] [place], [address] Hemoglobin (Bld) [Mass/Vol] 13.5 g/dL Normal 12.0-15.0 [facility] Comment on above: Performed By: #### L 501.9520, L500.4050, L501.64634, L100.0100, L503.7505, L506.0400, L505.5000 #### [facility] [address] [place], [address] IG% 0.300 Normal 0.0-0.9 [facility] Comment on above: Result Comment: IG% - Immature Granulocytes (promyelocytes, myelocytes and metamyelocytes) > 1% indicates that a LEFT SHIFT is Present. Performed By: #### L 501.9520, L500.4050, L501.95758, L100.0100, L503.7505, L506.0400, L505.5000 #### [facility] [address] [place], [address] Lymphocytes/100 WBC (Bld) 23.2 % Normal 19-41 [facility] Comment on above: Performed By: #### L 501.9520, L500.4050, L501.77322, L100.0100, L503.7505, L506.0400, L505.5000 #### [facility] [address] [place], [address] MCH (RBC) [Entitic mass] 25.5 pg Low 27.0-32.0 [facility] Comment on above: Performed By: #### L 501.9520, L500.4050, L501.21594, L100.0100, L503.7505, L506.0400, L505.5000 #### [facility] [address] [place], [address] MCHC (RBC) [Mass/Vol] 32.8 g/dL Normal 32-36 [facility] Comment on above: Performed By: #### L 501.9520, L500.4050, L501.27027, L100.0100, L503.7505, L506.0400, L505.5000 #### [facility] [address] [place], [address] MCV (RBC) [Entitic vol] 77.7 fL Low 81-99 [facility] Comment on above: Performed By: #### L 501.9520, L500.4050, L501.48013, L100.0100, L503.7505, L506.0400, L505.5000 #### [facility] [address] [place], [address] Monocytes/100 WBC (Bld) 5.5 % Normal 0-10 [facility] Comment on above: Performed By: #### L 501.9520, L500.4050, L501.63453, L100.0100, L503.7505, L506.0400, L505.5000 #### [facility] [address] [place], [address] Neutrophils/100 WBC (Bld) 68.5 % Normal 47-70 [facility] Comment on above: Performed By: #### L 501.9520, L500.4050, L501.68028, L100.0100, L503.7505, L506.0400, L505.5000 #### [facility] [address] [place], [address] Nucleated RBC (Bld) [#/Vol] 0 10*3/uL Normal 0-5 [facility] Comment on above: Performed By: #### L 501.9520, L500.4050, L501.24303, L100.0100, L503.7505, L506.0400, L505.5000 #### [facility] [address] [place], [address] Platelet mean volume (Bld) [Entitic vol] 11.2 fL Normal 6.2-12.0 [facility] Comment on above: Performed By: #### L 501.9520, L500.4050, L501.34972, L100.0100, L503.7505, L506.0400, L505.5000 #### [facility] [address] [place], [address] Platelets (Bld) [#/Vol] 262 10*3/uL Normal 150-450 [facility] Comment on above: Performed By: #### L 501.9520, L500.4050, L501.97361, L100.0100, L503.7505, L506.0400, L505.5000 #### [facility] [address] [place], [address] RBC (Bld) [#/Vol] 5.30 10*6/uL Normal 4.2-5.4 [facility] Comment on above: Performed By: #### L 501.9520, L500.4050, L501.15177, L100.0100, L503.7505, L506.0400, L505.5000 #### [facility] [address] [place], [address] RDW SD 43.7 fl Normal 35.1-43.9 [facility] Comment on above: Performed By: #### L 501.9520, L500.4050, L501.67139, L100.0100, L503.7505, L506.0400, L505.5000 #### [facility] [address] [place], [address] WBC (Bld) [#/Vol] 13.1 10*3/uL High 4.4-11.0 [facility] Comment on above: Performed By: #### L 501.9520, L500.4050, L501.40387, L100.0100, L503.7505, L506.0400, L505.5000 #### [facility] [address] [place], [address] Chest 1 View (Portable)on Chest 1 View (Portable) [facility] Imaging Services [address] [place] [address] Chest 1 View (Portable) MR#: [id number] Acct: [id number] Name: AMBIKA BROWN Rep #: [id number] : 1990 F 34 From: Juanjo Earl MD PCP: Dr. Mega Weeks MD Status: REG ER Study: Chest 1 View (Portable) Date of Exam: 01/11/25 Exam# [id number] Ordering Dr: Silvano Perez DO PROCEDURE: CHEST 1 VIEW (PORTABLE) 01/11/2025 REASON FOR EXAM: PALPITATIONS TECHNIQUE: Frontal view of the chest. COMPARISON: 12/03/2024 FINDINGS: Hardware: None Heart: The heart size is normal. Lungs: The lungs are clear. Bones: The bones are unremarkable. Other: RAD/Chest 1 View (Portable) IMPRESSION: No Acute Findings. Reading Location: [facility] CC: Dr. Mega Weeks MD; Dr. Silvano Perez DO 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: Signed Normal [facility] Comprehensive Metabolic Prof ilon 01-11-2025 Albumin [Mass/Vol] 4.0 g/dL Normal 3.5-5.0 [facility] Comment on above: Performed By: #### L 501.9520, L500.4050, L501.70113, L100.0100, L503.7505, L506.0400, L505.5000 #### [facility] [address] [place], [address] Albumin/Globulin [Mass ratio] 1.1 {ratio} Normal 0.9-2.4 [facility] Comment on above: Performed By: #### L 501.9520, L500.4050, L501.86190, L100.0100, L503.7505, L506.0400, L505.5000 #### [facility] [address] [place], [address] ALK PHOS 114 U/L High 35-104 [facility] Comment on above: Performed By: #### L 501.9520, L500.4050, L501.53116, L100.0100, L503.7505, L506.0400, L505.5000 #### [facility] [address] [place], [address] ALT [Catalytic activity/Vol] 25 U/L Normal <=34 [facility] Comment on above: Performed By: #### L 501.9520, L500.4050, L501.16935, L100.0100, L503.7505, L506.0400, L505.5000 #### [facility] [address] [place], [address] AST [Catalytic activity/Vol] 25 U/L Normal <=31 [facility] Comment on above: Performed By: #### L 501.9520, L500.4050, L501.44176, L100.0100, L503.7505, L506.0400, L505.5000 #### [facility] [address] [place], [address] Bilirubin [Mass/Vol] 0.31 mg/dL Normal 0.00-1.30 [facility] Comment on above: Performed By: #### L 501.9520, L500.4050, L501.12568, L100.0100, L503.7505, L506.0400, L505.5000 #### [facility] [address] [place], [address] BUN/CRE 16.6 RATIO Normal 10-20 [facility] Comment on above: Performed By: #### L 501.9520, L500.4050, L501.25564, L100.0100, L503.7505, L506.0400, L505.5000 #### [facility] [address] [place], [address] Calcium [Mass/Vol] 8.9 mg/dL Normal 7.6-11.0 [facility] Comment on above: Performed By: #### L 501.9520, L500.4050, L501.39082, L100.0100, L503.7505, L506.0400, L505.5000 #### [facility] [address] [place], [address] Chloride [Moles/Vol] 103 mmol/L Normal 98-108 [facility] Comment on above: Performed By: #### L 501.9520, L500.4050, L501.63900, L100.0100, L503.7505, L506.0400, L505.5000 #### [facility] [address] [place], [address] CO2 [Moles/Vol] 21.6 mmol/L Normal 21.0-32.0 [facility] Comment on above: Performed By: #### L 501.9520, L500.4050, L501.68616, L100.0100, L503.7505, L506.0400, L505.5000 #### [facility] [address] [place], [address] Creatinine [Mass/Vol] 0.76 mg/dL Normal 0.70-1.20 [facility] Comment on above: Performed By: #### L 501.9520, L500.4050, L501.85418, L100.0100, L503.7505, L506.0400, L505.5000 #### [facility] [address] [place], [address] ECRCL 162.75 ml/min Normal 50-250 [facility] Comment on above: Performed By: #### L 501.9520, L500.4050, L501.97102, L100.0100, L503.7505, L506.0400, L505.5000 #### [facility] [address] [place], [address] GAP 13 Normal 5-15 [facility] Comment on above: Performed By: #### L 501.9520, L500.4050, L501.50150, L100.0100, L503.7505, L506.0400, L505.5000 #### [facility] [address] [place], [address] GFR/1.73 sq M.predicted among non-blacks MDRD (S/P/Bld) [Vol rate/Area] 107 mL/min/{1.73_m2} Normal >60 [facility] Comment on above: Result Comment: mL/m in/1.73m2 CKD-EPI Creatinine Equation (2020) Performed By: #### L 501.9520, L500.4050, L501.54291, L100.0100, L503.7505, L506.0400, L505.5000 #### [facility] [address] [place], [address] Globulin (S) [Mass/Vol] 3.7 g/dL Normal 2.2-4.2 [facility] Comment on above: Performed By: #### L 501.9520, L500.4050, L501.86304, L100.0100, L503.7505, L506.0400, L505.5000 #### [facility] [address] [place], [address] Glucose [Mass/Vol] 155 mg/dL High 70-99 [facility] Comment on above: Performed By: #### L 501.9520, L500.4050, L501.01939, L100.0100, L503.7505, L506.0400, L505.5000 #### [facility] [address] [place], [address] Potassium [Moles/Vol] 3.6 mmol/L Normal 3.3-5.1 [facility] Comment on above: Performed By: #### L 501.9520, L500.4050, L501.68152, L100.0100, L503.7505, L506.0400, L505.5000 #### [facility] [address] [place], [address] Sodium [Moles/Vol] 137 mmol/L Normal 133-145 [facility] Comment on above: Performed By: #### L 501.9520, L500.4050, L501.97519, L100.0100, L503.7505, L506.0400, L505.5000 #### [facility] [address] [place], [address] T PROT 7.7 g/dL Normal 5.9-8.4 [facility] Comment on above: Performed By: #### L 501.9520, L500.4050, L501.67075, L100.0100, L503.7505, L506.0400, L505.5000 #### [facility] [address] [place], [address] Urea nitrogen [Mass/Vol] 13 mg/dL Normal 4-19 [facility] Comment on above: Performed By: #### L 501.9520, L500.4050, L501.46095, L100.0100, L503.7505, L506.0400, L505.5000 #### [facility] [address] [place], [address] Consultation - Cardiologyon 01-11-2025 Consultation - Cardiology [facility] Medical Records Department [address] [place] [address] Consultation - Cardiology 01/11/25 1658 MR#: [id number] Acct: [id number] Name: AMBIKA BROWN Rep #: [id number] : 1990 34 From: Shayla Rios MD PCP: Dr. Mega Weeks MD Status:ADM IN Location: [place] [address] Assessment Plan Assessment/Plan (1) Near syncope: (2) Palpitations: (3) SVT (supraventricular tachycardia): PLAN: 34-year-old patient Presented to ED at [facility] complaining of symptoms of chest pain and palpitation. She had symptoms of mild dizziness with lightheadedness. Evidently patient has longstanding history of arrhythmia and has been seen and followed by EP at [facility] , with the patient evaluated previously with EP study which is negative with no significant arrhythmia noted. She also has echocardiographic evaluation which showed LV function within normal and has been on treatment with metoprolol and lisinopril in addition to low-dose aspirin. Other medical problem include history of hypertension prior history of COVID-19, bronchial asthma. Cardiac exam essentially normal Cardiac care plan; Patient did share a monitor from her watch which showed irregular heart rhythm possible atrial fibrillation. Also she has implantable loop recorder which has been more than 4 years To explant and possible reimplant the loop recorder for monitoring of cardiac rhythm. Patient has recurrent episodes of nonsustained V. tach Check electrolytes magnesium potassium Started on amiodarone and remains in sinus with infrequent PVC Review of the current lab cardiac biomarker with high sensitive troponins and BNP within normal. Will reevaluate by echocardiogram Patient has been seen and followed here by primary promotions producer at [facility] Dr. Conrad Will continue to monitor and follow-up in progressive care unit HPI Consult Data Date of Consult: 01/11/25 HPI Narrative Reason for Consultation: Palpitation/recurrent episodes of nonsustained V. tach HPI Narrative: AMBIKA BROWN, is a 34 F who presents [facility] Medical History Hypothyroidism Pancreatitis Cholecystectomy planned Implantable loop recorder present SVT (supraventricular tachycardia) History of lupus anticoagulant disorder History of asthma Insulin resistance Migraines Home Medications ???Medication ???Instructions ???Recorded ???Last Taken ???Type levothyroxine 50 mcg tablet 50 mcg PO DAILY thyroid 12/05/22 0 04/10/23 History (Synthroid) ascorbic acid (vitamin C) 500 mg 500 mg PO DAILY suppliment 4 Unknown History tablet aspirin 81 mg chewable tablet 81 mg PO DAILY preventative Unknown History cholecalciferol (vitamin D3) 25 25 mcg PO DAILY suppliment 4 Unknown History mcg (1,000 unit) tablet gabapentin 100 mg capsule 100 mg PO DAILY PRN pain 09/17/24 Unknown History lisinopril 20 mg tablet 20 mg PO BID blood pressure Unknown History ondansetron HCl 8 mg tablet 8 mg PO Q12H PRN nausea and Unknown History vomiting albuterol sulfate 90 mcg/actuation 1 inh inhalation ONCE PRN Unknown History aerosol inhaler shortness of breath or wheezing amlodipine 5 mg tablet (Norvasc) 5 mg PO QDAY blood pressure #90 Unknown Rx tabs metoprolol tartrate 25 mg tablet 25 mg PO BID heart #180 tabs 11/18 Unknown Rx Allergy/AdvReac Type Severity Reaction Status Date / Time diphenhydramine (From Allergy Mild Chest Verified 01/11/25 13:55 Benadryl) tightness prochlorperazine (From Allergy Other Verified 01/11/25 13:55 Compazine) Family History Mother Cancer Thyroid disorder Father Heart disease Early 50s Surgical History History of section History of electrophysiologic study (02/13/22) History of tonsillectomy History of cholecystectomy Social History (Updated 01/11/25 @ 16:38 by Mago Hilton) household members: spouse housing: house Smoking Status: Never smoker alcohol intake: never substance use type: does not use caffeine: Yes Type: coffee Number of servings: 2 Physical Exam Cardio Cardio Narrative: Patient seen and evaluated in the ED Complaining of palpitation with 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 tach Cardiac exam S1-S2 regular No systolic or diastolic murmur. Chest exam clear to auscultation bilateral. Examination lower extremity no lower extremity edema noted. Risk Stratification Risk Stratification Applicable: No Objective Data Vital Signs: Vital Signs Temp Pulse Resp BP Pulse Ox O2 (more content not included)... Normal [facility] Echo Complete W/ Contraston 01-11-2025 Echo Complete W/ Contrast [facility] Cardiovascular Services [address] [place] [address] Echo Complete W/ Contrast 01/12/25 1516 MR#: [id number] Acct: [id number] Name: AMBIKA BROWN Rep #: [id number] : 1990 34 From: John Conrad MD Attending Dr: Dr. Riley Hauqe, DO Status: ADM IN Ordering Dr: Marlon Damon MD Date: 01/11/25 Location: U Sex: F C Admitted: 01/11/25 Reason For Study Reason For Study: ARRHYTHMIA Procedure This was a 2D Doppler, Color Flow transthoracic echocardiogram. The study was technically difficult. Contrast injection was performed. Exam performed portable in patient room. Left Ventricle Normal LV size. The left ventricular ejection fraction is 50 %. Stage 2 diastolic dysfunction. There is mild global hypokinesis of the left ventricle. Right Ventricle Normal RV size. Normal systolic function. Atria Normal left atrium. Normal right atrium. Mitral Valve Normal mitral valve. Tricuspid Valve Normal tricuspid valve. Aortic Valve Normal aortic valve. Pulmonic Valve Normal pulmonic valve. Great Vessels Normal aortic root. The pulmonary artery is normal size. Inferior vena cava collapse with respiration. Pericardium/Pleural No pericardial effusion. Medication Diluted definity 1.5ml given slow IV push to enhance endocardial definition. MMode/2D Measurements Calculations LVIDd: 5.8 cm IVSd: 0.96 cm Ao root diam: 3.2 cm LVIDs: 4.7 cm LVPWd: 0.61 cm RVDd: 4.2 cm FS: 18.2 % _ LAV(MOD-bp): 65.1 ml LVAd ap4: 50.0 cm2 SV(MOD-sp4): 103.1 ml LAV(MOD-bp) Indexed: 25.9 ml/m2 LVLd ap4: 9.6 cm SI(MOD-sp4): 41.0 ml/m2 LAV(MOD-sp2): 50.6 ml EDV(MOD-sp4): 211.4 ml LAV(MOD-sp4): 66.8 ml EDV(sp4-el): 222.0 ml LVAs ap4: 31.5 cm2 LVLs ap4: 7.7 cm ESV(MOD-sp4): 108.4 ml ESV(sp4-el): 109.3 ml EF(MOD-sp4): 48.8 % EF(sp4-el): 50.8 % _ SV(sp4-el): 112.7 ml LA A4 area: 22.4 cm2 LA dimension(2D): 4.1 cm _ RA A4 area: 16.1 cm2 Time Measurements MV dec time: 0.19 sec Doppler Measurements Calculations MV E max juanita: 102.9 cm/sec Lat Peak E' Juanita: 16.6 cm/sec Med Peak E' Juanita: 13.7 cm/sec MV A max juanita: 74.3 cm/sec E/E' lat: 6.2 E/E' med: 7.5 MV E/A: 1.4 _ MV V2 max: 124.2 cm/sec MV P1/2t max juanita: 125.1 cm/sec Ao V2 max: 130.8 cm/sec MV max P.2 mmHg MV P1/2t: 60.5 msec Ao max P.8 mmHg MV V2 mean: 61.0 cm/sec MV dec slope: 605.4 cm/sec2 MV mean P.8 mmHg MVA(P1/2t): 3.6 cm2 MV V2 VTI: 32.7 cm _ LV V1 max: 110.4 cm/sec PA V2 max: 91.8 cm/sec LV V1 max P.9 mmHg PA V2 mean: 65.0 cm/sec ECHO/Echo Complete W/ Contrast Interpretation Summary Normal LV size. The left ventricular ejection fraction is 50 %. Stage 2 diastolic dysfunction. There is mild global hypokinesis of the left ventricle. Contrast injection was performed. Ordering Physician: Marlon Damon Performed By: Steve Ross RCS 01/12/251748 Date John Conrad MD CC: Dr. Mega Weeks MD; Dr. Riley Haque DO; Dr. 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 Mega Weeks MD Status:ADM IN Location: [place] [address] HPI History of Present Illness Chief Complaint: Palpitations PFSH PFSH Medical History Hypothyroidism Pancreatitis Cholecystectomy planned Implantable loop recorder present SVT (supraventricular tachycardia) History of lupus anticoagulant disorder History of asthma Insulin resistance Migraines Home Medications ???Medication ???Instructions ???Recorded ???Last Taken ???Type levothyroxine 50 mcg tablet 50 mcg PO DAILY 12/05/22 04/10/23 History (Synthroid) ascorbic acid (vitamin C) 500 mg 500 mg PO DAILY 03/05/24 Unknown H istory tablet aspirin 81 mg chewable tablet 81 mg PO DAILY 03/05/24 Unknown Hi story cholecalciferol (vitamin D3) 25 25 mcg PO DAILY 03/05/24 Unknown H istory mcg (1,000 unit) tablet gabapentin 100 mg capsule 100 mg PO DAILY PRN pain 09/17/24 Unknown History lisinopril 20 mg tablet 20 mg PO BID 09/17/24 Unknown Hist ory ondansetron HCl 8 mg tablet 8 mg PO Q12H PRN nausea and Unknown History vomiting albuterol sulfate 90 mcg/actuation 1 inh inhalation ONCE PRN Unknown History aerosol inhaler shortness of breath or wheezing amlodipine 5 mg tablet (Norvasc) 5 mg PO QDAY #90 tabs 11/18/24 Unk nown Rx metoprolol tartrate 25 mg tablet 25 mg PO BID #180 tabs 11/18/24 Un known Rx Allergy/AdvReac Type Severity Reaction Status Date / Time diphenhydramine (From Allergy Mild Chest Verified 01/11/25 13:55 Benadryl) tightness prochlorperazine (From Allergy Other Verified 01/11/25 13:55 Compazine) Family History Mother Cancer Thyroid disorder Father Heart disease Early 50s Surgical History History of section History of electrophysiologic study (02/13/22) History of tonsillectomy History of cholecystectomy Social History household members: spouse Smoking Status: Never smoker alcohol intake: never substance use type: does not use caffeine: Yes Type: coffee Number of servings: 2 EXAM Physical Exam Const Vital Signs: 01/11/25 13:55 01/11/25 14:04 Temperature 98.2 F Temperature Source Oral Pulse Rate 126 H 119 H Respiratory Rate 26 H 22 H Blood Pressure 184/98 H 160/69 H Blood Pressure Mean 126 99 Pulse Ox 99 100 Oxygen Delivery Method Room Air Room Air [facility] Narrative Medical decision making narrative: HISTORY OF PRESENT ILLNESS: Chief complaint: Palpitations 34-year-old female history of SVT, ventricular tachycardia, obesity, hypothyroidism, hypertension presents with acute onset of chest pain and palpitation occurred prior to arrival. No syncope. No bleeding diathesis noted. No recent illnesses. The patient denies recent surgery in the last 4 weeks or immobilization in the last 3 days, denies previous diagnosis of DVT or PE, hemoptysis, unilateral leg swelling or malignancy with treatment the last 6 months or palliative. No estrogen use noted. Patient denies sudden onset of pain, no tearing sensation, no migratory symptoms, no new numbness, weakness or loss of sensation. Patient denies family history or personal history of Connective tissue disorders (Marfan's Syndrome, Lorne Danlos etc). REVIEW OF SYSTEMS: Pertinent positives: Chest pain, palpitation Pertinent negatives: As per HPI PHYSICAL EXAM: Nursing triage notes reviewed, Vital signs reviewed Constitutional: please see mdm HENT: MMM Eyes: Pupils equal round and reactive to light, Extraocular muscles intact Neck: No stridor, no JVD, full neck ROM Lungs: Clear to auscultation, No wheezing or rales. No increased work of breathing, no conversational dyspnea, no accessory muscle use, no nasal flaring. No respiratory distress noted Heart: Regular rate and rhythm, No murmurs, No rubs and No gallops, 2+ distal pulses (radial, femoral, posterior tibial) in all extremities Abdomen: Soft, there is no tenderness, rigidity, rebound or guarding, no obvious peritoneal signs, no palpable pulsatile abdominal masses, no auscultated abdominal bruit : No CVAT Extremities: No edema Neuro: No new focal neurological deficits, cranial nerves II through XII intact, 5/5 strength in all present extremities. Intact sensation to light touch in all present extremities, 2+ reflexes bilateral patella tendons. Skin: No rash or l (more content not included)... Normal [facility] Free T3on 01-11-2025 Free T3 [Mass/Vol] 3.0 pg/mL Normal 2.18-3.98 [facility] Comment on above: Performed By: #### L 501.9520, L500.4050, L501.07571, L100.0100, L503.7505, L506.0400, L505.5000 ####[facility] [address] [place], [address] Free S3Jolvaye By: Silvano dickerson on 01-11-2025 Free T3 [Mass/Vol] 3.0 pg/mL 2.18-3.98 [facility] H AND P Exam - Hospitaliston 01-11-2025 H&P Exam - Hospitalist [facility] Medical Records Department [address] [place] [address] H P Exam - Hospitalist 01/11/25 1607 MR#: [id number] Acct: [id number] Name: AMBIKA BROWN Rep #: [id number] : 1990 34 From: Marlon Damon MD PCP: Dr. Mega Weeks MD Status:ADM IN Location: [place] [address] HPI - General General Date of Admission: 01/11/25 HPI Narrative AMBIKA BROWN, is a 34 F who presents to the hospital with chest pain and palpitations. No syncope but some lightheadedness and dizziness. She says it has been going on since 2019 after she had COVID. Since that time she has had multiple evaluations with no definitive diagnosis she was evaluated by electrophysiology who could not induce an arrhythmia but and she had a loop recorder implanted which demonstrated 2 episodes of possible A-fib versus sinus rhythm with ectopy. She is also had episodes of SVT. Over the last couple of days she has been having increased palpitations and she does wear an Apple Watch which demonstrated what looks like episodes of A-fib however in the ER today she demonstrated episodes of nonsustained V. tach. Troponins were unremarkable she does have a leukocytosis but unclear source, urine analysis is pending. She denies any travel out of the area, no unregulated supplement use, no chemical exposures, and no drug use. TSH is normal and cardiology was consulted in the ER with their recommendation of an amiodarone drip and an echocardiogram. She had an echo in 2020 with an EF of 50% and mild global hypokinesis of the left ventricle with no evidence of diastolic dysfunction. She was and gave to her son in 2022 which seems to have worsen her arrhythmic episodes. [facility] Medical History Hypothyroidism Pancreatitis Cholecystectomy planned Implantable loop recorder present SVT (supraventricular tachycardia) History of lupus anticoagulant disorder History of asthma Insulin resistance Migraines Home Medications ???Medication ???Instructions ???Recorded ???Last Taken ???Type levothyroxine 50 mcg tablet 50 mcg PO DAILY 12/05/22 04/10/23 History (Synthroid) ascorbic acid (vitamin C) 500 mg 500 mg PO DAILY 03/05/24 Unknown H istory tablet aspirin 81 mg chewable tablet 81 mg PO DAILY 03/05/24 Unknown Hi story cholecalciferol (vitamin D3) 25 25 mcg PO DAILY 03/05/24 Unknown H istory mcg (1,000 unit) tablet gabapentin 100 mg capsule 100 mg PO DAILY PRN pain 09/17/24 Unknown History lisinopril 20 mg tablet 20 mg PO BID 09/17/24 Unknown Hist ory ondansetron HCl 8 mg tablet 8 mg PO Q12H PRN nausea and Unknown History vomiting albuterol sulfate 90 mcg/actuation 1 inh inhalation ONCE PRN Unknown History aerosol inhaler shortness of breath or wheezing amlodipine 5 mg tablet (Norvasc) 5 mg PO QDAY #90 tabs 11/18/24 Unk nown Rx metoprolol tartrate 25 mg tablet 25 mg PO BID #180 tabs 11/18/24 Un known Rx Allergy/AdvReac Type Severity Reaction Status Date / Time diphenhydramine (From Allergy Mild Chest Verified 01/11/25 13:55 Benadryl) tightness prochlorperazine (From Allergy Other Verified 01/11/25 13:55 Compazine) Family History Mother Cancer Thyroid disorder Father Heart disease Early 50s Surgical History History of section History of electrophysiologic study (02/13/22) History of tonsillectomy History of cholecystectomy Social History household members: spouse Smoking Status: Never smoker alcohol intake: never substance use type: does not use caffeine: Yes Type: coffee Number of servings: 2 ROS Constitutional Constitutional: Denies chills, fatigue, fever(s) or malaise Eyes Eyes: Denies blurry vision ENT HEENT: Denies headache(s) or nasal discharge Cardiovascular Cardiovascular: Reports chest pain, lightheadedness and palpitations; Denies dyspnea on exertion or syncope Respiratory/Chest Respiratory/Chest: Denies cough, shortness of breath at rest or shortness of breath with exertion Gastrointestinal Gastrointestinal: Denies constipation, diarrhea, nausea or vomiting Genitourinary Genitourinary: Denies dysuria Neurologic Neurologic: Denies focal weakness, numbness or tremor(s) Psychiatric Psychiatric: Denies anxiety or depression Vital Signs Vital Signs Vital Signs: 01/11/25 13:55 01/11/25 14:04 01/11/25 14:13 Temperature 98.2 F Temperature Source Oral Pulse Rate 126 H 119 H 101 H Respiratory Rate 26 H 22 H 20 H Blood Pressure 184/98 H 160/69 H 149/87 H Blood Pressure Mean 126 99 107 Pulse Ox 99 100 98 Ox (more content not included)... Normal [facility] Ketones Test strip Ql (U)Ord ered By: Silvano Perez on 01-11-2025 Ketones Ql (U) Negative Negative [facility] L499.0042on 01-11-2025 Trop T High Sen < 6 Normal <=14 [facility] Comment on above: Performed By: #### L 501.3120, L501.5200, L100.0100, L500.2500 #### [facility] Laboratory [address] [place], [address] L499.0043on 01-11-2025 Trop T High Sen 6 ng/L Normal <=14 [facility] Comment on above: Performed By: #### L 499.0043 #### [facility] Laboratory [address] [place], [address] L501.4021on 01-11-2025 Trop T High Sen < 6 Normal <=14 [facility] Comment on above: Performed By: #### L 501.9520, L501.5200, L100.0100, L500.2500 #### [facility] Laboratory [address] [place], [address] L503.7505on 01-11-2025 proBNP < 36 Normal <=450 [facility] Comment on above: Result Comment: Hear t Failure Unlikely: < 300 pg/mL Heart Failure Likely < 50 Years: > 450 pg/mL 50-75 Years: > 900 pg/mL >75 Years: > 1800 pg/mL Performed By: #### L 501.9520, L500.4050, L501.27806, L100.0100, L503.7505, L506.0400, L505.5000 ####[facility] [address] [place], [address] Laboratory - Chemistry and C hemistry - challengeOrdered By: Silvano Perez on 01-11-2025 AST [Catalytic activity/Vol] 25 U/L <32 [facility] Microscopic analysis of urin e for red blood cells (RBC)Ordered By: Silvano Perez on 01-11-2025 Microscopic analysis of urine for red blood cells (RBC) 0-5 SEEN /hpf 0-5 [facility] Mucus LM Ql (Urine sed)Order ed By: Silvano Perez on 01-11-2025 Mucus Ql (Urine sed) 0 SEEN /hpf [facility] Natriuretic peptide.B prohor jeannine N-Terminal [Mass/volume] in Serum or PlasmaOrdered By: Silvano Perez on 01-11-2025 Natriuretic peptide.B prohormone N-Terminal [Mass/Vol] < 36 pg/mL <450 [facility] Comment on above: Heart Failure Unlike ly: < 300 pg/mLHeart Failure Likely< 50 Years: > 450 pg/mL50-75 Years: > 900 pg/mL>75 Years: > 1800 pg/mL Nitrite Test strip Ql (U)Ord ered By: Silvano Perez on 01-11-2025 Nitrite Ql (U) Negative Negative [facility] No Panel InformationOrdered By: Silvano Perez on 01-11-2025 Urine Buprenorphine Qualitative Negative < 200 ng/mL [facility] Urine Oxycodone Screen Negative < 100 ng/mL [facility] Phosphoruson 01-11-2025 Phosphate [Mass/Vol] 2.9 mg/dL Normal 2.7-4.5 [facility] Comment on above: Order Comment: Comme nts: off of blood already drawn Performed By: #### L 501.9520, L501.5200, L100.0100, L500.2500 #### [facility] Laboratory [facility] [place], [place], [id number] Protein Test strip Ql (U)Ord ered By: Silvano Perez on 01-11-2025 Protein Ql (U) 15 mg/dl High Negative [facility] Quantitative urine opiates m easurementOrdered By: Silvano Perez on 01-11-2025 Opiates Ql (U) Negative < 300 ng/mL [facility] Screening urine fentanyl tim surementOrdered By: Silvano Perez on 01-11-2025 fentaNYL Screen Ql (U) Negative [facility] Serum globulin measurementOr dered By: Silvano Perez on 01-11-2025 Globulin (S) [Mass/Vol] 3.7 g/dL 2.2-4.2 [facility] Serum or plasma alanine nair otransferase (ALT) measurementOrdered By: Silvano Perez on 01-11-2025 ALT [Catalytic activity/Vol] 25 U/L <35 [facility] Serum or plasma albumin prieto urement (mass/volume)Ordered By: Silvano Perez on 01-11-2025 Albumin [Mass/Vol] 4.0 g/dL 3.5-5.0 [facility] Serum or plasma albumin/glob ulin mass ratioOrdered By: Silvano Perez on 01-11-2025 Albumin/Globulin [Mass ratio] 1.1 {ratio} 0.9-2.4 [facility] Serum or plasma alkaline elizabeth sphatase measurementOrdered By: Silvano Perez on 01-11-2025 ALP [Catalytic activity/Vol] 114 U/L High 35-104 [facility] Squamous epithelial cells de tection in urine sediment by light microscopyOrdered By: Silvano Perez on 01-11-2025 Epithelial cells.squamous LM Ql (Urine sed) 0-5 SEEN /hpf 5-10 [facility] T4 Free Directon 01-11-2025 T4 FREE DIRECT 1.00 ng/dL Normal 0.76-1.46 [facility] Comment on above: Performed By: #### L 501.9520, L500.4050, L501.42028, L100.0100, L503.7505, L506.0400, L505.5000 ####[facility] [address] [place], [place], [id number] T4 freeOrdered By: Silvano dickerson on 01-11-2025 Free T4 [Mass/Vol] 1.00 ng/dL 0.76-1.46 [facility] TSH DL <= 0.005 mIU/L QnOrde red By: Silvano Perez on 01-11-2025 TSH Qn 1.620 uIU/mL 0.300-4.200 [facility] Thyroid Stim Hormone (TSH)on 01-11-2025 TSH 1.620 uIU/mL Normal 0.300-4.200 [facility] Comment on above: Performed By: #### L 501.9520, L500.4050, L501.90307, L100.0100, L503.7505, L506.0400, L505.5000 ####[facility] [address] [place], [place], [id number] Total proteinOrdered By: Georges Perez on 01-11-2025 Protein [Mass/Vol] 7.7 g/dL 5.9-8.4 [facility] Troponin T.cardiac [Mass/vol ume] in Serum or Plasma by High sensitivity methodOrdered By: Silvano Perez on 01-11-2025 Troponin T.cardiac High sensitivity method [Mass/Vol] 6 ng/L <14 [facility] Troponin T.cardiac High sensitivity method [Mass/Vol] < 6 ng/L <14 [facility] Troponin T.cardiac High sensitivity method [Mass/Vol] < 6 ng/L <14 [facility] Urinalysis, Completeon 01-11 BACTERIA 2+ /hpf Normal None Seen [facility] Comment on above: Order Comment: CLEAN CATCH Performed By: #### L 501.9520, L501.5200, L100.0100, L500.2500 #### [facility] Laboratory [address] [place], [address] EPI,SQUAMOUS 0-5 SEEN Normal 5-10 [facility] Comment on above: Order Comment: CLEAN CATCH Performed By: #### L 501.9520, L501.5200, L100.0100, L500.2500 #### [facility] Laboratory [address] [place], [address] RBC 0-5 SEEN Normal 0-5 [facility] Comment on above: Order Comment: CLEAN CATCH Performed By: #### L 501.9520, L501.5200, L100.0100, L500.2500 #### [facility] Laboratory [address] [place], [address] WBC 5-10 SEEN Normal 0-5 [facility] Comment on above: Order Comment: CLEAN CATCH Performed By: #### L 501.9520, L501.5200, L100.0100, L500.2500 #### [facility] Laboratory [address] [place], [address] Mucus Ql (Urine sed) 0 SEEN Normal [facility] Comment on above: Order Comment: CLEAN CATCH Performed By: #### L 501.9520, L501.5200, L100.0100, L500.2500 #### [facility] Laboratory [address] [place], [address] Urine Drug Screen (VISTA)on 01-11-2025 AMPHETAMINES Negative Normal <1000 ng/mL [facility] Comment on above: Performed By: #### L 501.9520, L500.4050, L501.53222, L100.0100, L503.7505, L506.0400, L505.5000 ####[facility] [address] [place], [address] BARBITIURATES Negative Normal < 200 ng/mL [facility] Comment on above: Performed By: #### L 501.9520, L500.4050, L501.81894, L100.0100, L503.7505, L506.0400, L505.5000 ####[facility] [address] [place], [address] BENZODIAZIPINE Negative Normal < 200 ng/mL [facility] Comment on above: Performed By: #### L 501.9520, L500.4050, L501.88955, L100.0100, L503.7505, L506.0400, L505.5000 ####[facility] [address] [place], [address] BUP Ur Drug Scr Negative Normal < 200 ng/mL [facility] Comment on above: Performed By: #### L 501.9520, L500.4050, L501.57004, L100.0100, L503.7505, L506.0400, L505.5000 ####[facility] [address] [place], [address] COCAINE Negative Normal < 300 ng/mL [facility] Comment on above: Performed By: #### L 501.9520, L500.4050, L501.71201, L100.0100, L503.7505, L506.0400, L505.5000 ####[facility] [address] [place], [address] Fentanyl Negative Normal [facility] Comment on above: Performed By: #### L 501.9520, L500.4050, L501.69407, L100.0100, L503.7505, L506.0400, L505.5000 ####[facility] [address] [place], [address] METHADONE Negative Normal < 300 ng/mL [facility] Comment on above: Performed By: #### L 501.9520, L500.4050, L501.74725, L100.0100, L503.7505, L506.0400, L505.5000 ####[facility] [address] [facility] [address] OPIATES Negative Normal < 300 ng/mL [facility] Comment on above: Performed By: #### L 501.9520, L500.4050, L501.64585, L100.0100, L503.7505, L506.0400, L505.5000 ####[facility] [address] [facility] [address] OXYCODONE Negative Normal < 100 ng/mL [facility] Comment on above: Performed By: #### L 501.9520, L500.4050, L501.83575, L100.0100, L503.7505, L506.0400, L505.5000 ####[facility] [address] [place], [address] PCP Negative Normal < 25 ng/mL [facility] Comment on above: Performed By: #### L 501.9520, L500.4050, L501.88006, L100.0100, L503.7505, L506.0400, L505.5000 ####[facility] [address] [place] [address] THC Negative Normal < 50 ng/mL [facility] Comment on above: Performed By: #### L 501.9520, L500.4050, L501.69422, L100.0100, L503.7505, L506.0400, L505.5000 ####[facility] [address] [place], [address] Urine benzodiazepine levelOr dered By: Silvano Perez on 01-11-2025 Benzodiazepines Ql (U) Negative < 200 ng/mL [facility] Urine clarityOrdered By: Georges Perez on 01-11-2025 Clarity (U) Clear Clear [facility] Urine cocaine levelOrdered B y: Silvano Perez on 01-11-2025 Cocaine Ql (U) Negative < 300 ng/mL [facility] Urine color determinationOrd ered By: Silvano Perez on 01-11-2025 Color (U) Straw Yellow [facility] Urine ygmgq-4-ughkjycqnfzuzr abinol (THC) measurementOrdered By: Silvano Perez on 01-11-2025 Cannabinoids Screen Ql (U) Negative < 50 ng/mL [facility] Urine glucose detectionOrder ed By: Silvano Perez on 01-11-2025 Glucose Ql (U) Normal mg/dl Normal [facility] Urine leukocyte esterase det ection by dipstickOrdered By: Silvano Perez on 01-11-2025 Leukocyte esterase Test strip Ql (U) 25 /ul High Negative [facility] Urine pHOrdered By: Silvano edwards on 01-11-2025 pH (U) 6.0 [pH] 5.0 - 8.0 [facility] Urine phencyclidine (PCP) de tectionOrdered By: Silvano Perez on 01-11-2025 Phencyclidine Ql (U) Negative < 25 ng/mL [facility] Urine sediment bacteria coun t by microscopy (number/high power field)Ordered By: Silvano Perez on 01-11-2025 Bacteria LM.HPF (Urine sed) [#/Area] 2 /[HPF] None Seen [facility] Urine specific gravity measu rementOrdered By: Silvano Perez on 01-11-2025 Specific gravity (U) [Rel density] 1.010 1.002-1.030 [facility] Urine urobilinogen measureme ntOrdered By: Silvano Perez on 01-11-2025 Urobilinogen Ql (U) Normal mg/dl Normal [facility] White blood cell countOrdere d By: Silvano Perez on 01-11-2025 White blood cell count 5-10 SEEN /hpf 0-5 [facility] Cardiology Visit Reporton Cardiology Visit Report [facility] [address] [place] [address] OFFICE VISIT Date of Service: 01/08/25 MR#: [id number] Acct: [id number] Name: AMBIKA BROWN Rep #: [id number] : 1990 Provider: DONALD gómez Age/Sex: 34/F Location: [facility] [place] Status: Signed HPI HPI History of Present Illness Details: AMBIKA BROWN, is a 34 F who presents to the office today for a cardiovascular visit. She presented to the hospital in June of 2021with symptoms of palpitations and syncope. She had an episode of syncope in the ER while she was being monitored. She had another episode of syncope while in the PCU. She did have two separate episodes of 2-3 beat run of ventricular tachycardia. She did see Dr. Rock on 12/06/2021 for continued intermittent palpitations with tachycardia. Cardiac monitoring and EKGs during or shortly following episodes have revealed a long RP tachycardia consistent with either sinus tachycardia or atrial tachycardia. Recommendation was to do an EP study with possible ablation. She underwent EP evaluation on 02/13/2022, which was unable to provoke dysrhythmia. Pt did have syncope in March of 2022, she was evaluated at the emergency department 03/22/2022 for syncopal episode. Prior to syncopal episode she noted palpitations and not feeling well. Her EKG on 03/22/2022 showed normal sinus rhythm at a rate of 87 bpm. Her apple watch during time of not feeling well revealed sinus rhythm/sinus tachycardia with infrequent ectopy. She had another episode of syncope a few weeks later. She had a loop recorder placed in 08/2022. Loop recorder interrogation demonstrated 2 questionable atrial fibs episodes but also was a question of sinus with artifact. They were 52 minutes in duration. 2 sinus bradycardia episodes noted. She resumed metoprolol therapy in November 2023. Most recent remote check from 09/2024 on her ILR did not demonstrate any arrhythmias. She does feel that her ILR is not working any longer. Patient presented to the emergency room on 01/06/2025 after a SVT and syncopal episode. She states that she has been having more SVT and near syncopal episodes. 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 From a cardiac standpoint, the patient is doing well. She does acknowledge palpitations, lightheadedness, near syncope and syncopal episodes. She denies chest pain, pressure or heaviness. She denies SOB, Orthopnea, and PND. She does not have bleeding issues; no blood in urine, stool, or nosebleeds. She denies any decrease in energy level, myalgias, or claudication. She does not have edema, or sudden weight gain. Intake Vital Signs 12/03/24 20:22 01/08/25 13:51 01/08/25 13:53 Height 5 ft 7 in 5 ft 7 in 5 ft 7 in Weight: 337 lb BMI 52.7 BP 154/95 H Blood Pressure Location Lt brachial Position Sitting Respiration 18 Pulse 92 Pulse Source Monitor Pulse Oximetry (%) 97 Intake Visit Reasons: S/P SAMARITIAN 01/06 [employer] Education Instructor Required: No Is patient in pain?: No Allergies diphenhydramine (From Benadryl) Allergy (Mild, Verified 01/08/25 14:06) Chest tightness prochlorperazine (From Compazine) Allergy (Verified 01/08/25 14:06) Other Medications ???Medication ???Instructions ???Recorded ???Confirmed ???Type levothyroxine 50 mcg tablet 50 mcg PO DAILY 12/05/22 01/08/25 History (Synthroid) ascorbic acid (vitamin C) 500 mg 500 mg PO DAILY 03/05/24 01/08/25 History tablet aspirin 81 mg chewable tablet 81 mg PO DAILY 03/05/24 01/08/25 H istory cholecalciferol (vitamin D3) 25 25 mcg PO DAILY 03/05/24 01/08/25 History mcg (1,000 unit) tablet gabapentin 100 mg capsule 100 mg PO DAILY PRN pain 09/17/24 01/08/25 History lisinopril 20 mg tablet 20 mg PO BID 09/17/24 01/08/25 His tory methocarbamol 500 mg tablet 500 mg PO Q6H PRN pain 09/17/24 History ondansetron HCl 8 mg tablet mg PO 09/17/24 01/08/25 History albuterol sulfate 90 mcg/actuation 1 inh inhalation ONCE PRN 01/08/25 History aerosol inhaler amlodipine 5 mg tablet (Norvasc) 5 mg PO QDAY #90 tabs 11/18/2410/04 Rx metoprolol tartrate 25 mg tablet 25 mg PO BID #180 tabs 11/18/24 Rx Have you fallen in the past year?: No Nurse's Note: per patient, no changes in medications [facility] Hypothyroidism Pancreatitis Cholecystectomy planned Implantable loop recorder present SVT (supraventricular tachycardia) History of lupus anticoagulant disorder History of asthma Insulin resistance Migraines Surgical History History of section History of electrophysiologic study (02/13/22) History of tonsillectomy History of cholecystec (more content not included)... Normal [facility] Bacteria identifiedon 2024 Bacteria identified Cx Nom (U) Test: Urine Culture Specimen Source: Clean Catch/Voided Specimen Type: Urine Specimen Date: 01/06/2025 1304 Result Date: 01/07/2025 1553 Result Status: Final result Abnormal: No Resulting Lab: [facility] [address] [address] CULTURE Growth indicates contamination with periurethral jorgito. Repeat culture if clinically indicated. [facility] Comment on above: Performed By: #### 6 30-4 #### YENNY Little ([id number]) [facility] ([facility]) [address] [place] [address] CBC panel Auto (Bld)on 01-06 Erythrocyte distribution width (RBC) [Ratio] 15.5 % High 11.5 - 14.5 % [facility] Hematocrit (Bld) [Volume fraction] 41.5 % 36.0 - 46.0 % [facility] Hemoglobin (Bld) [Mass/Vol] 12.7 g/dL 12.0 - 16.0 g/dL [facility] Interpretation and review of laboratory results Abnormal [facility] MCH (RBC) [Entitic mass] 24.5 pg Low 26.0 - 34.0 pg [facility] MCHC (RBC) [Mass/Vol] 30.6 g/dL Low 32.0 - 36.0 g/dL [facility] MCV (RBC) [Entitic vol] 80 fL 80 - 100 fL [facility] Nucleated RBC/100 WBC (Bld) [Ratio] 0 % [facility] Platelets (Bld) [#/Vol] 237 10*3/uL [facility] RBC (Bld) [#/Vol] 5.18 10*6/uL [facility] WBC (Bld) [#/Vol] 9.1 10*3/uL [facility] Erythrocyte distribution width (RBC) [Ratio] 15.5 % High 11.5-14.5 [facility] Comment on above: Performed By: #### 5 8410-2 #### AXEL PIERRE ([id number]) [facility] ([facility]) [address] [place] [address] Hematocrit (Bld) [Volume fraction] 41.5 % Normal 36.0-46.0 [facility] Comment on above: Performed By: #### 5 8410-2 #### AXEL PIERRE ([id number]) [facility] ([facility]) [address] [place] [address] Hemoglobin (Bld) [Mass/Vol] 12.7 g/dL Normal 12.0-16.0 [facility] Comment on above: Performed By: #### 5 8410-2 #### AXEL PIERRE ([id number]) [facility] ([facility]) [address] [place] [address] 13434 MCH (RBC) [Entitic mass] 24.5 pg Low 26.0-34.0 [facility] Comment on above: Performed By: #### 5 8410-2 #### AXEL PIERRE ([id number]) [facility] ([facility]) [address] [place] [address] MCHC (RBC) [Mass/Vol] 30.6 g/dL Low 32.0-36.[address] [facility] Comment on above: Performed By: #### 5 8410-2 #### AXEL PIERRE ([id number]) [facility] ([facility]) [address] [place] [address] MCV (RBC) [Entitic vol] 80 fL Normal 80-100 [facility] Comment on above: Performed By: #### 5 8410-2 #### AXEL PIERRE ([id number]) [facility] ([facility]) [address] [place] [address]77 Nucleated RBC/100 WBC (Bld) [Ratio] 0.0 /100 WBCs Normal 0.0-0.0 [facility] Comment on above: Performed By: #### 5 8410-2 #### AXEL PIERRE ([id number]) [facility] ([facility]) [address] [place] [address] 18690 Platelets (Bld) [#/Vol] 237 x10*3/uL Normal 150-450 [facility] Comment on above: Performed By: #### 5 8410-2 #### AXEL PIERRE ([id number]) [facility] ([facility]) [address] [place] [address] 42216 RBC (Bld) [#/Vol] 5.18 x10*6/uL Normal 4.00-5.20 [facility] Comment on above: Performed By: #### 5 8410-2 #### AXEL PIERRE ([id number]) [facility] ([facility]) [address] [place] [address] WBC (Bld) [#/Vol] 9.1 x10*3/uL Normal 4.4-11.3 [facility] Comment on above: Performed By: #### 5 8410-2 #### AXEL PIERRE ([id number]) [facility] ([facility]) [address] [id number] Comprehensive metabolic 2000 panelon 01-06-2025 Albumin BCP dye [Mass/Vol] 4 g/dL 3.4 - 5.0 g/dL [facility] ALP [Catalytic activity/Vol] 92 U/L 33 - 110 U/L [facility] ALT With P-5'-P [Catalytic activity/Vol] 25 U/L 7 - 45 U/L [facility] Comment on above: Patients treated wit h Sulfasalazine may generate falsely decreased results for ALT. Anion gap [Moles/Vol] 12 mmol/L 10 - 2 0 mmol/L [facility] AST With P-5'-P [Catalytic activity/Vol] 20 U/L 9 - 39 U/L [facility] Bilirubin [Mass/Vol] 0.4 mg/dL 0.0 - 1 .2 mg/dL [facility] Calcium [Mass/Vol] 8.6 mg/dL 8.6 - 10. 3 mg/dL [facility] Chloride [Moles/Vol] 104 mmol/L 98 - 10 7 mmol/L [facility] CO2 [Moles/Vol] 25 mmol/L 21 - 32 mmol/L [facility] Creatinine [Mass/Vol] 0.61 mg/dL 0.50 - 1.05 mg/dL [facility] eGFR - PINF [facility] Comment on above: Calculations of duy mated GFR are performed using the 2020 CKD-EPI Study Refit equation without the race variable for the IDMS-Traceable creatinine methods. https://jasn.asnjournals.org/content//ASN.2020 566399 Glucose [Mass/Vol] 92 mg/dL 74 - 99 mg/dL [facility] Interpretation and review of laboratory results Normal [facility] Potassium [Moles/Vol] 3.9 mmol/L 3.5 - 5.3 mmol/L [facility] Protein [Mass/Vol] 7.2 g/dL 6.4 - 8.2 g/dL [facility] Sodium [Moles/Vol] 137 mmol/L 136 - 145 mmol/L [facility] Urea nitrogen [Mass/Vol] 11 mg/dL 6 - 23 mg/dL [facility] Albumin BCP dye [Mass/Vol] 4.0 g/dL Normal 3.4-5.0 [facility] Comment on above: Performed By: #### 2 4323-8 #### AXEL PIERRE ([id number]) [facility] ([facility]) [address] [place] [address] ALP [Catalytic activity/Vol] 92 U/L Normal 33-110 [facility] Comment on above: Performed By: #### 2 4323-8 #### AXEL PIERRE ([id number]) [facility] ([facility]) [address] [place] [address] ALT With P-5'-P [Catalytic activity/Vol] 25 U/L Normal 7-45 [facility] Comment on above: Result Comment: Maddie ents treated with Sulfasalazine may generate falsely decreased results for ALT. Performed By: #### 2 4323-8 #### AXEL PIERRE ([id number]) [facility] ([facility]) [address] [place] [address] 20403 Anion gap [Moles/Vol] 12 mmol/L Normal 10-[address] [facility] Comment on above: Performed By: #### 2 4323-8 #### AXEL PIERRE ([id number]) [facility] ([facility]) [address] [place] [address] 13314 AST With P-5'-P [Catalytic activity/Vol] 20 U/L Normal 9-39 [facility] Comment on above: Performed By: #### 2 4323-8 #### AXEL PIERRE ([id number]) [facility] ([facility]) [address] [place] [address] Bilirubin [Mass/Vol] 0.4 mg/dL Normal 0.0-1.2 [facility] Comment on above: Performed By: #### 2 4323-8 #### AXEL PIERRE ([id number]) [facility] ([facility]) [address] [place] [address] 18446 Calcium [Mass/Vol] 8.6 mg/dL Normal 8.6-10.3 [facility] Comment on above: Performed By: #### 2 4323-8 #### AXEL PIERRE ([id number]) [facility] ([facility]) [address] [place] [address] 87590 Chloride [Moles/Vol] 104 mmol/L Normal 98-107 [facility] Comment on above: Performed By: #### 2 4323-8 #### AXEL PIERRE ([id number]) [facility] ([facility]) [address] [place] [address] 61578 CO2 [Moles/Vol] 25 mmol/L Normal 21-32 [facility] Comment on above: Performed By: #### 2 4323-8 #### AXEL PIERRE ([id number]) [facility] ([facility]) [address] [place] [address] 27265 Creatinine [Mass/Vol] 0.61 mg/dL Normal 0.50-1.[address] [facility] Comment on above: Performed By: #### 2 4323-8 #### AXEL PIERRE ([id number]) [facility] ([facility]) [address] [place] [address] 43840 GFR/1.73 sq M.predicted MDRD (S/P/Bld) [Vol rate/Area] mL/min/{1.73_m2} Normal >60 [facility] Comment on above: Result Comment: Calc ulations of estimated GFR are performed using the 2020 CKD-EPI Study Refit equation without the race variable for the IDMS-Traceable creatinine methods. https://jasn.asnjournals.org/content//ASN.7090417 Performed By: #### 2 432-8 #### AXEL PIERRE ([id number]) [facility] ([facility]) [address] [place] [address] 23993 Glucose [Mass/Vol] 92 mg/dL Normal 74-99 [facility] Comment on above: Performed By: #### 2 432-8 #### AXEL PIERRE ([id number]) [facility] ([facility]) [address] [place] [address] 76268 Potassium [Moles/Vol] 3.9 mmol/L Normal 3.5-5.[address] [facility] Comment on above: Performed By: #### 2 4322-8 #### AXEL PIERRE ([id number]) [facility] ([facility]) [address] [place] [address] 27218 Protein [Mass/Vol] 7.2 g/dL Normal 6.4-8.2 [facility] Comment on above: Performed By: #### 2 432-8 #### AXEL PIERRE ([id number]) [facility] ([facility]) [address] [place] [address] 93722 Sodium [Moles/Vol] 137 mmol/L Normal 136-145 [facility] Comment on above: Performed By: #### 2 432-8 #### AXEL PIERRE ([id number]) [facility] ([facility]) [address] [place] [address] 66346 Urea nitrogen [Mass/Vol] 11 mg/dL Normal 6-23 [facility] Comment on above: Performed By: #### 2 4323-8 #### AXEL PIERRE ([id number]) [facility] ([facility]) [address] [place] [address] 38433 ECG 12-LEADon 01-06-2025 ECG 12-LEAD Ventricular Rate 80 Atrial Rate 80 P-R Interval 178 QRS Duration 82 Q-T Interval 388 QTC Calculation(Bazett) 447 P [place] 54 R [place] 67 T [place] 0 QRS Count 13 Q Onset 217 P Onset 128 P Offset 188 T Offset 411 QTC Fredericia 427 Diagnosis Normal sinus rhythm Normal ECG No previous ECGs available See ED provider note for full interpretation and clinical correlation Confirmed by Mary Valentine ([id number]) on 01/08/2025 10:03:52 PM Normal [facility] HCG ( test) IA.rapi d Ql (U)Ordered By: Rosalinda Warner on 01-06-2025 HCG ( test) Ql (U) Negative NEGATIVE [facility] Interpretation and review of laboratory results Normal [facility] HCG ( test) IA.rapi d Ql (U)on 01-06-2025 HCG ( test) Ql (U) Negative Normal NEGATIVE [facility] Comment on above: Performed By: #### 8 0384-1 #### REYNA IGNACIO ([id number]) [facility] ([facility]) [address] [place] [address] No Panel Informationon 01-06 Interpretation and review of laboratory results Abnormal [facility] Tropinin I.cardiac panel Hig h sensitivity methodon 01-06-2025 Interpretation and review of laboratory results Normal [facility] Less than 99th percentile of normal range cutoff- Female and children under 18 years old <14 ng/L; Male <21 ng/L: Negative Repeat testing should be performed if clinically indicated. Female and children under 18 years old 14-50 ng/L; Male 21-50 ng/L: Consistent with possible cardiac damage and possible increased clinical risk. Serial measurements may help to assess extent of myocardial damage. >50 ng/L: Consistent with cardiac damage, increased clinical risk and myocardial infarction. Serial measurements may help assess extent of myocardial damage. NOTE: Children less than 1 year old may have higher baseline troponin levels and results should be interpreted in conjunction with the overall clinical context. NOTE: Troponin I testing is performed using a different testing methodology at [facility] than at other [facility]. Direct result comparisons should only be made within the same method. [facility] Interpretation and review of laboratory results Normal [facility] Less than 99th percentile of normal range cutoff- Female and children under 18 years old <14 ng/L; Male <21 ng/L: Negative Repeat testing should be performed if clinically indicated. Female and children under 18 years old 14-50 ng/L; Male 21-50 ng/L: Consistent with possible cardiac damage and possible increased clinical risk. Serial measurements may help to assess extent of myocardial damage. >50 ng/L: Consistent with cardiac damage, increased clinical risk and myocardial infarction. Serial measurements may help assess extent of myocardial damage. NOTE: Children less than 1 year old may have higher baseline troponin levels and results should be interpreted in conjunction with the overall clinical context. NOTE: Troponin I testing is performed using a different testing methodology at [facility] than at other [facility]. Direct result comparisons should only be made within the same method. [facility] Troponin I, High Sensitivity , Initialon 01-06-2025 Tropinin I.cardiac panel High sensitivity method 3 ng/L 0 - 13 ng/L [facility] Troponin I.cardiac panelon 0 01-06-2025 Tropinin I.cardiac panel High sensitivity method 3 ng/L Normal 0-13 [facility] Comment on above: Order Comment: Less than 99th percentile of normal range cutoff- Female and children under 18 years old <14 ng/L; Male <21 ng/L: Negative Repeat testing should be performed if clinically indicated. Female and children under 18 years old 14-50 ng/L; Male 21-50 ng/L: Consistent with possible cardiac damage and possible increased clinical risk. Serial measurements may help to assess extent of myocardial damage. >50 ng/L: Consistent with cardiac damage, increased clinical risk and myocardial infarction. Serial measurements may help assess extent of myocardial damage. NOTE: Children less than 1 year old may have higher baseline troponin levels and results should be interpreted in conjunction with the overall clinical context. NOTE: Troponin I testing is performed using a different testing methodology at [facility] than at other [facility]. Direct result comparisons should only be made within the same method. Performed By: #### 8 9577-1 #### REYNA IGNACIO ([id number]) [facility] ([facility]) [address] [place] [address] Tropinin I.cardiac panel High sensitivity method 3 ng/L Normal 0-13 [facility] Comment on above: Order Comment: Less than 99th percentile of normal range cutoff- Female and children under 18 years old <14 ng/L; Male <21 ng/L: Negative Repeat testing should be performed if clinically indicated. Female and children under 18 years old 14-50 ng/L; Male 21-50 ng/L: Consistent with possible cardiac damage and possible increased clinical risk. Serial measurements may help to assess extent of myocardial damage. >50 ng/L: Consistent with cardiac damage, increased clinical risk and myocardial infarction. Serial measurements may help assess extent of myocardial damage. NOTE: Children less than 1 year old may have higher baseline troponin levels and results should be interpreted in conjunction with the overall clinical context. NOTE: Troponin I testing is performed using a different testing methodology at [facility] than at other [facility]. Direct result comparisons should only be made within the same method. Performed By: #### 8 9577-1 #### REYNA IGNACIO ([id number]) [facility] ([facility]) [address] [place] [address] Troponin, High Sensitivity, 1 Houron 01-06-2025 Tropinin I.cardiac panel High sensitivity method 3 ng/L 0 - 13 ng/L [facility] Urinalysis complete W Reflex Culture panel (U)on 01-06-2025 Appearance (U) Clear Clear [facility] Bilirubin (U) [Mass/Vol] Negative NEGATIVE mg/dL [facility] Color (U) Light-Yellow Light-Yellow , Yellow, Dark-Yellow [facility] Glucose Auto test strip (U) [Mass/Vol] Normal Normal mg/dL [facility] Ketones (U) [Mass/Vol] TRACE Abnormal NEGAT HILARY mg/dL [facility] Leukocyte esterase Auto test strip Ql (U) 25 Mickey/uL Abnormal NEGATIVE [facility] Nitrite Auto test strip Ql (U) Negative NEGATIVE [facility] pH (U) 6 [pH] 5.0, 5.5, 6.0, 6.5, 7.0, 7.5, 8.0 [facility] Protein (U) [Mass/Vol] Negative NEGAT HILARY, 10 (TRACE), 20 (TRACE) mg/dL [facility] RBC (U) [#/Vol] Negative NEGATIVE mg/dL [facility] Specific gravity (U) [Rel density] 1.017 1.005 - 1.035 [facility] Urobilinogen (U) [Mass/Vol] Normal Normal mg/dL [facility] Appearance (U) Clear Normal Clear [facility] Comment on above: Performed By: #### 5 8077-9 #### AXEL PIERRE ([id number]) [facility] ([facility]) [address] [place] [address] 27828 Bilirubin (U) [Mass/Vol] Negative Normal NEGATIVE [facility] Comment on above: Performed By: #### 5 8077-9 #### AXEL PIERRE ([id number]) [facility] ([facility]) [address] [place] [address] 50635 Color (U) Light-Yellow Normal Light-Yellow , Yellow, Dark-Yellow [facility] Comment on above: Performed By: #### 5 8077-9 #### AXEL PIERRE ([id number]) [facility] ([facility]) [address] [place] [address] 24271 Glucose Auto test strip (U) [Mass/Vol] Normal Normal Normal [facility] Comment on above: Performed By: #### 5 8077-9 #### AXEL PIERRE ([id number]) [facility] ([facility]) [address] [place] [address] 17931 Ketones (U) [Mass/Vol] TRACE Abnormal NEGATIVE [facility] Comment on above: Performed By: #### 5 8077-9 #### AXEL PIERRE ([id number]) [facility] ([facility]) [address] [place] [address] 98987 Leukocyte esterase Auto test strip Ql (U) 25 Mickey/uL Abnormal NEGATIVE [facility] Comment on above: Performed By: #### 5 8077-9 #### AXEL PIERRE ([id number]) [facility] ([facility]) [address] [place] [address] 19160 Nitrite Auto test strip Ql (U) Negative Normal NEGATIVE [facility] Comment on above: Performed By: #### 5 8077-9 #### AXEL PIERRE ([id number]) [facility] ([facility]) [address] [place] [address] 79388 pH (U) 6.0 [pH] Normal 5.0, 5.5, 6.0, 6.5, 7.0, 7.5, 8.0 [facility] Comment on above: Performed By: #### 5 8077-9 #### AXEL PIERRE ([id number]) [facility] ([facility]) [address] [place] [address] Protein (U) [Mass/Vol] Negative Normal NEGAT HILARY, 10 (TRACE), 20 (TRACE) [facility] Comment on above: Performed By: #### 5 8077-9 #### AXEL PIERRE ([id number]) [facility] ([facility]) [address] [place] [address] RBC (U) [#/Vol] Negative Normal NEGATIVE [facility] Comment on above: Performed By: #### 5 8077-9 #### AXEL PIERRE ([id number]) [facility] LAB ([facility]) [address] [place] [address] Specific gravity (U) [Rel density] 1.017 Normal 1.005-1.035 [facility] Comment on above: Performed By: #### 5 8077-9 #### AXEL PIERRE ([id number]) [facility] ([facility]) [address] [place] [address] Urobilinogen (U) [Mass/Vol] Normal Normal Normal [facility] Comment on above: Performed By: #### 5 8077-9 #### AXEL PIERRE ([id number]) [facility] ([facility]) [address] [place] [address] Urinalysis microscopic panel Auto Ql (U)on 01-06-2025 Epithelial cells.squamous Auto (Urine sed) [#/Area] 1-9 (SPARSE) Reference range not established. /HPF [facility] Mucus Auto (Urine sed) [#/Area] FEW Reference range not established. /LPF [facility] RBC Auto (Urine sed) [#/Area] NONE NONE, 1-2, 3-5 /HPF [facility] WBC Auto (Urine sed) [#/Area] 6-10 Abnormal 1-5, NONE /HPF [facility] Epithelial cells.squamous Auto (Urine sed) [#/Area] 1-9 (SPARSE) Normal Reference range not established. [facility] Comment on above: Performed By: #### 5 3315-8 #### AXEL PIERRE ([id number]) [facility] ([facility]) [address] [place] [address] Mucus Auto (Urine sed) [#/Area] FEW Normal Reference range not established. [facility] Comment on above: Performed By: #### 5 3315-8 #### AXEL PIERRE ([id number]) [facility] ([facility]) [address] [place] [address] RBC Auto (Urine sed) [#/Area] NONE Normal NONE, 1-2, 3-5 [facility] Comment on above: Performed By: #### 5 3315-8 #### AXEL PIERRE ([id number]) [facility] ([facility]) [address] [place] [address] WBC Auto (Urine sed) [#/Area] 6-10 Abnormal 1-5, NONE [facility] Comment on above: Performed By: #### 5 3315-8 #### AXEL PIERRE ([id number]) [facility] ([facility]) [address] [place] [address] XR CHEST 1 VIEWon 01-06-2025 XR CHEST 1 VIEW Interpreted By: Waleska Hodge i, STUDY: XR CHEST 1 VIEW; 01/06/2025 11:39 am INDICATION: Signs/Symptoms:palpitati ons. COMPARISON: Chest radiograph 09/21/2016 ACCESSION NUMBER(S): [id number] ORDERING CLINICIAN: SARAH SAM FINDINGS: CARDIOMEDIASTINAL SILHOUETTE: Enlargement of the cardiopericardial silhouette. LUNGS: Patchy right basilar opacity. Left lung is clear. No pleural effusion or pneumothorax. ABDOMEN: No remarkable upper abdominal findings. BONES: No acute osseous changes. IMPRESSION: Cardiomegaly without pulmonary edema. Patchy right basilar opacity may relate to pneumonia or atelectasis MACRO: None Signed by: Waleska Gallardo 01/06/2025 12:06 PM Dictation workstation: [id number] Normal [facility] XR Chest Single viewon 01-06 Cardiomegaly without pulmonary edema. Patchy right basilar opacity may relate to pneumonia or atelectasis MACRO: None Signed by: Waleska Gallardo 01/06/2025 12:06 PM Dictation workstation: [id number] [facility] Interpreted By: Waleska Hodge i, STUDY: XR CHEST 1 VIEW; 01/06/2025 11:39 am INDICATION: Signs/Symptoms:palpitati ons. COMPARISON: Chest radiograph 09/21/2016 ACCESSION NUMBER(S): [id number] ORDERING CLINICIAN: SARAH SAM FINDINGS: CARDIOMEDIASTINAL SILHOUETTE: Enlargement of the cardiopericardial silhouette. LUNGS: Patchy right basilar opacity. Left lung is clear. No pleural effusion or pneumothorax. ABDOMEN: No remarkable upper abdominal findings. BONES: No acute osseous changes. [facility] Waleska Gallardo MD - 01/06/2025 Interpreted By: Waleska Gallardo, STUDY: XR CHEST 1 VIEW; 01/06/2025 11:39 am INDICATION: Signs/Symptoms:palpitati ons. COMPARISON: Chest radiograph 09/21/2016 ACCESSION NUMBER(S): [id number] ORDERING CLINICIAN: SARAH SAM FINDINGS: CARDIOMEDIASTINAL SILHOUETTE: Enlargement of the cardiopericardial silhouette. LUNGS: Patchy right basilar opacity. Left lung is clear. No pleural effusion or pneumothorax. ABDOMEN: No remarkable upper abdominal findings. BONES: No acute osseous changes. IMPRESSION: Cardiomegaly without pulmonary edema. Patchy right basilar opacity may relate to pneumonia or atelectasis MACRO: None Signed by: Waleska Gallardo 01/06/2025 12:06 PM Dictation workstation: [id number] [facility] Work Phone: Radiology Study observation (narrative) [facility] Work Phone: XR Chest Single viewOrdered By: Waleska Gallardo on 01-06-2025 [facility] Work Phone: CNOVon 12-16-2024 CNOV Office Visit (ALFONSO GARCIA) -------- AMBIKA BROWN ([id number]) 1990 F T Date Time Provider Department 12/16/24 8:20 AM NITIN ROCK AGCARDPOEnrrique During your visit today, we recorded the following information about you: Pulse Blood pressure Weight 85/minute 143/90 156.5 kg Nitin Rock MD 12/16/2024 7:37 PM Signed PRIMARY CARE [place]IC[place]: [place] [address] [place] [address] REFERRING PHYSICIAN: Alison Díaz ([facility]) [address] [facility] [address] Patient Care Team: Mega Weeks as PCP - General (Internal Medicine) John Conrad MD as Specialty Retail Client Solutions Analyst (Cardiology) Nitin Rock MD as Specialty Retail Client Solutions Analyst (Cardiology) Alison Díaz PA-C as Physician Oil Spraying Machine Operator (Cardiology) The patient consented to the use of Geniuzz software for draft documentation of the visit consistent with [facility]?s Notice of Privacy Practices. CHIEF COMPLAINT: Evaluation of arrhythmia HISTORY OF PRESENT ILLNESS: Ms. Brown is a 34 year old female who presents today for evaluation of arrhythmia. I had seen her a few years ago for this condition and she is now referred back to me by [facility]. Patient Overview: Ms. Brown is referred for evaluation of supraventricular tachycardia (SVT). She is followed by [facility] and has multiple other medical problems, including morbid obesity and hypertension. There is a history of an electrophysiology study performed in February 2022. She also had an Harmon implantable cardiac loop recorder inserted in August 2022. Diagnostic Results: - Implantable Loop Recorder Interrogation Report (September 2024): - Battery may reach end of service within approximately a month. - Brief episodes of arrhythmia noted. Items for Follow-Up Today: - Review implantable loop recorder interrogation report in more detail, possibly with a better fax copy. The patient is a 34-year-old female with a history of SVT, morbid obesity, and hypertension, presenting for evaluation of worsening arrhythmia symptoms. The patient reports a significant increase in the frequency and severity of palpitations and SVT. She experiences episodes of tachycardia accompanied by lightheadedness and has had several instances of near syncope or even syncope. She also reports chest pain even in the absence of tachycardia. 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 Symptoms are exacerbated by physical exertion, such as carrying her young son. She has a history of elevated blood pressure, which she believes contributed to the worsening of her arrhythmia. Her blood pressure is now better controlled. She was evaluated in [facility] EP office in 2021 for the symptomatic arrhythmia. She underwent an EP study on 02/13/2022 at [facility], which did not induce any arrhythmias or reveal any accessory pathways. There was concern that she might have a form of SVT that is not readily inducible, such as an atrial tachycardia. An Busco[employer]o implantable loop recorder was placed in 08/2022, with the last interrogation in 09/2024 showing no arrhythmias. The device's battery is now depleted. She has provided EKG strips from her smartwatch that she recorded during symptoms demonstrating SVT. She denies any recent surgeries or procedures other than a section in 04/2023. She has a 1.5-year-old son and a history of five miscarriages. She expresses a desire to have another child but wants to address her cardiac issues first. She became tearful discussing her arrhythmia condition and the impact it is having on her ability to do her job and take care of her family. She is currently taking metoprolol 25 mg, amlodipine, lisinopril, and aspirin at bedtime. She uses gabapentin, Phenergan, and another medication as needed for migraines but reports minimal use due to sedation. She has a known allergy to Compazine, which caused akathisia. I have confirmed and edited as necessary, the PFSH and ROS obtained by others. PAST MEDICAL HISTORY Diagnosis Date Asthma (HCC) Chronic hypertension Clotting disorder (HCC) Fibromyalgia GERD (gastroesophageal reflux disease) Gestational diabetes (HCC) Hiatal hernia Hypothyroidism Implantable loop recorder present Insulin resistance Lupus anticoagulant disorder (HCC) Migraines Nonsustained ventricular tachycardia (HCC) Obesity, Class III, BMI >= 40 07/15/2021 Obstructive sleep apnea syndrome 09/21/2022 Has CPAP machine but currently not using- needs to get full mask, still working on this. Challenged with side sleeping and nasal congestion impacting comfort with mask. Suggest cool mist humidifier. Counsele (more content not included)... Normal [facility] ECG B/O W INTERP (MED OFFICE )on 12-16-2024 Interpretation and review of laboratory results Normal [facility] Sinus rhythm 84 bpm; normal conduction intervals (ND 146 ms, QRS 76 ms); QTc 451 ms; no WPW pattern [facility] L499.0043on 12-04-2024 Trop T High Sen Normal <=14 [facility] Comment on above: Result Comment: Canc elled via OM: MD Ordered Performed By: #### L 501.9520, L501.5200, L100.0100, L500.2500 #### [facility] Laboratory [address] [place], [address] 12 Lead EKGon 12-03-2024 12 Lead EKG [facility] Cardiovascular Services [address] [place] [address] 12 Lead EKG 12/03/242027 MR#: [id number] Acct: [id number] Name: AMBIKA BROWN Rep #: [id number] : 1990 34 From: John Conrad MD Attending Dr: Status: DEP ER Ordering Dr: Silvano Perez DO Date: 12/03/24 Location: ED Sex: F C Admitted: Test Reason : DYSRHYTHMIA Blood Pressure : */* mmHG Vent. Rate : 104 BPM Atrial Rate : 104 BPM P-R Int : 168 ms QRS Dur : 82 ms QT Int : 364 ms P-R-T Axes : 50 20 36 degrees QTcB Int : 478 ms Sinus tachycardia Nonspecific T wave abnormality Abnormal ECG Confirmed by ANAMARIA GALEANO, JOHN ([id number]), general expeditor AMBIKA TELLO ([id number]) on 12/04/2024 8:07:24 AM Referred By: TB Confirmed By: JOHN CONRAD MD 12/04/24806 Date John Conrad MD CC: Dr. Mega Weeks MD; Dr. Silvano Perez, DO Signed Normal [facility] Absolute lymphocyte countOrd ered By: Silvano Perez on 12-03-2024 Lymphocytes Auto (Unsp spec) [#/Vol] 2.94 10*3/uL 0.83-4.51 [facility] Absolute neutrophil countOrd ered By: Silvano Perez on 12-03-2024 Neutrophils (Bld) [#/Vol] 7.3 10*3/uL 2.0-7.7 [facility] Anion gap in Serum or Plasma Ordered By: Silvano Perez on 12-03-2024 Anion gap [Moles/Vol] 12 mmol/L 5-15 [facility] Automated lymphocyte count a s percentage of total leukocytesOrdered By: Silvano Perez on 12-03-2024 Lymphocytes/100 WBC Auto (Unsp spec) 25.9 % 19-41 [facility] BUN/creatinine ratioOrdered By: Silvano Perez on 12-03-2024 Urea nitrogen/Creatinine [Mass ratio] 17.1 mg/mg 10- [facility] Basic Metabolic Profile (BMP )on 12-03-2024 BUN/CRE 17.1 RATIO Normal - [facility] Comment on above: Performed By: #### L 500.2500, L501.4021, L100.0100 ####[facility] [address] [place], [address] Calcium [Mass/Vol] 9.0 mg/dL Normal 7.6-11.0 [facility] Comment on above: Performed By: #### L 500.2500, L501.4021, L100.0100 ####[facility] [address] [place], [address] Chloride [Moles/Vol] 103 mmol/L Normal 98-108 [facility] Comment on above: Performed By: #### L 500.2500, L501.4021, L100.0100 ####[facility] [address] [place], [address] CO2 [Moles/Vol] 23.7 mmol/L Normal 21.0-32.0 [facility] Comment on above: Performed By: #### L 500.2500, L501.4021, L100.0100 ####[facility] [address] [place], [address] Creatinine [Mass/Vol] 0.73 mg/dL Normal 0.70-1.20 [facility] Comment on above: Performed By: #### L 500.2500, L501.4021, L100.0100 ####[facility] [address] [place], [address] ECRCL 172.07 ml/min Normal 50-250 [facility] Comment on above: Performed By: #### L 500.2500, L501.4021, L100.0100 ####[facility] [address] [place], [address] GAP 12 Normal 5-15 [facility] Comment on above: Performed By: #### L 500.2500, L501.4021, L100.0100 ####[facility] [address] [place], [address] GFR/1.73 sq M.predicted among non-blacks MDRD (S/P/Bld) [Vol rate/Area] 112 mL/min/{1.73_m2} Normal >60 [facility] Comment on above: Result Comment: mL/m in/1.73m2 CKD-EPI Creatinine Equation (2020) Performed By: #### L 500.2500, L501.4021, L100.0100 ####[facility] [address] [place], [address] Glucose [Mass/Vol] 98 mg/dL Normal 70-99 [facility] Comment on above: Performed By: #### L 500.2500, L501.4021, L100.0100 ####[facility] [address] [place], [address] Potassium [Moles/Vol] 4.2 mmol/L Normal 3.3-5.1 [facility] Comment on above: Result Comment: Hemo lysis present, Results??could be affected. ?? Performed By: #### L 500.2500, L501.4021, L100.0100 ####[facility] [address] [place], [address] Sodium [Moles/Vol] 138 mmol/L Normal 133-145 [facility] Comment on above: Performed By: #### L 500.2500, L501.4021, L100.0100 ####[facility] [address] [place], [address] Urea nitrogen [Mass/Vol] 12 mg/dL Normal 4-19 [facility] Comment on above: Performed By: #### L 500.2500, L501.4021, L100.0100 ####[facility] [address] [place], [address] Basophil percentageOrdered B y: Silvano Perez on 12-03-2024 Basophils/100 WBC (Bld) 0.4 % 0-1 [facility] CBC W/Diff, Automatedon 11-09 Absolute Lymph 2.94 X10 3/uL Normal 0.83-4.51 [facility] Comment on above: Performed By: #### L 500.2500, L501.4021, L100.0100 ####[facility] [address] [place], [address] Absolute Neut 7.3 X10 3/uL Normal 2.0-7.7 [facility] Comment on above: Performed By: #### L 500.2500, L501.4021, L100.0100 ####[facility] [address] [place], [address] Basophils/100 WBC (Bld) 0.4 % Normal 0-1 [facility] Comment on above: Performed By: #### L 500.2500, L501.4021, L100.0100 ####[facility] [address] [place], [address] Eosinophils/100 WBC (Bld) 2.1 % Normal 0-5 [facility] Comment on above: Performed By: #### L 500.2500, L501.4021, L100.0100 ####[facility] [address] [place], [address] Erythrocyte distribution width (RBC) [Ratio] 15.2 % High 11.6-14.6 [facility] Comment on above: Performed By: #### L 500.2500, L501.4021, L100.0100 ####[facility] [address] [place], [address] Hematocrit (Bld) [Volume fraction] 40.0 % Normal 37-47 [facility] Comment on above: Performed By: #### L 500.2500, L501.4021, L100.0100 ####[facility] [address] [place], [address] Hemoglobin (Bld) [Mass/Vol] 13.0 g/dL Normal 12.0-15.0 [facility] Comment on above: Performed By: #### L 500.2500, L501.4021, L100.0100 ####[facility] [address] [place], [address] IG% 0.300 Normal 0.0-0.9 [facility] Comment on above: Result Comment: IG% - Immature Granulocytes (promyelocytes, myelocytes and metamyelocytes) > 1% indicates that a LEFT SHIFT is Present. Performed By: #### L 500.2500, L501.4021, L100.0100 ####[facility] [address] [place], [address] Lymphocytes/100 WBC (Bld) 25.9 % Normal 19-41 [facility] Comment on above: Performed By: #### L 500.2500, L501.4021, L100.0100 ####[facility] [address] [place], [address] MCH (RBC) [Entitic mass] 25.3 pg Low 27.0-32.0 [facility] Comment on above: Performed By: #### L 500.2500, L501.4021, L100.0100 ####[facility] [address] [place], [address] MCHC (RBC) [Mass/Vol] 32.5 g/dL Normal 32-36 [facility] Comment on above: Performed By: #### L 500.2500, L501.4021, L100.0100 ####[facility] [address] [place], [address] MCV (RBC) [Entitic vol] 78.0 fL Low 81-99 [facility] Comment on above: Performed By: #### L 500.2500, L501.4021, L100.0100 ####[facility] [address] [place], [address] Monocytes/100 WBC (Bld) 6.9 % Normal 0-10 [facility] Comment on above: Performed By: #### L 500.2500, L501.4021, L100.0100 ####[facility] [address] [place], [address] Neutrophils/100 WBC (Bld) 64.4 % Normal 47-70 [facility] Comment on above: Performed By: #### L 500.2500, L501.4021, L100.0100 ####[facility] [address] [place], [address] Nucleated RBC (Bld) [#/Vol] 0.2 10*3/uL Normal 0-5 [facility] Comment on above: Performed By: #### L 500.2500, L501.4021, L100.0100 ####[facility] [address] [place], [address] Platelet mean volume (Bld) [Entitic vol] 11.8 fL Normal 6.2-12.0 [facility] Comment on above: Performed By: #### L 500.2500, L501.4021, L100.0100 ####[facility] [address] [place], [address] Platelets (Bld) [#/Vol] 230 10*3/uL Normal 150-450 [facility] Comment on above: Performed By: #### L 500.2500, L501.4021, L100.0100 ####[facility] [address] [place], [address] RBC (Bld) [#/Vol] 5.13 10*6/uL Normal 4.2-5.4 [facility] Comment on above: Performed By: #### L 500.2500, L501.4021, L100.0100 ####[facility] [address] [place], [address] RDW SD 43.2 fl Normal 35.1-43.9 [facility] Comment on above: Performed By: #### L 500.2500, L501.4021, L100.0100 ####[facility] [address] [place], [address] WBC (Bld) [#/Vol] 11.4 10*3/uL High 4.4-11.0 [facility] Comment on above: Performed By: #### L 500.2500, L501.4021, L100.0100 ####[facility] [address] [place], [address] Carbon dioxide, total [Moles /volume] in Central venous bloodOrdered By: Silvano Perez on 12-03-2024 CO2 [Moles/Vol] 23.7 mmol/L 21.0-32.0 [facility] Chest 1 View (Portable)on Chest 1 View (Portable) [facility] Imaging Services [address] [place] [address] Chest 1 View (Portable) MR#: [id number] Acct: [id number] Name: AMBIKA BROWN Rep #: [id number] : 1990 F 34 From: Loretta Rhodes nd, MD PCP: OUT OF TOWN DOCTOR Status: PRE ER Study: Chest 1 View (Portable) Date of Exam: 12/03/24 Exam# [id number] Ordering Dr: Silvano Perez DO PROCEDURE: CHEST 1 VIEW (PORTABLE) 12/03/2024 REASON FOR EXAM: 34-year-old female, chest pain, syncope, SVT. TECHNIQUE: Frontal view of the chest. COMPARISON: CTA chest 09/17/2024. FINDINGS: Hardware: None. Heart: The heart size is normal. Lungs: No focal consolidation, pleural effusion or pneumothorax. Bones: The bones are unremarkable. RAD/Chest 1 View (Portable) IMPRESSION: No Acute Findings. Reading Location: [facility] CC: Dr. Silvano Perez DO 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: Signed Normal [facility] Chloride assayOrdered By: Zaire Perez on 12-03-2024 Chloride [Moles/Vol] 103 mmol/L 98-108 [facility] Emergency Department Summary on 12-03-2024 Emergency Department Summary [facility] Medical Records Department [address] [place] [address] Emergency Department Summary 12/03/24 MR#: [id number] Acct: [id number] Name: AMBIKA BROWN Rep #: [id number] : 1990 34 From: Silvano Perez DO PCP: Dr. Mega Weeks MD Status:REG ER Location: ED ADDENDUM by Dr. Silvano Perez DO on 12/03/24 at 2315 Of note prior to discharge the patient noted she still felt like her heart may be racing. 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 Discussed the case with cardiology. Spoke with Dr. Conrad. Given the patient's stable vitals, negative workup, nonischemic non-arrhythmogenic EKG, negative troponin, normal electrolytes patient did not require observation. Recommended close outpatient follow-up. The patient has an appointment with electrophysiology in the coming weeks. Strict return precautions were discussed. 12/03/24 2315 Cosigner Signature (if applicable): cc: Dr. Mega Weeks MD * Signed HPI History of Present Illness Chief Complaint: Syncope PFSH [facility] Medical History Hypothyroidism Pancreatitis Cholecystectomy planned Implantable loop recorder present SVT (supraventricular tachycardia) History of lupus anticoagulant disorder History of asthma Insulin resistance Migraines Home Medications ???Medication ???Instructions ???Recorded ???Last Taken ???Type levothyroxine 50 mcg tablet 50 mcg PO DAILY 12/05/22 04/10/23 History (Synthroid) ascorbic acid (vitamin C) 500 mg 500 mg PO DAILY 03/05/24 Unknown H istory tablet aspirin 81 mg chewable tablet 81 mg PO DAILY 03/05/24 Unknown Hi story cholecalciferol (vitamin D3) 25 25 mcg PO DAILY 03/05/24 Unknown H istory mcg (1,000 unit) tablet gabapentin 100 mg capsule 100 mg PO DAILY PRN pain 09/17/24 Unknown History lisinopril 20 mg tablet 20 mg PO BID 09/17/24 Unknown Hist ory methocarbamol 500 mg tablet 500 mg PO Q6H PRN pain 09/17/24 Un known History ondansetron HCl 8 mg tablet mg PO 09/17/24 Unknown History albuterol sulfate 90 mcg/actuation 1 inh inhalation ONCE PRN Unknown History aerosol inhaler amlodipine 5 mg tablet (Norvasc) 5 mg PO QDAY #90 tabs 11/18/24 Unk nown Rx metoprolol tartrate 25 mg tablet 25 mg PO BID #180 tabs 11/18/24 Un known Rx Allergy/AdvReac Type Severity Reaction Status Date / Time diphenhydramine (From Allergy Mild Chest Verified 11/18/24 09:59 Benadryl) tightness prochlorperazine (From Allergy Other Verified 11/18/24 09:59 Compazine) Family History Mother Cancer Thyroid disorder Father Heart disease Early 50s Surgical History History of section History of electrophysiologic study (02/13/22) History of tonsillectomy History of cholecystectomy Social History household members: spouse Smoking Status: Never smoker alcohol intake: never substance use type: does not use caffeine: Yes Type: coffee Number of servings: 2 EXAM Physical Exam Const Vital Signs: 12/03/24 20:22 12/03/24 20:28 12/03/24 20:53 Temperature 98.1 F Temperature Source Oral Pulse Rate 94 Respiratory Rate 19 H Respiratory Effort Normal Respiratory Pattern Normal Blood Pressure 142/78 H Blood Pressure Mean 99 Pulse Ox 95 Oxygen Delivery Method Room Air Room Air 12/03/24 22:21 Temperature Temperature Source Pulse Rate 103 H Respiratory Rate 21 H Respiratory Effort Respiratory Pattern Blood Pressure 155/83 H Blood Pressure Mean 107 Pulse Ox 96 Oxygen Delivery Method Room Air MDM MDM MDM Narrative Medical decision making narrative: HISTORY OF PRESENT ILLNESS: 34-year-old female presents concern for syncope x 2. Per EMS patient was in SVT en route which aborted after vagal maneuvers. The patient states this occurred approximately 4 hours prior to arrival. She states she felt her heart racing and chest tightness and then lost consciousness. She denies any recent vomiting, diarrhea. Denies recent bleeding diathesis. Denies shortness of breath, cough fever chills. Denies leg swelling. The patient denies recent surgery in the last 4 weeks or immobilization in the last 3 days, denies previous diagnosis of DVT or PE, hemoptysis, unilateral leg swelling or malignancy with treatment the last 6 months or palliative. No estrogen use noted. REVIEW OF SYSTEMS: Pertinent positives: Palpitations, chest tightness Pertinent negatives: As per HPI PHYSICAL EXAM: Nursing triage notes reviewed, Vital signs reviewed Constitutional: please (more content not included)... Normal [facility] Eosinophil percentageOrdered By: Silvano Perez on 12-03-2024 Eosinophils/100 WBC (Bld) 2.1 % 0-5 [facility] Erythrocyte distribution wid th ratioOrdered By: Silvano Perez on 12-03-2024 Erythrocyte distribution width (RBC) [Ratio] 15.2 % High 11.6-14.6 [facility] Erythrocyte distribution wid th standard deviationOrdered By: Silvano Perez on 12-03-2024 Erythrocyte distribution width (RBC) [Entitic vol] 43.2 fL 35.1-43.9 [facility] Erythrocyte distribution width (RBC) [Ratio] 43.2 fl 35.1-43.9 [facility] Estimation of creatinine judy aranceOrdered By: Silvano Perez on 12-03-2024 Estimated Creatinine Clearance Calc 172.07 ml/min 50-250 [facility] GFR/1.73 sq M.predicted kwabena g non-blacks MDRD (S/P/Bld) [Vol rate/Area]Ordered By: Silvano Perez on 12-03-2024 Estimated GFR (MDRD) Non-Af Amer 112 >60 [facility] Comment on above: mL/min/1.73m2 CKD-EP I Creatinine Equation (2020) Glomerular filtration rate ( GFR) estimation/1.73 sq m using serum, plasma, or whole bOrdered By: Silvano Perez on 12-03-2024 GFR/1.73 sq M.predicted among non-blacks MDRD (S/P/Bld) [Vol rate/Area] 112 mL/min/{1.73_m2} >60 [facility] Comment on above: mL/min/1.73m2 CKD-EP I Creatinine Equation (2020) Hematocrit Auto (Bld) [Volum e fraction]Ordered By: Silvano Perez on 12-03-2024 Hematocrit (Bld) [Volume fraction] 40.0 % 37-47 [facility] Hemoglobin measurementOrdere d By: Silvano Perez on 12-03-2024 Hemoglobin (Bld) [Mass/Vol] 13.0 g/dL 12.0-15.0 [facility] Immature granulocytes/100 WB C Auto (Bld)Ordered By: Silvano Perez on 12-03-2024 Immature granulocytes/100 WBC (Bld) 0.300 % 0.0-0.9 [facility] Comment on above: IG% - Immature Granu locytes (promyelocytes, myelocytes and metamyelocytes) > 1% indicates that a LEFT SHIFT is Present. L499.0042on 12-03-2024 Trop T High Sen Normal <=14 [facility] Comment on above: Result Comment: Canc ellschuyler via OM: Ordered Performed By: #### L 499.0042 ####[facility] [address] [place], [address] L501.4021on 12-03-2024 Trop T High Sen < 6 Normal <=14 [facility] Comment on above: Performed By: #### L 500.2500, L501.4021, L100.0100 ####[facility] [address] [place], [address] Lymphocytes Auto (Unsp spec) [#/Vol]Ordered By: Silvano Perez on 12-03-2024 Lymphocytes (Bld) [#/Vol] 2.94 10*3/uL 0.83-4.51 [facility] Lymphocytes/100 WBC Auto (Un sp spec)Ordered By: Silvano Perez on 12-03-2024 Lymphocytes/100 WBC (Bld) 25.9 % 19-41 [facility] MCV (mean corpuscular volume ) determinationOrdered By: Silvano Perez on 12-03-2024 MCV (RBC) [Entitic vol] 78.0 fL Low 81-99 [facility] Mean corpuscular hemoglobin (MCH) determinationOrdered By: Silvano Perez on 12-03-2024 MCH (RBC) [Entitic mass] 25.3 pg Low 27.0-32.0 [facility] Mean corpuscular hemoglobin concentration (MCHC) determinationOrdered By: Silvano Perez on 12-03-2024 MCHC (RBC) [Mass/Vol] 32.5 g/dL 32-36 [facility] Mean platelet volume determi nationOrdered By: Silvano Perez on 12-03-2024 Platelet mean volume (Bld) [Entitic vol] 11.8 fL 6.2-12.0 [facility] Monocyte percentageOrdered B y: Silvano Perez on 12-03-2024 Monocytes/100 WBC (Bld) 6.9 % 0-10 [facility] Neutrophil percentageOrdered By: Silvano Perez on 12-03-2024 Neutrophils/100 WBC (Bld) 64.4 % 47-70 [facility] No Panel InformationOrdered By: Silvano Perez on 12-03-2024 Troponin T High Sensitivity < 6 ng/L <14 [facility] Nucleated red blood cell per centageOrdered By: Silvano Perez on 12-03-2024 Nucleated RBC/100 WBC (Bld) [Ratio] 0.2 % 0-5 [facility] Platelet countOrdered By: Zaire Perez on 12-03-2024 Platelets (Bld) [#/Vol] 230 10*3/uL 150-450 [facility] Potassium (Unsp spec) [Mass/ Vol]Ordered By: Silvano Perez on 12-03-2024 Potassium [Moles/Vol] 4.2 mmol/L 3.3-5.1 [facility] Comment on above: Hemolysis present, R esults could be affected. Potassium measurement (mass/ volume)Ordered By: Silvano Perez on 12-03-2024 Potassium (Unsp spec) [Mass/Vol] 4.2 mmol/L 3.3-5.1 [facility] Comment on above: Hemolysis present, R esults could be affected. RBC Auto (Bld) [#/Vol]Ordere d By: Silvano Perez on 12-03-2024 RBC (Bld) [#/Vol] 5.13 10*6/uL 4.2-5.4 [facility] Serum creatinine measurement (mass/volume)Ordered By: Silvano Perez on 12-03-2024 Creatinine [Mass/Vol] 0.73 mg/dL 0.70-1.20 [facility] Serum glucose measurement (m ass/volume)Ordered By: Silvano Perez on 12-03-2024 Glucose [Mass/Vol] 98 mg/dL 70-99 [facility] Serum or plasma calcium prieto urement (mass/volume)Ordered By: Silvano Perez on 12-03-2024 Calcium [Mass/Vol] 9.0 mg/dL 7.6-11.0 [facility] Serum or plasma urea nitroge n measurement (mass/volume)Ordered By: Silvano Perez on 12-03-2024 Urea nitrogen [Mass/Vol] 12 mg/dL 4-19 [facility] Sodium levelOrdered By: Sharon Perez on 12-03-2024 Sodium [Moles/Vol] 138 mmol/L 133-145 [facility] White blood cell (WBC) count Ordered By: Silvano Perez on 12-03-2024 WBC (Bld) [#/Vol] 11.4 10*3/uL High 4.4-11.0 [facility] 12 Lead EKG performed by [facility] on 11-18-2024 12 Lead EKG performed by [address] [address] 12 Lead EKG performed by [facility] 11/18/24 0740 MR#: [id number] Acct: [id number] Name: AMBIKA BROWN Rep #: [id number] : 1990 34 From: Alison Jasso Attending Dr: GIANFRANCO Loyola Status: DEP AMB Ordering Dr: Alison Díaz Date: 11/08 10/04 Location: [facility] Sex: F C Admitted: [facility]/12 Lead EKG performed by [facility] ECG Report Interpretation --Sinus Rhythm - Nonspecific T-abnormality. ABNORMAL Electronically signed on 11/20/2024 at 11:42 by John ConradBrevity Version [id number] 11/20/24 1148 Date Alison MEDEL CC: No Primary Care Physician Date Dictated: 11/18/24739 Date Transcribed: 11/18/24739 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: LEIGHANN Signed Normal [facility] Absolute lymphocyte countOrd ered By: Alison Díaz on 11-18-2024 Lymphocytes Auto (Unsp spec) [#/Vol] 2.12 10*3/uL 0.83-4.51 [facility] Absolute neutrophil countOrd ered By: Alison Díaz on 11-18-2024 Neutrophils (Bld) [#/Vol] 5.9 10*3/uL 2.0-7.7 [facility] Anion gap in Serum or Plasma Ordered By: Alison Díaz on 11-18-2024 Anion gap [Moles/Vol] 12 mmol/L 01-22 [facility] Automated lymphocyte count a s percentage of total leukocytesOrdered By: Alison Díaz on 11-18-2024 Lymphocytes/100 WBC Auto (Unsp spec) 23.9 % - [facility] BUN/creatinine ratioOrdered By: Alison Díaz on 11-18-2024 Urea nitrogen/Creatinine [Mass ratio] 15.7 mg/mg - [facility] Basic Metabolic Profile (BMP )on 11-18-2024 BUN/CRE 15.7 RATIO Normal 06-29 [facility] Comment on above: Performed By: #### L 501.9520, L501.5200, L100.0100, L500.2500 #### [facility] [address] [place], [address] Calcium [Mass/Vol] 8.7 mg/dL Normal 7.6-11.0 [facility] Comment on above: Performed By: #### L 501.9520, L501.5200, L100.0100, L500.2500 #### [facility] [address] [place], [address] Chloride [Moles/Vol] 103 mmol/L Normal 98-108 [facility] Comment on above: Performed By: #### L 501.9520, L501.5200, L100.0100, L500.2500 #### [facility] [address] [place], [address] CO2 [Moles/Vol] 21.0 mmol/L Normal 21.0-32.0 [facility] Comment on above: Performed By: #### L 501.9520, L501.5200, L100.0100, L500.2500 #### [facility] [address] [place], [address] Creatinine [Mass/Vol] 0.64 mg/dL Low 0.70-1.20 [facility] Comment on above: Performed By: #### L 501.9520, L501.5200, L100.0100, L500.2500 #### [facility] [address] [place], [address] GAP 12 Normal 5-15 [facility] Comment on above: Performed By: #### L 501.9520, L501.5200, L100.0100, L500.2500 #### [facility] [address] [place], [address] GFR/1.73 sq M.predicted among non-blacks MDRD (S/P/Bld) [Vol rate/Area] 119 mL/min/{1.73_m2} Normal >60 [facility] Comment on above: Result Comment: mL/m in/1.73m2 CKD-EPI Creatinine Equation (2020) Performed By: #### L 501.9520, L501.5200, L100.0100, L500.2500 #### [facility] [address] [place], [address] Glucose [Mass/Vol] 99 mg/dL Normal 70-99 [facility] Comment on above: Performed By: #### L 501.9520, L501.5200, L100.0100, L500.2500 #### [facility] [address] [place], [address] Potassium [Moles/Vol] 4.1 mmol/L Normal 3.3-5.1 [facility] Comment on above: Performed By: #### L 501.9520, L501.5200, L100.0100, L500.2500 #### [facility] [address] [place], [address] Sodium [Moles/Vol] 137 mmol/L Normal 133-145 [facility] Comment on above: Performed By: #### L 501.9520, L501.5200, L100.0100, L500.2500 #### [facility] [address] [place], [address] Urea nitrogen [Mass/Vol] 10 mg/dL Normal 4-19 [facility] Comment on above: Performed By: #### L 501.9520, L501.5200, L100.0100, L500.2500 #### [facility] [address] [place], [address] Basophil percentageOrdered B y: Alison Díaz on 11-18-2024 Basophils/100 WBC (Bld) 0.3 % 0-1 [facility] CBC W/Diff, Automatedon 11-08 Absolute Lymph 2.12 X10 3/uL Normal 0.83-4.51 [facility] Comment on above: Performed By: #### L 501.9520, L501.5200, L100.0100, L500.2500 #### [facility] [address] [place], [address] Absolute Neut 5.9 X10 3/uL Normal 2.0-7.7 [facility] Comment on above: Performed By: #### L 501.9520, L501.5200, L100.0100, L500.2500 #### [facility] [address] [place], [address] Basophils/100 WBC (Bld) 0.3 % Normal 0-1 [facility] Comment on above: Performed By: #### L 501.9520, L501.5200, L100.0100, L500.2500 #### [facility] [address] [place], [address] Eosinophils/100 WBC (Bld) 2.3 % Normal 0-5 [facility] Comment on above: Performed By: #### L 501.9520, L501.5200, L100.0100, L500.2500 #### [facility] [address] [place], [address] Erythrocyte distribution width (RBC) [Ratio] 15.2 % High 11.6-14.6 [facility] Comment on above: Performed By: #### L 501.9520, L501.5200, L100.0100, L500.2500 #### [facility] [address] [place], [address] Hematocrit (Bld) [Volume fraction] 42.0 % Normal 37-47 [facility] Comment on above: Performed By: #### L 501.9520, L501.5200, L100.0100, L500.2500 #### [facility] [address] [place], [address] Hemoglobin (Bld) [Mass/Vol] 13.4 g/dL Normal 12.0-15.0 [facility] Comment on above: Performed By: #### L 501.9520, L501.5200, L100.0100, L500.2500 #### [facility] [address] [place], [address] IG% 0.500 Normal 0.0-0.9 [facility] Comment on above: Result Comment: IG% - Immature Granulocytes (promyelocytes, myelocytes and metamyelocytes) > 1% indicates that a LEFT SHIFT is Present. Performed By: #### L 501.9520, L501.5200, L100.0100, L500.2500 #### [facility] [address] [place], [address] Lymphocytes/100 WBC (Bld) 23.9 % Normal 19-41 [facility] Comment on above: Performed By: #### L 501.9520, L501.5200, L100.0100, L500.2500 #### [facility] [address] [place], [address] MCH (RBC) [Entitic mass] 24.9 pg Low 27.0-32.0 [facility] Comment on above: Performed By: #### L 501.9520, L501.5200, L100.0100, L500.2500 #### [facility] [address] [place], [address] MCHC (RBC) [Mass/Vol] 31.9 g/dL Low 32-36 [facility] Comment on above: Performed By: #### L 501.9520, L501.5200, L100.0100, L500.2500 #### [facility] [address] [place], [address] MCV (RBC) [Entitic vol] 77.9 fL Low 81-99 [facility] Comment on above: Performed By: #### L 501.9520, L501.5200, L100.0100, L500.2500 #### [facility] [address] [place], [address] Monocytes/100 WBC (Bld) 6.5 % Normal 0-10 [facility] Comment on above: Performed By: #### L 501.9520, L501.5200, L100.0100, L500.2500 #### [facility] [address] [place], [address] Neutrophils/100 WBC (Bld) 66.5 % Normal 47-70 [facility] Comment on above: Performed By: #### L 501.9520, L501.5200, L100.0100, L500.2500 #### [facility] [address] [place], [address] Nucleated RBC (Bld) [#/Vol] 0 10*3/uL Normal 0-5 [facility] Comment on above: Performed By: #### L 501.9520, L501.5200, L100.0100, L500.2500 #### [facility] [address] [place], [address] Platelet mean volume (Bld) [Entitic vol] 11.8 fL Normal 6.2-12.0 [facility] Comment on above: Performed By: #### L 501.9520, L501.5200, L100.0100, L500.2500 #### [facility] [address] [place], [address] Platelets (Bld) [#/Vol] 208 10*3/uL Normal 150-450 [facility] Comment on above: Performed By: #### L 501.9520, L501.5200, L100.0100, L500.2500 #### [facility] [address] [place], [address] RBC (Bld) [#/Vol] 5.39 10*6/uL Normal 4.2-5.4 [facility] Comment on above: Performed By: #### L 501.9520, L501.5200, L100.0100, L500.2500 #### [facility] [address] [place], [address] RDW SD 42.6 fl Normal 35.1-43.9 [facility] Comment on above: Performed By: #### L 501.9520, L501.5200, L100.0100, L500.2500 #### [facility] [address] [place], [address] WBC (Bld) [#/Vol] 8.9 10*3/uL Normal 4.4-11.0 [facility] Comment on above: Performed By: #### L 501.9520, L501.5200, L100.0100, L500.2500 #### [facility] [address] [place], [address] Carbon dioxide, total [Moles /volume] in Central venous bloodOrdered By: Alison Díaz on 11-18-2024 CO2 [Moles/Vol] 21.0 mmol/L 21.0-32.0 [facility] Cardiology Visit Reporton Cardiology Visit Report [facility] [address] [place] [address] OFFICE VISIT Date of Service: 11/18/24 MR#: [id number] Acct: [id number] Name: AMBIKA BROWN Rep #: [id number] : 1990 Provider: GIANFRANCO Reynolds Age/Sex: 34/F Location: [facility] Status: Signed HPI HPI History of Present Illness Details: AMBIKA BROWN, is a 34 F who presents to the office today for a cardiovascular visit. She presented to the hospital in June of 2021with symptoms of palpitations and syncope. She had an episode of syncope in the ER while she was being monitored. She had another episode of syncope while in the PCU. She did have two separate episodes of 2-3 beat run of ventricular tachycardia. She did see Dr. Rock on 12/06/2021 for continued intermittent palpitations with tachycardia. Cardiac monitoring and EKGs during or shortly following episodes have revealed a long RP tachycardia consistent with either sinus tachycardia or atrial tachycardia. Recommendation was to do an EP study with possible ablation. She underwent EP evaluation on 02/13/2022, which was unable to provoke dysrhythmia. Pt did have syncope in March of 2022, she was evaluated at the emergency department 03/22/2022 for syncopal episode. Prior to syncopal episode she noted palpitations and not feeling well. Her EKG on 03/22/2022 showed normal sinus rhythm at a rate of 87 bpm. Her apple watch during time of not feeling well revealed sinus rhythm/sinus tachycardia with infrequent ectopy. She had another episode of syncope a few weeks later. She had a loop recorder placed in 08/2022. Loop recorder interrogation demonstrated 2 questionable atrial fibs episodes but also was a question of sinus with artifact. They were 52 minutes in duration. 2 sinus bradycardia episodes noted. She resumed metoprolol therapy in November 2023. Most recent remote check from 09/2024 on her ILR did not demonstrate any arrhythmias. She does feel that her ILR is not working any longer. She has been having palpitation over the 1-2 weeks where she has been feeling like she might pass out. She feels her heart is beating out of her chest or quivering. It can last for 30 seconds to a few minutes. She has not felt safe with her symptoms driving or working. She has not been ill recently. She has not had any changes with supplements. She has been able to store several of these rhythms on her watch. She did print the strips for me. Her PCP switched her metoprolol to coreg in August for better BP control. Intake Vital Signs 09/17/24 16:14 11/18/24 07:41 Height 5 ft 7 in 5 ft 7 in Weight: 336 lb BMI 52.6 BP 130/88 H Blood Pressure Location Lt brachial Position Sitting Respiration 18 Pulse 82 Pulse Source Monitor Pulse Oximetry (%) 98 Intake Visit Reasons: Atrial fibrillation Industrial Education Instructor Required: No Is patient in pain?: No Allergies diphenhydramine (From Benadryl) Allergy (Mild, Verified 11/18/24 09:59) Chest tightness prochlorperazine (From Compazine) Allergy (Verified 11/18/24 09:59) Other Medications ???Medication ???Instructions ???Recorded ???Confirmed ???Type levothyroxine 50 mcg tablet 50 mcg PO DAILY 12/05/22 11/18/24 History (Synthroid) ascorbic acid (vitamin C) 500 mg 500 mg PO DAILY 03/05/24 11/18/24 History tablet aspirin 81 mg chewable tablet 81 mg PO DAILY 03/05/24 11/18/24 H istory cholecalciferol (vitamin D3) 25 25 mcg PO DAILY 03/05/24 11/18/24 History mcg (1,000 unit) tablet gabapentin 100 mg capsule 100 mg PO DAILY PRN pain 09/17/24 11/18/24 History lisinopril 20 mg tablet 20 mg PO BID 09/17/24 11/18/24 His tory methocarbamol 500 mg tablet 500 mg PO Q6H PRN pain 09/17/24 History ondansetron HCl 8 mg tablet mg PO 09/17/24 11/18/24 History albuterol sulfate 90 mcg/actuation 1 inh inhalation ONCE PRN 11/18/24 History aerosol inhaler amlodipine 5 mg tablet (Norvasc) 5 mg PO QDAY #90 tabs 11/18/2408/04 Rx metoprolol tartrate 25 mg tablet 25 mg PO BID #180 tabs 11/18/24 Rx Ejection fraction %: 50 Have you fallen in the past year?: No PFSH Medical History Hypothyroidism Pancreatitis Cholecystectomy planned Implantable loop recorder present SVT (supraventricular tachycardia) History of lupus anticoagulant disorder History of asthma Insulin resistance Migraines Surgical History History of section History of electrophysiologic study (02/13/22) History of tonsillectomy History of cholecystectomy Family History Mother Cancer Thyroid disorder Father Heart disease Early 50s (more content not included)... Normal [facility] Chloride assayOrdered By: Billie Díaz on 11-18-2024 Chloride [Moles/Vol] 103 mmol/L 98-108 [facility] Eosinophil percentageOrdered By: Alison Díaz on 11-18-2024 Eosinophils/100 WBC (Bld) 2.3 % 0-5 [facility] Erythrocyte distribution wid th ratioOrdered By: Alison Díaz on 11-18-2024 Erythrocyte distribution width (RBC) [Ratio] 15.2 % High 11.6-14.6 [facility] Erythrocyte distribution wid th standard deviationOrdered By: Alison Díaz on 11-18-2024 Erythrocyte distribution width (RBC) [Entitic vol] 42.6 fL 35.1-43.9 [facility] Erythrocyte distribution width (RBC) [Ratio] 42.6 fl 35.1-43.9 [facility] GFR/1.73 sq M.predicted kwabena g non-blacks MDRD (S/P/Bld) [Vol rate/Area]Ordered By: Alison Díaz on 11-18-2024 Estimated GFR (MDRD) Non-Af Amer 119 >60 [facility] Comment on above: mL/min/1.73m2 CKD-EP I Creatinine Equation (2020) Glomerular filtration rate ( GFR) estimation/1.73 sq m using serum, plasma, or whole bOrdered By: Alison Díaz on 11-18-2024 GFR/1.73 sq M.predicted among non-blacks MDRD (S/P/Bld) [Vol rate/Area] 119 mL/min/{1.73_m2} >60 [facility] Comment on above: mL/min/1.73m2 CKD-EP I Creatinine Equation (2020) Hematocrit Auto (Bld) [Volum e fraction]Ordered By: Alison Díaz on 11-18-2024 Hematocrit (Bld) [Volume fraction] 42.0 % 37-47 [facility] Hemoglobin measurementOrdere d By: Alison Díaz on 11-18-2024 Hemoglobin (Bld) [Mass/Vol] 13.4 g/dL 12.0-15.0 [facility] Immature granulocytes/100 WB C Auto (Bld)Ordered By: Alison Díaz on 11-18-2024 Immature granulocytes/100 WBC (Bld) 0.500 % 0.0-0.9 [facility] Comment on above: IG% - Immature Granu locytes (promyelocytes, myelocytes and metamyelocytes) > 1% indicates that a LEFT SHIFT is Present. Lymphocytes Auto (Unsp spec) [#/Vol]Ordered By: Alison Díaz on 11-18-2024 Lymphocytes (Bld) [#/Vol] 2.12 10*3/uL 0.83-4.51 [facility] Lymphocytes/100 WBC Auto (Un sp spec)Ordered By: Alison Díaz on 11-18-2024 Lymphocytes/100 WBC (Bld) 23.9 % 19-41 [facility] MCV (mean corpuscular volume ) determinationOrdered By: Alison Díaz on 11-18-2024 MCV (RBC) [Entitic vol] 77.9 fL Low 81-99 [facility] Magnesiumon 11-18-2024 Magnesium [Mass/Vol] 2.0 mg/dL Normal 1.5-2.2 [facility] Comment on above: Performed By: #### L 501.9520, L501.5200, L100.0100, L500.2500 #### [facility] Laboratory [address] [place], [place], [address] Magnesium (Unsp spec) [Mass/ Vol]Ordered By: Alison Díaz on 11-18-2024 Magnesium [Mass/Vol] 2.0 mg/dL 1.5-2.2 [facility] Magnesium measurement (mass/ volume)Ordered By: Alison Díaz on 11-18-2024 Magnesium (Unsp spec) [Mass/Vol] 2.0 mg/dL 1.5-2.2 [facility] Mean corpuscular hemoglobin (MCH) determinationOrdered By: Alison Díaz on 11-18-2024 MCH (RBC) [Entitic mass] 24.9 pg Low 27.0-32.0 [facility] Mean corpuscular hemoglobin concentration (MCHC) determinationOrdered By: Alison Díaz on 11-18-2024 MCHC (RBC) [Mass/Vol] 31.9 g/dL Low 32-36 [facility] Mean platelet volume determi nationOrdered By: Alison Díaz on 11-18-2024 Platelet mean volume (Bld) [Entitic vol] 11.8 fL 6.2-12.0 [facility] Monocyte percentageOrdered B y: Alison Díaz on 11-18-2024 Monocytes/100 WBC (Bld) 6.5 % 0-10 [facility] Neutrophil percentageOrdered By: Alison Díaz on 11-18-2024 Neutrophils/100 WBC (Bld) 66.5 % 47-70 [facility] Nucleated red blood cell per centageOrdered By: Alison Díaz on 11-18-2024 Nucleated RBC/100 WBC (Bld) [Ratio] 0 % 0-5 [facility] Platelet countOrdered By: Billie Díaz on 11-18-2024 Platelets (Bld) [#/Vol] 208 10*3/uL 150-450 [facility] Potassium (Unsp spec) [Mass/ Vol]Ordered By: Alison Díaz on 11-18-2024 Potassium [Moles/Vol] 4.1 mmol/L 3.3-5.1 [facility] Potassium measurement (mass/ volume)Ordered By: Alison Díaz on 11-18-2024 Potassium (Unsp spec) [Mass/Vol] 4.1 mmol/L 3.3-5.1 [facility] RBC Auto (Bld) [#/Vol]Ordere d By: Alison Díaz on 11-18-2024 RBC (Bld) [#/Vol] 5.39 10*6/uL 4.2-5.4 [facility] Serum creatinine measurement (mass/volume)Ordered By: Alison Díaz on 11-18-2024 Creatinine [Mass/Vol] 0.64 mg/dL Low 0.70-1.20 [facility] Serum glucose measurement (m ass/volume)Ordered By: Alison Díaz on 11-18-2024 Glucose [Mass/Vol] 99 mg/dL 70-99 [facility] Serum or plasma calcium prieto urement (mass/volume)Ordered By: Alison Díaz on 11-18-2024 Calcium [Mass/Vol] 8.7 mg/dL 7.6-11.0 [facility] Serum or plasma urea nitroge n measurement (mass/volume)Ordered By: Alison Díaz on 11-18-2024 Urea nitrogen [Mass/Vol] 10 mg/dL 4-19 [facility] Sodium levelOrdered By: Destin Díaz on 11-18-2024 Sodium [Moles/Vol] 137 mmol/L 133-145 [facility] TSH DL <= 0.005 mIU/L QnOrde red By: Alison Díaz on 11-18-2024 Thyroid Stimulating Hormone (TSH) 2.260 uIU/mL 0.300-4.200 [facility] TSH Qn 2.260 uIU/mL 0.300-4.200 [facility] Thyroid Stim Hormone (TSH)on 11-18-2024 TSH 2.260 uIU/mL Normal 0.300-4.200 [facility] Comment on above: Performed By: #### L 501.9520, L501.5200, L100.0100, L500.2500 #### [facility] Laboratory [address] [place], [address] White blood cell (WBC) count Ordered By: Alison Díaz on 11-18-2024 WBC (Bld) [#/Vol] 8.9 10*3/uL 4.4-11.0 [facility] 12 Lead EKGon 09-17-2024 12 Lead EKG [facility] Cardiovascular Services [address] [place] [address] 12 Lead EKG 09/17/24 1759 MR#: [id number] Acct: [id number] Name: AMBIKA BROWN Rep #: [id number] : 1990 34 From: Cesar Sanchez MD Attending Dr: Status: DEP ER Ordering Dr: Steve Oliveira DO Date: 5 Location: ED Sex: F C Admitted: Test Reason : Blood Pressure : */* mmHG Vent. Rate : 82 BPM Atrial Rate : 82 BPM P-R Int : 180 ms QRS Dur : 82 ms QT Int : 412 ms P-R-T Axes : 61 26 64 degrees QTcB Int : 481 ms Sinus rhythm with occasional Premature ventricular complexes Prolonged QT Abnormal ECG Confirmed by Cesar Sanchez ([id number]), general expeditor AMBIKA TELLO ([id number]) on 09/18/2024 10:20:08 AM Referred By: Confirmed By: Cesar Sanchez 09/18/24 1020 Date Cesar Sanchez MD CC: Dr. Steve Oliveira, DO; No Primary Care Physician Signed Normal [facility] Absolute neutrophil countOrd ered By: Steve Oliveira on 09-17-2024 Neutrophils (Bld) [#/Vol] 6.2 10*3/uL 2.0-7.7 [facility] Basic Metabolic Profile (BMP )on 09-17-2024 BUN/CRE 18.1 RATIO Normal 10-20 [facility] Comment on above: Order Comment: 'TROP ' Serial specimen #1, #2 or #3: 1 Performed By: #### L 501.4020, L100.0100, L500.2500, L700.6800, L300.8000 ####[facility] [address] [place], [address] CA,Total 8.6 mg/dL Normal 8.5-10.1 [facility] Comment on above: Order Comment: 'TROP ' Serial specimen #1, #2 or #3: 1 Performed By: #### L 501.4020, L100.0100, L500.2500, L700.6800, L300.8000 ####[facility] [address] [place], [address] Chloride [Moles/Vol] 106 mmol/L Normal 98-107 [facility] Comment on above: Order Comment: 'TROP ' Serial specimen #1, #2 or #3: 1 Performed By: #### L 501.4020, L100.0100, L500.2500, L700.6800, L300.8000 ####[facility] [address] [place], [address] CO2 [Moles/Vol] 26.0 mmol/L Normal 21.0-32.0 [facility] Comment on above: Order Comment: 'TROP ' Serial specimen #1, #2 or #3: 1 Performed By: #### L 501.4020, L100.0100, L500.2500, L700.6800, L300.8000 ####[facility] [address] [place], [address] Creatinine [Mass/Vol] 0.83 mg/dL Normal 0.55-1.02 [facility] Comment on above: Order Comment: 'TROP ' Serial specimen #1, #2 or #3: 1 Result Comment: The validity of the calculated GFR GFRAA in patients over 70 years has not been determined. Clinical correlation is essential. Performed By: #### L 501.4020, L100.0100, L500.2500, L700.6800, L300.8000 ####[facility] [address] [place], [address] ECRCL 150.43 ml/min Normal [facility] Comment on above: Order Comment: 'TROP ' Serial specimen #1, #2 or #3: 1 Performed By: #### L 501.4020, L100.0100, L500.2500, L700.6800, L300.8000 ####[facility] [address] [place], [address] EST GFR - AA 101 mL/min Normal >60 [facility] Comment on above: Order Comment: 'TROP ' Serial specimen #1, #2 or #3: 1 Result Comment: Afri can Jamaican GFR Calc Performed By: #### L 501.4020, L100.0100, L500.2500, L700.6800, L300.8000 ####[facility] [address] [place], [address] GAP 6 Normal 5-15 [facility] Comment on above: Order Comment: 'TROP ' Serial specimen #1, #2 or #3: 1 Performed By: #### L 501.4020, L100.0100, L500.2500, L700.6800, L300.8000 ####[facility] [address] [place], [address] GFR/1.73 sq M.predicted among non-blacks MDRD (S/P/Bld) [Vol rate/Area] 84 mL/min/{1.73_m2} Normal >60 [facility] Comment on above: Order Comment: 'TROP ' Serial specimen #1, #2 or #3: 1 Result Comment: Non- GFR Calc Performed By: #### L 501.4020, L100.0100, L500.2500, L700.6800, L300.8000 ####[facility] [address] [place], [address] Glucose [Mass/Vol] 101 mg/dL Normal 74-106 [facility] Comment on above: Order Comment: 'TROP ' Serial specimen #1, #2 or #3: 1 Result Comment: Fast ing Glucose result from 100 to 125 mg/dL suggests IMPAIRED HOMEOSTASIS per A.D.A. criteria. Performed By: #### L 501.4020, L100.0100, L500.2500, L700.6800, L300.8000 ####[facility] [address] [place], [address] Potassium [Moles/Vol] 3.5 mmol/L Normal 3.5-5.1 [facility] Comment on above: Order Comment: 'TROP ' Serial specimen #1, #2 or #3: 1 Performed By: #### L 501.4020, L100.0100, L500.2500, L700.6800, L300.8000 ####[facility] [address] [place], [address] Sodium [Moles/Vol] 139 mmol/L Normal 136-145 [facility] Comment on above: Order Comment: 'TROP ' Serial specimen #1, #2 or #3: 1 Performed By: #### L 501.4020, L100.0100, L500.2500, L700.6800, L300.8000 ####[facility] [address] [place], [address] Urea nitrogen [Mass/Vol] 15 mg/dL Normal 7-18 [facility] Comment on above: Order Comment: 'TROP ' Serial specimen #1, #2 or #3: 1 Performed By: #### L 501.4020, L100.0100, L500.2500, L700.6800, L300.8000 ####[facility] [address] [place], [address] Basophil percentageOrdered B y: Steve Oliveira on 09-17-2024 Basophils/100 WBC (Bld) 0.3 % 0-1 [facility] Beta HCG ( test) Ql Ordered By: Steve Oliveira on 09-17-2024 Serum Test, Qualitative Negative [facility] Blood urea nitrogen (BUN)/cr eatinine ratioOrdered By: Steve Oliveira on 09-17-2024 Urea nitrogen/Creatinine [Mass ratio] 18.1 mg/mg 10-20 [facility] CBC W/Diff, Automatedon Absolute Lymph 2.79 X10 3/uL Normal 0.83-4.51 [facility] Comment on above: Performed By: #### L 501.4020, L100.0100, L500.2500, L700.6800, L300.8000 ####[facility] [address] [place], [address] Absolute Neut 6.2 X10 3/uL Normal 2.0-7.7 [facility] Comment on above: Performed By: #### L 501.4020, L100.0100, L500.2500, L700.6800, L300.8000 ####[facility] [address] [place], [address] Basophils/100 WBC (Bld) 0.3 % Normal 0-1 [facility] Comment on above: Performed By: #### L 501.4020, L100.0100, L500.2500, L700.6800, L300.8000 ####[facility] [address] [place], [address] Eosinophils/100 WBC (Bld) 2.7 % Normal 0-5 [facility] Comment on above: Performed By: #### L 501.4020, L100.0100, L500.2500, L700.6800, L300.8000 ####[facility] [address] [place], [address] Erythrocyte distribution width (RBC) [Ratio] 15.8 % High 11.6-14.6 [facility] Comment on above: Performed By: #### L 501.4020, L100.0100, L500.2500, L700.6800, L300.8000 ####[facility] [address] [place], [address] Hematocrit (Bld) [Volume fraction] 40.0 % Normal 37-47 [facility] Comment on above: Performed By: #### L 501.4020, L100.0100, L500.2500, L700.6800, L300.8000 ####[facility] [address] [place], [address] Hemoglobin (Bld) [Mass/Vol] 12.7 g/dL Normal 12.0-15.0 [facility] Comment on above: Performed By: #### L 501.4020, L100.0100, L500.2500, L700.6800, L300.8000 ####[facility] [address] [place], [address] IG% 0.400 Normal 0.0-0.9 [facility] Comment on above: Result Comment: IG% - Immature Granulocytes (promyelocytes, myelocytes and metamyelocytes) > 1% indicates that a LEFT SHIFT is Present. Performed By: #### L 501.4020, L100.0100, L500.2500, L700.6800, L300.8000 ####[facility] [address] [place], [address] Lymphocytes/100 WBC (Bld) 28.0 % Normal 19-41 [facility] Comment on above: Performed By: #### L 501.4020, L100.0100, L500.2500, L700.6800, L300.8000 ####[facility] [address] [place], [address] MCH (RBC) [Entitic mass] 24.7 pg Low 27.0-32.0 [facility] Comment on above: Performed By: #### L 501.4020, L100.0100, L500.2500, L700.6800, L300.8000 ####[facility] [address] [place], [address] MCHC (RBC) [Mass/Vol] 31.8 g/dL Low 32-36 [facility] Comment on above: Performed By: #### L 501.4020, L100.0100, L500.2500, L700.6800, L300.8000 ####[facility] [address] [place], [address] MCV (RBC) [Entitic vol] 77.7 fL Low 81-99 [facility] Comment on above: Performed By: #### L 501.4020, L100.0100, L500.2500, L700.6800, L300.8000 ####[facility] [address] [place], [address] Monocytes/100 WBC (Bld) 6.1 % Normal 0-10 [facility] Comment on above: Performed By: #### L 501.4020, L100.0100, L500.2500, L700.6800, L300.8000 ####[facility] [address] [place], [address] Neutrophils/100 WBC (Bld) 62.5 % Normal 47-70 [facility] Comment on above: Performed By: #### L 501.4020, L100.0100, L500.2500, L700.6800, L300.8000 ####[facility] [address] [place], [address] Nucleated RBC (Bld) [#/Vol] 0 10*3/uL Normal 0-5 [facility] Comment on above: Performed By: #### L 501.4020, L100.0100, L500.2500, L700.6800, L300.8000 ####[facility] [address] [place], [address] Platelet mean volume (Bld) [Entitic vol] 12.1 fL High 6.2-12.0 [facility] Comment on above: Performed By: #### L 501.4020, L100.0100, L500.2500, L700.6800, L300.8000 ####[facility] [address] [place], [address] Platelets (Bld) [#/Vol] 172 10*3/uL Normal 150-450 [facility] Comment on above: Performed By: #### L 501.4020, L100.0100, L500.2500, L700.6800, L300.8000 ####[facility] [address] [place], [address] RBC (Bld) [#/Vol] 5.15 10*6/uL Normal 4.2-5.4 [facility] Comment on above: Performed By: #### L 501.4020, L100.0100, L500.2500, L700.6800, L300.8000 ####[facility] [address] [place], [address] RDW SD 44.8 fl High 35.1-43.9 [facility] Comment on above: Performed By: #### L 501.4020, L100.0100, L500.2500, L700.6800, L300.8000 ####[facility] [address] [place], [place], [address] WBC (Bld) [#/Vol] 10.0 10*3/uL Normal 4.4-11.0 [facility] Comment on above: Performed By: #### L 501.4020, L100.0100, L500.2500, L700.6800, L300.8000 ####[facility] [address] [place], [address] CNOVon 09-17-2024 CNOV Office Visit ([facility] ) -------- AMBIKA BROWN ([id number]) 1990 F T Date Time Provider Department 09/17/24 3:00 PM CECIL HAHN [facility] During your visit today, we recorded the following information about you: Temperature Pulse Respiration Blood pressure 98.5 degrees 76/minute 20/minute 128/88 Weight 154.8 kg Cecil Hahn APRN.SCHEDULE CHECKER 09/17/2024 3:45 PM Signed Subjective HPI Nontoxic-appearing female presents urgent care chief complaint cough shortness of breath chest discomfort. Patient states has had a sore throat and chest congestion. Presents today for evaluation. History of asthma. Has used asthma medications does not help. States some shortness of breath with walking. 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 Denies any fevers vomiting abdominal pain. Denies chance . Past medical history prescription medications allergies reviewed. .Patient presents with: Chest Congestion: Chest pain, sob x 5 days PAST MEDICAL HISTORY Diagnosis Date Asthma Chronic hypertension Clotting disorder (HCC) Fibromyalgia GERD (gastroesophageal reflux disease) Gestational diabetes Hiatal hernia Insulin resistance Lupus anticoagulant disorder (HCC) Migraines Nonsustained ventricular tachycardia (HCC) Obesity, Class III, BMI >= 40 07/15/2021 Palpitations Paroxysmal supraventricular tachycardia (HCC) Pre-eclampsia Syncope Thyroid disease PAST SURGICAL HISTORY Procedure Laterality Date DELIVERY ONLY 05/09/2023 CHOLECYSTECTOMY 2014 DANDC, DIAG AND/OR THERAPEUTIC 2018 EP STUDY 02/13/2022 comprehensive EP study; normal study, no accessory pathways; +dual AV azra pathways but no inducible SVT; CCAG Dr. Rock ORAL SURGERY PROCEDURE 2009 wisdom teeth TONSILLECTOMY HX 2005 ALLERGIES Prochlorperazine and Diphenhydramine MEDICATIONS methocarbamol (ROBAXIN) 500 mg tabletTake 1 tablet (500 mg) by mouth four times a day until headache free for 24 hours or take for full 5 days.Disp: 20 tabletRfl: 0 carvedilol (COREG) 3.125 mg tabletTake 3.125 mg by mouth two times a day with meals.Disp: Rfl: gabapentin (NEURONTIN) 100 mg capsuleTake 100 mg by mouth as needed.Disp: Rfl: ondansetron (ZOFRAN) 8 mg tabletFOR NAUSEA. Take on at onset of nausea or migraine,may repeat dose in 8 hours if needed.Disp: 20 tabletRfl: 4 naproxen (NAPROSYN) 500 mg tabletTake 1 tablet by mouth two times a day as needed for pain.Disp: 60 tabletRfl: 3 levothyroxine (SYNTHROID) 50 mcg tabletTake 50 mcg by mouth every morning. Take On an Empty StomachDisp: Rfl: aspirin, enteric coated (ASPIRIN, ENTERIC COATED) 81 mg EC tabletTake 81 mg by mouth daily at bedtime. Disp: Rfl: promethazine (PHENERGAN) 25 mg tablet1/2 to 1 po q8h prn headache or nauseaDisp: 45 tabletRfl: 11 cholecalciferol, vitamin D3, (VITAMIN D3 ORAL)Take by mouth.Disp: Rfl: PNV/FERROUS SULFATE/FOLIC ACID ( MULTIVIT WITH IRON ORAL)Take by mouth daily at bedtime. Disp: Rfl: albuterol HFA (PROVENTIL HFA, VENTOLIN HFA) 90 mcg/actuation inhalerInhale 2 Puffs as instructed every 4 hours as needed for Wheezing/Shortness of Breath.Disp: Rfl: norethindrone (AYGESTIN) 5 mg tablet1 tab 3x/day until bleeding stops. 1 tab 2x/day x 2 days. 1 tab daily x 5 daysDisp: 35 tabletRfl: 0 (Patient not taking: Reported on 09/17/2024) metoprolol tartrate, short acting, (LOPRESSOR) 50 mg tabletTake 1 tablet by mouth two times a day.Disp: 60 tabletRfl: 0 FAMILY HISTORY Problem Relation Age of Onset Hypothyroidism Mother Cancer Mother glioblastoma Hyperlipidemia Father Hypertension Father Asthma Sister Migraines Sister Bipolar disorder Sister No Known Problems Brother No Known Problems Brother Diabetes Maternal Grandmother Diabetes Maternal Grandfather Stroke Paternal Grandmother other (COVID-19) Paternal Grandmother Heart disease Paternal Grandfather had two open heart surgeries Social History Tobacco Use Smoking status: Never Smokeless tobacco: Never Vaping Use Vaping status: Never Used Substance Use Topics Alcohol use: Never Drug use: Never BP 128/88 Pulse 76 Temp 36.9 ?C (98.5 ?F) Resp 20 Wt (!) 154.8 kg (341 lb 4.4 oz) LMP 07/29/2024 (Approximate) SpO2 96% BMI 53.45 kg/m? Review of Systems Constitutional: Negative for chills, fever and malaise/fatigue. HENT: Negative for congestion, ear discharge, ear pain, sinus pain and sore throat. Eyes: Negative for blurred vision, pain, discharge and redness. Respiratory: Positive for cough and shortness of breath. Negative for hemoptysis, sputum production, wheezing and stridor. Cardiovascular: Positive for chest pain. Gastrointestinal: Negative for abdominal pain, diarrhea, nausea and vomiting. Musculoskeletal: Negative for myalgias. Skin: Negative for itching and rash. Neurological: Negative for dizziness and headaches. Objec (more content not included)... Normal [facility] CTA Chest W/WO Contraston CTA Chest W/WO Contrast [facility] Imaging Services [address] [place], [place] [address] CTA Chest W/WO Contrast MR#: [id number] Acct: [id number] Name: AMBIKA BROWN Rep #: [id number] : 1990 F 34 From: Jonathan cadena DO PCP: Care Physician,No Primary Status: REG ER Study: CTA Chest W/WO Contrast Date of Exam: 09/17/24 Exam# [id number] Ordering Dr: Steve Oliveira DO [id number] EXAM: CT ANGIOGRAPHY CHEST WITHOUT AND WITH INTRAVENOUS CONTRAST CLINICAL INDICATION: Assess for PE TECHNIQUE: Helically acquired angiography images were obtained of the chest without and with intravenous contrast. This CT exam was performed using one or more of the following dose reduction techniques: automated exposure control, adjustment of the mA and/or kV according to patient size, and/or use of iterative reconstruction technique. MIP reconstructed images were created and reviewed. CONTRAST: IV 100mL [id number] COMPARISON: Chest radiograph, 09/17/2024 FINDINGS: PULMONARY ARTERIES: No significant abnormality. Normal in caliber. No evidence of pulmonary embolism. AORTA: No significant abnormality. Normal in caliber. No evidence of dissection. GREAT VESSELS OF AORTIC ARCH: No significant abnormality. Normal in caliber. No evidence of dissection. LUNGS AND PLEURAL SPACES: No significant abnormality. No mass. No consolidation or edema. No pleural effusion or thickening. No pneumothorax. HEART: No significant abnormality. Heart size is normal. No pericardial effusion. No significant coronary artery calcifications. MEDIASTINUM: No significant abnormality. No mediastinal or hilar adenopathy. Esophagus is unremarkable. No hiatal hernia. THYROID: No significant abnormality. No thyroid lesions. BONES/JOINTS: Degenerative changes of the axial and appendicular skeletal structures. No suspicious lytic or blastic abnormality. GALLBLADDER AND BILE DUCTS: Status post cholecystectomy. CT/CTA Chest W/WO Contrast IMPRESSION: No acute findings in the visualized arteries of the chest. Electronically Signed: Jonathan Kay DO at 20:58 EST , CC: Dr. 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: Signed Normal [facility] Carbon dioxide measurementOr dered By: Steve Oliveira on 09-17-2024 CO2 [Moles/Vol] 26.0 mmol/L 21.0-32.0 [facility] Chest PA and Lateralon 09-17 Chest PA and Lateral [facility] Imaging Services [address] [place], [place] [address] Chest PA and Lateral MR#: [id number] Acct: [id number] Name: AMBIKA BROWN Rep #: [id number] : 1990 F 34 From: Anselmo connors MD PCP: Care Physician,No Primary Status: REG ER Study: Chest PA and Lateral Date of Exam: 09/17/24 Exam# [id number] Ordering Dr: Steve Oliveira DO [id number] INDICATION: Cough EXAMINATION/TECHNIQUE: X-RAY - XR Chest 2 Views COMPARISON: None. FINDINGS: The lungs are clear. The cardiomediastinal silhouette is unremarkable. No pleural effusion or pneumothorax. No acute osseous abnormalities. RAD/Chest PA and Lateral IMPRESSION: No acute radiographic abnormalities. Electronically Signed: Anselmo Diaz MD at 19:08 EST , CC: Dr. 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: Signed Normal [facility] Chloride measurementOrdered By: Steve Oliveira on 09-17-2024 Chloride [Moles/Vol] 106 mmol/L 98-107 [facility] D-Dimer Quantitative (DVT/PE )on 09-17-2024 D-DIMER QUANT 0.33 FEU/ug/m Normal 0.27-0.49 [facility] Comment on above: Result Comment: NORM AL D-Dimer level (<0.50) indicates no DVT or PE. Performed By: #### L 501.4020, L100.0100, L500.2500, L700.6800, L300.8000 ####[facility] [id number] [place], [address] D-dimer measurement for deep venous thrombosisOrdered By: Steve Oliveira on 09-17-2024 D-Dimer Quantitative (PE/DVT) 0.33 FEU/ug/m 0.27-0.49 [facility] Comment on above: NORMAL D-Dimer level (<0.50) indicates no DVT or PE. Emergency Department Summary on 09-17-2024 Emergency Department Summary [facility] Medical Records Department [address] [place] [address] Emergency Department Summary 09/17/24 MR#: [id number] Acct: [id number] Name: AMBIKA BROWN Rep #: [id number] : 1990 34 From: Steve Oliveira DO PCP: Care Physician,No Primary Status:DEP ER Location: ED HPI History of Present Illness Chief Complaint: Chest Other Narrative Narrative: Chief complaint and HPI: URI type symptoms and shortness of breath. 34-year-old female with past medical history of SVT with implantable loop recorder, HTN, lupus anticoagulant disorder presents for evaluation of URI type symptoms and shortness of breath. Associated symptom is congestion and right-sided chest pain with deep inspiration. Chest pain described as sharp. Patient went to an urgent care prior to arrival for her symptoms and was referred to the emergency room for further workup. Patient states she has a mild case of asthma in which she uses a as needed albuterol. No maintenance inhaler. Patient denies any fever, chills, abdominal pain, nausea, vomiting, dysuria. Patient states that she is actively trying to get and therefore there is a chance she could be . States she supposed be on aspirin for her lupus anticoagulant disorder but is currently not taking it. No history of DVT or PE. Denies recent trauma or surgery, exogenous estrogen use, unilateral leg swelling, known malignancy, trave. Review of systems: See HPI Medications: As listed on the chart Allergies: As listed on the chart PFSH: Per chart Vital signs: As listed on the chart. Reviewed. Physical exam: Gen: A O x3, NAD Head: Normocephalic, atraumatic Eyes: No sclera icterus, conjunctiva clear, PERRL, EOMI ENT: Moist mucous membranes, positive congestion Neck: Trachea midline, No JVD, Full ROM, No meningismus CV: RRR, no murmurs, no peripheral edema Resp: Lungs diminished in the bilateral bases, few expiratory wheezes GI: Abd soft, non-distended, non-tender, no r/r/g Musc: Full ROM, no deformity Skin: Warm, dry, no rash Neuro: Alert, oriented, grossly intact, sensation intact Psych: Cooperative, appropriate mood and affect [facility] Medical History Hypothyroidism Pancreatitis Cholecystectomy planned Implantable loop recorder present SVT (supraventricular tachycardia) History of lupus anticoagulant disorder History of asthma Insulin resistance Migraines Home Medications ???Medication ???Instructions ???Recorded ???Last Taken ???Type levothyroxine 50 mcg tablet 50 mcg PO DAILY 12/05/22 04/10/23 History (Synthroid) ascorbic acid (vitamin C) 500 mg 500 mg PO DAILY 03/05/24 Unknown History tablet aspirin 81 mg chewable tablet 81 mg PO DAILY 03/05/24 Unknown History cholecalciferol (vitamin D3) 25 25 mcg PO DAILY 03/05/24 Unknown History mcg (1,000 unit) tablet benzonatate 100 mg capsule 100 mg PO TID PRN cough 5 days #15 09/17/24 Unknown Rx caps gabapentin 100 mg capsule 100 mg PO DAILY PRN pain 09/17/24 Unknown History lisinopril 20 mg tablet 20 mg PO BID 09/17/24 Unknown History methocarbamol 500 mg tablet 500 mg PO Q6H PRN pain 09/17/24 Unknown History norethindrone acetate 5 mg tablet 5 mg PO 09/17/24 Unknown History ondansetron HCl 8 mg tablet mg PO 09/17/24 Unknown History prednisone 20 mg tablet 40 mg (2 x 20 mg) PO DAILY 5 days 09/17/24 Unknown Rx #10 tabs promethazine 50 mg tablet 50 mg PO TID 09/17/24 Unknown History Allergy/AdvReac Type Severity Reaction Status Date / Time diphenhydramine (From Allergy Mild Chest Verified 09/17/24 16:14 Benadryl) tightness prochlorperazine (From Allergy Other Verified 09/17/24 16:14 Compazine) Family History Mother Cancer Thyroid disorder Father Heart disease Early 50s Surgical History History of section History of electrophysiologic study (02/13/22) History of tonsillectomy History of cholecystectomy Social History household members: spouse Smoking Status: Never smoker alcohol intake: never substance use type: does not use caffeine: Yes Type: coffee Number of servings: 2 EXAM Physical Exam Const Vital Signs: 09/17/24 16:14 09/17/24 16:41 09/17/24 16:41 Temperature 98.4 F Temperature Source Oral Pulse Rate 96 Respiratory Rate 24 H Respiratory Effort Normal Non-Labored Normal Non-Labored Respiratory Pattern Normal Normal Blood Pressure 157/85 H Blood Pressure Mean 109 Pulse Ox 99 Oxygen Delivery Method Room Air 09/17/24 16:45 09/17/24 18:09 09/17/24 18:25 Temperature 98.4 F Temperature Source Oral Pulse (more content not included)... Normal [facility] Eosinophil percentageOrdered By: Steve Oliveira on 09-17-2024 Eosinophils/100 WBC (Bld) 2.7 % 0-5 [facility] Erythrocyte distribution wid th ratioOrdered By: Steve Oliveira on 09-17-2024 Erythrocyte distribution width (RBC) [Ratio] 15.8 % High 11.6-14.6 [facility] Erythrocyte distribution wid th standard deviationOrdered By: Steve Patel on 09-17-2024 Erythrocyte distribution width (RBC) [Entitic vol] 44.8 fL High 35.1-43.9 [facility] Estimated glomerular filtrat ion rate (GFR) AmericanOrdered By: Steve Oliveira on 09-17-2024 Estimated GFR (MDRD) Amer 101 mL/min >60 [facility] Comment on above: GFR Calc Estimation of creatinine judy aranceOrdered By: Steve Oliveira on 09-17-2024 Estimated Creatinine Clearance Calc 150.43 ml/min [facility] Glomerular filtration rate ( GFR) estimationOrdered By: Steve Oliveira on 09-17-2024 Estimated GFR (MDRD) Non-Af Amer 84 mL/min >60 [facility] Comment on above: Non- GFR Calc Glucose measurementOrdered B y: Steve BrownMuriel on 09-17-2024 Glucose [Mass/Vol] 101 mg/dL 74-106 [facility] Comment on above: Fasting Glucose resu lt from 100 to 125 mg/dL suggests IMPAIRED HOMEOSTASIS per A.D.A. criteria. Hematocrit Auto (Bld) [Volum e fraction]Ordered By: Stevejohnny Oliveira on 09-17-2024 Hematocrit (Bld) [Volume fraction] 40.0 % 37-47 [facility] Hemoglobin measurementOrdere d By: Stevejohnny OlivarezJorge on 09-17-2024 Hemoglobin (Bld) [Mass/Vol] 12.7 g/dL 12.0-15.0 [facility] Immature granulocytes/100 WB C Auto (Bld)Ordered By: Steve Oliveira on 09-17-2024 Immature granulocytes/100 WBC (Bld) 0.400 % 0.0-0.9 [facility] Comment on above: IG% - Immature Granu locytes (promyelocytes, myelocytes and metamyelocytes) > 1% indicates that a LEFT SHIFT is Present. L501.4020on 09-17-2024 TROPONIN-I HS 6 pg/mL Normal 3.0-54.0 [facility] Comment on above: Order Comment: 'TROP ' Serial specimen #1, #2 or #3: 1 Result Comment: Plea se Note: New Test Units and Gender Specific Reference Ranges. For more information see Policy Stat Procedure [place] High Sensitivity Troponin (TNIH) and attachments. Performed By: #### L 501.4020, L100.0100, L500.2500, L700.6800, L300.8000 ####[facility] [id number] [place], [address] Lymphocytes Auto (Unsp spec) [#/Vol]Ordered By: Steve Oliveira on 09-17-2024 Lymphocytes (Bld) [#/Vol] 2.79 10*3/uL 0.83-4.51 [facility] Lymphocytes/100 WBC Auto (Un sp spec)Ordered By: Steve Oliveira on 09-17-2024 Lymphocytes/100 WBC (Bld) 28.0 % 19-41 [facility] MCV (mean corpuscular volume ) determinationOrdered By: Steve Oliveira on 09-17-2024 MCV (RBC) [Entitic vol] 77.7 fL Low 81-99 [facility] Mean corpuscular hemoglobin (MCH) determinationOrdered By: Steve Oliveira on 09-17-2024 MCH (RBC) [Entitic mass] 24.7 pg Low 27.0-32.0 [facility] Mean corpuscular hemoglobin concentration (MCHC) determinationOrdered By: Steve Oliveira on 09-17-2024 MCHC (RBC) [Mass/Vol] 31.8 g/dL Low 32-36 [facility] Mean platelet volume determi nationOrdered By: Steve Oliveira on 09-17-2024 Platelet mean volume (Bld) [Entitic vol] 12.1 fL High 6.2-12.0 [facility] Monocyte percentageOrdered B y: Steve Oliveira on 09-17-2024 Monocytes/100 WBC (Bld) 6.1 % 0-10 [facility] Neutrophil percentageOrdered By: Steve Oliveira on 09-17-2024 Neutrophils/100 WBC (Bld) 62.5 % 47-70 [facility] Nucleated red blood cell per centageOrdered By: Steve Oliveira on 09-17-2024 Nucleated RBC/100 WBC (Bld) [Ratio] 0 % 0-5 [facility] Platelet countOrdered By: Arie Oliveira on 09-17-2024 Platelets (Bld) [#/Vol] 172 10*3/uL 150-450 [facility] Potassium measurementOrdered By: Steve Oliveira on 09-17-2024 Potassium [Moles/Vol] 3.5 mmol/L 3.5-5.1 [facility] ,Serum,hCG Quali.on 09-17-2024 HCG, SERUM QUAL Negative Normal [facility] Comment on above: Performed By: #### L 501.4020, L100.0100, L500.2500, L700.6800, L300.8000 ####[facility] [id number] [place], [address] RBC Auto (Bld) [#/Vol]Ordere d By: Steve Oliveira on 09-17-2024 RBC (Bld) [#/Vol] 5.15 10*6/uL 4.2-5.4 [facility] Serum anion gap measurementO rdered By: Steve Oliveira on 09-17-2024 Anion gap [Moles/Vol] 6 mmol/L 5-15 [facility] Serum or plasma calcium prieto urement (mass/volume)Ordered By: Steve Patel on 09-17-2024 Calcium [Mass/Vol] 8.6 mg/dL 8.5-10.1 [facility] Serum or plasma creatinine m easurement (mass/volume)Ordered By: Steve Patel on 09-17-2024 Creatinine [Mass/Vol] 0.83 mg/dL 0.55-1.02 [facility] Comment on above: The validity of the calculated GFR & GFRAA in patients over 70 years has not been determined. Clinical correlation is essential. Serum or plasma urea nitroge n measurement (mass/volume)Ordered By: Steve Oliveira on 09-17-2024 Urea nitrogen [Mass/Vol] 15 mg/dL 7-18 [facility] Sodium levelOrdered By: Sid Oliveira on 09-17-2024 Sodium [Moles/Vol] 139 mmol/L 136-145 [facility] Troponin IOrdered By: Steve Oliveira on 09-17-2024 Troponin I High Sensitivity 6 pg/mL 3.0-54.0 [facility] Comment on above: Please Note: New Cindy t Units and Gender Specific Reference Ranges. For more information see Policy Stat Procedure [place] High Sensitivity Troponin (TNIH) and attachments. White blood cell (WBC) count Ordered By: Steve Oliveira on 09-17-2024 WBC (Bld) [#/Vol] 10.0 10*3/uL 4.4-11.0 [facility] XR CHEST 2V FRONTAL/LATon XR CHEST 2V FRONTAL/LAT * * *Final Repor t* * * DATE OF EXAM: Sep 17 2024 3:27PM WOX 5291 - XR CHEST 2V FRONTAL/LAT / PROCEDURE REASON: Acute cough * * * * Physician Interpretation * * * * EXAMINATION: CHEST RADIOGRAPH (2 VIEW FRONTAL and LATERAL) CLINICAL HISTORY: Acute cough MQ: XC2_6 EXAM DATE/TIME: 09/17/2024 3:27 PM COMPARISON: Chest x-ray on 09/30/2023 RESULT: Lines, tubes, and devices: None. Lungs and pleura: No consolidation. No lung mass. No pleural effusion. No pneumothorax. Cardiomediastinal silhouette: Stable cardiomediastinal silhouette. Bones and soft tissues: Unremarkable. IMPRESSION: No acute radiographic abnormality. 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: [employer] Transcribe Date/Time: Sep 17 2024 3:28P Dictated by : DANII CRAFT MD This examination was interpreted and the report reviewed and electronically signed by: DANII CRAFT MD on Sep 17 2024 3:28PM EST DIVISION OF RADIOLOGY * * *Final Report* * * DATE OF EXAM: Sep 17 2024 3:27PM WOX 5291 - XR CHEST 2V FRONTAL/LAT / PROCEDURE REASON: Acute cough * * * * Physician Interpretation * * * * EXAMINATION: CHEST RADIOGRAPH (2 VIEW FRONTAL & LATERAL) CLINICAL HISTORY: Acute cough MQ: XC2_6 EXAM DATE/TIME: 09/17/2024 3:27 PM COMPARISON: Chest x-ray on 09/30/2023 RESULT: Lines, tubes, and devices: None. Lungs and pleura: No consolidation. No lung mass. No pleural effusion. No pneumothorax. Cardiomediastinal silhouette: Stable cardiomediastinal silhouette. Bones and soft tissues: Unremarkable. DIVISION OF RADIOLOGY Provider, Suzan Grace [facility] - 09/17/2024 * * *Final Report* * * DATE OF EXAM: Sep 17 2024 3:27PM WOX 5291 - XR CHEST 2V FRONTAL/LAT / PROCEDURE REASON: Acute cough * * * * Physician Interpretation * * * * EXAMINATION: CHEST RADIOGRAPH (2 VIEW FRONTAL & LATERAL) CLINICAL HISTORY: Acute cough MQ: XC2_6 EXAM DATE/TIME: 09/17/2024 3:27 PM COMPARISON: Chest x-ray on 09/30/2023 RESULT: Lines, tubes, and devices: None. Lungs and pleura: No consolidation. No lung mass. No pleural effusion. No pneumothorax. Cardiomediastinal silhouette: Stable cardiomediastinal silhouette. Bones and soft tissues: Unremarkable. IMPRESSION IMPRESSION: No acute radiographic abnormality. 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: [employer] Transcribe Date/Time: Sep 17 2024 3:28P Dictated by : DANII CRAFT MD This examination was interpreted and the report reviewed and electronically signed by: DANII CRAFT MD on Sep 17 2024 3:28PM [facility] Radiology Study observation (narrative) [facility] XR Chest PA and LateralOrder ed By: [facility] Provider on 09-17-2024 [facility] CNOVon 08-22-2024 CNOV Office Visit ([facility]MNS2 ) -------- AMBIKA BROWN ([id number]) 1990 F CHT Date Time Provider Department 08/22/24 10:00 AM WALESKA ACEVEDO [facility] During your visit today, we recorded the following information about you: Waleska Acevedo PA-C 08/22/2024 10:47 AM Signed [facility] Note Subjective: Ambika Brown is a 34 year old year old female presenting for day 3 of infusions. Has struggled since her last Botox treatment. LONG severity down to a 3/10. Therapy Plan: zofran dexamethasone magnesium robaxin valproate New health conditions since orders were placed: Yes elevated blood pressure medication started after day 1 of infusions. Cardiovascular risk factors: POTS, Lupus Anticoagulant disorder, PSVT, obesity, syncope, HTN, Triptan dose in the last 24 hours: No Last muscle relaxer dose: No Last NSAID dose: No Response to infusions: Patient tolerating infusion without side effects. and Headache improving. Current Preventative: Botox PREEMPT Protocol Current Abortive: naproxen, phenergan, gabapentin Labs: Latest Ref Rng AND Units 04/30/2024 CBC WBC 3.70 - 11.00 k/uL 9.96 RBC 3.90 - 5.20 m/uL 5.37 Hemoglobin 11.5 - 15.5 g/dL 13.0 Hematocrit 36.0 - 46.0 % 41.6 MCV 80.0 - 100.0 fL 77.5 MCH 26.0 - 34.0 pg 24.2 MCHC 30.5 - 36.0 g/dL 31.3 RDW-CV 11.5 - 15.0 % 16.5 Platelet Count 150 - 400 k/uL 224 MPV 9.0 - 12.7 fL 10.5 Latest Ref Rng AND Units 09/30/2023 CMP Sodium 136 - 145 mmol/L 141 Potassium 3.5 - 5.1 mmol/L 3.7 Chloride 98 - 107 mmol/L 103 CO2 21 - 32 mmol/L 29 Glucose 70 - 100 mg/dL 125 BUN 7 - 26 mg/dL 16 Creatinine 0.51 - 0.95 mg/dL 0.67 EGFR >=60 mL/min/1.73m? 119 Protein, Total 6.0 - 8.5 g/dL 7.6 Albumin 3.2 - 5.0 g/dL 3.6 Calcium 8.5 - 10.5 mg/dL 10.0 Bilirubin, Total 0.2 - 1.0 mg/dL 0.4 AST 8 - 34 U/L 30 ALT 13 - 61 U/L 41 Alkaline Phosphatase 45 - 117 U/L 170 ALLERGIES Allergen Reactions Prochlorperazine Intolerance Compazine akathesia Diphenhydramine Intolerance Heart palpitations, anxiety Current Medications: methocarbamol (ROBAXIN) 500 mg tabletTake 1 tablet (500 mg) by mouth four times a day until headache free for 24 hours or take for full 5 days.Disp: 20 tabletRfl: 0 carvedilol (COREG) 3.125 mg tabletTake 3.125 mg by mouth two times a day with meals.Disp: Rfl: gabapentin (NEURONTIN) 100 mg capsuleTake 100 mg by mouth as needed.Disp: Rfl: norethindrone (AYGESTIN) 5 mg tablet1 tab 3x/day until bleeding stops. 1 tab 2x/day x 2 days. 1 tab daily x 5 daysDisp: 35 tabletRfl: 0 ondansetron (ZOFRAN) 8 mg tabletFOR NAUSEA. Take on at onset of nausea or migraine,may repeat dose in 8 hours if needed.Disp: 20 tabletRfl: 4 naproxen (NAPROSYN) 500 mg tabletTake 1 tablet by mouth two times a day as needed for pain.Disp: 60 tabletRfl: 3 metoprolol tartrate, short acting, (LOPRESSOR) 50 mg tabletTake 1 tablet by mouth two times a day.Disp: 60 tabletRfl: 0 levothyroxine (SYNTHROID) 50 mcg tabletTake 50 mcg by mouth every morning. Take On an Empty StomachDisp: Rfl: aspirin, enteric coated (ASPIRIN, ENTERIC COATED) 81 mg EC tabletTake 81 mg by mouth daily at bedtime. Disp: Rfl: promethazine (PHENERGAN) 25 mg tablet1/2 to 1 po q8h prn headache or nauseaDisp: 45 tabletRfl: 11 cholecalciferol, vitamin D3, (VITAMIN D3 ORAL)Take by mouth.Disp: Rfl: PNV/FERROUS SULFATE/FOLIC ACID ( MULTIVIT WITH IRON ORAL)Take by mouth daily at bedtime. Disp: Rfl: albuterol HFA (PROVENTIL HFA, VENTOLIN HFA) 90 mcg/actuation inhalerInhale 2 Puffs as instructed every 4 hours as needed for Wheezing/Shortness of Breath.Disp: Rfl: Review of Systems: Review of system: Patient reports no change from the prior visit. Objective: VS: see infusion note for vital signs General: well appearing, in no acute distress, alert Neurological: Pain Behaviors: no pain behaviors observed Mental Status: Alert and oriented to person, place and time. Affect is normal and appropriate. Speech is spontaneous and fluent without dysarthria, normal in rate, volume and articulation, and clear, coherent, and relevant. Short and long-term memory, cognition and general fund of knowledge are good. Attention span and concentration are excellent. Cranial Nerves: VII-face is symmetric without evidence of weakness. VIII-hearing intact. Assessment: (G43.901) Status migrainosus (primary encounter diagnosis) Plan: methocarbamol (ROBAXIN) 500 mg tablet Plan: Ambika Brown is a 34 year old year old female, with a history of asthma, fibromyalgia, hiatal hernia, Lupus Anticoagulant disorder, PSVT, obesity, syncope, HTN, GERD, gestational diabetes, POTS, RLS and chronic migraines following up today for day 3 of infusions. Has tolerated infusions and seen significant improvement with headaches severity. Provided patient with work excuse from Sunday-Sunday with her (more content not included)... Normal [facility] .GFRon 08-21-2024 GFR 86 ml/min/1.73sqm Normal [facility] Comment on above: Result Comment: GFR Population mean for , Non- Americans Ages 20-29 = 116 mL/min/1.73 sq.m. Ages 30-39 = 107 mL/min/1.73 sq.m. Ages 40-49 = 99 mL/min/1.73 sq.m. Ages 50-59 = 93 mL/min/1.73 sq.m. Ages 60-69 = 85 mL/min/1.73 sq.m. Ages 70+ = 75 mL/min/1.73 sq.m. Chronic Kidney Disease: Less than 60 mL/min/1.73 square meters End Stage Renal Disease: Less than 15 mL/min/1.73 square meters Performed By: #### H FP, GFR, TSH, BMP #### [facility] [address] [place] [address], [place] [address] GFR Non- 71 ml/min/1.73sqm Normal [facility] Comment on above: Result Comment: GFR Population mean for , Non- Americans Ages 20-29 = 116 mL/min/1.73 sq.m. Ages 30-39 = 107 mL/min/1.73 sq.m. Ages 40-49 = 99 mL/min/1.73 sq.m. Ages 50-59 = 93 mL/min/1.73 sq.m. Ages 60-69 = 85 mL/min/1.73 sq.m. Ages 70+ = 75 mL/min/1.73 sq.m. Chronic Kidney Disease: Less than 60 mL/min/1.73 square meters End Stage Renal Disease: Less than 15 mL/min/1.73 square meters Performed By: #### H FP, GFR, TSH, BMP #### [facility] [address] [place], [place] [address] BMPon 08-21-2024 BUN/Creatinine Ratio 15.4 ratio Normal 10.0-22.0 [facility] Comment on above: Performed By: #### H FP, GFR, TSH, BMP #### [facility] [address] [place], [place] [address] Calcium [Mass/Vol] 8.2 mg/dL Low 8.5-10.1 [facility] Comment on above: Performed By: #### H FP, GFR, TSH, BMP #### [facility] [address] [place], [place] [address] Chloride [Moles/Vol] 111 mmol/L High 98-107 [facility] Comment on above: Performed By: #### H FP, GFR, TSH, BMP #### [facility] [address] [place], [place] [address] CO2 [Moles/Vol] 23 mmol/L Normal 21-32 [facility] Comment on above: Performed By: #### H FP, GFR, TSH, BMP #### [facility] [address] [place], [place] [address] Creatinine [Mass/Vol] 0.91 mg/dL Normal 0.55-1.02 [facility] Comment on above: Result Comment: Test ing performed on Siemens Dimension [place] analyzer using a modified kinetic Reyes technique. Performed By: #### H FP, GFR, TSH, BMP #### [facility] [address] [place], [place] [address] Electrolyte Balance 6.0 mEq/L Normal 4.0-15.0 [facility] Comment on above: Performed By: #### H FP, GFR, TSH, BMP #### [facility] [address] [place], [place] [address] Glucose [Mass/Vol] 169 mg/dL High 70-100 [facility] Comment on above: Performed By: #### H FP, GFR, TSH, BMP #### [facility] [address] [place], [place] [address] Potassium [Moles/Vol] 4.0 mmol/L Normal 3.5-5.1 [facility] Comment on above: Performed By: #### H FP, GFR, TSH, BMP #### [facility] [address] [place], [place] [address] Sodium [Moles/Vol] 140 mmol/L Normal 136-145 [facility] Comment on above: Performed By: #### H FP, GFR, TSH, BMP #### [facility] [address] [place], [place] [address] Urea nitrogen [Mass/Vol] 14.0 mg/dL Normal 7.0-18.0 [facility] Comment on above: Performed By: #### H FP, GFR, TSH, BMP #### [facility] [address] [place], [place] [address] HFPon 08-21-2024 Bili Indirect Unable to Calculate Normal [facility] Comment on above: Result Comment: Unab le to calculate this test result accurately. Results used to calculate this test are outside the reportable range. Performed By: #### H FP, GFR, TSH, BMP #### [facility] [address] [place], [place] [address] Albumin Level 3.2 G/dL Low 3.4-5.0 [facility] Comment on above: Performed By: #### H FP, GFR, TSH, BMP #### [facility] [address] [place], [place] [address] Albumin/Globulin [Mass ratio] 0.8 {ratio} Low 1.1-1.8 [facility] Comment on above: Performed By: #### H FP, GFR, TSH, BMP #### [facility] [address] [place] [phone] ALP [Catalytic activity/Vol] 114 U/L Normal 45-117 [facility] Comment on above: Performed By: #### H FP, GFR, TSH, BMP #### [facility] [address] [place] [phone] ALT [Catalytic activity/Vol] 30 U/L Normal 12-78 [facility] Comment on above: Performed By: #### H FP, GFR, TSH, BMP #### [facility] [address] [place] [address] AST [Catalytic activity/Vol] 12 U/L Low 15-37 [facility] Comment on above: Performed By: #### H FP, GFR, TSH, BMP #### [facility] [address] [place] [address] Bili Direct <0.05 Normal 0.00-0.20 [facility] Comment on above: Result Comment: Use of this assay is not recommended for patients undergoing treatment with eltrombopag due to the potential for falsely elevated results. Performed By: #### H FP, GFR, TSH, BMP #### [facility] [address] [place] [address] Bili Total 0.2 mg/dL Normal 0.2-1.0 [facility] Comment on above: Result Comment: Use of this assay is not recommended for patients undergoing treatment with eltrombopag due to the potential for falsely elevated results. Performed By: #### H FP, GFR, TSH, BMP #### [facility] [address] [place] [phone] Globulin 4.1 G/dL Normal 2.5-4.6 [facility] Comment on above: Performed By: #### H FP, GFR, TSH, BMP #### [facility] [address] [place] [address] Total Protein 7.3 G/dL Normal 6.0-8.3 [facility] Comment on above: Performed By: #### H FP, GFR, TSH, BMP #### [facility] [address] [place], [place] [address] TSHon 08-21-2024 TSH 0.792 mIU/mL Normal 0.358-3.740 [facility] Comment on above: Performed By: #### H FP, GFR, TSH, BMP #### [facility] [address] [place], [place] [address] CNPNon 08-19-2024 KEVINN Telephone (NIQ) -------- STEPHANIEAMBIKA ([id number]) 1990 F T Date Time Provider Department 08/19/24 DALILA FERNANDEZ During your visit today, we recorded the following information about you: Kenneth Rivera 08/19/2024 8:15 AM Signed Patient was in ED. Needs to schedule infusions as soon as possible. She is also reaching out directly to her provider. Tyesha De L aRosa 08/19/2024 8:28 AM Signed Call received for Dalila Fernandez APRN.SCHEDULE CHECKER regarding Ambika Mirelesjamison 1990. Caller: Self Patient Identified by Name and : Yes Was permission obtained from patient ? Yes Reason for Call: Symptoms Patient calling with complaints of: Pain 5, after ED Frequency: started yesterday morning as soon as she woke up. Location: left side of the face is numb and droopy, pressure all over, left side of body feels weaker, issues finding words Associated symptoms: light sensitivity, nausea Any medications tried for symptoms: Given 6 different different infusion (Depakote, Toradol, magnesium,can't remember the rest, with two things of fluid) Took Excedrin to get through the day, and liquid gel Advil Any recent change in medication or health: Stressed with balancing daily tasks, has been having anxiety states she's been in a fight or flight mood for the past 3-4 days. Any intervention that has helped in the past: Infusions and Botox Last Office Visit: Visit date not found Last [facility] Health visit: Visit date not found Next scheduled appointment: Visit date not found Best number to reach caller: [phone] Best time to reach caller: ANY Is it OK to leave a detailed voice message? Yes Stephanie Cody RN 08/19/2024 9:38 AM Addendum Called patient to discuss: Initially went to ED for high blood pressure, 180/127. Migraine symptoms appeared/got worse as she was heading into ED. H/O hemiplegic migraines- symptoms are not new but she hasn't had one like this in many years. ED gave a few different med cocktails.. Reglan, Toradol, Depakote, magnesium, fluids, unable to remember other meds. Brought migraine down from 05/20 to 01/17. Pt wanting to receive 3-day infusions. Last botox 08/01. MARGARITA Sullivan Betsabe 08/19/2024 10:56 AM Signed Patient called and scheduled for triage today, 08/19. Allergies As of Date: 08/19/2024 Noted Allergy Reaction PROCHLORPERAZINE 12/02/2018 5 - Intolerance Comments: Compazine akathesia DIPHENHYDRAMINE 10/05/2022 5 - Intolerance Comments: Heart palpitations, anxiety Date Reviewed: 08/01/2024 Reviewed by: Isaiah Hargrove MA - Fully Assessed Reason for Visit: Patient Request [[id number]] Prescriptions as of 08/19/2024 - norethindrone (AYGESTIN) 5 mg tablet 1 tab 3x/day until bleeding stops. 1 tab 2x/day x 2 days. 1 tab daily x 5 days - ondansetron (ZOFRAN) 8 mg tablet FOR NAUSEA. Take on at onset of nausea or migraine,may repeat dose in 8 hours if needed. - naproxen (NAPROSYN) 500 mg tablet Take 1 tablet by mouth two times a day as needed for pain. - metoprolol tartrate, short acting, (LOPRESSOR) 50 mg tablet Take 1 tablet by mouth two times a day. - levothyroxine (SYNTHROID) 50 mcg tablet Take 50 mcg by mouth every morning. Take On an Empty Stomach - aspirin, enteric coated (ASPIRIN, ENTERIC COATED) 81 mg EC tablet Take 81 mg by mouth daily at bedtime. - promethazine (PHENERGAN) 25 mg tablet 1/2 to 1 po q8h prn headache or nausea - cholecalciferol, vitamin D3, (VITAMIN D3 ORAL) Take by mouth. - PNV/FERROUS SULFATE/FOLIC ACID ( MULTIVIT WITH IRON ORAL) Take by mouth daily at bedtime. - albuterol HFA (PROVENTIL HFA, VENTOLIN HFA) 90 mcg/actuation inhaler Inhale 2 Puffs as instructed every 4 hours as needed for Wheezing/Shortness of Breath. 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/2017 RLS (restless legs syndrome) [G25.81] 12/17/2017 Neck pain [M54.2] 12/17/2017 Syncope [R55] Palpitations [R00.2] Nonsustained ventricular tachycardia (HCC) [I47* Obesity, Class III, BMI >= 40 [E66.01] 07/15/2021 Paroxysmal supraventricular tachycardia (HCC) [*12/06/2021 Encounter Status:Closed by KENNETH RIVERA on 08/19/24 Normal [facility] Absolute neutrophil countOrd ered By: Madeleine Hebert on 08-18-2024 Neutrophils (Bld) [#/Vol] 7.0 10*3/uL 2.0-7.7 [facility] Automated blood erythrocyte countOrdered By: Madeleine Hebert on 08-18-2024 RBC (Bld) [#/Vol] 5.06 10*6/uL Normal 4.2-5.4 [facility] Comment on above: Performed By: #### L 501.9520, L501.5200, L100.0100, L500.2500 #### [facility] [address] [place], [address] Automated blood hematocrit ( percentage)Ordered By: Madeleine Hebert on 08-18-2024 Hematocrit (Bld) [Volume fraction] 39.8 % Normal 37-47 [facility] Comment on above: Performed By: #### L 501.9520, L501.5200, L100.0100, L500.2500 #### [facility] [address] [place], [address] Automated lymphocyte count a s percentage of total leukocytesOrdered By: Madeleine Hebert on 08-18-2024 Lymphocytes/100 WBC (Bld) 28.5 % Normal 19-41 [facility] Comment on above: Performed By: #### L 501.9520, L501.5200, L100.0100, L500.2500 #### [facility] [address] [place], [address] Basic Metabolic Profile (BMP )on 08-18-2024 BUN/CRE 14.6 RATIO Normal 10-20 [facility] Comment on above: Performed By: #### L 501.9520, L501.5200, L100.0100, L500.2500 #### [facility] [address] [place], [address] CA,Total 9.0 mg/dL Normal 8.5-10.1 [facility] Comment on above: Performed By: #### L 501.9520, L501.5200, L100.0100, L500.2500 #### [facility] [address] [place], [address] ECRCL 151.41 ml/min Normal [facility] Comment on above: Performed By: #### L 501.9520, L501.5200, L100.0100, L500.2500 #### [facility] [address] [place], [address] EST GFR - AA 103 mL/min Normal >60 [facility] Comment on above: Result Comment: Afri can Jamaican GFR Calc Performed By: #### L 501.9520, L501.5200, L100.0100, L500.2500 #### [facility] [address] [place], [address] GAP 6 Normal 5-15 [facility] Comment on above: Performed By: #### L 501.9520, L501.5200, L100.0100, L500.2500 #### [facility] [address] [place], [address] GFR/1.73 sq M.predicted among non-blacks MDRD (S/P/Bld) [Vol rate/Area] 85 mL/min/{1.73_m2} Normal >60 [facility] Comment on above: Result Comment: Non- GFR Calc Performed By: #### L 501.9520, L501.5200, L100.0100, L500.2500 #### [facility] [address] [place], [address] Basophil percentageOrdered B y: Remus Ungur on 08-18-2024 Basophils/100 WBC (Bld) 0.3 % Normal 0-1 [facility] Comment on above: Performed By: #### L 501.9520, L501.5200, L100.0100, L500.2500 #### [facility] [address] [place], [address] Blood urea nitrogen (BUN)/cr eatinine ratioOrdered By: Remus Ungur on 08-18-2024 Urea nitrogen/Creatinine [Mass ratio] 14.6 mg/mg 10-20 [facility] Brain/Head without Contrasto n 08-18-2024 Brain/Head without Contrast [facility] Imaging Services [address] [place] [address] Brain/Head without Contrast MR#: [id number] Acct: [id number] Name: AMBIKA BROWN Rep #: [id number] : 1990 F 34 From: Cesar William PCP: MEGA WEEKS Status: REG ER Study: Brain/Head without Contrast Date of Exam: 06/03 Exam# [id number] Ordering Dr: Madeleine Hebert DO [id number] EXAM: CT HEAD WITHOUT INTRAVENOUS CONTRAST CLINICAL INDICATION: headache TECHNIQUE: Multiple axial images were obtained of the head without intravenous contrast. This CT exam was performed using one or more of the following dose reduction techniques: automated exposure control, adjustment of the mA and/or kV according to patient size, and/or use of iterative reconstruction technique. RADIATION DOSE: CTDIvol = 44.99 mGy, DLP = 829.85 mGy-cm COMPARISON: 06/15/2021. FINDINGS: BRAIN AND EXTRA-AXIAL SPACES: Unremarkable. No intra- or extra-axial hemorrhage. No evidence of acute infarct. No intracranial mass or mass effect. There is preservation of the britt/white matter interface. Posterior fossa structures are unremarkable. Ventricles are appropriate for age. No hydrocephalus. Basal cisterns are patent. BONES/JOINTS: Unremarkable. No discrete lytic or blastic abnormalities. SINUSES: Unremarkable as visualized. Clear. MASTOID AIR CELLS: Unremarkable. Clear. ORBITS: Visualized globes, extraocular muscles, optic nerves and retrobulbar fat appear unremarkable. CT/Brain/Head without Contrast IMPRESSION: No evidence of acute intracranial injury. Electronically Signed: Cesar Bennett MD at 22:38 EST , CC: MEGA WEEKS; Dr. Madeleine Hebert DO 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: Signed Normal [facility] CBC W/Diff, Automatedon 12-0 Absolute Lymph 3.24 X10 3/uL Normal 0.83-4.51 [facility] Comment on above: Performed By: #### L 501.9519, L501.5200, L100.0100, L500.2500 #### [facility] [address] [place], [address] Absolute Neut 7.0 X10 3/uL Normal 2.0-7.7 [facility] Comment on above: Performed By: #### L 501.9520, L501.5200, L100.0100, L500.2500 #### [facility] [address] [place], [address] IG% 0.400 Normal 0.0-0.9 [facility] Comment on above: Result Comment: IG% - Immature Granulocytes (promyelocytes, myelocytes and metamyelocytes) > 1% indicates that a LEFT SHIFT is Present. Performed By: #### L 501.9520, L501.5200, L100.0100, L500.2500 #### [facility] [address] [place], [address] Nucleated RBC (Bld) [#/Vol] 0 10*3/uL Normal 0-5 [facility] Comment on above: Performed By: #### L 501.9520, L501.5200, L100.0100, L500.2500 #### [facility] [address] [place], [address] RDW SD 44.5 fl High 35.1-43.9 [facility] Comment on above: Performed By: #### L 501.9520, L501.5200, L100.0100, L500.2500 #### [facility] [address] [place], [address] Carbon dioxide measurementOr dered By: Madeleine Hebert on 08-18-2024 CO2 [Moles/Vol] 25.0 mmol/L Normal 21.0-32.0 [facility] Comment on above: Performed By: #### L 501.9520, L501.5200, L100.0100, L500.2500 #### [facility] [address] [place], [address] Chloride measurementOrdered By: Madeleine Hebert on 08-18-2024 Chloride [Moles/Vol] 110 mmol/L High 98-107 [facility] Comment on above: Performed By: #### L 501.9520, L501.5200, L100.0100, L500.2500 #### [facility] [address] [place], [address] Emergency Department Summary on 08-18-2024 Emergency Department Summary [facility] Medical Records Department [address] [place] [address] Emergency Department Summary 08/18/24 MR#: [id number] Acct: [id number] Name: AMBIKA BROWN Rep #: [id number] : 1990 34 From: Madeleine Hebert DO PCP: MEGA WEEKS Status:REG ER Location: ED ADDENDUM by Dr. Dariusz Holladn MD on 08/19/24 at 0353 Patient turned over to me from Dr. Madeleine Hebert. Patient is being treated for migraines. She has a history of migraine. Her labs and CAT scan were unremarkable. She is improving. Currently her headaches a 5 out of 10. She has a left-sided facial droop. She has had it before with her migraines. Dr. Morley previously had spoken to the [facility] one of the neurologist. They thought the patient's best plan would be to medicate her here and have her follow-up with their outpatient migraine headache clinic. She is comfortable with that plan. Other than her facial droop her neurologic exam otherwise is unremarkable. She is going to see if her can pick her up if he cannot because they have small children at home she will sleep. Till morning and be discharged then. 08/19/24 0353 Cosigner Signature (if applicable): cc: MEGA WEEKS * Signed HPI History of Present Illness Chief Complaint: Headache Detail of Chief Complaint: Headache Informant: patient Narrative Narrative: Patient presents with headache that started 2 days ago. Headache was more severe this morning when she woke up and did not go to work. 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 Patient sees the migraine center in [place]. She denies falls or head injuries. She denies recent illness. Patient states normally she gets Botox for her migraines. She does describe nausea and photophobia. Scribes pressure all over her head. [facility] Medical History Hypothyroidism Pancreatitis Cholecystectomy planned Implantable loop recorder present SVT (supraventricular tachycardia) History of lupus anticoagulant disorder History of asthma Insulin resistance Migraines Home Medications ???Medication ???Instructions ???Recorded ???Last Taken ???Type levothyroxine 50 mcg tablet 50 mcg PO DAILY 12/05/22 04/10/23 History (Synthroid) ascorbic acid (vitamin C) 500 mg 500 mg PO DAILY 03/05/24 Unknown History tablet aspirin 81 mg chewable tablet 81 mg PO DAILY 03/05/24 Unknown History cholecalciferol (vitamin D3) 25 25 mcg PO DAILY 03/05/24 Unknown History mcg (1,000 unit) tablet dulaglutide 1.5 mg/0.5 mL 1.5 mg subcut QWEEK 06/24/24 Unknown History [facility] Allergy/AdvReac Type Severity Reaction Status Date / Time diphenhydramine (From Allergy Mild Chest Verified 08/18/24 20:12 Benadryl) tightness prochlorperazine (From Allergy Other Verified 08/18/24 20:12 Compazine) Family History Mother Cancer Thyroid disorder Father Heart disease Early 50s Surgical History History of section History of electrophysiologic study (02/13/22) History of tonsillectomy History of cholecystectomy Social History household members: spouse Smoking Status: Never smoker alcohol intake: never substance use type: does not use caffeine: Yes Type: coffee Number of servings: 2 ROS ROS ED Review of Systems ROS Unobtainable: other Constitutional Constitutional ED: Reports lethargy; Denies chills, fever(s), sweats or weight loss Eyes Eyes: Denies blurry vision, change in vision or diplopia ENT ENT ED: Denies rhinorrhea or sore throat Cardiovascular Cardiovascular: Denies chest pain, orthopnea or racing heartbeat Respiratory/Chest Respiratory/Chest: Denies cough, dyspnea, dyspnea on exertion, orthopnea or sputum Gastrointestinal Gastrointestinal: Denies abdominal pain, diarrhea, nausea or vomiting Genitourinary Genitourinary ED: Denies dysuria, hematuria or urinary frequency Musculoskeletal Musculoskeletal: Denies arthralgias, back pain, myalgias or neck pain Integumentary Denies abscess, Abrasions or rash Neurologic Neurologic: Reports headache(s) and paresthesias; Denies weakness Psychiatric Psychiatric: Denies anxiety, depression or suicidal thoughts Endocrine Endocrinology: Denies polydipsia, polyphagia or polyuria Hematologic/Lymphatic Hematologic/Lymphatic: Denies easy bleeding, easy bruising or lymphadenopathy Allergic/Immunologic Allergic/Immunologic ED: Denies mouth swelling, tongue swelling or urticaria EXAM Physical Exam Const Vital Signs: 08/18/24 20:13 08/18/24 21:04 12 (more content not included)... Normal [facility] Eosinophil percentageOrdered By: Madeleine Hebert on 08-18-2024 Eosinophils/100 WBC (Bld) 2.3 % Normal 0-5 [facility] Comment on above: Performed By: #### L 501.9520, L501.5200, L100.0100, L500.2500 #### [facility] [address] [place], [place], [id number] Erythrocyte distribution wid th ratioOrdered By: Madeleine Hebert on 08-18-2024 Erythrocyte distribution width (RBC) [Ratio] 15.7 % High 11.6-14.6 [facility] Comment on above: Performed By: #### L 501.9520, L501.5200, L100.0100, L500.2500 #### [facility] [address] [place], [place], [address] Erythrocyte distribution wid th standard deviationOrdered By: Remus Anup on 08-18-2024 Erythrocyte distribution width (RBC) [Entitic vol] 44.5 fL High 35.1-43.9 [facility] Estimated glomerular filtrat ion rate (GFR) AmericanOrdered By: Remus Anup on 08-18-2024 Estimated GFR (MDRD) Amer 103 mL/min >60 [facility] Comment on above: GFR Calc Estimation of creatinine judy aranceOrdered By: Madeleine Hebert on 08-18-2024 Estimated Creatinine Clearance Calc 151.41 ml/min [facility] Glomerular filtration rate ( GFR) estimationOrdered By: Madeleine Hebert on 08-18-2024 Estimated GFR (MDRD) Non-Af Amer 85 mL/min >60 [facility] Comment on above: Non- GFR Calc Glucose measurementOrdered B y: Madeleine Hebert on 08-18-2024 Glucose [Mass/Vol] 120 mg/dL High 74-106 [facility] Comment on above: Fasting Glucose resu lt from 100 to 125 mg/dL suggests IMPAIRED HOMEOSTASIS per A.D.A. criteria. Result Comment: Fast ing Glucose result from 100 to 125 mg/dL suggests IMPAIRED HOMEOSTASIS per A.D.A. criteria. Performed By: #### L 501.9520, L501.5200, L100.0100, L500.2500 #### [facility] [address] [place], [place], [id number] Hemoglobin measurementOrdere d By: Madeleine Hebert on 08-18-2024 Hemoglobin (Bld) [Mass/Vol] 12.6 g/dL Normal 12.0-15.0 [facility] Comment on above: Performed By: #### L 501.9520, L501.5200, L100.0100, L500.2500 #### [facility] [address] [facility] [place], [place], [id number] Immature granulocytes/100 WB C Auto (Bld)Ordered By: Madeleine Hebert on 08-18-2024 Immature granulocytes/100 WBC (Bld) 0.400 % 0.0-0.9 [facility] Comment on above: IG% - Immature Granu locytes (promyelocytes, myelocytes and metamyelocytes) > 1% indicates that a LEFT SHIFT is Present. Lymphocytes Auto (Unsp spec) [#/Vol]Ordered By: Madeleine Hebert on 08-18-2024 Lymphocytes (Bld) [#/Vol] 3.24 10*3/uL 0.83-4.51 [facility] MCV (mean corpuscular volume ) determinationOrdered By: Remus Ungabhi on 08-18-2024 MCV (RBC) [Entitic vol] 78.7 fL Low 81-99 [facility] Comment on above: Performed By: #### L 501.9520, L501.5200, L100.0100, L500.2500 #### [facility] [address] [place], [place], [id number] Mean corpuscular hemoglobin (MCH) determinationOrdered By: Remus Ungabhi on 08-18-2024 MCH (RBC) [Entitic mass] 24.9 pg Low 27.0-32.0 [facility] Comment on above: Performed By: #### L 501.9520, L501.5200, L100.0100, L500.2500 #### [facility] [address] [place], [place], [id number] Mean corpuscular hemoglobin concentration (MCHC) determinationOrdered By: Remus Ungabhi on 08-18-2024 MCHC (RBC) [Mass/Vol] 31.7 g/dL Low 32-36 [facility] Comment on above: Performed By: #### L 501.9520, L501.5200, L100.0100, L500.2500 #### [facility] [address] [place], [place], [id number] Mean platelet volume determi nationOrdered By: Remus Anup on 08-18-2024 Platelet mean volume (Bld) [Entitic vol] 12.0 fL Normal 6.2-12.0 [facility] Comment on above: Performed By: #### L 501.9520, L501.5200, L100.0100, L500.2500 #### [facility] [address] [place], [place], [id number] ([phone] Monocyte percentageOrdered B y: Remus Ungabhi on 08-18-2024 Monocytes/100 WBC (Bld) 7.2 % Normal 0-10 [facility] Comment on above: Performed By: #### L 501.9520, L501.5200, L100.0100, L500.2500 #### [facility] [address] [place], [address] Neutrophil percentageOrdered By: Madeleine Hebert on 08-18-2024 Neutrophils/100 WBC (Bld) 61.3 % Normal 47-70 [facility] Comment on above: Performed By: #### L 501.9520, L501.5200, L100.0100, L500.2500 #### [facility] [address] [place], [place], [id number] Nucleated red blood cell per centageOrdered By: Madeleine Hebert on 08-18-2024 Nucleated RBC/100 WBC (Bld) [Ratio] 0 % 0-5 [facility] Platelet countOrdered By: Re robert Hebert on 08-18-2024 Platelets (Bld) [#/Vol] 206 10*3/uL Normal 150-450 [facility] Comment on above: Performed By: #### L 501.9520, L501.5200, L100.0100, L500.2500 #### [facility] Laboratory [address] [place], [place], [id number] Potassium measurementOrdered By: Madeleine Hebert on 08-18-2024 Potassium [Moles/Vol] 3.7 mmol/L Normal 3.5-5.1 [facility] Comment on above: Performed By: #### L 501.9520, L501.5200, L100.0100, L500.2500 #### [facility] Laboratory [address] [place], [place], [id number] Serum anion gap measurementO rdered By: Madeleine Hebert on 08-18-2024 Anion gap [Moles/Vol] 6 mmol/L 5-15 [facility] Serum or plasma calcium prieto urement (mass/volume)Ordered By: Madeleine Hebert on 08-18-2024 Calcium [Mass/Vol] 9.0 mg/dL 8.5-10.1 [facility] Serum or plasma creatinine m easurement (mass/volume)Ordered By: Madeleine Hebert on 08-18-2024 Creatinine [Mass/Vol] 0.82 mg/dL Normal 0.55-1.02 [facility] Comment on above: The validity of the calculated GFR & GFRAA in patients over 70 years has not been determined. Clinical correlation is essential. Result Comment: The validity of the calculated GFR GFRAA in patients over 70 years has not been determined. Clinical correlation is essential. Performed By: #### L 501.9520, L501.5200, L100.0100, L500.2500 #### [facility] Laboratory [address] [place], [address] Serum or plasma urea nitroge n measurement (mass/volume)Ordered By: Madeleine Hebert on 08-18-2024 Urea nitrogen [Mass/Vol] 12 mg/dL Normal 7-18 [facility] Comment on above: Performed By: #### L 501.9520, L501.5200, L100.0100, L500.2500 #### [facility] Laboratory [address] [place], [place], [id number] Sodium levelOrdered By: Pawel Hebert on 08-18-2024 Sodium [Moles/Vol] 141 mmol/L Normal 136-145 [facility] Comment on above: Performed By: #### L 501.9520, L501.5200, L100.0100, L500.2500 #### [facility] [address] [place], [address] White blood cell (WBC) count Ordered By: Madeleine Hebert on 08-18-2024 WBC (Bld) [#/Vol] 11.4 10*3/uL High 4.4-11.0 [facility] Comment on above: Performed By: #### L 501.9520, L501.5200, L100.0100, L500.2500 #### [facility] [address] [place], [address] [facility] 08-01-2024 [facility] Office Visit (NHMNS2 ) -------- AMBIKA BROWN ([id number]) 1990 F T Date Time Provider Department 08/01/24 4:00 PM DALILA FERNANDEZ [facility] During your visit today, we recorded the following information about you: Pulse Blood pressure Weight Last Period 102/minute 147/88 154.9 kg 07/29/24 Dalila Fernandez, FORMULA CHECKER.SCHEDULE CHECKER 08/01/2024 4:47 PM Signed [facility] Follow-up Visit Current Preventive: Botox Change needed for current preventive? No Current Abortive: Naproxen, Phenergan, gabapentin Change needed for current abortive? No Frequency of Abortive Use (per month): 10 Duration of headaches with treatment: 1 days (24 hours) Miscellaneous Patient Concerns: Will refer epilepsy for possible seizures Impression: Chronic migraine without aura, intractable, without status migrainosus (primary encounter diagnosis) Plan: Follow-Up Onabotulinum Toxin A (BotoxTM) for Migraine Indication: Chronic Intractable Migraine Treatment #: 16 Referral Expiration: 11/26/2024 Prior to the initiation of the FIRST treatment with Onabotulinum Toxin A, the patient reported the following average headache frequency over the past 3 MONTHS: Number of moderate-severe migraine days/month: 20 Number of mild migraine days/month: 10 Number of headache free days/month: 0 (0 headache-free hours) Migraine severity: 8/10 After treatment with Onabotulinum Toxin A: Number of moderate-severe migraine days/month: 10 Number of mild migraine days/month: 5 Number of headache free days/month: 15 (360 headache-free hours) Migraine severity: 7/10 Patient reduction in overall migraine days: Yes Patient reduction in moderate-severe migraine days: Yes Patient reduction of headache hours by 100 hours or more: Yes (reduction of 360 hours) Individual has obtained clinical benefit deemed significant by individual or prescriber (Y/N): Yes Patient's quality of life and ability to perform ADLs has improved (Y/N): Yes Side effects: none Wearing off: Yes - 10 weeks after treatment The patient has been assessed for disorders which could contribute to breathing or swallowing difficulty, and there is no contraindication with PREEMPT Botox. There is no documented allergic reaction/hypersensitivit y to any botulinum toxin and there is no active infection at proposed injection site. HEADACHE SCORES: 02/26/2023 05/29/2023 11/23/2023 Headache Questions ER visits since last office visit: 2 0 1 Hospital stays since last office visit 1 0 0 Limited ADLs in the last month: 2 4 3 Days missed from work or school in the last month: 0 0 0 Days headache pain free in the last month: 15 10 8 Days per month with ALL of the following symptoms - decreased productivity, light sensitivity and nausea: 6 8 10 Initial improvement of headache after botox injection at last visit: Not applicable, I did not have a botox injection at my last visit Not applicable, I did not have a botox injection at my last visit Not applicable, I did not have a botox injection at my last visit PRN medication usage in the last month: 0 2 10 Patient impression of improvement since last visit: Much worse Much worse Very much worse 02/26/2023 05/29/2023 11/23/2023 HIT-6 HIT-6 62 (Severe impact) 67 (Severe impact) 64 (Severe impact) 02/26/2023 05/29/2023 11/23/2023 MARCIA - 2/7 SCORES MARCIA-2 Score 0 0 4 MARCIA-7 Score 10 02/26/2023 05/29/2023 11/23/2023 Migraine Specific QOL - Higher scores indicate better HRQL Role Function-Restrictive Transformed Score (range: 0-100) 68.57 40 48.57 Role Function-Preventive Transformed Score (range: 0-100) 90 40 80 Emotional Function Transformed Score (range: 0-100) 73.33 0 53.33 02/26/2023 05/29/2023 11/23/2023 PHQ-9 Score 4 13 3 BP 147/88 Pulse 102 Wt (!) 154.9 kg (341 lb 7.9 oz) LMP 07/29/2024 (Approximate) SpO2 96% BMI 53.49 kg/m? Patient name: Ambika Brown : 1990 ALLERGIES Allergen Reactions Prochlorperazine Intolerance Compazine akathesia Diphenhydramine Intolerance Heart palpitations, anxiety UNIVERSAL PROTOCOL / SAFETY CHECKLIST Procedure: Onabotulinum toxin A for migraine Informed Consent Consent Obtained: Written [place] Protocol A moment to CARE was completed SIGN IN Personnel directly involved with the procedure wore the appropriate PPE Special Equipment: N/A Patient/Surrogate Stated/Verified: Patient name, Date of , Relevant allergies and Intended procedure TIME OUT Intended patient and procedure match the source document(s) Consent documented and matches the intended procedure No relevant labs, photos, and/or imaging studies were applicable for review. No correct side/site applicable for marking and visibility. No medications required for procedure. No fire risk assessment and interventions applicable. No implant(s) inserted. SIGN OUT No specimen collected. No instruments, e (more content not included)... Normal [facility] 12 Lead EKGon 06-24-2024 12 Lead EKG [facility] Cardiovascular Services [address] [place] [address] 12 Lead EKG 06/24/24 1841 MR#: [id number] Acct: [id number] Name: AMBIKA BROWN Rep #: [id number] : 1990 34 From: Cesar Sanchez MD Attending Dr: Status: DEP ER Ordering Dr: Madeleine Hebert DO Date: 06/24/24 Location: ED Sex: F C Admitted: Test Reason : CP Blood Pressure : / mmHG Vent. Rate : 085 BPM Atrial Rate : 085 BPM P-R Int : 178 ms QRS Dur : 084 ms QT Int : 386 ms P-R-T Axes : 040 005 069 degrees QTc Int : 459 ms Normal sinus rhythm Minimal voltage criteria for LVH, may be normal variant ( R in aVL ) Borderline ECG Confirmed by Cesar Sanchez ([id number]), general expeditor AMBIKA TELLO ([id number]) on 06/25/2024 9:34:21 AM Referred By: AR Confirmed By:Cesar Sanchez 06/25/24 0934 Date Cesar Sanchez MD CC: Dr. Madeleine Hebert, DO Signed Normal [facility] Basic Metabolic Profile (BMP )on 06-24-2024 BUN/CRE 15.0 RATIO Normal 10-20 [facility] Comment on above: Order Comment: 1Y Performed By: #### L 500.2500, L501.5425, L300.8000, L100.0100 ####[facility] [address] [place], [address] CA,Total 8.6 mg/dL Normal 8.5-10.1 [facility] Comment on above: Order Comment: 1Y Performed By: #### L 500.2500, L501.5425, L300.8000, L100.0100 ####[facility] [address] [place], [address] Chloride [Moles/Vol] 105 mmol/L Normal 98-107 [facility] Comment on above: Order Comment: 1Y Performed By: #### L 500.2500, L501.5425, L300.8000, L100.0100 ####[facility] [address] [place], [address] CO2 [Moles/Vol] 28.0 mmol/L Normal 21.0-32.0 [facility] Comment on above: Order Comment: 1Y Performed By: #### L 500.2500, L501.5425, L300.8000, L100.0100 ####[facility] [address] [place], [address] Creatinine [Mass/Vol] 0.86 mg/dL Normal 0.55-1.02 [facility] Comment on above: Order Comment: 1Y Result Comment: The validity of the calculated GFR GFRAA in patients over 70 years has not been determined. Clinical correlation is essential. Performed By: #### L 500.2500, L501.5425, L300.8000, L100.0100 ####[facility] [address] [place], [address] ECRCL 144.63 ml/min Normal [facility] Comment on above: Order Comment: 1Y Performed By: #### L 500.2500, L501.5425, L300.8000, L100.0100 ####[facility] [address] [place], [address] EST GFR - AA 97 mL/min Normal >60 [facility] Comment on above: Order Comment: 1Y Result Comment: Afri can Jamaican GFR Calc Performed By: #### L 500.2500, L501.5425, L300.8000, L100.0100 ####[facility] [address] [place], [address] GAP 7 Normal 5-15 [facility] Comment on above: Order Comment: 1Y Performed By: #### L 500.2500, L501.5425, L300.8000, L100.0100 ####[facility] [address] [place], [address] GFR/1.73 sq M.predicted among non-blacks MDRD (S/P/Bld) [Vol rate/Area] 80 mL/min/{1.73_m2} Normal >60 [facility] Comment on above: Order Comment: 1Y Result Comment: Non- GFR Calc Performed By: #### L 500.2500, L501.5425, L300.8000, L100.0100 ####[facility] [address] [place], [address] Glucose [Mass/Vol] 149 mg/dL High 74-106 [facility] Comment on above: Order Comment: 1Y Result Comment: Fast ing Glucose result greater than or equal to 126 mg/dL suggests DIABETES MELLITUS per A.D.A. criteria. Performed By: #### L 500.2500, L501.5425, L300.8000, L100.0100 ####[facility] [address] [place], [address] Potassium [Moles/Vol] 3.4 mmol/L Low 3.5-5.1 [facility] Comment on above: Order Comment: 1Y Performed By: #### L 500.2500, L501.5425, L300.8000, L100.0100 ####[facility] [address] [place], [address] Sodium [Moles/Vol] 140 mmol/L Normal 136-145 [facility] Comment on above: Order Comment: 1Y Performed By: #### L 500.2500, L501.5425, L300.8000, L100.0100 ####[facility] [address] [place], [address] Urea nitrogen [Mass/Vol] 13 mg/dL Normal 7-18 [facility] Comment on above: Order Comment: 1Y Performed By: #### L 500.2500, L501.5425, L300.8000, L100.0100 ####[facility] [address] [place], [address] CBC W/Diff, Automatedon 10- Absolute Lymph 3.10 X10 3/uL Normal 0.83-4.51 [facility] Comment on above: Performed By: #### L 500.2500, L501.5425, L300.8000, L100.0100 ####[facility] [address] [place], [address] Absolute Neut 6.4 X10 3/uL Normal 2.0-7.7 [facility] Comment on above: Performed By: #### L 500.2500, L501.5425, L300.8000, L100.0100 ####[facility] [address] [place], [address] Basophils/100 WBC (Bld) 0.3 % Normal 0-1 [facility] Comment on above: Performed By: #### L 500.2500, L501.5425, L300.8000, L100.0100 ####[facility] [address] [place], [address] Eosinophils/100 WBC (Bld) 2.4 % Normal 0-5 [facility] Comment on above: Performed By: #### L 500.2500, L501.5425, L300.8000, L100.0100 ####[facility] [address] [place], [address] Erythrocyte distribution width (RBC) [Ratio] 15.9 % High 11.6-14.6 [facility] Comment on above: Performed By: #### L 500.2500, L501.5425, L300.8000, L100.0100 ####[facility] [address] [place], [address] Hematocrit (Bld) [Volume fraction] 39.9 % Normal 37-47 [facility] Comment on above: Performed By: #### L 500.2500, L501.5425, L300.8000, L100.0100 ####[facility] [address] [place], [address] Hemoglobin (Bld) [Mass/Vol] 12.3 g/dL Normal 12.0-15.0 [facility] Comment on above: Performed By: #### L 500.2500, L501.5425, L300.8000, L100.0100 ####[facility] [address] [place], [address] IG% 0.300 Normal 0.0-0.9 [facility] Comment on above: Result Comment: IG% - Immature Granulocytes (promyelocytes, myelocytes and metamyelocytes) > 1% indicates that a LEFT SHIFT is Present. Performed By: #### L 500.2500, L501.5425, L300.8000, L100.0100 ####[facility] [address] [place], [address] Lymphocytes/100 WBC (Bld) 30.0 % Normal 19-41 [facility] Comment on above: Performed By: #### L 500.2500, L501.5425, L300.8000, L100.0100 ####[facility] [address] [place], [address] MCH (RBC) [Entitic mass] 24.4 pg Low 27.0-32.0 [facility] Comment on above: Performed By: #### L 500.2500, L501.5425, L300.8000, L100.0100 ####[facility] [address] [place], [address] MCHC (RBC) [Mass/Vol] 30.8 g/dL Low 32-36 [facility] Comment on above: Performed By: #### L 500.2500, L501.5425, L300.8000, L100.0100 ####[facility] [address] [place], [address] MCV (RBC) [Entitic vol] 79.0 fL Low 81-99 [facility] Comment on above: Performed By: #### L 500.2500, L501.5425, L300.8000, L100.0100 ####[facility] [address] [place], [address] Monocytes/100 WBC (Bld) 5.3 % Normal 0-10 [facility] Comment on above: Performed By: #### L 500.2500, L501.5425, L300.8000, L100.0100 ####[facility] [address] [place], [address] Neutrophils/100 WBC (Bld) 61.7 % Normal 47-70 [facility] Comment on above: Performed By: #### L 500.2500, L501.5425, L300.8000, L100.0100 ####[facility] [address] [place], [address] Nucleated RBC (Bld) [#/Vol] 0 10*3/uL Normal 0-5 [facility] Comment on above: Performed By: #### L 500.2500, L501.5425, L300.8000, L100.0100 ####[facility] [address] [place], [address] Platelet mean volume (Bld) [Entitic vol] 12.3 fL High 6.2-12.0 [facility] Comment on above: Performed By: #### L 500.2500, L501.5425, L300.8000, L100.0100 ####[facility] [address] [place], [address] Platelets (Bld) [#/Vol] 225 10*3/uL Normal 150-450 [facility] Comment on above: Performed By: #### L 500.2500, L501.5425, L300.8000, L100.0100 ####[facility] [address] [place], [address] RBC (Bld) [#/Vol] 5.05 10*6/uL Normal 4.2-5.4 [facility] Comment on above: Performed By: #### L 500.2500, L501.5425, L300.8000, L100.0100 ####[facility] [address] [place], [address] RDW SD 45.5 fl High 35.1-43.9 [facility] Comment on above: Performed By: #### L 500.2500, L501.5425, L300.8000, L100.0100 ####[facility] [address] [place], [address] WBC (Bld) [#/Vol] 10.4 10*3/uL Normal 4.4-11.0 [facility] Comment on above: Performed By: #### L 500.2500, L501.5425, L300.8000, L100.0100 ####[facility] [address] [place], [address] Chest 1 View (Portable)on Chest 1 View (Portable) [facility] Imaging Services [address] [place] [address] Chest 1 View (Portable) MR#: [id number] Acct: [id number] Name: AMBIKA BROWN Rep #: [id number] : 1990 F 34 From: Cecil Duron MD PCP: OUT OF TOWN DOCTOR Status: REG ER Study: Chest 1 View (Portable) Date of Exam: 06/24/24 Exam# [id number] Ordering Dr: Madeleine Hebert DO [id number] STUDY: X-RAY CHEST REASON FOR EXAM: Female, 34 years old. chest pain TECHNIQUE: AP portable COMPARISON: March 22, 2022 FINDINGS: Focal reticulonodular interstitial thickening in the right lower lobe which is new finding since prior exam possibly inflammatory.. There is no demonstrated pleural abnormality. Normal size heart. Normal mediastinum and [place]. Normal visualized pulmonary arteries. Normal visualized aortic arch and descending thoracic aorta. Normal visualized thoracic spine. Normal visualized ribs, clavicles, and shoulders. There is no demonstrated abnormality of the visualized soft tissue structures of the upper abdomen. RAD/Chest 1 View (Portable) IMPRESSION: Reticulonodular interstitial thickening in the right lower lobe Electronically Signed: Cecil Duron MD at 19:59 EDT , CC: Dr. Madeleine Hebert DO 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: Signed Normal [facility] D-Dimer Quantitative (DVT/PE )on 06-24-2024 D-DIMER QUANT 0.36 FEU/ug/m Normal 0.27-0.49 [facility] Comment on above: Result Comment: NORM AL D-Dimer level (<0.50) indicates no DVT or PE. Performed By: #### L 500.2500, L501.5425, L300.8000, L100.0100 ####[facility] [address] [place], [address] Emergency Department Summary on 06-24-2024 Emergency Department Summary [facility] Medical Records Department [address] [place] [address] Emergency Department Summary 06/24/24 MR#: [id number] Acct: [id number] Name: AMBIKA BROWN Rep #: [id number] : 1990 34 From: Madeleine Hebert DO PCP: OUT OF TOWN DOCTOR Status:DEP ER Location: ED HPI History of Present Illness Chief Complaint: Chest Pain Detail of Chief Complaint: Chest pain, palpitations, migraine Informant: patient Narrative Narrative: Patient presents to the emergency department with complaint of a migraine that she has had all day and just not feeling well. Patient states that prior to coming to the emergency department she had an episode where she was try to make dinner and started feeling palpitations and racing heart and so she went and sat down with her child and then just everything became somewhat fuzzy but does not think she passed out. She has history of palpitations as well as PVCs and PACs and possibly SVT. She tells me that they attempted to do an ablation on her more than a year ago at [facility] But they were unsuccessful. She has a loop recorder that she wears that she has had in for about 2 years and they have not found any significant dysrhythmias or arrhythmias. Patient also had some chest discomfort while this was happening. She denies recent travel or surgery. No history of PE or DVT. She denies recent illness. Patient took some ibuprofen and her headaches better now she rates a 7 out of 10. She gets Botox injections for migraines. She does not want any medications for migraine. PFSH PFSH Medical History Hypothyroidism Pancreatitis Cholecystectomy planned Implantable loop recorder present SVT (supraventricular tachycardia) History of lupus anticoagulant disorder History of asthma Insulin resistance Migraines Home Medications ???Medication ???Instructions ???Recorded ???Last Taken ???Type levothyroxine 50 mcg tablet 50 mcg PO DAILY 12/05/22 04/10/23 History (Synthroid) metoprolol succinate 25 mg 25 mg PO DAILY #90 tabs 11/20/23 Unknown Rx tablet,extended release 24 hr ascorbic acid (vitamin C) 500 mg 500 mg PO DAILY 03/05/24 Unknown History tablet aspirin 81 mg chewable tablet 81 mg PO DAILY 03/05/24 Unknown History cholecalciferol (vitamin D3) 25 25 mcg PO DAILY 03/05/24 Unknown History mcg (1,000 unit) tablet naproxen 500 mg tablet 500 mg PO BID PRN pain #20 tabs 03/06/24 Unknown Rx Allergy/AdvReac Type Severity Reaction Status Date / Time diphenhydramine (From Allergy Mild Chest Verified 06/24/24 18:41 Benadryl) tightness prochlorperazine (From Allergy Other Verified 06/24/24 18:41 Compazine) Family History Mother Cancer Thyroid disorder Father Heart disease Early 50s Surgical History History of section History of electrophysiologic study (02/13/22) History of tonsillectomy History of cholecystectomy Social History household members: spouse Smoking Status: Never smoker alcohol intake: never substance use type: does not use caffeine: Yes Type: coffee Number of servings: 2 ROS ROS ED Review of Systems ROS Unobtainable: other Constitutional Constitutional ED: Reports lethargy; Denies chills, fever(s), sweats or weight loss Eyes Eyes: Denies blurry vision, change in vision or diplopia ENT ENT ED: Denies rhinorrhea or sore throat Cardiovascular Cardiovascular: Reports chest pain, palpitations and racing heartbeat; Denies orthopnea Respiratory/Chest Respiratory/Chest: Denies cough, dyspnea, dyspnea on exertion, orthopnea or sputum Gastrointestinal Gastrointestinal: Denies abdominal pain, diarrhea, nausea or vomiting Genitourinary Genitourinary ED: Denies dysuria, hematuria or urinary frequency Musculoskeletal Musculoskeletal: Denies arthralgias, back pain, myalgias or neck pain Integumentary Denies abscess, Abrasions or rash Neurologic Neurologic: Reports headache(s); Denies weakness Psychiatric Psychiatric: Denies anxiety, depression or suicidal thoughts Endocrine Endocrinology: Denies polydipsia, polyphagia or polyuria Hematologic/Lymphatic Hematologic/Lymphatic: Denies easy bleeding, easy bruising or lymphadenopathy Allergic/Immunologic Allergic/Immunologic ED: Denies mouth swelling, tongue swelling or urticaria EXAM Physical Exam Const Vital Signs: 06/24/24 18:30 06/24/24 18:40 06/24/24 18:41 Temperature 97.8 F 97.8 F Temperature Source Oral Temporal Pulse Rate 100 Respiratory Rate 18 Respiratory Effort Normal Blood Pressure 136/83 H Blood Pressure Mean 100 Pulse Ox 97 Oxygen Delivery Method Room Air (more content not included)... Normal [facility] L501.5425on 06-24-2024 TROPONIN-I HS 3 pg/mL Normal 3.0-54.0 [facility] Comment on above: Order Comment: 1Y Result Comment: Shahid meyer Note: New Test Units and Gender Specific Reference Ranges. For more information see Policy Stat Procedure [place] High Sensitivity Troponin (TNIH) and attachments. Performed By: #### L 500.2500, L501.5425, L300.8000, L100.0100 ####[facility] [id number] [place], [address] [place] Pelvison 05-19-2024 Indication Abnormal uterine bleeding Impression Anteverted fibroid uterus that measures 77 mm x 39 mm x 59 mm. The largest fibroids are described below. Endometrium has a normal trilaminar appearance and measures 4.6 mm. Arcuate endometrial contour. Both ovaries are visualized and appear normal with follicular change. No adnexal masses were observed. There is no free fluid visualized in the peritoneal cavity. Recommendations Follow up as clinically indicated. History Medical History Surgery: section x 1 Menstrual History LMP on 05/03/2024. Bleeding: menorrhagia Method Transabdominal, transvaginal, 3D ultrasound examination, Color Doppler examination. View: Adequate visualization Uterus Uterus: Visualized Uterus position: anteverted Description of uterine malformations: arcuate Myometrium: heterogeneous Endometrium: normal Cervix details: cystic lesions identified suggesting superficial Nabothian cysts Uterus length 77 mm Uterus width 59 mm Uterus height 39 mm Uterus Vol 91.9 cm Endometrial thickness, total 4.6 mm Fibroids: Fibroids identified Uterine fibroid D1 6 mm Uterine fibroid D2 5 mm Uterine fibroid D3 4 mm Uterine fibroid mean 5.0 mm Uterine fibroid vol 0.063 cm Uterine fibroids findings: Right lateral anterior wall. intramural Right Ovary Rt ovary: Visualized Rt ovary morphology: premenopausal normal follicular Rt ovary D1 11 mm Rt ovary D2 13 mm Rt ovary D3 21 mm Rt ovary Vol 1.5 cm Left Ovary Lt ovary: Visualized Lt ovary morphology: premenopausal normal follicular Lt ovary D1 35 mm Lt ovary D2 23 mm Lt ovary D3 15 mm Lt ovary Vol 6.4 cm Cul de Sac Visualized. no free fluid visualized Performed By: Lilian Putnam RDMS Read By: Benny Bonds M.D. MATERNAL MEDICINE [facility] [place] Pelvison 05-16-2024 Radiology Study observation (narrative) [facility] CNOVon 05-01-2024 CNOV Office Visit (NCMNS2 ) -------- AMBIKA BROWN ([id number]) 1990 F T Date Time Provider Department 05/01/24 1:30 PM DALILA FERNANDEZ [facility] During your visit today, we recorded the following information about you: Pulse Blood pressure 107/minute 153/76 Dalila Fernandez, FORMULA CHECKER.SCHEDULE CHECKER 05/01/2024 2:16 PM Signed [facility] Follow-up Visit Current Preventive: Botox Change needed for current preventive? No Current Abortive: Naproxen, Phenergan Change needed for current abortive? No Impression: Chronic migraine without aura, intractable, without status migrainosus (primary encounter diagnosis) Plan: Follow-Up Onabotulinum Toxin A (BotoxTM) for Migraine Indication: Chronic Intractable Migraine Treatment #: 16 Referral Expiration: 11/26/2024 Prior to the initiation of the FIRST treatment with Onabotulinum Toxin A, the patient reported the following average headache frequency over the past 3 MONTHS: Number of moderate-severe migraine days/month: 20 Number of mild migraine days/month: 10 Number of headache free days/month: 0 (0 headache-free hours) Migraine severity: 810 After treatment with Onabotulinum Toxin A: Number of moderate-severe migraine days/month: 10 Number of mild migraine days/month: 5 Number of headache free days/month: 15 (360 headache-free hours) Migraine severity: 03/19 Patient reduction in overall migraine days: Yes Patient reduction in moderate-severe migraine days: Yes Patient reduction of headache hours by 100 hours or more: Yes (reduction of 360 hours) Individual has obtained clinical benefit deemed significant by individual or prescriber (Y/N): Yes Patient's quality of life and ability to perform ADLs has improved (Y/N): Yes Side effects: none Wearing off: Yes - 10 weeks after treatment The patient has been assessed for disorders which could contribute to breathing or swallowing difficulty, and there is no contraindication with PREEMPT Botox. There is no documented allergic reaction/hypersensitivit y to any botulinum toxin and there is no active infection at proposed injection site. HEADACHE SCORES: 02/26/2023 05/29/2023 11/23/2023 Headache Questions ER visits since last office visit: 2 0 1 Hospital stays since last office visit 1 0 0 Limited ADLs in the last month: 2 4 3 Days missed from work or school in the last month: 0 0 0 Days headache pain free in the last month: 15 10 8 Days per month with ALL of the following symptoms - decreased productivity, light sensitivity and nausea: 6 8 10 Initial improvement of headache after botox injection at last visit: Not applicable, I did not have a botox injection at my last visit Not applicable, I did not have a botox injection at my last visit Not applicable, I did not have a botox injection at my last visit PRN medication usage in the last month: 0 2 10 Patient impression of improvement since last visit: Much worse Much worse Very much worse 02/26/2023 05/29/2023 11/23/2023 HIT-6 HIT-6 62 (Severe impact) 67 (Severe impact) 64 (Severe impact) 02/26/2023 05/29/2023 11/23/2023 MARCIA - 2/7 SCORES MARCIA-2 Score 0 0 4 MARCIA-7 Score 10 02/26/2023 05/29/2023 11/23/2023 Migraine Specific QOL - Higher scores indicate better HRQL Role Function-Restrictive Transformed Score (range: 0-100) 68.57 40 48.57 Role Function-Preventive Transformed Score (range: 0-100) 90 40 80 Emotional Function Transformed Score (range: 0-100) 73.33 0 53.33 02/26/2023 05/29/2023 11/23/2023 PHQ-9 Score 4 13 3 BP 153/76 Pulse 107 LMP 03/24/2024 SpO2 97% Patient name: Ambika Brown : 1990 ALLERGIES Allergen Reactions Prochlorperazine Other: See Comments Compazine Diphenhydramine Intolerance Heart palpitations, anxiety UNIVERSAL PROTOCOL / SAFETY CHECKLIST Procedure: Onabotulinum toxin A for migraine Informed Consent Consent Obtained: Written Holladay Protocol A moment to CARE was completed SIGN IN Personnel directly involved with the procedure wore the appropriate PPE Special Equipment: N/A Patient/Surrogate Stated/Verified: Patient name, Date of , Relevant allergies and Intended procedure TIME OUT Intended patient and procedure match the source document(s) Consent documented and matches the intended procedure No relevant labs, photos, and/or imaging studies were applicable for review. No correct side/site applicable for marking and visibility. No medications required for procedure. No fire risk assessment and interventions applicable. No implant(s) inserted. SIGN OUT No specimen collected. No instruments, equipment or retained foreign bodies applicable. Post-procedure follow-up management communicated and Plan of Care Visit completed when applicable Written Consent Obtained: Written LOT #: [id number] Expiration Date: Month: 12 Year: 2025 Injection Sites Left (Units) Left (Sites) Right (Units) Ri (more content not included)... Normal [facility] B-HCG SerPl-aCncon 4 HCG.beta subunit Qn m[IU]/mL Normal <5.0 [facility] Comment on above: Order Comment: Speci men Type: BLOOD SPECIMENOrdering Facility: [facility] Address: [address] [place] [address] Result Comment: Jaelouisa brendaedgar Performed By: #### 2 1198-7 ####[facility] LABCLIA [id number] [place] [address] [place] CBC panel Auto (Bld)on 04-30 Erythrocyte distribution width (RBC) [Ratio] 16.5 % High 11.5 - 15.0 % [facility] Hematocrit (Bld) [Volume fraction] 41.6 % 36.0 - 46.0 % [facility] Hemoglobin (Bld) [Mass/Vol] 13.0 g/dL 11.5 - 15.5 g/dL [facility] Interpretation and review of laboratory results Abnormal [facility] MCH (RBC) [Entitic mass] 24.2 pg Low 26.0 - 34.0 pg [facility] MCHC (RBC) [Mass/Vol] 31.3 g/dL 30.5 - 36.0 g/dL [facility] MCV (RBC) [Entitic vol] 77.5 fL Low 80.0 - 100.0 fL [facility] Nucleated RBC (Bld) [#/Vol] NINF [facility] Platelet mean volume (Bld) [Entitic vol] 10.5 fL 9.0 - 12.7 fL [facility] Platelets (Bld) [#/Vol] 224 10*3/uL [facility] RBC (Bld) [#/Vol] 5.37 10*6/uL High 3.90 - 5.2 0 m/uL [facility] WBC (Bld) [#/Vol] 9.96 10*3/uL [facility] Erythrocyte distribution width (RBC) [Ratio] 16.5 % High 11.5-15.0 [facility] Comment on above: Order Comment: Speci men Type: BLOOD SPECIMENOrdering Facility: [facility] Address: [address] [place] [address] Performed By: #### 5 8410-2 ####[facility] EVA SENTARA LEIGH HOSPITALLouisa [id number] [place] [address] [place] Hematocrit (Bld) [Volume fraction] 41.6 % Normal 36.0-46.0 [facility] Comment on above: Order Comment: Speci men Type: BLOOD SPECIMENOrdering Facility: [facility] Address: [address] [place] [address] Performed By: #### 5 8410-2 ####[facility] [id number] [place] [address] [place] Hemoglobin (Bld) [Mass/Vol] 13.0 g/dL Normal 11.5-15.5 [facility] Comment on above: Order Comment: Speci men Type: BLOOD SPECIMENOrdering Facility: [facility] Address: [address] [place] [address] Performed By: #### 5 8410-2 ####[facility] [id number] [place] [address] [place] MCH (RBC) [Entitic mass] 24.2 pg Low 26.0-34.0 [facility] Comment on above: Order Comment: Speci men Type: BLOOD SPECIMENOrdering Facility: [facility] Address: [address] [place] [address] Performed By: #### 5 8410-2 ####[facility] [id number] [place] [address] [place] MCHC (RBC) [Mass/Vol] 31.3 g/dL Normal 30.5-36.0 [facility] Comment on above: Order Comment: Speci men Type: BLOOD SPECIMENOrdering Facility: [facility] Address: [address] [place] [address] Performed By: #### 5 8410-2 ####[facility] PARKWAYNCLI [id number] [place] [address] [place] MCV (RBC) [Entitic vol] 77.5 fL Low 80.0-100.0 [facility] Comment on above: Order Comment: Speci men Type: BLOOD SPECIMENOrdering Facility: [facility] Address: [address] [place] [address] Performed By: #### 5 8410-2 ####[facility] KARTIK [id number] [place] [address] [place] Nucleated RBC (Bld) [#/Vol] 10*3/uL Normal <0.01 [facility] Comment on above: Order Comment: Speci men Type: BLOOD SPECIMENOrdering Facility: [facility] Address: [address] [place] [address] Performed By: #### 5 8410-2 ####[facility] ADDYBURNSVILLENCLIA [id number] [place] [address] [place] Platelet mean volume (Bld) [Entitic vol] 10.5 fL Normal 9.0-12.7 [facility] Comment on above: Order Comment: Speci men Type: BLOOD SPECIMENOrdering Facility: [facility] Address: [address] [place] [address] Performed By: #### 5 8410-2 ####[facility] PARKWAYNCJOIA [id number] [place] [address] [place] Platelets (Bld) [#/Vol] 224 10*3/uL Normal 150-400 [facility] Comment on above: Order Comment: Speci men Type: BLOOD SPECIMENOrdering Facility: [facility] Address: [address] [place] [address] Performed By: #### 5 8410-2 ####[facility] PARKWAYNCLIA [id number] [place] [address] [place] RBC (Bld) [#/Vol] 5.37 10*6/uL High 3.90-5.20 [facility] Comment on above: Order Comment: Speci men Type: BLOOD SPECIMENOrdering Facility: [facility] Address: [address] [place] [address] Performed By: #### 5 8410-2 ####[facility] EVA ADDYTOWNCLIA [id number] [place] [address] [place] WBC (Bld) [#/Vol] 9.96 10*3/uL Normal 3.70-11.00 [facility] Comment on above: Order Comment: Speci men Type: BLOOD SPECIMENOrdering Facility: [facility] Address: [address] [place] [id number] Performed By: #### 5 8410-2 ####[facility] ADDYTOWNCLIA [id number] [address] [place] CNOVon 04-30-2024 CNOV Office Visit (OBGYWM ) -------- AMBIKA BROWN ([id number]) 1990 F CHT Date Time Provider Department 04/30/24 10:30 AM WASHINGTON MONDRAGON During your visit today, we recorded the following information about you: Blood pressure Weight Last Period 124/72 150.1 kg 03/24/24 Washington Mondragon APRN.SCHEDULE CHECKER 04/30/2024 12:25 PM Signed Ambika Brown is a 34 year old female who presents for problem visit menses discussion. HPI: Ambika's periods are heavy and painful. She has to change a pad hourly. This has been going on since her period returned after delivery. Currently not on control and wants to become . A1C was 6.1 8 months ago. Currently on Metformin and down to 5.8 per patient. Follows with PCP. Has lupus anticoagulant disorder and cHTN. C/S April 2023. Starting new job and concerned about heavy bleeding while at work. OB History T1 L1 SAB4 IAB0 Ectopic1 Multiple0 Live Births1 [employer] Table As[employer] History LMP: 03/24/2024, Having periods Age at Menarche: Age at First : Age at Menopause: [employer] Table As[employer]er History Comments: Sexual Activity: Yes; Male Contraception: Condom PAST MEDICAL HISTORY No date: Asthma No date: Chronic hypertension No date: Clotting disorder (HCC) No date: Fibromyalgia No date: GERD (gastroesophageal reflux disease) No date: Gestational diabetes No date: Hiatal hernia No date: Insulin resistance No date: Lupus anticoagulant disorder (HCC) No date: Migraines No date: Nonsustained ventricular tachycardia (HCC) 07/15/2021: Obesity, Class III, BMI >= 40 No date: Palpitations No date: Paroxysmal supraventricular tachycardia (HCC) No date: Pre-eclampsia No date: Syncope No date: Thyroid disease PAST SURGICAL HISTORY 05/09/2023: DELIVERY ONLY 2014: CHOLECYSTECTOMY 2018: DANDC, DIAG AND/OR THERAPEUTIC 02/13/2022: EP STUDY Comment: comprehensive EP study; normal study, no accessory pathways; +dual AV azra pathways but no inducible SVT; CCAG Dr. Rock 2009: ORAL SURGERY PROCEDURE Comment: wisdom teeth 2005: TONSILLECTOMY HX FAMILY HISTORY Problem Relation Age of Onset Hypothyroidism Mother Cancer Mother glioblastoma Hyperlipidemia Father Hypertension Father Asthma Sister Migraines Sister Bipolar disorder Sister No Known Problems Brother No Known Problems Brother Diabetes Maternal Grandmother Diabetes Maternal Grandfather Stroke Paternal Grandmother other (COVID-19) Paternal Grandmother Heart disease Paternal Grandfather had two open heart surgeries Social History Tobacco Use Smoking status: Never Smokeless tobacco: Never Vaping Use Vaping status: Never Used Substance Use Topics Alcohol use: Never Drug use: Never Current Outpatient Medications Medication Sig ondansetron (ZOFRAN) 8 mg tablet FOR NAUSEA. Take on at onset of nausea or migraine,may repeat dose in 8 hours if needed. naproxen (NAPROSYN) 500 mg tablet Take 1 tablet by mouth two times a day as needed for pain. metoprolol tartrate, short acting, (LOPRESSOR) 50 mg tablet Take 1 tablet by mouth two times a day. levothyroxine (SYNTHROID) 50 mcg tablet Take 50 mcg by mouth every morning. Take On an Empty Stomach aspirin, enteric coated (ASPIRIN, ENTERIC COATED) 81 mg EC tablet Take 81 mg by mouth daily at bedtime. promethazine (PHENERGAN) 25 mg tablet 1/2 to 1 po q8h prn headache or nausea cholecalciferol, vitamin D3, (VITAMIN D3 ORAL) Take by mouth. PNV/FERROUS SULFATE/FOLIC ACID ( MULTIVIT WITH IRON ORAL) Take by mouth daily at bedtime. albuterol HFA (PROVENTIL HFA, VENTOLIN HFA) 90 mcg/actuation inhaler Inhale 2 Puffs as instructed every 4 hours as needed for Wheezing/Shortness of Breath. 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 Abnormal uterine bleeding - ICD9: 626.9, ICD10: N93.9 (primary diagnosis) - Aygestin taper given for upcoming period - Labs and ultrasound ordered - 3 days late for upcoming period, check HCG 2. Class 3 severe obesity with body mass index (BMI) of 50.0 to 59.9 in adult, unspecified obesity type, unspecified whether serious comorbidity present (HCC) - ICD9: 278.01, V85.43, IC (more content not included)... Normal [facility] ESTRADIOL-17B BLDon 04-30-20 24 E2 [Mass/Vol] 100 pg/mL [facility] Comment on above: This test is not rick table for patients receiving treatment with the drug Fulvestrant (Faslodex). The drug causes an interference leading to falsely elevated estradiol results. Menstrual cycle Estradiol reference ranges: Follicular : < 234 pg/mL Ovulation : 41 to 398 pg/mL Luteal : < 342 pg/mL Estradiol reference ranges vary by gestational period: First trimester : 154 to 3243 pg/mL Second trimester : 1561 to 21426 pg/mL Third trimester : 8285 to >19785 pg/mL Post-menopausal Estradiol reference range: < 41 pg/mL Reference: 1. Estradiol - E2 (Estradiol III) [package insert V 3.0 [place]]. [employer] [facility], [place], [place], February 2016. Estradiol SerPl-mCncon 04-30 E2 [Mass/Vol] 100 pg/mL Normal [facility] Comment on above: Order Comment: Speci men Type: BLOOD SPECIMENOrdering Facility: [facility] Address: [address] [place] [address] Result Comment: This test is not suitable for patients receiving treatment with the drug Fulvestrant (Faslodex). The drug causes an interference leading to falsely elevated estradiol results. Menstrual cycle Estradiol reference ranges: Follicular : < 234 pg/mL Ovulation : 41 to 398 pg/mL Luteal : < 342 pg/mL Estradiol reference ranges vary by gestational period: First trimester : 154 to 3243 pg/mL Second trimester : 1561 to 79955 pg/mL Third trimester : 8285 to >45440 pg/mL Post-menopausal Estradiol reference range: < 41 pg/mL Reference: 1. Estradiol - E2 (Estradiol III) [package insert V 3.0 [place]]. [employer], [place], [place], February 2016. Performed By: #### 2 243-4, 81358-1, 3024-7, 3016-3 ####[facility] LABCLIA [id number] [place] [address] [place] FOLLICLE STIMULATING HORMONE on 04-30-2024 Follitropin Qn 2.9 m[IU]/mL See comment mIU/mL [facility] Comment on above: Reference range: Follicular: 3.5-12.5 mIU/mL Ovulation: 4.7-21.5 mIU/mL Luteal: 1.7-7.7 mIU/mL Postmenopausal: 25.8-134.8 mIU/mL [facility] SerPl-aCncon 04-30-2024 Follitropin Qn 2.9 m[IU]/mL Normal See comment [facility] Comment on above: Order Comment: Speci men Type: BLOOD SPECIMENOrdering Facility: [facility] Address: [address] [place], [place] [address] Result Comment: Refe rence range: Follicular: 3.5-12.5 mIU/mL Ovulation: 4.7-21.5 mIU/mL Luteal: 1.7-7.7 mIU/mL Postmenopausal: 25.8-134.8 mIU/mL Performed By: #### 2 243-4, 98039-5, 3024-7, 3016-3 ####[facility] LABIA [id number] [place] [id number] [place] HCG QUANTITATIVEon HCG.beta subunit Qn [facility] Comment on above: Negative HCG.beta subunit Qnon 2023 Interpretation and review of laboratory results Normal [facility] No Panel Informationon 04-30 Interpretation and review of laboratory results Normal [facility] T4 FREE/FREE THYROXINEon Free T4 [Mass/Vol] 1.0 ng/dL 0.9 - 1.7 ng/dL [facility] T4 Free SerPl-mCncon 024 Free T4 [Mass/Vol] 1.0 ng/dL Normal 0.9-1.7 [facility] Comment on above: Order Comment: Speci men Type: BLOOD SPECIMENOrdering Facility: [facility] Address: [address] [place] [address] Performed By: #### 2 243-4, 67742-9, 3024-7, 3016-3 ####[facility] LABIA [id number] [place] [id number] [place] THYROID STIMULATING HORMONEo n 04-30-2024 TSH Qn 2.260 m[IU]/L [facility] Comment on above: If the patient is pr egnant, TSH reference range varies by gestational period: First Trimester (weeks 9-12): 0.180-2.990 mIU/L Second Trimester: 0.110-3.980 mIU/L Third Trimester: 0.480-4.710 mIU/L Jesus Little et al. A Practical Approach for the Verifications and Determination of Site- and Trimester-Specific Reference Intervals for Thyroid Function tests in . Thyroid, 2019:29:3:412-420. Javier Campbell, et al. 2017 Guidelines of the [place] [employer] for the Diagnosis and Management of Thyroid Disease during and the . Thyroid, 2017:27:3:315-389. TSH Leifl-Maral 04-30-2024 TSH Qn 2.260 m[IU]/L Normal 0.270-4.200 [facility] Comment on above: Order Comment: Speci men Type: BLOOD SPECIMENOrdering Facility: [facility] Address: [address] [place] [address] Result Comment: If t he patient is , TSH reference range varies by gestational period: First Trimester (weeks 9-12): 0.180-2.990 mIU/L Second Trimester: 0.110-3.980 mIU/L Third Trimester: 0.480-4.710 mIU/L Jesus Little et al. A Practical Approach for the Verifications and Determination of Site- and Trimester-Specific Reference Intervals for Thyroid Function tests in . Thyroid, 2019:29:3:412-420. Javier Campbell et al. 2017 Guidelines of the [place] Thy[employer] for the Diagnosis and Management of Thyroid Disease during and the . Thyroid, 2017:27:3:315-389. Performed By: #### 2 243-4, 43230-1, 3024-7, 3016-3 ####[facility] LABCLIA [id number] [facility] [place] [address] [place] CBC with AUTO DIFFon 024 BAS0 % 0.30 % Normal 0-2 [facility] Comment on above: Performed By: #### M N #### [facility] [address] [place] [address] Basophils (Bld) [#/Vol] 0.0 10*3/uL Normal 0-0.1 [facility] Comment on above: Performed By: #### M N #### [facility] [address] [place] [address] Eosinophils (Bld) [#/Vol] 0.3 10*3/uL Normal 0.0-1.80 [facility] Comment on above: Performed By: #### M N #### [facility] [address] [place] [address] Eosinophils/100 WBC (Bld) 2.7 % Normal 0-8 [facility] Comment on above: Performed By: #### M N #### [facility] [address] [place] [address] GRAN # 6.2 K/uL Normal 2.2-9.1 [facility] Comment on above: Performed By: #### M N #### [facility] [address] [place] [address] GRAN % 65.7 % Normal 42-80 [facility] Comment on above: Performed By: #### M N #### [facility] [address] [place] [place] [address] Hematocrit (Bld) [Volume fraction] 38.6 % Normal 37.0-47.0 [facility] Comment on above: Performed By: #### M N #### [address] [place] [address] Hemoglobin (Bld) [Mass/Vol] 12.6 g/dL Normal 12.0-16.0 [facility] Comment on above: Performed By: #### M N #### [address] [place] [address] Lymphocytes (Bld) [#/Vol] 2.4 10*3/uL Normal 1.0-4.0 [facility] Comment on above: Performed By: #### M N #### [address] [place] [address] Lymphocytes/100 WBC (Bld) 25.6 % Normal 16-48 [facility] Comment on above: Performed By: #### M N #### [address] [address] MCV (RBC) [Entitic vol] 74.8 fL Low 80-97 [facility] Comment on above: Performed By: #### M N #### [facility] [address] [place] [address] MEAN CORPUSCULAR HGB 24.4 pg Low 26.0-32.0 [facility] Comment on above: Performed By: #### M N #### [address] [address] MEAN CORPUSCULAR HGB CONC 32.6 g/dL Normal 31.0-36.0 [facility] Comment on above: Performed By: #### M N #### [facility] [address] [place] [address] MONO DISTRIB WIDTH Not performed Normal 0-20 [facility] Comment on above: Performed By: #### M N #### [facility] [address] [place] [address] Monocytes (Bld) [#/Vol] 0.5 10*3/uL Normal 0.1-1.7 [facility] Comment on above: Performed By: #### M N #### [facility] [address] [place] [address] Monocytes/100 WBC (Bld) 5.7 % Normal 3-9 [facility] Comment on above: Performed By: #### M N #### [facility] [address] [place] [address] Platelet mean volume (Bld) [Entitic vol] 10.8 fL High 6.6-10.5 [facility] Comment on above: Performed By: #### M N #### [address] [place] [address] Platelets (Bld) [#/Vol] 214 10*3/uL Normal 140-450 [facility] Comment on above: Performed By: #### M N #### [facility] [address] [place] [address] RBC (Bld) [#/Vol] 5.15 10*6/uL Normal 4.20-5.50 [facility] Comment on above: Performed By: #### M N #### [facility] [address] [place] [address] RED CELL DISTRI WIDTH 17.1 % High 11.0-15.5 [facility] Comment on above: Performed By: #### M N #### [facility] [address] [place] [address] WBC (Bld) [#/Vol] 9.4 10*3/uL Normal 4.0-11.0 [facility] Comment on above: Performed By: #### M N #### [facility] [address] [place] [address] COMPREHENSIVE METABOLIC PANE Maurilio 04-09-2024 Albumin [Mass/Vol] 3.4 g/dL Normal 3.4-5.0 [facility] Comment on above: Performed By: #### M N, LIPID, TSH ####[facility] [facility] [place] [address] Albumin/Globulin [Mass ratio] 0.8 {ratio} Low 1.1-1.8 [facility] Comment on above: Performed By: #### M N, LIPID, TSH ####[facility] [facility] [place] [address] ALP [Catalytic activity/Vol] 124 U/L High 45-117 [facility] Comment on above: Performed By: #### M N, LIPID, TSH ####[facility] [facility] [place] [address] ALT [Catalytic activity/Vol] 40 U/L Normal 12-78 [facility] Comment on above: Performed By: #### M Cecy, LIPID, TSH ####[address] [place] [address] Anion gap [Moles/Vol] 9.9 mmol/L Low 11-23 [facility] Comment on above: Performed By: #### M Cecy, LIPID, TSH ####[address] [place] [address] AST [Catalytic activity/Vol] 23 U/L Normal 15-37 [facility] Comment on above: Performed By: #### M Ceyc, LIPID, TSH ####[facility] [facility] [place] [address] Bilirubin [Mass/Vol] 0.4 mg/dL Normal 0.2-1.0 [facility] Comment on above: Performed By: #### M Cecy, LIPID, TSH ####[facility] [facility] [place] [address] Calcium [Mass/Vol] 8.9 mg/dL Normal 8.5-10.1 [facility] Comment on above: Performed By: #### M N, LIPID, TSH ####[facility] [facility] [place] [address] Chloride [Moles/Vol] 107 mmol/L Normal 98-107 [facility] Comment on above: Performed By: #### M N, LIPID, TSH ####[facility] [facility] [place] [address] CO2 [Moles/Vol] 25.0 mmol/L Normal 21-32 [facility] Comment on above: Performed By: #### M N, LIPID, TSH ####[place] [address] [facility] [place] [address] Creatinine [Mass/Vol] 0.60 mg/dL Normal 0.55-1.02 [facility] Comment on above: Performed By: #### M N, LIPID, TSH ####[place] [address] [facility] [place] [address] GFR > 60.0 [facility] Comment on above: Performed By: #### M N, LIPID, TSH ####[place] [address] [facility] [place] [address] GFR AM > 60.0 [facility] Comment on above: Result Comment: THE NORMAL LEVEL OF GFR VARIES ACCORDING TO AGE, SEX, AND BODY SIZE. A GFR LEVEL OF LESS THAN 60 ML/MIN REPRESENTS LOSS OF THE ADULT LEVEL OF NORMAL KIDNEY FUNCTION. Performed By: #### M N, LIPID, TSH ####[place] [address] [place] [address] Globulin (S) [Mass/Vol] 4.4 g/dL Normal 2.5-4.6 [facility] Comment on above: Performed By: #### M N, LIPID, TSH ####[place] [address] [facility] [place] [address] Glucose [Mass/Vol] 100 mg/dL Normal 70-100 [facility] Comment on above: Performed By: #### M N, LIPID, TSH ####[place] [address] [place] [address] Potassium [Moles/Vol] 3.9 mmol/L Normal 3.5-5.1 [facility] Comment on above: Performed By: #### M N, LIPID, TSH ####[place] [address] [facility] [place] [address] Protein [Mass/Vol] 7.8 g/dL Normal 6.0-8.3 [facility] Comment on above: Performed By: #### M N, LIPID, TSH ####[place] [address] [facility] [place] [address] Sodium [Moles/Vol] 138 mmol/L Normal 136-145 [facility] Comment on above: Performed By: #### M N, LIPID, TSH ####[place] [address] [place] [address] Urea nitrogen [Mass/Vol] 12.0 mg/dL Normal 7-18 [facility] Comment on above: Performed By: #### M N, LIPID, TSH ####[facility] [facility] [place] [address] GLYCOHEMOGLOBIN (A1C)on 03-12 Glucose [Mass/Vol] 120 mg/dL Normal [facility] Comment on above: Performed By: #### G LY #### [facility] [address] [place] [address] HbA1c (Bld) [Mass fraction] 5.8 % Normal [facility] Comment on above: Result Comment: Inte rpretation of Hgb A1C results: <5.7% Normal 5.7% - 6.4% Prediabetes >6.4% Diabetes SAMPLES FROM PATIENTS WITH HEMOLYTIC ANEMIAS OR THE PRESENCE OF UNSTABLE HEMOGLOBINS LIKE HbSS OR HbSC WILL EXHIBIT DECREASED GLYCATED HGB DUE TO THE SHORTENED LIFE SPAN OF THE RED CELLS.RESULTS ARE NOT RELIABLE IN PATIENTS WITH CHRONIC BLOOD LOSS. Performed By: #### G LY #### [address] [place] [address] LIPID PROFILE (FASTING)on CHOL/HDL RATIO 3.4 mg/dl Normal 3.7-5.6 [facility] Comment on above: Performed By: #### M N, LIPID, TSH ####[facility] [place] [address] Cholesterol [Mass/Vol] 151 mg/dL Normal 0-200 [facility] Comment on above: Performed By: #### M N, LIPID, TSH ####[facility] [place] [address] Cholesterol in HDL [Mass/Vol] 44 mg/dL Normal 40-60 [facility] Comment on above: Performed By: #### M N, LIPID, TSH ####[facility] [place] [address] Cholesterol in LDL [Mass/Vol] 91 mg/dL Normal 0-130 [facility] Comment on above: Performed By: #### M N, LIPID, TSH ####[address] [place] [address] Triglyceride [Mass/Vol] 77 mg/dL Normal 0-150 [facility] Comment on above: Performed By: #### M N, LIPID, TSH ####[facility] [place] [address] VLDL CALCULATION 15 mg/dl Normal 5-40 [facility] Comment on above: Performed By: #### M N, LIPID, TSH ####[facility] [place] [address] MICROALBUMIN (RANDOM)on 03-12 Creatinine (U) [Mass/Vol] 50.0 mg/dL Normal [facility] Comment on above: Result Comment: NO R EFERENCE RANGES AVAILABLE FOR RANDOM URINE SPECIMENS. Performed By: #### M ALB ####[place] [place] [place] [address] MICROALB/CREA RATIO 13.0 mg/g Normal 0-30 [facility] Comment on above: Performed By: #### M ALB ####[place] [address] [place] [place] [address] MICROALBUMIN MG/L 6.5 mg/L Normal [facility] Comment on above: Result Comment: NO R EFERENCE RANGES AVAILABLE FOR RANDOM URINE SPECIMENS. 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 Pain going into 4th metatarsal as well. TECHNIQUE: XR TOE 3V AP/LAT/OBL LT COMPARISON: None FINDINGS: No fractures or dislocations are seen. The bones, joint spaces and soft tissues are unremarkable. DIVISION OF RADIOLOGY Provider, Karthikeyan Stevenson - 12/15/2023 * * *Final Report* * * DATE OF EXAM: Dec 15 2023 11:05AM WOX 5268 - XR TOE 3V AP/LAT/OBL LT / PROCEDURE REASON: Toe pain, left * * * * Physician Interpretation * * * * PROCEDURE: Left 4th toe INDICATION: Toe pain, left .Left 4th toe pain after stubbing toe yesterday. Pain going into 4th metatarsal as well. TECHNIQUE: XR TOE 3V AP/LAT/OBL LT COMPARISON: None FINDINGS: No fractures or dislocations are seen. The bones, joint spaces and soft tissues are unremarkable. IMPRESSION IMPRESSION: Negative 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: ALLEN Transcribe Date/Time: Dec 15 2023 11:25A Dictated by : UMAIR BAILEY MD This examination was interpreted and the report reviewed and electronically signed by: UMAIR BAILEY MD on Dec 15 2023 11:25AM [facility] Radiology Study observation (narrative) [facility] XR Toes - left 3 ViewsOrdere d By: Ccf Provider on 12-15-2023 [facility] Absolute lymphocyte countOrd ered By: Alison Díaz on 11-20-2023 Lymphocytes Auto (Unsp spec) [#/Vol] 2.36 10*3/uL 0.83-4.51 [facility] Automated lymphocyte count a s percentage of total leukocytesOrdered By: Alison Díaz on 11-20-2023 Lymphocytes/100 WBC Auto (Unsp spec) 23.8 % 19-41 [facility] Basophil percentageOrdered B y: Alison Díaz on 11-20-2023 Basophils/100 WBC (Bld) 0.2 % 0-1 [facility] Chloride [Moles/Vol] 108 mmol/L 98-107 [facility] Eosinophils/100 WBC (Bld) 2.7 % 0-5 [facility] Glucose [Mass/Vol] 125 mg/dL 74-106 [facility] Comment on above: Fasting Glucose resu lt from 100 to 125 mg/dL suggests IMPAIRED HOMEOSTASIS per A.D.A. criteria. Hemoglobin (Bld) [Mass/Vol] 12.6 g/dL 12.0-15.0 [facility] Monocytes/100 WBC (Bld) 4.2 % 0-10 [facility] Neutrophils (Bld) [#/Vol] 6.8 10*3/uL 2.0-7.7 [facility] Neutrophils/100 WBC (Bld) 68.7 % 47-70 [facility] Potassium [Moles/Vol] 3.6 mmol/L 3.5-5.1 [facility] Sodium [Moles/Vol] 140 mmol/L 136-145 [facility] WBC (Bld) [#/Vol] 9.9 10*3/uL 4.4-11.0 [facility] Determination of erythrocyte mean corpuscular volume (MCV)Ordered By: Alison Díaz on 11-20-2023 MCV (RBC) [Entitic vol] 77.5 fL 81-99 [facility] Erythrocyte distribution wid th ratioOrdered By: Alison Díaz on 11-20-2023 Erythrocyte distribution width (RBC) [Ratio] 15.8 % 11.6-14.6 [facility] Erythrocyte distribution wid th standard deviationOrdered By: Alison Díaz on 11-20-2023 Erythrocyte distribution width (RBC) [Entitic vol] 44.2 fL 35.1-43.9 [facility] Hematocrit Auto (Bld) [Volum e fraction]Ordered By: Alison Díaz on 11-20-2023 Hematocrit (Bld) [Volume fraction] 40.9 % 37-47 [facility] Immature granulocytes/100 WB C Auto (Bld)Ordered By: Alison Díaz on 11-20-2023 Immature granulocytes/100 WBC (Bld) 0.400 % 0.0-0.9 [facility] Comment on above: IG% - Immature Granu locytes (promyelocytes, myelocytes and metamyelocytes) > 1% indicates that a LEFT SHIFT is Present. Laboratory - Chemistry and C hemistry - challengeOrdered By: Alison Díaz on 11-20-2023 CO2 [Moles/Vol] 25.0 mmol/L 21.0-32.0 [facility] Magnesium [Mass/Vol] 2.0 mg/dL 1.6-2.6 [facility] Urea nitrogen/Creatinine [Mass ratio] 15.3 mg/mg 10-20 [facility] Laboratory - Hematology and Cell countsOrdered By: Alison Díaz on 11-20-2023 MCH (RBC) [Entitic mass] 23.9 pg 27.0-32.0 [facility] MCHC (RBC) [Mass/Vol] 30.8 g/dL 32-36 [facility] Nucleated RBC/100 WBC (Bld) [Ratio] 0 % 0-5 [facility] Platelet mean volume (Bld) [Entitic vol] 11.7 fL 6.2-12.0 [facility] Platelets (Bld) [#/Vol] 296 10*3/uL 150-450 [facility] No Panel InformationOrdered By: Alison Díaz on 11-20-2023 Estimated GFR (MDRD) Amer 121 mL/min >60 [facility] Comment on above: GFR Calc Estimated GFR (MDRD) Non-Af Amer 100 mL/min >60 [facility] Comment on above: Non- GFR Calc RBC Auto (Bld) [#/Vol]Ordere d By: Alison Díaz on 11-20-2023 RBC (Bld) [#/Vol] 5.28 10*6/uL 4.2-5.4 [facility] Serum or plasma calcium prieto urement (mass/volume)Ordered By: Alison Díaz on 11-20-2023 Calcium [Mass/Vol] 8.8 mg/dL 8.5-10.1 [facility] Serum or plasma creatinine m easurement (mass/volume)Ordered By: Alison Díaz on 11-20-2023 Creatinine [Mass/Vol] 0.72 mg/dL 0.55-1.02 [facility] Comment on above: The validity of the calculated GFR & GFRAA in patients over 70 years has not been determined. Clinical correlation is essential. Serum or plasma thyroid stim ulating hormone (TSH) measurement (units/volume)Ordered By: Alison Díaz on 11-20-2023 TSH Qn 2.02 uIU/mL 0.358-3.74 [facility] Serum or plasma urea nitroge n measurement (mass/volume)Ordered By: Alison Díaz on 11-20-2023 Urea nitrogen [Mass/Vol] 11 mg/dL 7-18 [facility] Thin prep Papanicolaou smear with manual screeningOrdered By: Alison Díaz on 11-20-2023 Thin prep Papanicolaou smear with manual screening 7 5-15 [facility] CBC W Auto Differential pane l (Bld)on 09-30-2023 Basophils (Bld) [#/Vol] 0.04 10*3/uL Normal <0.11 [facility] Comment on above: Order Comment: Speci men Type: BLOOD SPECIMEN Ordering Facility: [facility] Address: [address] [place] [address] Performed By: #### 5 7021-8 #### [facility] CLIA [id number] [address] [place] [address] [place] Basophils/100 WBC (Bld) 0.3 % Normal [facility] Comment on above: Order Comment: Speci men Type: BLOOD SPECIMEN Ordering Facility: [facility] Address: [address] [place] [address] Performed By: #### 5 7021-8 #### [facility] CLIA [id number] [address] [place] [address] [place] Differential cell count method Nom (Bld) Auto Normal [facility] Comment on above: Order Comment: Speci men Type: BLOOD SPECIMEN Ordering Facility: [facility] Address: [address] [place] [address] Performed By: #### 5 7021-8 #### [facility] CLIA [id number] [address] [place] [address] [place] Eosinophils (Bld) [#/Vol] 0.27 10*3/uL Normal <0.46 [facility] Comment on above: Order Comment: Speci men Type: BLOOD SPECIMEN Ordering Facility: [facility] Address: [address] [place] [address] Performed By: #### 5 7021-8 #### [facility] CLIA [id number] [address] [place] [address] [place] Eosinophils/100 WBC (Bld) 2.1 % Normal [facility] Comment on above: Order Comment: Speci men Type: BLOOD SPECIMEN Ordering Facility: [facility] Address: [address] [place] [address] Performed By: #### 5 7021-8 #### [facility] CLIA [id number] [address] [place] [address] [place] Erythrocyte distribution width (RBC) [Ratio] 15.9 % High 11.5-15.0 [facility] Comment on above: Order Comment: Speci men Type: BLOOD SPECIMEN Ordering Facility: [facility] Address: [address] [place] [address] Performed By: #### 5 7021-8 #### [facility] CLIA [id number] [address] [place] [address] [place] Hematocrit (Bld) [Volume fraction] 40.3 % Normal 36.0-46.0 [facility] Comment on above: Order Comment: Speci men Type: BLOOD SPECIMEN Ordering Facility: [facility] Address: [address] [place] [address] Performed By: #### 5 7021-8 #### [facility] CLIA [id number] [address] [place] [address] [place] Hemoglobin (Bld) [Mass/Vol] 12.9 g/dL Normal 11.5-15.5 [facility] Comment on above: Order Comment: Speci men Type: BLOOD SPECIMEN Ordering Facility: [facility] Address: [address] [place] [address] Performed By: #### 5 7021-8 #### [facility] CLIA [id number] [address] [place] [address] [place] Immature granulocytes (Bld) [#/Vol] 0.04 10*3/uL Normal <0.10 [facility] Comment on above: Order Comment: Speci men Type: BLOOD SPECIMEN Ordering Facility: [facility] Address: [address] [place] [address] Performed By: #### 5 7021-8 #### [facility] CLIA [id number] [address] [place] [address] [place] Immature granulocytes/100 WBC (Bld) 0.3 % Normal [facility] Comment on above: Order Comment: Speci men Type: BLOOD SPECIMEN Ordering Facility: [facility] Address: [address] [place] [address] Performed By: #### 5 7021-8 #### [facility] CLIA [id number] [address] [place] [address] [place] Lymphocytes (Bld) [#/Vol] 2.74 10*3/uL Normal 1.00-4.00 [facility] Comment on above: Order Comment: Speci men Type: BLOOD SPECIMEN Ordering Facility: [facility] Address: [address] [place] [address] Performed By: #### 5 7021-8 #### [facility] CLIA [id number] [address] [place] [address] [place] Lymphocytes/100 WBC (Bld) 21.1 % Normal [facility] Comment on above: Order Comment: Speci men Type: BLOOD SPECIMEN Ordering Facility: [facility] Address: [address] [place] [address] Performed By: #### 5 7021-8 #### [facility] CLIA [id number] [address] [place] [address] [place] MCH (RBC) [Entitic mass] 24.7 pg Low 26.0-34.0 [facility] Comment on above: Order Comment: Speci men Type: BLOOD SPECIMEN Ordering Facility: [facility] Address: [address] [place] [address] Performed By: #### 5 7021-8 #### [facility] CLIA [id number] [address] [place] [address] [place] MCHC (RBC) [Mass/Vol] 32.0 g/dL Normal 30.5-36.0 [facility] Comment on above: Order Comment: Speci men Type: BLOOD SPECIMEN Ordering Facility: [facility] Address: [address] [place] [address] Performed By: #### 5 7021-8 #### [facility] CLIA [id number] [address] [place] [address] [place] MCV (RBC) [Entitic vol] 77.1 fL Low 80.0-100.0 [facility] Comment on above: Order Comment: Speci men Type: BLOOD SPECIMEN Ordering Facility: [facility] Address: [address] [place] [address] Performed By: #### 5 7021-8 #### [facility] CLIA [id number] [address] [place] [address] [place] Monocytes (Bld) [#/Vol] 0.75 10*3/uL Normal <0.87 [facility] Comment on above: Order Comment: Speci men Type: BLOOD SPECIMEN Ordering Facility: [facility] Address: [address] [place] [address] Performed By: #### 5 7021-8 #### [facility] CLIA [id number] [address] [place] [address] [place] Monocytes/100 WBC (Bld) 5.8 % Normal [facility] Comment on above: Order Comment: Speci men Type: BLOOD SPECIMEN Ordering Facility: [facility] Address: [address] [place] [address] Performed By: #### 5 7021-8 #### [facility] CLIA [id number] [address] [place] [address] [place] Neutrophils (Bld) [#/Vol] 9.13 10*3/uL High 1.45-7.50 [facility] Comment on above: Order Comment: Speci men Type: BLOOD SPECIMEN Ordering Facility: [facility] Address: [address] [place] [address] Performed By: #### 5 7021-8 #### [facility] CLIA [id number] [address] [place] [address] [place] Neutrophils/100 WBC (Bld) 70.4 % Normal [facility] Comment on above: Order Comment: Speci men Type: BLOOD SPECIMEN Ordering Facility: [facility] Address: [address] [place] [address] Performed By: #### 5 7021-8 #### [facility] CLIA [id number] [address] [place] [address] [place] Nucleated RBC (Bld) [#/Vol] 10*3/uL Normal <0.01 [facility] Comment on above: Order Comment: Speci men Type: BLOOD SPECIMEN Ordering Facility: [facility] Address: [address] [place] [address] Performed By: #### 5 7021-8 #### [facility] CLIA [id number] [address] [place] [address] [place] Nucleated RBC/100 WBC (Bld) [Ratio] 0.0 /100 WBC Normal [facility] Comment on above: Order Comment: Speci men Type: BLOOD SPECIMEN Ordering Facility: [facility] Address: [address] [place] [address] Performed By: #### 5 7021-8 #### [facility] CLIA [id number] [address] [place] [address] [place] Platelet mean volume (Bld) [Entitic vol] 11.1 fL Normal 9.0-12.7 [facility] Comment on above: Order Comment: Speci men Type: BLOOD SPECIMEN Ordering Facility: [facility] Address: [address] [place] [address] Performed By: #### 5 7021-8 #### [facility] CLIA [id number] [address] [place] [address] [place] Platelets (Bld) [#/Vol] 277 10*3/uL Normal 150-400 [facility] Comment on above: Order Comment: Speci men Type: BLOOD SPECIMEN Ordering Facility: [facility] Address: [address] [place] [address] Performed By: #### 5 7021-8 #### [facility] CLIA [id number] [address] [place] [address] [facility] RBC (Bld) [#/Vol] 5.23 10*6/uL High 3.90-5.20 [facility] Comment on above: Order Comment: Speci men Type: BLOOD SPECIMEN Ordering Facility: [facility] Address: [address] [place] [address] Performed By: #### 5 7021-8 #### [facility] CLIA [id number] [address] [place], [place] [address] [facility] WBC (Bld) [#/Vol] 12.97 10*3/uL High 3.70-11.00 [facility] Comment on above: Order Comment: Speci men Type: BLOOD SPECIMEN Ordering Facility: [facility] Address: [address] [place] [address] Performed By: #### 5 7021-8 #### [facility] CLIA [id number] [address] [place], [place] [address] [facility] Comprehensive metabolic 2000 panelon 09-30-2023 Albumin [Mass/Vol] 3.6 g/dL Normal 3.2-5.0 [facility] Comment on above: Order Comment: Speci men Type: BLOOD SPECIMENOrdering Facility: [facility] Address: [address] [place] [address] Performed By: #### 2 4323-8, 28940-7, 3040-3, HCG ####[facility]ORYCLIA [id number] [address] [place] ALP [Catalytic activity/Vol] 170 U/L High 45-117 [facility] Comment on above: Order Comment: Speci men Type: BLOOD SPECIMENOrdering Facility: [facility] Address: [address] [place] [address] Performed By: #### 2 4323-8, 49062-7, 3040-3, HCG ####[facility]ORYCLIA [id number] [place] [address] [facility] ALT [Catalytic activity/Vol] 41 U/L Normal 13-61 [facility] Comment on above: Order Comment: Speci men Type: BLOOD SPECIMENOrdering Facility: [facility] Address: [address] [place] [address] Result Comment: Resu lts may be falsely depressed after the administration of Sulfasalazine and/or Sulfapyridine. Performed By: #### 2 4323-8, 96221-6, 304-3, HCG ####[facility]ORYCLIA [id number] [place] [address] [place] Anion gap [Moles/Vol] 9 mmol/L Normal 5-16 [facility] Comment on above: Order Comment: Speci men Type: BLOOD SPECIMENOrdering Facility: [facility] Address: [address] [place] [address] Performed By: #### 2 4323-8, , 3039-3, HCG ####[facility]ATORYCLIA [id number] [place] [address] [place] AST [Catalytic activity/Vol] 30 U/L Normal 8-34 [facility] Comment on above: Order Comment: Speci men Type: BLOOD SPECIMENOrdering Facility: [facility] Address: [address] [place] [address] Result Comment: Resu lts may be falsely depressed after the administration of Sulfasalazine and/or Sulfapyridine. Performed By: #### 2 4323-8, 25516-8, 3039-3, HCG ####[facility]ORYCLIA [id number] [place] [address] [place] Bilirubin [Mass/Vol] 0.4 mg/dL Normal 0.2-1.0 [facility] Comment on above: Order Comment: Speci men Type: BLOOD SPECIMENOrdering Facility: [facility] Address: [address] [place] [address] Performed By: #### 2 4323-8, 92591-2, 3040-3, HCG ####[facility]ORYCLIA [id number] [place] [address] [place] Calcium [Mass/Vol] 10.0 mg/dL Normal 8.5-10.5 [facility] Comment on above: Order Comment: Speci men Type: BLOOD SPECIMENOrdering Facility: [facility] Address: [address] [place], [place] [address] Performed By: #### 2 4323-8, , 3, HCG ####[facility]ORYCLIA [id number] [place] [address] [place] Chloride [Moles/Vol] 103 mmol/L Normal 98-107 [facility] Comment on above: Order Comment: Speci men Type: BLOOD SPECIMENOrdering Facility: [facility] Address: [address] [place] [address] Performed By: #### 2 4323-8, , 3039-11, HCG ####[facility]ORYCLIA [id number] [place] [address] [place] CO2 [Moles/Vol] 29 mmol/L Normal 21-32 [facility] Comment on above: Order Comment: Speci men Type: BLOOD SPECIMENOrdering Facility: [facility] Address: [address] [place] [address] Performed By: #### 2 4323-8, , 3039-11, HCG ####[facility]ORYCLIA [id number] [place] [address] [place] Creatinine [Mass/Vol] 0.67 mg/dL Normal 0.51-0.95 [facility] Comment on above: Order Comment: Speci men Type: BLOOD SPECIMENOrdering Facility: [facility] Address: [address] [place] [address] Result Comment: Maddie ents receiving either N-Acetylcysteine (NAC) or Metamizole prior to venipuncture, may have falsely depressed results. Performed By: #### 2 4323-8, , 3, HCG ####[facility]ORYCLIA [id number] [place] [address] [place] Creatinine and Glomerular filtration rate.predicted panel (S/P/Bld) 119 mL/min/1.73m??? Normal >=60 [facility] Comment on above: Order Comment: Otis barfield Type: BLOOD SPECIMENOrdering Facility: [facility] Address: [address] [place] [address] Result Comment: Duy mated Glomerular Filtration Rate (eGFR) is calculated using the 2020 CKD-EPI creatinine equation. This equation utilizes serum creatinine, sex, and age as parameters. The creatinine assay has traceable calibration to isotope dilution-mass spectrometry. Refer to KDIGO guidelines for clinical interpretation. In patients with unstable renal function, e.g. those with acute kidney injury, the eGFR may not accurately reflect actual GFR. Performed By: #### 2 4323-8, 25551-0, 0-3, HCG ####[facility]ORYCLIA [id number] [place] [address] [place] Glucose [Mass/Vol] 125 mg/dL High 70-100 [facility] Comment on above: Order Comment: tOis barfield Type: BLOOD SPECIMENOrdering Facility: [facility] Address: [address] [place] [address] Result Comment: The [place] [employer] (ADA) provides guidance for cutoff values for fasting glucose and random glucose. The ADA defines fasting as no caloric intake for at least 8 hours. Fasting plasma glucose results between 100 to 125 mg/dL indicate increased risk for diabetes (prediabetes). Fasting plasma glucose results greater than or equal to 126 mg/dL meet the criteria for diagnosis of diabetes. In the absence of unequivocal hyperglycemia, results should be confirmed by repeat testing. In a patient with classic symptoms of hyperglycemia or hyperglycemic crisis, random plasma glucose results greater than or equal to 200 mg/dL meet the criteria for diagnosis of diabetes. Reference: Standards of Medical Care in Diabetes 2016, [place] [employer]. Diabetes Care. 2016.39(Suppl 1). Results may be falsely elevated after the administration of Sulfapyridine. Results may be falsely depressed after the administration of Sulfasalazine. Performed By: #### 2 4323-8, 00811-4, 3040-3, HCG ####[facility]ORYCLIA [id number] [place] [address] [place] Potassium [Moles/Vol] 3.7 mmol/L Normal 3.5-5.1 [facility] Comment on above: Order Comment: Speci men Type: BLOOD SPECIMENOrdering Facility: [facility] Address: [address] [facility] [place] [address] Performed By: #### 2 4323-8, , 0-3, HCG ####[facility]ORYCLIA [id number] [place] [id number] [place] Protein [Mass/Vol] 7.6 g/dL Normal 6.0-8.5 [facility] Comment on above: Order Comment: Speci men Type: BLOOD SPECIMENOrdering Facility: [facility] Address: [place] [address] Performed By: #### 2 4323-8, , 3, HCG ####[facility]ORYCLIA [id number] [place] [address] [place] Sodium [Moles/Vol] 141 mmol/L Normal 136-145 [facility] Comment on above: Order Comment: Speci men Type: BLOOD SPECIMENOrdering Facility: [facility] Address: [place] [address] Performed By: #### 2 4323-8, , 3, HCG ####[facility]ORYCLIA [id number] [place] [address] [place] Urea nitrogen [Mass/Vol] 16 mg/dL Normal 7-26 [facility] Comment on above: Order Comment: Speci men Type: BLOOD SPECIMENOrdering Facility: [facility] Address: [place] [address] Performed By: #### 2 4323-8, , 3, HCG ####[facility]ORYCLIA [id number] [place] [id number] [place] D dimer FEU PPP-mCncon 09-30 Fibrin D-dimer FEU (PPP) [Mass/Vol] 270 ng/mL FEU Normal <500 [facility] Comment on above: Order Comment: Speci men Type: BLOOD SPECIMENOrdering Facility: [facility] Address: [place] [address] Performed By: #### 3 4528-0, 61831-6, 95644-5 ####[facility]ORYCLIA [id number] [facility] [place] [id number] [place] ECG COMPLETEon 09-30-2023 ECG COMPLETE Ventricular Rate : 1 08 BPM Atrial Rate : 108 BPM P-R Interval : 170 ms QRS Duration : 80 ms Q-T Interval : 356 ms QTC Calculation(Bazett) : 478 ms Calculated P [place] : 51 degrees Calculated R [place] : 32 degrees Calculated T [place] : 55 degrees Sinus tachycardia Nonspecific T wave abnormality Prolonged QT Abnormal ECG No previous ECGs available Confirmed by DESI VIGIL MD ([id number]) on 10/01/2023 8:49:17 PM NAME : AMBIKA BROWN PID : [id number] : 1990 Gender : Female Race : ORD : [id number] Procedure Date : Sep 30 2023 14:42:40 Edit Date : Oct 01 2023 20:49:21 Diagnosis: Sinus tachycardia Nonspecific T wave abnormality Prolonged QT Abnormal ECG No previous ECGs available Confirmed by DESI VIGIL MD ([id number]) on 10/01/2023 8:49:17 PM Test Reason : STAT Location : 0 : ED 09 Overread By : DESI VIGIL MD Edited By : DESI VIGIL MD Referred By : , Acquired by : [facility] ED NOTEon 09-30-2023 ED NOTE HNO ID: [id number] Author: RENNY CHAVEZ RN Service: ? Author Type: Registered Nurse Type: ED Notes Filed: 09/30/2023 15:30 Note Text: Pt presents for episodes of heart skipping a beat for past few hours. Hx of same. States was walking with baby and started feeling chest skip and started becoming lightheaded. Pt had episode of syncope in triage during initial assessment, states hx of same.chest is sore on Lside. No SOB/Dizziness at this time 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 Pt states has been having ongoing issues with her heart but cardiology not sure what's going on yet. Short of breath. Pt has an implanted loop recorder. HPI Ambika Brown is a 33 year old female who presents to the ED due to fast heart rate she has a loop recorder in and follows with cardiology in [place] but has not really seen them for the past 6 months. She states that she has ongoing issues with PVCs and paroxysmal SVT. She has underlying lupus anticoagulation and recently started a low-dose thyroid replacement medication. She reports today she was sitting at dinner and felt like her heart was racing associated with some shortness of breath so she comes in for evaluation. At the time I evaluated the patient she had improvement of symptoms. She states that this has been an ongoing chronic issue but her watch said atrial fibrillation so she comes in. See MDM/ED course for further HPI. ROS Review of Systems Positive findings noted in HPI, MDM or ED course. Nursing/triage notes and assessments as well as vitals were reviewed and incorporated PAST MEDICAL HISTORY Diagnosis Date Asthma Clotting disorder (HCC) Fibromyalgia GERD (gastroesophageal reflux disease) Hiatal hernia Insulin resistance Lupus anticoagulant disorder (HCC) Migraines Nonsustained ventricular tachycardia (HCC) Obesity, Class III, BMI >= 40 07/15/2021 Palpitations Paroxysmal supraventricular tachycardia Syncope Thyroid disease PAST SURGICAL HISTORY Procedure Laterality Date DELIVERY ONLY 05/09/2023 CHOLECYSTECTOMY 2013 DANDC, DIAG AND/OR THERAPEUTIC 2018 EP STUDY 02/13/2022 comprehensive EP study; normal study, no accessory pathways; +dual AV azra pathways but no inducible SVT; CCAG Dr. Rock ORAL SURGERY PROCEDURE 2009 wisdom teeth TONSILLECTOMY HX 2004 FAMILY HISTORY Problem Relation Age of Onset Hypothyroidism Mother Cancer Mother glioblastoma Hyperlipidemia Father Hypertension Father Asthma Sister Migraines Sister Bipolar disorder Sister No Known Problems Brother No Known Problems Brother Diabetes Maternal Grandmother Diabetes Maternal Grandfather Stroke Paternal Grandmother other (COVID-19) Paternal Grandmother Heart disease Paternal Grandfather had two open heart surgeries Social History Tobacco Use Smoking status: Never Smokeless tobacco: Never Vaping Use Vaping Use: Never used Substance and Sexual Activity Alcohol use: Never Drug use: Never Sexual activity: Yes Partners: Male control/protection: Condom ALLERGIES Allergen Reactions Prochlorperazine Other: See Comments Compazine Diphenhydramine Other: See Comments Physical Exam Vitals BP Pulse Temp Temp src Resp SpO2 Weight Height 09/30/23 1442 09/30/23 1442 09/30/23 1442 09/30/23 1442 09/30/23 1442 09/30/23 1528 09/30/23 1442 09/30/23 1442 157/74 (!) 111 36.8 ?C (98.3 ?F) Oral 22 95 % (!) 145.2 kg (320 lb) 1.702 m (5' 7) Physical Exam General: alert, speaking in full sentences, does not appear ill, Obese, anxious HEENT: EOMI, eyes equal and reactive to light, no scleral injection or tearing, head and face atraumatic Neck: FROM, no meningismus, supple, no lymphadenopathy, no JVD or goiter Chest: no respiratory distress, nontender and atraumatic, normal breath sounds throughout, no pleuritic pain Cardiac: no rubs, tachycardic regular rhythm Abdomen: atraumatic, obese abdomen, no focal tenderness, no Gamble sign, no pulsatile masses or abdominal bruits Extremities: atraumatic, no joint effusions, no edema, no Homans Skin: warm, dry, no rashes Neuro: alert and oriented x 3, no lateralized deficits, no gross weakness Psyc: Anxious otherwise normal mood/affect, normal judgment/memory Diagnostic Testing ED Labs Ordered and Reviewed COMP METABOLIC PANEL - Abnormal; Notable for the following components: Result Value Ref Range Alkaline Phosphatase 170 (*) 45 - 117 U/L Glucose 125 (*) 70 - 100 mg/dL All other components within normal limits ACTIVATED PTT - Abnormal; Notable for the following components: APTT 33.4 (*) 23.0 - 32.4 sec All other components within normal limits Narrative: Unfractionated Heparin Therapeutic Ranges: Standard Heparin Nomogram: 53 to 78 seconds (anti-Xa level of 0.3 to 0.7 U/ml) Low Dose/ACS Nomogram: 49 to 67 seconds (anti-Xa level of 0.2 to 0.5 U/ml) Stroke Treatment Nomogram: 49 to 67 seconds (anti-Xa level of 0.2 to 0.5 U/ml) Note: The APTT therapeutic range has been determined for the current lot of lab (more content not included)... [facility] EKGon 09-30-2023 Electrocardiogram Ventricular Rate : 1 12 BPM Atrial Rate : 112 BPM P-R Interval : 170 ms QRS Duration : 80 ms Q-T Interval : 368 ms QTC Calculation(Bazett) : 502 ms Calculated P [place] : 54 degrees Calculated R [place] : 32 degrees Calculated T [place] : 52 degrees Sinus tachycardia with frequent and consecutive Premature ventricular complexes Nonspecific T wave abnormality Abnormal ECG When compared with ECG of 30-SEP-2023 14:42, No significant change was found Confirmed by DESI VIGIL MD ([id number]) on 10/01/2023 8:56:51 PM NAME : AMBIKA BROWN PID : [id number] : 1990 Gender : Female Race : ORD : Procedure Date : Sep 30 2023 14:43:35 Edit Date : Oct 01 2023 20:56:52 Diagnosis: Sinus tachycardia with frequent and consecutive Premature ventricular complexes Nonspecific T wave abnormality Abnormal ECG When compared with ECG of 30-SEP-2023 14:42, No significant change was found Confirmed by DESI VIGIL MD ([id number]) on 10/01/2023 8:56:51 PM Test Reason : STAT Location : 0 : ED 09 Overread By : DESI VIGIL MD Edited By : DESI VIGIL MD Referred By : , Acquired by : CS, [facility] Electrocardiogram Ventricular Rate : 1 06 BPM Atrial Rate : 106 BPM P-R Interval : 172 ms QRS Duration : 78 ms Q-T Interval : 340 ms QTC Calculation(Bazett) : 451 ms Calculated P [place] : 59 degrees Calculated R [place] : 29 degrees Calculated T [place] : 48 degrees Sinus tachycardia with occasional Premature ventricular complexes Nonspecific T wave abnormality Abnormal ECG When compared with ECG of 30-SEP-2023 14:42, Premature ventricular complexes is now present Confirmed by DESI VIGIL MD ([id number]) on 10/01/2023 8:50:06 PM NAME : AMBIKA BROWN PID : [id number] : 1990 Gender : Female Race : ORD : Procedure Date : Sep 30 2023 14:42:56 Edit Date : Oct 01 2023 20:50:11 Diagnosis: Sinus tachycardia with occasional Premature ventricular complexes Nonspecific T wave abnormality Abnormal ECG When compared with ECG of 30-SEP-2023 14:42, Premature ventricular complexes is now present Confirmed by DESI VIGIL MD ([id number]) on 10/01/2023 8:50:06 PM Test Reason : STAT Location : 0 : ED 09 Overread By : DESI VIGIL MD Edited By : DESI VIGIL MD Referred By : , Acquired by : CSG, Normal [facility] HCG QUAL BLDon 09-30-2023 HCG, QUALITATIVE Negative Normal Negative [facility] Comment on above: Order Comment: Speci men Type: BLOOD SPECIMENOrdering Facility: [facility] Address: [address] [place] [address] Performed By: #### 2 4323-8, 72986-9, 3040-3, HCG ####[facility]ATORYCLIA [id number] [place] [address] [place] HIGH SENSITIVITY TROPONIN Io n 09-30-2023 Tropinin I.cardiac panel High sensitivity method <2.5 Normal 0.0-34.0 [facility] Comment on above: Order Comment: Speci carolyne Type: BLOOD SPECIMEN Ordering Facility[facility] Address: [address] [place] [address] Result Comment: This assay uses different antibodies than our current assay, and assays, even by the same new patient escort may recognize different regions of the antibody and cannot be used interchangeably. Expect results of this assay to run higher than the previous assay. Performed By: #### H STROP #### [facility] CLIA [id number] [address] [place] [address] [place] Lipase SerPl-cCncon 09-30-19 24 Lipase [Catalytic activity/Vol] 45 U/L Normal 12-60 [facility] Comment on above: Order Comment: Speci men Type: BLOOD SPECIMENOrdering Facility: [facility] Address: [address] [place] [address] Performed By: #### 2 4323-8, 21425-1, 0-3, HCG ####[facility]ATORYCLIA [id number] [place] [address] [facility] Magnesium SerPl-mCncon 09-30 Magnesium [Mass/Vol] 1.8 mg/dL Normal 1.6-2.6 [facility] Comment on above: Order Comment: Speci carolyne Type: BLOOD SPECIMENOrdering Facility: [facility] Address: [address] [place] [address] Performed By: #### 2 4323-8, 72743-3, 0-3, HCG ####[facility]ATORYCLIA [id number] [address] PT panel Coag (PPP)on 2023 INR Coag (PPP) [Relative time] 1.0 {INR} Normal 0.9-1.3 [facility] Comment on above: Order Comment: Specviri barfield Type: BLOOD SPECIMENOrdering Facility: [facility] Address: [address] [place] [address] Result Comment: Lia min K Antagonist (VKA) Therapeutic Range: INR 2 to 3 (Target INR of 2.5) Note: For patients treated with VKA drugs, such as warfarin, the [place] [employer] 2012 Guideline recommends a therapeutic INR range of 2 to 3 (target INR of 2.5). This recommendation includes high-risk patients with antiphospholipid syndrome with previous arterial or venous thromboembolism, current-generation mechanical or bioprosthetic aortic heart valve replacement. Note: Patients with mechanical aortic valve replacement and additional risk factors for thromboembolic events (atrial fibrillation, previous thromboembolism, LV dysfunction, hypercoagulable conditions) or an older generation mechanical AVR (i.e., ball in-Cage) or any mechanical MVR should have a INR therapeutic range of 2.5 to 3.5 (target INR of 3). Tani GH, et al. Chest 2012, 141:7S-47S Berna OVIEDO et al. [facility] 2017, 70: 252-289 Performed By: #### 3 4528-0, 96442-8, 78842-3 ####[facility] LABORATORYCLIA [id number] [address] [facility] PT Coag (PPP) [Time] 11.3 s Normal 9.7-13.0 [facility] Comment on above: Order Comment: Speci men Type: BLOOD SPECIMENOrdering Facility: [facility] Address: [address] [place] [id number] Performed By: #### 3 4528-0, 83031-5, 26955-6 ####[facility]ATORYCLIA [id number] [place] [address] [facility] XR CHEST 2V FRONTAL/LATon XR CHEST 2V FRONTAL/LAT * * *Final Repor t* * * DATE OF EXAM: Sep 30 2023 4:43PM RHX [id number] - XR CHEST 2V FRONTAL/LAT / PROCEDURE REASON: Chest pain, nonspecific * * * * Physician Interpretation * * * * EXAMINATION: CHEST RADIOGRAPH (2 VIEW FRONTAL and LATERAL) CLINICAL HISTORY: Chest pain, nonspecific, Syncope/presyncope, cardiac cause suspected MQ: [id number]_6 EXAM DATE/TIME: 09/30/2023 4:43 PM COMPARISON: No relevant prior studies available. RESULT: Lines, tubes, and devices: Probable cholecystectomy clips. Lungs and pleura: No consolidation. No pleural effusion. No pneumothorax. Cardiomediastinal silhouette: Normal cardiomediastinal silhouette. Bones and soft tissues: Unremarkable. IMPRESSION: No acute radiographic abnormality. 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: PSCB Transcribe Date/Time: Sep 30 2023 4:46P Dictated by : WALESKA BENNETT MD This examination was interpreted and the report reviewed and electronically signed by: WALESKA BENNETT MD on Sep 30 2023 4:48PM EST [id number] Normal [facility] aPTT PPPon 09-30-2023 aPTT Coag (PPP) [Time] 33.4 s High 23.0-32.4 [facility] Comment on above: Order Comment: Speci men Type: BLOOD SPECIMENOrdering Facility: [facility] Address: [address] [place] [address] Performed By: #### 3 4528-0, 68531-4, 03178-6 ####[facility] LABORATORYCLIA [id number] [place] [id number] [place] MR [place] 09-07-2023 MR EMG Patient name: AMBIKA BROWN MR#: [id number] Location: EMG Acc#: [id number] Service Date: : 1990 Age: 33 Sex: F Dictating By: Reema Hogan MD Procedure: EMG/Nerve Conduction Study PERFORMING PHYSICIAN: Reema Hogan M.D. SERVICE DATE: 09/07/2023 PROCEDURE: EMG/Nerve Conduction Study DATE OF SERVICE: 09/07/2023 REQUESTED BY: Mega Weeks M.D. REASON FOR EVALUATION: Bilateral upper extremity pain and paresthesias, assess for possible carpal tunnel syndrome. HISTORY OF PRESENT ILLNESS: This is a 33-year-old female who reports that she has predominantly right upper extremity symptoms and somewhat left upper extremity symptoms. She is right-hand dominant. She states that she gets numbness and paresthesias in the last 3 digits of the right hand going on for a couple of years, worse when she became over a year ago. She has a 4-month-old at home now. She notes the symptoms are worse at night. She states the pain may radiate up to her elbow, worse with heavy lifting and holding heavier items. She gets numbness. She had numbness in her hand with rolling cookie dough out. She has reduced strength when the symptoms are increased. 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 She has soreness in the neck and describes chronic tightness in that area. PAST MEDICAL HISTORY: Pertinent for morbid obesity, prediabetic, hypertension, arrhythmia for which she has an implanted heart monitor, asthma, lupus anticoagulant positive, migraines, hypothyroidism. FAMILY HISTORY: Pertinent for hypertension, diabetes. Mother passed from brain cancer. MEDICATIONS: Multivitamins including C, D, , and B12; Synthroid and metformin. ALLERGIES: COMPAZINE and BENADRYL. SOCIAL HISTORY: She does not smoke or consume alcohol. She is not currently working. 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 She is in her last semester of school. PHYSICAL EXAMINATION: A very pleasant morbidly obese female who presents to the evaluation today in no acute distress. Manual muscle testing demonstrates normal strength throughout bilateral upper extremities. Reflexes are 2+ and symmetrical. NERVE CONDUCTION STUDIES: Nerve conduction studies today demonstrate prolongation of the right median sensory distal latency with recording with ring electrodes on third digit, latency 3.8, normal is less than 3.6. Amplitude was normal. Conduction velocity through the forearm segment was normal. Ulnar sensory study with recording with ring electrodes on the fifth digit demonstrated an entirely normal findings on the right. Right median motor study with F-waves demonstrated prolongation of distal latency to 4.7 milliseconds, normal is less than 4.5. Amplitudes are normal as are conduction velocities and F-waves. Right ulnar motor study with recording over the abductor digiti quinti and repositioning the first dorsal interosseous given her reported ulnar symptoms demonstrated entirely normal findings with normal latencies, amplitudes, and conduction velocities throughout all segments. The left upper extremity was screened, this demonstrated normal left median motor study with F-waves. Ulnar and median sensory responses were compared with stimulation in the palm in comparison across the wrist, these were also normal and comparable. Superficial radial sensory studies and median sensory studies were also compared with recording with ring electrodes on the thumb. In comparison across the wrist, these were also normal and comparable. NEEDLE EXAMINATION: Needle examination of the more symptomatic right upper extremity with careful evaluation of muscles in different nerve, root, and plexus distributions demonstrated normal findings in the right biceps, pronator teres, triceps, first dorsal interosseous, and flexor pollicis longus with normal insertional activity, recruitment pattern, motor unit action potentials. The right abductor pollicis brevis demonstrated normal insertional activity 1+ ncreased amplitude, duration, and reduced recruitment pattern. Left upper extremity was not needled today given the otherwise unremarkable findings on nerve conduction studies of the left upper extremity today. CONCLUSION: There is electrophysiologic evidence of a moderately severe right distal median nerve entrapment at the level of the carpal tunnel consistent with carpal tunnel syndrome. Screening evaluation of left upper extremity demonstrates no evidence of any median, radial, or ulnar nerve abnormalities on that side. There is no evidence of any other neuropathy, plexopathy, or radiculopathy involving the right upper extremity on today evaluation. The patient was advised to follow up with Dr. Weeks for review relative to the results of todays study. ADAN @ 11:51 DT: 09/08 (more content not included)... Normal [facility] HCG QUANTITATIVEon HCG.beta subunit Qn <5.0 mIU/mL [facility] HbA1c (Bld)on 08-29-2023 Average glucose Estimated from glycated hemoglobin (Bld) [Mass/Vol] 128 mg/dL [facility] HbA1c (Bld) [Mass fraction] 6.1 % High 4.3 - 5.6 % [facility] Progress Noteon 06-27-2023 Automotive Maintenance Technician Authentication Interface Message Text POST-OP INCISION CHECK Ambika is 8 week postop following a delivery with new area of concern since seen on 06/18/23. Left edge of incision with area of separation. Had some bleeding expelled over weekend. No drainage since No redness pain or tenderness. She has stopped her Lovenox BP 122/70 Pulse 76 Resp 18 Wt (!) 143.8 kg (317 lb) SpO2 98% Yes BMI 49.65 kg/m Incision assessed: approx .5mm superficial separation of skin. Area intact below and without erythema, drainage. No palpable mass or tenderness with palpation. Abdomen without erythema, no noted bruno of sking A/P 33 y.o. at 37w5d with Patient Active Problem List Diagnosis Metabolic syndrome Chronic migraine without aura, intractable, without status migrainosus Implantable loop recorder present History of infertility Paroxysmal supraventricular tachycardia Antiphospholipid antibody syndrome complicating Uncomplicated asthma Pre-existing hypertension with pre-eclampsia, complicating the puerperium Maternal cardiovascular disease affecting in third trimester Morbid obesity Habitual aborter Mental disorder of mother, Hypothyroid Obstructive sleep apnea syndrome Vitamin D deficiency History of gestational diabetes examination following delivery Candidiasis, cutaneous Plan: Continue to keep incision clean and dry- area will re approximate with time. Follow up with PCP for ongoing medical care as instructed. The total time spent on patient care today was 15 minutes. -10 minutes direct patient care -5 minutes chart review and documentation Normal [facility] Progress Noteon 06-18-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 female who presents for a visit. She is 6 weeks following a delivery low transverse. I have fully reviewed the and intrapartum course. The delivery was at 37 gestational weeks due to CHTN with SIPEC. Delivering Provider: Hanna Smith DO . course has been complicated by early mood lability which pt states has significantly improved. Baby is feeding by Breast- pt seeing consultant regularly and process is much improved. Bleeding stopped completely 2 weeks ago. Bowel function is normal. Bladder function is normal. Patient is not sexually active. Contraception method is abstinence and rhythm method. depression screening: EPDS 3. Patient's medications, allergies, past medical, surgical, , social, and family histories were reviewed and updated as appropriate. She is unaccompanied. Review of Systems Constitutional: Dx COVID 06/10/23 Symptoms improved, only nasal congestion Gastrointestinal: Incision itchy and some scant yellow drainage Neurological: Positive for headaches (ongoing treatment for migraines). Psychiatric/Behavioral: Adjusting to new baby, continues to work with on new dynamic. Limited local family support so relying on . States is assuring she can have personal time for self daily All other systems reviewed and are negative. Objective: BP 116/68 Pulse 98 Resp 18 Wt (!) 144 kg (317 lb 8 oz) SpO2 98% Yes Comment: with nipple shield BMI 49.73 kg/m Physical Exam Vitals reviewed. Constitutional: Appearance: She is well-developed and well-nourished. Incision: incision intact and currently without drainage, ecchymosis. Areas of erythema with raised rash consistent with cutaneous yeast. No palpable mass around incision or pain with palpation 33 y.o. at 37w5d with Active Non-Hospital Problems Diagnosis Date Noted History of gestational diabetes 03/05/2023 Priority: High NPH 22 units at HS No meds 2hr GTT information given- encouraged to complete Reviewed on 06/18/2023 Pre-existing hypertension with pre-eclampsia, complicating the puerperium Priority: High CHTN- was on Metoprolol but stopped taking 10/05/21 BP cuff ordered. Instructed on BID BP check. Parameters to notify office 140/90 or greater. PEC labs ordered-Normal UPCR 0.15 Currently taking BASA -Monitor Bps at home. -Start meds for persistent HTN >140/90 -Beta blockade preferred to procardia given h/o SVT and ectopy -Serial growth every 4 weeks - testing at 32 weeks (once or twice weekly pending course). -Delivery by 38 weeks unless indicated sooner. 04/30/23: BP stable on Labetalol 200 mg TID at this time. Precautions reviewed, continue to monitor. 06/18/23 Normotensive on no meds Reviewed on 06/18/2023 Maternal cardiovascular disease affecting in third trimester Priority: High PVCs/ palpitations, Intermittent SVT Syncopal episodes Structurally normal heart, normal stress test, normal head imaging EP attempted Ablation- however, could not elicit any dysrhytmia to ablate. No syncope since 06/2022. Implantable loop recorder placed 08/2022. Follows with Dr Conrad, [facility]- appt December 05- no changes at appt, f/u PP -Continue close co-management with cardiology -If treatment needed, beta blockade preferred (metoprolol, labetalol). -check electrolytes qtrimester or more frequent with symptoms, maintain Mag level >2.0. ordered 02/01 (WNL, 1.9), 04/03 1.8-started mag oxide 06/18 reinforced to schedule follow up within next 1-2 months Reviewed on 06/18/2023 Morbid obesity Priority: High PP BMI 51 A1C 6.2 in 08/202210/06/22 A1C 5.8 Early 1 hr ordered- 10/06/22- 122. Repeat 24 weeks. 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 05/17/23 Staying with father to assure has someone with her while at work. Notes increased sadness at HS. Working with counselor for support Will start zoloft 25mg daily and will assure follow up with PCP Has plan in place to have someone with her Reviewed pp depression sx with 06/18 Stopped Zoloft Mood stabilized Continues with counseling EPDS3 Reviewed on 06/18/2023 Hypothyroid Priority: High Hypothyroid- has recent testing with PCP and was told they would send in script for med. Pt started euthyrox 11/08/22 Recheck TSH 3-4 weeks after initiation and titrate levothyroxine to target TSH <2.5- ordered (more content not included)... Normal [facility] Influenza virus A and B and SARS-CoV-2 (COVID-19) Ag panel - Upper respiratory specimOrdered By: Neelima Nava on 06-10-2023 SARS-CoV-2 & FLU Antigen (Rapid) SARS-CoV-2 (COVID 19) [facility] INSULINon 06-02-2023 INSULIN 38.2 mU/L Abnormal 3.0-25.0 [facility] Comment on above: Result Comment: Test Performed By: [facility] [address] [place] [address] Metal Turner: Keyur Green III, M.D. VIT D 25 OHon 06-01-2023 VIT D 25 OH 39.8 ng/mL Normal 30-100 [facility] Comment on above: Result Comment: Inte rpretation of VitD results: Adult: <20 ng/mL Deficient 20 - <30 ng/mL Insufficiency 30 - 100 ng/mL Sufficiency Pediatric: <15 ng/mL Deficient 15 - <20 ng/mL Insufficiency 20 - 100 ng/mL Sufficiency Performed By: #### V ITD #### [address] [address] CBC with AUTO DIFFon 023 BAS0 % 0.30 % Normal 0-2 [facility] Comment on above: Performed By: #### C BC #### [address] [address] Basophils (Bld) [#/Vol] 0.0 10*3/uL Normal 0-0.1 [facility] Comment on above: Performed By: #### C BC #### [facility] [address] [place] [address] Eosinophils (Bld) [#/Vol] 0.5 10*3/uL Normal 0.0-1.80 [facility] Comment on above: Performed By: #### C BC #### [address] [address] Eosinophils/100 WBC (Bld) 4.3 % Normal 0-8 [facility] Comment on above: Performed By: #### C BC #### [address] [address] GRAN # 7.9 K/uL Normal 2.2-9.1 [facility] Comment on above: Performed By: #### C BC #### [facility] [address] [place] [address] GRAN % 67.7 % Normal 42-80 [facility] Comment on above: Performed By: #### C BC #### [facility] [address] [place] [address] Hematocrit (Bld) [Volume fraction] 37.2 % Normal 37.0-47.0 [facility] Comment on above: Performed By: #### C BC #### [facility] [address] [place] [address] Hemoglobin (Bld) [Mass/Vol] 11.8 g/dL Low 12.0-16.0 [facility] Comment on above: Performed By: #### C BC #### [address] [place] [address] Lymphocytes (Bld) [#/Vol] 2.6 10*3/uL Normal 1.0-4.0 [facility] Comment on above: Performed By: #### C BC #### [address] [place] [address] Lymphocytes/100 WBC (Bld) 22.2 % Normal 16-48 [facility] Comment on above: Performed By: #### C BC #### [address] [place] [address] MCV (RBC) [Entitic vol] 79.4 fL Low 80-97 [facility] Comment on above: Performed By: #### C BC #### [facility] [address] [place] [address] MEAN CORPUSCULAR HGB 25.1 pg Low 26.0-32.0 [facility] Comment on above: Performed By: #### C BC #### [facility] [address] [place] [address] MEAN CORPUSCULAR HGB CONC 31.7 g/dL Normal 31.0-36.0 [facility] Comment on above: Performed By: #### C BC #### [address] [place] [address] MONO DISTRIB WIDTH Not performed Normal 0-20 [facility] Comment on above: Performed By: #### C BC #### [facility] [address] [place] [address] Monocytes (Bld) [#/Vol] 0.6 10*3/uL Normal 0.1-1.7 [facility] Comment on above: Performed By: #### C BC #### [facility] [address] [place] [address] Monocytes/100 WBC (Bld) 5.5 % Normal 3-9 [facility] Comment on above: Performed By: #### C BC #### [facility] [address] [place] [address] Platelet mean volume (Bld) [Entitic vol] 10.7 fL High 6.6-10.5 [facility] Comment on above: Performed By: #### C BC #### [facility] [address] [place] [address] Platelets (Bld) [#/Vol] 250 10*3/uL Normal 140-450 [facility] Comment on above: Performed By: #### C BC #### [facility] [address] [place] [address] RBC (Bld) [#/Vol] 4.69 10*6/uL Normal 4.20-5.50 [facility] Comment on above: Performed By: #### C BC #### [facility] [address] [place] [address] RED CELL DISTRI WIDTH 15.6 % High 11.0-15.5 [facility] Comment on above: Performed By: #### C BC #### [facility] [address] [place] [address] WBC (Bld) [#/Vol] 11.7 10*3/uL High 4.0-11.0 [facility] Comment on above: Performed By: #### C BC #### [facility] [address] [place] [address] COMPREHENSIVE METABOLIC PANE Maurilio 05-31-2023 Albumin [Mass/Vol] 2.9 g/dL Low 3.4-5.0 [facility] Comment on above: Performed By: #### L IPID, TSH, VB12, [place] ####[facility] [place] [address] Albumin/Globulin [Mass ratio] 0.6 {ratio} Low 1.1-1.8 [facility] Comment on above: Performed By: #### L IPID, TSH, VB12, [place] ####[facility] [facility] [place] [address] ALP [Catalytic activity/Vol] 151 U/L High 45-117 [facility] Comment on above: Performed By: #### L IPID, TSH, VB12, [place] ####[facility] [facility] [place] [address] ALT [Catalytic activity/Vol] 36 U/L Normal 12-78 [facility] Comment on above: Performed By: #### L IPID, TSH, VB12, [place] ####[facility] [facility] [place] [address] Anion gap [Moles/Vol] 12.2 mmol/L Normal 11-23 [facility] Comment on above: Performed By: #### L IPID, TSH, VB12, [place] ####[facility] [facility] [place] [address] AST [Catalytic activity/Vol] 20 U/L Normal 15-37 [facility] Comment on above: Performed By: #### L IPID, TSH, VB12, [place] ####[address] [place] [address] Bilirubin [Mass/Vol] 0.2 mg/dL Normal 0.2-1.0 [facility] Comment on above: Performed By: #### L IPID, TSH, VB12, [place] ####[facility] [facility] [place] [address] Calcium [Mass/Vol] 8.3 mg/dL Low 8.5-10.1 [facility] Comment on above: Performed By: #### L IPID, TSH, VB12, [place] ####[facility] [facility] [place] [address] Chloride [Moles/Vol] 109 mmol/L High 98-107 [facility] Comment on above: Performed By: #### L IPID, TSH, VB12, [place] ####[facility] [facility] [place] [address] CO2 [Moles/Vol] 24.0 mmol/L Normal 21-32 [facility] Comment on above: Performed By: #### L IPID, TSH, VB12, [place] ####[facility] [place] [address] Creatinine [Mass/Vol] 0.90 mg/dL Normal 0.55-1.02 [facility] Comment on above: Performed By: #### L IPIDJIMENA VB12, [place] ####[place] [address] [place] [address] GFR > 60.0 [facility] Comment on above: Performed By: #### L IPIDJIMENA VB12, [place] ####[facility] [address] [place] [address] GFR AM > 60.0 [facility] Comment on above: Result Comment: THE NORMAL LEVEL OF GFR VARIES ACCORDING TO AGE, SEX, AND BODY SIZE. A GFR LEVEL OF LESS THAN 60 ML/MIN REPRESENTS LOSS OF THE ADULT LEVEL OF NORMAL KIDNEY FUNCTION. Performed By: #### L IPIDJIMENA VB12, [place] ####[facility] [address] [place] [address] Globulin (S) [Mass/Vol] 4.4 g/dL Normal 2.5-4.6 [facility] Comment on above: Performed By: #### L IPID TSH, VB12, [place] ####[place] [address] [place] [address] Glucose [Mass/Vol] 103 mg/dL High 70-100 [facility] Comment on above: Performed By: #### L IPID TSH VB12, [place] ####[place] [address] [place] [address] Potassium [Moles/Vol] 3.9 mmol/L Normal 3.5-5.1 [facility] Comment on above: Performed By: #### L IPID TSH, VB12, [place] ####[place] [address] [place] [address] Protein [Mass/Vol] 7.3 g/dL Normal 6.0-8.3 [facility] Comment on above: Performed By: #### L IPID TSH, VB12, [place] ####[place] [address] [place] [address] Sodium [Moles/Vol] 141 mmol/L Normal 136-145 [facility] Comment on above: Performed By: #### L IPID TSH, VB12, [place] ####[place] [address] [place] [address] Urea nitrogen [Mass/Vol] 14.0 mg/dL Normal 7-18 [facility] Comment on above: Performed By: #### L IPID, TSH, VB12, [place] ####[address] [place] [address] GLYCOHEMOGLOBIN (A1C)on 05-12 EST AVG GLUCOSE 126 Normal [facility] Comment on above: Performed By: #### G LY #### [address] [place] [address] HbA1c (Bld) [Mass fraction] 6.0 % Normal [facility] Comment on above: Result Comment: Inte rpretation of Hgb A1C results: <5.7% Normal 5.7% - 6.4% Prediabetes >6.4% Diabetes SAMPLES FROM PATIENTS WITH HEMOLYTIC ANEMIAS OR THE PRESENCE OF UNSTABLE HEMOGLOBINS LIKE HbSS OR HbSC WILL EXHIBIT DECREASED GLYCATED HGB DUE TO THE SHORTENED LIFE SPAN OF THE RED CELLS.RESULTS ARE NOT RELIABLE IN PATIENTS WITH CHRONIC BLOOD LOSS. Performed By: #### G LY #### [address] [place] [address] LIPID PROFILE (FASTING)on CHOL/HDL RATIO 3.3 mg/dl Normal 3.7-5.6 [facility] Comment on above: Performed By: #### L IPID, TSH, VB12, [place] ####[address] [place] [address] Cholesterol [Mass/Vol] 154 mg/dL Normal 0-200 [facility] Comment on above: Performed By: #### L IPID, TSH, VB12, [place] ####[place] [address] [place] [address] Cholesterol in HDL [Mass/Vol] 46 mg/dL Normal 40-60 [facility] Comment on above: Performed By: #### L IPID, TSH, VB12, [place] ####[address] [place] [address] Cholesterol in LDL [Mass/Vol] 76 mg/dL Normal 0-130 [facility] Comment on above: Performed By: #### L IPID, TSH, VB12, [place] ####[address] [place] [address] Triglyceride [Mass/Vol] 160 mg/dL High 0-150 [facility] Comment on above: Performed By: #### L IPID, TSH, VB12, [place] ####[facility] [place] [address] VLDL CALCULATION 32 mg/dl Normal 5-40 [facility] Comment on above: Performed By: #### L IPID, TSH, VB12, [place] ####[facility] [place] [address] THYROID STIM HORMONEon 05-31 THYROID STIM HORMONE 1.660 uIU/mL Normal 0.358-3.74 [facility] Comment on above: Performed By: #### L IPID, TSH, VB12, [place] ####[facility] [place] [address] VITAMIN B 12on 05-31-2023 Cobalamin (Vitamin B12) [Mass/Vol] 472 pg/mL Normal 254-1320 [facility] Comment on above: Performed By: #### L IPID, TSH, VB12, [place] ####[facility] [place] [address] 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 female who presents for a visit. She is 1 week following a delivery low transverse. I have fully reviewed the and intrapartum course. The delivery was at 37 gestational weeks for CHTN with SIPECwo features. Cat II tracing during induction. Delivering Provider: Hanna Smith DO . course has been complicated by some issues and generalized anxiety. She is also continuing treating abdomen with lotrimin cream. Baby is feeding by breast. Baby has gained back weight and pt is seeing consultant regularly. Recommending restarting her Metformin but uncertain her dosing pre-. Bleeding staining only. Bowel function is normal. Bladder function is normal. Patient is not sexually active. Contraception method is condoms and vaginal spermicide. depression screening: Feels more anxious/teary at HS. Has follow up with counselor but would like to restart zoloft until sees her PCP for ongoing management. Patient's medications, allergies, past medical, surgical, , social, and family histories were reviewed and updated as appropriate. She is accompanied by her . Review of Systems Skin: Positive for rash (pruritic rash upper abdomen and hips. improving since took off abdominal binder and use of lotrimin cream.). Psychiatric/Behavioral: The patient is nervous/anxious (worse at HS. Feels better with people around her. No SI/HI.). All other systems reviewed and are negative. Objective: BP 138/83 Pulse 80 Resp 18 SpO2 98% Physical Exam Vitals reviewed. Constitutional: Appearance: She is well-developed and well-nourished. Pulmonary: Effort: Pulmonary effort is normal. Abdominal: Palpations: Abdomen is soft. Neurological: Mental Status: She is alert and oriented to person, place, and time. Skin: General: Skin is warm and dry. Findings: Rash (erythema upper quadrant of abdomen and thigh/groin. mimics the elastic abdominal support binder impression on skin) present. Psychiatric: Mood and Affect: Mood and affect normal. Behavior: Behavior normal. Thought Content: Thought content normal. Judgment: Judgment normal. Incision: Silverlon dressing removed. Incision intact without redness, ecchymosis. No drainage. No erythema from umbilicus to pubis. No rashing where dressing removed 33 y.o. at 37w5d with Active Non-Hospital Problems Diagnosis Date Noted History of gestational diabetes 03/05/2023 Priority: High NPH 22 units at HS No meds 2hr GTT information given. Reviewed on 05/17/2023 Supervision of other high risk pregnancies, third trimester 10/06/2022 Priority: High PLAN OF CARE MD/OB APPOINTMENTS Genetic screening: see GC notes, unable to obtain NT How often should patient be evaluated? Monthly to 28 weeks, q 2 weeks from 28 to 36 weeks then weekly until delivery Work restrictions: NA EVALUATION surveillance: BPP twice weekly at 32 weeks Ultrasound: anatomy, growth every 4 weeks DELIVERY PLAN Hospital: [facility] Induction at 37 weeks (CHTN, hx)- pt would like to meet with (04/16) Cytotec IOL 8 pm 05/07/23 GBS culture: 04/16/2023 negative Contraception: condoms/spermicide : planning consult complete Baby boy: Jorge Luis Pre-existing hypertension with pre-eclampsia, complicating the puerperium Priority: High CHTN- was on Metoprolol but stopped taking 10/05/21 BP cuff ordered. Instructed on BID BP check. Parameters to notify office 140/90 or greater. PEC labs ordered-Normal UPCR 0.15 Currently taking BASA -Monitor Bps at home. -Start meds for persistent HTN >140/90 -Beta blockade preferred to procardia given h/o SVT and ectopy -Serial growth every 4 weeks - testing at 32 weeks (once or twice weekly pending course). -Delivery by 38 weeks unless indicated sooner. 04/30/23: BP stable on Labetalol 200 mg TID at this time. Precautions reviewed, continue to monitor. 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 No syncope since 06/2022. Implantable loop recorder placed 08/2022. Follows with Dr Conrad, [facility]- appt December 05- no changes at appt, f/u PP -Continue close co-management with cardiology -If treatment needed, beta blockade preferred (metoprolol, labetalol). -check electrolytes qtrimester or more frequent with symptoms, maintain Mag level >2.0. ordered 02/01 (WNL, 1.9), 04/03 1.8-started mag oxide Morbid obesity Priority: High PP BMI 51 A1C 6.2 in 08/202210/06/22 A1C 5.8 Early 1 (more content not included)... Normal [facility] Laboratory studies (set)on 0 05-16-2023 Albumin [Mass/Vol] 2.7 g/dL Low 3.4-5.0 [facility] Work Phone: Albumin/Globulin [Mass ratio] 0.6 {ratio} Low 1.1-1.8 [facility] Work Phone: ALP [Catalytic activity/Vol] 123 U/L High 45-117 [facility] Work Phone: ALT [Catalytic activity/Vol] 30 U/L 12-78 [facility] Work Phone: Anion gap [Moles/Vol] 12.1 mmol/L 11-23 [facility]: Anisocytosis Ql (Bld) [facility] Work Phone: Appearance (U) CLEAR [facility] Work Phone: AST [Catalytic activity/Vol] 20 U/L 15-37 [facility] Work Phone: Basophils (Bld) [#/Vol] 0.1 10*3/uL 0-0.1 [facility] Work Phone: Basophils/100 WBC (Bld) 0.40 % 0-2 [facility]: Bilirubin [Mass/Vol] 0.2 mg/dL 0.2-1.0 [facility] Work Phone: Bilirubin Ql (U) NEGATIVE [facility] Work Phone: Calcium [Mass/Vol] 9.2 mg/dL 8.5-10.1 [facility] Work Phone: Chloride [Moles/Vol] 110 mmol/L High 98-107 [facility] Work Phone: CO2 [Moles/Vol] 22.0 mmol/L 21-32 [facility] Work Phone: Color (U) [facility] Work Phone: Creatinine [Mass/Vol] 0.70 mg/dL 0.55-1.02 [facility] Work Phone: Differential Total Cells Counted 100 #CELLS [facility] Work Phone: Eosinophils (Bld) [#/Vol] 0.4 10*3/uL 0.0-1.80 [facility] Work Phone: Eosinophils/100 WBC (Bld) 2.9 % 0-8 [facility] Work Phone: Erythrocyte distribution width (RBC) [Ratio] 16.2 % High 11.0-15.5 [facility] Work Phone: Estimated GFR () [facility] Work Phone: Comment on above: THE NORMAL LEVEL OF GFR VARIES ACCORDING TO AGE, SEX, AND BODY SIZE. A GFR LEVEL OF LESS THAN 60 ML/MIN REPRESENTS LOSS OF THE ADULT LEVEL OF NORMAL KIDNEY FUNCTION. GFR/1.73 sq M.predicted among non-blacks MDRD (S/P/Bld) [Vol rate/Area] [facility] Work Phone: Globulin (S) [Mass/Vol] 4.4 g/dL 2.5-4.6 [facility] Work Phone: Glucose [Mass/Vol] 121 mg/dL High 70-100 [facility] Work Phone: Glucose Ql (U) NEGATIVE [facility] Work Phone: Granulocytes (Bld) [#/Vol] 9.0 10*3/uL 2.2-9.1 [facility] Work Phone: Granulocytes/100 WBC (Bld) 70.8 % 42-80 [facility] Work Phone: Hematocrit (Bld) [Volume fraction] 35.2 % Low 37.0-47.0 [facility] Work Phone: Hemoglobin (Bld) [Mass/Vol] 11.4 g/dL Low 12.0-16.0 [facility] Work Phone: Hemoglobin Ql (U) High NEGATIVE [facility] Work Phone: Hypochromia Ql (Bld) [facility] Work Phone: [phone] Immature Granulocytes [facility] Work Phone: Ketones Ql (U) NEGATIVE [facility] Work Phone: Leukocyte esterase Test strip Ql (U) NEGATIVE [facility] Work Phone: Lymphocytes (Bld) [#/Vol] 2.5 10*3/uL 1.0-4.0 [facility] Work Phone: Lymphocytes Auto (Unsp spec) [#/Vol] 20 % 16-48 [facility] Work Phone: Lymphocytes/100 WBC (Bld) 19.3 % 16-48 [facility] Work Phone: MCH (RBC) [Entitic mass] 25.5 pg Low 26.0-32.0 [facility] Work Phone: MCHC (RBC) [Mass/Vol] 32.3 g/dL 31.0-36.0 [facility] Work Phone: [phone] MCV (RBC) [Entitic vol] 78.9 fL Low 80-97 [facility] Work Phone: Monocyte distribution width Auto (Bld) [Entitic vol] 17.71 0-20 [facility] Work Phone: Comment on above: For ED adult patient s suspected of sepsis, MDW<=20.0 does not rule out sepsis or risk of sepsis Monocytes (Bld) [#/Vol] 0.8 10*3/uL 0.1-1.7 [facility] Work Phone: Monocytes/100 WBC (Bld) 6 % 3-9 [facility] Work Phone: Monocytes/100 WBC (Bld) 6.6 % 3-9 [facility] Work Phone: [phone] Nitrite Ql (U) NEGATIVE [facility] Work Phone: pH (U) 7.0 [pH] 5.0-9.0 [facility] Work Phone: Phosphate crystals amorphous LM Ql (Urine sed) <1+ [facility] Work Phone: Platelet mean volume (Bld) [Entitic vol] 9.1 fL 6.6-10.5 [facility] Work Phone: Platelets (Bld) [#/Vol] 269 10*3/uL 140-450 [facility] Work Phone: Comment on above: Delta: 204 on -UNK Platelets LM Ql (Bld) [facility] Work Phone: Polychromasia LM Ql (Bld) [facility] Work Phone: [phone] Potassium [Moles/Vol] 3.8 mmol/L 3.5-5.1 [facility] Work Phone: Protein [Mass/Vol] 7.1 g/dL 6.0-8.3 [facility] Work Phone: Protein Ql (U) NEGATIVE [facility] Work Phone: [phone] RBC (Bld) [#/Vol] 4.46 10*6/uL 4.20-5.50 [facility] Work Phone: [phone] RBC LM.HPF (Urine sed) [#/Area] 0-2 [facility] Work Phone: RBC morphology finding Nom (Bld) [facility] Work Phone: Segmented neutrophils/100 WBC (Bld) 74 % 42-80 [facility] Work Phone: Sodium [Moles/Vol] 140 mmol/L 136-145 [facility] Work Phone: [phone] Specific gravity (U) [Rel density] 1.015 1.003-1.035 [facility] Work Phone: [phone] Urea nitrogen [Mass/Vol] 13.0 mg/dL 7-18 [facility] Work Phone: [phone] Urine Bacteria <1+ [facility] Work Phone: [phone] Urine Squamous Epithelial Cells NONE-MANY [facility] Work Phone: Urine WBC 0-3 [facility] Work Phone: Urobilinogen Ql (U) 0.2 E.U./dL <=1.0 [facility] Work Phone: WBC (Bld) [#/Vol] 12.7 10*3/uL High 4.0-11.0 [facility] Work Phone: ABDOMEN/PELVIS W/CONTRASTon 05-15-2023 ABDOMEN/PELVIS W/CONTRAST AMBIKA BROWN Female [id number] Ordering physician: Pastor Abbott LOC:ER [id number] Attending physician: 1990 33 DO S: 05/15/23 Acc#: [id number] Exam/Proc: ABDOMEN/PELVIS W/CONTRAST Dept: COMPUTED TOMOGRAPHY EXAMINATION: CT OF THE ABDOMEN AND PELVIS WITH CONTRAST05/15/2023 9:[address] ABDOMEN/PELVIS WITH CONTRAST TECHNIQUE: CT of the abdomen and pelvis was performed with the administration of intravenous contrast. Multiplanar reformatted images are provided for review. Automated exposure control, iterative reconstruction, and/or weight based adjustment of the mA/kV was utilized to reduce the radiation dose to as low as reasonably achievable. COMPARISON: CT abdomen pelvis June 10, 2020 HISTORY: ORDERING SYSTEM PROVIDED HISTORY: TECHNOLOGIST PROVIDED HISTORY: Reason for Exam: intrabdominal wall abscess FINDINGS: The size, density, and morphology of the liver, spleen, adrenals, kidneys, pancreas and unopacified loops of bowel are unremarkable. The opacified aorta demonstrates normal size and morphology without aneurysmal dilation or dissection. There are no enlarged lymph nodes by pathologic size criteria. There is no free fluid within the pelvis. The bladder has an unremarkable CT appearance. The uterus is enlarged from recently gravid state. Fluid is identified within the anterior abdominal wall adipose tissue. There is no evidence for organized abscess. The osseous structures are without gross lytic or sclerotic lesion. The lung bases are clear. IMPRESSION: Seroma within the anterior abdominal wall without evidence for organized abscess. Electronically signed By Tee Jacbos MD 05/15/2023 11:35:03 PM EST Workstation ID : [id number] REPORT SIGNATURE ON FILE Electronically Signed Date/Time: 05/15/23 3154 Dictated Date/time: 05/15/232329 CC: Normal [facility] CBC with AUTO DIFFon 023 BAS0 % 0.40 % Normal 0-2 [facility] Comment on above: Performed By: #### D IFF (MANUAL), CBC #### [address] [place] [address] Basophils (Bld) [#/Vol] 0.1 10*3/uL Normal 0-0.1 [facility] Comment on above: Performed By: #### D IFF (MANUAL), CBC #### [address] [place] [address] Eosinophils (Bld) [#/Vol] 0.4 10*3/uL Normal 0.0-1.80 [facility] Comment on above: Performed By: #### D IFF (MANUAL), CBC #### [address] [place] [address] Eosinophils/100 WBC (Bld) 2.9 % Normal 0-8 [facility] Comment on above: Performed By: #### D IFF (MANUAL), CBC #### [address] [place] [address] GRAN # 9.0 K/uL Normal 2.2-9.1 [facility] Comment on above: Performed By: #### D IFF (MANUAL), CBC #### [address] [place] [address] GRAN % 70.8 % Normal 42-80 [facility] Comment on above: Performed By: #### D IFF (MANUAL), CBC #### [address] [place] [address] Hematocrit (Bld) [Volume fraction] 35.2 % Low 37.0-47.0 [facility] Comment on above: Performed By: #### D IFF (MANUAL), CBC #### [address] [place] [address] Hemoglobin (Bld) [Mass/Vol] 11.4 g/dL Low 12.0-16.0 [facility] Comment on above: Performed By: #### D IFF (MANUAL), CBC #### [address] [place] [address] Lymphocytes (Bld) [#/Vol] 2.5 10*3/uL Normal 1.0-4.0 [facility] Comment on above: Performed By: #### D IFF (MANUAL), CBC #### [address] [place] [address] Lymphocytes/100 WBC (Bld) 19.3 % Normal 16-48 [facility] Comment on above: Performed By: #### D IFF (MANUAL), CBC #### [facility] [address] [place] [address] MCV (RBC) [Entitic vol] 78.9 fL Low 80-97 [facility] Comment on above: Performed By: #### D IFF (MANUAL), CBC #### [facility] [address] [place] [address] MEAN CORPUSCULAR HGB 25.5 pg Low 26.0-32.0 [facility] Comment on above: Performed By: #### D IFF (MANUAL), CBC #### [facility] [address] [place] [address] MEAN CORPUSCULAR HGB CONC 32.3 g/dL Normal 31.0-36.0 [facility] Comment on above: Performed By: #### D IFF (MANUAL), CBC #### [facility] [address] [place] [address] MONO DISTRIB WIDTH 17.71 Normal 0-20 [facility] Comment on above: Result Comment: For ED adult patients suspected of sepsis, MDW<=20.0 does not rule out sepsis or risk of sepsis Performed By: #### D IFF (MANUAL), CBC #### [facility] [address] [place] [address] Monocytes (Bld) [#/Vol] 0.8 10*3/uL Normal 0.1-1.7 [facility] Comment on above: Performed By: #### D IFF (MANUAL), CBC #### [facility] [address] [place] [address] Monocytes/100 WBC (Bld) 6.6 % Normal 3-9 [facility] Comment on above: Performed By: #### D IFF (MANUAL), CBC #### [facility] [address] [place] [address] Platelet mean volume (Bld) [Entitic vol] 9.1 fL Normal 6.6-10.5 [facility] Comment on above: Performed By: #### D IFF (MANUAL), CBC #### [facility] [address] [place] [address] Platelets (Bld) [#/Vol] 269 10*3/uL Normal 140-450 [facility] Comment on above: Performed By: #### D IFF (MANUAL), CBC #### [facility] [address] [place] [address] RBC (Bld) [#/Vol] 4.46 10*6/uL Normal 4.20-5.50 [facility] Comment on above: Performed By: #### D IFF (MANUAL), CBC #### [facility] [address] [place] [address] RED CELL DISTRI WIDTH 16.2 % High 11.0-15.5 [facility] Comment on above: Performed By: #### D IFF (MANUAL), CBC #### [address] [place] [address] WBC (Bld) [#/Vol] 12.7 10*3/uL High 4.0-11.0 [facility] Comment on above: Performed By: #### D IFF (MANUAL), CBC #### [address] [place] [address] COMPREHENSIVE METABOLIC PANE Maurilio 05-15-2023 Albumin [Mass/Vol] 2.7 g/dL Low 3.4-5.0 [facility] Comment on above: Performed By: #### M N #### [address] [address] Albumin/Globulin [Mass ratio] 0.6 {ratio} Low 1.1-1.8 [facility] Comment on above: Performed By: #### M N #### [facility] [address] [place] [address] ALP [Catalytic activity/Vol] 123 U/L High 45-117 [facility] Comment on above: Performed By: #### M N #### [facility] [address] [place] [address] ALT [Catalytic activity/Vol] 30 U/L Normal 12-78 [facility] Comment on above: Performed By: #### M N #### [facility] [address] [place] [address] Anion gap [Moles/Vol] 12.1 mmol/L Normal 11-23 [facility] Comment on above: Performed By: #### M N #### [facility] [address] [facility] [place] [address] AST [Catalytic activity/Vol] 20 U/L Normal 15-37 [facility] Comment on above: Performed By: #### M N #### [facility] [address] [place] [address] Bilirubin [Mass/Vol] 0.2 mg/dL Normal 0.2-1.0 [facility] Comment on above: Performed By: #### M N #### [facility] [address] [place] [address] Calcium [Mass/Vol] 9.2 mg/dL Normal 8.5-10.1 [facility] Comment on above: Performed By: #### M N #### [facility] [address] [place] [address] Chloride [Moles/Vol] 110 mmol/L High 98-107 [facility] Comment on above: Performed By: #### M N #### [address] [place] [address] CO2 [Moles/Vol] 22.0 mmol/L Normal 21-32 [facility] Comment on above: Performed By: #### M N #### [address] [place] [address] Creatinine [Mass/Vol] 0.70 mg/dL Normal 0.55-1.02 [facility] Comment on above: Performed By: #### M N #### [address] [place] [address] GFR > 60.0 [facility] Comment on above: Performed By: #### M N #### [address] [place] [address] GFR AM > 60.0 [facility] Comment on above: Result Comment: THE NORMAL LEVEL OF GFR VARIES ACCORDING TO AGE, SEX, AND BODY SIZE. A GFR LEVEL OF LESS THAN 60 ML/MIN REPRESENTS LOSS OF THE ADULT LEVEL OF NORMAL KIDNEY FUNCTION. Performed By: #### M N #### [facility] [address] [place] [address] Globulin (S) [Mass/Vol] 4.4 g/dL Normal 2.5-4.6 [facility] Comment on above: Performed By: #### M N #### [address] [place] [address] Glucose [Mass/Vol] 121 mg/dL High 70-100 [facility] Comment on above: Performed By: #### M N #### [address] [place] [address] Potassium [Moles/Vol] 3.8 mmol/L Normal 3.5-5.1 [facility] Comment on above: Performed By: #### M N #### [address] [place] [address] Protein [Mass/Vol] 7.1 g/dL Normal 6.0-8.3 [facility] Comment on above: Performed By: #### M N #### [address] [place] [address] Sodium [Moles/Vol] 140 mmol/L Normal 136-145 [facility] Comment on above: Performed By: #### M N #### [address] [place] [address] Urea nitrogen [Mass/Vol] 13.0 mg/dL Normal 7-18 [facility] Comment on above: Performed By: #### M N #### [address] [place] [address] DIFFERENTIALon 05-15-2023 HYPOCHROMIA SLIGHT [facility] Comment on above: Performed By: #### D IFF (MANUAL), CBC #### [address] [place] [address] POLYCHROMASIA SLIGHT [facility] Comment on above: Performed By: #### D IFF (MANUAL), CBC #### [address] [place] [address] Anisocytosis Ql (Bld) SLIGHT Normal [facility] Comment on above: Performed By: #### D IFF (MANUAL), CBC #### [address] [place] [address] IMMATURE GRANS NONE SEEN [facility] Comment on above: Performed By: #### D IFF (MANUAL), CBC #### [address] [place] [address] Lymphocytes/100 WBC (Bld) 20 % Normal 16-48 [facility] Comment on above: Performed By: #### D IFF (MANUAL), CBC #### [address] [place] [address] Monocytes/100 WBC (Bld) 6 % Normal 3-9 [facility] Comment on above: Performed By: #### D IFF (MANUAL), CBC #### [facility] [address] [place] [address] Neutrophils/100 WBC (Bld) 74 % Normal 42-80 [facility] Comment on above: Performed By: #### D IFF (MANUAL), CBC #### [facility] [address] [place] [address] PLATELET ESTIMATE NORMAL Normal [facility] Comment on above: Performed By: #### D IFF (MANUAL), CBC #### [facility] [address] [place] [address] TOTAL CELLS COUNTED 100 #CELLS Normal [facility] Comment on above: Performed By: #### D IFF (MANUAL), CBC #### [facility] [address] [place] [address] ED.PDOCon 05-15-2023 ED.PDOC AMBIKA BROWN [id number] Attending provider: MARTHA MCCALLUM [id number] Pastor Abbott 1990 33 DOS: 05/15/23 Hx/Exam - Review of Systems All Other Systems: Pertinent Positives in HPI, All Other Systems Negative - Past Medical History ED PMH: No Arthritis, Yes Asthma, No Cancer, No CVA, No TIA, Yes Depression, Yes Diabetes, Yes GERD, No HTN, Yes Migraine (hemiplegic migraine) - Past Surgical History Surgical History: Yes Cholecystectomy, Yes Tonsillectomy - Social History Smoking Status: Never Smoker Hx Alcohol Use: No - Physical Exam General Appearance: awake, alert, mild distress Eyes: PERRL, EOMI Head, Ears, Nose, and Throat: mucous membranes moist Neck: supple Respiratory: lungs clear Cardiovascular: regular rate, rhythm Abdomen/GI: soft, non-distended, no pulsatile mass, no peritoneal signs, suprapubic tenderness Back: no CVA tenderness Extremity: normal inspection Psychiatric: oriented x3 Skin Exam: warm/dry - Source of History Source of History: Nursing Notes/Vital Signs/Triage Reviewed and Agree - History of Present Illness Chief Complaint: FEVER Additional Comments: 33-year-old female presents with abdominal pain, fever and chills. The patient is 6 days . She has pain around the incision site that seems to radiate to the abdominal area. Her fever at home was 100.2. She has had increased nausea but denies any vomiting or diarrhea. She has been taking ijgk-tcm-latjcro pain control medication as well as Blair with mild improvement. She denies any sick contacts. She has best breathing and formula feeding her child. (Pastor Abbott) Note(s) - Physician Notes Additional Notes, See Orders for Details: 05/16/23 00:03 Acc#: [id number] Exam/Proc: ABDOMEN/PELVIS W/CONTRAST Dept: COMPUTED TOMOGRAPHY EXAMINATION: CT OF THE ABDOMEN AND PELVIS WITH CONTRAST05/15/2023 9:[address] ABDOMEN/PELVIS WITH CONTRAST TECHNIQUE: CT of the abdomen and pelvis was performed with the administration of intravenous contrast. Multiplanar reformatted images are provided for review. Automated exposure control, iterative reconstruction, and/or weight based adjustment of the mA/kV was utilized to reduce the radiation dose to as low as reasonably achievable. COMPARISON: CT abdomen pelvis June 10, 2020 HISTORY: ORDERING SYSTEM PROVIDED HISTORY: TECHNOLOGIST PROVIDED HISTORY: Reason for Exam: intrabdominal wall abscess FINDINGS: The size, density, and morphology of the liver, spleen, adrenals, kidneys, pancreas and unopacified loops of bowel are unremarkable. The opacified aorta demonstrates normal size and morphology without aneurysmal dilation or dissection. There are no enlarged lymph nodes by pathologic size criteria. There is no free fluid within the pelvis. The bladder has an unremarkable CT appearance. The uterus is enlarged from recently gravid state. Fluid is identified within the anterior abdominal wall adipose tissue. There is no evidence for organized abscess. The osseous structures are without gross lytic or sclerotic lesion. The lung bases are clear. IMPRESSION: Seroma within the anterior abdominal wall without evidence for organized abscess. Electronically signed By Tee Jacobs MD 05/15/2023 11:35:03 PM [facility] Workstation ID : [id number] REPORT SIGNATURE ON FILE Electronically Signed Date/Time: 05/15/23 0738 Dictated Date/time: 05/15/232329 CC: Patient is afebrile today but comfortable no acute distress. Her CT abdomen shows a seroma with anterior abdominal wall no evidence of an abscess.No appreciable retained products are noted on the CT.Patient's respiratory swab is negative. I consulted OB and spoke to her PLASTIC T[employer] INSULATION SUPERVISOR Dr. Saavedra. At this time recommends antibiotics, Keflex and close follow-up in his office. (Miguel Ferrer) MEDICAL DECISION MAKING Number and Complexity of Problems Differential Diagnosis but not limited to: Postoperative abscess, seroma, cellulitis, postop infection MDM Data ED Course: Patient has pending laboratory and diagnostic test results. We will sign the patient out to incoming ED physician for the rest of the ED course, results and disposition. Shared decision making: Patient This note is completed with assistance of the [employer] dictation program. While every attempt has been made to dictate accurately, the system does make errors in transcribing the precise spoken word intended. 05/19/23 05:20 (Pastor Abbott) EKG - EKG EKG Interpretation: Not Applicable Discharge Screen - Discharge Discharge Problem: Abdominal pain Disposition: HOME/SELF CARE Condition: Good Instructions: DI for Abdominal Pain-Adult Prescriptions: Cephalexin [Keflex] 500 mg PO 4 X DAY 10 Days #40 cap Transmission Status: Received by [facility] 42 Referrals: Alison Weeks [Primary Care Provider] - Hanna Smith [NON STAFF] - Dictated By: Tung (more content not included)... Normal [facility] URINALYSISon 05-15-2023 Appearance (U) Clear Normal CLEAR [facility] Comment on above: Order Comment: What Is Urine Source? Random What Is Urine Source? Random Performed By: #### U SRIKANTH, UA #### [address] [address] Color (U) Lt. Yellow [facility] Comment on above: Order Comment: What Is Urine Source? Random What Is Urine Source? Random Performed By: #### U SRIKANTH, UA #### [address] [address] Hemoglobin Ql (U) 2+ Abnormal NEGATIVE [facility] Comment on above: Order Comment: What Is Urine Source? Random What Is Urine Source? Random Performed By: #### U SRIKANTH, UA #### [address] [address] pH (U) 7.0 [pH] Normal 5.0-9.0 [facility] Comment on above: Order Comment: What Is Urine Source? Random What Is Urine Source? Random Performed By: #### U SRIKANTH, UA #### [address] [address] URINE BILIRUBIN - DIPSTICK Negative Normal NEGATIVE [facility] Comment on above: Order Comment: What Is Urine Source? Random What Is Urine Source? Random Performed By: #### U SRIKANTH, UA #### [address] [address] URINE GLUCOSE -DIPSTICK Negative Normal NEGATIVE [facility] Comment on above: Order Comment: What Is Urine Source? Random What Is Urine Source? Random Performed By: #### U SRIKANTH, UA #### [address] [address] URINE KETONE Negative Normal NEGATIVE [facility] Comment on above: Order Comment: What Is Urine Source? Random What Is Urine Source? Random Performed By: #### U SRIKANTH, UA #### [address] [address] URINE LEUK ESTERASE Negative Normal NEGATIVE [facility] Comment on above: Order Comment: What Is Urine Source? Random What Is Urine Source? Random Performed By: #### U SRIKANTH, UA #### [address] [address] URINE NITRITE - DIPSTICK Negative Normal NEGATIVE [facility] Comment on above: Order Comment: What Is Urine Source? Random What Is Urine Source? Random Performed By: #### U SRIKANTH, UA #### [address] [address] URINE PROTEIN - DIPSTICK Negative Normal NEGATIVE [facility] Comment on above: Order Comment: What Is Urine Source? Random What Is Urine Source? Random Performed By: #### U SRIKANTH, UA #### [address] [address] URINE SPEC GRAVITY, DIPSTICK 1.015 Normal 1.003-1.035 [facility] Comment on above: Order Comment: What Is Urine Source? Random What Is Urine Source? Random Performed By: #### U SRIKANTH, UA #### [address] [address] URINE UROBILINOGEN - DIPSTICK 0.2 E.U./dL Normal <=1.0 [facility] Comment on above: Order Comment: What Is Urine Source? Random What Is Urine Source? Random Performed By: #### U SRIKANTH, UA #### [address] [address] URINE MICROSCOPICon 05-15-20 23 UR SQUAM EPITH MODERATE Normal NONE-MANY [facility] Comment on above: Performed By: #### U SRIKANTH, UA #### [facility] [address] [place] [address] URINE AMORPHOUS PHOSPHATES 1+ Normal <1+ [facility] Comment on above: Performed By: #### U SRIKANTH, UA #### [facility] [address] [place] [address] URINE BACTERIA 1+ Normal <1+ [facility] Comment on above: Performed By: #### U SRIKANTH, UA #### [facility] [address] [place] [address] URINE RBC 10-20 Normal 0-2 [facility] Comment on above: Performed By: #### U SRIKANTH, UA #### [facility] [address] [place] [address] URINE WBC 3-5 Normal 0-3 [facility] Comment on above: Performed By: #### U SRIKANTH, UA #### [facility] [address] [place] [address] 42on 05-12-2023 42 Follow up visit with pt. Mom continues to offer breast and pump with each feed. Assistance given with . Instructions given on basic positioning and latch-on technique. Shown mom how to utilize infants rooting/sucking reflexes to aid in latching baby to breast. Importance of wide, deep, latch discussed. Multiple attempts made. Attempted at breast for 15 minutes, Baby latched with few sucks, but unable to maintain. No latch obtained. Written feeding plan reviewed and given to pt. PLAN: Patient to feed on demand but if it's been 2-3 hrs and infant is not showing hunger signs, to unwrap , place skin to skin, hand express and attempt infant at breast for 15-20 minutes. If infant becomes fussy at breast, calm infant and retry. If no latch obtained after 15-20 minutes, supplement infant with 2-10 ml (first 24 hrs) 5-15 ml (24-48 hrs) 15-30 ml (48-72 hr) and 30-60 (72-96 hrs) may require more if infant still showing hunger signs. If no STEVEN available then formula will need to be given to make up difference. Discussed all alterative feeding methods and nipple confusion risks with mother. Educated mother every time supplementation is given, mother must pump with double electric breast pump to protect milk supply. Mother states understanding of importance of pumping 8-10 times a day. If infant able to latch and transfers well and no supplementation given then no need to pump. Parents states understanding of feeding plan. Shown section of Taking Care of Yourself and Baby' Booklet. Reviewed baby-led, cue based feedings (8-12x/day), how to know baby is getting enough, output parameters and milk storage guidelines. Discussed engorgement, plugged ducts and mastitis. Patient encouraged to seek help ABIMAEL for any concerns. phone number and [facility] information shared from booklet. Mom voiced understanding. No further questions. Spectra pump for home use. Normal [facility] 42 F/U vs from . Mom sleeping. in nursery. has been bottle feeding this shift. Normal [facility] Progress Noteon 05-12-2023 Progress Note Note-Lizy garner POST OPERATIVE DAY # 3 Ambika Brown is a 33 y.o. who was seen & examined today. Her was complicated by: Patient Active Problem List Diagnosis Infertility, female Obesity GERD (gastroesophageal reflux disease) Left-sided weakness Mild intermittent asthma without complication Migraine Hemiplegic migraine without status migrainosus, not intractable Chronic migraine without aura Somatic dysfunction of head region Somatic dysfunction of cervical region Somatic dysfunction of thoracic region Somatic dysfunction of both upper extremities Somatic dysfunction of both lower extremities 37 weeks gestation of Today she is doing well without any chief complaint. Her lochia is light. She denies Headache, Chest Pain, Vision Changes, and Shortness of Breath. She is ambulating well. Flatus present. Bowel movement present. Voiding without difficulty. She is tolerating solids. Pain is controlled yes. Vital Signs: Vitals: 05/10/23 1916 05/10/23 2059 05/11/23 0826 05/11/23 2107 BP: (!) 141/76 130/80 128/66 128/70 BP Location: Left arm Patient Position: Sitting Pulse: 88 96 80 84 Resp: 18 16 18 Temp: 36.8 ?C (98.2 ?F) 36.2 ?C (97.1 ?F) 36.7 ?C (98.1 ?F) TempSrc: Temporal Temporal Temporal SpO2: 98% 95% 98% Weight: Height: Urine Input & Output last 24hrs: No intake or output data in the 24 hours ending 05/12/2318 Physical Exam: Gen: NAD, well appearing HEENT: Normocephalic, Atraumatic, EOMI Resp: Non-labored breathing, no respiratory distress Abd: soft, NTND, no rebound, no guarding. Fundus firm and at umbilicus Incision: Silverlon dressing in place, C/D/I Ext: +2 LE edema, no calf tenderness or swelling Labs: Lab Results Component Value Date WBC 15.5 (H) 05/07/2023 HGB 9.9 (L) 05/10/2023 HCT 35.2 05/07/2023 MCV 78.4 (L) 05/07/2023 PLT 211 05/07/2023 O Antibody Screen: No results found for: LABANTI No results found for: RUBELLAIGG LABOR DELIVERY ??? SCD's ONLY (labor through ambulation) SCD's PLUS Prophylactic Anticoagulation until discharge SCD's PLUS Prophylactic Anticoagulation for 6 weeks SCD's PLUS Therapeutic Anticoagulation for 6 weeks Vaginal Delivery [] BMI ? 40 kg/m2 Delivery All patients Vaginal Delivery [] BMI ? 40 kg/m2 AND [] Antepartum hospitalization ? 72 hours within the past month Delivery 1 Major Risk Factor: [x] BMI ? 35 kg/m2 [] Low Risk Thrombophilia [] PPH+RBCs, IR, or operation [] Infection+Antibiotics [] Antepartum hospitalization ? 72 hours within the past month [] PMH: Sickle Cell, SLE, Cardiac Dz, Active IBD, Active Cancer, Nephrotic Syndrome OR 2 Minor Risk Factors: [] Multiple gestation [] Age > 40 [] PPH ? 1,000cc [] (+)FMH of VTE [] Smoker [] Preeclampsia [] BMI ? 40 kg/m2 AND [] Low Risk Thrombophilia OR ANY OF THE FOLLOWING: [] High Risk Thrombophilia without prior VTE [] Low Risk Thrombophilia with (+)FMH of VTE [] Any single prior VTE ANY OF THE FOLLOWING: [] Already on LMWH/UFH [] Multiple prior VTE [] High Risk Thrombophilia with prior VTE Low Risk Thrombophilia: FVL (heterozygous), Prothrombin (heterozygous), Protein C, Protein S High Risk Thrombophilia: FVL (homozygous), Prothrombin (homozygous), FVL+Prothrombin (heterozygous), Antithrombin III, APLS Assessment/Plan: Ambika Brown is a 33 y.o. POD # 3 s/p PLTCS 2/2 Cat II FHT Care - Doing well, VSS - Male - breast feeding - Contraception: Declines - Encourage ambulation and use of incentive spirometer - D/C mijares catheter and saline lock IV on POD #1 - Postop Hb 9.9 - VTE Prophylaxis: Prophylactic Dosing x 6 weeks SIPEwoSF - BP's normotensive - Labetalol currently held - Asymptomatic GDMA2 - AM fasting 99 - Follow up for 2hr GTT Acute Blood Loss Anemia PPH - VSS, asymptomatic - iron and colace ordered Obesity - Continue lovenox ppx PVC's/Palpitations, Intermittent SVT - Implantable loop recorder in place - VSS, asymptomatic Asthma - Asymptomatic Hypothyroidism - Continue home synthroid APLS Recurrent Loss - Continue ppx lovenox 6 weeks Migraines - Asx HOSEA - Not on CPAP Anxiety/Depression - Not on meds, mood stable Disposition: Anticipate discharge today per private attending's discretion Based on my clinical assessment, this patient is safe for self discharge (does not need transport by wheelchair) if she so chooses. Provider's Name: MD Shaw Mansfield MD 05/12/2023, 7:18 AM ATTENDING NOTE: I personally saw and evaluated the patient. I reviewed the care provided by the Resident including the patient's medical history, physical exam findings, diagnosis and treatment plan. I also agree with the documentation from the Resident unless otherwise indicated: Pt is doing well. Has a periumbi (more content not included)... Normal [facility] 42on 05-11-2023 42 Mom continues to pum p each feeding. Starting to see drops when pumping which is encouraged to her. Declines assistance with latch today, encouraged her to try before discharge tomorrow. Demonstrated the use of her Spectra pump. Normal [facility] No Panel Informationon 05-11 No evidence of deep vein or superficial vein thrombosis in the left lower extremity. Vessels demonstrate normal compressibility, color filling, and phasic and spontaneous flow. Contralateral imaging of the right common femoral vein was normal. Right Lower Venous For comparison purposes, the right common femoral vein was briefly interrogated. The vein demonstrates normal color filling and compressibility. Doppler flow was phasic and spontaneous. Left Lower Venous No evidence of deep vein or superficial vein thrombosis. The common femoral, saphenofemoral junction, femoral, popliteal, gastrocnemius, soleal, greater saphenous, posterior tibial, and peroneal veins were imaged in the transverse view and showed normal compressibility. The common femoral, middle femoral, and popliteal veins were imaged in the longitudinal view and showed normal color filling and normal phasic and spontaneous flow. Preliminary Report Preliminary report called to secure chat to Dr. Burleson and informed nurse Alison on the floor after exam. on 05/11/2023 at 09:00 EDT. Nail Expert Details A britt scale, color Doppler imaging and spectral Doppler analysis ultrasound was performed. During the study longitudinal and transverse views were obtained. Pulsed wave doppler was performed. The exam was performed with the patient in the supine position. Overall the study quality was adequate. Study was technically difficult due to: body habitus and bedside exam. CV CPACS Progress Noteon 05-11-2023 Progress Note Note-Lizy garner POST OPERATIVE DAY # 2 Ambika Brown is a 33 y.o. who was seen & examined today. Her was complicated by: Patient Active Problem List Diagnosis Infertility, female Obesity GERD (gastroesophageal reflux disease) Left-sided weakness Mild intermittent asthma without complication Migraine Hemiplegic migraine without status migrainosus, not intractable Chronic migraine without aura Somatic dysfunction of head region Somatic dysfunction of cervical region Somatic dysfunction of thoracic region Somatic dysfunction of both upper extremities Somatic dysfunction of both lower extremities 37 weeks gestation of Today she is doing well without any chief complaint. Her lochia is light. She denies Headache, Chest Pain, Vision Changes, and Shortness of Breath. She is ambulating well. Flatus present. Bowel movement absent. Voiding without difficulty. She is tolerating solids. Pain is controlled. Vital Signs: Vitals: 05/09/23 2327 05/10/23 0824 05/10/23 1916 05/10/239 BP: 96/61 99/57 (!) 141/76 130/80 BP Location: Left arm Patient Position: Lying Pulse: 80 85 88 96 Resp: 17 18 18 Temp: 36.6 ?C (97.8 ?F) 36.2 ?C (97.1 ?F) 36.8 ?C (98.2 ?F) TempSrc: Temporal Temporal Temporal SpO2: 98% 96% 98% Weight: Height: Urine Input & Output last 24hrs: No intake or output data in the 24 hours ending 05/11/23 0600 Physical Exam: GENERAL APPEARANCE: alert, well appearing, in no apparent distress ABDOMEN : benign non-tender, without masses or organomegaly palpable NEUROLOGIC: alert, oriented, normal speech, no focal findings or movement disorder noted UTERUS : normal size, well involuted, firm,non-tender INCISION: silverlon dressing in place Labs: Lab Results Component Value Date WBC 15.5 (H) 05/07/2023 HGB 9.9 (L) 05/10/2023 HCT 35.2 05/07/2023 MCV 78.4 (L) 05/07/2023 PLT 211 05/07/2023 O Antibody Screen: No results found for: LABANTI No results found for: RUBELLAIGG LABOR DELIVERY ??? SCD's ONLY (labor through ambulation) SCD's PLUS Prophylactic Anticoagulation until discharge SCD's PLUS Prophylactic Anticoagulation for 6 weeks SCD's PLUS Therapeutic Anticoagulation for 6 weeks Vaginal Delivery [] BMI ? 40 kg/m2 Delivery All patients Vaginal Delivery [] BMI ? 40 kg/m2 AND [] Antepartum hospitalization ? 72 hours within the past month Delivery 1 Major Risk Factor: [] BMI ? 35 kg/m2 [] Low Risk Thrombophilia [] PPH+RBCs, IR, or operation [] Infection+Antibiotics [] Antepartum hospitalization ? 72 hours within the past month [] PMH: Sickle Cell, SLE, Cardiac Dz, Active IBD, Active Cancer, Nephrotic Syndrome OR 2 Minor Risk Factors: [] Multiple gestation [] Age > 40 [] PPH ? 1,000cc [] (+)FMH of VTE [] Smoker [] Preeclampsia [] BMI ? 40 kg/m2 AND [] Low Risk Thrombophilia OR ANY OF THE FOLLOWING: [] High Risk Thrombophilia without prior VTE [] Low Risk Thrombophilia with (+)FMH of VTE [] Any single prior VTE ANY OF THE FOLLOWING: [] Already on LMWH/UFH [] Multiple prior VTE [] High Risk Thrombophilia with prior VTE Low Risk Thrombophilia: FVL (heterozygous), Prothrombin (heterozygous), Protein C, Protein S High Risk Thrombophilia: FVL (homozygous), Prothrombin (homozygous), FVL+Prothrombin (heterozygous), Antithrombin III, APLS Assessment/Plan: Ambika Brown is a 33 y.o. POD # 2 s/p PLTCS 2/2 Cat II FHT Care - Doing well, VSS - Male - breast feeding - Contraception: Per Private Attending - Encourage ambulation and use of incentive spirometer - D/C mijares catheter and saline lock IV on POD #1 - Postop Hb 9.9 - VTE Prophylaxis: Prophylactic Dosing x 6 weeks SIPEwoSF - Met criteria prior to admission - Antepartum regimen: Labetalol 200 mg TID - BP NT to low mild range overnight - PreE labs negative on admission - Per MFM, beta blockade preferable to Procardia given hx SVT and ectopy GDMA2 - Antepartum: Metformin 1000 mg qAM and HS, 22 U NPH HS - PP discontinued Metformin, AM fasting 99 Acute Blood Loss Anemia PPH - Hb on admission 11.5 - Hb POD#1 9.9 - EBL 1100 ml - Asymptomatic, vital signs stable - Iron and colace ordered Obesity - BMI 52 - Encourage ambulation - Prophylactic lovenox until discharge PVCs/Palpitations Intermittent SVT Syncopal episodes - Implantable loop recorder placed 08/31 - Follows with [facility] cards, will follow up with them PP - Maintain Mag >2 - Asymptomatic PP Asthma - Mild, intermittent - Rare albuterol use - No hx hospitalizations or intubations Hypothyroidism - Continue home synthroid 50 mcg daily APLS Recurrent loss - Antepartum: on Lovenox 40 mg and bASA - Ppx Lovenox 6wks PP Migraines - Asymptomatic PP - Follows with [facility] migraines clinic HOSEA - Not on CPAP Anxiety/Depression - Not on medicat (more content not included)... Normal [facility] 42on 05-10-2023 42 Called to assist wit h feeding. Mom feels is latching to the left nipple, does not latch to the rt. Baby is now becoming fussy and frustrated when latching to either side and she is unable to console infant. Observed attempt to latch, shallow suckling with cheeks dimpling in. No swallows noted, falls asleep quickly. Validated moms concerns, lack of swallowing and shallow latch. Recommended pumping with hospital pump to support supply, pump set up and explained. Showed mom how to cup feed, baby took 12cc of formula and was content. Patient will continue to attempt latch, pump after each attempt and cup feed STEVEN/formula while baby is not transferring milk. Normal [facility] Hemoglobin (Bld) [Mass/Vol]o n 05-10-2023 Interpretation and review of laboratory results Abnormal [facility] - Chemistry and C hemistry - challengeon 05-10-2023 Glucose [Mass/Vol] 99 mg/dL 70 - 100 mg/dL [facility] - Hematology and Cell countson 05-10-2023 Hemoglobin (Bld) [Mass/Vol] 9.9 g/dL Low 11.7 - 16.0 g/dL [facility] No Panel InformationOrdered By: Jamie Muro on 05-10-2023 Case Report Surgical Pathology Case: [id number] Authorizing Provider: Hanna Smith DO Collected: 05/09/2023 0201 Ordering Location: [facility]OR [facility] DELIVERY Received: 05/09/2023 0955 Pathologist: Jamie Muro MD Specimen: Placenta, Placenta [facility] Work Phone: Clinical Information [id number] wN1xh blGmWFQnoEFaZ3FvtdooSBag MG9pSW9vjCpneACvyABkBAFs TvIjc6epv147iWKwz6acXIEW XVerZYEEYHp1eFvaF55jq1D2 AwkqP5kmVKMrRSxcUFJcNCvq hAPbGVkwehKxHlY1LAaaWYGq WhK7SHRbsKAkXOY6fUtaEDJh eenmKbE7GLkaSMBwrcpaDWt0 CTmlXWRyqZS9PNNyyKXtM1Ka ZWRvLR1gefg7UGW2OWvaEEYz BoW3QZRfsIGxZPXuuNzsHVne j369FHT6OvKmRPSqmsUsyiru EQEzLLkmFPZlTaPwO0KpKIDt T6MaQSVgYFQwmWHvWSuwwB6d PPRttgCoXQ2dSWfmPc2mWFQt cn0= [facility] Work Phone: Disclaimer j6rrbIXzYMNbrDJcAwOw MDAw PQVjm6emUVFmwHJwHkWdGaQg XdXaJmzweXJbAVFnKxTgh7db w167aDNsw5ugZZVsWuP2yRVy NCRaG88yBQYIF087IFKwCWjv m5mbv2SvWAHhfJZuh9R8MHAT VDhhDRGXNMs4jHamQ81ru1J4 DcrlV3chOEDfBUGjW7JlLL2w IBHvQfy7KGN0HCZ1ZQKgOUPk C2CwEK1jMNMaaPQmIRp5p9gp cRrjRFUxGTE5s3buAWfdbmJf QF1ale3prRm4d9jhwbRfZZCt OONkhWYMVUKeE9VweXqmUi1i uIe6eZimXwyaFVV2Wzh6HN7x hg18bhm9dNgmZLUfvfhzEvU2 CWstZKJxvmeiFGx8WMgnCEDm yTO2ICEieUOfW6LkSCFfEW7c aii0OKK1BXqtKQEwNuV1FPFv oTBnTWSrkObbAGuxp151WAN5 TgSzHT7jZ8Rjf5C6xY0tdWKu SLWuwREtTgNyKEIeya1wwDQa VBobd7RgUUG8vcF7cWKwaEWc EHTvPO99Zmimf3BcYaxbIAV5 KOGxswZbo2Rri9ucVgAvjkDp Q0geC9PdGOScQIRmFTOhVzGg zjMot0Ryv0VnpEXukIe7v9dy EMKdYNZbxTznw1tiLSI9VNGp X5A4mOUzh5xcKXlrKZWeeUG8 rmW1NGVceYOiV7GqdB6fEVXp IS0mgab7a0sfCPS9SFeaCLWh GyL1uyA1OONxuTBxGAMjsBdv VKfgf552OGU7UlHtGMCrr6Kt E2AbcCfqR17evJviA99dBZEq uEbbkS1plSxwkI2iVkKaVoFe NFxxbFxwbGFpblxmMVxmczE2 MCtoauadIGAnXDmjK4rlLsZs NJJfeSnoWZzlf1LpWYDwIZPt NVJzZVbuZ2jbrZ1eilhyNRux VJMdgYcfw4dxTaFjwYN2MV5a gfOgJDXthGigsoX2vcTzrBbw sN6maP8nqVmtiG9ioDZrzQH1 cnksIGluIHNpdHUgaHlicmlk bHfvwUvcstjyvB1uTAM9nGMd BBA8lGMkHBSrUNGdZOKceQ21 aw1dnAOjqbHaW2JoR4OoaGUp dBusGg5yGSWobniuIPQdJSys AVWhPPVwIuUyjdDdp4TcbM0n LNCcEJCiNQ42hkWzwnY4vXBc YWJvdmUgdGVzdHMgaXMgcmVn dWxhdGVkIGFzIGFuIGFuYWx5 vNIhf7LfM2qnsSJlvuZtH7Fh jVFjHQCJML5bEMcmr6AbnPKe dEOod3LmRMQlPSEjeZ2zNNOi GS4sTCAoULsuASMhjwGnkb4z khLyJEWrNWWuV3LmlwmddOmt iuCfCHOimh7htfBjQWK8QEKo ZSBjbGluaWNhbCBsYWJvcmF0 z0KyLAJvw5NqC5ZqfNNuOPLi eEBhIJL0i9YdsL3xZQbbvFNu MCXpHL8ueMFcXXLtPPLqATAw GSSeQxsnyNmiDFKHNMZuj8Ui EK7zWWIqwAqsXOSrbH3fm8Bo KRQqt94iKQQFZKpvSYHnNSRD REEgaGFzIGRldGVybWluZWQg cCibpDVsqFDgICJeZYZeJA6v QNCcjbSoeUXcl8BmxRMjbqLa y4DokwXvECVyJQT0JxUinTIl WFRcvhJZdYpnbIaoOLCrd8Ml KLwmmWMcm3D1YRuoxaS9ZZCd GXXyfxRhcc0nNQGuopOkMLQq VuTmvlZdvYVvUZUhNQQ2uXBf dWUuIEFwcHJvcHJpYXRlIHBv z9f6tPExQNOyNIBuYExblRt1 BMAys086he4cabGpq0mzoyVi DFBhnPfpAURwFWlqb7MgYCUs zT6icQ4atRJlHSuaPPuvx1q8 wPM9hSHjkGO3xWAfjNyqQXDf WPBprPOnDwM6pOBpRUHpz174 rh4jffHxdP66WAAsCEfqJVS4 KLSmc7KhxM2fvwnooIY3dOBw wzvks4t7eLJmA9EbbUWwIwcr NBjqgPFfx5x4pKAhWsSmdLJq cacjCp1yZA8abU7doUrwfB5q vDAftEAkqXSac4MrqBVznSQ5 DPXkh0SfXvHongO6DGaoZBR0 UNJku67eAISuTQtklKDdLDTc jMraz0Bodh0mNkQcvQm5noHj fS97xOOqAcEdzB30HPSiugW8 OKPnx1w9iMNxNSA6aX2uQAnx ynTlVEKsWOOnZKsyTSVkiO5l t9yxaOevlYgqz5YdFsJdy7Ha rlHfMMApkqu6tFYwquHsXSSf sMVpMvyjOJBxkJUvfM0jwqNv XHBhcn0= [facility] [employer] Work Phone: Gross Description d5mdlUBcKPCuvKHkZYOk N1x3 pKJfm3Q9tunfDM3xsDaprRf8 rQpvAGFvycC7cYFwCZvwn8bi UFG5p1ygrfsxPVAmXNntUy2n iZWvpClxBqHlI3Mwe0CtPKe8 gG89WGZjdD7wyMRiBFegioWr XuT7SPncQYFzFzE5UXIpwHCa LPT4hEjoTKCegrgnTmM6VNzs TEDsviniIGb4EJksUTDzrOA0 WBYozNSpN3HvNGJzPF3huyc2 TJT5IJysEDKcGoD4QZJgaQIf BUFmdVcoAXdjg603VAU9CrLe XHBhcmRccmkxXHJpbjFccGxh eG8zFqTxTEfgfOLbjBV6MGHS ZWNlaXZlZCBmcmVzaCBsYWJl fJMwHYy0FXRoLKZaYyjhjEyk X3HzaRSkOFAbFCRpcYLxRMVt aQ08ozKvd9ZrSHcijtJmzpAw AYGgMSNdthBtJDPsFLVxMI7s mzLyTPYea5w5eEYkYPEwzzRb dGhhdCBhcHBlYXJzIHRvIGJl FLY0xFTzaMLvJFOhMHYvFMSn IB8xcpHvAONyrA4ahDPiGBOu HbZ4bUGanSraP3PqdVNgnAOb ZWxmLiBUaGUgbWVtYnJhbmVz KGCpXZI3kDliEHIkmfN8DTMr lu6kUNDkAOXwMX8krnKzLXUu YXBwZWFyIGNvbXBsZXRlLCB0 l7XsXJOjjNLhdVgjZXLyeXkc VlLbnIGnnp7gHJQzKVDzNSZv cG2dABEAnZQkQuZ0OTxtj6Ym ZmFjZSBpcyBibHVlLWdyYXkg tA7csQFyVkSYnBIimF8xuXwi T5EdJXHfirYhTWShKKMirvN9 byBiZSBpbnNlcnRlZCBpbiB0 mROrsTWxNzWkwxEmp2s7kK55 oNN8x2PusQlpLeX2nWRaqTzv N9OndZLeLJ4cASldQDEpmHMz iYzcOAItnDbrVK2lALOmKURy a21zgZkpCQ2itfdzjl6vGrif x5IjljBap9BlknRgv1Jdo6Tl v7EhqiJ6mMQyIQ52wNSaLWUb uDVzUJP1oiKnJ4YxWoNvgFN4 jPEfjB6fqcVoa6LyvH7xGWO3 qV4cLiAoHClaJVVmTxuakRXb rYUlb8DsTVLoI04uieQgtYPh f7EjNJHjGgdwDPN5TJFcMfGi jS0vNGe0EGVxeH3cm9IjJKEj pmIoz5WoEHouX00ilOjjHl0q ZPQxz00jhFVctnAdZ4Ysv17r aLMoz4mbb1BdkCboNKYoulJw m7Vuza4rLSIzIRCcsQTyAQ74 QJAwYQXjnHNkgdInKf8yFUaf FFZmVPM3MBEoUICldK2xJUrd jEcnjJLlC84qNEZynnVqoRSg NiOixiQeBMN7eJEryWxhY5Oe oPVrm9FmL8inBBQePSTozzQh pg2gARGvPLCeOUBime7qyXBp dXJmYWNlIGlzIGVudGlyZWx5 DNJywiFvKJOpEswqxC7psJcz dOSrALHdEH6fkb84uqAzu9M0 uWLen94qOzTdOBidMVS9yUXa hXJeHBRhfaJjdeNcu27ddWyp w3Tivzu7MVRtPROlSEQaOiFn h55qOFEQucNtk0SrxSDmGKUe w34fAIRlLDIqJERroGorzWFl DiZhFuRdyiNaSQ39ZDPadjAg l2SmiLrcznYcDRQoEFL1Fy7u cARzEYUnvcHhy1ebe8jjMtHp vP7yaiIlUXMuo4CrcPF1tGDk lNhwTDniS20rXXTnyqSdtJSr QjIdfuSuqm8vjDfsLkgdW3yw FeEcud75gF6vmJN6bWCufKgh JAsdO05zVLJnmnZcmMJeSmAk exChvf6fgGaeQcueD4kaTMZv JYQlKLVhJSJaetClgZ7bQkMv bCI3yCinp24mx1Dxh1KiuVxq vtVrt4RfnNpgXNCjYAMhriCi LiAgXHBhcn0= [employer] Phone: Pathologist Interpretation Location [facility], [address] [place] [address], [facility] [address], CLIA: [id number]; Joint Commission: HCO [id number]; CAP: [id number] [employer] Phone: Pathology report final diagnosis Narrative k3pwaZJxLYTjzOXqIZHaW8ry hyGcDEIowHXbG7TydgmvODmm HQ7aSO6ucAeygWMnmTDkIBEq UnBgr0mtx657rWGzd9fwOWEJ QQeqCYDSUMj8oTzwV68gh5T4 DimgO57kjGUsTEI8ZQVtIWGt xHMcNKNbDSL0XFVfqLWtL9yp GCYqUP6uozniJSrrJHorEEPz xMZ1GELtdTEcX1AfVVIkKBqj HLIaoei4FmOsDx6ehJKzyHfv MFxwYXJkXHBsYWluXGZzMjAg QHhUB1FCYWNmVRTELJiSWNGK QlrnjR1fJZWqTSZedKWrAD5M CZ9NWeaDHqsGBKSKEGPYF3HS LEDQLKFHDxwVWMQHOURLA7GU VUkkjoCkOP3eXGPiLPCZTvGY FXYJO6DCTKAlPwQQWQkgCZIN IjBSFrLUVYqfaoRzWL3dFKIz EEAUKXPKLA1PVRovSXaVBdSL PFIPCF6FADNUDGTSLE7HNQ7P SUMgVklMTElccGFyfQ== [email or web address] Work Phone: [email or web address] Work Phone: No Panel Informationon 05-10 Interpretation and review of laboratory results Normal [facility] [employer] Performed by: [facility], [address] [place] [address] CLIA ID: [id number] [email or web address] [facility] Progress Noteon 05-10-2023 Progress Note Note-Lizy garner POST OPERATIVE DAY # 1 Ambika Brown is a 33 y.o. who was seen & examined today. Her was complicated by: Patient Active Problem List Diagnosis Infertility, female Obesity GERD (gastroesophageal reflux disease) Left-sided weakness Mild intermittent asthma without complication Migraine Hemiplegic migraine without status migrainosus, not intractable Chronic migraine without aura Somatic dysfunction of head region Somatic dysfunction of cervical region Somatic dysfunction of thoracic region Somatic dysfunction of both upper extremities Somatic dysfunction of both lower extremities 37 weeks gestation of Today she is doing well without any chief complaint. Her lochia is light. She denies Headache, Chest Pain, Vision Changes, and Shortness of Breath. She is ambulating well. Flatus present. Bowel movement absent. Voiding without difficulty. She is tolerating solids. Pain is controlled yes. Vital Signs: Vitals: 05/09/23 1200 05/09/23 1555 05/09/23201305/09/23 2327 BP: 135/65 93/64 136/63 96/61 BP Location: Left arm Patient Position: Sitting Pulse: 59 66 74 80 Resp: 18 18 16 17 Temp: 36.4 ?C (97.5 ?F) 36.6 ?C (97.8 ?F) 36.3 ?C (97.3 ?F) 36.6 ?C (97.8 ?F) TempSrc: Temporal Temporal Temporal Temporal SpO2: 97% 96% 96% 98% Weight: Height: Urine Input & Output last 24hrs: Intake/Output Summary (Last 24 hours) at 05/10/2023 0557 Last data filed at 05/09/2023 2233 Gross per 24 hour Intake -- Output 850 ml Net -850 ml Physical Exam: GENERAL APPEARANCE: alert, well appearing, in no apparent distress ABDOMEN : benign non-tender, without masses or organomegaly palpable EXTREMITIES: no redness or tenderness in the calves or thighs, no edema NEUROLOGIC: alert, oriented, normal speech, no focal findings or movement disorder noted UTERUS : normal size, well involuted, firm, non-tender Desc; incision: no drainage, Silverlon dressing Labs: Lab Results Component Value Date WBC 15.5 (H) 05/07/2023 HGB 9.9 (L) 05/10/2023 HCT 35.2 05/07/2023 MCV 78.4 (L) 05/07/2023 PLT 211 05/07/2023 O Antibody Screen: No results found for: LABANTI No results found for: RUBELLAIGG LABOR DELIVERY ??? SCD's ONLY (labor through ambulation) SCD's PLUS Prophylactic Anticoagulation until discharge SCD's PLUS Prophylactic Anticoagulation for 6 weeks SCD's PLUS Therapeutic Anticoagulation for 6 weeks Vaginal Delivery BMI ? 40 kg/m2 Delivery All patients Vaginal Delivery BMI ? 40 kg/m2 AND Antepartum hospitalization ? 72 hours within the past month Delivery 1 Major Risk Factor: x BMI ? 35 kg/m2 Low Risk Thrombophilia PPH+RBCs, IR, or operation Infection+Antibiotics Antepartum hospitalization ? 72 hours within the past month PMH: Sickle Cell, SLE, Cardiac Dz, Active IBD, Active Cancer, Nephrotic Syndrome OR 2 Minor Risk Factors: Multiple gestation Age > 40 PPH ? 1,000cc (+)FMH of VTE Smoker Preeclampsia BMI ? 40 kg/m2 AND Low Risk Thrombophilia OR ANY OF THE FOLLOWING: High Risk Thrombophilia without prior VTE Low Risk Thrombophilia with (+)FMH of VTE Any single prior VTE ANY OF THE FOLLOWING: Already on LMWH/UFH Multiple prior VTE High Risk Thrombophilia with prior VTE Low Risk Thrombophilia: FVL (heterozygous), Prothrombin (heterozygous), Protein C, Protein S High Risk Thrombophilia: FVL (homozygous), Prothrombin (homozygous), FVL+Prothrombin (heterozygous), Antithrombin III, APLS Assessment/Plan: Ambika Brown is a 33 y.o. POD # 1 s/p pLTCS 2/2 Cat II FHT Care - Doing well, VSS - Male - breast feeding - Contraception: Per Private Attending - Encourage ambulation and use of incentive spirometer - D/C mijares catheter and saline lock IV on POD #1 - Postop Hb 9.9 - VTE Prophylaxis: Prophylactic Dosing x 6 weeks SIPEwoSF -Met criteria prior to admission -Antepartum regimen labetalol 200 mg TID -BPs normotensive to low mild range, labetalol held overnight -Pre-E labs negative on admission -Per MFM, beta blockade is preferred to Procardia given history of SVT and ectopy GDMA2 -Antepartum regimen: Metformin 1000 mg qAM and HS, 22 units NPH at HS - plan DC medication and obtain AM fasting -AM fastin PPH - QBL 1100 - Preop Hgb 11.5; Postop Hgb 9.9 -VSS, asymptomatic, lochia light -Continue with PO Iron and Colace Maternal Obesity -BMI 52 -SCDs when not ambulatory -Encourage ambulation PVCs/Palpitations Intermittent SVT Syncopal episodes -No syncopal episodes since 06/2022 -Implantable loop recorder placed 08/2022 -Follows with [facility] cardiology, plan to follow-up -Maintain mag levels > 2.0 -Continue home magnesium oxide -Asymptomatic on Asthma -No history of hospitalizations or intubations -Albuterol PRN Hypothyroidism - (more content not included)... Normal [facility] 42on 05-09-2023 42 Attempted at breast for 15 mins , latched a few sucks then would fall asleep. Hand expressed with mother for 1 ml and fed to . Mother able to hand express drops on her own. Hand expression of breast milk taught and return demonstration given. Patient able to easily express drops of colostrum. Patient educated that hand expression can be helpful in assisting baby with latch and stimulating milk production. Encouraged frequent hand expression - before, after and between feeds - to boost milk production. Mom concerned regarding baby's sleepiness. Helped mom place baby skin to skin. Discussed importance of skin to skin for infants adaptation to extra-uterine life, infants development and for mom's milk production. Reviewed infants feeding cues and sleep cycles. Taught mom hand expression, colostrum obtained and placed on infants lips. Naps encouraged. Reassurance given to mom. Instructed dad on touch pad to call for LC when baby shows interest in feeding. Mom and Dad voiced understanding. Patient states she has insulin resistance and talking to doctor about continuing metformin Educated MARGARITA Patrick and patient, if no latch by 24 hrs, will need to start double electric pumping breast and supplementing with STEVEN or formula if STEVEN not available Gave patient outpatient resources since clinical staff pharmacist declines diagnosis of tongue tie. Educated when would need corrected and gave recommendations Normal [facility] 42 Called to room with assistance latching. Mother currently very nauseous and vomiting, consents to help with Attempted infant on breast for 20 min's and no latch achieved. On and off latch observed. Checked for tongue tie and signs of tongue tie present, let primary RN collins serna know about tongue tie. HAND EXPRESSED 1 ml AND GIVEN TO Mom concerned regarding baby's sleepiness. Helped mom place baby skin to skin. Discussed importance of skin to skin for infants adaptation to extra-uterine life, infants development and for mom's milk production. Reviewed infants feeding cues and sleep cycles. Taught mom hand expression, colostrum obtained and placed on infants lips. Naps encouraged. Reassurance given to mom. Instructed dad on touch pad to call for LC when baby shows interest in feeding. Mom and Dad voiced understanding. Hand Expression of colostrum/breast milk taught and return demonstration given. Patient able to express drops of colostrum. Patient educated that hand expression can be helpful in assisting baby with latch, softening areola when engorged and stimulating milk production. Encouraged frequent hand expression- before, after and between feeds-to boost milk production. Initial visit with mom. On demand, cue based, unlimited feeding reinforced, at least 8 times in 24 hours (after the first 24 hours). Feeding cues and output parameters discussed. Frequent skin to skin encouraged. Discussed benefits of skin to skin and milk production. Demand and supply system of breast milk production discussed. Risks of early formula supplementation and use of bottle/artificial nipple/ pacifier discussed with patient. Patient receptive to teaching. Patient's questions answered. Encouraged to call LC as needed, reviewed touch pad with patient. SHOWN HOW TO CALL AND ENCOURAGED TO CALL FOR ASSISTANCE WITH LATCHING Normal [facility] CARECOORDon 05-09-2023 CARECOORD Date: 05/09/2023 Name: Ambika Brown : 1990 [facility] Information [place] Patient Information Primary Caregiver: Self Accompanied by/Relationship: S/O;Family Marital Status: Support System: SO/Family Presybeterian/Cultural Factors: Jehovah'S Witness Activities of Daily Living Communication: See demographics Living Arrangements Current Residence: Private residence Lives With: S/O; Family Support System: S/O; Family Income Information Income Source: Employed Financial Resource Strain How hard is it for you to pay for the very basics like food, housing, medical care and heating? N/A Housing Stability In the last 12 months, was there a time when you did not have a steady place to sleep or slept in a [place] [facility] [place] (including now)? No Transportation Needs Has the lack of Transportation kept you from medical appointments? No In the past 12 months, has the lack of transportation kept you from meetings, work, or from getting things needed for daily living? No Food Insecurity Within the past 12 months, have you worried that your food would run out before you got the money to buy more? No Stress Do you feel stress - tense, restless, nervous, or anxious, or unable to sleep at night because you mind is troubled all the time? Mood stable Referral To Financial Resources: N/A Community Resources: Admission folder given upon admission to PP Unit Social Work: N/A CLP: N/A Medical Information 33 year old admitted for induction of labor for NORAH, GDMA2 at 37/4 weeks. 6 Para 0. delivery. 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 B. C's of safe sleep. Always place your baby on his or her back to sleep, use a firm sleep surface and your baby should not sleep in an adult bed, on a couch or chair. Keep soft objects, toys and loose bedding out of your baby's sleep area. Reviewed depression. It is common to have blues. This is a normal response to many of the hormonal changes, stress and lack of sleep that go with raising a and physically recovering from the . Don't hesitate to talk to your provider with any concerns. There are resources in your home going booklet. To help prevent germs from spreading to you and your baby, make sure everyone washes their hands before they handle your . Avoid crowds, and keep away from sick people, anyone who is sick with a cough or fever, including family members. Post- warning signs information reviewed with patient per nurse with discharge Additional Information: Patient is independent and has insurance. She is prepared with her baby supplies. To be discharged to home. Denies any concerns at this time. Mental Health Services: Resources in discharge folder Equipment: Developmental Delay: N/A Children's Services: N/A Normal [facility] Laboratory - Chemistry and C hemistry - challengeon 05-09-2023 Glucose [Mass/Vol] 156 mg/dL High 70 - 100 mg/dL [facility] Glucose [Mass/Vol] 134 mg/dL High 70 - 100 mg/dL [facility] [employer] No Panel Informationon 05-09 Interpretation and review of laboratory results Abnormal [facility] [employer] Performed by: [place] [employer] [facility], [address] [place] [id number] CLIA ID: [id number] [facility] [employer] Interpretation and review of laboratory results Abnormal [facility] [employer] Performed by: [facility] [employer] [facility], [address] [place] [id number] CLIA ID: [id number] [facility] Op Noteon 05-09-2023 Op Note Operative N ote Patient: Ambika Brown : 1990 Date of Procedure: 05/09/23 Principal Problem: 37 weeks gestation of PREOPERATIVE DIAGNOSES: 1. at 37w6d 2. PCD Cat II inability to augment 3. SIPEwoSF 4. GDMA2 5. Obesity 6. PVCs/Palpitations/Interm ittent SVT/Syncopal Episode 7. Asthma 8. Hypothyroidism 9. Migraines 10 HOSEA 11. Anxiety POSTOPERATIVE DIAGNOSES: 1. Same 2. Living Infant, male PROCEDURE: Primary low transverse section SURGEON: Dr. Smith ASST: Dr. Sorto ANESTHESIA: epidural ANTIBIOTIC(S): 3g Ancef, 500mg Ancef VAG PREP (Iodine): Yes FINDINGS: Normal appearing uterus, ovaries and fallopian tubes 2cm fibroid, possible velamentous cord insertion FLUIDS: 1700 ml crystalloids URINE: 1000 ml EBL: 900 ml QBL: DRAINS: mijares catheter SPECIMENS: none COMPLICATIONS: None CONDITION: good, transferred to : post anesthesia recovery FINDINGS: Live male , occiput anterior APGARS 1 min: 8 5 min: 9 Weight: 2925 grams Tubes and ovaries: within normal limits. Description: normal INDICATION FOR PROCEDURE Patient admitted to Labor and Delivery for IOL-SIPEwoSF, GDMA2. Patient was consented for a section and was agreeable to blood products as medically indicated. This was a un scheduled non-emergent section. DETAILS OF PROCEDURE: Patient was brought into the operating room and she was placed in the supine position slightly tilted to the left. The abdomen was prepped and draped in the usual manner. Anesthesia level was checked and was found to be adequate. The abdomen was entered through a pfannenstiel incision. The incision was carried through the subcutaneous tissue to the fascia which was nicked in the midline and carried transversely using butler scissors. Kochers were used to grasp the edges of the fascia and sharp and blunt dissection used to reflect the underlying rectus abdominis muscles. The muscles were in the midline bluntly and sharply exposing the parietal peritoneum. The peritoneum was entered bluntly. The peritoneal incision was extended bluntly with good visualization of bladder. Bladder retractor was placed as well as Broderick retractor. Bladder flap was made: No The lower uterine segment was opened in a low transverse incision with a scalpel. The amniotic cavity was entered and Clear amniotic fluid was noted. Bladder retractor and Broderick retractor were removed, and baby was delivered from the cephalic presentation with fundal pressure without difficulty.The baby was handed over to the nursery personnel standing by.. Placenta was extracted intact with gentle traction. The uterus was exteriorized and wrapped in a wet lap. The uterine cavity was swept and cleared of all clots and debris using a dry lap. The uterine incision was closed using a continuous locked suture of 0 monocryl. A second layer was performed. Hemostasis was ensured. The uterus was replaced in the abdomen. Hemostasis of the operative field was ensured and the gutters were cleared of all clots and debris. The rectus muscles were plicated in the midline with 3-0 monocryl Fascia was closed with 1 PDS in a running fashion. Subcutaneous closure was performed with 3-0 Monocryl Hemostasis was ensured. Skin closure was performed with 4-0 monocryl suture. Dermabond applied over incision. Sponge, needle and instrument counts were correct twice. Patient was transferred to the recovery room in satisfactory stable condition. Leora Sorto MD 05/09/2023 3:02 AM LABOR DELIVERY ??? SCD's ONLY (labor through ambulation) SCD's PLUS Prophylactic Anticoagulation until discharge SCD's PLUS Prophylactic Anticoagulation for 6 weeks SCD's PLUS Therapeutic Anticoagulation for 6 weeks Vaginal Delivery [] BMI ? 40 kg/m2 Delivery All patients Vaginal Delivery [] BMI ? 40 kg/m2 AND [] Antepartum hospitalization ? 72 hours within the past month Delivery 1 Major Risk Factor: [x] BMI ? 35 kg/m2 [] Low Risk Thrombophilia [] PPH+RBCs, IR, or operation [] Infection+Antibiotics [] Antepartum hospitalization ? 72 hours within the past month [] PMH: Sickle Cell, SLE, Cardiac Dz, Active IBD, Active Cancer, Nephrotic Syndrome OR 2 Minor Risk Factors: [] Multiple gestation [] Age > 40 [] PPH ? 1,000cc [] (+)FMH of VTE [] Smoker [] Preeclampsia [] BMI ? 40 kg/m2 AND [] Low Risk Thrombophilia OR ANY OF THE FOLLOWING: [x] High Risk Thrombophilia without prior VTE [] Low Risk Thrombophilia with (+)FMH of VTE [] Any single prior VTE ANY OF THE FOLLOWING: [x] Already on LMWH/UFH [] Multiple prior VTE [] High Risk Thrombophilia with prior VTE Low Risk Thrombophilia: FVL (heterozygous), Prothrombin (heterozygous), Protein C, Protein S High Risk Thrombophilia: FVL (homozygous), Prothrombin (homozygous), F (more content not included)... [facility] Peripheral Blockon 3 MARIA FERNANDA Vela CRNA 05/09/2023 2:34 AM Peripheral Block Time Out: 05/09/2023 2:28 AM Patient location during procedure: Procedural Start time: 05/09/2023 2:29 AM End time: 05/09/2023 2:32 AM Reason for block: at surgeon's request and post-op pain management Staffing Performed: CIVIL ENGINEERING PROFESSIONAL Resident/CIVIL ENGINEERING PROFESSIONAL: Gabriel Mehta APRN - CIVIL ENGINEERING PROFESSIONAL Preanesthetic Checklist Completed: patient identified, IV checked, site marked, risks and benefits discussed, surgical consent, monitors and equipment checked, pre-op evaluation and timeout performed Region: [place] Primary: TAP (60ml of Bupivacaine 0.375% with dexamethasone 0.01% with epinephrine 1:200,000 divided evenly bilaterally) Peripheral Block Patient position: supine Prep: ChloraPrep Patient monitoring: heart rate, 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 Needle Needle: 21G X 110 mm Additional Notes 05/09/2023 2:29 AM Assessment Injection assessment: negative aspiration for heme, no paresthesia on injection, incremental injection and local visualized surrounding nerve on ultrasound Paresthesia pain: none Heart rate change: no Slow fractionated injection: yes Required Documentation: Relevant anatomy identified (Nerves, Vessels, Muscles), Negative for blood on aspiration, Local anesthetic injected incrementally with intermittent aspiration every 5 mL, No EKG changes noted, No symptoms of toxicity, Local anesthetic spread visualized around nerves or plane., Normal resistance with injection, No paresthesias reported by patient during injection and Local anesthetic injected without difficultyMedications dexAMETHasone-bupivacain e-epinephrine (TAP) syringe - Injection 60 mL - 05/09/2023 2:31:00 AM [facility] Progress Noteon 05-09-2023 Progress Note Nutrition rescreen completed. Chart reviewed. Patient to be monitored and followed by the diet perinatal technician. RADHA Hope [facility] Progress Note Since pt has arrived to the unit at 0450 she has felt nauseous, hot and exhausted. RN helping pt manage symptoms. Pt had Zofran at 0140, pt has a ice pack and a fan on her, no blankets. RN trying to let the pt rest. Pt wants to breastfeed infant. Infant is on the blood sugar policy and is due to eat. RN assisting pt with at this time. Pt is falling asleep while . Pt states she just does not feel good. RN suggested to pt we can supplement with formula this time via spoon, cup or syringe until she is feeling better. Pt expresses concern that she really wants to breastfeed this time. RN assisting to the football hold position. RN assisting to help latch. Infant will get to breast and suck 3-4 sucks and then unlatch and repeat. RN is referring to for further assistance. [facility] Progress Note RN secure messaged Resident phyisicans. Per Dr. Sorto, RN is to get a AM fasting blood sugar this morning and the Hemoglobin blood work will be drawn tomorrow morning at 0600. [facility] Progress Note Safety Huddle Patient admitted for IOL-SIPEwoSF, GDMA2. Plan to proceed with a primary section for Cat II FHT. Risks and benefits discussed with the patient including the risk of injury to surrounding structures, bleeding and infection. Patient amendable to receiving blood products if medically indicated. Consent form signed. Safety Huddle performed with Attending provider, OB recharger, OB anesthesia, resident team and primary RN. All in agreement for PCD-Cat II FHT. Patient will be for 3g ancef and azithromycin. Epidural in place and will be redosed. This will be an unscheduled non-emergent primary section. [facility] Epidural Blockon 05-08-2023 MARIA FERNANDA Bauer CRNA 05/08/2023 10:09 PM Epidural Block Time Out: 05/08/2023 9:46 PM Patient location during procedure: OB Start time: 05/08/2023 9:46 PM End time: 05/08/2023 10:00 PM Reason for block: labor analgesia Staffing Performed: YOVANI Resident/CIVIL ENGINEERING PROFESSIONAL: MARIA FERNANDA Bauer CRNA Performed by: MARIA FERNANDA Bauer CRNA Authorized by: MARIA FERNANDA Bauer CRNA Preanesthetic Checklist Completed: patient identified, IV checked, site marked, risks and benefits discussed, surgical consent, monitors and equipment checked, pre-op evaluation, timeout performed, IV bolus and anesthesia consent given Block Placement Patient position: sitting Prep: ChloraPrep Sterility prep: drape, gloves, cap, hand and mask Sedation level: no sedation Patient monitoring: heart rate Approach: midline Location: lumbar Lumbar location: L3-L4 Epidural Loss of resistance technique: saline Guidance: landmark technique Needle Needle type: Luz Needle gauge: 17 G Needle length: 9 cm Needle insertion depth: 9 cm Catheter type: multi-orifice Catheter size: 19 G Catheter at skin depth: 15 cm Catheter securement method: surgical tape, liquid medical adhesive and clear occlusive dressing Test dose: negative Medications Administered lidocaine-EPINEPHrine (Xylocaine W/EPI) 1.5 %-1:[id number] injection - Epidural 3 mL - 05/08/2023 9:54:00 PM Assessment Block outcome: pain improved Number of attempts: 1 Procedure assessment: patient tolerated procedure well with no immediate complications [facility] Laboratory - Chemistry and C hemistry - challengeon 05-08-2023 Glucose [Mass/Vol] 100 mg/dL 70 - 100 mg/dL [facility] Glucose [Mass/Vol] 91 mg/dL 70 - 100 mg/dL [facility] Glucose [Mass/Vol] 85 mg/dL 70 - 100 mg/dL [facility] Glucose [Mass/Vol] 99 mg/dL 70 - 100 mg/dL [facility] Glucose [Mass/Vol] 108 mg/dL High 70 - 100 mg/dL [facility] Glucose [Mass/Vol] 107 mg/dL High 70 - 100 mg/dL [facility] No Panel Informationon 05-08 Interpretation and review of laboratory results Normal [facility] Performed by: [facility] [facility], [address] [place], [place] [id number] CLIA ID: [id number] [facility] [employer] [facility] Interpretation and review of laboratory results Normal [facility] Performed by: [facility] [employer] [facility], [address] [place] [id number] CLIA ID: [id number] [facility] Interpretation and review of laboratory results Normal [facility] Performed by: [facility], [address] [place] [id number] CLIA ID: [id number] [facility] Interpretation and review of laboratory results Normal [facility] Performed by: [facility] [facility], [address] [place] [id number] CLIA ID: [id number] [facility] Interpretation and review of laboratory results Abnormal [facility] Performed by: [facility] [employer] [facility], [address] [place] [id number] CLIA ID: [id number] [facility] Interpretation and review of laboratory results Abnormal [facility] Performed by: Cara Serrano [facility], [address] [place] [id number] CLIA ID: [id number] [facility] Blood type and Crossmatch pa rodrigo (Bld)on 05-07-2023 ABO group Nom (Bld) O [facility] Blood group antibody screen GEL Ql Negative [facility] D Ag Ql (RBC) Positive [facility] CBC panel Auto (Bld)Ordered By: Marian Muniz on 05-07-2023 Erythrocyte distribution width (RBC) [Ratio] 15.9 % High 11.5 - 14.5 % [facility] Hematocrit (Bld) [Volume fraction] 35.2 % 35.0 - 47.0 % [facility] Hemoglobin (Bld) [Mass/Vol] 11.5 g/dL Low 11.7 - 16.0 g/dL [facility] Interpretation and review of laboratory results Abnormal [facility] MCH (RBC) [Entitic mass] 25.7 pg Low 26.0 - 34.0 pg [facility] MCHC (RBC) [Mass/Vol] 32.8 % 32.0 - 36.0 % [facility] MCV (RBC) [Entitic vol] 78.4 fL Low 80.0 - 98.0 fL [facility] Platelet mean volume (Bld) [Entitic vol] 9.6 fL 7.4 - 12.4 fL [facility] Platelets (Bld) [#/Vol] 211 10*3/uL 140 - 440 10*3/uL [facility] RBC (Bld) [#/Vol] 4.48 10*6/uL 3.8 - 5.20 10*6/uL [facility] WBC (Bld) [#/Vol] 15.5 10*3/uL High 3.6 - 10.7 10*3/uL [facility] Comprehensive metabolic 1998 panelon 05-07-2023 Albumin [Mass/Vol] 3.8 g/dL 3.5 - 5.0 g/dL [facility] ALP [Catalytic activity/Vol] 169 U/L High 38 - 126 U/L [facility] ALT [Catalytic activity/Vol] 31 U/L 0 - 34 U/L [facility] Anion gap [Moles/Vol] 12 mmol/L 3 - 13 mmol/L [facility] AST [Catalytic activity/Vol] 28 U/L 15 - 46 U/L [facility] Bilirubin [Mass/Vol] 0.3 mg/dL 0.2 - 1 .3 mg/dL [facility] Calcium [Mass/Vol] 9.1 mg/dL 8.4 - 10. 4 mg/dL [facility] Chloride [Moles/Vol] 106 mmol/L 98 - 10 7 mmol/L [facility] CO2 [Moles/Vol] 20 mmol/L Low 22 - 30 mmol/L [facility] Creatinine [Mass/Vol] 0.54 mg/dL 0.52 - 1.04 mg/dL [facility] GFR/1.73 sq M.predicted MDRD (S/P/Bld) [Vol rate/Area] - PINF [facility] Comment on above: Calculation based on the Chronic Kidney Disease Epidemiology Collaboration (CKD-EPI) equation refit without adjustment for race Glucose [Mass/Vol] 113 mg/dL High 70 - 100 mg/dL [facility] Interpretation and review of laboratory results Abnormal [facility] Potassium [Moles/Vol] 3.8 mmol/L 3.5 - 5.1 mmol/L [facility] Protein [Mass/Vol] 7.1 g/dL 6.3 - 8.2 g/dL [facility] Sodium [Moles/Vol] 137 mmol/L 135 - 145 mmol/L [facility] Urea nitrogen [Mass/Vol] 10 mg/dL 7 - 17 mg/dL [facility] - Chemistry and C hemistry - challengeon 05-07-2023 Glucose [Mass/Vol] 112 mg/dL High 70 - 100 mg/dL [facility] Glucose [Mass/Vol] 113 mg/dL High 70 - 100 mg/dL [facility] No Panel Informationon 05-07 Interpretation and review of laboratory results Abnormal [facility] Performed by: [facility], [address] [place] [address] CLIA ID: [id number] [facility] Interpretation and review of laboratory results Abnormal [facility] Performed by: [facility], [address] [place] [address] CLIA ID: [id number] [facility] Progress Noteon 04-30-2023 Automotive Maintenance Technician Authentication Interface Message Text Visit Subjective: Ambika Brown is being seen today for an obstetrical visit. She is at 36w4d gestation. Her obstetrical history is significant for Recurrent loss- Antiphospholipid antibody syndrome with +Lupus anticoagulant Hx Pre-diabetes CHTN BMI >50 Chronic migraines HOSEA on CPAP Hypothyroidism Intermittent SVT and syncope with loop recorder in place history fully reviewed. Anxiety Vit D deficiency. history fully reviewed.. history fully reviewed. She is unaccompanied. Signs and Symptoms of Labor Ambika presents with no labor symptoms. Movement Ambika reports normal movement. Vaginal Bleeding During Ambika denies any vaginal bleeding at this time. Vaginal DischargeAmanda denies any unusual or increase in vaginal discharge. Rupture of Membranes/Leaking Fluid The patient denies any leaking of fluid at this time. Signs and Symptoms of Preeclampsia Ambika is presenting with no preeclampsia symptoms. Pain Scale Ambika denies any signs or symptoms of pain. Gestational Diabetes Ambika presents today for her private visit. She has GDMA2 diabetes. Readings are as follows: reports increased FBS and now 1hr pp- will send log.. Review of Systems All other systems reviewed and are negative. Objective: BP 124/82 Pulse 85 Resp 18 Wt (!) 154.2 kg (340 lb) SpO2 98% BMI 53.25 kg/m Denies any urinary sx Physical Exam Vitals reviewed. Constitutional: Appearance: She is well-developed. HENT: Head: Atraumatic. Pulmonary: Effort: Pulmonary effort is normal. Abdominal: Comments: gravid Neurological: Mental Status: She is alert and oriented to person, place, and time. Psychiatric: Mood and Affect: Mood and affect normal. Behavior: Behavior normal. Thought Content: Thought content normal. Judgment: Judgment normal. FHT: Positive Growth ultrasound today- see full report in imaging Assessment/Plan: Ambika Brown is a 33 y.o. at 36w4d with: Active Non-Hospital Problems Diagnosis Date Noted Gestational diabetes mellitus (GDM) in third trimester controlled on oral hypoglycemic drug 03/05/2023 Priority: High 04/09: Glucose log reviewed. FBS elevated 92-106. Metformin 2000mg at HS. Assuring HS snack 04/16: fasting elevated. NPH 6 units at HS. Due to GI distress, Metformin 1000 mg q AM and at HS. 04/26 All FBS elevated 125-135. Wt based insulin recalculated. Will increase NPH 12 units@HS(reduced with outpt use). Metformin 100mg q am and at HS. 04/30 Pt did not bring log but states FBS 120-140 and pp some up to 170. Will send log as soon as she gets home Discussed starting log with meals. Instructed on mixing. Will determine dosing based upon log review. Reviewed on 04/30/2023 Reviewed on 04/23/2023 Supervision of other high risk pregnancies, third trimester 10/06/2022 Priority: High PLAN OF CARE MD/OB APPOINTMENTS Genetic screening: see GC notes, unable to obtain NT How often should patient be evaluated? Monthly to 28 weeks, q 2 weeks from 28 to 36 weeks then weekly until delivery Work restrictions: NA EVALUATION surveillance: BPP twice weekly at 32 weeks Ultrasound: anatomy, growth every 4 weeks DELIVERY PLAN Hospital: [facility] Induction at 37 weeks (CHTN, hx)- pt would like to meet with (04/16) Cytotec IOL 8 pm 05/07/23 GBS culture: 04/16/2023 negative Contraception: condoms/spermicide : planning consult complete Baby boy: Jorge Luis Reviewed on 04/30/2023 Pre-existing hypertension with pre-eclampsia in third trimester Priority: High CHTN- was on Metoprolol but stopped taking 10/05/21 BP cuff ordered. Instructed on BID BP check. Parameters to notify office 140/90 or greater. PEC labs ordered-Normal UPCR 0.15 Currently taking BASA -Monitor Bps at home. -Start meds for persistent HTN >140/90 -Beta blockade preferred to procardia given h/o SVT and ectopy -Serial growth every 4 weeks - testing at 32 weeks (once or twice weekly pending course). -Delivery by 38 weeks unless indicated sooner. 12/05: Pt met with [facility] today- BP elevate in office, they will defer to MFM for management. Plans f/u PP. Rx sent for labetalol 100 mg BID. Pt to check BP at home and report next week for med adjustment if needed. Will plan for in office appt in 2 weeks for review. Precautions reviewed with pt, encouraged to call with any concerns. 12/18/22: just started Labetalol 100mg BID 12/16/22 BP 134/86. Pt will track BP BID at home and report 140/90 or greater 12/26: pt recently in triage with concerns for elevated BP at home, BP WNL in triage. PC ratio 0.47 in triage. Labetalol dose adjusted to 200 mg TID. BP stable today in office. BP correlated with home cuff and readings not similar. Pt to return home cuff. Precautions reviewed with pt and encouraged pt to take BP a (more content not included)... Normal [facility] Progress Noteon 04-25-2023 Progress Note ---- -------- Attestation signed by Karla Bryant DO at 04/25/2023 11:37 PM Hospital Care (Independent): I independently saw and evaluated the patient. I agree with the findings and plan of care as documented in the resident's note. -------- Department of Obstetrics and Gynecology Labor and Delivery Triage Note CHIEF COMPLAINT: Decreased movement HISTORY OF PRESENT ILLNESS: The patient is a 33 y.o. 35w6d. OB History 6 Para 0 Term AB 5 Living 0 SAB IAB Ectopic Multiple Live Births Patient presents with a chief complaint as above. States baby was not as active this morning as usual. Feeling baby move more at this time since presenting to triage. Denies VB/LOF/CTX Estimated Due Date: Estimated Date of Delivery: 05/24/23 PAST MEDICAL HISTORY: Past Medical History: Diagnosis Date Asthma GERD (gastroesophageal reflux disease) Infertility, female Joint pain b/l knees, b/l ankles Lupus anticoagulant affecting in second trimester, antepartum (HCC) Migraines Obesity Sinus tachycardia PAST SURGICAL HISTORY: Past Surgical History: Procedure Laterality Date CHOLECYSTECTOMY CVHX IMPLANTABLE LOOP RECORDER SYSTEM 08/23/2022 TONSILLECTOMY (HISTORICAL) WISDOM TOOTH EXTRACTION SOCIAL HISTORY: reports that she has never smoked. She has never used smokeless tobacco. She reports that she does not drink alcohol and does not use drugs. MEDICATIONS: Prior to Admission medications Medication Sig Start Date End Date Taking? Authorizing Provider ascorbic acid (Vitamin C) 500 MG tablet Take 500 mg by mouth 2 times daily. Historical Provider, aspirin 81 MG EC tablet Take 162 mg by mouth daily. Historical Provider, cholecalciferol (Vitamin D3) 200 Unit tablet split tablet Take by mouth. Historical Provider, enoxaparin (Lovenox) 40 MG/0.4ML solution prefilled syringe Inject 40 mg under the skin daily. Historical Provider, famotidine (Pepcid) 10 MG tablet Take 20 mg by mouth Nightly. Historical Provider, labetalol (Normodyne) 200 MG tablet Take 1 tablet (200 mg) by mouth 3 times daily. 12/24/22 06/22/23 Shahnaz Hahn DO levothyroxine (Synthroid, Levoxyl) 50 MCG tablet Take 50 mcg by mouth every morning (before breakfast). Historical Provider, magnesium oxide (Mag-Ox) 400 (240 Mg) MG tablet Take 1 tablet (400 mg) by mouth daily. Do not start before December 30, 2022. 12/30/22 Shaw Del Angel MD metFORMIN (Glucophage) 500 MG tablet Take 1,500 mg by mouth Once. Historical ProviderMD EG-Bko-SN-[place]-3 ( GUMMIES/DHA & FA PO) Take 2 tablets by mouth daily. Historical ProviderMD sodium chloride 0.9 % nebulizer solution with albuterol (5 MG/ML) 0.5% nebulizer solution 0.9 mg/mL Inhale 2 puffs 4 times daily as needed. Historical ProviderMD REVIEW OF SYSTEMS: Pertinent items are noted in HPI. APPEARANCE: Pain: No PHYSICAL EXAM: Vital Signs: VS wnl-reviewed/Respiration s normal effort Vitals: 08/16/23 1208 BP: 128/70 Pulse: 84 Resp: 16 Temp: 36.7 ?C (98 ?F) TempSrc: Oral SpO2: 98% Weight: (!) 330 lb (150 kg) Height: 5' 7 (1.702 m) Abdomen: soft, NT, ND, no rebound/guarding Uterus: gravid/non-tender LE Edema: trace Speculum Exam: defer heart rate: Category I Cervix: defer Contraction frequency: none Membranes: Intact RESULTS: NST: Reactive Procedures GENERAL LABS: No results found for this or any previous visit (from the past 24 hour(s)). TRIAGE COURSE: Presented for DFM. BSUS showed vertex presentation and movements. NST is reactive. Patient reassured and agreeable to be discharged home. Provided patient with document on kick counting. Return precautions given. IMPRESSION: Decreased Movement Pain assessment and plan: None DISCUSSED WITH PNC PROVIDER: Dr. Bryant DISPOSITION: Discharge to Home [facility] Progress Noteon 04-23-2023 Automotive Maintenance Technician Authentication Interface Message Text Visit Subjective: Ambika Brown is being seen today for an obstetrical visit. She is at 35w4d gestation. Her obstetrical history is significant for Recurrent loss- Antiphospholipid antibody syndrome with +Lupus anticoagulant Hx Pre-diabetes CHTN BMI >50 Chronic migraines HOSEA on CPAP Hypothyroidism Intermittent SVT and syncope with loop recorder in place history fully reviewed. Anxiety Vit D deficiency. history fully reviewed. She is unaccompanied. Gestational Diabetes Ambika presents today for her private visit. She has GDMA2 diabetes. The disease course is fluctuating. Her symptom course is compliant. She is compliant with treatment most of the time. Blood glucose readings reviewed. Readings are as follows: all FBS elevated 125-135. Just started insulin at HS 04/20/23. Signs and Symptoms of Labor Ambika presents with no labor symptoms. Movement Ambika reports normal movement. Vaginal Bleeding During Ambika denies any vaginal bleeding at this time. Vaginal DischargeAmanda denies any unusual or increase in vaginal discharge. Rupture of Membranes/Leaking Fluid The patient denies any leaking of fluid at this time. Signs and Symptoms of Preeclampsia Ambika is presenting with no preeclampsia symptoms. Pain Scale Ambika denies any signs or symptoms of pain. Review of Systems Genitourinary: Occasional increase in contractions when out walking. Resolve with rest Neurological: Positive for headaches (few more headaches but BP <140/90 and resolve with tylenol). All other systems reviewed and are negative. Objective: BP 132/82 Pulse 84 Resp 18 Wt (!) 153.3 kg (338 lb) SpO2 98% BMI 52.94 kg/m Physical Exam Vitals reviewed. Constitutional: Appearance: She is well-developed and well-nourished. Pulmonary: Effort: Pulmonary effort is normal. Abdominal: Comments: gravid Neurological: Mental Status: She is alert and oriented to person, place, and time. Psychiatric: Mood and Affect: Mood and affect normal. Behavior: Behavior normal. Thought Content: Thought content normal. Judgment: Judgment normal. FHT: 119 Presentation: Cephalic BPP 04/17 with normal JACOB-see full report in imaging Assessment/Plan: Ambika Brown is a 33 y.o. at 35w4d with: Active Non-Hospital Problems Diagnosis Date Noted Gestational diabetes mellitus (GDM) in third trimester controlled on oral hypoglycemic drug 03/05/2023 Priority: High 04/09: Glucose log reviewed. FBS elevated 92-106. Metformin 2000mg at HS. Assuring HS snack 04/16: fasting elevated. NPH 6 units at HS. Due to GI distress, Metformin 1000 mg q AM and at HS. 04/26 All FBS elevated 125-135. Wt based insulin recalculated. Will increase NPH 12 units@HS(reduced with outpt use). Metformin 100mg q am and at HS. Reviewed on 04/23/2023 Supervision of other high risk pregnancies, third trimester 10/06/2022 Priority: High PLAN OF CARE MD/OB APPOINTMENTS Genetic screening: see GC notes, unable to obtain NT How often should patient be evaluated? Monthly to 28 weeks, q 2 weeks from 28 to 36 weeks then weekly until delivery Work restrictions: NA EVALUATION surveillance: BPP twice weekly at 32 weeks Ultrasound: anatomy, growth every 4 weeks DELIVERY PLAN Hospital: [facility] Induction at 37 weeks (CHTN, hx)- pt would like to meet with (04/16) Cytotec IOL 8 pm 05/07/23 GBS culture: 04/16/2023 negative Contraception: condoms/spermicide : planning consult complete Baby boy: Jorge Luis Reviewed on 04/23/2023 Pre-existing hypertension with pre-eclampsia in third trimester Priority: High CHTN- was on Metoprolol but stopped taking 10/05/21 BP cuff ordered. Instructed on BID BP check. Parameters to notify office 140/90 or greater. PEC labs ordered-Normal UPCR 0.15 Currently taking BASA -Monitor Bps at home. -Start meds for persistent HTN >140/90 -Beta blockade preferred to procardia given h/o SVT and ectopy -Serial growth every 4 weeks - testing at 32 weeks (once or twice weekly pending course). -Delivery by 38 weeks unless indicated sooner. 12/05: Pt met with [facility] today- BP elevate in office, they will defer to MFM for management. Plans f/u PP. Rx sent for labetalol 100 mg BID. Pt to check BP at home and report next week for med adjustment if needed. Will plan for in office appt in 2 weeks for review. Precautions reviewed with pt, encouraged to call with any concerns. 12/18/22: just started Labetalol 100mg BID 12/16/22 BP 134/86. Pt will track BP BID at home and report 140/90 or greater 12/26: pt recently in triage with concerns for elevated BP at home, BP WNL in triage. PC ratio 0.47 in triage. Labetalol dose adjusted to 200 mg TID. BP stable today in office. BP correlated with home cuff and readings not similar. Pt to return home cu (more content not included)... Normal [facility] Group B Strep Cultureon S. agalactiae Ag Ql (Unsp spec) Release to patient->Automatic [id number]&Rectal swab^^^Vaginal/Rectal&Va ginal/Rectal No PCN allergy noted Group B Strep Culture: No Group B Streptococci isolated. Source: RECTW Collected: 04/16/23 13:40 Site: Vaginal/Rectal Received : 04/16/23 15:41 Group B Strep Culture FINAL 04/19/23 07:59 No Group B Streptococci isolated. Normal [facility] Comment on above: Performed By: #### [facility] ####[address] [id number] No Panel Informationon 04-16 External Strep Group B Ag Negative Negative [email or web address] Comment on above: per pts mychart. vis ualized by Nancy Chandler RN [email or web address] Progress Noteon 04-16-2023 Automotive Maintenance Technician Authentication Interface Message Text VISIT Accompanying person: Spouse SUBJECTIVE: Ambika Brown is a 33 y.o., at 34w4d. Patient's is significant for: Recurrent loss- Antiphospholipid antibody syndrome with +Lupus anticoagulant Hx Pre-diabetes SIPEwoSF BMI >50 Chronic migraines HOSEA on CPAP Hypothyroidism Intermittent SVT and syncope with loop recorder in place Anxiety Vit D deficiency. movement: Yes Vaginal bleeding: No Loss of fluid: No Contractions: [place] Taking vitamin: Yes OBJECTIVE: VITAL SIGNS: BP 131/79 Pulse 97 Resp 18 Wt (!) 151.9 kg (334 lb 12.8 oz) SpO2 97% BMI 52.44 kg/m GEN: NAD. MMM. A/O x3. ABD: Gravid. Soft, nontender to palpation FUND HT: -- cm FHR: 120s [per US] bpm SSE: -- CERVIX: 0/25/+5, soft posterior. ASSESSMENT/ PLAN: 33 y.o. at 34w4d with Active Non-Hospital Problems Diagnosis Date Noted Gestational diabetes mellitus (GDM) in third trimester controlled on oral hypoglycemic drug 03/05/2023 03/05/23 Pattern testing with elevated FBS 100%- pt would prefer metformin as previously discussed Metformin 500 mg to be initiated at HS, pt to send log in 1 week for review 04/09: Glucose log reviewed. FBS elevated 92-106. Metformin 2000mg at HS. Assuring HS snack 04/16: fasting elevated. NPH 6 units at HS. Due to GI distress, Metformin 1000 mg q AM and at HS. Reviewed on 04/16/2023 Abnormal glucose tolerance test in 02/06/2023 1 elevated value (FBS) on 3 hour GTT. Nutrition scheduled 02/20 Instructed on pattern testing- pt was on vacation so had not pattern tested. 02/19: Instructed to start testing at this time. Meeting with Nutrition tele tomorrow. Pt will send log for review in 1 week. Discussed possible med management with pt if needed. Reviewed metformin vs insulin management, risk/benefits. Pt would prefer to try metformin to start as she has used in the past, pt would also like to avoid more needle sticks if able as she is already using Lovenox. 03/05 pattern testing reviewed, GDM -see GDM problem Vitamin D deficiency 11/06/2022 Vit D 19 on 10/06 Rec Vit D3 1000-2000IU daily- taking Plan repeat in 3 months- 02/01 WNL 04/03 WNL-continue 2000 international units daily Reviewed on 04/09/2023 Disease of respiratory system affecting in third trimester 10/06/2022 Asthma Nervous system disease affecting in third trimester, antepartum 10/06/2022 migraines Supervision of other high risk pregnancies, third trimester 10/06/2022 PLAN OF CARE MD/OB APPOINTMENTS Genetic screening: see GC notes, unable to obtain NT How often should patient be evaluated? Monthly to 28 weeks, q 2 weeks from 28 to 36 weeks then weekly until delivery Work restrictions: NA EVALUATION surveillance: BPP twice weekly at 32 weeks Ultrasound: anatomy, growth every 4 weeks DELIVERY PLAN Hospital: [facility] Induction at 37 weeks (CHTN, hx)- pt would like to meet with (04/16) GBS culture: 04/16/2023 pending Contraception: condoms/spermicide : planning consult complete Baby boy: Jorge Luis Reviewed on 04/09/2023 Uncomplicated asthma Has inhaler for prn use No recent exacerbations Reviewed on 04/09/2023 Pre-existing hypertension with pre-eclampsia in third trimester CHTN- was on Metoprolol but stopped taking 10/05/21 BP cuff ordered. Instructed on BID BP check. Parameters to notify office 140/90 or greater. PEC labs ordered-Normal UPCR 0.15 Currently taking BASA -Monitor Bps at home. -Start meds for persistent HTN >140/90 -Beta blockade preferred to procardia given h/o SVT and ectopy -Serial growth every 4 weeks - testing at 32 weeks (once or twice weekly pending course). -Delivery by 38 weeks unless indicated sooner. 12/05: Pt met with [facility] today- BP elevate in office, they will defer to MFM for management. Plans f/u PP. Rx sent for labetalol 100 mg BID. Pt to check BP at home and report next week for med adjustment if needed. Will plan for in office appt in 2 weeks for review. Precautions reviewed with pt, encouraged to call with any concerns. 12/18/22: just started Labetalol 100mg BID 12/16/22 BP 134/86. Pt will track BP BID at home and report 140/90 or greater 12/26: pt recently in triage with concerns for elevated BP at home, BP WNL in triage. PC ratio 0.47 in triage. Labetalol dose adjusted to 200 mg TID. BP stable today in office. BP correlated with home cuff and readings not similar. Pt to return home cuff. Precautions reviewed with pt and encouraged pt to take BP at drug store until new cuff received. Will correlate new cuff at future appt. 04/09: BP stable on Labetalol 200 mg TID at this time. Precautions reviewed, continue to monitor 04/16: BP stable on Labetalol 200 mg TID at this time. Precautions reviewed, continue to monitor. Reviewed on 04/16/2023 Maternal cardiovascul (more content not included)... Normal [facility] 04-11-2023 [facility] Telephone (DMFMER) -------- AMBIKA BROWN ([id number]) 1990 F T Date Time Provider Department 04/11/23 ZULMA MAYERS [facility] During your visit today, we recorded the following information about you: Zulma Mayers DDS 04/11/2023 6:41 PM Signed Spoke to patient about her thoughts on moving her RCT obturation appointment to after she delivers her baby. Patient states that she is doing much better and she never feels anything on the tooth unless she grinds her teeth very hard. Due to the fact that we would be obturating the tooth, would need additional radiographs, and additional local anesthetic, we would rather not expose the patient to additional radiation, medicaments, and stress while in a high risk . Patient is no longer an urgent pain patient, she is stable. Pulpectomy is covered by glass ionomer and out of occlusion. Patient would like to be scheduled sometime in May. She states that she will be having her baby towards the end of April. She was relieved to know that she did not have to come in today. We made the above decision based on risk/benefit with Dr. Fields and the patient. The patient agreed to all of the above. Told the patient to call if any changes occur. Zulma Mayers DDS Allergies As of Date: 04/11/2023 Noted Allergy Reaction PROCHLORPERAZINE 12/02/2018 14 - Other: See Comments Comments: Compazine DIPHENHYDRAMINE 10/05/2022 14 - Other: See Comments Date Reviewed: 04/05/2023 Reviewed by: Breanna Nguyen Dent-A - Fully Assessed Reason for Visit: Patient Update [1234] Prescriptions as of 04/11/2023 - labetalol (TRANDATE) 200 mg tablet Take 200 mg by mouth three times daily. - levothyroxine (SYNTHROID) 50 mcg tablet Take 50 mcg by mouth every morning. Take On an Empty Stomach - enoxaparin (LOVENOX) 30 mg/0.3 mL injection Inject 1.502 mL subcutaneously once daily. - ondansetron (ZOFRAN) 8 mg tablet FOR NAUSEA. Take on at onset of nausea or migraine,may repeat dose in 8 hours if needed. - famotidine (PEPCID) 40 mg tablet Take 40 mg by mouth once daily. - aspirin, enteric coated (ASPIRIN, ENTERIC COATED) 81 mg EC tablet Take 81 mg by mouth daily at bedtime. - promethazine (PHENERGAN) 25 mg tablet 1/2 to 1 po q8h prn headache or nausea - cholecalciferol, vitamin D3, (VITAMIN D3 ORAL) Take by mouth. - folic acid 400 mcg tablet Take 400 mcg by mouth daily at bedtime. - PNV/FERROUS SULFATE/FOLIC ACID ( MULTIVIT WITH IRON ORAL) Take by mouth daily at bedtime. - Ascorbic Acid chew Take 500 mg by mouth daily at bedtime. - albuterol HFA (PROVENTIL HFA, VENTOLIN HFA) 90 mcg/actuation inhaler Inhale 2 Puffs as instructed every 4 hours as needed for Wheezing/Shortness of Breath. 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 No Panel InformationOrdered By: Charlie Chase on 04-10-2023 Vaginal Amniotic Fluid Detection Negative Negative [facility] Comment on above: Amniotic fluid not p resent indicates No Rupture of FetalMembranes at time of specimen collection. 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 She is at 33w4d gestation. Her obstetrical history is significant for Recurrent loss- Antiphospholipid antibody syndrome with +Lupus anticoagulant Hx Pre-diabetes CHTN BMI >50 Chronic migraines HOSEA on CPAP Hypothyroidism Intermittent SVT and syncope with loop recorder in place history fully reviewed. Anxiety Vit D deficiency. history fully reviewed.. history fully reviewed. She is unaccompanied. Movement Ambika reports normal movement. Vaginal Bleeding During Ambika denies any vaginal bleeding at this time. Vaginal DischargeAmanda denies any unusual or increase in vaginal discharge. Rupture of Membranes/Leaking Fluid The patient denies any leaking of fluid at this time. Signs and Symptoms of Preeclampsia Ambika is presenting with no preeclampsia symptoms. Pain Scale Ambika denies any signs or symptoms of pain. Review of Systems All other systems reviewed and are negative. Objective: BP 124/84 Pulse 92 Resp 18 Wt (!) 151.4 kg (333 lb 11.2 oz) SpO2 98% BMI 52.26 kg/m Physical Exam Vitals reviewed. Constitutional: Appearance: She is well-developed and well-nourished. HENT: Head: Atraumatic. Pulmonary: Effort: Pulmonary effort is normal. Abdominal: Comments: gravid Neurological: Mental Status: She is alert and oriented to person, place, and time. Psychiatric: Mood and Affect: Mood and affect normal. Behavior: Behavior normal. Thought Content: Thought content normal. Judgment: Judgment normal. FHT: 149 Presentation: Cephalic BPP 04/17 with normal JACOB- see full report in imaging Assessment/Plan: Ambika Brown is a 33 y.o. at 33w4d with: Active Non-Hospital Problems Diagnosis Date Noted Gestational diabetes mellitus (GDM) in third trimester controlled on oral hypoglycemic drug 03/05/2023 Priority: High 03/05/23 Pattern testing with elevated FBS 100%- pt would prefer metformin as previously discussed Metformin 500 mg to be initiated at HS, pt to send log in 1 week for review 04/09: Glucose log reviewed. FBS elevated 92-106. Metformin 2000mg at HS. Assuring HS snack Reviewed on 04/09/2023 Supervision of other high risk pregnancies, third trimester 10/06/2022 Priority: High PLAN OF CARE MD/OB APPOINTMENTS Genetic screening: see GC notes, unable to obtain NT How often should patient be evaluated? Monthly to 28 weeks, q 2 weeks from 28 to 36 weeks then weekly until delivery Work restrictions: NA EVALUATION surveillance: BPP twice weekly at 32 weeks Ultrasound: anatomy, growth every 4 weeks DELIVERY PLAN Hospital: [facility] Induction at 37 weeks (CHTN, hx)- pt would like to meet with (04/16) GBS culture: Contraception: condoms/spermicide : planning consult complete Reviewed on 04/09/2023 Pre-existing hypertension with pre-eclampsia in third trimester Priority: High CHTN- was on Metoprolol but stopped taking 10/05/21 BP cuff ordered. Instructed on BID BP check. Parameters to notify office 140/90 or greater. PEC labs ordered-Normal UPCR 0.15 Currently taking BASA -Monitor Bps at home. -Start meds for persistent HTN >140/90 -Beta blockade preferred to procardia given h/o SVT and ectopy -Serial growth every 4 weeks - testing at 32 weeks (once or twice weekly pending course). -Delivery by 38 weeks unless indicated sooner. 12/05: Pt met with [facility] today- BP elevate in office, they will defer to MFM for management. Plans f/u PP. Rx sent for labetalol 100 mg BID. Pt to check BP at home and report next week for med adjustment if needed. Will plan for in office appt in 2 weeks for review. Precautions reviewed with pt, encouraged to call with any concerns. 12/18/22: just started Labetalol 100mg BID 12/16/22 BP 134/86. Pt will track BP BID at home and report 140/90 or greater 12/26: pt recently in triage with concerns for elevated BP at home, BP WNL in triage. PC ratio 0.47 in triage. Labetalol dose adjusted to 200 mg TID. BP stable today in office. BP correlated with home cuff and readings not similar. Pt to return home cuff. Precautions reviewed with pt and encouraged pt to take BP at drug store until new cuff received. Will correlate new cuff at future appt. 04/09: BP stable on Labetalol 200 mg TID at this time. Precautions reviewed, continue to monitor Reviewed on 04/09/2023 Maternal cardiovascular disease affecting in third trimester Priority: High PVCs/ palpitations, Intermittent SVT Syncopal episodes Structurally normal heart, normal stress test, normal head imaging EP attempted Ablation- however, could not elicit any dysrhytmia to ablate. No syncope since 06/2022. Implantable loop recorder placed 08/2022. Follows with Dr Conrad, [facility] cardiology- appt (more content not included)... Normal [facility] Progress Noteon 04-08-2023 Progress Note ---- -------- Attestation signed by Madonna Cage MD at 04/08/2023 1:22 AM Hospital Care (Independent): I independently saw and evaluated the patient. I agree with the findings and plan of care as documented in the resident's note. -------- Department of Obstetrics and Gynecology Labor and Delivery Triage Note CHIEF COMPLAINT: Contractions HISTORY OF PRESENT ILLNESS: The patient is a 33 y.o. 33w3d. OB History 6 Para 0 Term AB 5 Living 0 SAB IAB Ectopic Multiple Live Births Patient presents with a chief complaint as above. Patient states she is feeling contractions every 10-20 minutes. She states they started around 1800 tonight. She states since being in triage they have improved. She denies DFM/VB/LOF. Estimated Due Date: Estimated Date of Delivery: 05/24/23 PAST MEDICAL HISTORY: Past Medical History: Diagnosis Date Asthma GERD (gastroesophageal reflux disease) Infertility, female Joint pain b/l knees, b/l ankles Lupus anticoagulant affecting in second trimester, antepartum (HCC) Migraines Obesity Sinus tachycardia PAST SURGICAL HISTORY: Past Surgical History: Procedure Laterality Date CHOLECYSTECTOMY CVHX IMPLANTABLE LOOP RECORDER SYSTEM 08/23/2022 TONSILLECTOMY (HISTORICAL) WISDOM TOOTH EXTRACTION SOCIAL HISTORY: reports that she has never smoked. She has never used smokeless tobacco. She reports that she does not drink alcohol and does not use drugs. MEDICATIONS: Prior to Admission medications Medication Sig Start Date End Date Taking? Authorizing Provider ascorbic acid (Vitamin C) 500 MG tablet Take 500 mg by mouth 2 times daily. Historical Provider, aspirin 81 MG EC tablet Take 162 mg by mouth daily. Historical Provider, cholecalciferol (Vitamin D3) 200 Unit tablet split tablet Take by mouth. Historical Provider, enoxaparin (Lovenox) 40 MG/0.4ML solution prefilled syringe Inject 40 mg under the skin daily. Historical Provider, famotidine (Pepcid) 10 MG tablet Take 20 mg by mouth Nightly. Historical Provider, labetalol (Normodyne) 200 MG tablet Take 1 tablet (200 mg) by mouth 3 times daily. 4/16/23 10/13/Sandra Hahn DO levothyroxine (Synthroid, Levoxyl) 50 MCG tablet Take 50 mcg by mouth every morning (before breakfast). Historical Provider, magnesium oxide (Mag-Ox) 400 (240 Mg) MG tablet Take 1 tablet (400 mg) by mouth daily. Do not start before December 30, 2022. 12/30/22 Shaw Del Angel MD metFORMIN (Glucophage) 500 MG tablet Take 1,500 mg by mouth Once. Historical Provider, SU-Cqv-II-[place]-3 ( GUMMIES/DHA & FA PO) Take 2 tablets by mouth daily. Historical Provider, sodium chloride 0.9 % nebulizer solution with albuterol (5 MG/ML) 0.5% nebulizer solution 0.9 mg/mL Inhale 2 puffs 4 times daily as needed. Historical Provider, CARE: Complicated by: GDMA2 cHTN APLS Obesity Hypothyroidism REVIEW OF SYSTEMS: Pertinent items are noted in HPI. APPEARANCE: Pain: no PHYSICAL EXAM: Vital Signs: VS wnl-reviewed/Respiration s normal effort Vitals: 04/07/23 2342 BP: 137/83 Pulse: 102 Resp: 20 Temp: 36.8 ?C (98.2 ?F) TempSrc: Oral SpO2: 97% Weight: (!) 330 lb (150 kg) Height: 5' 7.5 (1.715 m) Abdomen: soft, NT, ND, no rebound/guarding Uterus: gravid/non-tender LE Edema: trace Speculum Exam: no pooling of fluid seen, cervix visually closed Heart Rate: Category I Cervix: Closed Contraction Frequency: irregular, every 15 minutes Membranes: Intact RESULTS: NST: N/A BSUS: Vertex presentation GENERAL LABS: No results found for this or any previous visit (from the past 24 hour(s)). TRIAGE COURSE: Low concern for PTL given cervix closed and no contractions noted on toco. Offered patient 2 hour recheck, however patient would like to go home at this time. Discussed return precautions, will discharge home. ESSION: Threatened Pre-Term Labor Pain assessment and plan: None DISCUSSED WITH PNC PROVIDER: Dr. Dao DISPOSITION: Discharge to Home [facility] 04-06-2023 [facility] Telephone (DMFMER) -------- AMBIKA BROWN ([id number]) 1990 F T Date Time Provider Department 04/06/23 ZULMA MAYERS [facility] During your visit today, we recorded the following information about you: Zulma Mayers DDS 04/06/2023 9:00 AM Signed Called patient to see how she was doing from procedure yesterday. Patient states that she is doing much better in regards to pain. Will see patient next week for RCT completion. Told patient to call in the mean time if she needs anything. Zulma Mayers DD Allergies As of Date: 04/06/2023 Noted Allergy Reaction PROCHLORPERAZINE 12/02/2018 14 - Other: See Comments Comments: Compazine DIPHENHYDRAMINE 10/05/2022 14 - Other: See Comments Date Reviewed: 04/05/2023 Reviewed by: Breanna Nguyen Dent-A - Fully Assessed Reason for Visit: Patient Update [1234] Prescriptions as of 04/06/2023 - labetalol (TRANDATE) 200 mg tablet Take 200 mg by mouth three times daily. - levothyroxine (SYNTHROID) 50 mcg tablet Take 50 mcg by mouth every morning. Take On an Empty Stomach - enoxaparin (LOVENOX) 30 mg/0.3 mL injection Inject 1.502 mL subcutaneously once daily. - ondansetron (ZOFRAN) 8 mg tablet FOR NAUSEA. Take on at onset of nausea or migraine,may repeat dose in 8 hours if needed. - famotidine (PEPCID) 40 mg tablet Take 40 mg by mouth once daily. - aspirin, enteric coated (ASPIRIN, ENTERIC COATED) 81 mg EC tablet Take 81 mg by mouth daily at bedtime. - promethazine (PHENERGAN) 25 mg tablet 1/2 to 1 po q8h prn headache or nausea - cholecalciferol, vitamin D3, (VITAMIN D3 ORAL) Take by mouth. - folic acid 400 mcg tablet Take 400 mcg by mouth daily at bedtime. - PNV/FERROUS SULFATE/FOLIC ACID ( MULTIVIT WITH IRON ORAL) Take by mouth daily at bedtime. - Ascorbic Acid chew Take 500 mg by mouth daily at bedtime. - albuterol HFA (PROVENTIL HFA, VENTOLIN HFA) 90 mcg/actuation inhaler Inhale 2 Puffs as instructed every 4 hours as needed for Wheezing/Shortness of Breath. 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 04-05-2023 [facility] Office Visit (DMFLORRI ) -------- AMBIKA BROWN ([id number]) 1990 F T Date Time Provider Department 04/05/23 8:30 AM ZULMA MAYERS During your visit today, we recorded the following information about you: Pulse Blood pressure 91/minute 122/88 Zulma Mayers DDS 04/05/2023 9:42 PM Signed Limited Dental Examination and Procedure HISTORY OF PRESENT ILLNESS: This is a 33 year old female who presents with a complaint of My tooth that we worked on last time started hurting after I woke up from a nap and noticed I was clenching my jaw. Onset was yesterday afternoon, patient called and she was scheduled for this morning. Patient is currently in 8/10 pain and hurts worse by biting down. Patient has been taking Tylenol for pain. Characteristics of the pain include throbbing and pain on biting. She also reported that some of the temporary filling came out after her nap to which she might have been grinding. Patient denies any swelling, bad taste in mouth, or other signs of infection. ALLERGIES Allergen Reactions Prochlorperazine Other: See Comments Compazine Diphenhydramine Other: See Comments Current Outpatient Medications Medication Sig labetalol (TRANDATE) 200 mg tablet Take 200 mg by mouth three times daily. levothyroxine (SYNTHROID) 50 mcg tablet Take 50 mcg by mouth every morning. Take On an Empty Stomach enoxaparin (LOVENOX) 30 mg/0.3 mL injection Inject 1.502 mL subcutaneously once daily. ondansetron (ZOFRAN) 8 mg tablet FOR NAUSEA. Take on at onset of nausea or migraine,may repeat dose in 8 hours if needed. (Patient not taking: Reported on 03/28/2023) famotidine (PEPCID) 40 mg tablet Take 40 mg by mouth once daily. aspirin, enteric coated (ASPIRIN, ENTERIC COATED) 81 mg EC tablet Take 81 mg by mouth daily at bedtime. promethazine (PHENERGAN) 25 mg tablet 1/2 to 1 po q8h prn headache or nausea cholecalciferol, vitamin D3, (VITAMIN D3 ORAL) Take by mouth. folic acid 400 mcg tablet Take 400 mcg by mouth daily at bedtime. PNV/FERROUS SULFATE/FOLIC ACID ( MULTIVIT WITH IRON ORAL) Take by mouth daily at bedtime. Ascorbic Acid chew Take 500 mg by mouth daily at bedtime. albuterol HFA (PROVENTIL HFA, VENTOLIN HFA) 90 mcg/actuation inhaler Inhale 2 Puffs as instructed every 4 hours as needed for Wheezing/Shortness of Breath. No current facility-administered medications for this visit. Medications and allergies were reviewed and verified. Patient is currently 33 weeks . OBJECTIVE: General appearance: healthy, pleasant, mild distress. Limited dental exam: Extraoral Findings: Swelling: no Lymphadenopathy: no Asymmetry: no Intraoral Soft Tissues: Tongue: WNL Buccal mucosa: WNL Pharynx: WNL Palate: WNL Floor of mouth: WNL No signs of active intraoral infection, extraoral swelling, no fistula, no mobility. #12: - percussion, - palpation #13: ++++ percussion, - palpation #14: - percussion, - palpation Radiographs taken: No initial radiographs taken due to status of patient. Final radiograph was required, see below. ASSESSMENT: #13: Previously initiated therapy with symptomatic apical periodontitis It was decided to open the access, remove Cavit, and re-instrument the canals and assess internal structure of tooth. TREATMENT: Topical Benzocaine applied 1 carpule of 2% Xylocaine with 1:100K epi administered via maxillary buccal local infiltration, negative aspirations. Removed Cavit with slow speed and irrigated. Used hand files in both buccal and palatal orifices that converge into a single canal. Used .06 orifice tile ditcher in both canals. Minor bleeding present in buccal canal. Hand files from #10 up to size #25 instrumented to working length of 17 mm in both orifices. CHX used to irrigate between all files. Hemostasis achieved, canals were clean. Dried canals with paper points. CaOH placed 5 mm short of working length. Tooth restored with cotton roll in chamber, [place] and Glass Ionomer. Tooth #13 completely removed from occlusion with yonatan on high speed. Checked with occlusal paper in AK and excursive's. Checked contact with floss. Post-operative radiograph taken to assess tooth, bone, and CaOH placement; patient was double draped around the abdomen as well as thyroid collar was placed. Assessment of post operative radiograph shows calcium hydroxide before the tooth dilaceration, no cody-radicular radiolucencies noted. No signs of fracture. No signs of fracture noted on the external surfaces of the tooth or the internal surfaces of the tooth. Patient told to please call over the weekend if any additional issues arise or if the pain does not subside. Let patient know that I am corsets salesperson this weekend and told her how to reach me corsets salesperson. Patient encouraged to take a dose of Tylenol when she got home in o (more content not included)... Normal [facility] Basic Metabolic Panelon 07-2 5-2023 Calcium [Mass/Vol] 9.2 mg/dL Normal 7.6-11.0 [facility] Comment on above: Order Comment: Relea se to patient->[id number]&Blood Performed By: #### B MP ####[address] [phone] CO2 [Moles/Vol] 21.3 mmol/L Low 22.0-29.0 [facility] Comment on above: Order Comment: Relea se to patient->[id number]&Blood Performed By: #### B MP ####[address] [phone] Creatinine [Mass/Vol] 0.58 mg/dL Normal 0.50-1.[address] [facility] Comment on above: Order Comment: Relea se to patient->[id number]&Blood Performed By: #### B MP ####[address] [phone] Glucose [Mass/Vol] 82 mg/dL Normal 70-99 [facility] Comment on above: Order Comment: Relea se to patient->[id number]&Blood Result Comment: Vesna abbasi for Diagnosis of Diabetes: Fasting Specimen (no caloric intake for at least 8 hours): <100 mg/dL Normal 100-125 mg/dL Increased risk for Diabetes >125 mg/dL Diagnostic for Diabetes Random Glucose (any time of day without regard to last meal): > or = 200 mg/dL plus Classic Symptoms of Diabetes Performed By: #### B MP ####[address] [phone] Urea nitrogen [Mass/Vol] 7 mg/dL Normal 4-19 [facility] Comment on above: Order Comment: Relea se to patient->[id number]&Blood Performed By: #### B MP ####[address] [phone] Chloride [Moles/Vol] 104 mmol/L Normal 96-108 [facility] Comment on above: Order Comment: Relea se to patient->[id number]&Blood Performed By: #### B MP ####[address] [phone] Potassium [Moles/Vol] 4.1 mmol/L Normal 3.3-5.[address] [facility] Comment on above: Order Comment: Relea se to patient->[id number]&Blood Performed By: #### B MP ####[address] [phone] Sodium [Moles/Vol] 137 mmol/L Normal 133-145 [facility] Comment on above: Order Comment: Relea se to patient->[id number]&Blood Performed By: #### B MP ####[address] [phone] Magnesiumon 04-03-2023 Magnesium [Mass/Vol] 1.8 mg/dL Normal 1.5-2.2 [facility] Comment on above: Order Comment: Relea se to patient->Automatic [id number]&Blood Performed By: #### B MP #### [address] [id number] Progress Noteon 04-03-2023 Automotive Maintenance Technician Authentication Interface Message Text Visit Subjective: Ambika Brown is being seen today for an obstetrical visit. She is at 32w5d gestation. Her obstetrical history is significant for: Recurrent loss- Antiphospholipid antibody syndrome with +Lupus anticoagulant Hx Pre-diabetes CHTN BMI >50 Chronic migraines HOSEA on CPAP Hypothyroidism Intermittent SVT and syncope with loop recorder in place history fully reviewed. Anxiety Vit D deficiency. Pt did not bring glucose log for review, has not been checking values as she did not have her metformin from pharmacy- see problem list. Encouraged increased compliance. history fully reviewed. She is unaccompanied. Ambika denies any cramping, contractions, vaginal bleeding, unusual or increase in vaginal discharge, signs and symptoms of pre-eclampsia, or leaking of any fluid. Patient with positive movement. Review of Systems All other systems reviewed and are negative. Objective: BP 135/76 Pulse 87 Resp 18 Wt (!) 152 kg (335 lb 3.2 oz) SpO2 98% BMI 52.50 kg/m Physical Exam Nursing note and vitals reviewed. Constitutional: Appearance: She is well-developed and well-nourished. Pulmonary: Effort: Pulmonary effort is normal. Abdominal: Comments: gravid Musculoskeletal: General: Normal range of motion. Neurological: Mental Status: She is alert and oriented to person, place, and time. Skin: General: Skin is warm and dry. Psychiatric: Mood and Affect: Mood and affect normal. Behavior: Behavior normal. FHT: Positive Presentation: Breech Uterine Size: see growth Ultrasound: see report Assessment/Plan: Ambika Brown is a 33 y.o. at 32w5d with: Active Non-Hospital Problems Diagnosis Date Noted Gestational diabetes mellitus (GDM) in third trimester controlled on oral hypoglycemic drug 03/05/2023 Pattern testing with elevated FBS 100%- pt would prefer metformin as previously discussed Metformin 500 mg to be initiated at HS, pt to send log in 1 week for review 03/19 FBS 90s Metformin 1000mg at bedtime. Assure HS snack 04/03: pt has not been checking glucose over the past week as did not have refill of metformin from pharmacy, also not taking metformin. Now has meds and is checking glucose. Pt to continue Metformin 1500 mg at HS. Will send log Sunday for review if consistent hyperglycemia noted. Encouraged increased compliance. Reviewed on 04/03/2023 Abnormal glucose tolerance test in 02/06/2023 1 elevated value (FBS) on 3 hour GTT. Nutrition scheduled 02/20 Instructed on pattern testing- pt was on vacation so had not pattern tested. 02/19: Instructed to start testing at this time. Meeting with Nutrition tele tomorrow. Pt will send log for review in 1 week. Discussed possible med management with pt if needed. Reviewed metformin vs insulin management, risk/benefits. Pt would prefer to try metformin to start as she has used in the past, pt would also like to avoid more needle sticks if able as she is already using Lovenox. 03/05 pattern testing reviewed, GDM -see GDM problem Vitamin D deficiency 11/06/2022 Vit D 19 on 10/06 Rec Vit D3 1000-2000IU daily- taking Plan repeat in 3 months- 02/01 WNL F/u testing April(32 weeks)- ordered 04/03 Reviewed on 04/03/2023 Disease of respiratory system affecting in third trimester 10/06/2022 Asthma Nervous system disease affecting in third trimester, antepartum 10/06/2022 migraines Supervision of other high risk pregnancies, third trimester 10/06/2022 PLAN OF CARE MD/OB APPOINTMENTS Genetic screening: see GC notes, unable to obtain NT How often should patient be evaluated? Monthly to 28 weeks, q 2 weeks from 28 to 36 weeks then weekly until delivery Work restrictions: NA EVALUATION surveillance: BPP twice weekly at 32 weeks Ultrasound: anatomy, growth every 4 weeks DELIVERY PLAN Hospital: [facility] Induction at 37 weeks (CHTN, hx)- pt would like to meet with (04/16) GBS culture: Contraception: condoms/spermicide : planning consult complete Reviewed on 04/03/2023 Uncomplicated asthma Has inhaler for prn use No recent exacerbations Reviewed on 04/03/2023 Pre-existing hypertension with pre-eclampsia in third trimester CHTN- was on Metoprolol but stopped taking 10/05/21 BP cuff ordered. Instructed on BID BP check. Parameters to notify office 140/90 or greater. PEC labs ordered-Normal UPCR 0.15 Currently taking BASA -Monitor Bps at home. -Start meds for persistent HTN >140/90 -Beta blockade preferred to procardia given h/o SVT and ectopy -Serial growth every 4 weeks - testing at 32 weeks (once or twice weekly pending course). -Delivery by 38 weeks unless indicated sooner. 12/05: Pt met with [facility] today- BP elevate in office, they will defer to MFM for management. Plans f/u PP. Rx sent for labetalol (more content not included)... Normal [facility] TSH with reflex T4FRon 04-03 TSH with reflex T4FR 2.540 uIU/mL Normal 0.300-4.200 [facility] Comment on above: Order Comment: Relea se to patient->Automatic [id number]&Blood Performed By: #### B MP #### [facility] [address] [place] [address] Vitamin D 25 OHon 04-03-2023 25 [place] Vitamin D 44 ng/mL Normal 30-100 [facility] Comment on above: Order Comment: Relelouisa se to patient->[id number]&Blood Result Comment: Refe rence ranges provided by [facility] Hospital Laboratory are based on Endocrine Society Guidelines: Level: Characterization < 21 ng/mL: Vitamin D deficiency 21-29 ng/mL: Suboptimal Vitamin D status 30-100 ng/mL: Optimal Vitamin D status >100 ng/mL: Potentially toxic Vitamin D effects Performed By: #### V 25DH ####[facility] [place], [place] [phone] CNOVon 03-28-2023 CNOV Office Visit (DMFMER ) -------- AMBIKA BROWN ([id number]) 1990 F T Date Time Provider Department 03/28/23 1:00 PM ZULMA MAYERS DMFMER During your visit today, we recorded the following information about you: Pulse Blood pressure 98/minute 110/92 Zulma Mayers DDS 03/28/2023 6:57 PM Addendum Limited Dental Examination: HISTORY OF PRESENT ILLNESS: This is a 33 year old female who presents with a complaint of I have 5/10 pain on my upper tooth. Onset was months ago. The pain is exaggerated by eating and hot/cold. The patient has not taken any medications for the pain. Currently 31 weeks . Patient also reports having a monitor placed in her heart to diagnose her. She is taking anticoagulation therapy. OBJECTIVE: General appearance: healthy, alert, cooperative, mild distress Limited dental exam: No external buccal swelling Extraoral Findings: Swelling: no Lymphadenopathy: no Asymmetry: no Intraoral Soft Tissues: Tongue: WNL Buccal mucosa: WNL Pharynx: WNL Palate: WNL Floor of mouth: WNL Radiographs taken: Panoramic No, FMX No, Bitewings Yes, PA # 13 1 BW taken, 1 PA taken, no pano taken due to the fact that the patient is . Patient was double draped during radiographs. ASSESSMENT: #12: + percussion, + exaggerated/non-lingerin g to cold, - tooth sleuth: Symptomatic Apical Periodontitis with normal pulp #13: + percussion, +++ exaggerated/lingering 8 seconds, - tooth sleuth: Symptomatic Irreversible Pulpitis with Symptomatic Apical Periodontitis #14: + percussion, + exaggerated/lingering 4 seconds, - tooth sleuth: Symptomatic Apical Periodontitis with normal apical tissues No swelling, intraoral or extraoral. No signs of active infection. TREATMENT: Pulpectomy #13 and decay excavation Plan: Verbal and written consent verified and confirmed. Anesthetic: 2x carpules of 2% Lidocaine w/ 1:100,000 Epi via Maxillary Local Infiltration , aspirations negative. Profound anesthesia achieved. Isolation: Rubber dam. Accessed tooth and excavated decay. Located 1 canals. Irrigated. Used apex delivery route driver with hand file to establish final working length. Final WL: 17 mm, determined by apex delivery route driver and confirmed with radiographic examination. Used hand files: 08, 10, 15 to remove pulp to the working length. Canal dried, calcium hydroxide placed 5 mm short of working length. Placed cotton and cavit in the access. Cleaned the cavit and removed rubber dam. Discussed post-op instructions, including risk of endodontic flare-up and post-op sensitivity. Stressed importance of definitive temple. Patient dismissed alert and oriented. I have discussed the risks, benefits, complications, and alternatives with treatment at this time. I have also discussed other options with Ambika Brown. She understands the above issues. Patient explained to take Tylenol if needed and avoid Ibuprofen. Stressed to patient that pulpectomy should get the patient out of pain, but it is possible that the symptoms will not resolve and we will need to get her back in to obturate the RCT ABIMAEL. Patient also told that she should call us if any issues arise and to not hesitate due to the fact that we have an corsets salesperson resident at all times. Patient was comfortable throughout the procedure and rolled on her left side for comfort. Pulse Oximeter kept on patient throughout the entirety of the procedure: patients started 96 spO2 and maintained 97 spO2 throughout the procedure. Various Bps taken throughout procedure: 110/92 mmHg, pulse 98 bpm: before procedure 125/89 mmHg, pulse 90 bpm: after anesthesia 113/82 mmhg, pulse 93 bpm: upon discharge NN Woodward: PATIENT NEEDS TO BE SCHEDULED FOR COMPLETION OF RCT ABIMAEL (does not need to be on RCT day). Patient will be induced at 35 weeks of her and we should finish the RCT prior. RCT completion #13 from rotary to obturation. Assisted by: Breanna Supervised by: Dr. Henley, DOMINGUEZ Loya Andrew M, DMD 04/02/2023 9:28 PM Signed I have seen and evaluated the patient and discussed the case with the resident physician. I agree with the assessment and plan as documented in the resident?s note. Narciso Fields DMD Allergies As of Date: 03/28/2023 Noted Allergy Reaction PROCHLORPERAZINE 12/02/2018 14 - Other: See Comments Comments: Compazine DIPHENHYDRAMINE 10/05/2022 14 - Other: See Comments Date Reviewed: 03/28/2023 Reviewed by: Breanna Nguyen Dent-Louisa - Fully Assessed Reason for Visit: Toothache [1289] Primary Visit Diagnosis:Symptomatic irreversible pulpitis [K04.02] Other Visit Diagnosis:Dental caries extending into dentine [K02.62] Order(s):ENDODONTIC THERAPY, PREMOLAR TOOTH (EXCLUDING FINAL VOODOO) [D3320] Order #: [id number]: 1 FUTURE ENDODONTIC THERAPY, PREMOLAR TOOTH (EXCLUDIN (more content not included)... Normal [facility] Progress Noteon 03-26-2023 Automotive Maintenance Technician Authentication Interface Message Text Visit Subjective: Ambika Brown is being seen today for an obstetrical visit. She is at 31w4d gestation. Her obstetrical history is significant for Recurrent loss- Antiphospholipid antibody syndrome with +Lupus anticoagulant Hx Pre-diabetes CHTN BMI >50 Chronic migraines HOSEA on CPAP Hypothyroidism Intermittent SVT and syncope with loop recorder in place history fully reviewed. Anxiety Vit D deficiency. history fully reviewed. She is unaccompanied. Gestational Diabetes Signs and Symptoms of Labor Ambika presents with no labor symptoms. Movement Ambika reports normal movement. Vaginal Bleeding During Ambika denies any vaginal bleeding at this time. Vaginal DischargeAmanda denies any unusual or increase in vaginal discharge. Rupture of Membranes/Leaking Fluid The patient denies any leaking of fluid at this time. Signs and Symptoms of Preeclampsia Ambika is presenting with no preeclampsia symptoms. Pain Scale Ambika denies any signs or symptoms of pain. Review of Systems Constitutional: Positive for fever (recent fever 101. Afebrile today). HENT: Positive for dental problem (feels fever secondary to tooth pain. Is working to get in with dentist ABIMAEL for evaluation). Cardiovascular: Episode of tachycardia yesterday 120. Resolved spontaneously. Psychiatric/Behavioral: Positive for sleep disturbance (tired today as did not sleep well last pm as could not get comfortable with advancing ). Feeling better this past week. All other systems reviewed and are negative. Objective: BP 124/78 Pulse 88 Resp 18 Wt (!) 150.6 kg (332 lb) SpO2 98% BMI 52.00 kg/m Physical Exam Vitals reviewed. Constitutional: Appearance: She is well-developed and well-nourished. Cardiovascular: Comments: Heart rate 88 today Pulmonary: Effort: Pulmonary effort is normal. Abdominal: Comments: gravid Musculoskeletal: General: Normal range of motion. Neurological: Mental Status: She is alert and oriented to person, place, and time. Psychiatric: Mood and Affect: Mood and affect normal. Behavior: Behavior normal. Thought Content: Thought content normal. Judgment: Judgment normal. FHT: 146 Presentation: Breech BPP 8/8 with normal JACOB-see full report in imaging Assessment/Plan: Ambika Brown is a 33 y.o. at 31w4d with: Active Non-Hospital Problems Diagnosis Date Noted Gestational diabetes mellitus (GDM) in third trimester controlled on oral hypoglycemic drug 03/05/2023 Priority: High Pattern testing with elevated FBS 100%- pt would prefer metformin as previously discussed Metformin 500 mg to be initiated at HS, pt to send log in 1 week for review 03/19 FBS 90s Metformin 1000mg at bedtime. Assure HS snack 03/26: pt forgot log but reports FBS 105-125. No elevated pp. Metformin 1500 mg at HS. Reviewed on 03/26/2023 Supervision of other high risk pregnancies, third trimester 10/06/2022 Priority: High PLAN OF CARE MD/OB APPOINTMENTS Genetic screening: see GC notes, unable to obtain NT How often should patient be evaluated? Monthly to 28 weeks, q 2 weeks from 28 to 36 weeks then weekly until delivery Work restrictions: NA EVALUATION surveillance: BPP twice weekly at 32 weeks Ultrasound: anatomy, growth every 4 weeks DELIVERY PLAN Hospital: [facility] Induction at 37 weeks (CHTN, hx)- pt would like to meet with (04/16) GBS culture: Contraception: condoms/spermicide : planning consult complete Reviewed on 03/26/2023 Pre-existing hypertension with pre-eclampsia in third trimester Priority: High CHTN- was on Metoprolol but stopped taking 10/05/21 BP cuff ordered. Instructed on BID BP check. Parameters to notify office 140/90 or greater. PEC labs ordered-Normal UPCR 0.15 Currently taking BASA -Monitor Bps at home. -Start meds for persistent HTN >140/90 -Beta blockade preferred to procardia given h/o SVT and ectopy -Serial growth every 4 weeks - testing at 32 weeks (once or twice weekly pending course). -Delivery by 38 weeks unless indicated sooner. 12/05: Pt met with [facility] today- BP elevate in office, they will defer to MFM for management. Plans f/u PP. Rx sent for labetalol 100 mg BID. Pt to check BP at home and report next week for med adjustment if needed. Will plan for in office appt in 2 weeks for review. Precautions reviewed with pt, encouraged to call with any concerns. 12/18/22: just started Labetalol 100mg BID 12/16/22 BP 134/86. Pt will track BP BID at home and report 140/90 or greater 12/26: pt recently in triage with concerns for elevated BP at home, BP WNL in triage. PC ratio 0.47 in triage. Labetalol dose adjusted to 200 mg TID. BP stable today in office. BP correlated with home cuff and readings not similar. Pt to return home cuff. Precautions review (more content not included)... Normal [facility] 36on 03-22-2023 36 04/05/23 1:50PM OMT Normal [facility] Office Visiton 03-21-2023 Follow-up visit [id number] Britton Brown 1990 F Date Provider Department Center 03/21/2023 [id number], ZEBA [facility] None Chart Close Cosign Accepted by: VILMA RAZO[[id number]] Chart Close Cosign Accepted on: SunMar 23, 2023 8:18 AM Family History Problem Relation Age of Onset Hypertension Mother Diabetes Paternal Grandmother Diabetes Paternal Grandfather Diabetes Maternal Grandfather Diabetes Maternal Grandmother Hypertension Father Family Status - Relation Status Age at Mother Paternal Grandmother Paternal Grandfather Maternal Grandfather Maternal Grandmother Father Level of Service:[id number] ND OFFICE/OUTPATIENT ESTABLISHED LOW [facility] 20-29 MIN Reason for Visit and Comments: OMT [Other] Normal [facility] PATINSon 03-21-2023 PATINS Home Follow up after Osteopathic Manipulative Treatments: - You may be sore on the day following OMT. This is normal. - Take Tylenol and use ice or heat over treated area. - Continue with self massage using a with a firm rubber ball or frozen tennis ball to help alleviate muscle spasm. Try to incorporate this daily. - Continue with light stretching as discussed in the office today. - Be sure to get some additional rest the next few days. - Apply moist heat to the area: 20 min on and 20 min off. - Drink plenty of water (half your body weight in pounds = number of ounces of water/day) Normal [facility] Progress Noteon 03-21-2023 Progress Note [facility]ILY MEDICINE [facility] OF [address] [facility] [address] Dept: [phone] Dept Subjective Ambika Brown is a 33 y.o. year old who presents to the office with the following complaint(s): Chief Complaint Patient presents with OMT OMT H&P: Chronic migraines. Tension in back of neck, shoulders bilaterally and upper back. Second OMT. Has also been going to chiropractor and doing home stretches. Following with MFM for . No prior imaging or specialist eval. Also uses tylenol only when needed, heat, ice. Treatments tried: as above Osteopathic Red Flags: Negative for: cancer, spinal osteomyelitis, spinal fracture, herniated disc and ankylosing spondylitis, or cauda equina syndrome Review of Systems Musculoskeletal: Positive for neck pain. Neurological: Positive for headaches. Patient Active Problem List Diagnosis Infertility, female Obesity GERD (gastroesophageal reflux disease) Left-sided weakness Mild intermittent asthma without complication Migraine Hemiplegic migraine without status migrainosus, not intractable Chronic migraine without aura Somatic dysfunction of head region Somatic dysfunction of cervical region Somatic dysfunction of thoracic region Somatic dysfunction of both upper extremities Somatic dysfunction of both lower extremities Family History Problem Relation Name Age of Onset Hypertension Mother Diabetes Paternal Grandmother Diabetes Paternal Grandfather Diabetes Maternal Grandfather Diabetes Maternal Grandmother Hypertension Father Social History Tobacco Use Smoking status: Never Smokeless tobacco: Never Substance Use Topics Alcohol use: No Current Outpatient Medications on File Prior to Visit Medication Sig Dispense Refill ascorbic acid (Vitamin C) 500 MG tablet Take 500 mg by mouth 2 times daily. aspirin 81 MG EC tablet Take 162 mg by mouth daily. cholecalciferol (Vitamin D3) 200 Unit tablet split tablet Take by mouth. enoxaparin (Lovenox) 40 MG/0.4ML solution prefilled syringe Inject 40 mg under the skin daily. famotidine (Pepcid) 10 MG tablet Take 20 mg by mouth Nightly. labetalol (Normodyne) 200 MG tablet Take 1 tablet (200 mg) by mouth 3 times daily. 90 tablet 5 levothyroxine (Synthroid, Levoxyl) 50 MCG tablet Take 50 mcg by mouth every morning (before breakfast). magnesium oxide (Mag-Ox) 400 (240 Mg) MG tablet Take 1 tablet (400 mg) by mouth daily. Do not start before December 30, 2022. 30 tablet 11 metFORMIN (Glucophage) 500 MG tablet Take 500 mg by mouth Once. ZA-Vof-AC-[place]-3 ( GUMMIES/DHA & FA PO) Take 2 tablets by mouth daily. sodium chloride 0.9 % nebulizer solution with albuterol (5 MG/ML) 0.5% nebulizer solution 0.9 mg/mL Inhale 2 puffs 4 times daily as needed. No current facility-administered medications on file prior to visit. Allergies Allergen Reactions Prochlorperazine Anxiety Other reaction(s): anxiety, Other, Other: See Comments Other reaction(s): Other: See Comments Compazine Diphenhydramine Palpitations Objective BP 105/67 (BP Location: Left arm, Patient Position: Sitting, BP Cuff Size: Large adult) Pulse 85 Temp (!) 35.8 ?C (96.5 ?F) (Temporal) Resp 20 Ht 5' 7.52 (1.715 m) Wt (!) 334 lb 9.6 oz (152 kg) BMI 51.60 kg/m? Physical Exam HENT: Head: Normocephalic and atraumatic. Right Ear: External ear normal. Left Ear: External ear normal. Eyes: General: No scleral icterus. Right eye: No discharge. Left eye: No discharge. Conjunctiva/sclera: Conjunctivae normal. Pupils: Pupils are equal, round, and reactive to light. Musculoskeletal: Right shoulder: Normal. Left shoulder: Normal. Cervical back: Normal, normal range of motion and neck supple. No rigidity or tenderness. Thoracic back: Normal. Lumbar back: Normal. Neurological: General: No focal deficit present. Cranial Nerves: Cranial nerves 2-12 are intact. Sensory: Sensation is intact. Motor: No weakness. Psychiatric: Attention and Perception: Attention normal. Mood and Affect: Mood normal. Speech: Speech normal. Behavior: Behavior normal. Motor exam: 5/5 in all extremities Reflexes: not checked Sensation: intact Osteopathic Exam: Region All Texture Asymmetry Restriction Tenderness Laterality Comments Head [] [x] [] [] [x] [x]R [x]L Cervical [] [x] [] [] [x] [x]R []L Thoracic [] [x] [] [] [x] [x]R []L Assessment/Plan 1. Chronic migraine without aura without status migrainosus, not intractable 2. Somatic dysfunction of head region 3. Somatic dysfunction of cervical region 4. Somatic dysfunction of thoracic region Chronic, stable OMT completed today in head, cervical and thoracic region as noted. Advised continued supportive care with tylenol, heat/ice, home exercises. Follow up in two weeks for repeat OMT. Region Technique Soft Tissue Myofascial release HVLA [employer] FPR/BLT/ Still's Function (more content not included)... Normal [facility] Progress Note Teaching Physician N ote: Indirect Supervision - Modifier GE During or immediately after this visit, I discussed this case with the treating resident. The resident's note reflects the information we discussed, and I agree with the resident's assessment and treatment plan. Vitals: 03/21/23 0935 BP: 105/67 Pulse: 85 Resp: 20 Temp: (!) 35.8 ?C (96.5 ?F) Please see resident?s note for further details. This service has been performed in part by a resident under the direction of a teaching physician (LEXIE Sorto) Vilma Razo DO Normal [facility] Progress Note Visit reason: OMT Additional information: no Medications needing to be refilled: no Patient was able to ambulate safely to the examination room. Provider was not notified of possible fall risk. Identification Printing Machine Setter: not offered PHQ2: negative Suicidal ideation: absent Food insecurity screening: negative Industrial Education Instructor used: no [facility] 36on 03-20-2023 36 Please call patient to re-schedule appointment to another time and provider as I have limited time for OMT this month. She is currently scheduled for 03/21 at 9:30a. Thank you. [facility] Culture, urineOrdered By: GOOD MASON on 03-19-2023 Bacteria identified Cx Nom (U) Positive [facility] Progress Noteon 03-19-2023 Automotive Maintenance Technician Authentication Interface Message Text Visit Subjective: Ambika Brown is being seen today for an obstetrical visit. She is at 30w4d gestation. Her obstetrical history is significant for Recurrent loss- Antiphospholipid antibody syndrome with +Lupus anticoagulant Hx Pre-diabetes CHTN BMI >50 Chronic migraines HOSEA on CPAP Hypothyroidism Intermittent SVT and syncope with loop recorder in place history fully reviewed. Anxiety Vit D deficiency. history fully reviewed. Recent evaluations in Triage 03/08 and for decreased movement and treatment for yeast. Today she denies and headache, visual changes, shortness of breath, contractions, vaginal bleeding. She reports good movement and has seen improvement in her pedal edema. Reports feeling waves of depression and has reconnected with her counselor. Does not want medication at this time, just wants us aware and to continue monitoring throughout remainder of /. She is unaccompanied. Signs and Symptoms of Labor Ambika presents with no labor symptoms. Movement Ambika reports normal movement. Vaginal Bleeding During Ambika denies any vaginal bleeding at this time. Vaginal DischargeAmanda denies any unusual or increase in vaginal discharge. Rupture of Membranes/Leaking Fluid The patient denies any leaking of fluid at this time. Signs and Symptoms of Preeclampsia Amibka is presenting with no preeclampsia symptoms. Pain Scale Ambika denies any signs or symptoms of pain. Review of Systems Psychiatric/Behavioral: Increase in sad days, easy to tears but also recognizing the gustabo with advancing and support network All other systems reviewed and are negative. Objective: BP 126/72 Pulse 88 Resp 18 Wt (!) 151.3 kg (333 lb 8 oz) SpO2 99% BMI 52.23 kg/m Physical Exam Vitals reviewed. Constitutional: Appearance: She is well-developed and well-nourished. HENT: Head: Normocephalic and atraumatic. Cardiovascular: Rate and Rhythm: Normal rate. Pulmonary: Effort: Pulmonary effort is normal. Abdominal: Comments: gravid Musculoskeletal: General: Normal range of motion. Neurological: Mental Status: She is alert and oriented to person, place, and time. Psychiatric: Mood and Affect: Mood and affect normal. Behavior: Behavior normal. Thought Content: Thought content normal. Judgment: Judgment normal. FHT: 140s with doppler Presentation: not evaluated today Assessment/Plan: Ambika Brown is a 33 y.o. at 30w4d with: Active Non-Hospital Problems Diagnosis Date Noted Gestational diabetes mellitus (GDM) in third trimester controlled on oral hypoglycemic drug 03/05/2023 Priority: High Pattern testing with elevated FBS 100%- pt would prefer metformin as previously discussed Metformin 500 mg to be initiated at HS, pt to send log in 1 week for review 03/19 FBS 90s Metformin 1000mg at bedtime. Assure HS snack Reviewed on 03/19/2023 Supervision of other high risk pregnancies, third trimester 10/06/2022 Priority: High PLAN OF CARE MD/OB APPOINTMENTS Genetic screening: see GC notes, unable to obtain NT How often should patient be evaluated? Monthly to 28 weeks, q 2 weeks from 28 to 36 weeks then weekly until delivery Work restrictions: NA EVALUATION surveillance: BPP twice weekly at 32 weeks Ultrasound: anatomy, growth every 4 weeks DELIVERY PLAN Hospital: [facility] Induction at 37 weeks (CHTN, hx)- pt would like to meet with closer to delivery (will have scheduled) GBS culture: Contraception: condoms/spermicide : planning consult referral placed Reviewed on 03/19/2023 Pre-existing hypertension with pre-eclampsia in third trimester Priority: High CHTN- was on Metoprolol but stopped taking 10/05/21 BP cuff ordered. Instructed on BID BP check. Parameters to notify office 140/90 or greater. PEC labs ordered-Normal UPCR 0.15 Currently taking BASA -Monitor Bps at home. -Start meds for persistent HTN >140/90 -Beta blockade preferred to procardia given h/o SVT and ectopy -Serial growth every 4 weeks - testing at 32 weeks (once or twice weekly pending course). -Delivery by 38 weeks unless indicated sooner. 12/05: Pt met with [facility] today- BP elevate in office, they will defer to MFM for management. Plans f/u PP. Rx sent for labetalol 100 mg BID. Pt to check BP at home and report next week for med adjustment if needed. Will plan for in office appt in 2 weeks for review. Precautions reviewed with pt, encouraged to call with any concerns. 12/18/22: just started Labetalol 100mg BID 12/16/22 BP 134/86. Pt will track BP BID at home and report 140/90 or greater 12/26: pt recently in triage with concerns for elevated BP at home, BP WNL in triage. PC ratio 0.47 in triage. Labetalol dose adjusted to 200 mg TID. BP stable to (more content not included)... Normal [facility] Absolute lymphocyte countOrd ered By: Richy Dumont on 03-10-2023 Lymphocytes Auto (Unsp spec) [#/Vol] 2.36 10*3/uL 0.83-4.51 [facility] Basophil percentageOrdered B y: Richy Dumont on 03-10-2023 Basophils/100 WBC (Bld) 0.1 % 0-1 [facility] Chloride [Moles/Vol] 108 mmol/L 98-107 [facility] Eosinophils/100 WBC (Bld) 1.3 % 0-5 [facility] Glucose [Mass/Vol] 115 mg/dL 74-106 [facility] Comment on above: Fasting Glucose resu lt from 100 to 125 mg/dL suggests IMPAIRED HOMEOSTASIS per A.D.A. criteria. Neutrophils (Bld) [#/Vol] 11.2 10*3/uL 2.0-7.7 [facility] Neutrophils/100 WBC (Bld) 76.1 % 47-70 [facility] Potassium [Moles/Vol] 3.5 mmol/L 3.5-5.1 [facility] Sodium [Moles/Vol] 137 mmol/L 136-145 [facility] WBC (Bld) [#/Vol] 14.7 10*3/uL 4.4-11.0 [facility] Blood erythrocytes count (nu mber/volume)Ordered By: Richy Dumont on 03-10-2023 RBC (Bld) [#/Vol] 4.16 10*6/uL 4.2-5.4 [facility] Blood hemoglobin measurement (mass/volume)Ordered By: Richy Dumont on 03-10-2023 Hemoglobin (Bld) [Mass/Vol] 11.0 g/dL 12.0-15.0 [facility] Blood lymphocytes/100 leukoc ytesOrdered By: Richy Dumont on 03-10-2023 Lymphocytes/100 WBC (Bld) 16.0 % 19-41 [facility] Blood monocytes/100 leukocyt esOrdered By: Richy Dumont on 03-10-2023 Monocytes/100 WBC (Bld) 6.0 % 0-10 [facility] Blood platelet mean volumeOr dered By: Richy Dumont on 03-10-2023 Platelet mean volume (Bld) [Entitic vol] 12.1 fL 6.2-12.0 [facility] Determination of erythrocyte mean corpuscular volume (MCV)Ordered By: Richy Dumont on 03-10-2023 MCV (RBC) [Entitic vol] 82.9 fL 81-99 [facility] Hematocrit Auto (Bld) [Volum e fraction]Ordered By: Richy Dumont on 03-10-2023 Hematocrit (Bld) [Volume fraction] 34.5 % 37-47 [facility] Laboratory - Chemistry and C hemistry - challengeOrdered By: Richy Dumont on 03-10-2023 CO2 [Moles/Vol] 23.0 mmol/L 21.0-32.0 [facility] Lipase [Catalytic activity/Vol] 48 U/L 13-75 [facility] Comment on above: Please note:LIPASE r evised reference range effective 22. New Lipase methodology. Expected to produce lower values than the previous assay method. NEW Reference Range: 13 - 75 U/L Urea nitrogen/Creatinine [Mass ratio] 15.6 mg/mg 10-20 [facility] Laboratory - Hematology and Cell countsOrdered By: Richy Dumont on 03-10-2023 Erythrocyte distribution width (RBC) [Entitic vol] 46.1 fL 35.1-43.9 [facility] Erythrocyte distribution width (RBC) [Ratio] 15.3 % 11.6-14.6 [facility] Immature granulocytes/100 WBC (Bld) 0.500 % 0.0-0.9 [facility] Comment on above: IG% - Immature Granu locytes (promyelocytes, myelocytes and metamyelocytes) > 1% indicates that a LEFT SHIFT is Present. MCH (RBC) [Entitic mass] 26.4 pg 27.0-32.0 [facility] Nucleated RBC/100 WBC (Bld) [Ratio] 0 % 0-5 [facility] MCHC Auto (RBC) [Mass/Vol]Or dered By: Richy Dumont on 03-10-2023 MCHC (RBC) [Mass/Vol] 31.9 g/dL 32-36 [facility] No Panel InformationOrdered By: Richy Dumont on 03-10-2023 D-Dimer Quantitative (PE/DVT) 0.29 FEU/ug/m 0.27-0.49 [facility] Comment on above: NORMAL D-Dimer level (<0.50) indicates no DVT or PE. Estimated Creatinine Clearance Calc 112.20 ml/min [facility] Estimated GFR (MDRD) Amer 124 mL/min >60 [facility] Comment on above: GFR Calc Estimated GFR (MDRD) Non-Af Amer 102 mL/min >60 [facility] Comment on above: Non- GFR Calc Troponin I High Sensitivity 5 pg/mL 3.0-54.0 [facility] Comment on above: Please Note: New Cindy t Units and Gender Specific Reference Ranges. For more information see Policy Stat Procedure [place] High Sensitivity Troponin (TNIH) and attachments. Platelets bldOrdered By: Juan José Dumont on 03-10-2023 Platelets (Bld) [#/Vol] 206 10*3/uL 150-450 [facility] Serum or plasma calcium prieto urement (mass/volume)Ordered By: Richy Dumont on 03-10-2023 Calcium [Mass/Vol] 9.5 mg/dL 8.5-10.1 [facility] Serum or plasma creatinine m easurement (mass/volume)Ordered By: Richy Dumont on 03-10-2023 Creatinine [Mass/Vol] 0.70 mg/dL 0.55-1.02 [facility] Comment on above: The validity of the calculated GFR & GFRAA in patients over 70 years has not been determined. Clinical correlation is essential. Serum or plasma urea nitroge n measurement (mass/volume)Ordered By: Richy Dumont on 03-10-2023 Urea nitrogen [Mass/Vol] 11 mg/dL 7-18 [facility] Thin prep Papanicolaou smear with manual screeningOrdered By: Richy Dumont on 03-10-2023 Thin prep Papanicolaou smear with manual screening 6 5-15 [facility] Bacterial vaginosis and vagi nitis rRNA panel Probe (Vag fld)on 03-09-2023 Bacterial vaginosis Ql (Vag fld) [Interp] Not detected Not Detected [facility] C. glabrata DNA JJ+probe Ql (Vag fld) Not detected Not Detected [facility] Bruno sp DNA JJ+probe Ql (Vag fld) Not detected Not Detected [facility] Interpretation and review of laboratory results Normal [facility] T. vaginalis DNA JJ+probe Ql (Vag fld) Not detected Not Detected [facility] Methodology: real-ti me PCR A negative result does not preclude a possible infection. This assay can detect the Bruno species C. albicans, C. tropicalis, C. parapsilosis, and C. dubliniensis but does not differentiate among them. The assay also detects C. glabrata and C. krusei, but does not differentiate between them. Results should be interpreted in conjunction with other clinical data. This test has not been validated for use with specimens collected by patients at home. This test is intended for medical purposes only and is not valid for the evaluation of suspected sexual abuse or for other forensic purposes. [facility] Progress Noteon 03-09-2023 Progress Note ---- -------- Attestation signed by Genoveva Chun DO at 03/09/2023 1:01 AM Hospital Care (Independent): I independently saw and evaluated the patient. I agree with the findings and plan of care as documented in the resident's note. -------- Department of Obstetrics and Gynecology Labor and Delivery Triage Note CHIEF COMPLAINT: DFM, Abdominal cramping HISTORY OF PRESENT ILLNESS: The patient is a 33 y.o. 29w1d presenting with DFM since yesterday and normally baby is active. Patient also states that she has had some intermittnet cramping that started again today around 4PM and increased with intensity at 9pm today. Patient denies any increase in discharge or urinary symptoms. OB History 6 Para 0 Term AB 5 Living 0 SAB IAB Ectopic Multiple Live Births Patient presents with a chief complaint as above. Denies VB/LOF/CTX Estimated Due Date: Estimated Date of Delivery: 05/24/23 PAST MEDICAL HISTORY: Past Medical History: Diagnosis Date Asthma GERD (gastroesophageal reflux disease) Infertility, female Joint pain b/l knees, b/l ankles Lupus anticoagulant affecting in second trimester, antepartum (HCC) Migraines Obesity Sinus tachycardia PAST SURGICAL HISTORY: Past Surgical History: Procedure Laterality Date CHOLECYSTECTOMY CVHX IMPLANTABLE LOOP RECORDER SYSTEM 08/23/2022 TONSILLECTOMY (HISTORICAL) WISDOM TOOTH EXTRACTION SOCIAL HISTORY: reports that she has never smoked. She has never used smokeless tobacco. She reports that she does not drink alcohol and does not use drugs. MEDICATIONS: Prior to Admission medications Medication Sig Start Date End Date Taking? Authorizing Provider ascorbic acid (Vitamin C) 500 MG tablet Take 500 mg by mouth 2 times daily. Historical Provider, aspirin 81 MG EC tablet Take 162 mg by mouth daily. Historical Provider, cholecalciferol (Vitamin D3) 200 Unit tablet split tablet Take by mouth. Historical Provider, enoxaparin (Lovenox) 40 MG/0.4ML solution prefilled syringe Inject 40 mg under the skin daily. Historical Provider, famotidine (Pepcid) 10 MG tablet Take 20 mg by mouth Nightly. Historical Provider, labetalol (Normodyne) 200 MG tablet Take 1 tablet (200 mg) by mouth 3 times daily. 12/24/22 06/22/23 Shahnaz Hahn DO levothyroxine (Synthroid, Levoxyl) 50 MCG tablet Take 50 mcg by mouth every morning (before breakfast). Historical Provider, magnesium oxide (Mag-Ox) 400 (240 Mg) MG tablet Take 1 tablet (400 mg) by mouth daily. Do not start before December 30, 2022. 12/30/22 Shaw Del Angel MD metFORMIN (Glucophage) 500 MG tablet Take 500 mg by mouth Once. Historical Provider, LQ-Bic-BC-[place]-3 ( GUMMIES/DHA & FA PO) Take 2 tablets by mouth daily. Historical ProviderMD sodium chloride 0.9 % nebulizer solution with albuterol (5 MG/ML) 0.5% nebulizer solution 0.9 mg/mL Inhale 2 puffs 4 times daily as needed. Historical ProviderMD CARE: Complicated by: maternal obesity REVIEW OF SYSTEMS: Pertinent items are noted in HPI. APPEARANCE: Pain: No PHYSICAL EXAM: Vital Signs: VS wnl-reviewed/Respiration s normal effort Vitals: 03/09/23 0005 Resp: 18 Temp: 36.8 ?C (98.2 ?F) TempSrc: Oral Abdomen: soft, NT, ND, no rebound/guarding Uterus: gravid/non-tender LE Edema: trace Speculum Exam: no pooling of fluid seen, vaginal discharge thick white discharge suspect yeast infection heart rate: Category I Cervix: Visually closed Contraction frequency: none Membranes: Intact RESULTS: NST: Reactive Procedures GENERAL LABS: No results found for this or any previous visit (from the past 24 hour(s)). TRIAGE COURSE: Breech on BSUS. Patient endorsing movement and movement noted on BSUS. Pelvic exam suspicious for yeast infection plan to send patient home with terazole cream. Patient overall feels reassured and will have patient follow up in the office ESSION: Decreased Movement Pain assessment and plan: None DISCUSSED WITH PNC PROVIDER: Dr. Montanez DISPOSITION: Discharge to Home [facility] Progress Noteon 03-05-2023 Automotive Maintenance Technician Authentication Interface Message Text Visit Subjective: Ambika Brown is being seen today for an obstetrical visit. She is at 28w4d gestation. Her obstetrical history is significant for: Recurrent loss- Antiphospholipid antibody syndrome with +Lupus anticoagulant Hx Pre-diabetes CHTN BMI >50 Chronic migraines HOSEA on CPAP Hypothyroidism Intermittent SVT and syncope with loop recorder in place history fully reviewed. Anxiety Vit D deficiency. history fully reviewed. Pt complains of arthralgias/myalgias, support belt endorsed. She is unaccompanied. Ambika denies any cramping, contractions, vaginal bleeding, unusual or increase in vaginal discharge, signs and symptoms of pre-eclampsia, or leaking of any fluid. Patient with positive movement. Review of Systems Musculoskeletal: Positive for arthralgias and myalgias. All other systems reviewed and are negative. Objective: BP 128/72 Pulse 98 Resp 20 Wt (!) 152.4 kg (335 lb 14.4 oz) SpO2 99% BMI 52.61 kg/m Physical Exam Nursing note and vitals reviewed. Constitutional: Appearance: She is well-developed and well-nourished. Pulmonary: Effort: Pulmonary effort is normal. Abdominal: Comments: gravid Musculoskeletal: General: Normal range of motion. Neurological: Mental Status: She is alert and oriented to person, place, and time. Skin: General: Skin is warm and dry. Psychiatric: Mood and Affect: Mood and affect normal. Behavior: Behavior normal. FHT: Positive Presentation: see ultrasound Uterine Size: see growth Ultrasound: see report Assessment/Plan: Ambika Brown is a 33 y.o. at 28w4d with: Active Non-Hospital Problems Diagnosis Date Noted Gestational diabetes mellitus (GDM) in third trimester controlled on oral hypoglycemic drug 03/05/2023 Pattern testing with elevated FBS 100%- pt would prefer metformin as previously discussed Metformin 500 mg to be initiated at , pt to send log in 1 week for review Reviewed on 03/05/2023 Abnormal glucose tolerance test in 02/06/2023 1 elevated value (FBS) on 3 hour GTT. Nutrition scheduled 02/20 Instructed on pattern testing- pt was on vacation so had not pattern tested. 02/19: Instructed to start testing at this time. Meeting with Nutrition tele tomorrow. Pt will send log for review in 1 week. Discussed possible med management with pt if needed. Reviewed metformin vs insulin management, risk/benefits. Pt would prefer to try metformin to start as she has used in the past, pt would also like to avoid more needle sticks if able as she is already using Lovenox. 03/05 pattern testing reviewed, GDM Reviewed on 03/05/2023 Vitamin D deficiency 11/06/2022 Vit D 19 on 10/06 Rec Vit D3 1000-2000IU daily- taking Plan repeat in 3 months- 02/01 WNL Reviewed on 03/05/2023 Disease of respiratory system affecting in second trimester 10/06/2022 Asthma Nervous system disease affecting in second trimester, antepartum 10/06/2022 migraines Supervision of other high risk pregnancies, second trimester 10/06/2022 PLAN OF CARE MD/OB APPOINTMENTS Genetic screening: see GC notes, unable to obtain NT How often should patient be evaluated? Monthly to 28 weeks, q 2 weeks from 28 to 36 weeks then weekly until delivery Work restrictions: NA EVALUATION surveillance: BPP twice weekly at 32 weeks Ultrasound: anatomy, growth every 4 weeks DELIVERY PLAN Hospital: [facility] Induction at 37 weeks (CHTN, hx)- pt would like to meet with closer to delivery (will have scheduled) GBS culture: Contraception: : Reviewed on 03/05/2023 Uncomplicated asthma Has inhaler for prn use No recent exacerbations Reviewed on 03/05/2023 Pre-existing hypertension during in second trimester CHTN- was on Metoprolol but stopped taking 10/05/21 BP cuff ordered. Instructed on BID BP check. Parameters to notify office 140/90 or greater. PEC labs ordered-Normal UPCR 0.15 Currently taking BASA -Monitor Bps at home. -Start meds for persistent HTN >140/90 -Beta blockade preferred to procardia given h/o SVT and ectopy -Serial growth every 4 weeks - testing at 32 weeks (once or twice weekly pending course). -Delivery by 38 weeks unless indicated sooner. 12/05: Pt met with Eva davies today- BP elevate in office, they will defer to MFM for management. Plans f/u PP. Rx sent for labetalol 100 mg BID. Pt to check BP at home and report next week for med adjustment if needed. Will plan for in office appt in 2 weeks for review. Precautions reviewed with pt, encouraged to call with any concerns. 12/18/22: just started Labetalol 100mg BID 12/16/22 BP 134/86. Pt will track BP BID at home and report 140/90 or greater 12/26: pt recently in triage with concerns for elevated BP at home, BP WNL in triage. PC ratio 0.47 in triage. Labetalol dose adjusted to 200 mg (more content not included)... Normal [facility] Office Visiton 02-19-2023 Follow-up visit [id number] Britton Brown 1990 F Date Provider Department Center 02/19/2023 [id number] None Chart Close Cosign Accepted by: CARIDAD GREGORIO[DARBY] Chart Close Cosign Accepted on: SunFeb 19, 2023 10:59 AM Family History Problem Relation Age of Onset Hypertension Mother Diabetes Paternal Grandmother Diabetes Paternal Grandfather Diabetes Maternal Grandfather Diabetes Maternal Grandmother Hypertension Father Family Status - Relation Status Age at Mother Paternal Grandmother Paternal Grandfather Maternal Grandfather Maternal Grandmother Father Level of Service:06137 ND OFFICE/OUTPT VISIT,PROCEDURE ONLY Reason for Visit and Comments: OMT [Other] - Patient here for OMT on right shoulder and neck. [facility] PATINSon 02-19-2023 LAYLA Thank you for visiti ng the [facility] today! Please do not hesitate to call with any questions or concerns that you may have about items discussed at today's visit. -Brando Greene DO [facility] [address] [place] [address] [facility] Progress Noteon 02-19-2023 Automotive Maintenance Technician Authentication Interface Message Text Visit Subjective: Ambika Brown is being seen today for an obstetrical visit. She is at 26w4d gestation. Her obstetrical history is significant for: Recurrent loss- Antiphospholipid antibody syndrome with +Lupus anticoagulant Hx Pre-diabetes CHTN BMI >50 Chronic migraines HOSEA on CPAP Hypothyroidism Intermittent SVT and syncope with loop recorder in place history fully reviewed. Anxiety Vit D deficiency. history fully reviewed. Pt was recently on vacation with little diet control, has not been pattern testing. Encouraged pt to initiate pattern testing today, she has Nutrition scheduled for tomorrow. Will plan to send log for review in 1 week. She is unaccompanied. Ambika denies any cramping, contractions, vaginal bleeding, unusual or increase in vaginal discharge, signs and symptoms of pre-eclampsia, or leaking of any fluid. Patient with positive movement. Review of Systems All other systems reviewed and are negative. Objective: BP 122/74 Pulse 97 Resp 18 Wt (!) 152.6 kg (336 lb 8 oz) SpO2 97% BMI 52.70 kg/m Physical Exam Nursing note and vitals reviewed. Constitutional: Appearance: She is well-developed and well-nourished. Pulmonary: Effort: Pulmonary effort is normal. Abdominal: Comments: gravid Musculoskeletal: General: Normal range of motion. Neurological: Mental Status: She is alert and oriented to person, place, and time. Skin: General: Skin is warm and dry. Psychiatric: Mood and Affect: Mood and affect normal. Behavior: Behavior normal. FHT: Positive Assessment/Plan: Ambika Brown is a 32 y.o. at 26w4d with: Active Non-Hospital Problems Diagnosis Date Noted Abnormal glucose tolerance test in 02/06/2023 1 elevated value (FBS) on 3 hour GTT. Nutrition scheduled 02/20 Instructed on pattern testing- pt was on vacation so had not pattern tested. 02/19: Instructed to start testing at this time. Meeting with Nutrition tele tomorrow. Pt will send log for review in 1 week. Discussed possible med management with pt if needed. Reviewed metformin vs insulin management, risk/benefits. Pt would prefer to try metformin to start as she has used in the past, pt would also like to avoid more needle sticks if able as she is already using Lovenox. Reviewed on 02/19/2023 Vitamin D deficiency 11/06/2022 Vit D 19 on 10/06 Rec Vit D3 1000-2000IU daily- taking Plan repeat in 3 months- 02/01 WNL Reviewed on 02/19/2023 Disease of respiratory system affecting in second trimester 10/06/2022 Asthma Nervous system disease affecting in second trimester, antepartum 10/06/2022 migraines Supervision of other high risk pregnancies, second trimester 10/06/2022 PLAN OF CARE MD/OB APPOINTMENTS Genetic screening: see GC notes, unable to obtain NT How often should patient be evaluated? Monthly to 28 weeks, q 2 weeks from 28 to 36 weeks then weekly until delivery Work restrictions: NA EVALUATION surveillance: BPP twice weekly at 32 weeks Ultrasound: anatomy, growth every 4 weeks DELIVERY PLAN Hospital: [facility] Induction at 37 weeks (CHTN, hx)- GBS culture: Contraception: : Reviewed on 02/19/2023 Uncomplicated asthma Has inhaler for prn use No recent exacerbations Reviewed on 02/19/2023 Pre-existing hypertension during in second trimester CHTN- was on Metoprolol but stopped taking 10/05/21 BP cuff ordered. Instructed on BID BP check. Parameters to notify office 140/90 or greater. PEC labs ordered-Normal UPCR 0.15 Currently taking BASA -Monitor Bps at home. -Start meds for persistent HTN >140/90 -Beta blockade preferred to procardia given h/o SVT and ectopy -Serial growth every 4 weeks - testing at 32 weeks (once or twice weekly pending course). -Delivery by 38 weeks unless indicated sooner. 12/05: Pt met with Eva cardio today- BP elevate in office, they will defer to MFM for management. Plans f/u PP. Rx sent for labetalol 100 mg BID. Pt to check BP at home and report next week for med adjustment if needed. Will plan for in office appt in 2 weeks for review. Precautions reviewed with pt, encouraged to call with any concerns. 12/18/22: just started Labetalol 100mg BID 12/16/22 BP 134/86. Pt will track BP BID at home and report 140/90 or greater 12/26: pt recently in triage with concerns for elevated BP at home, BP WNL in triage. PC ratio 0.47 in triage. Labetalol dose adjusted to 200 mg TID. BP stable today in office. BP correlated with home cuff and readings not similar. Pt to return home cuff. Precautions reviewed with pt and encouraged pt to take BP at drug store until new cuff received. Will correlate new cuff at future appt. 02/19: BP stable on Labetalol 200 mg TID at this time. Precautions reviewed, continue to monitor Reviewed on 02/19/2023 Maternal card (more content not included)... Normal [facility] Progress Note I saw and evaluated the patient, participating in the pedersen portions of the service. I reviewed the resident?s note. I agree with the resident?s findings and plan. Caridad Gregorio MD [facility] Progress Note Prechart note: (the following data was documented before the visit began) Rooming: omt room Possible agenda: omt Provider notes: Headaches last omt 01/22 Multidisciplinary team needs: Health Maintenance to be addressed today: Health Maintenance Due Topic Lipid Panel Diabetes: Foot Exam Diabetes: Dental Exam Depression Screening COVID-19 Vaccine (2 - Booster for Moderna series) Cervical Cancer Screening Varicella Vaccines (1 of 2 - 2-dose childhood series) Diabetes: Hemoglobin A1C (end precharting)- [facility] [address] [facility] [address] Dept: [phone] Dept Elroy Brown is a 32 y.o. year old who presents to the office with the following reason for visit: Chief Complaint Patient presents with OMT Patient here for OMT on right shoulder and neck. -had OMT 1 month ago -head, neck for migraines -currently 26 wks -does get some numbness/tingling into arms but has hx of carpel tunnel Review of Systems Patient Active Problem List Diagnosis Infertility, female Obesity GERD (gastroesophageal reflux disease) Left-sided weakness Mild intermittent asthma without complication Migraine Hemiplegic migraine without status migrainosus, not intractable Chronic migraine without aura Somatic dysfunction of head region Somatic dysfunction of cervical region Somatic dysfunction of thoracic region Somatic dysfunction of both upper extremities Somatic dysfunction of both lower extremities Family History Problem Relation Name Age of Onset Hypertension Mother Diabetes Paternal Grandmother Diabetes Paternal Grandfather Diabetes Maternal Grandfather Diabetes Maternal Grandmother Hypertension Father Social History Tobacco Use Smoking status: Never Smokeless tobacco: Never Substance Use Topics Alcohol use: No Current Outpatient Medications on File Prior to Visit Medication Sig Dispense Refill ascorbic acid (Vitamin C) 500 MG tablet Take 500 mg by mouth 2 times daily. aspirin 81 MG EC tablet Take 162 mg by mouth daily. cholecalciferol (Vitamin D3) 200 Unit tablet split tablet Take by mouth. enoxaparin (Lovenox) 40 MG/0.4ML solution prefilled syringe Inject 40 mg under the skin daily. labetalol (Normodyne) 200 MG tablet Take 1 tablet (200 mg) by mouth 3 times daily. 90 tablet 5 levothyroxine (Synthroid, Levoxyl) 50 MCG tablet Take 50 mcg by mouth every morning (before breakfast). magnesium oxide (Mag-Ox) 400 (240 Mg) MG tablet Take 1 tablet (400 mg) by mouth daily. Do not start before December 30, 2022. 30 tablet 11 ER-Jeg-QK-[place]-3 ( GUMMIES/DHA & FA PO) Take 2 tablets by mouth daily. sodium chloride 0.9 % nebulizer solution with albuterol (5 MG/ML) 0.5% nebulizer solution 0.9 mg/mL Inhale 2 puffs 4 times daily as needed. No current facility-administered medications on file prior to visit. Allergies Allergen Reactions Prochlorperazine Anxiety Other reaction(s): anxiety, Other, Other: See Comments Other reaction(s): Other: See Comments Compazine Diphenhydramine Palpitations Objective BP 110/85 (BP Location: Right arm, Patient Position: Sitting, BP Cuff Size: Adult) Pulse 89 Temp 36.6 ?C (97.8 ?F) (Temporal) Ht 5' 7.5 (1.715 m) Wt (!) 335 lb (152 kg) BMI 51.69 kg/m? Physical Exam Osteopathic Exam: Region All Texture Asymmetry Restriction Tenderness Laterality Comments Head [x] [] [] [] [] [x]R [x]L Cervical [x] [] [] [] [] [x]R [x]L Thoracic [x] [] [] [] [] [x]R [x]L Lumbar [] [] [] [] [] []R []L Sacrum [] [] [] [] [] []R []L Innominate/Pelvis [] [] [] [] [] []R []L Ribcage [] [] [] [] [] []R []L Viscera/ abdomen [] [] [] [] [] []R []L Upper extremity [] [] [] [] [] []R []L Lower extremity [] [] [] [] [] []R []L Assessment/Plan 1. Chronic migraine without aura without status migrainosus, not intractable 2. Somatic dysfunction of head region 3. Somatic dysfunction of cervical region 4. Somatic dysfunction of thoracic region Region Technique Response Soft Tissue Myofascial release HVLA Muscle Energy FPR/BLT/ Still's Functional Visceral/ Lymphatic Other Improved/ Unchanged Head [x] [] [] [] [] [] [] [x] I [] U Cervical [x] [] [] [] [] [] [] [x] I [] U Thoracic [x] [] [] [] [] [] [] [x] I [] U Lumbar [] [] [] [] [] [] [] [] I [] U Sacrum [] [] [] [] [] [] [] [] I [] U Innominate/Pelvis [] [] [] [] [] [] [] [] I [] U Ribcage [] [] [] [] [] [] [] [] I [] U Viscera/ abdomen [] [] [] [] [] [] [] [] I [] U Upper extremity [] [] [] [] [] [] [] [] I [] U Lower extremity [] [] [] [] [] [] [] [] I [] U Patient tolerated OMT with good corrections noted. Post-treatment pain scale improved Post-procedure counseling: [] Heat 20 min TID, [x] Stretching, [x] Postural retraining, [x] Adequate hydration to prevent treatment reaction [] Follow up with PCP to review treatment (more content not included)... Normal [facility] Quantitative serum or plasma 3 hour gestational glucose tolerance panelon 02-06-2023 Glucose tolerance 3 hours gestational panel See comment [facility] Comment on above: FASTING 111 H Col: 0 02/06/23 0829GLUCOSE TOLERANCE TEST FOR Reference Interval GESTATIONAL DIABETES Fasting <105 mg/dL 1 hour <190 mg/dl 2 hour <165 mg/dl 3 hour <145 mg/dl 1 HR GLU 178 Col: 02/06/23 0934 2 HR GLU 151 Col: 02/06/23 1033 3 HR GLU 110 Col: 02/06/23 1132 Basic Metabolic Panelon 01-09 Calcium [Mass/Vol] 9.1 mg/dL Normal 7.6-11.0 [facility] Comment on above: Order Comment: Relea se to patient->Automatic 41911&Blood Performed By: #### B MP #### [address] [address] CO2 [Moles/Vol] 20.1 mmol/L Low 22.0-29.0 [facility] Comment on above: Order Comment: Relea se to patient->Automatic 02868&Blood Performed By: #### B MP #### [address] [address] Creatinine [Mass/Vol] 0.53 mg/dL Normal 0.50-1.[address] [facility] Comment on above: Order Comment: Relea se to patient->Automatic 89173&Blood Performed By: #### B MP #### [address] [address] Glucose [Mass/Vol] 151 mg/dL High 70-99 [facility] Comment on above: Order Comment: Relea se to patient->Automatic 45911&Blood Result Comment: Crit eria for Diagnosis of Diabetes: Fasting Specimen (no caloric intake for at least 8 hours): <100 mg/dL Normal 100-125 mg/dL Increased risk for Diabetes >125 mg/dL Diagnostic for Diabetes Random Glucose (any time of day without regard to last meal): > or = 200 mg/dL plus Classic Symptoms of Diabetes Performed By: #### B MP #### [address] [address] Urea nitrogen [Mass/Vol] 6 mg/dL Normal 4-19 [facility] Comment on above: Order Comment: Relea se to patient->Automatic 19969&Blood Performed By: #### B MP #### [address] [address] Chloride [Moles/Vol] 104 mmol/L Normal 96-108 [facility] Comment on above: Order Comment: Relea se to patient->Automatic 36423&Blood Performed By: #### B MP #### [address] [address] Potassium [Moles/Vol] 3.7 mmol/L Normal 3.3-5.[address] [facility] Comment on above: Order Comment: Relea se to patient->Automatic 20449&Blood Performed By: #### B MP #### [address] [address] Sodium [Moles/Vol] 137 mmol/L Normal 133-145 [facility] Comment on above: Order Comment: Relea se to patient->Automatic 86066&Blood Performed By: #### B MP #### [address] [address] Complete Blood Counton 02-01 Differential Complete Manual Normal [facility] Comment on above: Order Comment: Relea se to patient->Automatic 81682&Blood Performed By: #### C BC #### [address] [address] Erythrocyte distribution width (RBC) [Ratio] 15.8 % High 0.0-14.4 [facility] Comment on above: Order Comment: Relea se to patient->Automatic 58084&Blood Performed By: #### C BC #### [address] [id number] Hematocrit (Bld) [Volume fraction] 35.3 % Low 36.0-44.0 [facility] Comment on above: Order Comment: Relea se to patient->Automatic 06363&Blood Performed By: #### C BC #### [place] [address] Hemoglobin (Bld) [Mass/Vol] 11.9 g/dL Low 12.0-15.0 [facility] Comment on above: Order Comment: Relea se to patient->Automatic 97878&Blood Performed By: #### C BC #### [place] [address] Immature granulocytes/100 WBC (Bld) 0.50 % Normal [facility] Comment on above: Order Comment: Relea se to patient->Automatic 86538&Blood Result Comment: Klaudia ture Granulocyte Percent includes promyelocytes, myelocytes, and metamyelocytes. IG% > 1.0 indicates a left shift is present. With automated differentials, bands are included in the neutrophil count and not in the Immature Granulocyte Percent. Performed By: #### C BC #### [place] [address] MCH (RBC) [Entitic mass] 27.1 pg Normal 26.0-34.0 [facility] Comment on above: Order Comment: Relea se to patient->Automatic 62623&Blood Performed By: #### C BC #### [address] [address] MCHC 33.7 % Normal 31.0-37.0 [facility] Comment on above: Order Comment: Relea se to patient->Automatic 05249&Blood Performed By: #### C BC #### [address] [id number] MCV (RBC) [Entitic vol] 80.4 fL Normal 80.0-100.0 [facility] Comment on above: Order Comment: Relea se to patient->Automatic 36547&Blood Performed By: #### C BC #### [address] [address] Nucleated RBC/100 WBC (Bld) [Ratio] 0.0 % Normal -1.0-0.0 [facility] Comment on above: Order Comment: Relea se to patient->Automatic 47709&Blood Performed By: #### C BC #### [address] [address] Platelet mean volume (Bld) [Entitic vol] 12.0 fL Normal [facility] Comment on above: Order Comment: Relea se to patient->Automatic 52752&Blood Result Comment: MPV is platelet range and age dependent Performed By: #### C BC #### [address] [address] Platelets (Bld) [#/Vol] 197 10*3/uL Normal 150-450 [facility] Comment on above: Order Comment: Relea se to patient->Automatic 87899&Blood Performed By: #### C BC #### [address] [address] RBC 4.39 10E12/L Normal 4.00-4.90 [facility] Comment on above: Order Comment: Relea se to patient->Automatic 45193&Blood Performed By: #### C BC #### [address] [address] WBC (Bld) [#/Vol] 15.1 10*3/uL High 4.5-11.0 [facility] Comment on above: Order Comment: Relea se to patient->Automatic 45960&Blood Performed By: #### C BC #### [address] [id number] MFM-Glucose Challenge, 1 Yary leoncio 02-01-2023 Glucose [Mass/Vol] 148 mg/dL High 70-139 [facility] Comment on above: Order Comment: Relea se to patient->Automatic 22917&Blood Result Comment: If > or = 140 mg/dL proceed to a 100 gram oral glucose tolerance test (OGTT). Performed By: #### B MP #### [address] [address] Magnesiumon 02-01-2023 Magnesium [Mass/Vol] 1.9 mg/dL Normal 1.5-2.2 [facility] Comment on above: Order Comment: Relea se to patient->Automatic 51520&Blood Performed By: #### B MP #### [address] [address] Manual Differentialon 2022 Absolute Neutrophil No. 12.1 10E3/uL High 2.0-7.2 [facility] Comment on above: Order Comment: Relea se to patient->Automatic 15211&Blood Performed By: #### B MP #### [address] [address] Anisocytosis Slight Normal [facility] Comment on above: Order Comment: Relea se to patient->Automatic 08440&Blood Performed By: #### B MP #### [address] [address] Band Neutrophils 1 % Low 5-11 [facility] Comment on above: Order Comment: Relea se to patient->Automatic 04810&Blood Performed By: #### B MP #### [address] [address] Eosinophils 2 % Normal 0-3 [facility] Comment on above: Order Comment: Relea se to patient->Automatic 53784&Blood Performed By: #### B MP #### [address] [address] Hypochromia Occasional Normal [facility] Comment on above: Order Comment: Relea se to patient->Automatic 05900&Blood Performed By: #### B MP #### [address] [address] Lymphocytes 16 % Low 24-44 [facility] Comment on above: Order Comment: Relea se to patient->Automatic 92359&Blood Performed By: #### B MP #### [address] [address] Metamyelocytes 0 % Normal 0-0 [facility] Comment on above: Order Comment: Relea se to patient->Automatic 31558&Blood Performed By: #### B MP #### [address] [address] Monocytes 2 % Low 3-6 [facility] Comment on above: Order Comment: Relea se to patient->Automatic 53858&Blood Performed By: #### B MP #### [address] [address] Myelocytes 0 % Normal 0-0 [facility] Comment on above: Order Comment: Relea se to patient->Automatic 41199&Blood Performed By: #### B MP #### [address] [address] Poikilocytosis Occasional Normal [facility] Comment on above: Order Comment: Relea se to patient->Automatic 52185&Blood Result Comment: Occa sional # Teardrop Cells Performed By: #### B MP #### [address] [address] Polychromasia Occasional Normal [facility] Comment on above: Order Comment: Relea se to patient->Automatic 62808&Blood Performed By: #### B MP #### [address] [address] Promyelocytes 0 % Normal 0-0 [facility] Comment on above: Order Comment: Relea se to patient->Automatic 92009&Blood Performed By: #### B MP #### [facility] [address] [place] [address] Segmented Neutrophils 79 % High 35-66 [facility] Comment on above: Order Comment: Relea se to patient->Automatic 82605&Blood Performed By: #### B MP #### [facility] [address] [place] [address] Progress Noteon 02-01-2023 Automotive Maintenance Technician Authentication Interface Message Text Visit Subjective: Ambika Brown is being seen today for an obstetrical visit. She is at 24w0d gestation. Her obstetrical history is significant for: Recurrent loss- Antiphospholipid antibody syndrome with +Lupus anticoagulant Hx Pre-diabetes CHTN BMI >50 Chronic migraines [place] on CPAP Hypothyroidism Intermittent SVT and syncope with loop recorder in place history fully reviewed. Anxiety Vit D deficiency history fully reviewed. She is unaccompanied. Ambika denies any cramping, contractions, vaginal bleeding, unusual or increase in vaginal discharge, signs and symptoms of pre-eclampsia, or leaking of any fluid. Patient with positive movement. Review of Systems All other systems reviewed and are negative. Objective: BP 124/72 Pulse 89 Resp 18 Wt (!) 151.7 kg (334 lb 8 oz) SpO2 98% BMI 52.39 kg/m Physical Exam Nursing note and vitals reviewed. Constitutional: Appearance: She is well-developed and well-nourished. Pulmonary: Effort: Pulmonary effort is normal. Abdominal: Comments: gravid Musculoskeletal: General: Normal range of motion. Neurological: Mental Status: She is alert and oriented to person, place, and time. Skin: General: Skin is warm and dry. Psychiatric: Mood and Affect: Mood and affect normal. Behavior: Behavior normal. FHT: Positive Presentation: see ultrasound Uterine Size: see growth Ultrasound: see report Assessment/Plan: Ambika Brown is a 32 y.o. at 24w0d with: Active Non-Hospital Problems Diagnosis Date Noted Vitamin D deficiency 11/06/2022 Vit D 19 on 10/06 Rec Vit D3 1000-2000IU daily- taking Plan repeat in 3 months- ordered for today Reviewed on 02/01/2023 Disease of respiratory system affecting in second trimester 10/06/2022 Asthma Nervous system disease affecting in second trimester, antepartum 10/06/2022 migraines Supervision of other high risk pregnancies, second trimester 10/06/2022 PLAN OF CARE MD/OB APPOINTMENTS Genetic screening: see GC notes, unable to obtain NT How often should patient be evaluated? Monthly to 28 weeks, q 2 weeks from 28 to 36 weeks then weekly until delivery Work restrictions: NA EVALUATION surveillance: BPP twice weekly at 32 weeks Ultrasound: anatomy, growth every 4 weeks DELIVERY PLAN Hospital: [facility] Induction at 37 weeks (CHTN, hx)- GBS culture: Contraception: : Reviewed on 02/01/2023 Uncomplicated asthma Has inhaler for prn use No recent exacerbations Reviewed on 02/01/2023 Pre-existing hypertension during in second trimester CHTN- was on Metoprolol but stopped taking 10/05/21 BP cuff ordered. Instructed on BID BP check. Parameters to notify office 140/90 or greater. PEC labs ordered-Normal UPCR 0.15 Currently taking BASA -Monitor Bps at home. -Start meds for persistent HTN >140/90 -Beta blockade preferred to procardia given h/o SVT and ectopy -Serial growth every 4 weeks - testing at 32 weeks (once or twice weekly pending course). -Delivery by 38 weeks unless indicated sooner. 12/05: Pt met with [facility] today- BP elevate in office, they will defer to MFM for management. Plans f/u PP. Rx sent for labetalol 100 mg BID. Pt to check BP at home and report next week for med adjustment if needed. Will plan for in office appt in 2 weeks for review. Precautions reviewed with pt, encouraged to call with any concerns. 12/18/22: just started Labetalol 100mg BID 12/16/22 BP 134/86. Pt will track BP BID at home and report 140/90 or greater 12/26: pt recently in triage with concerns for elevated BP at home, BP WNL in triage. PC ratio 0.47 in triage. Labetalol dose adjusted to 200 mg TID. BP stable today in office. BP correlated with home cuff and readings not similar. Pt to return home cuff. Precautions reviewed with pt and encouraged pt to take BP at drug store until new cuff received. Will correlate new cuff at future appt. 02/01: BP stable on Labetalol 200 mg TID at this time. Precautions reviewed, continue to monitor Reviewed on 02/01/2023 Maternal cardiovascular disease, antepartum, second trimester PVCs/ palpitations, Intermittent SVT Syncopal episodes Structurally normal heart, normal stress test, normal head imaging EP attempted Ablation- however, could not elicit any dysrhytmia to ablate. No syncope since 06/2022. Implantable loop recorder placed 08/2022. Follows with Dr Conrad, [facility]- appt December 05- no changes at appt, f/u PP -Continue close co-management with cardiology -If treatment needed, beta blockade preferred (metoprolol, labetalol). -check electrolytes qtrimester or more frequent with symptoms, maintain Mag level >2.0. ordered 02/01 Maternal morbid obesity, antepartum, second trimester PP BMI 51 A1C 6.2 in 08/202210/06/22 A1C 5.8 Early 1 hr ordered- 10/06 (more content not included)... Normal [facility] TSH with reflex T4FRon 02-01 TSH with reflex T4FR 2.350 uIU/mL Normal 0.300-4.200 [facility] Comment on above: Order Comment: Relea se to patient->[id number]&Blood Performed By: #### T SHR ####[address] [id number] Vitamin D 25 OHon 02-01-2023 25 OH Vitamin D 32 ng/mL Normal 30-100 [facility] Comment on above: Order Comment: Relea se to patient->Automatic 28531&Blood Result Comment: Refe rence ranges provided by [facility] are based on Endocrine Society Guidelines: Level: Characterization < 21 ng/mL: Vitamin D deficiency 21-29 ng/mL: Suboptimal Vitamin D status 30-100 ng/mL: Optimal Vitamin D status >100 ng/mL: Potentially toxic Vitamin D effects Performed By: #### B MP #### [address] [address] Progress Noteon 01-24-2023 Automotive Maintenance Technician Authentication Interface Message Text New patient 01/25/2023 RE: Ambika Brown : 1990 AGE: 32 y.o. [facility]#: [id number] Gestational Age: 23 Weeks Delivery Hospital: [facility] Reason for visit: Chief Complaint Patient presents with ECHO echo, suboptimal cardiac views. Mother remains on labetalol for systemic hypertension since , Synthroid for hypothyroidism for past 2 years. Other indications:Limited Cardiac Views on Obstetrical Ultrasound OB History 6 Para 0 Term 0 0 AB 5 Living 0 SAB 4 IAB 0 Ectopic 1 Multiple 0 Live Births 0 Counseling and/or coordination of care (face to face time in the office/outpatient setting or floor/unit time in the hospital) was greater than 40 minutes which is more than 50% of the total time of 60 minutes spent on the encounter. In addition, the following items were performed before, during, and after this visit: Synthesis of current imaging findings. Results for orders placed or performed in visit on 01/24/23 Echo New Narrative [facility] [address] [email or web address] Echocardiogram Report M-mode, complete 2D, complete spectral Doppler, and color Doppler PATIENT: Ambika Brown STUDY DATE/TIME: Jan 24 2023 3:23PM HEIGHT: : 1990 WEIGHT: AGE: 32yr BSA/BMI: / GENDER: F BP: 144 / 76 LOCATION: [facility] REFERRING PHYSICIAN: GIANNA Montanez PROVIDER: Jody Montanez READING PHYSICIAN: OCTAVIA Mittal GLUING MACHINE OPERATOR: Angle Briceno RDCS SUMMARY: No significant congenital heart disease identified. 1. Normal echocardiogram. 2. Normal biventricular size and function. 3. No atrioventricular valve regurgitation. 4. Normal three vessel view. 5. Normally related great arteries. 6. Left aortic arch with left patent ductus arteriosus. 7. Normal systemic and pulmonary venous connections. 8. This study is limited in evaluating minor valve abnormalities, septal defects, partial anomalous pulmonary venous connection, and aortic arch abnormalities. 9. The above findings, including the limitations, were discussed with the patient. 10. Difficult windows due to maternal habitus. Recommendations: follow-up if clinical staff pharmacist hears a heart murmur or otherwise clinically indicated. REASON FOR EXAM: Suboptimal cardiac views. Mother is on labetalol fro hypertension, Synthroid for hypothyroidism. On aspirin, multiple spontaneous abortions at few weeks of age. STUDY AND PROCEDURE DATA: Procedure Description: Juancarlos ([id number]) . Study status: Routine. Location: lab. Procedure: Transabdominal echocardiography for congenital heart disease evaluation. Patient status: Outpatient. Blood pressure: 144/76 Maternal age: 32yr. : 6. Parity: 0. Expected delivery date: 05/24/2023. Gestational age: 22wk. Trimester: 2nd trimester. FINDINGS: DESCRIPTION One fetus is present. Normal three vessel view, main pulmonary artery 5.3 mm, aorta 4.5 mm and superior vena cava 3.5 mm. The rhythm is sinus rhythm, with a heart rate of 149bpm. The position is vertex. Normal Doppler pattern of the ductus venosus, umbilical artery, and vein. Three vessel cord. ANATOMIC RELATIONSHIPS - Normal visceral situs, with left sided stomach. Left sided cardiac apex (levocardia).Normally related great vessels. VEINS AND ATRIA Atrial septum - There is a patent foramen ovale. There is a [id number] shunt. Left atrium - The atrium is normal in size. Right atrium - The atrium is normal in size. Systemic veins - Inferior vena cava and superior vena cava seen entering normally into the right atrium. Pulmonary veins: There are at least 2 out of 4 pulmonary veins seen entering normally into the left atrium, with normal Doppler pattern. A-V CANAL Tricuspid valve - The valve is structurally normal. - There is normal biphasic inflow spectral Doppler. There is no regurgitation. Mitral valve - The valve is structurally normal. - There is normal biphasic inflow spectral Doppler. There is no regurgitation. VENTRICLES Right ventricle - The cavity size is normal. Wall thickness is normal. Systolic function is qualitatively normal. Left ventricle - The cavity size is normal. Wall thickness is normal. Systolic function is quantitatively normal. The endocardial fractional shortening (MM) is 39%. CONOTRUNCUS Aortic valve - The valve is structurally normal. - There is no stenosis. There (more content not included)... Normal [facility] studies (set)on 0 01-23-2023 25-Hydroxy Vitamin D Total 32.8 ng/mL 30-100 [facility] Work Phone: Comment on above: Interpretation of Vi tD results: Adult: <20 ng/mL Deficient 20 - <30 ng/mL Insufficiency 30 - 100 ng/mL Sufficiency Pediatric: <15 ng/mL Deficient 15 - <20 ng/mL Insufficiency 20 - 100 ng/mL Sufficiency Cholesterol [Mass/Vol] 139 mg/dL 0-200 [facility] Work Phone: Cholesterol in HDL [Mass/Vol] 56 mg/dL 40-60 [facility] Work Phone: Cholesterol in LDL [Mass/Vol] 61 mg/dL 0-130 [facility] Work Phone: Cholesterol in VLDL [Mass/Vol] 22 mg/dL 5-40 [facility] Work Phone: Cholesterol/HDL Ratio 2.5 mg/dl 3.7-5.6 [facility] Work Phone: Cobalamin (Vitamin B12) [Mass/Vol] 302 pg/mL [phone] [facility] Work Phone: Eosinophils/100 WBC (Bld) 4 % 0-8 [facility] Work Phone: Estimated Average Glucose 123 [facility] Work Phone: HbA1c (Bld) [Mass fraction] 5.9 % [facility] Work Phone: Comment on above: Interpretation of Hg b A1C results: <5.7% Normal 5.7% - 6.4% Prediabetes >6.4% Diabetes SAMPLES FROM PATIENTS WITH HEMOLYTIC ANEMIAS OR THE PRESENCE OF UNSTABLE HEMOGLOBINS LIKE HbSS OR HbSC WILL EXHIBIT DECREASED GLYCATED HGB DUE TO THE SHORTENED LIFE SPAN OF THE RED CELLS.RESULTS ARE NOT RELIABLE IN PATIENTS WITH CHRONIC BLOOD LOSS. Insulin Qn 98.8 u[IU]/mL High 3.0-25.0 [facility] Work Phone: Comment on above: Test Performed By: [facility] [address] [place] [address] Metal Turner: Keyur Green III, M.D. Thyroid Stimulating Hormone (TSH) 2.210 uIU/mL 0.358-3.74 [facility] Work Phone: Triglyceride [Mass/Vol] 108 mg/dL 0-150 [facility] Work Phone: Office Visiton 01-22-2023 Follow-up visit [id number] Britton Brown 1990 F Date Provider Department [place] 01/22/[address] [place] [address] None Family History Problem Relation Age of Onset Hypertension Mother Diabetes Paternal Grandmother Diabetes Paternal Grandfather Diabetes Maternal Grandfather Diabetes Maternal Grandmother Hypertension Father Family Status - Relation Status Age at Mother Paternal Grandmother Paternal Grandfather Maternal Grandfather Maternal Grandmother Father Level of Service:89515 ND OFFICE/OUTPT VISIT,PROCEDURE ONLY Reason for Visit and Comments: Headache [52] Normal [facility] Progress Noteon 01-22-2023 Progress Note Prechart note: (the following data was documented before the visit began) Rooming: OMT Possible agenda: OMT headache Provider notes: patient for OMT appointment Multidisciplinary team needs: none Health Maintenance to be addressed today: none Health Maintenance Due Topic Lipid Panel Diabetes: Foot Exam Diabetes: Dental Exam Depression Screening Diabetes: Urine Protein Screening COVID-19 Vaccine (2 - Moderna series) Cervical Cancer Screening Varicella Vaccines (1 of 2 - 2-dose childhood series) Diabetes: Hemoglobin A1C (end [facility] [address] [facility] [address] Dept: [phone] Dept Subjective Ambika Brown is a 32 y.o. year old who presents to the office with the following reason for visit: No chief complaint on file. Consult while hospitalized for OMT for chronic headache May 25 due date Headache: chronic, some headache free days since hospitalized 3AM throbbing headache last night Sleeping on side OMT helped IV solumedrol helped OMT H&P: Location: head Quality: throbbing Severity: moderate 12/18 Radiation: none Aggravating factors: nothing in particular and poor sleep follows with neurology- botox injections prior to Relieving factor(s): botox, omt, solumedrol Onset: migraines for years Timing: frequent Imaging: MRI brain normal 12/26/22 Specialist Eval: follows with neurology Prior OMT: while hospitalized Treatments tried: botox, OMT Osteopathic Red Flags: none Negative for: cancer, spinal osteomyelitis, spinal fracture, herniated disc and ankylosing spondylitis, or cauda equina syndrome Review of Systems Constitutional: Negative for appetite change, chills, fatigue and fever. Eyes: Negative for visual disturbance. Respiratory: Negative for cough, chest tightness and shortness of breath. Cardiovascular: Negative for chest pain, palpitations and leg swelling. Gastrointestinal: Negative for abdominal distention, abdominal pain, blood in stool, constipation, diarrhea and nausea. Endocrine: Negative for polydipsia, polyphagia and polyuria. Genitourinary: Negative for difficulty urinating, dysuria and hematuria. Musculoskeletal: Negative for back pain, joint swelling and myalgias. Neurological: Negative for dizziness, light-headedness and headaches. Patient Active Problem List Diagnosis Infertility, female Obesity GERD (gastroesophageal reflux disease) Left-sided weakness Mild intermittent asthma without complication Migraine Hemiplegic migraine without status migrainosus, not intractable Chronic migraine without aura Somatic dysfunction of head region Somatic dysfunction of cervical region Somatic dysfunction of thoracic region Somatic dysfunction of both upper extremities Somatic dysfunction of both lower extremities Family History Problem Relation Name Age of Onset Hypertension Mother Diabetes Paternal Grandmother Diabetes Paternal Grandfather Diabetes Maternal Grandfather Diabetes Maternal Grandmother Hypertension Father Social History Tobacco Use Smoking status: Never Smokeless tobacco: Never Substance Use Topics Alcohol use: No Current Outpatient Medications on File Prior to Visit Medication Sig Dispense Refill ascorbic acid (Vitamin C) 500 MG tablet Take 500 mg by mouth 2 times daily. aspirin 81 MG EC tablet Take 162 mg by mouth daily. cholecalciferol (Vitamin D3) 200 Unit tablet split tablet Take by mouth. enoxaparin (Lovenox) 40 MG/0.4ML solution prefilled syringe Inject 40 mg under the skin daily. labetalol (Normodyne) 200 MG tablet Take 1 tablet (200 mg) by mouth 3 times daily. 90 tablet 5 levothyroxine (Synthroid, Levoxyl) 50 MCG tablet Take 50 mcg by mouth every morning (before breakfast). magnesium oxide (Mag-Ox) 400 (240 Mg) MG tablet Take 1 tablet (400 mg) by mouth daily. Do not start before December 30, 2022. 30 tablet 11 OB-Qry-YE-[place]-3 ( GUMMIES/DHA & FA PO) Take 2 tablets by mouth daily. sodium chloride 0.9 % nebulizer solution with albuterol (5 MG/ML) 0.5% nebulizer solution 0.9 mg/mL Inhale 2 puffs 4 times daily as needed. No current facility-administered medications on file prior to visit. Allergies Allergen Reactions Compazine [Prochlorperazine] Anxiety Diphenhydramine Palpitations Objective BP 116/74 (BP Location: Left arm, Patient Position: Sitting, BP Cuff Size: Large adult) Pulse 96 Temp 36.1 ?C (97 ?F) Wt (!) 336 lb 6.4 oz (153 kg) BMI 51.91 kg/m? Physical Exam Motor exam: normal 5/5 strength in all tested muscle groups Sensation: intact Osteopathic Exam: Region All Texture Asymmetry Restriction Tenderness Laterality Comments Head [x] [] [] [] [] []R []L Cervical [x] [] [] [] [] []R []L Thoracic [x] [] [] [] [] []R []L Lumbar [] [] [] [] [] []R []L Sacrum [] [] [] [] [] []R []L Innominate/Pelvis [] [] [] [] [] []R []L Ribca (more content not included)... Normal [facility] Progress Note Visit reason: OMT-shoulders, neck, some upper back Additional information: no Medications needing to be refilled: na Patient was able to ambulate safely to the examination room. Provider was not notified of possible fall risk. Identification Printing Machine Setter: not offered PHQ2: negative Food insecurity screening: negative Industrial Education Instructor used: no Normal 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 She is at 21w5d gestation. Her obstetrical history is significant for: Recurrent loss- Antiphospholipid antibody syndrome with +Lupus anticoagulant Hx Pre-diabetes CHTN BMI >50 Chronic migraines HOSEA on CPAP Hypothyroidism Intermittent SVT and syncope with loop recorder in place history fully reviewed. Anxiety Vit D deficiency history fully reviewed. Pt states feeling much better since last appt, no longer struggling with migraines and school schedule. She is unaccompanied. Ambika denies any cramping, contractions, vaginal bleeding, unusual or increase in vaginal discharge, signs and symptoms of pre-eclampsia, or leaking of any fluid. Patient with positive movement. Review of Systems All other systems reviewed and are negative. Objective: BP 134/76 Wt (!) 149.9 kg (330 lb 6.4 oz) BMI 50.98 kg/m Physical Exam Nursing note and vitals reviewed. Constitutional: Appearance: She is well-developed and well-nourished. Pulmonary: Effort: Pulmonary effort is normal. Abdominal: Comments: gravid Musculoskeletal: General: Normal range of motion. Neurological: Mental Status: She is alert and oriented to person, place, and time. Skin: General: Skin is warm and dry. Psychiatric: Mood and Affect: Mood and affect normal. Behavior: Behavior normal. FHT: Positive Presentation: see ultrasound Uterine Size: see growth Ultrasound: see report Assessment/Plan: Ambika Brown is a 32 y.o. at 21w5d with: Active Non-Hospital Problems Diagnosis Date Noted Vitamin D deficiency 11/06/2022 Vit D 19 on 10/06 Rec Vit D3 1000-2000IU daily- taking Plan repeat in 3 months- ordered for next appt Reviewed on 01/16/2023 Disease of respiratory system affecting in second trimester 10/06/2022 Asthma Nervous system disease affecting in second trimester, antepartum 10/06/2022 migraines Supervision of other high risk pregnancies, second trimester 10/06/2022 PLAN OF CARE MD/OB APPOINTMENTS Genetic screening: see GC notes, unable to obtain NT How often should patient be evaluated? Monthly to 28 weeks, q 2 weeks from 28 to 36 weeks then weekly until delivery Work restrictions: NA EVALUATION surveillance: BPP once- twice weekly at 32 weeks Ultrasound: anatomy, growth every 4 weeks DELIVERY PLAN Hospital: [facility] Induction at 37 weeks (CHTN, hx)- GBS culture: Contraception: : Reviewed on 01/16/2023 Uncomplicated asthma Has inhaler for prn use No recent exacerbations Reviewed on 01/16/2023 Pre-existing hypertension during in second trimester TN- was on Metoprolol but stopped taking 10/05/21 BP cuff ordered. Instructed on BID BP check. Parameters to notify office 140/90 or greater. PEC labs ordered-Normal UPCR 0.15 Currently taking BASA -Monitor Bps at home. -Start meds for persistent HTN >140/90 -Beta blockade preferred to procardia given h/o SVT and ectopy -Serial growth every 4 weeks - testing at 32 weeks (once or twice weekly pending course). -Delivery by 38 weeks unless indicated sooner. 12/05: Pt met with [facility] today- BP elevate in office, they will defer to MFM for management. Plans f/u PP. Rx sent for labetalol 100 mg BID. Pt to check BP at home and report next week for med adjustment if needed. Will plan for in office appt in 2 weeks for review. Precautions reviewed with pt, encouraged to call with any concerns. 12/18/22: just started Labetalol 100mg BID 12/16/22 BP 134/86. Pt will track BP BID at home and report 140/90 or greater 12/26: pt recently in triage with concerns for elevated BP at home, BP WNL in triage. PC ratio 0.47 in triage. Labetalol dose adjusted to 200 mg TID. BP stable today in office. BP correlated with home cuff and readings not similar. Pt to return home cuff. Precautions reviewed with pt and encouraged pt to take BP at drug store until new cuff received. Will correlate new cuff at future appt. 01/16: BP stable on Labetalol 200 mg TID at this time. Precautions reviewed, continue to monitor Reviewed on 01/16/2023 Maternal cardiovascular disease, antepartum, second trimester PVCs/ palpitations, Intermittent SVT Syncopal episodes Structurally normal heart, normal stress test, normal head imaging EP attempted Ablation- however, could not elicit any dysrhytmia to ablate. No syncope since 06/2022. Implantable loop recorder placed 08/2022. Follows with Dr Conrad, [facility]- appt December 05- no changes at appt, f/u PP -Continue close co-management with cardiology -If treatment needed, beta blockade preferred (metoprolol, labetalol). -check electrolytes qtrimester or more frequent with symptoms, maintain Mag level >2.0. Maternal morbid obesity, antepartum, second trimester PP BMI (more content not included)... Normal [facility] Progress Noteon 12-29-2022 Progress Note General Neurology Follow-up Date of Service: 12/29/2022 Chief complaint: Headache Subjective: Patient states headache is better, but still has tension band around her head. She currently rates the pain a 4/10. Medications: Scheduled Meds:Acetaminophen-Caffe ine, 2 tablet, Oral, 3 times per day aspirin, 162 mg, Oral, Nightly cholecalciferol, 200 Units, Oral, Nightly enoxaparin, 40 mg, SubCUTAneous, Nightly famotidine, 20 mg, Oral, BID Or famotidine, 20 mg, IntraVENous, BID labetalol, 200 mg, Oral, TID levothyroxine, 50 mcg, Oral, qAM AC magnesium oxide, 400 mg, Oral, Daily 19, 1 tablet, Oral, Nightly senna-docusate sodium, 2 tablet, Oral, Daily sodium chloride 0.9%, 10 mL, IntraVENous, 2 times per day Continuous Infusions: PRN Meds:PRN medications: cyclobenzaprine, melatonin, methylPREDNISolone sod suc (PF), ondansetron ODT OR ondansetron, sodium chloride, sodium chloride 0.9% Allergies Allergen Reactions Compazine [Prochlorperazine] Anxiety Diphenhydramine Palpitations Objective: Exam: BP 131/62 (BP Location: Left arm, Patient Position: Sitting) Pulse 60 Temp 36.5 ?C (97.7 ?F) (Temporal) Resp 18 Ht 1.715 m (5' 7.5) Wt (!) 151 kg (333 lb) SpO2 93% BMI 51.39 kg/m? Constitutional: well-nourished. Head: Size/Trauma: normocephalic Neck: supple Heart: RRR, S1S2 Resp: Normal BS GI: soft, nontender Ext: Normal Neuro: General: awake and alert Cranial nerves: I: smell Not tested II: visual anderson Full to confrontation II: pupils Equal, round, reactive to light III,VII: ptosis None III,IV,: extraocular muscles Full ROM V: mastication Normal V: facial light touch sensation Normal V,VII: corneal reflex Present VII: facial muscle function - upper Normal VII: facial muscle function - lower Normal VIII: hearing Normal IX: soft palate elevation Normal IX,X: gag reflex Present XI: trapezius strength 5/5 XI: sternocleidomastoid strength 5/5 XI: neck flexion strength 5/5 XII: tongue strength Normal Motor exam: normal strength, muscle mass, and tone in all extremities Tone: normal Sensation was normal to light touch Deep tendon reflexes were 2+ bilaterally Plantar responses were flexor bilaterally Cerebellar exam noted no tremors noted Gait: deferred secondary to fall risk Data: LABS: RADIOLOGY: MRI Brain wo contrast 12/27/22 Normal MRI examination of the brain. Neuroimaging and labs personally reviewed Assessment/Plan: 32 yo female with PMH of asthma, GERD, antiphospholipid antibody syndrome (on Lovenox), lupus, SVT s/p loop recorder, HOSEA, hypothyroidism, POTS, and migraine headaches presents with complaint/s of headache. Headache -Concern for chronic tension type LONG vs pre-eclampsia -LONG initially not consistent with patient's typical migraine, but now it's evolving into typical migraine -With no papilledema or positional association, low concern for IIH -MRI brain normal -Can continue Excedrin -Will discontinue IVSM and give a one time dose of Prednisone 40mg -Can send home with a medrol dose pack -Would continue to monitor patient's BP -Will defer pre-eclampsia monitoring to primary -19 weeks -Per OB HTN -On labetalol -Bps have been normotensive -Per primary APLS -On Lovenox -Per primary SVT/POTS -Stable -Loop recorder placed 08/2022 HOSEA -Encourage use of CPAP Hypothyroidism -On Synthroid -Per primary No further neurology workup needed at this time. Neurology service will sign off. Please call with any questions or concerns. Thank you. Patient seen and discussed with Dr. Lin [facility] Progress Note ---- -------- Attestation signed by Jody Montanez MD at 12/29/2022 2:55 PM Hospital Care (Independent): I independently saw and evaluated the patient. I agree with the findings and plan of care as documented in the resident's note. -------- Maternal Medicine Service Resident Progress Note 12/29/2022 6:03 AM 12/26/2022 Hospital Day: 4 Ambikaiman Brown, 32 y.o. 19w1d Patient has been seen and examined. Patient reports LONG is improved. Migraine symptoms are gone but tension band still present, 12/18 this am. She denies VC, CP, SOB, RUQ pain. She notices improvement with IVSM but states that the pain through the IV is severe when administered. She has been taking flexeril prn which helps with neck pain and sleep. 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 Some of this stress has been relieved and patient notes a difference in symptoms. Positive movement Negative vaginal bleeding Negative LOF Negative Contractions Vitals: 12/27/22 2001 12/28/22 0832 12/28/22 1354 12/28/222055 BP: 116/60 (!) 142/76 124/57 131/62 BP Location: Left arm Patient Position: Sitting Sitting Pulse: 72 60 79 60 Resp: 16 18 18 Temp: 36.8 ?C (98.2 ?F) 36.6 ?C (97.8 ?F) 36.5 ?C (97.7 ?F) TempSrc: Oral Temporal Temporal SpO2: 97% 97% 93% Weight: Height: Physical Exam: Gen: NAD, well appearing HEENT: Normocephalic, Atraumatic, EOMI Resp: Non-labored breathing, no respiratory distress Abd: soft, NTND, no rebound, no guarding Ext: No LE edema, no calf tenderness or swelling Medications: Current Facility-Administered Medications Medication Dose Route Frequency Provider Last Rate Last Admin Acetaminophen-Caffeine (Excedrin Tension Headache) 2 tablet 2 tablet Oral 3 times per day Shaw Del Angel MD 2 tablet at 12/28/222121 aspirin EC tablet 162 mg 162 mg Oral Nightly Shaw Del Angel MD 162 mg at 12/28/222049 cholecalciferol (Vitamin D-3) tablet 200 Units 200 Units Oral Nightly Shaw Del Angel MD 200 Units at 12/28/222050 cyclobenzaprine (Flexeril) tablet 10 mg 10 mg Oral TID PRN Shaw Del Angel MD 10 mg at 12/28/222050 enoxaparin (Lovenox) syringe 40 mg 40 mg SubCUTAneous Nightly Shaw Del Angel MD 40 mg at 12/28/222050 famotidine (Pepcid) tablet 20 mg 20 mg Oral BID Jhoanakelly Camejo, DO 20 mg at 12/28/222050 Or famotidine (Pepcid) injection 20 mg 20 mg IntraVENous BID Jhoana Stephanyrobryanna, DO labetalol (Normodyne) tablet 200 mg 200 mg Oral TID Shaw Del Angel MD 200 mg at 12/28/222050 levothyroxine (Synthroid, Levoxyl) tablet 50 mcg 50 mcg Oral qAM AC Shaw Del Angel MD 50 mcg at 12/28/22 0613 magnesium oxide (Mag-Ox) tablet 400 mg 400 mg Oral Daily Shaw Del Angel MD 400 mg at 12/28/22 0833 methylPREDNISolone sodium succinate (PF) (SOLU-Medrol) injection 125 mg 125 mg IntraVENous q8h PRN Maggie Bjearano APRN - SCHEDULE CHECKER 125 mg at 12/29/22 0002 ondansetron ODT (Zofran-ODT) disintegrating tablet 4 mg 4 mg Oral q8h PRN Shaw Del Angel MD Or ondansetron (Zofran) injection 4 mg 4 mg IntraVENous q6h PRN Shaw Del Angel MD 19 chewable tablet 1 tablet Oral Nightly Shaw Del Angel MD 1 tablet at 12/28/222050 senna-docusate sodium (Senokot-S) 8.6-50 MG tablet 2 tablet 2 tablet Oral Daily Shaw Del Angel MD 2 tablet at 12/27/22 1456 sodium chloride 0.9 % infusion 5-250 mL/hr IntraVENous PRN Shaw Del Angel MD sodium chloride 0.9% (NS) flush 10 mL 10 mL IntraVENous 2 times per day Shaw Del Angel MD 10 mL at 12/28/222053 sodium chloride 0.9% (NS) flush 10 mL 10 mL IntraVENous PRN Shaw Del Angel MD Assessment/Plan: Ambika Brown is a 32 y.o. female 19w1d Acute LONG Chronic Migraines - Continue excedrin and mag-ox scheduled - IVSM ordered q 8 hours prn per neurology - MRI brain normal - S/p ophthalmology consult with normal fundoscopic exam - LONG improved this am, currently 12/18. Reports IVSM has been helping but very painful through IV. Also reports may be related to some stressors at home which are getting better. Offered CLP consult and patient declined at this time. cHTN - Continue labetalol 200mg TID and bASA - BP's normotensive with rare low mild range - Low suspicion that headache is related to preeclampsia APLS - Continue ppx lovenox daily HOSEA - Has not used CPAP at night due to discomfort in Hypothyroidism - Continue synthroid Vit D Deficiency - Continue supplementation Asthma - Asymptomatic IUP @ 19w1d - Dating by 7w0d US - Anatomy US performed but limited, will need repeat in 1-2w which is scheduled outpatient - Monitoring:FHT daily - Diet:General - BMZ deferred Further plan pending d/w at (more content not included)... Normal [facility] CARECOORDon 12-28-2022 CARECOORD 32 year old admitted for headache at 18/5 weeks. 6 Para 0. Neurology consult. Chronic hypertension, on Labetalol. Hypothyroidism, on Synthroid. Ophthalmology consult. She is independent and has insurance. Normal [facility] Progress Noteon 12-28-2022 Progress Note Nutrition rescreen completed. Chart reviewed. Patient to be monitored and followed by the diet perinatal technician. Normal [facility] Progress Note ---- -------- Attestation signed by Kenya Lin MD at 12/28/2022 12:27 PM I have seen, examined and evaluated the patient with the resident physician or nurse practitioner under my direct supervision. I have reviewed the resident physician's or nurse practitioner's note and agree with the assessment and plan of care as documented with this addendum. LONG had improved s/p steroids and heat/massage yesterday. This morning, LONG has increased in severity (03/19) and now is more of a frontal throbbing LONG. Still no n/v/p/p phobia. No positional association. Assessment/Plan: 32 yo female with PMH of asthma, GERD, antiphospholipid antibody syndrome (on Lovenox), lupus, SVT s/p loop recorder, HOSEA, hypothyroidism, POTS, and migraine headaches presents with complaint/s of headache. Headache -Concern for chronic tension type LONG vs migraine vs pre-eclampsia -LONG initially not consistent with patient's typical migraine, but now it's evolving into typical migraine -With no papilledema or positional association, low concern for IIH -MRI brain normal -Can continue Excedrin -IVSM 125mg given yesterday with some improvement in headache -Will schedule IVSM 125mg q8 PRN -Would continue to monitor patient's BP while receiving IVSM -Will defer pre-eclampsia monitoring to primary Remainder as below -------- General Neurology Follow-up Date of Service: 12/28/2022 Chief complaint: Headache Subjective: Patient initially had some improvement in her headache last night. However, headache is worsening, and now feels like her typical migraine headache. Medications: Scheduled Meds:Acetaminophen-Caffe ine, 2 tablet, Oral, 3 times per day aspirin, 162 mg, Oral, Nightly cholecalciferol, 200 Units, Oral, Nightly enoxaparin, 40 mg, SubCUTAneous, Nightly famotidine, 20 mg, Oral, BID Or famotidine, 20 mg, IntraVENous, BID labetalol, 200 mg, Oral, TID levothyroxine, 50 mcg, Oral, qAM AC magnesium oxide, 400 mg, Oral, Daily 19, 1 tablet, Oral, Nightly senna-docusate sodium, 2 tablet, Oral, Daily sodium chloride 0.9%, 10 mL, IntraVENous, 2 times per day Continuous Infusions: PRN Meds:PRN medications: cyclobenzaprine, ondansetron ODT OR ondansetron, sodium chloride, sodium chloride 0.9% Allergies Allergen Reactions Compazine [Prochlorperazine] Anxiety Diphenhydramine Palpitations Objective: Exam: BP 116/60 Pulse 72 Temp 36.8 ?C (98.2 ?F) (Oral) Resp 16 Ht 1.715 m (5' 7.5) Wt (!) 151 kg (333 lb) SpO2 97% BMI 51.39 kg/m? Constitutional: well-nourished. Head: Size/Trauma: normocephalic Neck: supple Heart: RRR, S1S2 Resp: Normal BS GI: soft, nontender Ext: Normal Neuro: General: awake and alert Cranial nerves: I: smell Not tested II: visual anderson Full to confrontation II: pupils Equal, round, reactive to light III,VII: ptosis None III,IV,: extraocular muscles Full ROM V: mastication Normal V: facial light touch sensation Normal V,VII: corneal reflex Present VII: facial muscle function - upper Normal VII: facial muscle function - lower Normal VIII: hearing Normal IX: soft palate elevation Normal IX,X: gag reflex Present XI: trapezius strength 5/5 XI: sternocleidomastoid strength 5/5 XI: neck flexion strength 5/5 XII: tongue strength Normal Motor exam: normal strength, muscle mass, and tone in all extremities Tone: normal Sensation was normal to light touch Deep tendon reflexes were 2+ bilaterally Plantar responses were flexor bilaterally Cerebellar exam noted no tremors noted Gait: deferred secondary to fall risk Data: LABS: RADIOLOGY: MRI Brain wo contrast 12/27/22 Normal MRI examination of the brain. Neuroimaging and labs personally reviewed Assessment/Plan: 32 yo female with PMH of asthma, GERD, antiphospholipid antibody syndrome (on Lovenox), lupus, SVT s/p loop recorder, HOSEA, hypothyroidism, POTS, and migraine headaches presents with complaint/s of headache. Headache -Concern for chronic tension type LONG vs pre-eclampsia -LONG initially not consistent with patient's typical migraine, but now it's evolving into typical migraine -With no papilledema or positional association, low concern for IIH -MRI brain normal -Can continue Excedrin -IVSM 125mg given yesterday with some improvement in headache -Will schedule IVSM 125mg q8 PRN -Would continue to monitor patient's BP while receiving IVSM -Will defer pre-eclampsia monitoring to primary -18 weeks -Per OB HTN -On labetalol -Bps have been normotensive -Per primary APLS -On Lovenox -Per primary SVT/POTS -Stable -Loop recorder placed 08/2022 HOSEA -Encourage use of CPAP Hypothyroidism -On Synthroid -Per primar (more content not included)... [facility] Progress Note ---- -------- Attestation signed by Jody Montanez MD at 12/28/2022 12:32 PM Hospital Care (Independent): I independently saw and evaluated the patient. I agree with the findings and plan of care as documented in the resident's note. -------- Maternal Medicine Service Resident Progress Note 12/28/2022 6:03 AM 12/26/2022 Hospital Day: 3 Ambika Brown, 32 y.o. 19w0d Patient has been seen and examined. Patient reports improvement with IVSM and OMM overnight, 01/17. This am, she reports the headache is worse again and now starting to feel like a typical migraine. Currently 03/19. Did not sleep well overnight. Denies N/V, tolerating PO appropriately. Positive movement Negative vaginal bleeding Negative LOF Negative Contractions Vitals: 12/26/22201212/27/22 0856 12/27/22 1404 12/27/222000 BP: 111/52 137/69 121/63 116/60 Pulse: 74 75 80 72 Resp: 15 16 16 Temp: 36.5 ?C (97.7 ?F) 36.6 ?C (97.9 ?F) 36.8 ?C (98.2 ?F) TempSrc: Temporal Temporal Oral SpO2: 95% 97% 99% 97% Weight: Height: Physical Exam: Gen: NAD, well appearing HEENT: Normocephalic, Atraumatic, EOMI Resp: Non-labored breathing, no respiratory distress Abd: soft, NTND, no rebound, no guarding Ext: No LE edema, no calf tenderness or swelling Medications: Current Facility-Administered Medications Medication Dose Route Frequency Provider Last Rate Last Admin Acetaminophen-Caffeine (Excedrin Tension Headache) 2 tablet 2 tablet Oral 3 times per day Shaw Del Angel MD 2 tablet at 12/27/222128 aspirin EC tablet 162 mg 162 mg Oral Nightly Shaw Del Angel MD 162 mg at 12/27/222127 cholecalciferol (Vitamin D-3) tablet 200 Units 200 Units Oral Nightly Shaw Del Angel MD 200 Units at 12/27/222129 cyclobenzaprine (Flexeril) tablet 10 mg 10 mg Oral TID PRN Shaw Del Angel MD enoxaparin (Lovenox) syringe 40 mg 40 mg SubCUTAneous Nightly Shaw Del Angel MD 40 mg at 12/27/222129 famotidine (Pepcid) tablet 20 mg 20 mg Oral BID Jhoana Camejo DO 20 mg at 12/27/222128 Or famotidine (Pepcid) injection 20 mg 20 mg IntraVENous BID Jhoana Camejo DO labetalol (Normodyne) tablet 200 mg 200 mg Oral TID Shaw Del Angel MD 200 mg at 12/27/222128 levothyroxine (Synthroid, Levoxyl) tablet 50 mcg 50 mcg Oral qAM AC Shaw Del Angel MD 50 mcg at 12/27/22 0621 magnesium oxide (Mag-Ox) tablet 400 mg 400 mg Oral Daily Shaw Del Angel MD 400 mg at 12/27/22 0852 ondansetron ODT (Zofran-ODT) disintegrating tablet 4 mg 4 mg Oral q8h PRN Shaw Del Angel MD Or ondansetron (Zofran) injection 4 mg 4 mg IntraVENous q6h PRN Shaw Del Angel MD 19 chewable tablet 1 tablet Oral Nightly Shaw Del Angel MD 1 tablet at 12/27/222129 senna-docusate sodium (Senokot-S) 8.6-50 MG tablet 2 tablet 2 tablet Oral Daily Shaw Del Angel MD 2 tablet at 12/27/22 1456 sodium chloride 0.9 % infusion 5-250 mL/hr IntraVENous PRN Shaw Del Angel MD sodium chloride 0.9% (NS) flush 10 mL 10 mL IntraVENous 2 times per day Shaw Del Angel MD 10 mL at 12/27/222130 sodium chloride 0.9% (NS) flush 10 mL 10 mL IntraVENous PRN Shaw Del Angel MD Assessment/Plan: Ambika Brown is a 32 y.o. female 19w0d Acute LONG Chronic Migraines - Continue Excedrin and mag-ox scheduled - S/p IVSMx1 per neurology and OMM per [facility], appreciate the excellent care - LONG improved overnight with interventions but worse again this am - MRI brain normal - S/p ophthalmology consult with normal fundoscopic exam cHTN - Continue labetalol 200mg TID - BP's normotensive - Continue bASA APLS - Continue ppx lovenox daily HOSEA - Has not used CPAP due to discomfort in Hypothyroidism - Continue synthroid Vit D Deficiency - Continue vit D supplementation Asthma - Asymptomatic IUP @ 19w0d - Dating by 7w0d US - Monitoring:FHT daily - Diet:General - BMZ deferred Further plan pending d/w attending. Shaw Del Angel MD 12/28/2022, 6:03 AM [facility] US OB DETAIL ANATOMY T RANSABDOMINALon 12-28-2022 US OB DETAIL ANATOMY TRANSABDOMINAL OBSTETRICS REPORT (Signed Final 12/28/2022 12:43 pm) PATIENT INFO: ID #: [id number] : [birth year] (32 yrs)(F) Name: AMBIKA BROWN Visit Date: 12/28/2022 09:27 am PERFORMED BY: Attending: Jody Montanez MD, PhD, FACOG Performed By: Mat Krueger Referred By: SHAW DEL ANGEL Location: [facility] Visit Type: Inpatient - Hospital SERVICE(S) PROVIDED: US Level II complete (Targeted OB) 06791 INDICATIONS: Anatomy Z36.3 Headache Obesity [place] [facility] VITAL SIGNS: Weight (lb): 333 Height: 5'7 BMI: 52.15 EVALUATION: Num Of Fetuses: 1 Heart Rate(bpm): 135 Cardiac Activity: Regular rhythm Lie: Longitudinal Presentation: Cephalic Placenta: Anterior P. Cord Insertion: Normal Amniotic Fluid JACOB FV: Appropriate for gestational age Largest Pocket(cm) 4.3 BIOMETRY: BPD: 45.5 mm G.Age: 19w 5d 81 % OFD: 58.4 mm HC: 166.8 mm G.Age: 19w 3d 61 % AC: 141.1 mm G.Age: 19w 3d 62 % FL: 33.8 mm G.Age: 20w 4d 91 % HUM: 27.4 mm G.Age: 18w 5d 43 % LV: 4.4 mm CI: 77.9 % 70 - 86 FL/HC: 20.3 % 16.1 - 18.3 HC/AC: 1.18 1.09 - 1.39 FL/BPD: 74.3 % FL/AC: 24.0 % 20 - 24 Est. FW: 322 gm 0 lb 11 oz GESTATIONAL AGE: Clinical ТАТЬЯНА: 19w 0d ТАТЬЯНА: 05/24/23 U/S Today: 19w 6d ТАТЬЯНА: 05/18/23 Best: 19w 0d Det. By: Clinical ТАТЬЯНА ТАТЬЯНА: 05/24/23 TARGETED ANATOMY: Central Nervous System Calvarium/Cranial V.: Normal appearance Intracranial Kayla: Normal appearance Cavum: Suboptimal views Parenchyma: Normal appearance Lateral Ventricles: Normal appearance Choroid Plexus: Normal appearance Cereb./Vermis: Suboptimal views Cisterna Magna: Suboptimal views Corpus Callosum: Suboptimal views Midline Falx: Normal appearance Spine Cervical: Normal appearance Thoracic: Normal appearance Lumbar: Normal appearance Sacral: Normal appearance Shape/Curvature: Normal appearance Head/Neck Face: Normal appearance Lips: Suboptimal views Neck: Normal appearance Nuchal Fold: Suboptimal views Nasal Bone: Suboptimal views Palate: Suboptimal views Profile: Suboptimal views Orbits/Eyes: Normal appearance Mandible: Suboptimal views Maxilla: Suboptimal views Thorax Thoracic Contour: Normal appearance Lungs: Normal appearance 4 Chamber View: Normal appearance Cardiac Activity: Normal Cardiac Rhythm: Normal Cardiac Situs: Normal appearance Rt Outflow Tract: Suboptimal views Lt Outflow Tract: Suboptimal views Aortic Arch: Suboptimal views Ductal Arch: Suboptimal views SVC: Suboptimal Views Interventr. Septum: Normal appearance Cardiac [place]: Normal appearance Diaphragm: Normal appearance 3 Vessel View: Suboptimal views 3 V Trachea View: Suboptimal views IVC: Suboptimal Crossing: Suboptimal views Abdomen Ventral Wall: Normal appearance Cord Insertion: Normal appearance Situs: Normal appearance Stomach: Normal appearance Lt Kidney: Normal appearance Rt Kidney: Normal appearance Bladder: Normal appearance Extremities Lt Humerus: Normal appearance Rt Humerus: Normal appearance Lt Forearm: Normal appearance Rt Forearm: Normal appearance Lt Hand: Normal appearance Rt Hand: Normal appearance Lt Femur: Normal appearance Rt Femur: Normal appearance Lt Lower Leg: Normal appearance Rt Lower Leg: Normal appearance Lt Foot: Suboptimal views Rt Foot: Suboptimal views Other Umbilical Cord: Normal 3-vessel Genitalia: Suboptimal views Jody Montanez MD, PhD, FACOG Electronically Signed Final Report 12/28/2022 12:43 pm IMPRESSION: 1. Osborne live intrautine at 19w 0d. 2. Multiple structures are not visualized. The rest of the anatomy appears normal. 3. biometry consistent with clinically established ТАТЬЯНА. 4. Normal Anterior placenta. Additional follow-up after 2 weeks to complete the anatomy. Ultrasound is not diagnostic of chromosomal aneuploidy and does not detect all subtle defects. Normal ultrasound findings do not guara (more content not included)... Normal [facility] US for pregnancyon 3 1. Osborne live intrautine at 19w 0d. 2. Multiple structures are not visualized. The rest of the anatomy appears normal. 3. biometry consistent with clinically established ТАТЬЯНА. 4. Normal Anterior placenta. Additional follow-up after 2 weeks to complete the anatomy. Ultrasound is not diagnostic of chromosomal aneuploidy and does not detect all subtle defects. Normal ultrasound findings do not guarantee normal outcomes. [facility] OBSTETRICS REPORT (Signed Final 12/28/2022 12:43 pm) PATIENT INFO: ID #: [id number] : [birth year] (32 yrs)(F) Name: AMBIKA BROWN Visit Date: 12/28/2022 09:27 am PERFORMED BY: Attending: Jody Montanez MD, PhD, FACOG Performed By: Mat Krueger Referred By: SHAW DEL ANGEL Location: [facility] Visit Type: Inpatient - Hospital SERVICE(S) PROVIDED: US Level II complete (Targeted OB) 03153 INDICATIONS: Anatomy Z36.3 Headache Obesity [place] [facility] VITAL SIGNS: Weight (lb): 333 Height: 5'7 BMI: 52.15 EVALUATION: Num Of Fetuses: 1 Heart Rate(bpm): 135 Cardiac Activity: Regular rhythm Lie: Longitudinal Presentation: Cephalic Placenta: Anterior P. Cord Insertion: Normal Amniotic Fluid JACOB FV: Appropriate for gestational age Largest Pocket(cm) 4.3 BIOMETRY: BPD: 45.5 mm G.Age: 19w 5d 81 % OFD: 58.4 mm HC: 166.8 mm G.Age: 19w 3d 61 % AC: 141.1 mm G.Age: 19w 3d 62 % FL: 33.8 mm G.Age: 20w 4d 91 % HUM: 27.4 mm G.Age: 18w 5d 43 % LV: 4.4 mm CI: 77.9 % 70 - 86 FL/HC: 20.3 % 16.1 - 18.3 HC/AC: 1.18 1.09 - 1.39 FL/BPD: 74.3 % FL/AC: 24.0 % 20 - 24 Est. FW: 322 gm 0 lb 11 oz GESTATIONAL AGE: Clinical ТАТЬЯНА: 19w 0d ТАТЬЯНА: 05/24/23 / Today: 19w 6d ТАТЬЯНА: 05/18/23 Best: 19w 0d Det. By: Clinical ТАТЬЯНА ТАТЬЯНА: 05/24/23 TARGETED ANATOMY: Central Nervous System Calvarium/Cranial V.: Normal appearance Intracranial Kayla: Normal appearance Cavum: Suboptimal views Parenchyma: Normal appearance Lateral Ventricles: Normal appearance Choroid Plexus: Normal appearance Cereb./Vermis: Suboptimal views Cisterna Magna: Suboptimal views Corpus Callosum: Suboptimal views Midline Falx: Normal appearance Spine Cervical: Normal appearance Thoracic: Normal appearance Lumbar: Normal appearance Sacral: Normal appearance Shape/Curvature: Normal appearance Head/Neck Face: Normal appearance Lips: Suboptimal views Neck: Normal appearance Nuchal Fold: Suboptimal views Nasal Bone: Suboptimal views Palate: Suboptimal views Profile: Suboptimal views Orbits/Eyes: Normal appearance Mandible: Suboptimal views Maxilla: Suboptimal views Thorax Thoracic Contour: Normal appearance Lungs: Normal appearance 4 Chamber View: Normal appearance Cardiac Activity: Normal Cardiac Rhythm: Normal Cardiac Situs: Normal appearance Rt Outflow Tract: Suboptimal views Lt Outflow Tract: Suboptimal views Aortic Arch: Suboptimal views Ductal Arch: Suboptimal views SVC: Suboptimal Views Interventr. Septum: Normal appearance Cardiac [place]: Normal appearance Diaphragm: Normal appearance 3 Vessel View: Suboptimal views 3 V Trachea View: Suboptimal views IVC: Suboptimal Crossing: Suboptimal views Abdomen Ventral Wall: Normal appearance Cord Insertion: Normal appearance Situs: Normal appearance Stomach: Normal appearance Lt Kidney: Normal appearance Rt Kidney: Normal appearance Bladder: Normal appearance Extremities Lt Humerus: Normal appearance Rt Humerus: (more content not included)... [facility] Jody Montanez MD - 12/28/2022 OBSTETRICS REPORT (Signed Final 12/28/2022 12:43 pm) PATIENT INFO: ID #: [id number] : [birth year] (32 yrs)(F) Name: AMBIKA BROWN Visit Date: 12/28/2022 09:27 am PERFORMED BY: Attending: Jody Montanez MD, PhD, FACOG Performed By: Mat Krueger Referred By: SHAW DEL ANGEL Location: [facility] Visit Type: Inpatient - Hospital SERVICE(S) PROVIDED: US Level II complete (Targeted OB) [id number] INDICATIONS: Anatomy Z36.3 Headache Obesity [place] [facility] VITAL SIGNS: Weight (lb): 333 Height: 5'7 BMI: 52.15 EVALUATION: Num Of Fetuses: 1 Heart Rate(bpm): 135 Cardiac Activity: Regular rhythm Lie: Longitudinal Presentation: Cephalic Placenta: Anterior P. Cord Insertion: Normal Amniotic Fluid JACOB FV: Appropriate for gestational age Largest Pocket(cm) 4.3 BIOMETRY: BPD: 45.5 mm G.Age: 19w 5d 81 % OFD: 58.4 mm HC: 166.8 mm G.Age: 19w 3d 61 % AC: 141.1 mm G.Age: 19w 3d 62 % FL: 33.8 mm G.Age: 20w 4d 91 % HUM: 27.4 mm G.Age: 18w 5d 43 % LV: 4.4 mm CI: 77.9 % 70 - 86 FL/HC: 20.3 % 16.1 - 18.3 HC/AC: 1.18 1.09 - 1.39 FL/BPD: 74.3 % FL/AC: 24.0 % 20 - 24 Est. FW: 322 gm 0 lb 11 oz GESTATIONAL AGE: Clinical ТАТЬЯНА: 19w 0d ТАТЬЯНА: 05/24/23 U/S Today: 19w 6d ТАТЬЯНА: 05/18/23 Best: 19w 0d Det. By: Clinical ТАТЬЯНА ТАТЬЯНА: 05/24/23 TARGETED ANATOMY: Central Nervous System Calvarium/Cranial V.: Normal appearance Intracranial Kayla: Normal appearance Cavum: Suboptimal views Parenchyma: Normal appearance Lateral Ventricles: Normal appearance Choroid Plexus: Normal appearance Cereb./Vermis: Suboptimal views Cisterna Magna: Suboptimal views Corpus Callosum: Suboptimal views Midline Falx: Normal appearance Spine Cervical: Normal appearance Thoracic: Normal appearance Lumbar: Normal appearance Sacral: Normal appearance Shape/Curvature: Normal appearance Head/Neck Face: Normal appearance Lips: Suboptimal views Neck: Normal appearance Nuchal Fold: Suboptimal views Nasal Bone: Suboptimal views Palate: Suboptimal views Profile: Suboptimal views Orbits/Eyes: Normal appearance Mandible: Suboptimal views Maxilla: Suboptimal views Thorax Thoracic Contour: Normal appearance Lungs: Normal appearance 4 Chamber View: Normal appearance Cardiac Activity: Normal Cardiac Rhythm: Normal Cardiac Situs: Normal appearance Rt Outflow Tract: Suboptimal views Lt Outflow Tract: Suboptimal views Aortic Arch: Suboptimal views Ductal Arch: Suboptimal views SVC: Suboptimal Views Interventr. Septum: Normal appearance Cardiac [place]: Normal appearance Diaphragm: Normal appearance 3 Vessel View: Suboptimal views 3 V Trachea View: Suboptimal views IVC: Suboptimal Crossing: Suboptimal views Abdomen Ventral Wall: Normal appearance Cord Insertion: Normal appearance Situs: Normal appearance Stomach: Normal appearance Lt Kidney: Normal appearance Rt Kidney: Normal appearance Bladder: Normal appearance Extremities Lt Humerus: Normal appearance Rt Humerus: Normal appearance Lt Forearm: Normal appearance Rt Forearm: Normal appearance Lt Hand: Normal appearance Rt Hand: Normal appearance Lt Femur: Normal appearance Rt Femur: Normal appearance Lt Lower Leg: Normal appearance Rt Lower Leg: Normal appearance Lt Foot: Suboptimal views Rt Foot: Suboptimal views Other Umbilical Cord: Normal 3-vessel Genitalia: Suboptimal views Jody Montanez MD, PhD, FACOG Electronically Signed Final Report 12/28/2022 12:43 pm IMPRESSION: 1. Osborne live intrautine at 19w 0d. 2. Multiple structures are not visualized. The rest of the anatomy appears normal. 3. biometry consistent with clinically established ТАТЬЯНА. 4. Normal Anterior placenta. Additional follow-up after 2 weeks to complete the anatomy. Ultrasound is no (more content not included)... [facility] Radiology Study observation (narrative) [facility] [employer] US for pregnancyOrdered By: Jody Montanez on 12-28-2022 [place] [employer] Work Phone: Bacteria identified Cx Nom ( U)Ordered By: Nick Whitney on 12-27-2022 Interpretation and review of laboratory results Normal [facility] Consulton 12-27-2022 Consult ---- -------- Attestation signed by Mei Herron DO at 12/28/2022 11:29 AM Attending Supervising Physician's Attestation Statement I performed an interim history and physical examination on the patient and discussed the management with the resident physician. I reviewed and agree with the findings and plan as documented in his note. Date of service 12/28/22. Patient reports significant improvement in LONG w/ OMT; however, it has worsened again today. Interested in another treatment tomorrow (Sunday) and will plan for this. Also interested in outpatient OMT appointment (any date after school ends 01/15/23) -> scheduled. Thank you for the consult. -------- [facility] Inpatient OMT Consultation/Procedure Note Subjective: Patient: Ambika Brown is a 32 y.o. female HPI Patient is admitted for Chronic headache Chief complaint for which patient would benefit from OMT: Chronic headache Pain location: head Severity: 5 Duration: 2 weeks Aggravated by: nothing in particular Alleviated by: IV solumedrol helped bring it down from a 7 Previous OMT treatment: No Response: Not Applicable Red Flags present: none Previous imaging: yes MRI's in the past and one today, has not yet resulted Allergies Allergen Reactions Compazine [Prochlorperazine] Anxiety Diphenhydramine Palpitations No current facility-administered medications on file prior to encounter. Current Outpatient Medications on File Prior to Encounter Medication Sig Dispense Refill ascorbic acid (Vitamin C) 500 MG tablet Take 500 mg by mouth 2 times daily. aspirin 81 MG EC tablet Take 162 mg by mouth daily. cholecalciferol (Vitamin D3) 200 Unit tablet split tablet Take by mouth. enoxaparin (Lovenox) 40 MG/0.4ML solution prefilled syringe Inject 40 mg under the skin daily. labetalol (Normodyne) 200 MG tablet Take 1 tablet (200 mg) by mouth 3 times daily. 90 tablet 5 levothyroxine (Synthroid, Levoxyl) 50 MCG tablet Take 50 mcg by mouth every morning (before breakfast). [id number]-[id number]-[id number]-3 ( GUMMIES/DHA & FA PO) Take 2 tablets by mouth daily. sodium chloride 0.9 % nebulizer solution with albuterol (5 MG/ML) 0.5% nebulizer solution 0.9 mg/mL Inhale 2 puffs 4 times daily as needed. [DISCONTINUED] labetalol (Normodyne) 100 MG tablet Take 100 mg by mouth in the morning and 100 mg in the evening. [DISCONTINUED] labetalol (Normodyne) 200 MG tablet Take 200 mg by mouth 2 times daily. Patient Active Problem List Diagnosis Infertility, female Obesity GERD (gastroesophageal reflux disease) Left-sided weakness Mild intermittent asthma without complication Migraine Hemiplegic migraine without status migrainosus, not intractable Chronic migraine without aura Social History Tobacco Use Smoking status: Never Smokeless tobacco: Never Substance Use Topics Alcohol use: No Objective: BP 121/63 Pulse 80 Temp 36.6 ?C (97.9 ?F) (Temporal) Resp 16 Ht 5' 7.5 (1.715 m) Wt (!) 333 lb (151 kg) SpO2 99% BMI 51.39 kg/m? Physical Exam Vitals reviewed. Constitutional: General: She is not in acute distress. Appearance: Normal appearance. She is not ill-appearing, toxic-appearing or diaphoretic. HENT: Head: Normocephalic and atraumatic. Pulmonary: Effort: No respiratory distress. Musculoskeletal: General: Tenderness present. No swelling, deformity or signs of injury. Normal range of motion. Cervical back: Normal range of motion and neck supple. Tenderness present. No rigidity. Right lower leg: No edema. Left lower leg: No edema. Skin: General: Skin is warm and dry. Capillary Refill: Capillary refill takes less than 2 seconds. Neurological: General: No focal deficit present. Mental Status: She is alert and oriented to person, place, and time. Mental status is at baseline. Cranial Nerves: No cranial nerve deficit. Sensory: No sensory deficit. Motor: No weakness. Coordination: Coordination normal. Gait: Gait normal. Deep Tendon Reflexes: Reflexes normal. Psychiatric: Mood and Affect: Mood normal. Behavior: Behavior normal. Thought Content: Thought content normal. Judgment: Judgment normal. Motor exam: normal 5/5 strength in all tested muscle groups, no muscle wasting or atrophy, no fasciculations noted, no involuntary movements, no abnormalities of position, normal resting muscle tone, and no pronator drift Reflexes: reflexes are normal and symmetric Sensation: intact SLRT: negative Osteopathic Exam: Region All Texture Asymmetry Restriction Tenderness Laterality Comments Head [x] [] [] [] [] [x]R [x]L Cervical [x] [] [] [] [] [x]R [x]L Thoracic [x] [] [] [] [] [x]R [x]L Lumbar [] [] [] [] [] []R []L Sacrum [] [] [] [] [] []R []L Innominate/Pelvis [] (more content not included)... Normal [facility] Consult ---- -------- Attestation signed by Kenya Lin MD at 12/27/2022 3:34 PM (Updated) I have seen, examined and evaluated the patient with the resident physician or nurse practitioner under my direct supervision. I have reviewed the resident physician's or nurse practitioner's note and agree with the assessment and plan of care as documented with the following addendum. HPI, social history, family history, and ROS have been reviewed and verified. Briefly, patient is a 32 yo, 18 week , female with history of asthma, GERD, antiphospholipid antibody syndrome (on Lovenox), lupus, SVT s/p loop recorder, HOSEA, hypothyroidism, POTS, and migraine headaches presents with complaint/s of headache. While patient endorses extensive history of migraine, this LONG feels different from typical migraines. Her typical migraine is throbbing frontal LONG with n/v/p/p phobia. For the past two weeks. She has had constant occipital pressure type of LONG with no migraine associated features. She denies vision change or focal motor/sensory deficits. No positional association. She does have some neck tightness which she occasionally gets with headaches. She follows with [facility] for migraines and was receiving botox prior to . During , she was instructed to use periactin for abortive therapy if needed. She did have an elevated BP of 158/74 on arrival and proteinuria, but BP's have been normotensive since admission. OB is monitoring for pre-eclampsia. Ophthalmology has evaluated with no findings of papilledema. Neurologic exam as below (Examined independently, any additions, pertinent findings, or revisions noted here) Assessment and Plan: 32 yo female with PMH of asthma, GERD, antiphospholipid antibody syndrome (on Lovenox), lupus, SVT s/p loop recorder, HOSEA, hypothyroidism, POTS, and migraine headaches presents with complaint/s of headache. Headache -Concern for chronic tension type LONG vs pre-eclampsia -LONG does not seem consistent with patient's typical migraine -With no papilledema or positional association, low concern for IIH -Would obtain MRI brain to ensure there is no intracranial abn (especially as patient is on lovenox and has hx of clotting disorder) -Can continue Excedrin -Will try a one time dose of IVSM 125mg -If IVSM is helpful, can schedule dosing -Will defer pre-eclampsia monitoring to primary -------- General Neurology Consult Patient: Ambika Brown Date of : 1990 Acct: [id number] PCP: Mega Weeks MD Date of Admission: 12/26/2022 Date of Service: Pt seen/examined on 12/27/22 Chief Complaint: Headache History Of Present Illness: 32 y.o. female with past medical history significant for asthma, GERD, antiphospholipid antibody syndrome (on Lovenox), lupus, SVT s/p loop recorder, HOSEA, hypothyroidism, POTS, and migraine headaches presents with complaint/s of headache. The patient states that for the last 2 weeks she has been having a headache, described as pressure in the back of her head that wraps around the sides. She denies any photophobia, phonophobia, nausea, or vomiting. At home she tried some Excedrin but it didn't provide any relief. She was seen by ophthalmology who didn't find any evidence of ocular/funduscopic evidence of pre-eclampsia. Patient has a history of migraine headaches but states that this is different than her typical migraine headache. Her typical migraines are described as being a frontal headache that is pulsating. She will have photophobia, phonophobia, tunnel vision, nausea, and vomiting. Patient can have hemiplegic migraines. Patient follows with [facility] migraine clinic. She was getting Botox but stopped after becoming . Her last office visit was on 09/12/22. The plan was to stop Botox until after and was completed. She was started on cyproheptadine 4mg that could be taken at onset of migraine. However, patient hasn't been taking. Since being admitted, patient was given Excedrin, Reglan, magnesium, and flexeril without any significant improvement. Patient is 18 weeks . Past Medical History: Past Medical History: Diagnosis Date Asthma GERD (gastroesophageal reflux disease) Infertility, female Joint pain b/l knees, b/l ankles Lupus anticoagulant affecting in second trimester, antepartum (HCC) Migraines Obesity Sinus tachycardia Past Surgical History: Past Surgical History: Procedure Laterality Date CHOLECYSTECTOMY CVHX IMPLANTABLE LOOP RECORDER SYSTEM 08/23/2022 TONSILLECTOMY (HISTORICAL) WISDOM TOOTH EXTRACTION Home Medications: Prior to Admission medications Medication Sig Start Date End Date Taking? Authorizing Provider ascor (more content not included)... Normal [facility] Consult Ophthalmology consul t note Present illness: 32 yo female 18 weeks with complaint of headache for 10 days. Has long history of migraine LONG's with associated visual changes. States this headache is different in character from her migraine LONG's. Eye examination: Visual acuity with corrective lenses and near vision card 20/25 right eye (OD) and 20/20 left eye (OS). No red color desaturation either eye. Pupils equal and reactive to light (RONY). No afferent pupillary defect (APD). EOM's full and comitant. Cranial nerve (CN) III- normal. Intraocular pressure (IOP) with Schiotz tonometer 7.1 mmHg both eyes (OU). Dilated funduscopic exam with direct and indirect ophthalmoscope reveals normal optic nervehead both eyes (OU) without papilledema and cup-to-disc ratio (C/D) 0.3 both eyes (OU). Vitreous clear, normal retinal vasculature, normal retina and retinal periphery/ all both eyes (OU). Confrontation visual field full both eyes (OU). Impression: #1 Migraine headaches by history #2 Headache/recent/differen t character by hx/ undetermined etiology/possible migraine variant. #3 No ocular/funduscopic evidence of pre-eclampsia. Normal [facility] Laboratory - Microbiology an d Antimicrobial susceptibilityOrdered By: Nick Whitney on 12-27-2022 Bacteria identified Cx Nom (U) Normal urogenital jorgito present [facility] MR Brain WO contraston 12-27 Normal MRI examinati on of the brain. Report Dictated on Electronically Signed By: Marlon Millard Electronically Signed Date/Time: 12/27/2022 8:54 PM [facility] Patient Name: AMBIKA BROWN : 1990 [id number] Exam Date/Time: 12/27/2022 17:11 Procedure: MR BRAIN WO CONTRAST Ordering Provider: BEJARANO KRISTEN Reason For Exam: Headache, chronic, new features or increased frequency MRI BRAIN: CLINICAL INDICATION: Headache, TECHNIQUE: Transaxial, sagittal and coronal T1, transaxial fast T2, FLAIR and gradient echo along with diffusion weighted imaging was performed through the brain. COMPARISON: 05/19/2017 FINDINGS: Ventricular system and Extra-axial spaces: Normal in size and morphology for the patient's age. No extracerebral cerebral collection with mass effect. Cerebral and cerebellar parenchyma: No focus of restricted diffusion to suggest acute infarction. No susceptibility artifact on the gradient echo sequence to suggest intracranial hemorrhage. No mass or edema. Brainstem: Normal. Sella turcica and pituitary: Normal. Vascular system: Normal signal void is noted within the major intracranial vessels. Paranasal sinuses: Clear. Mastoid air cells: Normal. Orbits: Normal. [facility] Marlon Millard MD - 12/27/2022 Patient Name: AMBIKA BROWN : 1990 Exam Date/Time: 12/27/2022 17:11 Procedure: MR BRAIN WO CONTRAST Ordering Provider: BEJARANO KRISTEN Reason For Exam: Headache, chronic, new features or increased frequency MRI BRAIN: CLINICAL INDICATION: Headache, TECHNIQUE: Transaxial, sagittal and coronal T1, transaxial fast T2, FLAIR and gradient echo along with diffusion weighted imaging was performed through the brain. COMPARISON: 05/19/2017 FINDINGS: Ventricular system and Extra-axial spaces: Normal in size and morphology for the patient's age. No extracerebral cerebral collection with mass effect. Cerebral and cerebellar parenchyma: No focus of restricted diffusion to suggest acute infarction. No susceptibility artifact on the gradient echo sequence to suggest intracranial hemorrhage. No mass or edema. Brainstem: Normal. Sella turcica and pituitary: Normal. Vascular system: Normal signal void is noted within the major intracranial vessels. Paranasal sinuses: Clear. Mastoid air cells: Normal. Orbits: Normal. IMPRESSION: Normal MRI examination of the brain. Report Dictated on Electronically Signed By: Marlon Millard Electronically Signed Date/Time: 12/27/2022 8:54 PM EDT [facility] Radiology Study observation (narrative) [facility] MR Brain WO contrastOrdered By: Marlon Millard on 12-27-2022 [email or web address] Work Phone: Progress Noteon 12-27-2022 Progress Note OMT family medicine consult acknowledged. Will plan to see patient later this afternoon. Normal [facility] SHS Progress Note ---- -------- Attestation signed by Kin Neves MD at 12/27/2022 1:47 PM I independently saw and evaluated the patient. I agree with the findings and plan of care as documented in the resident's note. 32 at 18 6/7 GA with the following: Chronic migraines with acute headaches mostly occipital reports decrease in severity continued exedrin and reglan was discontinued per patient preference. Negative ophthalmology consult Chronic hypertension. Labetalol 200mg TID. BP normotensive APLS recurrent loss Paroxysmal SVT, POTS asymptomatic with implantable loop recorded placed on 08/2022 HO[place] needs to use CPAP Hypothyroidism continued synthroid Asthma asymptomatic 8. Proteinuria without hypertension will continue to follow currently I spent 25 minutes in the visit today on the floor reviewing the chart, discussing the case with the residency staff and nursing Kin Neves MD -------- Maternal Medicine Service Resident Progress Note 12/27/2022 5:45 AM 12/26/2022 Hospital Day: 2 Ambika Brown, 32 y.o. 18w6d Patient has been seen and examined. Reports slept well overnight after flexeril but hasn't noticed a difference in headache this morning. Still 03/19. Denies CP, SOB, VC, N/V. Tolerating PO without difficulty. Positive movement Negative vaginal bleeding Negative LOF Negative Contractions Vitals: 12/26/22 1505 12/26/22 1647 12/26/22 1651 12/26/222012 BP: (!) 158/74 109/58 111/52 Pulse: 90 83 74 Resp: 20 15 Temp: 36.7 ?C (98.1 ?F) 37.2 ?C (98.9 ?F) 36.5 ?C (97.7 ?F) TempSrc: Oral Temporal Temporal SpO2: 97% 95% Weight: (!) 151 kg (333 lb) Height: 1.715 m (5' 7.5) Physical Exam: Gen: NAD, well appearing HEENT: Normocephalic, Atraumatic, EOMI Resp: Non-labored breathing, no respiratory distress Abd: soft, NTND, no rebound, no guarding Ext: No LE edema, no calf tenderness or swelling Medications: Current Facility-Administered Medications Medication Dose Route Frequency Provider Last Rate Last Admin Acetaminophen-Caffeine (Excedrin Tension Headache) 2 tablet 2 tablet Oral 3 times per day Shaw Del Angel MD 2 tablet at 12/26/22 1843 aspirin EC tablet 162 mg 162 mg Oral Nightly Shaw Del Angel MD cholecalciferol (Vitamin D-3) tablet 200 Units 200 Units Oral Nightly Shaw Del Angel MD cyclobenzaprine (Flexeril) tablet 10 mg 10 mg Oral TID PRN Shaw Del Angel MD enoxaparin (Lovenox) syringe 40 mg 40 mg SubCUTAneous Nightly Shaw Del Angel MD famotidine (Pepcid) tablet 20 mg 20 mg Oral BID Jhoana Camejo DO 20 mg at 12/26/22 2331 Or famotidine (Pepcid) injection 20 mg 20 mg IntraVENous BID Jhoana Camejo DO labetalol (Normodyne) tablet 200 mg 200 mg Oral TID Shaw Del Angel MD 200 mg at 12/26/22 174 levothyroxine (Synthroid, Levoxyl) tablet 50 mcg 50 mcg Oral qAM AC Shaw Del Angel MD magnesium oxide (Mag-Ox) tablet 400 mg 400 mg Oral Daily Shaw Del Angel MD 400 mg at 12/26/222010 metoclopramide (Reglan) injection 10 mg 10 mg IntraVENous q6h Shaw Del Angel MD ondansetron ODT (Zofran-ODT) disintegrating tablet 4 mg 4 mg Oral q8h PRN Shaw Del Angel MD Or ondansetron (Zofran) injection 4 mg 4 mg IntraVENous q6h PRN Shaw Del Angel MD 19 chewable tablet 1 tablet Oral Nightly hSaw Del Angel MD 1 tablet at 12/26/222010 sodium chloride 0.9 % infusion 5-250 mL/hr IntraVENous PRN Shaw Del Angel MD sodium chloride 0.9% (NS) flush 10 mL 10 mL IntraVENous 2 times per day Shaw Del Angel MD sodium chloride 0.9% (NS) flush 10 mL 10 mL IntraVENous PRN Shaw Del Angel MD Assessment/Plan: Ambika Brown is a 32 y.o. female 18w6d Chronic Migraines Acute LONG - Overnight reports slept well but LONG returned this am - Neurology and ophthalmology consulted, appreciate the recs - Fundoscopic exam performed and wnl - Continue excedrin, reglan discontinued per patient preference cHTN - Currently on labetalol 200mg TID - BP's normotensive - Asymptomatic besides LONG APLS Recurrent Loss - Continue ppx lovenox daily Paroxysmal SVT, POTS - Asymptomatic - Implantable loop recorded placed 08/2022 [place] - Has not been using CPAP in due to discomfort Hypothyroidism - Continue home synthroid Vit D Deficiency - Continue vit D supplementation Asthma - Asymptomatic IUP @ 18w6d - Dating by 7w0d US - Monitoring:FHT daily - Diet:General - BMZ deferred Further plan pending d/w attending. Shaw Del Angel MD 12/27/2022, 5:45 AM Normal [facility] ABO and Rh group Confirm Nom (Bld)on 12-26-2022 ABO group Nom (Bld) O [facility] D Ag Ql (RBC) Positive [facility] Blood type and Crossmatch gianfranco rodrigo (Bld)on 12-26-2022 ABO group Nom (Bld) O [facility] Blood group antibody screen GEL Ql Negative [facility] D Ag Ql (RBC) Positive [facility] CBC panel Auto (Bld)Ordered By: Magui Gannon on 12-26-2022 Erythrocyte distribution width (RBC) [Ratio] 16.1 % High 11.5 - 14.5 % [facility] Hematocrit (Bld) [Volume fraction] 40.1 % 35.0 - 47.0 % [facility] Hemoglobin (Bld) [Mass/Vol] 13.2 g/dL 11.7 - 16.0 g/dL [facility] Interpretation and review of laboratory results Abnormal [facility] MCH (RBC) [Entitic mass] 26.5 pg 26.0 - 34.0 pg [facility] MCHC (RBC) [Mass/Vol] 32.9 % 32.0 - 36.0 % [facility] MCV (RBC) [Entitic vol] 80.7 fL 80.0 - 98.0 fL [facility] Platelet mean volume (Bld) [Entitic vol] 9.9 fL 7.4 - 12.4 fL [facility] Platelets (Bld) [#/Vol] 220 10*3/uL 140 - 440 10*3/uL [facility] RBC (Bld) [#/Vol] 4.97 10*6/uL 3.8 - 5.20 10*6/uL [facility] WBC (Bld) [#/Vol] 14.2 10*3/uL High 3.6 - 10.7 10*3/uL [facility] Comprehensive metabolic 1998 panelon 12-26-2022 Albumin [Mass/Vol] 4.7 g/dL 3.5 - 5.0 g/dL [facility] ALP [Catalytic activity/Vol] 119 U/L 38 - 126 U/L [facility] ALT [Catalytic activity/Vol] 32 U/L 0 - 34 U/L [facility] Anion gap [Moles/Vol] 12 mmol/L 3 - 13 mmol/L [facility] AST [Catalytic activity/Vol] 42 U/L 15 - 46 U/L [facility] Bilirubin [Mass/Vol] 0.6 mg/dL 0.2 - 1 .3 mg/dL [facility] Calcium [Mass/Vol] 9.9 mg/dL 8.4 - 10. 4 mg/dL [facility] Chloride [Moles/Vol] 106 mmol/L 98 - 10 7 mmol/L [facility] CO2 [Moles/Vol] 23 mmol/L 22 - 30 mmol/L [facility] Creatinine [Mass/Vol] 0.52 mg/dL 0.52 - 1.04 mg/dL [facility] GFR/1.73 sq M.predicted MDRD (S/P/Bld) [Vol rate/Area] - PINF [facility] Comment on above: Calculation based on the Chronic Kidney Disease Epidemiology Collaboration (CKD-EPI) equation refit without adjustment for race Glucose [Mass/Vol] 86 mg/dL 70 - 100 mg/dL [facility] Interpretation and review of laboratory results Abnormal [facility] Potassium [Moles/Vol] 4.2 mmol/L 3.5 - 5.1 mmol/L [facility] Protein [Mass/Vol] 9.2 g/dL High 6.3 - 8.2 g/dL [facility] Sodium [Moles/Vol] 140 mmol/L 135 - 145 mmol/L [facility] Urea nitrogen [Mass/Vol] 6 mg/dL Low 7 - 17 mg/dL [facility] Slightly Hemolyzed. Interpret ALBUMIN, ALKALINE PHOSPHATASE, AST, POTASSIUM, and TOTAL PROTEIN with caution. [facility] N. gonorrhoeae DNA JJ+probe Ql (Cervical mucus)on 12-26-2022 C. trachomatis DNA JJ+probe Ql (Unsp spec) Not detected Not Detected [facility] Interpretation and review of laboratory results Normal [facility] N gonorrhoeae, DNA Probe Not detected Not Detected [facility] Methodology: real-ti me PCR This test is intended for medical purposes only and is not intended for the evaluation of suspected sexual abuse or for other forensic purposes. In certain contexts, culture may be required to meet applicable laws and regulations for diagnosis of C. trachomatis and N. gonorrhoeae infections. Per 2014 CDC recommmendations, this test does not include confirmation of positive results by an alternative nucleic acid target. A negative result does not exclude the possibility of infection. A result of invalid indicates that a new specimen should be collected if clinically indicated. [facility] Progress Noteon 12-26-2022 Progress Note Department of Obstet rics and Gynecology Labor and Delivery Triage Note CHIEF COMPLAINT: Headache HISTORY OF PRESENT ILLNESS: The patient is a 32 y.o. 18w5d. OB History 6 Para 0 Term AB 5 Living 0 SAB IAB Ectopic Multiple Live Births Patient presents with a chief complaint as above. Patient states for the last week and a half she has been having a headache. States the headache is a pressure feeling throughout her head, not localized to one area. She states she occasionally gets floaters in her vision due to the headache. She denies any nausea or vomiting at this time. She has tried Excedrin Tension Headache at home, she did try it today, it has not provided any relief. She denies any chest pain, RUQ pain, SOB. Denies VB/LOF/CTX Estimated Due Date: Estimated Date of Delivery: 05/24/23 PAST MEDICAL HISTORY: Past Medical History: Diagnosis Date Asthma GERD (gastroesophageal reflux disease) Infertility, female Joint pain b/l knees, b/l ankles Lupus anticoagulant affecting in second trimester, antepartum (HCC) Migraines Obesity Sinus tachycardia PAST SURGICAL HISTORY: Past Surgical History: Procedure Laterality Date CHOLECYSTECTOMY CVHX IMPLANTABLE LOOP RECORDER SYSTEM 08/23/2022 TONSILLECTOMY (HISTORICAL) WISDOM TOOTH EXTRACTION SOCIAL HISTORY: reports that she has never smoked. She has never used smokeless tobacco. She reports that she does not drink alcohol and does not use drugs. MEDICATIONS: Prior to Admission medications Medication Sig Start Date End Date Taking? Authorizing Provider ascorbic acid (Vitamin C) 500 MG tablet Take 500 mg by mouth 2 times daily. Historical Provider, aspirin 81 MG EC tablet Take 162 mg by mouth daily. Historical Provider, cholecalciferol (Vitamin D3) 200 Unit tablet split tablet Take by mouth. Historical Provider, enoxaparin (Lovenox) 40 MG/0.4ML solution prefilled syringe Inject 40 mg under the skin daily. Historical Provider, labetalol (Normodyne) 200 MG tablet Take 1 tablet (200 mg) by mouth 3 times daily. 12/24/22 06/22/23 Shahnaz Hahn, levothyroxine (Synthroid, Levoxyl) 50 MCG tablet Take 50 mcg by mouth every morning (before breakfast). Historical Provider, [id number]-3 ( GUMMIES/DHA & FA PO) Take 2 tablets by mouth daily. Historical Provider, sodium chloride 0.9 % nebulizer solution with albuterol (5 MG/ML) 0.5% nebulizer solution 0.9 mg/mL Inhale 2 puffs 4 times daily as needed. Historical Provider, labetalol (Normodyne) 100 MG tablet Take 100 mg by mouth in the morning and 100 mg in the evening. 12/05/22 12/24/22 Historical Provider, labetalol (Normodyne) 200 MG tablet Take 200 mg by mouth 2 times daily. 12/24/22 Historical Provider, CARE: Complicated by: cHTN, APLS, Obesity, Hypothyroidism REVIEW OF SYSTEMS: Pertinent items are noted in HPI. APPEARANCE: Pain: No PHYSICAL EXAM: Vital Signs: Elevated BPs/Respirations normal effort Vitals: 12/26/22 1505 BP: (!) 158/74 Pulse: 90 Resp: 20 Temp: 36.7 ?C (98.1 ?F) TempSrc: Oral Abdomen: soft, NT, ND, no rebound/guarding Uterus: gravid/non-tender LE Edema: trace Speculum Exam: Defer heart rate: 146 by doppler Cervix: Defer RESULTS: Procedures GENERAL LABS: No results found for this or any previous visit (from the past 24 hour(s)). TRIAGE COURSE: Patient reports persistent headache despite treatment at home today with Excedrin tension headache. Based on description of headache does not sound like a tension headache, symptoms similar to migraine and patient does have a history of migraines. Will treat with IV Reglan 10 mg. BP elevated 158/76. Started on Labetalol 200 TID last Sunday. Other than headache no symptoms of preeclampsia. Will obtain CBC and CMP. FHR 146 with bedside ultrasound. Patient admitted to maternal medicine service for further management of headache. ESSION: Headache DISCUSSED WITH PNC PROVIDER: Dr. Dao DISPOSITION: Admit to Antepartum (PNU) Normal [facility] [employer] Authentication Interface Message Text Visit Subjective: Ambika Brown is being seen today for an obstetrical visit. She is at 18w5d gestation. Her obstetrical history is significant for: Recurrent loss- Antiphospholipid antibody syndrome with +Lupus anticoagulant Hx Pre-diabetes CHTN BMI >50 Chronic migraines [place] on CPAP Hypothyroidism Intermittent SVT and syncope with loop recorder in place history fully reviewed. Anxiety Vit D deficiency She is unaccompanied. Ambika denies any cramping, contractions, vaginal bleeding, unusual or increase in vaginal discharge, signs and symptoms of pre-eclampsia, or leaking of any fluid. Patient with positive movement. Review of Systems All other systems reviewed and are negative. Reports ongoing migraine, occipital Objective: BP 131/79 Pulse 96 Wt (!) 151.1 kg (333 lb 1.6 oz) SpO2 95% BMI 51.40 kg/m Physical Exam Nursing note and vitals reviewed. Constitutional: Appearance: She is well-developed and well-nourished. Pulmonary: Effort: Pulmonary effort is normal. Abdominal: Comments: gravid Musculoskeletal: General: Normal range of motion. Neurological: Mental Status: She is alert and oriented to person, place, and time. Skin: General: Skin is warm and dry. Psychiatric: Mood and Affect: Mood and affect normal. Behavior: Behavior normal. FHT: Positive Assessment/Plan: Ambika Brown is a 32 y.o. at 18w5d with: Active Non-Hospital Problems Diagnosis Date Noted Vitamin D deficiency 11/06/2022 Vit D 19 on 10/06 Rec Vit D3 1000-2000IU daily- taking Plan repeat in 3 months Reviewed on 12/26/2022 Disease of respiratory system affecting in second trimester 10/06/2022 Asthma Nervous system disease affecting in second trimester, antepartum 10/06/2022 migraines Supervision of other high risk pregnancies, second trimester 10/06/2022 PLAN OF CARE MD/OB APPOINTMENTS Genetic screening: see GC notes, unable to obtain NT How often should patient be evaluated? Monthly to 28 weeks, q 2 weeks from 28 to 36 weeks then weekly until delivery Work restrictions: NA EVALUATION surveillance: BPP once- twice weekly at 32 weeks Ultrasound: anatomy, growth every 4 weeks DELIVERY PLAN Hospital: [facility] Induction at 37 weeks (CHTN, hx)- GBS culture: Contraception: : Reviewed on 12/26/2022 Uncomplicated asthma Has inhaler for prn use No recent exacerbations Reviewed on 12/26/2022 Pre-existing hypertension during in second trimester CHTN- was on Metoprolol but stopped taking 10/05/21 BP cuff ordered. Instructed on BID BP check. Parameters to notify office 140/90 or greater. PEC labs ordered-Normal UPCR 0.15 Currently taking BASA -Monitor Bps at home. -Start meds for persistent HTN >140/90 -Beta blockade preferred to procardia given h/o SVT and ectopy -Serial growth every 4 weeks - testing at 32 weeks (once or twice weekly pending course). -Delivery by 38 weeks unless indicated sooner. 12/05: Pt met with [facility] today- BP elevate in office, they will defer to MFM for management. Plans f/u PP. Rx sent for labetalol 100 mg BID. Pt to check BP at home and report next week for med adjustment if needed. Will plan for in office appt in 2 weeks for review. Precautions reviewed with pt, encouraged to call with any concerns. 12/18/22: just started Labetalol 100mg BID 12/16/22 BP 134/86. Pt will track BP BID at home and report 140/90 or greater 12/26: pt recently in triage with concerns for elevated BP at home, BP WNL in triage. PC ratio 0.47 in triage. Labetalol dose adjusted to 200 mg TID. BP stable today in office. BP correlated with home cuff and readings not similar. Pt to return home cuff. Precautions reviewed with pt and encouraged pt to take BP at drug store until new cuff received. Will correlate new cuff at future appt. Reviewed on 12/26/2022 Maternal cardiovascular disease, antepartum, second trimester PVCs/ palpitations, Intermittent SVT Syncopal episodes Structurally normal heart, normal stress test, normal head imaging EP attempted Ablation- however, could not elicit any dysrhytmia to ablate. No syncope since 06/2022. Implantable loop recorder placed 08/2022. Follows with [facility] cardiology- appt December 05- no changes at appt, f/u PP -Continue close co-management with cardiology -If treatment needed, beta blockade preferred (metoprolol, labetalol). -check electrolytes qtrimester or more frequent with symptoms, maintain Mag level >2.0. Maternal morbid obesity, antepartum, second trimester PP BMI 51 A1C 6.2 in 08/202210/06/22 A1C 5.8 Early 1 hr ordered- 10/06/22- 122. Repeat 24 weeks. Vit D ordered - low 19.2- supplementation recommended 11/06 Pt reports folate in her PNV Nutrition consult complete 11/21 Pt does have glucometer/supplies prn Reviewed on 12/26/2022 (more content not included)... Normal [facility] T. vaginalis DNA JJ+probe Q l (Genital specimen)on 12-26-2022 Interpretation and review of laboratory results Normal [facility] Trichomonas vaginalis Not detected Not Detected [facility] Methodology: real-ti me PCR A negative result does not completely rule out infection with T. vaginalis. Results should be interpreted in conjunction with other clinical data. This test has not been validated for use with self-collected vaginal swab specimens from patients. This test is intended for medical purposes only and is not intended for the evaluation of suspected sexual abuse or for other forensic purposes. [facility] [employer] CBC panel Auto (Bld)Ordered By: Eneida Sanchez on 12-24-2022 Erythrocyte distribution width (RBC) [Ratio] 15.9 % High 11.5 - 14.5 % [facility] Hematocrit (Bld) [Volume fraction] 34.9 % Low 35.0 - 47.0 % [facility] Hemoglobin (Bld) [Mass/Vol] 11.4 g/dL Low 11.7 - 16.0 g/dL [facility] Interpretation and review of laboratory results Abnormal [facility] MCH (RBC) [Entitic mass] 26.3 pg 26.0 - 34.0 pg [facility] MCHC (RBC) [Mass/Vol] 32.7 % 32.0 - 36.0 % [facility] MCV (RBC) [Entitic vol] 80.5 fL 80.0 - 98.0 fL [facility] Platelet mean volume (Bld) [Entitic vol] 9.7 fL 7.4 - 12.4 fL [facility] Platelets (Bld) [#/Vol] 187 10*3/uL 140 - 440 10*3/uL [facility] RBC (Bld) [#/Vol] 4.34 10*6/uL 3.8 - 5.20 10*6/uL [facility] WBC (Bld) [#/Vol] 12.3 10*3/uL High 3.6 - 10.7 10*3/uL [facility] Comprehensive metabolic 1998 panelon 12-24-2022 Albumin [Mass/Vol] 3.6 g/dL 3.5 - 5.0 g/dL [facility] ALP [Catalytic activity/Vol] 92 U/L 38 - 126 U/L [facility] ALT [Catalytic activity/Vol] 23 U/L 0 - 34 U/L [facility] Anion gap [Moles/Vol] 7 mmol/L 3 - 13 mmol/L [facility] AST [Catalytic activity/Vol] 26 U/L 15 - 46 U/L [facility] Bilirubin [Mass/Vol] 0.3 mg/dL 0.2 - 1 .3 mg/dL [facility] Calcium [Mass/Vol] 9.2 mg/dL 8.4 - 10. 4 mg/dL [facility] Chloride [Moles/Vol] 107 mmol/L 98 - 10 7 mmol/L [facility] CO2 [Moles/Vol] 21 mmol/L Low 22 - 30 mmol/L [facility] Creatinine [Mass/Vol] 0.44 mg/dL Low 0.52 - 1.04 mg/dL [facility] GFR/1.73 sq M.predicted MDRD (S/P/Bld) [Vol rate/Area] - PINF [facility] Comment on above: Calculation based on the Chronic Kidney Disease Epidemiology Collaboration (CKD-EPI) equation refit without adjustment for race Glucose [Mass/Vol] 83 mg/dL 70 - 100 mg/dL [facility] Interpretation and review of laboratory results Abnormal [facility] Potassium [Moles/Vol] 3.7 mmol/L 3.5 - 5.1 mmol/L [facility] Protein [Mass/Vol] 6.8 g/dL 6.3 - 8.2 g/dL [facility] Sodium [Moles/Vol] 135 mmol/L 135 - 145 mmol/L [facility] Urea nitrogen [Mass/Vol] 6 mg/dL Low 7 - 17 mg/dL [facility] Creatinine (U) [Mass/Vol]on 12-24-2022 CREATININE, URINE 34.7 mg/dL No Range [facility] Laboratory - Chemistry and C hemistry - challengeon 12-24-2022 TSH Qn 3.129 m[IU]/L [facility] Laboratory - Urinalysison Protein (U) [Mass/Vol] 16 mg/dL High 0 - 12 mg/dL [facility] No Panel Informationon 12-24 Interpretation and review of laboratory results Abnormal [facility] Progress Noteon 12-24-2022 Progress Note ---- -------- Attestation signed by Jenelle Chandler MD at 12/24/2022 9:31 PM Hospital Care (Independent): I independently saw and evaluated the patient. I agree with the findings and plan of care as documented in the resident's note. -------- Department of Obstetrics and Gynecology Labor and Delivery Triage Note CHIEF COMPLAINT: Elevated BP HISTORY OF PRESENT ILLNESS: The patient is a 32 y.o. 18w3d. OB History 6 Para 0 Term AB 5 Living 0 SAB IAB Ectopic Multiple Live Births Patient presents with a chief complaint as above. Patient has known cHTN, having elevated BP's at home. Has had headaches intermittently, uses tylenol sometimes but does not like to use meds if possible. Otherwise no vision changes, RUQ pain or SOB. Denies VB/LOF/CTX Estimated Due Date: Estimated Date of Delivery: 05/24/23 PAST MEDICAL HISTORY: Past Medical History: Diagnosis Date Asthma GERD (gastroesophageal reflux disease) Infertility, female Joint pain b/l knees, b/l ankles Lupus anticoagulant affecting in second trimester, antepartum (HCC) Migraines Obesity Sinus tachycardia PAST SURGICAL HISTORY: Past Surgical History: Procedure Laterality Date CHOLECYSTECTOMY CVHX IMPLANTABLE LOOP RECORDER SYSTEM 08/23/2022 TONSILLECTOMY (HISTORICAL) WISDOM TOOTH EXTRACTION SOCIAL HISTORY: reports that she has never smoked. She has never used smokeless tobacco. She reports that she does not drink alcohol and does not use drugs. MEDICATIONS: Prior to Admission medications Medication Sig Start Date End Date Taking? Authorizing Provider labetalol (Normodyne) 100 MG tablet Take 100 mg by mouth in the morning and 100 mg in the evening. 12/05/22 12/24/22 Yes Historical Provider, aspirin 81 MG EC tablet Take 162 mg by mouth daily. Historical Provider, cholecalciferol (Vitamin D3) 200 Unit tablet split tablet Take by mouth. Historical Provider, enoxaparin (Lovenox) 40 MG/0.4ML solution prefilled syringe Inject 40 mg under the skin daily. Historical Provider, labetalol (Normodyne) 200 MG tablet Take 200 mg by mouth 2 times daily. Historical Provider, levothyroxine (Synthroid, Levoxyl) 50 MCG tablet Take 50 mcg by mouth every morning (before breakfast). Historical Provider, sodium chloride 0.9 % nebulizer solution with albuterol (5 MG/ML) 0.5% nebulizer solution 0.9 mg/mL Inhale 2 puffs 4 times daily as needed. Historical Provider, CARE: Complicated by: cHTN, APLS, Obesity, Hypothyroidism REVIEW OF SYSTEMS: Pertinent items are noted in HPI. APPEARANCE: Pain: No PHYSICAL EXAM: Vital Signs: VS wnl-reviewed/Respiration s normal effort Vitals: 12/24/22 1903 12/24/22 1904 BP: 139/68 Pulse: 87 Resp: 16 Temp: 36.7 ?C (98.1 ?F) 36.7 ?C (98 ?F) TempSrc: Oral Weight: (!) 150 kg (330 lb) Height: 1.715 m (5' 7.5) Abdomen: soft, NT, ND, no rebound/guarding Uterus: gravid/non-tender LE Edema: trace Speculum Exam: defer heart rate: 156 Cervix: defer Contraction frequency: none RESULTS: NST: N/A Procedures GENERAL LABS: Recent Results (from the past 24 hour(s)) CBC Collection Time: 12/24/22 8:01 PM Result Value Ref Range Auto WBC 12.3 (H) 3.6 - 10.7 10*3/uL RBC 4.34 3.8 - 5.20 10*6/uL Hemoglobin 11.4 (L) 11.7 - 16.0 g/dL Hematocrit 34.9 (L) 35.0 - 47.0 % MCV 80.5 80.0 - 98.0 fL MCH 26.3 26.0 - 34.0 pg MCHC 32.7 32.0 - 36.0 % RDW 15.9 (H) 11.5 - 14.5 % Platelets 187 140 - 440 10*3/uL MPV 9.7 7.4 - 12.4 fL Comprehensive metabolic panel Collection Time: 12/24/22 8:01 PM Result Value Ref Range SODIUM 135 135 - 145 mmol/L POTASSIUM 3.7 3.5 - 5.1 mmol/L CHLORIDE 107 98 - 107 mmol/L CARBON DIOXIDE 21 (L) 22 - 30 mmol/L ANION GAP 7 3 - 13 mmol/L UREA NITROGEN 6 (L) 7 - 17 mg/dL CREATININE 0.44 (L) 0.52 - 1.04 mg/dL GLUCOSE 83 70 - 100 mg/dL CALCIUM 9.2 8.4 - 10.4 mg/dL AST (SGOT) 26 15 - 46 U/L ALT 23 0 - 34 U/L ALKALINE PHOSPHATASE 92 38 - 126 U/L ALBUMIN 3.6 3.5 - 5.0 g/dL BILIRUBIN, TOTAL 0.3 0.2 - 1.3 mg/dL TOTAL PROTEIN 6.8 6.3 - 8.2 g/dL eGFR >90.0 >60.0 mL/min/1.73m*2 Protein, urine, random Collection Time: 12/24/22 8:01 PM Result Value Ref Range TOTAL PROTEIN, UR 16 (H) 0 - 12 mg/dL Creatinine, urine, random Collection Time: 12/24/22 8:01 PM Result Value Ref Range CREATININE, URINE 34.7 No Range mg/dL TRIAGE COURSE: BP normotensive here, patient bought BP off of [employer] due to gonzalez. PreE labs obtains and wnl. UPC 0.470, no baseline on file and confirmed with Dr. Neves. Patient received Excedrin for headache, very mild and did not want anything for it to begin with. Patient currently on Labetalol 200mg BID, BP readings review (more content not included)... 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 Multiple medical problems see chart I advised to go to labor and delivery triage and we talked about a possible admission pending her work up. She was given the address and will come to triage for evaluation. Kin Neves MD 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 She is at 17w4d gestation. Her obstetrical history is significant for .Recurrent loss- Antiphospholipid antibody syndrome with +Lupus anticoagulant Hx Pre-diabetes CHTN BMI >50 Chronic migraines HOSEA on CPAP Hypothyroidism Intermittent SVT and syncope with loop recorder in place history fully reviewed. Anxiety Vit D deficiency She is unaccompanied. Vaginal Bleeding During Ambika denies any vaginal bleeding at this time. Vaginal DischargeAmanda denies any unusual or increase in vaginal discharge. Rupture of Membranes/Leaking Fluid The patient denies any leaking of fluid at this time. Signs and Symptoms of Preeclampsia Ambika is presenting with no preeclampsia symptoms. Review of Systems Constitutional: Appetite has improved with advancing Respiratory: Difficulty wearing CPAP mask with side sleeping, nasal congestion. Only 1 snoring event in past few weeks Genitourinary: Episode of bladder pain with full bladder. Resolved after emptying and standing. Musculoskeletal: Left round ligament discomfort, sporatic All other systems reviewed and are negative. Objective: BP 134/86 Wt (!) 149.7 kg (330 lb) BMI 50.92 kg/m Physical Exam Vitals reviewed. Constitutional: Appearance: She is well-developed and well-nourished. HENT: Head: Atraumatic. Pulmonary: Effort: Pulmonary effort is normal. Abdominal: Comments: gravid Musculoskeletal: General: Normal range of motion. Neurological: Mental Status: She is alert and oriented to person, place, and time. Psychiatric: Mood and Affect: Mood and affect normal. Behavior: Behavior normal. Thought Content: Thought content normal. Judgment: Judgment normal. FHT: 148 Presentation: N/A Assessment/Plan: Ambika Brown is a 32 y.o. at 17w4d with: Active Non-Hospital Problems Diagnosis Date Noted Vitamin D deficiency 11/06/2022 Vit D 19 on 10/06 Rec Vit D3 1000-2000IU daily- taking Plan repeat in 3 months Reviewed on 12/18/2022 Disease of respiratory system affecting in second trimester 10/06/2022 Asthma Nervous system disease affecting in second trimester, antepartum 10/06/2022 migraines Supervision of other high risk pregnancies, second trimester 10/06/2022 PLAN OF CARE MD/OB APPOINTMENTS Genetic screening: see GC notes, unable to obtain NT How often should patient be evaluated? Monthly to 28 weeks, q 2 weeks from 28 to 36 weeks then weekly until delivery Work restrictions: NA EVALUATION surveillance: BPP once- twice weekly at 32 weeks Ultrasound: anatomy, growth every 4 weeks DELIVERY PLAN Hospital: [facility] Induction at 38 weeks (CHTN)- GBS culture: Contraception: : Reviewed on 12/18/2022 Uncomplicated asthma Has inhaler for prn use No recent exacerbations Reviewed on 12/18/2022 Pre-existing hypertension during in second trimester CHTN- was on Metoprolol but stopped taking 10/05/21 BP cuff ordered. Instructed on BID BP check. Parameters to notify office 140/90 or greater. PEC labs ordered-Normal UPCR 0.15 Currently taking BASA -Monitor Bps at home. -Start meds for persistent HTN >140/90 -Beta blockade preferred to procardia given h/o SVT and ectopy -Serial growth every 4 weeks - testing at 32 weeks (once or twice weekly pending course). -Delivery by 38 weeks unless indicated sooner. 12/05: Pt met with [facility] today- BP elevate in office, they will defer to MFM for management. Plans f/u PP. Rx sent for labetalol 100 mg BID. Pt to check BP at home and report next week for med adjustment if needed. Will plan for in office appt in 2 weeks for review. Precautions reviewed with pt, encouraged to call with any concerns. 12/18/22: just started Labetalol 100mg BID 12/16/22 BP 134/86. Pt will track BP BID at home and report 140/90 or greater Reviewed on 12/18/2022 Maternal cardiovascular disease, antepartum, second trimester PVCs/ palpitations, Intermittent SVT Syncopal episodes Structurally normal heart, normal stress test, normal head imaging EP attempted Ablation- however, could not elicit any dysrhytmia to ablate. No syncope since 06/2022. Implantable loop recorder placed 08/2022. Follows with Dr Conrad, [facility] cardiology- appt December 05- no changes at appt, f/u PP -Continue close co-management with cardiology -If treatment needed, beta blockade preferred (metoprolol, labetalol). -check electrolytes qtrimester or more frequent with symptoms, maintain Mag level >2.0. Maternal morbid obesity, antepartum, second trimester PP BMI 51 A1C 6.2 in 08/202210/06/22 A1C 5.8 Early 1 hr ordered- 10/06/22- 122. Repeat 24 weeks. Vit D ordered - low 19.2- supplementation recommended 11/06 Pt reports folate in her PNV Nutrition consul (more content not included)... 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 She is at 15w5d gestation. Her obstetrical history is significant for: Recurrent loss- Antiphospholipid antibody syndrome with +Lupus anticoagulant Pre-diabetes CHTN BMI >50 Chronic migraines HOSEA on CPAP Hypothyroidism Intermittent SVT and syncope with loop recorder in place. history fully reviewed. She is unaccompanied. Ambika denies any cramping, contractions, vaginal bleeding, unusual or increase in vaginal discharge, signs and symptoms of pre-eclampsia, or leaking of any fluid. Patient with positive movement. Review of Systems All other systems reviewed and are negative. Objective: BP 140/80 Wt (!) 147.8 kg (325 lb 12.8 oz) BMI 50.27 kg/m Physical Exam Nursing note and vitals reviewed. Constitutional: Appearance: She is well-developed and well-nourished. Pulmonary: Effort: Pulmonary effort is normal. Abdominal: Comments: gravid Musculoskeletal: General: Normal range of motion. Neurological: Mental Status: She is alert and oriented to person, place, and time. Skin: General: Skin is warm and dry. Psychiatric: Mood and Affect: Mood and affect normal. Behavior: Behavior normal. FHT: Positive Assessment/Plan: Ambika Brown is a 32 y.o. at 15w5d with: Active Non-Hospital Problems Diagnosis Date Noted Vitamin D deficiency 11/06/2022 Vit D 19 on 10/06 Rec Vit D3 1000-2000IU daily- taking Plan repeat in 3 months Reviewed on 12/05/2022 Respiratory system disease complicating in first trimester 10/06/2022 Asthma Nervous system disease affecting in first trimester, antepartum 10/06/2022 migraines Supervision of other high risk pregnancies, first trimester 10/06/2022 PLAN OF CARE MD/OB APPOINTMENTS Genetic screening: see GC notes, unable to obtain NT How often should patient be evaluated? Monthly to 28 weeks, q 2 weeks from 28 to 36 weeks then weekly until delivery Work restrictions: NA EVALUATION surveillance: BPP once- twice weekly at 32 weeks Ultrasound: anatomy, growth every 4 weeks DELIVERY PLAN Hospital: [facility] Induction at 38 weeks (TN)- GBS culture: Contraception: : Reviewed on 12/05/2022 Uncomplicated asthma Has inhaler for prn use No recent exacerbations Reviewed on 12/05/2022 Pre-existing essential hypertension complicating in first trimester CHTN- was on Metoprolol but stopped taking 10/05/21 BP cuff ordered. Instructed on BID BP check. Parameters to notify office 140/90 or greater. PEC labs ordered-Normal UPCR 0.15 Currently taking BASA -Monitor Bps at home. -Start meds for persistent HTN >140/90 -Beta blockade preferred to procardia given h/o SVT and ectopy -Serial growth every 4 weeks - testing at 32 weeks (once or twice weekly pending course). -Delivery by 38 weeks unless indicated sooner. 12/05: Pt met with [facility] today- BP elevate in office, they will defer to MFM for management. Plans f/u PP. BP elevated in office today, will plan to initiate meds for management. Rx sent for labetalol 100 mg BID. Pt to check BP at home and report next week for med adjustment if needed. Will plan for in office appt in 2 weeks for review. Precautions reviewed with pt, encouraged to call with any concerns. Reviewed on 12/05/2022 Cardiovascular disorder affecting in first trimester PVCs/ palpitations, Intermittent SVT Syncopal episodes Structurally normal heart, normal stress test, normal head imaging EP attempted Ablation- however, could not elicit any dysrhytmia to ablate. No syncope since 06/2022. Implantable loop recorder placed 08/2022. Follows with Dr Conrad, [facility] cardiology- appt December 05- no changes at appt, f/u PP -Continue close co-management with cardiology -If treatment needed, beta blockade preferred (metoprolol, labetalol). -check electrolytes qtrimester or more frequent with symptoms, maintain Mag level >2.0. Maternal morbid obesity, antepartum, first trimester PP BMI 51 A1C 6.2 in 08/202210/06/22 A1C 5.8 Early 1 hr ordered- 10/06/22- 122. Repeat 24 weeks. 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 Reports work-up with Dr Sepulveda- records reviewed- +lupus anticoagulant Negative Anticardiolipin AB and Beta 2 glycoprotein. Negative SIS Normal 46XX maternal karyotype (no paternal karyotype seen). 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 Normal [facility] TSH with Reflex to T4, Freeo n 12-05-2022 TSH with reflex to T4, Free 3.12 [facility] Release to patient->Automatic [facility] TSH with reflex T4FRon 12-05 TSH with reflex T4FR 3.120 uIU/mL Normal 0.300-4.200 [facility] Comment on above: Order Comment: Relea se to patient->Automatic [id number]&Blood Performed By: #### B #### [place] [address] Basophil percentageOrdered B y: ED PROVIDER on 11-29-2022 Chloride [Moles/Vol] 108 mmol/L 98-107 [facility] Glucose [Mass/Vol] 97 mg/dL 74-106 [facility] Potassium [Moles/Vol] 3.5 mmol/L 3.5-5.1 [facility] Sodium [Moles/Vol] 140 mmol/L 136-145 [facility] INR in Blood by Coagulation assayOrdered By: ED PROVIDER on 11-29-2022 INR Coag (Bld) [Relative time] 1.1 {INR} [facility] Laboratory - Chemistry and C hemistry - challengeOrdered By: ED PROVIDER on 11-29-2022 CO2 [Moles/Vol] 23.0 mmol/L 21.0-32.0 [facility] Urea nitrogen/Creatinine [Mass ratio] 15.0 mg/mg 10-20 [facility] Laboratory - CoagulationOrde red By: ED PROVIDER on 11-29-2022 aPTT Coag (Bld) [Time] 26.5 s 24.1-36.2 [facility] PT Coag (PPP) [Time] 13.4 s 11.7-14.9 [facility] No Panel InformationOrdered By: ED PROVIDER on 11-29-2022 Estimated Creatinine Clearance Calc 132.11 ml/min [facility] Estimated GFR (MDRD) Amer 150 mL/min >60 [facility] Comment on above: GFR Calc Estimated GFR (MDRD) Non-Af Amer 124 mL/min >60 [facility] Comment on above: Non- GFR Calc Serum or plasma calcium prieto urement (mass/volume)Ordered By: ED PROVIDER on 11-29-2022 Calcium [Mass/Vol] 9.4 mg/dL 8.5-10.1 [facility] Serum or plasma creatinine m easurement (mass/volume)Ordered By: ED PROVIDER on 11-29-2022 Creatinine [Mass/Vol] 0.60 mg/dL 0.55-1.02 [facility] Comment on above: The validity of the calculated GFR & GFRAA in patients over 70 years has not been determined. Clinical correlation is essential. Serum or plasma urea nitroge n measurement (mass/volume)Ordered By: ED PROVIDER on 11-29-2022 Urea nitrogen [Mass/Vol] 9 mg/dL 7-18 [facility] Thin prep Papanicolaou smear with manual screeningOrdered By: ED PROVIDER on 11-29-2022 Thin prep Papanicolaou smear with manual screening 9 5-15 [facility] Basic Metabolic Panelon 10-12 Calcium [Mass/Vol] 9.2 mg/dL Normal 7.6-11.0 [facility] Comment on above: Order Comment: Relea se to patient->Automatic [id number]&Blood Performed By: #### B MP #### [place] [address] CO2 [Moles/Vol] 20.6 mmol/L Low 22.0-29.0 [facility] Comment on above: Order Comment: Relea se to patient->Automatic [id number]&Blood Performed By: #### B MP #### [address] [address] Creatinine [Mass/Vol] 0.56 mg/dL Normal 0.50-1.[address] [facility] Comment on above: Order Comment: Relea se to patient->Automatic [id number]&Blood Performed By: #### B MP #### [place] [address] Glucose [Mass/Vol] 125 mg/dL High 70-99 [facility] Comment on above: Order Comment: Relea se to patient->Automatic [id number]&Blood Result Comment: Crit elroy for Diagnosis of Diabetes: Fasting Specimen (no caloric intake for at least 8 hours): <100 mg/dL Normal 100-125 mg/dL Increased risk for Diabetes >125 mg/dL Diagnostic for Diabetes Random Glucose (any time of day without regard to last meal): > or = 200 mg/dL plus Classic Symptoms of Diabetes Performed By: #### B MP #### [address] [address] Urea nitrogen [Mass/Vol] 7 mg/dL Normal 4-19 [facility] Comment on above: Order Comment: Relea se to patient->Automatic [id number]&Blood Performed By: #### B MP #### [address] [address] Chloride [Moles/Vol] 103 mmol/L Normal 96-108 [facility] Comment on above: Order Comment: Relea se to patient->Automatic [id number]&Blood Performed By: #### B MP #### [address] [address] Potassium [Moles/Vol] 3.7 mmol/L Normal 3.3-5.[address] [facility] Comment on above: Order Comment: Relea se to patient->Automatic [id number]&Blood Performed By: #### B MP #### [address] [address] Sodium [Moles/Vol] 136 mmol/L Normal 133-145 [facility] Comment on above: Order Comment: Relea se to patient->Automatic [id number]&Blood Performed By: #### B MP #### [address] [address] Calcium [Mass/Vol] 9.2 mg/dL 7.6 - 11. 0 mg/dL [facility] Chloride [Moles/Vol] 103 mmol/L 96 - 10 8 mmol/L [facility] CO2 [Moles/Vol] 20.6 mmol/L Low 22.0 - 29.0 mmol/L [facility] Creatinine [Mass/Vol] 0.56 mg/dL 0.50 - 1.00 mg/dL [facility] Glucose [Mass/Vol] 125 mg/dL High 70 - 99 mg/dL [facility] Comment on above: Criteria for Diagnos is of Diabetes: Fasting Specimen (no caloric intake for at least 8 hours): <100 mg/dL Normal 100-125 mg/dL Increased risk for Diabetes >125 mg/dL Diagnostic for Diabetes Random Glucose (any time of day without regard to last meal): > or = 200 mg/dL plus Classic Symptoms of Diabetes Interpretation and review of laboratory results Abnormal [facility] Potassium [Moles/Vol] 3.7 mmol/L 3.3 - 5.1 mmol/L [facility] Sodium [Moles/Vol] 136 mmol/L 133 - 145 mmol/L [facility] Urea nitrogen [Mass/Vol] 7 mg/dL 4 - 19 mg/dL [facility] Magnesiumon 11-06-2022 Magnesium [Mass/Vol] 2.1 mg/dL Normal 1.5-2.2 [facility] Comment on above: Order Comment: Relea se to patient->[id number]&Blood Performed By: #### M G ####[address] [id number] Magnesium [Mass/Vol] 2.1 mg/dL 1.5 - 2 .2 mg/dL [facility] No Panel Informationon 11-06 Release to patient->Automatic [facility] Progress Noteon 11-06-2022 [employer] Authentication Interface Message Text Visit Subjective: Ambika Brown is being seen today for an obstetrical visit. She is at 11w4d gestation. history fully reviewed. Her obstetrical history is significant for: Recurrent loss- Antiphospholipid antibody syndrome with +Lupus anticoagulant Pre-diabetes CHTN BMI >50 Chronic migraines HOSEA on CPAP Hypothyroidism Intermittent SVT and syncope with loop recorder in place. She is unaccompanied. Review of Systems Gastrointestinal: Positive for nausea. Negative for vomiting and constipation. Genitourinary: Negative for dysuria, vaginal bleeding, vaginal discharge and pelvic pain. All other systems reviewed and are negative. Objective: BP 122/80 Wt (!) 150.8 kg (332 lb 6.4 oz) BMI 51.29 kg/m Physical Exam Nursing note and vitals reviewed. Constitutional: Appearance: She is well-developed and well-nourished. Pulmonary: Effort: Pulmonary effort is normal. Musculoskeletal: General: Normal range of motion. Neurological: Mental Status: She is alert. Skin: General: Skin is warm and dry. Psychiatric: Mood and Affect: Mood and affect normal. Behavior: Behavior normal. FHT: positive by US today Presentation: N/A Uterine Size: N/A Ultrasound: see ultrasound report from today (could not complete NT) Assessment/Plan: Ambika Brown is a 32 y.o. at 11w4d with: Active Non-Hospital Problems Diagnosis Date Noted Vitamin D deficiency 11/06/2022 Vit D 19 on 10/06 Rec Vit D3 1000-2000IU daily Plan repeat in 3 months Reviewed on 11/06/2022 Respiratory system disease complicating in first trimester 10/06/2022 Asthma Nervous system disease affecting in first trimester, antepartum 10/06/2022 migraines Supervision of other high risk pregnancies, first trimester 10/06/2022 Uncomplicated asthma Has inhaler for prn use No recent exacerbations Reviewed on 11/06/2022 Pre-existing essential hypertension complicating in first trimester CHTN- was on Metoprolol but stopped taking 10/05/21 BP cuff ordered. Instructed on BID BP check. Parameters to notify office 140/90 or greater. PEC labs ordered-Normal UPCR 0.15 Currently taking BASA -Monitor Bps at home. -Start meds for persistent HTN >140/90 -Beta blockade preferred to procardia given h/o SVT and ectopy -Serial growth every 4 weeks - testing at 32 weeks (once or twice weekly pending course). -Delivery by 38 weeks unless indicated sooner. BP stable today (initially high, normal on repeat) Reviewed on 11/06/2022 Cardiovascular disorder affecting in first trimester PVCs/ palpitations, Intermittent SVT Syncopal episodes Structurally normal heart, normal stress test, normal head imaging EP attempted Ablation- however, could not elicit any dysrhytmia to ablate. No syncope since 06/2022. Implantable loop recorder placed 08/2022. Follows with Dr Conrad, [facility] cardiology- appt November 30 -Continue close co-management with cardiology -If treatment needed, beta blockade preferred (metoprolol, labetalol). -check electrolytes qtrimester or more frequent with symptoms, maintain Mag level >2.0. Maternal morbid obesity, antepartum, first trimester PP BMI 51 A1C 6.2 in 08/202210/06/22 A1C 5.8 Early 1 hr ordered- 10/06/22- 122. Repeat 24 weeks. 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 Reports work-up with Dr Sepulveda- records reviewed- +lupus anticoagulant Negative Anticardiolipin AB and Beta 2 glycoprotein. Negative SIS Normal 46XX maternal karyotype (no paternal karyotype seen). Met with GC (see notes) - horizon testing pending, partner to also get testing; panorama was low fraction, to have repeat draw today. 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 Reviewed on 11/06/2022 Antiphospholipid antibody s (more content not included)... Normal [facility] Absolute lymphocyte countOrd ered By: Mei Bowen on 10-21-2022 Lymphocytes Auto (Unsp spec) [#/Vol] 2.12 10*3/uL 0.83-4.51 [facility] Basophil percentageOrdered B y: Mei Bowen on 10-21-2022 Basophil percentage 0 SEEN /hpf 0-5 [facility] Basophils/100 WBC (Bld) 0.4 % 0-1 [facility] Chloride [Moles/Vol] 109 mmol/L 98-107 [facility] Eosinophils/100 WBC (Bld) 3.0 % 0-5 [facility] Glucose [Mass/Vol] 103 mg/dL 74-106 [facility] Comment on above: Fasting Glucose resu lt from 100 to 125 mg/dL suggests IMPAIRED HOMEOSTASIS per A.D.A. criteria. Neutrophils (Bld) [#/Vol] 4.8 10*3/uL 2.0-7.7 [facility] Neutrophils/100 WBC (Bld) 60.8 % 47-70 [facility] Potassium [Moles/Vol] 3.8 mmol/L 3.5-5.1 [facility] Sodium [Moles/Vol] 140 mmol/L 136-145 [facility] WBC (Bld) [#/Vol] 7.9 10*3/uL 4.4-11.0 [facility] Bilirubin Test strip Ql (U)O rdered By: Mei Bowen on 10-21-2022 Bilirubin Ql (U) Negative Negative [facility] Blood erythrocytes count (nu mber/volume)Ordered By: Mei Bowen on 10-21-2022 RBC (Bld) [#/Vol] 5.05 10*6/uL 4.2-5.4 [facility] Blood hemoglobin measurement (mass/volume)Ordered By: Mei Bowen on 10-21-2022 Hemoglobin (Bld) [Mass/Vol] 12.9 g/dL 12.0-15.0 [facility] Blood lymphocytes/100 leukoc ytesOrdered By: Mei Bowen on 10-21-2022 Lymphocytes/100 WBC (Bld) 26.9 % 19-41 [facility] Blood monocytes/100 leukocyt esOrdered By: Mei Bowen on 10-21-2022 Monocytes/100 WBC (Bld) 8.6 % 0-10 [facility] Blood platelet mean volumeOr dered By: Mei Bowen on 10-21-2022 Platelet mean volume (Bld) [Entitic vol] 10.9 fL 6.2-12.0 [facility] Determination of erythrocyte mean corpuscular volume (MCV)Ordered By: Mei Bowen on 10-21-2022 MCV (RBC) [Entitic vol] 81.2 fL 81-99 [facility] Hematocrit Auto (Bld) [Volum e fraction]Ordered By: Mei Bowen on 10-21-2022 Hematocrit (Bld) [Volume fraction] 41.0 % 37-47 [facility] Ketones Test strip Ql (U)Ord ered By: Mei Bowen on 10-21-2022 Ketones Ql (U) Negative Negative [facility] Laboratory - Chemistry and C hemistry - challengeOrdered By: Mei Bowen on 10-21-2022 CO2 [Moles/Vol] 24.0 mmol/L 21.0-32.0 [facility] Urea nitrogen/Creatinine [Mass ratio] 17.0 mg/mg 10-20 [facility] Laboratory - Hematology and Cell countsOrdered By: Mei Bowen on 10-21-2022 Erythrocyte distribution width (RBC) [Entitic vol] 45.2 fL 35.1-43.9 [facility] Erythrocyte distribution width (RBC) [Ratio] 15.3 % 11.6-14.6 [facility] Immature granulocytes/100 WBC (Bld) 0.300 % 0.0-0.9 [facility] Comment on above: IG% - Immature Granu locytes (promyelocytes, myelocytes and metamyelocytes) > 1% indicates that a LEFT SHIFT is Present. MCH (RBC) [Entitic mass] 25.5 pg 27.0-32.0 [facility] Nucleated RBC/100 WBC (Bld) [Ratio] 0 % 0-5 [facility] MCHC Auto (RBC) [Mass/Vol]Or dered By: Mei Bowen on 10-21-2022 MCHC (RBC) [Mass/Vol] 31.5 g/dL 32-36 [facility] Mucus LM Ql (Urine sed)Order ed By: Mei Bowen on 10-21-2022 Mucus Ql (Urine sed) 0 SEEN /hpf [facility] Nitrite Test strip Ql (U)Ord ered By: Mei Bowen on 10-21-2022 Nitrite Ql (U) Negative Negative [facility] No Panel InformationOrdered By: Mei Bowen on 10-21-2022 Estimated Creatinine Clearance Calc 121.95 ml/min [facility] Estimated GFR (MDRD) Amer 137 mL/min >60 [facility] Comment on above: GFR Calc Estimated GFR (MDRD) Non-Af Amer 113 mL/min >60 [facility] Comment on above: Non- GFR Calc Platelets bldOrdered By: Fannie Bowen on 10-21-2022 Platelets (Bld) [#/Vol] 206 10*3/uL 150-450 [facility] Protein Test strip Ql (U)Ord ered By: Mei Bowen on 10-21-2022 Protein Ql (U) Negative Negative [facility] Serum or plasma calcium prieto urement (mass/volume)Ordered By: Mei Bowen on 10-21-2022 Calcium [Mass/Vol] 8.9 mg/dL 8.5-10.1 [facility] Serum or plasma choriogonado tropin detectionOrdered By: Mei Bowen on 10-21-2022 HCG ( test) [place]l [address] mIU/mL <4 [facility] Comment on above: hCG levels with Gest ational AgeGestational Age hCG mIU/mL (IU/L)0.2 - 1 week 5 - 501-2 weeks 50 - 5002-3 weeks 100 - 38576-1 weeks 500 - 938107-3 weeks 1000 - 821134-9 weeks 79616 - 100,0006-8 weeks 76560 - 200,0002-3 months 87552 - 100,000 Serum or plasma creatinine m easurement (mass/volume)Ordered By: Mei Bowen on 10-21-2022 Creatinine [Mass/Vol] 0.65 mg/dL 0.55-1.02 [facility] Comment on above: The validity of the calculated GFR & GFRAA in patients over 70 years has not been determined. Clinical correlation is essential. Serum or plasma urea nitroge n measurement (mass/volume)Ordered By: Mei Bowen on 10-21-2022 Urea nitrogen [Mass/Vol] 11 mg/dL 7-18 [facility] Squamous epithelial cells de tection in urine sediment by light microscopyOrdered By: Mei Bowen on 10-21-2022 Epithelial cells.squamous LM Ql (Urine sed) 0 SEEN /hpf 5-10 [facility] Thin prep Papanicolaou smear with manual screeningOrdered By: Mei Bowen on 10-21-2022 Thin prep Papanicolaou smear with manual screening 7 5-15 [facility] Urine blood detectionOrdered By: Mei Bowen on 10-21-2022 RBC Ql (U) 10 /ul Negative [facility] RBC Ql (U) 0 SEEN /hpf 0-5 [facility] Urine clarityOrdered By: Fannie Bowen on 10-21-2022 Clarity (U) Clear Clear [facility] Urine color determinationOrd ered By: Mei Bowen on 10-21-2022 Color (U) Yellow Yellow [facility] Urine glucose detectionOrder ed By: Mei Bowen on 10-21-2022 Glucose Ql (U) Normal mg/dl Normal [facility] Urine leukocyte esterase det ection by dipstickOrdered By: Mei Bowen on 10-21-2022 Leukocyte esterase Test strip Ql (U) Negative Negative [facility] Urine pHOrdered By: Mei graf on 10-21-2022 pH (U) 7.0 [pH] 5.0 - 8.0 [facility] Urine sediment bacteria coun t by microscopy (number/high power field)Ordered By: Mei Bowen on 10-21-2022 Bacteria LM.HPF (Urine sed) [#/Area] 0 /[HPF] None Seen [facility] Urine specific gravity measu rementOrdered By: Mei Bowen on 10-21-2022 Specific gravity (U) [Rel density] 1.010 1.002-1.030 [facility] Urobilinogen Auto test strip Ql (U)Ordered By: Mei Bowen on 10-21-2022 Urobilinogen Ql (U) Normal mg/dl Normal [facility] Progress Noteon 10-12-2022 Automotive Maintenance Technician Authentication Interface Message Text [facility] MATERNAL- MEDICINE CONSULT Referring/Requesting Provider: Bárbara Mason APRN-* PCP: Mega Weeks MD INDICATION FOR CONSULT: Complex medical history HISTORY OF PRESENT ILLNESS: Patient is a 32 y.o. 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 She reports a workup with Dr. Sepulveda with NEHEMIAH and had a positive lupus anticoagulant. Records not available. She is taking Lovenox 40mg dialy and bASA. She has a ?h/o Type 2 DM but is on no medications. HbA1C is consistent with pre-diabetes, 5.8 on 10/06/22. She had a normal early 1hr GCT of 122. She has CHTN diagnosed fall 2020. She was placed on metoprolol for an arrythmmia (see below) and was told this would help with her BP as well. No longer taking. She has normal baseline preeclampsia labs and P:C ratio is 0.15. BMI 51 Chronic migraines- previously controlled with Botox- last used June 2022. CT Head normal 04/2022. Has a plan with her neuro for LONG management during to include cyproheptadine (antihistamine safe in ). Obstructive sleep apnea- has CPAP but has not been compliant due to mask issues. Working on getting a new face mask. Hypothyroidism. She states she was just told by Dr. Sepulveda that she is starting medications, but hasnt picked up yet. I do not have records for her TSH. Intermittent SVTwith PVCs and h/o syncope: Last syncope 07/01. She last saw [facility] in Jul 2022. I reviewed the notes for that visit. Her history is pertinent for syncope in Jun 2021 while in ER and another in PCU. She had two separate episodes of 2-3 beat ventricular tachycardia. She had a negative cardiac stress test and normal echo while admitted (06/2021). She was seen by Dr. Rock in 11/2021 and cardiac monitoring and EKGs demonstrated long RP tachycardia consistent with sinus or atrial tachycardia. She underwent EP eval on 02/13/2022 which was unable to provoke any dysrhythmia and therefore nothing to ablate. She had recurrent syncope in March 2022 and was seen in ED. She had NSR and HR of 87bpm. She also had an unremarkable CT Head in Apr 2022 to rule out neuro pathology. Another episode of syncope in 07/01 while in clinicals. Her apple watch demonstrated HR up to 130s and she awoke on the floor. She then had loop recorder placed Aug 2022 for SVT and has ongoing management with cardiology. Her only current medications include: Lovenox 40mg, PNV, bASA, and progesterone Today the patient denies any OB complaints. She denies abdominal pain,vaginal bleeding. OB History Para Term AB Living 6 0 0 0 5 0 SAB IAB Ectopic Multiple Live Births 4 0 1 0 0 # Outcome Date GA Lbr Marco/2nd Weight Sex Delivery Anes PTL Lv 6 Current 5 Ectopic 03/2021 6w0d Comments: right tube, took methotrexate 4 SAB 06/2019 6w0d Comments: D&C 3 SAB 12/2018 7w0d 2 07/2017 5w0d 1 10/2016 5w0d Past Medical History: Diagnosis Date Cardiac abnormality Depression Diabetes mellitus, type 2 Hypertension Infertility, female Migraine headache Thyroid disease Uncomplicated asthma Past Surgical History: Procedure Laterality Date CARDIAC ABLATION attempted summer 2021 without success CHOLECYSTECTOMY DILATION AND CURETTAGE OF UTERUS TONSILLECTOMY WISDOM TOOTH EXTRACTION PERTINENT FAMILY HISTORY: Family History Problem Relation Age of Onset High Blood Pressure Father Diabetes Mellitus II Maternal Grandmother Cancer Maternal Grandmother uterine Diabetes Mellitus II Maternal Grandfather Stroke Paternal Grandmother Cancer Paternal Grandmother bladder Heart Disease Paternal Grandfather MEDS: Current Outpatient Medications Medication Sig Dispense Refill Last Dispense Assistance Program Adherence Comment Progesterone [address] 400 mg vaginally 2 times daily for 180 days 7-36 weeks (PTL). (Patient taking differently: Place 400 mg vaginally 2 times daily Taking 200 vaginally BID7-36 weeks (PTL).) 120 Capsule 3 Unknown (outside pharmacy) . Refill history: . MV & Min w/FA-DHA ( GUMMIES PO) Take by mouth daily Unknown (patient-reported) . Refill history: . Enoxaparin Sodium (LOVENOX) SQ Inject 0.4 mL (40 mg) into the skin daily 30 Each 8 Unknown (outside pharmacy) . Refill history: . aspirin 81 MG chewable tablet Take 1 Tablet (81 mg) by mouth 2 times daily 30 Tablet 8 Unknown (outside pharmacy) . Refill history: . Blood Pressure Monitoring (BLOOD PRESSURE MONITOR AUTOMAT) JAY Use as directed during . Report BP 140/90 or greater (Patient not taking: Reported on 10/12/2022) 1 Each 0 Unknown (outside pharmacy) . Refill history: . ALLERGY: Allergies Allergen Reactions Benadryl [Diphenhydramine] Palpitations Compazine [Prochlorperazine] Anxiety PHYSICAL EXAM: VITAL SIGNS: BP 130/70 Wt (!) 151.4 kg (333 lb 12 (more content not included)... Normal [facility] Progress Noteon 10-09-2022 Automotive Maintenance Technician Authentication Interface Message Text Patient called in this evening at 7 weeks GA with some pinkish vaginal discharge. She is extremely worried as this is how some of her miscarriages have started in the past. She is wondering if there s anything else that we can do for her at this time. I discussed with her that vaginal progesterone has been shown in some small studies to help with recurrent miscarriage, but not universally accepted. It may not help prevent loss but it likely will not do any harm to the . I offered to start this for her and she agreed. RX sent for vaginal progesterone 400 mg BID to her pharmacy. Dr. Benjy Rodriguez [facility] Culture, urineOrdered By: GOOD MASON on 10-08-2022 Bacteria identified Cx Nom (U) Positive [facility] Absolute lymphocyte countOrd ered By: BÁRBARA MASON on 10-06-2022 Lymphocytes Auto (Unsp spec) [#/Vol] 2.14 10*3/uL 0.83-4.51 [facility] Basophil percentageOrdered B y: BÁRBARA MASON on 10-06-2022 Basophils/100 WBC (Bld) 0.4 % 0-1 [facility] Bilirubin [Mass/Vol] 0.30 mg/dL 0.20-1.00 [facility] Comment on above: For patients on eltr ombopag therapy, use of Dimension [place] TBIL is not recommended. C. trachomatis DNA JJ+probe Ql (Unsp spec) Negative Negative [facility] Chloride [Moles/Vol] 105 mmol/L 98-107 [facility] Eosinophils/100 WBC (Bld) 2.7 % 0-5 [facility] Glucose [Mass/Vol] 122 mg/dL 74-106 [facility] Comment on above: Fasting Glucose resu lt from 100 to 125 mg/dL suggests IMPAIRED HOMEOSTASIS per A.D.A. criteria. LDH [Catalytic activity/Vol] 186 U/L 84-246 [facility] Neutrophils (Bld) [#/Vol] 5.5 10*3/uL 2.0-7.7 [facility] Neutrophils/100 WBC (Bld) 65.0 % 47-70 [facility] Potassium [Moles/Vol] 3.4 mmol/L 3.5-5.1 [facility] Protein [Mass/Vol] 7.8 g/dL 6.4-8.2 [facility] Sodium [Moles/Vol] 139 mmol/L 136-145 [facility] WBC (Bld) [#/Vol] 8.4 10*3/uL 4.4-11.0 [facility] Blood erythrocytes count (nu mber/volume)Ordered By: BÁRBARA MASON on 10-06-2022 RBC (Bld) [#/Vol] 4.98 10*6/uL 4.2-5.4 [facility] Blood hemoglobin measurement (mass/volume)Ordered By: BÁRBARA MASON on 10-06-2022 Hemoglobin (Bld) [Mass/Vol] 12.8 g/dL 12.0-15.0 [facility] Blood lymphocytes/100 leukoc ytesOrdered By: BÁRBARA MASON on 10-06-2022 Lymphocytes/100 WBC (Bld) 25.4 % 19-41 [facility] Blood monocytes/100 leukocyt esOrdered By: BÁRBARA MASON on 10-06-2022 Monocytes/100 WBC (Bld) 6.3 % 0-10 [facility] Blood platelet mean volumeOr dered By: BÁRBARA MASON on 10-06-2022 Platelet mean volume (Bld) [Entitic vol] 11.7 fL 6.2-12.0 [facility] Determination of erythrocyte mean corpuscular volume (MCV)Ordered By: BÁRBARA MASON on 10-06-2022 MCV (RBC) [Entitic vol] 82.9 fL 81-99 [facility] Gestational diabetes screen 1-hour screen with 50g oral glucose loadOrdered By: BÁRBARA MASON on 10-06-2022 Glucose 1 Hr post 50 g glucose PO [Mass/Vol] 122 mg/dL 70-140 [facility] HBV surface Ag IA Qlon 10-06 External Hepatitis B Surface Ag Negative Negative, None Detected [facility] [employer] HCV Ab IA Qlon 10-06-2022 [facility] HEPATITIS C ANTIBODY, EXTERNAL RESULT Negative [facility] HIV 1 and HIV-2 antibody ass ay with HIV-1 p24 antigen detectionOrdered By: BÁRBARA MASON on 10-06-2022 HIV 1+2 Ab+HIV1 p24 Ag IA Ql Non-Reactive Nonreactive [facility] HIV 1+2 Ab and HIV1 p24 Ag I A.rapid Nom (S/P/Bld)on 10-06-2022 HIV-1/HIV-2 Ab Negative [facility] HbA1c (Bld) [Mass fraction]o n 10-06-2022 HbA1c (Bld) [Mass/Vol] 5.8 % Abnormal - 5.7 % [facility] Interpretation and review of laboratory results Abnormal [facility] Hematocrit Auto (Bld) [Volum e fraction]Ordered By: BÁRBARA MASON on 10-06-2022 Hematocrit (Bld) [Volume fraction] 41.3 % 37-47 [facility] Laboratory - Chemistry and C hemistry - challengeOrdered By: BÁRBARA MASON on 10-06-2022 ALP [Catalytic activity/Vol] 86 U/L 45-117 [facility] ALT [Catalytic activity/Vol] 40 U/L 13-56 [facility] CO2 [Moles/Vol] 26.0 mmol/L 21.0-32.0 [facility] Globulin (S) [Mass/Vol] 4.6 g/dL 2.2-4.2 [facility] Urea nitrogen/Creatinine [Mass ratio] 11.8 mg/mg 10-20 [facility] Laboratory - Hematology and Cell countsOrdered By: BÁRBARA MASON on 10-06-2022 Erythrocyte distribution width (RBC) [Entitic vol] 48.4 fL 35.1-43.9 [facility] Erythrocyte distribution width (RBC) [Ratio] 15.9 % 11.6-14.6 [facility] Immature granulocytes/100 WBC (Bld) 0.200 % 0.0-0.9 [facility] Comment on above: IG% - Immature Granu locytes (promyelocytes, myelocytes and metamyelocytes) > 1% indicates that a LEFT SHIFT is Present. MCH (RBC) [Entitic mass] 25.7 pg 27.0-32.0 [facility] Nucleated RBC/100 WBC (Bld) [Ratio] 0 % 0-5 [facility] Auto (RBC) [Mass/Vol]Or dered By: BÁRBARA MASON on 10-06-2022 MCHC (RBC) [Mass/Vol] 31.0 g/dL 32-36 [facility] Neisseria gonorrhoeae detect ion by PCROrdered By: BÁRBARA MASON on 10-06-2022 N. gonorrhoeae DNA JJ+probe Ql (Cervical mucus) Negative Negative [facility] No Panel Informationon 10-06 External Rubella IGG Quantitation Positive [facility] Danyel RN [facility] No Panel InformationOrdered By: BÁRBARA MASON on 10-06-2022 Estimated GFR (MDRD) Amer 130 mL/min >60 [facility] Comment on above: GFR Calc Estimated GFR (MDRD) Non-Af Amer 107 mL/min >60 [facility] Comment on above: Non- GFR Calc Hepatitis B Surface Antigen Non-Reactive Nonreactive [facility] Hepatitis C Antibody Non-Reactive Nonreactive [facility] Comment on above: Non Reactive: < 0.8 Equivocal: >/= 0.8 to < 1.0 Reactive: >/= 1.0The CDC recommends that a reactive/equivocal HCV antibody result be followed up by the HCV Nucleic Acid Amplificationtest ([id number]) Rubella IgG Antibody Reactive Nonreactive [facility] Comment on above: Antibody Results Int erpretation of Immune Status Non Reactive Presumed Non-Immune Equivocal Equivocal Reactive Presumed Immune Vitamin D 25-Hydroxy 19.2 ng/mL [facility] Comment on above: Vitamin D 25(OH) Sta tus Range Deficiency <20 ng/mL (50nmol/L) Insufficiency 20 - 30 ng/mL (50 - 75 nmol/L) Sufficiency 30 - 100 ng/mL (75 - 250 nmol/L) Toxicity >100 ng/mL (>250 nmol/L) Platelets bldOrdered By: RULA MASON on 10-06-2022 Platelets (Bld) [#/Vol] 232 10*3/uL 150-450 [facility] Reagin Ab RPR Ql (S)on 10-06 External RPR Non-Reactive Borderline, Nonreactive, Weakly Reactive, Equivocal [facility] Serum Treponema species anti body detectionOrdered By: BÁRBARA MASON on 10-06-2022 Treponema sp Ab Ql (S) Non-Reactive [facility] Serum or plasma albumin prieto urement (mass/volume)Ordered By: BÁRBARA MASON on 10-06-2022 Albumin [Mass/Vol] 3.2 g/dL 3.2-5.0 [facility] Serum or plasma albumin/glob ulin mass ratioOrdered By: BÁRBARA MASON on 10-06-2022 Albumin/Globulin [Mass ratio] 0.7 {ratio} 0.9-2.4 [facility] Serum or plasma calcium prieto urement (mass/volume)Ordered By: BÁRBARA MASON on 10-06-2022 Calcium [Mass/Vol] 9.1 mg/dL 8.5-10.1 [facility] Serum or plasma creatinine m easurement (mass/volume)Ordered By: BÁRBARA MASON on 10-06-2022 Creatinine [Mass/Vol] 0.68 mg/dL 0.55-1.02 [facility] Comment on above: The validity of the calculated GFR & GFRAA in patients over 70 years has not been determined. Clinical correlation is essential. Serum or plasma urea nitroge n measurement (mass/volume)Ordered By: BÁRBARA MASON on 10-06-2022 Urea nitrogen [Mass/Vol] 8 mg/dL 7-18 [facility] Serum or plasma uric acid me asurement (mass/volume)Ordered By: BÁRBARA MASON on 10-06-2022 Urate [Mass/Vol] 5.0 mg/dL 2.6-6.0 [facility] Comment on above: The drugs N-Acetylcy steine and Metamizole may falsely depress this assay. Thin prep Papanicolaou smear with manual screeningOrdered By: BÁRBARA MASON on 10-06-2022 Thin prep Papanicolaou smear with manual screening 23 U/L 15-37 [facility] Thin prep Papanicolaou smear with manual screening 8 5-15 [facility] Urine creatinine measurement (mass/volume)Ordered By: BÁRBARA MASON on 10-06-2022 Creatinine (U) [Mass/Vol] 69.70 mg/dL NO RANGE EST. [facility] Urine protein measurement (m ass/volume)Ordered By: BÁRBARA MASON on 10-06-2022 Protein (U) [Mass/Vol] 10.8 mg/dL 0.0-11.8 [facility] Urine protein/creatinine mas s ratioOrdered By: BÁRBARA MASON on 10-06-2022 Protein/Creatinine (U) [Mass ratio] 155 mg/g CRE 0-200 [facility] Whole blood hemoglobin A1c/t otal hemoglobin ratio (mass fraction)Ordered By: BÁRBARA MASON on 10-06-2022 HbA1c (Bld) [Mass fraction] 5.8 % 3.8-5.6 [facility] Comment on above: Normal < 5.7 % Predi abetic 5.7 - 6.4 % Diabetic >or= 6.5 % Please note range changes. Progress Noteon 10-05-2022 Automotive Maintenance Technician Authentication Interface Message Text Maternal Medicine New Patient Date of Service: 10/05/2022 Referring Provider: Self Referred Primary Care Provider: Mega Weeks MD Reason for Consult: Self Referred to be evaluated due to . Ambika is a 32 y.o. at 7w1d gestation who presents for evaluation of high risk . She is accompanied by her . OB History Para Term AB Living 6 0 0 0 5 0 SAB IAB Ectopic Multiple Live Births 4 0 1 0 0 # Outcome Date GA Lbr Marco/2nd Weight Sex Delivery Anes PTL Lv 6 Current 5 Ectopic 03/2021 6w0d Comments: right tube, took methotrexate 4 06/2019 6w0d Comments: D&C 3 12/2018 7w0d 2 07/2017 5w0d 1 10/2016 5w0d Past Medical History: Diagnosis Date Cardiac abnormality Depression Diabetes mellitus, type 2 Hypertension Infertility, female Migraine headache Thyroid disease Uncomplicated asthma History reviewed. Surgeries: Tonsils, [place] teeth, cholecystectomy, D&C x1, Implantable loop recorder, Attempted cardioablation without success Allergies Allergen Reactions Benadryl [Diphenhydramine] Palpitations Compazine [Prochlorperazine] Anxiety Social History Socioeconomic History Marital status: Spouse name: None Number of children: None Years of education: None Highest education level: None Tobacco Use Smoking status: Never Smokeless tobacco: Never Substance and Sexual Activity Alcohol use: Not Currently Drug use: Never Infections Live with someone with or exposed to TB No History of STI's None Rash or viral illness since last menstruation No 2nd STI GBS 3rd STI Hx of Chicken Pox Other infections Partner has hx of genital herpes No Genetics Age is > than 35y as of estimated date No Thalassemia No Neural Tube Defect No Congenital Heart Defect No Down Syndrome No Luis Alberto-Sachs No Lacho Disease No Sickle Cell Disease or Trait No Hemophilia, Thrombophilia No Muscular Dystrophy No Cystic Fibrosis No Chrisman's Chorea No Intellectual Disability/Autism No Metabolic Disorder No Recurrent Loss, or a Stillbirth Yes Inherited Genetic or Chromosomal Disorder No Illicit; Rec.drugs; Alcohol since last menses No Family History Problem Relation Age of Onset High Blood Pressure Father Diabetes Mellitus II Maternal Grandmother Cancer Maternal Grandmother Diabetes Mellitus II Maternal Grandfather Stroke Paternal Grandmother Cancer Paternal Grandmother Heart Disease Paternal Grandfather Outpatient Encounter Medications as of 10/05/2022 Medication Sig Dispense Refill MV & Min w/FA-DHA ( GUMMIES PO) Take by mouth daily [DISCONTINUED] aspirin 81 MG chewable tablet Take by mouth 2 times daily [DISCONTINUED] Enoxaparin Sodium (LOVENOX) SQ Inject into the skin daily Blood Pressure Monitoring (BLOOD PRESSURE MONITOR AUTOMAT) JAY Use as directed during . Report BP 140/90 or greater 1 Each 0 Enoxaparin Sodium (LOVENOX) SQ Inject 0.4 mL (40 mg) into the skin daily 30 Each 8 aspirin 81 MG chewable tablet Take 1 Tablet (81 mg) by mouth 2 times daily 30 Tablet 8 No facility-administered encounter medications on file as of 10/05/2022. Review of Systems Constitutional: BMI 51. Pt reports was told had Type 2DM, insulin resistance. Was on Metformin but was stopped recently. A1C 6.2 in Aug 2022 Respiratory: Has sleep apnea and struggles with wearing. Is getting full mask Cardiovascular: Positive for palpitations (intermittent palpitations with known PVC, intermittent SVT. Receives ongoing care with Dr Conrad at [facility]. Has implantable loop recorder. Syncopal episodes. Cardiology has POTS on list of differential dx. Workup ongoing). Ongoing care with [facility] cardiology due to palpitations, PVC, SVT, syncopal episodes. Implantable loop recorder. Chronic hypertension that was treated with metoprolol in past. Currently on no hypertensive medication Endocrine: Dx with subclinical hypothyroid. Was recently tested and PCP was to send in script for synthroid. States will contact their office for script Genitourinary: Amenorrhea. LMP 08/10/22. Was seen by Dr Aguayo 09/22/22 and ultrasound showed IUP. Follow up 09/29 6 week IUP EDC 05/25/23 Psychiatric/Behavioral: The patient is nervous/anxious (heightened anxiety due to recurrent losses). Physical Exam Vitals reviewed. Constitutional: Appearance: She is well-developed and well-nourished. HENT: Head: Normocephalic and atraumatic. Pulmonary: Effort: Pulmonary effort is normal. Neurological: Mental Status: She is alert and oriented to person, place, and time. Psychiatric: Mood and Affect: Mood and affect normal. Behavior: Behavior normal. Thought Content: Thought content normal. Judgment: Judgment normal. Comments: Teary at times due to nature of visit and prior losses Laboratory Test Results: No results found (more content not included)... Normal [facility] Absolute lymphocyte countOrd ered By: Doni Nieves on 09-23-2022 Lymphocytes Auto (Unsp spec) [#/Vol] 2.99 10*3/uL 0.83-4.51 [facility] Basophil percentageOrdered B y: Doni Nieves on 09-23-2022 Basophils/100 WBC (Bld) 0.5 % 0-1 [facility] Chloride [Moles/Vol] 109 mmol/L 98-107 [facility] Eosinophils/100 WBC (Bld) 1.4 % 0-5 [facility] Glucose [Mass/Vol] 139 mg/dL 74-106 [facility] Comment on above: Fasting Glucose resu lt greater than or equal to 126 mg/dL suggests DIABETES MELLITUS per A.D.A. criteria. Neutrophils (Bld) [#/Vol] 7.1 10*3/uL 2.0-7.7 [facility] Neutrophils/100 WBC (Bld) 64.0 % 47-70 [facility] Potassium [Moles/Vol] 3.4 mmol/L 3.5-5.1 [facility] Sodium [Moles/Vol] 140 mmol/L 136-145 [facility] WBC (Bld) [#/Vol] 11.1 10*3/uL 4.4-11.0 [facility] Blood erythrocytes count (nu mber/volume)Ordered By: Doni Nieves on 09-23-2022 RBC (Bld) [#/Vol] 4.68 10*6/uL 4.2-5.4 [facility] Blood hemoglobin measurement (mass/volume)Ordered By: Doni Nieves on 09-23-2022 Hemoglobin (Bld) [Mass/Vol] 12.1 g/dL 12.0-15.0 [facility] Blood lymphocytes/100 leukoc ytesOrdered By: Doni Nieves on 09-23-2022 Lymphocytes/100 WBC (Bld) 26.9 % 19-41 [facility] Blood monocytes/100 leukocyt esOrdered By: Doni Nieves on 09-23-2022 Monocytes/100 WBC (Bld) 6.9 % 0-10 [facility] Blood platelet mean volumeOr dered By: Doni Nieves on 09-23-2022 Platelet mean volume (Bld) [Entitic vol] 12.1 fL 6.2-12.0 [facility] Determination of erythrocyte mean corpuscular volume (MCV)Ordered By: Doni Nieves on 09-23-2022 MCV (RBC) [Entitic vol] 82.3 fL 81-99 [facility] Hematocrit Auto (Bld) [Volum e fraction]Ordered By: Doni Nieves on 09-23-2022 Hematocrit (Bld) [Volume fraction] 38.5 % 37-47 [facility] Laboratory - Chemistry and C hemistry - challengeOrdered By: Doni Nieves on 09-23-2022 CO2 [Moles/Vol] 23.0 mmol/L 21.0-32.0 [facility] Magnesium [Mass/Vol] 1.9 mg/dL 1.6-2.6 [facility] Urea nitrogen/Creatinine [Mass ratio] 11.7 mg/mg 10-20 [facility] Laboratory - Hematology and Cell countsOrdered By: Doni Nieves on 09-23-2022 Erythrocyte distribution width (RBC) [Entitic vol] 47.7 fL 35.1-43.9 [facility] Erythrocyte distribution width (RBC) [Ratio] 16.1 % 11.6-14.6 [facility] Immature granulocytes/100 WBC (Bld) 0.300 % 0.0-0.9 [facility] Comment on above: IG% - Immature Granu locytes (promyelocytes, myelocytes and metamyelocytes) > 1% indicates that a LEFT SHIFT is Present. MCH (RBC) [Entitic mass] 25.9 pg 27.0-32.0 [facility] Nucleated RBC/100 WBC (Bld) [Ratio] 0 % 0-5 [facility] MCHC Auto (RBC) [Mass/Vol]Or dered By: Doni Nieves on 09-23-2022 MCHC (RBC) [Mass/Vol] 31.4 g/dL 32-36 [facility] No Panel InformationOrdered By: Doni Nieves on 09-23-2022 Estimated Creatinine Clearance Calc 102.94 ml/min [facility] Estimated GFR (MDRD) Amer 112 mL/min >60 [facility] Comment on above: GFR Calc Estimated GFR (MDRD) Non-Af Amer 93 mL/min >60 [facility] Comment on above: Non- GFR Calc Platelets bldOrdered By: Erasmo Nieves on 09-23-2022 Platelets (Bld) [#/Vol] 231 10*3/uL 150-450 [facility] Serum or plasma calcium prieto urement (mass/volume)Ordered By: Doni Nieves on 09-23-2022 Calcium [Mass/Vol] 8.2 mg/dL 8.5-10.1 [facility] Serum or plasma creatinine m easurement (mass/volume)Ordered By: Doni Nieves on 09-23-2022 Creatinine [Mass/Vol] 0.77 mg/dL 0.55-1.02 [facility] Comment on above: The validity of the calculated GFR & GFRAA in patients over 70 years has not been determined. Clinical correlation is essential. Serum or plasma urea nitroge n measurement (mass/volume)Ordered By: Doni Nieves on 09-23-2022 Urea nitrogen [Mass/Vol] 9 mg/dL 7-18 [facility] Thin prep Papanicolaou smear with manual screeningOrdered By: Doni Nieves on 09-23-2022 Thin prep Papanicolaou smear with manual screening 8 5-15 [facility] Serum or plasma choriogonado tropin detectionOrdered By: Dr. Aguayo on 09-16-2022 HCG ( test) Ql 260 mIU/mL <4 [facility] Comment on above: hCG levels with Gest ational AgeGestational Age hCG mIU/mL (IU/L)0.2 - 1 week 5 - 501-2 weeks 50 - 5002-3 weeks 100 - 17443-2 weeks 500 - 704831-8 weeks 1000 - 396382-2 weeks 75463 - 100,0006-8 weeks 81894 - 200,0002-3 months 32036 - 100,000 Absolute lymphocyte countOrd ered By: Dr. Dumont on 09-14-2022 Lymphocytes Auto (Unsp spec) [#/Vol] 2.76 10*3/uL 0.83-4.51 [facility] Basophil percentageOrdered B y: Dr. Dumont on 09-14-2022 Basophils/100 WBC (Bld) 0.3 % 0-1 [facility] Chloride [Moles/Vol] 109 mmol/L 98-107 [facility] Eosinophils/100 WBC (Bld) 2.9 % 0-5 [facility] Glucose [Mass/Vol] 119 mg/dL 74-106 [facility] Comment on above: Fasting Glucose resu lt from 100 to 125 mg/dL suggests IMPAIRED HOMEOSTASIS per A.D.A. criteria. Neutrophils (Bld) [#/Vol] 5.9 10*3/uL 2.0-7.7 [facility] Neutrophils/100 WBC (Bld) 60.7 % 47-70 [facility] Potassium [Moles/Vol] 3.9 mmol/L 3.5-5.1 [facility] Sodium [Moles/Vol] 139 mmol/L 136-145 [facility] WBC (Bld) [#/Vol] 9.8 10*3/uL 4.4-11.0 [facility] Basophil percentage 0-5 SEEN /hpf 0-5 [facility] Bilirubin Test strip Ql (U)O rdered By: Dr. Dumont on 09-14-2022 Bilirubin Ql (U) Negative Negative [facility] Blood erythrocytes count (nu mber/volume)Ordered By: Dr. Dumont on 09-14-2022 RBC (Bld) [#/Vol] 4.93 10*6/uL 4.2-5.4 [facility] Blood hemoglobin measurement (mass/volume)Ordered By: Dr. Dumont on 09-14-2022 Hemoglobin (Bld) [Mass/Vol] 12.7 g/dL 12.0-15.0 [facility] Blood lymphocytes/100 leukoc ytesOrdered By: Dr. Dumont on 09-14-2022 Lymphocytes/100 WBC (Bld) 28.2 % 19-41 [facility] Blood monocytes/100 leukocyt esOrdered By: Dr. Dumont on 09-14-2022 Monocytes/100 WBC (Bld) 7.6 % 0-10 [facility] Blood platelet mean volumeOr dered By: Dr. Dumont on 09-14-2022 Platelet mean volume (Bld) [Entitic vol] 11.4 fL 6.2-12.0 [facility] Determination of erythrocyte mean corpuscular volume (MCV)Ordered By: Dr. Dumont on 09-14-2022 MCV (RBC) [Entitic vol] 79.5 fL 81-99 [facility] Hematocrit Auto (Bld) [Volum e fraction]Ordered By: Dr. Dumont on 09-14-2022 Hematocrit (Bld) [Volume fraction] 39.2 % 37-47 [facility] Ketones Test strip Ql (U)Ord ered By: Dr. Dumont on 09-14-2022 Ketones Ql (U) Negative Negative [facility] Laboratory - Chemistry and C hemistry - challengeOrdered By: Dr. Dumont on 09-14-2022 CO2 [Moles/Vol] 22.0 mmol/L 21.0-32.0 [facility] Urea nitrogen/Creatinine [Mass ratio] 18.2 mg/mg 10-20 [facility] Laboratory - Hematology and Cell countsOrdered By: Dr. Dumont on 09-14-2022 Erythrocyte distribution width (RBC) [Entitic vol] 44.0 fL 35.1-43.9 [facility] Erythrocyte distribution width (RBC) [Ratio] 15.5 % 11.6-14.6 [facility] Immature granulocytes/100 WBC (Bld) 0.300 % 0.0-0.9 [facility] Comment on above: IG% - Immature Granu locytes (promyelocytes, myelocytes and metamyelocytes) > 1% indicates that a LEFT SHIFT is Present. MCH (RBC) [Entitic mass] 25.8 pg 27.0-32.0 [facility] Nucleated RBC/100 WBC (Bld) [Ratio] 0 % 0-5 [facility] MCHC Auto (RBC) [Mass/Vol]Or dered By: Dr. Dumont on 09-14-2022 MCHC (RBC) [Mass/Vol] 32.4 g/dL 32-36 [facility] Mucus LM Ql (Urine sed)Order ed By: Dr. Dumont on 09-14-2022 Mucus Ql (Urine sed) 0 SEEN /hpf [facility] Nitrite Test strip Ql (U)Ord ered By: Dr. Dumont on 09-14-2022 Nitrite Ql (U) Negative Negative [facility] No Panel InformationOrdered By: Dr. Dumont on 09-14-2022 Estimated Creatinine Clearance Calc 120.10 ml/min [facility] Estimated GFR (MDRD) Amer 134 mL/min >60 [facility] Comment on above: GFR Calc Estimated GFR (MDRD) Non-Af Amer 111 mL/min >60 [facility] Comment on above: Non- GFR Calc Platelets bldOrdered By: Dr. Dumont on 09-14-2022 Platelets (Bld) [#/Vol] 272 10*3/uL 150-450 [facility] Protein Test strip Ql (U)Ord ered By: Dr. Dumont on 09-14-2022 Protein Ql (U) Negative Negative [facility] Serum or plasma calcium prieto urement (mass/volume)Ordered By: Dr. Dumont on 09-14-2022 Calcium [Mass/Vol] 8.7 mg/dL 8.5-10.1 [facility] Serum or plasma choriogonado tropin detectionOrdered By: Dr. Dumont on 09-14-2022 HCG ( test) Ql 120 mIU/mL <4 [facility] Comment on above: hCG levels with Gest ational AgeGestational Age hCG mIU/mL (IU/L)0.2 - 1 week 5 - 501-2 weeks 50 - 5002-3 weeks 100 - 36545-9 weeks 500 - 077154-6 weeks 1000 - 850858-3 weeks 31816 - 100,0006-8 weeks 89628 - 200,0002-3 months 66430 - 100,000 Serum or plasma creatinine m easurement (mass/volume)Ordered By: Dr. Dumont on 09-14-2022 Creatinine [Mass/Vol] 0.66 mg/dL 0.55-1.02 [facility] Comment on above: The validity of the calculated GFR & GFRAA in patients over 70 years has not been determined. Clinical correlation is essential. Serum or plasma urea nitroge n measurement (mass/volume)Ordered By: Dr. Dumont on 09-14-2022 Urea nitrogen [Mass/Vol] 12 mg/dL 7-18 [facility] Squamous epithelial cells de tection in urine sediment by light microscopyOrdered By: Dr. Dumont on 09-14-2022 Epithelial cells.squamous LM Ql (Urine sed) 0-5 SEEN /hpf 5-10 [facility] Thin prep Papanicolaou smear with manual screeningOrdered By: Dr. Dumont on 09-14-2022 Thin prep Papanicolaou smear with manual screening 8 5-15 [facility] Urine blood detectionOrdered By: Dr. Dumont on 09-14-2022 RBC Ql (U) Negative Negative [facility] RBC Ql (U) 0 SEEN /hpf 0-5 [facility] Urine clarityOrdered By: Dr. Dumont on 09-14-2022 Clarity (U) Clear Clear [facility] Urine color determinationOrd ered By: Dr. Dumont on 09-14-2022 Color (U) Yellow Yellow [facility] Urine glucose detectionOrder ed By: Dr. Dumont on 09-14-2022 Glucose Ql (U) Normal mg/dl Normal [facility] Urine leukocyte esterase det ection by dipstickOrdered By: Dr. Dumont on 09-14-2022 Leukocyte esterase Test strip Ql (U) 25 /ul Negative [facility] Urine pHOrdered By: Dr. aLm mcfadden on 09-14-2022 pH (U) 6.5 [pH] 5.0 - 8.0 [facility] Urine sediment bacteria coun t by microscopy (number/high power field)Ordered By: Dr. Dumont on 09-14-2022 Bacteria LM.HPF (Urine sed) [#/Area] 1 /[HPF] None Seen [facility] Urine specific gravity measu rementOrdered By: Dr. Dumont on 09-14-2022 Specific gravity (U) [Rel density] 1.015 1.002-1.030 [facility] Urobilinogen Auto test strip Ql (U)Ordered By: Dr. Dumont on 09-14-2022 Urobilinogen Ql (U) Normal mg/dl Normal [facility] Basophil percentageOrdered B y: Alison Díaz on 08-25-2022 Chloride [Moles/Vol] 106 mmol/L 98-107 [facility] Glucose [Mass/Vol] 117 mg/dL 74-106 [facility] Comment on above: Fasting Glucose resu lt from 100 to 125 mg/dL suggests IMPAIRED HOMEOSTASIS per A.D.A. criteria. Potassium [Moles/Vol] 3.3 mmol/L 3.5-5.1 [facility] Sodium [Moles/Vol] 138 mmol/L 136-145 [facility] WBC (Bld) [#/Vol] 15.0 10*3/uL 4.4-11.0 [facility] Blood erythrocytes count (nu mber/volume)Ordered By: Alison Díaz on 08-25-2022 RBC (Bld) [#/Vol] 5.11 10*6/uL 4.2-5.4 [facility] Blood hemoglobin measurement (mass/volume)Ordered By: Alison Díaz on 08-25-2022 Hemoglobin (Bld) [Mass/Vol] 13.2 g/dL 12.0-15.0 [facility] Blood platelet mean volumeOr dered By: Alison Díaz on 08-25-2022 Platelet mean volume (Bld) [Entitic vol] 12.1 fL 6.2-12.0 [facility] Determination of erythrocyte mean corpuscular volume (MCV)Ordered By: Alison Díaz on 08-25-2022 MCV (RBC) [Entitic vol] 81.0 fL 81-99 [facility] Hematocrit Auto (Bld) [Volum e fraction]Ordered By: Alison Díaz on 08-25-2022 Hematocrit (Bld) [Volume fraction] 41.4 % 37-47 [facility] INR in Blood by Coagulation assayOrdered By: Alison Díaz on 08-25-2022 INR Coag (Bld) [Relative time] 1.1 {INR} [facility] Laboratory - Chemistry and C hemistry - challengeOrdered By: Alison Díaz on 08-25-2022 CO2 [Moles/Vol] 26.0 mmol/L 21.0-32.0 [facility] Urea nitrogen/Creatinine [Mass ratio] 17.3 mg/mg 10-20 [facility] Laboratory - CoagulationOrde red By: Alison Díaz on 08-25-2022 PT Coag (PPP) [Time] 14.1 s 11.7-14.9 [facility] Laboratory - Hematology and Cell countsOrdered By: Alison Díaz on 08-25-2022 Erythrocyte distribution width (RBC) [Entitic vol] 42.6 fL 35.1-43.9 [facility] Erythrocyte distribution width (RBC) [Ratio] 14.6 % 11.6-14.6 [facility] MCH (RBC) [Entitic mass] 25.8 pg 27.0-32.0 [facility] MCHC Auto (RBC) [Mass/Vol]Or dered By: Alison Díaz on 08-25-2022 MCHC (RBC) [Mass/Vol] 31.9 g/dL 32-36 [facility] No Panel InformationOrdered By: Alison Díaz on 08-25-2022 Estimated GFR (MDRD) Amer 106 mL/min >60 [facility] Comment on above: GFR Calc Estimated GFR (MDRD) Non-Af Amer 88 mL/min >60 [facility] Comment on above: Non- GFR Calc Platelets bldOrdered By: Srikanth Díaz on 08-25-2022 Platelets (Bld) [#/Vol] 271 10*3/uL 150-450 [facility] Serum or plasma calcium prieto urement (mass/volume)Ordered By: Alison Díaz on 08-25-2022 Calcium [Mass/Vol] 8.5 mg/dL 8.5-10.1 [facility] Serum or plasma creatinine m easurement (mass/volume)Ordered By: Alison Díaz on 08-25-2022 Creatinine [Mass/Vol] 0.81 mg/dL 0.55-1.02 [facility] Comment on above: The validity of the calculated GFR & GFRAA in patients over 70 years has not been determined. Clinical correlation is essential. Serum or plasma urea nitroge n measurement (mass/volume)Ordered By: Alison Díaz on 08-25-2022 Urea nitrogen [Mass/Vol] 14 mg/dL 7-18 [facility] Thin prep Papanicolaou smear with manual screeningOrdered By: Alison Díaz on 08-25-2022 Thin prep Papanicolaou smear with manual screening 6 5-15 [facility] Laboratory studies (set)on 10-03-2021 Basophils/100 WBC (Bld) 1 % 0-2 [facility] Work Phone: Microcytosis [facility] Work Phone: TFTESTon 05-09-2022 Free Testosterone 0.78 ng/dL Normal <0.13-1.03 [facility] ([place]) Comment on above: Result Comment: ---- ADDITIONAL INFORMATION This test was developed and its performance characteristics determined by [facility] in a manner consistent with CLIA requirements. This test has not been cleared or approved by the U.S. Food and Drug Administration. Performed By: #### D HEAS, LH, RUBIS, E2, FSH, PROL #### [address] [address] #### TFTEST, CMP, TSH, GFR #### [address] [address] Testoster Tot 26 ng/dL Normal 8-60 [facility] ([place]) Comment on above: Result Comment: ---- ADDITIONAL INFORMATION Testing performed by Liquid Chromatography-Tandem Mass Spectrometry (LC-MS/MS). This test was developed and its performance characteristics determined by [facility] in a manner consistent with CLIA requirements. This test has not been cleared or approved by the U.S. Food and Drug Administration. Test Performed by: [facility] [address] [place] [address] Identification And Records Commander: Ronald Kearns M.D. Ph.D.; CLIA# [id number] Performed By: #### D HEAS, LH, RUBIS, E2, FSH, PROL #### [address] [address] #### TFTEST, CMP, TSH, GFR #### [address] [address] [address] HEAD OR BRAIN W/O CONTRAS Ton 05-08-2022 CT HEAD OR BRAIN W/O CONTRAST ORIGINAL EXAMINATION: CT HEAD TECHNIQUE: Axial CT images from skull base to vertex without IV contrast. This exam was performed according to our departmental dose optimization program, and includes the following measures where applicable: automated exposure control, adjustment of the mAs and/or kVp according to patient size and/or exam, and an iterative reconstruction algorithm. COMPARISON: CT head 05/18/2017 HISTORY: ORDERING SYSTEM PROVIDED HISTORY: Reason for Exam: HEADACHE AND DIZZINESS FINDINGS: Parenchyma: No acute intracranial hemorrhage, midline shift, mass effect or acute ischemic infarct is demonstrated. The britt-white matter junctions are preserved. No space occupying intra-axial masses or extra-axial fluid collections are seen. Ventricles: No evidence of hydrocephalus or ventricular effacement. Vessels: No atherosclerotic calcifications. Orbits: Unremarkable. Calvarium: Unremarkable. Paranasal sinuses: Clear. Mastoid sinuses: Clear. IMPRESSION: Unremarkable examination. Interpreted by: Nitin Bailey MD Preliminary Report By: Nitin Bailey MD Electronically signed By Nitin Bailey MD Dictated Date: 05/08/2022 2:35:51 PM Prelim Date: 05/08/2022 2:37:50 PM Sign Date: 05/08/2022 2:37:50 PM Ordering Provider: CURT JOHN Normal [facility] ([place]) DHEASon 05-02-2022 DHEA-SO4 250.52 mcg/dL Normal 25.90-460.20 [facility] ([place] Comment on above: Result Comment: No te - New Reference Range in effect 20 Performed By: #### D HEAS, LH, RUBIS, E2, FSH, PROL #### [place] [address] #### TFTEST, CMP, TSH, GFR #### [address] [address] E2on 05-02-2022 Estradiol Level 50.37 pg/mL Normal [facility] ([place]) Comment on above: Result Comment: No te - New Reference Range in effect 20 Adult Female E2 Reference Ranges: Follicular phase 19.5 - 144.2 pg/mL Midcycle 63.9 - 356.7 pg/mL Luteal phase 55.8 - 214.2 pg/mL Post menopausal 0 - 33.2 pg/mL Performed By: #### D HEAS, LH, RUBIS, E2, FSH, PROL #### [place] [address] #### TFTEST, CMP, TSH, GFR #### [address] [address] FSHon 05-02-2022 FSH 5.4 mIU/mL Normal [facility] ([place]) Comment on above: Result Comment: Adul t Female FSH Reference Ranges (08/03/99): Follicular phase 2.5 - 10.2 mIU/mL Midcycle phase 3.4 - 33.4 mIU/mL Luteal phase 1.5 - 9.1 mIU/mL Post menopausal 23.0 -116.3 mIU/mL Adult Male: 1.4 - 18.1 mIU/mL Performed By: #### D HEAS, LH, RUBIS, E2, FSH, PROL #### [place] [address] #### TFTEST, CMP, TSH, GFR #### [address] [address] LHon 05-02-2022 LH 3.9 mIU/mL Normal [facility] ([place]) Comment on above: Result Comment: No te - New Reference Range in effect 20 Adult Female LH Reference Ranges: Follicular phase 1.9 - 12.5 mIU/mL Midcycle phase 8.7 - 76.3 mIU/mL Luteal phase 0.5 - 16.9 mIU/mL Post menopausal 5.0 - 55.2 mIU/mL Performed By: #### D HEAS, LH, RUBIS, E2, FSH, PROL #### [place] [address] #### TFTEST, CMP, TSH, GFR #### [place] [address] PROLon 05-02-2022 Prolactin 6.8 ng/mL Normal 2.0-30.0 [facility] ([place]) Comment on above: Performed By: #### D HEAS, LH, RUBIS, E2, FSH, PROL #### [place] [address] #### TFTEST, CMP, TSH, GFR #### [place] [address] RUBISon 05-02-[address] Positive Normal Positive [facility] ([place]) Comment on above: Result Comment: This immune status assay detects IgM and/or IgG antibody to Rubella. Interpret results in conjunction with clinical history. POS: Antibody detected; exposure at undetermined recent or distant time. If clinically indicated, order Rubella IGM to rule out recent infection. NEG: No antibody detected. Performed By: #### D HEAS, LH, RUBIS, E2, FSH, PROL #### [place] [address] #### TFTEST, CMP, TSH, GFR #### [place] [id number] .Auto Diffon 05-01-2022 Basophil, Absolute 0.0 10 3/mcL Normal 0.0-0.2 [facility] ([place]) Comment on above: Performed By: #### D HEAS, LH, RUBIS, E2, FSH, PROL #### [place] [address] #### TFTEST, CMP, TSH, GFR #### [address] [address] Basophils/100 WBC (Bld) 0.3 % Normal 0.0-2.5 [facility] ([place]) Comment on above: Performed By: #### Christy HEAS, LH, RUBIS, E2, FSH, PROL #### [place] [address] #### TFTEST, CMP, TSH, GFR #### [address] [address] Eosinophil, Absolute 0.2 10 3/mcL Normal 0.0-0.4 [facility] ([place]) Comment on above: Performed By: #### Christy HEAS, LH, RUBIS, E2, FSH, PROL #### [place] [address] #### TFTEST, CMP, TSH, GFR #### [address] [address] Eosinophils/100 WBC (Bld) 1.8 % Normal 0.0-7.0 [facility] ([place]) Comment on above: Performed By: #### Christy HEAS, LH, RUBIS, E2, FSH, PROL #### [place] [address] #### TFTEST, CMP, TSH, GFR #### [address] [address] Lymphocyte, Absolute 2.5 10 3/mcL Normal 0.8-3.9 [facility] ([place]) Comment on above: Performed By: #### D HEAS, LH, RUBIS, E2, FSH, PROL #### [place] [address] #### TFTEST, CMP, TSH, GFR #### [address] [address] Lymphocytes/100 WBC (Bld) 29.1 % Normal 10.0-50.0 [facility] ([place]) Comment on above: Performed By: #### D HEAS, LH, RUBIS, E2, FSH, PROL #### [address] [address] #### TFTEST, CMP, TSH, GFR #### [address] [address] Monocyte, Absolute 0.5 10 3/mcL Normal 0.2-1.0 [facility] ([place]) Comment on above: Performed By: #### D HEAS, LH, RUBIS, E2, FSH, PROL #### [place] [address] #### TFTEST, CMP, TSH, GFR #### [address] [address] Monocytes/100 WBC (Bld) 5.8 % Normal 1.7-13.0 [facility] ([place]) Comment on above: Performed By: #### Christy HEAS, LH, RUBIS, E2, FSH, PROL #### [place] [address] #### TFTEST, CMP, TSH, GFR #### [address] [address] Neutrophils/100 WBC (Bld) 63.0 % Normal 37.0-80.0 [facility] ([place]) Comment on above: Performed By: #### Christy HEAS, LH, RUBIS, E2, FSH, PROL #### [place] [address] #### TFTEST, CMP, TSH, GFR #### [address] [address] .GFRon 05-01-2022 GFR Non- 94 ml/min/1.73sqm Normal [facility] ([place]) Comment on above: Result Comment: GFR Population mean for , Non- Americans Ages 20-29 = 116 mL/min/1.73 sq.m. Ages 30-39 = 107 mL/min/1.73 sq.m. Ages 40-49 = 99 mL/min/1.73 sq.m. Ages 50-59 = 93 mL/min/1.73 sq.m. Ages 60-69 = 85 mL/min/1.73 sq.m. Ages 70+ = 75 mL/min/1.73 sq.m. Chronic Kidney Disease: Less than 60 mL/min/1.73 square meters End Stage Renal Disease: Less than 15 mL/min/1.73 square meters Performed By: #### D CHEYENNEAS, LH, RUBIS, E2, FSH, PROL #### [address] [address] #### TFTEST, CMP, TSH, GFR #### [address] [address] GFR 115 ml/min/1.73sqm Normal [facility] ([place]) Comment on above: Result Comment: GFR Population mean for , Non- Americans Ages 20-29 = 116 mL/min/1.73 sq.m. Ages 30-39 = 107 mL/min/1.73 sq.m. Ages 40-49 = 99 mL/min/1.73 sq.m. Ages 50-59 = 93 mL/min/1.73 sq.m. Ages 60-69 = 85 mL/min/1.73 sq.m. Ages 70+ = 75 mL/min/1.73 sq.m. Chronic Kidney Disease: Less than 60 mL/min/1.73 square meters End Stage Renal Disease: Less than 15 mL/min/1.73 square meters Performed By: #### Christy VASQUEZ, LH, RUBIS, E2, FSH, PROL #### [address] [address] #### TFTEST, CMP, TSH, GFR #### [address] [address] .NEUABSon 05-01-2022 Neutrophil, Absolute 5.4 10 3/mcL Normal 2.9-6.2 [facility] ([place]) Comment on above: Performed By: #### Christy QUINNAS, LH, RUBIS, E2, FSH, PROL #### [address] [address] #### TFTEST, CMP, TSH, GFR #### [address] [address] CBCon 05-01-2022 Erythrocyte distribution width (RBC) [Ratio] 16.3 % High 11.5-14.5 [facility] ([place]) Comment on above: Performed By: #### D HEAS, LH, RUBIS, E2, FSH, PROL #### [place] [address] #### TFTEST, CMP, TSH, GFR #### [place] [phone] Hematocrit (Bld) [Volume fraction] 40.6 % Normal 37.0-47.0 [facility] ([place]) Comment on above: Performed By: #### Christy HEAS, LH, RUBIS, E2, FSH, PROL #### [place] [address] #### TFTEST, CMP, TSH, GFR #### [place] [address] Hgb 13.2 G/dL Normal 12.0-16.0 [facility] ([place]) Comment on above: Performed By: #### Christy HEAS, LH, RUBIS, E2, FSH, PROL #### [place] [address] #### TFTEST, CMP, TSH, GFR #### [place] [id number] MCH (RBC) [Entitic mass] 25.3 pg Low 27.0-31.2 [facility] ([place]) Comment on above: Performed By: #### D HEAS, LH, RUBIS, E2, FSH, PROL #### [place] [address] #### TFTEST, CMP, TSH, GFR #### [place] [address] MCHC 32.6 G/dL Low 33.0-37.0 [facility] ([place]) Comment on above: Performed By: #### D HEAS, LH, RUBIS, E2, FSH, PROL #### [place] [address] #### TFTEST, CMP, TSH, GFR #### [address] [address] MCV (RBC) [Entitic vol] 77.9 fL Low 80.0-94.0 [facility] ([place]) Comment on above: Performed By: #### Christy VASQUEZ LH, RUBIS, E2, FSH, PROL #### [place] [address] #### TFTEST, CMP, TSH, GFR #### [address] [address] Platelet 229 10 3/mcL Normal 130-400 [facility] ([place]) Comment on above: Performed By: #### Christy VASQUEZ LH, RUBIS, E2, FSH, PROL #### [place] [address] #### TFTEST, CMP, TSH, GFR #### [address] [address] Platelet mean volume (Bld) [Entitic vol] 9.7 fL Normal 7.4-10.4 [facility] ([place]) Comment on above: Performed By: #### Christy VASQUEZ LH, RUBIS, E2, FSH, PROL #### [place] [address] #### TFTEST, CMP, TSH, GFR #### [address] [address] RBC 5.21 10 6/mcL Normal 4.20-5.40 [facility] ([place]) Comment on above: Performed By: #### Christy QUINNAS, LH, RUBIS, E2, FSH, PROL #### [place] [address] #### TFTEST, CMP, TSH, GFR #### [address] [address] WBC 8.6 10 3/mcL Normal 4.6-10.8 [facility] ([place]) Comment on above: Performed By: #### D HEAS, LH, RUBIS, E2, FSH, PROL #### [place] [address] #### TFTEST, CMP, TSH, GFR #### [address] [address] CMPon 05-01-2022 Albumin Level 3.3 G/dL Low 3.5-5.0 [facility] ([place]) Comment on above: Performed By: #### Christy HEAS, LH, RUBIS, E2, FSH, PROL #### [place] [address] #### TFTEST, CMP, TSH, GFR #### [address] [address] Albumin/Globulin [Mass ratio] 0.9 {ratio} Low 1.1-2.5 [facility] ([place]) Comment on above: Performed By: #### Christy QUINNAS, LH, RUBIS, E2, FSH, PROL #### [place] [address] #### TFTEST, CMP, TSH, GFR #### [address] [address] ALP [Catalytic activity/Vol] 104 U/L Normal 40-135 [facility] ([place]) Comment on above: Performed By: #### Christy QUINNAS, LH, RUBIS, E2, FSH, PROL #### [place] [address] #### TFTEST, CMP, TSH, GFR #### [address] [address] ALT [Catalytic activity/Vol] 17 U/L Normal 14-59 [facility] ([place]) Comment on above: Performed By: #### Christy HEAS, LH, RUBIS, E2, FSH, PROL #### [place] [address] #### TFTEST, CMP, TSH, GFR #### [address] [address] AST [Catalytic activity/Vol] 20 U/L Normal 10-40 [facility] ([place]) Comment on above: Performed By: #### D HEAS, LH, RUBIS, E2, FSH, PROL #### [place] [address] #### TFTEST, CMP, TSH, GFR #### [address] [address] Bili Total 0.3 mg/dL Normal 0.2-1.0 [facility] ([place]) Comment on above: Result Comment: Use of this assay is not recommended for patients undergoing treatment with eltrombopag due to the potential for falsely elevated results. Performed By: #### D HEAS, LH, RUBIS, E2, FSH, PROL #### [place] [address] #### TFTEST, CMP, TSH, GFR #### [address] [address] BUN/Creatinine Ratio 15 ratio Normal 7-27 [facility] ([place]) Comment on above: Performed By: #### D HEAS, LH, RUBIS, E2, FSH, PROL #### [place] [address] #### TFTEST, CMP, TSH, GFR #### [address] [address] Calcium [Mass/Vol] 8.5 mg/dL Normal 8.4-10.2 [facility] ([place]) Comment on above: Performed By: #### D HEAS, LH, RUBIS, E2, FSH, PROL #### [place] [address] #### TFTEST, CMP, TSH, GFR #### [address] [address] Chloride [Moles/Vol] 106 mmol/L Normal 98-107 [facility] ([place]) Comment on above: Performed By: #### D HEAS, LH, RUBIS, E2, FSH, PROL #### [place] [address] #### TFTEST, CMP, TSH, GFR #### [address] [address] CO2 [Moles/Vol] 28 mmol/L Normal 22-29 [facility] ([place]) Comment on above: Performed By: #### D HEAS, LH, RUBIS, E2, FSH, PROL #### [place] [address] #### TFTEST, CMP, TSH, GFR #### [address] [address] Creatinine [Mass/Vol] 0.72 mg/dL Normal 0.55-1.02 [facility] ([place]) Comment on above: Performed By: #### D HEAS, LH, RUBIS, E2, FSH, PROL #### [place] [address] #### TFTEST, CMP, TSH, GFR #### [address] [address] Electrolyte Balance 10.0 mEq/L Normal 4.0-15.0 [facility] ([place]) Comment on above: Performed By: #### D HEAS, LH, RUBIS, E2, FSH, PROL #### [place] [address] #### TFTEST, CMP, TSH, GFR #### [address] [address] Globulin 3.8 G/dL Normal [facility] ([place]) Comment on above: Performed By: #### D HEAS, LH, RUBIS, E2, FSH, PROL #### [place] [address] #### TFTEST, CMP, TSH, GFR #### [address] [address] Glucose [Mass/Vol] 89 mg/dL Normal 70-105 [facility] ([place]) Comment on above: Performed By: #### D HEAS, LH, RUBIS, E2, FSH, PROL #### [place] [address] #### TFTEST, CMP, TSH, GFR #### [address] [address] Potassium [Moles/Vol] 3.9 mmol/L Normal 3.5-5.1 [facility] ([place]) Comment on above: Performed By: #### D HEAS, LH, RUBIS, E2, FSH, PROL #### [place] [address] #### TFTEST, CMP, TSH, GFR #### [address] [address] Sodium [Moles/Vol] 144 mmol/L Normal 136-145 [facility] ([place]) Comment on above: Performed By: #### D HEAS, LH, RUBIS, E2, FSH, PROL #### [place] [address] #### TFTEST, CMP, TSH, GFR #### [address] [address] Total Protein 7.1 G/dL Normal 6.4-8.2 [facility] ([place]) Comment on above: Performed By: #### D HEAS, LH, RUBIS, E2, FSH, PROL #### [place] [address] #### TFTEST, CMP, TSH, GFR #### [address] [address] Urea nitrogen [Mass/Vol] 11 mg/dL Normal 7-18 [facility] ([place]) Comment on above: Performed By: #### D HEAS, LH, RUBIS, E2, FSH, PROL #### [place] [address] #### TFTEST, CMP, TSH, GFR #### [address] [address] Gel ABOon 05-01-2022 ABO/Rh Interp Positive Invalid Interpretation Code [facility] ([place]) Comment on above: Performed By: #### D HEAS, LH, RUBIS, E2, FSH, PROL #### [place] [address] #### TFTEST, CMP, TSH, GFR #### [place] [id number] [place], [place] [address] Gel ABSon 05-01-2022 Antibody Screen Gel Negative Normal [facility] ([place]) Comment on above: Performed By: #### D HEAS, LH, RUBIS, E2, FSH, PROL #### [place] [address] #### TFTEST, CMP, TSH, GFR #### [place] [id number] [place], [place] [address] LABORATORYOrdered By: Rashid Hair on 05-01-2022 ABO/Rh Interp Positive Invalid Interpretation Code AO BB SS Antibody Screen Gel Negative ABSC (05/01/22 12:42 PM) Invalid Interpretation Code AO BB SS Albumin BCP dye [Mass/Vol] 3.3 G/dL Invalid Interpretation Code 3.5 - 5.0 G/dL AO ADM SS Albumin/Globulin [Mass ratio] 0.9 {ratio} Invalid Interpretation Code 1.1 - 2.5 ratio AO ADM SS ALP [Catalytic activity/Vol] 104 U/L Invalid Interpretation Code 40 - 135 U/L AO ADM SS ALT With P-5'-P [Catalytic activity/Vol] 17 U/L Invalid Interpretation Code 14 - 59 U/L AO ADM SS AST With P-5'-P [Catalytic activity/Vol] 20 U/L Invalid Interpretation Code 10 - 40 U/L AO ADM SS Bilirubin [Mass/Vol] 0.3 mg/dL Invalid Interpretation Code 0.2 - 1.0 mg/dL AO ADM SS Calcium [Mass/Vol] 8.5 mg/dL Invalid Interpretation Code 8.4 - 10.2 mg/dL AO ADM SS Chloride [Moles/Vol] 106 mmol/L Invalid Interpretation Code 98 - 107 mmol/L AO ADM SS CO2 [Moles/Vol] 28 mmol/L Invalid Interpretation Code 22 - 29 mmol/L AO ADM SS Creatinine [Mass/Vol] 0.72 mg/dL Invalid Interpretation Code 0.55 - 1.02 mg/dL AO ADM SS Electrolyte Balance 10.0 mEq/L Invalid Interpretation Code 4.0 - 15.0 mEq/L AO ADM SS Globulin 3.8 G/dL Invalid Interpretation Code AO ADM SS Glucose [Mass/Vol] 89 mg/dL Invalid Interpretation Code 70 - 105 mg/dL AO ADM SS Potassium [Moles/Vol] 3.9 mmol/L Invalid Interpretation Code 3.5 - 5.1 mmol/L AO ADM SS Protein [Mass/Vol] 7.1 G/dL Invalid Interpretation Code 6.4 - 8.2 G/dL AO ADM SS Sodium [Moles/Vol] 144 mmol/L Invalid Interpretation Code 136 - 145 mmol/L AO ADM SS TSH Qn 1.38 m[IU]/L Invalid Interpretation Code 0.36 - 3.74 mcIU/mL AO ADM SS Urea nitrogen [Mass/Vol] 11 mg/dL Invalid Interpretation Code 7 - 18 mg/dL AO ADM SS Urea nitrogen/Creatinine [Mass ratio] 15 ratio Invalid Interpretation Code 7 - 27 ratio AO ADM SS LABORATORYOrdered By: Juana Soto on 05-01-2022 Basophil, Absolute 0.0 103/mcL Invalid Interpretation Code 0.0 - 0.2 10^3/mcL AO Workflow SS Basophils/100 WBC (Bld) 0.3 % Invalid Interpretation Code 0.0 - 2.5 % AO Workflow SS Eosinophil, Absolute 0.2 103/mcL Invalid Interpretation Code 0.0 - 0.4 10^3/mcL AO Workflow SS Eosinophils/100 WBC (Bld) 1.8 % Invalid Interpretation Code 0.0 - 7.0 % AO Workflow SS Erythrocyte distribution width (RBC) [Ratio] 16.3 % Invalid Interpretation Code 11.5 - 14.5 % AO Workflow SS Hematocrit (Bld) [Volume fraction] 40.6 % Invalid Interpretation Code 37.0 - 47.0 % AO Workflow SS Hemoglobin (Bld) [Mass/Vol] 13.2 G/dL Invalid Interpretation Code 12.0 - 16.0 G/dL AO Workflow SS Lymphocyte, Absolute 2.5 103/mcL Invalid Interpretation Code 0.8 - 3.9 10^3/mcL AO Workflow SS Lymphocytes/100 WBC (Bld) 29.1 % Invalid Interpretation Code 10.0 - 50.0 % AO Workflow SS MCH (RBC) [Entitic mass] 25.3 pg Invalid Interpretation Code 27.0 - 31.2 pg AO Workflow SS MCHC 32.6 G/dL Invalid Interpretation Code 33.0 - 37.0 G/dL AO Workflow SS MCV (RBC) [Entitic vol] 77.9 fL Invalid Interpretation Code 80.0 - 94.0 fL AO Workflow SS Monocyte, Absolute 0.5 103/mcL Invalid Interpretation Code 0.2 - 1.0 10^3/mcL AO Workflow SS Monocytes/100 WBC (Bld) 5.8 % Invalid Interpretation Code 1.7 - 13.0 % AO Workflow SS Neutrophil, Absolute 5.4 103/mcL Invalid Interpretation Code 2.9 - 6.2 10^3/mcL AO Workflow SS Neutrophils/100 WBC (Bld) 63.0 % Invalid Interpretation Code 37.0 - 80.0 % AO Workflow SS Platelet mean volume (Bld) [Entitic vol] 9.7 fL Invalid Interpretation Code 7.4 - 10.4 fL AO Workflow SS Platelets (Bld) [#/Vol] 229 103/mcL Invalid Interpretation Code 130 - 400 10^3/mcL AO Workflow SS RBC (Bld) [#/Vol] 5.21 106/mcL Invalid Interpretation Code 4.20 - 5.40 10^6/mcL AO Workflow SS WBC 8.6 103/mcL Invalid Interpretation Code 4.6 - 10.8 10^3/mcL AO Workflow SS LABORATORYOrdered By: SYSTEM SYSTEM on 05-01-2022 DHEA-S [Mass/Vol] 250.52 ug/dL Invalid Interpretation Code 25.90 - 460.20 mcg/dL ADM SS E2 [Mass/Vol] 50.37 pg/mL Invalid Interpretation Code ADM SS Follitropin Qn 5.4 m[IU]/mL Invalid Interpretation Code AH ADM SS GFR 115 ml/min/1.73sqm Invalid Interpretation Code AO Chemistry S GFR Non- 94 ml/min/1.73sqm Invalid Interpretation Code AO Chemistry S Lutropin Qn 3.9 m[IU]/mL Invalid Interpretation Code ADM SS Prolactin [Mass/Vol] 6.8 ng/mL Invalid Interpretation Code 2.0 - 30.0 ng/mL ADM SS TSHon 05-01-2022 TSH Qn 1.38 m[IU]/L Normal 0.36-3.74 [facility] ([place]) Comment on above: Performed By: #### D HEAS, LH, RUBIS, E2, FSH, PROL #### [place] [address] #### TFTEST, CMP, TSH, GFR #### [address], [place] [address] Absolute lymphocyte counton 03-22-2022 Lymphocytes Auto (Unsp spec) [#/Vol] 3.32 10*3/uL 0.83-4.51 [facility] Work Phone: Basophil percentageon 2021 Bilirubin [Mass/Vol] 0.20 mg/dL 0.20-1.00 [facility] Work Phone: Comment on above: For patients on eltr ombopag therapy, use of Dimension [place] TBIL is not recommended. Chloride [Moles/Vol] 105 mmol/L 98-107 [facility] Work Phone: Glucose [Mass/Vol] 111 mg/dL 74-106 [facility] Work Phone: Comment on above: Fasting Glucose resu lt from 100 to 125 mg/dL suggests IMPAIRED HOMEOSTASIS per A.D.A. criteria. Potassium [Moles/Vol] 3.8 mmol/L 3.5-5.1 [facility] Work Phone: Protein [Mass/Vol] 7.6 g/dL 6.4-8.2 [facility] Work Phone: Sodium [Moles/Vol] 139 mmol/L 136-145 [facility] Work Phone: Basophil percentage 10-25 SEEN /hpf 0-5 [facility] Work Phone: Basophils/100 WBC (Bld) 0.3 % 0-1 [facility] Work Phone: Eosinophils/100 WBC (Bld) 2.4 % 0-5 [facility] Work Phone: Neutrophils (Bld) [#/Vol] 5.9 10*3/uL 2.0-7.7 [facility] Work Phone: Neutrophils/100 WBC (Bld) 57.9 % 47-70 [facility] Work Phone: WBC (Bld) [#/Vol] 10.2 10*3/uL 4.4-11.0 [facility] Work Phone: Beta hCG serum qualon 2021 Beta HCG ( test) Ql Negative [facility] Work Phone: Bilirubin Test strip Ql (U)o n 03-22-2022 Bilirubin Ql (U) Negative Negative [facility] Work Phone: Blood erythrocytes count (nu mber/volume)on 03-22-2022 RBC (Bld) [#/Vol] 5.43 10*6/uL 4.2-5.4 [facility] Work Phone: Blood hemoglobin measurement (mass/volume)on 03-22-2022 Hemoglobin (Bld) [Mass/Vol] 13.8 g/dL 12.0-15.0 [facility] Work Phone: Blood lymphocytes/100 leukoc yteson 03-22-2022 Lymphocytes/100 WBC (Bld) 32.4 % 19-41 [facility] Work Phone: Blood monocytes/100 leukocyt eson 03-22-2022 Monocytes/100 WBC (Bld) 6.8 % 0-10 [facility] Work Phone: Blood platelet mean volumeon 03-22-2022 Platelet mean volume (Bld) [Entitic vol] 13.1 fL 6.2-12.0 [facility] Work Phone: Determination of erythrocyte mean corpuscular volume (MCV)on 03-22-2022 MCV (RBC) [Entitic vol] 81.2 fL 81-99 [facility] Work Phone: Hematocrit Auto (Bld) [Volum e fraction]on 03-22-2022 Hematocrit (Bld) [Volume fraction] 44.1 % 37-47 [facility] Work Phone: Ketones Test strip Ql (U)on 03-22-2022 Ketones Ql (U) Negative Negative [facility] Work Phone: Laboratory - Chemistry and C hemistry - challengeon 03-22-2022 ALP [Catalytic activity/Vol] 99 U/L 45-117 [facility] Work Phone: ALT [Catalytic activity/Vol] 42 U/L 13-56 [facility] Work Phone: CO2 [Moles/Vol] 31.0 mmol/L 21.0-32.0 [facility] Work Phone: Globulin (S) [Mass/Vol] 4.3 g/dL 2.2-4.2 [facility] Work Phone: Urea nitrogen/Creatinine [Mass ratio] 19.3 mg/mg 10-20 [facility] Work Phone: Laboratory - Hematology and Cell countson 03-22-2022 Erythrocyte distribution width (RBC) [Entitic vol] 45.0 fL 35.1-43.9 [facility] Work Phone: Erythrocyte distribution width (RBC) [Ratio] 15.4 % 11.6-14.6 [facility] Work Phone: Immature granulocytes/100 WBC (Bld) 0.200 % 0.0-0.9 [facility] Work Phone: Comment on above: IG% - Immature Granu locytes (promyelocytes, myelocytes and metamyelocytes) > 1% indicates that a LEFT SHIFT is Present. MCH (RBC) [Entitic mass] 25.4 pg 27.0-32.0 [facility] Work Phone: Nucleated RBC/100 WBC (Bld) [Ratio] 0 % 0-5 [facility] Work Phone: MCHC Auto (RBC) [Mass/Vol]on 03-22-2022 MCHC (RBC) [Mass/Vol] 31.3 g/dL 32-36 [facility] Work Phone: Mucus LM Ql (Urine sed)on Mucus Ql (Urine sed) 0 SEEN /hpf [facility] Work Phone: Nitrite Test strip Ql (U)on 03-22-2022 Nitrite Ql (U) Negative Negative [facility] Work Phone: No Panel Informationon 03-22 Estimated Creatinine Clearance Calc 110.09 ml/min [facility] Work Phone: Estimated GFR (MDRD) Amer 121 mL/min >60 [facility] Work Phone: Comment on above: GFR Calc Estimated GFR (MDRD) Non-Af Amer 100 mL/min >60 [facility] Work Phone: Comment on above: Non- GFR Calc Troponin I High Sensitivity 4 pg/mL 3.0-54.0 [facility] Work Phone: Comment on above: Please Note: New Cindy t Units and Gender Specific Reference Ranges. For more information see Policy Stat Procedure [place] High Sensitivity Troponin (TNIH) and attachments. Platelets bldon 03-22-2022 Platelets (Bld) [#/Vol] 228 10*3/uL 150-450 [facility] Work Phone: Protein Test strip Ql (U)on 03-22-2022 Protein Ql (U) Negative Negative [facility] Work Phone: Serum or plasma albumin prieto urement (mass/volume)on 03-22-2022 Albumin [Mass/Vol] 3.3 g/dL 3.2-5.0 [facility] Work Phone: Serum or plasma albumin/glob ulin mass ratioon 03-22-2022 Albumin/Globulin [Mass ratio] 0.8 {ratio} 0.9-2.4 [facility] Work Phone: Serum or plasma calcium prieto urement (mass/volume)on 03-22-2022 Calcium [Mass/Vol] 8.9 mg/dL 8.5-10.1 [facility] Work Phone: Serum or plasma creatinine m easurement (mass/volume)on 03-22-2022 Creatinine [Mass/Vol] 0.72 mg/dL 0.55-1.02 [facility] Work Phone: Comment on above: The validity of the calculated GFR & GFRAA in patients over 70 years has not been determined. Clinical correlation is essential. Serum or plasma urea nitroge n measurement (mass/volume)on 03-22-2022 Urea nitrogen [Mass/Vol] 14 mg/dL 7-18 [facility] Work Phone: Squamous epithelial cells de tection in urine sediment by light microscopyon 03-22-2022 Epithelial cells.squamous LM Ql (Urine sed) 0-5 SEEN /hpf 5-10 [facility] Work Phone: Thin prep Papanicolaou smear with manual screeningon 03-22-2022 Thin prep Papanicolaou smear with manual screening 27 U/L 15-37 [facility] Work Phone: Thin prep Papanicolaou smear with manual screening 3 5-15 [facility] Work Phone: Urine blood detectionon 03-10 RBC Ql (U) Negative Negative [facility] Work Phone: RBC Ql (U) 0-5 SEEN /hpf 0-5 [facility] Work Phone: Urine clarityon 03-22-2022 Clarity (U) Clear Clear [facility] Work Phone: Urine color determinationon 03-22-2022 Color (U) Yellow Yellow [facility] Work Phone: Urine glucose detectionon Glucose Ql (U) Normal mg/dl Normal [facility] Work Phone: Urine leukocyte esterase det ection by dipstickon 03-22-2022 Leukocyte esterase Test strip Ql (U) 100 /ul Negative [facility] Work Phone: Urine pHon 03-22-2022 pH (U) 6.0 [pH] 5.0 - 8.0 [facility] Work Phone: Urine sediment bacteria coun t by microscopy (number/high power field)on 03-22-2022 Bacteria LM.HPF (Urine sed) [#/Area] 2 /[HPF] None Seen [facility] Work Phone: Urine specific gravity measu rementon 03-22-2022 Specific gravity (U) [Rel density] 1.020 1.002-1.030 [facility] Work Phone: Urobilinogen Auto test strip Ql (U)on 03-22-2022 Urobilinogen Ql (U) Normal mg/dl Normal [facility] Work Phone: HCG, Beta Quantitativeon HCG.beta subunit Qn m[IU]/mL MG-[employer]ACHINE [employer]PERATOR-Ri [facility] Work Phone: Comment on above: Low-level positive H CG results can be seen in early , in cody- or post-menopausal females due to normal pituitary HCG production, or with analytic interference. Repeat testing in 48-72 hours can aid in assessing for as results should double in this time period. FSH measurement is recommended in cody- or post-menopausal females as concurrent elevation of FSH can support pituitary production as the source of the HCG elevation. . Total HCG measurement is performed using the [employer] immunoassay which detects intact HCG and free beta HCG subunit. This test is not indicated for use as a tumor marker. HCG testing is performed using a different test methodology at [facility] than other [facility]. Direct result comparison should only be made within the same method. REF VALUESNON FEMALE <5MALES <5 Progesterone, Serumon 2021 Progesterone [Mass/Vol] 0.7 ng/mL M [facility]-OB[facility]N-[facility] IVF Work Phone: Comment on above: REF VALUESMALE <0.3- 1.2 FOLLICULAR PHASE <0.3- 1.4 LUTEAL PHASE 3.3-25.6 MID-LUTEAL PHASE 4.4-28.0POSTMENOPAUSAL <0.3- 0.7 FEMALES: 1ST TRIMESTER 11.2- 90.0 2ND TRIMESTER 25.6- 89.4 3RD TRIMESTER 48.4-422.5 .Patients receiving DHEA-S supplements may show false elevation ofprogesterone for results near 1.0 ng/mL. Contact laboratory [phone] if alternative testing is needed. Absolute lymphocyte counton 03-08-2022 Lymphocytes Auto (Unsp spec) [#/Vol] 3.60 10*3/uL 0.83-4.51 [facility] Work Phone: Basophil percentageon 2021 Basophils/100 WBC (Bld) 0.4 % 0-1 [facility] Work Phone: Bilirubin [Mass/Vol] 0.30 mg/dL 0.20-1.00 [facility] Work Phone: Comment on above: For patients on eltr ombopag therapy, use of Dimension [place] TBIL is not recommended. Chloride [Moles/Vol] 107 mmol/L 98-107 [facility] Work Phone: [phone] Eosinophils/100 WBC (Bld) 2.2 % 0-5 [facility] Work Phone: Glucose [Mass/Vol] 100 mg/dL 74-106 [facility] Work Phone: Comment on above: Fasting Glucose resu lt from 100 to 125 mg/dL suggests IMPAIRED HOMEOSTASIS per A.D.A. criteria. Neutrophils (Bld) [#/Vol] 8.3 10*3/uL 2.0-7.7 [facility] Work Phone: Neutrophils/100 WBC (Bld) 63.6 % 47-70 [facility] Work Phone: Potassium [Moles/Vol] 5.2 mmol/L 3.5-5.1 [facility] Work Phone: Comment on above: Moderate Hemolysis, Result may be falsely increased. Protein [Mass/Vol] 7.6 g/dL 6.4-8.2 [facility] Work Phone: Sodium [Moles/Vol] 140 mmol/L 136-145 [facility] Work Phone: WBC (Bld) [#/Vol] 13.0 10*3/uL 4.4-11.0 [facility] Work Phone: Beta hCG serum qualon 2021 Beta HCG ( test) Ql Negative [facility] Work Phone: Blood erythrocytes count (nu mber/volume)on 03-08-2022 RBC (Bld) [#/Vol] 5.00 10*6/uL 4.2-5.4 [facility]: Blood hemoglobin measurement (mass/volume)on 03-08-2022 Hemoglobin (Bld) [Mass/Vol] 12.6 g/dL 12.0-15.0 [facility] Work Phone: Blood lymphocytes/100 leukoc yteson 03-08-2022 Lymphocytes/100 WBC (Bld) 27.8 % 19-41 [facility] Work Phone: Blood monocytes/100 leukocyt eson 03-08-2022 Monocytes/100 WBC (Bld) 5.8 % 0-10 [facility] Work Phone: Blood platelet mean volumeon 03-08-2022 Platelet mean volume (Bld) [Entitic vol] 12.4 fL 6.2-12.0 [facility] Work Phone: Determination of erythrocyte mean corpuscular volume (MCV)on 03-08-2022 MCV (RBC) [Entitic vol] 81.8 fL 81-99 [facility] Work Phone: Hematocrit Auto (Bld) [Volum e fraction]on 03-08-2022 Hematocrit (Bld) [Volume fraction] 40.9 % 37-47 [facility] Work Phone: Laboratory - Chemistry and C hemistry - challengeon 03-08-2022 ALP [Catalytic activity/Vol] 102 U/L 45-117 [facility] Work Phone: ALT [Catalytic activity/Vol] 38 U/L 13-56 [facility] Work Phone: CO2 [Moles/Vol] 28.0 mmol/L 21.0-32.0 [facility] Work Phone: Globulin (S) [Mass/Vol] 4.5 g/dL 2.2-4.2 [facility] Work Phone: Lipase [Catalytic activity/Vol] 150 U/L 73-393 [facility] Work Phone: Urea nitrogen/Creatinine [Mass ratio] 17.3 mg/mg 10-20 [facility] Work Phone: Laboratory - Hematology and Cell countson 03-08-2022 Erythrocyte distribution width (RBC) [Entitic vol] 45.7 fL 35.1-43.9 [facility] Work Phone: Erythrocyte distribution width (RBC) [Ratio] 15.4 % 11.6-14.6 [facility] Work Phone: [phone] Immature granulocytes/100 WBC (Bld) 0.200 % 0.0-0.9 [facility] Work Phone: Comment on above: IG% - Immature Granu locytes (promyelocytes, myelocytes and metamyelocytes) > 1% indicates that a LEFT SHIFT is Present. MCH (RBC) [Entitic mass] 25.2 pg 27.0-32.0 [facility] Work Phone: Nucleated RBC/100 WBC (Bld) [Ratio] 0 % 0-5 [facility] Work Phone: MCHC Auto (RBC) [Mass/Vol]on 03-08-2022 MCHC (RBC) [Mass/Vol] 30.8 g/dL 32-36 [facility] Work Phone: No Panel Informationon 03-08 Estimated Creatinine Clearance Calc 91.11 ml/min [facility] Work Phone: Estimated GFR (MDRD) Amer 98 mL/min >60 [facility] Work Phone: Comment on above: GFR Calc Estimated GFR (MDRD) Non-Af Amer 81 mL/min >60 [facility] Work Phone: Comment on above: Non- GFR Calc Platelets bldon 03-08-2022 Platelets (Bld) [#/Vol] 229 10*3/uL 150-450 [facility] Work Phone: Serum or plasma albumin prieto urement (mass/volume)on 03-08-2022 Albumin [Mass/Vol] 3.1 g/dL 3.2-5.0 [facility] Work Phone: Serum or plasma albumin/glob ulin mass ratioon 03-08-2022 Albumin/Globulin [Mass ratio] 0.7 {ratio} 0.9-2.4 [facility] Work Phone: Serum or plasma calcium prieto urement (mass/volume)on 03-08-2022 Calcium [Mass/Vol] 9.0 mg/dL 8.5-10.1 [facility] Work Phone: Serum or plasma creatinine m easurement (mass/volume)on 03-08-2022 Creatinine [Mass/Vol] 0.87 mg/dL 0.55-1.02 [facility] Work Phone: Comment on above: The validity of the calculated GFR & GFRAA in patients over 70 years has not been determined. Clinical correlation is essential. Serum or plasma urea nitroge n measurement (mass/volume)on 03-08-2022 Urea nitrogen [Mass/Vol] 15 mg/dL 7-18 [facility] Work Phone: Thin prep Papanicolaou smear with manual screeningon 03-08-2022 Thin prep Papanicolaou smear with manual screening 52 U/L 15-37 [facility] Work Phone: Comment on above: Moderate Hemolysis, Result may be falsely increased. Thin prep Papanicolaou smear with manual screening 5 5-15 [facility] Work Phone: HCG QUAL BLDon 02-10-2022 HCG, Qualitative Blood Negative Negative [facility] Basophil percentageon 2021 Chloride [Moles/Vol] 108 mmol/L 98-107 [facility] Work Phone: Glucose [Mass/Vol] 125 mg/dL 74-106 [facility] Work Phone: Comment on above: Fasting Glucose resu lt from 100 to 125 mg/dL suggests IMPAIRED HOMEOSTASIS per A.D.A. criteria. Potassium [Moles/Vol] 4.7 mmol/L 3.5-5.1 [facility] Work Phone: Comment on above: Moderate Hemolysis, Result may be falsely increased. Sodium [Moles/Vol] 139 mmol/L 136-145 [facility] Work Phone: Laboratory - Chemistry and C hemistry - challengeon 01-04-2022 CO2 [Moles/Vol] 25.0 mmol/L 21.0-32.0 [facility] Work Phone: Magnesium [Mass/Vol] 2.1 mg/dL 1.6-2.6 [facility] Work Phone: Comment on above: Moderate Hemolysis, Result may be falsely increased. Urea nitrogen/Creatinine [Mass ratio] 13.1 mg/mg 10-20 [facility] Work Phone: No Panel Informationon 01-04 Estimated Creatinine Clearance Calc 105.26 ml/min [facility] Work Phone: Estimated GFR (MDRD) Amer 114 mL/min >60 [facility] Work Phone: Comment on above: GFR Calc Estimated GFR (MDRD) Non-Af Amer 94 mL/min >60 [facility] Work Phone: Comment on above: Non- GFR Calc Serum or plasma calcium prieto urement (mass/volume)on 01-04-2022 Calcium [Mass/Vol] 8.7 mg/dL 8.5-10.1 [facility] Work Phone: Serum or plasma creatinine m easurement (mass/volume)on 01-04-2022 Creatinine [Mass/Vol] 0.76 mg/dL 0.55-1.02 [facility] Work Phone: Comment on above: The validity of the calculated GFR & GFRAA in patients over 70 years has not been determined. Clinical correlation is essential. Serum or plasma urea nitroge n measurement (mass/volume)on 01-04-2022 Urea nitrogen [Mass/Vol] 10 mg/dL 7-18 [facility] Work Phone: Thin prep Papanicolaou smear with manual screeningon 01-04-2022 Thin prep Papanicolaou smear with manual screening 6 5-15 [facility] Work Phone: Absolute lymphocyte counton 11-19-2021 Lymphocytes Auto (Unsp spec) [#/Vol] 2.70 10*3/uL 0.83-4.51 [facility] Work Phone: Basophil percentageon 2021 Potassium [Moles/Vol] 3.6 mmol/L 3.5-5.1 [facility] Work Phone: Basophils/100 WBC (Bld) 0.2 % 0-1 [facility] Work Phone: Chloride [Moles/Vol] 105 mmol/L 98-107 [facility] Work Phone: Eosinophils/100 WBC (Bld) 1.6 % 0-5 [facility] Work Phone: Glucose [Mass/Vol] 128 mg/dL 74-106 [facility] Work Phone: Comment on above: Fasting Glucose resu lt greater than or equal to 126 mg/dL suggests DIABETES MELLITUS per A.D.A. criteria. Neutrophils (Bld) [#/Vol] 9.6 10*3/uL 2.0-7.7 [facility] Work Phone: [phone] Neutrophils/100 WBC (Bld) 72.3 % 47-70 [facility] Work Phone: Sodium [Moles/Vol] 139 mmol/L 136-145 [facility] Work Phone: WBC (Bld) [#/Vol] 13.3 10*3/uL 4.4-11.0 [facility] Work Phone: Blood erythrocytes count (nu mber/volume)on 11-19-2021 RBC (Bld) [#/Vol] 5.20 10*6/uL 4.2-5.4 [facility] Work Phone: Blood hemoglobin measurement (mass/volume)on 11-19-2021 Hemoglobin (Bld) [Mass/Vol] 13.4 g/dL 12.0-15.0 [facility] Work Phone: Blood lymphocytes/100 leukoc yteson 11-19-2021 Lymphocytes/100 WBC (Bld) 20.3 % 19-41 [facility] Work Phone: Blood monocytes/100 leukocyt eson 11-19-2021 Monocytes/100 WBC (Bld) 5.3 % 0-10 [facility] Work Phone: Blood platelet mean volumeon 11-19-2021 Platelet mean volume (Bld) [Entitic vol] 11.6 fL 6.2-12.0 [facility] Work Phone: Determination of erythrocyte mean corpuscular volume (MCV)on 11-19-2021 MCV (RBC) [Entitic vol] 80.2 fL 81-99 [facility] Work Phone: Hematocrit Auto (Bld) [Volum e fraction]on 11-19-2021 Hematocrit (Bld) [Volume fraction] 41.7 % 37-47 [facility] Work Phone: Laboratory - Chemistry and C hemistry - challengeon 11-19-2021 CO2 [Moles/Vol] 28.0 mmol/L 21.0-32.0 [facility] Work Phone: Urea nitrogen/Creatinine [Mass ratio] 12.1 mg/mg 10-20 [facility] Work Phone: Laboratory - Hematology and Cell countson 11-19-2021 Erythrocyte distribution width (RBC) [Entitic vol] 43.6 fL 35.1-43.9 [facility] Work Phone: Erythrocyte distribution width (RBC) [Ratio] 15.1 % 11.6-14.6 [facility] Work Phone: Immature granulocytes/100 WBC (Bld) 0.300 % 0.0-0.9 [facility] Work Phone: Comment on above: IG% - Immature Granu locytes (promyelocytes, myelocytes and metamyelocytes) > 1% indicates that a LEFT SHIFT is Present. MCH (RBC) [Entitic mass] 25.8 pg 27.0-32.0 [facility] Work Phone: Nucleated RBC/100 WBC (Bld) [Ratio] 0 % 0-5 [facility] Work Phone: MCHC Auto (RBC) [Mass/Vol]on 11-19-2021 MCHC (RBC) [Mass/Vol] 32.1 g/dL 32-36 [facility] Work Phone: No Panel Informationon 11-19 Troponin I High Sensitivity 6 pg/mL 3.0-54.0 [facility] Work Phone: Comment on above: Please Note: New Cindy t Units and Gender Specific Reference Ranges. For more information see Policy Stat Procedure [place] High Sensitivity Troponin (TNIH) and attachments. Estimated Creatinine Clearance Calc 87.91 ml/min [facility] Work Phone: Estimated GFR (MDRD) Amer 93 mL/min >60 [facility] Work Phone: Comment on above: GFR Calc Estimated GFR (MDRD) Non-Af Amer 77 mL/min >60 [facility] Work Phone: Comment on above: Non- GFR Calc Platelets bldon 11-19-2021 Platelets (Bld) [#/Vol] 257 10*3/uL 150-450 [facility] Work Phone: Serum or plasma calcium prieto urement (mass/volume)on 11-19-2021 Calcium [Mass/Vol] 9.1 mg/dL 8.5-10.1 [facility] Work Phone: Serum or plasma creatinine m easurement (mass/volume)on 11-19-2021 Creatinine [Mass/Vol] 0.91 mg/dL 0.55-1.02 [facility] Work Phone: Comment on above: The validity of the calculated GFR & GFRAA in patients over 70 years has not been determined. Clinical correlation is essential. Serum or plasma urea nitroge n measurement (mass/volume)on 11-19-2021 Urea nitrogen [Mass/Vol] 11 mg/dL 7-18 [facility] Work Phone: Thin prep Papanicolaou smear with manual screeningon 11-19-2021 Thin prep Papanicolaou smear with manual screening 6 5-15 [facility] Work Phone: No Panel Informationon 09-10 Valproic Acid (Depakene) Level 6 ug/mL 50-100 [facility] Work Phone: LMPon 06-07-2021 Fall risk assessment a) No falls within the last year [facility] Work Phone: Last menstrual period start date [id number] [facility] Work Phone: Tobacco use status CPHS b) No [facility] [facility] Work Phone: PLASTIC TUBING INSULATION SUPERVISOR - Office Visiton 05-12 PLASTIC TUBING INSULATION SUPERVISOR - Office Visit Orders Stop: Progesterone Micronized 200 MG CAPS Patient Discussion/Summary 31 yo presenting for follow-up visit for ectopic to discuss fertility options s/p methotrexate therapy for ectopic (Apr 2021). Ectopic - Resolved with methotrexate based on HCG < 2 - Encouraged pt to continue calorie counting, cutting out sugary drinks, and exercising. Discussed risks of obesity in including pre-eclampsia and worsening of diabetes. Pt expressed motivation to lose weight. - Discussed workup for APLS. Pt has not yet had chromosome analysis due to lack of insurance coverage Discussed with Dr. Derick Charles MD (PGY-2) Obstetrics and Gynecology The patient was counseled regarding diagnostic results, instructions for management, prognosis, patient and family education and risks and benefits of treatment options. Provider Impressions 31 yo presenting for follow-up visit for ectopic to discuss fertility options s/p methotrexate therapy for ectopic (Apr 2021). Ectopic - Resolved with methotrexate based on HCG < 2 - Encouraged pt to continue calorie counting, cutting out sugary drinks, and exercising. Discussed risks of obesity in including pre-eclampsia and worsening of diabetes. Pt expressed motivation to lose weight. - Discussed workup for APLS. Pt has not yet had chromosome analysis due to lack of insurance coverage Discussed with Dr. Derick Charles MD (PGY-2) Obstetrics and Gynecology Chief Complaint An interactive audio and video telecommunication system which permits real time communications between the patient (at the originating site) and provider (at the distant site) was utilized to provide this telehealth service. 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 She conceived naturally with her partner and has no prior history of ectopic . Hcg downtrended appropriately after methotrexate therapy. Pt would like to discuss additional fertility options considering her prior difficulties sustaining a . Past medical history is significant for obesity (BMI 49) and type II diabetes (HbA1c 6.1% Feb 2020) on metformin 2500 qhs. Reports she has been counting calories, cut out sugary drinks and has been walking daily. Reports recently she has been stress eating due to of mom two weeks ago. 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: The patient has no prior history of pelvic surgery or pelvic infections PMx: obesity (BMI 49), T2DM, hypothyroidism, asthma, GERD, migraines PSx: DANDC, cholecystectomy, tonsillectomy Meds: metformin, synthroid, aspirin, progesterone, vit D, PNVs Allergies: compazine SH: denies E/T/D Active Problems Problems Abnormal human chorionic gonadotropin (hCG) Amenorrhea (626.0) (N91.2) Diabetes mellitus of other type without complication (250.00) (E13.9) Encounter for supervision of other normal (V22.1) (Z34.80) GDM (gestational diabetes mellitus) (648.80) (O24.419) History of recurrent , not currently (629.81) (N96) Left tubal without intrauterine (633.10) (O00.102) Morbid obesity with BMI of 50.0-59.9, adult (278.01,V85.43) (E66.01,Z68.43) Nausea (787.02) (R11.0) , complicated (646.90) (O26.90) Recurrent loss with current (646.33) (O26.20) Recurrent loss without current (629.81) (N96) Recurrent loss, currently (646.33) (O26.20) Rubella non-immune status, antepartum (646.83,V15.83) (O99.891,Z28.3) Subclinical hypothyroidism (244.8) (E03.8) Unconfirmed (V72.40) (Z32.00) Urinary frequency (788.41) (R35.0) UTI (urinary tract infection) (599.0) (N39.0) Vaginal irritation (623.9) (N89.8) Vaginal itching (698.1) (N89.8) Past Medical History Problems History of asthma (V12.69) (Z87.09) History of gastroesophageal reflux (GERD) (V12.79) (Z87.19) History of insulin resistance (V12.29) (Z86.39) History of migraine headaches (V12.49) (Z86.69) Denied: History of seizures Surgical History Problems History of Cholecystectomy History of Dilation and curettage History of Tonsillectomy History of [place] tooth extraction Family History Mother Family history of brain cancer (V16.8) (Z80.8) Father Family hx of hypertension (V17.49) (Z82.49) Maternal Grandmother Family history of cancer (V16.9) (Z80.9) Family history of diabetes mellitus (DM) (V18.0) (Z83.3) Paternal Grandmothe (more content not included)... Normal [facility] HCG, Beta Quantitativeon HCG.beta subunit Qn m[IU]/mL MG-ALL AROUND GEAR MACHINE OPERATOR-[facility] Work Phone: Comment on above: Low-level positive H CG results can be seen in early , in cody- or post-menopausal females due to normal pituitary HCG production, or with analytic interference. Repeat testing in 48-72 hours can aid in assessing for as results should double in this time period. FSH measurement is recommended in cody- or post-menopausal females as concurrent elevation of FSH can support pituitary production as the source of the HCG elevation.. Total HCG measurement is performed using the [employer] Access Immunoassay which detects intact HCG and free beta HCG subunit. This test is not indicated for use as a tumor marker. HCG testing is performed using a different test methodology at [facility] than other [facility]. Direct result comparison should only be made within the same method. REF VALUESNON FEMALE <5MALES <5 HCG, Beta Quantitativeon HCG.beta subunit Qn 11 m[IU]/mL Abnormal [facility] Work Phone: Comment on above: Low-level positive H CG results can be seen in early , in cody- or post-menopausal females due to normal pituitary HCG production, or with analytic interference. Repeat testing in 48-72 hours can aid in assessing for as results should double in this time period. FSH measurement is recommended in cody- or post-menopausal females as concurrent elevation of FSH can support pituitary production as the source of the HCG elevation.. Total HCG measurement is performed using the [employer] Access Immunoassay which detects intact HCG and free beta HCG subunit. This test is not indicated for use as a tumor marker. HCG testing is performed using a different test methodology at [facility] than other [facility]. Direct result comparison should only be made within the same method. REF VALUESNON FEMALE <5MALES <5 HCG,BETA-QUANTITATIVEon 08-0 HCG,BETA-QUANTITATIVE 11 mIU/mL Abnormal [facility] Comment on above: Result Comment: Low- level positive HCG results can be seen in early , in cody- or post-menopausal females due to normal pituitary HCG production, or with analytic interference. Repeat testing in 48-72 hours can aid in assessing for as results should double in this time period. FSH measurement is recommended in cody- or post-menopausal females as concurrent elevation of FSH can support pituitary production as the source of the HCG elevation. . Total HCG measurement is performed using the [employer] Access Immunoassay which detects intact HCG and free beta HCG subunit. This test is not indicated for use as a tumor marker. HCG testing is performed using a different test methodology at [facility] than other [facility]. Direct result comparison should only be made within the same method. REF VALUES NON FEMALE <5 MALES <5 Performed By: #### H CGQU #### [facility] [address] [place] [address] HCG, Beta Quantitativeon HCG.beta subunit Qn 16 m[IU]/mL Abnormal [facility] Work Phone: Comment on above: Low-level positive H CG results can be seen in early , in cody- or post-menopausal females due to normal pituitary HCG production, or with analytic interference. Repeat testing in 48-72 hours can aid in assessing for as results should double in this time period. FSH measurement is recommended in cody- or post-menopausal females as concurrent elevation of FSH can support pituitary production as the source of the HCG elevation.. Total HCG measurement is performed using the [employer] Access Immunoassay which detects intact HCG and free beta HCG subunit. This test is not indicated for use as a tumor marker. HCG testing is performed using a different test methodology at [facility] than other [facility]. Direct result comparison should only be made within the same method. REF VALUESNON FEMALE <5MALES <5 HCG,BETA-QUANTITATIVEon 08-0 HCG,BETA-QUANTITATIVE 16 mIU/mL Abnormal [facility] Comment on above: Result Comment: Low- level positive HCG results can be seen in early , in cody- or post-menopausal females due to normal pituitary HCG production, or with analytic interference. Repeat testing in 48-72 hours can aid in assessing for as results should double in this time period. FSH measurement is recommended in cody- or post-menopausal females as concurrent elevation of FSH can support pituitary production as the source of the HCG elevation. . Total HCG measurement is performed using the [employer] Access Immunoassay which detects intact HCG and free beta HCG subunit. This test is not indicated for use as a tumor marker. HCG testing is performed using a different test methodology at [facility] than other [facility]. Direct result comparison should only be made within the same method. REF VALUES NON FEMALE <5 MALES <5 Performed By: #### H CGQU #### [facility] [address] [id number] HCG, Beta Quantitativeon HCG.beta subunit Qn 58 m[IU]/mL Abnormal MG-O BGYN-Ri sman 310 IVF Work Phone: [phone] Comment on above: Low-level positive H CG results can be seen in early , in cody- or post-menopausal females due to normal pituitary HCG production, or with analytic interference. Repeat testing in 48-72 hours can aid in assessing for as results should double in this time period. FSH measurement is recommended in cody- or post-menopausal females as concurrent elevation of FSH can support pituitary production as the source of the HCG elevation.. Total HCG measurement is performed using the [employer] Access Immunoassay which detects intact HCG and free beta HCG subunit. This test is not indicated for use as a tumor marker. HCG testing is performed using a different test methodology at [facility] than other [facility]. Direct result comparison should only be made within the same method. REF VALUESNON FEMALE <5MALES <5 Laboratory - Chemistry and C hemistry - challengeon 04-11-2021 Albumin BCP dye [Mass/Vol] 3.9 g/dL 3.4 - 5.0 MG-OBGYN-Ri sman 310 IVF Work Phone: [phone] ALP [Catalytic activity/Vol] 96 U/L 33 - 110 MG-OBGYN-Ri sman 310 IVF Work Phone: [phone] ALT With P-5'-P [Catalytic activity/Vol] 35 U/L 7 - 45 MG-OBGYN-Ri sman 310 IVF Work Phone: [phone] Comment on above: Patients treated wit h Sulfasalazine may generate falsely decreased results for ALT. Anion gap [Moles/Vol] 11 mmol/L 10 - 20 MG- OBGYN-Ri sman 310 IVF Work Phone: [phone] AST With P-5'-P [Catalytic activity/Vol] 24 U/L 9 - 39 MG-OBGYN-Ri sman 310 IVF Work Phone: [phone] Bilirubin [Mass/Vol] 0.3 mg/dL 0.0 - 1.2 MG-O BGYN-Ri sman 310 IVF Work Phone: [phone] Calcium [Mass/Vol] 9.0 mg/dL 8.6 - 10.3 MG-OBG YN-Ri sman 310 IVF Work Phone: [phone] Chloride [Moles/Vol] 105 mmol/L 98 - 107 MG-O BGYN-Ri sman 310 IVF Work Phone: [phone] CO2 [Moles/Vol] 28 mmol/L 21 - 32 MG-OBGYN- Ri sman 310 IVF Work Phone: [phone] Creatinine [Mass/Vol] 0.70 mg/dL See Below MG- OBGYN-Ri sman 310 IVF Work Phone: [phone] Comment on above: Reference Range: 0.5 0 - 1.05 Glucose [Mass/Vol] 65 mg/dL below low threshold 74 - 99 MG-OBGYN-Ri sman 310 IVF Work Phone: [phone] Potassium [Moles/Vol] 4.0 mmol/L 3.5 - 5.3 MG- OBGYN-Ri sman 310 IVF Work Phone: [phone] Protein [Mass/Vol] 7.0 g/dL 6.4 - 8.2 MG-OBG YN-Ri sman 310 IVF Work Phone: [phone] Sodium [Moles/Vol] 140 mmol/L 136 - 145 MG-OBG YN-Ri sman 310 IVF Work Phone: [phone] Urea nitrogen [Mass/Vol] 11 mg/dL 6 - 23 MG-OBGYN-Ri sman 310 IVF Work Phone: [phone] No Panel Informationon 04-11 >60 >60 MG-OBGYN-Ri sman 310 IVF Work Phone: [phone] Comment on above: CALCULATIONS OF DUY MATED GFR ARE PERFORMED USING THE MDRD STUDY EQUATION FOR THE IDMS-TRACEABLE CREATININE METHODS. CLIN CHEM 2007;53:766-72 Office Visiton 04-11-2021 Follow-up visit Diagnoses/Problems Left tubal without intrauterine (633.10) (O00.102) Orders Left tubal without intrauterine HCG, Beta Quantitative; Status:Active; Requested for:[id number]; HCG, Beta Quantitative; Status:Active; Requested for:[id number]; Recurrent loss with current HCG, Beta Quantitative; Status:Canceled; Provider Impressions 31 yo with RPL and APLS, now with concern for ectopic . - Repeat TVUS today re-demonstrates no IUP. Normal appearing right ovary. Left adnexa with c/f tubal ectopic . The left fallopian tubes appears mildly dilated, with c/f tubal near the fimbriae. Given imaging findings and abnormal hCG trends, likely ectopic that is working its way out of the left tube. - Counseled on management options including expectant, medical and surgical. Given that patient is hemodynamically stable, recommend treatment with MTX. Reviewed r/b/a. Discussed possibility of needing second injection and/or surgical intervention. Patient expressed understanding and agreement with plan of care. - Reviewed CBC, CMP, type and screen drawn last evening in ED. MTX ordered and administered in the office without complication. Instructed patient to return on day 4 (04/14) and day 7 (04/17) for repeat hCG levels. - Patient is blood type is O+, no indication for Rhogam. d/w Dr. Rissa Watson MD PGY-5 04/11/2021 16:46 Chief Complaint c/f ectopic History of Present [id number] yo with RPL and APLS, now with concern for ectopic . She conceived naturally and had an abnl rising HCG 57 to 56 and yesterday had pelvic pain no bleeding. She has no hx of ectopic but bc of her pain, she was sent to the ED. Per ED note, she went to [facility] and US showed no IUP and no adnexal mass, scant free fluid. hGb was 13. Rh pos. Her HCG was 69 and the exam was documented as nontender and non surgical. Today, patient continued to have left sided pelvic pain and thus was asked to present for repeat TVUS. Patient describes the pain as cramping and occasionally sharp on the left side. Denies right sided pain. Denies any vaginal bleeding or passage of clots/tissue. No n/v, SOB, CP, f/c, dizziness or lightheadedness. 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 surgery or pelvic infections PMx: obesity (BMI 50.9), T2DM, hypothyroidism, asthma, GERD, migraines PSx: DANDC, cholecystectomy, tonsillectomy Meds: metformin, synthroid, aspirin, progesterone, vit D, PNVs Allergies: compazine SH: denies E/T/D Active Problems Abnormal human chorionic gonadotropin (hCG) Amenorrhea (626.0) (N91.2) Diabetes mellitus of other type without complication (250.00) (E13.9) Encounter for supervision of other normal (V22.1) (Z34.80) GDM (gestational diabetes mellitus) (648.80) (O24.419) History of recurrent , not currently (629.81) (N96) Morbid obesity with BMI of 50.0-59.9, adult (278.01,V85.43) (E66.01,Z68.43) Nausea (787.02) (R11.0) , complicated (646.90) (O26.90) Recurrent loss with current (646.33) (O26.20) Recurrent loss without current (629.81) (N96) Recurrent loss, currently (646.33) (O26.20) Rubella non-immune status, antepartum (646.83,V15.83) (O99.891,Z28.3) Subclinical hypothyroidism (244.8) (E03.8) Unconfirmed (V72.40) (Z32.00) Urinary frequency (788.41) (R35.0) UTI (urinary tract infection) (599.0) (N39.0) Vaginal irritation (623.9) (N89.8) Vaginal itching (698.1) (N89.8) Past Medical History History of asthma (V12.69) (Z87.09) History of gastroesophageal reflux (GERD) (V12.79) (Z87.19) History of insulin resistance (V12.29) (Z86.39) History of migraine headaches (V12.49) (Z86.69) Denied: History of seizures Surgical History History of Cholecystectomy History of Dilation and curettage History of Tonsillectomy History of [place] tooth extraction Social History Caffeine use (V49.89) (Z78.9) Does not exercise (V69.0) (Z72.3) 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 MUST HAVE NEGATIVE TEST BEFORE TAKING FIRST TABLET EACH CYCLE. Levothyroxine Sodium 50 MCG Oral TabletTAKE (more content not included)... Normal [facility] ABO/RH GROUP TESTon 04-10-20 21 ABO TYPE O Normal [facility] Comment on above: Performed By: #### A LUZ #### [facility] [address] [id number] RH TYPE Positive Normal [facility] Comment on above: Performed By: #### A LUZ #### [facility] [address] [place] [address] BASIC METABOLIC PANELon 08-0 Anion gap [Moles/Vol] 12 mmol/L Normal 10 - 20 [facility] Comment on above: Performed By: #### B MP #### [facility] [address] [place] [address] Calcium [Mass/Vol] 8.8 mg/dL Normal 8.6 - 10.3 [facility] Comment on above: Performed By: #### B MP #### [facility] [address] [place] [address] Chloride [Moles/Vol] 108 mmol/L High 98 - 107 [facility] Comment on above: Performed By: #### B MP #### [facility] [address] [place] [address] Creatinine [Mass/Vol] 0.69 mg/dL Normal 0.50 - 1.05 [facility] Comment on above: Performed By: #### B MP #### [facility] [address] [place] [address] GFR- AM. >60 Normal >60 [facility] Comment on above: Result Comment: CALC ULATIONS OF ESTIMATED GFR ARE PERFORMED USING THE MDRD STUDY EQUATION FOR THE IDMS-TRACEABLE CREATININE METHODS. CLIN CHEM 2007;53:766-72 Performed By: #### B MP #### [facility] [address] [place] [address] GFR-NON AM. >60 Normal >60 [facility] Comment on above: Performed By: #### B MP #### [facility] [address] [place] [address] Glucose [Mass/Vol] 89 mg/dL Normal 74 - 99 [facility] Comment on above: Performed By: #### B MP #### [facility] [address] [place] [address] HCO3 (Bld) [Moles/Vol] 25 mmol/L Normal 21 - 32 [facility] Comment on above: Performed By: #### B MP #### [facility] [address] [place] [address] Potassium [Moles/Vol] 4.1 mmol/L Normal 3.5 - 5.3 [facility] Comment on above: Performed By: #### B MP #### [facility] [address] [place] [address] Sodium [Moles/Vol] 141 mmol/L Normal 136 - 145 [facility] Comment on above: Performed By: #### B MP #### [facility] [address] [place] [address] Urea nitrogen [Mass/Vol] 11 mg/dL Normal 6 - 23 [facility] Comment on above: Performed By: #### B MP #### [facility] [address] [place] [address] Blood Typing (ABO + Rho D)on 04-10-2021 ABO group Nom (Bld) O MG-ALL AROUND GEAR MACHINE OPERATOR-Ri sman 310 IVF Work Phone: Rh immune globulin screen (Bld) [Interp] Positive [facility] Work Phone: CBC AND DIFFERENTIALon 04-10 % AUTOMATED IMMATURE GRAN 0.2 % Normal 0.0 - 0.9 [facility] Comment on above: Result Comment: Klaudia ture Granulocyte Count (IG) includes promyelocytes, myelocytes and metamyelocytes but does not include bands. Percent differential counts (%) should be interpreted in the context of the absolute cell counts (cells/L). Performed By: #### C BCDF #### [facility] [address] [place] [address] Basophils (Bld) [#/Vol] 0.04 10*3/uL Normal 0.00 - 0.1 0 [facility] Comment on above: Performed By: #### C BCDF #### [facility] [address] [place] [address] Basophils/100 WBC (Bld) 0.4 % Normal 0.0 - 2.0 [facility] Comment on above: Performed By: #### C BCDF #### [facility] [address] [place] [address] Eosinophils (Bld) [#/Vol] 0.25 10*3/uL Normal 0.00 - 0.70 [facility] Comment on above: Performed By: #### C BCDF #### [facility] [address] [place] [address] Eosinophils/100 WBC (Bld) 2.7 % Normal 0.0 - 6.0 [facility] Comment on above: Performed By: #### C BCDF #### [facility] [address] [place] [address] Erythrocyte distribution width (RBC) [Ratio] 16.0 % High 11.5 - 14.5 [facility] Comment on above: Performed By: #### C BCDF #### [facility] [address] [place] [address] Hematocrit (Bld) [Volume fraction] 42.3 % Normal 36.0 - 46.0 [facility] Comment on above: Performed By: #### C BCDF #### [facility] [address] [place] [address] Hemoglobin (Bld) [Mass/Vol] 13.3 g/dL Normal 12.0 - 16.0 [facility] Comment on above: Performed By: #### C BCDF #### [facility] [address] [place] [address] Lymphocytes (Bld) [#/Vol] 2.72 10*3/uL Normal 1.20 - 4.80 [facility] Comment on above: Performed By: #### C BCDF #### [facility] [address] [place] [address] Lymphocytes/100 WBC (Bld) 29.0 % Normal 13.0 - 44.0 [facility] Comment on above: Performed By: #### C BCDF #### [facility] [address] [place] [address] MCHC (RBC) [Mass/Vol] 31.4 g/dL Low 32.0 - 36.0 [facility] Comment on above: Performed By: #### C BCDF #### [facility] [address] [place] [address] MCV (RBC) [Entitic vol] 80 fL Normal 80 - 100 [facility] Comment on above: Performed By: #### C BCDF #### [facility] [address] [place] [address] Monocytes (Bld) [#/Vol] 0.64 10*3/uL Normal 0.10 - 1.0 0 [facility] Comment on above: Performed By: #### C BCDF #### [facility] [address] [place] [address] Monocytes/100 WBC (Bld) 6.8 % Normal 2.0 - 10.0 [facility] Comment on above: Performed By: #### C BCDF #### [facility] [address] [place] [address] Neutrophils (Bld) [#/Vol] 5.72 10*3/uL Normal 1.20 - 7.70 [facility] Comment on above: Performed By: #### C BCDF #### [facility] [address] [place] [address] Neutrophils/100 WBC (Bld) 60.9 % Normal 40.0 - 80.0 [facility] Comment on above: Performed By: #### C BCDF #### [facility] [address] [place] [address] Platelets (Bld) [#/Vol] 241 10*3/uL Normal 150 - 450 [facility] Comment on above: Performed By: #### C BCDF #### [facility] [address] [place] [address] RBC 5.30 x10E12/L High 4.00 - 5.20 [facility] Comment on above: Performed By: #### C BCDF #### [facility] [address] [place] [address] WBC (Bld) [#/Vol] 9.4 10*3/uL Normal 4.4 - 11.3 [facility] Comment on above: Performed By: #### C BCDF #### [facility] [address] [place] [address] Complete Blood Count + Diffe rentialon 04-10-2021 Basophils/100 WBC (Bld) 0.4 % 0.0 - 2.0 M G-OBGYN-Ri sman 310 IVF Work Phone: Erythrocyte distribution width (RBC) [Ratio] 16.0 % above high threshold See Below MG-OBGYN-Ri sman 310 IVF Work Phone: Comment on above: Reference Range: 11. 5 - 14.5 Hematocrit (Bld) [Volume fraction] 42.3 % See Below MG-OBGYN-Ri sman 310 IVF Work Phone: Comment on above: Reference Range: 36. 0 - 46.0 Hemoglobin (Bld) [Mass/Vol] 13.3 g/dL See Below MG-OBGYN-Ri sman 310 IVF Work Phone: [phone] Comment on above: Reference Range: 12. 0 - 16.0 Lymphocytes/100 WBC (Bld) 29.0 % See Below MG-OBGYN-Ri sman 310 IVF Work Phone: [phone] Comment on above: Reference Range: 13. 0 - 44.0 MCHC (RBC) [Mass/Vol] 31.4 g/dL below low threshold See Below MG-OBGYN-Ri sman 310 IVF Work Phone: [phone] Comment on above: Reference Range: 32. 0 - 36.0 MCV (RBC) [Entitic vol] 80 fL 80 - 100 M G-OBGYN-Ri sman 310 IVF Work Phone: [phone] Monocytes/100 WBC (Bld) 6.8 % 2.0 - 10.0 M G-OBGYN-Ri sman 310 IVF Work Phone: [phone] Neutrophils/100 WBC (Bld) 60.9 % See Below MG-OBGYN-Ri sman 310 IVF Work Phone: [phone] Comment on above: Reference Range: 40. 0 - 80.0 Platelets (Bld) [#/Vol] 241 10*3/uL 150 - 450 MG-OBGYN-Ri sman 310 IVF Work Phone: [phone] RBC (Bld) [#/Vol] 5.30 {x10E12/L} above high threshold See Below MG-OBGYN-Ri sman 310 IVF Work Phone: [phone] Comment on above: Reference Range: 4.0 0 - 5.20 WBC (Bld) [#/Vol] 9.4 10*3/uL 4.4 - 11.3 MG-OBG YN-Ri sman 310 IVF Work Phone: [phone] Complete Blood Count + Differential 0.04 {x10E9/L} See Below MG-OBGYN-Ri sman 310 IVF Work Phone: [phone] Comment on above: Reference Range: 0.0 0 - 0.10 Complete Blood Count + Differential 0.25 {x10E9/L} See Below MG-OBGYN-Ri sman 310 IVF Work Phone: Comment on above: Reference Range: 0.0 0 - 0.70 Complete Blood Count + Differential 0.64 {x10E9/L} See Below MG-OBGYN-Ri sman 310 IVF Work Phone: Comment on above: Reference Range: 0.1 0 - 1.00 Complete Blood Count + Differential 2.72 {x10E9/L} See Below MG-OBGYN-Ri sman 310 IVF Work Phone: Comment on above: Reference Range: 1.2 0 - 4.80 Complete Blood Count + Differential 5.72 {x10E9/L} See Below MG-OBGYN-Ri sman 310 IVF Work Phone: Comment on above: Reference Range: 1.2 0 - 7.70 Complete Blood Count + Differential 2.7 % 0.0 - 6.0 MG-OBGYN-Ri sman 310 IVF Work Phone: Complete Blood Count + Differential 0.2 % 0.0 - 0.9 MG-OBGYN-Ri sman 310 IVF Work Phone: Comment on above: Immature Granulocyte Count (IG) includes promyelocytes, myelocytes and metamyelocytes but does not include bands. Percent differential counts (%) should be interpreted in the context of the absolute cell counts (cells/L). HCG, Beta Quantitativeon HCG.beta subunit Qn 69 m[IU]/mL Abnormal MG-O BGYN-Ri sman 310 IVF Work Phone: Comment on above: Low-level positive H CG results can be seen in early , in cody- or post-menopausal females due to normal pituitary HCG production, or with analytic interference. Repeat testing in 48-72 hours can aid in assessing for as results should double in this time period. FSH measurement is recommended in cody- or post-menopausal females as concurrent elevation of FSH can support pituitary production as the source of the HCG elevation.. Total HCG measurement is performed using the [employer] Access Immunoassay which detects intact HCG and free beta HCG subunit. This test is not indicated for use as a tumor marker. HCG testing is performed using a different test methodology at [facility] than other [facility]. Direct result comparison should only be made within the same method. REF VALUESNON FEMALE <5MALES <5 HCG,BETA-QUANTITATIVEon 08-0 HCG,BETA-QUANTITATIVE 69 mIU/mL Invalid Interpretation Code [facility] Comment on above: Result Comment: Low- level positive HCG results can be seen in early , in cody- or post-menopausal females due to normal pituitary HCG production, or with analytic interference. Repeat testing in 48-72 hours can aid in assessing for as results should double in this time period. FSH measurement is recommended in cody- or post-menopausal females as concurrent elevation of FSH can support pituitary production as the source of the HCG elevation. . Total HCG measurement is performed using the [employer] Access Immunoassay which detects intact HCG and free beta HCG subunit. This test is not indicated for use as a tumor marker. HCG testing is performed using a different test methodology at [facility] than other [facility]. Direct result comparison should only be made within the same method. REF VALUES NON FEMALE <5 MALES <5 Performed By: #### H CGQU #### [facility] [address] [id number] HCG,URINEon 04-10-2021 Beta HCG ( test) Ql (U) Negative Normal Negative [facility] Comment on above: Performed By: #### H CGU #### [facility] [address] [place] [address] HEPATIC FUNCTION PANELon Albumin [Mass/Vol] 3.8 g/dL Normal 3.4 - 5.0 [facility] Comment on above: Performed By: #### H EPFP #### [facility] [address] [place] [address] ALP [Catalytic activity/Vol] 93 U/L Normal 33 - 110 [facility] Comment on above: Performed By: #### H EPFP #### [facility] [address] [id number] ALT [Catalytic activity/Vol] 35 U/L Normal 7 - 45 [facility] Comment on above: Result Comment: Maddie ents treated with Sulfasalazine may generate falsely decreased results for ALT. Performed By: #### H EPFP #### [facility] [address] [place] [address] AST [Catalytic activity/Vol] 26 U/L Normal 9 - 39 [facility] Comment on above: Performed By: #### H EPFP #### [facility] [address] [place] [address] Bilirubin [Mass/Vol] 0.3 mg/dL Normal 0.0 - 1.2 [facility] Comment on above: Performed By: #### H EPFP #### [facility] [address] [place] [address] Bilirubin.indirect [Mass/Vol] 0.1 mg/dL Normal 0.0 - 0.3 [facility] Comment on above: Performed By: #### H EPFP #### [facility] [address] [place] [address] Protein [Mass/Vol] 7.3 g/dL Normal 6.4 - 8.2 [facility] Comment on above: Performed By: #### H EPFP #### [facility] [address] [id number] Hepatic Function Panelon Albumin BCP dye [Mass/Vol] 3.8 g/dL 3.4 - 5.0 MG-OBGYN-Ri sman 310 IVF Work Phone: [phone] ALP [Catalytic activity/Vol] 93 U/L 33 - 110 MG-OBGYN-Ri sman 310 IVF Work Phone: [phone] ALT With P-5'-P [Catalytic activity/Vol] 35 U/L 7 - 45 MG-OBGYN-Ri sman 310 IVF Work Phone: [phone] Comment on above: Patients treated wit h Sulfasalazine may generate falsely decreased results for ALT. AST With P-5'-P [Catalytic activity/Vol] 26 U/L 9 - 39 MG-OBGYN-Ri sman 310 IVF Work Phone: [phone] Bilirubin [Mass/Vol] 0.3 mg/dL 0.0 - 1.2 MG-O BGYN-Ri sman 310 IVF Work Phone: [phone] Bilirubin.direct [Mass/Vol] 0.1 mg/dL 0.0 - 0.3 MG-OBGYN-Ri sman [address] IVF Work Phone: [phone] Protein [Mass/Vol] 7.3 g/dL 6.4 - 8.2 MG-OBG YN-Ri sman 310 IVF Work Phone: [phone] Laboratory - Chemistry and C hemistry - challengeon 04-10-2021 Anion gap [Moles/Vol] 12 mmol/L 10 - 20 MG- OBGYN-Ri sman 310 IVF Work Phone: [phone] Calcium [Mass/Vol] 8.8 mg/dL 8.6 - 10.3 MG-OBG YN-Ri sman 310 IVF Work Phone: [phone] Chloride [Moles/Vol] 108 mmol/L above high threshold 98 - 107 MG-OBGYN-Ri sman 310 IVF Work Phone: [phone] CO2 [Moles/Vol] 25 mmol/L 21 - 32 MG-OBGYN- Ri sman 310 IVF Work Phone: [phone] Creatinine [Mass/Vol] 0.69 mg/dL See Below MG- OBGYN-Ri sman 310 IVF Work Phone: [phone] Comment on above: Reference Range: 0.5 0 - 1.05 Glucose [Mass/Vol] 89 mg/dL 74 - 99 MG-OBG YN-Ri sman 310 IVF Work Phone: [phone] Potassium [Moles/Vol] 4.1 mmol/L 3.5 - 5.3 MG- OBGYN-Ri sman 310 IVF Work Phone: [phone] Sodium [Moles/Vol] 141 mmol/L 136 - 145 MG-OBG YN-Ri sman 310 IVF Work Phone: [phone] Urea nitrogen [Mass/Vol] 11 mg/dL 6 - 23 MG-OBGYN-Ri sman 310 IVF Work Phone: [phone] No Panel Informationon 04-10 >60 >60 MG-OBGYN-Ri sman 310 IVF Work Phone: Comment on above: CALCULATIONS OF DUY MATED GFR ARE PERFORMED USING THE MDRD STUDY EQUATION FOR THE IDMS-TRACEABLE CREATININE METHODS. CLIN CHEM 2007;53:766-72 Provider Note - ED v2on Provider Note - ED v2 Provider Note - ED v2: Chart Review: ED NOTES ED NOTES: HPI: [] 31-year-old white female with a history of asthma, GERD, antiphospholipid syndrome multiple miscarriages currently LMP was March 01 today comes in abdominal cramping. 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 Over the last 2 days she has had increasing cramping. She denies any vaginal spotting bleeding or discharge. No back or flank pain. No nausea vomiting no fever no chills no cough congestion. She was on Lovenox up until couple days ago. She denies any hematemesis melena medicated no syncope or near syncope. She is 4 para 0 miscarriage x3. Past history: GERD, asthma, antiphospholipid, multiple miscarriages, hiatal hernia, insulin resistance Social: Patient denies tobacco alcohol drug abuse. REVIEW OF SYSTEMS: GENERAL.: No weight loss, fatigue, anorexia, insomnia, fever. EYES: No vision loss, double vision, drainage, eye pain. ENT: No pharyngitis, dry mouth. CARDIOPULMONARY: No chest pain, palpitations, syncope, near syncope. No shortness of breath, cough, hemoptysis. GI: No abdominal pain, change in bowel habits, melena, hematemesis, hematochezia, nausea, vomiting, diarrhea. Positive pelvic cramping : No discharge, dysuria, frequency, urgency, hematuria. MS: No limb pain, joint pain, joint swelling. SKIN: No rashes. PSYCH: No depression, anxiety, suicidality, homicidality. Review of systems is otherwise negative unless stated above or in history of present illness. Social history, family history, allergies reviewed. PHYSICAL EXAM: GENERAL: Vitals noted, no distress. Alert and oriented x 3. Non-toxic. High BMI EENT: TMs clear. Posterior oropharynx unremarkable. No meningismus. No LAD. NECK: Supple. Nontender. No midline tenderness. CARDIAC: Regular, rate, rhythm. No murmurs rubs or gallops. No JVD PULMONARY: Lungs clear bilaterally with good aeration. No wheezes rales or rhonchi. No respiratory distress. ABDOMEN: Soft, nonsurgical. Nontender. No peritoneal signs. Normoactive bowel sounds. No pulsatile masses. EXTREMITIES: No peripheral edema. Negative Homans bilaterally, no cords. 2+ bounding pulses well perfused. SKIN: No rash. Intact. Ecchymosis bruising anterior abdominal wall from Lovenox shots. No palpable hematomas. NEURO: Grossly intact detailed exam deferred. MEDICAL DECISION MAKING: CBC with chemistries unremarkable serum hCG is about 69 which is rising slowly. Rh is positive. Pelvic ultrasound shows no IUP, no obvious ectopic , no adnexal masses, very trace free fluid. Treatment in ED: Patient remained stable hemodynamic. Remains pain-free with no spotting or bleeding with minimal pain no requiring any treatment. Impression: First semester early Plan: Discharge home, continue close monitoring of the serum hCG, repeat ultrasound in a week's time, close outpatient follow-up and of course return precautions explained detail. HISTORY OF PRESENTING ILLNESS AMBIKA is a 31 year old Female and was seen by me at 10-Apr-2021 15:58 for a chief complaint of problem . Other complaints include: Patient presenting to ED via private vehicle from home with co severe intense cramping, slow to rise hcg levels; denies bleeding, but OB concerned for r/o ectopic ; states ; m3; 8/10 pain currently; states she has been taking ibuprofen last around 12; states around 4-5 weeks per pt (1). Triage Information: Most recent Vital Sign Value Date Temp (F): 97.9 04-10-2021 15:41 Temp (C): 36.6 04-10-2021 15:41 Heart Rate (beats/min): 100 04-10-2021 15:41 Respirations (breaths/min): 14 04-10-2021 15:41 SpO2 (%): 100 04-10-2021 15:41 BP Systolic (mm Hg): 140 04-10-2021 15:41 BP Diastolic (mm Hg): 87 04-10-2021 15:41 PAST MEDICAL HISTORY ATTESTATION: I have reviewed and confirmed nurse's/medic's notes for patient's medications, allergies, and medical, surgical, family and social history ALLERGIES/INTOLERANCES: Intolerance Allergen: Compazine Type: Drug Reaction: Anxiety HEALTH HISTORY: No documented data. OUTPATIENT MEDICATIONS: Home Medications Review Status for Reconciliation: N/A Med Status: N/A No documented data. SIGNIFICANT EVENTS: Past Medical History Description:asthma Description:GERD Description:sliding hiatal hernia Description:insulin resistance PLASTIC TUBING INSULATION SUPERVISOR: Is : yes(1) Is : no(1) CLINICAL IMPRESSION Diagnosis/Annotation: ED Dx Name:First trimester Code:Z34.91 Disposition: discharged Type: home ATTESTATION CRITICAL CARE TIME Is this a critically ill patient: no Electronic Signatures: Aga Hagen) (Signed 10-Apr-2021 20:17) Authored: ED Notes, HPI, PMH, PE, Clinical Impression, Attestation, Chart Review, Sco (more content not included)... Normal [facility] Radiologyon 04-10-2021 US Pelvis transvaginal Normal [facility] -OBGYN-Ri sman 310 IVF Work Phone: Risk Screen - Adult Emergenc yon 04-10-2021 Risk Screen - Adult Emergency Preferred Language: Preferred Language: Preferred Language for Discussing Health Care (patient/designee)Jaya cervantes Advanced Directives: Advance Directive/DNRno Family Violence Adult: Abuse Screen: Are you or have you been threatened or abused physically, emotionally, or sexually by anyoneno Learning Assessment (Patient): Learning Assessment (Patient): Patient is Able to be Assessed for Learningyes Factors Influencing Readiness to Learnacuteness of illness Factors that Impact Ability to Learnacuteness of illness Devices/Methods Used to Communicatenone Learning Preferencesindividual instruction; skill demonstration; verbal instruction; written material Cultural Considerationsnone Developmental Considerationsnone Presybeterian Considerationsnone Learning Assessment (Other Learner): Learning Assessment (Other Learner): Other learner availableno Pressure Injury/TB/Substance: Pressure Injury: Do you have a coughno Smoking Statusnever smoker Admission Risk Screen: Significant IndicatorsComplete CAGE: CAGE: Is this an injured patient at a Trauma Center ([facility] /[place]): no Electronic Signatures: Landy Salvador (RN) (Signed 10-Apr-2021 15:44) Authored: Preferred Language, Advanced Directives, Family Violence Adult, Learning Assessment (Patient), Learning Assessment (Other Learner), Pressure Injury/TB/Substance, Pressure Injury, CAGE Last Updated: 10-Apr-2021 15:44 by Landy Salvador (RN) Normal [facility] TRANS VAG PREG UTERUSon 08-0 TRANS VAG PREG UTERUS Patient Name: AMBIKA BROWN STUDY: TRANS VAG PREG UTERUS; 04/10/2021 7:16 pm INDICATION: abd pain quant 65 ro ectopic vs miscarriage. COMPARISON: None. ACCESSION NUMBER(S): [id number] ORDERING CLINICIAN: AGA HAGEN TECHNIQUE: Grayscale and color Doppler transabdominal and transvaginal images of the pelvis. Static images and 2 cine clips for ovaries are provided for remote interpretation. FINDINGS: Uterus: Measuring 6.5 x 4.2 x 4.8 cm. The endometrium thickness measures 0.7 cm. There is trace fluid within the endometrium. No sac-like structure seen. There is a nabothian cyst present. Ovaries: The right ovary not visualized. The left ovary 3.3 x 1.7 x 2.2 cm there is appropriate vascularity present on color and Doppler evaluation. There is a corpus luteum cyst measuring 1.2 x 0.8 x 1.0 cm. Additionally there are follicles also present. No adnexal mass is seen. Cul de sac: No free fluid. IMPRESSION: No intrauterine sac-like structure seen. Trace fluid within the endometrial cavity. Right ovary not visualized no evidence of right adnexal mass. Left ovary demonstrate appropriate vascularity/perfusion on color and Doppler evaluation. A corpus luteum cyst is present in the left ovary. Continue follow-up is advised with beta HCG correlation. Electronically signed by: MARCELA DELGADO MD Normal [facility] Triage - EDon 04-10-2021 Triage - ED Quick Triage: Are You yes Are You Currently Breastfeedingno The patient and/or guardian verbally acknowledges placement for services into the following (when Urgent Care Service hours are operating):emergency department Chart Review: PRIMARY ASSESSMENT AMBIKA BROWN's primary assessment is Within Defined Limits. The airway is open and patent. Breathing spontaneous and unlabored with clear breath sounds bilaterally. Circulation is normal with good peripheral pulses. Skin is warm and dry and color is normal for race. ARRIVAL INFORMATION Mode of Arrival: private vehicle CHIEF COMPLAINT AMBIKA BROWN is a Female patient with a chief complaint of problem. Onset of the Complaint: 10-Apr-2021 Other Complaints: Patient presenting to ED via private vehicle from home with co severe intense cramping, slow to rise hcg levels; denies bleeding, but OB concerned for r/o ectopic ; states ; m3; 8/10 pain currently; states she has been taking ibuprofen last around 12; states around 4-5 weeks per pt Triage Date/Time: 10-Apr-2021 15:41 DAPHNE: 2 Pain Rating (0-10): 8 = Severe Pain location: abd cramping Vital Signs: Temperature: 97.9F ( 36.6C) Blood Pressure: 140/87 Mean: Heart Rate: 100 Respiratory Rate: 14 Pulse Oximetry: 100% on room air, no respiratory support. Height: 5 feet 7 inches. 170.1 CM Weight: 320.7 pounds. Calculated 145.5 kg. Calculated BMI (kg/m2): 50.286 Calculated BSA (m2) 2.62 Milligan Coma Scale: Best Eye Response: (E4) spontaneous Best Motor Response: (M6) obeys commands Best Verbal Response: (V5) oriented Milligan Score: 15 Allergies: yes Mask applied: yes PLASTIC TUBING INSULATION SUPERVISOR History: Patient has homicidal thoughts: no Symptoms Are POSITIVE For: abdominal cramp. Symptoms Are Negative For: back pain, edema, fever, vaginal itching, nausea, vaginal bleeding and vaginal discharge. Risk Screens Suicide Risk Screen In the Past Month: Have you wished you were or wished you could go to sleep and not wake up no In the Past Month: Have you had any actual thoughts of killing yourself no In Your Lifetime: Have you ever done anything, started to do anything, or prepared to do anything to end your life no Galindo Fall Scale Screening Has the patient fallen before (or is the patient in the ED as a result of a fall) has not had a fall Does the patient have an impaired gait does not have impaired gait Is the patient cognitively impaired not cognitively impaired Interventions: Mateo Fall Interventions: MODERATE INTERVENTIONS: *Low Interventions Plus: * falls risk band/sticker applied to patient, *yellow non-skid footwear, *instruct to call for assistance before getting out of bed, *bed/chair/bedside commode/toilet alarms, *sensory devices/ambulatory aides available and in reach, *medications reviewed for potential side effects and care planning. TRAVEL HISTORY Travel History Coronavirus Screening: no exposure or symptoms Travel Exposure History: NO travel to International locations in the past 30 days PAIN Pain Scale Used: JANELLE Pain Rating (0-10): 8 = Severe Past Medical History: Past Medical History Reviewedyes Electronic Signatures: Landy Salvador (RN) (Signed 10-Apr-2021 15:44) Entered: Risk Screens, Pain, ABCD, Travel History, Chart Review, Scores, Past Medical History Authored: Quick Triage, Risk Screens, Pain, ABCD, Travel History, Chart Review, Scores, Past Medical History Last Updated: 10-Apr-2021 15:44 by Landy Salvador (RN) Normal [facility] UA MICROSCOPICon 04-10-2021 BACTERIA 1+ /HPF Invalid Interpretation Code [facility] Comment on above: Performed By: #### U AMIC #### [facility] [address] [place] [address] Mucus Ql (Urine sed) 3+ /LPF Normal [facility] Comment on above: Performed By: #### U AMIC #### [facility] [address] [place] [address] RBC none Normal 0-5 [facility] Comment on above: Performed By: #### U AMIC #### [facility] [address] [place] [address] SQUAMOUS EPITH. CELLS 3 /HPF Normal [facility] Comment on above: Performed By: #### U AMIC #### [facility] [address] [place] [address] TRANSITIONAL EPITH.CELLS <1 Normal [facility] Comment on above: Performed By: #### U AMIC #### [facility] [address] [place] [address] WBC 7 /HPF Invalid Interpretation Code 0-5 [facility] Comment on above: Performed By: #### U AMIC #### [facility] [address] [place] [address] URINALYSISon 04-10-2021 Appearance (U) HAZY Normal CLEAR [facility] Comment on above: Performed By: #### U A #### [facility] [address] [place] [address] Bilirubin Ql (U) Negative Normal NEGATIVE [facility] Comment on above: Performed By: #### U A #### [facility] [address] [place] [address] Color (U) YELLOW Normal STRAW,YELLOW [facility] Comment on above: Performed By: #### U A #### [facility] [address] [place] [address] Glucose Ql (U) Negative Normal NEGATIVE [facility] Comment on above: Performed By: #### U A #### [facility] [address] [place] [address] Hemoglobin Ql (U) Negative Normal NEGATIVE [facility] Comment on above: Performed By: #### U A #### [facility] [address] [place] [address] Ketones Ql (U) Negative Normal NEGATIVE [facility] Comment on above: Performed By: #### U A #### [facility] [address] [place] [address] Leukocyte esterase Test strip Ql (U) SMALL(1+) Invalid Interpretation Code NEGATIVE [facility] Comment on above: Performed By: #### U A #### [facility] [address] [place] [address] Nitrite Ql (U) Negative Normal NEGATIVE [facility] Comment on above: Performed By: #### U A #### [facility] [address] [place] [address] pH (U) 6.0 [pH] Normal 5.0 - 8.0 [facility] Comment on above: Performed By: #### U A #### [facility] [address] [place] [address] Protein Ql (U) Negative Normal NEGATIVE [facility] Comment on above: Performed By: #### U A #### [facility] [address] [place] [address] Specific gravity (U) [Rel density] 1.019 Normal 1.005 - 1.035 [facility] Comment on above: Performed By: #### U A #### [facility] [address] [place] [address] Urobilinogen (U) [Mass/Vol] mg/dL Normal 0.0 - 1.9 [facility] Comment on above: Performed By: #### U A #### [facility] [address] [place] [address] Urinalysison 04-10-2021 Color (U) YELLOW See Below [facility] IVF Work Phone: [phone] Comment on above: Reference Range: STR AW,YELLOW Glucose Ql (U) Negative NEGATIVE [facility] IVF Work Phone: [phone] Ketones Ql (U) Negative NEGATIVE [facility] IVF Work Phone: [phone] Leukocyte esterase Test strip Ql (U) SMALL(1+) Abnormal NEGATIVE [facility] IVF Work Phone: [phone] pH (U) 6.0 [pH] 5.0 - 8.0 [facility] IVF Work Phone: [phone] Protein (U) [Mass/Vol] Negative NEGATIVE [facility] IVF Work Phone: [phone] RBC (U) [#/Vol] Negative NEGATIVE [facility]- Ri sm[facility] 310 IVF Work Phone: [phone] Specific gravity (U) [Rel density] 1.019 1 See Below [facility] 310 IVF Work Phone: [phone] Comment on above: Reference Range: 1.0 05 - 1.035 Urinalysis Negative NEGATIVE [facility] IV[facility] Work Phone: [phone] Urinalysis <2.0 0.0 - 1.9 [facility] IVF Work Phone: [phone] Urinalysis HAZY CLEAR [facility] IVF Work Phone: [phone] Urinalysis, Microscopicon Urinalysis, Microscopic 3+ M [facility]-OB[facility]N-Ri sm[facility] IVF Work Phone: [phone] Urinalysis, Microscopic 1+ Abnormal [facility] sm[facility] 310 IVF Work Phone: [phone] Urinalysis, Microscopic <1 [facility]OB[facility]i sm[facility] 310 IVF Work Phone: [phone] Urinalysis, Microscopic 3 {/HPF} M [facility]-OBGYN-Ri sman 310 IVF Work Phone: [phone] Urinalysis, Microscopic none 0-5 [facility]OBGYN-Ri sman 310 IVF Work Phone: [phone] Urinalysis, Microscopic 7 {/HPF} Abnormal 0-5 M [facility]-OBGYN-Ri sman 310 IVF Work Phone: [phone] Urine Teston 04-10 HCG ( test) Ql (U) Negative Negative [facility] sm[facility] 310 IVF Work Phone: [phone] HCG, Beta Quantitativeon HCG.beta subunit Qn 56 m[IU]/mL Abnormal [facility] B[facility]i sm[facility] 310 IVF Work Phone: [phone] Comment on above: Low-level positive H CG results can be seen in early , in cody- or post-menopausal females due to normal pituitary HCG production, or with analytic interference. Repeat testing in 48-72 hours can aid in assessing for as results should double in this time period. FSH measurement is recommended in cody- or post-menopausal females as concurrent elevation of FSH can support pituitary production as the source of the HCG elevation.. Total HCG measurement is performed using the [employer] Access Immunoassay which detects intact HCG and free beta HCG subunit. This test is not indicated for use as a tumor marker. HCG testing is performed using a different test methodology at [facility] than other [facility]. Direct result comparison should only be made within the same method. REF VALUESNON FEMALE <5MALES <5 HCG,BETA-QUANTITATIVEon 07-3 HCG,BETA-QUANTITATIVE 56 mIU/mL Abnormal [facility] Comment on above: Result Comment: Low- level positive HCG results can be seen in early , in cody- or post-menopausal females due to normal pituitary HCG production, or with analytic interference. Repeat testing in 48-72 hours can aid in assessing for as results should double in this time period. FSH measurement is recommended in cody- or post-menopausal females as concurrent elevation of FSH can support pituitary production as the source of the HCG elevation. . Total HCG measurement is performed using the [employer] Access Immunoassay which detects intact HCG and free beta HCG subunit. This test is not indicated for use as a tumor marker. HCG testing is performed using a different test methodology at [facility] than other [facility]. Direct result comparison should only be made within the same method. REF VALUES NON FEMALE <5 MALES <5 Performed By: #### H CGQU #### [address] [address] HCG, Beta Quantitativeon HCG.beta subunit Qn 57 m[IU]/mL Abnormal [facility] BGYN-Ri sman 310 IVF Work Phone: Comment on above: Low-level positive H CG results can be seen in early , in cody- or post-menopausal females due to normal pituitary HCG production, or with analytic interference. Repeat testing in 48-72 hours can aid in assessing for as results should double in this time period. FSH measurement is recommended in cody- or post-menopausal females as concurrent elevation of FSH can support pituitary production as the source of the HCG elevation.. Total HCG measurement is performed using the [employer] Access Immunoassay which detects intact HCG and free beta HCG subunit. This test is not indicated for use as a tumor marker. HCG testing is performed using a different test methodology at [facility] than other [facility]. Direct result comparison should only be made within the same method. REF VALUESNON FEMALE <5MALES <5 HCG,BETA-QUANTITATIVEon 07-2 HCG,BETA-QUANTITATIVE 57 mIU/mL Abnormal [facility] Comment on above: Result Comment: Low- level positive HCG results can be seen in early , in cody- or post-menopausal females due to normal pituitary HCG production, or with analytic interference. Repeat testing in 48-72 hours can aid in assessing for as results should double in this time period. FSH measurement is recommended in cody- or post-menopausal females as concurrent elevation of FSH can support pituitary production as the source of the HCG elevation. . Total HCG measurement is performed using the [employer] Access Immunoassay which detects intact HCG and free beta HCG subunit. This test is not indicated for use as a tumor marker. HCG testing is performed using a different test methodology at [facility] than other [facility]. Direct result comparison should only be made within the same method. REF VALUES NON FEMALE <5 MALES <5 Performed By: #### H CGQU #### [address] [place] [address] HCG, Beta Quantitativeon HCG.beta subunit Qn 21 m[IU]/mL Abnormal [facility] BGYN-Ri sman 310 IVF Work Phone: Comment on above: Low-level positive H CG results can be seen in early , in cody- or post-menopausal females due to normal pituitary HCG production, or with analytic interference. Repeat testing in 48-72 hours can aid in assessing for as results should double in this time period. FSH measurement is recommended in cody- or post-menopausal females as concurrent elevation of FSH can support pituitary production as the source of the HCG elevation.. Total HCG measurement is performed using the [employer] Access Immunoassay which detects intact HCG and free beta HCG subunit. This test is not indicated for use as a tumor marker. HCG testing is performed using a different test methodology at [facility] than other [facility]. Direct result comparison should only be made within the same method. REF VALUESNON FEMALE <5MALES <5 HCG,BETA-QUANTITATIVEon - HCG,BETA-QUANTITATIVE 21 mIU/mL Abnormal [facility] Comment on above: Result Comment: Low- level positive HCG results can be seen in early , in cody- or post-menopausal females due to normal pituitary HCG production, or with analytic interference. Repeat testing in 48-72 hours can aid in assessing for as results should double in this time period. FSH measurement is recommended in cody- or post-menopausal females as concurrent elevation of FSH can support pituitary production as the source of the HCG elevation. . Total HCG measurement is performed using the [employer] Access Immunoassay which detects intact HCG and free beta HCG subunit. This test is not indicated for use as a tumor marker. HCG testing is performed using a different test methodology at [facility] than other [facility]. Direct result comparison should only be made within the same method. REF VALUES NON FEMALE <5 MALES <5 Performed By: #### H CGQU #### [facility] [address] [place] [address] HCG, Beta Quantitativeon HCG.beta subunit Qn 10 m[IU]/mL Abnormal [facility] BGYN-Ri sman 310 IVF Work Phone: Comment on above: Low-level positive H CG results can be seen in early , in cody- or post-menopausal females due to normal pituitary HCG production, or with analytic interference. Repeat testing in 48-72 hours can aid in assessing for as results should double in this time period. FSH measurement is recommended in cody- or post-menopausal females as concurrent elevation of FSH can support pituitary production as the source of the HCG elevation.. Total HCG measurement is performed using the [employer] Access Immunoassay which detects intact HCG and free beta HCG subunit. This test is not indicated for use as a tumor marker. HCG testing is performed using a different test methodology at [facility] than other [facility]. Direct result comparison should only be made within the same method. REF VALUESNON FEMALE <5MALES <5 HCG,BETA-QUANTITATIVEon 07-2 HCG,BETA-QUANTITATIVE 10 mIU/mL Abnormal [facility] Comment on above: Result Comment: Low- level positive HCG results can be seen in early , in cody- or post-menopausal females due to normal pituitary HCG production, or with analytic interference. Repeat testing in 48-72 hours can aid in assessing for as results should double in this time period. FSH measurement is recommended in cody- or post-menopausal females as concurrent elevation of FSH can support pituitary production as the source of the HCG elevation. . Total HCG measurement is performed using the [employer] Access Immunoassay which detects intact HCG and free beta HCG subunit. This test is not indicated for use as a tumor marker. HCG testing is performed using a different test methodology at [facility] than other [facility]. Direct result comparison should only be made within the same method. REF VALUES NON FEMALE <5 MALES <5 Performed By: #### H CGQU #### [facility] [address] [place] [address] Chart Updateon 12-30-2020 Chart Update Chart Update Called patient to let her know the message from Dr. Sepulveda. She will probably add it in January. Message Recorded as Task Date: 12/30/2020 03:15 PM, Created By: Kemi Mariscal Task Name: Call Back Assigned To: Kemi Mariscal Regarding Patient: AMBIKA BROWN, Status: Active Comment: Kemi Mariscal - 30 Dec 2020 3:15 PM TASK CREATED SHe is about to start 3rd round of letrozole. If she wishes ok to add in IUI. she wanted to know. If not ok to do 6 rounds of letrozole. she is 30, RPL Umair Sepulveda - 30 Dec 2020 4:47 PM TASK REPLIED TO: Previously Assigned To Umair Sepulveda Yes, add IUI- may decrease time to . Signatures Electronically signed by : JAVI Borges; Dec 30 2020 4:51PM EST (Author) Normal [facility] Chart Update Chart Update Called patient to discuss. She has taken 2 cycles of letrozole then took 2 months off because her mom and grandma . she is ready to start back up with letrozole. she wanted to ensure this is ok. let her know yes. she wants to know next steps after this round. will touch base with Dr. Sepulveda. Did review IUI with her as probable next step. Message Recorded as Task Date: 12/30/2020 03:00 PM, Created By: Sadie Lanier Task Name: Call Back Assigned To: Kemi Mariscal Regarding Patient: AMBIKA BROWN, Status: Active Comment: Sadie Lanier - 30 Dec 2020 3:00 PM TASK CREATED Caller: Self; Pt is calling in regards to RX questions Jared Villar - 30 Dec 2020 3:01 PM TASK REASSIGNED: Previously Assigned To Jared Villar Signatures Electronically signed by : JAVI Borges; Dec 30 2020 3:14PM EST (Author) Normal [facility] PROGESTERONEon 10-18-2020 PROGESTERONE 18.4 ng/mL Normal [facility] Comment on above: Result Comment: REF VALUES MALE <0.3- 1.2 FOLLICULAR PHASE <0.3- 1.4 LUTEAL PHASE 3.3-25.6 MID-LUTEAL PHASE 4.4-28.0 POSTMENOPAUSAL <0.3- 0.7 FEMALES: 1ST TRIMESTER 11.2- 90.0 2ND TRIMESTER 25.6- 89.4 3RD TRIMESTER 48.4-422.5 . Patients receiving DHEA-S supplements may show false elevation of progesterone for results near 1.0 ng/mL. Contact laboratory at [phone] if alternative testing is needed. Performed By: #### P MICK #### [facility] [address] [place] [address] Progesterone, Serumon 2020 Progesterone [Mass/Vol] 18.4 ng/mL M G-OBGYN-Ri sman 310 IVF Work Phone: Comment on above: REF VALUESMALE <0.3- 1.2 FOLLICULAR PHASE <0.3- 1.4 LUTEAL PHASE 3.3-25.6 MID-LUTEAL PHASE 4.4-28.0POSTMENOPAUSAL <0.3- 0.7 FEMALES: 1ST TRIMESTER 11.2- 90.0 2ND TRIMESTER 25.6- 89.4 3RD TRIMESTER 48.4-422.5 .Patients receiving DHEA-S supplements may show false elevation ofprogesterone for results near 1.0 ng/mL. Contact laboratory [phone] if alternative testing is needed. Chart Updateon 07-30-2020 Chart Update Chart Update Phone: Pt with RPLx3. Discussed findings Pt has + lupus anticoagulant in November, Mar, and Jul assays c/w antiphospholipid syndrome. 's chromosomes pending. Plan: 1. Attempt with LH timed sex; ASA 81 mg bid 2. With missed period and +hCG add progesterone 200 mg bid vaginally; serial hCG 3. Start Lovenox 40 mg sq daily and get early ultrasound for location at 5 weeks. Reina Sepulveda Signatures Electronically signed by : Umair Sepulveda MD; Jul 30 2020 11:09AM EST (Author) Normal [facility] LUPUS ANTICOAG. WITH INTERPR ETATION[ARRIAZA]on 07-26-2020 [place] INTERPRETATION SEE BELOW Normal [place] n/Po [facility] Comment on above: Result Comment: Ther e is evidence supportive of the presence of a lupus anticoagulant in one or both of these assays. Assay interferences may occur in the presence of factor deficiency/inhibitor and/or anticoagulants. For patients on anti-Vitamin K therapy, repeating DRVVT testing might be indicated when the patient is off anti-vitamin K therapy. The DRVVT assay contains a heparin neutralizer up to 1.0 U/mL. Higher concentrations of heparin may cause interferences. SCT results are not affected by UF heparin up to 0.5 U/mL and LMW Heparin up to 1.0 U/mL. Higher concentrations of heparin may cause interferences. To evaluate the possibility that the current results represent a transient lupus anticoagulant consider repeat testing in greater than 12 weeks if clinically indicated and not previously performed. Correlation with clinical findings and clinical history is necessary to assess significance of results in an individual patient. Performed By: #### L AI #### [facility] [address] [place] [address] SCT CONFIRMATION 1.17 RATIO Normal [facility] Comment on above: Performed By: #### L AI #### [facility] [address] [place] [address] SCT SCREEN 1.33 RATIO Normal [facility] Comment on above: Performed By: #### L AI #### [facility] [address] [place] [address] SCT TEST RATIO 1.14 RATIO Normal <=1.16 [facility]/P o [facility] Comment on above: Performed By: #### L AI #### [facility] [address] [place] [address] DRVVT CONFIRMATION 1.19 RATIO Normal [place] on/Po [facility] Comment on above: Performed By: #### L AI #### [facility] [address] [place] [address] DRVVT TEST RATIO 1.29 RATIO Abnormal <=1.20 [facility] Comment on above: Result Comment: The DRVVT ratios may be elevated in patients on anti-vitamin K therapy. Additional confirmatory tests prior to diagnosing or repeating DRVVT testing might be indicated when the patient is off anti-vitamin K therapy. Performed By: #### L AI #### [facility] [address] [place] [address] DRVVT SCREEN 1.53 RATIO Normal [facility] Comment on above: Performed By: #### L AI #### [facility] [address] [place] [address] Otheron 11-10-2019 SEE BELOW MG-OBGYN-Ri sman 310 IVF Work Phone: Comment on above: Genetics test res ults are available electronically in [facility]. Results will be sent on a separate report.In the AEMR, go to Community record -> click on Clinical documents -> go to Genetics Studies tab for results. Blood Typing (ABO + Rho D)on 07-08-2019 ABO group Nom (Bld) O [facility] [employer] Work Phone: Rh immune globulin screen (Bld) [Interp] Positive [facility] [employer] Work Phone: HCG, Beta Quantitativeon HCG.beta subunit Qn 610 {mIU/mL} Abnormal Wom [facility] [employer] Work Phone: Comment on above: Low-level positive H CG results can be seen in early , in cody- or post-menopausal females due to normal pituitary HCG production, or with analytic interference. Repeat testing in 48-72 hours can aid in assessing for as results should double in this time period. FSH measurement is recommended in cody- or post-menopausal females as concurrent elevation of FSH can support pituitary production as the source of the HCG elevation.. Total HCG measurement is performed using the Malathi Vass Access Immunoassay which detects intact HCG and free beta HCG subunit. This test is not indicated for use as a tumor marker. HCG testing is performed using a different test methodology at [facility] than other [facility]. Direct result comparison should only be made within the same method. REF VALUESNON FEMALE <5MALES <5 Hematologyon 07-08-2019 Blood group antibody screen Ql Negative [facility] [employer] Work Phone: Hematocrit (Bld) [Volume fraction] 37.9 % See Below [employer] [facility] Phone: Comment on above: Reference Range: 36. 0 - 46.0 Hemoglobin (Bld) [Mass/Vol] 11.4 g/dL below low threshold See Below [employer] [facility] Phone: Comment on above: Reference Range: 12. 0 - 16.0 MCV (RBC) [Entitic vol] 79 fL below lo w threshold 80 - 100 [facility] [employer] [facility] Phone: Platelets (Bld) [#/Vol] 240 {x10E9/L} 150 - 450 [employer] [employer] [facility] Phone: RBC (Bld) [#/Vol] 4.80 {x10E12/L} See Below [facility] [employer] Phone: Comment on above: Reference Range: 4.0 0 - 5.20 WBC (Bld) [#/Vol] 10.1 {x10E9/L} 4.4 - 11.3 [facility] [employer] Work Phone: Comment on above: SOURCE: Hemoglobin A1Con 07-08-2019 HbA1c (Bld) [Mass fraction] 134 {MG/DL} [employer] [facility] Phone: HbA1c (Bld) [Mass fraction] 6.3 % [facility] [employer] Work Phone: Comment on above: Diagnosis of Diabete s-Adults Non-Diabetic: < or = 5.6% Increased risk for developing diabetes: 5.7-6.4% Diagnostic of diabetes: > or = 6.5%. Monitoring of Diabetes Age (y) Therapeutic Goal (%) Adults: >18 <7.0 Pediatrics: 13-18 <7.5 7-12 <8.0 0- 6 7.5-8.5 [employer] [employer]. Diabetes Care 33(S1), Sep 2009. Hepatitis C Antibody Teston 07-08-2019 Hepatitis C Antibody Test NON-REACTIVE See Below [employer] Work Phone: Comment on above: SOURCE: Reference Ra nge: NONREACTIVE Patients receiving more than 5 mg/day of biotin may have interference in test results. A sample should be taken no sooner than eight hours after previous dose. Contact the testing laboratory for additional information. SOURCE: Reference Ra nge: NONREACTIVEThe MANAGED CARE LIAISON HIV Ag/Ab Combo assay for use on the [employer] is a two-step immunoassay to determine the presenceof HIV-1 p24 antigen as well as antibodies to HIV-1 (Group M and O) and antibodies to HIV-2. Otheron 07-08-2019 Erythrocyte distribution width (RBC) [Ratio] 16.2 % above high threshold See Below [employer] [facility] Phone: Comment on above: Reference Range: 11. 5 - 14.5 MCHC (RBC) [Mass/Vol] 30.1 g/dL below low threshold See Below [employer] [facility] Phone: Comment on above: Reference Range: 32. 0 - 36.0 Rubella virus IgG Qn (S) [IU]/mL [facility] Phone: Comment on above: REF VALUESNon-Immune : <10 IU/mLEquivocal: 10 - 15 IU/mLEvaluate further to determine immune statusImmune: >15 IU/mL T. pallidum IgG IA Ql (S) NONREACTIVE See Below [facility] Phone: Comment on above: Reference Range: NON REACTIVE Patients receiving more than 5 mg/day of biotin may have interference in test results. A sample should be taken no sooner than eight hours after previous dose. Contact [phone] for additional information. Patient does not have syphilis or it is an early infection. Repeat Syphilis testing should be obtained if clinical suspicion is high. NONREACTIVE See Below [employer] [facility] Phone: Comment on above: Reference Range: NON REACTIVE Patients receiving more than 5 mg/day of biotin may have interference in test results. A sample should be taken no sooner than eight hours after previous dose. Contact the testing laboratory for additional information. Cult, Urineon 07-07-2019 Bacteria identified Cx Nom (U) MICRSLT [employer] [facility] Phone: Comment on above: PATIENT: JESUS BROWN LOCATION: [facility]#: [id number] : 89 AGE: SEX: F ORDERED BY: PRINCESS ROSALES: URINE COLLECTED: 07/07/19 10:00ANTIBIOTICS AT HEATHER.: RECEIVED : 07/08/19 03:36SITE: R E S U L T S URINE CULTURE,BACTERIAL FINAL 07/09/19 07:46 MIXED URETHRAL JORGITO. GC + Chlamydia By Amplified Detectionon 07-07-2019 C. trachomatis rRNA JJ+probe Ql (Unsp spec) Negative NEGATIVE [facility] Phone: Comment on above: Securus Aptima Combo 2 Assay is an in vitro nucleic acid amplification test for the detection of ribosomal RNA from Chlamydia trachomatis (CT) and Neisseria gonorrhoeae (GC) to aid in the diagnosis of chlamydial and/or gonococcal urogenital disease. This assay is FDA-approved for testing on female endocervical swabs, vaginal swabs, ThinPrep liquid-based pap samples, male urine samples, and urethral swabs. Performance characteristics for this assay on specific kgf-FWA-qrbszoys sample types (female urine) have been validated by [facility]. Performance has not been evaluated for patients less than 14 years of age. Results should be interpreted in conjunction with other clinical information. N. gonorrhoeae rRNA JJ+probe Ql (Unsp spec) Negative NEGATIVE [facility] Phone: Comment on above: SOURCE: Genital cerv ix Otheron 07-07-2019 Please click on the link to view the study images Normal [employer] [facility] Phone: Amphetamines Screen Ql (U) Negative NEGATIVE [facility] Phone: Comment on above: CUTOFF LEVEL: 500 NG /ML Cross-reactivity has been reported with high concentrations of the following drugs: buproprion, chloroquine, chlorpromazine, ephedrine, mephentermine, fenfluramine, phentermine, phenylpropanolamine, pseudoephedrine, and propranolol. Benzoylecgonine Screen Ql (U) Negative NEGATIVE [facility] [employer] Work Phone: Comment on above: CUTOFF LEVEL: 150 NG /ML Methadone Screen Ql (U) Negative NEGATIVE [facility] [employer] Work Phone: Comment on above: CUTOFF LEVEL: 150 NG /ML The metabolite Y-cuvds-bewafxexjmfeie (LAAM) is not detected by this method in concentrations that would be found in the urine of patients on LAAM therapy. Opiates Screen Ql (U) Negative NEGATIVE [facility] [employer] Work Phone: Comment on above: CUTOFF LEVEL: 300 NG /ML The opiate screen does not detect fentanyl, meperidine, or tramadol. Oxycodone is not consistently detected (refer to Oxycodone Screen, Urine result). Oxycodone+Oxymorphone Screen Ql (U) Negative NEGATIVE [facility] [employer] Work Phone: Comment on above: CUTOFF LEVEL: 100 NG /ML This test will accurately detect both oxycodone and oxymorphone. SEE BELOW [facility] Phone: Comment on above: Drug screen results are presumptive and should not be used to assess compliance with prescribed medication. Contact the performing [facility] laboratory to add-on definitive confirmatory testing if clinically indicated. .Toxicology screening results are reported qualitatively. The concentration must be greater than or equal to the cutoff to be reported as positive. The concentration at which the screening test can detect an individual drug or metabolite varies. The absence of expected drug(s) and/or drug metabolite(s) may indicate non-compliance, inappropriate timing of specimen collection relative to drug administration, poor drug absorption, diluted/adulterated urine, or limitations of testing. For medical purposes only; not valid for forensic use. .Interpretive questions should be directed to the laboratory medical directors. Urinalysison 07-07-2019 Barbiturates Screen Ql (U) Negative NEGATIVE [facility] Phone: Comment on above: CUTOFF LEVEL: 200 NG /ML Benzodiazepines Ql (U) Negative NEGATIVE Wo [facility] Work Phone: Comment on above: CUTOFF LEVEL: 200 NG /ML Cannabinoids Screen Ql (U) Negative NEGATIVE [facility] Work Phone: Comment on above: CUTOFF LEVEL: 50 NG/ ML Phencyclidine Ql (U) Negative NEGATIVE [facility] Work Phone: Comment on above: CUTOFF LEVEL: 25 NG/ ML Cross-reactivity has been reported with dextromethorphan. Complete Blood Count + Diffe satish 07-06-2019 Basophils (Bld) [#/Vol] 0.03 {x10E9/L} See Belo w [facility] Work Phone: Comment on above: Reference Range: 0.0 0 - 0.10 Ordering Provider: Wesly GARSIA 92629 Basophils/100 WBC (Bld) 0.3 % 0.0 - 2.0 W [facility] Work Phone: Comment on above: Ordering Provider: Wesly GARSIA 00206 Eosinophils (Bld) [#/Vol] 0.25 {x10E9/L} See Below [facility] Work Phone: Comment on above: Reference Range: 0.0 0 - 0.70 Ordering Provider: Wesly GARSIA 95162 Eosinophils/100 WBC (Bld) 2.4 % 0.0 - 6.0 [facility] Work Phone: Comment on above: Ordering Provider: Wesly GARSIA 50894 Erythrocyte distribution width (RBC) [Ratio] 16.3 % above high threshold See Below [facility] Work Phone: Comment on above: Reference Range: 11. 5 - 14.5 Ordering Provider: Wesly GARSIA 96166 Hematocrit (Bld) [Volume fraction] 36.4 % See Below [facility] Work Phone: Comment on above: Reference Range: 36. 0 - 46.0 Ordering Provider: Wesly GARSIA 47917 Hemoglobin (Bld) [Mass/Vol] 11.0 g/dL below low threshold See Below [facility] Work Phone: Comment on above: Reference Range: 12. 0 - 16.0 Ordering Provider: Wesly GARSIA 58289 Lymphocytes (Bld) [#/Vol] 2.27 {x10E9/L} See Below [facility] Work Phone: Comment on above: Reference Range: 1.2 0 - 4.80 Ordering Provider: Wesly GARSIA 09756 Lymphocytes/100 WBC (Bld) 22.1 % See Below [facility] [employer] Phone: Comment on above: Reference Range: 13. 0 - 44.0 Ordering Provider: Wesly GARSIA 91347 MCHC (RBC) [Mass/Vol] 30.2 g/dL below low threshold See Below [facility] Work Phone: Comment on above: Reference Range: 32. 0 - 36.0 Ordering Provider: Wesly GARSIA 86055 MCV (RBC) [Entitic vol] 79 fL below lo w threshold 80 - 100 [facility] Work Phone: Comment on above: Ordering Provider: Wesly GARSIA 40982 Monocytes (Bld) [#/Vol] 0.67 {x10E9/L} See Belo w [facility] Work Phone: Comment on above: Reference Range: 0.1 0 - 1.00 Ordering Provider: Wesly GARSIA 74198 Monocytes/100 WBC (Bld) 6.5 % 2.0 - 10.0 W [facility] Work Phone: Comment on above: Ordering Provider: Wesly GARSIA 76301 Neutrophils (Bld) [#/Vol] 7.03 {x10E9/L} See Below [facility] Work Phone: Comment on above: Reference Range: 1.2 0 - 7.70 Ordering Provider: Wesly GARSIA 22520 Neutrophils/100 WBC (Bld) 68.4 % See Below [facility] [employer] Work Phone: Comment on above: Reference Range: 40. 0 - 80.0 Ordering Provider: Wesly GARSIA 78698 Platelets (Bld) [#/Vol] 215 {x10E9/L} 150 - 450 [facility] [employer] Work Phone: Comment on above: Ordering Provider: Wesly GARSIA 78078 RBC (Bld) [#/Vol] 4.62 {x10E12/L} See Below Wo [facility] [employer] Work Phone: Comment on above: Reference Range: 4.0 0 - 5.20 Ordering Provider: Wesly GARSIA 50850 WBC (Bld) [#/Vol] 10.3 {x10E9/L} 4.4 - 11.3 [facility] [employer] [facility] Work Phone: Comment on above: Ordering Provider: Wesly GARSIA 09315 Complete Blood Count + Differential 0.3 % 0.0 - 0.9 [facility] [employer] Work Phone: Comment on above: Percent differential counts (%) should be interpreted in the context of the absolute cell counts (cells/L). Ordering Provider: Wesly GARSIA 34142 HCG, Beta Quantitativeon HCG.beta subunit Qn 3778 {mIU/mL} Abnormal Wo [facility] [employer] Work Phone: Comment on above: Low-level positive H CG results can be seen in early , in cody- or post-menopausal females due to normal pituitary HCG production, or with analytic interference. Repeat testing in 48-72 hours can aid in assessing for as results should double in this time period. FSH measurement is recommended in cody- or post-menopausal females as concurrent elevation of FSH can support pituitary production as the source of the HCG elevation.. Total HCG measurement is performed using the Malathi Vass Access Immunoassay which detects intact HCG and free beta HCG subunit. This test is not indicated for use as a tumor marker. HCG testing is performed using a different test methodology at [facility] than other [facility]. Direct result comparison should only be made within the same method. REF VALUESNON FEMALE <5MALES <5 Ordering Provider: Wesly GARSIA 77395 Hematologyon 07-06-2019 ABO group Nom (Bld) O [facility] Work Phone: Comment on above: Ordering Provider: Wesly GARSIA 77845 Blood group antibody screen Ql Negative [facility] Work Phone: Comment on above: Ordering Provider: Wesly GARSIA 68299 Rh immune globulin screen (Bld) [Interp] Positive [facility] Work Phone: Comment on above: Ordering Provider: Wesly GARSIA 09445 Metabolic Panelon 07-06-2019 Anion gap [Moles/Vol] 12 mmol/L 10 - 20 Wom [facility] Work Phone: Comment on above: Ordering Provider: Wesly GARSIA 09968 Calcium [Mass/Vol] 8.4 mg/dL below low threshold 8.6 - 10.3 [facility] Work Phone: Comment on above: Ordering Provider: Wesly GARSIA 07642 Chloride [Moles/Vol] 105 mmol/L 98 - 107 [facility] Work Phone: Comment on above: Ordering Provider: Wesly GARSIA 96586 CO2 [Moles/Vol] 25 mmol/L 21 - 32 [facility] Work Phone: Comment on above: Ordering Provider: Wesly GARSIA 07017 Creatinine [Mass/Vol] 0.64 mg/dL See Below Wom [facility] Work Phone: Comment on above: Reference Range: 0.5 0 - 1.05 Ordering Provider: Wesly GARSIA 33413 Glucose [Mass/Vol] 117 mg/dL above high threshold 74 - 99 [facility] Work Phone: Comment on above: Ordering Provider: Wesly GARSIA 80539 Potassium [Moles/Vol] 3.7 mmol/L 3.5 - 5.3 [facility] [employer] Work Phone: Comment on above: Ordering Provider: Wesly GARSIA 60730 Sodium [Moles/Vol] 138 mmol/L 136 - 145 [facility] [employer] Work Phone: Comment on above: Ordering Provider: Wesly GARSIA 08609 Urea nitrogen [Mass/Vol] 8 mg/dL 6 - 23 [facility] [employer] Work Phone: Comment on above: Ordering Provider: Wesly GARSIA 59390 Otheron 07-06-2019 Interpreted by: NEFTALI CRUZ07/06/19 12:24MRN: [id number] Name: AMBIKA BROWN STUDY:US PELVIS OB TRANSABDOMINAL WITH TRANSVAGINAL 07/06/2019 12:13 pm INDICATION:29 y/o F with Cramping and spotting. LMP: Unknown. COMPARISON:None. ORDERING CLINICIAN:JUANJO GARSIA TECHNIQUE:Routine ultrasound of the pelvis was performed. Evaluation of thefemale pelvis was performed by transabdominal and transvaginaltechnique. Static images were obtained for remote interpretation. FINDINGS:The uterus measures 9 x 4.8 x 7 cm and is anteverted. Hyperechoicendometrial stripe measures up to 0.9 cm in thickness. A 3 mmanechoic structure in the right side of the endometrium, mayrepresent a small gestational sac/retained products of conception. Noevidence of yolk sac or pole. The right ovary measures 3 x 2.3 x 1.9 cm. Blood flow is detected.Follicular changes are noted. The left ovary measures 2.8 x 1.9 x 2 cm. Blood flow is detected.Follicular changes are noted.No adnexal masses. No free fluid in the pelvis. IMPRESSION:A 0.3 cm endometrial cystic structure, may represent a smallgestational sac versus retained products of conception. No evidenceof pole.Electronically signed by: CHRISTY CRUZ 07/06/19 12:24 Normal [facility] [employer] Work Phone: Comment on above: Ordering Provider: Wesly GARSIA 92479 >60 >60 [facility] [employer] Work Phone: Comment on above: Ordering Provider: Wesly GARSIA 42583 CALCULATIONS OF DUY MATED GFR ARE PERFORMED USING THE MDRD STUDY EQUATION FOR THE IDMS-TRACEABLE CREATININE METHODS. CLIN CHEM 2007;53:766-72 HCG, Serum - Qualitativeon 1 HCG ( test) Ql Positive Abnormal Negative W [facility] [employer] Work Phone: Dhea-Son 06-05-2019 DHEA-S 379.0 ug/dL High 84.8-378.0 [facility] Estradiolon 06-05-2019 Estradiol 60.5 pg/mL Normal [facility] Comment on above: Result Comment: Adult Female: Follicular phase 12.5 - 166.0 Ovulation phase 85.8 - 498.0 Luteal phase 43.8 - 211.0 Postmenopausal <6.0 - 54.7 1st trimester 215.0 - >4300.0 Girls (1-10 years) 6.0 - 27.0 Bird ECLIA methodology FSHon 06-05-2019 FSH 5.39 mIU/mL Normal [facility] Comment on above: Result Comment: Female: Mid-Follicular Phase: 3.85 - 8.78 mIU/mL Mid-Cycle Peak: 4.54 - 22.51 mIU/mL Mid-Luteal Phase: 1.79 - 5.12 mIU/mL Post-Menopausal: 16.74 - 113.59 mIU/mL Free Testoson 06-05-2019 Testoster, Free 3.3 pg/mL Normal 0.0-4.2 [facility] Comment on above: Result Comment: [facility] [place] [address] [facility] [id number] PhD Navjot Lambert PhD [facility] [address] [id number] MD Brendan Camacho MD Glucon 06-05-2019 Glucose [Mass/Vol] 86 mg/dL Normal 70-100 [facility] Glycon 06-05-2019 eAG 139.8 mg/dL Normal [facility] HbA1c (Bld) [Mass fraction] 6.5 % High 4.0-6.0 [facility] Insulinon 06-05-2019 Insulin 12.60 uIU/mL Normal 1.90-23.00 [facility] LDL Calculatedon 06-05-2019 Cholesterol in LDL [Mass/Vol] 100 mg/dL Normal [facility] Comment on above: Result Comment: Calculated LDL is unreliable when Triglyceride result is greater than 400. LHon 06-05-2019 Luteinizing Horm 13.49 mIU/mL Normal [facility] Comment on above: Result Comment: Female: Mid-Follicurlar Phase: 2.12 - 10.89 mIU/mL Mid-Cycle Peak: 19.18 - 103.03 mIU/mL Mid-Luteal Phase: 1.20 - 12.86 mIU/mL Postmenopausal: 10.87 - 58.64 mIU/mL Progeston 06-05-2019 Progesterone 0.2 ng/mL Normal [facility] Comment on above: Result Comment: Follicular phase 0.1 - 0.9 Luteal phase 1.8 - 23.9 Ovulation phase 0.1 - 12.0 First trimester 11.0 - 44.3 Second trimester 25.4 - 83.3 Third trimester 58.7 - 214.0 Postmenopausal 0.0 - 0.[address] [id number] [phone] PhD Navjot Lambert PhD Prolactinon 06-05-2019 Prolactin 9.59 ng/mL Normal [facility] Comment on above: Result Comment: Female: Premenopausal (<50 yrs): 3.34 - 26.72 ng/mL Postmenopausal (>50 yrs): 2.74 - 19.64 ng/mL TSHon 06-05-2019 TSH Qn 2.68 uIU/mL Normal 0.34-5.60 [facility] ZLipidon 06-05-2019 Cholesterol [Mass/Vol] 155 mg/dL Normal 0-[address] [facility] Cholesterol in HDL [Mass/Vol] 40 mg/dL Normal [facility] Triglyceride [Mass/Vol] 73 mg/dL Normal 0-149 [facility] Auto Diffon 05-24-2019 Basophils (Bld) [#/Vol] 0.1 10*3/uL Normal 0.0-0.2 [facility] Basophils/100 WBC (Bld) 0.4 % Normal 0.0-2.4 [facility] Eosinophils (Bld) [#/Vol] 0.3 10*3/uL Normal 0.0-0.5 [facility] Eosinophils/100 WBC (Bld) 2.2 % Normal 0.7-6.5 [facility] Lymphocytes (Bld) [#/Vol] 3.3 10*3/uL Normal 1.1-3.5 [facility] Lymphocytes/100 WBC (Bld) 23.9 % Normal 17.0-44.0 [facility] Monocytes (Bld) [#/Vol] 0.8 10*3/uL Normal 0.3-1.0 [facility] Monocytes/100 WBC (Bld) 5.8 % Normal 5.3-12.5 [facility] Neutrophils (Bld) [#/Vol] 9.3 10*3/uL High 1.8-7.5 [facility] Neutrophils/100 WBC (Bld) 67.7 % Normal 41.0-73.8 [facility] CMPon 05-24-2019 Albumin [Mass/Vol] 3.6 g/dL Normal 3.5-5.0 [facility] Alk Phos 96 IU/L High 32-91 [facility] ALT [Catalytic activity/Vol] 32 U/L Normal 14-63 [facility] Anion gap [Moles/Vol] 12.0 mmol/L Normal 5.0-19.[address] [facility] AST [Catalytic activity/Vol] 27 U/L Normal 15-41 [facility] Bilirubin [Mass/Vol] 0.2 mg/dL Low 0.3-1.2 [facility] Bun/CretRatio 19.0 Normal [facility] Calcium [Mass/Vol] 8.5 mg/dL Normal 8.1-10.1 [facility] Chloride [Moles/Vol] 104 mmol/L Normal 98-107 [facility] CO2 [Moles/Vol] 23 mmol/L Normal 22-32 [facility] Creatinine [Mass/Vol] 0.84 mg/dL Normal 0.60-1.30 [facility] Glucose [Mass/Vol] 158 mg/dL High 70-100 [facility] Osmolality-Calc 282 mOsm/kg Normal [facility] Potassium [Moles/Vol] 3.7 mmol/L Normal 3.4-5.1 [facility] Protein [Mass/Vol] 7.1 g/dL Normal 6.5-8.1 [place] [facility] Sodium [Moles/Vol] 139 mmol/L Normal 136-144 [place] [facility] Urea nitrogen [Mass/Vol] 16 mg/dL Normal 8-26 [facility] Provider Note - EDon 14-2 019 Provider Note - ED TIME SEEN: Time [id number] 22:10 CHIEF COMPLAINT/REASON FOR VISIT: Chief ComplaintDNC in January(1) REASON FOR VISITHeavy Menstrual Bleeding(1) Historianpatient HISTORY OF PRESENT ILLNESS - ADDITIONAL: Myzgxfkls10-qemo-pyn female who presents with heavy vaginal bleeding. Patient states ever since she had a miscarriage and DandC in January she's been having irregular periods. She states she just came off a 40 day menstrual cycle was off for a week and then started this heavy vaginal bleeding. She states she's been having heavy vaginal bleeding over the past 2 days. Denies any chills. She admits to lower abdominal cramping. Patient did talk to her OB who advised her to come to the emergency department. ALLERGIES: Allergies: Compazine: Drug, Unknown, Active OUTPATIENT MEDICATION, REVIEW/ADD MEDICATIONS: * Patient Currently Takes Medications as of 15-May-2019 23:16 documented in Structured Notes PAST MEDICAL HISTORY: Past Medical History: noncontributory (1) Resp: ASTHMA(1) GI: GASTROESOPHAGEAL REFLUX DISEASE(1) Head, Eye: MIGRAINES(1) Neuro/Psych: SEIZURE DISORDER(1) Additional Past Medical History: seizure related migraines patient is insulin resistant that is why she is on Metformin(1) PAST SURGICAL HISTORY: GI/Hepatobiliary: CHOLECYSTECTOMY(1) Eye/ENT: TONSILLECTOMY(1) Additional Past Surgical History: wisdom teeth, DNC(1) FAMILY HISTORY: Family History: positive (1) Conditions: hypertension, cancer, diabetes mellitus(1) Family Member with Hypertension: father(1) Family Member with Cancer: maternal grandmother, paternal grandmother, paternal grandfather(1) Maternal Grandmother's Cancer Type: uterine(1) Paternal Grandmother's Cancer Type: bladder(1) Paternal Grandfather's Cancer Type: prostate(1) Family Member with Diabetes: maternal grandmother, maternal grandfather(1) PAST MENSTRUAL HISTORY: Age at Menarche: 12 year(s)(1) Menstrual Cycle Duration: 40 day(s)(1) Date of Last Menstrual Period: 28-Mar-2019(2) Color: bright red(1) Menstrual Cycles: regular (1) Bleeding: heavy(1) Clots: frequently(1) Additional Past Menstrual History: Heavy periods, cramping, no menses yet after DandC pt states began bleeding 04/07 and continued till 04/11 has seen [employer](1) SEXUAL AND CONTRACEPTION HISTORY: Sexual Activity: active (1) Sexual Partner: single partner(1) Number of Sexual Partners in the Past 6 Months: 1 (1) Contraception Method: none(1) Contraception Duration: Trying to conceive(1) SUBSTANCE USE: Smoking Statusnever smoker(1) Alcohol Use Statuscurrent alcohol (1) Street Drug/Inhalant/Medication Use Statusstreet drug/inhalants/medicatio n never used (1) Exposure to Second Hand Smokenone (1) HISTORY ATTESTATION: AttestationI have reviewed and confirmed nurse's/medic's notes for patient's medications, allergies, medical history, and surgical history REVIEW OF SYSTEMS: Statement: Review of Systems as stated in History of Present Illness otherwise at least 10 systems reviewed and found Negative. Gynecological: Comments vaginal bleeding VITAL SIGNS: 2. Vital Signs: Date/TimeTemp (degrees F) (degrees F)Temp (degrees C) (degrees C)Temperature Site SiteHeart Rate (beats/min) beats/minBP Systolic (mm Hg) Systolic 23-May-2019 21:[id number] 138 BP Diastolic (mm Hg) Diastolic (mm Hg)BP SourceRespiration (breaths/min) Respiration (breaths/min)SpO2 (%) SpO2 (%)Height (ft) Height (ft) 87right upper [id number] Height (remainder in inches) Height (in)Height (cm) Height (cm)Height Method Height MethodWeight MethodBSA (m2) 7170.7ivzxaoenhtpq0.62 BMI (kg/m2) BMI (kg/m2)Weight (lbs) Weight (lbs)Weight (kg) Weight (kg) Presence of PainLocation Location 50.6422486.1complains of pain/discomfortabdomen; lower quadrant Pain Rating 7/10 PHYSICAL EXAMINATION: General Appearance CommentsPatient is awake and alert, well-nourished. Skin CommentsNo rashes, normal skin exam. Neck and Thyroid CommentsNeck is supple without any adenopathy. Eyes CommentsPupils are equal, round, reactive to light. Ears, Nose, Mouth and Throat CommentsHEENT is unremarkable. Respiratory CommentsLungs are clear to auscultation bilaterally with no wheezes, rales or rhonchi. Cardiovascular CommentsHeart regular rate and rhythm. No murmurs, rubs or gallops. Pulses CommentsPulses are equal throughout extremities. Edema Or Varicosities CommentsNo edema in lower extremities Gastrointestinal CommentsAbdomen is soft and nontender. No guarding, no rebound. Musculoskeletal CommentsMusculoskeletal exam is unremarkable. Neurological CommentsNeurologic exam is alert and oriented 3. Cranial nerves II through XII are intact. No motor or sensory deficits noted. LAB AND MICRO RESULTS (24 hours): General Hematology: 23-May-2019 22:44 Auto Dif ResultValueAbnRange Neutrophil %_67.7[41.0 - 73.8 %] Lymphocyte %_23.9[17.0 - 44.0 %] Monocyte %_5.8[5.3 - 12.5 %] Eosinophil %_2.2[0.7 - 6.5 %] Basophil %_0.4[0.0 - 2.4 %] Neutrophil Count_9.3Image has been removed.[1.8 - 7.5 x10E9/L] Lymphocyte Count_3.3[1.1 - 3.5 x10E9/L] Monocyte Count_0.8[0.3 - 1.0 x10E9/L] Eosinophil Count_0.3[0.0 - 0.5 x10E9/L] Basophil Count_0.1[0.0 - 0.2 x10E9/L] 23-May-2019 22:44 CBC With Auto Diff ResultValueAbnRange WBC13.7Image has been removed.[3.5 - 11.5 x10E9/L] RBC4.81[3.78 - 5.45 x10E12/L] Uuecgxhucz82.7[11.3 - 15.6 g/dL] Srwapayjps83.5[34.7 - 44.9 %] MCV_75.8Image has been removed.[80.0 - 100.0 fL] MCH_24.4Image has been removed.[26.5 - 33.0 pg] MCHC_32.2Image has been removed.[32.6 - 36.0 g/dL] Platelets Tgahz254[144 - 400 x10E9/L] Mean Plt Vol_10.9Image has been removed.[7.2 - 10.3 fL] RDW_16.5Image has been removed.[11.4 - 16.0 %] General Chemistry: 23-May-2019 22:44 Comprehensive Metabolic Panel ResultValueAbnRange Sodium, Jnufo789[136 - 144 mmol/L] Potassium, Level3.7[3.4 - 5.1 mmol/L] Bdilalsf660[98 - 107 mmol/L] CO223[22 - 32 mmol/L] Anion Gap, Serum_12.0[5.0 - 19.0 mmol/L] Glucose, Gqxmu430Ayfrk has been removed.[70 - 100 mg/dL] Blood Urea Nitrogen, Serum16[8 - 26 mg/dL] Creatinine0.84[0.60 - 1.30 mg/dL] Calcium, Level8.5[8.1 - 10.1 mg/dL] Total Protein7.1[6.5 - 8.1 g/dL] Albumin, Level3.6[3.5 - 5.0 g/dL] Bilirubin Total0.2Image has been removed.[0.3 - 1.2 mg/dL] Aspartate Kkijzryksnhj62[15 - 41 IU/L] Alanine Bievtqvjxkvs83[14 - 63 IU/L] Alkaline Nqhwjyezlnx09Smrnu has been removed.[32 - 91 IU/L] BUN/Creatinine Ratio_19.0 Osmolality-Calc_282[ mOsm/kg] Urinalysis: 23-May-2019 22:34 Urinalysis W/ Microscopic ResultValueAbnRange Urine Appearance_Hazy[Clear] Color_Yellow[Yellow] Urine Ph5.0[5.0 - 8.0] Urine Spec Gravity1.029[1.001 - 1.03] Urine GlucoseNegative[Negative ] Blood Urine_LargeImage has been removed.[Negative] Urine KetonesNegative[Negative ] Urine Protein Qual30(1+)Image has been removed.[Negative mg/dL] Urobilinogen<2.0[ - <2.0 mg/dL] Bilirubin, Urine_Negative[Negative] Leukocyte EsterTRACEImage has been removed.[Negative] Urine NitriteNegative[Negative ] WBC Count, Urine_NONE[0 - 5 /HPF] RBC Count, Urine_>100Image has been removed.[0 - 5 /HPF] DIAGNOSTIC TESTS AND OTHER RESULTS (24 hours): General Radiology: 23-May-2019 23:43 US Pelvis Complete (Non-OB) ResultText PACS Viewer 23-May-2019 23:43 US Pelvis Transvaginal Non-OB ResultText PACS Viewer Ultrasounds: 23-May-2019 23:43 US Pelvis Complete (Non-OB) ResultText US Pelvis Complete (Non-OB) Patient Name: AMBIKA BROWN STUDY: RUL/PELVIS; RUL/PELVIS-TRANSVAGINAL; 05/23/2019 11:27 pm INDICATION: BLEEDING. Vaginal bleeding. COMPARISON: None. ACCESSION NUMBER(S): [id number]; [id number] ORDERING CLINICIAN: CHARLIE MOTT TECHNIQUE: Transabdominal and transvaginal sonographic images of the pelvis. Spectral Doppler imaging. FINDINGS: UTERUS: Anteverted. 7.9 x 2.6 x 3 cm. ENDOMETRIUM: Normal thickness, 11 mm. RIGHT OVARY: 3 x 1.5 x 2.6 cm. Blood flow is present. Follicles are present. LEFT OVARY: 1.9 x 2.6 x 3 cm. Blood flow is present. Follicles are present. CUL DE SAC: No free-fluid. IMPRESSION: No acute sonographic abnormality. Dictated by: Electronically Signed by: Duke Gardner Electronically Signed on: 05/23/2019 11:43 PM 23-May-2019 23:43 US Pelvis Transvaginal Non-OB ResultText US Pelvis Transvaginal Non-OBMRN: [id number] Patient Name: AMBIKA BROWN STUDY: RUL/PELVIS; RUL/PELVIS-TRANSVAGINAL; 05/23/2019 11:27 pm INDICATION: BLEEDING. Vaginal bleeding. COMPARISON: None. ACCESSION NUMBER(S): [id number]; [id number] ORDERING CLINICIAN: CHARLIE MOTT TECHNIQUE: Transabdominal and transvaginal sonographic images of the pelvis. Spectral Doppler imaging. FINDINGS: UTERUS: Anteverted. 7.9 x 2.6 x 3 cm. ENDOMETRIUM: Normal thickness, 11 mm. RIGHT OVARY: 3 x 1.5 x 2.6 cm. Blood flow is present. Follicles are present. LEFT OVARY: 1.9 x 2.6 x 3 cm. Blood flow is present. Follicles are present. CUL DE SAC: No free-fluid. IMPRESSION: No acute sonographic abnormality. Dictated by: Electronically Signed by: Duke Gardner Electronically Signed on: 05/23/2019 11:43 PM PROGRESS NOTE: ED Course: Emergency Department course, laboratory studies were obtained and reviewed patient's hemoglobin was 11.7. Electrolytes were normal. Urinalysis did show large amounts of blood. Pelvic ultrasound was performed which was normal. Patient was given some Motrin here. She does have a appointment with her OB on Sunday. Instructed to maintain that appointment she is agreeable with this plan. DIAGNOSES/PROBLEM LIST: Problem GiftMyjvAuajvxJXS-5NLJ-2 0 Vaginal bleedingED JjPxcozh325.8N93.9 DISCHARGE DISPOSITION: Disposition: discharged Discharge Type: home CONDITION ON DISCHARGE: Condition on Dispositionstable MEDICATION RECONCILIATION AND DISCHARGE MEDS: * Outpatient Medication Status not yet specified Electronic Signatures: Charlie Mott () (Signed 23-May-2019 23:52) Entered: Time Seen/ED Notes, Chief Complaint/Reason for Visit via Triage Note, Patient History, History Attestation, ROS, Physical Exam, Lab Results Review, Diagnostic Imaging Results Review, Progress Note, ED Disposition (REQUIRED), Attestation Authored: Time Seen/ED Notes, Chief Complaint/Reason for Visit via Triage Note, Patient History, History Attestation, ROS, Vital Signs, Physical Exam, Lab Results Review, Diagnostic Imaging Results Review, Progress Note, ED Disposition (REQUIRED), Attestation Last Updated: 23-May-2019 23:52 by Charlie Mott () References: 1. Data Referenced From Triage Note, Emergency 05/23/2019 09:17 PM 2. Data Referenced From Provider Note - ED 05/15/2019 10:59 PM [facility] RUL/PELVISon 05-24-2019 RUL/PELVIS Patient Name: AMBIKA BROWN STUDY: RUL/PELVIS; RUL/PELVIS-TRANSVAGINAL; 05/23/2019 11:27 pm INDICATION: BLEEDING. Vaginal bleeding. COMPARISON: None. ACCESSION NUMBER(S): [id number]; [id number] ORDERING CLINICIAN: CHARLIE MOTT TECHNIQUE: Transabdominal and transvaginal sonographic images of the pelvis. Spectral Doppler imaging. FINDINGS: UTERUS: Anteverted. 7.9 x 2.6 x 3 cm. ENDOMETRIUM: Normal thickness, 11 mm. RIGHT OVARY: 3 x 1.5 x 2.6 cm. Blood flow is present. Follicles are present. LEFT OVARY: 1.9 x 2.6 x 3 cm. Blood flow is present. Follicles are present. CUL DE SAC: No free-fluid. IMPRESSION: No acute sonographic abnormality. Dictated by: Electronically Signed by: Duke Gardner Electronically Signed on: 05/23/2019 11:43 PM Normal [facility] RUL/PELVIS-TRANSVAGINALon RUL/PELVIS-TRANSVAGINAL Patient Name: AMBIKA BROWN STUDY: RUL/PELVIS; RUL/PELVIS-TRANSVAGINAL; 05/23/2019 11:27 pm INDICATION: BLEEDING. Vaginal bleeding. COMPARISON: None. ACCESSION NUMBER(S): [id number]; [id number] ORDERING CLINICIAN: CHARLIE MOTT TECHNIQUE: Transabdominal and transvaginal sonographic images of the pelvis. Spectral Doppler imaging. FINDINGS: UTERUS: Anteverted. 7.9 x 2.6 x 3 cm. ENDOMETRIUM: Normal thickness, 11 mm. RIGHT OVARY: 3 x 1.5 x 2.6 cm. Blood flow is present. Follicles are present. LEFT OVARY: 1.9 x 2.6 x 3 cm. Blood flow is present. Follicles are present. CUL DE SAC: No free-fluid. IMPRESSION: No acute sonographic abnormality. Dictated by: Electronically Signed by: Duke Gardner Electronically Signed on: 05/23/2019 11:43 PM Normal [facility] RUMon 05-24-2019 Bilirubin [Mass/Vol] Negative Normal Negative [facility] Blood Large Abnormal Negative [facility] Color (U) Yellow Normal Yellow [facility] Glucose [Mass/Vol] Negative Normal Negative [facility] Ketones Ql (U) Negative Normal Negative [facility] Leukocyte Flavia TRACE Abnormal Negative [facility] Nitrite Ql (U) Negative Normal Negative [facility] pH (U) 5.0 [pH] Normal 5.0 - 8.0 [facility] Protein [Mass/Vol] 30(1+) Abnormal Negative [place] [facility] RBC/Hpf >100 Abnormal 0-5 [facility] Ur Appearance Hazy Normal Clear [facility] Urine Spec [place] 1.029 Normal 1.001-1.03 [place] [facility] Urobilinogen Qn (U) <2.0 Normal <2.0 [facility] WBC/Hpf NONE Normal 0-5 [facility] zCBCDon 05-24-2019 Erythrocyte distribution width (RBC) [Ratio] 16.5 % High 11.4-16.0 [facility] Hematocrit (Bld) [Volume fraction] 36.5 % Normal 34.7-44.9 [facility] Hemoglobin (Bld) [Mass/Vol] 11.7 g/dL Normal 11.3-15.6 [facility] MCH (RBC) [Entitic mass] 24.4 pg Low 26.5-33.0 [facility] MCHC (RBC) [Mass/Vol] 32.2 g/dL Low 32.6-36.0 [facility] MCV (RBC) [Entitic vol] 75.8 fL Low 80.0-100.0 [facility] Mean Plt Vol 10.9 fL High 7.2-10.3 [facility] Platelets (Bld) [#/Vol] 221 10*3/uL Normal 144-400 [facility] RBC (Bld) [#/Vol] 4.81 x10E12/L Normal 3.78-5.45 [facility] WBC (Bld) [#/Vol] 13.7 10*3/uL High 3.5-11.5 [facility] Provider Note - EDon 019 Provider Note - ED Document Status Changed Normal [facility] BHCGon 03-11-2019 Beta HCG Quant 1.5 mIU/mL Normal 0.0-3.0 [facility] Comment on above: Result Comment: Approximate Gestational Age (weeks) Approximate hCG Range 0.2 - 1 5 - 50 1 - 2 50 - 500 2 - 3 100 - 5,000 3 - 4 500 - 10,000 4 - 5 1,000 - 50,000 5 - 6 10,000 - 100,000 6 - 8 15,000 - 200,000 8 - 12 10,000 - 100,000 Provider Note - Nona 03-09- 019 Provider Note - ED TIME SEEN: Time [id number] 23:54 CHIEF COMPLAINT/REASON FOR VISIT: Chief ComplaintMigraine headache REASON FOR VISITMigraine headache Historianpatient HISTORY OF PRESENT ILLNESS - ADDITIONAL: Woljloqeb11-jpwr-bew female presents to the Emergency Department today complaining of a 6-7 day history of a migraine headache. Reports to having a throbbing type pain behind her right eye that radiates throughout the entire right side of her head, constant, and varies in intensity. States that the headache is not the first or worst of her life. It was not of sudden onset or thunderclap nature. It feels just like her prior episodes of migraines. Does have some paresthesias in the right periorbital region which is not uncommon as well. Has had nausea without any vomiting. Denies any associated fever, chills, neck pain, chest pain, shortness of breath, abdominal pain, diarrhea, constipation, urinary symptoms, or focal weakness of her extremities. ALLERGIES: Allergies: Compazine: Drug, Unknown, Active No Known Allergies: Inactive OUTPATIENT MEDICATION, REVIEW/ADD MEDICATIONS: * Patient Currently Takes Medications as of 10-Feb-2019 08:45 documented in Structured Notes PAST MEDICAL HISTORY: Past Medical History: noncontributory (1) Resp: ASTHMA(1) GI: GASTROESOPHAGEAL REFLUX DISEASE(1) Head, Eye: MIGRAINES(1) Neuro/Psych: SEIZURE DISORDER(1) Additional Past Medical History: seizure related migraines patient is insulin resistant that is why she is on Metformin(1) PAST SURGICAL HISTORY: GI/Hepatobiliary: CHOLECYSTECTOMY(1) Eye/ENT: TONSILLECTOMY(1) Additional Past Surgical History: wisdom teeth(1) FAMILY HISTORY: Family History: positive (1) Conditions: hypertension, cancer, diabetes mellitus(1) Family Member with Hypertension: father(1) Family Member with Cancer: maternal grandmother, paternal grandmother, paternal grandfather(1) Maternal Grandmother's Cancer Type: uterine(1) Paternal Grandmother's Cancer Type: bladder(1) Paternal Grandfather's Cancer Type: prostate(1) Family Member with Diabetes: maternal grandmother, maternal grandfather(1) PAST MENSTRUAL HISTORY: Age at Menarche: 12 year(s)(1) Menstrual Cycle Duration: 4 day(s)(1) Color: bright red(1) Menstrual Cycles: regular (1) Bleeding: heavy(1) Clots: frequently(1) Additional Past Menstrual History: Heavy periods, cramping, no menses yet after DandC(1) SEXUAL AND CONTRACEPTION HISTORY: Sexual Activity: active (1) Sexual Partner: single partner(1) Number of Sexual Partners in the Past 6 Months: 1 (1) Contraception Method: none(1) Contraception Duration: Trying to conceive(1) SUBSTANCE USE: Smoking Statusnever smoker(1) Alcohol Use Statusalcohol never used (1) Street Drug/Inhalant/Medication Use Statusstreet drug/inhalants/medicatio n never used (1) Exposure to Second Hand Smokenone (1) HISTORY ATTESTATION: AttestationI have reviewed and confirmed nurse's/medic's notes for patient's medications, allergies, medical history, and surgical history REVIEW OF SYSTEMS: Statement: Review of Systems as stated in History of Present Illness otherwise at least 10 systems reviewed and found Negative. VITAL SIGNS: 2. Vital Signs: Date/TimeTemp (degrees F) (degrees F)Temp (degrees C) (degrees C)Temperature Site SiteHeart Rate (beats/min) beats/minBP Systolic (mm Hg) Systolic 08-Mar-2019 22:584612.8wzoydexj02745 BP Diastolic (mm Hg) Diastolic (mm Hg)Respiration (breaths/min) Respiration (breaths/min)SpO2 (%) SpO2 (%)Height (ft) Height (ft)Height (remainder in inches) Height (in) [id number] Height (cm) Height (cm)BSA (m2)BMI (kg/m2) BMI (kg/m2)Weight (lbs) Weight (lbs)Weight (kg) Weight (kg) [id number] Presence of PainLocation LocationPain Rating complains of pain/discomforthead8/10 PHYSICAL EXAMINATION: General Appearance CommentsWell appearing patient with no acute distress. Skin CommentsNo rashes, lesions, petechiae, or purpura. No signs of infection. Neck and Thyroid CommentsSupple without lymphadenopathy. No meningeal signs. Eyes CommentsBilateral conjunctiva without injection, discharge, or drainage. PERRL with consensual pupil response bilaterally. EOM's are intact without any signs of entrapment. Ears, Nose, Mouth and Throat CommentsBilateral auditory canals are non-inflammed and non-reddened. Bilateral TM's are pearly britt with good light reflex. Septum is midline without deviation. Turbinates are non-inflammed and not reddened. Mucous membranes are moist. All teeth are intact. Uvula is midline without deviation and rises upon phonation. Tonsils are 1+ without exudate bilaterally. Respiratory CommentsRespirations are spontaneous and nonlabored. Lung sounds are clear in all anderson anteriorly and posteriorly. Cardiovascular CommentsRRR without murmur, click, or rub. Edema Or Varicosities CommentsNo redness, warmth, or edema. Gastrointestinal CommentsBS active x 4 quads. Abdomen is soft, nondistended, and nontender to palpation. (-) Gamble's sign. (-)McBurney's sign. There is no rebound, rigidity, guarding, or other peritoneal signs. Genitourinary CommentsNo suprapubic or CVA tenderness noted. Musculoskeletal CommentsNo edema, cyanosis, clubbing noted. Neurological CommentsAlert and Oriented 3. Follows commands well. Cranial nerves II through XII are intact. Hand grasps and push/pulls of upper and lower extremities are equally strength bilaterally. DTRs are 2+ and intact bilaterally. Gait is steady and strong. Lymphatics CommentsNo supra or infraclavicular lymphadenopathy noted. Psychiatric Commentsalert, interactive and appropriate. PROGRESS NOTE: ED Course: Patient was seen and evaluated by Dr. Anderson. Saline lock was established and she was given 1 L normal saline wide open over an hour. Given Reglan and Benadryl as well. DIAGNOSES/PROBLEM LIST: Problem NzntRkoeFyhsmqQHM-2XOO-7 0 Migraine headacheED UhJaeape636.90G43.909 DISCHARGE DISPOSITION: Disposition: discharged Discharge Type: home CONDITION ON DISCHARGE: Condition on Dispositionimproved MEDICATION RECONCILIATION AND DISCHARGE MEDS: * Outpatient Medication Status not yet specified CO-SIGN/ATTESTATION: Attestation: This is a shared visit. I have reviewed the LIPs encounter note, approve the LIPs documentation and provide the following additional information from my personal encounter. Shared Visit Documentation: See comments/additional findings below Comments/ Additional Findings: Attending Note: This is a 29-year-old female complaining of headache. Patient has had a headache for the past 6-7 days states that this is susceptible for her migraine. She describes some paresthesias in the right premolar region which she often gets with these migraine headaches. She describes some nausea but no vomiting, no fevers or chills or head injury. Patient does have medicine that she is taken for migraine headaches but was reluctant to do so because she try to get . In the ED she is afebrile, vital signs are stable, and patient is no acute distress. Physical examination is nonfocal, no neurologic deficits are noted. Patient was treated symptomatically with IV fluids, Reglan and Benadryl and near resolution of all of her symptoms. She was discharged home to continue with supportive treatment and talk to her neurologist about migraine treatments should she get . 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 I independently evaluated the patient, obtained history from the patient, and performed a physical exam. I was directly involved in the care of the patient while they were here in the emergency department. I directed the evaluation and management of the patient, as well as the diagnosis and disposition. Chart was dictated with the use of i-[employer] dictation software within the framework of the current electronic medical records software. Attempts were made to edit all spelling, grammatical, and administrative services assistant errors prior to finalizing the chart. Electronic Signatures: Allen Anderson) (Signed 09-Mar-2019 22:48) Authored: ED Disposition (REQUIRED), Attestation Co-Signer: Time Seen/ED Notes, Chief Complaint/Reason for Visit via Triage Note, Patient History, History Attestation, ROS, Physical Exam, ED Disposition (REQUIRED), Attestation Ric Purdy (FORMULA CHECKER-SCHEDULE CHECKER) (Signed 09-Mar-2019 03:00) Entered: Time Seen/ED Notes, Chief Complaint/Reason for Visit via Triage Note, Patient History, History Attestation, ROS, Vital Signs, Physical Exam, Progress Note, ED Disposition (REQUIRED), Attestation Authored: Time Seen/ED Notes, Chief Complaint/Reason for Visit via Triage Note, Patient History, History Attestation, ROS, Physical Exam, Progress Note, ED Disposition (REQUIRED), Attestation Last Updated: 09-Mar-2019 22:48 by Allen Anderson () References: 1. Data Referenced From Triage Note, Emergency 03/08/2019 10:52 PM Normal [facility] Glucometeron 01-22-2019 Glucose [Mass/Vol] 94 mg/dL Normal 70-100 [place] [facility] Operative Reporton 9 Operative Report Document Status Changed Normal [facility] U Pregon 01-22-2019 Beta HCG ( test) Ql (U) Positive Normal Negative [facility] Auto Diffon 01-08-2019 Basophils (Bld) [#/Vol] 0.0 10*3/uL Normal 0.0-0.2 [facility] Basophils/100 WBC (Bld) 0.2 % Normal 0.0-2.4 [facility] Eosinophils (Bld) [#/Vol] 0.2 10*3/uL Normal 0.0-0.5 [facility] Eosinophils/100 WBC (Bld) 2.2 % Normal 0.7-6.5 [facility] Lymphocytes (Bld) [#/Vol] 2.2 10*3/uL Normal 1.1-3.5 [facility] Lymphocytes/100 WBC (Bld) 20.1 % Normal 17.0-44.0 [facility] Monocytes (Bld) [#/Vol] 0.6 10*3/uL Normal 0.3-1.0 [facility] Monocytes/100 WBC (Bld) 5.4 % Normal 5.3-12.5 [facility] Neutrophils (Bld) [#/Vol] 7.7 10*3/uL High 1.8-7.5 [facility] Neutrophils/100 WBC (Bld) 72.1 % Normal 41.0-73.8 [facility] Creaton 01-08-2019 Creatinine [Mass/Vol] 0.71 mg/dL Normal 0.60-1.30 [facility] inson [facility] Glucon 01-08-2019 Glucose [Mass/Vol] 94 mg/dL Normal 70-100 [place] [facility] Glycon 01-08-2019 eAG 131.2 mg/dL Normal [facility] HbA1c (Bld) [Mass fraction] 6.2 % High 4.0-6.0 [facility] HIV Ag/Abon 01-08-2019 HIV Ag/Ab Nonreactive Normal Nonreactiv [facility] Kmison 01-08-2019 Courtesy Draw Kits Sample received from provider office was sent to performing lab. Normal [facility] Prenatalon 01-08-2019 Erythrocyte distribution width (RBC) [Ratio] 18.6 % High 11.4-16.0 [facility] Hematocrit (Bld) [Volume fraction] 37.2 % Normal 34.7-44.9 [facility] Hemoglobin (Bld) [Mass/Vol] 12.0 g/dL Normal 11.3-15.6 [facility] MCH (RBC) [Entitic mass] 24.7 pg Low 26.5-33.0 [facility] MCHC (RBC) [Mass/Vol] 32.2 g/dL Low 32.6-36.0 [facility] MCV (RBC) [Entitic vol] 76.8 fL Low 80.0-100.0 [facility] Mean Plt Vol 10.5 fL High 7.2-10.3 [facility] Platelets (Bld) [#/Vol] 200 10*3/uL Normal 144-400 [facility] RBC (Bld) [#/Vol] 4.85 x10E12/L Normal 3.78-5.45 [facility] WBC (Bld) [#/Vol] 10.7 10*3/uL Normal 3.5-11.5 [facility] Rubella IgG Prenatalon 01-08 Rubella IgG <10.0 Normal [facility] Comment on above: Result Comment: Non-Immune < 10 IU/mL Equivocal 10 - <15 IU/mL Immune >=15 IU/mL SGOTo 01-08-2019 AST [Catalytic activity/Vol] 36 U/L Normal 15-41 [facility] SGPTon 01-08-2019 ALT [Catalytic activity/Vol] 43 U/L Normal 14-63 [facility] Scanon 01-08-2019 Anisocytosis Ql (Bld) SLIGHT Normal [facility] Macrocytes Ql (Bld) FEW Normal [facility] Microcytes FEW Normal [facility] pRPRon 01-08-2019 Reagin Ab RPR Ql (S) NON REAC Normal NON REAC [facility] zHepatits B Surface Ag (Pren atal)on 01-08-2019 Hep B Surf Ag Nonreactive Normal Nonreactiv [facility] C Urineon 01-06-2019 C Urine SOURCE: Urine (No gr owth Testing performed at [facility] Department of Laboratory Medicine [address] [place] [address]) Normal [facility] Chlam Amp RNAon 01-06-2019 Chlam Amp RNA Negative Normal Negative [facility] Comment on above: Result Comment: Hologic? Aptima Combo 2 Assay is an in vitro nucleic acid amplification test for the detection of ribosomal RNA from Chlamydia trachomatis (CT) and Neisseria gonorrhoeae (GC) to aid in the diagnosis of chlamydial and/or gonococcal urogenital disease. This assay is FDA-approved for testing on female endocervical swabs, vaginal swabs, ThinPrep liquid-based pap samples, male urine samples and urethral swabs. Performance characteristics for this assay on specific uar-FJJ-rapvyylf sample types (female urine) have been validated by [facility]. Performance has not been evaluated for patients less than 14 years of age. Results should be interpreted in conjunction with other clinical information. Cult, Urineon 01-06-2019 Bacteria identified Cx Nom (U) [facility] Work Phone: Comment on above: PATIENT: JESUS BROWN LOCATION: [facility] BILL#: [id number] : 89 AGE: SEX: F ORDERED BY: PRINCESS ROSALES: URINE COLLECTED: 01/06/19 15:00ANTIBIOTICS AT HEATHER.: RECEIVED : 01/06/19 23:20SITE: R E S U L T S URINE CULTURE,BACTERIAL FINAL 01/07/19 15:49 NO GROWTH [id number] Pro vider: GALLITO ROSALES [id number] GC AMP RNAon 01-06-2019 GC Amp RNA Negative Normal Negative [facility] RUMon 01-06-2019 Bilirubin [Mass/Vol] Negative Normal Negative [facility] Blood Moderate Abnormal Negative [facility] Color (U) Yellow Normal Yellow [facility] Glucose [Mass/Vol] Negative Normal Negative [place] [facility] Ketones Ql (U) Negative Normal Negative [facility] Leukocyte Flavia Large Abnormal Negative [facility] Mucus Ql (Urine sed) 2+ /LPF Normal NONE [facility] Nitrite Ql (U) Negative Normal Negative [facility] pH (U) 5.0 [pH] Normal 5.0 - 8.0 [facility] Protein [Mass/Vol] Negative Normal Negative [facility] RBC/Hpf 2-5 Normal 0-5 [facility] Squamous Epith MODERATE Abnormal NONE [facility] Ur Appearance Hazy Normal Clear [facility] Urine Spec [place] 1.023 Normal 1.001-1.03 [facility] Urobilinogen Qn (U) <2.0 Normal <2.0 [facility] WBC/Hpf 50-100 Abnormal 0-5 [facility] U Crea Ranon 01-06-2019 Urine Creat Ran 255.4 mg/dL Normal [facility] U Pro Ranon 01-06-2019 U T Prot Ran 27 mg/dL Normal [facility] U Prot/Creat Ranon 9 U Prot/Creat Ratio Ran 0.11 mg/mg Normal [facility] BHCGon 01-04-2019 Beta HCG Quant 5544.0 mIU/mL High 0.0-3.0 [facility] Comment on above: Result Comment: Approximate Gestational Age (weeks) Approximate hCG Range 0.2 - 1 5 - 50 1 - 2 50 - 500 2 - 3 100 - 5,000 3 - 4 500 - 10,000 4 - 5 1,000 - 50,000 5 - 6 10,000 - 100,000 6 - 8 15,000 - 200,000 8 - 12 10,000 - 100,000 BMPon 01-04-2019 Anion gap [Moles/Vol] 11.0 mmol/L Normal 5.0-19.0 [facility] Bun/CretRatio 16.4 Normal [facility] Calcium [Mass/Vol] 9.2 mg/dL Normal 8.1-10.1 [facility] Chloride [Moles/Vol] 104 mmol/L Normal 98-107 [facility] CO2 [Moles/Vol] 22 mmol/L Normal 22-32 [facility] Creatinine [Mass/Vol] 0.61 mg/dL Normal 0.60-1.30 [facility] Glucose [Mass/Vol] 111 mg/dL High 70-100 [facility] Osmolality-Calc 274 mOsm/kg Normal [facility] Potassium [Moles/Vol] 3.5 mmol/L Normal 3.4-5.1 [facility] Sodium [Moles/Vol] 137 mmol/L Normal 136-144 [place] [facility] Urea nitrogen [Mass/Vol] 10 mg/dL Normal 8- [facility] C Urineon 01-04-2019 C Urine SOURCE: Urine (Mixed Urethral jorgito. Testing performed at [facility] Department of Laboratory Medicine [address] [place] [address]) Normal [facility] Cult, Urineon 01-04-2019 Bacteria identified Cx Nom (U) MICRSLT zMP-[facility] Work Phone: Comment on above: PATIENT: JESUS BROWN LOCATION: [facility] BILL#: [id number] : 89 AGE: SEX: F ORDERED BY: JERRY GARSIA: URINE COLLECTED: 01/04/19 12:51ANTIBIOTICS AT HEATHER.: RECEIVED : 01/04/19 16:50SITE: Unspecified R E S U L T S URINE CULTURE,BACTERIAL FINAL 01/06/19 07:13 MIXED URETHRAL JORGITO. [id number] Pro vider: JUANJO GARSIA [id number] Provider Note - EDon 019 Provider Note - ED TIME SEEN: Time [id number] 10:26 CHIEF COMPLAINT/REASON FOR VISIT: Chief ComplaintPt states that she is 7 weeks . Pt stated that she is having cramping and spotting. It started around this morning. Pt states that she pasted clots.(1) REASON FOR VISIT bleeding/spotting(1) Historianpatient HISTORY OF PRESENT ILLNESS - ADDITIONAL: ComplaintSpotting and cramping. This patient presents to the emergency department due to onset of spotting that began this morning with associated cramping, though she states that she's been having cramping for a while now. She states that she did pass a small blood clot and then came to the emergency room. She states that she is around 7 weeks currently. She states that she is 5, para 0, AB 4. She states that she has not seen her OB yet for this . She is scheduled later this week on Sunday to see Dr. Rodríguez. ALLERGIES: Allergies: Compazine: Drug, Unknown, Active No Known Allergies: Inactive OUTPATIENT MEDICATION, REVIEW/ADD MEDICATIONS: * Incomplete Medication History as of 25-Dec-2018 00:40 documented in Structured Notes PAST MEDICAL HISTORY: Past Medical History: noncontributory (1) Resp: ASTHMA(1) GI: GASTROESOPHAGEAL REFLUX DISEASE(1) Head, Eye: MIGRAINES(1) Neuro/Psych: SEIZURE DISORDER(1) Additional Past Medical History: seizure related migraines(1) PAST SURGICAL HISTORY: GI/Hepatobiliary: CHOLECYSTECTOMY(1) Eye/ENT: TONSILLECTOMY(1) Additional Past Surgical History: wisdom teeth(1) FAMILY HISTORY: Family History: positive (1) Conditions: hypertension, cancer, diabetes mellitus(1) Family Member with Hypertension: father(1) Family Member with Cancer: maternal grandmother, paternal grandmother, paternal grandfather(1) Maternal Grandmother's Cancer Type: uterine(1) Paternal Grandmother's Cancer Type: bladder(1) Paternal Grandfather's Cancer Type: prostate(1) Family Member with Diabetes: maternal grandmother, maternal grandfather(1) PAST MENSTRUAL HISTORY: Age at Menarche: 12 year(s)(1) Menstrual Cycle Duration: 4 day(s)(1) Color: bright red(1) Menstrual Cycles: regular (1) Bleeding: heavy(1) Clots: frequently(1) Additional Past Menstrual History: Heavy periods, cramping(1) SEXUAL AND CONTRACEPTION HISTORY: Sexual Activity: active (1) Sexual Partner: single partner(1) Number of Sexual Partners in the Past 6 Months: 1 (1) Contraception Method: none(1) Contraception Duration: Trying to conceive(1) SUBSTANCE USE: Smoking Statusnever smoker(1) Alcohol Use Statusalcohol never used (1) Street Drug/Inhalant/Medication Use Statusstreet drug/inhalants/medicatio n never used (1) Exposure to Second Hand Smokenone (1) HISTORY ATTESTATION: AttestationI have reviewed and confirmed nurse's/medic's notes for patient's medications, allergies, medical history, and surgical history REVIEW OF SYSTEMS: Additional Comments: 10 of the review systems questions were checked with the patient and are negative other than documented in the history of present illness. VITAL SIGNS: 2. Vital Signs: Date/TimeTemp (degrees F) (degrees F)Temp (degrees C) (degrees C)Heart Rate (beats/min) beats/minBP Systolic (mm Hg) SystolicBP Diastolic (mm Hg) Diastolic (mm Hg) 04-Jan-2019 10:[id number] Respiration (breaths/min) Respiration (breaths/min)SpO2 (%) SpO2 (%)Height (ft) Height (ft)Height (remainder in inches) Height (in)Height (cm) Height (cm) 2245804253.1 Height Method Height MethodWeight MethodBSA (m2)BMI (kg/m2) BMI (kg/m2) Weight (lbs) Weight (lbs) [phone] Weight (kg) Weight (kg)Presence of PainLocation LocationPain Rating 145.1complains of pain/discomfortabdomen5/ 10 PHYSICAL EXAMINATION: General Appearance CommentsPatient appears to be no acute distress and is nontoxic-appearing. Patient is morbidly obese. Skin CommentsThe skin is pink and intact without rash. Neck and Thyroid CommentsNeck is supple without meningismus. Eyes CommentsPupils are equal, round, reactive to light accommodation. Extraocular muscles are intact. Sclera white. Conjunctiva clear. Ears, Nose, Mouth and Throat CommentsOral nasal mucosa pink and moist. Tympanic membranes are unremarkable. Respiratory CommentsLungs are clear to auscultation bilaterally. Respirations are easy and symmetrical. Cardiovascular CommentsHeart regular rate and rhythm without murmurs, heaves or thrills Pulses CommentsPeripheral pulses are +2 over 4 and present in all 4 extremities. Edema Or Varicosities CommentsNo peripheral edema is noted. Negative Homans sign. No palpable cords. Gastrointestinal CommentsThe abdomen is soft, without rebound, rigidity or guarding. Bowel sounds are present in all 4 quadrants. There is no pulsatile masses palpated. There is no CVA tenderness noted. She does have some mild tenderness in the suprapubic area. Musculoskeletal CommentsNo focal areas of joint swelling or erythema is noted. Neurological CommentsCranial nerves 2 through 12 grossly intact. There is no focal neurologic deficits noted on exam. Psychiatric CommentsPatient has normal affect. LAB AND MICRO RESULTS (24 hours): General Hematology: 04-Jan-2019 11:15 CBC With Auto Diff ResultValueAbnRangeText WBC9.3[3.5 - 11.5 x10E9/L] RBC5.03[3.78 - 5.45 x10E12/L] Lqrouxnvta58.5[11.3 - 15.6 g/dL] Qiozcpxsoh35.4[34.7 - 44.9 %] MCV_76.3Image has been removed.[80.0 - 100.0 fL] MCH_24.8Image has been removed.[26.5 - 33.0 pg] MCHC_32.5Image has been removed.[32.6 - 36.0 g/dL] Platelets Cemao547[144 - 400 x10E9/L] Mean Plt Vol_10.5Image has been removed.[7.2 - 10.3 fL] RDW_18.3Image has been removed.[11.4 - 16.0 %] 04-Jan-2019 11:15 Manual Differential ResultValueAbnRangeText Neutrophils, Segmented_64[45 - 77 %] Lymphocytes_19[14 - 45 %] Monocytes_11[1 - 12 %] Eosinophils_6[0 - 8 %] Platelet Morphology_LG FORMS[NORMAL] Anisocytosis_SLIGHT Microcytes_FEW General Chemistry: 04-Jan-2019 11:15 Basic Metabolic Panel ResultValueAbnRangeText Sodium, Sjfqy510[136 - 144 mmol/L] Potassium, Level3.5[3.4 - 5.1 mmol/L] Ijimrbdm335[98 - 107 mmol/L] CO222[22 - 32 mmol/L] Anion Gap, Serum_11.0[5.0 - 19.0 mmol/L] Glucose, Ocuep518Nvmha has been removed.[70 - 100 mg/dL] Blood Urea Nitrogen, Serum10[8 - 26 mg/dL] Creatinine0.61[0.60 - 1.30 mg/dL] Calcium, Level9.2[8.1 - 10.1 mg/dL] BUN/Creatinine Ratio_16.4 Osmolality-Calc_274[ mOsm/kg] 04-Jan-2019 11:15 Beta HCG Quant ResultValueAbnRangeText Beta HCG Ouijs5559.0Image has been removed.[0.0 - 3.0 mIU/mL]Approximate Gestational Age (weeks) Approximate hCG Range 0.2 - 1 5 - 50 1 - 2 50 - 500 2 - 3 100 - 5,000 3 - 4 500 - 10,000 4 - 5 1,000 - 50,000 5 - 6 10,000 - 100,000 6 - 8 15,000 - 200,000 8 - 12 10,000 - 100,000 Urinalysis: 04-Jan-2019 11:00 Urinalysis W/ Microscopic ResultValueAbnRangeText Urine Appearance_Clear[Clear] Color_[Yellow]COLORLESS Urine Ph6.0[5.0 - 8.0] Urine Spec Gravity1.001[1.001 - 1.03] Urine GlucoseNegative[Negative ] Blood Urine_ModerateImage has been removed.[Negative] Urine KetonesNegative[Negative ] Urine Protein QualNegative[Negative] Urobilinogen<2.0[ - <2.0 mg/dL] Bilirubin, Urine_Negative[Negative] Leukocyte EsterTRACEImage has been removed.[Negative] Urine NitriteNegative[Negative ] WBC Count, Urine_2-5[0 - 5 /HPF] RBC Count, Urine_0-2[0 - 5 /HPF] Bacteria_1+Image has been removed.[Negative /HPF] Squamous Epith_TRACE[NONE /HPF] [facility] Blood Bank: 04-Jan-2019 11:00 Antibody Screen ResultValueAbnRangeText Antibody ScreenNeg 04-Jan-2019 11:00 Blood Type.. ResultValueAbnRangeText Blood Type..O POS DIAGNOSES/PROBLEM LIST: Problem KkqeRrmaLsgqzkRFU-[id number]-6 0 Threatened miscarriage in early pregnancyED KqXdfcpl530.03O20.0 DISCHARGE DISPOSITION: Disposition: discharged Discharge Type: home CONDITION ON DISCHARGE: Condition on Dispositionstable MEDICATION RECONCILIATION AND DISCHARGE MEDS: * Outpatient Medication Status not yet specified CO-SIGN/ATTESTATION: Comments/ Additional Findings: ED course: Patient presented to emergency room and due to complaints of pelvic cramping and vaginal bleeding. She believes that she was 7 weeks . She states that she does not plan to see her PLASTIC TUBING INSULATION SUPERVISOR later this week on Sunday. She states that she been multiple times, though has not been able to deliver any. Patient had basic blood work, urinalysis and pelvic ultrasound performed. Ultrasound reveals a single live intrauterine at 5 weeks 2 days with heart rate 113 bpm. Patient urinalysis does show bacteria and some white cells. The patient was discharged home with a prescription for Keflex and referred back to her PLASTIC TUBING INSULATION SUPERVISOR for follow-up. I did have a detailed discussion with the patient concerning her quantitative hCG and her lab results and ultrasound results as well. Prior to discharging the patient home. Electronic Signatures for Addendum Section: Juanjo Garsia) (Signed Addendum 04-Jan-2019 15:11) At 2:10 PM, was contacted by the radiologist concerning the patient's previously pelvic ultrasound and he stated that he was concerned that the patient may have a interstitial or cornual ectopic and recommended OB consultation. We then attempted to contact the patient at 1410, about this new finding noted on ultrasound. The meantime, I contacted Dr. Rosales . She felt that the patient did not necessarily need to come back to the ER. She wanted the patient to follow up in the office on Sunday to have a repeat pelvic ultrasound performed. She states that the patient needs to be educated on the signs and symptoms of ectopic rupture and if the patient develops any worsening pain or feels lightheaded that she needs to immediately return to the emergency department. I then contacted the patient at 1452 concerning plan of care including follow-up with Dr. Rosales on Sunday. I discussed with the patient the signs and symptoms of ectopic rupture and informed her of the seriousness of this disease process and that if she develops any worsening pain and/or feels lightheaded or weak that she needs to call 911 and come back to the emergency department. The patient was provided that phone number for the office and the address for Dr. Rosales and that she needs to be seen on Sunday to have a repeat ultrasound performed. The patient understood this. Electronic Signatures: Juanjo Garsia () (Signed 04-Jan-2019 15:05) Authored: Time Seen/ED Notes, Chief Complaint/Reason for Visit via Triage Note, Patient History, History Attestation, ROS, Vital Signs, Physical Exam, Lab Results Review, ED Disposition (REQUIRED), Attestation Last Updated: 04-Jan-2019 15:11 by Juanjo Garsia () References: 1. Data Referenced From Triage Note, Emergency 01/04/2019 10:19 AM Normal [facility] RUL/OB <14 WKS PREGNANCYon 0 01-04-2019 RUL/OB <14 WKS ADDENDUM 1 Patient Name: AMBIKA BROWN ADDENDUM: Upon further review, the gestational sac appears to be eccentrically located and is suspicious for interstitial/cornual ectopic . PLASTIC TUBING INSULATION SUPERVISOR consultation is highly recommended. Document Only: The critical information above was relayed directly by me by telephone to Juanjo Garsia on 01/04/2019 at 2:10 pm with readback verification. Dictated by: Electronically Signed by: Juanito Bowling Electronically Signed on: 01/04/2019 2:10 PM INITIAL REPORT Patient Name: AMBIKA BROWN STUDY: RUL/OB <14 WKS 01/04/2019 11:55 am INDICATION: 28 y/o F with Spotting and cramping. LMP: Unknown. COMPARISON: None. ACCESSION NUMBER(S): [id number] ORDERING CLINICIAN: JUANJO GARSIA TECHNIQUE: Routine ultrasound of the pelvis was performed. Evaluation of the female pelvis was performed by transabdominal and subsequent transvaginal technique. Static images were obtained for remote interpretation. FINDINGS: UTERUS AND GESTATIONAL SAC: There is a single intrauterine as evidenced by a gestational sac containing a pole and yolk sac. The mean sac diameter is measured at 0.74 cm which corresponds to an estimated gestational age of 5 weeks and 2 day(s) +/- 1 week. [place]-rump length was not measured by the wax molder. Doppler imaging demonstrates a heart rate of 113 beats per minute. No sizable subchorionic hemorrhage is seen. RIGHT OVARY: The right ovary was not identified by wax molder. LEFT OVARY: The left ovary appears normal in size and echogenicity, measuring 2.8 x 2.0 x 2.7 cm. Doppler imaging demonstrates flow to the left ovary. FREE FLUID: None. IMPRESSION: Single live intrauterine with an estimated gestational age of 5 weeks and 2 day(s) +/- 1 week. Dictated by: Electronically Signed by: Juanito Bowling Electronically Signed on: 01/04/2019 12:28 PM Normal [facility] RUL/US PREG UTERUS TRANSVon 01-04-2019 RUL/US PREG UTERUS TRANSV Patient Name: AMBIKA BROWN STUDY: RUL/US PREG UTERUS TRANSV 01/04/2019 12:42 pm INDICATION: 28 y/o F with SPOTTING AND CRAMPING. LMP: Unknown. COMPARISON: Please refer to accession number [id number] ACCESSION NUMBER(S): [id number] ORDERING CLINICIAN: JUANJO GARSIA TECHNIQUE: Please refer to accession number [id number] FINDINGS: Please refer to accession number [id number] IMPRESSION: Please refer to accession number [id number] Dictated by: Electronically Signed by: Juanito Bowling Electronically Signed on: 01/04/2019 2:09 PM Normal [facility] RUMon 01-04-2019 Bacteria LM.HPF (Urine sed) [#/Area] 1+ /HPF Abnormal Negative [facility] Bilirubin [Mass/Vol] Negative Normal Negative [facility] Blood Moderate Abnormal Negative [facility] Color (U) COLORLESS Normal Yellow [facility] Glucose [Mass/Vol] Negative Normal Negative [facility] Ketones Ql (U) Negative Normal Negative [facility] Leukocyte Flavia TRACE Abnormal Negative [facility] Nitrite Ql (U) Negative Normal Negative [facility] pH (U) 6.0 [pH] Normal 5.0 - 8.0 [facility] Protein [Mass/Vol] Negative Normal Negative [facility] RBC/Hpf 0-2 Normal 0-5 [facility] Squamous Epith TRACE Normal NONE [facility] Ur Appearance Clear Normal Clear [facility] Urine Spec [place] 1.001 Normal 1.001-1.03 [facility] Urobilinogen Qn (U) <2.0 Normal <2.0 [facility] WBC/Hpf 2-5 Normal 0-5 [facility] XDifon 01-04-2019 Anisocytosis Ql (Bld) SLIGHT Normal [facility] Eosinophils/100 WBC (Bld) 6 % Normal 0-8 [facility] Lymphocytes/100 WBC (Bld) 19 % Normal 14-45 [facility] Microcytes FEW Normal [facility] [facility] Monocytes/100 WBC (Bld) 11 % Normal 1-12 [facility] Platelet morphology finding Nom (Bld) LG FORMS Normal NORMAL [facility] Segs 64 % Normal 45-77 [facility] zCBCDon 01-04-2019 Erythrocyte distribution width (RBC) [Ratio] 18.3 % High 11.4-16.0 [facility] Hematocrit (Bld) [Volume fraction] 38.4 % Normal 34.7-44.9 [facility] Hemoglobin (Bld) [Mass/Vol] 12.5 g/dL Normal 11.3-15.6 [facility] MCH (RBC) [Entitic mass] 24.8 pg Low 26.5-33.0 [facility] MCHC (RBC) [Mass/Vol] 32.5 g/dL Low 32.6-36.0 [facility] MCV (RBC) [Entitic vol] 76.3 fL Low 80.0-100.0 [facility] Mean Plt Vol 10.5 fL High 7.2-10.3 [facility] Platelets (Bld) [#/Vol] 205 10*3/uL Normal 144-400 [facility] RBC (Bld) [#/Vol] 5.03 x10E12/L Normal 3.78-5.45 [facility] WBC (Bld) [#/Vol] 9.3 10*3/uL Normal 3.5-11.5 [facility] BHCGon 12-25-2018 Beta HCG Quant 474.4 mIU/mL High 0.0-3.0 [facility] Comment on above: Result Comment: Approximate Gestational Age (weeks) Approximate hCG Range 0.2 - 1 5 - 50 1 - 2 50 - 500 2 - 3 100 - 5,000 3 - 4 500 - 10,000 4 - 5 1,000 - 50,000 5 - 6 10,000 - 100,000 6 - 8 15,000 - 200,000 8 - 12 10,000 - 100,000 [facility] Amp RNAon 12-25-2018 Chlam Amp RNA Negative Normal Negative [facility] Comment on above: Result Comment: Hologic? Aptima Combo 2 Assay is an in vitro nucleic acid amplification test for the detection of ribosomal RNA from Chlamydia trachomatis (CT) and Neisseria gonorrhoeae (GC) to aid in the diagnosis of chlamydial and/or gonococcal urogenital disease. This assay is FDA-approved for testing on female endocervical swabs, vaginal swabs, ThinPrep liquid-based pap samples, male urine samples and urethral swabs. Performance characteristics for this assay on specific feu-HCY-fnrhjtlc sample types (female urine) have been validated by [facility]. Performance has not been evaluated for patients less than 14 years of age. Results should be interpreted in conjunction with other clinical information. GC AMP RNAon 12-25-2018 GC Amp RNA Negative Normal Negative [facility] Provider Note - EDon 019 Provider Note - ED TIME SEEN: Time [id number] 00:50 CHIEF COMPLAINT/REASON FOR VISIT: REASON FOR VISITSevere cramping started tonight. 5 weeks (1) HISTORY OF PRESENT ILLNESS - ADDITIONAL: ComplaintChief complaint: Pelvic cramping History of chief complaint: This 28-year-old female presents to emergency department complaining of some pelvic cramping on and off for the last couple of days, increased this evening. Patient states she is approximately 5 weeks . Last menstrual cycle was on November 16. States she did see her OB doctor on Sunday and had her hormone levels drawn and was positive with a quantitative hCG at 66. Patient denies any associated vaginal bleeding or discharge. No dysuria, hematuria, frequency or urgency. States bowels have been moving her somewhat chronically irregular between constipation and diarrhea, not new or different. Patient denies any fevers or chills. No chest pain, palpitation, shortness of breath, weak or dizzy. Patient has had previous cholecystectomy and no other abdominal surgeries. Patient states she was concerned as she did have a previous miscarriage at 6 weeks to get checked. ALLERGIES: Allergies: Compazine: Drug, Unknown, Active No Known Allergies: Inactive OUTPATIENT MEDICATION, REVIEW/ADD MEDICATIONS: * Incomplete Medication History as of 25-Dec-2018 00:40 documented in Structured Notes PAST MEDICAL HISTORY: Past Medical History: noncontributory (1) Resp: ASTHMA(1) GI: GASTROESOPHAGEAL REFLUX DISEASE(1) Head, Eye: MIGRAINES(1) Neuro/Psych: SEIZURE DISORDER(1) Additional Past Medical History: seizure related migraines(1) PAST SURGICAL HISTORY: GI/Hepatobiliary: CHOLECYSTECTOMY(1) Eye/ENT: TONSILLECTOMY(1) Additional Past Surgical History: wisdom teeth(1) FAMILY HISTORY: Family History: positive (1) Conditions: hypertension, cancer, diabetes mellitus(1) Family Member with Hypertension: father(1) Family Member with Cancer: maternal grandmother, paternal grandmother, paternal grandfather(1) Maternal Grandmother's Cancer Type: uterine(1) Paternal Grandmother's Cancer Type: bladder(1) Paternal Grandfather's Cancer Type: prostate(1) Family Member with Diabetes: maternal grandmother, maternal grandfather(1) PAST MENSTRUAL HISTORY: Age at Menarche: 12 year(s)(1) Menstrual Cycle Duration: 4 day(s)(1) Color: bright red(1) Menstrual Cycles: regular (1) Bleeding: heavy(1) Clots: frequently(1) Additional Past Menstrual History: Heavy periods, cramping(1) SEXUAL AND CONTRACEPTION HISTORY: Sexual Activity: active (1) Sexual Partner: single partner(1) Number of Sexual Partners in the Past 6 Months: 1 (1) Contraception Method: none(1) Contraception Duration: Trying to conceive(1) SUBSTANCE USE: Smoking Statusnever smoker(1) Alcohol Use Statusalcohol never used (1) Street Drug/Inhalant/Medication Use Statusstreet drug/inhalants/medicatio n never used (1) Exposure to Second Hand Smokenone (1) HISTORY ATTESTATION: AttestationI have reviewed and confirmed nurse's/medic's notes for patient's medications, allergies, medical history, and surgical history REVIEW OF SYSTEMS: Statement: Review of Systems as stated in History of Present Illness otherwise at least 10 systems reviewed and found Negative. VITAL SIGNS: 2. Vital Signs: Date/TimeTemp (degrees F) (degrees F)Temp (degrees C) (degrees C)Temperature Site SiteHeart Rate (beats/min) beats/minBP Systolic (mm Hg) Systolic 25-Dec-2018 00:[id number] 36 BP Diastolic (mm Hg) Diastolic (mm Hg)BP SourceRespiration (breaths/min) Respiration (breaths/min)SpO2 (%) SpO2 (%)Height (ft) Height (ft) 86forearm, left; [id number] Height (remainder in inches) Height (in)Height (cm) Height (cm)Height Method Height MethodWeight MethodBSA (m2) 7170.0yeaqztnotvof0.62 BMI (kg/m2) BMI (kg/m2)Weight (lbs) Weight (lbs)Weight (kg) Weight (kg) Presence of PainLocation Location 50.7911800.1complains of pain/discomfortabdomen; lower Pain Rating 6/10 PHYSICAL EXAMINATION: General Appearance Commentspatient is awake, alert, interactive, appropriate, nontoxic, no distress Skin Commentswarm and dry. No acute-appearing rash, lesions or ulcerations Neck and Thyroid Commentsneck is supple. No gross adenopathy, JVD or meningeal signs Eyes Commentspupils are equal and reactive. Extraocular muscles are intact. Sclera white. Conjunctivae are pink Ears, Nose, Mouth and Throat Commentsoropharyngeal cavity is pink with good moisture. The airway is widely patent Respiratory Commentslungs are clear to auscultation with equal breath sounds bilaterally. No active wheezes, rales or rhonchi. No respiratory distress Cardiovascular Commentsheart is regular rate and rhythm. No gross murmurs rubs or clicks Edema Or Varicosities Commentslower extremities reveal no gross edema, no calf tenderness. No asymmetry Gastrointestinal Commentsabdomen is obese soft nontender to palpation throughout. No McBurney's point tenderness. No Gamble's sign. There are good bowel sounds. No rebound, rigidity or guarding. No firm or pulsatile masses. No gross distention. Femoral pulses are full and symmetric Genitourinary CommentsPelvic examination: Examination of the external genitalia reveals no rash, lesions, ulcerations. Speculum examination reveals no vaginal discharge or bleeding. No mucosal ulcerations or sores. Bimanual examination reveals no cervical motion tenderness. No pain on palpation over the uterus or adnexal area Musculoskeletal Commentsback is nontender. No costovertebral angle tenderness LAB AND MICRO RESULTS (24 hours): General Chemistry: 25-Dec-2018 02:32 Beta HCG Quant ResultValueAbnRangeText Beta HCG Syxvb651.4Image has been removed.[0.0 - 3.0 mIU/mL]Approximate Gestational Age (weeks) Approximate hCG Range 0.2 - 1 5 - 50 1 - 2 50 - 500 2 - 3 100 - 5,000 3 - 4 500 - 10,000 4 - 5 1,000 - 50,000 5 - 6 10,000 - 100,000 6 - 8 15,000 - 200,000 8 - 12 10,000 - 100,000 Urinalysis: 25-Dec-2018 02:32 Urinalysis W/ Microscopic ResultValueAbnRangeText Urine Appearance_Clear[Clear] Color_Yellow[Yellow] Urine Ph5.0[5.0 - 8.0] Urine Spec Gravity1.021[1.001 - 1.03] Urine GlucoseNegative[Negative ] Blood Urine_Negative[Negative] Urine KetonesNegative[Negative ] Urine Protein QualNegative[Negative] Urobilinogen<2.0[ - <2.0 mg/dL] Bilirubin, Urine_Negative[Negative] Leukocyte EsterTRACEImage has been removed.[Negative] Urine NitriteNegative[Negative ] WBC Count, Urine_10-25Image has been removed.[0 - 5 /HPF] RBC Count, Urine_2-5[0 - 5 /HPF] Squamous Epith_TRACE[NONE /HPF] Mucus_2+[NONE /LPF] General Microbiology: 25-Dec-2018 02:33 Wet Prep ResultValueAbnRangeText Source_Vag Final Report_Few White Blood Cells No clue cells No Yeast No Trichomonas vaginalis PROGRESS NOTE: ED Course: Patient observed in the emergency Department, resting comfortably, no distress. Repeat abdominal examinations remained benign. Urinalysis was checked and shows no acute signs of infection. A quantitative hCG level was repeated and is progressive at 464. Wanted to levels too low for any benefit of ultrasound. At this point. I advised patient I can't exclude the possibility of a miscarriage but not seeing any worrisome signs of this point, she will need to follow along with her [employer] doctor for repeat hormone level as scheduled her closely. Tylenol only for discomfort and return if any change or worsening, increasing pain, bleeding, weak or dizzy. Diagnosis: 1. Pelvic cramping in first trimester /threatened miscarriage Disposition: Patient discharged home with instructions in stable condition DISCHARGE DISPOSITION: Disposition: discharged Discharge Type: home CONDITION ON DISCHARGE: Condition on Dispositionstable MEDICATION RECONCILIATION AND DISCHARGE MEDS: * Incomplete Medication History as of 25-Dec-2018 00:40 documented in Structured Notes MedicationQuantityRefill sSubmitted By Stuart Santana Electronic Signatures: Hailey Ro () (Signed 29-Dec-2018 18:41) Authored: Time Seen/ED Notes, Chief Complaint/Reason for Visit via Triage Note, Patient History, History Attestation, ROS, Vital Signs, Physical Exam, Lab Results Review, Progress Note, ED Disposition (REQUIRED), Attestation Last Updated: 29-Dec-2018 18:41 by Hailey Ro (DO) References: 1. Data Referenced From Triage Note, Emergency 12/25/2018 12:35 AM Normal [facility] RUMon 12-25-2018 Bilirubin [Mass/Vol] Negative Normal Negative [facility] Blood Negative Normal Negative [facility] Color (U) Yellow Normal Yellow [facility] Glucose [Mass/Vol] Negative Normal Negative [facility] Ketones Ql (U) Negative Normal Negative [facility] Leukocyte Flavia TRACE Abnormal Negative [facility] Mucus Ql (Urine sed) 2+ /LPF Normal NONE [facility] Nitrite Ql (U) Negative Normal Negative [facility] pH (U) 5.0 [pH] Normal 5.0 - 8.0 [facility] Protein [Mass/Vol] Negative Normal Negative [facility] RBC/Hpf 2-5 Normal 0-5 [facility] Squamous Epith TRACE Normal NONE [facility] Ur Appearance Clear Normal Clear [facility] Urine Spec [place] 1.021 Normal 1.001-1.03 [facility] Urobilinogen Qn (U) <2.0 Normal <2.0 [facility] WBC/Hpf 10-25 Abnormal 0-5 [facility] Wet Prepon 12-25-2018 Wet Prep SOURCE: Vag (Few Whi te Blood Cells No clue cells No Yeast No Trichomonas vaginalis) Normal [facility] Provider Note - EDon 019 Provider Note - ED TIME SEEN: Time [id number] 16:02 CHIEF COMPLAINT/REASON FOR VISIT: Chief ComplaintMultiple injuries REASON FOR VISITStatus post fall Historianpatient HISTORY OF PRESENT ILLNESS - ADDITIONAL: [id number] female presents to the Emergency Department today complaining of right arm, lower back, and right ankle pain status post fall. Reports that she twisted her right ankle while going down outside stairs that were covered in leaves causing her to lose her balance and fall. Reports that her right arm got caught behind her and she suffered scrapes and she fell down approximately 6 stairs. Reports that she twisted her back in the process as well. Denies hitting her head, loss of consciousness, or seizure like activity. Denies any associated headache, neck pain, chest pain, shortness of breath, abdominal pain, nausea, vomiting, diarrhea, constipation, urinary symptoms, paresthesias, focal weakness or shortness, or problems with bowel or bladder function. Last tetanus shot was within the past 4-5 years. ALLERGIES: Allergies: Compazine: Drug, Unknown, Active No Known Allergies: Inactive OUTPATIENT MEDICATION, REVIEW/ADD MEDICATIONS: * Patient Currently Takes Medications as of 12-Mar-2018 16:15 documented in Structured Notes PAST MEDICAL HISTORY: Past Medical History: noncontributory (1) Resp: ASTHMA(1) GI: GASTROESOPHAGEAL REFLUX DISEASE(1) Head, Eye: MIGRAINES(1) Neuro/Psych: SEIZURE DISORDER(1) Additional Past Medical History: seizure related migraines(1) PAST SURGICAL HISTORY: GI/Hepatobiliary: CHOLECYSTECTOMY(1) Eye/ENT: TONSILLECTOMY(1) Additional Past Surgical History: wisdom teeth(1) FAMILY HISTORY: Family History: positive (1) Conditions: hypertension, cancer, diabetes mellitus(1) Family Member with Hypertension: father(1) Family Member with Cancer: maternal grandmother, paternal grandmother, paternal grandfather(1) Maternal Grandmother's Cancer Type: uterine(1) Paternal Grandmother's Cancer Type: bladder(1) Paternal Grandfather's Cancer Type: prostate(1) Family Member with Diabetes: maternal grandmother, maternal grandfather(1) PAST MENSTRUAL HISTORY: Age at Menarche: 12 year(s)(1) Menstrual Cycle Duration: 4 day(s)(1) Color: bright red(1) Menstrual Cycles: regular (1) Bleeding: heavy(1) Clots: frequently(1) Additional Past Menstrual History: Heavy periods, cramping(1) SEXUAL AND CONTRACEPTION HISTORY: Sexual Activity: active (1) Sexual Partner: single partner(1) Number of Sexual Partners in the Past 6 Months: 1 (1) Contraception Method: none(1) Contraception Duration: Trying to conceive(1) SUBSTANCE USE: Smoking Statusnever smoker(1) Alcohol Use Statusalcohol never used (1) Street Drug/Inhalant/Medication Use Statusstreet drug/inhalants/medicatio n never used (1) Exposure to Second Hand Smokenone (1) HISTORY ATTESTATION: AttestationI have reviewed and confirmed nurse's/medic's notes for patient's medications, allergies, medical history, and surgical history REVIEW OF SYSTEMS: Statement: Review of Systems as stated in History of Present Illness otherwise at least 10 systems reviewed and found Negative. VITAL SIGNS: 2. Vital Signs: Date/TimeTemp (degrees F) (degrees F)Temp (degrees C) (degrees C)Temperature Site SiteHeart Rate (beats/min) beats/minBP Systolic (mm Hg) Systolic 03-Dec-2018 15:[id number] BP Diastolic (mm Hg) Diastolic (mm Hg)Respiration (breaths/min) Respiration (breaths/min)SpO2 (%) SpO2 (%)O2 Therapy Delivery MethodHeight (ft) Height (ft) [id number] Height (remainder in inches) Height (in)Height (cm) Height (cm)BSA (m2)BMI (kg/m2) BMI (kg/m2)Weight (lbs) Weight (lbs) 7170.12.6250.1320 Weight (kg) Weight (kg)Presence of PainPain Rating 145.1complains of pain/discomfort9/10 PHYSICAL EXAMINATION: General Appearance CommentsWell appearing patient with no acute distress. Skin CommentsMultiple abrasions noted to the right upper extremity, bilateral knees, and right lower leg. No rashes, lesions, petechiae, or purpura. No signs of infection. Neck and Thyroid CommentsSupple without lymphadenopathy. No meningeal signs. Eyes CommentsBilateral conjunctiva without injection, discharge, or drainage. PERRL with consensual pupil response bilaterally. EOM's are intact without any signs of entrapment. Ears, Nose, Mouth and Throat CommentsBilateral auditory canals are non-inflammed and non-reddened. Bilateral TM's are pearly britt with good light reflex. Septum is midline without deviation. Turbinates are non-inflammed and not reddened. Mucous membranes are moist. All teeth are intact. Uvula is midline without deviation and rises upon phonation. Tonsils are 1+ without exudate bilaterally. Respiratory CommentsRespirations are spontaneous and nonlabored. Lung sounds are clear in all anderson anteriorly and posteriorly. Cardiovascular CommentsRRR without murmur, click, or rub. Edema Or Varicosities CommentsNo redness, warmth, or edema. Gastrointestinal CommentsBS active x 4 quads. Abdomen is soft, nondistended, and nontender to palpation. (-) Gamble's sign. (-)McBurney's sign. There is no rebound, rigidity, guarding, or other peritoneal signs. Genitourinary CommentsNo suprapubic or CVA tenderness noted. Musculoskeletal CommentsNo obvious deformity, ecchymosis, edema noted to all 4 extremities. Does have slight tenderness over the lateral malleolus. No tenderness over the right fifth metatarsal, medial malleolus, or right lower leg. No spinous process tenderness, but does have bilateral paraspinal muscle tenderness noted to thre lumbar sacral region. No saddle paresthesias. Negative straight leg raises. Able to plantarflex and dorsiflex bilateral great toes without difficulty. Neurological CommentsAlert and Oriented 3. Follows commands well. Cranial nerves II through XII are intact. Hand grasps and push/pulls of upper and lower extremities are equally strength bilaterally. DTRs are 2+ and intact bilaterally. Gait is steady and strong. Lymphatics CommentsNo supra or infraclavicular lymphadenopathy noted. Psychiatric Commentsalert, interactive and appropriate. DIAGNOSTIC TESTS AND OTHER RESULTS (24 hours): General Radiology: 03-Dec-2018 17:35 XR Ankle Complete 3 Views-Right ResultText PACS Viewer XR Ankle Complete 3 Views-RightMRN: [id number] Patient Name: AMBIKA BROWN STUDY: RAD/HUMERUS MIN 2V-RT; RAD/SHOULDER MIN 2V-RT; RAD/FOREARM AP/LAT-RT; RAD/ELBOW MIN 3V-RT; RAD/ANKLE COMP MIN 3V-RT; RAD/SP LUMB W/OBL MIN 4V; 12/03/2018 5:19 pm; 12/03/2018 5:22 pm; 12/03/2018 5:21 pm; 12/03/2018 5:20 pm; 12/03/2018 5:23 pm INDICATION: trauma. COMPARISON: None ACCESSION NUMBER(S): [id number]; [id number]; [id number]; [id number]; [id number]; [id number] ORDERING CLINICIAN: DARIUSZ PURDY FINDINGS: Two views right humerus Two views right shoulder Four views right elbow Two views right forearm There is no osseous, articular, or soft tissue abnormality identified in the visualized upper extremity on the right. Lumbar spine five views Alignment normal. No fracture seen. Disc spaces are normally preserved. Right ankle three views Mild lateral-sided soft tissue swelling without evidence of other osseous abnormality. No fracture seen. IMPRESSION: Mild right ankle soft tissue swelling. Unremarkable radiographic appearance of the lumbar spine rib. Unremarkable radiographic appearance of the right upper extremity. Dictated by: Electronically Signed by: Richy Alejo Electronically Signed on: 12/03/2018 5:35 PM 03-Dec-2018 17:35 XR Elbow AP, Lateral, + Oblique-Right ResultText PACS Viewer XR Elbow AP, Lateral, + Oblique-RightMRN: [id number] Patient Name: AMBIKA BROWN STUDY: RAD/HUMERUS MIN 2V-RT; RAD/SHOULDER MIN 2V-RT; RAD/FOREARM AP/LAT-RT; RAD/ELBOW MIN 3V-RT; RAD/ANKLE COMP MIN 3V-RT; RAD/SP LUMB W/OBL MIN 4V; 12/03/2018 5:19 pm; 12/03/2018 5:22 pm; 12/03/2018 5:21 pm; 12/03/2018 5:20 pm; 12/03/2018 5:23 pm INDICATION: trauma. COMPARISON: None ACCESSION NUMBER(S): [id number]; [id number]; [id number]; [id number]; [id number] ORDERING CLINICIAN: DARIUSZ PURDY FINDINGS: Two views right humerus Two views right shoulder Four views right elbow Two views right forearm There is no osseous, articular, or soft tissue abnormality identified in the visualized upper extremity on the right. Lumbar spine five views Alignment normal. No fracture seen. Disc spaces are normally preserved. Right ankle three views Mild lateral-sided soft tissue swelling without evidence of other osseous abnormality. No fracture seen. IMPRESSION: Mild right ankle soft tissue swelling. Unremarkable radiographic appearance of the lumbar spine rib. Unremarkable radiographic appearance of the right upper extremity. Dictated by: Electronically Signed by: Richy Alejo Electronically Signed on: 12/03/2018 5:35 PM 03-Dec-2018 17:35 XR Forearm-Right ResultText PACS Viewer XR Forearm-RightMRN: [id number] Patient Name: AMBIKA BROWN STUDY: RAD/HUMERUS MIN 2V-RT; RAD/SHOULDER MIN 2V-RT; RAD/FOREARM AP/LAT-RT; RAD/ELBOW MIN 3V-RT; RAD/ANKLE COMP MIN 3V-RT; RAD/SP LUMB W/OBL MIN 4V; 12/03/2018 5:19 pm; 12/03/2018 5:22 pm; 12/03/2018 5:21 pm; 12/03/2018 5:20 pm; 12/03/2018 5:23 pm INDICATION: trauma. COMPARISON: None ACCESSION NUMBER(S): [id number]; [id number]; [id number]; [id number]; [id number]; [id number] ORDERING CLINICIAN: DARIUSZ PURDY FINDINGS: Two views right humerus Two views right shoulder Four views right elbow Two views right forearm There is no osseous, articular, or soft tissue abnormality identified in the visualized upper extremity on the right. Lumbar spine five views Alignment normal. No fracture seen. Disc spaces are normally preserved. Right ankle three views Mild lateral-sided soft tissue swelling without evidence of other osseous abnormality. No fracture seen. IMPRESSION: Mild right ankle soft tissue swelling. Unremarkable radiographic appearance of the lumbar spine rib. Unremarkable radiographic appearance of the right upper extremity. Dictated by: Electronically Signed by: Richy Alejo Electronically Signed on: 12/03/2018 5:35 PM 03-Dec-2018 17:35 XR Humerus-Right ResultText PACS Viewer XR Humerus-RightMRN: [id number] Patient Name: AMBIKA BROWN STUDY: RAD/HUMERUS MIN 2V-RT; RAD/SHOULDER MIN 2V-RT; RAD/FOREARM AP/LAT-RT; RAD/ELBOW MIN 3V-RT; RAD/ANKLE COMP MIN 3V-RT; RAD/SP LUMB W/OBL MIN 4V; 12/03/2018 5:19 pm; 12/03/2018 5:22 pm; 12/03/2018 5:21 pm; 12/03/2018 5:20 pm; 12/03/2018 5:23 pm INDICATION: trauma. COMPARISON: None ACCESSION NUMBER(S): [id number]; [id number]; [id number]; [id number]; [id number]; [id number] ORDERING CLINICIAN: DARIUSZ PURDY FINDINGS: Two views right humerus Two views right shoulder Four views right elbow Two views right forearm There is no osseous, articular, or soft tissue abnormality identified in the visualized upper extremity on the right. Lumbar spine five views Alignment normal. No fracture seen. Disc spaces are normally preserved. Right ankle three views Mild lateral-sided soft tissue swelling without evidence of other osseous abnormality. No fracture seen. IMPRESSION: Mild right ankle soft tissue swelling. Unremarkable radiographic appearance of the lumbar spine rib. Unremarkable radiographic appearance of the right upper extremity. Dictated by: Electronically Signed by: Richy Alejo Electronically Signed on: 12/03/2018 5:35 PM 03-Dec-2018 17:35 XR Lumbar Spine AP, Lateral, + Obliques ResultText PACS Viewer XR Lumbar Spine AP, Lateral, + ObliquesMRN: [id number] Patient Name: AMBIKA BROWN STUDY: RAD/HUMERUS MIN 2V-RT; RAD/SHOULDER MIN 2V-RT; RAD/FOREARM AP/LAT-RT; RAD/ELBOW MIN 3V-RT; RAD/ANKLE COMP MIN 3V-RT; RAD/SP LUMB W/OBL MIN 4V; 12/03/2018 5:19 pm; 12/03/2018 5:22 pm; 12/03/2018 5:21 pm; 12/03/2018 5:20 pm; 12/03/2018 5:23 pm INDICATION: trauma. COMPARISON: None ACCESSION NUMBER(S): [id number]; [id number]; [id number]; [id number]; [id number]; [id number] ORDERING CLINICIAN: DARIUSZ PURDY FINDINGS: Two views right humerus Two views right shoulder Four views right elbow Two views right forearm There is no osseous, articular, or soft tissue abnormality identified in the visualized upper extremity on the right. Lumbar spine five views Alignment normal. No fracture seen. Disc spaces are normally preserved. Right ankle three views Mild lateral-sided soft tissue swelling without evidence of other osseous abnormality. No fracture seen. IMPRESSION: Mild right ankle soft tissue swelling. Unremarkable radiographic appearance of the lumbar spine rib. Unremarkable radiographic appearance of the right upper extremity. Dictated by: Electronically Signed by: Richy Alejo Electronically Signed on: 12/03/2018 5:35 PM 03-Dec-2018 17:35 XR Shoulder 2 Views-Right ResultText PACS Viewer XR Shoulder 2 Views-RightMRN: [id number] Patient Name: AMBIKA BROWN STUDY: RAD/HUMERUS MIN 2V-RT; RAD/SHOULDER MIN 2V-RT; RAD/FOREARM AP/LAT-RT; RAD/ELBOW MIN 3V-RT; RAD/ANKLE COMP MIN 3V-RT; RAD/SP LUMB W/OBL MIN 4V; 12/03/2018 5:19 pm; 12/03/2018 5:22 pm; 12/03/2018 5:21 pm; 12/03/2018 5:20 pm; 12/03/2018 5:23 pm INDICATION: trauma. COMPARISON: None ACCESSION NUMBER(S): [id number]; [id number]; [id number]; [id number]; [id number]; [id number] ORDERING CLINICIAN: DARIUSZ PURDY FINDINGS: Two views right humerus Two views right shoulder Four views right elbow Two views right forearm There is no osseous, articular, or soft tissue abnormality identified in the visualized upper extremity on the right. Lumbar spine five views Alignment normal. No fracture seen. Disc spaces are normally preserved. Right ankle three views Mild lateral-sided soft tissue swelling without evidence of other osseous abnormality. No fracture seen. IMPRESSION: Mild right ankle soft tissue swelling. Unremarkable radiographic appearance of the lumbar spine rib. Unremarkable radiographic appearance of the right upper extremity. Dictated by: Electronically Signed by: Richy Alejo Electronically Signed on: 12/03/2018 5:35 PM PROGRESS NOTE: ED Course: Patient was seen and evaluated by myself. Given injections of Toradol, Norflex and Zofran by mouth with improvement in her pain and nausea. Instructed to ice and elevate the sore areas as much as possible. Given prescriptions for Naprosyn and Flexeril. No contraindications to NSAIDs are noted. Wounds were cleansed and Bacitracin, Adaptic, and gauze dressings were applied. Given abrasions instructions. Follow-up with her doctor in one week. Return if worse in any way. Discharged in stable condition with computer-generated instructions. Diagnostic Impression: 1. Multiple contusions and abrasions status post fall. 2. IM injection. 3. Prescription therapy DIAGNOSES/PROBLEM LIST: Problem [id number] 0 Abrasions of multiple sitesED EwRygqix113.0T07.XXXA Multiple contusionsED FpDclika900.8T07.XXXA DISCHARGE DISPOSITION: Disposition: discharged Discharge Type: home CONDITION ON DISCHARGE: Condition on Dispositionstable MEDICATION RECONCILIATION AND DISCHARGE MEDS: * Outpatient Medication Status not yet specified CO-SIGN/ATTESTATION: Attestation: Supervising physician on site, available for consultation, non-participatory in the evaluation of the care of this patient. Electronic Signatures: Cesar Martinez (DO) (Signed 03-Dec-2018 20:06) Co-Signer: Diagnostic Imaging Results Review, Progress Note, ED Disposition (REQUIRED), Attestation Ric Purdy (FORMULA CHECKER-SCHEDULE CHECKER) (Signed 03-Dec-2018 18:57) Entered: Time Seen/ED Notes, Chief Complaint/Reason for Visit via Triage Note, Patient History, History Attestation, ROS, Vital Signs, Physical Exam, Diagnostic Imaging Results Review, Progress Note, ED Disposition (REQUIRED), Attestation Authored: Time Seen/ED Notes, Chief Complaint/Reason for Visit via Triage Note, Patient History, History Attestation, ROS, Physical Exam, Diagnostic Imaging Results Review, Progress Note, ED Disposition (REQUIRED), Attestation Last Updated: 03-Dec-2018 20:06 by Cesar Martinez (DO) References: 1. Data Referenced From Triage Note, Emergency 12/03/2018 3:42 PM Normal [facility] RAD/ANKLE COMP MIN 3V-RTon 0 12-03-2018 RAD/ANKLE COMP MIN 3V-RT Patient Name: AMBIKA BROWN STUDY: RAD/HUMERUS MIN 2V-RT; RAD/SHOULDER MIN 2V-RT; RAD/FOREARM AP/LAT-RT; RAD/ELBOW MIN 3V-RT; RAD/ANKLE COMP MIN 3V-RT; RAD/SP LUMB W/OBL MIN 4V; 12/03/2018 5:19 pm; 12/03/2018 5:22 pm; 12/03/2018 5:21 pm; 12/03/2018 5:20 pm; 12/03/2018 5:23 pm INDICATION: trauma. COMPARISON: None ACCESSION NUMBER(S): [id number]; [id number]; [id number]; [id number]; [id number]; [id number] ORDERING CLINICIAN: DARIUSZ PURDY FINDINGS: Two views right humerus Two views right shoulder Four views right elbow Two views right forearm There is no osseous, articular, or soft tissue abnormality identified in the visualized upper extremity on the right. Lumbar spine five views Alignment normal. No fracture seen. Disc spaces are normally preserved. Right ankle three views Mild lateral-sided soft tissue swelling without evidence of other osseous abnormality. No fracture seen. IMPRESSION: Mild right ankle soft tissue swelling. Unremarkable radiographic appearance of the lumbar spine rib. Unremarkable radiographic appearance of the right upper extremity. Dictated by: Electronically Signed by: Richy Alejo Electronically Signed on: 12/03/2018 5:35 PM [facility] RAD/ELBOW MIN 3V-RTon 2018 RAD/ELBOW MIN 3V-RT Patient Name: AMBIKA BROWN STUDY: RAD/HUMERUS MIN 2V-RT; RAD/SHOULDER MIN 2V-RT; RAD/FOREARM AP/LAT-RT; RAD/ELBOW MIN 3V-RT; RAD/ANKLE COMP MIN 3V-RT; RAD/SP LUMB W/OBL MIN 4V; 12/03/2018 5:19 pm; 12/03/2018 5:22 pm; 12/03/2018 5:21 pm; 12/03/2018 5:20 pm; 12/03/2018 5:23 pm INDICATION: trauma. COMPARISON: None ACCESSION NUMBER(S): [id number]; [id number]; [id number]; [id number]; [id number]; [id number] ORDERING CLINICIAN: DARIUSZ PURDY FINDINGS: Two views right humerus Two views right shoulder Four views right elbow Two views right forearm There is no osseous, articular, or soft tissue abnormality identified in the visualized upper extremity on the right. Lumbar spine five views Alignment normal. No fracture seen. Disc spaces are normally preserved. Right ankle three views Mild lateral-sided soft tissue swelling without evidence of other osseous abnormality. No fracture seen. IMPRESSION: Mild right ankle soft tissue swelling. Unremarkable radiographic appearance of the lumbar spine rib. Unremarkable radiographic appearance of the right upper extremity. Dictated by: Electronically Signed by: Richy Alejo Electronically Signed on: 12/03/2018 5:35 PM [facility] RAD/FOREARM AP/LAT-RTon 11-09 RAD/FOREARM AP/LAT-RT Patient Name: AMBIKA BROWN STUDY: RAD/HUMERUS MIN 2V-RT; RAD/SHOULDER MIN 2V-RT; RAD/FOREARM AP/LAT-RT; RAD/ELBOW MIN 3V-RT; RAD/ANKLE COMP MIN 3V-RT; RAD/SP LUMB W/OBL MIN 4V; 12/03/2018 5:19 pm; 12/03/2018 5:22 pm; 12/03/2018 5:21 pm; 12/03/2018 5:20 pm; 12/03/2018 5:23 pm INDICATION: trauma. COMPARISON: None ACCESSION NUMBER(S): [id number]; [id number]; [id number]; [id number]; [id number]; [id number] ORDERING CLINICIAN: DARIUSZ PURDY FINDINGS: Two views right humerus Two views right shoulder Four views right elbow Two views right forearm There is no osseous, articular, or soft tissue abnormality identified in the visualized upper extremity on the right. Lumbar spine five views Alignment normal. No fracture seen. Disc spaces are normally preserved. Right ankle three views Mild lateral-sided soft tissue swelling without evidence of other osseous abnormality. No fracture seen. IMPRESSION: Mild right ankle soft tissue swelling. Unremarkable radiographic appearance of the lumbar spine rib. Unremarkable radiographic appearance of the right upper extremity. Dictated by: Electronically Signed by: Richy Alejo Electronically Signed on: 12/03/2018 5:35 PM Normal [facility] RAD/HUMERUS MIN 2V-RTon 11-09 RAD/HUMERUS MIN 2V-RT Patient Name: AMBIKA BROWN STUDY: RAD/HUMERUS MIN 2V-RT; RAD/SHOULDER MIN 2V-RT; RAD/FOREARM AP/LAT-RT; RAD/ELBOW MIN 3V-RT; RAD/ANKLE COMP MIN 3V-RT; RAD/SP LUMB W/OBL MIN 4V; 12/03/2018 5:19 pm; 12/03/2018 5:22 pm; 12/03/2018 5:21 pm; 12/03/2018 5:20 pm; 12/03/2018 5:23 pm INDICATION: trauma. COMPARISON: None ACCESSION NUMBER(S): [id number]; [id number]; [id number]; [id number]; [id number]; [id number] ORDERING CLINICIAN: DARIUSZ PURDY FINDINGS: Two views right humerus Two views right shoulder Four views right elbow Two views right forearm There is no osseous, articular, or soft tissue abnormality identified in the visualized upper extremity on the right. Lumbar spine five views Alignment normal. No fracture seen. Disc spaces are normally preserved. Right ankle three views Mild lateral-sided soft tissue swelling without evidence of other osseous abnormality. No fracture seen. IMPRESSION: Mild right ankle soft tissue swelling. Unremarkable radiographic appearance of the lumbar spine rib. Unremarkable radiographic appearance of the right upper extremity. Dictated by: Electronically Signed by: Richy Alejo Electronically Signed on: 12/03/2018 5:35 PM Normal [facility] RAD/SHOULDER MIN 2V-RTon RAD/SHOULDER MIN 2V-RT Patient Name: AMBIKA BROWN STUDY: RAD/HUMERUS MIN 2V-RT; RAD/SHOULDER MIN 2V-RT; RAD/FOREARM AP/LAT-RT; RAD/ELBOW MIN 3V-RT; RAD/ANKLE COMP MIN 3V-RT; RAD/SP LUMB W/OBL MIN 4V; 12/03/2018 5:19 pm; 12/03/2018 5:22 pm; 12/03/2018 5:21 pm; 12/03/2018 5:20 pm; 12/03/2018 5:23 pm INDICATION: trauma. COMPARISON: None ACCESSION NUMBER(S): [id number]; [id number]; [id number]; [id number]; [id number]; [id number] ORDERING CLINICIAN: DARIUSZ PURDY FINDINGS: Two views right humerus Two views right shoulder Four views right elbow Two views right forearm There is no osseous, articular, or soft tissue abnormality identified in the visualized upper extremity on the right. Lumbar spine five views Alignment normal. No fracture seen. Disc spaces are normally preserved. Right ankle three views Mild lateral-sided soft tissue swelling without evidence of other osseous abnormality. No fracture seen. IMPRESSION: Mild right ankle soft tissue swelling. Unremarkable radiographic appearance of the lumbar spine rib. Unremarkable radiographic appearance of the right upper extremity. Dictated by: Electronically Signed by: Richy Alejo Electronically Signed on: 12/03/2018 5:35 PM Normal [facility] RAD/SP LUMB W/OBL MIN 4Von 0 12-03-2018 RAD/SP LUMB W/OBL MIN 4V Patient Name: AMBIKA BROWN STUDY: RAD/HUMERUS MIN 2V-RT; RAD/SHOULDER MIN 2V-RT; RAD/FOREARM AP/LAT-RT; RAD/ELBOW MIN 3V-RT; RAD/ANKLE COMP MIN 3V-RT; RAD/SP LUMB W/OBL MIN 4V; 12/03/2018 5:19 pm; 12/03/2018 5:22 pm; 12/03/2018 5:21 pm; 12/03/2018 5:20 pm; 12/03/2018 5:23 pm INDICATION: trauma. COMPARISON: None ACCESSION NUMBER(S): [id number]; [id number]; [id number]; [id number]; [id number]; [id number] ORDERING CLINICIAN: DARIUSZ PURDY FINDINGS: Two views right humerus Two views right shoulder Four views right elbow Two views right forearm There is no osseous, articular, or soft tissue abnormality identified in the visualized upper extremity on the right. Lumbar spine five views Alignment normal. No fracture seen. Disc spaces are normally preserved. Right ankle three views Mild lateral-sided soft tissue swelling without evidence of other osseous abnormality. No fracture seen. IMPRESSION: Mild right ankle soft tissue swelling. Unremarkable radiographic appearance of the lumbar spine rib. Unremarkable radiographic appearance of the right upper extremity. Dictated by: Electronically Signed by: Richy Alejo Electronically Signed on: 12/03/2018 5:35 PM Normal [facility] Glucometeron 09-22-2018 Glucose [Mass/Vol] 104 mg/dL High 70-100 [facility] Provider Note - EDon 019 Provider Note - ED TIME SEEN: Time [id number] 18:25 ED NOTES: ED Notes Chief complaint is syncopal so while sitting in [employer]. Patient states she was at [employer] [facility]. She had been seen for greater than an hour. She reports 3 episodes prior to passing out feeling that she may pass out. She states was very warm. She did feels slightly nauseous. She also had change in vision. Apparently, there was a nurse there that states she was out for 30-60 seconds. There was no seizure activity. There is no incontinence of urine or stool. She denies headache. She presently denies visual, ocular auditory symptoms. She denies trouble with speech or swallowing. She denies chest pain, shortness of breath or difficulty breathing. She denies abdominal pain or back pain. Last normal menstrual period August 25 through August 29. Patient has no history of syncope. She denies hematemesis, melena hematochezia. She denies symptoms of . ALLERGIES: Allergies: No Known Allergies: Active OUTPATIENT MEDICATION, REVIEW/ADD MEDICATIONS: * Patient Currently Takes Medications as of 12-Mar-2018 16:15 documented in Structured Notes PAST MEDICAL HISTORY: Past Medical History: noncontributory (1) Resp: ASTHMA(1) GI: GASTROESOPHAGEAL REFLUX DISEASE(1) Head, Eye: MIGRAINES(1) Neuro/Psych: SEIZURE DISORDER(1) Additional Past Medical History: seizure related migraines(1) PAST SURGICAL HISTORY: GI/Hepatobiliary: CHOLECYSTECTOMY(1) Eye/ENT: TONSILLECTOMY(1) Additional Past Surgical History: wisdom teeth(1) FAMILY HISTORY: Family History: positive (1) Conditions: hypertension, cancer, diabetes mellitus(1) Family Member with Hypertension: father(1) Family Member with Cancer: maternal grandmother, paternal grandmother, paternal grandfather(1) Maternal Grandmother's Cancer Type: uterine(1) Paternal Grandmother's Cancer Type: bladder(1) Paternal Grandfather's Cancer Type: prostate(1) Family Member with Diabetes: maternal grandmother, maternal grandfather(1) PAST MENSTRUAL HISTORY: Age at Menarche: 12 year(s)(1) Menstrual Cycle Duration: 4 day(s)(1) Color: bright red(1) Menstrual Cycles: regular (1) Bleeding: heavy(1) Clots: frequently(1) Additional Past Menstrual History: Heavy periods, cramping(1) SEXUAL AND CONTRACEPTION HISTORY: Sexual Activity: active (1) Sexual Partner: single partner(1) Number of Sexual Partners in the Past 6 Months: 1 (2) Contraception Method: none(1) Contraception Duration: Trying to conceive(1) HISTORY ATTESTATION: AttestationI have reviewed and confirmed nurse's/medic's notes for patient's medications, allergies, medical history, and surgical history REVIEW OF SYSTEMS: General: POSITIVE: chills; NEGATIVE: anorexia, fever, malaise/fatigue Skin: NEGATIVE: rash Eye: POSITIVE: vision changes; NEGATIVE: pain, photophobia Ear: NEGATIVE: hearing disturbance, hearing loss, tinnitus Nose: NEGATIVE: congestion, discharge Mouth/Throat: NEGATIVE: hoarseness, throat pain Respiratory: NEGATIVE: cough, dyspnea Cardiovascular: NEGATIVE: chest pain, palpitation Gastrointestinal: POSITIVE: nausea; NEGATIVE: abdominal pain, diarrhea, vomiting Gastrorectal: NEGATIVE: hematochezia, melena Genitourinary: NEGATIVE: dysuria, hematuria, urinary frequency Gynecological: NEGATIVE: change in menses, vaginal discharge Neurological: POSITIVE: weakness; NEGATIVE: confusion/memory loss, dizziness, headache, numbness Psychiatric: NEGATIVE: anxiety Musculoskeletal: NEGATIVE: arthralgia/myalgia, back pain, joint swelling, pain Heme/Lymph: NEGATIVE: bleed/bruise easily, enlarged/tender lymph nodes, night sweats Endocrine: NEGATIVE: change in weight, cold/heat tolerance PHYSICAL EXAMINATION: General Appearance CommentsWell developed, well nourished and no acute distress. Skin CommentsSkin warm and dry. Normal turgor. No rash, no ulcers, and no trauma. Neck and Thyroid CommentsHead is normocephalic and atraumatic. Trachea is midline. There is no stridor with auscultation. Carotid pulses palpable. There are no carotid bruits. Neck is supple. Eyes CommentsPupils are equal, round and reactive. Extra muscles are intact. Sclera is anicteric. Conjunctivae pink. Ears, Nose, Mouth and Throat CommentsEars are normal. Ears are patent. Posterior pharynx without erythema or exudate. Uvula is midline. Respiratory CommentsNormal respiratory effort, clear to auscultation. There is good movement bilaterally. Cardiovascular CommentsRegular sinus rhythm, S1 normal, S2 normal. No murmur, rub or gallop. No clubbing and no cyanosis. Pulses CommentsDistal pulses are palpable 2+. Pulses are symmetric. Neurological CommentsPatient is alert and oriented 3. Motor is 5 over 5. Sensation is intact. DTRs are symmetric with no clonus or Babinski sign. Cranial nerves II through XII are intact. Cerebellar testing is normal. Psychiatric CommentsAffect is normal and thought content is normal. EKG RESULTS/INTERPRETATION: Interpretationnormal sinus rhythm, normal axis, normal ND interval and QRS complex. 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 EKG was obtained since she has never had an EKG to evaluate for evidence of delta wave or findings to suggest preexcitation syndrome or by daughter. No abnormality was noted. Since her and her are trying to get test was obtained. She was placed on a monitor and monitor reveals a sinus rhythm with no ectopy. Patient has been observed on the monitor for 1 hour 15 minutes with no ectopy. The chest is negative. DIAGNOSES/PROBLEM LIST: Problem VwnbPigxVfcopmNNR-4JNT-1 0 Vasovagal near syncopeED ViEfzyxp699.2R55 Vasovagal near-syncopeED IfMmilrq537.2R55 DISCHARGE DISPOSITION: Disposition: discharged Discharge Type: home CONDITION ON DISCHARGE: Condition on Dispositionimproved MEDICATION RECONCILIATION AND DISCHARGE MEDS: * Outpatient Medication Status not yet specified Electronic Signatures: Dhiraj Quiroga) (Signed 22-Sep-2018 19:42) Authored: Time Seen/ED Notes, Patient History, History Attestation, ROS, Physical Exam, EKG Results/Interpretation, Progress Note, ED Disposition (REQUIRED), Attestation Last Updated: 22-Sep-2018 19:42 by Dhiraj Quiroga) References: 1. Data Referenced From Gynecology Clinic Note 03/12/2018 4:05 PM 2. Data Referenced From Provider Note - ED 03/09/2018 10:31 PM Normal [facility] Phosphoruson 05-20-2017 Phosphate 4.0 mg/dL Normal 2.5-4.9 [facility] Comment on above: Performed By: #### P HOS3 ####[address] [address] MRA Head w/o Contraston MRA Head w/o Contrast Patient Name: AMBIKA CORTES MRI Exam Date/Time 05/19/2017 10:20:55 EDT Exam MRA Head w/o Contrast Ordering Physician DO ROSE WILLIAM J Accession Number [id number] CPT4 Codes 54486 () Reason For Exam HEADACHE Report MRI brain without contrast HISTORY: Severe headache, left-sided weakness Protocol: Sagittal and coronal T1 sequences without contrast; axial T2, FLAIR, diffusion, and gradient echo sequences without contrast No evidence of an acute infarct. No chronic ischemic changes. No extra-axial fluid collection or hydrocephalus. No mass or mass effect. The paranasal sinuses and mastoid air cells are clear. MRA head without contrast Protocol: 3-D yyjh-zm-qjmavy sequences without contrast The distal bilateral internal carotid arteries are normal. Bilateral anterior, middle, and posterior cerebral arteries are normal. The basilar artery is normal. MRA neck MRA neck without contrast Protocol: 2-D and 3-D ochm-uw-obibnc sequences without contrast Bilateral carotid and vertebral arteries are normal. A zero percent stenosis at the origins of the bilateral internal carotid arteries measured using the NASCET criteria. IMPRESSION: Normal examinations. Report Dictated on Final Dictated: 05/19/2017 2:17 pm Dictating Physician: MD HOUSE MALAY Signed Date and Time: 05/19/2017 3:08 pm Signed by: MD HOUSE MALAY Transcribed Date and Time: 05/19/2017 2:17 Normal [facility] MRA Neck w/o Contraston MRA Neck w/o Contrast Patient Name: AMBIKA CORTES MRI Exam Date/Time 05/19/2017 10:39:46 EDT Exam MRA Neck w/o Contrast Ordering Physician DO ROSE WILLIAM J Accession Number [id number] CPT4 Codes 84286 () Reason For Exam HEADACHE, SUDDEN, UNILATERAL, IPSILAT HORNERS SYNDROME OR CAROTID/VERTEBRAL DISSECTION SUSPECT Report MRI brain without contrast HISTORY: Severe headache, left-sided weakness Protocol: Sagittal and coronal T1 sequences without contrast; axial T2, FLAIR, diffusion, and gradient echo sequences without contrast No evidence of an acute infarct. No chronic ischemic changes. No extra-axial fluid collection or hydrocephalus. No mass or mass effect. The paranasal sinuses and mastoid air cells are clear. MRA head without contrast Protocol: 3-D pufj-od-sjatbi sequences without contrast The distal bilateral internal carotid arteries are normal. Bilateral anterior, middle, and posterior cerebral arteries are normal. The basilar artery is normal. MRA neck MRA neck without contrast Protocol: 2-D and 3-D hxpo-ye-bffril sequences without contrast Bilateral carotid and vertebral arteries are normal. A zero percent stenosis at the origins of the bilateral internal carotid arteries measured using the NASCET criteria. IMPRESSION: Normal examinations. Report Dictated on Final Dictated: 05/19/2017 2:17 pm Dictating Physician: MD HOUSE MALAY Signed Date and Time: 05/19/2017 3:08 pm Signed by: MD HOUSE MALAY Transcribed Date and Time: 05/19/2017 2:17 Normal [facility] MRI Brain w/o Contraston MRI Brain w/o Contrast Patient Name: AMBIKA KATHLEEN MRI Exam Date/Time 05/19/2017 10:18:31 EDT Exam MRI Brain w/o Contrast Ordering Physician DO RENNER LEAH ROSE Accession Number [id number] CPT4 Codes 95587 () Reason For Exam left sided hemiparesis Report MRI brain without contrast HISTORY: Severe headache, left-sided weakness Protocol: Sagittal and coronal T1 sequences without contrast; axial T2, FLAIR, diffusion, and gradient echo sequences without contrast No evidence of an acute infarct. No chronic ischemic changes. No extra-axial fluid collection or hydrocephalus. No mass or mass effect. The paranasal sinuses and mastoid air cells are clear. MRA head without contrast Protocol: 3-D hzhs-bs-vdsnyc sequences without contrast The distal bilateral internal carotid arteries are normal. Bilateral anterior, middle, and posterior cerebral arteries are normal. The basilar artery is normal. MRA neck MRA neck without contrast Protocol: 2-D and 3-D lphj-bo-twkpdq sequences without contrast Bilateral carotid and vertebral arteries are normal. A zero percent stenosis at the origins of the bilateral internal carotid arteries measured using the NASCET criteria. IMPRESSION: Normal examinations. Report Dictated on Final Dictated: 05/19/2017 2:17 pm Dictating Physician: MD HOUSE MALAY Signed Date and Time: 05/19/2017 3:08 pm Signed by: MD HOUSE MALAY Transcribed Date and Time: 05/19/2017 2:17 Normal [facility] Phosphoruson 05-19-2017 Phosphate 3.4 mg/dL Normal 2.5-4.9 [facility] Comment on above: Performed By: #### P HOS3 ####[place] [address] Basic Metabolic Panelon Anion gap 8 mmol/L Normal [facility] Comment on above: Performed By: #### B MP3, MG3, PHOS3, HEMOG, QWNT ####[place] [address] Creatinine 0.57 mg/dL Normal 0.55-1.40 [facility] Comment on above: Performed By: #### B MP3, MG3, PHOS3, HEMOG, QWNT ####[place] [address] eGFR (black) mL/min/{1.73_m2} Normal >60 [facility] Comment on above: Performed By: #### B MP3, MG3, PHOS3, HEMOG, QWNT ####[place] [address] eGFR (non-black) mL/min/{1.73_m2} Normal >60 [facility] Comment on above: Result Comment: Sour ce- MDRD equation with creatinine calibration to IDMS(NKDEP)eGFR not recommended for drug dose adjustment Performed By: #### B MP3, MG3, PHOS3, HEMOG, QWNT ####[place] [address] Chloride 108 mmol/L Normal 98-109 [facility] Comment on above: Performed By: #### B MP3, MG3, PHOS3, HEMOG, QWNT ####[place] [address] Potassium molar conc 3.9 mmol/L Normal 3.5-5.1 [facility] Comment on above: Performed By: #### B MP3, MG3, PHOS3, HEMOG, QWNT ####[address] [address] Sodium 141 mmol/L Normal 135-145 [facility] Comment on above: Performed By: #### B MP3, MG3, PHOS3, HEMOG, QWNT ####[address] [address] Calcium 8.1 mg/dL Low 8.2-10.1 [facility] Comment on above: Performed By: #### B MP3, MG3, PHOS3, HEMOG, QWNT ####[address] [address] Glucose mass conc 86 mg/dL Normal 70-100 [facility] Comment on above: Performed By: #### B MP3, MG3, PHOS3, HEMOG, QWNT ####[place] [address] Urea nitrogen 14 mg/dL Normal 7-25 [facility] Comment on above: Performed By: #### B MP3, MG3, PHOS3, HEMOG, QWNT ####[address] [address] CO2 25 mmol/L Normal 21-32 [facility] Comment on above: Performed By: #### B MP3, MG3, PHOS3, HEMOG, QWNT ####[address] [address] Hemogramon 05-18-2017 Erythrocyte distribution width Auto Ratio (RBC) 15.1 % High 11.5-14.5 [facility] Comment on above: Performed By: #### B MP3, MG3, PHOS3, HEMOG, QWNT ####[address] [address] Erythrocytes (RBC) 4.40 10*6/uL Normal 3.80-5.20 [facility] Comment on above: Performed By: #### B MP3, MG3, PHOS3, HEMOG, QWNT ####[place] [address] Hematocrit (HCT) 35.4 % Normal 35.0-47.0 [facility] Comment on above: Performed By: #### B MP3, MG3, PHOS3, HEMOG, QWNT ####[place] [address] Hemoglobin mass conc (Bld) 11.9 g/dL Normal 11.7-16.0 [facility] Comment on above: Performed By: #### B MP3, MG3, PHOS3, HEMOG, QWNT ####[place] [address] MCH 26.9 pg Normal 26.0-34.0 [facility] Comment on above: Performed By: #### B MP3, MG3, PHOS3, HEMOG, QWNT ####[place] [address] MCHC mass conc (RBC) 33.5 % Normal 32.0-36.0 [facility] Comment on above: Performed By: #### B MP3, MG3, PHOS3, HEMOG, QWNT ####[place] [address] MCV 80.5 fL Normal 79.0-98.0 [facility] Comment on above: Performed By: #### B MP3, MG3, PHOS3, HEMOG, QWNT ####[place] [address] Platelet mean volume (PMV) 11.1 fL High 7.4-10.4 [facility] Comment on above: Performed By: #### B MP3, MG3, PHOS3, HEMOG, QWNT ####[place] [address] Platelets 145 10*3/uL Normal 140-440 [facility] Comment on above: Performed By: #### B MP3, MG3, PHOS3, HEMOG, QWNT ####[place] [address] WBC (Leukocytes) 8.5 10*3/uL Normal 3.6-10.7 [facility] Comment on above: Performed By: #### B MP3, MG3, PHOS3, HEMOG, QWNT ####[address] [place] [address] Magnesiumon 05-18-2017 Magnesium 2.1 mg/dL Normal 1.8-2.4 [facility] Comment on above: Performed By: #### B MP3, MG3, PHOS3, HEMOG, QWNT ####[address] [place] [address] Phosphoruson 05-18-2017 Phosphate 2.9 mg/dL Normal 2.5-4.9 [facility] Comment on above: Performed By: #### B MP3, MG3, PHOS3, HEMOG, QWNT ####[address] [place] [address] hCG Quantitativeon 7 hCG Quantitative < 1 Normal < 3 [facility] Comment on above: Performed By: #### B MP3, MG3, PHOS3, HEMOG, QWNT ####[address] [place] [address] Culture, urine Bacteria identified Cx Nom (U) Presumptive E. coli [facility] Work Phone: ECG B/O W INTERP (MED OFFICE ) [facility] Vital Signs Date Time Vital Sign Value Performing Clinician Facility 04-21-2025 13:06-0400 Body height 170.[address] Mega Weeks MD Work Phone: [facility] 04-21-2025 13:06-0400 Body mass index (BMI) [Ratio] 54 kg/m2 Dr. Mega Weeks MD Work Phone: [facility] 04-21-2025 13:06-0400 Body weight 156.[address] Mega Weeks MD Work Phone: [facility] 04-21-2025 13:06-0400 Diastolic blood pressure 104 mm[Hg] Dr. Mega Weeks MD Work Phone: [facility] 04-21-2025 13:06-0400 Heart rate 95 /min Dr. Mega Weeks MD Work Phone: [facility] 04-21-2025 13:06-0400 Respiratory rate 16 /min Dr. Mega Weeks MD Work Phone: [facility] 04-21-2025 13:06-0400 Systolic blood pressure 162 mm[Hg] Dr. Mega Weeks MD Work Phone: [facility] 03-12-2025 12:19-0400 Diastolic blood pressure 70 mm[Hg] Infusion 6 Work Phone: [facility] 03-12-2025 12:19-0400 Heart rate 84 /min Infusion 6 Work Phone: [facility] 03-12-2025 12:19-0400 Systolic blood pressure 126 mm[Hg] Infusion 6 Work Phone: [facility] 03-11-2025 13:44-0400 Diastolic blood pressure 81 mm[Hg] Infusion 6 Work Phone: [facility] 03-11-2025 13:44-0400 Heart rate 89 /min Infusion 6 Work Phone: [facility] 03-11-2025 13:44-0400 Systolic blood pressure 140 mm[Hg] Infusion 6 Work Phone: [facility] 03-10-2025 14:20-0400 Diastolic blood pressure 77 mm[Hg] Infusion 6 Work Phone: [facility] 03-10-2025 14:20-0400 Heart rate 91 /min Infusion 6 Work Phone: [facility] 03-10-2025 14:20-0400 Systolic blood pressure 137 mm[Hg] Infusion 6 Work Phone: [facility] 02-20-2025 16:12-0400 Body height 170.18 cm No Primary Care Physician [facility] 02-20-2025 16:06-0400 Body weight 153.31 kg No Primary Care Physician [facility] 02-20-2025 16:06-0400 Diastolic blood pressure 85 mm[Hg] No Primary Care Physician [facility] 02-20-2025 16:06-0400 Heart rate 88 /min No Primary Care Physician [facility] 02-20-2025 16:06-0400 Respiratory rate 18 /min No Primary Care Physician [facility] 02-20-2025 16:06-0400 Systolic blood pressure 129 mm[Hg] No Primary Care Physician [facility] 02-09-2025 09:59-0400 Body mass index (BMI) [Ratio] 53.17 kg/m2 Lise Nevarez FORMULA CHECKER.SCHEDULE CHECKER Work Phone: [facility] 02-09-2025 09:59-0400 Body weight 154 kg Lise Nevarez FORMULA CHECKER.SCHEDULE CHECKER Work Phone: [facility] 02-09-2025 09:59-0400 Diastolic blood pressure 91 mm[Hg] Lise Nevarez FORMULA CHECKER.SCHEDULE CHECKER Work Phone: [facility] 02-09-2025 09:59-0400 Heart rate 97 /min Lise Nevarez FORMULA CHECKER.SCHEDULE CHECKER Work Phone: [facility] 02-09-2025 09:59-0400 SaO2% (BldA) [Mass fraction] 97 % Lise Nevarez FORMULA CHECKER.SCHEDULE CHECKER Work Phone: [facility] 02-09-2025 09:59-0400 Systolic blood pressure 129 mm[Hg] Lise Nevarez FORMULA CHECKER.SCHEDULE CHECKER Work Phone: [facility] 01-12-2025 20:47-0400 SaO2% (BldA) [Mass fraction] 97 % No Primary Care Physician [facility] 01-12-2025 20:32-0400 Diastolic blood pressure 86 mm[Hg] No Primary Care Physician [facility] 01-12-2025 20:32-0400 Heart rate 85 /min No Primary Care Physician [facility] 01-12-2025 20:32-0400 Systolic blood pressure 133 mm[Hg] No Primary Care Physician [facility] 01-12-2025 20:00-0400 Body temperature 98.5 [degF] No Primary Care Physician [facility] 01-12-2025 20:00-0400 Respiratory rate 20 /min No Primary Care Physician [facility] 01-12-2025 14:05-0400 Body height 170.18 cm No Primary Care Physician [facility] 01-12-2025 14:05-0400 Body weight 151.8 kg No Primary Care Physician [facility] 01-11-2025 16:31-0400 Body mass index (BMI) [Ratio] 52.4 kg/m2 No Primary Care Physician [facility] 01-11-2025 15:02-0400 Inhaled oxygen flow rate 2 L/min No Primary Care Physician [facility] 01-08-2025 13:51-0400 Body mass index (BMI) [Ratio] 52.7 kg/m2 No Primary Care Physician [facility] 01-08-2025 13:51-0400 Body weight 152.86 kg No Primary Care Physician [facility] 01-08-2025 13:51-0400 Diastolic blood pressure 95 mm[Hg] No Primary Care Physician [facility] 01-08-2025 13:51-0400 Heart rate 92 /min No Primary Care Physician [facility] 01-08-2025 13:51-0400 Respiratory rate 18 /min No Primary Care Physician [facility] 01-08-2025 13:51-0400 SaO2% (BldA) [Mass fraction] 97 % No Primary Care Physician [facility] 01-08-2025 13:51-0400 Systolic blood pressure 154 mm[Hg] No Primary Care Physician [facility] 01-06-2025 13:08-0400 Diastolic blood pressure 102 mm[Hg] Mega Weeks MD Work Phone: [facility] 01-06-2025 13:08-0400 Heart rate 84 /min Mega Weeks MD Work Phone: [facility] 01-06-2025 13:08-0400 Respiratory rate 16 /min Mega Weeks MD Work Phone: [facility] 01-06-2025 13:08-0400 SaO2% (BldA) [Mass fraction] 98 % Mega Weeks MD Work Phone: [facility] 01-06-2025 13:08-0400 Systolic blood pressure 138 mm[Hg] Mega Weeks MD Work Phone: [facility] 01-06-2025 11:24-0400 Body height 170.2 cm Mega Weeks MD Work Phone: [facility] 01-06-2025 11:24-0400 Body mass index (BMI) [Ratio] 50.12 kg/m2 Mega Weeks MD Work Phone: [facility] 01-06-2025 11:24-0400 Body temperature 97 [degF] Mega Weeks MD Work Phone: [facility] 01-06-2025 11:24-0400 Body weight 145.15 kg Mega Weeks MD Work Phone: [facility] 12-16-2024 08:22-0400 Body mass index (BMI) [Ratio] 54.03 kg/m2 Nitin Rock MD Work Phone: [facility] 12-16-2024 08:22-0400 Body weight 156.49 kg Nitin Rock MD Work Phone: [facility] 12-16-2024 08:22-0400 Diastolic blood pressure 90 mm[Hg] Nitin Rock MD Work Phone: [facility] 12-16-2024 08:22-0400 Heart rate 85 /min Nitin Rock MD Work Phone: [facility] 12-16-2024 08:22-0400 Systolic blood pressure 143 mm[Hg] Nitin Rock MD Work Phone: [facility] 12-03-2024 23:19-0400 Body temperature 97.9 [degF] Dr. Madeleine Hebert DO Work Phone: 0(324)637-200843 [place] [address] 12-03-2024 23:19-0400 Diastolic blood pressure 86 mm[Hg] Dr. Madeleine Hebert DO Work Phone: 5(288)014-261643 [place] [address] 12-03-2024 23:19-0400 Heart rate 103 /min Dr. Madeleine Hebert DO Work Phone: 6(523)950-149243 [place] [address] 12-03-2024 23:19-0400 Respiratory rate 21 /min Dr. Madeleine Hebert DO Work Phone: 5(608)637-671543 [place] [address] 12-03-2024 23:19-0400 SaO2% (BldA) [Mass fraction] 97 % Dr. Madeleine Hebert DO Work Phone: 1(065)441-491343 [place] [address] 12-03-2024 23:19-0400 Systolic blood pressure 154 mm[Hg] Dr. Madeleine Hebert DO Work Phone: 5(242)540-518243 [place] [address] 12-03-2024 20:22-0400 Body height 170.[address] Madeleine Hebert DO Work Phone: 7(344)078-439643 [place] [address] 12-03-2024 20:22-0400 Body mass index (BMI) [Ratio] 53.9 kg/m2 Dr. Madeleine Hebert DO Work Phone: 4(174)154-555443 [place] [address] 12-03-2024 20:22-0400 Body weight 156.[address] Madeleine Hebert DO Work Phone: 0(979)413-678643 [place] [address] 11-18-2024 07:41-0400 Body height 170.[address] Madeleine Hebert DO Work Phone: 5(287)338-518143 [place] [address] 11-18-2024 07:41-0400 Body mass index (BMI) [Ratio] 52.6 kg/m2 Dr. Madeleine Hebert DO Work Phone: 3(609)401-738743 [place] [address] 11-18-2024 07:41-0400 Body weight 152.[address] Madeleine Hebert DO Work Phone: 5(477)132-614943 [place] [address] 11-18-2024 07:41-0400 Diastolic blood pressure 88 mm[Hg] Dr. Madeleine Hebert DO Work Phone: 4(727)202-282857 [place] [address] 11-18-2024 07:41-0400 Heart rate 82 /min Dr. Madeleine Hebert DO Work Phone: 6(853)130-193057 [place] [address] 11-18-2024 07:41-0400 Respiratory rate 18 /min Dr. Madeleine Hebert DO Work Phone: 4(593)823-264643 [place] [address] 11-18-2024 07:41-0400 SaO2% (BldA) [Mass fraction] 98 % Dr. Madeleine Hebert DO Work Phone: 2(988)157-917957 [place] [address] 11-18-2024 07:41-0400 Systolic blood pressure 130 mm[Hg] Dr. Madeleine Hebert DO Work Phone: 5(931)721-970843 [place] [address] 09-17-2024 21:29-0500 Body temperature 97.8 [degF] Dr. Madeleine Hebert DO Work Phone: 0(279)569-078743 [place] [address] 09-17-2024 21:29-0500 Diastolic blood pressure 80 mm[Hg] Dr. Madeleine Hebert DO Work Phone: 0(143)287-261843 [place] [address] 09-17-2024 21:29-0500 Heart rate 102 /min Dr. Madeleine Hebert DO Work Phone: 6(040)711-581343 [place] [address] 09-17-2024 21:29-0500 Respiratory rate 17 /min Dr. Madeleine Hebert DO Work Phone: 3(808)817-519443 [place] [address] 09-17-2024 21:29-0500 SaO2% (BldA) [Mass fraction] 98 % Dr. Madeleine Hebert DO Work Phone: 4(772)996-178743 [place] [address] 09-17-2024 21:29-0500 Systolic blood pressure 138 mm[Hg] Dr. Madeleine Hebert DO Work Phone: 2(197)960-524243 [place] [address] 09-17-2024 16:14-0500 Body mass index (BMI) [Ratio] 53.4 kg/m2 Dr. Madeleine Hebert DO Work Phone: 9(551)254-577557 [place] [address] 09-17-2024 16:14-0500 Body weight 154.[address] Madeleine Hebert DO Work Phone: [facility] 09-17-2024 15:07-0500 Body mass index (BMI) [Ratio] 53.45 kg/m2 [facility] FORMULA CHECKER.SCHEDULE CHECKER Work Phone: [facility] 09-17-2024 15:07-0500 Body temperature 98.49 [degF] [facility] FORMULA CHECKER.SCHEDULE CHECKER Work Phone: [facility] 09-17-2024 15:07-0500 Body weight 154.8 kg [facility].SCHEDULE CHECKER Work Phone: [facility] 09-17-2024 15:07-0500 Diastolic blood pressure 88 mm[Hg] [facility] FORMULA CHECKER.SCHEDULE CHECKER Work Phone: [facility] 09-17-2024 15:07-0500 Heart rate 76 /min [facility] FORMULA CHECKER.SCHEDULE CHECKER Work Phone: [facility] 09-17-2024 15:07-0500 Respiratory rate 20 /min [facility] FORMULA CHECKER.SCHEDULE CHECKER Work Phone: [facility] 09-17-2024 15:07-0500 SaO2% (BldA) [Mass fraction] 96 % [facility] FORMULA CHECKER.SCHEDULE CHECKER Work Phone: [facility] 09-17-2024 15:07-0500 Systolic blood pressure 128 mm[Hg] [facility] FORMULA CHECKER.SCHEDULE CHECKER Work Phone: [facility] 08-22-2024 12:01-0500 Diastolic blood pressure 74 mm[Hg] Infusion 3 Work Phone: [facility] 08-22-2024 12:01-0500 Heart rate 79 /min Infusion 3 Work Phone: [facility] 08-22-2024 12:01-0500 Systolic blood pressure 145 mm[Hg] Infusion 3 Work Phone: [facility] 08-21-2024 12:12-0500 Diastolic blood pressure 65 mm[Hg] Infusion 7 Work Phone: [facility] 08-21-2024 12:12-0500 Heart rate 69 /min Infusion 7 Work Phone: [facility] 08-21-2024 12:12-0500 Systolic blood pressure 150 mm[Hg] Infusion 7 Work Phone: [facility] 08-20-2024 11:19-0500 Diastolic blood pressure 74 mm[Hg] Infusion 7 Work Phone: [facility] 08-20-2024 11:19-0500 Heart rate 78 /min Infusion 7 Work Phone: [facility] 08-20-2024 11:19-0500 Systolic blood pressure 119 mm[Hg] Infusion 7 Work Phone: [facility] 08-19-2024 04:00-0500 Body temperature 98 [degF] Dr. Madeleine Hebert DO Work Phone: [facility] 08-19-2024 04:00-0500 Diastolic blood pressure 73 mm[Hg] Dr. Madeleine Hebert DO Work Phone: [facility] 08-19-2024 04:00-0500 Heart rate 72 /min Dr. Madeleine Hebert DO Work Phone: [facility] 08-19-2024 04:00-0500 Respiratory rate 18 /min Dr. Madeleine Hebert DO Work Phone: [facility] 08-19-2024 04:00-0500 SaO2% (BldA) [Mass fraction] 100 % Dr. Madeleine Hebert DO Work Phone: [facility] 08-19-2024 04:00-0500 Systolic blood pressure 128 mm[Hg] Dr. Madeleine Hebert DO Work Phone: [facility] 08-18-2024 20:13-0500 Body mass index (BMI) [Ratio] 52.1 kg/m2 Dr. Madeleine Hebert DO Work Phone: [facility] 08-18-2024 20:13-0500 Body weight 153.[address] Madeleine Hebert DO Work Phone: [facility] 08-01-2024 16:06-0500 Body mass index (BMI) [Ratio] 53.49 kg/m2 Dalila Rebecca FORMULA CHECKER.SCHEDULE CHECKER Work Phone: [facility] 08-01-2024 16:06-0500 Body weight 154.9 kg Dalila Rebecca FORMULA CHECKER.SCHEDULE CHECKER Work Phone: [facility] 08-01-2024 16:06-0500 Diastolic blood pressure 88 mm[Hg] Dalila Rebecca FORMULA CHECKER.SCHEDULE CHECKER Work Phone: [facility] 08-01-2024 16:06-0500 Heart rate 102 /min Dalila Rebecca FORMULA CHECKER.SCHEDULE CHECKER Work Phone: [facility] 08-01-2024 16:06-0500 SaO2% (BldA) [Mass fraction] 96 % Dalila Rebecca FORMULA CHECKER.SCHEDULE CHECKER Work Phone: [facility] 08-01-2024 16:06-0500 Systolic blood pressure 147 mm[Hg] Dalila Rebecca FORMULA CHECKER.SCHEDULE CHECKER Work Phone: [facility] 05-01-2024 13:40-0400 Diastolic blood pressure 76 mm[Hg] Dalila Rebecca FORMULA CHECKER.SCHEDULE CHECKER Work Phone: [facility] 05-01-2024 13:40-0400 Heart rate 107 /min Dalila Rebecca FORMULA CHECKER.SCHEDULE CHECKER Work Phone: [facility] 05-01-2024 13:40-0400 SaO2% (BldA) [Mass fraction] 97 % Dalila Rebecca FORMULA CHECKER.SCHEDULE CHECKER Work Phone: [facility] 05-01-2024 13:40-0400 Systolic blood pressure 153 mm[Hg] Dalila Rebecca FORMULA CHECKER.SCHEDULE CHECKER Work Phone: [facility] 04-30-2024 10:32-0400 Body mass index (BMI) [Ratio] 51.84 kg/m2 Washington Haury FORMULA CHECKER.SCHEDULE CHECKER Work Phone: [facility] 04-30-2024 10:32-0400 Body weight 150.14 kg Washington Mondragon FORMULA CHECKER.SCHEDULE CHECKER Work Phone: [facility] 04-30-2024 10:32-0400 Diastolic blood pressure 72 mm[Hg] Washington Haury FORMULA CHECKER.SCHEDULE CHECKER Work Phone: [facility] 04-30-2024 10:32-0400 Systolic blood pressure 124 mm[Hg] Washington Haury FORMULA CHECKER.SCHEDULE CHECKER Work Phone: [facility] 01-24-2024 14:42-0400 Diastolic blood pressure 71 mm[Hg] Dalila Rebecca FORMULA CHECKER.SCHEDULE CHECKER Work Phone: [facility] 01-24-2024 14:42-0400 Heart rate 96 /min Dalila Rebecca FORMULA CHECKER.SCHEDULE CHECKER Work Phone: [facility] 01-24-2024 14:42-0400 Systolic blood pressure 132 mm[Hg] Dalila Rebecca FORMULA CHECKER.SCHEDULE CHECKER Work Phone: [facility] 12-15-2023 10:20-0400 Body temperature 97.9 [degF] Lauro Diaz MD Work Phone: [facility] 12-15-2023 10:20-0400 Body weight 149.3 kg Lauro Diaz MD Work Phone: [facility] 12-15-2023 10:20-0400 Diastolic blood pressure 78 mm[Hg] Lauro Diaz MD Work Phone: [facility] 12-15-2023 10:20-0400 Heart rate 86 /min Lauro Diaz MD Work Phone: [facility] 12-15-2023 10:20-0400 Respiratory rate 18 /min Lauro Diaz MD Work Phone: [facility] 12-15-2023 10:20-0400 SaO2% (BldA) [Mass fraction] 97 % Lauro Diaz MD Work Phone: [facility] 12-15-2023 10:20-0400 Systolic blood pressure 124 mm[Hg] Lauro Diaz MD Work Phone: [facility] 11-20-2023 09:08-0400 Body height 170.18 cm DEFINED NOT [facility] 11-20-2023 09:08-0400 Body mass index (BMI) [Ratio] 50.7 kg/m2 DEFINED NOT [facility] 11-20-2023 09:08-0400 Body weight 146.96 kg DEFINED NOT [facility] 11-20-2023 09:08-0400 Diastolic blood pressure 78 mm[Hg] DEFINED NOT [facility] 11-20-2023 09:08-0400 Heart rate 93 /min DEFINED NOT [facility] 11-20-2023 09:08-0400 Respiratory rate 18 /min DEFINED NOT [facility] 11-20-2023 09:08-0400 SaO2% (BldA) [Mass fraction] 96 % DEFINED NOT [facility] 11-20-2023 09:08-0400 Systolic blood pressure 130 mm[Hg] DEFINED NOT [facility] 08-29-2023 09:59-0500 Body height 171.5 cm Washington Mondragon APRN.SCHEDULE CHECKER Work Phone: [facility] 08-29-2023 09:59-0500 Body weight 147.6 kg Washington Mondragon APRN.SCHEDULE CHECKER Work Phone: [facility] 08-29-2023 09:59-0500 Diastolic blood pressure 80 mm[Hg] Washington Mondragon FORMULA CHECKER.SCHEDULE CHECKER Work Phone: [facility] 08-29-2023 09:59-0500 Systolic blood pressure 120 mm[Hg] Washington Mondragon FORMULA CHECKER.SCHEDULE CHECKER Work Phone: [facility] 06-10-2023 19:52-0400 Body temperature 99.9 [degF] SPECIMEN COLLECTOR-C Erlinda Carmine SPECIMEN COLLECTOR Work Phone: [facility] 06-10-2023 19:52-0400 Diastolic blood pressure 85 mm[Hg] SPECIMEN COLLECTOR-C Erlinda Fortune SPECIMEN COLLECTOR Work Phone: [facility] 06-10-2023 19:52-0400 Heart rate 120 /min SPECIMEN COLLECTOR-C Erlinda Fortune SPECIMEN COLLECTOR Work Phone: [facility] 06-10-2023 19:52-0400 Respiratory rate 16 /min SPECIMEN COLLECTOR-C Erlinda Fortune SPECIMEN COLLECTOR Work Phone: [facility] 06-10-2023 19:52-0400 SaO2% (BldA) [Mass fraction] 93 % SPECIMEN COLLECTOR-C Erlinda Fortune SPECIMEN COLLECTOR Work Phone: [facility] 06-10-2023 19:52-0400 Systolic blood pressure 130 mm[Hg] SPECIMEN COLLECTOR-C Erlinda Fortune SPECIMEN COLLECTOR Work Phone: [facility] 06-10-2023 17:46-0400 Body height 170.18 cm SPECIMEN COLLECTOR-C Erlinda Fortune SPECIMEN COLLECTOR Work Phone: [facility] 06-10-2023 17:46-0400 Body mass index (BMI) [Ratio] 50.3 kg/m2 SPECIMEN COLLECTOR-C Erlinda Fortune SPECIMEN COLLECTOR Work Phone: [facility] 06-10-2023 17:46-0400 Body weight 145.6 kg SPECIMEN COLLECTOR-C Erlinda Fortune SPECIMEN COLLECTOR Work Phone: [facility] 05-30-2023 14:52-0400 Diastolic blood pressure 80 mm[Hg] Aarti MEDEL-Kait Work Phone: [facility] 05-30-2023 14:52-0400 Heart rate 101 /min Aarti MEDEL-C Work Phone: [facility] 05-30-2023 14:52-0400 Systolic blood pressure 132 mm[Hg] Aarti MEDEL-C Work Phone: [facility] 05-16-2023 00:21-0400 Body temperature 98.6 [degF] [facility] 05-16-2023 00:05-0400 Heart rate 85 /min Pastor Abbott [facility] 05-15-2023 23:46-0400 Body weight 146.96 kg Pastor Abbott [facility] 05-15-2023 23:46-0400 Diastolic blood pressure 93 mm[Hg] Pastor Abbott [facility] 05-15-2023 23:46-0400 Respiratory rate 18 /min Pastor Abbott [facility] 05-15-2023 23:46-0400 SaO2% (BldA) [Mass fraction] 97 % Pastor Abbott [facility] 05-15-2023 23:46-0400 Systolic blood pressure 157 mm[Hg] Pastor Abbott [facility] 05-12-2023 11:04-0400 Body temperature 97.39 [degF] Marychuy Burleson MD Work Phone: [facility] [employer] 05-12-2023 11:04-0400 Diastolic blood pressure 81 mm[Hg] Marychuy Burleson MD Work Phone: [facility] [employer] 05-12-2023 11:04-0400 Heart rate 86 /min Marychuy Burleson MD Work Phone: [facility] [employer] 05-12-2023 11:04-0400 Respiratory rate 20 /min Marychuy Burleson MD Work Phone: [facility] [employer] 05-12-2023 11:04-0400 SaO2% (BldA) [Mass fraction] 96 % Marychuy Burleson MD Work Phone: [facility] [employer] 05-12-2023 11:04-0400 Systolic blood pressure 141 mm[Hg] Marychuy Burleson MD Work Phone: [facility] [facility] 05-07-2023 21:35-0400 Body height 170.2 cm Marychuy Burleson MD Work Phone: [facility] 05-07-2023 21:35-0400 Body mass index (BMI) [Ratio] 51.69 kg/m2 Marychuy Burleson MD Work Phone: [facility] 05-07-2023 21:35-0400 Body weight 149.69 kg Marychuy Burleson MD Work Phone: [facility] 04-25-2023 12:45-0400 Heart rate 86 /min Kin Neves MD Work Phone: [facility] 04-25-2023 12:11-0400 Diastolic blood pressure 70 mm[Hg] Kin Neves MD Work Phone: [facility] 04-25-2023 12:11-0400 Systolic blood pressure 128 mm[Hg] Kin Neves MD Work Phone: [facility] 04-25-2023 12:10-0400 SaO2% (BldA) [Mass fraction] 99 % Kin Neves MD Work Phone: [facility] 04-25-2023 12:08-0400 Body height 170.2 cm Kin Neves MD Work Phone: [facility] 04-25-2023 12:08-0400 Body mass index (BMI) [Ratio] 51.69 kg/m2 Kin eNves MD Work Phone: [facility] 04-25-2023 12:08-0400 Body temperature 98.01 [degF] Kin Neves MD Work Phone: [facility] 04-25-2023 12:08-0400 Body weight 149.69 kg Kin Neves MD Work Phone: [facility] 04-25-2023 12:08-0400 Respiratory rate 16 /min Kin Neves MD Work Phone: [facility] 04-10-2023 21:51-0400 Body height 170.18 cm No Primary Care Physician [facility] 04-10-2023 21:51-0400 Body mass index (BMI) [Ratio] 52.4 kg/m2 No Primary Care Physician [facility] 04-10-2023 21:51-0400 Body weight 152 kg No Primary Care Physician [facility] 04-10-2023 21:41-0400 Diastolic blood pressure 70 mm[Hg] No Primary Care Physician [facility] 04-10-2023 21:41-0400 Heart rate 93 /min No Primary Care Physician [facility] 04-10-2023 21:41-0400 Systolic blood pressure 128 mm[Hg] No Primary Care Physician [facility] 04-10-2023 21:40-0400 Body temperature 98.3 [degF] No Primary Care Physician [facility] 04-10-2023 21:40-0400 SaO2% (BldA) [Mass fraction] 97 % No Primary Care Physician [facility] 04-08-2023 00:45-0400 Heart rate 89 /min Mary Dao DO Work Phone: [facility] 04-07-2023 23:42-0400 Body height 171.5 cm Mary Dao DO Work Phone: [facility] 04-07-2023 23:42-0400 Body mass index (BMI) [Ratio] 50.92 kg/m2 Mary Dao DO Work Phone: [facility] 04-07-2023 23:42-0400 Body temperature 98.2 [degF] Mary Dao DO Work Phone: [facility] 04-07-2023 23:42-0400 Body weight 149.69 kg Mary Dao DO Work Phone: [facility] 04-07-2023 23:42-0400 Diastolic blood pressure 83 mm[Hg] Mary Gaye DO Work Phone: [facility] 04-07-2023 23:42-0400 Respiratory rate 20 /min Mary Dao DO Work Phone: [facility] 04-07-2023 23:42-0400 SaO2% (BldA) [Mass fraction] 97 % Mary Dao DO Work Phone: [facility] 04-07-2023 23:42-0400 Systolic blood pressure 137 mm[Hg] Mary Dao DO Work Phone: [facility] 04-05-2023 08:47-0400 Diastolic blood pressure 88 mm[Hg] Zulma Talib DDS Work Phone: [facility] 04-05-2023 08:47-0400 Heart rate 91 /min Zulma Talib DDS Work Phone: [facility] 04-05-2023 08:47-0400 Systolic blood pressure 122 mm[Hg] Zulma Talib DDS Work Phone: [facility] 03-28-2023 13:13-0400 Diastolic blood pressure 92 mm[Hg] Zulma Talib DDS Work Phone: [facility] 03-28-2023 13:13-0400 Heart rate 98 /min Zulma Talib DDS Work Phone: [facility] 03-28-2023 13:13-0400 Systolic blood pressure 110 mm[Hg] Zulma Talib DDS Work Phone: [facility] 03-21-2023 09:35-0400 Body height 171.5 cm [facility] Khalid DO Work Phone: [facility] 03-21-2023 09:35-0400 Body mass index (BMI) [Ratio] 51.6 kg/m2 [facility] Khalid DO Work Phone: [facility] 03-21-2023 09:35-0400 Body temperature 96.49 [degF] Zandra Khalid DO Work Phone: [facility] 03-21-2023 09:35-0400 Body weight 151.77 kg [facility] Khalid DO Work Phone: [facility] 03-21-2023 09:35-0400 Diastolic blood pressure 67 mm[Hg] Zandra Khalid DO Work Phone: [facility] 03-21-2023 09:35-0400 Heart rate 85 /min [facility] Khalid DO Work Phone: [facility] 03-21-2023 09:35-0400 Respiratory rate 20 /min [facility] Khalid DO Work Phone: [facility] 03-21-2023 09:35-0400 Systolic blood pressure 105 mm[Hg] Zandra Khalid DO Work Phone: [facility] 03-11-2023 00:33-0400 Diastolic blood pressure 84 mm[Hg] No Primary Care Physician [facility] 03-11-2023 00:33-0400 Heart rate 89 /min No Primary Care Physician [facility] 03-11-2023 00:33-0400 Respiratory rate 16 /min No Primary Care Physician [facility] 03-11-2023 00:33-0400 SaO2% (BldA) [Mass fraction] 99 % No Primary Care Physician [facility] 03-11-2023 00:33-0400 Systolic blood pressure 139 mm[Hg] No Primary Care Physician [facility] 03-10-2023 21:33-0400 Body height 170.18 cm No Primary Care Physician [facility] 03-10-2023 21:33-0400 Body mass index (BMI) [Ratio] 52.4 kg/m2 No Primary Care Physician [facility] 03-10-2023 21:33-0400 Body temperature 98.6 [degF] No Primary Care Physician [facility] 03-10-2023 21:33-0400 Body weight 151.95 kg No Primary Care Physician [facility] 03-09-2023 00:35-0400 Heart rate 104 /min Jody Montanez MD Work Phone: [facility] 03-09-2023 00:23-0400 Diastolic blood pressure 73 mm[Hg] Jody Montanez MD Work Phone: [facility] 03-09-2023 00:23-0400 Systolic blood pressure 139 mm[Hg] Jody Montanez MD Work Phone: [facility] 03-09-2023 00:05-0400 Body temperature 98.2 [degF] Jody Montanez MD Work Phone: [facility] 03-09-2023 00:05-0400 Respiratory rate 18 /min Jody Montanez MD Work Phone: [facility] 02-27-2023 09:50-0400 Diastolic blood pressure 98 mm[Hg] Hailey Cornejoell PA-C Work Phone: [facility] 02-27-2023 09:50-0400 Heart rate 101 /min Hailey Constantinenfell PA-C Work Phone: [facility] 02-27-2023 09:50-0400 Systolic blood pressure 129 mm[Hg] Hailey Constantinenfell PA-C Work Phone: [facility] 02-19-2023 09:16-0400 Body height 171.5 cm Brando Bischof DO Work Phone: [facility] 02-19-2023 09:16-0400 Body mass index (BMI) [Ratio] 51.69 kg/m2 Brando Bischof DO Work Phone: [facility] 02-19-2023 09:16-0400 Body temperature 97.81 [degF] Brando Bischof DO Work Phone: [facility] 02-19-2023 09:16-0400 Body weight 151.96 kg Brando Bischof DO Work Phone: [facility] 02-19-2023 09:16-0400 Diastolic blood pressure 85 mm[Hg] Brando Bischof DO Work Phone: [facility] 02-19-2023 09:16-0400 Heart rate 89 /min Brando Bischof DO Work Phone: [facility] 02-19-2023 09:16-0400 Systolic blood pressure 110 mm[Hg] Brando Greene DO Work Phone: [facility] 12-29-2022 08:00-0400 Body temperature 97.81 [degF] Jody Montanez MD Work Phone: [facility] 12-29-2022 08:00-0400 Diastolic blood pressure 58 mm[Hg] Jody Montanez MD Work Phone: [facility] 12-29-2022 08:00-0400 Heart rate 61 /min Jody Montanez MD Work Phone: [facility] 12-29-2022 08:00-0400 Respiratory rate 18 /min Jody Montanez MD Work Phone: [facility] 12-29-2022 08:00-0400 SaO2% (BldA) [Mass fraction] 96 % Jody Montanez MD Work Phone: [facility] 12-29-2022 08:00-0400 Systolic blood pressure 122 mm[Hg] Jody Montanez MD Work Phone: [facility] 12-26-2022 16:47-0400 Body height 171.5 cm Jody Montanez MD Work Phone: [facility] 12-26-2022 16:47-0400 Body mass index (BMI) [Ratio] 51.39 kg/m2 Jody Montanez MD Work Phone: [facility] 12-26-2022 16:47-0400 Body weight 151.05 kg Jody Montanez MD Work Phone: [facility] 12-24-2022 19:04-0400 Body temperature 98.01 [degF] Kin eNves MD Work Phone: [facility] 12-24-2022 19:03-0400 Body height 171.5 cm Kin Neves MD Work Phone: [facility] 12-24-2022 19:03-0400 Body mass index (BMI) [Ratio] 50.92 kg/m2 Kin Neves MD Work Phone: [facility] 12-24-2022 19:03-0400 Body weight 149.69 kg Kin Neves MD Work Phone: [facility] 12-24-2022 19:03-0400 Diastolic blood pressure 68 mm[Hg] Kin Neves MD Work Phone: [facility] 12-24-2022 19:03-0400 Heart rate 87 /min Kin Neves MD Work Phone: [facility] 12-24-2022 19:03-0400 Respiratory rate 16 /min Kin Neves MD Work Phone: [facility] 12-24-2022 19:03-0400 Systolic blood pressure 139 mm[Hg] Kin Neves MD Work Phone: [facility] 12-05-2022 09:29-0400 Body height 170.18 cm No Primary Care Physician [facility] 12-05-2022 09:29-0400 Body mass index (BMI) [Ratio] 51 kg/m2 No Primary Care Physician [facility] 12-05-2022 09:29-0400 Body weight 147.87 kg No Primary Care Physician [facility] 12-05-2022 09:29-0400 Diastolic blood pressure 96 mm[Hg] No Primary Care Physician [facility] 12-05-2022 09:29-0400 Heart rate 95 /min No Primary Care Physician [facility] 12-05-2022 09:29-0400 Respiratory rate 20 /min No Primary Care Physician [facility] 12-05-2022 09:29-0400 SaO2% (BldA) [Mass fraction] 99 % No Primary Care Physician [facility] 12-05-2022 09:29-0400 Systolic blood pressure 150 mm[Hg] No Primary Care Physician [facility] 11-29-2022 18:41-0400 Diastolic blood pressure 81 mm[Hg] [place] [facility] 11-29-2022 18:41-0400 Heart rate 77 /min [facility] 11-29-2022 18:41-0400 Respiratory rate 16 /min [facility] 11-29-2022 18:41-0400 SaO2% (BldA) [Mass fraction] 99 % Out [facility] 11-29-2022 18:41-0400 Systolic blood pressure 132 mm[Hg] Out [facility] 11-29-2022 13:29-0400 Body height 170.18 cm Out [facility] 11-29-2022 13:29-0400 Body mass index (BMI) [Ratio] 50.7 kg/m2 Out [facility] 11-29-2022 13:29-0400 Body temperature 98 [degF] Out [facility] 11-29-2022 13:29-0400 Body weight 147 kg Out [facility] 10-21-2022 21:55-0500 Diastolic blood pressure 60 mm[Hg] Out [facility] 10-21-2022 21:55-0500 Systolic blood pressure 128 mm[Hg] Out [facility] 10-21-2022 21:15-0500 Heart rate 79 /min Out [facility] 10-21-2022 21:15-0500 Respiratory rate 18 /min Out [facility] 10-21-2022 21:15-0500 SaO2% (BldA) [Mass fraction] 99 % Out [facility] 10-21-2022 19:13-0500 Body height 170.18 cm Out [facility] 10-21-2022 19:13-0500 Body mass index (BMI) [Ratio] 36 kg/m2 Out [facility] 10-21-2022 19:13-0500 Body temperature 96.8 [degF] Out [facility] 10-21-2022 19:13-0500 Body weight 104.32 kg Out [facility] 09-23-2022 02:50-0500 Diastolic blood pressure 88 mm[Hg] Out [facility] 09-23-2022 02:50-0500 Heart rate 89 /min Out [facility] 09-23-2022 02:50-0500 Respiratory rate 18 /min Out [facility] 09-23-2022 02:50-0500 SaO2% (BldA) [Mass fraction] 100 % Out [facility] 09-23-2022 02:50-0500 Systolic blood pressure 142 mm[Hg] Out [facility] 09-23-2022 00:08-0500 Body height 170.18 cm Out [facility] 09-23-2022 00:08-0500 Body mass index (BMI) [Ratio] 51.7 kg/m2 Out [facility] 09-23-2022 00:08-0500 Body temperature 98.3 [degF] Out [facility] 09-23-2022 00:08-0500 Body weight 149.68 kg Out [facility] 09-14-2022 22:56-0500 Diastolic blood pressure 78 mm[Hg] Out [facility] 09-14-2022 22:56-0500 Heart rate 106 /min Out [facility] 09-14-2022 22:56-0500 Respiratory rate 16 /min Out [facility] 09-14-2022 22:56-0500 SaO2% (BldA) [Mass fraction] 99 % Out [facility] 09-14-2022 22:56-0500 Systolic blood pressure 145 mm[Hg] Out [facility] 09-14-2022 18:45-0500 Body height 171.45 cm Out [facility] Work Phone: 09-14-2022 18:45-0500 Body mass index (BMI) [Ratio] 23.6 kg/m2 Out [facility] 09-14-2022 18:45-0500 Body temperature 97.6 [degF] Out [facility] 09-14-2022 18:45-0500 Body weight 69.51 kg Out [facility] 09-12-2022 09:09-0500 Body height 171.5 cm Aarti Huertas PA-C Work Phone: [facility] 09-12-2022 09:09-0500 Body weight 150.19 kg Aartiyunior Huertas PA-C Work Phone: [facility] 09-12-2022 09:09-0500 Diastolic blood pressure 85 mm[Hg] Aarti Marie MEDEL-Kait Work Phone: [facility] 09-12-2022 09:09-0500 Heart rate 88 /min Aarti Huertas PA-C Work Phone: [facility] 09-12-2022 09:09-0500 SaO2% (BldA) [Mass fraction] 96 % Aartiyunior Huertas PA-C Work Phone: [facility] 09-12-2022 09:09-0500 Systolic blood pressure 149 mm[Hg] Aarti MEDEL-Kait Work Phone: [facility] 09-07-2022 07:12-0500 Body mass index (BMI) [Ratio] 52 kg/m2 Out [facility] 09-07-2022 07:12-0500 Body temperature 97.1 [degF] Out [facility] 09-07-2022 07:12-0500 Body weight 150.59 kg Out [facility] 09-07-2022 07:12-0500 Diastolic blood pressure 82 mm[Hg] Out [facility] 09-07-2022 07:12-0500 Heart rate 91 /min Out [facility] 09-07-2022 07:12-0500 Respiratory rate 18 /min Out [facility] 09-07-2022 07:12-0500 SaO2% (BldA) [Mass fraction] 96 % Out [facility] 09-07-2022 07:12-0500 Systolic blood pressure 142 mm[Hg] Out [facility] 08-28-2022 07:16-0500 Body height 170.18 cm Out [facility] Work Phone: 08-28-2022 07:16-0500 Body weight 149.68 kg Out [facility] 08-25-2022 13:50-0500 Body mass index (BMI) [Ratio] 51.7 kg/m2 Out [facility] 08-08-2022 15:08-0500 Body mass index (BMI) [Ratio] 50.9 kg/m2 Out [facility] 08-08-2022 15:08-0500 Body weight 149.68 kg Out [facility] 08-08-2022 15:08-0500 Diastolic blood pressure 95 mm[Hg] Out [facility] 08-08-2022 15:08-0500 Heart rate 85 /min Out [facility] 08-08-2022 15:08-0500 Respiratory rate 18 /min Out [facility] 08-08-2022 15:08-0500 SaO2% (BldA) [Mass fraction] 98 % [facility] 08-08-2022 15:08-0500 Systolic blood pressure 158 mm[Hg] [facility] 06-19-2022 13:11-0400 Body height 171.5 cm Koli Green FORMULA CHECKER.SCHEDULE CHECKER Work Phone: [facility] 06-19-2022 13:11-0400 Body weight 148.55 kg Koli Green FORMULA CHECKER.SCHEDULE CHECKER Work Phone: [facility] 06-19-2022 13:11-0400 Diastolic blood pressure 94 mm[Hg] Koli Green FORMULA CHECKER.SCHEDULE CHECKER Work Phone: [facility] 06-19-2022 13:11-0400 Heart rate 77 /min Koli Green FORMULA CHECKER.SCHEDULE CHECKER Work Phone: [facility] 06-19-2022 13:11-0400 SaO2% (BldA) [Mass fraction] 98 % Koli Green FORMULA CHECKER.SCHEDULE CHECKER Work Phone: [facility] 06-19-2022 13:11-0400 Systolic blood pressure 136 mm[Hg] Koli Green FORMULA CHECKER.SCHEDULE CHECKER Work Phone: [facility] 06-09-2022 08:10-0400 Body height 171.45 cm Out [facility] Work Phone: 06-09-2022 08:10-0400 Body mass index (BMI) [Ratio] 51.4 kg/m2 Out [facility] 06-09-2022 08:10-0400 Body temperature 97.7 [degF] [facility] 06-09-2022 08:10-0400 Body weight 151.1 kg Out [facility] 06-09-2022 08:10-0400 Diastolic blood pressure 93 mm[Hg] [facility] 06-09-2022 08:10-0400 Heart rate 81 /min Out [facility] 06-09-2022 08:10-0400 Respiratory rate 18 /min [facility] 06-09-2022 08:10-0400 SaO2% (BldA) [Mass fraction] 98 % [facility] 06-09-2022 08:10-0400 Systolic blood pressure 134 mm[Hg] [facility] 05-08-2022 12:26-0400 Body height 170.[address] JORGE LUIS WATERMAN MD [facility] 05-08-2022 12:26-0400 Body temperature 98.42 [degF] DR JORGE LUIS WATERMAN MD [facility] 05-08-2022 12:26-0400 Body weight [address] JORGE LUIS WATERMAN MD [facility] 05-08-2022 12:26-0400 Diastolic blood pressure 89 mm[Hg] DR JORGE LUIS WATERMAN MD [facility] 05-08-2022 12:26-0400 Heart rate 84 /min DR JORGE LUIS WATERMAN MD [facility] 05-08-2022 12:26-0400 Respiratory rate 20 /min DR JORGE LUIS WATERMAN MD [facility] 05-08-2022 12:26-0400 Systolic blood pressure 146 mm[Hg] DR JORGE LUIS WATERMAN MD [facility] 04-25-2022 11:17-0400 Body height 170.18 cm No Primary Care Physician [facility] Work Phone: 04-25-2022 11:05-0400 Body mass index (BMI) [Ratio] 52 kg/m2 No Primary Care Physician [facility] Work Phone: 04-25-2022 11:05-0400 Body weight 150.59 kg No Primary Care Physician [facility] Work Phone: 04-25-2022 11:05-0400 Diastolic blood pressure 75 mm[Hg] No Primary Care Physician [facility] Work Phone: 04-25-2022 11:05-0400 Heart rate 81 /min No Primary Care Physician [facility] Work Phone: 04-25-2022 11:05-0400 Respiratory rate 16 /min No Primary Care Physician [facility] Work Phone: 04-25-2022 11:05-0400 Systolic blood pressure 126 mm[Hg] No Primary Care Physician [facility] Work Phone: 03-22-2022 22:17-0400 Diastolic blood pressure 74 mm[Hg] SPECIMEN COLLECTOR-C Marisela Watkins SPECIMEN COLLECTOR Work Phone: [facility] Work Phone: 03-22-2022 22:17-0400 Heart rate 79 /min SPECIMEN COLLECTOR-C Marisela Watkins SPECIMEN COLLECTOR Work Phone: [facility] Work Phone: 03-22-2022 22:17-0400 Respiratory rate 16 /min SPECIMEN COLLECTOR-Kait Watkins SPECIMEN COLLECTOR Work Phone: [facility] Work Phone: 03-22-2022 22:17-0400 SaO2% (BldA) [Mass fraction] 99 % SPECIMEN COLLECTOR-Kait Watkins SPECIMEN COLLECTOR Work Phone: [facility] Work Phone: 03-22-2022 22:17-0400 Systolic blood pressure 138 mm[Hg] SPECIMEN COLLECTOR-C Marisela Watkins SPECIMEN COLLECTOR Work Phone: [facility] Work Phone: 03-22-2022 18:31-0400 Body height 170.18 cm SPECIMEN COLLECTOR-C Marisela Watkins SPECIMEN COLLECTOR Work Phone: [facility] Work Phone: 03-22-2022 18:31-0400 Body mass index (BMI) [Ratio] 53.1 kg/m2 SPECIMEN COLLECTOR-C Marisela Watkins SPECIMEN COLLECTOR Work Phone: [facility] Work Phone: 03-22-2022 18:31-0400 Body temperature 98.9 [degF] SPECIMEN COLLECTOR-C Marisela Watkins SPECIMEN COLLECTOR Work Phone: [facility] Work Phone: 03-22-2022 18:31-0400 Body weight 154 kg SPECIMEN COLLECTOR-C Marisela Watkins SPECIMEN COLLECTOR Work Phone: [facility] Work Phone: 03-09-2022 00:41-0400 Diastolic blood pressure 79 mm[Hg] SPECIMEN COLLECTOR-C Marisela Watkins SPECIMEN COLLECTOR Work Phone: [facility] Work Phone: 03-09-2022 00:41-0400 Heart rate 75 /min SPECIMEN COLLECTOR-C Marisela Watkins SPECIMEN COLLECTOR Work Phone: [facility] Work Phone: 03-09-2022 00:41-0400 Respiratory rate 18 /min SPECIMEN COLLECTOR-C Marisela Watkins SPECIMEN COLLECTOR Work Phone: [facility] Work Phone: 03-09-2022 00:41-0400 SaO2% (BldA) [Mass fraction] 99 % SPECIMEN COLLECTOR-C Marisela Watkins SPECIMEN COLLECTOR Work Phone: [facility] Work Phone: 03-09-2022 00:41-0400 Systolic blood pressure 144 mm[Hg] SPECIMEN COLLECTOR-C Marisela Watkins SPECIMEN COLLECTOR Work Phone: [facility] Work Phone: 03-08-2022 21:35-0400 Body mass index (BMI) [Ratio] 51.7 kg/m2 SPECIMEN COLLECTOR-C Marisela Watkins SPECIMEN COLLECTOR Work Phone: [facility] Work Phone: 03-08-2022 21:35-0400 Body temperature 98 [degF] SPECIMEN COLLECTOR-C Marisela Watkins SPECIMEN COLLECTOR Work Phone: [facility] Work Phone: 03-08-2022 21:35-0400 Body weight 149.68 kg SPECIMEN COLLECTOR-C Marisela Watkins SPECIMEN COLLECTOR Work Phone: [facility] Work Phone: 02-28-2022 11:36-0400 Body height 171.5 cm Aarti Huertas PA-C Work Phone: [facility] 02-28-2022 11:36-0400 Body weight 150.37 kg Aarti Huertas PA-C Work Phone: [facility] 02-28-2022 11:36-0400 Diastolic blood pressure 89 mm[Hg] Aarti Huertas PA-C Work Phone: [facility] 02-28-2022 11:36-0400 Heart rate 93 /min Aarti Huertas PA-C Work Phone: [facility] 02-28-2022 11:36-0400 Systolic blood pressure 137 mm[Hg] Aarti Marie PA-C Work Phone: [facility] 02-10-2022 10:10-0400 Body height 170.2 cm Girish Correa APRN.SCHEDULE CHECKER Work Phone: [facility] 02-10-2022 10:10-0400 Body weight 151.96 kg Girish Correa FORMULA CHECKER.SCHEDULE CHECKER Work Phone: [facility] 02-10-2022 10:10-0400 Diastolic blood pressure 93 mm[Hg] Girish Correa APRN.SCHEDULE CHECKER Work Phone: [facility] 02-10-2022 10:10-0400 Heart rate 72 /min Girish Correa APRN.SCHEDULE CHECKER Work Phone: [facility] 02-10-2022 10:10-0400 SaO2% (BldA) [Mass fraction] 100 % Girish Correa FORMULA CHECKER.SCHEDULE CHECKER Work Phone: [facility] 02-10-2022 10:10-0400 Systolic blood pressure 137 mm[Hg] Girish Correa APRN.SCHEDULE CHECKER Work Phone: [facility] 01-17-2022 09:18-0400 Body mass index (BMI) [Ratio] 51.3 kg/m2 SPECIMEN COLLECTOR-C Marisela Watkins SPECIMEN COLLECTOR Work Phone: [facility] Work Phone: 01-17-2022 09:18-0400 Body weight 148.77 kg SPECIMEN COLLECTOR-C Marisela Watkins SPECIMEN COLLECTOR Work Phone: [facility] Work Phone: 01-17-2022 09:18-0400 Diastolic blood pressure 80 mm[Hg] SPECIMEN COLLECTOR-C Marisela Watkins SPECIMEN COLLECTOR Work Phone: [facility] Work Phone: 01-17-2022 09:18-0400 Heart rate 83 /min SPECIMEN COLLECTOR-C Marisela Watkins SPECIMEN COLLECTOR Work Phone: [facility] Work Phone: 01-17-2022 09:18-0400 Respiratory rate 18 /min SPECIMEN COLLECTOR-C Marisela Watkins SPECIMEN COLLECTOR Work Phone: [facility] Work Phone: 01-17-2022 09:18-0400 Systolic blood pressure 119 mm[Hg] SPECIMEN COLLECTOR-C Marisela Watkins SPECIMEN COLLECTOR Work Phone: [facility] Work Phone: 01-04-2022 21:37-0400 Diastolic blood pressure 76 mm[Hg] SPECIMEN COLLECTOR-Kait Watkins SPECIMEN COLLECTOR Work Phone: [facility] Work Phone: 01-04-2022 21:37-0400 Heart rate 86 /min SPECIMEN COLLECTOR-C Marisela Watkins SPECIMEN COLLECTOR Work Phone: [facility] Work Phone: 01-04-2022 21:37-0400 Respiratory rate 16 /min SPECIMEN COLLECTOR-C Marisela Watkins SPECIMEN COLLECTOR Work Phone: [facility] Work Phone: 01-04-2022 21:37-0400 SaO2% (BldA) [Mass fraction] 98 % SPECIMEN COLLECTOR-C Marisela Watkins SPECIMEN COLLECTOR Work Phone: [facility] Work Phone: 01-04-2022 21:37-0400 Systolic blood pressure 159 mm[Hg] SPECIMEN COLLECTOR-C Marisela Watkins SPECIMEN COLLECTOR Work Phone: [facility] Work Phone: 01-04-2022 20:00-0400 Body height 170.18 cm SPECIMEN COLLECTOR-C Marisela Watkins SPECIMEN COLLECTOR Work Phone: [facility] Work Phone: 01-04-2022 20:00-0400 Body mass index (BMI) [Ratio] 53.4 kg/m2 SPECIMEN COLLECTOR-C Marisela Watkins SPECIMEN COLLECTOR Work Phone: [facility] Work Phone: 01-04-2022 20:00-0400 Body temperature 98.3 [degF] SPECIMEN COLLECTOR-C Marisela Watkins SPECIMEN COLLECTOR Work Phone: [facility] Work Phone: 01-04-2022 20:00-0400 Body weight 154.9 kg SPECIMEN COLLECTOR-C Marisela Watkins SPECIMEN COLLECTOR Work Phone: [facility] Work Phone: 11-22-2021 08:39-0400 Body mass index (BMI) [Ratio] 51.7 kg/m2 SPECIMEN COLLECTOR-C Marisela Watkins SPECIMEN COLLECTOR Work Phone: [facility] Work Phone: 11-22-2021 08:39-0400 Body weight 149.91 kg SPECIMEN COLLECTOR-C Marisela Watkins SPECIMEN COLLECTOR Work Phone: [facility] Work Phone: 11-22-2021 08:39-0400 Diastolic blood pressure 84 mm[Hg] SPECIMEN COLLECTOR-C Marisela Watkins SPECIMEN COLLECTOR Work Phone: [facility] Work Phone: 11-22-2021 08:39-0400 Heart rate 76 /min SPECIMEN COLLECTOR-C Marisela Watkins SPECIMEN COLLECTOR Work Phone: [facility] Work Phone: 11-22-2021 08:39-0400 Respiratory rate 16 /min SPECIMEN COLLECTOR-C Marisela Watkins SPECIMEN COLLECTOR Work Phone: [facility] Work Phone: 11-22-2021 08:39-0400 Systolic blood pressure 120 mm[Hg] SPECIMEN COLLECTOR-C Marisela Watkins SPECIMEN COLLECTOR Work Phone: [facility] Work Phone: 11-22-2021 08:39-0400 Body mass index (BMI) [Ratio] 51.7 kg/m2 SPECIMEN COLLECTOR-C Marisela Watkins SPECIMEN COLLECTOR Work Phone: [facility] Work Phone: 11-22-2021 08:39-0400 Body weight 149.91 kg SPECIMEN COLLECTOR-C Marisela Watkins SPECIMEN COLLECTOR Work Phone: [facility] Work Phone: 11-22-2021 08:39-0400 Diastolic blood pressure 84 mm[Hg] SPECIMEN COLLECTOR-C Marisela Watkins SPECIMEN COLLECTOR Work Phone: [facility] Work Phone: 11-22-2021 08:39-0400 Heart rate 76 /min SPECIMEN COLLECTOR-C Marisela Watkins SPECIMEN COLLECTOR Work Phone: [facility] Work Phone: 11-22-2021 08:39-0400 Respiratory rate 16 /min SPECIMEN COLLECTOR-C Marisela Watkins SPECIMEN COLLECTOR Work Phone: [facility] Work Phone: 11-22-2021 08:39-0400 Systolic blood pressure 120 mm[Hg] SPECIMEN COLLECTOR-C Marisela Watkins SPECIMEN COLLECTOR Work Phone: [facility] Work Phone: 11-19-2021 23:21-0500 Diastolic blood pressure 95 mm[Hg] SPECIMEN COLLECTOR-C Marisela Watkins SPECIMEN COLLECTOR Work Phone: [facility] Work Phone: 11-19-2021 23:21-0500 Heart rate 77 /min SPECIMEN COLLECTOR-C Marisela Watkins SPECIMEN COLLECTOR Work Phone: [facility] Work Phone: 11-19-2021 23:21-0500 Respiratory rate 18 /min SPECIMEN COLLECTOR-C Marisela Watkins SPECIMEN COLLECTOR Work Phone: [facility] Work Phone: 11-19-2021 23:21-0500 SaO2% (BldA) [Mass fraction] 98 % SPECIMEN COLLECTOR-C Marisela Watkins SPECIMEN COLLECTOR Work Phone: [facility] Work Phone: 11-19-2021 23:21-0500 Systolic blood pressure 147 mm[Hg] SPECIMEN COLLECTOR-C Marisela Watkins SPECIMEN COLLECTOR Work Phone: [facility] Work Phone: 11-19-2021 20:25-0500 Body mass index (BMI) [Ratio] 52.8 kg/m2 SPECIMEN COLLECTOR-C Marisela Watkins SPECIMEN COLLECTOR Work Phone: [facility] Work Phone: 11-19-2021 20:25-0500 Body temperature 98.5 [degF] SPECIMEN COLLECTOR-C Marisela Watkins SPECIMEN COLLECTOR Work Phone: [facility] Work Phone: 11-19-2021 20:25-0500 Body weight 153.1 kg SPECIMEN COLLECTOR-C Marisela Watkins SPECIMEN COLLECTOR Work Phone: [facility] Work Phone: 09-10-2021 19:00-0500 Diastolic blood pressure 63 mm[Hg] SPECIMEN COLLECTOR-C Marisela Watkins SPECIMEN COLLECTOR Work Phone: [facility] Work Phone: 09-10-2021 19:00-0500 Heart rate 83 /min SPECIMEN COLLECTOR-C Marisela Watkins SPECIMEN COLLECTOR Work Phone: [facility] Work Phone: 09-10-2021 19:00-0500 Respiratory rate 22 /min SPECIMEN COLLECTOR-C Marisela Watkins SPECIMEN COLLECTOR Work Phone: [facility] Work Phone: 09-10-2021 19:00-0500 SaO2% (BldA) [Mass fraction] 100 % SPECIMEN COLLECTOR-C Marisela Watkins SPECIMEN COLLECTOR Work Phone: [facility] Work Phone: 09-10-2021 19:00-0500 Systolic blood pressure 113 mm[Hg] SPECIMEN COLLECTOR-C Marisela Watkins SPECIMEN COLLECTOR Work Phone: [facility] Work Phone: 09-10-2021 16:14-0500 Body mass index (BMI) [Ratio] 50.8 kg/m2 SPECIMEN COLLECTOR-C Marisela Watkins SPECIMEN COLLECTOR Work Phone: [facility] Work Phone: 09-10-2021 16:14-0500 Body temperature 97.1 [degF] SPECIMEN COLLECTOR-C Marisela Watkins SPECIMEN COLLECTOR Work Phone: [facility] Work Phone: 09-10-2021 16:14-0500 Body weight 147.41 kg SPECIMEN COLLECTOR-C Marisela Watkins SPECIMEN COLLECTOR Work Phone: [facility] Work Phone: 06-07-2021 11:44-0400 Body height 170.18 cm Mega I med Work Phone: XB-WRYSK-Xkcuowg [facility] Work Phone: 06-07-2021 11:44-0400 Body mass index (BMI) [Ratio] 49.34 kg/m2 Mega I Ahmed Work Phone: ZM-FXFBZ-Jsdnzrq [facility] Work Phone: 06-07-2021 11:44-0400 Body surface area Derived from formula 2.45 m2 Mega I Ahmed Work Phone: UJ[facility]THSSJ[facility] Work Phone: 06-07-2021 11:44-0400 Body weight 142.88 kg Mega I Ahmed Work Phone: GT-DAAQF-[facility] Work Phone: 06-07-2021 11:44-0400 4 1 Mega I Ahmed Work Phone: NL-NORKV-Mberdnq [facility] Work Phone: Comment on above: GRAV 06-07-2021 11:44-0400 0 1 Mega I Ahmed Work Phone: YO-EBMNH-Gproyxr [facility] Work Phone: Comment on above: [employer] 04-10-2021 22:40-0400 Body temperature 97.88 [degF] Mega Ahmed Other Phone: [facility] 04-10-2021 22:40-0400 Diastolic blood pressure 75 mm[Hg] Mega Ahmed Other Phone: [facility] 04-10-2021 22:40-0400 Heart rate 91 /min Mega Ahmed Other Phone: [facility] 04-10-2021 22:40-0400 Respiratory rate 18 /min Mega Ahmed Other Phone: [facility] 04-10-2021 22:40-0400 SaO2% (BldA) [Mass fraction] 96 % Mega Ahmed Other Phone: [facility] 04-10-2021 22:40-0400 Systolic blood pressure 116 mm[Hg] Mega Ahmed Other Phone: [facility] 04-10-2021 17:41-0400 Body height 170.1 cm Mega Weeks Other Phone: [facility] 04-10-2021 17:41-0400 Body weight 145.5 kg Mega Weeks Other Phone: [facility] 12-18-2019 17:51-0400 BMI (Body Mass Index) 47.7 kg/m2 Umair Sepulveda KW-XTKYA-Llnvvm 310 [facility] Work Phone: 12-18-2019 17:51-0400 Body weight 136.08 kg Umair Sepulveda VT-EBUXY-Keqjyz 310 [facility] Work Phone: 12-18-2019 17:51-0400 BSA (Body Surface Area) 2.39 m2 Umair Sepulveda ME-GECYR-Tscved 310 [facility] Work Phone: 12-18-2019 17:51-0400 Height 168.91 cm Umair Sepulveda CL-ASRGM-Wiavix 310 [facility] Work Phone: 12-18-2019 17:51-0400 3 1 Umair Sepulveda FW-ZVMVG-Gksctk 310 IV[facility] Work Phone: Comment on above: 12-18-2019 17:51-0400 0 1 Umair Sepulveda LK-RLPAR-Xcbjeg 310 [facility] Work Phone: Comment on above: Para Pain Scale 07-07-2019 10:57-0400 BMI (Body Mass Index) 51.62 kg/m2 [facility] [employer] Work Phone: 07-07-2019 10:57-0400 Body weight 149.51 kg [facility] [employer] Work Phone: 07-07-2019 10:57-0400 BP Diastolic 80 mm[Hg] [facility] [employer] Work Phone: Comment on above: Location: [place]; Position: Sitting 07-07-2019 10:57-0400 BP Systolic 126 mm[Hg] [facility] [employer] Work Phone: Comment on above: Location: [place]; Position: Sitting 07-07-2019 10:57-0400 BSA (Body Surface Area) 2.5 m2 Gallito Rosales [employer] Work Phone: 07-07-2019 10:57-0400 Height 170.18 cm Gallito [facility] [employer] Work Phone: 07-07-2019 10:57-0400 0 1 Gallito Rosales [employer] Work Phone: Comment on above: Para 07-07-2019 10:57-0400 3 1 Gallito Rosales [employer] Work Phone: Comment on above: 06-04-2019 18:00-0400 BMI (Body Mass Index) 50.75 kg/m2 [facility]ito [facility] [employer] Work Phone: 06-04-2019 18:00-0400 Body weight 146.97 kg Gallito Rosales [employer] Work Phone: 06-04-2019 18:00-0400 BP Diastolic 72 mm[Hg] [facility]ito [facility] [employer] Work Phone: 06-04-2019 18:00-0400 BP Systolic 112 mm[Hg] [facility]ito [facility] [employer] Work Phone: 06-04-2019 18:00-0400 BSA (Body Surface Area) 2.48 m2 Gallito [employer] [employer] Work Phone: 06-04-2019 18:00-0400 Height 170.18 cm Gallito Rosales [employer] Work Phone: 06-04-2019 18:00-0400 2 1 Gallito Rosales [employer] Work Phone: Comment on above: 06-04-2019 18:00-0400 1 1 Gallito Rosales [facility] Work Phone: Comment on above: Para 06-07-2018 14:03-0400 BMI (Body Mass Index) 50.12 kg/m2 [facility] 06-07-2018 14:03-0400 Body Temperature 98.01 [degF] [facility] 06-07-2018 14:03-0400 BP Diastolic 83 mm[Hg] [facility] 06-07-2018 14:03-0400 BP Systolic 127 mm[Hg] [facility] 06-07-2018 14:03-0400 Height 170.2 cm [facility] 06-07-2018 14:03-0400 Pulse (Heart Rate) 105 /min [facility] 06-07-2018 14:03-0400 Pulse Oximetry 96 % [facility] 06-07-2018 14:03-0400 Respiratory Rate 18 /min [facility] 06-07-2018 14:03-0400 Weight 145.15 kg [facility] Encounters Encounter Date Encounter Type Care Provider Facility Start: 04-21-2025 End: 04-21-[address] John Conrad MD -[facility] Work Phone: Start: 04-21-2025 End: 04-21-[address] Mega Weeks MD Work Phone: -[facility] Start: 04-13-2025 End: 04-13-2025 Orders Only Brock Eid MD Work Phone: Cardiology Comment on above: Nonsustained ventric ular tachycardia (HCC) (Primary Dx); Status post ablation operation for arrhythmia; PVC (premature ventricular contraction) Start: 04-06-2025 End: 04-06-2025 Telephone encounter Nitin Rock MD Work Phone: [facility] [place] Comment on above: Appointment Start: 03-12-2025 End: 03-12-2025 ambulatory Infusion Main Chair 6 Work Phone: Neurology Comment on above: Chronic migraine wit hout aura, with intractable migraine, so stated, with status migrainosus (Primary Dx) Start: 03-12-2025 End: 03-12-2025 Patient encounter procedure Dalila Fernandez APRN.KEVIN Work Phone: Neurology Comment on above: Chronic migraine wit hout aura, with intractable migraine, so stated, with status migrainosus (Primary Dx) Start: 03-11-2025 End: 03-11-2025 ambulatory Infusion Main Chair 6 Work Phone: Neurology Comment on above: Chronic migraine wit hout aura, with intractable migraine, so stated, with status migrainosus (Primary Dx) Start: 03-10-2025 End: 03-10-2025 Office outpatient visit 10 minutes Aarti Huertas PA-C Work Phone: Neurology Comment on above: Chronic migraine wit hout aura, with intractable migraine, so stated, with status migrainosus (Primary Dx) Start: 03-10-2025 End: 03-10-2025 ambulatory Infusion Main Chair 6 Work Phone: Neurology Comment on above: Chronic migraine wit hout aura, with intractable migraine, so stated, with status migrainosus (Primary Dx) Start: 03-09-2025 End: 03-09-2025 Telemedicine consultation with patient Aga Salazarbetsey BAILEYN.KEVIN Work Phone: Neurology Start: 03-09-2025 End: 03-09-2025 ambulatory Mohammad Hamdan FORMULA CHECKER.SCHEDULE CHECKER Work Phone: Neurology Comment on above: Chronic migraine wit hout aura, with intractable migraine, so stated, with status migrainosus (Primary Dx); Intractable chronic migraine without aura and with status migrainosus Start: 03-06-2025 End: 03-06-2025 Patient encounter procedure Irma Mcintosh PA-C Work Phone: Neurology Comment on above: Patient left without being seen (Primary Dx) Start: 03-06-2025 End: 03-06-2025 Telemedicine consultation with patient Irma Mcintosh PA-C Work Phone: Neurology Start: 03-06-2025 End: 03-06-2025 ambulatory IRMA MCINTOSH Facility:[facility] Start: 03-05-2025 End: 03-05-2025 ambulatory MEGA WEEKS MD Facility:D Start: 03-04-2025 End: 04-03-2025 Telephone encounter Hector Robin MD Work Phone: [facility] [place] Start: 02-25-2025 End: 02-26-2025 ambulatory MEGA WEEKS Facility:[place] [facility] Start: 02-25-2025 End: 02-25-2025 Admission to same day surgery center Akira Gracia MD Work Phone: Neurosurgery Comment on above: Left-sided weakness (Primary Dx); Migraine without status migrainosus, not intractable, unspecified migraine type Start: 02-25-2025 End: 02-25-2025 Telemedicine consultation with patient Akira Gracia MD Work Phone: Neurosurgery Start: 02-25-2025 End: 02-25-2025 Telephone encounter Marie Cameron APRN.CNP Work Phone: [facility] Comment on above: Appointment; Patient Update Start: 02-24-2025 End: 02-25-2025 ambulatory HECTOR ROBIN Facility:[facility] Start: 02-20-2025 End: 02-20-2025 Patient encounter procedure [facility] Work Phone: Start: 02-20-2025 End: 02-20-2025 ambulatory No Primary Care Physician [facility] Work Phone: Start: 02-19-2025 End: 02-19-2025 Emergency department patient visit MEGA CARLSON DESI Facility:[place] [facility] Start: 02-09-2025 End: 02-09-2025 Telephone encounter Ag Card Work Phone: [facility] Cardiology [place] Comment on above: Preparations For Pro cedures Start: 02-09-2025 End: 02-09-2025 Patient encounter procedure Lise Nevarez FORMULA CHECKER.SCHEDULE CHECKER Work Phone: Neurology Comment on above: Intractable chronic migraine without aura and with status migrainosus (Primary Dx); Chronic migraine without aura, intractable, without status migrainosus Start: 02-09-2025 End: 02-09-2025 ambulatory LISE NEVAREZ Facility:[facility] Start: 01-16-2025 Registered Referred Marisela Baltazar -Cardiovascular Services Work Phone: Start: 01-16-2025 ambulatory [facility] Facility:[facility] Start: 01-16-2025 Non-patient / Non-visit Dr. Billie Sanchez MD -[facility] Work Phone: Start: 01-13-2025 End: 01-13-2025 ambulatory KARIN ОЛЕГ Facility:[facility] Start: 01-13-2025 End: 01-16-2025 ambulatory CESAR SANCHEZ Facility:[facility] Start: 01-12-2025 Non-patient / Non-visit Dr. Kenyatta GALEANO -[facility] Start: 01-12-2025 Non-patient / Non-visit Dr. Billie Sanchez MD -[facility] Start: 01-12-2025 ambulatory [facility] Facility:[facility] Start: 01-11-2025 Non-patient / Non-visit Dr. Shayla del rosario MD -[facility] Start: 01-11-2025 ambulatory Shayla Rios Facility:[facility] Start: 01-11-2025 End: 01-12-2025 Evaluation and management of inpatient Dr. Cesar Sanchez MD -Progressive Care Unit Work Phone: Start: 01-08-2025 End: 01-08-2025 Patient encounter procedure Marisela BENNETT -[facility] Work Phone: Start: 01-08-2025 End: 01-08-2025 ambulatory [facility] Facility:[facility] Start: 01-06-2025 End: 01-06-2025 Emergency department patient visit SARAH Vallejo [facility] Start: 01-06-2025 End: 01-06-2025 Subsequent hospital visit by physician Dae Calderonv1 [facility] Start: 01-06-2025 End: 01-06-2025 Emergency department patient visit MEGA WEEKS [facility] Comment on above: Palpitations (Primar y Dx); Near syncope Start: 12-28-2024 End: 12-31-2024 ambulatory Nitin Rock MD Work Phone: [facility] Comment on above: Increased episodes Start: 12-16-2024 End: 12-16-2024 Office outpatient visit 25 minutes Nitin Rock MD Work Phone: [facility] Comment on above: Paroxysmal supravent ricular tachycardia (HCC) (Primary Dx); Palpitations; Implantable loop recorder present; POTS (postural orthostatic tachycardia syndrome); Obesity, Class III, BMI >= 40; Obstructive sleep apnea syndrome Start: 12-16-2024 End: 12-16-2024 ambulatory NITIN ROCK Facility:[facility] Start: 12-03-2024 End: 12-03-2024 Emergency department patient visit Dr. Madeleine Hebert DO Work Phone: -Emergency Department Work Phone: Start: 11-18-2024 End: 11-18-2024 Patient encounter procedure Alison MEDEL -[facility] Work Phone: Start: 11-18-2024 End: 11-18-[address] Madeleine Hebert DO Work Phone: [facility] Work Phone: Start: 11-18-2024 End: 11-18-2024 ambulatory No Primary Care Physician Facility:[facility] Start: 09-17-2024 End: 09-17-[address] John Conrad MD -[facility] Work Phone: Start: 09-17-2024 End: 09-17-2024 Emergency department patient visit Dr. Steve Oliveira DO -Emergency Department Work Phone: Start: 09-17-2024 End: 09-17-2024 Subsequent hospital visit by physician Xr [facility] Work Phone: Radiology Comment on above: Acute cough [R05.1] Start: 09-17-2024 End: 09-17-2024 ambulatory MEGA WEEKS Facility:[facility] Start: 09-17-2024 End: 09-17-2024 Office outpatient visit 15 minutes Cecil Hahn APRN.SCHEDULE CHECKER Work Phone: [facility] Comment on above: Acute cough (Primary Dx); Pleuritic pain Start: 08-22-2024 End: 08-22-2024 Patient encounter procedure Waleska Acevedo PA-C Work Phone: Neurology Comment on above: Status migrainosus ( Primary Dx) Start: 08-22-2024 End: 08-22-2024 ambulatory Infusion Main Chair 3 Work Phone: Neurology Comment on above: Chronic migraine wit hout aura, intractable, without status migrainosus (Primary Dx) Start: 08-21-2024 End: 08-25-2024 ambulatory MEGA WEEKS MD Facility:D Start: 08-21-2024 End: 08-21-2024 ambulatory Infusion Main Chair 7 Work Phone: Neurology Comment on above: Chronic migraine wit hout aura, intractable, without status migrainosus (Primary Dx) Start: 08-20-2024 End: 08-20-2024 ambulatory Infusion Main Chair 7 Work Phone: Neurology Comment on above: Chronic migraine wit hout aura, intractable, without status migrainosus (Primary Dx) Start: 08-19-2024 End: 08-19-2024 Telephone encounter Dalila Fernandez APRN.SCHEDULE CHECKER Work Phone: Neurology Comment on above: Patient Request Start: 08-19-2024 End: 08-19-2024 ambulatory HAILEY MARLOW Facility:[facility] Start: 08-18-2024 End: 08-19-2024 Emergency department patient visit Dr. Madeleine Hebert DO -Emergency Department Work Phone: Start: 08-01-2024 End: 08-01-2024 ambulatory DALILA FERNANDEZ Facility:[facility] Start: 08-01-2024 End: 08-01-2024 Patient encounter procedure Dalila Fernandez FORMULA CHECKER.SCHEDULE CHECKER Work Phone: Neurology Comment on above: Chronic migraine wit hout aura, intractable, without status migrainosus (Primary Dx); Spells of decreased attentiveness Start: 06-24-2024 End: 06-24-2024 Emergency department patient visit Out of Town Doctor Facility:[facility] Start: 06-24-2024 End: 06-24-2024 ambulatory John Conrad Facility:[facility] Start: 05-16-2024 End: 05-16-2024 ambulatory WASHINGTON MONDRAGON OB/Gynecology Start: 05-16-2024 End: 05-16-2024 Patient encounter procedure [employer] OB/Gynecology Start: 05-01-2024 End: 05-01-2024 ambulatory DALILA FERNANDEZ Facility:[facility] Start: 05-01-2024 End: 05-01-2024 Patient encounter procedure Dalila Fernandez FORMULA CHECKER.SCHEDULE CHECKER Work Phone: Neurology Comment on above: Chronic migraine wit hout aura, intractable, without status migrainosus (Primary Dx) Start: 04-30-2024 End: 04-30-2024 ambulatory WASHINGTON MONDRAGON Facility:[facility] Start: 04-30-2024 End: 04-30-2024 Patient encounter procedure Washington Mondragon FORMULA CHECKER.SCHEDULE CHECKER Work Phone: OB/Gynecology Comment on above: Abnormal uterine ble eding (Primary Dx); Class 3 severe obesity with body mass index (BMI) of 50.0 to 59.9 in adult, unspecified obesity type, unspecified whether serious comorbidity present (HCC) Start: 04-09-2024 ambulatory Mega Viri [facility] Facility :[facility] Start: 04-09-2024 Encounter for genera l adult medical examination without abnormal findings [facility] Start: 01-24-2024 End: 01-24-2024 Patient encounter procedure Dalila Fernandez APRN.SCHEDULE CHECKER Work Phone: Neurology Comment on above: Chronic migraine wit hout aura, intractable, without status migrainosus (Primary Dx) Start: 12-15-2023 End: 12-15-2023 Subsequent hospital visit by physician Xr [facility] Work Phone: Radiology Comment on above: Toe pain, left [M79. 675] Start: 12-15-2023 End: 12-15-2023 Patient encounter procedure Lauro Diaz MD Work Phone: [facility] Comment on above: Toe pain, left (Prim michael Dx) Start: 11-23-2023 Telephone encounter Dalila Mckeon APRN.SCHEDULE CHECKER Work Phone: Neurology Comment on above: Referral Request; Vincent tox Injection Start: 11-23-2023 End: 11-23-2023 ambulatory Dalila Fernandez FORMULA CHECKER.SCHEDULE CHECKER Work Phone: Neurology Comment on above: Chronic migraine wit hout aura, intractable, without status migrainosus (Primary Dx) Start: 11-23-2023 End: 11-23-2023 Telemedicine consultation with patient Dalila J Rebecca ONEILSCHEDULE CHECKER Work Phone: [facility] Start: 11-20-2023 End: 11-20-2023 ambulatory DEFINED NOT [facility] Work Phone: Start: 11-20-2023 End: 11-20-2023 Patient encounter procedure DEFINED NOT [facility] Work Phone: Start: 09-30-2023 End: 09-30-2023 Emergency department patient visit MEGA CARLSON [facility] Facility:[id number] Start: 09-30-2023 End: 09-30-2023 Patient encounter procedure DEFINED NOT [facility] Work Phone: Start: 09-07-2023 ambulatory Mega Weeks Facility :[facility] Start: 08-29-2023 Telephone encounter Washington virgen APRN.SCHEDULE CHECKER Work Phone: OB/Gynecology Comment on above: Patient Update Start: 08-29-2023 End: 08-29-2023 Patient encounter procedure Washington Longrafaela PATEL Work Phone: OB/Gynecology Comment on above: History of gestation al diabetes (Primary Dx); Vaginal dryness; Lactating mother; Amenorrhea; History of pre-eclampsia Start: 06-27-2023 End: 06-27-2023 ambulatory BRENDA WATKINS [facility] Start: 06-18-2023 End: 06-18-2023 ambulatory [facility] Start: 06-10-2023 End: 06-10-2023 Emergency department patient visit SPECIMEN COLLECTOR-Kait Lou SPECIMEN COLLECTOR Work Phone: [facility]-Emergency Department Work Phone: Start: 05-31-2023 ambulatory [facility] Facility :[facility] Start: 05-31-2023 End: 05-31-2023 Patient encounter procedure SPECIMEN COLLECTORDelaney Lou SPECIMEN COLLECTOR Work Phone: [facility] Work Phone: Start: 05-30-2023 End: 05-30-2023 Patient encounter procedure Aarti Huertas PA-C Work Phone: Neurology Comment on above: Status migrainosus ( Primary Dx); Chronic migraine without aura, intractable, without status migrainosus Start: 05-28-2023 End: 05-28-2023 Patient encounter procedure SPECIMEN COLLECTORDelaney Lou SPECIMEN COLLECTOR Work Phone: [facility] Work Phone: Start: 05-20-2023 End: 05-20-2023 Patient encounter procedure SPECIMEN COLLECTOR-Kait Lou SPECIMEN COLLECTOR Work Phone: [facility] Work Phone: Start: 05-17-2023 End: 05-17-20[facility] Start: 05-15-2023 End: 05-16-2023 Emergency department patient visit [facility] Start: 05-15-2023 End: 05-16-2023 Emergency department patient visit [facility] Facility:[facility] Start: 05-08-2023 End: 05-09-2023 Evaluation and management of inpatient Michi Holland MD Work Phone: [facility] Start: 05-07-2023 End: 05-12-2023 Evaluation and management of inpatient [facility]UY [facility] Start: 05-07-2023 End: 05-12-2023 Evaluation and management of inpatient Marychuy Burleson MD Work Phone: [facility] Comment on above: S/P (Prima ry Dx); Velamentous insertion of umbilical cord, antepartum; Edema Start: 05-03-2023 End: 05-03-2023 ambulatory JODY A [facility] Start: 04-30-2023 End: 04-30-2023 ambulatory [facility] Start: 04-26-2023 End: 04-26-2023 ambulatory [facility] Start: 04-25-2023 End: 04-25-2023 ambulatory [facility] Start: 04-25-2023 End: 04-25-2023 Subsequent hospital visit by physician Kin Neves MD Work Phone: [facility] OB TRIAGE Start: 04-23-2023 End: 04-23-2023 ambulatory [facility] Start: 04-19-2023 End: 04-19-2023 ambulatory [facility] Start: 04-16-2023 End: 04-16-2023 ambulatory [facility] Start: 04-11-2023 Telephone encounter Zulma Mayers DDS Work Phone: Dentistry Comment on above: Patient Update Start: 04-10-2023 End: 04-10-2023 ambulatory No Primary Care Physician [facility] Work Phone: Start: 04-10-2023 End: 04-10-2023 Patient encounter procedure No Primary Care Physician [facility] Work Phone: Start: 04-09-2023 End: 04-09-2023 ambulatory [facility] Start: 04-08-2023 End: 04-08-2023 ambulatory MARY GAYE [facility] Start: 04-07-2023 End: 04-08-2023 Subsequent hospital visit by physician Mary Dao DO Work Phone: [facility] OB TRIAGE Start: 04-06-2023 End: 04-06-2023 ambulatory [facility] Start: 04-06-2023 Telephone encounter Zulma Mayers DDS Work Phone: Dentistry Comment on above: Patient Update Start: 04-05-2023 End: 04-05-2023 ambulatory ZULMA THI MAYERS Facility:[id number] Start: 04-05-2023 End: 04-05-2023 Patient encounter procedure Zulma Ness Talib DDS Work Phone: Dentistry Comment on above: Pain, dental (Primar y Dx) Start: 04-03-2023 End: 04-04-2023 ambulatory [facility] Start: 04-03-2023 End: 04-03-2023 ambulatory [facility] Start: 03-29-2023 End: 03-29-2023 ambulatory [facility] Start: 03-28-2023 End: 03-29-2023 ambulatory ZULMA NESS TALIB Facility:[id number] Start: 03-28-2023 End: 03-28-2023 Patient encounter procedure Zulma Thi Mayers DDS Work Phone: Dentistry Comment on above: Symptomatic irrevers ible pulpitis (Primary Dx); Dental caries extending into dentine Start: 03-26-2023 End: 03-26-2023 [facility] Start: 03-22-2023 End: 03-22-2023 [facility] Start: 03-21-2023 End: 03-21-2023 [facility] LEV DAVILA [facility] Start: 03-21-2023 End: 03-21-2023 Office outpatient visit 15 minutes Lev Davila MD Work Phone: [facility] Comment on above: Chronic migraine wit hout aura without status migrainosus, not intractable (Primary Dx); Somatic dysfunction of head region; Somatic dysfunction of cervical region; Somatic dysfunction of thoracic region Start: 03-20-2023 Telephone encounter Zandra william DO Work Phone: [facility] Start: 03-19-2023 End: 03-19-2023 [facility] Start: 03-19-2023 End: 03-19-2023 Patient encounter procedure No Primary Care Physician [facility]-Laboratory Work Phone: Start: 03-10-2023 End: 03-11-2023 Emergency department patient visit No Primary Care Physician [facility]-Emergency Department Work Phone: Start: 03-09-2023 End: 03-09-2023 [facility] Start: 03-08-2023 End: 03-09-2023 Subsequent hospital visit by physician Jody Montanez MD Work Phone: [facility] Start: 03-05-2023 End: 03-05-2023 [facility] Start: 02-27-2023 End: 02-27-2023 Patient encounter procedure Hailey Marlow PA-C Work Phone: Neurology Comment on above: Status migrainosus ( Primary Dx); 27 weeks gestation of Start: 02-26-2023 End: 02-26-2023 ambulatory Giselle Renner APRN.CNP Work Phone: Neurology Comment on above: Status migrainosus ( Primary Dx) Start: 02-26-2023 End: 02-26-2023 Telemedicine consultation with patient Giselle Renner APRN.SCHEDULE CHECKER Work Phone: [facility] Start: 02-20-2023 End: 02-20-2023 ambulatory LAURA LUDWIG [facility] Start: 02-19-2023 End: 02-19-2023 [facility] Start: 02-19-2023 End: 02-19-2023 ambulatory [facility] Start: 02-19-2023 End: 02-19-2023 Patient encounter procedure Orion Farias MD Work Phone: [facility] Comment on above: Chronic migraine wit hout aura without status migrainosus, not intractable (Primary Dx); Somatic dysfunction of head region; Somatic dysfunction of cervical region; Somatic dysfunction of thoracic region Start: 02-06-2023 End: 02-06-2023 ambulatory No Primary Care Physician [facility] Work Phone: Start: 02-06-2023 End: 02-06-2023 Patient encounter procedure No Primary Care Physician [facility]-Laboratory Start: 02-01-2023 End: 02-02-2023 ambulatory [facility] Start: 01-24-2023 ambulatory [facility] Start: 01-22-2023 Patient encounter procedure [facility] Start: 01-22-2023 End: 01-22-2023 ambulatory [facility] Start: 01-16-2023 End: 01-16-2023 ambulatory [facility] Start: 01-03-2023 End: 01-03-2023 Patient encounter procedure No Primary Care Physician [facility] Start: 01-02-2023 End: 01-02-2023 ambulatory [facility] Start: 12-26-2022 End: 12-29-2022 Evaluation and management of inpatient JODY MONTANEZ [facility] Start: 12-26-2022 End: 12-29-2022 Evaluation and management of inpatient Jody Montanez MD Work Phone: [facility] Antepartum Start: 12-26-2022 End: 12-26-2022 [facility] Start: 12-24-2022 End: 12-24-2022 ambulatory KIN EDINSON [facility] Start: 12-24-2022 End: 12-24-2022 Subsequent hospital visit by physician Kin Neves MD Work Phone: [facility] H2 OB TRIAGE Start: 12-18-2022 [facility] Start: 12-05-2022 End: 12-06-2022 [facility] Start: 12-05-2022 End: 12-05-2022 Subsequent hospital visit by physician Brenda CALDWELL Work Phone: [facility] Comment on above: Hypothyroidism compl icating , first trimester Start: 12-05-2022 End: 12-05-2022 Patient encounter procedure No Primary Care Physician [facility] Start: 12-01-2022 End: 12-01-2022 Patient encounter procedure No Primary Care Physician [facility] Start: 11-29-2022 End: 11-29-2022 Emergency department patient visit Out Town Doctor [facility]-Emergency Department Start: 11-21-2022 End: 11-22-2022 [facility] Start: 11-21-2022 End: 11-21-2022 Subsequent hospital visit by physician Kerry Robbins MD Work Phone: [facility] Comment on above: 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; Supervision of other high risk pregnancies, first trimester Start: 11-21-2022 End: 11-21-2022 ambulatory SARAH SHEEHAN [facility] Start: 11-21-2022 End: 11-21-2022 ambulatory [facility] Start: 11-14-2022 End: 11-14-2022 ambulatory CHANTEL [facility] Start: 11-07-2022 End: 11-07-2022 ambulatory SARAH SHEEHAN [facility] Start: 11-06-2022 End: 11-07-2022 ambulatory [facility] Start: 11-06-2022 End: 11-06-2022 ambulatory BRENDA [facility] Start: 11-06-2022 End: 11-06-2022 Subsequent hospital visit by physician Laura Ludwig PA-C Work Phone: [facility] Comment on above: Recurrent loss; Genetic screening Paroxysmal supravent ricular tachycardia Start: 10-26-2022 End: 10-27-2022 ambulatory BRENDA [facility] Start: 10-26-2022 End: 10-26-2022 Subsequent hospital visit by physician Brenda CALDWELL Work Phone: [facility] Comment on above: Supervision of other high risk pregnancies, first trimester; History of multiple miscarriages; Genetic screening; Screening for genetic disease carrier status Start: 10-24-2022 End: 10-24-2022 ambulatory [facility] Start: 10-21-2022 End: 10-21-2022 Emergency department patient visit Out [facility]Emergency Department Start: 10-18-2022 End: 10-18-2022 Patient encounter procedure Out [facility] Start: 10-12-2022 End: 10-12-2022 ambulatory CHANTEL [facility] Start: 10-06-2022 End: 10-06-2022 ambulatory Out of Town [facility] Work Phone: Start: 10-06-2022 End: 10-06-2022 Patient encounter procedure Out [facility]-Laboratory Start: 10-05-2022 End: 10-05-2022 ambulatory MEGA WEEKS I [facility] Start: 09-27-2022 End: 09-27-2022 Patient encounter procedure Out [facility] Start: 09-23-2022 End: 09-23-2022 Emergency department patient visit Out [facility]Emergency Department Start: 09-22-2022 End: 09-22-2022 Patient encounter procedure Out [facility] Start: 09-22-2022 End: 09-22-2022 Non-patient / Non-visit Out [facility] Start: 09-16-2022 End: 09-16-2022 ambulatory Out of [facility] Work Phone: Start: 09-16-2022 End: 09-16-2022 Patient encounter procedure Out [facility]Labor[facility] Start: 09-14-2022 End: 09-14-2022 Emergency department patient visit Out [facility]Emergency Department Start: 09-12-2022 End: 09-12-2022 Patient encounter procedure Aarti Huertas PA-C Work Phone: Neurology Comment on above: Chronic migraine wit hout aura, intractable, without status migrainosus (Primary Dx) Start: 09-07-2022 Telephone encounter Reema Abbott RN Neurology Comment on above: Referral Request (Vincent tox renewal) Start: 09-07-2022 End: 09-07-2022 Patient encounter procedure Out [facility] Start: 08-28-2022 End: 08-28-2022 Admission to same day surgery center Out [facility]/Special Procedures Start: 08-28-2022 End: 08-28-2022 ambulatory Out of [facility] Work Phone: Start: 08-08-2022 End: 08-08-2022 Patient encounter procedure Out [facility] Start: 08-02-2022 Patient encounter procedure Pastor Abbott [facility] Start: 07-10-2022 End: 07-10-2022 ambulatory Out of Town Doctor [facility] Work Phone: Start: 07-10-2022 End: 07-10-2022 Patient encounter procedure Out [facility]-Sleep Lab Start: 06-19-2022 End: 06-19-2022 Patient encounter procedure Tamiko Garry ONEILSCHEDULE CHECKER Work Phone: Neurology Comment on above: Chronic migraine wit hout aura, intractable, without status migrainosus (Primary Dx) Start: 06-09-2022 End: 06-09-2022 Patient encounter procedure Out [facility] Start: 05-08-2022 End: 05-08-2022 Emergency department patient visit DR JORGE LUIS WATERMAN MD [facility] Start: 05-04-2022 End: 05-04-2022 ambulatory No Primary Care Physician [facility] Work Phone: Start: 05-04-2022 End: 05-04-2022 Patient encounter procedure No Primary Care Physician [facility]-Sleep Lab Start: 05-01-2022 End: 05-01-2022 Patient encounter procedure TOMMY AGUAYO MD [facility] Start: 04-25-2022 End: 04-25-2022 Patient encounter procedure No Primary Care Physician [facility] Start: 03-22-2022 End: 03-22-2022 Emergency department patient visit DONALD Watkins NP Work Phone: [facility]-Emergency Department Start: 03-21-2022 Chart Update Mega Weeks Work Phone: [id number] IVF Work Phone: Start: 03-20-2022 AUDIT Mega Weeks Work Phone: [id number] IVF Work Phone: Start: 03-08-2022 End: 03-09-2022 Emergency department patient visit SPECIMEN COLLECTOR-Kait Watkins SPECIMEN COLLECTOR Work Phone: [facility]-Emergency Department Start: 03-01-2022 Orders Only Aarti Huertas PA-C Work Phone: Neurology Start: 02-28-2022 End: 02-28-2022 Patient encounter procedure Aarti Huertas PA-C Work Phone: Neurology Comment on above: Chronic migraine wit hout aura, intractable, without status migrainosus (Primary Dx) Start: 02-13-2022 Telephone encounter Nitin boswell MD Work Phone: [facility] Comment on above: follow up Start: 02-10-2022 Telephone encounter Girish walters APRN.SCHEDULE CHECKER Work Phone: [facility] Comment on above: Orders Start: 02-10-2022 End: 02-10-2022 Patient encounter procedure Girish Correa APRN.SCHEDULE CHECKER Work Phone: [facility] Comment on above: Paroxysmal supravent ricular tachycardia (HCC) (Primary Dx); POTS (postural orthostatic tachycardia syndrome); Syncope, unspecified syncope type; Obesity, Class III, BMI >= 40 Start: 01-19-2022 Patient encounter status Donovan Rock MD Work Phone: [facility] Start: 01-19-2022 Telephone encounter Nitin boswell MD Work Phone: [facility] Comment on above: Preparations For Pro cedures (SVT Ablation) Start: 01-17-2022 End: 01-17-2022 Patient encounter procedure DONALD Watkins SPECIMEN COLLECTOR Work Phone: [facility] Start: 01-04-2022 End: 01-04-2022 Emergency department patient visit SPECIMEN COLLECTORDelaney Watkins SPECIMEN COLLECTOR Work Phone: [facility]-Emergency Department Start: 11-22-2021 End: 11-22-2021 Patient encounter procedure SPECIMEN COLLECTORDelaney Watkins SPECIMEN COLLECTOR Work Phone: [facility] Start: 11-19-2021 End: 11-20-2021 Emergency department patient visit SPECIMEN COLLECTOR-Kait Watkins SPECIMEN COLLECTOR Work Phone: [facility]-Emergency Department Start: 09-10-2021 End: 09-10-2021 Emergency department patient visit SPECIMEN COLLECTOR-Kait Watkins SPECIMEN COLLECTOR Work Phone: [facility]-Emergency Department Start: 06-07-2021 Office outpatient vi sit 15 minutes Mega I Ahmed Work Phone: [id number] 2nd Fl Work Phone: Start: 04-25-2021 Patient encounter procedure Mega I Ahmed Work Phone: [id number] 310 IVF Work Phone: Start: 04-18-2021 Chart Update Mega I Ahmed Work Phone: [id number] 310 IVF Work Phone: Start: 04-15-2021 Chart Update Mega I Ahmed Work Phone: [id number] 310 IVF Work Phone: Start: 04-11-2021 Patient encounter procedure Mega I Ahmed Work Phone: [id number] 310 IVF Work Phone: Start: 04-11-2021 Telephone encounter Mega I A hmed Work Phone: [id number] 310 IVF Work Phone: Start: 04-10-2021 End: 04-10-2021 Emergency department patient visit Aga Colón ED Bed 08 A Start: 04-08-2021 Telephone encounter Mega I A hmed Work Phone: [id number] [id number] IVF Work Phone: Start: 04-05-2021 Chart Update Mega I Ahmed Work Phone: [id number] 310 IVF Work Phone: Start: 04-02-2021 Chart Update Mega Becerramed Work Phone: [id number] 310 IVF Work Phone: Start: 03-29-2021 AUDIT Mega Acosta Ahmed Work Phone: [id number] 310 IVF Work Phone: Start: 03-03-2021 Rx Renewal Mega Becerramed Work Phone: [id number] 310 IVF Work Phone: Start: 10-18-2020 Patient encounter procedure Umair Sepulveda [id number] 310 IVF Work Phone: Start: 07-24-2020 Patient encounter procedure Umair Sepulveda [id number] 310 IVF Work Phone: Start: 07-20-2020 Patient encounter procedure Umair Sepulveda [id number] 310 IVF Work Phone: Start: 02-24-2020 Patient encounter procedure Umair Sepulveda [id number] 310 IVF Work Phone: Start: 02-12-2020 Patient encounter procedure Umair Sepulveda [id number] 310 IVF Work Phone: Start: 02-09-2020 Patient encounter procedure Umair Sepulveda [id number] 310 IVF Work Phone: Start: 12-18-2019 Patient encounter procedure Umair Sepulveda [id number] 310 IVF Work Phone: Start: 09-15-2019 Patient encounter procedure Umair Sepulveda [id number] 310 IVF Work Phone: Start: 07-07-2019 Patient encounter procedure Gallito Rosales [facility] Work Phone: Start: 06-07-2018 End: 06-07-2018 Patient encounter MEGA CARLSON [facility] Start: 06-07-2018 End: 06-07-2018 Office outpatient new 20 minutes Tan Mitchell Work Phone: [facility] Keiko Vasquez Comment on above: Other acute sinusiti s, recurrence not specified (Primary Dx) Start: 05-18-2017 Ambulatory UNKNOWN PROVIDER [facility] Procedures Date Procedure Procedure Detail Performing Clinician Start: 01-12-2025 Estimated creatinine clearance No Primary Care Physician Start: 01-11-2025 Serum inorganic phos phate measurement No Primary Care Physician Start: 01-11-2025 Methadone measurement, urine No Primary Care Physician Start: 01-11-2025 Urnls dip stick/tabl et reagent auto microscopy No Primary Care Physician Start: 01-11-2025 Plain chest X-ray No Pr ary Care Physician Start: 01-06-2025 Urinalysis microscop ic panel - Urine Qualitative by Automated Sarah [employer] Work Phone: Start: 01-06-2025 Urine test visual color cmprsn meths Sarah [employer] Work Phone: Start: 01-06-2025 Urnls dip stick/tabl et reagent auto microscopy Sarah [employer] Work Phone: Start: 01-06-2025 Radiologic exam ches t single view Sarah [employer] Work Phone: Start: 01-06-2025 End: 01-06-2025 Comprehensive metabolic panel Sarah [employer] Work Phone: Start: 01-06-2025 Troponin I.cardiac p monik - Serum or Plasma by High sensitivity method Sarah [employer] Work Phone: Start: 01-06-2025 Ecg routine ecg w/le ast 12 lds trcg only w/o i&r Sarah [employer] Work Phone: Start: 12-16-2024 Ecg routine ecg w/le ast 12 lds w/i&r Nitin Rock MD Work Phone: Start: 12-03-2024 Plain chest X-ray Dr. Wesly Hebert DO Work Phone: Start: 12-03-2024 Estimated creatinine clearance No Primary Care Physician Start: 11-18-2024 Evaluation of diagno stic study results Dr. Madeleine Hebert DO Work Phone: Start: 09-17-2024 CT angiography of ch est with contrast Dr. Madeleine Hebert DO Work Phone: Start: 09-17-2024 X-ray of chest, PA a nd lateral views Dr. Madeleine Hebert DO Work Phone: Start: 09-17-2024 Radiologic exam ches t 2 views Cecil Hahn FORMULA CHECKER.SCHEDULE CHECKER Work Phone: Start: 08-18-2024 CT of head without contrast Dr. Madeleine Hebert DO Work Phone: Start: 05-16-2024 Us pelvic nonobstetr ic real-time image complete Washington Mondragon APRN.SCHEDULE CHECKER Work Phone: Start: 12-15-2023 Radex toe minimum 2 views Lauro Diaz MD Work Phone: Start: 06-10-2023 SARS-CoV-2 & FLU Ant igen (Rapid) SPECIMEN COLLECTOR-C Erlinda Lou SPECIMEN COLLECTOR Work Phone: Start: 05-16-2023 Microscopic urinalysis Pastor Abbott Start: 05-15-2023 Computed tomography of abdomen and pelvis with contrast Pastor Abbott Start: 05-15-2023 Lumbar puncture usin g fluoroscopic guidance Pastor Abbott Start: 05-11-2023 Dup-scan xtr veins unilateral/limited study Jennifer Thompson DO Work Phone: Start: 05-10-2023 End: 05-10-2023 Blood count hemoglobin Marychuy little MD Work Phone: Start: 05-09-2023 PULSE OXIMETRY, SPOT Vincent isabelle Mehta FORMULA CHECKER - [employer]ER[employer] PROFESSION[employer] Work Phone: Start: 05-09-2023 PULSE OXIMETRY, SPOT Vincent Mehta FORMULA CHECKER - CIVIL ENGINEERING PROFESSIONAL Work Phone: Start: 05-09-2023 PULSE OXIMETRY, SPOT Vincent isabelle Mehta FORMULA CHECKER - CIVIL ENGINEERING PROFESSIONAL Work Phone: Start: 05-09-2023 PULSE OXIMETRY, SPOT Vincent isabelle Mehta FORMULA CHECKER - CIVIL ENGINEERING PROFESSIONAL Work Phone: Start: 05-09-2023 Glucose quantitative blood xcpt reagent strip Marychuy Burleson MD Work Phone: Start: 05-09-2023 Glucose quantitative blood xcpt reagent strip Marychuy Burleson MD Work Phone: Start: 05-09-2023 Tap block bilateral by injection(s) Gabriel Mehta FORMULA CHECKER - CIVIL ENGINEERING PROFESSIONAL Work Phone: Start: 05-09-2023 Level v surg patholo gy gross&microscopic exam Hanna Smith DO Work Phone: Start: 05-08-2023 Glucose quantitative blood xcpt reagent strip Marychuy Burleson MD Work Phone: Start: 05-08-2023 Epidural anesthesia Jay bryan Strickland FORMULA CHECKER - CIVIL ENGINEERING PROFESSIONAL Work Phone: Start: 05-08-2023 Glucose quantitative blood xcpt reagent strip Marychuy Burleson MD Work Phone: Start: 05-08-2023 Glucose quantitative blood xcpt reagent strip Marychuy Burleson MD Work Phone: Start: 05-08-2023 Glucose quantitative blood xcpt reagent strip Marychuy Burleson MD Work Phone: Start: 05-08-2023 Glucose quantitative blood xcpt reagent strip Marychuy Burleson MD Work Phone: Start: 05-08-2023 Glucose quantitative blood xcpt reagent strip Marychuy Burleson MD Work Phone: Start: 05-07-2023 Glucose quantitative blood xcpt reagent strip Marychuy Burleson MD Work Phone: Start: 05-07-2023 Blood typing serologic abo Letitia Reyes MD Work Phone: Start: 05-07-2023 End: 05-07-2023 Comprehensive metabolic panel Letitia Reyes MD Work Phone: Start: 05-07-2023 OXYGEN THERAPY Letitia dhaliwal MD Work Phone: Start: 04-16-2023 Iadna streptococcus group b amplified probe tq Marychuy Burleson MD Work Phone: Start: 04-05-2023 UNSPECIFIED ENDODONT IC PROCEDURE, BY REPORT Narciso Fields DMD Work Phone: Start: 04-03-2023 Thyrotropin [Units/v olume] in Serum or Plasma Mary Dao DO Work Phone: Start: 03-28-2023 13 ENDODONTIC THERAP Y, PREMOLAR TOOTH (EXCLUDING FINAL VOODOO) Narciso Fields DMD Work Phone: Start: 03-28-2023 LIMITED ORAL EVALUAT ION - PROBLEM FOCUSED Narciso Fields DMD Work Phone: Start: 03-21-2023 Adult depression scr eening assessment Zandra Liz DO Work Phone: Start: 03-19-2023 Urine culture No Primar y Care Physician Start: 03-09-2023 Bacterial vaginosis and vaginitis rRNA panel - Vaginal fluid by Probe Alyssa Mckeon DO Work Phone: Start: 02-01-2023 Thyrotropin [Units/v olume] in Serum or Plasma Brando Greene DO Work Phone: Start: 12-28-2022 Us preg uterus w/det ail kayla 1st gestation Shaw Del Angel MD Work Phone: Start: 12-27-2022 Mri brain brain stem w/o contrast material Maggie Bejarano FORMULA CHECKER - SCHEDULE CHECKER Work Phone: Start: 12-26-2022 Culture bacterial quanttative colony count urine Shaw Del Angel MD Work Phone: Start: 12-26-2022 ABO and Rh group [Ty pe] in Blood by Confirmatory method Nadia Jones DO Work Phone: Start: 12-26-2022 Blood typing serolog ic rh (d) Nadia Jones DO Work Phone: Start: 12-26-2022 Comprehensive metabo lic panel Nadia Jones DO Work Phone: Start: 12-24-2022 Comprehensive metabo lic panel Shahnaz Hahn DO Work Phone: Start: 12-24-2022 Iadna chlamydia trac homatis amplified probe tq Shaw Del Angel MD Work Phone: Start: 12-24-2022 Thyrotropin [Units/v olume] in Serum or Plasma Kin Neves MD Work Phone: Start: 12-05-2022 Assay of thyroid sti mulating hormone tsh Brenda Watkins FORMULA CHECKER-SCHEDULE CHECKER Work Phone: Start: 11-06-2022 Basic metabolic pane l calcium total Laura Ludwig PA-C Work Phone: Start: 10-21-2022 Transvaginal obstetr ic ultrasonography [place] Doctor Start: 10-06-2022 Antibody hiv-1&hiv-2 single result Bárbara Mason FORMULA CHECKER - SCHEDULE CHECKER Work Phone: Start: 10-06-2022 Hemoglobin glycosylated a1c Bárbara Mason FORMULA CHECKER - SCHEDULE CHECKER Work Phone: Start: 10-06-2022 Iaad ia hepatitis b surface antigen Bárbara Mason FORMULA CHECKER - SCHEDULE CHECKER Work Phone: Start: 09-14-2022 Transvaginal obstetr ic ultrasonography [place] Doctor Start: 03-22-2022 Plain chest X-ray SPECIMEN COLLECTOR-C Marisela Watkins SPECIMEN COLLECTOR Work Phone: Start: 03-08-2022 Computed tomography of abdomen and pelvis with intravenous contrast SPECIMEN COLLECTOR-Kait Watkins SPECIMEN COLLECTOR Work Phone: Start: 02-27-2022 Adult depression scr eening assessment Aarti Huertas PAZahidaC Work Phone: Start: 02-10-2022 Ecg routine ecg w/le ast 12 lds w/i&r Girish Correa APRN.SCHEDULE CHECKER Work Phone: Start: 11-19-2021 Plain chest X-ray SPECIMEN COLLECTOR-C Marisela Watkins SPECIMEN COLLECTOR Work Phone: Start: 11-08-2021 Adult depression scr eening assessment Nitin Rock MD Work Phone: Start: 12-18-2019 Hemoglobin glycosylated a1c Umair Sepulveda Start: 07-07-2019 ABO and Rh group vásquez el - [facility] Start: 07-07-2019 [facility] Start: 07-07-2019 Antibody rubella [facility] Start: 07-07-2019 Antibody Screen Group Test [facility] Start: 07-07-2019 Culture bacterial quanttative colony count urine [facility] Start: 07-07-2019 Drug Screen, Urine Sherrie ra Rosales Start: 07-07-2019 Gonadotropin chorion ic quantitative [facility] Start: 07-07-2019 Hemoglobin glycosylated a1c [facility] Start: 07-07-2019 Hepatitis c antibody [facility] Start: 07-07-2019 Iadna chlamydia trac homatis amplified probe tq [facility] Start: 07-07-2019 Profile [facility] Start: 07-07-2019 Ultrasound Addl Gest less than 1 Trimstr [facility] Start: 06-24-2019 Gonadotropin chorion ic qualitative Letitia Shen Start: 01-06-2019 Microscopic observat ion [Identifier] in Cervix by Cyto stain Mega Weeks MD Work Phone: section Anhtuan T H uynh DO Work Phone: Cholecystectomy Sherriera Hernandez ar Dilation and curettage [facility] Extraction of wisdom tooth S oghra Maryfar H/O: section S/P Lilia Burleson MD Work Phone: Tonsillectomy Gallito Rosales Urine culture No Primary Car e Physician Urine culture [place] Docto r Plan of Treatment Date Care Activity Detail Author Start: 2041 Zoster Vaccines (1 of 2) Zoster Vacc noy (1 of 2) [facility] Start: 09-27-2031 DTaP/Tdap/Td Vaccine s (7 - Td or Tdap) DTaP/Tdap/Td Vaccines (7 - Td or Tdap) [facility] Start: 09-27-2031 Urine microalbumin profile [facility] Start: 07-01-2025 End: 07-01-2025 Patient encounter procedure 07/01/2025 8:30 AM EDT Office Visit Cardiology [address] [id number] Brock Eid MD [address] [place] [address] DX: Nonsustained ventricular tachycardia (HCC) Cardiology Comment on above: DX: Nonsustained cathy tricular tachycardia (HCC) Start: 07-01-2025 End: 07-01-2025 ambulatory 07/01/2025 7:30 AM EDT Procedure Cardiology [address] [id number] DX: Nonsustained ventricular tachycardia (HCC) Cardiology Comment on above: DX: Nonsustained cathy tricular tachycardia (HCC) Start: 05-22-2025 Subsequent hospital visit by physician 05/22/2025 Hospital Encounter [facility] [address] [place] [address] Nitin Rock MD [address] [place] [address] Paroxysmal supraventricular tachycardia (HCC) [I47.10], Palpitations [R00.2] [facility] Comment on above: Paroxysmal supravent ricular tachycardia (HCC) [I47.10], Palpitations [R00.2] Start: 05-19-2025 End: 05-19-2025 Patient encounter procedure 05/19/2025 8:00 AM EDT Office Visit Neurology [address] [place] [address] Aarti Huertas PA-C [address] [place] [address] botox Neurology Comment on above: botox Start: 05-11-[address] [facility] Start: 05-07-2025 End: 05-07-2025 Patient encounter procedure 05/07/2025 9:20 AM EDT Office Visit [facility] [place] [address] [place] [address] Nitin Rock MD [address] [phone] (Fax) hosp. f/u for monitor results- hlk [facility] [place] Comment on above: hosp. f/u for monito r results- hlk Start: 04-13-2025 End: 04-13-2025 Patient encounter procedure 04/13/2025 10:30 AM EDT Office Visit [facility] [place] [address] [place] [address] Girish Correa, FORMULA CHECKER.SCHEDULE CHECKER [address] [place] [address] hospital follow up / PVC / monitor results [facility] [place] Comment on above: hospital follow up / PVC / monitor results Start: 04-08-2025 End: 04-08-2025 Patient encounter procedure 04/08/2025 4:30 PM EDT Office Visit [facility] [place] [address] [place] [address] Marie Cameron, FORMULA CHECKER.SCHEDULE CHECKER [address] [place] [address] (Fax) hospital follow up / PVC / monitor results- hlk [facility] [place] Comment on above: hospital follow up / PVC / monitor results- hlk Start: 03-12-2025 End: 03-12-2025 ambulatory 03/12/2025 10:30 AM EDT Infusion Center Neurology [address] [place] [address] NON-DHE 3 Neurology Comment on above: NON-DHE 3 Start: 03-12-2025 End: 03-12-2025 Patient encounter procedure 03/12/2025 10:00 AM EDT Office Visit Neurology [address] [place] [address] Dalila Fernandez FORMULA CHECKER.SCHEDULE CHECKER [address] [facility] [facility] [place] [address] INFUSION DAY 3 Neurology Comment on above: INFUSION DAY 3 Start: 03-11-2025 End: 03-11-2025 ambulatory 03/11/2025 10:30 AM EDT Infusion Center Neurology [address] [place] [address] NON-DHE 2 Neurology Comment on above: NON-DHE 2 Start: 03-10-2025 End: 03-10-2025 Patient encounter procedure 03/10/2025 10:45 AM EDT Office Visit Neurology [address] [place] [address] Aarti Huertas PA-C [address] [place] [address] INFUSION DAY 1 Neurology Comment on above: INFUSION DAY 1 Start: 03-10-2025 End: 03-10-2025 ambulatory 03/10/2025 10:30 AM EDT Infusion Center Neurology [address] [place] [address] NON-DHE 1 Neurology Comment on above: NON-DHE 1 Start: 03-09-2025 End: 03-09-2025 ambulatory 03/09/2025 8:00 AM EDT [facility] Neurology [address] [place] [address] Aga Klein, FORMULA CHECKER.SCHEDULE CHECKER [address] [place] [address] discuss current migraine and infusions Neurology Comment on above: discuss current migr rena and infusions Start: 02-24-2025 Subsequent hospital visit by physician 02/24/2025 Hospital Encounter [facility] [address] [place] [address] Hector Robin MD [address] [facility] [address] [place] [address] Paroxysmal supraventricular tachycardia (HCC) [I47.10], Palpitations [R00.2] [facility] Comment on above: Paroxysmal supravent ricular tachycardia (HCC) [I47.10], Palpitations [R00.2] Start: 01-12-2025 Care planning and problem solving actions [facility] Start: 01-12-2025 Patient discharge [facility] Start: 01-11-2025 End: 01-12-2025 [facility] Start: 01-11-2025 Assessment of risk o f venous thromboembolism [facility] Start: 01-11-2025 Insertion of cathete r into peripheral vein [facility] Start: 01-11-2025 Measuring intake and output [facility] Start: 01-11-2025 Providing care accor ding to standard [facility] Start: 01-11-2025 Referral to promotions producer [facility] Start: 01-11-2025 Care planning and problem solving actions [facility] Start: 01-11-2025 Following clinical pathway protocol [facility] Start: 01-11-2025 Admission procedure [facility] Start: 01-11-2025 [facility] Start: 12-26-2024 Glaucoma screening Diabetes: R etinopathy Screening [facility] Start: 12-03-2024 [facility] Start: 12-03-2024 [facility] Start: 11-18-2024 Patient referral [facility] Work Phone: Start: 11-07-2024 End: 11-07-2024 Patient encounter procedure 11/07/2024 3:15 PM EST Office Visit Neurology [address] [place] [address] Dalila Fernandez, FORMULA CHECKER.SCHEDULE CHECKER [address] [place], [place] [id number] Botox Neurology Comment on above: Botox Start: 09-30-2024 End: 09-30-2024 Patient encounter procedure 09/30/2024 10:20 AM EST Office Visit OB/Gynecology [address] [address] Yana Nicolas MD [address] [place] [address] new weight OB/Gynecology Comment on above: new weight Start: 09-17-2024 [facility] Start: 08-29-2024 Diabetes mellitus screening Diabetes Screening [facility] Start: 08-22-2024 End: 08-22-2024 Patient encounter procedure 08/22/2024 10:00 AM EST Office Visit Neurology [address] [place] [address] Waleska Acevedo PA-C [address] [place] [address] Infusion Day #3 Neurology Comment on above: Infusion Day #3 Start: 08-22-2024 End: 08-22-2024 ambulatory Neurology Comment on above: Non-DHE Infusion Day #3 Start: 08-21-2024 End: 08-21-2024 ambulatory 08/21/2024 8:30 AM EST Infusion Center Neurology [address] [place] [address] Non-DHE Infusion Day #2 Neurology Comment on above: Non-DHE Infusion Day #2 Start: 08-19-2024 End: 08-19-2024 ambulatory 08/19/2024 1:30 PM EST [facility] Neurology [address] [place] [address] Hailey Marlow PA-C [address] [place] [address] Triage Neurology Comment on above: Triage Start: 08-19-2024 [facility] Start: 08-01-2024 End: 08-01-2024 Patient encounter procedure 08/01/2024 4:00 PM EST Office Visit Neurology [address] [place] [address] Dalila Fernandez, FORMULA CHECKER.SCHEDULE CHECKER [address] [place] [address] Botox Neurology Comment on above: Botox Start: 05-16-2024 End: 05-16-2024 ambulatory 05/16/2024 3:30 PM EDT Procedure OB/Gynecology [address] [place] [address] Abnormal uterine bleeding [N93.9] OB/Gynecology Comment on above: Abnormal uterine ble eding [N93.9] Start: 05-11-2024 COVID-19 Vaccine ( season) COVID-19 Vaccine () [facility] Start: 05-11-2024 Covid-19 Vaccine () Covid-19 Vaccine () [facility] Start: 05-11-2024 Covid-19 Vaccine () Covid-19 Vaccine () [facility] Start: 05-11-2024 Influenza vaccination Influenza Vacc ine (#1) [facility] Start: 05-08-2024 End: 05-08-2024 Patient encounter procedure 05/08/2024 4:00 PM EDT Office Visit OB/Gynecology [address] [place] [address] Washington Mondragon, FORMULA CHECKER.SCHEDULE CHECKER [address] [place] [address] annual exam OB/Gynecology Comment on above: annual exam Start: 05-01-2024 End: 05-01-2024 Patient encounter procedure 05/01/2024 1:30 PM EDT Office Visit Neurology [address] [place] [address] Dalila Fernandez, FORMULA CHECKER.SCHEDULE CHECKER [address] [place] [address] BOTOX 155u (11-26-2024) 04/29 [place] Neurology Comment on above: BOTOX 155u (11-27-19 25) 04/29 [place] Start: 04-30-2024 End: 04-30-2025 US Pelvis PELVIC US [facility]I Anc Imaging Routine Abnormal uterine bleeding Expected: 04/30/2024, Expires: 04/30/2025 [facility] Work Phone: Comment on above: Expected: 04/30/2024 , Expires: 04/30/2025 Start: 04-28-2024 End: 04-28-2024 Patient encounter procedure 04/28/2024 1:00 PM EDT Office Visit Neurology [address] [place] [address] Dalila Fernandez, FORMULA CHECKER.SCHEDULE CHECKER [address] [place] [address] botox Neurology Comment on above: botox Start: 04-03-2024 Thyroid stimulating hormone measurement TSH Level [facility] Start: 03-21-2024 Depression Screening Depression Scre ening [facility] Start: 02-02-2024 Thyroid stimulating hormone measurement TSH Level [facility] Start: 12-25-2023 Thyroid stimulating hormone measurement TSH Level [facility] Start: 10-06-2023 Hemoglobin A1c measurement Diabetes: Hemoglobin A1C [facility] Start: 09-10-2023 Depression Assessment Depression Ass essment [facility] Start: 05-15-2023 Bacteria identified in Blood by Culture Blood Culture [facility] Start: 05-11-2023 Covid-19 Vaccine ( season) Covid-19 Vaccine ( season) [facility] Start: 05-11-2023 Influenza vaccination [facility] Start: 04-10-2023 Patient discharge [facility] Start: 04-10-2023 Nonstress test [facility] Start: 04-10-2023 Obstetric monitoring [facility] Start: 04-10-2023 Vital signs measurements [facility] Start: 04-10-2023 [facility] Start: 04-10-2023 [facility] Start: 04-05-2023 End: 04-05-2023 Patient encounter procedure 04/05/2023 1:50 PM EDT Office Visit [facility] [address] [place] [phone] Washington Hernández, DO [address] [address] [facility] Start: 03-21-2023 End: 03-21-2023 Patient encounter procedure 03/21/2023 9:30 AM EDT Office Visit [facility] [address] [phone] HarmanmanuelZandra william, DO [address] [address] [facility] Start: 03-11-2023 Troponin I measurement [facility] Start: 03-10-2023 [facility] Start: 03-05-2023 End: 03-05-2023 Patient encounter procedure 03/05/2023 10:10 AM EDT Office Visit [facility] [address] [phone] Danni Torres [address] [place] [address] [facility] Start: 02-27-2023 Adult depression screening assessment DEPRESSION SCREENING [facility] Start: 01-22-2023 End: 01-22-2023 Patient encounter procedure 01/22/2023 Office Visit [facility] [address] [place] [address] [facility] Start: 01-04-2023 Hemoglobin A1c measurement Diabetes: Hemoglobin A1C [facility] Start: 01-02-2023 End: 01-02-2023 Professional / ancillary services management 01/02/2023 8:00 AM EDT Ancillary Procedure [facility] [address], [address] [place] [address] [facility] Start: 12-26-2022 End: 12-26-2022 Professional / ancillary services management 12/26/2022 12:00 PM EDT Telehealth Ancillary [facility] [place] [address] [facility], [address], [address] [place] [address] Sarah Sheehan, PHD [address] [facility] [address] [place] [address] [facility] [place] Start: 12-18-2022 End: 12-18-2022 Patient encounter procedure 12/18/2022 2:30 PM EDT Office Visit [facility] [place] [address] [facility], [address] [place] [address] Bárbara Mason, FORMULA CHECKER-SCHEDULE CHECKER [place] [id number] [facility] Start: 12-04-2022 End: 12-04-2022 Patient encounter procedure 12/04/2022 11:30 AM EDT [facility] [address] [facility], [address] [place] [address] Laura Ludwig PA-C [address] [facility] [address] [place] [address] [facility] Start: 11-29-2022 [facility] Start: 11-21-2022 End: 11-21-2022 Professional / ancillary services management 11/21/2022 9:00 AM EDT Telehealth Ancillary [facility] [address], [address] [place] [address] [address], [address]/[place] [address] [facility] Start: 11-14-2022 End: 11-14-2022 Professional / ancillary services management 11/14/2022 9:30 AM EST Ancillary Procedure Visit [facility] [place] [address] [facility] [place] [address] [facility] Start: 11-08-2022 Adult depression screening assessment DEPRESSION SCREENING [facility] Start: 11-07-2022 End: 11-07-2022 Professional / ancillary services management 11/07/2022 9:00 AM EST Telehealth Ancillary Psych [facility] [place] [address] [facility] Bib[address] Prof[address], [address] [place] [address] Sarah Sheehan, PHD [address] [facility] [address] [place] [address] Psych [facility] [place] Start: 11-06-2022 End: 11-06-2022 Professional / ancillary services management 11/06/2022 3:00 PM EST Ancillary Procedure Visit [facility] [address] [facility], [address] [place] [address] [facility] Start: 11-06-2022 End: 11-06-2022 Patient encounter procedure 11/06/2022 2:30 PM EST Office Visit [facility] [address] [facility], [address] [place] [address] Laura Ludwig PA-C [address] [facility] [address] [place] [address] [facility] Start: 10-06-2022 Hepatitis c antibody HEPATITIS C AB TEST [facility] Start: 10-06-2022 Hepatitis c antibody confirmatory test HEP C AB TEST CONFIRM [facility] Start: 09-10-2022 DEPRESSION ASSESSMENT DEPRESSION ASS ESSMENT [facility] Start: 05-23-2022 Varicella vaccination [facility] Start: 05-11-2022 Influenza vaccination INFLUENZA (#1) [facility] Start: 03-22-2022 [facility] Work Phone: Start: 01-19-2022 End: 01-19-2023 SARS-CoV-2 (COVID-19) RNA [Presence] in Respiratory specimen by JJ with probe detection PRE-PROCEDURE & PRE-OPERATIVE COVID Microbiology Routine Pre-procedure lab exam Expected: 01/19/2022, Expires: 01/19/2023 [facility] Work Phone: Comment on above: Expected: 01/19/2022 , Expires: 01/19/2023 Start: 01-06-2022 Screening for malign ant neoplasm of cervix [facility] Start: 09-10-2021 DEPRESSION ASSESSMENT DEPRESSION ASS ESSMENT [facility] Start: 06-07-2021 SONAL, Provider : Umair Sepulveda, Status: Pen, Time: 12:00 PM SONAL, Provider: Umair Sepulveda, Status: Pen, Time: 12:00 PM [id number] Work Phone: Start: 03-26-2021 COVID-19 VACCINE (3 - Booster) COVID-19 VACCINE (3 - Booster) [facility] Start: 2021 HPV TESTING HPV TESTING [facility] Start: 2021 Screening for malign ant neoplasm of cervix [facility] Start: 12-22-2020 COVID-19 Vaccine (2 - Booster for Moderna series) COVID-19 Vaccine (2 - Booster for Moderna series) [facility] Start: 12-22-2020 COVID-19 VACCINE (3 - Booster for Moderna series) COVID-19 VACCINE (3 - Booster for Moderna series) [facility] Start: 12-22-2020 COVID-19 VACCINE (3 - Booster) COVID-19 VACCINE (3 - Booster) [facility] Start: 12-22-2020 COVID-19 VACCINE (3 - Moderna series) COVID-19 VACCINE (3 - Moderna series) [facility] Start: 11-24-2020 COVID-19 (2 - Modern a series) COVID-19 (2 - Moderna series) [facility] Start: 11-24-2020 COVID-19 Vaccine (2 - Moderna series) COVID-19 Vaccine (2 - Moderna series) [facility] Start: 05-11-2018 Influenza vaccination SEQUENTI AL INFLUENZA VACCINE (#1) [facility] Start: 11-05-2014 Pneumococcal Vaccine : Pediatrics and At-Risk Adult Patients (2 of 2 - PPSV23) Pneumococcal Vaccine: Pediatrics and At-Risk Adult Patients (2 of 2 - PPSV23) [facility] Start: 02-22-2012 Microscopic observat ion [Identifier] in Cervix by Cyto stain Pap Smear [facility] Start: 02-22-2012 PAP TESTING PAP TESTING [facility] Start: 02-22-2012 Screening for malign ant neoplasm of cervix [facility] Start: 2010 Urine screening for protein Diabetes: Urine Protein Screening [facility] Start: 2009 Annual PCP Team Master Dyer angel Disease Visit Annual PCP Team Chronic Disease Visit [facility] Start: 2009 Anxiety Screening Anxiety Screening [facility] Start: 2009 Depression Screening Depression Scre ening [facility] Start: 2009 HEPATITIS [facility] Start: 2009 [facility] Start: 2007 MenB (1 of 2 - MenB 2-Dose Series Bexsero) MenB (1 of 2 - MenB 2-Dose Series Bexsero) [facility] Start: 2003 Depression Screening Depression Scre ening [facility] Start: 2001 Diabetic foot examination Diabetes: Foot Exam [facility] Start: 2001 Glaucoma screening Diabetes: R etinopathy Screening [facility] Start: 2001 Preventive dental service Diabetes: Dental Exam [facility] Start: 1998 Tetanus Diphtheria a nd Pertussis Vaccines (1 - Tdap) Tetanus Diphtheria and Pertussis Vaccines (1 - Tdap) [facility] Start: 09-29-1997 Varicella vaccination Varicell a Vaccines (1 of 2 - 2-dose childhood series) [facility] Start: 02-22-1992 MMR (1 of 1 - Standa rd series) MMR (1 of 1 - Standard series) [facility] Start: 02-22-1992 Varicella (1 of 2 - 2-dose childhood series) Varicella (1 of 2 - 2-dose childhood series) [facility] Start: 1991 Hemoglobin A1c measurement Diabetes: Hemoglobin A1C [facility] Start: 1991 Hepatitis B (1 of 3 - 3-dose series) Hepatitis B (1 of 3 - 3-dose series) [facility] Start: 1991 Lipid panel Lipid Panel [facility] Start: 1991 Screening for malign ant neoplasm of cervix [facility] Start: 1991 Tetanus vaccination TETANUS EVERY 10 YR [facility] Start: 1991 Yearly Adult Physical Yearly Adult P [facility] End: 01-06-2025 Bacteria identified in Urine by Culture [facility] Work Phone: Comment on above: Once (Lab) for 1 Occ urrences starting 01/06/2025 until 01/06/2025 Cardiac event recording [facility] section DELIVE RY Intolerance of Labor [facility] End: 01-06-2025 ECG 12 lead [facility] Service Area Work Phone: Comment on above: Once for 1 Occurrenc es starting 01/06/2025 until 01/06/2025 End: 04-13-2026 ECG COMPLETE ECG COMPLETE ECG Routine Nonsustained ventricular tachycardia (HCC) Status post ablation operation for arrhythmia PVC (premature ventricular contraction) 1 Occurrences starting 04/13/2025 until 04/13/2026 [facility] Work Phone: Comment on above: 1 Occurrences starti ng 04/13/2025 until 04/13/2026 End: 01-06-2025 Extra Urine Britt Tube [facility] Work Phone: Comment on above: Once for 1 Occurrenc es starting 01/06/2025 until 01/06/2025 End: 11-06-2022 Genetic Sendout Genetic Sendout Lab Routine For lab collect this frequency defaults to the next routine lab draw time. Routine times: 0600; 1100; 1400; 1900; 2200 for 1 Occurrences starting 11/06/2022 until 11/06/2022 [facility] Work Phone: Comment on above: For lab collect this frequency defaults to the next routine lab draw time. 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 Test: Chromosomes 13, 18, 21, X&Y, Triploidy, Optional 22Q 11.2 Deletion Lab Timed Supervision of other high risk pregnancies, first trimester History of multiple miscarriages Genetic screening 10/26/2022 10:56 AM [facility] Work Phone: Patient Education [facility] Work Phone: Patient referral [facility] Work Phone: Percutaneous transluminal ablation of atrioventricular node COMPLETE EPS W/SVT ABL W/WO 3D MAP LA PACE REC Paroxysmal supraventricular tachycardia (HCC) Palpitations AK EP LAB Replacement of electronic heart device, pulse generator [facility] Work Phone: Replacement of electronic heart device, pulse generator [facility] End: 01-06-2025 Urinalysis complete W Reflex Culture panel - Urine [facility] Work Phone: Comment on above: Once (Lab) for 1 Occ urrences starting 01/06/2025 until 01/06/2025 [facility] NEGATED: Highlighted row has been ruled out! Planned Goals not documented [facility] Work Phone: Immunizations Immunization Date Immunization Notes Care Provider Dixon coleman 09-15-2023 tuberculin skin test ; purified protein derivative solution, intradermal Nitin Rock MD Work Phone: [facility] 09-06-2023 tuberculin skin test ; purified protein derivative solution, intradermal Ntiin Rock MD Work Phone: [facility] 08-15-2023 influenza, injectabl e, quadrivalent, contains preservative Nitin Rock MD Work Phone: [facility] 08-15-2023 influenza virus vaccine, unspecified formulation [place] Mondragon FORMULA CHECKERTracySCHEDULE CHECKER Work Phone: [facility] 08-02-2022 influenza, injectabl e, quadrivalent, contains preservative Nitin Rock MD Work Phone: [facility] 08-02-2022 influenza virus vaccine, unspecified formulation Zandra Liz DO Work Phone: [facility] 06-15-2022 tuberculin skin test ; purified protein derivative solution, intradermal Nitin Rock MD Work Phone: [facility] 06-06-2022 tuberculin skin test ; purified protein derivative solution, intradermal Nitin Rock MD Work Phone: [facility] 04-25-2022 hepatitis B vaccine, adult dosage Nitin Rock MD Work Phone: [facility] 04-25-2022 measles, mumps and rubella virus vaccine Nitin Rock MD Work Phone: [facility] 09-27-2021 hepatitis B vaccine, adult dosage Nitin Rock MD Work Phone: [facility] Work Phone: 09-27-2021 tetanus toxoid, reduced diphtheria toxoid, and acellular pertussis vaccine, adsorbed Nitin Rock MD Work Phone: [facility] Work Phone: 05-25-2021 Influenza virus vaccine SPECIMEN COLLECTOR-C Marisela Watkins SPECIMEN COLLECTOR Work Phone: [facility] 05-25-2021 influenza, seasonal, injectable Nitin Rock MD Work Phone: [facility] Work Phone: 05-25-2021 influenza, seasonal, injectable, preservative free Nitin Rock MD Work Phone: [facility] Work Phone: 05-25-2021 influenza-efrain H5 virus vaccine, unspecified formulation Nitin Rock MD Work Phone: [facility] 05-25-2021 influenza virus vaccine, unspecified formulation Kin Neves MD Work Phone: [facility] 05-18-2021 hepatitis B vaccine, adult dosage Nitin Rock MD Work Phone: [facility] Work Phone: 05-18-2021 influenza, injectabl e, quadrivalent, contains preservative Nitin Rock MD Work Phone: [facility] Work Phone: 10-27-2020 COVID-19 vaccine, fu ll dose (MODERNA) Nitin Rock MD Work Phone: [facility] Work Phone: 10-22-2020 Covid (Moderna) SPECIMEN COLLECTOR-C Marisela lopez NP Work Phone: [facility] Work Phone: 07-07-2019 influenza, injectabl e, quadrivalent, preservative free; Translations: [Flulaval Quadrivalent 0.5 ML Intramuscular Suspension Prefilled Syringe] Gallito Rosales [facility] Work Phone: Comment on above: Series: 07-09-2017 influenza, injectabl e, quadrivalent, contains preservative Nitin Rock MD Work Phone: [facility] Work Phone: 06-11-2017 influenza, injectabl e, quadrivalent, contains preservative Nitin Rock MD Work Phone: [facility] Work Phone: 07-05-2016 influenza, seasonal, injectable Nitin Rock MD Work Phone: [facility] Work Phone: 11-21-2015 influenza, injectabl e, quadrivalent, preservative free DR JORGE LUIS WATERMAN MD [facility] 09-10-2014 pneumococcal conjuga te vaccine, 13 valent Nitin Rock MD Work Phone: [facility] Work Phone: 07-16-2001 hepatitis B vaccine, pediatric or pediatric/adolescent dosage Nitin Rock MD Work Phone: [facility] Work Phone: 01-18-2001 hepatitis B vaccine, pediatric or pediatric/adolescent dosage Nitin Rock MD Work Phone: [facility] Work Phone: 12-14-2000 hepatitis B vaccine, pediatric or pediatric/adolescent dosage Nitin Rock MD Work Phone: [facility] Work Phone: 09-01-1997 diphtheria, tetanus toxoids and acellular pertussis vaccine, unspecified formulation Nitin Rock MD Work Phone: [facility] Work Phone: 09-01-1997 measles, mumps and rubella virus vaccine Nitin Rock MD Work Phone: [facility] Work Phone: 09-01-1997 trivalent poliovirus vaccine, live, oral Nitin Rock MD Work Phone: [facility] Work Phone: 10-08-1992 diphtheria, tetanus toxoids and pertussis vaccine Nitin Rock MD Work Phone: [facility] Work Phone: 10-08-1992 trivalent poliovirus vaccine, live, oral Nitin Rock MD Work Phone: [facility] Work Phone: 06-04-1992 haemophilus influenz ae type b vaccine, conjugate unspecified formulation Nitin Rock MD Work Phone: [facility] Work Phone: 06-04-1992 measles, mumps and rubella virus vaccine Nitin Rock MD Work Phone: [facility] Work Phone: 02-26-1992 diphtheria, tetanus toxoids and pertussis vaccine Nitin Rock MD Work Phone: [facility] Work Phone: 02-26-1992 haemophilus influenz ae type b vaccine, conjugate unspecified formulation Nitin Rock MD Work Phone: [facility] Work Phone: 01-01-1992 diphtheria, tetanus toxoids and pertussis vaccine Nitin Rock MD Work Phone: [facility] Work Phone: 01-01-1992 haemophilus influenz ae type b vaccine, conjugate unspecified formulation Nitin Rock MD Work Phone: [facility] Work Phone: 01-01-1992 trivalent poliovirus vaccine, live, oral Nitin Rock MD Work Phone: [facility] Work Phone: 1991 diphtheria, tetanus toxoids and pertussis vaccine Nitin Rock MD Work Phone: [facility] Work Phone: 1991 haemophilus influenz ae type b vaccine, conjugate unspecified formulation Nitin Rock MD Work Phone: [facility] Work Phone: 1991 trivalent poliovirus vaccine, live, oral Nitin Rock MD Work Phone: [facility] Work Phone: NEGATED: Highlighted row has not occurred!05-12-2023 measles, mumps and rubella virus vaccine Marychuy Burleson MD Work Phone: [facility] [employer] Comment on above: Deferred: No longer needed - Immune NEGATED: Highlighted row has not occurred!05-12-2023 tetanus toxoid, reduced diphtheria toxoid, and acellular pertussis vaccine, adsorbed Marychuy Burleson MD Work Phone: [facility] Comment on above: Deferred: No longer needed - received this year Payers Date Payer Category Payer Managed Care (Private) MEDICAL M UTUAL SUPER MED [id number] 2024 Private Health Insurance MMO SUP ERMED PPO [id number] 2024 Unknown [id number] 2023 Self-pay [id number] 2022 Unknown [id number] 2020 Unknown 2020 Medicaid [employer] A[employer] MEDICAID [id number] 2020-Present [phone] [address] [place] [address] Medicaid [id number] 2020 Medicaid [id number] 2017 Medicaid [id number] 1991 Unknown [id number] 2.16.840.1.698139.3.579.2 1991 Unknown [id number] 2.16.840.1.174054.3.579.2 1991 Unknown [id number] 2.16.840.1.379264.3.579.2 1991 Unknown [id number] 2.16.840.1.940434.3.579. 1991 Unknown [id number] 2.16.840.1.284144.3.579. 1991 Unknown [id number] 2.16.840.1.805283.3.579. 1991 Unknown [id number] 2.16.840.1.839691.3.579. 1991 Unknown [id number] 2.16.840.1.992516.3.579. 1991 Unknown [id number] 2.16.840.1.570278.3.579.2 1991 Unknown [id number] 2.16.840.1.732807.3.579.2 1991 Unknown [id number] 2.16.840.1.039801.3.579.2 1991 Unknown [id number] 2.16.840.1.940299.3.579.2 1991 Unknown [id number] 2.16.840.1.350796.3.579.2 1991 Unknown [id number] 2.16.840.1.586968.3.579. 1991 Unknown [id number] 2.16.840.1.295925.3.579.2 1991 Unknown [id number] 2.16.840.1.873780.3.579.2 1991 Unknown [id number] 2.16.840.1.922350.3.579.2 1991 Unknown [id number] 2.16.840.1.315797.3.579.2 1991 Unknown [id number] 2.16.840.1.285330.3.579.2 1991 Unknown [id number] 2.16.840.1.857732.3.579.2 1991 Unknown [id number] 2.16.840.1.742612.3.579.2 1991 Unknown [id number] 2.16.840.1.441172.3.579.2 1991 Unknown [id number] 2.16.840.1.568109.3.579.2 1991 Unknown [id number] 2.16.840.1.397752.3.579.2 1991 Unknown [id number] 2.16.840.1.406972.3.579.2 1991 Unknown [id number] 2.16.840.1.411330.3.579.2 1991 Unknown [id number] 2.16.840.1.374396.3.579.2 1991 Unknown [id number] 2.16.840.1.972608.3.579.2 1991 Unknown [id number] 2.16.840.1.566161.3.579.2 1991 Unknown [id number] 2.16.840.1.775085.3.579.2 1991 Unknown [id number] 2.16.840.1.948743.3.579.2 1991 Unknown [id number] 2.16.840.1.004146.3.579.2 1991 Unknown [id number] 2.16.840.1.790066.3.579.2 1991 Unknown [id number] 2.16.840.1.963873.3.579. 1991 Unknown [id number] 2.16.840.1.520465.3.579. 1991 Unknown [id number] 2.16.840.1.302043.3.579. 1991 Unknown [id number] 2.840.1.823164.3.579. 1991 Unknown [id number] 2.16.840.1.004820.3.579. 1991 Unknown [id number] 2.16.840.1.534797.3.579. 1991 Unknown [id number] 2.16.840.1.358368.3.579.2 1991 Unknown [id number] 2.16840.1.790581.3.579. 1991 Unknown [id number] 2.16.840.1.275620.3.579.2 1991 Unknown [id number] 2.16.840.1.489106.3.579. 1991 Unknown [id number] 2.16.840.1.222765.3.579.2 1991 Unknown [id number] 2.16.840.1.629470.3.579. 1991 Unknown [id number] 2.16.840.1.785734.3.579.2. 479 1991 Unknown [id number] 2.16.840.1.141898.3.579.2. 479 1991 Unknown [id number] 2.16.840.1.694645.3.579.2. 479 1991 Unknown [id number] 2.16.840.1.747744.3.579.2. 479 1991 Unknown [id number] 2.16.840.1.574047.3.579.2. 479 1991 Unknown [id number] 2.16.840.1.327837.3.579.2. 479 1991 Unknown [id number] 2.16.840.1.511502.3.579.2 479 1991 Unknown [id number] 2.16.840.1.089881.3.579.2 479 1991 Unknown [id number] 2.16.840.1.213334.3.579.2. 479 1991 Unknown [id number] 2.16.840.1.827595.3.579.2. 1243 1991 Unknown [id number] 2.16.840.1.710059.3.579.2. 1243 1991 Unknown [id number] 2.16.840.1.565571.3.579.2. 627 1991 Unknown [id number] 2.16.840.1.028323.3.579.2. 627 Unknown [id number] 2.16.840.1.790919.3.579.2. 630 Unknown [id number] 2.16.840.1.292075.3.579.2. 630 Unknown [id number] 2.16.840.1.604911.3.579.2. 630 Unknown [id number] 2.16.840.1.824032.3.579.2. 630 Unknown [id number] 2.840.1.088490.3.579.2. 462 Unknown [id number] 2.840.1.936879.3.579.2. 462 Unknown [id number] 2.16840.1.431658.3.579.2. 462 Unknown [id number] 2.840.1.860176.3.579.2. 462 Unknown [id number] 2.840.1.137423.3.579.2. 462 Unknown [id number] 2.840.1.361561.3.579.2. 462 Unknown [id number] 2.840.1.829547.3.579.2. 462 Unknown [id number] 2.840.1.504772.3.579.2. 462 Unknown [id number] 2.840.1.875815.3.579.2. 462 Unknown [id number] 2.840.1.525570.3.579.2. 462 Unknown [id number] 2.840.1.570461.3.579.2. 462 Unknown [id number] 2.840.1.461324.3.579.2. 462 Unknown [id number] 2.840.1.616303.3.579.2. 462 Unknown [id number] .840.1.012204.3.579.2. 462 Unknown [id number] .840.1.825665.3.579.2. 462 Unknown [id number] 2.840.1.788611.3.579.2. 462 Unknown [id number] 2.840.1.178219.3.579.2. 462 Unknown [id number] 2.840.1.762613.3.579.2. 462 Unknown [id number] 2.840.1.243518.3.579.2. 462 Unknown [id number] 2.16.840.1.971498.3.579.2. 462 Unknown [id number] 2.16.840.1.832536.3.579.2. 462 Social History Date Type Detail Facility Start: 06-07-2018 End: 01-11-2025 Tobacco smoking status NHIS Never smoker [facility] Start: 1990 Sex Assigned At Not on file [facility] Start: 10-12-2022 End: 10-01-2023 Never smoker Never smoker [facility] Comment on above: Student; Start: 01-04-2022 End: 11-20-2023 Tobacco smoking consumption unknown [facility] Start: 1990 Sex Assigned At Female [facility] Start: 07-31-2017 End: 05-04-2022 Tobacco use and exposure Smokeless tobacco non-user [facility] Start: 12-06-2021 End: 03-10-2025 Alcohol intake Lifetime non-drinker (finding) [facility] Start: 07-07-2021 End: 12-26-2022 History SDOH Alcohol Frequency 1 [facility] Start: 01-31-2022 End: 01-06-2025 Exposure to SARS-CoV-2 (event) Not sure [facility] Tobacco smoking status No Smokin g Status Entered [facility] Start: 08-31-2022 [facility] Start: 10-12-2022 End: 12-05-2022 Alcohol intake Ex-drinker (finding) [facility] Start: 10-12-2022 End: 10-01-2023 Tobacco use panel [facility] Start: 12-24-2022 End: 05-09-2023 Alcohol intake Current non-drinker of alcohol (finding) [facility] Start: 12-26-2022 History SDOH [facility] In the past 12 month s, has lack of transportation kept you from medical appointments or from getting medications? No [facility] In the past 12 month s, was there a time when you were not able to pay the mortgage or rent on time? No [facility] (I/We) worried adore er (my/our) food would run out before (I/we) got money to buy more. Never true [email or web address] Start: 11-28-2024 End: 12-03-2024 Sex Female (finding) [facility] NEGATED: Highlighted row - - Jam[facility] Work Phone: NEGATED: Highlighted rowStart: NINF History of tobacco use Passive smoker [facility] NEGATED: Highlighted row Not [facility] Medical Equipment Procedure Code Equipment Code Equipment Origin al Text Equipment Identifier Dates ([id number]) Implantable card iac monitor [id number] Start: 08-28-2022 Implantable Loop Recorder-08/28/2022 [id number] Start: 08-28-2022 Goals Date Patient Goal Desired Activity /State Personal health goal Functional Status Date Assessment Result Facility 02-26-2025 Are you deaf, or do you have serious difficulty hearing No 02/26/2025 11:33 AM Pura Barahona RN [facility] 02-26-2025 Are you blind, or do you have serious difficulty seeing, even when wearing glasses No 02/26/2025 11:33 AM Pura Barahona RN [facility] 02-26-2025 Do you have serious difficulty walking or climbing stairs No 02/26/2025 11:33 AM Pura Barahona RN No [facility] 02-26-2025 Do you have difficul ty dressing or bathing No 02/26/2025 11:33 AM Pura Barahona RN [facility] 02-26-2025 Because of a physica l, mental, or emotional condition, do you have difficulty doing errands alone such as visiting a physician's office or shopping No 02/26/2025 11:33 AM Pura Barahona RN [facility] 02-25-2025 Are you deaf, or do you have serious difficulty hearing No 02/25/2025 11:32 AM Tenzin Elliott RN [facility] 02-25-2025 Are you blind, or do you have serious difficulty seeing, even when wearing glasses No 02/25/2025 11:32 AM Tenzin Elliott RN No [facility] 02-25-2025 Do you have serious difficulty walking or climbing stairs No 02/25/2025 11:32 AM Tenzin Elliott RN No [facility] 02-25-2025 Do you have difficul ty dressing or bathing No 02/25/2025 11:32 AM Tenzin Elliott RN No [facility] 02-25-2025 Because of a physica l, mental, or emotional condition, do you have difficulty doing errands alone such as visiting a physician's office or shopping No 02/25/2025 11:32 AM EDTenzin Bruce RN No [facility] 01-16-2025 Are you deaf, or do you have serious difficulty hearing No 01/16/2025 5:47 PM EDT Raúl Bautista RN No [facility] 01-16-2025 Are you blind, or do you have serious difficulty seeing, even when wearing glasses No 01/16/2025 5:47 PM EDT Raúl Bautista RN No [facility] 01-16-2025 Do you have serious difficulty walking or climbing stairs No 01/16/2025 5:47 PM EDT Raúl Bautista, MARGARITA No [facility] 01-16-2025 Do you have difficul ty dressing or bathing No 01/16/2025 5:47 PM EDT Raúl Bautista, MARGARITA No [facility] 01-16-2025 Because of a physica l, mental, or emotional condition, do you have difficulty doing errands alone such as visiting a physician's office or shopping No 01/16/2025 5:47 PM EDT Raúl Bautista RN No [facility] 01-12-2025 Functional status Ambulates [facility] Work Phone: 01-06-2025 [place] - suicide severity rating scale screener - recent [C-SSRS] [facility] Work Phone: 05-08-2022 Functional Status Independent [facility] [place] 05-08-2022 Functional Status Resting [facility] [place] 03-21-2016 Are you deaf, or do you have serious difficulty hearing No 03/21/2016 6:40 PM EDT Elyssa Sylvester (Rn)(Hist), RN No [facility] 03-21-2016 Are you blind, or do you have serious difficulty seeing, even when wearing glasses No 03/21/2016 6:40 PM EDT Elyssa Sylvester (Rn)(Hist), RN No [facility] 03-21-2016 Do you have serious difficulty walking or climbing stairs No 03/21/2016 6:40 PM EDT Elyssa Sylvester (Rn)(Hist), RN No [facility] 03-21-2016 Do you have difficul ty dressing or bathing No 03/21/2016 6:40 PM EDT Elyssa Sylvester (Rn)(Hist), RN No [facility] 03-21-2016 Because of a physica l, mental, or emotional condition, do you have difficulty doing errands alone such as visiting a physician's office or shopping No 03/21/2016 6:40 PM EDT Elyssa Sylvester (Rn)(Hist), RN No [facility] NEGATED: Highlighted row Functional performance Functional status health issues are not documented Disease [id number] Work Phone: Mental Status Date Assessment Result Facility 02-26-2025 Because of a physical, mental, or emotional condition, do you have serious difficulty concentrating, remembering, or making decisions No 02/26/2025 11:33 AM EDT Pura Damico, MARGARITA [facility] 02-25-2025 Because of a physical, mental, or emotional condition, do you have serious difficulty concentrating, remembering, or making decisions No 02/25/2025 11:32 AM EDT Tenzin Chan, MARGARITA [facility] 01-16-2025 Because of a physical, mental, or emotional condition, do you have serious difficulty concentrating, remembering, or making decisions No 01/16/2025 5:47 PM EDT Raúl Bautista RN No [facility] 01-12-2025 Cognitive function Voice/Name [facility] Work Phone: 12-03-2024 Cognitive function Level Of Cons ciousness Awake;Alert;Appropriate ;Follows Commands [facility] Work Phone: 09-17-2024 Cognitive function Voice/Name [facility] Work Phone: 08-18-2024 Cognitive function Level Of Cons ciousness Awake;Alert;Appropriate ;Follows Commands [facility] Work Phone: 06-10-2023 Cognitive function Level Of Cons ciousness Awake;Alert;Appropriate ;Follows Commands [facility] Work Phone: 03-10-2023 Cognitive function Voice/Name [facility] Work Phone: 11-29-2022 Cognitive function Level Of Cons ciousness Awake;Alert;Appropriate [facility] Work Phone: 09-23-2022 Cognitive function Level Of Cons ciousness Awake;Alert;Appropriate [facility] Work Phone: 05-08-2022 Mental Status Orientation Orie nted x 4 [facility] 05-08-2022 Mental Status [facility] 03-22-2022 Cognitive function Level Of Cons ciousness Awake;Alert;Appropriate ;Follows Commands [facility] Work Phone: 01-04-2022 Cognitive function Voice/Name [facility] Work Phone: 11-19-2021 Cognitive function Level Of Cons ciousness Awake;Alert;Appropriate ;Follows Commands [facility] Work Phone: 09-10-2021 Cognitive function Level Of Cons ciousness Awake;Alert;Appropriate ;Follows Commands [facility] Work Phone: 03-21-2016 Because of a physical, mental, or emotional condition, do you have serious difficulty concentrating, remembering, or making decisions No 03/21/2016 6:40 PM EDT Elyssa Sylvester (Rn)(Hist), RN No [facility] NEGATED: Highlighted row Cognitive function [Interpretation] Cognitive status health issues are not documented Disease [id number] Work Phone: Clinical Notes 07-20-2020 to 04-06-2025 Telephone Encounter - Nitin Rock MD - 04/06/2025 5:12 PM EDTTelephone Encounter - Nitin Rock MD - 04/06/2025 5:12 PM EDTZKristine torres RN - 03/12/2025 10:18 AM EDT Note Date & Type Note Facility 04-06-2025 Telephone encounter Note [facility] [place] General Electrophysiology (EP) We need to see the results of the cardiac monitoring, but otherwise we do not have a lot to offer her. I think she should see Dr. Kaye at [facility] EP. Referral to Dr. Kaye placed. Nitin Rock MD April 06, 2025 5:12 PM [facility] 04-06-2025 Miscellaneous Notes [facility] General Electrophysiology (EP) We need to see the results of the cardiac monitoring, but otherwise we do not have a lot to offer her. I think she should see Dr. Kaye at [facility] EP. Referral to Dr. Kaye placed. Nitin Rock MD April 06, 2025 5:12 PM Amibka Brown called in to request to be seen sooner. Her appt was rescheduled further out. She hasn't been very active and has been off work. She has cut out caffeine completely. She reports med compliance. She complains of increased intensity in symptoms. When her heart goes in and out of SVT/Vtach(?), she has CP that radiates up to left side of her neck. Messaging the area helps a little, and when her heart clams down, the pain goes away. Note: she reports 2 week monitor ends tomorrow and she will mail back then. Vilma Lakhani RN documented in this encounter [facility] 04-06-2025 Telephone encounter Note Ambika Brown called in to request to be seen sooner. Her appt was rescheduled further out. She hasn't been very active and has been off work. She has cut out caffeine completely. She reports med compliance. She complains of increased intensity in symptoms. When her heart goes in and out of SVT/Vtach(?), she has CP that radiates up to left side of her neck. Messaging the area helps a little, and when her heart clams down, the pain goes away. Note: she reports 2 week monitor ends tomorrow and she will mail back then. Vilma Lakhani RN [facility] 03-12-2025 Note HNO ID: [id number] Author: KRISTINE OLIVA RN Service: ? Author Type: Registered Nurse Type: Progress Notes Filed: 03/12/2025 12:25 Note Text: 1013: Patient in for third day of IV infusions. Patient rated headache 3/10. Patient denied nausea and dizziness. Patient educated on medications to be administered. Patient verbalized understanding and agreed to proceed with infusions. 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 1224: Pts infusions complete. Pt tolerated infusion well. Pt rated headache 1/10. Pt denied nausea and dizziness. Pt stated she did get very nauseated yesterday after infusion. She would like dose of PRN zofran prior to leaving txt room. PRN Zofran administered. Pt discharged from treatment room. [facility] 03-12-2025 History of Presen t illness Narrative 1013: Patient in for third day of IV infusions. Patient rated headache 3/10. Patient denied nausea and dizziness. Patient educated on medications to be administered. Patient verbalized understanding and agreed to proceed with infusions. 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 1224: Pts infusions complete. Pt tolerated infusion well. Pt rated headache 1/10. Pt denied nausea and dizziness. Pt stated she did get very nauseated yesterday after infusion. She would like dose of PRN zofran prior to leaving txt room. PRN Zofran administered. Pt discharged from treatment room. documented in this encounter [facility] 03-12-2025 History of Presen t illness Narrative Images from the original note were not included. [facility] Note Subjective: Ambika Brown is a 35 year old year old female presenting for day 3 of infusions. Left yesterday with mild nausea, Increased in severity last evening Therapy Plan: zofran reglan magnesium robaxin valproate New health conditions since orders were placed: No Cardiovascular risk factors: SVT, POTS Triptan dose in the last 24 hours: no Last muscle relaxer dose: No Last NSAID dose: last week Response to infusions: Patient tolerating infusion without side effects. D1: 04/19-01/17;D2: 02/17-12/18;D3:11/17 Current Preventative: gabapentin, Metoprolol Current Abortive: Naproxen Labs: Latest Ref Rng & Units 02/25/2025 CBC WBC 3.70 - 11.00 k/uL 13.51 RBC 3.90 - 5.20 m/uL 4.72 Hemoglobin 11.5 - 15.5 g/dL 11.9 Hematocrit 36.0 - 46.0 % 38.4 MCV 80.0 - 100.0 fL 81.4 MCH 26.0 - 34.0 pg 25.2 MCHC 30.5 - 36.0 g/dL 31.0 RDW-CV 11.5 - 15.0 % 15.9 Platelet Count 150 - 400 k/uL 208 MPV 9.0 - 12.7 fL 12.1 Latest Ref Rng & Units 02/26/2025 CMP Sodium 136 - 144 mmol/L 137 Potassium 3.7 - 5.1 mmol/L 3.8 Chloride 98 - 107 mmol/L 105 CO2 22 - 30 mmol/L 22 Glucose 74 - 99 mg/dL 106 BUN 7 - 21 mg/dL 8 Creatinine 0.58 - 0.96 mg/dL 0.54 EGFR >=60 mL/min/1.73m 124 Albumin 3.9 - 4.9 g/dL 3.5 Calcium 8.5 - 10.2 mg/dL 8.3 ALLERGIES Allergen Reactions Prochlorperazine Mental Status Change Compazine akathesia Diphenhydramine Intolerance Heart palpitations, anxiety Current Medications: flecainide (TAMBOCOR) 100 mg tablet^Take 1 tablet by mouth every 12 hours.^Disp: 180 tablet^Rfl: 1 promethazine (PHENERGAN) 25 mg tablet^1/2 to 1 po q8h prn headache or nausea^Disp: 45 tablet^Rfl: 11 gabapentin (NEURONTIN) 100 mg capsule^Take 1 po at onset of migraine if needed repeat in 8 hours^Disp: 30 capsule^Rfl: 5 metoprolol tartrate, short acting, (LOPRESSOR) 25 mg tablet^Take 1 tablet by mouth two times a day.^Disp: ^Rfl: lisinopril (ZESTRIL) 20 mg tablet^Take 20 mg by mouth two times a day.^Disp: ^Rfl: ascorbic acid, vitamin C, (VITAMIN C) 500 mg tablet^Take 500 mg by mouth once daily.^Disp: ^Rfl: ondansetron (ZOFRAN) 8 mg tablet^FOR NAUSEA. Take on at onset of nausea or migraine,may repeat dose in 8 hours if needed.^Disp: 20 tablet^Rfl: 4 naproxen (NAPROSYN) 500 mg tablet^Take 1 tablet by mouth two times a day as needed for pain.^Disp: 60 tablet^Rfl: 3 levothyroxine (SYNTHROID) 50 mcg tablet^Take 50 mcg by mouth every morning. Take On an Empty Stomach^Disp: ^Rfl: aspirin, enteric coated (ASPIRIN, ENTERIC COATED) 81 mg EC tablet^Take 81 mg by mouth daily at bedtime. ^Disp: ^Rfl: cholecalciferol, vitamin D3, (VITAMIN D3 ORAL)^Take by mouth once daily.^Disp: ^Rfl: PNV/FERROUS SULFATE/FOLIC ACID ( MULTIVIT WITH IRON ORAL)^Take by mouth daily at bedtime. ^Disp: ^Rfl: albuterol HFA (PROVENTIL HFA, VENTOLIN HFA) 90 mcg/actuation inhaler^Inhale 2 Puffs as instructed every 4 hours as needed for Wheezing/Shortness of Breath.^Disp: ^Rfl: Review of Systems: Review of system: Patient reports no change from the prior visit. Objective: VS: see infusion note for vital signs General: well appearing, in no acute distress, alert, obese Lungs: normal breath sounds bilaterally CV: RRR, normal S1, S2 auscultated, no murmurs, and no JVD GI: Bowel sounds present in all four quadrants - Yes Neurological: Pain Behaviors: no pain behaviors observed Mental Status: Alert and oriented to person, place and time. Affect is normal and appropriate. Speech is spontaneous and fluent without dysarthria, normal in rate, volume and articulation, and clear, coherent, and relevant. Short and long-term memory, cognition and general fund of knowledge are good. Attention span and concentration are good. Cranial Nerves: VII-face is symmetric without evidence of weakness. VIII-hearing intact. Assessment: Chronic migraine without aura, with intractable migraine, so stated, with status migrainosus (primary encounter diagnosis) Plan: Ambika Brown is a 35 year old year old female, with a history of SVT,POTS, HOSEA, RLS, hemiplegic migraines, left sided weakness, obesity and chronic migraines following up today for day 3 of infusions. Follow up plan: Resume previous at home medications. The following approved medication requests have been transmitted electronically. Requested Prescriptions Signed Prescriptions Disp Refills divalproex ER (DEPAKOTE ER) 500 mg 24 hr tablet 15 tablet 0 Sig: Take 2 tablets by mouth once daily for 5 days, THEN 1 tablet once daily for 5 days. 05/19/25 Julia Huertas PA-C Botox Level of service: Est level 2 (10-19 min). Time spent 15 min on the day of service, which included preparing to see the patient, [id number] patient care, completing clinical documentation, performing a medically appropriate examination, counseling and educating the patient/family/caregiver, and ordering medications, tests, or procedures. Dalila Fernandez APRN.CNP Headache Section [facility] March 10, 2025 documented in this encounter [facility] 03-12-2025 Note HNO ID: [id number] Author: DALILA FERNANDEZ APRN.CNP Service: ? Author Type: Nurse Practitioner Type: Progress Notes Filed: 03/12/2025 11:15 Note Text: [facility]fusion GENE Note Subjective: Ambika Brown is a 35 year old year old female presenting for day 3 of infusions. Left yesterday with mild nausea, Increased in severity last evening Therapy Plan: zofran reglan magnesium robaxin valproate New health conditions since orders were placed: No Cardiovascular risk factors: SVT, POTS Triptan dose in the last 24 hours: no Last muscle relaxer dose: No Last NSAID dose: last week Response to infusions: Patient tolerating infusion without side effects. D1: 04/19-01/17;D2: 02/17-12/18;D3:11/17 Current Preventative: gabapentin, Metoprolol Current Abortive: Naproxen Labs: Latest Ref Rng AND Units 02/25/2025 CBC WBC 3.70 - 11.00 k/uL 13.51 RBC 3.90 - 5.20 m/uL 4.72 Hemoglobin 11.5 - 15.5 g/dL 11.9 Hematocrit 36.0 - 46.0 % 38.4 MCV 80.0 - 100.0 fL 81.4 MCH 26.0 - 34.0 pg 25.2 MCHC 30.5 - 36.0 g/dL 31.0 RDW-CV 11.5 - 15.0 % 15.9 Platelet Count 150 - 400 k/uL 208 MPV 9.0 - 12.7 fL 12.1 Latest Ref Rng AND Units 02/26/2025 CMP Sodium 136 - 144 mmol/L 137 Potassium 3.7 - 5.1 mmol/L 3.8 Chloride 98 - 107 mmol/L 105 CO2 22 - 30 mmol/L 22 Glucose 74 - 99 mg/dL 106 BUN 7 - 21 mg/dL 8 Creatinine 0.58 - 0.96 mg/dL 0.54 EGFR >=60 mL/min/1.73m? 124 Albumin 3.9 - 4.9 g/dL 3.5 Calcium 8.5 - 10.2 mg/dL 8.3 ALLERGIES Allergen Reactions Prochlorperazine Mental Status Change Compazine akathesia Diphenhydramine Intolerance Heart palpitations, anxiety Current Medications: flecainide (TAMBOCOR) 100 mg tabletTake 1 tablet by mouth every 12 hours.Disp: 180 tabletRfl: 1 promethazine (PHENERGAN) 25 mg tablet1/2 to 1 po q8h prn headache or nauseaDisp: 45 tabletRfl: 11 gabapentin (NEURONTIN) 100 mg capsuleTake 1 po at onset of migraine if needed repeat in 8 hoursDisp: 30 capsuleRfl: 5 metoprolol tartrate, short acting, (LOPRESSOR) 25 mg tabletTake 1 tablet by mouth two times a day.Disp: Rfl: lisinopril (ZESTRIL) 20 mg tabletTake 20 mg by mouth two times a day.Disp: Rfl: ascorbic acid, vitamin C, (VITAMIN C) 500 mg tabletTake 500 mg by mouth once daily.Disp: Rfl: ondansetron (ZOFRAN) 8 mg tabletFOR NAUSEA. Take on at onset of nausea or migraine,may repeat dose in 8 hours if needed.Disp: 20 tabletRfl: 4 naproxen (NAPROSYN) 500 mg tabletTake 1 tablet by mouth two times a day as needed for pain.Disp: 60 tabletRfl: 3 levothyroxine (SYNTHROID) 50 mcg tabletTake 50 mcg by mouth every morning. Take On an Empty StomachDisp: Rfl: aspirin, enteric coated (ASPIRIN, ENTERIC COATED) 81 mg EC tabletTake 81 mg by mouth daily at bedtime. Disp: Rfl: cholecalciferol, vitamin D3, (VITAMIN D3 ORAL)Take by mouth once daily.Disp: Rfl: PNV/FERROUS SULFATE/FOLIC ACID ( MULTIVIT WITH IRON ORAL)Take by mouth daily at bedtime. Disp: Rfl: albuterol HFA (PROVENTIL HFA, VENTOLIN HFA) 90 mcg/actuation inhalerInhale 2 Puffs as instructed every 4 hours as needed for Wheezing/Shortness of Breath.Disp: Rfl: Review of Systems: Review of system: Patient reports no change from the prior visit. Objective: VS: see infusion note for vital signs General: well appearing, in no acute distress, alert, obese Lungs: normal breath sounds bilaterally CV: RRR, normal S1, S2 auscultated, no murmurs, and no JVD GI: Bowel sounds present in all four quadrants - Yes Neurological: Pain Behaviors: no pain behaviors observed Mental Status: Alert and oriented to person, place and time. Affect is normal and appropriate. Speech is spontaneous and fluent without dysarthria, normal in rate, volume and articulation, and clear, coherent, and relevant. 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 Attention span and concentration are good. Cranial Nerves: VII-face is symmetric without evidence of weakness. VIII-hearing intact. Assessment: Chronic migraine without aura, with intractable migraine, so stated, with status migrainosus (primary encounter diagnosis) Plan: Ambika Brown is a 35 year old year old female, with a history of SVT,POTS, HOSEA, RLS, hemiplegic migraines, left sided weakness, obesity and chronic migraines following up today for day 3 of infusions. Follow up plan: Resume previous at home medications. The following approved medication requests have been transmitted electronically. Requested Prescriptions Signed Prescriptions Disp Refills divalproex ER (DEPAKOTE ER) 500 mg 24 hr tablet 15 tablet 0 Sig: Take 2 tablets by mouth once daily for 5 days, THEN 1 tablet once daily for 5 days. 05/19/25 Julia Huertas PA-C Botox Level of service: Est level 2 (10-19 min). Time spent 15 min on the day of service, which included preparing to see the patient, [id number] patient care, completing clinical documentation, performing a medically a (more content not included)... [facility] 03-11-2025 Note HNO ID: [id number] Author: GISELLE CALVO RN Service: ? Author Type: Registered Nurse Type: Progress Notes Filed: 03/11/2025 15:51 Note Text: 1018 Patient in for 2nd day of IV infusions. Patient rated headache 6/10. Patient stated no nausea and no dizziness. Patient educated on medications to be administered. Patient verbalized understanding and agreed to proceed with infusions. Certified Veterinary Technician: yes 1355 Pts infusions complete. Pt tolerated infusion well. Pt rated headache 4/10. Pt stated mild nausea pt declined anti emetic and no dizziness. Pt discharged from treatment room. [facility] 03-11-2025 History of Presen t illness Narrative 1018 Patient in for 2nd day of IV infusions. Patient rated headache 6/10. Patient stated no nausea and no dizziness. Patient educated on medications to be administered. Patient verbalized understanding and agreed to proceed with infusions. Certified Veterinary Technician: yes 1355 Pts infusions complete. Pt tolerated infusion well. Pt rated headache 4/10. Pt stated mild nausea pt declined anti emetic and no dizziness. Pt discharged from treatment room. documented in this encounter [facility] 03-10-2025 Telephone encounter Note FMLA Paper work was done and the patient was called and the forms were faxed to Terence Cameron from [facility] @ [phone], and scanned into the chart. Sayra Adames MA [facility] 03-10-2025 Miscellaneous Notes FMLA Paper work was done and the patient was called and the forms were faxed to Terence Cameron from [facility] @ [phone], and scanned into the chart. Sayra Adames MA We received FMLA Forms and were placed on 's dest.Sayra Adames MA documented in this encounter [facility] 03-10-2025 Instructions Aarti Huertas PA-C - 03/10/2025 11:18 AM EDT Return for Day 2 of IV infusions documented in this encounter [facility] 03-10-2025 Note HNO ID: [id number] Author: AARTI HUERTAS PA-C Service: ? Author Type: Physician Oil Spraying Machine Operator Type: Progress Notes Filed: 03/10/2025 11:18 Note Text: [facility] Infusion GENE Note Subjective: Ambika Brown is a 35 year old year old female presenting for day 1 of infusions. Therapy Plan: zofran reglan magnesium robaxin valproate New health conditions since orders were placed: No Cardiovascular risk factors: has palpitations and SVT Triptan dose in the last 24 hours: No Last muscle relaxer dose: No Last NSAID dose: Yes, naproxen yesterday Response to infusions: Patient tolerating infusion without side effects. Current Preventative: gabapentin, metoprolol Current Abortive: naproxen Labs: Latest Ref Rng AND Units 02/25/2025 CBC WBC 3.70 - 11.00 k/uL 13.51 RBC 3.90 - 5.20 m/uL 4.72 Hemoglobin 11.5 - 15.5 g/dL 11.9 Hematocrit 36.0 - 46.0 % 38.4 MCV 80.0 - 100.0 fL 81.4 MCH 26.0 - 34.0 pg 25.2 MCHC 30.5 - 36.0 g/dL 31.0 RDW-CV 11.5 - 15.0 % 15.9 Platelet Count 150 - 400 k/uL 208 MPV 9.0 - 12.7 fL 12.1 Latest Ref Rng AND Units 02/26/2025 CMP Sodium 136 - 144 mmol/L 137 Potassium 3.7 - 5.1 mmol/L 3.8 Chloride 98 - 107 mmol/L 105 CO2 22 - 30 mmol/L 22 Glucose 74 - 99 mg/dL 106 BUN 7 - 21 mg/dL 8 Creatinine 0.58 - 0.96 mg/dL 0.54 EGFR >=60 mL/min/1.73m? 124 Albumin 3.9 - 4.9 g/dL 3.5 Calcium 8.5 - 10.2 mg/dL 8.3 ALLERGIES Allergen Reactions Prochlorperazine Mental Status Change Compazine akathesia Diphenhydramine Intolerance Heart palpitations, anxiety Current Medications: flecainide (TAMBOCOR) 100 mg tabletTake 1 tablet by mouth every 12 hours.Disp: 180 tabletRfl: 1 promethazine (PHENERGAN) 25 mg tablet1/2 to 1 po q8h prn headache or nauseaDisp: 45 tabletRfl: 11 gabapentin (NEURONTIN) 100 mg capsuleTake 1 po at onset of migraine if needed repeat in 8 hoursDisp: 30 capsuleRfl: 5 metoprolol tartrate, short acting, (LOPRESSOR) 25 mg tabletTake 1 tablet by mouth two times a day.Disp: Rfl: lisinopril (ZESTRIL) 20 mg tabletTake 20 mg by mouth two times a day.Disp: Rfl: ascorbic acid, vitamin C, (VITAMIN C) 500 mg tabletTake 500 mg by mouth once daily.Disp: Rfl: ondansetron (ZOFRAN) 8 mg tabletFOR NAUSEA. Take on at onset of nausea or migraine,may repeat dose in 8 hours if needed.Disp: 20 tabletRfl: 4 naproxen (NAPROSYN) 500 mg tabletTake 1 tablet by mouth two times a day as needed for pain.Disp: 60 tabletRfl: 3 levothyroxine (SYNTHROID) 50 mcg tabletTake 50 mcg by mouth every morning. Take On an Empty StomachDisp: Rfl: aspirin, enteric coated (ASPIRIN, ENTERIC COATED) 81 mg EC tabletTake 81 mg by mouth daily at bedtime. Disp: Rfl: cholecalciferol, vitamin D3, (VITAMIN D3 ORAL)Take by mouth once daily.Disp: Rfl: PNV/FERROUS SULFATE/FOLIC ACID ( MULTIVIT WITH IRON ORAL)Take by mouth daily at bedtime. Disp: Rfl: albuterol HFA (PROVENTIL HFA, VENTOLIN HFA) 90 mcg/actuation inhalerInhale 2 Puffs as instructed every 4 hours as needed for Wheezing/Shortness of Breath.Disp: Rfl: Review of Systems: Review of system: Patient reports no change from the prior visit. Objective: VS: see infusion note for vital signs General: well appearing, in no acute distress, well-hydrated, well nourished, alert, obese, solicited verbal complaints Lungs: normal breath sounds bilaterally CV: RRR, normal S1, S2 auscultated, no murmurs, and no JVD GI: Bowel sounds present in all four quadrants - Yes Neurological: Pain Behaviors: solicited verbal complaints Mental Status: Alert and oriented to person, place and time. Affect is normal. Speech is spontaneous and fluent without dysarthria. Short and long-term memory, cognition and general fund of knowledge are good. Attention span and concentration are excellent. Cranial Nerves: VII-face is symmetric without evidence of weakness. VIII-hearing intact. Assessment: Chronic migraine without aura, with intractable migraine, so stated, with status migrainosus (primary encounter diagnosis) Plan: Ambika Brown is a 35 year old year old female, with a history of chronic migraines with status migrainosus following up today for day 1 of infusions. Follow up plan: Return for Day 2 of infusions tomorrow. Level of service: Est level 2 (10-19 min). Time spent 11 min on the day of service, which included preparing to see the patient, [id number] patient care, completing clinical documentation, obtaining and/or reviewing separately obtained history, and performing a medically appropriate examination. Aarti Huertas PA-C Headache Section [facility] March 10, 2025 [facility] 03-10-2025 History of Presen t illness Narrative Images from the original note were not included. [facility] Infusion GENE Note Subjective: Ambika Brown is a 35 year old year old female presenting for day 1 of infusions. Therapy Plan: zofran reglan magnesium robaxin valproate New health conditions since orders were placed: No Cardiovascular risk factors: has palpitations and SVT Triptan dose in the last 24 hours: No Last muscle relaxer dose: No Last NSAID dose: Yes, naproxen yesterday Response to infusions: Patient tolerating infusion without side effects. Current Preventative: gabapentin, metoprolol Current Abortive: naproxen Labs: Latest Ref Rng & Units 02/25/2025 CBC WBC 3.70 - 11.00 k/uL 13.51 RBC 3.90 - 5.20 m/uL 4.72 Hemoglobin 11.5 - 15.5 g/dL 11.9 Hematocrit 36.0 - 46.0 % 38.4 MCV 80.0 - 100.0 fL 81.4 MCH 26.0 - 34.0 pg 25.2 MCHC 30.5 - 36.0 g/dL 31.0 RDW-CV 11.5 - 15.0 % 15.9 Platelet Count 150 - 400 k/uL 208 MPV 9.0 - 12.7 fL 12.1 Latest Ref Rng & Units 02/26/2025 CMP Sodium 136 - 144 mmol/L 137 Potassium 3.7 - 5.1 mmol/L 3.8 Chloride 98 - 107 mmol/L 105 CO2 22 - 30 mmol/L 22 Glucose 74 - 99 mg/dL 106 BUN 7 - 21 mg/dL 8 Creatinine 0.58 - 0.96 mg/dL 0.54 EGFR >=60 mL/min/1.73m 124 Albumin 3.9 - 4.9 g/dL 3.5 Calcium 8.5 - 10.2 mg/dL 8.3 ALLERGIES Allergen Reactions Prochlorperazine Mental Status Change Compazine akathesia Diphenhydramine Intolerance Heart palpitations, anxiety Current Medications: flecainide (TAMBOCOR) 100 mg tablet^Take 1 tablet by mouth every 12 hours.^Disp: 180 tablet^Rfl: 1 promethazine (PHENERGAN) 25 mg tablet^1/2 to 1 po q8h prn headache or nausea^Disp: 45 tablet^Rfl: 11 gabapentin (NEURONTIN) 100 mg capsule^Take 1 po at onset of migraine if needed repeat in 8 hours^Disp: 30 capsule^Rfl: 5 metoprolol tartrate, short acting, (LOPRESSOR) 25 mg tablet^Take 1 tablet by mouth two times a day.^Disp: ^Rfl: lisinopril (ZESTRIL) 20 mg tablet^Take 20 mg by mouth two times a day.^Disp: ^Rfl: ascorbic acid, vitamin C, (VITAMIN C) 500 mg tablet^Take 500 mg by mouth once daily.^Disp: ^Rfl: ondansetron (ZOFRAN) 8 mg tablet^FOR NAUSEA. Take on at onset of nausea or migraine,may repeat dose in 8 hours if needed.^Disp: 20 tablet^Rfl: 4 naproxen (NAPROSYN) 500 mg tablet^Take 1 tablet by mouth two times a day as needed for pain.^Disp: 60 tablet^Rfl: 3 levothyroxine (SYNTHROID) 50 mcg tablet^Take 50 mcg by mouth every morning. Take On an Empty Stomach^Disp: ^Rfl: aspirin, enteric coated (ASPIRIN, ENTERIC COATED) 81 mg EC tablet^Take 81 mg by mouth daily at bedtime. ^Disp: ^Rfl: cholecalciferol, vitamin D3, (VITAMIN D3 ORAL)^Take by mouth once daily.^Disp: ^Rfl: PNV/FERROUS SULFATE/FOLIC ACID ( MULTIVIT WITH IRON ORAL)^Take by mouth daily at bedtime. ^Disp: ^Rfl: albuterol HFA (PROVENTIL HFA, VENTOLIN HFA) 90 mcg/actuation inhaler^Inhale 2 Puffs as instructed every 4 hours as needed for Wheezing/Shortness of Breath.^Disp: ^Rfl: Review of Systems: Review of system: Patient reports no change from the prior visit. Objective: VS: see infusion note for vital signs General: well appearing, in no acute distress, well-hydrated, well nourished, alert, obese, solicited verbal complaints Lungs: normal breath sounds bilaterally CV: RRR, normal S1, S2 auscultated, no murmurs, and no JVD GI: Bowel sounds present in all four quadrants - Yes Neurological: Pain Behaviors: solicited verbal complaints Mental Status: Alert and oriented to person, place and time. Affect is normal. Speech is spontaneous and fluent without dysarthria. 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 Attention span and concentration are excellent. Cranial Nerves: VII-face is symmetric without evidence of weakness. VIII-hearing intact. Assessment: Chronic migraine without aura, with intractable migraine, so stated, with status migrainosus (primary encounter diagnosis) Plan: Ambika Brown is a 35 year old year old female, with a history of chronic migraines with status migrainosus following up today for day 1 of infusions. Follow up plan: Return for Day 2 of infusions tomorrow. Level of service: Est level 2 (10-19 min). Time spent 11 min on the day of service, which included preparing to see the patient, [id number] patient care, completing clinical documentation, obtaining and/or reviewing separately obtained history, and performing a medically appropriate examination. Aarti Huertas PA-C Headache Section [facility] March 10, 2025 documented in this encounter [facility] 03-10-2025 Note HNO ID: [id number] Author: GISELLE CALVO RN Service: ? Author Type: Registered Nurse Type: Progress Notes Filed: 03/10/2025 14:37 Note Text: 1032 Patient in for 1st day of IV infusions. Patient rated headache 8/10. Patient stated mild nausea and no dizziness. Patient educated on medications to be administered. Patient verbalized understanding and agreed to proceed with infusions. Certified Veterinary Technician: no Magnesium 1gmX2 doses d/t fluid shortage -pts flecainide flagged with Zofran prolong Qtc intervals. Pt had heart ablation last month, which she states failed. Has intermittent heart palpitations, not new, last had today on the walk to our lobby. Does take PO zofran at home, none today. Rebecca MEDEL reviewed chart. Ok to give zofran for her nausea -Pt stated that her BP does run high at times especially lately. Today 133/86. Ok to give fluids per Rebecca MEDEL, pt states she hasn't been hydrating like she should. 1112 prn zofran given for nausea After depacon pt stated IV site felt sore. No redness or swelling. Flushes well and + positive blood return. Offered switching IV site, pt declined at this time. Pt agreed to ice pack. Ice pack effective for the IV soreness 1425 Pts infusions complete. Pt tolerated infusion well. Pt rated headache 5/10. Pt stated no nausea and no dizziness. Pt discharged from treatment room. [facility] 03-10-2025 History of Presen t illness Narrative 1032 Patient in for 1st day of IV infusions. Patient rated headache 8/10. Patient stated mild nausea and no dizziness. Patient educated on medications to be administered. Patient verbalized understanding and agreed to proceed with infusions. Certified Veterinary Technician: no Magnesium 1gmX2 doses d/t fluid shortage -pts flecainide flagged with Zofran prolong Qtc intervals. Pt had heart ablation last month, which she states failed. Has intermittent heart palpitations, not new, last had today on the walk to our lobby. Does take PO zofran at home, none today. Rebecca MEDEL reviewed chart. Ok to give zofran for her nausea -Pt stated that her BP does run high at times especially lately. Today 133/86. Ok to give fluids per Rebecca MEDEL, pt states she hasn't been hydrating like she should. 1112 prn zofran given for nausea After depacon pt stated IV site felt sore. No redness or swelling. Flushes well and + positive blood return. Offered switching IV site, pt declined at this time. Pt agreed to ice pack. Ice pack effective for the IV soreness 1425 Pts infusions complete. Pt tolerated infusion well. Pt rated headache 5/10. Pt stated no nausea and no dizziness. Pt discharged from treatment room. documented in this encounter [facility] 03-09-2025 Instructions Aga Klein APRN.CNP - 03/09/2025 8:06 AM EDT Infusions are done here at [facility] in the [facility]. Our infusion treatment room is where an individual may come to receive outpatient intravenous medications for the purpose of aborting the headache and/ or migraine symptoms for ideally three consecutive days. There are many medications that can be used for your infusion therapy and your team will decide which ones and how much you will receive. The medicines chosen are based on your type of headache, other medical conditions, allergies, and previous response to certain medications. The most common classifications of medications we use are anti-histamines, anti-emetics, anti-seizures, smooth muscle relaxers, steroids, NSAIDS, and DHE-45. Please do not take any triptans (ex: almotriptan, eletriptan, frovatriptan, naratriptan, rizatriptan, sumatriptan, zolmitriptan). Please continue all other home medications as prescribed. Plan on staying about 4-5 hours, but the length of treatment may vary depending on the medications you will receive. Your nurse will be able to give you more of an approximate time after she receives the orders from your provider. It is best to have a chassis driver, as some medications we use may cause drowsiness. If you do not have a chassis driver, please let your nurse know and you will not be given any medication that may cause drowsiness. Most patients prefer to sleep during their infusion. We do not have TV or radio in the treatment room. If you find music relaxing you may bring headphones to listen on your device. All chairs in the treatment room recline for comfort. You may bring a light lunch, snack, or beverage. We do have some sodas, juices, and crackers if you prefer. The room is maintained at a dark and cool temperature, so layer clothing for comfort. We will need access to your arms for placement of an IV. Please refrain from wearing perfumes, colognes, and heavy scented lotions. documented in this encounter [facility] 03-09-2025 History of Presen t illness Narrative Images from the original note were not included. Headache Center - Follow up Virtual Visit Patient's headache clinic evaluation was scheduled as a virtual visit using the following platform Zoom Ambika Brown was identified by name and and consented to the video evaluation and its limitations. Based on this evaluation it may be necessary for them to schedule a follow up evaluation with me or other neurologists for formal physical examination and if necessary, other studies. I have communicated my name and active licensure. The patient's identity and physical location were verified at the time of this visit. Either the patient or their legal telephone sales representative has been informed of the risks and benefits of -- and alternatives to -- treatment through a remote evaluation and consents to proceed with the evaluation remotely. 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 Pots (Postural Orthostatic Tachycardia Syndrome) Pain Disorder Associated With Psychological Factors and Medical Condition Rls (Restless Legs Syndrome) Neck Pain Syncope Palpitations Nonsustained Ventricular Tachycardia (Hcc) Obesity, Class III, BMI >= 40 Paroxysmal Supraventricular Tachycardia (Hcc) Fibromyositis Hypothyroid Implantable Loop Recorder Present Metabolic Syndrome Morbid Obesity (Hcc) Obstructive Sleep Apnea Syndrome V-Tach (Hcc) Status Post Ablation Operation for Arrhythmia Pvc (Premature Ventricular Contraction) Vision Changes Left-Sided Weakness Chief Complaint: headache Last Office Visit: 02/09/25 w/ Lise Nevarez CNP Impression and Plan from last visit: 3 months overdue for Botox - working with Cardiology - Arrhythmia(NSVT/SVT), syncope/near syncope Completed IMATCH 2018 She is now approved for 200 units Impression: Intractable chronic migraine without aura and with status migrainosus (primary encounter diagnosis) Plan: Follow-Up Onabotulinum Toxin A (BotoxTM) for Migraine Indication: Chronic Intractable Migraine Treatment #: 17 Referral Expiration: 10/07/2025 Interval Headache History: Ambika Brown is a 35 year old year old female, with a history of SVT s/p radiofrequency ablation anterior left ventricle 02/24/2025, HTN, asthma, migraines, HOSEA, hypothyroidism, GERD, and obesity following up today virtually for migraines. Since the last visit, the patient states that her headaches are slightly worse. Migraine: - Persistent migraine since cardiac ablation on 02/24. - Describes it as one of the worst migraines in a long time. - Initially managed with usual treatments, avoiding certain medications due to fear of rebound headaches. - Experienced a hemiplegic migraine the day after the procedure, leading to hospital readmission. - Hospital treatment provided some relief; specific medications unknown. - Hemiplegic symptoms, including numbness, have resolved. - Reports ongoing fuzziness and difficulty with word recall. - Current migraine is manageable but persistent, seeking further treatment. - History of sensitivity to medications; prefers infusions over nerve blocks. - Allergic to Benadryl; tolerates Zofran well. - Currently using naproxen, Phenergan, and gabapentin PRN. - Delayed Botox treatment by a couple of months. - Denies any new health issues since the hospital admission. Cardiac Ablation: - Underwent cardiac ablation on 02/24. - Reports that the procedure failed. - Current heart rate is 81 bpm; notes that it doesn't take much for my heart to kind of go a little crazy. Preventative: botox Abortive: Naproxen, Phenergan, gabapentin Analgesic Ketorolac (Toradol) Anti-Convulsant Divalproex sodium (Depakote) Gabapentin (Neurontin) Levetiracetam (Keppra) Topiramate (Topamax, Trokendi XL, Qudexy) Zonisamide (Zonegram) Anti-Depressant and Antipsychotic Fluoxetine (Prozac) Antiemetics Ondansetron Prochlorperazine Promethazine Anti-Migraine Dihydroergotamine (DHE-45, Migranal) Blood Pressure Nadolol (Corgard) Botulinum Toxin Onabotulinum Toxin A (Botox) Sleep Aids Melatonin Supplements Magnesium Other Medications Dexamethasone (Decadron) Over the Counter Medications Acetaminophen (Tylenol) Aspirin Ibuprofen (Advil, Motrin) Naproxen sodium (Aleve) PAST MEDICAL HISTORY Diagnosis Date Asthma (HCC) Chronic hypertension Clotting disorder (HCC) Fibromyalgia GERD (gastroesophageal reflux disease) Gestational diabetes (HCC) Hiatal hernia Hypothyroidism Implantable loop recorder present Insulin resistance Lupus anticoagulant disorder (HCC) Migraines Nonsustained ventricular tachycardia (HCC) Obesity, Class III, BMI >= 40 07/15/2021 Obstructive sleep apnea syndrome 09/21/2022 Has CPAP machine but currently not using- needs to get full mask, still working on this. Challenged with side sleeping and nasal congestion impacting comfort with mask. Suggest cool mist humidifier. Counseled on importance of compliance for and cardiovascular health. improved sleep with pillow adjustment. reports no further snoring Reviewed on 06/18/2023 Palpitations Pancreatitis (HCC) Paroxysmal supraventricular tachycardia (HCC) Pre-eclampsia (HCC) Supraventricular tachycardia (HCC) Syncope Thyroid disease PAST SURGICAL HISTORY Procedure Laterality Date DELIVERY ONLY 05/09/2023 CHOLECYSTECTOMY 2014 D&C, DIAG AND/OR THERAPEUTIC 2017 EP STUDY 02/13/2022 comprehensive EP study; normal study, no accessory pathways; +dual AV azra pathways but no inducible SVT; [facility] Dr. Rock EPS: [place] ABLATION 02/24/2025 PVC mapped to LV summit, not able to successfully ablate; [facility] Dr. Robin LOOP RECORDER IMPLANT Left 08/2022 [employer] implantable cardiac loop recorder insertion ORAL SURGERY PROCEDURE 2008 wisdom teeth TONSILLECTOMY HX 2004 ALLERGIES Allergen Reactions Prochlorperazine Mental Status Change Compazine akathesia Diphenhydramine Intolerance Heart palpitations, anxiety Current Medications: flecainide (TAMBOCOR) 100 mg tablet^Take 1 tablet by mouth every 12 hours.^Disp: 180 tablet^Rfl: 1 promethazine (PHENERGAN) 25 mg tablet^1/2 to 1 po q8h prn headache or nausea^Disp: 45 tablet^Rfl: 11 gabapentin (NEURONTIN) 100 mg capsule^Take 1 po at onset of migraine if needed repeat in 8 hours^Disp: 30 capsule^Rfl: 5 metoprolol tartrate, short acting, (LOPRESSOR) 25 mg tablet^Take 1 tablet by mouth two times a day.^Disp: ^Rfl: lisinopril (ZESTRIL) 20 mg tablet^Take 20 mg by mouth two times a day.^Disp: ^Rfl: ascorbic acid, vitamin C, (VITAMIN C) 500 mg tablet^Take 500 mg by mouth once daily.^Disp: ^Rfl: ondansetron (ZOFRAN) 8 mg tablet^FOR NAUSEA. Take on at onset of nausea or migraine,may repeat dose in 8 hours if needed.^Disp: 20 tablet^Rfl: 4 naproxen (NAPROSYN) 500 mg tablet^Take 1 tablet by mouth two times a day as needed for pain.^Disp: 60 tablet^Rfl: 3 levothyroxine (SYNTHROID) 50 mcg tablet^Take 50 mcg by mouth every morning. Take On an Empty Stomach^Disp: ^Rfl: aspirin, enteric coated (ASPIRIN, ENTERIC COATED) 81 mg EC tablet^Take 81 mg by mouth daily at bedtime. ^Disp: ^Rfl: cholecalciferol, vitamin D3, (VITAMIN D3 ORAL)^Take by mouth once daily.^Disp: ^Rfl: PNV/FERROUS SULFATE/FOLIC ACID ( MULTIVIT WITH IRON ORAL)^Take by mouth daily at bedtime. ^Disp: ^Rfl: albuterol HFA (PROVENTIL HFA, VENTOLIN HFA) 90 mcg/actuation inhaler^Inhale 2 Puffs as instructed every 4 hours as needed for Wheezing/Shortness of Breath.^Disp: ^Rfl: I have reviewed the Julius Status Assessment responses and discussed these with the patient: yes Aga Klein APRN.SCHEDULE CHECKER HEADACHE SCORES: 08/19/2024 02/09/2025 03/06/2025 Headache Questions ER visits since last office visit: 1 Hospital stays since last office visit 0 Limited ADLs in the last month: 5 Days missed from work or school in the last month: 0 Days headache pain free in the last month: 10 Days per month with ALL of the following symptoms - decreased productivity, light sensitivity and nausea: 15 Initial improvement of headache after botox injection at last visit: Very much improved Much improved Very much improved PRN medication usage in the last month: 8 Patient impression of improvement since last visit: Very much worse No change Minimally worse Proxy-reported 11/23/2023 08/01/2024 03/06/2025 HIT-6 HIT-6 64 (Severe impact) 65 (Severe impact) 62 (Severe impact) Proxy-reported 11/23/2023 08/01/2024 03/06/2025 MARCIA - 2/7 SCORES MARCIA-2 Score 4 1 3 MARCIA-7 Score 10 8 11/23/2023 08/01/2024 03/06/2025 Migraine Specific QOL - Higher scores indicate better HRQL Role Function-Restrictive Transformed Score (range: 0-100) 48.57 34.29 57.14 Role Function-Preventive Transformed Score (range: 0-100) 80 50 55 Emotional Function Transformed Score (range: 0-100) 53.33 33.33 53.33 Proxy-reported 11/23/2023 08/01/2024 03/06/2025 PHQ-9 Score 3 4 11 Studies to Review: No MRI Head/Brain - Last 2 Impressions MRI BRAIN WO IVCON Exam End: 02/26/2025 5:30 AM (Final result) Impression: IMPRESSION: Normal appearance to the brain with no evidence of acute cerebrovascular accident. ... MRI BRAIN WO IVCON Exam End: 12/27/2022 5:10 PM (Final result) Impression: Normal MRI examination of the brain. Report Dictated on Electronically Signed By: Marlon Millard Electronically Signed Date/Time: 12/27/2022 8:54 PM EDT MRA Head and/or Neck - Last 2 Impressions MRA BRAIN WO/W IVCON Collected: 05/19/2017 9:18 AM (Final result) CT Head/Brain - Last [address] BRAIN ATTACK WO IVCON Exam End: 02/25/2025 7:16 PM (Final result) Impression: IMPRESSION: 1. No evidence of acute intracranial hemorrhage. 2. No CT signs of acute stroke. CRITICAL TEST/RESULTS: Notification initiated at 02/25/2025 7:[address] Lauren on 02/25/2025 7:21 PM . CR_1 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: ALLEN Transcribe Date/Time: Feb 25 2025 7:17P Dictated by : NASH COON MD This examination was interpreted and the report reviewed and electronically signed by: NASH COON MD on Feb 25 2025 7:22PM EST CTA Head and/or Neck - Last 2 CTA NECK W IVCON Exam End: 02/25/2025 7:21 PM (Final result) Impression: IMPRESSION: 1. No evidence of significant carotid or vertebral artery stenosis. 2. No evidence of intracranial vascular stenosis or occlusion, with some limitation of distal vessel detail noted. Arterial blood flow was measured to detect acute large vessel occlusion by computer aided detection software: Not Performed. Concordance between software and imaging review: Not Applicable. 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: ALLEN Transcribe Date/Time: Feb 25 2025 7:22P Dictated by : NASH COON MD This examination was interpreted and the report reviewed and electronically signed by: NASH COON MD on Feb 25 2025 7:33PM EST CTA HEAD W IVCON Exam End: 02/25/2025 7:21 PM (Final result) Impression: IMPRESSION: 1. No evidence of significant carotid or vertebral artery stenosis. 2. No evidence of intracranial vascular stenosis or occlusion, with some limitation of distal vessel detail noted. Arterial blood flow was measured to detect acute large vessel occlusion by computer aided detection software: Not Performed. Concordance between software and imaging review: Not Applicable. 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: PSCEnrrique Transcribe Date/Time: Feb 25 2025 7:22P Dictated by : NASH COON MD This examination was interpreted and the report reviewed and electronically signed by: NASH COON MD on Feb 25 2025 7:33PM EST Labs to Review: No New Health Issues: Ablation 02/24/25 New Family History: No Review of Systems: Review of system: unchanged from the previous visit (sleep patterns, mood, energy, appetite, stress, exercising). Physical Examination: Vital Signs: LMP 07/29/2024 (Approximate) General: well appearing, in no acute distress, alert Pain Behaviors: no pain behaviors observed Neurological: Mental Status: Alert and oriented to person, place and time. Affect is normal and appropriate. Speech is spontaneous and fluent without dysarthria, normal in rate, volume and articulation, and clear, coherent, and relevant. Short and long-term memory, cognition and general fund of knowledge are good. Attention span and concentration are excellent. HEENT: Head is normocephalic and features were symmetric. Musculoskeletal: Patient able to sit up right in chair for entirety of visit. Cranial Nerves: III, IV, -EOMI: full. VII-face is symmetric without evidence of weakness. VIII-hearing intact. ASSESSMENT/PLAN: 1. Chronic migraine without aura, with intractable migraine, so stated, with status migrainosus (G43.711) - Persistent migraine since cardiac ablation on the , with a recent episode of hemiplegic migraine requiring hospitalization. - Current symptoms include ongoing headache and cognitive difficulties, but numbness has resolved. - Delayed Botox administration may be contributing to the current migraine cycle. - Continues to use naproxen, Phenergan, and gabapentin as needed, but reports limited efficacy. - Discussed treatment options including nerve block and infusions; patient prefers to proceed directly with infusions. - Ordered infusions of Robaxin, Depacon, and Magnesium, excluding Decadron due to potential tachycardia risk post-ablation. - Will monitor response to infusions; if no improvement by day 3, may consider adding Decadron if needed. - Patient agrees to treatment plan and will be scheduled for infusions starting tomorrow. HEADACHE MANAGEMENT: (You are the primary guardian of your health and headache. Keep track of all medications: This includes the reason for use, side effects and benefits.) MEDICATION TREATMENT: Medications to Start Taking None Discussed pathophysiology of headache. Discussed use of headache diary. Discussed triggers and lifestyle modifications including limiting caffeine consumption. Discussed treatment options, both abortive and preventive medications. Instructed patient about medications. Discussed testing. Headache education was done. Discussed lifestyle modification including increased oral hydration, decreased caffeine, exercise and stress management. Discussed treatment options including preventive and acute medications, natural supplements, and infusion therapy. Discussed medication overuse headache and to limit use of acute treatments to no more than 2 days/week or 10 days/month. Discussed medication side effects, adverse reactions and drug interactions. Written educational materials and patient instructions outlining all of the above were given. Follow-up: for IV infusion Level of Service: Virtual Visit 30 minutes Recording using Geniuzz software for draft documentation of the visit was discussed with the patient/authorized telephone sales representative; all questions welcomed and answered. Patient/authorized telephone sales representative agreed to proceed Aga Klein APRN.CNP Headache Section [facility] March 09, 2025 documented in this encounter [facility] 03-09-2025 Note HNO ID: [id number] Author: AGA KLEIN APRN.CNP Service: ? Author Type: Nurse Practitioner Type: Progress Notes Filed: 03/09/2025 08:06 Note Text: Headache Center - Follow up Virtual Visit Patient's headache clinic evaluation was scheduled as a virtual visit using the following platform Zoom Ambika Brown was identified by name and and consented to the video evaluation and its limitations. Based on this evaluation it may be necessary for them to schedule a follow up evaluation with me or other neurologists for formal physical examination and if necessary, other studies. I have communicated my name and active licensure. The patient's identity and physical location were verified at the time of this visit. Either the patient or their legal telephone sales representative has been informed of the risks and benefits of -- and alternatives to -- treatment through a remote evaluation and consents to proceed with the evaluation remotely. 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 Pots (Postural Orthostatic Tachycardia Syndrome) Pain Disorder Associated With Psychological Factors and Medical Condition Rls (Restless Legs Syndrome) Neck Pain Syncope Palpitations Nonsustained Ventricular Tachycardia (Hcc) Obesity, Class III, BMI >= 40 Paroxysmal Supraventricular Tachycardia (Hcc) Fibromyositis Hypothyroid Implantable Loop Recorder Present Metabolic Syndrome Morbid Obesity (Hcc) Obstructive Sleep Apnea Syndrome V-Tach (Hcc) Status Post Ablation Operation for Arrhythmia Pvc (Premature Ventricular Contraction) Vision Changes Left-Sided Weakness Chief Complaint: headache Last Office Visit: 02/09/25 w/ Lise Nevarez CNP Impression and Plan from last visit: 3 months overdue for Botox - working with Cardiology - Arrhythmia(NSVT/SVT), syncope/near syncope Completed IMATCH 2018 She is now approved for 200 units Impression: Intractable chronic migraine without aura and with status migrainosus (primary encounter diagnosis) Plan: Follow-Up Onabotulinum Toxin A (BotoxTM) for Migraine Indication: Chronic Intractable Migraine Treatment #: 17 Referral Expiration: 10/07/2025 Interval Headache History: Ambika Brown is a 35 year old year old female, with a history of SVT s/p radiofrequency ablation anterior left ventricle 02/24/2025, HTN, asthma, migraines, HOSEA, hypothyroidism, GERD, and obesity following up today virtually for migraines. Since the last visit, the patient states that her headaches are slightly worse. Migraine: - Persistent migraine since cardiac ablation on 02/24. - Describes it as one of the worst migraines in a long time. - Initially managed with usual treatments, avoiding certain medications due to fear of rebound headaches. - Experienced a hemiplegic migraine the day after the procedure, leading to hospital readmission. - Hospital treatment provided some relief; specific medications unknown. - Hemiplegic symptoms, including numbness, have resolved. - Reports ongoing fuzziness and difficulty with word recall. - Current migraine is manageable but persistent, seeking further treatment. - History of sensitivity to medications; prefers infusions over nerve blocks. - Allergic to Benadryl; tolerates Zofran well. - Currently using naproxen, Phenergan, and gabapentin PRN. - Delayed Botox treatment by a couple of months. - Denies any new health issues since the hospital admission. Cardiac Ablation: - Underwent cardiac ablation on 02/24. - Reports that the procedure failed. - Current heart rate is 81 bpm; notes that it doesn't take much for my heart to kind of go a little crazy. Preventative: botox Abortive: Naproxen, Phenergan, gabapentin Analgesic Ketorolac (Toradol) Anti-Convulsant Divalproex sodium (Depakote) Gabapentin (Neurontin) Levetiracetam (Keppra) Topiramate (Topamax, Trokendi XL, Qudexy) Zonisamide (Zonegram) Anti-Depressant and Antipsychotic Fluoxetine (Prozac) Antiemetics Ondansetron Prochlorperazine Promethazine Anti-Migraine Dihydroergotamine (DHE-45, Migranal) Blood Pressure Nadolol (Corgard) Botulinum Toxin Onabotulinum Toxin A (Botox) Sleep Aids Melatonin Supplements Magnesium Other Medications Dexamethasone (Decadron) Over the Counter Medications Acetaminophen (Tylenol) Aspirin Ibuprofen (Advil, Motrin) Naproxen sodium (Aleve) PAST MEDICAL HISTORY Diagnosis Date Asthma (HCC) Chronic hypertension Clotting disorder (HCC) Fibromyalgia GERD (gastroesophageal reflux disease) Gestational diabetes (HCC) Hiatal hernia Hypothyroidism Implantable loop recorder present Insulin resistance Lupus anticoagulant disorder (HCC) Migraines Nonsustained ventricular tachycardia (HCC) Obe (more content not included)... [facility] 03-06-2025 History of Presen t illness Narrative Logged in for video visit with patient and patients audio was not working. Patient logged out and did not log back in for visit. I tried to call the patient but when calling the phone on the other end was static and I therefore could not reach her. Scheduling was contacted and patient was rescheduled to Sunday. Irma Mcintosh PA-C documented in this encounter [facility] 03-06-2025 Note HNO ID: [id number] Author: IRMA MCINTOSH PA-C Service: ? 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 Patient logged out and did not log back in for visit. I tried to call the patient but when calling the phone on the other end was static and I therefore could not reach her. Scheduling was contacted and patient was rescheduled to Sunday. Irma Mcintosh PA-C [facility] 03-04-2025 Telephone encounter Note We received FMLA Forms and were placed on 's dest.Sayra Adames MA [facility] 02-26-2025 Note HNO ID: [id number] Author: ARLEEN PERSON RN Service: Care Management Author Type: Registered Nurse Type: Care Mgt Progress Note Filed: 02/26/2025 10:27 Note Text: CARE MANAGEMENT INITIAL ASSESSMENT NOTE SERVICE DATE: February 26, 2025 SERVICE TIME: 10:27 AM Intimate Partner Violence We have begun to talk to patients about safe and healthy relationships because it can have a large impact on your health. Do you feel safe around your partner or ex-partner?: Yes Food Insecurity Within the past 12 months, you worried that your food would run out before you got the money to buy more.: Never true Within the past 12 months, the food you bought just didn't last and you didn't have money to get more.: Never true Transportation Needs In the past 12 months, has lack of transportation kept you from medical appointments or from getting medications?: No In the past 12 months, has lack of transportation kept you from meetings, work, or from getting things needed for daily living?: No Housing Stability In the past 12 months, how many times have you moved where you were living?: 0 At any time in the past 12 months, were you homeless or living in a [place] (including now)?: No Utilities In the past 12 months has the [employer], gas, oil, or water [employer] threatened to shut off services in your home?: No This patient has been screened for Care Management Transitional Planning Services. At this time, it does not appear this patient will require transition planning services. Should this change, and the patient require transition/discharge planning services during this admission, please call [phone]. SIGNATURE: Arleen Person RN PATIENT NAME: Ambika Brown DATE: February 26, 2025 TIME: 10:27 AM [facility] 02-25-2025 Note HNO ID: [id number] Author: AKIRA GRACIA MD Service: ? Author Type: Physician Type: Progress Notes Filed: 02/25/2025 19:48 Note Text: TELESTROKE DOCUMENTATION Name: Ambika Brown : 1990 Referring Site: [facility] Referring Provider: Dr Jett and resident Dr Lauren Last Known Well (Date/Time): 02/25/251699 Neurologist Callback (Date/Time): 02/25/25 190 Chief Complaint: Left sided weakness HPI: 35 year old female,h/o HOSEA, obesity, migraines, SVT. underwent PVC ablation yesterday and discharged earlier today. She says she noted headache after awakening from ablation procedure yesterday. About 2 hours prior to arrival, developed left sided weakness, dyarthria. Blurry on the left half vision. Sister called 911. In ED NIHSS 9 for LUE and LLE drift but also R sided drift, L facial weakness and sensory change. Delving further into history, she says that she has history of hemiplegic migraine but this feels different (left sided vision loss) and she had not had hemiplegic migraine for a few years. According to records In a 1.5 year period in [id number] she had 3 episodes of left sided weakness. Thoughdiagnosis of hemiplegic migraine was mentioned, functional components to her exams were noted by multiple physicians. 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 Stroke Risk Factors None NIHSS Telestroke Type - Patient location (ED or Inpatient): ED - Video Neurologist Performed Total Score: 4 NIHSS Performed Date: 02/25/25 NIHSS Performed Time: 1914 LOC: 0 LOC Questions: 0 LOC Commands: 0 Best Gaze: 0 Visual anderson: 0 Facial Palsy: 1 Motor Left Arm: 1 Motor Right Arm: 0 Motor Left Le Motor Right Le Limb Ataxia: 0 Sensory: 1 Best Language: 0 Dysarthria: 0 Extinction and Inattention: [address] Imaging reviewed, NO acute infarct/hemorrhage seen CTA Imaging reviewed, NO large vessel occlusion or severe stenosis seen Summary Stroke diagnosis uncertain - the risks of IV Thrombolysis outweigh the benefits of treatment Given her multiple episodes of left sided weakness that were not strokes and with my prior assessment of functional disorder, likely this episode is also not stroke. Headache should be treated and she should receive supportive care. MRI brain recommended to document again that there is no stroke. Potential Candidate for Endovascular Therapy: No - Negative for evidence of large vessel occlusion Disposition/Billing (Physician is not in the same physical location as the patient) The patient will remain at the referring institution for further evaluation and management Video: Minutes spent directly evaluating the patient via teleconferencing, reviewing pertinent diagnostic data, and coordinating care : 35 Video: Case complexity: Moderate More than 50 percent of the encounter was spent on coordinating care of the patient during a telestroke. Thank you for contacting the [facility]. I appreciate the opportunity for allowing me to participate in Ambika Brown's care. Please feel free to contact me and/or the [facility] at any time if you have any further questions or need additional assistance. Akira Gracia MD February 25, 2025 7:46 PM [facility] 02-25-2025 History of Presen t illness Narrative TELESTROKE DOCUMENTATION Name: Ambika Brown : 1990 Referring Site: [facility] Referring Provider: Dr Jett and resident Dr Lauren Last Known Well (Date/Time): 02/25/25 170 Neurologist Callback (Date/Time): 02/25/25 1908 Chief Complaint: Left sided weakness HPI: 35 year old female,h/o HOSEA, obesity, migraines, SVT. underwent PVC ablation yesterday and discharged earlier today. She says she noted headache after awakening from ablation procedure yesterday. About 2 hours prior to arrival, developed left sided weakness, dyarthria. Blurry on the left half vision. Sister called 911. In ED NIHSS 9 for LUE and LLE drift but also R sided drift, L facial weakness and sensory change. Delving further into history, she says that she has history of hemiplegic migraine but this feels different (left sided vision loss) and she had not had hemiplegic migraine for a few years. According to records In a 1.5 year period in [id number] she had 3 episodes of left sided weakness. Though diagnosis of hemiplegic migraine was mentioned, functional components to her exams were noted by multiple physicians. 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 Stroke Risk Factors None NIHSS Telestroke Type - Patient location (ED or Inpatient): ED - Video Neurologist Performed Total Score: 4 NIHSS Performed Date: 02/25/25 NIHSS Performed Time: 1914 LOC: 0 LOC Questions: 0 LOC Commands: 0 Best Gaze: 0 Visual anderson: 0 Facial Palsy: 1 Motor Left Arm: 1 Motor Right Arm: 0 Motor Left Le Motor Right Le Limb Ataxia: 0 Sensory: 1 Best Language: 0 Dysarthria: 0 Extinction and Inattention: [address] Imaging reviewed, NO acute infarct/hemorrhage seen CTA Imaging reviewed, NO large vessel occlusion or severe stenosis seen Summary Stroke diagnosis uncertain - the risks of IV Thrombolysis outweigh the benefits of treatment Given her multiple episodes of left sided weakness that were not strokes and with my prior assessment of functional disorder, likely this episode is also not stroke. Headache should be treated and she should receive supportive care. MRI brain recommended to document again that there is no stroke. Potential Candidate for Endovascular Therapy: No - Negative for evidence of large vessel occlusion Disposition/Billing (Physician is not in the same physical location as the patient) The patient will remain at the referring institution for further evaluation and management Video: Minutes spent directly evaluating the patient via teleconferencing, reviewing pertinent diagnostic data, and coordinating care : 35 Video: Case complexity: Moderate More than 50 percent of the encounter was spent on coordinating care of the patient during a telestroke. Thank you for contacting the [facility]. I appreciate the opportunity for allowing me to participate in Ambika Brown's care. Please feel free to contact me and/or the [facility] at any time if you have any further questions or need additional assistance. Akira Gracia MD February 25, 2025 7:46 PM documented in this encounter [facility] 02-25-2025 Telephone encounter Note Patient called to say she was having a left sided visual field blurring and that when she saw her sister, could not see her sister's left eye She says that the symptom is little better than earlier Has been having a headache. She wondered if this was a side effect of Flecainide. Discussed that one concern is a possible ministroke and the other is a possible side effect. Recommended coming to ED for evaluation and imaging. She said she would go to the closest ED which is [place] for her. Asked patient to subsequently notify us of the results of the evaluation. Tiffanie Beckham MD [facility] Work Phone: 02-25-2025 Miscellaneous Notes Patient called to say she was having a left sided visual field blurring and that when she saw her sister, could not see her sister's left eye She says that the symptom is little better than earlier Has been having a headache. She wondered if this was a side effect of Flecainide. Discussed that one concern is a possible ministroke and the other is a possible side effect. Recommended coming to ED for evaluation and imaging. She said she would go to the closest ED which is [place] for her. Asked patient to subsequently notify us of the results of the evaluation. Tiffanie Beckham MD documented in this encounter [facility] 02-25-2025 Telephone encounter Note Called and spoke with Ambika Brown. She voiced understanding that although monitor will be mailed now, she is to wait 1 month before wearing. Relayed 04/13 appointment time/date/location and that monitor results should be available for appt. Vilma Lakhani, MARGARITA [facility] 02-25-2025 Miscellaneous Notes Called and spoke with Ambika Stephanie. She voiced understanding that although monitor will be mailed now, she is to wait 1 month before wearing. Relayed 04/13 appointment time/date/location and that monitor results should be available for appt. iVlma Lakhani RN Cardiac testing reached out to inform me that the monitor will be mailed right away by Mary (currently there is no way to stop this), the patient should wait 1 month to apply the monitor, I believe she would understand to do this, but please reinforce the instructions. Thank you. Marie Cameron APRN.KEVIN Follow up(s) scheduled. Patient to be notified upon discharge. Washington Rosales Please arrange hospital follow-up in 8-[address] Rock or MARIA FERNANDA. Patient underwent electrophysiology study with attempted PVC ablation with Dr. Robin 02/24/2025. She is known to Dr. Rock. She was started on flecainide post procedure, is to wear a 14-day patch monitor in 1 month, will need results available for follow-up appointment. She is being discharged today. Thank you. Marie Cameron APRN.CNP documented in this encounter [facility] 02-25-2025 Telephone encounter Note Cardiac testing reached out to inform me that the monitor will be mailed right away by Mary (currently there is no way to stop this), the patient should wait 1 month to apply the monitor, I believe she would understand to do this, but please reinforce the instructions. Thank you. Marie Cameron APRN.SCHEDULE CHECKER T [facility] 02-25-2025 Telephone encounter Note Follow up(s) scheduled. Patient to be notified upon discharge. Washington Rosales T [facility] 02-25-2025 Telephone encounter Note Please arrange hospital follow-up in 8-[address] Rock or MARIA FERNANDA. Patient underwent electrophysiology study with attempted PVC ablation with Dr. Robin 02/24/2025. She is known to Dr. Rock. She was started on flecainide post procedure, is to wear a 14-day patch monitor in 1 month, will need results available for follow-up appointment. She is being discharged today. Thank you. Marie Cameron APRN.SCHEDULE CHECKER [facility] 02-24-2025 Note HNO ID: [id number] Author: TIFFANIE BECKHAM MD Service: Electrophysiology Author Type: Physician Type: Procedures Filed: 04/16/2025 13:57 Note Text: Patient Name: Ambika Brown : 1990 Ordering Provider: Marie Cameron Indication: I47.20 Ventricular Tachycardia, unspecified Type of Monitor: Extended Monitoring-Zio Patch Enrollment Dates: 03/24/2025-04/07/2025 IRHYTHM FINDINGS: Patient had a min HR of 42 bpm, max HR of 273 bpm, and avg HR of 88 bpm. Predominant underlying rhythm was Sinus Rhythm. 312 Ventricular Tachycardia runs occurred, the run with the fastest interval lasting 11 beats with a max rate of 273 bpm, the longest lasting 14 beats with an avg rate of 213 bpm. Ventricular Tachycardia was detected within +/- 45 seconds of symptomatic patient event(s). Isolated SVEs were occasional (1.4%, [id number]), and no SVE Couplets or SVE Triplets were present. Isolated VEs were rare (<1.0%, 5880), VE Couplets were rare (<1.0%, 487), and VE Triplets were rare (<1.0%, 457). Ventricular Bigeminy and Trigeminy were present. Several runs of NSVT Correlate clinically. I reviewed and agree with the technical findings Tiffanie Beckham April 16, 2025 1:57 PM [facility] 02-09-2025 Telephone encounter Note Pt's name has been added to [facility] procedure board. Aurora Goodson RN [facility] 02-09-2025 Miscellaneous Notes Pt's name has been added to [facility] procedure board. Aurora Goodson RN Patient is scheduled for an SVT study/Ablation on 02/[address] Robin (per ABBEY) The hospital will call the day before between 2-5pm with your arrival time. You should not eat or drink after midnight the day before the procedure. You will need a chassis driver when released from the hospital and you will stay overnight for observation. You should continue to take medications as prescribed the morning of the procedure with just a sip of water but Hold metoprolol (and flecainide if she starts it) 1 week prior *patient stated she has not started flecainide Spoke with Ambika Brown on February 09, 2025. Informed of instructions as stated above. Patient verbalized understanding. Washington Rosales documented in this encounter [facility] 02-09-2025 Telephone encounter Note Patient is scheduled for an SVT study/Ablation on 02/[address] Robin (per ABBEY) The hospital will call the day before between 2-5pm with your arrival time. You should not eat or drink after midnight the day before the procedure. You will need a chassis driver when released from the hospital and you will stay overnight for observation. You should continue to take medications as prescribed the morning of the procedure with just a sip of water but Hold metoprolol (and flecainide if she starts it) 1 week prior *patient stated she has not started flecainide Spoke with Ambika Brown on February 09, 2025. Informed of instructions as stated above. Patient verbalized understanding. Washington Rosales [facility] 02-09-2025 History of Presen t illness Narrative Images from the original note were not included. [facility] Follow-up Visit Current Preventive: Botox Change needed for current preventive? No Current Abortive: Naproxen, Phenergan, gabapentin Change needed for current abortive? No Frequency of Abortive Use (per month): 10 Duration of headaches with treatment: 1 days (24 hours) Miscellaneous Patient Concerns: 3 months overdue for Botox - working with Cardiology - Arrhythmia(NSVT/SVT), syncope/near syncope Completed IMATCH 2018 She is now approved for 200 units Impression: Intractable chronic migraine without aura and with status migrainosus (primary encounter diagnosis) Plan: Follow-Up Onabotulinum Toxin A (BotoxTM) for Migraine Indication: Chronic Intractable Migraine Treatment #: 17 Referral Expiration: 10/07/2025 Prior to the initiation of the FIRST treatment with Onabotulinum Toxin A, the patient reported the following average headache frequency over the past 3 MONTHS: Number of moderate-severe migraine days/month: 20 Number of mild migraine days/month: 10 Number of headache free days/month: 0 (0 headache-free hours) Migraine severity: 8/10 After treatment with Onabotulinum Toxin A: Number of moderate-severe migraine days/month: 10 Number of mild migraine days/month: 5 Number of headache free days/month: 15 (360 headache-free hours) Migraine severity: 7/10 Patient reduction in overall migraine days: Yes Patient reduction in moderate-severe migraine days: Yes Patient reduction of headache hours by 100 hours or more: Yes (reduction of 360 hours) Individual has obtained clinical benefit deemed significant by individual or prescriber (Y/N): Yes Patient's quality of life and ability to perform ADLs has improved (Y/N): Yes Side effects: none Wearing off: Yes - 10 weeks after treatment The patient has been assessed for disorders which could contribute to breathing or swallowing difficulty, and there is no contraindication with PREEMPT Botox. There is no documented allergic reaction/hypersensitivity to any botulinum toxin and there is no active infection at proposed injection site. HEADACHE SCORES: 11/23/2023 08/01/2024 08/19/2024 Headache Questions ER visits since last office visit: 1 0 Hospital stays since last office visit 0 0 Limited ADLs in the last month: 3 10 Days missed from work or school in the last month: 0 0 Days headache pain free in the last month: 8 5 Days per month with ALL of the following symptoms - decreased productivity, light sensitivity and nausea: 10 18 Initial improvement of headache after botox injection at last visit: Not applicable, I did not have a botox injection at my last visit Much improved Very much improved PRN medication usage in the last month: 10 9 Patient impression of improvement since last visit: Very much worse Minimally improved Very much worse Proxy-reported 05/29/2023 11/23/2023 08/01/2024 HIT-6 HIT-6 67 (Severe impact) 64 (Severe impact) 65 (Severe impact) Proxy-reported 05/29/2023 11/23/2023 08/01/2024 MARCIA - 2/7 SCORES MARCIA-2 Score 0 4 1 MARCIA-7 Score 10 05/29/2023 11/23/2023 08/01/2024 Migraine Specific QOL - Higher scores indicate better HRQL Role Function-Restrictive Transformed Score (range: 0-100) 40 48.57 34.29 Role Function-Preventive Transformed Score (range: 0-100) 40 80 50 Emotional Function Transformed Score (range: 0-100) 0 53.33 33.33 Proxy-reported 05/29/2023 11/23/2023 08/01/2024 PHQ-9 Score 13 3 4 LMP 07/29/2024 (Approximate) BP 129/91 (BP Position: Sitting) Pulse 97 Wt (!) 154 kg (339 lb 8.1 oz) LMP 07/29/2024 (Approximate) SpO2 97% BMI 53.17 kg/m Patient name: Ambika Brown : 1990 ALLERGIES Allergen Reactions Prochlorperazine Mental Status Change Compazine akathesia Diphenhydramine Intolerance Heart palpitations, anxiety AUTOAPPROVAL RECEIVED Benefit Type: Medical Servicing Location Tax ID: [id number] Payor Name: MMO Authorization received via portal: [employer] Drug Name(s) & HCPCS Code(s): Botox J0585 Approval Date Range: 10/08/2024 to 10/07/2025 Approval #: [id number] Dose & Frequency: 200 units every 12 weeks for 1 year # Visits/Treatments (if applicable): 5 Approval letter scanned into chart UNIVERSAL PROTOCOL / SAFETY CHECKLIST Procedure: Onabotulinum toxin A for migraine Informed Consent Consent Obtained: Written [place] Protocol A moment to CARE was completed SIGN IN Personnel directly involved with the procedure wore the appropriate PPE Special Equipment: N/A Patient/Surrogate Stated/Verified: Patient name, Date of , Relevant allergies and Intended procedure TIME OUT No relevant labs, photos, and/or imaging studies were applicable for review. Consent documented and matches the intended procedure No correct side/site applicable for marking and visibility. No medications required for procedure. No fire risk assessment and interventions applicable. No implant(s) inserted. SIGN OUT No specimen collected. Written Consent Obtained: Written LOT #: [id number] Expiration Date: Month: 10 Year: 2026 Injection Sites Left (Units) Left (Sites) Right (Units) Right (Sites) TOTAL (Units) Insulation Cupola Operator 5 1 5 1 10 Procerus Units: 5 Sites: 1 5 Frontalis 10 2 10 2 20 Temporalis 20 4 20 4 40 Occipitalis optional follow the pain 15 7.5 3 15 7.5 3 45 Cervical PSP optional follow the pain 10 5 2 10 5 2 30 Trapezius optional follow the pain 15 10 3 15 10 3 50 Total Units used: 200 Total Units wasted: 0 Prior Therapies Duration of Use Dose Side effect Analgesic Ketorolac (Toradol) Anti-Convulsant Divalproex sodium (Depakote) Gabapentin (Neurontin) Levetiracetam (Keppra) Topiramate (Topamax, Trokendi XL, Qudexy) Zonisamide (Zonegram) Anti-Depressant and Antipsychotic Fluoxetine (Prozac) Antiemetics Ondansetron Prochlorperazine Promethazine Anti-Migraine Dihydroergotamine (DHE-45, Migranal) Blood Pressure Nadolol (Corgard) Botulinum Toxin Onabotulinum Toxin A (Botox) Sleep Aids Melatonin Supplements Magnesium Other Medications Dexamethasone (Decadron) Over the Counter Medications Acetaminophen (Tylenol) Aspirin Ibuprofen (Advil, Motrin) Naproxen sodium (Aleve) Lise Nevarez APRN.SCHEDULE CHECKER Answers submitted by the patient for this visit: Headache Questionnaire (Submitted on 02/09/2025) How many days of work or school have you missed due to headaches in the last month? : 0 In the last month, how many headache days did you experience ALL of the following symptoms: decreased productivity, light sensitivity and nausea?: 15 How many days have you been completely free of headache pain in the last month? : 10 documented in this encounter [facility] 02-09-2025 Note HNO ID: [id number] Author: LISE NEVAREZ APRN.KEVIN Service: ? Author Type: Nurse Practitioner Type: Progress Notes Filed: 02/09/2025 10:35 Note Text: Headache Center Follow-up Visit Current Preventive: Botox Change needed for current preventive? No Current Abortive: Naproxen, Phenergan, gabapentin Change needed for current abortive? No Frequency of Abortive Use (per month): 10 Duration of headaches with treatment: 1 days (24 hours) Miscellaneous Patient Concerns: 3 months overdue for Botox - working with Cardiology - Arrhythmia(NSVT/SVT), syncope/near syncope Completed IMATCH 2018 She is now approved for 200 units Impression: Intractable chronic migraine without aura and with status migrainosus (primary encounter diagnosis) Plan: Follow-Up Onabotulinum Toxin A (BotoxTM) for Migraine Indication: Chronic Intractable Migraine Treatment #: 17 Referral Expiration: 10/07/2025 Prior to the initiation of the FIRST treatment with Onabotulinum Toxin A, the patient reported the following average headache frequency over the past 3 MONTHS: Number of moderate-severe migraine days/month: 20 Number of mild migraine days/month: 10 Number of headache free days/month: 0 (0 headache-free hours) Migraine severity: 8/10 After treatment with Onabotulinum Toxin A: Number of moderate-severe migraine days/month: 10 Number of mild migraine days/month: 5 Number of headache free days/month: 15 (360 headache-free hours) Migraine severity: 03/19 Patient reduction in overall migraine days: Yes Patient reduction in moderate-severe migraine days: Yes Patient reduction of headache hours by 100 hours or more: Yes (reduction of 360 hours) Individual has obtained clinical benefit deemed significant by individual or prescriber (Y/N): Yes Patient's quality of life and ability to perform ADLs has improved (Y/N): Yes Side effects: none Wearing off: Yes - 10 weeks after treatment The patient has been assessed for disorders which could contribute to breathing or swallowing difficulty, and there is no contraindication with PREEMPT Botox. There is no documented allergic reaction/hypersensitivity to any botulinum toxin and there is no active infection at proposed injection site. HEADACHE SCORES: 11/23/2023 08/01/2024 08/19/2024 Headache Questions ER visits since last office visit: 1 0 Hospital stays since last office visit 0 0 Limited ADLs in the last month: 3 10 Days missed from work or school in the last month: 0 0 Days headache pain free in the last month: 8 5 Days per month with ALL of the following symptoms - decreased productivity, light sensitivity and nausea: 10 18 Initial improvement of headache after botox injection at last visit: Not applicable, I did not have a botox injection at my last visit Much improved Very much improved PRN medication usage in the last month: 10 9 Patient impression of improvement since last visit: Very much worse Minimally improved Very much worse Proxy-reported 05/29/2023 11/23/2023 08/01/2024 HIT-6 HIT-6 67 (Severe impact) 64 (Severe impact) 65 (Severe impact) Proxy-reported 05/29/2023 11/23/2023 08/01/2024 MARCIA - 2/7 SCORES MARCIA-2 Score 0 4 1 MARCIA-7 Score 10 05/29/2023 11/23/2023 08/01/2024 Migraine Specific QOL - Higher scores indicate better HRQL Role Function-Restrictive Transformed Score (range: 0-100) 40 48.57 34.29 Role Function-Preventive Transformed Score (range: 0-100) 40 80 50 Emotional Function Transformed Score (range: 0-100) 0 53.33 33.33 Proxy-reported 05/29/2023 11/23/2023 08/01/2024 PHQ-9 Score 13 3 4 LMP 07/29/2024 (Approximate) BP 129/91 (BP Position: Sitting) Pulse 97 Wt (!) 154 kg (339 lb 8.1 oz) LMP 07/29/2024 (Approximate) SpO2 97% BMI 53.17 kg/m? Patient name: Ambika Brown : 1990 ALLERGIES Allergen Reactions Prochlorperazine Mental Status Change Compazine akathesia Diphenhydramine Intolerance Heart palpitations, anxiety AUTOAPPROVAL RECEIVED Benefit Type: Medical Servicing Location Tax ID: [id number] Payor Name: MMO Authorization received via portal: [employer] [facility]otox J0585 Approval Date Range: 10/08/2024 to 10/07/2025 Approval #: [id number] Dose AND Frequency: 200 units every 12 weeks for 1 year # Visits/Treatments (if applicable): 5 Approval letter scanned into chart UNIVERSAL PROTOCOL / SAFETY CHECKLIST Procedure: Onabotulinum toxin A for migraine Informed Consent Consent Obtained: Written [place] Protocol A moment to CARE was completed SIGN IN Personnel directly involved with the procedure wore the appropriate PPE Special Equipment: N/A Patient/Surrogate Stated/Verified: Patient name, Date of , Relevant allergies and Intended procedure TIME OUT No relevant labs, photos, and/or imaging studies were applicable for review. Consent documented and matches the intended procedure No correct side/site (more content not included)... [facility] 01-16-2025 Note HNO ID: [id number] Author: KARIN MARTINO MD Service: Electrophysiology Author Type: Physician Type: Progress Notes Filed: 01/16/2025 15:42 Note Text: INPATIENT PROGRESS NOTE SERVICE DATE: 01/16/2025 SERVICE TIME: 3:38 PM Subjective Subjective: Symptoms: Stable. Diet: Adequate intake. Activity level: Normal. Pain: She reports no pain. Current Facility-Administered Medications Medication Dose Route Frequency aspirin, enteric coated 81 mg tab(s) 81 mg ORAL AT BEDTIME metoprolol tartrate (short acting) 25 mg tab(s) (LOPRESSOR) 25 mg ORAL BID albuterol HFA 90 mcg/actuation 2 puff (PROVENTIL HFA, VENTOLIN HFA) 2 puff INHALATION q 4 H PRN levothyroxine 50 mcg tab(s) (SYNTHROID) 50 mcg ORAL DAILY (6 AM) aluminum-magnesium hydroxide-simethicone 200-200-20 mg/5 mL 30 mL 30 mL ORAL DAILY PRN ondansetron 4 mg tab(s) (ZOFRAN) 4 mg ORAL q 6 H PRN Or ondansetron (PF) 4 mg injection (ZOFRAN) 4 mg INTRAVENOUS q 6 H PRN NaCl 0.9% iv flush bag 20 mL INTRAVENOUS PRN sodium chloride 0.9 % (flush) 2-10 mL (BD POSIFLUSH) 2-10 mL INTRAVENOUS DIRECTED PRN ibuprofen 600 mg tab(s) (MOTRIN) 600 mg ORAL q 8 H PRN acetaminophen 650 mg tab(s) (TYLENOL) 650 mg ORAL q 6 H PRN Objective Objective: General Appearance: Comfortable and well-appearing. Vital signs: (most recent): Blood pressure 108/65, pulse 86, temperature 36.7 ?C (98.1 ?F), temperature source Oral, resp. rate 18, height 170.2 cm (5' 7), weight (!) 152.7 kg (336 lb 10.3 oz), last menstrual period 07/29/2024, SpO2 99%, not currently . Lungs: Normal effort. She is not in respiratory distress. Neurological: Patient is alert and oriented to person, place and time. Skin: Warm and dry. Patient Vitals for the past 24 hrs: BP Temp Temp src Pulse Resp SpO2 01/16/25 1127 108/65 36.7 ?C (98.1 ?F) Oral 86 -- 99 % 01/16/25 0550 114/74 36 ?C (96.8 ?F) Temporal 79 -- 98 % 01/15/25 2300 104/54 36.7 ?C (98.1 ?F) Oral 70 18 99 % 01/15/25 2102 129/84 36.2 ?C (97.2 ?F) Oral 69 18 96 % 01/15/25 2040 138/90 36.4 ?C (97.5 ?F) Oral 84 17 98 % 01/15/25 1800 -- -- -- -- 16 -- 01/15/25 1541 138/93 36.5 ?C (97.7 ?F) Oral 78 17 94 % Body mass index is 52.73 kg/m?. DATA: Diagnostic tests reviewed for today's visit: Most recent labs and imaging results. Assessment/Plan Principal Problem: 34-year-old female with history of suspected SVT, as well as NSVT, palpitation, and dizziness. Telemetry continues to show sinus rhythm without significant arrhythmia. Cardiac MR showed low normal LVEF, no LGE, and no findings suggestive of ARVC. Treadmill stress test did not result in significant increase of ventricular ectopy, although she had some PVCs and brief NSVT. Ambika has a recently described event monitor delivered to the house that she did not start wearing it. She can be discharged from EP standpoint with a plan for an outpatient monitor that she has already and subsequent follow-up with Dr. Rock. Resolved Problems: * No resolved hospital problems. * Medication and Non-Pharmacologic VTE Prophylaxis/Anticoagulants Anticoagulant AND Antiplatelet Medications (From admission, onward) Start Dose Route Frequency Last Action Ordered Stop 01/14/25 2100 aspirin, enteric coated 81 mg tab(s) 81 mg ORAL AT BEDTIME Given, 01/15 2100 01/13/25 0849 -- 01/13/25 0900 vte pharmacologic prophylaxis contraindicated (wa,oh) 01/13/25 0900 pneumatic compression sleeve(s) (wa,ne) VTE Prophylaxis: VTE prophylaxis appropriate SIGNATURE: Karin Martino MD PATIENT NAME: Ambika Brown DATE: January 16, 2025 TIME: 3:38 PM [facility] 01-16-2025 Note HNO ID: [id number] Author: GLENDY STORM, RN Service: Nursing Author Type: Registered Nurse Type: Nursing Progress Note Filed: 01/16/2025 09:41 Note Text: Cardiolyte Stress Test discussed with pt, voiced understanding. [facility] 01-16-2025 Note HNO ID: [id number] Author: DELBERT PACE RT(R) Service: Nuclear Radiology Author Type: Technologist Type: Progress Notes Filed: 01/16/2025 09:17 Note Text: RADIOLOGY SERVICE PROGRESS NOTE SERVICE DATE: 01/16/2025 SERVICE TIME: 9:15 AM PATIENT IDENTITY VERIFICATION COMPLETED USING TWO (2) STANDARD IDENTIFIERS: Name and Date of confirmed by patient verbally FALL SCREENING: Has the patient had 2 falls in the last year or 1 fall with injury or currently using an Ambulatory Assistive Device (Walker, Cane, Wheelchair, Crutches, etc.)? Inpatient: Screened on floor PATIENT GENDER DATA: .female : No ALLERGIES: Reviewed and unchanged MEDICATIONS REVIEWED: Yes PATIENT RELEVANT IMPLANT DATA REVIEWED: Not Applicable PATIENT PRESENTS WITH AN IMPLANTABLE OR ATTACHED SENIOR NETWORK ADMINISTRATOR: No CREATININE: Creatinine Date Value Ref Range Status 01/16/2025 0.66 0.58 - 0.96 mg/dL Final 01/15/2025 0.64 0.58 - 0.96 mg/dL Final 01/14/2025 0.72 0.58 - 0.96 mg/dL Final Estimated Glomerular Filtration Rate Date Value Ref Range Status 01/16/2025 119 >=60 mL/min/1.73m? Final Comment: Estimated Glomerular Filtration Rate (eGFR) is calculated using the 2020 CKD-EPI creatinine equation. This equation utilizes serum creatinine, sex, and age as parameters. The creatinine assay has traceable calibration to isotope dilution-mass spectrometry. Refer to KDIGO guidelines for clinical interpretation. In patients with unstable renal function, e.g. those with acute kidney injury, the eGFR may not accurately reflect actual GFR. eGFR- Date Value Ref Range Status 12/17/2017 >60 Final P.O.C.T. RESULTS: N/A January 16, [address] PERFORMED: No IV SITE: Inpatient - refer to LDA documentation POST EXAM PIV STATUS: Inpatient see LDA documentation PROCEDURE TYPE: NM Stress: 17.6 mCi [id number] was administered IV for Rest Imaging at 0740 by ms. 53.4 mCi [id number] was administered IV for Stress Imaging at 09 by ms. ADMINISTRATION TIME: 904 PATIENT DISCHARGED TO: Patient taken to IP transport area for return to RNF/ICU/ED. Is this a therapy: No A Diagnostic radioactive procedure has taken place, with no further precautions necessary other than routine body substance precautions. More information regarding radiation safety can be found using this link: [email or web address] SIGNATURE: RT Paulo(R) PATIENT NAME: Ambika Brown DATE: January 16, 2025 TIME: 9:15 AM PAGER/CONTACT #: [facility] 01-15-2025 Note HNO ID: [id number] Author: RACHAEL ARANGO LSW Service: Care Management Author Type: Recoverer Type: Care Mgt Progress Note Filed: 01/15/2025 13:48 Note Text: CARE MANAGEMENT PROGRESS NOTE SERVICE DATE: 01/15/2025 SERVICE TIME: 1:48 PM LOS: 0 days Plan for home once EP signs off. Family to transport SIGNATURE: MARCO Ponce PATIENT NAME: Ambika Brown DATE: January 15, 2025 TIME: 1:48 PM Ext [id number] [facility] 01-15-2025 Note HNO ID: [id number] Author: CELSO ROCHA DO Service: Hospital Medicine Author Type: Physician Type: Progress Notes Filed: 01/15/2025 12:30 Note Text: DEPARTMENT OF HOSPITAL MEDICINE PROGRESS NOTE SERVICE DATE: 01/15/2025 SERVICE TIME: 12:28 PM Hospital Medicine/Primary Attending: Celso Rocha DO NIGHT AND WEEKEND COVERAGE: After 7pm please page [phone] SUBJECTIVE: Patient seen examined at bedside. No new complaints or concerns reported, no events reported overnight. Denies any chest pain or shortness of breath. Reports she had episode of near syncope like event yesterday when walking. Otherwise no complaints. OBJECTIVE: PHYSICAL EXAM: BP 130/90 Pulse 76 Temp (Src) 97.2 (Temporal) Resp 18 Ht 5' 7 (1.70m) Wt 336 lb 10.3 oz (152.7kg) SpO2 95% LMP 07/29/2024 BMI 52.71 kg/(m2). O2 Therapy: Room Air GENERAL: Alert, no distress, cooperative, NAD SKIN: Warm, dry intact, no open lesions, no rashes HEAD/SINUSES: Normocephalic, atraumatic, oral mucosa moist EYES: PERRLA, EOMI NECK: No jugulovenous distention, Supple, no adenopathy LUNGS: Lungs clear to auscultation, no wheezes, ronchi, or rales CARDIAC: RRR ABDOMEN: Abdomen soft, non-tender, BS normal, No masses or organomegaly EXTREMITIES: Trace edema NEURO: Follows commands MEDICATIONS: Current Facility-Administered Medications Medication Dose Route Frequency aspirin, enteric coated 81 mg tab(s) 81 mg ORAL AT BEDTIME metoprolol tartrate (short acting) 25 mg tab(s) (LOPRESSOR) 25 mg ORAL BID albuterol HFA 90 mcg/actuation 2 puff (PROVENTIL HFA, VENTOLIN HFA) 2 puff INHALATION q 4 H PRN levothyroxine 50 mcg tab(s) (SYNTHROID) 50 mcg ORAL DAILY (6 AM) aluminum-magnesium hydroxide-simethicone 200-200-20 mg/5 mL 30 mL 30 mL ORAL DAILY PRN ondansetron 4 mg tab(s) (ZOFRAN) 4 mg ORAL q 6 H PRN Or ondansetron (PF) 4 mg injection (ZOFRAN) 4 mg INTRAVENOUS q 6 H PRN NaCl 0.9% iv flush bag 20 mL INTRAVENOUS PRN sodium chloride 0.9 % (flush) 2-10 mL (BD POSIFLUSH) 2-10 mL INTRAVENOUS DIRECTED PRN ibuprofen 600 mg tab(s) (MOTRIN) 600 mg ORAL q 8 H PRN acetaminophen 650 mg tab(s) (TYLENOL) 650 mg ORAL q 6 H PRN DATA: Diagnostic tests reviewed for today's visit: CBC: Recent Labs 01/15/25 0605 WBC 10.88 RBC 5.03 HB 12.7 HCT 41.3 PLT 200 MCV 82.1 MCH 25.2* MPV 11.8 Coags: No results for input(s): PT, INR, APTT in the last 24 hours. BMP: Recent Labs 01/15/25 0605 NA 135* K 4.1 CHLOR 102 CO2 22 BUN 13 CREAT 0.64 GLUC 110* CMP: Recent Labs 01/15/25 0605 NA 135* K 4.1 CHLOR 102 CO2 22 BUN 13 CREAT 0.64 GLUC 110* CA 8.5 ANION 11 Cardiac Enzymes: No results for input(s): CK, MB, CKMB, TROPT in the last 24 hours. Liver Function, Amylase, Lipase: No results for input(s): TPROT, ALB, ALT, AST, ALKPHOS, TBILI, AMYLASE, LIPASE, LACTATE in the last 24 hours. MG/PHOS: No results for input(s): MG, P in the last 24 hours. Renal Panel: Recent Labs 01/15/25 0605 CREAT 0.64 BUN 13 GLUC 110* CA 8.5 CHLOR 102 K 4.1 CO2 22 NA 135* Heme: No results for input(s): RETICP, ABSRETIC, LD, PABLO, FE, TIBC,TRANSFERSAT in the last 24 hours. No results found for: UALBCR Assessment/Plan This is a 34 year old female with: #Pre-Syncope #Palpitations with NSVT Cardiac MRI planned appreciate EP recs -Possibly stress test tomorrow morning # Left arm antecubital swelling/pain no erythema or warmth-noted to be from infiltrated IV at outside hospital-improving today -Recommended elevation, ice, ibuprofen -Monitor for any signs of infection #Hypertension -Home medication Norvasc 5 mg daily, lisinopril 20 mg daily, metoprolol -Continue Lopressor 25 mg twice daily -Resume additional agents pending blood pressure #Hypothyroidism -Continue Synthroid 50 mcg daily #Leukocytosis resolved #Obesity-BMI 52 -Weight loss, lifestyle modifications VTE Prophylaxis: Hold pending EP evaluation Disposition: Home Plan of care discussed with: Provider, RN, Patient Problem List V-tach (HCC) (POA: Yes) Palpitations (POA: Yes) Obesity, Class III, BMI >= 40 (POA: Yes) Hypothyroid (POA: Yes) This note was generated using [employer] voice dictation. All reasonable efforts were made to correct dictation errors. SIGNATURE: Celso Rocha DO PATIENT NAME: Ambika Brown DATE: January 15, 2025 TIME: 12:28 PM PAGER/CONTACT #: My Pager [facility] 01-15-2025 Note HNO ID: [id number] Author: KARIN MARTINO MD Service: Electrophysiology Author Type: Physician Type: Progress Notes Filed: 01/15/2025 10:49 Note Text: INPATIENT PROGRESS NOTE SERVICE DATE: 01/15/2025 SERVICE TIME: 10:49 AM Subjective Subjective: Symptoms: Stable. Diet: Adequate intake. Activity level: Normal. Pain: She reports no pain. Current Facility-Administered Medications Medication Dose Route Frequency aspirin, enteric coated 81 mg tab(s) 81 mg ORAL AT BEDTIME metoprolol tartrate (short acting) 25 mg tab(s) (LOPRESSOR) 25 mg ORAL BID albuterol HFA 90 mcg/actuation 2 puff (PROVENTIL HFA, VENTOLIN HFA) 2 puff INHALATION q 4 H PRN levothyroxine 50 mcg tab(s) (SYNTHROID) 50 mcg ORAL DAILY (6 AM) aluminum-magnesium hydroxide-simethicone 200-200-20 mg/5 mL 30 mL 30 mL ORAL DAILY PRN ondansetron 4 mg tab(s) (ZOFRAN) 4 mg ORAL q 6 H PRN Or ondansetron (PF) 4 mg injection (ZOFRAN) 4 mg INTRAVENOUS q 6 H PRN NaCl 0.9% iv flush bag 20 mL INTRAVENOUS PRN sodium chloride 0.9 % (flush) 2-10 mL (BD POSIFLUSH) 2-10 mL INTRAVENOUS DIRECTED PRN ibuprofen 600 mg tab(s) (MOTRIN) 600 mg ORAL q 8 H PRN acetaminophen 650 mg tab(s) (TYLENOL) 650 mg ORAL q 6 H PRN Objective Objective: General Appearance: Comfortable and well-appearing. Vital signs: (most recent): Blood pressure 126/77, pulse 71, temperature 36.6 ?C (97.9 ?F), temperature source Temporal, resp. rate 18, height 170.2 cm (5' 7), weight (!) 152.7 kg (336 lb 10.3 oz), last menstrual period 07/29/2024, SpO2 96%, not currently . Lungs: Normal effort. She is not in respiratory distress. Neurological: Patient is alert and oriented to person, place and time. Skin: Warm and dry. Patient Vitals for the past 24 hrs: BP Temp Temp src Pulse Resp SpO2 01/15/25 0726 126/77 36.6 ?C (97.9 ?F) Temporal 71 18 96 % 01/15/25 0553 109/53 -- -- 74 -- 96 % 01/14/25 2318 (!) 95/49 37 ?C (98.6 ?F) Oral 80 18 95 % 01/14/25 1938 115/72 37.1 ?C (98.7 ?F) Oral 86 18 99 % 01/14/25 1541 102/62 36.7 ?C (98.1 ?F) Oral 78 18 97 % 01/14/25 1129 112/74 36.8 ?C (98.2 ?F) -- 75 -- 96 % Body mass index is 52.73 kg/m?. DATA: Diagnostic tests reviewed for today's visit: Most recent labs and imaging results. Assessment/Plan Principal Problem: 34-year-old female with palpitation and NSVT. Telemetry shows sinus rhythm with no evidence of ventricular arrhythmia. Plan for cardiac MR and treadmill stress test, as arrhythmia appears to be associated with physical exertion. * No resolved hospital problems. * Morbid Obesity Class 3 Medication and Non-Pharmacologic VTE Prophylaxis/Anticoagulants Anticoagulant AND Antiplatelet Medications (From admission, onward) Start Dose Route Frequency Last Action Ordered Stop 01/14/25 2100 aspirin, enteric coated 81 mg tab(s) 81 mg ORAL AT BEDTIME Given, 01/14 204601/13/25 0849 -- 01/13/25 0900 vte pharmacologic prophylaxis contraindicated (wa,oh) 01/13/25 0900 pneumatic compression sleeve(s) (wa,ne) VTE Prophylaxis: VTE prophylaxis appropriate SIGNATURE: Karin Martino MD PATIENT NAME: Ambika Brown DATE: January 15, 2025 TIME: 10:48 AM [facility] 01-14-2025 Note HNO ID: [id number] Author: CELSO ROCHA DO Service: Hospital Medicine Author Type: Physician Type: Progress Notes Filed: 01/14/2025 11:51 Note Text: DEPARTMENT OF HOSPITAL MEDICINE PROGRESS NOTE SERVICE DATE: 01/14/2025 SERVICE TIME: 11:44 AM Hospital Medicine/Primary Attending: Celso Rocah DO NIGHT AND WEEKEND COVERAGE: After 7pm please page [phone] SUBJECTIVE: Patient seen examined at bedside, no new acute complaints or concerns reported, no events reported overnight. Reports some pain in the left arm where she had previous IV infiltration with amiodarone. OBJECTIVE: PHYSICAL EXAM: BP 112/74 Pulse 75 Temp (Src) 98.2 (Temporal) Resp 18 Ht 5' 7 (1.70m) Wt 336 lb 10.3 oz (152.7kg) SpO2 96% LMP 07/29/2024 BMI 52.71 kg/(m2). O2 Therapy: Room Air GENERAL: Alert, no distress, cooperative, NAD SKIN: Warm, dry intact, no open lesions, no rashes HEAD/SINUSES: Normocephalic, atraumatic, oral mucosa moist EYES: PERRLA, EOMI NECK: No jugulovenous distention, Supple, no adenopathy LUNGS: Lungs clear to auscultation, no wheezes, ronchi, or rales CARDIAC: RRR ABDOMEN: Abdomen soft, non-tender, BS normal, No masses or organomegaly EXTREMITIES: Trace edema NEURO: Follows commands MEDICATIONS: Current Facility-Administered Medications Medication Dose Route Frequency aspirin, enteric coated 81 mg tab(s) 81 mg ORAL AT BEDTIME metoprolol tartrate (short acting) 25 mg tab(s) (LOPRESSOR) 25 mg ORAL BID albuterol HFA 90 mcg/actuation 2 puff (PROVENTIL HFA, VENTOLIN HFA) 2 puff INHALATION q 4 H PRN levothyroxine 50 mcg tab(s) (SYNTHROID) 50 mcg ORAL DAILY (6 AM) aluminum-magnesium hydroxide-simethicone 200-200-20 mg/5 mL 30 mL 30 mL ORAL DAILY PRN ondansetron 4 mg tab(s) (ZOFRAN) 4 mg ORAL q 6 H PRN Or ondansetron (PF) 4 mg injection (ZOFRAN) 4 mg INTRAVENOUS q 6 H PRN acetaminophen 650 mg tab(s) (TYLENOL) 650 mg ORAL q 6 H PRN NaCl 0.9% iv flush bag 20 mL INTRAVENOUS PRN sodium chloride 0.9 % (flush) 2-10 mL (BD POSIFLUSH) 2-10 mL INTRAVENOUS DIRECTED PRN iv contrast (radiology procedure) INTRAVENOUS DIRECTED PRN DATA: Diagnostic tests reviewed for today's visit: CBC: Recent Labs 01/14/25 0423 WBC 10.84 RBC 5.00 HB 12.5 HCT 41.4 PLT 200 MCV 82.8 MCH 25.0* MPV 11.9 Coags: No results for input(s): PT, INR, APTT in the last 24 hours. BMP: Recent Labs 01/14/25 0423 NA 138 K 4.0 CHLOR 103 CO2 24 BUN 11 CREAT 0.72 GLUC 109* CMP: Recent Labs 01/14/25 0423 NA 138 K 4.0 CHLOR 103 CO2 24 BUN 11 CREAT 0.72 GLUC 109* CA 9.0 MG 1.9 ANION 11 Cardiac Enzymes: No results for input(s): CK, MB, CKMB, TROPT in the last 24 hours. Liver Function, Amylase, Lipase: No results for input(s): TPROT, ALB, ALT, AST, ALKPHOS, TBILI, AMYLASE, LIPASE, LACTATE in the last 24 hours. MG/PHOS: Recent Labs 01/14/25 0423 MG 1.9 Renal Panel: Recent Labs 01/14/25 0423 CREAT 0.72 BUN 11 GLUC 109* CA 9.0 CHLOR 103 K 4.0 CO2 24 NA 138 Heme: No results for input(s): RETICP, ABSRETIC, LD, PABLO, FE, TIBC,TRANSFERSAT in the last 24 hours. No results found for: UALBCR Assessment/Plan This is a 34 year old female with: #Pre-Syncope #Palpitations with NSVT EP following appreciate recs-plan for cardiac MRI as well as treadmill stress test # Left arm antecubital swelling/pain no erythema or warmth-noted to be from infiltrated IV at outside hospital -Recommended elevation, ice, ibuprofen -Monitor for any signs of infection #Hypertension -Home medication Norvasc 5 mg daily, lisinopril 20 mg daily, metoprolol -Continue Lopressor 25 mg twice daily -Resume additional agents pending blood pressure #Hypothyroidism Continue Synthroid 50 mcg daily Check TSH, T4 #Leukocytosis #Obesity-BMI 52 -Weight loss, lifestyle modifications VTE Prophylaxis: Hold pending EP evaluation Disposition: Home Plan of care discussed with: Provider, RN, Patient Problem List V-tach (HCC) (POA: Yes) Palpitations (POA: Yes) Obesity, Class III, BMI >= 40 (POA: Yes) Hypothyroid (POA: Yes) This note was generated using [employer] voice dictation. All reasonable efforts were made to correct dictation errors. SIGNATURE: Celso Rocha DO PATIENT NAME: Ambika Brown DATE: January 14, 2025 TIME: 11:44 AM PAGER/CONTACT #: My Pager [facility] 01-13-2025 Note HNO ID: [id number] Author: KERRY ARMANDO RN Service: Electrophysiology Author Type: Registered Nurse Type: Progress Notes Filed: 01/13/2025 15:32 Note Text: Multiple unsuccessful attempts to interrogate STJ loop recorder. Per pt device implanted , likely battery depleted. [facility] 01-13-2025 Note HNO ID: [id number] Author: RACHAEL ARANGO LSW Service: Care Management Author Type: Recoverer Type: Care Mgt Initial Assessment Filed: 01/13/2025 10:15 Note Text: CARE MANAGEMENT: ASSESSMENT AND DISCHARGE PLAN SERVICE DATE: January 13, 2025 SERVICE TIME: 10:14 AM PCP: Mega Weeks MD Primary Contact: Extended Emergency Contact Information Primary Emergency Contact: Luis Brown Mobile Relation: Spouse Secondary Emergency Contact: KristanPauline Mobile Relation: Sister Father: Ar Edmonds Mobile Admission Status: Observation Insurance Provider: O [facility] PPO Discharge Planning requested by: Per Department Practice Potential Transition Plans Home, To Be Determined Advance Directives Current Advance Directive: None Mainframe Systems Engineer Attempted to Assist with AD Completion: Yes Action: Education Provided Current Living Arrangements and Support Lives with: Spouse/significant other Type of Residence: Private Residence (House) Does the patient have to climb stairs at home?: stairs within the home Support: Family members, Spouse/significant other How do you manage to accomplish the following: Independent: Ambulation, Bathe/Shower, Dress, Meals/Meal Prep, Going to the bathroom, Medication Management, Transportation to appointments/community Current Services/Equipment Current Post-Acute Service(s): None Discharge Planning Patient Goal(s): Increase strength, Be able to go home [employer] Explained: [employer] Given: No Reason Not Given: No placements necessary Are you interested in bedside delivery of your medications? No Discharge Planning Participant(s): Patient Patient/Family Comments: v-tach Caregiver Assessment: Transport at Discharge: Transportation Arrangements: Car Needs Prior to Discharge: Needs Prior to Discharge: To Be Determined, OT/PT Evaluation, Discharge Transportation Post-Acute Discharge Plan: Home SW met with pt at bedside. Pt from home with spouse, works, drives, no DME. Pt has no SNF/HHC history. +PCP. Pt denied STEVIE/AOD/MH. Pt anticipates going home at in with spouse to transport. SIGNATURE: MARCO Ponce PATIENT NAME: Ambika Brown DATE: January 13, 2025 TIME: 10:14 AM Ext [id number] [facility] 01-13-2025 Discharge summary Note Date/Time January 12, 2025 11:15p [facility] Medical Records Department [address] [place] [id number] Discharge Summary 01/12/250 MR#: [id number] Acct: [id number] Name: AMBIKA BROWN Rep #:[id number] : 1990 34 From: Riley Haque DO PCP: Dr. Mega Weeks MD Status:DIS IN Location: [facility] [id number] Providers Date of Admission: 01/11/25 Primary Care Physician: Dr. Mega Weeks MD Consultations 01/11/25 16:25 Consult: Cardiology Routine Consulting Provider: Shayla Rios Reason for Consult: Cardiac arrhythmia EMERGENT Consult: No MD Notified: Yes Date Notified: 01/11/25 Time Notified: 16:05 Method of Notification: ED Physician Initiated Reason For Visit: CARDIAC ARRHYTHMIA Diagnosis Discharge Diagnosis (1) Arrhythmia: Status: Acute Code(s): I49.9 - Cardiac arrhythmia, unspecified Plan: Secondary to ventricular tachycardia. Discussed with Dr. Sanchez, he is concerned about VTE and spoke to Dr. Paz [facility] and patient has been accepted there. Currently waiting on transfer. In the meantime, patient has been started on amiodarone drip. Echo showed an EF of 50%. Mild global hypokinesis of the LV. Plan Chronic conditions: * HTN: continue lisinopril * hypothyroidism: levothyroxine. VTE prophylaxis: LMWH. Disposition to [facility] Medications at Discharge Home Medications levothyroxine 50 mcg tablet (Synthroid) 50 mcg PO DAILY thyroid 12/05/22 ascorbic acid (vitamin C) 500 mg tablet 500 mg PO DAILY suppliment 03/05/24 aspirin 81 mg chewable tablet 81 mg PO DAILY preventative 03/05/24 cholecalciferol (vitamin D3) 25 mcg (1,000 unit) tablet 25 mcg PO DAILY suppliment 03/05/24 gabapentin 100 mg capsule 100 mg PO DAILY PRN pain 09/17/24 lisinopril 20 mg tablet 20 mg PO BID blood pressure 09/17/24 ondansetron HCl 8 mg tablet 8 mg PO Q12H PRN nausea and vomiting 09/17/24 albuterol sulfate 90 mcg/actuation aerosol inhaler 1 inh inhalation ONCE PRN shortness of breath or wheezing 11/18/24 amlodipine 5 mg tablet (Norvasc) 5 mg PO QDAY blood pressure #90 tabs 11/18/24 metoprolol tartrate 25 mg tablet 25 mg PO BID heart #180 tabs 11/18/24 Hospital Course Operations None Procedures 2-D Echocardiogram Summary of Care Provided Minutes Spent on Discharge: 35 Hospital Course: 34-year-old female has been having long history of intermittent palpitations buthad an episode that was much more sustained. Was essentially found to be ventricular tachycardia. Patient was started on amiodarone drip. Dr. Sanchez, cardiology, reached out to the EP physician at [facility], whoagreed to accept the patient. Patient was later transferred on the to [facility] in stable condition. Weight / BMI Weight Weight: 151.8 kg Body Mass Index (BMI) 52.4 ABG / Lab / Microbiology Data 01/12/25 07:03 01/12/25 07:03 Radiography Diagnostic Testing: Radiology Impression Echocardiogram 01/11/25 16:25 Interpretation Summary Normal LV size. The left ventricular ejection fraction is 50 %. Stage 2 diastolic dysfunction. There is mild global hypokinesis of the left ventricle. Contrast injection was performed. Ordering Physician: Marlon Damon Performed By: Steve Ross RCS D/C Instructions Discharge Diet: No restrictions DC O2, CPAP, BIPAP Needs Home O2 Discharge instructions: No Meaningful Use Info Meaningful Use Meaningful Use Diagnoses (Choose all that apply): None applicable Ischemic Stroke Statin Dosing Therapy Reference: STATIN DOSE THERAPY REFERENCE: * Patients > 75 years receive moderate or high dose statin therapy. * Patients 75 years or YOUNGER should receive HIGH intensity statin dose unless contraindicated. You will be required to document reason for non-treatment if statin daily dose does not meet guidelines. HIGH DOSE STATIN THERAPY DAILY Atorvastatin > than or = to 40 mg Rosuvastatin > than or = to 20 mg Amlodipine + Atorvastatin > than or = to 2.5/40 mg Ezetimibe + Simvastatin 10/80 mg Simvastatin 80mg Discharge Plan Admission Admit Date/Time: 01/11/25 16:03 Primary Reason for Your Visit: palpitations Attending Provider: Cesar Sanchez Primary Care Provider: Mega Weeks I Consulting Providers: Shayla Rios; Marlon Damon Discharge Orders/Prescriptions Prescriptions: No Action aspirin 81 mg tablet,chewable 81 mg PO DAILY levothyroxine [Synthroid] 50 mcg tablet 50 mcg PO DAILY ascorbic acid (vitamin C) 500 mg tablet 500 mg PO DAILY cholecalciferol (vitamin D3) 25 mcg (1,000 unit) tablet 25 mcg PO DAILY albuterol sulfate 90 mcg/actuation HFA aerosol inhaler 1 inh inhalation ONCE PRN (Reason: shortness of breath or wheezing) metoprolol tartrate 25 mg tablet 25 mg PO BID Qty: 180 3RF amlodipine [Norvasc] 5 mg tablet 5 mg PO QDAY Qty: 90 3RF gabapentin 100 mg capsule 100 mg PO DAILY PRN (Reason: pain) ondansetron HCl 8 mg tablet 8 mg PO Q12H PRN (Reason: nausea and vomiting) lisinopril 20 mg tablet 20 mg PO BID Referrals / Follow Up: Mega Weeks MD [Primary Care Provider] - Disposition Disposition (needs filled in before D/C Order can be placed): Acute Care Hospital Charges/Coding Visit Charges Inpatient E&M: 83980 Disch Hosp >30min 01/13/25 1450 <Electronically signed by Riley Haque DO> Cosigner Signature (if applicable): CC: Dr. Mega Weeks MD; Dr. Riley Haque DO~ Signed [facility] Work Phone: 1(990) 515-416005-05-2025 Discharge summary [facility] Medical Records Department [address] [place] [address] Discharge Summary 01/12/25 2230 MR#: [id number] Acct: [id number] Name: AMBIKA BROWN Rep #:[id number] : 1990 34 From: Riley Haque DO PCP: Dr. Mega Weeks MD Status:DIS IN Location: [place] [address] Providers Date of Admission: 01/11/25 Primary Care Physician: Dr. Mega Weeks MD Consultations 01/11/25 16:25 Consult: Cardiology Routine Consulting Provider: Shayla Rios Reason for Consult: Cardiac arrhythmia EMERGENT Consult: No MD Notified: Yes Date Notified: 01/11/25 Time Notified: 16:05 Method of Notification: ED Physician Initiated Reason For Visit: CARDIAC ARRHYTHMIA Diagnosis Discharge Diagnosis (1) Arrhythmia: Status: Acute Code(s): I49.9 - Cardiac arrhythmia, unspecified Plan: Secondary to ventricular tachycardia. Discussed with Dr. Sanchez, he is concerned about VTE and spoke to Dr. Paz [facility] and patienthas been accepted there. Currently waiting on transfer. In the meantime, patient has been started on amiodarone drip. Echo showed an EF of 50%. Mild global hypokinesis of the LV. Plan Chronic conditions: * HTN: continue lisinopril * hypothyroidism: levothyroxine. VTE prophylaxis: LMWH. Disposition to [facility] Medications at Discharge Home Medications levothyroxine 50 mcg tablet (Synthroid) 50 mcg PO DAILY thyroid 12/05/22 ascorbic acid (vitamin C) 500 mg tablet 500 mg PO DAILY suppliment 03/05/24 aspirin 81 mg chewable tablet 81 mg PO DAILY preventative 03/05/24 cholecalciferol (vitamin D3) 25 mcg (1,000 unit) tablet 25 mcg PO DAILY suppliment 03/05/24 gabapentin 100 mg capsule 100 mg PO DAILY PRN pain 09/17/24 lisinopril 20 mg tablet 20 mg PO BID blood pressure 09/17/24 ondansetron HCl 8 mg tablet 8 mg PO Q12H PRN nausea and vomiting 09/17/24 albuterol sulfate 90 mcg/actuation aerosol inhaler 1 inh inhalation ONCE PRN shortness of breath orwheezing 11/18/24 amlodipine 5 mg tablet (Norvasc) 5 mg PO QDAY blood pressure #90 tabs 11/18/24 metoprolol tartrate 25 mg tablet 25 mg PO BID heart #180 tabs 11/18/24 Hospital Course Operations None Procedures 2-D Echocardiogram Summary of Care Provided Minutes Spent on Discharge: 35 Hospital Course: 34-year-old female has been having long history of intermittent palpitations buthad an episode thatwas much more sustained. Was essentially found to be ventricular tachycardia. Patient was started on amiodarone drip. Dr. Sanchez, cardiology, reached out to the EP physician at [facility], whoagreed to accept the patient. Patient was later transferred on the fifth to [facility] in stable condition. Weight / BMI Weight Weight: 151.8 kg Body Mass Index (BMI) 52.4 ABG / Lab / Microbiology Data 01/12/25 07:03 01/12/25 07:03 Radiography Diagnostic Testing: Radiology Impression Echocardiogram 01/11/25 16:25 Interpretation Summary Normal LV size. The left ventricular ejection fraction is 50 %. Stage 2 diastolic dysfunction. There is mild global hypokinesis of the left ventricle. Contrast injection was performed. Ordering Physician: Marlon Damon Performed By: Steve Ross RCS D/C Instructions Discharge Diet: No restrictions DC O2, CPAP, BIPAP Needs Home O2 Discharge instructions: No Meaningful Use Info Meaningful Use Meaningful Use Diagnoses (Choose all that apply): None applicable Ischemic Stroke Statin Dosing Therapy Reference: STATIN DOSE THERAPY REFERENCE: * Patients > 75 years receive moderate or high dose statin therapy. * Patients 75 years or YOUNGER should receive HIGH intensity statin dose unless contraindicated. You will be required to document reason for non-treatment if statin daily dose does not meet guidelines. HIGH DOSE STATIN THERAPY DAILY Atorvastatin > than or = to 40 mg Rosuvastatin > than or = to 20 mg Amlodipine + Atorvastatin > than or = to 2.5/40 mg Ezetimibe + Simvastatin 10/80 mg Simvastatin 80mg Discharge Plan Admission Admit Date/Time: 01/11/25 16:03 Primary Reason for Your Visit: palpitations Attending Provider: Cesar Sanchez Primary Care Provider: Mega Weeks I Consulting Providers: Shayla Rios; Marlon Damon Discharge Orders/Prescriptions Prescriptions: No Action aspirin 81 mg tablet,chewable 81 mg PO DAILY levothyroxine [Synthroid] 50 mcg tablet 50 mcg PO DAILY ascorbic acid (vitamin C) 500 mg tablet 500 mg PO DAILY cholecalciferol (vitamin D3) 25 mcg (1,000 unit) tablet 25 mcg PO DAILY albuterol sulfate 90 mcg/actuation HFA aerosol inhaler 1 inh inhalation ONCE PRN (Reason: shortness of breath or wheezing) metoprolol tartrate 25 mg tablet 25 mg PO BID Qty: 180 3RF amlodipine [Norvasc] 5 mg tablet 5 mg PO QDAY Qty: 90 3RF gabapentin 100 mg capsule 100 mg PO DAILY PRN (Reason: pain) ondansetron HCl 8 mg tablet 8 mg PO Q12H PRN (Reason: nausea and vomiting) lisinopril 20 mg tablet 20 mg PO BID Referrals / Follow Up: Mega Weeks MD [Primary Care Provider] - Disposition Disposition (needs filled in before D/C Order can be placed): Acute Care Hospital Charges/Coding Visit Charges Inpatient E&M: 13243 Disch Hosp >30min 01/13/25 1450 Cosigner Signature (if applicable): CC: Dr. Mega Weeks MD; Dr. Riley Haque DO~ Signed [facility]05-05-2025 [facility] Medical Records Department [address] [place] [address] Discharge Summary 01/12/25 2230 MR#: [id number] Acct: [id number] Name: AMBIKA BROWN Rep #: [id number] : 1990 34 From: Riley Haque DO PCP: Dr. Mega Weeks MD Status:DIS IN Location: [facility] [id number] Providers Date of Admission: 01/11/25 Primary Care Physician: Dr. Mega Weeks MD Consultations 01/11/25 16:25 Consult: Cardiology Routine Consulting Provider: Shayla Rios Reason for Consult: Cardiac arrhythmia EMERGENT Consult: No MD Notified: Yes Date Notified: 01/11/25 Time Notified: 16:05 Method of Notification: ED Physician Initiated Reason For Visit: CARDIAC ARRHYTHMIA Diagnosis Discharge Diagnosis (1) Arrhythmia: Status: Acute Code(s): I49.9 - Cardiac arrhythmia, unspecified Plan: Secondary to ventricular tachycardia. Discussed with Dr. Sanchez, he is concerned about VTE and spoke to Dr. Rock at [facility] and patient has been accepted there. Currently waiting on transfer. In the meantime, patient has been started on amiodarone drip. Echo showed an EF of 50%. Mild global hypokinesis of the LV. Plan Chronic conditions: * HTN: continue lisinopril * hypothyroidism: levothyroxine. VTE prophylaxis: LMWH. Disposition to [facility] Medications at Discharge Home Medications levothyroxine 50 mcg tablet (Synthroid) 50 mcg PO DAILY thyroid 12/05/22 ascorbic acid (vitamin C) 500 mg tablet 500 mg PO DAILY suppliment 03/05/24 aspirin 81 mg chewable tablet 81 mg PO DAILY preventative 03/05/24 cholecalciferol (vitamin D3) 25 mcg (1,000 unit) tablet 25 mcg PO DAILY suppliment 03/05/24 gabapentin 100 mg capsule 100 mg PO DAILY PRN pain 09/17/24 lisinopril 20 mg tablet 20 mg PO BID blood pressure 09/17/24 ondansetron HCl 8 mg tablet 8 mg PO Q12H PRN nausea and vomiting 09/17/24 albuterol sulfate 90 mcg/actuation aerosol inhaler 1 inh inhalation ONCE PRN shortness of breath or wheezing 11/18/24 amlodipine 5 mg tablet (Norvasc) 5 mg PO QDAY blood pressure #90 tabs 11/18/24 metoprolol tartrate 25 mg tablet 25 mg PO BID heart #180 tabs 11/18/24 Hospital Course Operations None Procedures 2-D Echocardiogram Summary of Care Provided Minutes Spent on Discharge: 35 Hospital Course: 34-year-old female has been having long history of intermittent palpitations but had an episode that was much more sustained. Was essentially found to be ventricular tachycardia. Patient was started on amiodarone drip. Dr. Sanchez, cardiology, reached out to the EP physician at [facility], who agreed to accept the patient. Patient was later transferred on the fifth to [facility] in stable condition. Weight / BMI Weight Weight: 151.8 kg Body Mass Index (BMI) 52.4 ABG / Lab / Microbiology Data 01/12/25 07:03 01/12/25 07:03 Radiography Diagnostic Testing: Radiology Impression Echocardiogram 01/11/25 16:25 Interpretation Summary Normal LV size. The left ventricular ejection fraction is 50 %. Stage 2 diastolic dysfunction. There is mild global hypokinesis of the left ventricle. Contrast injection was performed. Ordering Physician: Marlon Damon Performed By: Steve Ross RCS D/C Instructions Discharge Diet: No restrictions DC O2, CPAP, BIPAP Needs Home O2 Discharge instructions: No Meaningful Use Info Meaningful Use Meaningful Use Diagnoses (Choose all that apply): None applicable Ischemic Stroke Statin Dosing Therapy Reference: STATIN DOSE THERAPY REFERENCE: * Patients > 75 years receive moderate or high dose statin therapy. * Patients 75 years or YOUNGER should receive HIGH intensity statin dose unless contraindicated. You will be required to document reason for non-treatment if statin daily dose does not meet guidelines. HIGH DOSE STATIN THERAPY DAILY Atorvastatin > than or = to 40 mg Rosuvastatin > than or = to 20 mg Amlodipine + Atorvastatin > than or = to 2.5/40 mg Ezetimibe + Simvastatin 10/80 mg Simvastatin 80mg Discharge Plan Admission Admit Date/Time: 01/11/25 16:03 Primary Reason for Your Visit: palpitations Attending Provider: Cesar Sanchez Primary Care Provider: Mega Weeks I Consulting Providers: Shayla Rios; Marlon Damon Discharge Orders/Prescriptions Prescriptions: No Action aspirin 81 mg tablet,chewable 81 mg PO DAILY levothyroxine [Synthroid] 50 mcg tablet 50 mcg PO DAILY ascorbic acid (vitamin C) 500 mg tablet 500 mg PO DAILY cholecalciferol (vitamin D3) 25 mcg (1,000 unit) tablet 25 mcg PO DAILY albuterol sulfate 9 (more content not included)...[facility] 01-12-2025 Progress note Author Riley Haque [facility] Note Date/Time January 12, 2025 3:45pm [facility] Medical Records Department [address] [place] [address] Progress Note - Hospitalist 01/12/25 0929 MR#: [id number] Acct: [id number] Name: AMBIKA BROWN Rep #:[id number] : 1990 34 From: Riley Haque DO PCP: Dr. Mega Weeks MD Status:ADM IN Location: [place] [address] Reason for Visit Reason for Visit: Diagnoses Supraventricular tachycardia (01/11/25) Ventricular tachycardia (01/11/25) Palpitations (01/11/25) Syncope and collapse (01/11/25) Subjective Subjective Feeling okay at this time. No further palpitation Objective Data Objective Data Vital Signs: Vital Signs Temp Pulse Resp BP Pulse Ox O2 Del Method O2 Flow Rate 36.6 C 75 70 H 123/83 H 96 Room Air 2 01/12/25 04:00 01/12/25 08:00 01/12/25 08:07 01/12/25 08:00 01/12/25 08:00 01/12/25 08:00 01/11/25 15:02 Oxygen Flow Rate (L/min) 2 Oxygen Delivery Method Room Air Weight: 151.8 kg Body Mass Index (BMI) 52.4 Intake & Output: Intake and Output for Last 24 Hours 01/10/25 01/11/25 01/12/25 23:59 23:59 23:59 Intake Total 1462.41 / 1479.11 152.25 / 152.25 Balance 1462.41 / 1479.11 152.25 / 152.25 Lab / Micro Data 01/12/25 07:03 01/12/25 07:03 Labs: Laboratory Results - last 24 hr 01/11/25 14:05: WBC 13.1 H, RBC 5.30, Hgb 13.5, Hct 41.2, MCV 77.7 L, MCH 25.5 L, MCHC 32.8, RDW Std Deviation 43.7, RDW Coeff of Remigio 15.4 H, Plt Count 262, MPV11.2, Immature Gran % (Auto) 0.300, Neut % (Auto) 68.5, Lymph % (Auto) 23.2, Piute % (Auto) 5.5, Eos % (Auto) 2.1, Baso % (Auto) 0.4, Absolute Neuts (auto) 9.0 H, Absolute Lymphs (auto) 3.05, Nucleated RBC % 0, Sodium 137, Potassium 3.6, Chloride 103, Carbon Dioxide 21.6, Anion Gap 13, BUN 13, Creatinine 0.76, Estim Creat Clear Calc 162.75, Est GFR (MDRD) Non-Af 107, BUN/Creatinine Ratio 16.6, Glucose 155 H, Calcium 8.9, Total Bilirubin 0.31, AST 25, ALT 25, AlkalinePhosphatase 114 H, Troponin T High Sens < 6, NT pro BNP II < 36, Total Protein 7.7, Albumin 4.0, Globulin 3.7, Albumin/Globulin Ratio 1.1, TSH 1.620, Free T4 1.00, Free T3 pg/dL 3.0 01/11/25 15:24: Urine Color Straw, Urine Clarity Clear, Urine pH 6.0, Ur Specific [place] 1.010, Urine Protein 15 H, Urine Glucose (UA) Normal, Urine Ketones Negative, Urine Occult Blood 10 H, Urine Nitrite Negative, Urine Bilirubin Negative, Urine Urobilinogen Normal, Ur Leukocyte Esterase 25 H, UrineRBC 0-5 SEEN, Urine WBC 5- 10 SEEN, Ur Squamous Epith Cells 0-5 SEEN, Urine Bacteria 2+, Urine Mucus 0 SEEN, Urine Opiates Screen NEGATIVE, U Buprenorphine Qual NEGATIVE, Ur Oxycodone Screen NEGATIVE, Urine Methadone Screen NEGATIVE, Urine Fentanyl Screen NEGATIVE, Ur Barbiturates Screen NEGATIVE, Ur Phencyclidine Scrn NEGATIVE, Ur Amphetamines Screen NEGATIVE, U Benzodiazepines Scrn NEGATIVE, Urine Cocaine Screen NEGATIVE, U Cannabinoids Screen NEGATIVE 01/11/25 16:08: Phosphorus 2.9, Troponin T Hi Sens 2 Hr < 6 01/11/25 18:03: Troponin T Hi Sens 4Hr 6 01/12/25 07:03: WBC 8.8, RBC 4.65, Hgb 11.7 L, Hct 37.0, MCV 79.6 L, MCH 25.2 L,MCHC 31.6 L, RDW Std Deviation 44.6 H, RDW Coeff of Remigio 15.5 H, Plt Count 204, MPV 12.1 H, Immature Gran % (Auto) 0.200, Neut % (Auto) 63.5, Lymph % (Auto) 26.3, Piute % (Auto) 6.5, Eos % (Auto) 3.3, Baso % (Auto) 0.2, Absolute Neuts (auto) 5.6, Absolute Lymphs (auto) 2.31, Nucleated RBC % 0, Sodium 137, Potassium 4.0, Chloride 107, Carbon Dioxide 20.5 L, Anion Gap 10, BUN 8, Creatinine 0.58 L, Estim Creat Clear Calc 212.74, Est GFR (MDRD) Non-Af 122, BUN/Creatinine Ratio 13.7, Glucose 117 H, Calcium 8.4 Radiography Diagnostic Testing: Radiology Impression Chest X-Ray 01/11/25 15:14 IMPRESSION: No Acute Findings. Reading Location: [facility] Physical Exam Const alert and no apparent distress Constitutional Narrative: Lying in bed. Nontoxic. Afebrile. Neck no lymphadenopathy Resp normal respiratory effort and no retractions Neuro Sensorium / Orientation: awake and alert Psych affect normal Assessment & Plan Assessment/Plan (1) Arrhythmia: PLAN: Secondary to ventricular tachycardia. Discussed with Dr. Sanchez, he is concerned about VTE and spoke to Dr. Paz [facility] and patient has been accepted there. Currently waiting on transfer. In the meantime, patient has been started on amiodarone drip. Echo ordered on the fourth and not yet performed. PLAN: Plan Chronic conditions: * HTN: continue lisinopril * hypothyroidism: levothyroxine. VTE prophylaxis: LMWH. Disposition to [facility] pending bed availability. Charges/Coding Visit Charges Inpatient E&M: 45580 Subs Hosp L2 01/12/25 8044 <Electronically signed by Riley Haque DO> Cosigner Signature (if applicable): CC: ~ Signed [facility] Work Phone: 1(879) 640-664105-05-2025 Progress note [facility] Medical Records Department [address] [place] [address] Progress Note - Hospitalist 01/12/2529 MR#: [id number] Acct: [id number] Name: AMBIKA BROWN Rep #:[id number] : 1990 34 From: Riley Haque DO PCP: Dr. Mega Weeks MD Status:ADM IN Location: [place] [address] Reason for Visit Reason for Visit: Diagnoses Supraventricular tachycardia (01/11/25) Ventricular tachycardia (01/11/25) Palpitations (01/11/25) Syncope and collapse (01/11/25) Subjective Subjective Feeling okay at this time. No further palpitation Objective Data Objective Data Vital Signs: Vital Signs Temp Pulse Resp BP Pulse Ox O2 Del Method O2 Flow Rate 36.6 C 75 70 H 123/83 H 96 Room Air 2 01/12/25 04:00 01/12/25 08:00 01/12/25 08:07 01/12/25 08:00 01/12/25 08:00 01/12/25 08:00 01/11/25 15:02 Oxygen Flow Rate (L/min) 2 Oxygen Delivery Method Room Air Weight: 151.8 kg Body Mass Index (BMI) 52.4 Intake & Output: Intake and Output for Last 24 Hours 01/10/25 01/11/25 01/12/25 23:59 23:59 23:59 Intake Total 1462.41 / 1479.11 152.25 / 152.25 Balance 1462.41 / 1479.11 152.25 / 152.25 Lab / Micro Data 01/12/25 07:03 01/12/25 07:03 Labs: Laboratory Results - last 24 hr 01/11/25 14:05: WBC 13.1 H, RBC 5.30, Hgb 13.5, Hct 41.2, MCV 77.7 L, MCH 25.5 L, MCHC 32.8, RDW Std Deviation 43.7, RDW Coeff of Remigio 15.4 H, Plt Count 262, MPV11.2, Immature Gran % (Auto) 0.300, Neut % (Auto) 68.5, Lymph % (Auto) 23.2, Piute % (Auto) 5.5, Eos % (Auto) 2.1, Baso % (Auto) 0.4, Absolute Neuts (auto) 9.0 H, Absolute Lymphs (auto) 3.05, Nucleated RBC % 0, Sodium 137, Potassium 3.6, Chloride 103, Carbon Dioxide 21.6, Anion Gap 13, BUN 13, Creatinine 0.76, Estim Creat Clear Calc 162.75, Est GFR (MDRD) Non-Af 107, BUN/Creatinine Ratio 16.6, Glucose 155 H, Calcium 8.9, Total Bilirubin0.31, AST 25, ALT 25, AlkalinePhosphatase 114 H, Troponin T High Sens < 6, NT pro BNP II < 36, Total Protein 7.7, Albumin 4.0, Globulin 3.7, Albumin/Globulin Ratio 1.1, TSH 1.620, Free T4 1.00,Free T3 pg/dL 3.0 01/11/25 15:24: Urine Color Straw, Urine Clarity Clear, Urine pH 6.0, Ur Specific [place] 1.010, Urine Protein 15 H, Urine Glucose (UA) Normal, Urine Ketones Negative, Urine Occult Blood 10 H, Urine Nitrite Negative, Urine Bilirubin Negative, Urine Urobilinogen Normal, Ur Leukocyte Esterase 25 H, Ur ineRBC 0-5 SEEN, Urine WBC 5-10 SEEN, Ur Squamous Epith Cells 0-5 SEEN, Urine Bacteria 2+, Urine Mucus 0 SEEN, Urine Opiates Screen NEGATIVE, U Buprenorphine Qual NEGATIVE, Ur Oxycodone Screen NEGATIVE, Urine Methadone Screen NEGATIVE, Urine Fentanyl Screen NEGATIVE, Ur Barbiturates Screen NEGATIVE, Ur Phencyclidine Scrn NEGATIVE, Ur Amphetamines Screen NEGATIVE, U Benzodiazepines Scrn NEGATIVE, Urine Cocaine Screen NEGATIVE, U Cannabinoids Screen NEGATIVE 01/11/25 16:08: Phosphorus 2.9, Troponin T Hi Sens 2 Hr < 6 01/11/25 18:03: Troponin T Hi Sens 4Hr 6 01/12/25 07:03: WBC 8.8, RBC 4.65, Hgb 11.7 L, Hct 37.0, MCV 79.6 L, MCH 25.2 L,MCHC 31.6 L, RDW Std Deviation 44.6 H, RDW Coeff of Remigio 15.5 H, Plt Count 204, MPV 12.1 H, Immature Gran % (Auto) 0.200, Neut % (Auto) 63.5, Lymph % (Auto) 26.3, Piute % (Auto) 6.5, Eos % (Auto) 3.3, Baso % (Auto) 0.2, Absolute Neuts (auto) 5.6, Absolute Lymphs (auto) 2.31, Nucleated RBC % 0, Sodium 137, Potassium 4.0,Chloride 107, Carbon Dioxide 20.5 L, Anion Gap 10, BUN 8, Creatinine 0.58 L, Estim Creat Clear Xlcg295.74, Est GFR (MDRD) Non-Af 122, BUN/Creatinine Ratio 13.7, Glucose 117 H, Calcium 8.4 Radiography Diagnostic Testing: Radiology Impression Chest X-Ray 01/11/25 15:14 IMPRESSION: No Acute Findings. Reading Location: [facility] Physical Exam Const alert and no apparent distress Constitutional Narrative: Lying in bed. Nontoxic. Afebrile. Neck no lymphadenopathy Resp normal respiratory effort and no retractions Neuro Sensorium / Orientation: awake and alert Psych affect normal Assessment & Plan Assessment/Plan (1) Arrhythmia: PLAN: Secondary to ventricular tachycardia. Discussed with Dr. Sanchez, he is concerned about VTE and spoke to Dr. Paz [facility] and patienthas been accepted there. Currently waiting on transfer. In the meantime, patient has been started on amiodarone drip. Echo ordered on the fourth and not yet performed. PLAN: Plan Chronic conditions: * HTN: continue lisinopril * hypothyroidism: levothyroxine. VTE prophylaxis: LMWH. Disposition to [facility] pending bed availability. Charges/Coding Visit Charges Inpatient E&M: 36156 Subs Hosp L2 01/12/25 1545 Cosigner Signature (if applicable): CC: ~ Signed [facility]05-05-2025 Consult note Author Cesar Sanchez [facility] Note Date/Time January 12, 2025 10:20a m [facility] Medical Records Department [address] [place] [address] Consultation - Cardiology 01/12/25 0958 MR#: [id number] Acct: [id number] Name: AMBIKA BROWN #:[id number] : 1990 34 From: Cesar Sanchez MD PCP: Dr. Mega Weeks MD Status:ADM IN Location: [facility] [id number]- [id number] Assessment & Plan Assessment/Plan (1) Ventricular tachycardia: PLAN: Patient presented to emergency department 01/21/2025 with progressive multiple episodes of near syncope over the last 48 to 72 hours. While in the emergency department she had the same symptoms while a twelve-lead ECG was beingperformed in short 6 beat runs of ventricular tachycardia were captured. This exactly matched her symptoms she had been having over the last 72 hours. The patient does have a prior history of SVT and has been previously evaluated by Dr. Rock at [facility]. Echo is pending at this time. (2) Near syncope: PLAN: Patient did not actually pass out completely but felt like she was nearly passing out. She has had prior history of SVT but this was definitely differentthan her routine near syncope that she is learned to manage at home. Will attempt to get her transferred to the [facility] for further evaluation. Currently she is stable on IV amiodarone on telemetry. PLAN: Plan 1. Will continue IV amiodarone for the time being. 2. Will arrange for transfer to [facility] in the care of 3. Echo is pending at this time. 4. I did discuss the plans with the nursing staff as well as the hospitalist team. HPI Consult Data Date of Consult: 01/12/25 HPI Narrative Reason for Consultation: Ventricular tachycardia with near syncope. HPI Narrative: AMBIKA BROWN, is a 34 F who presents with a 2-3-day history of increasing tachypalpitations with near syncope. Yesterday prior to admission she nearly passed out 3 times trying to take a shower. She then was driving and developed near syncope and was able to navigate her car to the hospital. Upon arrival thepatient had recurring symptoms while her ECG was being done which documented multiple 6 beat runs of ventricular tachycardia. There was also a mention from the emergency department there may have been atrial fibrillation noted. However cannot find an ECG or telemetry strip consistent with atrial fibs. The patient was placed on IV amiodarone in the emergency department and since the loading dose of Amio she has had no recurrence of the ventricular tachycardia. Patient does have a history of hypothyroidism on replacement therapy. Thyroid studies in the emergency department within normal limits. Urine screen for illicit medications was negative. I do not find a urine or serum test. Patient did have a negative urine test September 2024. The patient has a history of nonsustained supraventricular tachycardia in the past with a negative EP study at [facility] with Dr. Arredondo. The patient also had a loop recorder at 1 point in time which is no longer functional. The patient's ECG from January 11 at 1400 hrs. showed 2 sequential 6 beat runs of ventricular tachycardia during the timing of the twelve-lead ECG. She was in sinus tach at that point in time and subsequent ECG showed normal sinus rhythm with nonspecific T wave changes. The patient is currently resting comfortably in the bed. [facility] Medical History Hypothyroidism Pancreatitis Cholecystectomy planned Implantable loop recorder present SVT (supraventricular tachycardia) History of lupus anticoagulant disorder History of asthma Insulin resistance Migraines Home Medications ?Medication ?Instructions ?Recorded ?Last Taken ?Type levothyroxine 50 mcg tablet 50 mcg PO DAILY thyroid 04/10/23 History (Synthroid) ascorbic acid (vitamin C) 500 mg 500 mg PO DAILY suppl iment 03/05/24 Unknown History tablet aspirin 81 mg chewable tablet 81 mg PO DAILY preventat hilary 03/05/24 Unknown History cholecalciferol (vitamin D3) 25 25 mcg PO DAILY suppli ment 03/05/24 Unknown History mcg (1,000 unit) tablet gabapentin 100 mg capsule 100 mg PO DAILY PRN pain 05/04 Unknown History lisinopril 20 mg tablet 20 mg PO BID blood pressure 09/17/24 Unknown History ondansetron HCl 8 mg tablet 8 mg PO Q12H PRN nausea an d 09/17/24 Unknown History vomiting albuterol sulfate 90 mcg/actuation 1 inh inhalation ON CE PRN 11/18/24 Unknown History aerosol inhaler shortness of breath or wheez ing amlodipine 5 mg tablet (Norvasc) 5 mg PO QDAY blood pr essure #90 11/18/24 Unknown Rx tabs metoprolol tartrate 25 mg tablet 25 mg PO BID heart #1 80 tabs 11/18/24 Unknown Rx Allergy/AdvReac Type Severity Reaction Status Date / Time diphenhydramine (From Allergy Mild Chest Verified 01/11/25 13:55 Benadryl) tightness prochlorperazine (From Allergy Other Verified 01/11/25 13:55 Compazine) Family History Mother Cancer Thyroid disorder Father Heart disease Early 50s Surgical History History of section History of electrophysiologic study (02/13/22) History of tonsillectomy History of cholecystectomy Social History household members: spouse housing: house Smoking Status: Never smoker alcohol intake: never substance use type: does not use caffeine: Yes Type: coffee Number of servings: 2 ROS Constitutional Constitutional: Reports as per HPI Eyes Eyes: Reports systems reviewed and no addt'l complaints, except as documented ENT HEENT: Reports systems reviewed and no addt'l complaints, except as documented Cardiovascular Cardiovascular: Reports as per HPI Respiratory/Chest Respiratory/Chest: Reports systems reviewed and no addt'l complaints, except as documented Gastrointestinal Gastrointestinal: Reports systems reviewed and no addt'l complaints, except as documented Genitourinary Genitourinary: Reports systems reviewed and no addt'l complaints, except as documented Musculoskeletal Musculoskeletal: Reports systems reviewed and no addt'l complaints, except as documented Integumentary Integumentary: Reports systems reviewed and no addt'l complaints, except as documented Neurologic Neurologic: Reports as per HPI Psychiatric Psychiatric: Reports systems reviewed and no addt'l complaints, except as documented Endocrine Endocrinology: Reports as per HPI Hematologic/Lymphatic Hematologic/Lymphatic: Reports systems reviewed and no addt'l complaints, exceptas documented Allergic/Immunologic Allergic/Immunologic: Reports systems reviewed and no addt'l complaints, except as documented Physical Exam Narrative Morbidly obese to BMI 52 Const alert and oriented x3 HEENT normocephalic Eyes EOMs intact bilaterally Neck no JVD and no carotid bruits Chest Chest Narrative: Increased AP diameter due to body habitus Resp normal respiratory effort and clear to auscultation bilaterally Cardio regular rate, regular rhythm, S1 normal heart sound, S2 normal heart sound, no murmurs, no rub and no gallops Cardio Narrative: Distant heart tones GI GI Narrative: Morbidly obese Extremity no pedal edema Psych mental status grossly normal Risk Stratification Risk Stratification Applicable: No Charges/Coding Visit Charges Inpatient E&M: 13741 Subs Hosp L3 Objective Data Vital Signs: Vital Signs Temp Pulse Resp BP Pulse Ox O2 Del Method O2 Flow Rate 98 F 75 70 H 123/83 H 96 Room Air 2 01/12/25 04:00 01/12/25 09:33 01/12/25 08:07 01/12/25 08:00 01/12/25 08:00 01/12/25 08:00 01/11/25 15:02 Oxygen Flow Rate (L/min) 2 Oxygen Delivery Method Room Air Weight: 334 lb 10.587 oz Body Mass Index (BMI) 52.4 Intake & Output: Intake and Output for Last 24 Hours 01/10/25 01/11/25 01/12/25 23:59 23:59 23:59 Intake Total 1462.41 / 1479.11 152.25 / 152.25 Balance 1462.41 / 1479.11 152.25 / 152.25 Lab / Micro Data Attestation: I reviewed the patient's lab results. 01/12/25 07:03 01/12/25 07:03 Labs: Laboratory Results - last 24 hr 01/11/25 14:05: WBC 13.1 H, RBC 5.30, Hgb 13.5, Hct 41.2, MCV 77.7 L, MCH 25.5 L, MCHC 32.8, RDW Std Deviation 43.7, RDW Coeff of Remigio 15.4 H, Plt Count 262, MPV11.2, Immature Gran % (Auto) 0.300, Neut % (Auto) 68.5, Lymph % (Auto) 23.2, Piute % (Auto) 5.5, Eos % (Auto) 2.1, Baso % (Auto) 0.4, Absolute Neuts (auto) 9.0 H, Absolute Lymphs (auto) 3.05, Nucleated RBC % 0, Sodium 137, Potassium 3.6, Chloride 103, Carbon Dioxide 21.6, Anion Gap 13, BUN 13, Creatinine 0.76, Estim Creat Clear Calc 162.75, Est GFR (MDRD) Non-Af 107, BUN/Creatinine Ratio 16.6, Glucose 155 H, Calcium 8.9, Total Bilirubin 0.31, AST 25, ALT 25, AlkalinePhosphatase 114 H, Troponin T High Sens < 6, NT pro BNP II < 36, Total Protein 7.7, Albumin 4.0, Globulin 3.7, Albumin/Globulin Ratio 1.1, TSH 1.620, Free T4 1.00, Free T3 pg/dL 3.0 01/11/25 15:24: Urine Color Straw, Urine Clarity Clear, Urine pH 6.0, Ur Specific [place] 1.010, Urine Protein 15 H, Urine Glucose (UA) Normal, Urine Ketones Negative, Urine Occult Blood 10 H, Urine Nitrite Negative, Urine Bilirubin Negative, Urine Urobilinogen Normal, Ur Leukocyte Esterase 25 H, UrineRBC 0-5 SEEN, Urine WBC 5- 10 SEEN, Ur Squamous Epith Cells 0-5 SEEN, Urine Bacteria 2+, Urine Mucus 0 SEEN, Urine Opiates Screen NEGATIVE, U Buprenorphine Qual NEGATIVE, Ur Oxycodone Screen NEGATIVE, Urine Methadone Screen NEGATIVE, Urine Fentanyl Screen NEGATIVE, Ur Barbiturates Screen NEGATIVE, Ur Phencyclidine Scrn NEGATIVE, Ur Amphetamines Screen NEGATIVE, U Benzodiazepines Scrn NEGATIVE, Urine Cocaine Screen NEGATIVE, U Cannabinoids Screen NEGATIVE 01/11/25 16:08: Phosphorus 2.9, Troponin T Hi Sens 2 Hr < 6 01/11/25 18:03: Troponin T Hi Sens 4Hr 6 01/12/25 07:03: WBC 8.8, RBC 4.65, Hgb 11.7 L, Hct 37.0, MCV 79.6 L, MCH 25.2 L,MCHC 31.6 L, RDW Std Deviation 44.6 H, RDW Coeff of Remigio 15.5 H, Plt Count 204, MPV 12.1 H, Immature Gran % (Auto) 0.200, Neut % (Auto) 63.5, Lymph % (Auto) 26.3, Piute % (Auto) 6.5, Eos % (Auto) 3.3, Baso % (Auto) 0.2, Absolute Neuts (auto) 5.6, Absolute Lymphs (auto) 2.31, Nucleated RBC % 0, Sodium 137, Potassium 4.0, Chloride 107, Carbon Dioxide 20.5 L, Anion Gap 10, BUN 8, Creatinine 0.58 L, Estim Creat Clear Calc 212.74, Est GFR (MDRD) Non-Af 122, BUN/Creatinine Ratio 13.7, Glucose 117 H, Calcium 8.4 Cardiology Labs/Tests 01/11/25 14:05: WBC 13.1 H, RBC 5.30, Hgb 13.5, Hct 41.2, MCV 77.7 L, MCH 25.5 L, MCHC 32.8, Plt Count 262, MPV 11.2, Immature Gran % (Auto) 0.300, Neut % (Auto) 68.5, Lymph % (Auto) 23.2, Piute % (Auto) 5.5, Eos % (Auto) 2.1, Baso % (Auto) 0.4, Absolute Neuts (auto) 9.0 H, Nucleated RBC % 0, Sodium 137, Potassium 3.6, Chloride 103, Carbon Dioxide 21.6, Anion Gap 13, BUN 13, Creatinine 0.76, Est GFR (MDRD) Non- Af 107, BUN/Creatinine Ratio 16.6, Glucose 155 H, Calcium 8.9, Total Bilirubin 0.31 01/11/25 15:24: Urine Color Straw, Urine Clarity Clear, Urine pH 6.0, Ur Specific [place] 1.010, Urine Protein 15 H, Urine Glucose (UA) Normal, Urine Ketones Negative, Urine Occult Blood 10 H, Urine Nitrite Negative, Urine Bilirubin Negative, Urine Urobilinogen Normal, Ur Leukocyte Esterase 25 H, UrineRBC 0-5 SEEN, Urine WBC 5- 10 SEEN 01/11/25 16:08: Phosphorus 2.9 01/12/25 07:03: WBC 8.8, RBC 4.65, Hgb 11.7 L, Hct 37.0, MCV 79.6 L, MCH 25.2 L,MCHC 31.6 L, Plt Count 204, MPV 12.1 H, Immature Gran % (Auto) 0.200, Neut % (Auto) 63.5, Lymph % (Auto) 26.3, Piute % (Auto) 6.5, Eos % (Auto) 3.3, Baso % (Auto) 0.2, Absolute Neuts (auto) 5.6, Nucleated RBC % 0, Sodium 137, Potassium 4.0, Chloride 107, Carbon Dioxide 20.5 L, Anion Gap 10, BUN 8, Creatinine 0.58 L, Est GFR (MDRD) Non-Af 122, BUN/Creatinine Ratio 13.7, Glucose 117 H, Calcium 8.4 Rhythm: EKG: ECHO: Stress Test: Cardiac Cath: PCI: CT Surgery: Holter monitor: EPS: PPM: CXR: Chest CT Scan: Radiography Diagnostic Testing: Radiology Impression Chest X-Ray 01/11/25 15:14 IMPRESSION: No Acute Findings. Reading Location: [id number] 01/12/25 1020 <Electronically signed by Cesar Sanchez MD> Cosigner Signature (if applicable): CC: Dr. Mega Weeks MD~ Signed [facility] Work Phone: [phone] 955-722405-05-2025 Consult note [facility] Medical Records Department [address] [place] [address] Consultation - Cardiology 01/12/25 0958 MR#: [id number] Acct: [id number] Name: AMBIKA BROWN Rep #:[id number] : 1990 34 From: Cesar Sanchez MD PCP: Dr. Mega Weeks MD Status:ADM IN Location: [place] [address] Assessment & Plan Assessment/Plan (1) Ventricular tachycardia: PLAN: Patient presented to emergency department 01/21/2025 with progressive multiple episodes of near syncope over the last 48 to 72 hours. While in the emergency department she had the same symptoms while a twelve-lead ECG was beingperformed in short 6 beat runs of ventricular tachycardia were captured. This exactly matched her symptoms she had been having over the last 72 hours. The patient does have a prior history of SVT and has been previously evaluated by Dr. Rock [facility]. Echo is pending at this time. (2) Near syncope: PLAN: Patient did not actually pass out completely but felt like she was nearly passing out. She has had prior history of SVT but this was definitely differentthan her routine near syncope that she is learned to manage at home. Will attempt to get her transferred to the [facility] for further evaluation. Currently she is stable on IV amiodarone on telemetry. PLAN: Plan 1. Will continue IV amiodarone for the time being. 2. Will arrange for transfer to [facility] in the care of 3. Echo is pending at this time. 4. I did discuss the plans with the nursing staff as well as the hospitalist team. HPI Consult Data Date of Consult: 01/12/25 HPI Narrative Reason for Consultation: Ventricular tachycardia with near syncope. HPI Narrative: AMBIKA BROWN, is a 34 F who presents with a 2-3-day history of increasing tachypalpitations with near syncope. Yesterday prior to admission she nearly passed out 3 times trying to take a shower. She then was driving and developed near syncope and was able to navigate her car to the hospital. Upon arrival thepatient had recurring symptoms while her ECG was being done which documented multiple 6 beat runs of ventricular tachycardia. There was also a mention from the emergency department there may have been atrial fibrillation noted. However cannot find an ECG or telemetry strip consistent with atrial fibs. The patient was placedon IV amiodarone in the emergency department and since the loading dose of Amio she has had no recur rence of the ventricular tachycardia. Patient does have a history of hypothyroidism on replacement therapy. Thyroid studies in the emergency department within normal limits. Urine screen for illicit medications was negative. I do not find a urine or serum test. Patient did have a negativeurine test September 2024. The patient has a history of nonsustained supraventricular tachycardia in the past with a negative EP study at [facility] with Dr. Arredondo. The patient also had a loop recorder at 1 point in time which is no longer functional. The patient's ECG from January 11 at 1400 hrs. showed 2 sequential 6 beat runs of ventricular tachycardia during the timing of the twelve-lead ECG. She was insinus tach at that point in time and subsequent ECG showed normal sinus rhythm with nonspecific T wave changes. The patient is currently resting comfortably in the bed. [facility] Medical History Hypothyroidism Pancreatitis Cholecystectomy planned Implantable loop recorder present SVT (supraventricular tachycardia) History of lupus anticoagulant disorder History of asthma Insulin resistance Migraines Home Medications ?Medication ?Instructions ?Recorded ?Last Taken ?Type levothyroxine 50 mcg tablet 50 mcg PO DAILY thyroid 04/10/23 History (Synthroid) ascorbic acid (vitamin C) 500 mg 500 mg PO DAILY suppl iment 03/05/24 Unknown History tablet aspirin 81 mg chewable tablet 81 mg PO DAILY preventat hilary 03/05/24 Unknown History cholecalciferol (vitamin D3) 25 25 mcg PO DAILY suppli ment 03/05/24 Unknown History mcg (1,000 unit) tablet gabapentin 100 mg capsule 100 mg PO DAILY PRN pain 05/04 Unknown History lisinopril 20 mg tablet 20 mg PO BID blood pressure 09/17/24 Unknown History ondansetron HCl 8 mg tablet 8 mg PO Q12H PRN nausea an d 09/17/24 Unknown History vomiting albuterol sulfate 90 mcg/actuation 1 inh inhalation ON CE PRN 11/18/24 Unknown History aerosol inhaler shortness of breath or wheez ing amlodipine 5 mg tablet (Norvasc) 5 mg PO QDAY blood pr essure #90 11/18/24 Unknown Rx tabs metoprolol tartrate 25 mg tablet 25 mg PO BID heart #1 80 tabs 11/18/24 Unknown Rx Allergy/AdvReac Type Severity Reaction Status Date / Time diphenhydramine (From Allergy Mild Chest Verified 01/11/25 13:55 Benadryl) tightness prochlorperazine (From Allergy Other Verified 01/11/25 13:55 Compazine) Family History Mother Cancer Thyroid disorder Father Heart disease Early 50s Surgical History History of section History of electrophysiologic study (02/13/22) History of tonsillectomy History of cholecystectomy Social History household members: spouse housing: house Smoking Status: Never smoker alcohol intake: never substance use type: does not use caffeine: Yes Type: coffee Number of servings: 2 ROS Constitutional Constitutional: Reports as per HPI Eyes Eyes: Reports systems reviewed and no addt'l complaints, except as documented ENT HEENT: Reports systems reviewed and no addt'l complaints, except as documented Cardiovascular Cardiovascular: Reports as per HPI Respiratory/Chest Respiratory/Chest: Reports systems reviewed and no addt'l complaints, except as documented Gastrointestinal Gastrointestinal: Reports systems reviewed and no addt'l complaints, except as documented Genitourinary Genitourinary: Reports systems reviewed and no addt'l complaints, except as documented Musculoskeletal Musculoskeletal: Reports systems reviewed and no addt'l complaints, except as documented Integumentary Integumentary: Reports systems reviewed and no addt'l complaints, except as documented Neurologic Neurologic: Reports as per HPI Psychiatric Psychiatric: Reports systems reviewed and no addt'l complaints, except as documented Endocrine Endocrinology: Reports as per HPI Hematologic/Lymphatic Hematologic/Lymphatic: Reports systems reviewed and no addt'l complaints, exceptas documented Allergic/Immunologic Allergic/Immunologic: Reports systems reviewed and no addt'l complaints, except as documented Physical Exam Narrative Morbidly obese to BMI 52 Const alert and oriented x3 HEENT normocephalic Eyes EOMs intact bilaterally Neck no JVD and no carotid bruits Chest Chest Narrative: Increased AP diameter due to body habitus Resp normal respiratory effort and clear to auscultation bilaterally Cardio regular rate, regular rhythm, S1 normal heart sound, S2 normal heart sound, no murmurs, no rub and no gallops Cardio Narrative: Distant heart tones GI GI Narrative: Morbidly obese Extremity no pedal edema Psych mental status grossly normal Risk Stratification Risk Stratification Applicable: No Charges/Coding Visit Charges Inpatient E&M: 39803 Subs Hosp L3 Objective Data Vital Signs: Vital Signs Temp Pulse Resp BP Pulse Ox O2 Del Method O2 Flow Rate 98 F 75 70 H 123/83 H 96 Room Air 2 01/12/25 04:00 01/12/25 09:33 01/12/25 08:07 01/12/25 08:00 01/12/25 08:00 01/12/25 08:00 01/11/25 15:02 Oxygen Flow Rate (L/min) 2 Oxygen Delivery Method Room Air Weight: 334 lb 10.587 oz Body Mass Index (BMI) 52.4 Intake & Output: Intake and Output for Last 24 Hours 01/10/25 01/11/25 01/12/25 23:59 23:59 23:59 Intake Total 1462.41 / 1479.11 152.25 / 152.25 Balance 1462.41 / 1479.11 152.25 / 152.25 Lab / Micro Data Attestation: I reviewed the patient's lab results. 01/12/25 07:03 01/12/25 07:03 Labs: Laboratory Results - last 24 hr 01/11/25 14:05: WBC 13.1 H, RBC 5.30, Hgb 13.5, Hct 41.2, MCV 77.7 L, MCH 25.5 L, MCHC 32.8, RDW Std Deviation 43.7, RDW Coeff of Remigio 15.4 H, Plt Count 262, MPV11.2, Immature Gran % (Auto) 0.300, Neut % (Auto) 68.5, Lymph % (Auto) 23.2, [place] % (Auto) 5.5, Eos % (Auto) 2.1, Baso % (Auto) 0.4, Absolute Neuts (auto) 9.0 H, Absolute Lymphs (auto) 3.05, Nucleated RBC % 0, Sodium 137, Potassium 3.6, Chloride 103, Carbon Dioxide 21.6, Anion Gap 13, BUN 13, Creatinine 0.76, Estim Creat Clear Calc 162.75, Est GFR (MDRD) Non-Af 107, BUN/Creatinine Ratio 16.6, Glucose 155 H, Calcium 8.9, Total Bilirubin0.31, AST 25, ALT 25, AlkalinePhosphatase 114 H, Troponin T High Sens < 6, NT pro BNP II < 36, Total Protein 7.7, Albumin 4.0, Globulin 3.7, Albumin/Globulin Ratio 1.1, TSH 1.620, Free T4 1.00,Free T3 pg/dL 3.0 01/11/25 15:24: Urine Color Straw, Urine Clarity Clear, Urine pH 6.0, Ur Specific [place] 1.010, Urine Protein 15 H, Urine Glucose (UA) Normal, Urine Ketones Negative, Urine Occult Blood 10 H, Urine Nitrite Negative, Urine Bilirubin Negative, Urine Urobilinogen Normal, Ur Leukocyte Esterase 25 H, Ur ineRBC 0-5 SEEN, Urine WBC 5-10 SEEN, Ur Squamous Epith Cells 0-5 SEEN, Urine Bacteria 2+, Urine Mucus 0 SEEN, Urine Opiates Screen NEGATIVE, U Buprenorphine Qual NEGATIVE, Ur Oxycodone Screen NEGATIVE, Urine Methadone Screen NEGATIVE, Urine Fentanyl Screen NEGATIVE, Ur Barbiturates Screen NEGATIVE, Ur Phencyclidine Scrn NEGATIVE, Ur Amphetamines Screen NEGATIVE, U Benzodiazepines Scrn NEGATIVE, Urine Cocaine Screen NEGATIVE, U Cannabinoids Screen NEGATIVE 01/11/25 16:08: Phosphorus 2.9, Troponin T Hi Sens 2 Hr < 6 01/11/25 18:03: Troponin T Hi Sens 4Hr 6 01/12/25 07:03: WBC 8.8, RBC 4.65, Hgb 11.7 L, Hct 37.0, MCV 79.6 L, MCH 25.2 L,MCHC 31.6 L, RDW Std Deviation 44.6 H, RDW Coeff of Remigio 15.5 H, Plt Count 204, MPV 12.1 H, Immature Gran % (Auto) 0.200, Neut % (Auto) 63.5, Lymph % (Auto) 26.3, Piute % (Auto) 6.5, Eos % (Auto) 3.3, Baso % (Auto) 0.2, Absolute Neuts (auto) 5.6, Absolute Lymphs (auto) 2.31, Nucleated RBC % 0, Sodium 137, Potassium 4.0,Chloride 107, Carbon Dioxide 20.5 L, Anion Gap 10, BUN 8, Creatinine 0.58 L, Estim Creat Clear Ogpi206.74, Est GFR (MDRD) Non-Af 122, BUN/Creatinine Ratio 13.7, Glucose 117 H, Calcium 8.4 Cardiology Labs/Tests 01/11/25 14:05: WBC 13.1 H, RBC 5.30, Hgb 13.5, Hct 41.2, MCV 77.7 L, MCH 25.5 L, MCHC 32.8, Plt Count 262, MPV 11.2, Immature Gran % (Auto) 0.300, Neut % (Auto) 68.5, Lymph % (Auto) 23.2, Piute % (Auto) 5.5, Eos % (Auto) 2.1, Baso % (Auto) 0.4, Absolute Neuts (auto) 9.0 H, Nucleated RBC % 0, [id number], Potassium 3.6, Chloride 103, Carbon Dioxide 21.6, Anion Gap 13, BUN 13, Creatinine 0.76, Est GFR (MDRD) Non-Af 107, BUN/Creatinine Ratio 16.6, Glucose 155 H, Calcium 8.9, Total Bilirubin 0.31 01/11/25 15:24: Urine Color Straw, Urine Clarity Clear, Urine pH 6.0, Ur Specific [place] 1.010, Urine Protein 15 H, Urine Glucose (UA) Normal, Urine Ketones Negative, Urine Occult Blood 10 H, Urine Nitrite Negative, Urine Bilirubin Negative, Urine Urobilinogen Normal, Ur Leukocyte Esterase 25 H, Ur ineRBC 0-5 SEEN, Urine WBC 5-10 SEEN 01/11/25 16:08: Phosphorus 2.9 01/12/25 07:03: WBC 8.8, RBC 4.65, Hgb 11.7 L, Hct 37.0, MCV 79.6 L, MCH 25.2 L,MCHC 31.6 L, Plt Count 204, MPV 12.1 H, Immature Gran % (Auto) 0.200, Neut % (Auto) 63.5, Lymph % (Auto) 26.3, Piute % (Auto) 6.5, Eos % (Auto) 3.3, Baso % (Auto) 0.2, Absolute Neuts (auto) 5.6, Nucleated RBC % 0, [id number], Potassium 4.0, Chloride 107, Carbon Dioxide 20.5 L, Anion Gap 10, BUN 8, Creatinine 0.58 L, Est GFR (MDRD) Non-Af 122, BUN/Creatinine Ratio 13.7, Glucose 117 H, Calcium 8.4 Rhythm: EKG: ECHO: Stress Test: Cardiac Cath: PCI: CT Surgery: Holter monitor: EPS: PPM: CXR: Chest CT Scan: Radiography Diagnostic Testing: Radiology Impression Chest X-Ray 01/11/25 15:14 IMPRESSION: No Acute Findings. Reading Location: [facility] 01/12/25 1020 Cosign Signature (if applicable): CC: Dr. Mega Weeks MD~ Signed [facility]05-04-2025 Consult note Author Shayla Rios [facility] Note Date/Time January 11, 2025 5:09pm [facility] Medical Records Department [address] [place] [address] Consultation - Cardiology 01/11/25 1658 MR#: [id number] Acct: [id number] Name: AMBIKA BROWN Rep #:[id number] : 1990 34 From: Shayla Rios MD PCP: Dr. Mega Weeks MD Status:ADM IN Location: [facility] [id number] Assessment & Plan Assessment/Plan (1) Near syncope: (2) Palpitations: (3) SVT (supraventricular tachycardia): PLAN: 34-year-old patient Presented to ED at [facility] complaining of symptoms of chest pain and palpitation. She had symptoms of mild dizziness with lightheadedness. Evidently patient has longstanding history of arrhythmia and has been seen and followed by EP at [facility] , with the patient evaluated previously with EP study which is negative with no significant arrhythmia noted. She also has echocardiographic evaluation which showed LV function within normaland has been on treatment with metoprolol and lisinopril in addition to low- doseaspirin. Other medical problem include history of hypertension prior history of COVID-19,bronchial asthma. Cardiac exam essentially normal Cardiac care plan; Patient did share a monitor from her watch which showed irregular heart rhythm possible atrial fibrillation. Also she has implantable loop recorder which has been more than 4 years To explant and possible reimplant the loop recorder for monitoring of cardiac rhythm. Patient has recurrent episodes of nonsustained V. tach Check electrolytes magnesium potassium Started on amiodarone and remains in sinus with infrequent PVC Review of the current lab cardiac biomarker with high sensitive troponins and BNP within normal. Will reevaluate by echocardiogram Patient has been seen and followed here by primary promotions producer at [facility] Dr. Conrad Will continue to monitor and follow-up in progressive care unit HPI Consult Data Date of Consult: 01/11/25 HPI Narrative Reason for Consultation: Palpitation/recurrent episodes of nonsustained V. tach HPI Narrative: AMBIKA BROWN, is a 34 F who presents [facility] Medical History Hypothyroidism Pancreatitis Cholecystectomy planned Implantable loop recorder present SVT (supraventricular tachycardia) History of lupus anticoagulant disorder History of asthma Insulin resistance Migraines Home Medications ?Medication ?Instructions ?Recorded ?Last Taken ?Type levothyroxine 50 mcg tablet 50 mcg PO DAILY thyroid 04/10/23 History (Synthroid) ascorbic acid (vitamin C) 500 mg 500 mg PO DAILY suppl iment 03/05/24 Unknown History tablet aspirin 81 mg chewable tablet 81 mg PO DAILY preventat hilary 03/05/24 Unknown History cholecalciferol (vitamin D3) 25 25 mcg PO DAILY suppli ment 03/05/24 Unknown History mcg (1,000 unit) tablet gabapentin 100 mg capsule 100 mg PO DAILY PRN pain 05/04 Unknown History lisinopril 20 mg tablet 20 mg PO BID blood pressure 09/17/24 Unknown History ondansetron HCl 8 mg tablet 8 mg PO Q12H PRN nausea an d 09/17/24 Unknown History vomiting albuterol sulfate 90 mcg/actuation 1 inh inhalation ON CE PRN 11/18/24 Unknown History aerosol inhaler shortness of breath or wheez ing amlodipine 5 mg tablet (Norvasc) 5 mg PO QDAY blood pr essure #90 11/18/24 Unknown Rx tabs metoprolol tartrate 25 mg tablet 25 mg PO BID heart #1 80 tabs 11/18/24 Unknown Rx Allergy/AdvReac Type Severity Reaction Status Date / Time diphenhydramine (From Allergy Mild Chest Verified 01/11/25 13:55 Benadryl) tightness prochlorperazine (From Allergy Other Verified 01/11/25 13:55 Compazine) Family History Mother Cancer Thyroid disorder Father Heart disease Early 50s Surgical History History of section History of electrophysiologic study (02/13/22) History of tonsillectomy History of cholecystectomy Social History (Updated 01/11/25 @ 16:38 by Mago Hilton) household members: spouse housing: house Smoking Status: Never smoker alcohol intake: never substance use type: does not use caffeine: Yes Type: coffee Number of servings: 2 Physical Exam Cardio Cardio Narrative: Patient seen and evaluated in the ED Complaining of palpitation with 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 tach Cardiac exam S1-S2 regular No systolic or diastolic murmur. Chest exam clear to auscultation bilateral. Examination lower extremity no lower extremity edema noted. Risk Stratification Risk Stratification Applicable: No Objective Data Vital Signs: Vital Signs Temp Pulse Resp BP Pulse Ox O2 Del Method O2 Flow Rate 98.0 F 83 15 145/96 H 100 Nasal Cannula 2 01/11/25 15:51 01/11/25 15:51 01/11/25 15:51 01/11/25 15:51 01/11/25 15:51 01/11/25 15:02 01/11/25 15:02 Oxygen Flow Rate (L/min) 2 Oxygen Delivery Method Nasal Cannula Weight: 334 lb 10.587 oz Body Mass Index (BMI) 52.4 Intake & Output: Intake and Output for Last 24 Hours 01/09/25 01/10/25 01/11/25 23:59 23:59 23:59 Intake Total 1104 / 1104 Balance 1104 / 1104 Lab / Micro Data 01/11/25 14:05 01/11/25 14:05 Labs: Laboratory Results - last 24 hr 01/11/25 14:05: WBC 13.1 H, RBC 5.30, Hgb 13.5, Hct 41.2, MCV 77.7 L, MCH 25.5 L, MCHC 32.8, RDW Std Deviation 43.7, RDW Coeff of Remigio 15.4 H, Plt Count 262, MPV11.2, Immature Gran % (Auto) 0.300, Neut % (Auto) 68.5, Lymph % (Auto) 23.2, Piute % (Auto) 5.5, Eos % (Auto) 2.1, Baso % (Auto) 0.4, Absolute Neuts (auto) 9.0 H, Absolute Lymphs (auto) 3.05, Nucleated RBC % 0, Sodium 137, Potassium 3.6, Chloride 103, Carbon Dioxide 21.6, Anion Gap 13, BUN 13, Creatinine 0.76, Estim Creat Clear Calc 162.75, Est GFR (MDRD) Non-Af 107, BUN/Creatinine Ratio 16.6, Glucose 155 H, Calcium 8.9, Total Bilirubin 0.31, AST 25, ALT 25, AlkalinePhosphatase 114 H, Troponin T High Sens < 6, NT pro BNP II < 36, Total Protein 7.7, Albumin 4.0, Globulin 3.7, Albumin/Globulin Ratio 1.1, TSH 1.620, Free T4 1.00, Free T3 pg/dL 3.0 01/11/25 15:24: Urine Color Straw, Urine Clarity Clear, Urine pH 6.0, Ur Specific [place] 1.010, Urine Protein 15 H, Urine Glucose (UA) Normal, Urine Ketones Negative, Urine Occult Blood 10 H, Urine Nitrite Negative, Urine Bilirubin Negative, Urine Urobilinogen Normal, Ur Leukocyte Esterase 25 H, UrineRBC 0-5 SEEN, Urine WBC 5- 10 SEEN, Ur Squamous Epith Cells 0-5 SEEN, Urine Bacteria 2+, Urine Mucus 0 SEEN, Urine Opiates Screen NEGATIVE, U Buprenorphine Qual NEGATIVE, Ur Oxycodone Screen NEGATIVE, Urine Methadone Screen NEGATIVE, Urine Fentanyl Screen NEGATIVE, Ur Barbiturates Screen NEGATIVE, Ur Phencyclidine Scrn NEGATIVE, Ur Amphetamines Screen NEGATIVE, U Benzodiazepines Scrn NEGATIVE, Urine Cocaine Screen NEGATIVE, U Cannabinoids Screen NEGATIVE 01/11/25 16:08: Troponin T Hi Sens 2 Hr < 6 Cardiology Labs/Tests 01/11/25 14:05: WBC 13.1 H, RBC 5.30, Hgb 13.5, Hct 41.2, MCV 77.7 L, MCH 25.5 L, MCHC 32.8, Plt Count 262, MPV 11.2, Immature Gran % (Auto) 0.300, Neut % (Auto) 68.5, Lymph % (Auto) 23.2, Piute % (Auto) 5.5, Eos % (Auto) 2.1, Baso % (Auto) 0.4, Absolute Neuts (auto) 9.0 H, Nucleated RBC % 0, Sodium 137, Potassium 3.6, Chloride 103, Carbon Dioxide 21.6, Anion Gap 13, BUN 13, Creatinine 0.76, Est GFR (MDRD) Non- Af 107, BUN/Creatinine Ratio 16.6, Glucose 155 H, Calcium 8.9, Total Bilirubin 0.31 01/11/25 15:24: Urine Color Straw, Urine Clarity Clear, Urine pH 6.0, Ur Specific [place] 1.010, Urine Protein 15 H, Urine Glucose (UA) Normal, Urine Ketones Negative, Urine Occult Blood 10 H, Urine Nitrite Negative, Urine Bilirubin Negative, Urine Urobilinogen Normal, Ur Leukocyte Esterase 25 H, UrineRBC 0-5 SEEN, Urine WBC 5- 10 SEEN Rhythm: EKG: ECHO: Stress Test: Cardiac Cath: PCI: CT Surgery: Holter monitor: EPS: PPM: CXR: Chest CT Scan: Radiography Diagnostic Testing: Radiology Impression Chest X-Ray 01/11/25 15:14 IMPRESSION: No Acute Findings. Reading Location: [id number] 01/11/25 6343 <Electronically signed by Shayla Rios MD> Cosigner Signature (if applicable): CC: Dr. Mega Weeks MD~ Signed [facility] Work Phone: 1(695) 274-649805-04-2025 History and physical note Author Marlon Damon [facility] Note Date/Time January 11, 2025 4:24pm [facility] Medical Records Department [address] [place] [address] H&P Exam - Hospitalist 01/11/25 1607 MR#: [id number] Acct: [id number] Name: AMBIKA BROWN Rep #:[id number] : 1990 34 From: Marlon gonzalez MD PCP: Dr. Mega Weeks MD Status:ADM IN Location: [facility] [id number] HPI - General General Date of Admission: 01/11/25 HPI Narrative AMBIKA BROWN, is a 34 F who presents to the hospital with chest pain and palpitations. No syncope but some lightheadedness and dizziness. She says it has been going on since 2019 after she had COVID. Since that time she has had multiple evaluations with no definitive diagnosis she was evaluated by electrophysiology who could not induce an arrhythmia but and she had a loop recorder implanted which demonstrated 2 episodes of possible A-fib versus sinus rhythm with ectopy. She is also had episodes of SVT. Over the last couple of days she has been having increased palpitations and she does wear an Apple Watchwhich demonstrated what looks like episodes of A-fib however in the ER today shedemonstrated episodes of nonsustained V. tach. Troponins were unremarkable she does have a leukocytosis but unclear source, urine analysis is pending. She denies any travel out of the area, no unregulated supplement use, no chemical exposures, and no drug use. TSH is normal and cardiology was consulted in the ER with their recommendation of an amiodarone drip and an echocardiogram. She had an echo in 2020 with an EF of 50% and mild global hypokinesis of the left ventricle with no evidence of diastolic dysfunction. She was and gave to her son in 2022 which seems to have worsen her arrhythmic episodes. [facility] Medical History Hypothyroidism Pancreatitis Cholecystectomy planned Implantable loop recorder present SVT (supraventricular tachycardia) History of lupus anticoagulant disorder History of asthma Insulin resistance Migraines Home Medications ?Medication ?Instructions ?Recorded ?Last Taken ?Type levothyroxine 50 mcg tablet 50 mcg PO DAILY 12/05/22 0 04/10/23 History (Synthroid) ascorbic acid (vitamin C) 500 mg 500 mg PO DAILY 03/05 Unknown History tablet aspirin 81 mg chewable tablet 81 mg PO DAILY 03/05/24 Unknown History cholecalciferol (vitamin D3) 25 25 mcg PO DAILY Unknown History mcg (1,000 unit) tablet gabapentin 100 mg capsule 100 mg PO DAILY PRN pain 05/04 Unknown History lisinopril 20 mg tablet 20 mg PO BID 09/17/24 Unknow n History ondansetron HCl 8 mg tablet 8 mg PO Q12H PRN nausea an d 09/17/24 Unknown History vomiting albuterol sulfate 90 mcg/actuation 1 inh inhalation ON CE PRN 11/18/24 Unknown History aerosol inhaler shortness of breath or wheez ing amlodipine 5 mg tablet (Norvasc) 5 mg PO QDAY #90 tabs 11/18/24 Unknown Rx metoprolol tartrate 25 mg tablet 25 mg PO BID #180 tab s 11/18/24 Unknown Rx Allergy/AdvReac Type Severity Reaction Status Date / Time diphenhydramine (From Allergy Mild Chest Verified 01/11/25 13:55 Benadryl) tightness prochlorperazine (From Allergy Other Verified 01/11/25 13:55 Compazine) Family History Mother Cancer Thyroid disorder Father Heart disease Early 50s Surgical History History of section History of electrophysiologic study (02/13/22) History of tonsillectomy History of cholecystectomy Social History household members: spouse Smoking Status: Never smoker alcohol intake: never substance use type: does not use caffeine: Yes Type: coffee Number of servings: 2 ROS Constitutional Constitutional: Denies chills, fatigue, fever(s) or malaise Eyes Eyes: Denies blurry vision ENT HEENT: Denies headache(s) or nasal discharge Cardiovascular Cardiovascular: Reports chest pain, lightheadedness and palpitations; Denies dyspnea on exertion or syncope Respiratory/Chest Respiratory/Chest: Denies cough, shortness of breath at rest or shortness of breath with exertion Gastrointestinal Gastrointestinal: Denies constipation, diarrhea, nausea or vomiting Genitourinary Genitourinary: Denies dysuria Neurologic Neurologic: Denies focal weakness, numbness or tremor(s) Psychiatric Psychiatric: Denies anxiety or depression Vital Signs Vital Signs Vital Signs: 01/11/25 13:55 01/11/25 14:04 01/11/25 14:13 Temperature 98.2 F Temperature Source Oral Pulse Rate 126 H 119 H 101 H Respiratory Rate 26 H 22 H 20 H Blood Pressure 184/98 H 160/69 H 149/87 H Blood Pressure Mean 126 99 107 Pulse Ox 99 100 98 Oxygen Delivery Method Room Air Room Air Room Air Oxygen Flow Rate (L/min) 01/11/25 15:02 01/11/25 15:51 Temperature 98.0 F Temperature Source Pulse Rate 109 H 83 Respiratory Rate 22 H 15 Blood Pressure 164/95 H 145/96 H Blood Pressure Mean 118 112 Pulse Ox 99 100 Oxygen Delivery Method Nasal Cannula Oxygen Flow Rate (L/min) 2 Weight Weight: 335 lb 15.752 oz Body Mass Index (BMI) 52.6 Physical Exam Narrative General: Alert, Oriented x3, Cooperative, No apparent distress HEENT: Atraumatic, PERRLA, EOMI, Normocephalic Oral: Dry mucosa Neck: Supple, No JVD Lungs: Clear to auscultation, Normal air movement, No rhonchi, No wheeze, No rales Cardiovascular: Regular rate, Regular Rhythm, Normal S1, Normal S2, No murmurs Abdomen: Soft, Non Tender, Non-Distended, No Hepato-splenomegaly Extremities: No edema, Capillary Refill Less than 3 Seconds Skin: No rashes, No breakdown Neurological: No focal neurological deficits, moves all extremities Psych/Mental Status: Normal Affect, Appropriate Results Lab / Micro Data 01/11/25 14:05 01/11/25 14:05 Labs: Laboratory Results - last 24 hr 01/11/25 14:05: WBC 13.1 H, RBC 5.30, Hgb 13.5, Hct 41.2, MCV 77.7 L, MCH 25.5 L, MCHC 32.8, RDW Std Deviation 43.7, RDW Coeff of Remigio 15.4 H, Plt Count 262, MPV11.2, Immature Gran % (Auto) 0.300, Neut % (Auto) 68.5, Lymph % (Auto) 23.2, Piute % (Auto) 5.5, Eos % (Auto) 2.1, Baso % (Auto) 0.4, Absolute Neuts (auto) 9.0 H, Absolute Lymphs (auto) 3.05, Nucleated RBC % 0, Sodium 137, Potassium 3.6, Chloride 103, Carbon Dioxide 21.6, Anion Gap 13, BUN 13, Creatinine 0.76, Estim Creat Clear Calc 162.75, Est GFR (MDRD) Non-Af 107, BUN/Creatinine Ratio 16.6, Glucose 155 H, Calcium 8.9, Total Bilirubin 0.31, AST 25, ALT 25, AlkalinePhosphatase 114 H, Troponin T High Sens < 6, NT pro BNP II < 36, Total Protein 7.7, Albumin 4.0, Globulin 3.7, Albumin/Globulin Ratio 1.1, TSH 1.620, Free T4 1.00, Free T3 pg/dL 3.0 01/11/25 15:24: Urine Opiates Screen NEGATIVE, U Buprenorphine Qual NEGATIVE, UrOxycodone Screen NEGATIVE, Urine Methadone Screen NEGATIVE, Urine Fentanyl Screen NEGATIVE, Ur Barbiturates Screen NEGATIVE, Ur Phencyclidine Scrn NEGATIVE, Ur Amphetamines Screen NEGATIVE, U Benzodiazepines Scrn NEGATIVE, Urine Cocaine Screen NEGATIVE, U Cannabinoids Screen NEGATIVE Imaging Radiology Impression Chest X-Ray 01/11/25 15:14 IMPRESSION: No Acute Findings. Reading Location: [id number] Assessment & Plan Assessment/Plan (1) Ventricular tachycardia: (2) Palpitations: PLAN: Plan 1. Chest pain and palpitations/essential HTN ? Unclear as to what her underlying rhythm is, the rhythm strip from her watch almost looks like fine V-fib, in the ER she had nonsustained V. tach and on her loop recorder she had A-fib versus sinus rhythm with ectopy ? Will repeat echocardiogram and continue with amiodarone drip ? Will consult cardiology, initial troponin was unremarkable, 2-hour troponin still pending. BNP is normal ? Will resume her home blood pressure medications including her other rate control medications ? Unclear if this is related to COVID with a worsening since her surgery, in 2020 she did have mild global hypokinesis of the left ventricle on her echo which could be worsened with her ? Unclear as to the etiology of her leukocytosis, UA is pending 2. Hypothyroidism ? TSH is normal ? Continue with Synthroid DVT: Lovenox 75 minutes was spent on direct patient care, including documentation as well as chart review and collaboration with colleagues Charges/Coding Visit Charges Inpatient E&M: 54163 Init Hosp L3 01/11/25 1624 <Electronically signed by Marlon Damon MD> Cosigner Signature (if applicable): CC: Dr. Mega Weeks MD; Dr. Marlon Damon MD~ Signed [facility] Work Phone: [phone]) 494-800305-04-2025 Discharge summary Author [facility] Note Date/Time January 11, 2025 4:12pm [facility] Medical Records Department [address] [place] [address] Emergency Department Summary 01/11/25 MR#: [id number] Acct: [id number] Name: AMBIKA BROWN Rep #:[id number] : 1990 34 From: Silvano Newberry PCP: Dr. Mega Weeks MD Status:ADM IN Location: [address] History of Present Illness Chief Complaint: Palpitations PFSH PFSH Medical History Hypothyroidism Pancreatitis Cholecystectomy planned Implantable loop recorder present SVT (supraventricular tachycardia) History of lupus anticoagulant disorder History of asthma Insulin resistance Migraines Home Medications ?Medication ?Instructions ?Recorded ?Last Taken ?Type levothyroxine 50 mcg tablet 50 mcg PO DAILY 12/05/22 0 04/10/23 History (Synthroid) ascorbic acid (vitamin C) 500 mg 500 mg PO DAILY 03/05 Unknown History tablet aspirin 81 mg chewable tablet 81 mg PO DAILY 03/05/24 Unknown History cholecalciferol (vitamin D3) 25 25 mcg PO DAILY Unknown History mcg (1,000 unit) tablet gabapentin 100 mg capsule 100 mg PO DAILY PRN pain 05/04 Unknown History lisinopril 20 mg tablet 20 mg PO BID 09/17/24 Unknow n History ondansetron HCl 8 mg tablet 8 mg PO Q12H PRN nausea an d 09/17/24 Unknown History vomiting albuterol sulfate 90 mcg/actuation 1 inh inhalation ON CE PRN 11/18/24 Unknown History aerosol inhaler shortness of breath or wheez ing amlodipine 5 mg tablet (Norvasc) 5 mg PO QDAY #90 tabs 11/18/24 Unknown Rx metoprolol tartrate 25 mg tablet 25 mg PO BID #180 tab s 11/18/24 Unknown Rx Allergy/AdvReac Type Severity Reaction Status Date / Time diphenhydramine (From Allergy Mild Chest Verified 01/11/25 13:55 Benadryl) tightness prochlorperazine (From Allergy Other Verified 01/11/25 13:55 Compazine) Family History Mother Cancer Thyroid disorder Father Heart disease Early 50s Surgical History History of section History of electrophysiologic study (02/13/22) History of tonsillectomy History of cholecystectomy Social History household members: spouse Smoking Status: Never smoker alcohol intake: never substance use type: does not use caffeine: Yes Type: coffee Number of servings: 2 EXAM Physical Exam Const Vital Signs: 01/11/25 13:55 01/11/25 14:04 Temperature 98.2 F Temperature Source Oral Pulse Rate 126 H 119 H Respiratory Rate 26 H 22 H Blood Pressure 184/98 H 160/69 H Blood Pressure Mean 126 99 Pulse Ox 99 100 Oxygen Delivery Method Room Air Room Air MDM MDM MDM Narrative Medical decision making narrative: HISTORY OF PRESENT ILLNESS: Chief complaint: Palpitations 34-year-old female history of SVT, ventricular tachycardia, obesity, hypothyroidism, hypertension presents with acute onset of chest pain and palpitation occurred prior to arrival. No syncope. No bleeding diathesis noted. No recent illnesses. The patient denies recent surgery in the last 4 weeks or immobilization in the last 3 days, denies previous diagnosis of DVT or PE, hemoptysis, unilateral leg swelling or malignancy with treatment the last 6 months or palliative. No estrogen use noted. Patient denies sudden onset of pain, no tearing sensation, no migratory symptoms, no new numbness, weakness or loss of sensation. Patient denies family history or personal history of Connective tissue disorders (Marfan's Syndrome, Lorne Danlos etc). REVIEW OF SYSTEMS: Pertinent positives: Chest pain, palpitation Pertinent negatives: As per HPI PHYSICAL EXAM: Nursing triage notes reviewed, Vital signs reviewed Constitutional: please see [facility] HENT: MMM Eyes: Pupils equal round and reactive to light, Extraocular muscles intact Neck: No stridor, no JVD, full neck ROM Lungs: Clear to auscultation, No wheezing or rales. No increased work of breathing, no conversational dyspnea, no accessory muscle use, no nasal flaring. No respiratory distress noted Heart: Regular rate and rhythm, No murmurs, No rubs and No gallops, 2+ distal pulses (radial, femoral, posterior tibial) in all extremities Abdomen: Soft, there is no tenderness, rigidity, rebound or guarding, no obviousperitoneal signs, no palpable pulsatile abdominal masses, no auscultated abdominal bruit : No CVAT Extremities: No edema Neuro: No new focal neurological deficits, cranial nerves II through XII intact,5/5 strength in all present extremities. Intact sensation to light touch in all present extremities, 2+ reflexes bilateral patella tendons. Skin: No rash or lesions noted MEDICAL DECISION MAKING: Chief Complaint: please see HPI External records reviewed: Reviewed prior cardiovascular studies Factors affecting care: As per HPI Social determinants of health: denies drug use History obtained from others: none Consults: 1. Cardiology (Dr. Rios)?discussed initial management for NSVT, chest pain. Dr. Headley recommended electrolyte replacement and starting amiodarone drip and admit to the ICU for further evaluation. 2. Internal medicine (Dr. Damon) -discussed admitting to the PCU. Discussedthe patient's prior evaluations. Discussed the cardiology recommendation to admit to ICU. I am physician note he was comfortable with her in PCU. [facility] Narrative: Patient was initially hypertensive with blood pressure 184/98, tachycardic with a heart rate of 126 and tachypneic with a respiratory of 26. Saturating 99% on room air. Cardiopulmonary exam was limited by body habitus however there is no obvious focal rales, wheezes. Heart rate was fast but regular. On exam there is no stigmata of VTE or CHF initially. I considered the following differential diagnosis: Arrhythmia, anemia, electro disturbance, thyroid dysfunction, PE, aortic dissection, ACS I obtained a broad lab and imaging workup to further elucidate etiology of the patient's complaints Initial EKG was concerning for frequent runs of non-sustained ventricular tachycardia. At this point in time 2 large-bore IVs were placed. millwright instructor applied. Pacer pads applied. Patient was treated empiric calcium and magnesium. She is given IV fluids. I consulted cardiology immediately spoke with Dr. Rios who recommended amiodarone drip and ICU admission. ALL IMAGES (IF OBTAINED) HAVE BEEN PERSONALLY REVIEWED AND INTERPRETED BY MYSELF. I have personally reviewed the patient's chest x-ray. Chest x-ray is unremarkable for pulmonary edema, pneumothorax, pneumonia or focal cardiopulmonary abnormality. High-sensitivity troponin is negative, no evidence of myocardial ischemia TSH, free T3, free T4 negative making thyroid dysfunction less likely Repeat EKG after about 10 to 15 minutes after initial intervention showed normalsinus rhythm with no obvious ischemic changes, normal intervals, normal axis, nosign of WPW, Brugada or ARVD. Will admit the patient to PCU for further rate monitoring, possible interventionand additional testing as deemed necessary by internal medicine and cardiology. The patient and/or family, caregivers express understanding. The patient and/orfamily, caregivers agrees with the plan. Shared decision making: I will have a discussion with the patient and or visitors regarding risk/benefits of further testing or admission. They will be made aware of of the risk/benefits inherent in this decision they will be given the opportunity to voice understanding. Total critical care time today provided was at least 60 minutes. This excludes separately billable procedures. Critical care time (if documented) is secondary to the patient having high probability of clinically significant/life threatening deterioration in the patient's condition which required my urgent intervention. Impression: 1. Palpitations 2. Nonsustained ventricular tachycardia 3. History of SVT Dispo: Admit to PCU This note was generated with Cortona3Dation software. It may contain incorrectwords, spelling, and punctuation that were not noted in review of the chart prior to signing. Discharge Plan Triage Chief Complaint: Palpitations ED Provider: Silvano Perez Dx/Rx/DC Orders Primary Care Provider: Mega Weeks I What to do if you have Problems For any increased pain, shortness of breath, bleeding, nausea or vomiting, chestpain, or any unexpected problems, contact your Primary Care Provider. Call [facility] ([phone]) or report to the closest Emergency Room. Call 911 if necessary. 01/11/25 1612 <Electronically signed by Silvano Perez DO> Cosigner Signature (if applicable): CC: Dr. Mega Weeks MD ~ Signed [facility] Work Phone: [phone] 147-904005-04-2025 Consult note [facility] Medical Records Department [address] [place] [address] Consultation - Cardiology 01/11/25 1658 MR#: [id number] Acct: [id number] Name: AMBIKA BROWN Rep #:[id number] : 1990 34 From: Shayla Rios MD PCP: Dr. Mega Weeks MD Status:ADM IN Location: [place] [address] Assessment & Plan Assessment/Plan (1) Near syncope: (2) Palpitations: (3) SVT (supraventricular tachycardia): PLAN: 34-year-old patient Presented to ED at [facility] complaining of symptoms of chest pain and palpitation. She had symptoms of mild dizziness with lightheadedness. Evidently patient has longstanding history of arrhythmia and has been seen and followed by EP at [facility] , with the patient evaluated previously with EP study which is negative with no significant arrhythmia noted. She also has echocardiographic evaluation which showed LV function within normaland has been on treatment with metoprolol and lisinopril in addition to low-doseaspirin. Other medical problem include history of hypertension prior history of COVID- 19,bronchial asthma. Cardiac exam essentially normal Cardiac care plan; Patient did share a monitor from her watch which showed irregular heart rhythm possible atrial fibrillation. Also she has implantable loop recorder which has been more than 4 years To explant and possible reimplant the loop recorder for monitoring of cardiac rhythm. Patient has recurrent episodes of nonsustained V. tach Check electrolytes magnesium potassium Started on amiodarone and remains in sinus with infrequent PVC Review of the current lab cardiac biomarker with high sensitive troponins and BNP within normal. Will reevaluate by echocardiogram Patient has been seen and followed here by primary promotions producer at [facility] Dr. Conrad Will continue to monitor and follow-up in progressive care unit HPI Consult Data Date of Consult: 01/11/25 HPI Narrative Reason for Consultation: Palpitation/recurrent episodes of nonsustained V. tach HPI Narrative: AMBIKA BROWN, is a 34 F who presents [facility] Medical History Hypothyroidism Pancreatitis Cholecystectomy planned Implantable loop recorder present SVT (supraventricular tachycardia) History of lupus anticoagulant disorder History of asthma Insulin resistance Migraines Home Medications ?Medication ?Instructions ?Recorded ?Last Taken ?Type levothyroxine 50 mcg tablet 50 mcg PO DAILY thyroid 04/10/23 History (Synthroid) ascorbic acid (vitamin C) 500 mg 500 mg PO DAILY suppl iment 03/05/24 Unknown History tablet aspirin 81 mg chewable tablet 81 mg PO DAILY preventat hilary 03/05/24 Unknown History cholecalciferol (vitamin D3) 25 25 mcg PO DAILY suppli ment 03/05/24 Unknown History mcg (1,000 unit) tablet gabapentin 100 mg capsule 100 mg PO DAILY PRN pain 05/04 Unknown History lisinopril 20 mg tablet 20 mg PO BID blood pressure 09/17/24 Unknown History ondansetron HCl 8 mg tablet 8 mg PO Q12H PRN nausea an d 09/17/24 Unknown History vomiting albuterol sulfate 90 mcg/actuation 1 inh inhalation ON CE PRN 11/18/24 Unknown History aerosol inhaler shortness of breath or wheez ing amlodipine 5 mg tablet (Norvasc) 5 mg PO QDAY blood pr essure #90 11/18/24 Unknown Rx tabs metoprolol tartrate 25 mg tablet 25 mg PO BID heart #1 80 tabs 11/18/24 Unknown Rx Allergy/AdvReac Type Severity Reaction Status Date / Time diphenhydramine (From Allergy Mild Chest Verified 01/11/25 13:55 Benadryl) tightness prochlorperazine (From Allergy Other Verified 01/11/25 13:55 Compazine) Family History Mother Cancer Thyroid disorder Father Heart disease Early 50s Surgical History History of section History of electrophysiologic study (02/13/22) History of tonsillectomy History of cholecystectomy Social History (Updated 01/11/25 @ 16:38 by Mago Hilton) household members: spouse housing: house Smoking Status: Never smoker alcohol intake: never substance use type: does not use caffeine: Yes Type: coffee Number of servings: 2 Physical Exam Cardio Cardio Narrative: Patient seen and evaluated in the ED Complaining of palpitation with 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 tach Cardiac exam S1-S2 regular No systolic or diastolic murmur. Chest exam clear to auscultation bilateral. Examination lower extremity no lower extremity edema noted. Risk Stratification Risk Stratification Applicable: No Objective Data Vital Signs: Vital Signs Temp Pulse Resp BP Pulse Ox O2 Del Method O2 Flow Rate 98.0 F 83 15 145/96 H 100 Nasal Cannula 2 01/11/25 15:51 01/11/25 15:51 01/11/25 15:51 01/11/25 15:51 01/11/25 15:51 01/11/25 15:02 01/11/25 15:02 Oxygen Flow Rate (L/min) 2 Oxygen Delivery Method Nasal Cannula Weight: 334 lb 10.587 oz Body Mass Index (BMI) 52.4 Intake & Output: Intake and Output for Last 24 Hours 01/09/25 01/10/25 01/11/25 23:59 23:59 23:59 Intake Total 1104 / 1104 Balance 1104 / 1104 Lab / Micro Data 01/11/25 14:05 01/11/25 14:05 Labs: Laboratory Results - last 24 hr 01/11/25 14:05: WBC 13.1 H, RBC 5.30, Hgb 13.5, Hct 41.2, MCV 77.7 L, MCH 25.5 L, MCHC 32.8, RDW Std Deviation 43.7, RDW Coeff of Remigio 15.4 H, Plt Count 262, MPV11.2, Immature Gran % (Auto) 0.300, Neut % (Auto) 68.5, Lymph % (Auto) 23.2, Piute % (Auto) 5.5, Eos % (Auto) 2.1, Baso % (Auto) 0.4, Absolute Neuts (auto) 9.0 H, Absolute Lymphs (auto) 3.05, Nucleated RBC % 0, Sodium 137, Potassium 3.6, Chloride 103, Carbon Dioxide 21.6, Anion Gap 13, BUN 13, Creatinine 0.76, Estim Creat Clear Calc 162.75, Est GFR (MDRD) Non-Af 107, BUN/Creatinine Ratio 16.6, Glucose 155 H, Calcium 8.9, Total Bilirubin0.31, AST 25, ALT 25, AlkalinePhosphatase 114 H, Troponin T High Sens < 6, NT pro BNP II < 36, Total Protein 7.7, Albumin 4.0, Globulin 3.7, Albumin/Globulin Ratio 1.1, TSH 1.620, Free T4 1.00,Free T3 pg/dL 3.0 01/11/25 15:24: Urine Color Straw, Urine Clarity Clear, Urine pH 6.0, Ur Specific [place] 1.010, Urine Protein 15 H, Urine Glucose (UA) Normal, Urine Ketones Negative, Urine Occult Blood 10 H, Urine Nitrite Negative, Urine Bilirubin Negative, Urine Urobilinogen Normal, Ur Leukocyte Esterase 25 H, Ur ineRBC 0-5 SEEN, Urine WBC 5-10 SEEN, Ur Squamous Epith Cells 0-5 SEEN, Urine Bacteria 2+, Urine Mucus 0 SEEN, Urine Opiates Screen NEGATIVE, U Buprenorphine Qual NEGATIVE, Ur Oxycodone Screen NEGATIVE, Urine Methadone Screen NEGATIVE, Urine Fentanyl Screen NEGATIVE, Ur Barbiturates Screen NEGATIVE, Ur Phencyclidine Scrn NEGATIVE, Ur Amphetamines Screen NEGATIVE, U Benzodiazepines Scrn NEGATIVE, Urine Cocaine Screen NEGATIVE, U Cannabinoids Screen NEGATIVE 01/11/25 16:08: Troponin T Hi Sens 2 Hr < 6 Cardiology Labs/Tests 01/11/25 14:05: WBC 13.1 H, RBC 5.30, Hgb 13.5, Hct 41.2, MCV 77.7 L, MCH 25.5 L, MCHC 32.8, Plt Count 262, MPV 11.2, Immature Gran % (Auto) 0.300, Neut % (Auto) 68.5, Lymph % (Auto) 23.2, Piute % (Auto) 5.5, Eos % (Auto) 2.1, Baso % (Auto) 0.4, Absolute Neuts (auto) 9.0 H, Nucleated RBC % 0, Llvelb107, Potassium 3.6, Chloride 103, Carbon Dioxide 21.6, Anion Gap 13, BUN 13, Creatinine 0.76, Est GFR (MDRD) Non-Af 107, BUN/Creatinine Ratio 16.6, Glucose 155 H, Calcium 8.9, Total Bilirubin 0.31 01/11/25 15:24: Urine Color Straw, Urine Clarity Clear, Urine pH 6.0, Ur Specific [place] 1.010, Urine Protein 15 H, Urine Glucose (UA) Normal, Urine Ketones Negative, Urine Occult Blood 10 H, Urine Nitrite Negative, Urine Bilirubin Negative, Urine Urobilinogen Normal, Ur Leukocyte Esterase 25 H, Ur ineRBC 0-5 SEEN, Urine WBC 5-10 SEEN Rhythm: EKG: ECHO: Stress Test: Cardiac Cath: PCI: CT Surgery: Holter monitor: EPS: PPM: CXR: Chest CT Scan: Radiography Diagnostic Testing: Radiology Impression Chest X-Ray 01/11/25 15:14 IMPRESSION: No Acute Findings. Reading Location: [facility] 01/11/25 1709 [facility] (if applicable): CC: Dr. Mega Weeks MD~ Signed [facility]05-04-2025 History and physical note [facility] Medical Records Department [address] [place] [id number] H&P Exam - Hospitalist 01/11/25 1607 MR#: [id number] Acct: [id number] Name: AMBIKA BROWN Rep #:[id number] : 1990 34 From: Marlon gonzalez MD PCP: Dr. Mega Weeks MD Status:ADM IN Location: [facility] BMI067- 1 HPI - General General Date of Admission: 01/11/25 HPI Narrative AMBIKA BROWN, is a 34 F who presents to the hospital with chest pain and palpitations. No syncope but some lightheadedness and dizziness. She says it has been going on since 2019 after she had COVID.Since that time she has had multiple evaluations with no definitive diagnosis she was evaluated by e lectrophysiology who could not induce an arrhythmia but and she had a loop recorder implanted whichdemonstrated 2 episodes of possible A-fib versus sinus rhythm with ectopy. She is also had episodesof SVT. Over the last couple of days she has been having increased palpitations and she does wear an Apple Watchwhich demonstrated what looks like episodes of A-fib however in the ER today shedemonstrated episodes of nonsustained V. tach. Troponins were unremarkable she does have a leukocytosis butunclear source, urine analysis is pending. She denies any travel out of the area, no unregulated supplement use, no chemical exposures, and no drug use. TSH is normal and cardiology was consulted in the ER with their recommendation of an amiodarone drip and an echocardiogram. She had an echo in 2020 with an EF of 50% and mild global hypokinesis of the left ventricle with no evidence of diastolic dysfunction. She was and gave to her son in 2022 which seems to have worsen her arrhythmic episodes. [facility] Medical History Hypothyroidism Pancreatitis Cholecystectomy planned Implantable loop recorder present SVT (supraventricular tachycardia) History of lupus anticoagulant disorder History of asthma Insulin resistance Migraines Home Medications ?Medication ?Instructions ?Recorded ?Last Taken ?Type levothyroxine 50 mcg tablet 50 mcg PO DAILY 12/05/22 0 04/10/23 History (Synthroid) ascorbic acid (vitamin C) 500 mg 500 mg PO DAILY 03/05 Unknown History tablet aspirin 81 mg chewable tablet 81 mg PO DAILY 03/05/24 Unknown History cholecalciferol (vitamin D3) 25 25 mcg PO DAILY Unknown History mcg (1,000 unit) tablet gabapentin 100 mg capsule 100 mg PO DAILY PRN pain 05/04 Unknown History lisinopril 20 mg tablet 20 mg PO BID 09/17/24 Unknow n History ondansetron HCl 8 mg tablet 8 mg PO Q12H PRN nausea an d 09/17/24 Unknown History vomiting albuterol sulfate 90 mcg/actuation 1 inh inhalation ON CE PRN 11/18/24 Unknown History aerosol inhaler shortness of breath or wheez ing amlodipine 5 mg tablet (Norvasc) 5 mg PO QDAY #90 tabs 11/18/24 Unknown Rx metoprolol tartrate 25 mg tablet 25 mg PO BID #180 tab s 11/18/24 Unknown Rx Allergy/AdvReac Type Severity Reaction Status Date / Time diphenhydramine (From Allergy Mild Chest Verified 01/11/25 13:55 Benadryl) tightness prochlorperazine (From Allergy Other Verified 01/11/25 13:55 Compazine) Family History Mother Cancer Thyroid disorder Father Heart disease Early 50s Surgical History History of section History of electrophysiologic study (02/13/22) History of tonsillectomy History of cholecystectomy Social History household members: spouse Smoking Status: Never smoker alcohol intake: never substance use type: does not use caffeine: Yes Type: coffee Number of servings: 2 ROS Constitutional Constitutional: Denies chills, fatigue, fever(s) or malaise Eyes Eyes: Denies blurry vision ENT HEENT: Denies headache(s) or nasal discharge Cardiovascular Cardiovascular: Reports chest pain, lightheadedness and palpitations; Denies dyspnea on exertion orsyncope Respiratory/Chest Respiratory/Chest: Denies cough, shortness of breath at rest or shortness of breath with exertion Gastrointestinal Gastrointestinal: Denies constipation, diarrhea, nausea or vomiting Genitourinary Genitourinary: Denies dysuria Neurologic Neurologic: Denies focal weakness, numbness or tremor(s) Psychiatric Psychiatric: Denies anxiety or depression Vital Signs Vital Signs Vital Signs: 01/11/25 13:55 01/11/25 14:04 01/11/25 14:13 Temperature 98.2 F Temperature Source Oral Pulse Rate 126 H 119 H 101 H Respiratory Rate 26 H 22 H 20 H Blood Pressure 184/98 H 160/69 H 149/87 H Blood Pressure Mean 126 99 107 Pulse Ox 99 100 98 Oxygen Delivery Method Room Air Room Air Room Air Oxygen Flow Rate (L/min) 01/11/25 15:02 01/11/25 15:51 Temperature 98.0 F Temperature Source Pulse Rate 109 H 83 Respiratory Rate 22 H 15 Blood Pressure 164/95 H 145/96 H Blood Pressure Mean 118 112 Pulse Ox 99 100 Oxygen Delivery Method Nasal Cannula Oxygen Flow Rate (L/min) 2 Weight Weight: 335 lb 15.752 oz Body Mass Index (BMI) 52.6 Physical Exam Narrative General: Alert, Oriented x3, Cooperative, No apparent distress HEENT: Atraumatic, PERRLA, EOMI, Normocephalic Oral: Dry mucosa Neck: Supple, No JVD Lungs: Clear to auscultation, Normal air movement, No rhonchi, No wheeze, No rales Cardiovascular: Regular rate, Regular Rhythm, Normal S1, Normal S2, No murmurs Abdomen: Soft, Non Tender, Non-Distended, No Hepato-splenomegaly Extremities: No edema, Capillary Refill Less than 3 Seconds Skin: No rashes, No breakdown Neurological: No focal neurological deficits, moves all extremities Psych/Mental Status: Normal Affect, Appropriate Results Lab / Micro Data 01/11/25 14:05 01/11/25 14:05 Labs: Laboratory Results - last 24 hr 01/11/25 14:05: WBC 13.1 H, RBC 5.30, Hgb 13.5, Hct 41.2, MCV 77.7 L, MCH 25.5 L, MCHC 32.8, RDW Std Deviation 43.7, RDW Coeff of Remigio 15.4 H, Plt Count 262, MPV11.2, Immature Gran % (Auto) 0.300, Neut % (Auto) 68.5, Lymph % (Auto) 23.2, Piute % (Auto) 5.5, Eos % (Auto) 2.1, Baso % (Auto) 0.4, Absolute Neuts (auto) 9.0 H, Absolute Lymphs (auto) 3.05, Nucleated RBC % 0, Sodium 137, Potassium 3.6, Chloride 103, Carbon Dioxide 21.6, Anion Gap 13, BUN 13, Creatinine 0.76, Estim Creat Clear Calc 162.75, Est GFR (MDRD) Non-Af 107, BUN/Creatinine Ratio 16.6, Glucose 155 H, Calcium 8.9, Total Bilirubin0.31, AST 25, ALT 25, AlkalinePhosphatase 114 H, Troponin T High Sens < 6, NT pro BNP II < 36, Total Protein 7.7, Albumin 4.0, Globulin 3.7, Albumin/Globulin Ratio 1.1, TSH 1.620, Free T4 1.00,Free T3 pg/dL 3.0 01/11/25 15:24: Urine Opiates Screen NEGATIVE, U Buprenorphine Qual NEGATIVE, UrOxycodone Screen NEGATIVE, Urine Methadone Screen NEGATIVE, Urine Fentanyl Screen NEGATIVE, Ur Barbiturates Screen NEGATIVE, Ur Phencyclidine Scrn NEGATIVE, Ur Amphetamines Screen NEGATIVE, U Benzodiazepines Scrn NEGATIVE, Urine Cocaine Screen NEGATIVE, U Cannabinoids Screen NEGATIVE Imaging Radiology Impression Chest X-Ray 01/11/25 15:14 IMPRESSION: No Acute Findings. Reading Location: [id number] Assessment & Plan Assessment/Plan (1) Ventricular tachycardia: (2) Palpitations: PLAN: Plan 1. Chest pain and palpitations/essential HTN ? Unclear as to what her underlying rhythm is, the rhythm strip from her watch almost looks like fine V-fib, in the ER she had nonsustained V. tach and on her loop recorder she had A-fib versus sinusrhythm with ectopy ? Will repeat echocardiogram and continue with amiodarone drip ? Will consult cardiology, initial troponin was unremarkable, 2-hour troponin still pending. BNP isnormal ? Will resume her home blood pressure medications including her other rate control medications ? Unclear if this is related to COVID with a worsening since her surgery, in 2020 she did have mildglobal hypokinesis of the left ventricle on her echo which could be worsened with her ? Unclear as to the etiology of her leukocytosis, UA is pending 2. Hypothyroidism ? TSH is normal ? Continue with Synthroid DVT: Lovenox 75 minutes was spent on direct patient care, including documentation as well as chart review and collaboration with colleagues Charges/Coding Visit Charges Inpatient E&M: 40882 Init Hosp L3 01/11/25 1624 Cosigner Signature (if applicable): CC: Dr. Mega Weeks MD; Dr. Mralon Damon MD~ Signed [facility]05-04-2025 Discharge summary [facility] Medical Records Department [address] [place] [address] Emergency Department Summary 01/11/25 MR#: [id number] Acct: [id number] Name: AMBIKA BROWN Rep #:[id number] : 1990 34 From: Silvano Newberry PCP: Dr. Mega Weeks MD Status:ADM IN Location: [address] History of Present Illness Chief Complaint: Palpitations PFSH PFS Medical History Hypothyroidism Pancreatitis Cholecystectomy planned Implantable loop recorder present SVT (supraventricular tachycardia) History of lupus anticoagulant disorder History of asthma Insulin resistance Migraines Home Medications ?Medication ?Instructions ?Recorded ?Last Taken ?Type levothyroxine 50 mcg tablet 50 mcg PO DAILY 12/05/22 0 04/10/23 History (Synthroid) ascorbic acid (vitamin C) 500 mg 500 mg PO DAILY 03/05 Unknown History tablet aspirin 81 mg chewable tablet 81 mg PO DAILY 03/05/24 Unknown History cholecalciferol (vitamin D3) 25 25 mcg PO DAILY Unknown History mcg (1,000 unit) tablet gabapentin 100 mg capsule 100 mg PO DAILY PRN pain 05/04 Unknown History lisinopril 20 mg tablet 20 mg PO BID 09/17/24 Unknow n History ondansetron HCl 8 mg tablet 8 mg PO Q12H PRN nausea an d 09/17/24 Unknown History vomiting albuterol sulfate 90 mcg/actuation 1 inh inhalation ON CE PRN 11/18/24 Unknown History aerosol inhaler shortness of breath or wheez ing amlodipine 5 mg tablet (Norvasc) 5 mg PO QDAY #90 tabs 11/18/24 Unknown Rx metoprolol tartrate 25 mg tablet 25 mg PO BID #180 tab s 11/18/24 Unknown Rx Allergy/AdvReac Type Severity Reaction Status Date / Time diphenhydramine (From Allergy Mild Chest Verified 01/11/25 13:55 Benadryl) tightness prochlorperazine (From Allergy Other Verified 01/11/25 13:55 Compazine) Family History Mother Cancer Thyroid disorder Father Heart disease Early 50s Surgical History History of section History of electrophysiologic study (02/13/22) History of tonsillectomy History of cholecystectomy Social History household members: spouse Smoking Status: Never smoker alcohol intake: never substance use type: does not use caffeine: Yes Type: coffee Number of servings: 2 EXAM Physical Exam Const Vital Signs: 01/11/25 13:55 01/11/25 14:04 Temperature 98.2 F Temperature Source Oral Pulse Rate 126 H 119 H Respiratory Rate 26 H 22 H Blood Pressure 184/98 H 160/69 H Blood Pressure Mean 126 99 Pulse Ox 99 100 Oxygen Delivery Method Room Air Room Air MDM MDM MDM Narrative Medical decision making narrative: HISTORY OF PRESENT ILLNESS: Chief complaint: Palpitations 34-year-old female history of SVT, ventricular tachycardia, obesity, hypothyroidism, hypertension presents with acute onset of chest pain and palpitation occurred prior to arrival. No syncope. No bleeding diathesis noted. No recent illnesses. The patient denies recent surgery in the last 4 weeks or immobilization in the last 3 days, denies previous diagnosis of DVT or PE, hemoptysis, unilateral leg swelling or malignancy with treatment the last 6 months or palliative. No estrogen use noted. Patient denies sudden onset of pain, no tearing sensation, no migratory symptoms, no new numbness, weakness or loss of sensation. Patient denies family history or personal history of Connective tissue disorders (Marfan's Syndrome, Lorne Danlos etc). REVIEW OF SYSTEMS: Pertinent positives: Chest pain, palpitation Pertinent negatives: As per HPI PHYSICAL EXAM: Nursing triage notes reviewed, Vital signs reviewed Constitutional: please see mdm HENT: MMM Eyes: Pupils equal round and reactive to light, Extraocular muscles intact Neck: No stridor, no JVD, full neck ROM Lungs: Clear to auscultation, No wheezing or rales. No increased work of breathing, no conversational dyspnea, no accessory muscle use, no nasal flaring. No respiratory distress noted Heart: Regular rate and rhythm, No murmurs, No rubs and No gallops, 2+ distal pulses (radial, femoral, posterior tibial) in all extremities Abdomen: Soft, there is no tenderness, rigidity, rebound or guarding, no obviousperitoneal signs, no palpable pulsatile abdominal masses, no auscultated abdominal bruit : No CVAT Extremities: No edema Neuro: No new focal neurological deficits, cranial nerves II through XII intact,5/5 strength in allpresent extremities. Intact sensation to light touch in all present extremities, 2+ reflexes bilateral patella tendons. Skin: No rash or lesions noted MEDICAL DECISION MAKING: Chief Complaint: please see HPI External records reviewed: Reviewed prior cardiovascular studies Factors affecting care: As per HPI Social determinants of health: denies drug use History obtained from others: none Consults: 1. Cardiology (Dr. Rios)?discussed initial management for NSVT, chest pain. Dr. Headley recommended electrolyte replacement and starting amiodarone drip and admit to the ICU for further evaluation. 2. Internal medicine (Dr. Damon) -discussed admitting to the PCU. Discussedthe patient's prior evaluations. Discussed the cardiology recommendation to admit to ICU. I am physician note he was comfortable with her in PCU. MDM Narrative: Patient was initially hypertensive with blood pressure 184/98, tachycardic with a heart rate of 126and tachypneic with a respiratory of 26. Saturating 99% on room air. Cardiopulmonary exam was limited by body habitus however there is no obvious focal rales, wheezes. Heart rate was fast but regular. On exam there is no stigmata of VTE or CHF initially. I considered the following differential diagnosis: Arrhythmia, anemia, electro disturbance, thyroiddysfunction, PE, aortic dissection, ACS I obtained a broad lab and imaging workup to further elucidate etiology of the patient's complaints Initial EKG was concerning for frequent runs of non-sustained ventricular tachycardia. At this point in time 2 large-bore IVs were placed. millwright instructor applied. Pacer pads applied. Patient was treated empiric calcium and magnesium. She is given IV fluids. I consulted cardiology immediately spokewith Dr. Rios who recommended amiodarone drip and ICU admission. ALL IMAGES (IF OBTAINED) HAVE BEEN PERSONALLY REVIEWED AND INTERPRETED BY MYSELF. I have personally reviewed the patient's chest x-ray. Chest x-ray is unremarkable for pulmonary edema, pneumothorax, pneumonia or focal cardiopulmonary abnormality. High-sensitivity troponin is negative, no evidence of myocardial ischemia TSH, free T3, free T4 negative making thyroid dysfunction less likely Repeat EKG after about 10 to 15 minutes after initial intervention showed normalsinus rhythm with no obvious ischemic changes, normal intervals, normal axis, nosign of WPW, Brugada or ARVD. Will admit the patient to PCU for further rate monitoring, possible interventionand additional testing as deemed necessary by internal medicine and cardiology. The patient and/or family, caregivers express understanding. The patient and/orfamily, caregivers agrees with the plan. Shared decision making: I will have a discussion with the patient and or visitors regarding risk/benefits of further testing or admission. They will be made aware of of the risk/benefits inherent in this decision they will be given the opportunity to voice understanding. Total critical care time today provided was at least 60 minutes. This excludes separately billable procedures. Critical care time (if documented) is secondary to the patient having high probability of clinically significant/life threatening deterioration in the patient's condition which required myurgent intervention. Impression: 1. Palpitations 2. Nonsustained ventricular tachycardia 3. History of SVT Dispo: Admit to PCU This note was generated with i-Ne[employer] dictation software. It may contain incorrectwords, spelling, and punctuation that were not noted in review of the chart prior to signing. Discharge Plan Triage Chief Complaint: Palpitations ED Provider: Silvano Perez Dx/Rx/DC Orders Primary Care Provider: Mega Weeks I What to do if you have Problems For any increased pain, shortness of breath, bleeding, nausea or vomiting, chestpain, or any unexpected problems, contact your Primary Care Provider. Call [facility] ([phone]) or report tothe closest Emergency Room. Call 911 if necessary. 01/11/25 1612 Cosigner Signature (if applicable): CC: Dr. Mega Weeks MD ~ Signed [facility]05-04-2025 Radiology Diagnostic study note [facility] Imaging Services [address] [place], [place] [address] Chest 1 View (Portable) MR#: [id number] Acct: [id number] Name: AMBIKA BROWN Rep #: [id number] : 1990 F 34 From: Juan Earl MD PCP: Dr. Mega Weeks MD Status: REG ER Study:Chest 1 View (Portable) Date of Exam: 01/11/25 Exam# [id number] Ordering Dr: Devorah Perez DO PROCEDURE: CHEST 1 VIEW (PORTABLE) 01/11/2025 REASON FOR EXAM: PALPITATIONS TECHNIQUE: Frontal view of the chest. COMPARISON: 12/03/2024 FINDINGS: Hardware: None Heart: The heart size is normal. Lungs: The lungs are clear. Bones: The bones are unremarkable. Other: RAD/Chest 1 View (Portable) IMPRESSION: No Acute Findings. Reading Location: [id number] CC: Dr. Mega Weeks MD; Dr. Silvano Perez DO ~ 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: Signed [facility]05-01-2025 Evaluation note* Diagnosis Onset Date Resolution Status Admit Date SVT (supraventricular tachycardia) acute January 08, 2025 1: 47pm HTN (hypertension), benign inactive January 08, 2025 1:47pm Arrhythmia acute January 11, 2025 4:03pm Palpitations acute January 11 4:03pm SVT (supraventricular tachycardia) acute January 11, 2025 4: 03pm Ventricular tachycardia acute M 2024 4:03pm Near syncope resolved January 11 4:03pm SVT (supraventricular tachycardia) acute February 20, 2025 3:57pm HTN (hypertension), benign inactive February 20, 2025 3:57pm [facility] Work Phone: 1(405) 158-842604-08-2025 Instructions* Patient Instructions* Nitin Rock MD - 12/16/2024 9:23 AM EDT We discussed your supraventricular tachycardia (SVT) and related symptoms: - You have been experiencing worsening episodes of palpitations, lightheadedness, and occasional fainting, as well as chest pain and significant fatigue. These symptoms are impacting your daily life and work. - Your implantable loop recorder, placed in August 2022, has reached the end of its battery life and is no longer providing data. The most recent interrogation report from September 2024 showed briefepisodes of arrhythmia, but the details are unclear due to poor fax quality. - Your prior electrophysiology (EP) study in February 2022 did not identify any abnormalities or inducearrhythmias, but this does not rule out the presence of SVT or other arrhythmias. Plan: - I will review the rhythm strips from your smartwatch to better understand your episodes. - I recommend starting a new medication, flecainide, to help suppress your arrhythmias. This will be used in combination with your current metoprolol. I will confirm this plan and send the prescription to your pharmacy. - I will request a repeat echocardiogram to evaluate the structure and function of your heart, as this will guide treatment decisions. - We will proceed with scheduling another EP study to attempt to identify and treat the source of your arrhythmias. This is a low-risk procedure, and while there is a chance we may not find anything,it is worth pursuing given the impact on your quality of life. We discussed your current medications: - Continue taking metoprolol, amlodipine (Norvasc), and lisinopril as prescribed. - You may continue using gabapentin, Phenergan, and frovatriptan as needed for migraines, though you noted you rarely use them. We discussed your ability to work: - You may continue working full-time as long as you feel able to manage your symptoms and ensure your safety during episodes. Please let me know if your symptoms worsen or if you feel unsafe at work. Next steps: - I will review your smartwatch rhythm strips and confirm the prescription for flecainide. - I will coordinate with the [facility] to schedule your echocardiogram and repeat EP study. - Please contact me if your symptoms worsen, if you experience prolonged or severe episodes, or if you have any concerns about your treatment plan. Let s work together to improve your symptoms and quality of life. [facility] History of Present illness Narrative* Nitin Rock MD - 12/16/2024 8:20 AM EDT PRIMARY CARE [place]: [place] [address] [place] [address] REFERRING PHYSICIAN: Alison Díaz ([facility]) [address] [place] [address] Patient Care Team: Mega Weeks as PCP - General (Internal Medicine) John Conrda MD as Specialty Retail Client Solutions Analyst (Cardiology) Nitin Rock MD as Specialty Retail Client Solutions Analyst (Cardiology) Alison Díaz PA-C as Physician Oil Spraying Machine Operator (Cardiology) The patient consented to the use of ambient [employer] software for draft documentation of the visit consistent with [facility] s Notice of Privacy Practices. CHIEF COMPLAINT: Evaluation of arrhythmia HISTORY OF PRESENT ILLNESS: Ms. Brown is a 34 year old female who presents today for evaluation of arrhythmia. I had seen her afew years ago for this condition and she is now referred back to me by [facility]. Patient Overview: Ms. Brown is referred for evaluation of supraventricular tachycardia (SVT). She is followed by [facility] and has multiple other medical problems, including morbid obesity and hypertension. There is a history of an electrophysiology study performed in February 2022. She also had an [employer] implantable cardiac loop recorder inserted in August 2022. Diagnostic Results: - Implantable Loop Recorder Interrogation Report (September 2024): - Battery may reach end of service within approximately a month. - Brief episodes of arrhythmia noted. Items for Follow-Up Today: - Review implantable loop recorder interrogation report in more detail, possibly with a better fax copy. The patient is a 34-year-old female with a history of SVT, morbid obesity, and hypertension, presenting for evaluation of worsening arrhythmia symptoms. The patient reports a significant increase in the frequency and severity of palpitations and SVT. She experiences episodes of tachycardia accompanied by lightheadedness and has had several instances of near syncope or even syncope. She also reports chest pain even in the absence of tachycardia. These symptoms have led to severe fatigue, described as running on 20% energy every day, and feelingsof unsafety at work due to frequent lifting of patients. Symptoms are exacerbated by physical exertion, such as carrying her young infant son. She has a history of elevated blood pressure, which she believes contributed to the worsening of her arrhythmia. Her blood pressure is now better controlled. She was evaluated in [facility] EP office in 2021 for the symptomatic arrhythmia. She underwent an EP study on 02/13/2022 at [facility], which did not induce any arrhythmias or reveal any accessory pathways. There was concern that she might have a form of SVT that is not readily inducible, such as an atrial tachycardia. An Harmon implantable loop recorder was placed in 08/2022, with the last interrogation in 09/2024 showing no arrhythmias. The device's battery is now depleted. She has provided EKG strips from her smartwatch that she recorded during symptoms demonstrating SVT. She denies any recent surgeries or procedures other than a section in 04/2023. She has a 1.5-year-old son and a history of five miscarriages. She expresses a desire to have another child butwants to address her cardiac issues first. She became tearful discussing her arrhythmia condition and the impact it is having on her ability to do her job and take care of her family. She is currently taking metoprolol 25 mg, amlodipine, lisinopril, and aspirin at bedtime. She uses gabapentin, Phenergan, and another medication as needed for migraines but reports minimal use due tosedation. She has a known allergy to Compazine, which caused akathisia. I have confirmed and edited as necessary, the PFSH and ROS obtained by others. PAST MEDICAL HISTORY Diagnosis Date Asthma (HCC) Chronic hypertension Clotting disorder (HCC) Fibromyalgia GERD (gastroesophageal reflux disease) Gestational diabetes (HCC) Hiatal hernia Hypothyroidism Implantable loop recorder present Insulin resistance Lupus anticoagulant disorder (HCC) Migraines Nonsustained ventricular tachycardia (HCC) Obesity, Class III, BMI >= 40 07/15/2021 Obstructive sleep apnea syndrome 09/21/2022 Has CPAP machine but currently not using- needs to get full mask, still working on this. Challenged with side sleeping and nasal congestion impacting comfort with mask. Suggest cool mist humidifier. Counseled on importance of compliance for and cardiovascular health. improved sleep with pillow adjustment. reports no further snoring Reviewed on 06/18/2023 Palpitations Pancreatitis (HCC) Paroxysmal supraventricular tachycardia (HCC) Pre-eclampsia (HCC) Supraventricular tachycardia (HCC) Syncope Thyroid disease PAST SURGICAL HISTORY Procedure Laterality Date DELIVERY ONLY 05/09/2023 CHOLECYSTECTOMY 2014 D&C, DIAG AND/OR THERAPEUTIC 2018 EP STUDY 02/13/2022 comprehensive EP study; normal study, no accessory pathways; +dual AV azra pathways but no inducible SVT; CCAG Dr. Rock LOOP RECORDER IMPLANT Left 08/2022 Harmon/SJM implantable cardiac loop recorder insertion ORAL SURGERY PROCEDURE 2009 wisdom teeth TONSILLECTOMY HX 2005 SOCIAL HISTORY Social History Tobacco Use Smoking status: Never Smokeless tobacco: Never Vaping Use Vaping status: Never Used Substance Use Topics Alcohol use: Never Drug use: Never FAMILY HISTORY Problem Relation Age of Onset Hypothyroidism Mother Cancer Mother glioblastoma Hyperlipidemia Father Hypertension Father Asthma Sister Migraines Sister Bipolar disorder Sister No Known Problems Brother No Known Problems Brother Diabetes Maternal Grandmother Diabetes Maternal Grandfather Stroke Paternal Grandmother other (COVID-19) Paternal Grandmother Heart disease Paternal Grandfather had two open heart surgeries ALLERGIES: ALLERGIES Allergen Reactions Prochlorperazine Mental Status Change Compazine akathesia Diphenhydramine Intolerance Heart palpitations, anxiety MEDICATIONS: metoprolol tartrate, short acting, (LOPRESSOR) 25 mg tablet^Take 1 tablet by mouth two times a day.^Disp: ^Rfl: lisinopril (ZESTRIL) 20 mg tablet^Take 20 mg by mouth two times a day.^Disp: ^Rfl: ascorbic acid, vitamin C, (VITAMIN C) 500 mg tablet^Take 500 mg by mouth once daily.^Disp: ^Rfl: amLODIPine (NORVASC) 5 mg tablet^Take 5 mg by mouth once daily.^Disp: ^Rfl: methocarbamol (ROBAXIN) 500 mg tablet^Take 1 tablet (500 mg) by mouth four times a day until headache free for 24 hours or take for full 5 days.^Disp: 20 tablet^Rfl: 0 gabapentin (NEURONTIN) 100 mg capsule^Take 100 mg by mouth as needed (migraine).^Disp: ^Rfl: ondansetron (ZOFRAN) 8 mg tablet^FOR NAUSEA. Take on at onset of nausea or migraine,may repeat dosein 8 hours if needed.^Disp: 20 tablet^Rfl: 4 naproxen (NAPROSYN) 500 mg tablet^Take 1 tablet by mouth two times a day as needed for pain.^Disp: 60 tablet^Rfl: 3 levothyroxine (SYNTHROID) 50 mcg tablet^Take 50 mcg by mouth every morning. Take On an Empty Stomach^Disp: ^Rfl: aspirin, enteric coated (ASPIRIN, ENTERIC COATED) 81 mg EC tablet^Take 81 mg by mouth daily at bedtime. ^Disp: ^Rfl: promethazine (PHENERGAN) 25 mg tablet^1/2 to 1 po q8h prn headache or nausea^Disp: 45 tablet^Rfl: 11 cholecalciferol, vitamin D3, (VITAMIN D3 ORAL)^Take by mouth.^Disp: ^Rfl: PNV/FERROUS SULFATE/FOLIC ACID ( MULTIVIT WITH IRON ORAL)^Take by mouth daily at bedtime. ^Disp: ^Rfl: albuterol HFA (PROVENTIL HFA, VENTOLIN HFA) 90 mcg/actuation inhaler^Inhale 2 Puffs as instructed every 4 hours as needed for Wheezing/Shortness of Breath.^Disp: ^Rfl: REVIEW OF SYSTEMS: Review of Systems Constitutional: Positive for malaise/fatigue. Negative for chills and fever. Respiratory: Positive for shortness of breath. Negative for cough, hemoptysis and sputum production. Cardiovascular: Positive for chest pain and palpitations. Negative for orthopnea and PND. Gastrointestinal: Negative for abdominal pain, nausea and vomiting. Musculoskeletal: Negative for falls. Skin: Negative for rash. Neurological: Positive for dizziness and loss of consciousness. Negative for focal weakness. PHYSICAL EXAMINATION: BP 143/90 Pulse 85 Wt 345 lb (156.5kg) LMP 07/29/2024 Physical Exam Vitals reviewed. Constitutional: General: She is not in acute distress. Cardiovascular: Rate and Rhythm: Normal rate and regular rhythm. Heart sounds: Normal heart sounds, S1 normal and S2 normal. No murmur heard. No friction rub. Pulmonary: Effort: Pulmonary effort is normal. No respiratory distress. Breath sounds: Normal breath sounds. No wheezing, rhonchi or rales. Musculoskeletal: Cervical back: Neck supple. Skin: General: Skin is warm and dry. Neurological: General: No focal deficit present. Mental Status: She is alert and oriented to person, place, and time. Psychiatric: Mood and Affect: Mood normal. Behavior: Behavior normal. Thought Content: Thought content normal. CARDIOVASCULAR MEDICINE TESTING: Electrocardiogram: Sinus rhythm 84 bpm; normal conduction intervals (ND 146 ms, QRS 76 ms); QTc 451ms; no WPW pattern I have personally reviewed the Electrocardiogram. 1. Paroxysmal supraventricular tachycardia (HCC) - ICD9: 427.0, ICD10: I47.10 (primary diagnosis) 2. Palpitations - ICD9: 785.1, ICD10: R00.2 3. Implantable loop recorder present - ICD9: V45.09, ICD10: Z95.818 4. POTS (postural orthostatic tachycardia syndrome) - ICD9: 427.89, ICD10: G90.A 5. Obesity, Class III, BMI >= 40 - ICD9: 278.01, ICD10: E66.01 6. Obstructive sleep apnea syndrome - ICD9: 327.23, ICD10: G47.33 IMPRESSION: 1. Paroxysmal supraventricular tachycardia (HCC) (I47.10) Palpitations (R00.2) Recurrent episodes of SVT and palpitations, sometimes leading to syncope and chest pain. Symptoms have worsened over the past few months, affecting daily activities and work. Previous EP study in February 2022 did not induce arrhythmia. Current EKG shows normal rhythm at 84 bpm. - Review smartwatch EKG strips demonstrating SVT. - Consider initiation of antiarrhythmic medication, specifically flecainide, pending review of echocardiogram results. - Order repeat echocardiogram to assess for any structural heart changes. She will contact [facility] to have the echocardiogram completed. - Discussed the possibility of a repeat EP study to further investigate arrhythmia. She expressed agreat deal of interest in this option. - Patient advised to continue current medications: metoprolol, amlodipine, and lisinopril. - Patient understands and agrees with the plan. 2. Implantable loop recorder present (Z95.818) Harmon implantable loop recorder inserted in August 2022; battery reportedly depleted. Previous interrogation reports showed brief arrhythmia episodes. - Review detailed interrogation reports from the loop recorder. - Discuss potential replacement of the loop recorder with the cardiology team. 3. POTS (postural orthostatic tachycardia syndrome) (G90.A) No evidence or mention of POTS in current evaluation. Not addressed this visit. 4. Obesity, Class III, BMI 40-49.9 (morbid obesity) (HCC) (E66.01) Contributing factor to hypertension and potential exacerbation of arrhythmia symptoms. - Continue management of hypertension with current medications. - Discussed the importance of weight management in controlling symptoms. 5. Obstructive sleep apnea syndrome (G47.33) Not directly addressed in this visit. PLAN AND RECOMMENDATIONS: As above. Will schedule EP study with goal of catheter ablation if a suitable arrhythmia is induced or provoked. Echocardiogram to evaluate ventricular function, valves, chamber dimensions, and particularly to rule out any contraindications to Class IC antiarrhythmic drug (flecainide) such as cardiomyopathy or more than moderate degree of LVH. She will have the echocardiogram completed at [facility].Please send report to me to review when completed. I had a detailed discussion with Ms. Brown regarding my evaluation and recommendations. After our discussion, Ms. Brown expressed her understanding and I answered all her questions to her apparent satisfaction. She agrees to proceed as outlined. INFORMED CONSENT The risks, benefits and anticipated outcomes of the procedure, the risks and benefits of the alternatives to the procedure and the roles and tasks of the personnel to be involved were discussed with the patient. Consent for the procedure and agreement to proceed has been obtained. I verify that I personally obtained the consent. Nitin Rock MD 12/16/2024 Medical Decision Making: Problems: Moderate: 1+ chronic illnesses with change Data: Unique source(s) for external note(s) reviewed: 1 Unique test result(s) reviewed: 3+ Unique test(s) ordered: 1 Risk: Moderate: Moderate risk from testing/treatment, Drug management and Decision on minor surgery w/ risk factors Medical Decision Making Level: 4 - Moderate [facility] NoteHNO ID: [id number] Author: NITIN ROCK MD Service: ? Author Type: Physician Type: Progress Notes Filed: 12/16/2024 19:37 Note Text: PRIMARY CARE PHYSIC[place]: [place] [address] [place] [address] REFERRING PHYSICIAN: Alison Díaz ([facility]) [address] [facility] [address] Patient Care Team: Mega Weeks as PCP - General (Internal Medicine) John Conrad MD as Specialty Retail Client Solutions Analyst (Cardiology) Nitin Rock MD as Specialty Retail Client Solutions Analyst (Cardiology) Alison Díaz PA-C as Physician Oil Spraying Machine Operator (Cardiology) The patient consented to the use of ambient AI software for draft documentation of the visit consistent with [facility]?s Notice of Privacy Practices. CHIEF COMPLAINT: Evaluation of arrhythmia HISTORY OF PRESENT ILLNESS: Ms. Brown is a 34 year old female who presents today for evaluation of arrhythmia. I had seen her a few years ago for this condition and she is now referred back to me by [facility]. Patient Overview: Ms. Brown is referred for evaluation of supraventricular tachycardia (SVT). She is followed by [facility] and has multiple other medical problems, including morbid obesity and hypertension. There is a history of an electrophysiology study performed in February 2022. She also had an Harmon implantable cardiac loop recorder inserted in August 2022. Diagnostic Results: - Implantable Loop Recorder Interrogation Report (September 2024): - Battery may reach end of service within approximately a month. - Brief episodes of arrhythmia noted. Items for Follow-Up Today: - Review implantable loop recorder interrogation report in more detail, possibly with a better fax copy. The patient is a 34-year-old female with a history of SVT, morbid obesity, and hypertension, presenting for evaluation of worsening arrhythmia symptoms. The patient reports a significant increase in the frequency and severity of palpitations and SVT. She experiences episodes of tachycardia accompanied by lightheadedness and has had several instances of near syncope or even syncope. She also reports chest pain even in the absence of tachycardia. 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 Symptoms are exacerbated by physical exertion, such as carrying her young infant son. She has a history of elevated blood pressure, which she believes contributed to the worsening of her arrhythmia. Her blood pressure is now better controlled. She was evaluated in [facility] EP office in 2021 for the symptomatic arrhythmia. She underwent an EP study on 02/13/2022 at [facility], which did not induce any arrhythmias or reveal any accessory pathways. There was concern that she might have a form of SVT that is not readily inducible, such as an atrial tachycardia. An Harmon implantable loop recorder was placed in 08/2022, with the last interrogation in 09/2024 showing no arrhythmias. The device's battery is now depleted. She has provided EKG strips from her smartwatch that she recorded during symptoms demonstrating SVT. She denies any recent surgeries or procedures other than a section in 04/2023. She has a 1.5-year-old son and a history of five miscarriages. She expresses a desire to have another child but wants to address her cardiac issues first. She became tearful discussing her arrhythmia condition and the impact it is having on her ability to do her job and take care of her family. She is currently taking metoprolol 25 mg, amlodipine, lisinopril, and aspirin at bedtime. She uses gabapentin, Phenergan, and another medication as needed for migraines but reports minimal use due to sedation. She has a known allergy to Compazine, which caused akathisia. I have confirmed and edited as necessary, the PFSH and ROS obtained by others. PAST MEDICAL HISTORY Diagnosis Date Asthma (HCC) Chronic hypertension Clotting disorder (HCC) Fibromyalgia GERD (gastroesophageal reflux disease) Gestational diabetes (HCC) Hiatal hernia Hypothyroidism Implantable loop recorder present Insulin resistance Lupus anticoagulant disorder (HCC) Migraines Nonsustained ventricular tachycardia (HCC) Obesity, Class III, BMI >= 40 07/15/2021 Obstructive sleep apnea syndrome 09/21/2022 Has CPAP machine but currently not using- needs to get full mask, still working on this. Challenged with side sleeping and nasal congestion impacting comfort with mask. Suggest cool mist humidifier. Counseled on importance of compliance for and cardiovascular health. improved sleep with pillow adjustment. reports no further snoring Reviewed on 06/18/2023 Palpitations Pancreatitis (HCC) Paroxysmal supraventricular tachycardia (HCC) Pre-eclam (more content not included)...[facility]03-26-2025 Discharge summary [facility] Medical Records Department [address] [place] [address] Emergency Department Summary 12/03/24 MR#: [id number] Acct: [id number] Name: AMBIKA BROWN Rep #:[id number] : 1990 34 From: Silvano Newberry PCP: Dr. Mega Weeks MD Status:REG ER Location: ED ADDENDUM by Dr. Silvano Perez DO on 12/03/24 at 2315 Of note prior to discharge the patient noted she still felt like her heart may be racing. 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 Discussed the case with cardiology. Spoke with Dr. Conrad. Given the patient'sstable vitals, negative workup, nonischemic non-arrhythmogenic EKG, negative troponin, normal electrolytes patient did not require observation. Recommended close outpatient follow-up. The patient hasan appointment with electrophysiology in the coming weeks. Strict return precautions were discussed. 12/03/24 2576 Cosigner Signature (if applicable): cc: Dr. Mega Weeks MD ~* Signed HPI History of Present Illness Chief Complaint: Syncope [facility] Medical History Hypothyroidism Pancreatitis Cholecystectomy planned Implantable loop recorder present SVT (supraventricular tachycardia) History of lupus anticoagulant disorder History of asthma Insulin resistance Migraines Home Medications ?Medication ?Instructions ?Recorded ?Last Taken ?Type levothyroxine 50 mcg tablet 50 mcg PO DAILY 12/05/22 0 04/10/23 History (Synthroid) ascorbic acid (vitamin C) 500 mg 500 mg PO DAILY 03/05 Unknown History tablet aspirin 81 mg chewable tablet 81 mg PO DAILY 03/05/24 Unknown History cholecalciferol (vitamin D3) 25 25 mcg PO DAILY Unknown History mcg (1,000 unit) tablet gabapentin 100 mg capsule 100 mg PO DAILY PRN pain 05/04 Unknown History lisinopril 20 mg tablet 20 mg PO BID 09/17/24 Unknow n History methocarbamol 500 mg tablet 500 mg PO Q6H PRN pain 05/04 Unknown History ondansetron HCl 8 mg tablet mg PO 09/17/24 Unknown His tory albuterol sulfate 90 mcg/actuation 1 inh inhalation ON CE PRN 11/18/24 Unknown History aerosol inhaler amlodipine 5 mg tablet (Norvasc) 5 mg PO QDAY #90 tabs 11/18/24 Unknown Rx metoprolol tartrate 25 mg tablet 25 mg PO BID #180 tab s 11/18/24 Unknown Rx Allergy/AdvReac Type Severity Reaction Status Date / Time diphenhydramine (From Allergy Mild Chest Verified 11/18/24 09:59 Benadryl) tightness prochlorperazine (From Allergy Other Verified 11/18/24 09:59 Compazine) Family History Mother Cancer Thyroid disorder Father Heart disease Early 50s Surgical History History of section History of electrophysiologic study (02/13/22) History of tonsillectomy History of cholecystectomy Social History household members: spouse Smoking Status: Never smoker alcohol intake: never substance use type: does not use caffeine: Yes Type: coffee Number of servings: 2 EXAM Physical Exam Const Vital Signs: 12/03/24 20:22 12/03/24 20:28 12/03/24 20:53 Temperature 98.1 F Temperature Source Oral Pulse Rate 94 Respiratory Rate 19 H Respiratory Effort Normal Respiratory Pattern Normal Blood Pressure 142/78 H Blood Pressure Mean 99 Pulse Ox 95 Oxygen Delivery Method Room Air Room Air 12/03/24 22:21 Temperature Temperature Source Pulse Rate 103 H Respiratory Rate 21 H Respiratory Effort Respiratory Pattern Blood Pressure 155/83 H Blood Pressure Mean 107 Pulse Ox 96 Oxygen Delivery Method Room Air MDM MDM MDM Narrative Medical decision making narrative: HISTORY OF PRESENT ILLNESS: 34-year-old female presents concern for syncope x 2. Per EMS patient was in SVTen route which aborted after vagal maneuvers. The patient states this occurred approximately 4 hours prior to arrival. She states she felt her heart racing and chest tightness and then lost consciousness. She denies any recent vomiting, diarrhea. Denies recent bleeding diathesis. Denies shortness of breath, cough feverchills. Denies leg swelling. The patient denies recent surgery in the last 4 weeks or immobilization in the last 3 days, denies previous diagnosis of DVT or PE, hemoptysis, unilateral leg swelling or malignancy with treatment the last 6 months or palliative. No estrogen use noted. REVIEW OF SYSTEMS: Pertinent positives: Palpitations, chest tightness Pertinent negatives: As per HPI PHYSICAL EXAM: Nursing triage notes reviewed, Vital signs reviewed Constitutional: please see mdm HENT: MMM Eyes: Pupils equal round and reactive to light, Extraocular muscles intact Neck: No stridor, no JVD, full neck ROM Lungs: Clear to auscultation, No wheezing or rales. No increased work of breathing, no conversational dyspnea, no accessory muscle use, no nasal flaring. No respiratory distress noted Heart: Regular rate and rhythm, No murmurs, No rubs and No gallops, 2+ distal pulses (radial, femoral, posterior tibial) in all extremities Abdomen: Soft, there is no tenderness, rigidity, rebound or guarding, no obviousperitoneal signs, no palpable pulsatile abdominal masses, no auscultated abdominal bruit : No CVAT Extremities: No edema Neuro: No new focal neurological deficits, cranial nerves II through XII intact,5/5 strength in allpresent extremities. Intact sensation to light touch in all present extremities, 2+ reflexes bilateral patella tendons. Skin: No rash or lesions noted MEDICAL DECISION MAKING: Chief Complaint: syncope External records reviewed: Reviewed prior cardiovascular testing Factors affecting care: Syncope, hypertension, obesity, HOSEA, palpitations, SVT Social determinants of health: Denies cocaine or methamphetamine abuse History obtained from others: Consults: none MDM Narrative: The patient was initially hemodynamically stable, afebrile and nontoxic- appearing. Exam without focal cardiopulmonary abnormality I considered the following differential diagnosis: Arrhythmia, anemia, electrolyte disturbance, PE,pneumothorax ALL IMAGES (IF OBTAINED) HAVE BEEN PERSONALLY REVIEWED AND INTERPRETED BY MYSELF. EKG with sinus tachycardia rate of 104, normal axis, normal intervals, no obvious STEMI, no sign ofWPW, ARVD, Brugada syndrome, no stigmata of VTE or pericarditis noted CBC with mild (likely reactive), no anemia, no thrombocytopenia BMP without evidence of significant electrolyte abnormalities, no anion gap, no acute kidney injury. High-sensitivity troponin is negative, no evidence of myocardial ischemia I have personally reviewed the patient's chest x-ray. Chest x-ray is unremarkable for pulmonary edema, pneumothorax, pneumonia or focal cardiopulmonary abnormality. Upon reassessment patient remained hemodynamically stable. 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 She likely suffered from a syncopal event from SVT. No indication for admission at this time. No suspicion for myocardial schema as precipitating cause given lackof chest pain negative high-sensitivity troponin. Encouraged outpatient follow-up. Strict return precautions were discussed. The patient and/or family, caregivers express understanding. The patient and/orfamily, caregivers agrees with the plan. Shared decision making: I will have a discussion with the patient and or visitors regarding risk/benefits of further testing or admission. They will be made aware of of the risk/benefits inherent in this decision they will be given the opportunity to voice understanding. Total critical care time today provided was at least 0 minutes. This excludes separately billable procedures. Critical care time (if documented) is secondary to the patient having high probability ofclinically significant/life threatening deterioration in the patient's condition which required my urgent intervention. Impression: 1. SVT 2. Syncope Dispo: Discharge home This note was generated with [employer] dictation software. It may contain incorrectwords, spelling, and punctuation that were not noted in review of the chart prior to signing. Lab Data Labs: Laboratory Results - last 24 hr 12/03/24 20:38 WBC 11.4 H RBC 5.13 Hgb 13.0 Hct 40.0 MCV 78.0 L MCH 25.3 L MCHC 32.5 RDW Std Deviation 43.2 RDW Coeff of Remigio 15.2 H Plt Count 230 MPV 11.8 Immature Gran % (Auto) 0.300 Neut % (Auto) 64.4 Lymph % (Auto) 25.9 Piute % (Auto) 6.9 Eos % (Auto) 2.1 Baso % (Auto) 0.4 Absolute Neuts (auto) 7.3 Absolute Lymphs (auto) 2.94 Nucleated RBC % 0.2 Sodium 138 Potassium 4.2 Chloride 103 Carbon Dioxide 23.7 Anion Gap 12 BUN 12 Creatinine 0.73 Estim Creat Clear Calc 172.07 Est GFR (MDRD) Non-Af 112 BUN/Creatinine Ratio 17.1 Glucose 98 Calcium 9.0 Troponin T High Sens < 6 Radiography Diagnostic Testing: Clinical Impression(s) from Imaging Studies Chest X-Ray 12/03/24 21:03 IMPRESSION: No Acute Findings. Reading [facility] Discharge Plan Triage Chief Complaint: Syncope ED Provider: Silvano Perez Dx/Rx/DC Orders Prescriptions: No Action aspirin 81 mg tablet,chewable 81 mg PO DAILY levothyroxine [Synthroid] 50 mcg tablet 50 mcg PO DAILY ascorbic acid (vitamin C) 500 mg tablet 500 mg PO DAILY cholecalciferol (vitamin D3) 25 mcg (1,000 unit) tablet 25 mcg PO DAILY albuterol sulfate 90 mcg/actuation HFA aerosol inhaler 1 inh inhalation ONCE PRN metoprolol tartrate 25 mg tablet 25 mg PO BID Qty: 180 3RF amlodipine [Norvasc] 5 mg tablet 5 mg PO QDAY Qty: 90 3RF gabapentin 100 mg capsule 100 mg PO DAILY PRN (Reason: pain) methocarbamol 500 mg tablet 500 mg PO Q6H PRN (Reason: pain) ondansetron HCl 8 mg tablet PO lisinopril 20 mg tablet 20 mg PO BID Primary Care Provider: Mega Weeks I Referrals: [facility],Out of [Non-Staff] - Print Language: [place] What to do if you have Problems For any increased pain, shortness of breath, bleeding, nausea or vomiting, chestpain, or any unexpected problems, contact your Primary Care Provider. Call [facility] ([phone]) or report tothe closest Emergency Room. Call 911 if necessary. 12/03/241 Cosigner Signature (if applicable): CC: Dr. Mega Weeks MD ~ Signed [facility]03-26-2025 Radiology Diagnostic study note [facility] Imaging Services [address] [place], [place] [address] Chest 1 View (Portable) MR#: [id number] Acct: [id number] Name: AMBIKA BROWN Rep #: [id number] : 1990 F 34 From: Radha Moses MD PCP: OUT OF [facility] DOCTOR Status: PRE ER Study:Chest 1 View (Portable) Date of Exam: 12/03/24 Exam# [id number] Ordering Dr: Devorah Perez DO PROCEDURE: CHEST 1 VIEW (PORTABLE) 12/03/2024 REASON FOR EXAM: 34-year-old female, chest pain, syncope, SVT. TECHNIQUE: Frontal view of the chest. COMPARISON: CTA chest 09/17/2024. FINDINGS: Hardware: None. Heart: The heart size is normal. Lungs: No focal consolidation, pleural effusion or pneumothorax. Bones: The bones are unremarkable. RAD/Chest 1 View (Portable) IMPRESSION: No Acute Findings. Reading Location: [facility] CC: Dr. Silvano Perez DO ~ 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: Signed [facility]03-26-2025 Discharge summary Author Silvano Perez [facility] Note Date/Time December 03, 2024 11: 16pm [facility] Medical Records Department [address] [place] [address] Emergency Department Summary 12/03/24 MR#: [id number] Acct: [id number] Name: AMBIKA BROWN Rep #:[id number] : 1990 34 From: Silvano Newberry PCP: Dr. Mega Weeks MD Status:REG ER Location: ED ADDENDUM by Dr. Silvano Perez DO on 12/03/24 at 2315 Of note prior to discharge the patient noted she still felt like her heart may be racing. 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 Discussed the case with cardiology. Spoke with Dr. Conrad. Given the patient's stable vitals, negative workup, nonischemic non-arrhythmogenic EKG, negative troponin, normal electrolytes patient did not require observation. Recommended close outpatient follow-up. The patient has an appointment with electrophysiology in the coming weeks. Strict return precautions were discussed. 12/03/24 2315<Electronically signed by Silvano Perez DO> Cosigner Signature (if applicable): cc: Dr. Mega Weeks MD ~* Signed HPI History of Present Illness Chief Complaint: Syncope PFSH PFS Medical History Hypothyroidism Pancreatitis Cholecystectomy planned Implantable loop recorder present SVT (supraventricular tachycardia) History of lupus anticoagulant disorder History of asthma Insulin resistance Migraines Home Medications ?Medication ?Instructions ?Recorded ?Last Taken ?Type levothyroxine 50 mcg tablet 50 mcg PO DAILY 12/05/22 0 04/10/23 History (Synthroid) ascorbic acid (vitamin C) 500 mg 500 mg PO DAILY 03/05 Unknown History tablet aspirin 81 mg chewable tablet 81 mg PO DAILY 03/05/24 Unknown History cholecalciferol (vitamin D3) 25 25 mcg PO DAILY Unknown History mcg (1,000 unit) tablet gabapentin 100 mg capsule 100 mg PO DAILY PRN pain 05/04 Unknown History lisinopril 20 mg tablet 20 mg PO BID 09/17/24 Unknow n History methocarbamol 500 mg tablet 500 mg PO Q6H PRN pain 05/04 Unknown History ondansetron HCl 8 mg tablet mg PO 09/17/24 Unknown His tory albuterol sulfate 90 mcg/actuation 1 inh inhalation ON CE PRN 11/18/24 Unknown History aerosol inhaler amlodipine 5 mg tablet (Norvasc) 5 mg PO QDAY #90 tabs 11/18/24 Unknown Rx metoprolol tartrate 25 mg tablet 25 mg PO BID #180 tab s 11/18/24 Unknown Rx Allergy/AdvReac Type Severity Reaction Status Date / Time diphenhydramine (From Allergy Mild Chest Verified 11/18/24 09:59 Benadryl) tightness prochlorperazine (From Allergy Other Verified 11/18/24 09:59 Compazine) Family History Mother Cancer Thyroid disorder Father Heart disease Early 50s Surgical History History of section History of electrophysiologic study (02/13/22) History of tonsillectomy History of cholecystectomy Social History household members: spouse Smoking Status: Never smoker alcohol intake: never substance use type: does not use caffeine: Yes Type: coffee Number of servings: 2 EXAM Physical Exam Const Vital Signs: 12/03/24 20:22 12/03/24 20:28 12/03/24 20:53 Temperature 98.1 F Temperature Source Oral Pulse Rate 94 Respiratory Rate 19 H Respiratory Effort Normal Respiratory Pattern Normal Blood Pressure 142/78 H Blood Pressure Mean 99 Pulse Ox 95 Oxygen Delivery Method Room Air Room Air 12/03/24 22:21 Temperature Temperature Source Pulse Rate 103 H Respiratory Rate 21 H Respiratory Effort Respiratory Pattern Blood Pressure 155/83 H Blood Pressure Mean 107 Pulse Ox 96 Oxygen Delivery Method Room Air MDM MDM MDM Narrative Medical decision making narrative: HISTORY OF PRESENT ILLNESS: 34-year-old female presents concern for syncope x 2. Per EMS patient was in SVTen route which aborted after vagal maneuvers. The patient states this occurred approximately 4 hours prior to arrival. She states she felt her heart racing and chest tightness and then lost consciousness. She denies any recent vomiting, diarrhea. Denies recent bleeding diathesis. Denies shortness of breath, cough fever chills. Denies leg swelling. The patient denies recent surgery in the last 4 weeks or immobilization in the last 3 days, denies previous diagnosis of DVT or PE, hemoptysis, unilateral leg swelling or malignancy with treatment the last 6 months or palliative. No estrogen use noted. REVIEW OF SYSTEMS: Pertinent positives: Palpitations, chest tightness Pertinent negatives: As per HPI PHYSICAL EXAM: Nursing triage notes reviewed, Vital signs reviewed Constitutional: please see [facility] HENT: MMM Eyes: Pupils equal round and reactive to light, Extraocular muscles intact Neck: No stridor, no JVD, full neck ROM Lungs: Clear to auscultation, No wheezing or rales. No increased work of breathing, no conversational dyspnea, no accessory muscle use, no nasal flaring. No respiratory distress noted Heart: Regular rate and rhythm, No murmurs, No rubs and No gallops, 2+ distal pulses (radial, femoral, posterior tibial) in all extremities Abdomen: Soft, there is no tenderness, rigidity, rebound or guarding, no obviousperitoneal signs, no palpable pulsatile abdominal masses, no auscultated abdominal bruit : No CVAT Extremities: No edema Neuro: No new focal neurological deficits, cranial nerves II through XII intact,5/5 strength in all present extremities. Intact sensation to light touch in all present extremities, 2+ reflexes bilateral patella tendons. Skin: No rash or lesions noted MEDICAL DECISION MAKING: Chief Complaint: syncope External records reviewed: Reviewed prior cardiovascular testing Factors affecting care: Syncope, hypertension, obesity, HOSEA, palpitations, SVT Social determinants of health: Denies cocaine or methamphetamine abuse History obtained from others: Consults: none [facility] Narrative: The patient was initially hemodynamically stable, afebrile and nontoxic- appearing. Exam without focal cardiopulmonary abnormality I considered the following differential diagnosis: Arrhythmia, anemia, electrolyte disturbance, PE, pneumothorax ALL IMAGES (IF OBTAINED) HAVE BEEN PERSONALLY REVIEWED AND INTERPRETED BY MYSELF. EKG with sinus tachycardia rate of 104, normal axis, normal intervals, no obvious STEMI, no sign of WPW, ARVD, Brugada syndrome, no stigmata of VTE or pericarditis noted CBC with mild (likely reactive), no anemia, no thrombocytopenia BMP without evidence of significant electrolyte abnormalities, no anion gap, no acute kidney injury. High-sensitivity troponin is negative, no evidence of myocardial ischemia I have personally reviewed the patient's chest x-ray. Chest x-ray is unremarkable for pulmonary edema, pneumothorax, pneumonia or focal cardiopulmonary abnormality. Upon reassessment patient remained hemodynamically stable. 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 She likely suffered from a syncopal event from SVT. No indication for admission at this time. No suspicion for myocardial schema as precipitating cause given lack of chest pain negative high-sensitivity troponin. Encouraged outpatient follow-up. Strict return precautions were discussed. The patient and/or family, caregivers express understanding. The patient and/orfamily, caregivers agrees with the plan. Shared decision making: I will have a discussion with the patient and or visitors regarding risk/benefits of further testing or admission. They will be made aware of of the risk/benefits inherent in this decision they will be given the opportunity to voice understanding. Total critical care time today provided was at least 0 minutes. This excludes separately billable procedures. Critical care time (if documented) is secondary to the patient having high probability of clinically significant/life threatening deterioration in the patient's condition which required my urgent intervention. Impression: 1. SVT 2. Syncope Dispo: Discharge home This note was generated with [employer] dictation software. It may contain incorrectwords, spelling, and punctuation that were not noted in review of the chart prior to signing. Lab Data Labs: Laboratory Results - last 24 hr 12/03/24 20:38 WBC 11.4 H RBC 5.13 Hgb 13.0 Hct 40.0 MCV 78.0 L MCH 25.3 L MCHC 32.5 RDW Std Deviation 43.2 RDW Coeff of Remigio 15.2 H Plt Count 230 MPV 11.8 Immature Gran % (Auto) 0.300 Neut % (Auto) 64.4 Lymph % (Auto) 25.9 Piute % (Auto) 6.9 Eos % (Auto) 2.1 Baso % (Auto) 0.4 Absolute Neuts (auto) 7.3 Absolute Lymphs (auto) 2.94 Nucleated RBC % 0.2 Sodium 138 Potassium 4.2 Chloride 103 Carbon Dioxide 23.7 Anion Gap 12 BUN 12 Creatinine 0.73 Estim Creat Clear Calc 172.07 Est GFR (MDRD) Non-Af 112 BUN/Creatinine Ratio 17.1 Glucose 98 Calcium 9.0 Troponin T High Sens < 6 Radiography Diagnostic Testing: Clinical Impression(s) from Imaging Studies Chest X-Ray 12/03/24 21:03 IMPRESSION: No Acute Findings. Reading Location: [facility] Discharge Plan Triage Chief Complaint: Syncope ED Provider: Silvano Perez Dx/Rx/DC Orders Prescriptions: No Action aspirin 81 mg tablet,chewable 81 mg PO DAILY levothyroxine [Synthroid] 50 mcg tablet 50 mcg PO DAILY ascorbic acid (vitamin C) 500 mg tablet 500 mg PO DAILY cholecalciferol (vitamin D3) 25 mcg (1,000 unit) tablet 25 mcg PO DAILY albuterol sulfate 90 mcg/actuation HFA aerosol inhaler 1 inh inhalation ONCE PRN metoprolol tartrate 25 mg tablet 25 mg PO BID Qty: 180 3RF amlodipine [Norvasc] 5 mg tablet 5 mg PO QDAY Qty: 90 3RF gabapentin 100 mg capsule 100 mg PO DAILY PRN (Reason: pain) methocarbamol 500 mg tablet 500 mg PO Q6H PRN (Reason: pain) ondansetron HCl 8 mg tablet PO lisinopril 20 mg tablet 20 mg PO BID Primary Care Provider: Mega Weeks I Referrals: [facility],Out of [Non-Staff] - Print Language: [place] What to do if you have Problems For any increased pain, shortness of breath, bleeding, nausea or vomiting, chestpain, or any unexpected problems, contact your Primary Care Provider. Call [facility] ([phone]) or report to the closest Emergency Room. Call 911 if necessary. 12/03/242240 <Electronically signed by Silvano Perez DO> Cosigner Signature (if applicable): CC: Dr. Mega Weeks MD ~ Signed [facility] Work Phone: 1(452) 348-743403-11-2025 Evaluation note* Diagnosis Onset Date Resolution Status Admit Date HTN (hypertension), benign acute November 18, 2024 9:50am Implantable loop recorder present acute November 18, 2024 9:50am SVT (supraventricular tachycardia) acute November 18, 2024 9:50am Ventricular tachycardia acute M 2024 9:50am [facility] Work Phone: 1(115) 357-474203-11-2025 Evaluation note* Diagnosis Onset Date Resolution Status Admit Date Implantable loop recorder present acute November 18, 2024 9:50am SVT (supraventricular tachycardia) acute November 18, 2024 9:50am Ventricular tachycardia acute M arch 2024 9:50am HTN (hypertension), benign inactive November 18, 2024 9:50am SVT (supraventricular tachycardia) acute January 08, 2025 1: 47pm HTN (hypertension), benign inactive January 08, 2025 1:47pm Arrhythmia acute January 11, 2025 4:03pm Palpitations acute January 11 4:03pm SVT (supraventricular tachycardia) acute January 11, 2025 4: 03pm Ventricular tachycardia acute M 2024 4:03pm Near syncope resolved January 11 4:03pm [facility] Work Phone: 1(664) 321-245201-08-2025 History of Present illness Narrative* Aundrea Anderson RT([place]) - 09/17/2024 3:20 PM EST Radiology Service Progress Note PATIENT NAME: Ambika Brown DATE OF SERVICE: September 17, 2024 TIME: 3:20 PM PATIENT IDENTITY VERIFICATION COMPLETED USING TWO (2) IDENTIFIERS: Name and Date of confirmedby patient verbally. FALL SCREENING: Has the patient had 2 falls in the last year or 1 fall with injury or currently using an Ambulatory Assistive Device (Walker, Cane, Wheelchair, Crutches, etc.)? No PATIENT GENDER DATA: Female. status: : No status: NO. PATIENT RELEVANT IMPLANT DATA REVIEWED: Not Applicable PATIENT PRESENTS WITH AN IMPLANTABLE OR ATTACHED SENIOR NETWORK ADMINISTRATOR: No RADIOLOGY DEPARTMENT: General X-ray: Exam(s) Completed: Chest X-Ray PERIPHERAL IV DATA: Not applicable SIGNED BY: RT Alysha([place]) September 17, 2024 3:20 PM documented in this [facility] NoteHNO ID: [id number] Author: MIQUEL, AUNDREA, RT(R) Service: Radiology Author Type: Technologist Type: Progress Notes Filed: 09/17/2024 15:27 Note Text: Radiology Service Progress Note PATIENT NAME: Ambika Brown DATE OF SERVICE: September 17, 2024 TIME: 3:20 PM PATIENT IDENTITY VERIFICATION COMPLETED USING TWO (2) IDENTIFIERS: Name and Date of confirmed by patient verbally. FALL SCREENING: Has the patient had 2 falls in the last year or 1 fall with injury or currently using an Ambulatory Assistive Device (Walker, Cane, Wheelchair, Crutches, etc.)? No PATIENT GENDER DATA: Female. status: : No status: NO. PATIENT RELEVANT IMPLANT DATA REVIEWED: Not Applicable PATIENT PRESENTS WITH AN IMPLANTABLE OR ATTACHED SENIOR NETWORK ADMINISTRATOR: No RADIOLOGY DEPARTMENT: General X-ray: Exam(s) Completed: Chest X-Ray PERIPHERAL IV DATA: Not applicable SIGNED BY: RT Alysha(R) September 17, 2024 3:20 [facility]01-08-2025 NoteHNO ID: [id number] Author: CECIL HAHN APRN.SCHEDULE CHECKER Service: ? Author Type: Nurse Practitioner Type: Progress Notes Filed: 09/17/2024 15:45 Note Text: Subjective HPI Nontoxic-appearing female presents urgent care chief complaint cough shortness of breath chest discomfort. Patient states has had a sore throat and chest congestion. Presents today for evaluation. History of asthma. Has used asthma medications does not help. States some shortness of breath with walking. 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 Denies any fevers vomiting abdominal pain. Denies chance . Past medical history prescription medications allergies reviewed. .Patient presents with: Chest Congestion: Chest pain, sob x 5 days PAST MEDICAL HISTORY Diagnosis Date Asthma Chronic hypertension Clotting disorder (HCC) Fibromyalgia GERD (gastroesophageal reflux disease) Gestational diabetes Hiatal hernia Insulin resistance Lupus anticoagulant disorder (HCC) Migraines Nonsustained ventricular tachycardia (HCC) Obesity, Class III, BMI >= 40 07/15/2021 Palpitations Paroxysmal supraventricular tachycardia (HCC) Pre-eclampsia Syncope Thyroid disease PAST SURGICAL HISTORY Procedure Laterality Date DELIVERY ONLY 05/09/2023 CHOLECYSTECTOMY 2014 DANDC, DIAG AND/OR THERAPEUTIC 2018 EP STUDY 02/13/2022 comprehensive EP study; normal study, no accessory pathways; +dual AV azra pathways but no inducible SVT; [facility] Dr. Rock ORAL SURGERY PROCEDURE 2009 wisdom teeth TONSILLECTOMY HX 2005 ALLERGIES Prochlorperazine and Diphenhydramine MEDICATIONS methocarbamol (ROBAXIN) 500 mg tabletTake 1 tablet (500 mg) by mouth four times a day until headache free for 24 hours or take for full 5 days.Disp: 20 tabletRfl: 0 carvedilol (COREG) 3.125 mg tabletTake 3.125 mg by mouth two times a day with meals.Disp: Rfl: gabapentin (NEURONTIN) 100 mg capsuleTake 100 mg by mouth as needed.Disp: Rfl: ondansetron (ZOFRAN) 8 mg tabletFOR NAUSEA. Take on at onset of nausea or migraine,may repeat dose in 8 hours if needed.Disp: 20 tabletRfl: 4 naproxen (NAPROSYN) 500 mg tabletTake 1 tablet by mouth two times a day as needed for pain.Disp: 60 tabletRfl: 3 levothyroxine (SYNTHROID) 50 mcg tabletTake 50 mcg by mouth every morning. Take On an Empty StomachDisp: Rfl: aspirin, enteric coated (ASPIRIN, ENTERIC COATED) 81 mg EC tabletTake 81 mg by mouth daily at bedtime. Disp: Rfl: promethazine (PHENERGAN) 25 mg tablet1/2 to 1 po q8h prn headache or nauseaDisp: 45 tabletRfl: 11 cholecalciferol, vitamin D3, (VITAMIN D3 ORAL)Take by mouth.Disp: Rfl: PNV/FERROUS SULFATE/FOLIC ACID ( MULTIVIT WITH IRON ORAL)Take by mouth daily at bedtime. Disp: Rfl: albuterol HFA (PROVENTIL HFA, VENTOLIN HFA) 90 mcg/actuation inhalerInhale 2 Puffs as instructed every 4 hours as needed for Wheezing/Shortness of Breath.Disp: Rfl: norethindrone (AYGESTIN) 5 mg tablet1 tab 3x/day until bleeding stops. 1 tab 2x/day x 2 days. 1 tab daily x 5 daysDisp: 35 tabletRfl: 0 (Patient not taking: Reported on 09/17/2024) metoprolol tartrate, short acting, (LOPRESSOR) 50 mg tabletTake 1 tablet by mouth two times a day.Disp: 60 tabletRfl: 0 FAMILY HISTORY Problem Relation Age of Onset Hypothyroidism Mother Cancer Mother glioblastoma Hyperlipidemia Father Hypertension Father Asthma Sister Migraines Sister Bipolar disorder Sister No Known Problems Brother No Known Problems Brother Diabetes Maternal Grandmother Diabetes Maternal Grandfather Stroke Paternal Grandmother other (COVID-19) Paternal Grandmother Heart disease Paternal Grandfather had two open heart surgeries Social History Tobacco Use Smoking status: Never Smokeless tobacco: Never Vaping Use Vaping status: Never Used Substance Use Topics Alcohol use: Never Drug use: Never BP 128/88 Pulse 76 Temp 36.9 ?C (98.5 ?F) Resp 20 Wt (!) 154.8 kg (341 lb 4.4 oz) LMP 07/29/2024 (Approximate) SpO2 96% BMI 53.45 kg/m? Review of Systems Constitutional: Negative for chills, fever and malaise/fatigue. HENT: Negative for congestion, ear discharge, ear pain, sinus pain and sore throat. Eyes: Negative for blurred vision, pain, discharge and redness. Respiratory: Positive for cough and shortness of breath. Negative for hemoptysis, sputum production, wheezing and stridor. Cardiovascular: Positive for chest pain. Gastrointestinal: Negative for abdominal pain, diarrhea, nausea and vomiting. Musculoskeletal: Negative for myalgias. Skin: Negative for itching and rash. Neurological: Negative for dizziness and headaches. Objective Physical Exam Constitutional: General: She is not in acute distress. Appearance: She is not diaphoretic. HENT: Head: Normocephalic. Jaw: No trismus, tenderness, swelling or pain on movement. Mouth/Throat: Mouth: Mucous membranes are moist. Pharynx: Oropharynx is clear. U (more content not included)...[facility]01-08-2025 History of Present illness Narrative* Cecil Hahn, MARIA FERNANDA.SCHEDULE CHECKER - 09/17/2024 3:15 PM EST Subjective HPI Nontoxic-appearing female presents urgent care chief complaint cough shortness of breath chest discomfort. Patient states has had a sore throat and chest congestion. Presents today for evaluation. History of asthma. Has used asthma medications does not help. States some shortness of breath with walking. 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 Denies any fevers vomiting abdominal pain. Denies chance . Past medical history prescription medications allergies reviewed. .Patient presents with: Chest Congestion: Chest pain, sob x 5 days PAST MEDICAL HISTORY Diagnosis Date Asthma Chronic hypertension Clotting disorder (HCC) Fibromyalgia GERD (gastroesophageal reflux disease) Gestational diabetes Hiatal hernia Insulin resistance Lupus anticoagulant disorder (HCC) Migraines Nonsustained ventricular tachycardia (HCC) Obesity, Class III, BMI >= 40 07/15/2021 Palpitations Paroxysmal supraventricular tachycardia (HCC) Pre-eclampsia Syncope Thyroid disease PAST SURGICAL HISTORY Procedure Laterality Date DELIVERY ONLY 05/09/2023 CHOLECYSTECTOMY 2014 D&C, DIAG AND/OR THERAPEUTIC 2018 EP STUDY 02/13/2022 comprehensive EP study; normal study, no accessory pathways; +dual AV azra pathways but no inducible SVT; [facility] Dr. Rock ORAL SURGERY PROCEDURE 2009 wisdom teeth TONSILLECTOMY HX 2004 ALLERGIES Prochlorperazine and Diphenhydramine MEDICATIONS methocarbamol (ROBAXIN) 500 mg tablet^Take 1 tablet (500 mg) by mouth four times a day until headache free for 24 hours or take for full 5 days.^Disp: 20 tablet^Rfl: 0 carvedilol (COREG) 3.125 mg tablet^Take 3.125 mg by mouth two times a day with meals.^Disp: ^Rfl: gabapentin (NEURONTIN) 100 mg capsule^Take 100 mg by mouth as needed.^Disp: ^Rfl: ondansetron (ZOFRAN) 8 mg tablet^FOR NAUSEA. Take on at onset of nausea or migraine,may repeat dosein 8 hours if needed.^Disp: 20 tablet^Rfl: 4 naproxen (NAPROSYN) 500 mg tablet^Take 1 tablet by mouth two times a day as needed for pain.^Disp: 60 tablet^Rfl: 3 levothyroxine (SYNTHROID) 50 mcg tablet^Take 50 mcg by mouth every morning. Take On an Empty Stomach^Disp: ^Rfl: aspirin, enteric coated (ASPIRIN, ENTERIC COATED) 81 mg EC tablet^Take 81 mg by mouth daily at bedtime. ^Disp: ^Rfl: promethazine (PHENERGAN) 25 mg tablet^1/2 to 1 po q8h prn headache or nausea^Disp: 45 tablet^Rfl: 11 cholecalciferol, vitamin D3, (VITAMIN D3 ORAL)^Take by mouth.^Disp: ^Rfl: PNV/FERROUS SULFATE/FOLIC ACID ( MULTIVIT WITH IRON ORAL)^Take by mouth daily at bedtime. ^Disp: ^Rfl: albuterol HFA (PROVENTIL HFA, VENTOLIN HFA) 90 mcg/actuation inhaler^Inhale 2 Puffs as instructed every 4 hours as needed for Wheezing/Shortness of Breath.^Disp: ^Rfl: norethindrone (AYGESTIN) 5 mg tablet^1 tab 3x/day until bleeding stops. 1 tab 2x/day x 2 days. 1 tab daily x 5 days^Disp: 35 tablet^Rfl: 0 (Patient not taking: Reported on 09/17/2024) metoprolol tartrate, short acting, (LOPRESSOR) 50 mg tablet^Take 1 tablet by mouth two times a day.^Disp: 60 tablet^Rfl: 0 FAMILY HISTORY Problem Relation Age of Onset Hypothyroidism Mother Cancer Mother glioblastoma Hyperlipidemia Father Hypertension Father Asthma Sister Migraines Sister Bipolar disorder Sister No Known Problems Brother No Known Problems Brother Diabetes Maternal Grandmother Diabetes Maternal Grandfather Stroke Paternal Grandmother other (COVID-19) Paternal Grandmother Heart disease Paternal Grandfather had two open heart surgeries Social History Tobacco Use Smoking status: Never Smokeless tobacco: Never Vaping Use Vaping status: Never Used Substance Use Topics Alcohol use: Never Drug use: Never BP 128/88 Pulse 76 Temp 36.9 C (98.5 F) Resp 20 Wt (!) 154.8 kg (341 lb 4.4 oz) LMP 07/29/2024 (Approximate) SpO2 96% BMI 53.45 kg/m Review of Systems Constitutional: Negative for chills, fever and malaise/fatigue. HENT: Negative for congestion, ear discharge, ear pain, sinus pain and sore throat. Eyes: Negative for blurred vision, pain, discharge and redness. Respiratory: Positive for cough and shortness of breath. Negative for hemoptysis, sputum production, wheezing and stridor. Cardiovascular: Positive for chest pain. Gastrointestinal: Negative for abdominal pain, diarrhea, nausea and vomiting. Musculoskeletal: Negative for myalgias. Skin: Negative for itching and rash. Neurological: Negative for dizziness and headaches. Objective Physical Exam Constitutional: General: She is not in acute distress. Appearance: She is not diaphoretic. HENT: Head: Normocephalic. Jaw: No trismus, tenderness, swelling or pain on movement. Mouth/Throat: Mouth: Mucous membranes are moist. Pharynx: Oropharynx is clear. Uvula midline. No pharyngeal swelling, oropharyngeal exudate, posterior oropharyngeal erythema or uvula swelling. Eyes: Conjunctiva/sclera: Conjunctivae normal. Pupils: Pupils are equal, round, and reactive to light. Cardiovascular: Rate and Rhythm: Normal rate and regular rhythm. Heart sounds: Normal heart sounds. Pulmonary: Effort: Pulmonary effort is normal. No tachypnea, accessory muscle usage or respiratory distress. Breath sounds: Normal breath sounds. No stridor. No wheezing, rhonchi or rales. Musculoskeletal: Cervical back: Normal range of motion and neck supple. No edema, erythema, rigidity or tenderness. No pain with movement. Normal range of motion. Lymphadenopathy: Cervical: No cervical adenopathy. Skin: General: Skin is warm and dry. Neurological: Mental Status: She is alert and oriented to person, place, and time. ASSESSMENT/PLAN: 1. Acute cough - ICD9: 786.2, ICD10: R05.1 (primary diagnosis) - XR CHEST 2V FRONTAL/LAT 2. Pleuritic pain - ICD9: 786.52, ICD10: R07.81 Chest x-ray unremarkable. Pleuritic pain accompanied by chest pain and shortness of breath. Hyper clinical state with lupus. Referred to ED. Cecil Hahn APRN.SCHEDULE CHECKER documented [facility] Instructions* Patient Instructions* Waleska Acevedo PA-C - 08/22/2024 10:46 AM EST Assessment: (G43.901) Status migrainosus (primary encounter diagnosis) Plan: methocarbamol (ROBAXIN) 500 mg tablet Plan: Ambika Brown is a 34 year old year old female, with a history of asthma, fibromyalgia, hiatal hernia, Lupus Anticoagulant disorder, PSVT, obesity, syncope, HTN, GERD, gestational diabetes, POTS, RLS and chronic migraines following up today for day 3 of infusions. Has tolerated infusions and seen sig nificant improvement with headaches severity. Provided patient with work excuse from Sunday- Sunday with her returning on Sunday. Follow up plan: Resume previous at home medications. -Start Robaxin burst extension of infusions. Can consider usage as migraine rescue if helpful -Recommend schedule I month postinfusion follow-up if headaches do not improve -Follow-up for Botox on 11/07 with [facility] Robaxin - 500 mg Take 1 tablet (500 mg) by mouth four times a day until headache free for 24 hours or take for 5 days. This has been prescribed for a limited time as bridge therapy to help you break this severe headache cycle. This is a muscle relaxer. Do not take any other muscle relaxers, triptans, OTC pain meds, or opioids while taking this medication. This medication may make you drowsy. Please do not drive or operate machinery while taking this medication. documented in this [facility]Children[facility]24 History of Present illness Narrative* Waleska Acevedo PA-C - 08/22/2024 10:00 AM EST Images from the original note were not included. [facility]fusion G[facility] Note Subjective: Ambika Brown is a 34 year old year old female presenting for day 3 of infusions. Has struggled since her last Botox treatment. LONG severity down to a 3/10. Therapy Plan: zofran dexamethasone magnesium robaxin valproate New health conditions since orders were placed: Yes elevated blood pressure medication started after day 1 of infusions. Cardiovascular risk factors: POTS, Lupus Anticoagulant disorder, PSVT, obesity, syncope, HTN, Triptan dose in the last 24 hours: No Last muscle relaxer dose: No Last NSAID dose: No Response to infusions: Patient tolerating infusion without side effects. and Headache improving. Current Preventative: Botox PREEMPT Protocol Current Abortive: naproxen, phenergan, gabapentin Labs: Latest Ref Rng & Units 04/30/2024 CBC WBC 3.70 - 11.00 k/uL 9.96 RBC 3.90 - 5.20 m/uL 5.37 Hemoglobin 11.5 - 15.5 g/dL 13.0 Hematocrit 36.0 - 46.0 % 41.6 MCV 80.0 - 100.0 fL 77.5 MCH 26.0 - 34.0 pg 24.2 MCHC 30.5 - 36.0 g/dL 31.3 RDW-CV 11.5 - 15.0 % 16.5 Platelet Count 150 - 400 k/uL 224 MPV 9.0 - 12.7 fL 10.5 Latest Ref Rng & Units 09/30/2023 CMP Sodium 136 - 145 mmol/L 141 Potassium 3.5 - 5.1 mmol/L 3.7 Chloride 98 - 107 mmol/L 103 CO2 21 - 32 mmol/L 29 Glucose 70 - 100 mg/dL 125 BUN 7 - 26 mg/dL 16 Creatinine 0.51 - 0.95 mg/dL 0.67 EGFR >=60 mL/min/1.73m 119 Protein, Total 6.0 - 8.5 g/dL 7.6 Albumin 3.2 - 5.0 g/dL 3.6 Calcium 8.5 - 10.5 mg/dL 10.0 Bilirubin, Total 0.2 - 1.0 mg/dL 0.4 AST 8 - 34 U/L 30 ALT 13 - 61 U/L 41 Alkaline Phosphatase 45 - 117 U/L 170 ALLERGIES Allergen Reactions Prochlorperazine Intolerance Compazine akathesia Diphenhydramine Intolerance Heart palpitations, anxiety Current Medications: methocarbamol (ROBAXIN) 500 mg tablet^Take 1 tablet (500 mg) by mouth four times a day until headache free for 24 hours or take for full 5 days.^Disp: 20 tablet^Rfl: 0 carvedilol (COREG) 3.125 mg tablet^Take 3.125 mg by mouth two times a day with meals.^Disp: ^Rfl: gabapentin (NEURONTIN) 100 mg capsule^Take 100 mg by mouth as needed.^Disp: ^Rfl: norethindrone (AYGESTIN) 5 mg tablet^1 tab 3x/day until bleeding stops. 1 tab 2x/day x 2 days. 1 tab daily x 5 days^Disp: 35 tablet^Rfl: 0 ondansetron (ZOFRAN) 8 mg tablet^FOR NAUSEA. Take on at onset of nausea or migraine,may repeat dosein 8 hours if needed.^Disp: 20 tablet^Rfl: 4 naproxen (NAPROSYN) 500 mg tablet^Take 1 tablet by mouth two times a day as needed for pain.^Disp: 60 tablet^Rfl: 3 metoprolol tartrate, short acting, (LOPRESSOR) 50 mg tablet^Take 1 tablet by mouth two times a day.^Disp: 60 tablet^Rfl: 0 levothyroxine (SYNTHROID) 50 mcg tablet^Take 50 mcg by mouth every morning. Take On an Empty Stomach^Disp: ^Rfl: aspirin, enteric coated (ASPIRIN, ENTERIC COATED) 81 mg EC tablet^Take 81 mg by mouth daily at bedtime. ^Disp: ^Rfl: promethazine (PHENERGAN) 25 mg tablet^1/2 to 1 po q8h prn headache or nausea^Disp: 45 tablet^Rfl: 11 cholecalciferol, vitamin D3, (VITAMIN D3 ORAL)^Take by mouth.^Disp: ^Rfl: PNV/FERROUS SULFATE/FOLIC ACID ( MULTIVIT WITH IRON ORAL)^Take by mouth daily at bedtime. ^Disp: ^Rfl: albuterol HFA (PROVENTIL HFA, VENTOLIN HFA) 90 mcg/actuation inhaler^Inhale 2 Puffs as instructed every 4 hours as needed for Wheezing/Shortness of Breath.^Disp: ^Rfl: Review of Systems: Review of system: Patient reports no change from the prior visit. Objective: VS: see infusion note for vital signs General: well appearing, in no acute distress, alert Neurological: Pain Behaviors: no pain behaviors observed Mental Status: Alert and oriented to person, place and time. Affect is normal and appropriate. Speech is spontaneous and fluent without dysarthria, normal in rate, volume and articulation, and clear,coherent, and relevant. 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 Attention span and concentration are excellent. Cranial Nerves: VII-face is symmetric without evidence of weakness. VIII-hearing intact. Assessment: (G43.901) Status migrainosus (primary encounter diagnosis) Plan: methocarbamol (ROBAXIN) 500 mg tablet Plan: Ambika Brown is a 34 year old year old female, with a history of asthma, fibromyalgia, hiatal hernia, Lupus Anticoagulant disorder, PSVT, obesity, syncope, HTN, GERD, gestational diabetes, POTS, RLS and chronic migraines following up today for day 3 of infusions. Has tolerated infusions and seen sig nificant improvement with headaches severity. Provided patient with work excuse from Sunday-Sundaywith her returning on Sunday. Follow up plan: Resume previous at home medications. -Start Robaxin burst extension of infusions. Can consider usage as migraine rescue if helpful -Recommend schedule I month postinfusion follow-up if headaches do not improve -Follow-up for Botox on 11/07 with [facility] Level of service: Est level 2 (10-19 min). Time spent 11 min on the day of service, which included preparing to see the patient, [id number] patient care, completing clinical documentation, obtaining and/or reviewing separately obtained history, performing a medically appropriate examination, counseling and educating the patient/family/caregiver, and ordering medications, tests, or procedures. Waleska Acevedo PA-C [facility] August 21, 2024 documented in this encounterChildren'S [facility]12-13-2024 NoteHNO ID: [id number] Author: WALESKA ACEVEDO PA-C Service: ? 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 Has struggled since her last Botox treatment. LONG severity down to a 3/10. Therapy Plan: zofran dexamethasone magnesium robaxin valproate New health conditions since orders were placed: Yes elevated blood pressure medication started after day 1 of infusions. Cardiovascular risk factors: POTS, Lupus Anticoagulant disorder, PSVT, obesity, syncope, HTN, Triptan dose in the last 24 hours: No Last muscle relaxer dose: No Last NSAID dose: No Response to infusions: Patient tolerating infusion without side effects. and Headache improving. Current Preventative: Botox PREEMPT Protocol Current Abortive: naproxen, phenergan, gabapentin Labs: Latest Ref Rng AND Units 04/30/2024 CBC WBC 3.70 - 11.00 k/uL 9.96 RBC 3.90 - 5.20 m/uL 5.37 Hemoglobin 11.5 - 15.5 g/dL 13.0 Hematocrit 36.0 - 46.0 % 41.6 MCV 80.0 - 100.0 fL 77.5 MCH 26.0 - 34.0 pg 24.2 MCHC 30.5 - 36.0 g/dL 31.3 RDW-CV 11.5 - 15.0 % 16.5 Platelet Count 150 - 400 k/uL 224 MPV 9.0 - 12.7 fL 10.5 Latest Ref Rng AND Units 09/30/2023 CMP Sodium 136 - 145 mmol/L 141 Potassium 3.5 - 5.1 mmol/L 3.7 Chloride 98 - 107 mmol/L 103 CO2 21 - 32 mmol/L 29 Glucose 70 - 100 mg/dL 125 BUN 7 - 26 mg/dL 16 Creatinine 0.51 - 0.95 mg/dL 0.67 EGFR >=60 mL/min/1.73m? 119 Protein, Total 6.0 - 8.5 g/dL 7.6 Albumin 3.2 - 5.0 g/dL 3.6 Calcium 8.5 - 10.5 mg/dL 10.0 Bilirubin, Total 0.2 - 1.0 mg/dL 0.4 AST 8 - 34 U/L 30 ALT 13 - 61 U/L 41 Alkaline Phosphatase 45 - 117 U/L 170 ALLERGIES Allergen Reactions Prochlorperazine Intolerance Compazine akathesia Diphenhydramine Intolerance Heart palpitations, anxiety Current Medications: methocarbamol (ROBAXIN) 500 mg tabletTake 1 tablet (500 mg) by mouth four times a day until headache free for 24 hours or take for full 5 days.Disp: 20 tabletRfl: 0 carvedilol (COREG) 3.125 mg tabletTake 3.125 mg by mouth two times a day with meals.Disp: Rfl: gabapentin (NEURONTIN) 100 mg capsuleTake 100 mg by mouth as needed.Disp: Rfl: norethindrone (AYGESTIN) 5 mg tablet1 tab 3x/day until bleeding stops. 1 tab 2x/day x 2 days. 1 tab daily x 5 daysDisp: 35 tabletRfl: 0 ondansetron (ZOFRAN) 8 mg tabletFOR NAUSEA. Take on at onset of nausea or migraine,may repeat dose in 8 hours if needed.Disp: 20 tabletRfl: 4 naproxen (NAPROSYN) 500 mg tabletTake 1 tablet by mouth two times a day as needed for pain.Disp: 60 tabletRfl: 3 metoprolol tartrate, short acting, (LOPRESSOR) 50 mg tabletTake 1 tablet by mouth two times a day.Disp: 60 tabletRfl: 0 levothyroxine (SYNTHROID) 50 mcg tabletTake 50 mcg by mouth every morning. Take On an Empty StomachDisp: Rfl: aspirin, enteric coated (ASPIRIN, ENTERIC COATED) 81 mg EC tabletTake 81 mg by mouth daily at bedtime. Disp: Rfl: promethazine (PHENERGAN) 25 mg tablet1/2 to 1 po q8h prn headache or nauseaDisp: 45 tabletRfl: 11 cholecalciferol, vitamin D3, (VITAMIN D3 ORAL)Take by mouth.Disp: Rfl: PNV/FERROUS SULFATE/FOLIC ACID ( MULTIVIT WITH IRON ORAL)Take by mouth daily at bedtime. Disp: Rfl: albuterol HFA (PROVENTIL HFA, VENTOLIN HFA) 90 mcg/actuation inhalerInhale 2 Puffs as instructed every 4 hours as needed for Wheezing/Shortness of Breath.Disp: Rfl: Review of Systems: Review of system: Patient reports no change from the prior visit. Objective: VS: see infusion note for vital signs General: well appearing, in no acute distress, alert Neurological: Pain Behaviors: no pain behaviors observed Mental Status: Alert and oriented to person, place and time. Affect is normal and appropriate. Speech is spontaneous and fluent without dysarthria, normal in rate, volume and articulation, and clear, coherent, and relevant. 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 Attention span and concentration are excellent. Cranial Nerves: VII-face is symmetric without evidence of weakness. VIII-hearing intact. Assessment: (G43.901) Status migrainosus (primary encounter diagnosis) Plan: methocarbamol (ROBAXIN) 500 mg tablet Plan: Ambika Brown is a 34 year old year old female, with a history of asthma, fibromyalgia, hiatal hernia, Lupus Anticoagulant disorder, PSVT, obesity, syncope, HTN, GERD, gestational diabetes, POTS, RLS and chronic migraines following up today for day 3 of infusions. Has tolerated infusions and seen significant improvement with headaches severity. Provided patient with work excuse from Sunday-Sunday with her returning on Sunday. Follow up plan: Resume previous at home medications. -Start Robaxin burst extension of infusions. Can consider usage as migraine rescue if helpful -Recommend (more content not included)...[facility]12[facility] NoteHNO ID: [id number] Author: GISELLE CALVO RN Service: ? Author Type: Registered Nurse Type: Progress Notes Filed: 08/22/2024 12:25 Note Text: 0921 Patient in for 3rd day of IV infusions. Patient rated headache 3/10. Patient stated no nausea and no dizziness. Patient educated on medications to be administered. Patient verbalized understanding and agreed to proceed with infusions. -pt drove herself Pt ordered Magnesium 1gm X2 doses due to fluid shortage 1210 Pts infusions complete. Pt tolerated infusion well. Pt rated headache 2/10. Pt stated no nausea and no dizziness. Pt discharged from treatment room. [facility]12-13-2024 History of Present illness Narrative* Giselle Calvo RN - 08/22/2024 9:18 AM EST 0921 Patient in for 3rd day of IV infusions. Patient rated headache 3/10. Patient stated no nausea and no dizziness. Patient educated on medications to be administered. Patient verbalized understanding and agreed to proceed with infusions. -pt drove herself Pt ordered Magnesium 1gm X2 doses due to fluid shortage 1210 Pts infusions complete. Pt tolerated infusion well. Pt rated headache 2/10. Pt stated no nausea and no dizziness. Pt discharged from treatment room. [facility] NoteHNO ID: [id number] Author: LEORA FUCHS RN Service: ? Author Type: Registered Nurse Type: Progress Notes Filed: 08/21/2024 12:36 Note Text: -0932- Patient in for day 2 of IV infusions. Patient rated headache 5/10. Patient stated no nausea and no dizziness. Patient educated on medications to be administered. Patient verbalized understanding and agreed to proceed with infusions. 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 She was prescribed Coreg BID. Stated she started last night. Did not take this AM yet due to not eating breakfast. Per patient she has an appointment to follow up with PCP this afternoon. -Pt ordered Magnesium 1 gram x2 doses due to fluid shortage. -After Robaxin completion patient reporting mild nausea. Patient declining PRN Zofran at this time. -1212- Pts infusions complete. Pt tolerated infusion well. Pt rated headache 5/10. Pt stated no nausea and no dizziness. Pt discharged from treatment room. [facility]12-12-20[facility] History of Present illness Narrative* Leora Fuchs RN - 08/21/2024 9:35 AM EST -0932- Patient in for day 2 of IV infusions. Patient rated headache 5/10. Patient stated no nausea and no dizziness. Patient educated on medications to be administered. Patient verbalized understanding and agreed to proceed with infusions. 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 She was prescribed Coreg BID. Stated she started last night. Did not take this AM yet due to not eating breakfast. Per patient she has an appointment to follow up with PCP this afternoon. -Pt ordered Magnesium 1 gram x2 doses due to fluid shortage. -After Robaxin completion patient reporting mild nausea. Patient declining PRN Zofran at this time. -1212- Pts infusions complete. Pt tolerated infusion well. Pt rated headache 5/10. Pt stated no nausea and no dizziness. Pt discharged from treatment room. [facility]24 NoteHNO ID: [id number] Author: LEORA FUCHS RN Service: ? Author Type: Registered Nurse Type: Progress Notes Filed: 08/20/2024 12:34 Note Text: 0826: Patient in for day 1 of IV infusions. Patient rated headache 7/10. Patient stated no nausea and no dizziness. Patient educated on medications to be administered. Patient verbalized understanding and agreed to proceed with infusions. 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 Pt reports it has been elevated since her headache started. Pt informed to follow up with her PCP/ Cardiology. Kandis Piña NP made aware of B/P. Per discussion Pt told to follow up with PCP/ Cardiology today. -Pt ordered Magnesium 1 gram x2 doses due to fluid shortage. 1119- Pts infusions complete. Pt tolerated infusion well. Pt rated headache 5/10. Pt stated no nausea and no dizziness. Pts blood pressure 119/74 after infusion. Kandis Piña NP made aware. Per LIP still follow up with PCP/ Cardiology today. Pt aware and agrees. Pt discharged from treatment room.[facility]12[facility]11-[facility] History of Present illness Narrative* Leora Fuchs RN - 08/20/2024 9:10 AM EST 0826: Patient in for day 1 of IV infusions. Patient rated headache 7/10. Patient stated no nausea and no dizziness. Patient educated on medications to be administered. Patient verbalized understanding and agreed to proceed with infusions. 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 Pt reports it has been elevated since her headache started. Pt informed to follow up with her PCP/ Cardiology. Kandis Piña NP made aware of B/P. Per discussion Pt told tofollow up with PCP/ Cardiology today. -Pt ordered Magnesium 1 gram x2 doses due to fluid shortage. 1119- Pts infusions complete. Pt tolerated infusion well. Pt rated headache 5/10. Pt stated no nausea and no dizziness. Pts blood pressure 119/74 after infusion. Kandis Piña NP made aware. Per LIP still follow up with PCP/ Cardiology today. Pt aware and agrees. Pt discharged from treatment room. documented in this [facility]Children[facility]24 NoteHNO ID: [id number] Author: HAILEY MARLOW PA-C Service: ? Author Type: Physician Oil Spraying Machine Operator Type: Progress Notes Filed: 08/19/2024 13:41 Note Text: [facility] - Virtual Visit Infusion Triage This visit was conducted as a virtual visit, with patient's permission, via Zoom. It required patient-provider interaction for the medical decision making as documented below. Patient stated name and Patient location [place] I have communicated my name and active licensure. The patient's identity and physical location were verified at the time of this visit. Either the patient or their legal telephone sales representative has been informed of the risks and benefits of -- and alternatives to -- treatment through a remote evaluation and consents to proceed with the evaluation remotely. HPI: Ambika Brown is a 34 year old year old female, with a history of asthma, fibromyalgia, hiatal hernia, Lupus Anticoagulant disorder, PSVT, obesity, syncope, HTN, GERD, gestational diabetes, POTS, RLS and chronic migraines following up today virtually to discuss infusion therapy. She was in the ED on 08/18/24 for high BP of 180/127 and migraine and received reglan, toradol, depakote, dexamethasone, magnesium, fluids and possible other meds per patient report. Had hemiplegic symptoms. Was discharged about 4:30am. Infusions helped bring it to a level 5/10. Date of last visit: 08/01/24 with Dalila Fernandez CNP Onset of current headache: 08/18/24 upon awakening What medications have you tried for this headache cycle: ED visit, [facility] New health events/diagnosis since last visit (AK/stroke/DM/HTN/etc): recent ED visit - will be being worked up for epilepsy Past infusion intolerances: last infusions were August of 2021 in which she received zofran, robaxin, valproate and 2g magnesium. Did well with this combination and tolerated well. Cannot do compazine or benadryl. Would prefer to avoid toradol. Ok with dexamethasone. Currently or : denies Current Preventative: Botox PREEMPT Protocol Current Abortive: naproxen, phenergan, gabapentin Labs to Review: Latest Ref Rng AND Units 09/30/2023 CMP Sodium 136 - 145 mmol/L 141 Potassium 3.5 - 5.1 mmol/L 3.7 Chloride 98 - 107 mmol/L 103 CO2 21 - 32 mmol/L 29 Glucose 70 - 100 mg/dL 125 BUN 7 - 26 mg/dL 16 Creatinine 0.51 - 0.95 mg/dL 0.67 EGFR >=60 mL/min/1.73m? 119 Protein, Total 6.0 - 8.5 g/dL 7.6 Albumin 3.2 - 5.0 g/dL 3.6 Calcium 8.5 - 10.5 mg/dL 10.0 Bilirubin, Total 0.2 - 1.0 mg/dL 0.4 AST 8 - 34 U/L 30 ALT 13 - 61 U/L 41 Alkaline Phosphatase 45 - 117 U/L 170 Latest Ref Rng AND Units 04/30/2024 CBC WBC 3.70 - 11.00 k/uL 9.96 RBC 3.90 - 5.20 m/uL 5.37 Hemoglobin 11.5 - 15.5 g/dL 13.0 Hematocrit 36.0 - 46.0 % 41.6 MCV 80.0 - 100.0 fL 77.5 MCH 26.0 - 34.0 pg 24.2 MCHC 30.5 - 36.0 g/dL 31.3 RDW-CV 11.5 - 15.0 % 16.5 Platelet Count 150 - 400 k/uL 224 MPV 9.0 - 12.7 fL 10.5 Analgesic Ketorolac (Toradol) Anti-Convulsant Divalproex sodium (Depakote) Gabapentin (Neurontin) Levetiracetam (Keppra) Topiramate (Topamax, Trokendi XL, Qudexy) Zonisamide (Zonegram) Anti-Depressant and Antipsychotic Fluoxetine (Prozac) Antiemetics Ondansetron Prochlorperazine Promethazine Anti-Migraine Dihydroergotamine (DHE-45, Migranal) Blood Pressure Nadolol (Corgard) Botulinum Toxin Onabotulinum Toxin A (Botox) Sleep Aids Melatonin Supplements Magnesium Other Medications Dexamethasone (Decadron) Over the Counter Medications Acetaminophen (Tylenol) Aspirin Ibuprofen (Advil, Motrin) Naproxen sodium (Aleve) PAST MEDICAL HISTORY Diagnosis Date Asthma Chronic hypertension Clotting disorder (HCC) Fibromyalgia GERD (gastroesophageal reflux disease) Gestational diabetes Hiatal hernia Insulin resistance Lupus anticoagulant disorder (HCC) Migraines Nonsustained ventricular tachycardia (HCC) Obesity, Class III, BMI >= 40 07/15/2021 Palpitations Paroxysmal supraventricular tachycardia (HCC) Pre-eclampsia Syncope Thyroid disease PAST SURGICAL HISTORY Procedure Laterality Date DELIVERY ONLY 05/09/2023 CHOLECYSTECTOMY 2013 DANDC, DIAG AND/OR THERAPEUTIC 2018 EP STUDY 02/13/2022 comprehensive EP study; normal study, no accessory pathways; +dual AV azra pathways but no inducible SVT; [facility] Dr. Rock ORAL SURGERY PROCEDURE 2009 wisdom teeth TONSILLECTOMY HX 2004 ALLERGIES Allergen Reactions Prochlorperazine Intolerance Compazine akathesia Diphenhydramine Intolerance Heart palpitations, anxiety Current Medications: norethindrone (AYGESTIN) 5 mg tablet1 tab 3x/day until bleeding stops. 1 tab 2x/day x 2 days. 1 tab daily x 5 daysDisp: 35 tabletRfl: 0 ondansetron (ZOFRAN) 8 mg tabletFOR NAUSEA. Take on at onset of nausea or migraine,may repeat dose in 8 hours if needed.Disp: 20 tabletRfl: 4 naproxen (NAPROSYN) 500 mg tabletTake 1 (more content not included)...[facility]12-10-2024 Telephone encounter Note* Telephone Encounter - Lakisha Pearce - 08/19/2024 10:56 AM EST Patient called and scheduled for triage today, 08/19. [facility] Miscellaneous Notes* Telephone Encounter - Lakisha Pearce - 08/19/2024 10:56 AM EST Patient called and scheduled for triage today, 08/19. * Telephone Encounter - Stephanie Araujo RN - 08/19/2024 9:02 AM EST Called patient to discuss: Initially went to ED for high blood pressure, 180/127. Migraine symptoms appeared/got worse as she was heading into ED. H/O hemiplegic migraines- symptoms are not new but she hasn't had one like this in many years. ED gave a few different med cocktails.. Reglan, Toradol, Depakote, magnesium, fluids, unable to remember other meds. Brought migraine down from 05/20 to 01/17. Pt wanting to receive 3-day infusions. Last botox 08/01. Stephanie Araujo RN * Telephone Encounter - RjTyesha - 08/19/2024 8:17 AM EST Call received for Dalila Fernandez APRN.KEVIN regarding Ambika Brown 1990. Caller: Self Patient Identified by Name and : Yes Was permission obtained from patient ? Yes Reason for Call: Symptoms Patient calling with complaints of: Pain 5, after ED Frequency: started yesterday morning as soon as she woke up. Location: left side of the face is numb and droopy, pressure all over, left side of body feels weaker, issues finding words Associated symptoms: light sensitivity, nausea Any medications tried for symptoms: Given 6 different different infusion (Depakote, Toradol, magnesium,can't remember the rest, with two things of fluid) Took Excedrin to get through the day, and liquid gel Advil Any recent change in medication or health: Stressed with balancing daily tasks, has been having anxiety states she's been in a fight or flight mood for the past 3-4 days. Any intervention that has helped in the past: Infusions and Botox Last Office Visit: Visit date not found Last Distance [facility] visit: Visit date not found Next scheduled appointment: Visit date not found Best number to reach caller: [phone] Best time to reach caller: ANY Is it OK to leave a detailed voice message? Yes Tyesha De La Rosa * Telephone Encounter - Kenneth Rivera - 08/19/2024 8:13 AM EST Patient was in ED. Needs to schedule infusions as soon as possible. She is also reaching out directly to her provider. [facility] Telephone encounter Note * Telephone Encounter - Stephanie Araujo RN - 08/19/2024 9:02 AM EST Called patient to discuss: Initially went to ED for high blood pressure, 180/127. Migraine symptoms appeared/got worse as she was heading into ED. H/O hemiplegic migraines- symptoms are not new but she hasn't had one like this in many years. ED gave a few different med cocktails.. Reglan, Toradol, Depakote, magnesium, fluids, unable to remember other meds. Brought migraine down from 05/20 to 01/17. Pt wanting to receive 3-day infusions. Last botox 08/01. Stephanie Araujo RN [facility]12[facility] Telephone encounter Note* Telephone Encounter - Tyesha De La Rosa - 08/19/2024 8:17 AM EST Call received for Dalila Fernandez APRN.SCHEDULE CHECKER regarding Ambika Brown 1990. Caller: Self Patient Identified by Name and : Yes Was permission obtained from patient ? Yes Reason for Call: Symptoms Patient calling with complaints of: Pain 5, after ED Frequency: started yesterday morning as soon as she woke up. Location: left side of the face is numb and droopy, pressure all over, left side of body feels weaker, issues finding words Associated symptoms: light sensitivity, nausea Any medications tried for symptoms: Given 6 different different infusion (Depakote, Toradol, magnesium,can't remember the rest, with two things of fluid) Took Excedrin to get through the day, and liquid gel Advil Any recent change in medication or health: Stressed with balancing daily tasks, has been having anxiety states she's been in a fight or flight mood for the past 3-4 days. Any intervention that has helped in the past: Infusions and Botox Last Office Visit: Visit date not found Last [facility] visit: Visit date not found Next scheduled appointment: Visit date not found Best number to reach caller: [phone] Best time to reach caller: ANY Is it OK to leave a detailed voice message? Yes Tyesha De La Rosa [facility]12-10-2024 Telephone encounter Note* Telephone Encounter - Kenneth Rivera - 08/19/2024 8:13 AM EST Patient was in ED. Needs to schedule infusions as soon as possible. She is also reaching out directly to her provider. [facility]11-22-2024 NoteHNO ID: [id number] Author: DALILA FERNANDEZ APRN.SCHEDULE CHECKER Service: ? Author Type: Nurse Practitioner Type: Progress Notes Filed: 08/01/2024 16:47 Note Text: [facility]ache [facility] Follow-up Visit Current Preventive: Botox Change needed for current preventive? No Current Abortive: Naproxen, Phenergan, gabapentin Change needed for current abortive? No Frequency of Abortive Use (per month): 10 Duration of headaches with treatment: 1 days (24 hours) Miscellaneous Patient Concerns: Will refer epilepsy for possible seizures Impression: Chronic migraine without aura, intractable, without status migrainosus (primary encounter diagnosis) Plan: Follow-Up Onabotulinum Toxin A (BotoxTM) for Migraine Indication: Chronic Intractable Migraine Treatment #: 16 Referral Expiration: 11/26/2024 Prior to the initiation of the FIRST treatment with Onabotulinum Toxin A, the patient reported the following average headache frequency over the past 3 MONTHS: Number of moderate-severe migraine days/month: 20 Number of mild migraine days/month: 10 Number of headache free days/month: 0 (0 headache-free hours) Migraine severity: 04/19 After treatment with Onabotulinum Toxin A: Number of moderate-severe migraine days/month: 10 Number of mild migraine days/month: 5 Number of headache free days/month: 15 (360 headache-free hours) Migraine severity: 03/19 Patient reduction in overall migraine days: Yes Patient reduction in moderate-severe migraine days: Yes Patient reduction of headache hours by 100 hours or more: Yes (reduction of 360 hours) Individual has obtained clinical benefit deemed significant by individual or prescriber (Y/N): Yes Patient's quality of life and ability to perform ADLs has improved (Y/N): Yes Side effects: none Wearing off: Yes - 10 weeks after treatment The patient has been assessed for disorders which could contribute to breathing or swallowing difficulty, and there is no contraindication with PREEMPT Botox. There is no documented allergic reaction/hypersensitivity to any botulinum toxin and there is no active infection at proposed injection site. HEADACHE SCORES: 02/26/2023 05/29/2023 11/23/2023 Headache Questions ER visits since last office visit: 2 0 1 Hospital stays since last office visit 1 0 0 Limited ADLs in the last month: 2 4 3 Days missed from work or school in the last month: 0 0 0 Days headache pain free in the last month: 15 10 8 Days per month with ALL of the following symptoms - decreased productivity, light sensitivity and nausea: 6 8 10 Initial improvement of headache after botox injection at last visit: Not applicable, I did not have a botox injection at my last visit Not applicable, I did not have a botox injection at my last visit Not applicable, I did not have a botox injection at my last visit PRN medication usage in the last month: 0 2 10 Patient impression of improvement since last visit: Much worse Much worse Very much worse 02/26/2023 05/29/2023 11/23/2023 HIT-6 HIT-6 62 (Severe impact) 67 (Severe impact) 64 (Severe impact) 02/26/2023 05/29/2023 11/23/2023 MARCIA - 2/7 SCORES MARCIA-2 Score 0 0 4 MARCIA-7 Score 10 02/26/2023 05/29/2023 11/23/2023 Migraine Specific QOL - Higher scores indicate better HRQL Role Function-Restrictive Transformed Score (range: 0-100) 68.57 40 48.57 Role Function-Preventive Transformed Score (range: 0-100) 90 40 80 Emotional Function Transformed Score (range: 0-100) 73.33 0 53.33 02/26/2023 05/29/2023 11/23/2023 PHQ-9 Score 4 13 3 BP 147/88 Pulse 102 Wt (!) 154.9 kg (341 lb 7.9 oz) LMP 07/29/2024 (Approximate) SpO2 96% BMI 53.49 kg/m? Patient name: Ambika Brown : 1990 ALLERGIES Allergen Reactions Prochlorperazine Intolerance Compazine akathesia Diphenhydramine Intolerance Heart palpitations, anxiety UNIVERSAL PROTOCOL / SAFETY CHECKLIST Procedure: Onabotulinum toxin A for migraine Informed Consent Consent Obtained: Written [place] Protocol A moment to CARE was completed SIGN IN Personnel directly involved with the procedure wore the appropriate PPE Special Equipment: N/A Patient/Surrogate Stated/Verified: Patient name, Date of , Relevant allergies and Intended procedure TIME OUT Intended patient and procedure match the source document(s) Consent documented and matches the intended procedure No relevant labs, photos, and/or imaging studies were applicable for review. No correct side/site applicable for marking and visibility. No medications required for procedure. No fire risk assessment and interventions applicable. No implant(s) inserted. SIGN OUT No specimen collected. No instruments, equipment or retained foreign bodies applicable. Post-procedure follow-up management communicated and Plan of Care Visit completed when applicable Written Consent Obtained: Written LOT #: [id number] Expiration Date: Month: 3 Year: 2026 Injection Sites Left (Units (more content not included)...[facility]11-22-2024 History of Present illness Narrative* Dalila Fernandez, MARIA FERNANDA.SCHEDULE CHECKER - 08/01/2024 4:06 PM EST Images from the original note were not included. [facility] Follow-up Visit Current Preventive: Botox Change needed for current preventive? No Current Abortive: Naproxen, Phenergan, gabapentin Change needed for current abortive? No Frequency of Abortive Use (per month): 10 Duration of headaches with treatment: 1 days (24 hours) Miscellaneous Patient Concerns: Will refer epilepsy for possible seizures Impression: Chronic migraine without aura, intractable, without status migrainosus (primary encounter diagnosis) Plan: Follow-Up Onabotulinum Toxin A (BotoxTM) for Migraine Indication: Chronic Intractable Migraine Treatment #: 16 Referral Expiration: 11/26/2024 Prior to the initiation of the FIRST treatment with Onabotulinum Toxin A, the patient reported the following average headache frequency over the past 3 MONTHS: Number of moderate-severe migraine days/month: 20 Number of mild migraine days/month: 10 Number of headache free days/month: 0 (0 headache-free hours) Migraine severity: 8/10 After treatment with Onabotulinum Toxin A: Number of moderate-severe migraine days/month: 10 Number of mild migraine days/month: 5 Number of headache free days/month: 15 (360 headache-free hours) Migraine severity: 7/10 Patient reduction in overall migraine days: Yes Patient reduction in moderate-severe migraine days: Yes Patient reduction of headache hours by 100 hours or more: Yes (reduction of 360 hours) Individual has obtained clinical benefit deemed significant by individual or prescriber (Y/N): Yes Patient's quality of life and ability to perform ADLs has improved (Y/N): Yes Side effects: none Wearing off: Yes - 10 weeks after treatment The patient has been assessed for disorders which could contribute to breathing or swallowing difficulty, and there is no contraindication with PREEMPT Botox. There is no documented allergic reaction/hypersensitivity to any botulinum toxin and there is no active infection at proposed injection site. HEADACHE SCORES: 02/26/2023 05/29/2023 11/23/2023 Headache Questions ER visits since last office visit: 2 0 1 Hospital stays since last office visit 1 0 0 Limited ADLs in the last month: 2 4 3 Days missed from work or school in the last month: 0 0 0 Days headache pain free in the last month: 15 10 8 Days per month with ALL of the following symptoms - decreased productivity, light sensitivity and nausea: 6 8 10 Initial improvement of headache after botox injection at last visit: Not applicable, I did not havea botox injection at my last visit Not applicable, I did not have a botox injection at my last visit Not applicable, I did not have a botox injection at my last visit PRN medication usage in the last month: 0 2 10 Patient impression of improvement since last visit: Much worse Much worse Very much worse 02/26/2023 05/29/2023 11/23/2023 HIT-6 HIT-6 62 (Severe impact) 67 (Severe impact) 64 (Severe impact) 02/26/2023 05/29/2023 11/23/2023 MARCIA - 2/7 SCORES MARCIA-2 Score 0 0 4 MARCIA-7 Score 10 02/26/2023 05/29/2023 11/23/2023 Migraine Specific QOL - Higher scores indicate better HRQL Role Function-Restrictive Transformed Score (range: 0-100) 68.57 40 48.57 Role Function-Preventive Transformed Score (range: 0-100) 90 40 80 Emotional Function Transformed Score (range: 0-100) 73.33 0 53.33 02/26/2023 05/29/2023 11/23/2023 PHQ-9 Score 4 13 3 BP 147/88 Pulse 102 Wt (!) 154.9 kg (341 lb 7.9 oz) LMP 07/29/2024 (Approximate) SpO2 96% BMI 53.49 kg/m Patient name: Ambika rBown : 1990 ALLERGIES Allergen Reactions Prochlorperazine Intolerance Compazine akathesia Diphenhydramine Intolerance Heart palpitations, anxiety UNIVERSAL PROTOCOL / SAFETY CHECKLIST Procedure: Onabotulinum toxin A for migraine Informed Consent Consent Obtained: Written [place] Protocol A moment to CARE was completed SIGN IN Personnel directly involved with the procedure wore the appropriate PPE Special Equipment: N/A Patient/Surrogate Stated/Verified: Patient name, Date of , Relevant allergies and Intended procedure TIME OUT Intended patient and procedure match the source document(s) Consent documented and matches the intended procedure No relevant labs, photos, and/or imaging studies were applicable for review. No correct side/site applicable for marking and visibility. No medications required for procedure. No fire risk assessment and interventions applicable. No implant(s) inserted. SIGN OUT No specimen collected. No instruments, equipment or retained foreign bodies applicable. Post-procedure follow-up management communicated and Plan of Care Visit completed when applicable Written Consent Obtained: Written LOT #: [id number] Expiration Date: Month: 3 Year: 2026 Injection Sites Left (Units) Left (Sites) Right (Units) Right (Sites) TOTAL (Units) Insulation Cupola Operator 5 1 5 1 10 Procerus Units: 5 Sites: 1 5 Frontalis 10 2 10 2 20 Temporalis 20 4 20 4 40 Occipitalis 15 3 15 3 30 Cervical PSP 10 2 10 2 20 Trapezius 15 3 15 3 30 Total Units used: 155 Total Units wasted: 45 Prior Therapies Duration of Use Dose Side effect Analgesic Ketorolac (Toradol) Anti-Convulsant Divalproex sodium (Depakote) Gabapentin (Neurontin) Levetiracetam (Keppra) Topiramate (Topamax, Trokendi XL, Qudexy) Zonisamide (Zonegram) Anti-Depressant and Antipsychotic Fluoxetine (Prozac) Antiemetics Ondansetron Prochlorperazine Promethazine Anti-Migraine Dihydroergotamine (DHE-45, Migranal) Blood Pressure Nadolol (Corgard) Botulinum Toxin Onabotulinum Toxin A (Botox) Sleep Aids Melatonin Supplements Magnesium Other Medications Dexamethasone (Decadron) Over the Counter Medications Acetaminophen (Tylenol) Aspirin Ibuprofen (Advil, Motrin) Naproxen sodium (Aleve) Dalila Fernandez APRN.SCHEDULE CHECKER Answers submitted by the patient for this visit: Headache Questionnaire (Submitted on 08/01/2024) How many days of work or school have you missed due to headaches in the last month? : 0 In the last month, how many headache days did you experience ALL of the following symptoms: decreased productivity, light sensitivity and nausea?: 18 How many days have you been completely free of headache pain in the last month? : 5 documented in this [facility]24 NoteHNO ID: [id number] Author: BENNY BONDS MD Service: ? Author Type: Physician Type: Progress Notes Filed: 05/19/2024 11:14 Note Text: Ambika Brown is a 34 year old female who presented for emr specialist ultrasound today. Encounter Diagnosis ICD-10-CM 1. Abnormal uterine bleeding N93.9 Please see report under imaging tab. Benny Bonds MD May 19, 2024 11:11 [facility]09-09-2024 History of Present illness Narrative* Benny Bonds MD - 05/19/2024 11:11 AM EDT Ambika Brown is a 34 year old female who presented for emr specialist ultrasound today. Encounter Diagnosis ICD-10-CM 1. Abnormal uterine bleeding N93.9 Please see report under imaging tab. Benny Bonds MD May 19, 2024 11:11 AM documented in this encounterChildren[facility]08-22-2024 History of Present illness Narrative* Dalila Fernandez, FORMULA CHECKER.SCHEDULE CHECKER - 05/01/2024 1:30 PM EDT Images from the original note were not included. Headache Center Follow-up Visit Current Preventive: Botox Change needed for current preventive? No Current Abortive: Naproxen, Phenergan Change needed for current abortive? No Impression: Chronic migraine without aura, intractable, without status migrainosus (primary encounter diagnosis) Plan: Follow-Up Onabotulinum Toxin A (BotoxTM) for Migraine Indication: Chronic Intractable Migraine Treatment #: 16 Referral Expiration: 11/26/2024 Prior to the initiation of the FIRST treatment with Onabotulinum Toxin A, the patient reported the following average headache frequency over the past 3 MONTHS: Number of moderate-severe migraine days/month: 20 Number of mild migraine days/month: 10 Number of headache free days/month: 0 (0 headache-free hours) Migraine severity: 8/10 After treatment with Onabotulinum Toxin A: Number of moderate-severe migraine days/month: 10 Number of mild migraine days/month: 5 Number of headache free days/month: 15 (360 headache-free hours) Migraine severity: 03/19 Patient reduction in overall migraine days: Yes Patient reduction in moderate-severe migraine days: Yes Patient reduction of headache hours by 100 hours or more: Yes (reduction of 360 hours) Individual has obtained clinical benefit deemed significant by individual or prescriber (Y/N): Yes Patient's quality of life and ability to perform ADLs has improved (Y/N): Yes Side effects: none Wearing off: Yes - 10 weeks after treatment The patient has been assessed for disorders which could contribute to breathing or swallowing difficulty, and there is no contraindication with PREEMPT Botox. There is no documented allergic reaction/hypersensitivity to any botulinum toxin and there is no active infection at proposed injection site. HEADACHE SCORES: 02/26/2023 05/29/2023 11/23/2023 Headache Questions ER visits since last office visit: 2 0 1 Hospital stays since last office visit 1 0 0 Limited ADLs in the last month: 2 4 3 Days missed from work or school in the last month: 0 0 0 Days headache pain free in the last month: 15 10 8 Days per month with ALL of the following symptoms - decreased productivity, light sensitivity and nausea: 6 8 10 Initial improvement of headache after botox injection at last visit: Not applicable, I did not havea botox injection at my last visit Not applicable, I did not have a botox injection at my last visit Not applicable, I did not have a botox injection at my last visit PRN medication usage in the last month: 0 2 10 Patient impression of improvement since last visit: Much worse Much worse Very much worse 02/26/2023 05/29/2023 11/23/2023 HIT-6 HIT-6 62 (Severe impact) 67 (Severe impact) 64 (Severe impact) 02/26/2023 05/29/2023 11/23/2023 MARCIA - 2/7 SCORES MARCIA-2 Score 0 0 4 MARCIA-7 Score 10 02/26/2023 05/29/2023 11/23/2023 Migraine Specific QOL - Higher scores indicate better HRQL Role Function-Restrictive Transformed Score (range: 0-100) 68.57 40 48.57 Role Function-Preventive Transformed Score (range: 0-100) 90 40 80 Emotional Function Transformed Score (range: 0-100) 73.33 0 53.33 02/26/2023 05/29/2023 11/23/2023 PHQ-9 Score 4 13 3 BP 153/76 Pulse 107 LMP 03/24/2024 SpO2 97% Patient name: Ambika Brown : 1990 ALLERGIES Allergen Reactions Prochlorperazine Other: See Comments Compazine Diphenhydramine Intolerance Heart palpitations, anxiety UNIVERSAL PROTOCOL / SAFETY CHECKLIST Procedure: Onabotulinum toxin A for migraine Informed Consent Consent Obtained: Written Holladay Protocol A moment to CARE was completed SIGN IN Personnel directly involved with the procedure wore the appropriate PPE Special Equipment: N/A Patient/Surrogate Stated/Verified: Patient name, Date of , Relevant allergies and Intended procedure TIME OUT Intended patient and procedure match the source document(s) Consent documented and matches the intended procedure No relevant labs, photos, and/or imaging studies were applicable for review. No correct side/site applicable for marking and visibility. No medications required for procedure. No fire risk assessment and interventions applicable. No implant(s) inserted. SIGN OUT No specimen collected. No instruments, equipment or retained foreign bodies applicable. Post-procedure follow-up management communicated and Plan of Care Visit completed when applicable Written Consent Obtained: Written LOT #: [id number] Expiration Date: Month: 12 Year: 2025 Injection Sites Left (Units) Left (Sites) Right (Units) Right (Sites) TOTAL (Units) Insulation Cupola Operator 5 1 5 1 10 Procerus Units: 5 Sites: 1 5 Frontalis 10 2 10 2 20 Temporalis 20 4 20 4 40 Occipitalis 15 3 15 3 30 Cervical PSP 10 2 10 2 20 Trapezius 15 3 15 3 30 Total Units used: 155 Total Units wasted: 45 Prior Therapies Duration of Use Dose Side effect Analgesic Ketorolac (Toradol) Anti-Convulsant Divalproex sodium (Depakote) Gabapentin (Neurontin) Levetiracetam (Keppra) Topiramate (Topamax, Trokendi XL, Qudexy) Zonisamide (Zonegram) Anti-Depressant and Antipsychotic Fluoxetine (Prozac) Antiemetics Ondansetron Prochlorperazine Promethazine Anti-Migraine Dihydroergotamine (DHE-45, Migranal) Blood Pressure Nadolol (Corgard) Botulinum Toxin Onabotulinum Toxin A (Botox) Sleep Aids Melatonin Supplements Magnesium Other Medications Dexamethasone (Decadron) Over the Counter Medications Acetaminophen (Tylenol) Aspirin Ibuprofen (Advil, Motrin) Naproxen sodium (Aleve) Dalila Fernandez APRN.KEVIN documented in this encounterChildren[facility]08-22-2024 NoteHNO ID: [id number] Author: DALILA FERNANDEZ APRN.CNP Service: ? Author Type: Nurse Practitioner Type: Progress Notes Filed: 05/01/2024 14:16 Note Text: Headache Center Follow-up Visit Current Preventive: Botox Change needed for current preventive? No Current Abortive: Naproxen, Phenergan Change needed for current abortive? No Impression: Chronic migraine without aura, intractable, without status migrainosus (primary encounter diagnosis) Plan: Follow-Up Onabotulinum Toxin A (BotoxTM) for Migraine Indication: Chronic Intractable Migraine Treatment #: 16 Referral Expiration: 11/26/2024 Prior to the initiation of the FIRST treatment with Onabotulinum Toxin A, the patient reported the following average headache frequency over the past 3 MONTHS: Number of moderate-severe migraine days/month: 20 Number of mild migraine days/month: 10 Number of headache free days/month: 0 (0 headache-free hours) Migraine severity: 8/10 After treatment with Onabotulinum Toxin A: Number of moderate-severe migraine days/month: 10 Number of mild migraine days/month: 5 Number of headache free days/month: 15 (360 headache-free hours) Migraine severity: 7/10 Patient reduction in overall migraine days: Yes Patient reduction in moderate-severe migraine days: Yes Patient reduction of headache hours by 100 hours or more: Yes (reduction of 360 hours) Individual has obtained clinical benefit deemed significant by individual or prescriber (Y/N): Yes Patient's quality of life and ability to perform ADLs has improved (Y/N): Yes Side effects: none Wearing off: Yes - 10 weeks after treatment The patient has been assessed for disorders which could contribute to breathing or swallowing difficulty, and there is no contraindication with PREEMPT Botox. There is no documented allergic reaction/hypersensitivity to any botulinum toxin and there is no active infection at proposed injection site. HEADACHE SCORES: 02/26/2023 05/29/2023 11/23/2023 Headache Questions ER visits since last office visit: 2 0 1 Hospital stays since last office visit 1 0 0 Limited ADLs in the last month: 2 4 3 Days missed from work or school in the last month: 0 0 0 Days headache pain free in the last month: 15 10 8 Days per month with ALL of the following symptoms - decreased productivity, light sensitivity and nausea: 6 8 10 Initial improvement of headache after botox injection at last visit: Not applicable, I did not have a botox injection at my last visit Not applicable, I did not have a botox injection at my last visit Not applicable, I did not have a botox injection at my last visit PRN medication usage in the last month: 0 2 10 Patient impression of improvement since last visit: Much worse Much worse Very much worse 02/26/2023 05/29/2023 11/23/2023 HIT-6 HIT-6 62 (Severe impact) 67 (Severe impact) 64 (Severe impact) 02/26/2023 05/29/2023 11/23/2023 MARCIA - 2/7 SCORES MARCIA-2 Score 0 0 4 MARCIA-7 Score 10 02/26/2023 05/29/2023 11/23/2023 Migraine Specific QOL - Higher scores indicate better HRQL Role Function-Restrictive Transformed Score (range: 0-100) 68.57 40 48.57 Role Function-Preventive Transformed Score (range: 0-100) 90 40 80 Emotional Function Transformed Score (range: 0-100) 73.33 0 53.33 02/26/2023 05/29/2023 11/23/2023 PHQ-9 Score 4 13 3 BP 153/76 Pulse 107 LMP 03/24/2024 SpO2 97% Patient name: Ambika Brown : 1990 ALLERGIES Allergen Reactions Prochlorperazine Other: See Comments Compazine Diphenhydramine Intolerance Heart palpitations, anxiety UNIVERSAL PROTOCOL / SAFETY CHECKLIST Procedure: Onabotulinum toxin A for migraine Informed Consent Consent Obtained: Written Holladay Protocol A moment to CARE was completed SIGN IN Personnel directly involved with the procedure wore the appropriate PPE Special Equipment: N/A Patient/Surrogate Stated/Verified: Patient name, Date of , Relevant allergies and Intended procedure TIME OUT Intended patient and procedure match the source document(s) Consent documented and matches the intended procedure No relevant labs, photos, and/or imaging studies were applicable for review. No correct side/site applicable for marking and visibility. No medications required for procedure. No fire risk assessment and interventions applicable. No implant(s) inserted. SIGN OUT No specimen collected. No instruments, equipment or retained foreign bodies applicable. Post-procedure follow-up management communicated and Plan of Care Visit completed when applicable Written Consent Obtained: Written LOT #: [id number] Expiration Date: Month: 12 Year: 2025 Injection Sites Left (Units) Left (Sites) Right (Units) Right (Sites) TOTAL (Units) Insulation Cupola Operator 5 1 5 1 10 Procerus Units: 5 Sites: 1 5 Frontalis 10 2 10 2 20 Temporalis 20 4 20 4 40 Occipitalis 15 3 15 3 30 Cervical PSP 10 2 10 2 20 Trapezius 15 3 15 3 30 Total Units used (more content not included)...[facility] 04-30-2024 NoteHNO ID: [id number] Author: WASHINGTON MONDRAGON APRN.SCHEDULE CHECKER Service: ? Author Type: Nurse Practitioner Type: Progress Notes Filed: 04/30/2024 12:25 Note Text: Ambika Brown is a 34 year old female who presents for problem visit menses discussion. HPI: Ambika's periods are heavy and painful. She has to change a pad hourly. This has been going on since her period returned after delivery. Currently not on control and wants to become . A1C was 6.1 8 months ago. Currently on Metformin and down to 5.8 per patient. Follows with PCP. Has lupus anticoagulant disorder and cHTN. C/S April 2023. Starting new job and concerned about heavy bleeding while at work. OB History T1 L1 SAB4 IAB0 Ectopic1 Multiple0 Live Births1 [employer] History LMP: 03/24/2024, Having periods Age at Menarche: Age at First : Age at Menopause: [employer] History Comments: Sexual Activity: Yes; Male Contraception: Condom PAST MEDICAL HISTORY No date: Asthma No date: Chronic hypertension No date: Clotting disorder (HCC) No date: Fibromyalgia No date: GERD (gastroesophageal reflux disease) No date: Gestational diabetes No date: Hiatal hernia No date: Insulin resistance No date: Lupus anticoagulant disorder (HCC) No date: Migraines No date: Nonsustained ventricular tachycardia (HCC) 07/15/2021: Obesity, Class III, BMI >= 40 No date: Palpitations No date: Paroxysmal supraventricular tachycardia (HCC) No date: Pre-eclampsia No date: Syncope No date: Thyroid disease PAST SURGICAL HISTORY 05/09/2023: DELIVERY ONLY 2014: CHOLECYSTECTOMY 2018: DANDC, DIAG AND/OR THERAPEUTIC 02/13/2022: EP STUDY Comment: comprehensive EP study; normal study, no accessory pathways; +dual AV azra pathways but no inducible SVT; CCAG Dr. Rock 2009: ORAL SURGERY PROCEDURE Comment: wisdom teeth 2005: TONSILLECTOMY HX FAMILY HISTORY Problem Relation Age of Onset Hypothyroidism Mother Cancer Mother glioblastoma Hyperlipidemia Father Hypertension Father Asthma Sister Migraines Sister Bipolar disorder Sister No Known Problems Brother No Known Problems Brother Diabetes Maternal Grandmother Diabetes Maternal Grandfather Stroke Paternal Grandmother other (COVID-19) Paternal Grandmother Heart disease Paternal Grandfather had two open heart surgeries Social History Tobacco Use Smoking status: Never Smokeless tobacco: Never Vaping Use Vaping status: Never Used Substance Use Topics Alcohol use: Never Drug use: Never Current Outpatient Medications Medication Sig ondansetron (ZOFRAN) 8 mg tablet FOR NAUSEA. Take on at onset of nausea or migraine,may repeat dose in 8 hours if needed. naproxen (NAPROSYN) 500 mg tablet Take 1 tablet by mouth two times a day as needed for pain. metoprolol tartrate, short acting, (LOPRESSOR) 50 mg tablet Take 1 tablet by mouth two times a day. levothyroxine (SYNTHROID) 50 mcg tablet Take 50 mcg by mouth every morning. Take On an Empty Stomach aspirin, enteric coated (ASPIRIN, ENTERIC COATED) 81 mg EC tablet Take 81 mg by mouth daily at bedtime. promethazine (PHENERGAN) 25 mg tablet 1/2 to 1 po q8h prn headache or nausea cholecalciferol, vitamin D3, (VITAMIN D3 ORAL) Take by mouth. PNV/FERROUS SULFATE/FOLIC ACID ( MULTIVIT WITH IRON ORAL) Take by mouth daily at bedtime. albuterol HFA (PROVENTIL HFA, VENTOLIN HFA) 90 mcg/actuation inhaler Inhale 2 Puffs as instructed every 4 hours as needed for Wheezing/Shortness of Breath. 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 Abnormal uterine bleeding - ICD9: 626.9, ICD10: N93.9 (primary diagnosis) - Aygestin taper given for upcoming period - Labs and ultrasound ordered - 3 days late for upcoming period, check HCG 2. Class 3 severe obesity with body mass index (BMI) of 50.0 to 59.9 in adult, unspecified obesity type, unspecified whether serious comorbidity present (HCC) - ICD9: 278.01, V85.43, ICD10: E66.01, Z68.43 - Reviewed cycles can improve with 5-10% weight loss - CONSULT TO [facility] Will direct management based on ultrasound results. Washington Mondragon APRN.CNP Medical Decision Making: Problems: Moderate (more content not included)...[facility]08-21-2024 History of Present illness Narrative* Washington Mondragon APRN.CNP - 04/30/2024 10:26 AM EDT Ambika Brown is a 34 year old female who presents for problem visit menses discussion. HPI: Ambika's periods are heavy and painful. She has to change a pad hourly. This has been going on since her period returned after delivery. Currently not on control and wants to become . A1C was 6.1 8 months ago. Currently on Metformin and down to 5.8 per patient. Follows with PCP. Has lupus anticoagulant disorder and cHTN. C/S April 2023. Starting new job and concerned about heavy bleeding while at work. OB History T1 L1 SAB4 IAB0 Ectopic1 Multiple0 Live Births1 [employer] History LMP: 03/24/2024, Having periods Age at Menarche: Age at First : Age at Menopause: [employer] History Comments: Sexual Activity: Yes; Male Contraception: Condom PAST MEDICAL HISTORY No date: Asthma No date: Chronic hypertension No date: Clotting disorder (HCC) No date: Fibromyalgia No date: GERD (gastroesophageal reflux disease) No date: Gestational diabetes No date: Hiatal hernia No date: Insulin resistance No date: Lupus anticoagulant disorder (HCC) No date: Migraines No date: Nonsustained ventricular tachycardia (HCC) 07/15/2021: Obesity, Class III, BMI >= 40 No date: Palpitations No date: Paroxysmal supraventricular tachycardia (HCC) No date: Pre-eclampsia No date: Syncope No date: Thyroid disease PAST SURGICAL HISTORY 05/09/2023: DELIVERY ONLY 2014: CHOLECYSTECTOMY 2018: D&C, DIAG AND/OR THERAPEUTIC 02/13/2022: EP STUDY Comment: comprehensive EP study; normal study, no accessory pathways; +dual AV azra pathways but no inducible SVT; CCAG Dr. Rock 2009: ORAL SURGERY PROCEDURE Comment: wisdom teeth 2005: TONSILLECTOMY HX FAMILY HISTORY Problem Relation Age of Onset Hypothyroidism Mother Cancer Mother glioblastoma Hyperlipidemia Father Hypertension Father Asthma Sister Migraines Sister Bipolar disorder Sister No Known Problems Brother No Known Problems Brother Diabetes Maternal Grandmother Diabetes Maternal Grandfather Stroke Paternal Grandmother other (COVID-19) Paternal Grandmother Heart disease Paternal Grandfather had two open heart surgeries Social History Tobacco Use Smoking status: Never Smokeless tobacco: Never Vaping Use Vaping status: Never Used Substance Use Topics Alcohol use: Never Drug use: Never Current Outpatient Medications Medication Sig ondansetron (ZOFRAN) 8 mg tablet FOR NAUSEA. Take on at onset of nausea or migraine,may repeat dosein 8 hours if needed. naproxen (NAPROSYN) 500 mg tablet Take 1 tablet by mouth two times a day as needed for pain. metoprolol tartrate, short acting, (LOPRESSOR) 50 mg tablet Take 1 tablet by mouth two times a day. levothyroxine (SYNTHROID) 50 mcg tablet Take 50 mcg by mouth every morning. Take On an Empty Stomach aspirin, enteric coated (ASPIRIN, ENTERIC COATED) 81 mg EC tablet Take 81 mg by mouth daily at bedtime. promethazine (PHENERGAN) 25 mg tablet 1/2 to 1 po q8h prn headache or nausea cholecalciferol, vitamin D3, (VITAMIN D3 ORAL) Take by mouth. PNV/FERROUS SULFATE/FOLIC ACID ( MULTIVIT WITH IRON ORAL) Take by mouth daily at bedtime. albuterol HFA (PROVENTIL HFA, VENTOLIN HFA) 90 mcg/actuation inhaler Inhale 2 Puffs as instructed every 4 hours as needed for Wheezing/Shortness of Breath. 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 Abnormal uterine bleeding - ICD9: 626.9, ICD10: N93.9 (primary diagnosis) - Aygestin taper given for upcoming period - Labs and ultrasound ordered - 3 days late for upcoming period, check HCG 2. Class 3 severe obesity with body mass index (BMI) of 50.0 to 59.9 in adult, unspecified obesity type, unspecified whether serious comorbidity present (HCC) - ICD9: 278.01, V85.43, ICD10: E66.01, Z68.43 - Reviewed cycles can improve with 5-10% weight loss - CONSULT TO [facility] Will direct management based on ultrasound results. Washington Mondragon APRN.CNP Medical Decision Making: Problems: Moderate: 1+ chronic illnesses with change Data: Unique test(s) ordered: 3+ Risk: Low: Low risk from testing/treatment Moderate: Drug management Medical Decision Making Level: 4 - Moderate documented in [facility] encounter[facility] Instructions* Patient Instructions* Dalila Fernandez APRN.CNP - 01/24/2024 3:14 PM EDT Instruction after Botox injection: - If you have any pain or swelling use ice, 20 min on and 20 min off. Do not rub or massage the area for 24 hrs. - If you have any neck stiffness, you may use heat and do stretching exercises. - This should improve over the next 5 days. - If it does not, call our office at [phone] for further instructions. documented in this encounterChildren[facility] History of Present illness Narrative* Dalila Fernandez APRN.CNP - 01/24/2024 2:30 PM EDT Images from the original note were not included. Headache Center Follow-up Visit Current Preventive: Botox Current Abortive: Naproxen, Phenergan Miscellaneous Patient Concerns: First time back Botox after Impression: Chronic migraine without aura, intractable, without status migrainosus (primary encounter diagnosis) Plan: Follow-Up Onabotulinum Toxin A (BotoxTM) for Migraine Indication: Chronic Intractable Migraine Treatment #: 15 Referral Expiration: 11/26/2024 Prior to the initiation of the FIRST treatment with Onabotulinum Toxin A, the patient reported the following average headache frequency over the past 3 MONTHS: Number of moderate-severe migraine days/month: 20 Number of mild migraine days/month: 10 Number of headache free days/month: 0 (0 headache-free hours) Migraine severity: 8/10 After treatment with Onabotulinum Toxin A: Number of moderate-severe migraine days/month: 20 Number of mild migraine days/month: 5 Number of headache free days/month: 5 (120 headache-free hours) Migraine severity: 7/10 Patient reduction in overall migraine days: Yes Patient reduction in moderate-severe migraine days: No Patient reduction of headache hours by 100 hours or more: Yes (reduction of 120 hours) - last Botox1.5 years ago Individual has obtained clinical benefit deemed significant by individual or prescriber (Y/N): Yes Patient's quality of life and ability to perform ADLs has improved (Y/N): Yes Side effects: none Wearing off: Yes - 10 weeks after treatment The patient has been assessed for disorders which could contribute to breathing or swallowing difficulty, and there is no contraindication with PREEMPT Botox. There is no documented allergic reaction/hypersensitivity to any botulinum toxin and there is no active infection at proposed injection site. HEADACHE SCORES: 02/26/2023 05/29/2023 11/23/2023 Headache Questions ER visits since last office visit: 2 0 1 Hospital stays since last office visit 1 0 0 Limited ADLs in the last month: 2 4 3 Days missed from work or school in the last month: 0 0 0 Days headache pain free in the last month: 15 10 8 Days per month with ALL of the following symptoms - decreased productivity, light sensitivity and nausea: 6 8 10 Initial improvement of headache after botox injection at last visit: Not applicable, I did not havea botox injection at my last visit Not applicable, I did not have a botox injection at my last visit Not applicable, I did not have a botox injection at my last visit PRN medication usage in the last month: 0 2 10 Patient impression of improvement since last visit: Much worse Much worse Very much worse 02/26/2023 05/29/2023 11/23/2023 HIT-6 HIT-6 62 (Severe impact) 67 (Severe impact) 64 (Severe impact) 02/26/2023 05/29/2023 11/23/2023 MARCIA - 2/7 SCORES MARCIA-2 Score 0 0 4 MARCIA-7 Score 10 02/26/2023 05/29/2023 11/23/2023 Migraine Specific QOL - Higher scores indicate better HRQL Role Function-Restrictive Transformed Score (range: 0-100) 68.57 40 48.57 Role Function-Preventive Transformed Score (range: 0-100) 90 40 80 Emotional Function Transformed Score (range: 0-100) 73.33 0 53.33 02/26/2023 05/29/2023 11/23/2023 PHQ-9 Score 4 13 3 BP 132/71 Pulse 96 LMP 09/27/2020 Patient name: Ambika Brown : 1990 ALLERGIES Allergen Reactions Prochlorperazine Other: See Comments Compazine Diphenhydramine Intolerance Heart palpitations, anxiety UNIVERSAL PROTOCOL / SAFETY CHECKLIST Procedure: Onabotulinum toxin A for migraine Informed Consent Consent Obtained: Written [place] Protocol A moment to CARE was completed SIGN IN Personnel directly involved with the procedure wore the appropriate PPE Special Equipment: N/A Patient/Surrogate Stated/Verified: Patient name, Date of , Relevant allergies and Intended procedure TIME OUT Intended patient and procedure match the source document(s) Consent documented and matches the intended procedure No relevant labs, photos, and/or imaging studies were applicable for review. No correct side/site applicable for marking and visibility. No medications required for procedure. No fire risk assessment and interventions applicable. No implant(s) inserted. SIGN OUT No specimen collected. No instruments, equipment or retained foreign bodies applicable. Post-procedure follow-up management communicated and Plan of Care Visit completed when applicable Written Consent Obtained: Written LOT #: [id number] Expiration Date: Month: 6 Year: 2025 Injection Sites Left (Units) Left (Sites) Right (Units) Right (Sites) TOTAL (Units) Insulation Cupola Operator 5 1 5 1 10 Procerus Units: 5 Sites: 1 5 Frontalis 10 2 10 2 20 Temporalis 20 4 20 4 40 Occipitalis 15 3 15 3 30 Cervical PSP 10 2 10 2 20 Trapezius 15 3 15 3 30 Total Units used: 155 Total Units wasted: 45 Prior Therapies Duration of Use Dose Side effect Analgesic Ketorolac (Toradol) Anti-Convulsant Divalproex sodium (Depakote) Gabapentin (Neurontin) Levetiracetam (Keppra) Topiramate (Topamax, Trokendi XL, Qudexy) Zonisamide (Zonegram) Anti-Depressant and Antipsychotic Fluoxetine (Prozac) Antiemetics Ondansetron Prochlorperazine Promethazine Anti-Migraine Dihydroergotamine (DHE-45, Migranal) Blood Pressure Nadolol (Corgard) Botulinum Toxin Onabotulinum Toxin A (Botox) Sleep Aids Melatonin Supplements Magnesium Other Medications Dexamethasone (Decadron) Over the Counter Medications Acetaminophen (Tylenol) Aspirin Ibuprofen (Advil, Motrin) Naproxen sodium (Aleve) Dalila Fernandez APRN.SCHEDULE CHECKER documented in this encounterChildren'[facility]04-06-2024 History of Present illness Narrative* Noemi Ramos RT(R) - 12/15/2023 10:50 AM EDT Radiology Service Progress Note PATIENT NAME: Ambika Brown DATE OF SERVICE: December 15, 2023 TIME: 10:51 AM PATIENT IDENTITY VERIFICATION COMPLETED USING TWO (2) IDENTIFIERS: Name and Date of confirmedby patient verbally. FALL SCREENING: Has the patient had 2 falls in the last year or 1 fall with injury or currently using an Ambulatory Assistive Device (Walker, Cane, Wheelchair, Crutches, etc.)? No PATIENT GENDER DATA: Female. status: : No status: NO. PATIENT RELEVANT IMPLANT DATA REVIEWED: Yes PATIENT PRESENTS WITH AN IMPLANTABLE OR ATTACHED SENIOR NETWORK ADMINISTRATOR: No RADIOLOGY DEPARTMENT: General X-ray: Exam(s) Completed: Lower Extremity X- Ray(s): Toes, Left 4th toe PERIPHERAL IV DATA: Not applicable SIGNED BY: RT Raquel(R) December 15, 2023 10:51 AM documented in this encounterChildren'S [facility]04-06-2024 History of Present illness Narrative* Lauro Diaz MD - 12/15/2023 10:26 AM EDT Patient presents with: 4th toe left foot pain: Stubbed on bed frame yesterday HPI: Left toe pain: Duration: stubbed on her bed yesterday Location: left 4th toe Character: sharp Radiation: some in the foot Aggravating: touching and bending Relieving: ice Pain relievers: Tylenol Associated: maybe swollen Pertinent negatives: PAST MEDICAL HISTORY Diagnosis Date Asthma Clotting disorder (HCC) Fibromyalgia GERD (gastroesophageal reflux disease) Hiatal hernia Insulin resistance Lupus anticoagulant disorder (HCC) Migraines Nonsustained ventricular tachycardia (HCC) Obesity, Class III, BMI >= 40 07/15/2021 Palpitations Paroxysmal supraventricular tachycardia (HCC) Syncope Thyroid disease MEDICATIONS: ondansetron (ZOFRAN) 8 mg tablet FOR NAUSEA. Take on at onset of nausea or migraine,may repeat dosein 8 hours if needed. naproxen (NAPROSYN) 500 mg tablet Take 1 tablet by mouth two times a day as needed for pain. metoprolol tartrate, short acting, (LOPRESSOR) 50 mg tablet Take 1 tablet by mouth two times a day. levothyroxine (SYNTHROID) 50 mcg tablet Take 50 mcg by mouth every morning. Take On an Empty Stomach aspirin, enteric coated (ASPIRIN, ENTERIC COATED) 81 mg EC tablet Take 81 mg by mouth daily at bedtime. promethazine (PHENERGAN) 25 mg tablet 1/2 to 1 po q8h prn headache or nausea cholecalciferol, vitamin D3, (VITAMIN D3 ORAL) Take by mouth. PNV/FERROUS SULFATE/FOLIC ACID ( MULTIVIT WITH IRON ORAL) Take by mouth daily at bedtime. albuterol HFA (PROVENTIL HFA, VENTOLIN HFA) 90 mcg/actuation inhaler Inhale 2 Puffs as instructed every 4 hours as needed for Wheezing/Shortness of Breath. ALLERGIES: ALLERGIES Allergen Reactions Prochlorperazine Other: See Comments Compazine Diphenhydramine Intolerance Heart palpitations, anxiety VITALS: BP 124/78 Pulse 86 Temp 36.6 C (97.9 F) (Tympanic) Resp 18 Wt (!) 149.3 kg (329 lb 2.4 oz) LMP 09/27/2020 SpO2 97% BMI 51.55 kg/m PE: Pleasant, in no acute distress. FOOT: left. No erythema, edema, ecchymosis, or deformity. Pain with 4th toe palpation or ROM. Tender mid to distal 4th metatarsal. Other toes and metatarsals are non-tender. ASSESSMENT/PLAN: 1. Toe pain, left - ICD9: 729.5, ICD10: M79.675 - XR TOE AP/LAT/OBL LEFT - no fracture or dislocation. Radiology interpretation is pending. The patient will be notified if there is a significant finding in the report not discussed at the time of the visit. Treat toe contusion with rest, ice, and as needed analgesia. Advance activity as tolerated. Lauro Diaz MD documented in this encounterChildren'[facility]03-15-2024 Miscellaneous Notes* Telephone Encounter - Stephanie Araujo RN - 11/23/2023 3:52 PM EDT Botox referral sent to pharmacy. Stephanie Araujo RN documented in this encounterChildren'S [facility]03-15-2024 History of Present illness Narrative* Dalila Fernandez APRN.SCHEDULE CHECKER - 11/23/2023 8:30 AM EDT Images from the original note were not included. [facility] - Follow up Virtual Visit Last OV:05/29/23 M MARIA FERNANDA Klein Accompanied by: Self This visit was conducted as a virtual visit, with patient's permission, via ZOOM. It required patient-provider interaction for the medical decision making as documented below. Patient stated name and Patient location [place], [place] I have communicated my name and active licensure. The patient's identity and physical location wereverified at the time of this visit. Either the patient or their legal telephone sales representative has been informed of the risks and benefits of -- and alternatives to -- treatment through a remote evaluation andconsents to proceed with the evaluation remotely. 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 Pots (Postural Orthostatic Tachycardia Syndrome) Pain Disorder Associated With Psychological Factors and Medical Condition Rls (Restless Legs Syndrome) Neck Pain Syncope Palpitations Nonsustained Ventricular Tachycardia (Hcc) Obesity, Class III, BMI >= 40 Paroxysmal Supraventricular Tachycardia (Hcc) Chief Complaint: Headache Interval Headache Hx: Has finished breast feeding 1 month ago; wants to go back on Botox 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 Herneurological examination is essentially normal at this visit. Her headaches began to worsen (currently 3 weeks post-) for last week, she is currently and limited in medication to take to break her headache cycle. She has done well with greater occipital nerve blocks in past, we will have her scheduled to come in for lidocaine only GONB, with plan to resume Botox once no longerbreastfeeding. Patient verbalized understanding and agreed to treatment plan. PLAN: -Schedule GONB -Resume Botox once no longer -Consider IV infusions if necessary (patient not interested at this time) Headache 1 Diagnosis: Chronic Migraine Headache (CM) Location: frontal, temporal and retro-orbital Quality/Description: throbbing, pressure and piercing/stabbing Associated Symptoms: Photophobia: yes Phonophobia: yes Nausea: yes - when severe Vomiting: no Other symptoms: osmophobia and lightheadedness Worse with activity: yes Number of migraine headache days/month: 20 Migraine headache severity: 8/10 Number of NON-migraine headache days/month: 0 Total Number of headache days/month: 20 Number of headache free days/month: 8 Duration of headaches with treatment: 2 days (48 hours) Triggers: stress, weather changes, sleep- too little, fasting/hunger and dehydration Onset of headache to peak: abrupt Positional changes: no Most common time of day for headache to begin: upon awakening Aura: none Allodynia: yes - scalp Days missed from work or school in the last month: 0 days Headache status since the last visit: worse Lifestyle: Sleep: 5 hours Exercise: clinicals OT Issues and questions to be addressed: Medications Current Outpatient Medications Medication Sig metoprolol tartrate, short acting, (LOPRESSOR) 50 mg tablet Take 1 tablet by mouth two times a day. aspirin, enteric coated (ASPIRIN, ENTERIC COATED) 81 mg EC tablet Take 81 mg by mouth daily at bedtime. promethazine (PHENERGAN) 25 mg tablet 1/2 to 1 po q8h prn headache or nausea cholecalciferol, vitamin D3, (VITAMIN D3 ORAL) Take by mouth. PNV/FERROUS SULFATE/FOLIC ACID ( MULTIVIT WITH IRON ORAL) Take by mouth daily at bedtime. albuterol HFA (PROVENTIL HFA, VENTOLIN HFA) 90 mcg/actuation inhaler Inhale 2 Puffs as instructed every 4 hours as needed for Wheezing/Shortness of Breath. ondansetron (ZOFRAN) 8 mg tablet FOR NAUSEA. Take on at onset of nausea or migraine,may repeat dosein 8 hours if needed. naproxen (NAPROSYN) 500 mg tablet Take 1 tablet by mouth two times a day as needed for pain. levothyroxine (SYNTHROID) 50 mcg tablet Take 50 mcg by mouth every morning. Take On an Empty Stomach No current facility-administered medications for this visit. ALLERGIES Allergen Reactions Prochlorperazine Other: See Comments Compazine Diphenhydramine Intolerance Heart palpitations, anxiety HEADACHE SCORES: 02/26/2023 05/29/2023 11/23/2023 Headache Questions ER visits since last office visit: 2 0 1 Hospital stays since last office visit 1 0 0 Limited ADLs in the last month: 2 4 3 Days missed from work or school in the last month: 0 0 0 Days headache pain free in the last month: 15 10 8 Days per month with ALL of the following symptoms - decreased productivity, light sensitivity and nausea: 6 8 10 Initial improvement of headache after botox injection at last visit: Not applicable, I did not havea botox injection at my last visit Not applicable, I did not have a botox injection at my last visit Not applicable, I did not have a botox injection at my last visit PRN medication usage in the last month: 0 2 10 Patient impression of improvement since last visit: Much worse Much worse Very much worse 02/26/2023 05/29/2023 11/23/2023 HIT-6 HIT-6 62 (Severe impact) 67 (Severe impact) 64 (Severe impact) 02/26/2023 05/29/2023 11/23/2023 MARCIA - 2/7 SCORES MARCIA-2 Score 0 0 4 MARCIA-7 Score 10 02/26/2023 05/29/2023 11/23/2023 Migraine Specific QOL - Higher scores indicate better HRQL Role Function-Restrictive Transformed Score (range: 0-100) 68.57 40 48.57 Role Function-Preventive Transformed Score (range: 0-100) 90 40 80 Emotional Function Transformed Score (range: 0-100) 73.33 0 53.33 11/23/2023 05/29/2023 02/26/2023 PHQ-9 Score 3 13 4 I have reviewed the Julius Status Assessment responses and discussed these with the patient: yes Dalila Fernandez APRN.SCHEDULE CHECKER Studies to Review: Latest Ref Rng 09/30/2023 WBC 3.70 - 11.00 k/uL 12.97 (H) RBC 3.90 - 5.20 m/uL 5.23 (H) Hemoglobin 11.5 - 15.5 g/dL 12.9 Hematocrit 36.0 - 46.0 % 40.3 MCV 80.0 - 100.0 fL 77.1 (L) MCH 26.0 - 34.0 pg 24.7 (L) MCHC 30.5 - 36.0 g/dL 32.0 RDW-CV 11.5 - 15.0 % 15.9 (H) Platelet Count 150 - 400 k/uL 277 MPV 9.0 - 12.7 fL 11.1 Neut% % 70.4 Abs Neut (ANC) 1.45 - 7.50 k/uL 9.13 (H) Lymph% % 21.1 Abs Lymph 1.00 - 4.00 k/uL 2.74 Piute% % 5.8 Abs Piute <0.87 k/uL 0.75 Eosin% % 2.1 Abs Eosin <0.46 k/uL 0.27 Baso% % 0.3 Abs Baso <0.11 k/uL 0.04 Immature Gran % % 0.3 IMMATURE GRANS (ABS) <0.10 k/uL 0.04 NRBC /100 WBC 0.0 Absolute nRBC <0.01 k/uL <0.01 DTYPE Auto Protein, Total 6.0 - 8.5 g/dL 7.6 Albumin 3.2 - 5.0 g/dL 3.6 Calcium 8.5 - 10.5 mg/dL 10.0 Bilirubin, Total 0.2 - 1.0 mg/dL 0.4 Alkaline Phosphatase 45 - 117 U/L 170 (H) AST 8 - 34 U/L 30 ALT 13 - 61 U/L 41 Glucose 70 - 100 mg/dL 125 (H) BUN 7 - 26 mg/dL 16 Creatinine 0.51 - 0.95 mg/dL 0.67 Sodium 136 - 145 mmol/L 141 Potassium 3.5 - 5.1 mmol/L 3.7 Chloride 98 - 107 mmol/L 103 CO2 21 - 32 mmol/L 29 Anion Gap 5 - 16 mmol/L 9 eGFR >=60 mL/min/1.73m 119 PT Sec 9.7 - 13.0 sec 11.3 PT INR 0.9 - 1.3 1.0 Magnesium 1.6 - 2.6 mg/dL 1.8 APTT 23.0 - 32.4 sec 33.4 (H) TROPONIN I HIGH SENSITIVITY 0.0 - 34.0 pg/mL <2.5 d Dimer <500 ng/mL FEU 270 Lipase 12 - 60 U/L 45 HCG, Qualitative Negative Negative Legend: (H) High (L) Low New Health Issues: No New Social History: No New Family History: No REVIEW OF SYSTEMS: Review of system : unchanged from the previous visit (sleep patterns, mood, energy, appetite, stress, exercising). PHYSICAL EXAMINATION: General: Alert and oriented. Answered questions in an appropriate manner. Made eye contact without apparent pain behavior. HEENT: Head is normocephalic and features were symmetric. Cranial Nerves: II: Pupils: symmetric, Ill,lV,Vl: nl eye movements VII: Face symmetric. Motor: Bulk: Normal for age and gender. No abnormal movements were appreciated. MRI Head/Brain - Last 2 Impressions MRI BRAIN WO CONTRAST Collected: 03/15/2016 7:39 AM (Final result) Impression: IMPRESSION: No acute intracranial process ... IMPRESSION: Chronic migraine without aura, intractable, without status migrainosus (primary encounter diagnosis) Ambika Brown is a 33 year old year old female, with a history of asthma, FM, hiatal hernia, Lupus Anticoagulant disorder, PSVT, obesity, syncope and chronic migraines. She is no longer breast feedingand wants to resume Botox, which she had responded very well. With greater than a 50% response. We will get a precert for Onabotulinum Toxin A using the PREEMPT protocol. This patient meets FDA criteria for Chronic Migraine without aura, with mention of intractable migraine, so stated, without mention of status migrainosus. The migraine lasts for greater than 4 hours and has been chronic for more than three months. Onabotulinum Toxin A is FDA approved for chronic migraine. Her headaches are associated with photophobia, phonophobia, osmophobia, nausea, neck pain, worse with movement for three or more months. Patient will not use in conjunction with CGRP preventive medications. Medication overuse, alternatediagnosis, confounding psychiatric or social stresses have been ruled out as the cause of headaches. Severity: moderate to severe Quality: throbbing Migraine days a month: 20 Headache days a month: 0 Total Headache days a month: 20 Headache free days a month: 10 The following preventative medications have been tried for at least three months without benefit ordiscontinued due to side effects: Anti-Convulsant Divalproex sodium (Depakote) Gabapentin (Neurontin) Levetiracetam (Keppra) Topiramate (Topamax, Trokendi XL, Qudexy) Zonisamide (Zonegram) Anti-Depressant and Antipsychotic Fluoxetine (Prozac) Blood Pressure Nadolol (Corgard) Botulinum Toxin Onabotulinum Toxin A (Botox) Supplements Magnesium The following abortive medications have been tried but require high frequency use which can lead toMedication Overuse Headache: Analgesic Ketorolac (Toradol) Anti-Migraine Dihydroergotamine (DHE-45, Migranal) Over the Counter Medications Acetaminophen (Tylenol) Aspirin Ibuprofen (Advil, Motrin) Naproxen sodium (Aleve) The patient has been assessed for disorders which could contribute to breathing or swallowing difficulty, and there is no contraindication with PREEMPT Botox. There is no documented allergic reaction/hypersensitivity to any botulinum toxin and there is no active infection at proposed injection site PLAN: Apply Botox Naproxen, Zofran for headache MEDICATION TREATMENT: Medications to Start Taking ondansetron (ZOFRAN) 8 mg tablet FOR NAUSEA. Take on at onset of nausea or migraine,may repeat dosein 8 hours if needed. naproxen (NAPROSYN) 500 mg tablet Take 1 tablet by mouth two times a day as needed for pain. HEADACHE MANAGEMENT: (You are the primary guardian of your health and headache. Keep track of all medications: This includes the reason for use, side effects and benefits.) Headache education was done. Discussed lifestyle modification including increased oral hydration, decreased caffeine, exercise and stress management. Discussed treatment options including preventive and acute medications, natural supplements, and infusion therapy. Discussed medication overuse headache and to limit use of acute treatments to no more than 2 days/week or 10 days/month. Discussed medication side effects, adverse reactions and drug interactions. Written educational materials and patient instructions outlining all of the above were given. Follow-up: for BOTOX Level of service: [facility] level 3 (20-29 min). Time spent 25 min on the day of service, which included preparing to see the patient, inoe-pj-gegn patient care, completing clinical documentation, counseling and educating the patient/family/caregiver, and ordering medications, tests, or procedures. Dalila Fernandez APRN.KEVIN documented in this encounterChildren[facility]12-20-2023 Miscellaneous Notes* Telephone Encounter - Brenda Foster RN - 08/29/2023 11:22 AM EST Left detailed message on identified voicemail. Brenda Foster RN * Telephone Encounter - Washington Mondragon APRN.CNP - 08/29/2023 11:09 AM EST Please notify patient: With history of hypertension in , would recommend following with a promotions producer postpartumto ensure no further concerns. Consult placed. Please assist patient in scheduling. Washington Mondragon APRN.CNP documented in this encounterChildren'[facility]12-20-2023 Instructions* Patient Instructions* Washington Mondragon APRN.CNP - 08/29/2023 10:23 AM EST Lubricants and moisturizers list The fvai-zsj-cunojsl vaginal moisturizer and lubricant products can be confusing to sort through, especially since there are no FDA requirements for how they can be marketed or labeled. In general there are 3 categories of products: Vaginal lubricants should be used at the time of intercourse to decrease friction. Long acting vaginal moisturizers are used at least twice weekly to increase vaginal (internal) lubrication and elasticity. Vulvar moisturizers are for external use for vulvar comfort and do not impact vaginal lubrication or elasticity. Vaseline petroleum products and oils (baby oil, coconut, olive oil,) can make condoms break, so should not be used with condoms. In many women, these can cause infections. However, if you have sore spots on the vulva (outer lips), then petroleum jelly can sometimes be helpful. All of the products listed below are over the counter. Many can be bought in any drugstore or online. Also, many [employer] stores do carry high-quality lubricant products. VAGINAL LUBRICANTS: (For use during sexual activity) Lubricants should be applied to the outside and opening of the vagina at the time of sexual activity. The lubricant can also be applied to the penis or a device. Silicone based lubricants should not be used on silicone vibrators or toys. Both silicone and water based lubricants are condom compatible. If you use a water based lubricant, it is also important to choose a lubricant with low osmolality since lubricants with high osmolality increase the chance of irritation and infection. Osmolality information can be hard to find. All of the following lubricants have a low osmolality, are pH balanced, and are preservative free. WATER BASED LUBRICANTS Good Clean Love (made of organic ingredients) Pulse H2Oh! Sylk Natural System Estella PreSeed (Does not impact sperm motility and can be used if trying to conceive, also good for those with multiple sensitivities, though may not work as well) SILICONE BASED LUBRICANTS Uber lube Replens Silky Smooth Pulse Aloe-ahh Wet [place] ESTELLA Premium Personal Lubricant PINK Silicone Lubricant SLIQUID Organics silk Pulse is a hands free personal lubricant warming dispenser and is sold with water or silicone basedlubricant pods that some women prefer for travel. LONG ACTING VAGINAL MOISTURIZERS: (For regular use inside vagina to maintain moisture) Long acting vaginal moisturizers should be used at least twice weekly on a regular basis. Many women find they need to use a moisturizer 3-5 times/week. In addition, it is important to not only applythe moisturizer inside the vagina, but also to apply to the vestibule (the external area surrounding the opening of the vagina). Women who are not sexually active often find that the regular use of along acting vaginal moisturizer makes them feel more comfortable. Assembly Machine Operator beware: many lubricants arelabeled as moisturizers to make them more appealing to consumers (even though they don t function as a true moisturizer). Replens Long Acting Vaginal Moisturizer (Available in all drugstores) HyaloGyn Vaginal Hydrating Gel (hybrid moisturizer, but can function as lubricant too) Revaree (hyaluronic acid) VULVAR MOISTURIZERS: (For external use) Replens Moisture Restore Comfort Gel is to be used externally for dry vulvar skin. Aquaphor can also be applied externally for comfort. [place] Aloe [place]: Many people are allergic to aloe, so keep this in mind with products like this that have aloe in it. Medicine Mama s V magic: Not much medical studies on this, but many patients swear by it, has oil, beeswax and honey in it- best used externally only. documented in this encounterChildren[facility] History of Present illness Narrative* Washington Mondragon APRN.KEVIN - 08/29/2023 9:55 AM EST Ambika Brown is a 33 year old female who presents to establish care. HPI: Here to establish care. Had c/s at [facility] on 05/08/2023. Was managed by [facility] MFM. Had gestational diabetes chronic hypertension with pre-eclampsia. Has Lupus anticoagulant disorder. Was last seenin June with MFM. OB History No obstetric history on file. [employer] [employer] History LMP: 09/27/2020, Having periods Age at Menarche: Age at First : Age at Menopause: [employer] History Comments: Sexual Activity: Yes; Male Contraception: Condom PAST MEDICAL HISTORY Diagnosis Date Asthma Clotting disorder (HCC) Fibromyalgia GERD (gastroesophageal reflux disease) Hiatal hernia Insulin resistance Lupus anticoagulant disorder (HCC) Migraines Nonsustained ventricular tachycardia (HCC) Obesity, Class III, BMI >= 40 07/15/2021 Palpitations Paroxysmal supraventricular tachycardia Syncope Thyroid disease PAST SURGICAL HISTORY Procedure Laterality Date DELIVERY ONLY 05/09/2023 CHOLECYSTECTOMY 2014 D&C, DIAG AND/OR THERAPEUTIC 2018 EP STUDY 02/13/2022 comprehensive EP study; normal study, no accessory pathways; +dual AV azra pathways but no inducible SVT; [facility] Dr. Rock ORAL SURGERY PROCEDURE 2009 wisdom teeth TONSILLECTOMY HX 2005 FAMILY HISTORY Problem Relation Age of Onset Hypothyroidism Mother Cancer Mother glioblastoma Hyperlipidemia Father Hypertension Father Asthma Sister Migraines Sister Bipolar disorder Sister No Known Problems Brother No Known Problems Brother Diabetes Maternal Grandmother Diabetes Maternal Grandfather Stroke Paternal Grandmother other (COVID-19) Paternal Grandmother Heart disease Paternal Grandfather had two open heart surgeries Social History Tobacco Use Smoking status: Never Smokeless tobacco: Never Vaping Use Vaping Use: Never used Substance Use Topics Alcohol use: Never Drug use: Never Current Outpatient Medications Medication Sig levothyroxine (SYNTHROID) 50 mcg tablet Take 50 mcg by mouth every morning. Take On an Empty Stomach aspirin, enteric coated (ASPIRIN, ENTERIC COATED) 81 mg EC tablet Take 81 mg by mouth daily at bedtime. promethazine (PHENERGAN) 25 mg tablet 1/2 to 1 po q8h prn headache or nausea cholecalciferol, vitamin D3, (VITAMIN D3 ORAL) Take by mouth. folic acid 400 mcg tablet Take 400 mcg by mouth daily at bedtime. PNV/FERROUS SULFATE/FOLIC ACID ( MULTIVIT WITH IRON ORAL) Take by mouth daily at bedtime. Ascorbic Acid chew Take 500 mg by mouth daily at bedtime. albuterol HFA (PROVENTIL HFA, VENTOLIN HFA) 90 mcg/actuation inhaler Inhale 2 Puffs as instructed every 4 hours as needed for Wheezing/Shortness of Breath. No current facility-administered medications for this visit. Allergies As of Date: 08/29/2023 Allergen Noted Reaction PROCHLORPERAZINE 12/02/2018 Other: See Comments DIPHENHYDRAMINE 10/05/2022 Other: See Comments Fully Assessed 08/29/2023 REVIEW OF SYSTEMS Abdomen: No bloating, early satiety, indigestion, or increased flatulence. No abdominal pain, nausea, vomiting, diarrhea, or constipation. Bladder: No dysuria, gross hematuria, urinary frequency, urinary urgency, or incontinence. Breast: No breast lumps, nipple d/c, overlying skin changes, redness or skin retraction. Expanded ROS: N/A Allergies and current medication updated:Yes EXAM: BP 120/80 Ht 5' 7.5 (1.72m) Wt 325 lb 6.4 oz (147.6kg) LMP 09/27/2020 BMI 50.18 kg/(m^2). GENERAL: pleasant, female in no apparent distress HEENT: Normocephalic, atraumatic, mucus membranes moist, and no lesions NECK: Supple, full range of motion, no adenopathy, and thyroid normal DERMATOLOGY: Normal, without lesions, non-icteric, and non-hirsute CHEST: Normal inspiratory effort ABDOMEN: Deferred NEURO: alert and oriented x3,exam grossly non-focal EXTREMITIES: normal ASSESSMENT AND PLAN: 1. History of gestational diabetes - ICD9: V12.21, ICD10: Z86.32 (primary diagnosis) - Never had 2 hour - HgbA1c ordered 2. Vaginal dryness - ICD9: 625.8, ICD10: N89.8 - Reports intercourse painful since having baby - Discussed can affect estradiol levels - May experience vaginal dryness, irritation - Recommend vaginal lubricants for intercourse, moisturizers for day to day, list provided. - Discussed return to intimacy can be a slower process for mothers: evaluate emotional, mental, and spiritual health. Adjustment period with , new dynamics of marriage - Getting about 6 hours of interrupted sleep - Reports mental health improving, was on antidepressant - Discussed Buzz360 gene for sexual health - To notify if no improvement 3. Lactating mother - ICD9: V24.1, ICD10: Z39.1 - Reports going well - Starting clinicals for OT, reviewed pumping every 3 hours to maintain milk supply 4. Amenorrhea - ICD9: 626.0, ICD10: N91.2 - Possible concern for - HCG ordered 5. History of pre-eclampsia - ICD9: V13.29, ICD10: Z87.59 - Follows with Dr. Conrad, [facility] cardiology Not a candidate for combined hormonal control due to Lupus anticoagulant disorder. Consider nonhormonal options. Discussed Phexxi. Tried IUD in the past, does not desire Paraguard. Using condoms currently. Reports itching to c/s incision occasionally. Uses Nystatin that was prescribed and it resolves. Discussed healing process, numbness/tingling to be expected. To report continuous itching. RTO for annual visit in 3-6 months. Washington Mondragon APRN.KEVIN Medical Decision Making: Problems: Low: 2+ self-limited or minor problems Data: Unique test(s) ordered: 2 Risk: Minimal: Minimal risk from testing/treatment Medical Decision Making Level: 3 - Low documented in this encounterChildren[facility]09-20-2023 Instructions* Patient Instructions* Aarti Huertas PA-C - 05/30/2023 3:31 PM EDT You received a greater occipital nerve block today. You may feel sore tomorrow at the site of the injection. You may use heat or ice for discomfort. This should resolve in 24-36 hours. Today you received trigger point injections to your bilateral temples. With both sets of injections you received a total of 8 cc of 1% lidocaine. documented in this encounterChildren'S [facility]09-20-2023 Procedure note* Aarti Huertas PA-C - 05/30/2023 3:02 PM EDTProcedure(s): GREATER OCCIPITAL NERVE BLOCK; TRIGGER POINT INJ 1-2 MUSC GRP Pre-Procedure Diagnose(s): Chronic migraine without aura, with intractable migraine, so stated, with status migrainosus Post-Procedure Diagnose(s): Chronic migraine without aura, with intractable migraine, so stated, with status migrainosus Ms. Brown is a 33 y/o female who is presently her infant and has h/o chronic migraines. She has been in status migrainosus x 9 days and is here for a repeat 1% lidocaine bilateral JOSUÉ block and trigger point injections. Her migraine rates a 5/10 and is located bilaterally temporally and retroorbitally. UNIVERSAL PROTOCOL / SAFETY CHECKLIST Procedure to be Performed: bilateral greater occipital nerve blocks and trigger point injections Sign In: A Moment of CARE was completed. Personnel directly involved with the procedure wore the appropriate PPE (Personal Protective Equipment). No special equipment needed. Patient/Surrogate Stated/Verified: PATIENT VERIFIED(optional for EMERGENT procedures): Patient name, Date of , Relevant allergies, and The intended procedure Time Out Communication: Intended patient and procedure match the source documents. Consent documented and matches the intended procedure. Correct side/site marked and visible. Medications required for procedure verified. No fire risk assessment and interventions applicable. No implant(s) inserted. Sign Out: SIGN OUT (optional for EMERGENT procedures): No specimen collected. All instruments, equipment, possible retained foreign bodies accounted for. Post-procedure follow-up management communicated and Plan of Care Visit completed when applicable. Aarti Marie, PA-C Procedure Note: Greater Occipital Nerve Block The risks, benefits and anticipated outcomes of the procedure, the risks and benefits of the alternatives to the procedure, and the roles and tasks of the personnel to be involved, were discussed with the patient, and the patient consents to the procedure and agrees to proceed. 6 cc 0.1% lidocaine and no steroids were injected into the Bilateral: Greater Occipital nerve(s). Patient tolerated the procedure well. Aarti Huertas PA-C Procedure: Trigger Point Injection The risks, benefits and anticipated outcomes of the procedure, the risks and benefits of the alternatives to the procedure, and the roles and tasks of the personnel to be involved, were discussed with the patient, and the patient consents to the procedure and agrees to proceed. 2 cc of 1% lidocaine were prepared in one syringe. Trigger points were identified by muscle spasm, band and radiating pain. Each trigger point listed below was injected after aspiration to ensure no air, arterial, or venous blood was present. The patient was instructed to use heat (20 min. at a time) and do stretching exercises for 24 hrs. Trigger Points injected: temporalis muscles bilateral Pre procedure pain: 5/10 Post precedure pain: 3/10 Aarti Huertas PA-C May 30, 2023 3:29 PM documented in this encounterChildren'[facility]09-20-2023 History of Present illness Narrative* Aarti Huertas PA-C - 05/30/2023 3:01 PM EDT . documented in this encounterChildren'S [facility]09-02-2023 NoteDepartment of Obstetrics and Gynecology Delivery Discharge Summary Admission on 05/07/2023 8:06 PM Hospital course: [now], 37w4d IOL for SIPEwoSF and GDMA2. Eventually pt received an epidural. Pt's cervical change was minimal and at 4 cm, HR showed a CAT2 tracing. Tracing did not resolve with intrauterine resuscitation and csection was called. By PLTCS, a boy was delivered. A velamentous cord insertion was noted [see Notes for details]. course & complications: LLE swelling - negative for DVT Cutaneous candidiasis Surgical Operations & Procedures: Date of delivery: 05/08/2023 Procedure: : Low Transverse Anesthesia: Epidural anesthesia and TAP block: Routine Laceration(s): n/a Delivery Complications: none EBL: 900 mL Pertinent Findings & Procedures: Information for the patient's : Ryland Brown [[id number]] male 2925 g (6 lb 7.2 oz) Apgars: Information for the patient's : Ryland Brown [[id number]] : Infant: Boy; circumcision will do as outpatient d/t partial natural circ Blood Type/Rh: O Antibody Screen: No results found for: LABANTI Rubella: No results found for: RUBELLAIGG Contraception: Will discuss with patient at the 6-week visit. : VTE Prophylaxis: Prophylactic Dosing x 6 weeks Meds at Discharge: Medication List START taking these medications Clotrimazole 1 % ointment Apply to affected areas BID for 2 weeks. docusate sodium 100 MG capsule Commonly known as: Colace Take 1 capsule (100 mg) by mouth 2 times daily as needed for constipation. FeroSul 325 (65 Fe) MG tablet Generic drug: ferrous sulfate Take 1 tablet (325 mg) by mouth in the morning and 1 tablet (325 mg) in the evening. Take with meals. ibuprofen 600 MG tablet Take 1 tablet (600 mg) by mouth in the morning and 1 tablet (600 mg) at noon and 1 tablet (600 mg) in the evening and 1 tablet (600 mg) before bedtime. Do all this for 23 days. oxyCODONE 5 MG immediate release tablet Commonly known as: Roxicodone Take 1 tablet (5 mg) by mouth every 6 hours as needed for moderate pain (4-6) for up to 5 days. CONTINUE taking these medications ascorbic acid 500 MG tablet Commonly known as: Vitamin C cholecalciferol 200 Unit tablet split tablet Commonly known as: Vitamin D3 enoxaparin 40 MG/0.4ML solution prefilled syringe Commonly known as: Lovenox levothyroxine 50 MCG tablet Commonly known as: Synthroid, Levoxyl magnesium oxide 400 (240 Mg) MG tablet Commonly known as: Mag-Ox Take 1 tablet (400 mg) by mouth daily. Do not start before December 30, 2022. GUMMIES/DHA & FA PO sodium chloride 0.9 % nebulizer solution with albuterol (5 MG/ML) 0.5% nebulizer solution 0.9 mg/mL STOP taking these medications aspirin 81 MG EC tablet famotidine 10 MG tablet Commonly known as: Pepcid insulin NPH (Isophane) 100 UNIT/ML injection Commonly known as: HumuLIN N,NovoLIN N labetalol 200 MG tablet Commonly known as: Normodyne metFORMIN 500 MG tablet Commonly known as: Glucophage Where to Get Your Medications These medications were sent to [facility] [address] [place] [id number] Hours: Sunday to Sunday 10 am to 6 pm docusate sodium 100 MG capsule FeroSul 325 (65 Fe) MG tablet ibuprofen 600 MG tablet oxyCODONE 5 MG immediate release tablet These medications were sent to [address] [address] Clotrimazole 1 % ointment Activity: Activity as tolerated Diet: Regular diet Follow-up Appointments: - visit - Incision check - Blood pressure check - 2-hr GTT needed - depression screen If a patient meets criteria for hypertension, make sure the following are done prior to discharge: [] Order a blood pressure kit through [facility] (or the patient's own pharmacy on the weekend) [] Order the blood pressure log through [facility] [x] Place an office visit or telephone encounter for a 3-to-5-day blood pressure check. [] Include blood pressure dot phrase (.sumobhypertension) in discharge instructions [] Check here if the patient does NOT meet criteria for hypertension Condition on discharge: Stable Discharge to: Home/self care Discharge date: 05/12/23 Discharge Dx: S/p PLTCS CAT 2 tracing SIPEwoSF GDMA2 Cutaneous candidiasis Obesity PVCs/Palpitations/Intermittent SVT/Syncopal Episode Asthma Hypothyroidism Migraines HOSEA Anxiety 37 weeks gestation of [Z3A.37] Patient Active Problem List Diagnosis Infertility, female Obesity GERD (gastroesophageal reflux disease) Left-sided weakness Mild intermittent asthma without complication Migraine Hemiplegic migraine without status migrainosus, not intractable Chronic migraine without aura Somatic dysfunction (more content not included)...[facility] 05-12-2023 Hospital course Narrative* Hanna Smith DO - 05/12/2023 12:45 PM EDT Images from the original note were not included. Department of Obstetrics and Gynecology Delivery Discharge Summary Admission on 05/07/2023 8:06 PM Hospital course: [now], 37w4d IOL for SIPEwoSF and GDMA2. Eventually pt received an epidural. Pt's cervical change was minimal and at 4 cm, HR showed a CAT2 tracing. Tracing did not resolve with intrauterine resuscitation and csection was called. By PLTCS, a boy was delivered. A velamentous cord insertion was noted [see Notes for details]. course & complications: LLE swelling - negative for DVT Cutaneous candidiasis Surgical Operations & Procedures: Date of delivery: 05/08/2023 Procedure: : Low Transverse Anesthesia: Epidural anesthesia and TAP block: Routine Laceration(s): n/a Delivery Complications: none EBL: 900 mL Pertinent Findings & Procedures: Information for the patient's : Ryland Brown [[id number]] male 2925 g (6 lb 7.2 oz) Apgars: Information for the patient's : Ryland Brown [[id number]] : : Boy; circumcision will do as outpatient d/t partial natural circ Blood Type/Rh: O Antibody Screen: No results found for: LABANTI Rubella: No results found for: RUBELLAIGG Contraception: Will discuss with patient at the 6-week visit. : VTE Prophylaxis: Prophylactic Dosing x 6 weeks Meds at Discharge: Medication List START taking these medications Clotrimazole 1 % ointment Apply to affected areas BID for 2 weeks. docusate sodium 100 MG capsule Commonly known as: Colace Take 1 capsule (100 mg) by mouth 2 times daily as needed for constipation. FeroSul 325 (65 Fe) MG tablet Generic drug: ferrous sulfate Take 1 tablet (325 mg) by mouth in the morning and 1 tablet (325 mg) in the evening. Take with meals. ibuprofen 600 MG tablet Take 1 tablet (600 mg) by mouth in the morning and 1 tablet (600 mg) at noon and 1 tablet (600 mg) in the evening and 1 tablet (600 mg) before bedtime. Do all this for 23 days. oxyCODONE 5 MG immediate release tablet Commonly known as: Roxicodone Take 1 tablet (5 mg) by mouth every 6 hours as needed for moderate pain (4-6) for up to 5 days. CONTINUE taking these medications ascorbic acid 500 MG tablet Commonly known as: Vitamin C cholecalciferol 200 Unit tablet split tablet Commonly known as: Vitamin D3 enoxaparin 40 MG/0.4ML solution prefilled syringe Commonly known as: Lovenox levothyroxine 50 MCG tablet Commonly known as: Synthroid, Levoxyl magnesium oxide 400 (240 Mg) MG tablet Commonly known as: Mag-Ox Take 1 tablet (400 mg) by mouth daily. Do not start before December 30, 2022. GUMMIES/DHA & FA PO sodium chloride 0.9 % nebulizer solution with albuterol (5 MG/ML) 0.5% nebulizer solution 0.9 mg/mL STOP taking these medications aspirin 81 MG EC tablet famotidine 10 MG tablet Commonly known as: Pepcid insulin NPH (Isophane) 100 UNIT/ML injection Commonly known as: HumuLIN N,NovoLIN N labetalol 200 MG tablet Commonly known as: Normodyne metFORMIN 500 MG tablet Commonly known as: Glucophage Where to Get Your Medications These medications were sent to [facility] [address] [place] [address] Hours: Sunday to Sunday 10 am to 6 pm docusate sodium 100 MG capsule FeroSul 325 (65 Fe) MG tablet ibuprofen 600 MG tablet oxyCODONE 5 MG immediate release tablet These medications were sent to [place] [phone] Clotrimazole 1 % ointment Activity: Activity as tolerated Diet: Regular diet Follow-up Appointments: - visit - Incision check - Blood pressure check - 2-hr GTT needed - depression screen If a patient meets criteria for hypertension, make sure the following are done prior to discharge: [] Order a blood pressure kit through [facility] (or the patient's own pharmacy on the weekend) [] Order the blood pressure log through [facility] [x] Place an office visit or telephone encounter for a 3-to-5-day blood pressure check. [] Include blood pressure dot phrase (.sumobhypertension) in discharge instructions [] Check here if the patient does NOT meet criteria for hypertension Condition on discharge: Stable Discharge to: Home/self care Discharge date: 05/12/23 Discharge Dx: S/p PLTCS CAT 2 tracing SIPEwoSF GDMA2 Cutaneous candidiasis Obesity PVCs/Palpitations/Intermittent SVT/Syncopal Episode Asthma Hypothyroidism Migraines HOSEA Anxiety 37 weeks gestation of [Z3A.37] Patient Active Problem List Diagnosis Infertility, female Obesity GERD (gastroesophageal reflux disease) Left-sided weakness Mild intermittent asthma without complication Migraine Hemiplegic migraine without status migrainosus, not intractable Chronic migraine without aura Somatic dysfunction of head region Somatic dysfunction of cervical region Somatic dysfunction of thoracic region Somatic dysfunction of both upper extremities Somatic dysfunction of both lower extremities 37 weeks gestation of Comments: Home care, Follow-up care and control were reviewed. Signs and symptoms of mastitis and Depression were reviewed. The patient is to notify her physician if any of these occur. documented in this [facility]09-02-2023 Miscellaneous Notes* Note - Maria Perla RN - 05/12/2023 9:30 AM EDT Follow up visit with pt. Mom continues to offer breast and pump with each feed. Assistance given with . Instructions given on basic positioning and latch-on technique. Shown mom how to utilize infants rooting/sucking reflexes to aid in latching baby to breast. Importance of wide, deep,latch discussed. Multiple attempts made. Attempted at breast for 15 minutes, Baby latched with few sucks, but unable to maintain. No latch obtained. Written feeding plan reviewed and given to pt. PLAN: Patient to feed infant on demand but if it's been 2-3 hrs and is not showing hunger signs, to unwrap infant, place skin to skin, hand express and attempt infant at breast for 15-20 minutes. Ifinfant becomes fussy at breast, calm and retry. If no latch obtained after 15-20 minutes, supplement infant with 2-10 ml (first 24 hrs) 5-15 ml (24-48 hrs) 15-30 ml (48-72 hr) and 30-60 (72-96hrs) may require more if still showing hunger signs. If no STEVEN available then formula will need to be given to make up difference. Discussed all alterative feeding methods and nipple confusionrisks with mother. Educated mother every time supplementation is given, mother must pump with double electric breast pump to protect milk supply. Mother states understanding of importance of pumping 8-10 times a day. If infant able to latch and transfers well and no supplementation given then no need to pump. Parents states understanding of feeding plan. Shown section of Taking Care of Yourself and Baby' Booklet. Reviewed baby-led, cue based feedings (8-12x/day), how to know baby is getting enough, output parameters and milk storage guidelines. Discussed engorgement, plugged ducts and mastitis. Patient encouraged to seek help ABIMAEL for any concerns. phone number and [facility] information shared from booklet. Mom voiced understanding. No further questions. Spectra pump for home use. * Note - Nga Don RN - 05/12/2023 2:17 AM EDT F/U vs from . Mom sleeping. Infant in nursery. Infant has been bottle feeding this shift. * Note - Ruma Lopez RN - 05/11/2023 2:17 PM EDT Mom continues to pump each feeding. Starting to see drops when pumping which is encouraged to her. Declines assistance with latch today, encouraged her to try before discharge tomorrow. Demonstrated the use of her Spectra pump. * Note - Ruma Lopez RN - 05/10/2023 10:51 AM EDT No successful latch with baby's recent attempt. Observed mom cup feed baby, mom demonstrated good technique with procedure. Will continue to pump each attempt. Called for a personal pump also. * Note - Ruma Lopez RN - 05/10/2023 6:15 AM EDT Called to assist with feeding. Mom feels infant is latching to the left nipple, does not latch to the rt. Baby is now becoming fussy and frustrated when latching to either side and she is unable to console infant. Observed attempt to latch, shallow suckling with cheeks dimpling in. No swallows noted, infant falls asleep quickly. Validated moms concerns, lack of swallowing and shallow latch. Recommended pumping with hospital pump to support supply, pump set up and explained. Showed mom how to cup feed, baby took 12cc of formula and was content. Patient will continue to attempt latch, pump after each attempt and cup feed STEVEN/formula while babyis not transferring milk. * Note - Tiara Smiley RN - 05/09/2023 3:11 PM EDT Attempted at breast for 15 mins , latched a few sucks then would fall asleep. Hand expressed with mother for 1 ml and fed to infant. Mother able to hand express drops on her own. Hand expression of breast milk taught and return demonstration given. Patient able to easily express drops of colostrum. Patient educated that hand expression can be helpful in assisting baby with latch and stimulating milk production. Encouraged frequent hand expression - before, after and betweenfeeds - to boost milk production. Mom concerned regarding baby's sleepiness. Helped mom place baby skin to skin. Discussed importanceof skin to skin for infants adaptation to extra-uterine life, infants development and for mom's milk production. Reviewed infants feeding cues and sleep cycles. Taught mom hand expression, colostrum obtained and placed on infants lips. Naps encouraged. Reassurance given to mom. Instructed dad on touch pad to call for LC when baby shows interest in feeding. Mom and Dad voiced understanding. Patient states she has insulin resistance and talking to doctor about continuing metformin Educated MARGARITA Patrick and patient, if no latch by 24 hrs, will need to start double electric pumping breast and supplementing with STEVEN or formula if STEVEN not available Gave patient outpatient resources since clinical staff pharmacist declines diagnosis of tongue tie. Educated when would need corrected and gave recommendations * Care Coordination - Reema Avila RN - 05/09/2023 12:23 PM EDT Date: 05/09/2023 Name: Ambika Brown : 1990 [facility] Information [place] Patient Information Primary Caregiver: Self Accompanied by/Relationship: S/O;Family Marital Status: Support System: SO/Family Presybeterian/Cultural Factors: Jehovah'S Witness Activities of Daily Living Communication: See demographics Living Arrangements Current Residence: Private residence Lives With: S/O; Family Support System: S/O; Family Income Information Income Source: Employed Financial Resource Strain How hard is it for you to pay for the very basics like food, housing, medical care and heating? N/A Housing Stability In the last 12 months, was there a time when you did not have a steady place to sleep or slept in ashelter (including now)? No Transportation Needs Has the lack of Transportation kept you from medical appointments? No In the past 12 months, has the lack of transportation kept you from meetings, work, or from gettingthings needed for daily living? No Food Insecurity Within the past 12 months, have you worried that your food would run out before you got the money to buy more? No Stress Do you feel stress - tense, restless, nervous, or anxious, or unable to sleep at night because you mind is troubled all the time? Mood stable Referral To Financial Resources: N/A Community Resources: Admission folder given upon admission to PP Unit Social Work: N/A CLP: N/A Medical Information 33 year old admitted for induction of labor for NORAH, GDMA2 at 37/4 weeks. 6 Para 0. delivery. 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 B. C's of safe sleep. Always place your baby on his or her back to sleep, use a firm sleep surface and your baby should not sleep in an adult bed, on a couch or chair. Keep soft objects, toys and loose bedding out of your baby's sleep area. Reviewed depression. It is common to have blues. This is a normal response to many of the hormonalchanges, stress and lack of sleep that go with raising a and physically recovering from thebirth. Don't hesitate to talk to your provider with any concerns. There are resources in your home going booklet. To help prevent germs from spreading to you and your baby, make sure everyone washes t heir hands before they handle your . Avoid crowds, and keep infant away from sick people, anyone who is sick with a cough or fever, including family members. Post- warning signs information reviewed with patient per nurse with discharge Additional Information: Patient is independent and has insurance. She is prepared with her baby supplies. To be discharged to home. Denies any concerns at this time. Mental Health Services: Resources in discharge folder Equipment: Developmental Delay: N/A Children's Services: N/A * Note - Tiara Smiley RN - 05/09/2023 6:50 AM EDT Called to room with assistance latching. Mother currently very nauseous and vomiting, consents to help with Attempted infant on breast for 20 min's and no latch achieved. On and off latch observed. Checked infant for tongue tie and signs of tongue tie present, let primary RN collins serna know about tonguetie. HAND EXPRESSED 1 ml AND GIVEN TO Mom concerned regarding baby's sleepiness. Helped mom place baby skin to skin. Discussed importanceof skin to skin for infants adaptation to extra-uterine life, infants development and for mom's milk production. Reviewed infants feeding cues and sleep cycles. Taught mom hand expression, colostrum obtained and placed on infants lips. Naps encouraged. Reassurance given to mom. Instructed dad on touch pad to call for LC when baby shows interest in feeding. Mom and Dad voiced understanding. Hand Expression of colostrum/breast milk taught and return demonstration given. Patient able to express drops of colostrum. Patient educated that hand expression can be helpful in assisting baby withlatch, softening areola when engorged and stimulating milk production. Encouraged frequent hand expression- before, after and between feeds-to boost milk production. Initial visit with mom. On demand, cue based, unlimited feeding reinforced, at least 8 times in 24 hours (after the first 24 hours). Feeding cues and output parameters discussed. Frequent skin to skin encouraged. Discussed benefits of skin to skin and milk production. Demand and supply system of breast milk production discussed. Risks of early formula supplementation and use of bottle/artificial nipple/ pacifier discussed with patient. Patient receptive to teaching. Patient's questions answered. Encouraged to call LC as needed, reviewed touch pad with patient. SHOWN HOW TO CALL AND ENCOURAGED TO CALL FOR ASSISTANCE WITH LATCHING documented in this [id number] Obstetrics Note* Note - Maria Perla RN - 05/12/2023 9:30 AM EDT Follow up visit with pt. Mom continues to offer breast and pump with each feed. Assistance given with . Instructions given on basic positioning and latch-on technique. Shown mom how to utilize infants rooting/sucking reflexes to aid in latching baby to breast. Importance of wide, deep,latch discussed. Multiple attempts made. Attempted at breast for 15 minutes, Baby latched with few sucks, but unable to maintain. No latch obtained. Written feeding plan reviewed and given to pt. PLAN: Patient to feed infant on demand but if it's been 2-3 hrs and is not showing hunger signs, to unwrap , place skin to skin, hand express and attempt at breast for 15-20 minutes. Ifinfant becomes fussy at breast, calm and retry. If no latch obtained after 15-20 minutes, supplement infant with 2-10 ml (first 24 hrs) 5-15 ml (24-48 hrs) 15-30 ml (48-72 hr) and 30-60 (72-96hrs) may require more if still showing hunger signs. If no STEVEN available then formula will need to be given to make up difference. Discussed all alterative feeding methods and nipple confusionrisks with mother. Educated mother every time supplementation is given, mother must pump with double electric breast pump to protect milk supply. Mother states understanding of importance of pumping 8-10 times a day. If infant able to latch and transfers well and no supplementation given then no need to pump. Parents states understanding of feeding plan. Shown section of Taking Care of Yourself and Baby' Booklet. Reviewed baby-led, cue based feedings (8-12x/day), how to know baby is getting enough, output parameters and milk storage guidelines. Discussed engorgement, plugged ducts and mastitis. Patient encouraged to seek help ABIMAEL for any concerns. phone number and [facility] Support Group information shared from booklet. Mom voiced understanding. No further questions. Spectra pump for home use. [facility] [id number] History of Present illness Narrative* Hanna Smith DO - 05/12/2023 7:18 AM EDT Images from the original note were not included. Note- POST OPERATIVE DAY # 3 Ambika Brown is a 33 y.o. who was seen & examined today. Her was complicated by: Patient Active Problem List Diagnosis Infertility, female Obesity GERD (gastroesophageal reflux disease) Left-sided weakness Mild intermittent asthma without complication Migraine Hemiplegic migraine without status migrainosus, not intractable Chronic migraine without aura Somatic dysfunction of head region Somatic dysfunction of cervical region Somatic dysfunction of thoracic region Somatic dysfunction of both upper extremities Somatic dysfunction of both lower extremities 37 weeks gestation of Today she is doing well without any chief complaint. Her lochia is light. She denies Headache, Chest Pain, Vision Changes, and Shortness of Breath. She is ambulating well. Flatus present. Bowel movement present. Voiding without difficulty. She is tolerating solids. Pain is controlled yes. Vital Signs: Vitals: 05/10/23 1916 05/10/239 05/11/23 0805/11/237 BP: (!) 141/76 130/80 128/66 128/70 BP Location: Left arm Patient Position: Sitting Pulse: 88 96 80 84 Resp: 18 16 18 Temp: 36.8 C (98.2 F) 36.2 C (97.1 F) 36.7 C (98.1 F) TempSrc: Temporal Temporal Temporal SpO2: 98% 95% 98% Weight: Height: Urine Input & Output last 24hrs: No intake or output data in the 24 hours ending 05/12/23 0718 Physical Exam: Gen: NAD, well appearing HEENT: Normocephalic, Atraumatic, EOMI Resp: Non-labored breathing, no respiratory distress Abd: soft, NTND, no rebound, no guarding. Fundus firm and at umbilicus Incision: Silverlon dressing in place, C/D/I Ext: +2 LE edema, no calf tenderness or swelling Labs: Lab Results Component Value Date WBC 15.5 (H) 05/07/2023 HGB 9.9 (L) 05/10/2023 HCT 35.2 05/07/2023 MCV 78.4 (L) 05/07/2023 PLT 211 05/07/2023 O Antibody Screen: No results found for: LABANTI No results found for: RUBELLAIGG LABOR DELIVERY ??? SCD's ONLY (labor through ambulation) SCD's PLUS Prophylactic Anticoagulation until discharge SCD's PLUS Prophylactic Anticoagulation for 6 weeks SCD's PLUS Therapeutic Anticoagulation for 6 weeks Vaginal Delivery [] BMI ? 40 kg/m2 Delivery All patients Vaginal Delivery [] BMI ? 40 kg/m2 AND [] Antepartum hospitalization ? 72 hours within the past month Delivery 1 Major Risk Factor: [x] BMI ? 35 kg/m2 [] Low Risk Thrombophilia [] PPH+RBCs, IR, or operation [] Infection+Antibiotics [] Antepartum hospitalization ? 72 hours within the past month [] PMH: Sickle Cell, SLE, Cardiac Dz, Active IBD, Active Cancer, Nephrotic Syndrome OR 2 Minor Risk Factors: [] Multiple gestation [] Age > 40 [] PPH ? 1,000cc [] (+)FMH of VTE [] Smoker [] Preeclampsia [] BMI ? 40 kg/m2 AND [] Low Risk Thrombophilia OR ANY OF THE FOLLOWING: [] High Risk Thrombophilia without prior VTE [] Low Risk Thrombophilia with (+)FMH of VTE [] Any single prior VTE ANY OF THE FOLLOWING: [] Already on LMWH/UFH [] Multiple prior VTE [] High Risk Thrombophilia with prior VTE Low Risk Thrombophilia: FVL (heterozygous), Prothrombin (heterozygous), Protein C, Protein S High Risk Thrombophilia: FVL (homozygous), Prothrombin (homozygous), FVL+Prothrombin (heterozygous), Antithrombin III, APLS Assessment/Plan: Ambika Brown is a 33 y.o. POD # 3 s/p PLTCS 2/2 Cat II FHT Care - Doing well, VSS - Male - breast feeding - Contraception: Declines - Encourage ambulation and use of incentive spirometer - D/C mijares catheter and saline lock IV on POD #1 - Postop Hb 9.9 - VTE Prophylaxis: Prophylactic Dosing x 6 weeks SIPEwoSF - BP's normotensive - Labetalol currently held - Asymptomatic GDMA2 - AM fasting 99 - Follow up for 2hr GTT Acute Blood Loss Anemia PPH - VSS, asymptomatic - iron and colace ordered Obesity - Continue lovenox ppx PVC's/Palpitations, Intermittent SVT - Implantable loop recorder in place - VSS, asymptomatic Asthma - Asymptomatic Hypothyroidism - Continue home synthroid APLS Recurrent Loss - Continue ppx lovenox 6 weeks Migraines - Asx HOSEA - Not on CPAP Anxiety/Depression - Not on meds, mood stable Disposition: Anticipate discharge today per private attending's discretion Based on my clinical assessment, this patient is safe for self discharge (does not need transport by wheelchair) if she so chooses. Provider's Name: MD Shaw Mansfield MD 05/12/2023, 7:18 AM ATTENDING NOTE: I personally saw and evaluated the patient. I reviewed the care provided by the Resident including the patient's medical history, physical exam findings, diagnosis and treatment plan. I also agree with the documentation from the Resident unless otherwise indicated: Pt is doing well. Has a periumbilical rash. Yeast - will send med to pt's pharmacy. BP stable. Ok for dc. --- TOTAL TIME SPENT ON PATIENT ENCOUNTER TODAY: 25 MINUTES: Chart review and preparation: 5 minutes. Face to face: 10 minutes. Documentation and care coordination: 10 minutes. * Laura Ludwig PA-C - 05/11/2023 6:00 AM EDT Images from the original note were not included. Note- POST OPERATIVE DAY # 2 Ambika Brown is a 33 y.o. who was seen & examined today. Her was complicated by: Patient Active Problem List Diagnosis Infertility, female Obesity GERD (gastroesophageal reflux disease) Left-sided weakness Mild intermittent asthma without complication Migraine Hemiplegic migraine without status migrainosus, not intractable Chronic migraine without aura Somatic dysfunction of head region Somatic dysfunction of cervical region Somatic dysfunction of thoracic region Somatic dysfunction of both upper extremities Somatic dysfunction of both lower extremities 37 weeks gestation of Today she is doing well without any chief complaint. Her lochia is light. She denies Headache, Chest Pain, Vision Changes, and Shortness of Breath. She is ambulating well. Flatus present. Bowel movement absent. Voiding without difficulty. She is tolerating solids. Pain is controlled. Vital Signs: Vitals: 05/09/23 2327 05/10/23 0824 05/10/23 1916 05/10/23 2059 BP: 96/61 99/57 (!) 141/76 130/80 BP Location: Left arm Patient Position: Lying Pulse: 80 85 88 96 Resp: 17 18 18 Temp: 36.6 C (97.8 F) 36.2 C (97.1 F) 36.8 C (98.2 F) TempSrc: Temporal Temporal Temporal SpO2: 98% 96% 98% Weight: Height: Urine Input & Output last 24hrs: No intake or output data in the 24 hours ending 05/11/23 0600 Physical Exam: GENERAL APPEARANCE: alert, well appearing, in no apparent distress ABDOMEN : benign non-tender, without masses or organomegaly palpable NEUROLOGIC: alert, oriented, normal speech, no focal findings or movement disorder noted UTERUS : normal size, well involuted, firm,non-tender INCISION: silverlon dressing in place Labs: Lab Results Component Value Date WBC 15.5 (H) 05/07/2023 HGB 9.9 (L) 05/10/2023 HCT 35.2 05/07/2023 MCV 78.4 (L) 05/07/2023 PLT 211 05/07/2023 O Antibody Screen: No results found for: LABANTI No results found for: RUBELLAIGG LABOR DELIVERY ??? SCD's ONLY (labor through ambulation) SCD's PLUS Prophylactic Anticoagulation until discharge SCD's PLUS Prophylactic Anticoagulation for 6 weeks SCD's PLUS Therapeutic Anticoagulation for 6 weeks Vaginal Delivery [] BMI ? 40 kg/m2 Delivery All patients Vaginal Delivery [] BMI ? 40 kg/m2 AND [] Antepartum hospitalization ? 72 hours within the past month Delivery 1 Major Risk Factor: [] BMI ? 35 kg/m2 [] Low Risk Thrombophilia [] PPH+RBCs, IR, or operation [] Infection+Antibiotics [] Antepartum hospitalization ? 72 hours within the past month [] PMH: Sickle Cell, SLE, Cardiac Dz, Active IBD, Active Cancer, Nephrotic Syndrome OR 2 Minor Risk Factors: [] Multiple gestation [] Age > 40 [] PPH ? 1,000cc [] (+)FMH of VTE [] Smoker [] Preeclampsia [] BMI ? 40 kg/m2 AND [] Low Risk Thrombophilia OR ANY OF THE FOLLOWING: [] High Risk Thrombophilia without prior VTE [] Low Risk Thrombophilia with (+)FMH of VTE [] Any single prior VTE ANY OF THE FOLLOWING: [] Already on LMWH/UFH [] Multiple prior VTE [] High Risk Thrombophilia with prior VTE Low Risk Thrombophilia: FVL (heterozygous), Prothrombin (heterozygous), Protein C, Protein S High Risk Thrombophilia: FVL (homozygous), Prothrombin (homozygous), FVL+Prothrombin (heterozygous), Antithrombin III, APLS Assessment/Plan: Ambika Brown is a 33 y.o. POD # 2 s/p PLTCS 2/2 Cat II FHT Care - Doing well, VSS - Male - breast feeding - Contraception: Per Private Attending - Encourage ambulation and use of incentive spirometer - D/C mijares catheter and saline lock IV on POD #1 - Postop Hb 9.9 - VTE Prophylaxis: Prophylactic Dosing x 6 weeks SIPEwoSF - Met criteria prior to admission - Antepartum regimen: Labetalol 200 mg TID - BP NT to low mild range overnight - PreE labs negative on admission - Per MFM, beta blockade preferable to Procardia given hx SVT and ectopy GDMA2 - Antepartum: Metformin 1000 mg qAM and HS, 22 U NPH HS - PP discontinued Metformin, AM fasting 99 Acute Blood Loss Anemia PPH - Hb on admission 11.5 - Hb POD#1 9.9 - EBL 1100 ml - Asymptomatic, vital signs stable - Iron and colace ordered Obesity - BMI 52 - Encourage ambulation - Prophylactic lovenox until discharge PVCs/Palpitations Intermittent SVT Syncopal episodes - Implantable loop recorder placed 08/31 - Follows with [facility] cards, will follow up with them PP - Maintain Mag >2 - Asymptomatic PP Asthma - Mild, intermittent - Rare albuterol use - No hx hospitalizations or intubations Hypothyroidism - Continue home synthroid 50 mcg daily APLS Recurrent loss - Antepartum: on Lovenox 40 mg and bASA - Ppx Lovenox 6wks PP Migraines - Asymptomatic PP - Follows with [facility] migraines clinic HOSEA - Not on CPAP Anxiety/Depression - Not on medications - Mood stable Disposition: Continue current care Based on my clinical assessment, this patient is safe for self discharge (does not need transport by wheelchair) if she so chooses. Provider's Name: MD Jennifer Mansfield, DO 05/11/2023, 6:00 AM Attestation Statement I saw and evaluated the patient. I agree with the findings and plans of the resident physician, andagree as documented in her note. Doing well POD#2, meeting milestones. LE dopplers completed this morning for LLE swelling - negative. Hx of APLS and will continue Lovenox x 6 weeks. Discussed normal PP swelling and how to manage. BP mostly normal range, rare mild. Asx. FBS 99 this morning - will need 2hr glucola 4-6 weeks PP. Baby boy with partial circ, will plan outpatient circumcision with Peds Urology. Continue current management and plan for discharge POD#3. The total time spent on patient care today was 25 minutes. -10 minutes of the visit face to face patient care for counseling/coordination of care -15 minutes chart review and documentation , 9:50 AM * Hanna Smith DO - 05/10/2023 5:57 AM EDT Images from the original note were not included. Note- POST OPERATIVE DAY # 1 Ambika Brown is a 33 y.o. who was seen & examined today. Her was complicated by: Patient Active Problem List Diagnosis Infertility, female Obesity GERD (gastroesophageal reflux disease) Left-sided weakness Mild intermittent asthma without complication Migraine Hemiplegic migraine without status migrainosus, not intractable Chronic migraine without aura Somatic dysfunction of head region Somatic dysfunction of cervical region Somatic dysfunction of thoracic region Somatic dysfunction of both upper extremities Somatic dysfunction of both lower extremities 37 weeks gestation of Today she is doing well without any chief complaint. Her lochia is light. She denies Headache, Chest Pain, Vision Changes, and Shortness of Breath. She is ambulating well. Flatus present. Bowel movement absent. Voiding without difficulty. She is tolerating solids. Pain is controlled yes. Vital Signs: Vitals: 05/09/23 1200 05/09/23 1555 05/09/23201305/09/23 2327 BP: 135/65 93/64 136/63 96/61 BP Location: Left arm Patient Position: Sitting Pulse: 59 66 74 80 Resp: 18 18 16 17 Temp: 36.4 C (97.5 F) 36.6 C (97.8 F) 36.3 C (97.3 F) 36.6 C (97.8 F) TempSrc: Temporal Temporal Temporal Temporal SpO2: 97% 96% 96% 98% Weight: Height: Urine Input & Output last 24hrs: Intake/Output Summary (Last 24 hours) at 05/10/2023 0557 Last data filed at 05/09/2023 2233 Gross per 24 hour Intake -- Output 850 ml Net -850 ml Physical Exam: GENERAL APPEARANCE: alert, well appearing, in no apparent distress ABDOMEN : benign non-tender, without masses or organomegaly palpable EXTREMITIES: no redness or tenderness in the calves or thighs, no edema NEUROLOGIC: alert, oriented, normal speech, no focal findings or movement disorder noted UTERUS : normal size, well involuted, firm, non-tender Desc; incision: no drainage, Silverlon dressing Labs: Lab Results Component Value Date WBC 15.5 (H) 05/07/2023 HGB 9.9 (L) 05/10/2023 HCT 35.2 05/07/2023 MCV 78.4 (L) 05/07/2023 PLT 211 05/07/2023 O Antibody Screen: No results found for: LABANTI No results found for: RUBELLAIGG LABOR DELIVERY ??? SCD's ONLY (labor through ambulation) SCD's PLUS Prophylactic Anticoagulation until discharge SCD's PLUS Prophylactic Anticoagulation for 6 weeks SCD's PLUS Therapeutic Anticoagulation for 6 weeks Vaginal Delivery BMI ? 40 kg/m2 Delivery All patients Vaginal Delivery BMI ? 40 kg/m2 AND Antepartum hospitalization ? 72 hours within the past month Delivery 1 Major Risk Factor: x BMI ? 35 kg/m2 Low Risk Thrombophilia PPH+RBCs, IR, or operation Infection+Antibiotics Antepartum hospitalization ? 72 hours within the past month PMH: Sickle Cell, SLE, Cardiac Dz, Active IBD, Active Cancer, Nephrotic Syndrome OR 2 Minor Risk Factors: Multiple gestation Age > 40 PPH ? 1,000cc (+)FMH of VTE Smoker Preeclampsia BMI ? 40 kg/m2 AND Low Risk Thrombophilia OR ANY OF THE FOLLOWING: High Risk Thrombophilia without prior VTE Low Risk Thrombophilia with (+)FMH of VTE Any single prior VTE ANY OF THE FOLLOWING: Already on LMWH/UFH Multiple prior VTE High Risk Thrombophilia with prior VTE Low Risk Thrombophilia: FVL (heterozygous), Prothrombin (heterozygous), Protein C, Protein S High Risk Thrombophilia: FVL (homozygous), Prothrombin (homozygous), FVL+Prothrombin (heterozygous), Antithrombin III, APLS Assessment/Plan: Ambika Brown is a 33 y.o. POD # 1 s/p pLTCS 2/2 Cat II FHT Care - Doing well, VSS - Male - breast feeding - Contraception: Per Private Attending - Encourage ambulation and use of incentive spirometer - D/C mijares catheter and saline lock IV on POD #1 - Postop Hb 9.9 - VTE Prophylaxis: Prophylactic Dosing x 6 weeks SIPEwoSF -Met criteria prior to admission -Antepartum regimen labetalol 200 mg TID -BPs normotensive to low mild range, labetalol held overnight -Pre-E labs negative on admission -Per MFM, beta blockade is preferred to Procardia given history of SVT and ectopy GDMA2 -Antepartum regimen: Metformin 1000 mg qAM and HS, 22 units NPH at HS - plan DC medication and obtain AM fasting -AM fastin PPH - QBL 1100 - Preop Hgb 11.5; Postop Hgb 9.9 -VSS, asymptomatic, lochia light -Continue with PO Iron and Colace Maternal Obesity -BMI 52 -SCDs when not ambulatory -Encourage ambulation PVCs/Palpitations Intermittent SVT Syncopal episodes -No syncopal episodes since 06/2022 -Implantable loop recorder placed 08/2022 -Follows with [facility] cardiology, plan to follow-up -Maintain mag levels > 2.0 -Continue home magnesium oxide -Asymptomatic on Asthma -No history of hospitalizations or intubations -Albuterol PRN Hypothyroidism -Continue home Synthroid 50 mcg daily Antiphospholipid Antibody syndrome Recurrent loss -Antepartum on Lovenox 40 mg prophylaxis and bASA -Continue Lovenox 6 weeks Migraines -Asymptomatic on -Follows with [facility] migraine clinic, treated with nerve blockade this -Continue home medication HOSEA -Not using CPAP Anxiety -Related to the loss -Not on medication -Mood stable on Disposition: Continue current care Based on my clinical assessment, this patient is safe for self discharge (does not need transport by wheelchair) if she so chooses. Provider's Name: MD Alyssa Mansfield, 05/10/2023, 5:57 AM ATTENDING NOTE: I personally saw and evaluated the patient. I reviewed the care provided by the Resident including the patient's medical history, physical exam findings, diagnosis and treatment plan. I also agree with the documentation from the Resident unless otherwise indicated: Pt is doing well. Pain controlled. BP stable. --- TOTAL TIME SPENT ON PATIENT ENCOUNTER TODAY: 25 MINUTES: Chart review and preparation: 5 minutes. Face to face: 15 minutes. Documentation and care coordination: 5 minutes. * Marie Garcia - 05/09/2023 2:41 PM EDT Nutrition rescreen completed. Chart reviewed. Patient to be monitored and followed by the diet perinatal technician. RADHA Hope * Maryana Bunn RN - 05/09/2023 6:30 AM EDT Since pt has arrived to the unit at 0450 she has felt nauseous, hot and exhausted. RN helping pt manage symptoms. Pt had Zofran at 0140, pt has a ice pack and a fan on her, no blankets. RN trying to let the pt rest. Pt wants to breastfeed . is on the blood sugar policy and is due to eat. RN assisting pt with at this time. Pt is falling asleep while . Pt states she just does not feel good. RN suggested to pt we can supplement with formula this time via spoon, cup or syringe until she is feeling better. Pt expresses concern that she really wants to breastfeed this time. RN assisting to the football hold position. RN assisting to help infant latch. will get to breast and suck 3-4 sucks and then unlatch and repeat. RN is referring to for further assistance. * Maryana Bunn RN - 05/09/2023 5:30 AM EDT RN secure messaged Resident phyisicans. Per Dr. Sorto, RN is to get a AM fasting blood sugar this morning and the Hemoglobin blood work will be drawn tomorrow morning at 0600. * Nadia Jones DO - 05/07/2023 10:52 PM EDT Images from the original note were not included. Labor Progress Note Date: 05/07/2023 Time: 10:53 PM Subjective: Ambika Navis is a 33 y.o. female at 37w4d admitted for IOL-SIPEwoSF, GDMA2 Complications: SIPEwoSF GDMA2 Obesity PVCs/Palpitations Intermittent SVT Syncopal Episodes Asthma Hypothyroidism Antiphospholipid Antibody Syndrome Recurrent Loss Migraines HOSEA Anxiety SVE on admission: 0//-3 GBS: []Pos [x]Neg []Unknown Cx:defer FHP: defer FHT: Cat I Vergas:irritable A/P: 1. PO Cytotec given at 2230. FHT Cat I with baseline 130s, moderate variability, spontaneous accelerations, and no decelerations. Bps high mild range, home labetalol ordered. Continue to monitor. CCM. Cx:fingertip FHP: defer FHT: Cat I Vergas:q4min FHR Cat I with a baseline of 130 's, moderatevariability, accelerations present, and no decelerations. Mijares bulb attempted but patient did not tolerate. Cervix very thick. Will give second oral cytotec. Continue to titrate per protocol. BP's normotensive. Continue to monitor. CCM Cx:-3 FHP: Defer FHT: Cat I Vergas:q1-4min A/P: 1. IOL-GDMA2. FHT Cat I with normal baseline, moderate variability, spontaneous accelerations present and no significant decelerations. BP normotensive, SVE 3cm. Pitocin ordered, plan for AROM when patient is 4-5 cm. Continue to monitor. CCM Electrically signed Alyssa Mckeon DO 05/08/23 at 9:35 AM Cx: Defer FHT: Cat I Vergas: q 4-5 min A/P: 1. IOL-GDMA2: Baseline 140, moderate variability and accelerations, no decels. Pt still without epidural. Pit @ 2 ml/hr, titrate per protocol. BP normotensive. CCM. Cx:/-3 FHT: Cat I Vergas:q3-4min A/P: 1. IOL-GDMA2 Cat I. BP NT. Pit at 6 ml/rh, will continue to titrate. head remains high and ballotable. Cx: defer FHP:defer FHT: Cat II Vergas:q3-4 min A/P: 1. IOL-GDMA2 FHR baseline is normal. FHT is category II with a rare variable deceleration, but the tracing is overall reassuring with moderate variability and accelerations. Pitocin is at 6cc/hour, continue to titrate per protocol. BP is normotensive. CCM. Cx:defer FHP: defer FHT: Cat I Vergas:not tracing well A/P: 1. IOL-GDMA2,SIPEwoSF FHR Cat I with a baseline of 130 's, moderate variability, accelerations present, and no decelerations . Patient natural and ambulating, difficult to trace at times but is Cat I while tracing. RN working to trace. Pitocin at 8cc/hr. Continue to titrate per protocol. BP's normotensive. Continue to mo nitor. CCM , confirmed with nitrazine. Patient very uncomfortable, getting epidural, does not want to be checked prior to epidural. Dr. Smith updated. Cat I with baseline 120, moderate variability and spontaneous accelerations present. Not tracing contractions at this time due to maternal discomfort, awaiting epidural. CCM. Cx:3/60/-3 FHP:defer FHT: Cat II Vergas:q2-5mins A/P: 1. IOL-GDMA2, SIPEwoSF. FHT Cat II for rare variable decelerations. FHT overall reassuring with baseline 140s, moderate variability, and spontaneous accelerations. IUPC placed at this time. SVE as above. One high mild range BP, continue to monitor. Pitocin at 12cc/hr, continue to titrate per protocol. CCM. placed at this time due to difficulty tracing with multiple position changes. In room due to recurrent late decelerations with slow return to baseline. Pitocin discontinued at this time. Contractions remain q3min. Patient has been repositioned numerous times and has IV fluid boluses running. Dr. Smith updated, will monitor pattern closely and if no resolution advised patientwe would need to proceed with a primary section for category II FHT. Recurrent late decelerations and now minimal variability despite conservative interventions. Discussed with Dr. Smith, will proceed with primary section for category II FHT at this time. Patient aware and consented by myself, please refer to separate safety huddle note. documented in this [facility]09-02-2023 Obstetrics Note* Note - Nga Don RN - 05/12/2023 2:17 AM EDT F/U vs from LC. Mom sleeping. in nursery. Infant has been bottle feeding this shift. [id number] Note - Ruma Lopez RN - 05/11/2023 2:17 PM EDT Mom continues to pump each feeding. Starting to see drops when pumping which is encouraged to her. Declines assistance with latch today, encouraged her to try before discharge tomorrow. Demonstrated the use of her Spectra pump. [id number] Discharge instructions* Discharge Instructions* Hanna Smith DO - 05/10/2023 1:04 PM EDT Images from the original note were not included. After Your Delivery (the Period): Your Care Instructions Congratulations on the of your baby. Like , the period can be a time of excitement, gustabo, and exhaustion. You may look at your wondrous little baby and feel happy. You may also be overwhelmed by your new sleep hours and new responsibilities. In these first weeks after delivery, try to take good care of yourself. It may take 4 to 6 weeks to feel like yourself again, and possibly longer if you had a . You will likely feel very tired for several weeks. Your dayswill be full of ups and downs, but lots of gustabo as well. FOLLOW-UP: Your follow-up care is a pedersen part of your treatment and safety. Follow-up with your OB doctor in 4-6 weeks or as specified by your physician. Be sure to make and go to all appointments, and call yourdoctor if you are having problems. It's also a good idea to know your test results and keep a list of the medicines you take. BLEEDING Vaginal bleeding will decrease in amount over the next few weeks but may be present for as long as 8 weeks after delivery. Bleeding may hot die picker and then decrease again around 7-10 days . Use pads instead of tampons for the bloody flow that may last as long as 2 weeks. You will notice that as your activity increases, your flow may increase. Call your doctor if you are saturating one maxi pad in an hour & passing large clots for 3 hours or more. ACTIVITY NO SEXUAL activity for 6 weeks or until advised by your doctor. Nothing in the vagina for 6 weeks: e.g.) intercourse, tampons, or douching. Showering is okay; NO tub baths, swimming, or hot tubs for 6 weeks. Gradually increase your activity. Resume exercise regimen only after advice by your doctor. Avoid lifting anything heavier than your baby or a gallon of milk for six weeks. Avoid driving 1 week for vaginal delivery and 2 weeks for section, or longer if you are onprescription pain medicine unless otherwise instructed by your doctor. Rise slowly from a lying to sitting and then a standing position. Climb stairs carefully. Use caution when carrying your baby up and down the stairs. You may feel tired or have a lack of energy. Nap when baby naps to catch up on sleep. You may continue your vitamin to replenish nutrients post delivery. EMOTIONS You may feel mackay, sad, teary, & overwhelmed for the first 2 weeks ; however, feelings of post depression may occur any time within the first year after delivery. Contact your OB provider if you feel you may be showing signs of depression, or have thoughts of harming yourself or your infant. If will not stop crying, contact another adult for help or place in their crib on their back and take a break. NEVER shake your infant. WOUND CARE For Vaginal Delivery: Shower daily, and cleanse your perineum (bottom) with mild soap from front to Back. Use the plasticsquirt bottle until bleeding stops each time you use the restroom instead of wiping with toilet paper. Ease soreness of hemorrhoids and the area between your vagina and rectum with ice compresses or witch darnell pads. If used, stitches will dissolve in 4-6 weeks on their own. You may use a sitz bath or soak in a clean tub with drain open and water running for comfort. Kegel exercises will help restore bladder control. To do these tighten your muscles as if you were stopping your urine flow. Hold for a few seconds and then relax. Do these throughout the day. For Section Delivery: Keep your incision clean and dry. If you had steri-strips you may remove these once they start peeling off. If you have des they need to be removed 3-10 days after delivery. If you have steri-strips, remove after 10-14 days. Do not wear clothing that irritates the incision line. If your incision in in a crease that is not dry, use a hair-dryer to dry the area 3 times a day. If you develop fever, shaking chills, redness, swelling, drainage or discharge from your wound, or if your wound looks like it's coming apart call your doctor immediately. For Tubal Ligation: Remove dressing 3 days after being discharged from the hospital. If you develop fever, shaking chills, redness, swelling, drainage or discharge from your wound, or if your wound looks like it's coming apart call your doctor immediately. BREAST CARE If you develop a warm, red, tender area on your breast or develop a fever contact your doctor. For moms: If you become engorged, feeding may be more difficult or painful for 1-2 days. You may find it helpful to hand express some milk so that the can latch on more easily or ease soreness with wet, warm washcloths. While , continue to take your vitamins as directed by your doctor. For non- moms: You may apply ice packs to your breasts over you bra for twenty minutes at a time for comfort. Cabbage leaves may be applied to breasts, replace when wilted. Avoid stimulation to your breasts, when showering allow the water to strike your back not your breasts. Do not express milk or your body will make more. Wear a good fitting bra until your milk dries, such as a sports bra. DIET & CONSTIPATION Eat a well balanced diet focusing on foods high in fiber and protein such as: whole grain cereals and breads, fruits and vegetables and legumes (eg, beans, lentils) Drink 8-10 glasses of fluids daily, especially water. To avoid constipation you may take a mild awhy-wsa-sttscle stool softener (such as colace) as recommended by your doctor. SWELLING Try to keep your legs elevated when you are sitting or lying down. Stay hydrated and take walks. BABY Babies sleep safest on their back in a crib without bumpers, blankets or stuffed animals. DO NOT sleep with your baby in your bed or the couch. DO NOT expose baby to smoke, this can increase risks of asthma and sudden syndrome. Ifyou or someone around baby smokes have them change their shirt and wash any facial hair before holding baby. Do not smoke inside the house and change the ventilation filters in the house before bringing baby home. WHEN TO CALL THE DOCTOR Signs of infection, including fever (101oF) and chills. Increased bleeding: soaking more than one sanitary pad an hour. Wounds that become red, swollen or drain pus. Vaginal discharge that smells foul. Headaches that lasts several hours and will not go away even with headache medications. Visual changes that last several hours and will not go away. Significant pain immediately below your rib cage. New pain, swelling, or tenderness in your legs Pain that you can't control with the medications you've been given. Pain, burning, urgency or frequency of urination, or persistent bleeding in the urine. Cough, shortness of breath, or chest pain. Depression, suicidal thoughts, or feelings of harming your baby. Breasts that are hot, red and accompanied by fever. Any cracking or bleeding from the nipple or areola (the dark-colored area of the breast). In case of an emergency, call 911 immediately. If you are Covid-19 positive or a Person Under Investigation (PUI) Paawvt-ap-juuow transmission of COVID-19 during is unlikely, but after a baby is susceptible to orvevd-fi-ntqfsf spread. After your baby is born, your health care provider may recommend you not hold your baby and/or thatyou stay in a separate room from your baby until you get better. If you and your baby are not , wear a facemask at all times and wash your hands thoroughlybefore touching, holding or feeding your baby. Baby Care & Feeding has many benefits for you and your baby and is the best food for your baby. From whatexperts know so far, COVID-19 has not been found in breastmilk. Having a healthy adult who can assist with baby care until you get better is important, you may want to have a healthy adult feed your baby your expressed breast milk or formula if you chose to not breastfeed. You may use a breast pump to express your breast milk. Wear a face mask, wash your breasts, then wash your hands thoroughly before touching the breast pump and bottle parts. Clean all pump parts after each use. If you choose to breastfeed from your breast, wear a face mask, wash your breasts, wash your hands thoroughly before feeding your baby. These could be signs that your COVID-19 symptoms are worsening and you may need emergency care: You are severely dizzy or lightheaded. You are confused or can't think clearly. Your face and lips have a blue color. You are unable to respond to others or are very hard to wake up. Prevention steps for People with confirmed or suspected COVID-19 (including persons under investigation) who do not need to be hospitalized AND People with confirmed COVID-19 who were hospitalized and determined to be medically stable to go home Your healthcare provider and public health staff will evaluate whe ther you can be cared for at home. If it is determined that you do not need to be hospitalized and can be isolated at home, you willbe monitored by staff from your local or state health department. You should follow the prevention steps below until a healthcare provider or local or state health department says you can return to your normal activities. Stay home except to get medical care People who are mildly ill with COVID-19 are able to isolate at home during their illness. You should restrict activities outside your home, except for getting medical care. Do not go to work, school,or public areas. Avoid using public transportation, ride-sharing, or taxis. Separate yourself from other people and animals in your home People: As much as possible, you should stay in a specific room and away from other people in your home. Also, you should use a separate bathroom, if available. Animals: You should restrict contact with pets and other animals while you are sick with COVID-19, just like you would around other people. Although there have not been reports of pets or other animals becoming sick with COVID-19, it is still recommended that people sick with COVID-19 limit contactwith animals until more information is known about the virus. When possible, have another member ofyour household care for your animals while you are sick. If you are sick with COVID-19, avoid contact with your pet, including petting, snuggling, being kissed or licked, and sharing food. If you must care for your pet or be around animals while you are sick, wash your hands before and after you interact with pets and wear a facemask. Call ahead before visiting your doctor If you have a medical appointment, call the healthcare provider and tell them that you have or may have COVID-19. This will help the healthcare provider's office take steps to keep other people from getting infected or exposed. Wear a facemask You should wear a facemask when you are around other people (e.g., sharing a room or vehicle) or pets and before you enter a healthcare provider's office. If you are not able to wear a facemask (for example, because it causes trouble breathing), then people who live with you should not stay in the same room with you, or they should wear a facemask if they enter your room. Cover your coughs and sneezes Cover your mouth and nose with a tissue when you cough or sneeze. Throw used tissues in a lined trash can. Immediately wash your hands with soap and water for at least 20 seconds or, if soap and water are not available, clean your hands with an alcohol-based hand storage battery inspector that contains at least 60% alcohol. Clean your hands often Wash your hands often with soap and water for at least 20 seconds, especially after blowing your nose, coughing, or sneezing; going to the bathroom; and before eating or preparing food. If soap and water are not readily available, use an alcohol-based hand storage battery inspector with at least 60% alcohol, covering all surfaces of your hands and rubbing them together until they feel dry. Soap and water are the best option if hands are visibly dirty. Avoid touching your eyes, nose, and mouth with unwashed hands. Avoid sharing personal household items You should not share dishes, drinking glasses, cups, eating utensils, towels, or bedding with otherpeople or pets in your home. After using these items, they should be washed thoroughly with soap and water. Clean all high-touch surfaces everyday High touch surfaces include counters, tabletops, doorknobs, bathroom fixtures, toilets, phones, keyboards, tablets, and bedside tables. Also, clean any surfaces that may have blood, stool, or body fluids on them. Use a household cleaning spray or wipe, according to the label instructions. Labels contain instructions for safe and effective use of the cleaning product including precautions you should take when applying the product, such as wearing gloves and making sure you have good ventilation during use of the product. Monitor your symptoms Seek prompt medical attention if your illness is worsening (e.g., difficulty breathing). Before seeking care, call your healthcare provider and tell them that you have, or are being evaluated for, COVID-19. Put on a facemask before you enter the facility. These steps will help the healthcare provider's office to keep other people in the office or waiting room from getting infected or exposed. Askyour healthcare provider to call the local or [facility] health department. Persons who are placed underactive monitoring or facilitated self- monitoring should follow instructions provided by their localhealth department or occupational health professionals, as appropriate. When working with your local health department check their available hours. If you have a medical emergency and need to call 911, notify the dispatch personnel that you have, or are being evaluated for COVID-19. If possible, put on a facemask before emergency medical services arrive. Discontinuing home isolation Patients with confirmed COVID-19 should remain under home isolation precautions until the risk of secondary transmission to others is thought to be low. The decision to discontinue home isolation precautions should be made on a qmcl-vj-xevw basis, in consultation with healthcare providers and [facility] health departments. Information on COVID-19 for ALL patients Call your provider before your next appointment if you develop any of the following symptoms: fever, cough, fatigue, anorexia, shortness of breath, sputum production, and muscle pains. Headache, confusion, rhinorrhea, sore throat, hemoptysis, vomiting, and diarrhea have been reported but are less common. Some persons with COVID-19 have experienced gastrointestinal symptoms such as diarrhea and nausea prior to developing fever and lower respiratory tract signs and symptoms. Ways to [place] with Anxiety & Stress It is normal to feel anxious or worried about COVID-19. You might feel sad about canceling celebrations and staying away from family and friends. Keep in mind that most people do not get severely ill from COVID-19. It is important to have a planin case you get sick to prevent spreading the disease to others including an Advanced Care Plan (communicating and documenting your desired health care plan with family and healthcare team). You can take care of yourself by: Taking a break from watching the news Take deep breaths, stretch or meditate Getting exercise, eating healthy foods, and drinking plenty of water Finding activities you can enjoy inside your home Staying in touch with your family and friends. Tell your partner, family, and friends how you are feeling. Advance Care Planning People with COVID-19 may have no symptoms, mild symptoms, such as fever, cough, and shortness of breath or they may have more severe illness, developing severe and fatal pneumonia. As a result, Advance Care Planning with attention to naming a health care decision maker (someone you trust to make healthcare decisions for you if you could not speak for yourself) and sharing other health care preferences is important BEFORE a possible health crisis. Please contact your Primary Care Provider to discuss Advance Care Planning. LEARNING ABOUT THE CORONAVIRUS (COVID-19): Coronavirus (COVID-19): Overview What is coronavirus (COVID-19)? The coronavirus disease (COVID-19) is caused by a virus. It is an illness that was first found in [facility], in August 2019. It has since spread worldwide. The virus can cause fever, cough, and trouble breathing. In severe cases, it can cause pneumonia and make it hard to breathe without help. It can cause . Coronaviruses are a large group of viruses. They cause the common cold. They also cause more serious illnesses like [place] respiratory syndrome (MERS) and severe acute respiratory syndrome (SARS). COVID-19 is caused by a novel coronavirus. That means it's a new type that has not been seen in people before. This virus spreads qgazst-rp-cuviue through droplets from coughing and sneezing. It can also spreadwhen you are close to someone who is infected. And it can spread when you touch something that has the virus on it, such as a doorknob or a tabletop. What can you do to protect yourself from coronavirus (COVID-19)? The best way to protect yourself from getting sick is to: Avoid areas where there is an outbreak. Avoid contact with people who may be infected. Wash your hands often with soap or alcohol-based hand sanitizers. Avoid crowds and try to stay at least 6 feet away from other people. Wash your hands often, especially after you cough or sneeze. Use soap and water, and scrub for at least 20 seconds. If soap and water aren't available, use an alcohol-based hand storage battery inspector. Call 911 anytime you think you may need emergency care. For example, call if: You have severe trouble breathing. (You can't talk at all.) You have constant chest pain or pressure. You are severely dizzy or lightheaded. You are confused or can't think clearly. Your face and lips have a blue color. You pass out (lose consciousness) or are very hard to wake up. Call your doctor now if you develop symptoms such as: Shortness of breath. Fever. Cough. If you need to get care, call ahead to the doctor's office for instructions before you go. Make sure you wear a face mask, if you have one, to prevent exposing other people to the virus. Where can you get the latest information? The following health organizations are tracking and studying this virus. Their websites contain themost up-to-date information. You'll also learn what to do if you think you may have been exposed tothe virus. U.S. Centers for Disease Control and Prevention (CDC): The CDC provides updated news about the disease and travel advice. The website also tells you how to prevent the spread of infection. www.cdc.gov [facility] Organization (WHO): WHO offers information about the virus outbreaks. WHO also has travel advice. www.who.int Current as of: December 10, 2019 Content Version: 08.13 [employer]. Care instructions adapted under license by your healthcare professional. If you have questions about a medical condition or this instruction, always ask your healthcare professional. [employer] disclaims any warranty or liability for your use of this information. General Recommendations for Routine Cleaning and Disinfection of Households Community members can practice routine cleaning of frequently touched surfaces (for example: tables, doorknobs, light switches, handles, desks, toilets, faucets, sinks) with household family assistant and EPA-registered disinfectants that are appropriate for the surface, following label instructions. Labels contain instructions for safe and effective use of the cleaning product including precautions you should take when applying the product, such as wearing gloves and making sure you have good ventilation during use of the product. These guidelines are focused on household settings and are meant for the general public. Cleaning refers to the removal of germs, dirt, and impurities from surfaces. Cleaning does not killgerms, but by removing them, it lowers their numbers and the risk of spreading infection. Disinfecting refers to using chemicals to kill germs on surfaces. This process does not necessarilyclean dirty surfaces or remove germs, but by killing germs on a surface after cleaning, it can further lower the risk of spreading infection. General Recommendations for Cleaning and Disinfection of Households with People Isolated in Home Care - Confirmed or suspected COVID 19 Household members should educate themselves about COVID-19 symptoms and preventing the spread of COVID-19 in homes. Clean and disinfect high-touch surfaces daily in household common areas (e.g. tables, hard-backed chairs, doorknobs, light switches, remotes, handles, desks, toilets, sinks) In the bedroom/bathroom dedicated for an ill person: consider reducing cleaning frequency to as-needed (e.g., soiled items and surfaces) to avoid unnecessary contact with the ill person. As much as possible, an ill person should stay in a specific room and away from other people in their home. The caregiver can provide personal cleaning supplies for an ill person's room and bathroom, unless the room is occupied by child or another person for whom such supplies would not be appropriate. These supplies include tissues, paper towels, family assistant and EPA-registered disinfectants (see list link at CDC website). If a separate bathroom is not available, the bathroom should be cleaned and disinfected after each use by an ill person. If this is not possible, the caregiver should wait as long as practical after use by an ill person to clean and disinfect the high-touch surfaces. How to clean and disinfect: Hard Surfaces Wear disposable gloves when cleaning and disinfecting surfaces. Gloves should be discarded after each cleaning. If reusable gloves are used, those gloves should be dedicated for cleaning and disinfection of surfaces for COVID-19 and should not be used for other purposes. Consult the new patient escort's instructions for cleaning and disinfection products used. Clean hands immediately after gloves are removed. If surfaces are dirty, they should be cleaned using a detergent or soap and water prior to disinfection. For disinfection, diluted household bleach solutions, alcohol solutions with at least 70% alcohol, and most common EPA-registered household disinfectants should be effective. Diluted household bleach solutions can be used if appropriate for the surface. Follow new patient escort's instructions for application and proper ventilation. Check to ensure the product is not past its expiration date. Never mix household bleach with ammonia or any other cleanser. Unexpired household bleach will be effective against coronaviruses when properly diluted. Prepare a bleach solution by mixin tablespoons (1/3rd cup) bleach per gallon of water or 4 teaspoons bleach per quart of water Products with EPA-approved emerging viral pathogens [facility]ternal icon are expected to be effective against COVID-19 based on data for harder to kill viruses. Follow the new patient escort's instructions for all cleaning and disinfection products (e.g., concentration, application method and contact time, etc.). Soft (porous) surfaces such as carpeted floor, rugs, and drapes Remove visible contamination if present and clean with appropriate family assistant indicated for use on these surfaces. After cleaning: Launder items as appropriate in accordance with the new patient escort's instructions. If possible, launder items using the warmest appropriate water setting for the items and dry items completely, or Clothing, towels, linens and other items that go in the laundry Wear disposable gloves when handling dirty laundry from an ill person and then discard after each use. If using reusable gloves, those gloves should be dedicated for cleaning and disinfection of surfaces for COVID-19 and should not be used for other household purposes. Clean hands immediately aftergloves are removed. If no gloves are used when handling dirty laundry, be sure to wash hands afterwards. If possible, do not shake dirty laundry. This will minimize the possibility of dispersing virus through the air. Launder items as appropriate in accordance with the new patient escort's instructions. If possible, launder items using the warmest appropriate water setting for the items and dry items completely. Dirty laundry from an ill person can be washed with other people's items. Clean and disinfect clothes hampers according to guidance above for surfaces. If possible, considerplacing a bag loader machine operator that is either disposable (can be thrown away) or can be laundered. CDC has a list of EPA approved cleaning products on their website - https://www.cdc.gov/coronavirus/ 2019-ncov/community/home/cleaning-disinfection.html https://www.[employer].NaHere/Wkmok-Cncrvvyfdaj-Ybkjbfwy-Products-List.pdf [employer] Stores with delivery and hot die picker services: [employer]: Free hot die picker at locations Delivery is $12.95 a month Website - [employer] [place]: D[employer]gem[employer] $2.95 (1st order is free) Delivery is $14.95 Website - [employer]: space systems operations superintendent is free Delivery is $5.95 Website - [facility] [employer]: space systems operations superintendent is $4.95 Delivery is $9.95 [employer]: space systems operations superintendent is $4.95 Delivery is $9.95 Website - [employer]: Can be ordered for delivery and hot die picker with [employer] Website - [employer]: Free deliver for first 3 orders of $35 or more Website - [employer] (Inspect Manager) Will deliver from [employer], [employer], [employer], and [employer]. Annual membership is $99 Monthly membership is $14 documented in this [facility]08-31-2023 NoteNo successful latch with baby's recent attempt. Observed mom cup feed baby, mom demonstrated good technique with procedure. Will continue to pump each attempt. Called for a personal pump also.[facility]s [facility]* Note - Ruma Lopez RN - 05/10/2023 10:51 AM EDT No successful latch with baby's recent attempt. Observed mom cup feed baby, mom demonstrated good technique with procedure. Will continue to pump each attempt. Called for a personal pump also. [id number]stetric[facility] Note* Note - Ruma Lopez RN - 05/10/2023 6:15 AM EDT Called to assist with feeding. Mom feels infant is latching to the left nipple, does not latch to the rt. Baby is now becoming fussy and frustrated when latching to either side and she is unable to console infant. Observed attempt to latch, shallow suckling with cheeks dimpling in. No swallows noted, falls asleep quickly. Validated moms concerns, lack of swallowing and shallow latch. Recommended pumping with hospital pump to support supply, pump set up and explained. Showed mom how to cup feed, baby took 12cc of formula and was content. Patient will continue to attempt latch, pump after each attempt and cup feed STEVEN/formula while babyis not transferring milk. [id number] Obstetrics Note* Note - Tiara Smiley RN - 05/09/2023 3:11 PM EDT Attempted at breast for 15 mins , latched a few sucks then would fall asleep. Hand expressed with mother for 1 ml and fed to . Mother able to hand express drops on her own. Hand expression of breast milk taught and return demonstration given. Patient able to easily express drops of colostrum. Patient educated that hand expression can be helpful in assisting baby with latch and stimulating milk production. Encouraged frequent hand expression - before, after and betweenfeeds - to boost milk production. Mom concerned regarding baby's sleepiness. Helped mom place baby skin to skin. Discussed importanceof skin to skin for infants adaptation to extra-uterine life, infants development and for mom's milk production. Reviewed infants feeding cues and sleep cycles. Taught mom hand expression, colostrum obtained and placed on infants lips. Naps encouraged. Reassurance given to mom. Instructed dad on touch pad to call for LC when baby shows interest in feeding. Mom and Dad voiced understanding. Patient states she has insulin resistance and talking to doctor about continuing metformin Educated MARGARITA Patrick and patient, if no latch by 24 hrs, will need to start double electric pumping breast and supplementing with STEVEN or formula if STEVEN not available Gave patient outpatient resources since clinical staff pharmacist declines diagnosis of tongue tie. Educated when would need corrected and gave recommendations [id number] Note* Care Coordination - Reema Avila RN - 05/09/2023 12:23 PM EDT Date: 05/09/2023 Name: Ambika Brown : 1990 [facility] Patient Information Primary Caregiver: Self Accompanied by/Relationship: S/O;Family Marital Status: Support System: SO/Family Presybeterian/Cultural Factors: Jehovah'S Witness Activities of Daily Living Communication: See demographics Living Arrangements Current Residence: Private residence Lives With: S/O; Family Support System: S/O; Family Income Information Income Source: Employed Financial Resource Strain How hard is it for you to pay for the very basics like food, housing, medical care and heating? N/A Housing Stability In the last 12 months, was there a time when you did not have a steady place to sleep or slept in ashelter (including now)? No Transportation Needs Has the lack of Transportation kept you from medical appointments? No In the past 12 months, has the lack of transportation kept you from meetings, work, or from gettingthings needed for daily living? No Food Insecurity Within the past 12 months, have you worried that your food would run out before you got the money to buy more? No Stress Do you feel stress - tense, restless, nervous, or anxious, or unable to sleep at night because you mind is troubled all the time? Mood stable Referral To Financial Resources: N/A Community Resources: Admission folder given upon admission to PP Unit Social Work: N/A CLP: N/A Medical Information 33 year old admitted for induction of labor for NORAH, GDMA2 at 37/4 weeks. 6 Para 0. delivery. 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 B. C's of safe sleep. Always place your baby on his or her back to sleep, use a firm sleep surface and your baby should not sleep in an adult bed, on a couch or chair. Keep soft objects, toys and loose bedding out of your baby's sleep area. Reviewed depression. It is common to have blues. This is a normal response to many of the hormonalchanges, stress and lack of sleep that go with raising a and physically recovering from thebirth. Don't hesitate to talk to your provider with any concerns. There are resources in your home going booklet. To help prevent germs from spreading to you and your baby, make sure everyone washes t heir hands before they handle your . Avoid crowds, and keep infant away from sick people, anyone who is sick with a cough or fever, including family members. Post- warning signs information reviewed with patient per nurse with discharge Additional Information: Patient is independent and has insurance. She is prepared with her baby supplies. To be discharged to home. Denies any concerns at this time. Mental Health Services: Resources in discharge folder Equipment: Developmental Delay: N/A Children's Services: N/A [id number] Note* Care Coordination - Reema Avila RN - 05/09/2023 12:23 PM EDT Date: 05/09/2023 Name: Ambika Brown : 1990 [facility] Information [place] Patient Information Primary Caregiver: Self Accompanied by/Relationship: S/O;Family Marital Status: Support System: SO/Family Presybeterian/Cultural Factors: Jehovah'S Witness Activities of Daily Living Communication: See demographics Living Arrangements Current Residence: Private residence Lives With: S/O; Family Support System: S/O; Family Income Information Income Source: Employed Financial Resource Strain How hard is it for you to pay for the very basics like food, housing, medical care and heating? N/A Housing Stability In the last 12 months, was there a time when you did not have a steady place to sleep or slept in ashelter (including now)? No Transportation Needs Has the lack of Transportation kept you from medical appointments? No In the past 12 months, has the lack of transportation kept you from meetings, work, or from gettingthings needed for daily living? No Food Insecurity Within the past 12 months, have you worried that your food would run out before you got the money to buy more? No Stress Do you feel stress - tense, restless, nervous, or anxious, or unable to sleep at night because you mind is troubled all the time? Mood stable Referral To Financial Resources: N/A Community Resources: Admission folder given upon admission to PP Unit Social Work: N/A CLP: N/A Medical Information 33 year old admitted for induction of labor for NORAH, GDMA2 at 37/4 weeks. 6 Para 0. delivery. 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 B. C's of safe sleep. Always place your baby on his or her back to sleep, use a firm sleep surface and your baby should not sleep in an adult bed, on a couch or chair. Keep soft objects, toys and loose bedding out of your baby's sleep area. Reviewed depression. It is common to have blues. This is a normal response to many of the hormonalchanges, stress and lack of sleep that go with raising a and physically recovering from thebirth. Don't hesitate to talk to your provider with any concerns. There are resources in your home going booklet. To help prevent germs from spreading to you and your baby, make sure everyone washes t heir hands before they handle your . Avoid crowds, and keep infant away from sick people, anyone who is sick with a cough or fever, including family members. Post- warning signs information reviewed with patient per nurse with discharge Additional Information: Patient is independent and has insurance. She is prepared with her baby supplies. To be discharged to home. Denies any concerns at this time. Mental Health Services: Resources in discharge folder Equipment: Developmental Delay: N/A Children's Services: N/A [facility] [id number] Obstetrics Note* Note - Tiara Smiley RN - 05/09/2023 6:50 AM EDT Called to room with assistance latching. Mother currently very nauseous and vomiting, consents to help with Attempted infant on breast for 20 min's and no latch achieved. On and off latch observed. Checked infant for tongue tie and signs of tongue tie present, let primary RN collins serna know about tonguetie. HAND EXPRESSED 1 ml AND GIVEN TO INFANT Mom concerned regarding baby's sleepiness. Helped mom place baby skin to skin. Discussed importanceof skin to skin for infants adaptation to extra-uterine life, infants development and for mom's milk production. Reviewed infants feeding cues and sleep cycles. Taught mom hand expression, colostrum obtained and placed on infants lips. Naps encouraged. Reassurance given to mom. Instructed dad on touch pad to call for LC when baby shows interest in feeding. Mom and Dad voiced understanding. Hand Expression of colostrum/breast milk taught and return demonstration given. Patient able to express drops of colostrum. Patient educated that hand expression can be helpful in assisting baby withlatch, softening areola when engorged and stimulating milk production. Encouraged frequent hand expression- before, after and between feeds-to boost milk production. Initial visit with mom. On demand, cue based, unlimited feeding reinforced, at least 8 times in 24 hours (after the first 24 hours). Feeding cues and output parameters discussed. Frequent skin to skin encouraged. Discussed benefits of skin to skin and milk production. Demand and supply system of breast milk production discussed. Risks of early formula supplementation and use of bottle/artificial nipple/ pacifier discussed with patient. Patient receptive to teaching. Patient's questions answered. Encouraged to call LC as needed, reviewed touch pad with patient. SHOWN HOW TO CALL AND ENCOURAGED TO CALL FOR ASSISTANCE WITH LATCHING [facility] [id number] NotePatient: Ambika Brown Procedure Summary Date: 05/08/23 Room / Location: [facility] Labor and Delivery Anesthesia Start: 2137 Anesthesia Stop: Procedure: DELIVERY (Abdomen) Diagnosis: ( Intolerance of Labor) Surgeons: Hanna Smith DO Responsible Provider: Michi Holland MD Anesthesia Type: epidural ASA Status: 3 Anesthesia Type: epidural Vitals Value Taken Time BP 95/84 05/09/23 0242 Temp 98.0 05/09/23 0242 Pulse 80 05/09/23 0242 Resp 18 05/09/23 0242 SpO2 99 05/09/23 0242 Anesthesia Post Evaluation Patient location during evaluation: PACU Patient participation: complete - patient participated Level of consciousness: awake and alert Pain management: satisfactory to patient Airway patency: patent Dental Injury: no Cardiovascular status: acceptable, blood pressure returned to baseline and hemodynamically stable Respiratory status: acceptable and spontaneous ventilation Hydration status: euvolemic Nausea/Vomiting: controlled No notable events documented. Patient can be discharged once all PACU criteria has been met.[facility]08-30-2023 NotePatient: Ambika Brown Procedure Summary Date: 05/08/23 Room / Location: [facility] Labor and Delivery Anesthesia Start: 2137 Anesthesia Stop: Procedure: DELIVERY (Abdomen) Diagnosis: ( Intolerance of Labor) Surgeons: Hanna Smith DO Responsible Provider: Michi Holland MD Anesthesia Type: epidural ASA Status: 3 Anesthesia Type: epidural Vitals Value Taken Time BP 95/84 05/09/23 0242 Temp 98.0 05/09/23 0242 Pulse 80 05/09/23 0242 Resp 18 05/09/23 0242 SpO2 99 05/09/23 0242 Anesthesia Post Evaluation Patient location during evaluation: PACU Patient participation: complete - patient participated Level of consciousness: awake and alert Pain management: satisfactory to patient Multimodal analgesia pain management approach Airway patency: patent Two or more strategies used to mitigate risk of obstructive sleep apnea Cardiovascular status: acceptable and hemodynamically stable Respiratory status: acceptable Hydration status: acceptable No notable events documented. MIPS #[id number] PONV Patient did not receive an inhalational anesthetic ([id number]) MIPS # 424 Perioperative Temperature Management Anesthesia time was 60 minutes or longer (4255F) At least one body temperature greater than 95.8F/35.5C achieved within the 30 mins immediately prior to or the 15 minutes immediately following anesthesia end time (G9771) MIPS #477 Multimodal Pain Management Emergent case Exlusion- Stop here (M1142) MIPS #404 Anesthesiology Smoking Abstinence The patient is not a current smoker (e.g. cigarette, cigar, pipe, e-cigarette/vaping/marijuana) If no stop here (G9644) I completed my handoff to the receiving clinician during which we: 1. Identified the patient 2. Identified the responsible provider 3. Reviewed the pertinent medical history 4. Discussed the surgical course 5. Reviewed intra-op anesthesia management and issues during anesthesia 6. Set expectations for post-procedure period 7. Allowed opportunity for questions and acknowledgement of understanding.[facility] [id number] NotePeripheral Block Time Out: 05/09/2023 2:28 AM Patient location during procedure: Procedural Start time: 05/09/2023 2:29 AM End time: 05/09/2023 2:32 AM Reason for block: at surgeon's request and post-op pain management Staffing Performed: CIVIL ENGINEERING PROFESSIONAL Resident/CIVIL ENGINEERING PROFESSIONAL: MARIA FERNANDA Vela CRNA Preanesthetic Checklist Completed: patient identified, IV checked, site marked, risks and benefits discussed, surgical consent, monitors and equipment checked, pre-op evaluation and timeout performed Region: [place] Primary: TAP (60ml of Bupivacaine 0.375% with dexamethasone 0.01% with epinephrine 1:200,000 divided evenly bilaterally) Peripheral Block Patient position: supine Prep: ChloraPrep Patient monitoring: heart rate, 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 Needle Needle: 21G X 110 mm Additional Notes 05/09/2023 2:29 AM Assessment Injection assessment: negative aspiration for heme, no paresthesia on injection, incremental injection and local visualized surrounding nerve on ultrasound Paresthesia pain: none Heart rate change: no Slow fractionated injection: yes Required Documentation: Relevant anatomy identified (Nerves, Vessels, Muscles), Negative for blood on aspiration, Local anesthetic injected incrementally with intermittent aspiration every 5 mL, No EKG changes noted, No symptoms of toxicity, Local anesthetic spread visualized around nerves or plane., Normal resistance with injection, No paresthesias reported by patient during injection and Local anesthetic injected without difficultyMedications [id number]-[id number] (TAP) syringe - Injection 60 mL - 05/09/2023 2:31:00 [facility]08-30-2023 Note* Anesthesia Discharge Note - Gabriel Mehta APRN - JASON - 05/09/2023 2:42 AM EDT Patient: Ambika Brown Procedure Summary Date: 05/08/23 Room / Location: [facility] Labor and Delivery Anesthesia Start: 2137 Anesthesia Stop: Procedure: DELIVERY (Abdomen) Diagnosis: ( Intolerance of Labor) Surgeons: Hanna Smith DO Responsible Provider: Michi Holland MD Anesthesia Type: epidural ASA Status: 3 Anesthesia Type: epidural Vitals Value Taken Time BP 95/84 05/09/23 0242 Temp 98.0 05/09/23 0242 Pulse 80 05/09/23 0242 Resp 18 05/09/23 0242 SpO2 99 05/09/23 0242 Anesthesia Post Evaluation Patient location during evaluation: PACU Patient participation: complete - patient participated Level of consciousness: awake and alert Pain management: satisfactory to patient Airway patency: patent Dental Injury: no Cardiovascular status: acceptable, blood pressure returned to baseline and hemodynamically stable Respiratory status: acceptable and spontaneous ventilation Hydration status: euvolemic Nausea/Vomiting: controlled No notable events documented. Patient can be discharged once all PACU criteria has been met. [facility] [id number] Anesthesiology Postoperative evaluation and management note* Anesthesia Postprocedure Evaluation - MARIA FERNANDA Vela CRNA - 05/09/2023 2:42 AM EDT Patient: Ambika Brown Procedure Summary Date: 05/08/23 Room / Location: [facility] Labor and Delivery Anesthesia Start: 2137 Anesthesia Stop: Procedure: DELIVERY (Abdomen) Diagnosis: ( Intolerance of Labor) Surgeons: Hanna Smith DO Responsible Provider: Michi Holland MD Anesthesia Type: epidural ASA Status: 3 Anesthesia Type: epidural Vitals Value Taken Time BP 95/84 05/09/23 0242 Temp 98.0 05/09/23 0242 Pulse 80 05/09/23 0242 Resp 18 05/09/23 0242 SpO2 99 05/09/23 0242 Anesthesia Post Evaluation Patient location during evaluation: PACU Patient participation: complete - patient participated Level of consciousness: awake and alert Pain management: satisfactory to patient Multimodal analgesia pain management approach Airway patency: patent Two or more strategies used to mitigate risk of obstructive sleep apnea Cardiovascular status: acceptable and hemodynamically stable Respiratory status: acceptable Hydration status: acceptable No notable events documented. MIPS #430 PONV Patient did not receive an inhalational anesthetic (XX430) MIPS # 424 Perioperative Temperature Management Anesthesia time was 60 minutes or longer (4255F) At least one body temperature greater than 95.8F/35.5C achieved within the 30 mins immediately prior to or the 15 minutes immediately following anesthesia end time (G9771) MIPS #477 Multimodal Pain Management Emergent case Exlusion- Stop here (M1142) MIPS #404 Anesthesiology Smoking Abstinence The patient is not a current smoker (e.g. cigarette, cigar, pipe, e- cigarette/vaping/marijuana) If no stop here (G9644) I completed my handoff to the receiving clinician during which we: 1. Identified the patient 2. Identified the responsible provider 3. Reviewed the pertinent medical history 4. Discussed the surgical course 5. Reviewed intra-op anesthesia management and issues during anesthesia 6. Set expectations for post-procedure period 7. Allowed opportunity for questions and acknowledgement of understanding. [facility] [employer] Phone: 1(121) 735-581008-30-2023 Miscellaneous Notes* Anesthesia Discharge Note - MARIA FERNANDA Vela CRNA - 05/09/2023 2:42 AM EDT Patient: Ambika Brown Procedure Summary Date: 05/08/23 Room / Location: [facility] Labor and Delivery Anesthesia Start: 2137 Anesthesia Stop: Procedure: DELIVERY (Abdomen) Diagnosis: ( Intolerance of Labor) Surgeons: Hanna Smith DO Responsible Provider: Michi Holland MD Anesthesia Type: epidural ASA Status: 3 Anesthesia Type: epidural Vitals Value Taken Time BP 95/84 05/09/23 0242 Temp 98.0 05/09/23 0242 Pulse 80 05/09/23 0242 Resp 18 05/09/23 0242 SpO2 99 05/09/23 0242 Anesthesia Post Evaluation Patient location during evaluation: PACU Patient participation: complete - patient participated Level of consciousness: awake and alert Pain management: satisfactory to patient Airway patency: patent Dental Injury: no Cardiovascular status: acceptable, blood pressure returned to baseline and hemodynamically stable Respiratory status: acceptable and spontaneous ventilation Hydration status: euvolemic Nausea/Vomiting: controlled No notable events documented. Patient can be discharged once all PACU criteria has been met. documented in this [facility]08-30-2023 Surgical operation note* Anesthesia Postprocedure Evaluation - MARIA FERNANDA Vela CRNA - 05/09/2023 2:42 AM EDT Patient: Ambika Brown Procedure Summary Date: 05/08/23 Room / Location: [facility] Labor and Delivery Anesthesia Start: 2137 Anesthesia Stop: Procedure: DELIVERY (Abdomen) Diagnosis: ( Intolerance of Labor) Surgeons: Hanna Smith DO Responsible Provider: Michi Holland MD Anesthesia Type: epidural ASA Status: 3 Anesthesia Type: epidural Vitals Value Taken Time BP 95/84 05/09/23 0242 Temp 98.0 05/09/23 0242 Pulse 80 05/09/23 0242 Resp 18 05/09/23 0242 SpO2 99 05/09/23 0242 Anesthesia Post Evaluation Patient location during evaluation: PACU Patient participation: complete - patient participated Level of consciousness: awake and alert Pain management: satisfactory to patient Multimodal analgesia pain management approach Airway patency: patent Two or more strategies used to mitigate risk of obstructive sleep apnea Cardiovascular status: acceptable and hemodynamically stable Respiratory status: acceptable Hydration status: acceptable No notable events documented. MIPS #430 PONV Patient did not receive an inhalational anesthetic (XX430) MIPS # 424 Perioperative Temperature Management Anesthesia time was 60 minutes or longer (4255F) At least one body temperature greater than 95.8F/35.5C achieved within the 30 mins immediately prior to or the 15 minutes immediately following anesthesia end time (G9771) MIPS #477 Multimodal Pain Management Emergent case Exlusion- Stop here (M1142) MIPS #404 Anesthesiology Smoking Abstinence The patient is not a current smoker (e.g. cigarette, cigar, pipe, e- cigarette/vaping/marijuana) If no stop here (G9644) I completed my handoff to the receiving clinician during which we: 1. Identified the patient 2. Identified the responsible provider 3. Reviewed the pertinent medical history 4. Discussed the surgical course 5. Reviewed intra-op anesthesia management and issues during anesthesia 6. Set expectations for post-procedure period 7. Allowed opportunity for questions and acknowledgement of understanding. * Anesthesia Procedure Notes - MARIA FERNANDA Vela CRNA - 05/09/2023 2:28 AM EDTAssociated Order(s): Peripheral Block Peripheral Block Time Out: 05/09/2023 2:28 AM Patient location during procedure: Procedural Start time: 05/09/2023 2:29 AM End time: 05/09/2023 2:32 AM Reason for block: at surgeon's request and post-op pain management Staffing Performed: [employer] Resident/CIVIL ENGINEERING PROFESSIONAL: MARIA FERNANDA Vela CRNA Preanesthetic Checklist Completed: patient identified, IV checked, site marked, risks and benefits discussed, surgical consent, monitors and equipment checked, pre-op evaluation and timeout performed Region: [place] Primary: TAP (60ml of Bupivacaine 0.375% with dexamethasone 0.01% with epinephrine 1:200,000 divided evenly bilaterally) Peripheral Block Patient position: supine Prep: ChloraPrep Patient monitoring: heart rate, 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 Needle Needle: 21G X 110 mm Additional Notes 05/09/2023 2:29 AM Assessment Injection assessment: negative aspiration for heme, no paresthesia on injection, incremental injection and local visualized surrounding nerve on ultrasound Paresthesia pain: none Heart rate change: no Slow fractionated injection: yes Required Documentation: Relevant anatomy identified (Nerves, Vessels, Muscles), Negative for blood on aspiration, Local anesthetic injected incrementally with intermittent aspiration every 5 mL, No EKG changes noted, No symptoms of toxicity, Local anesthetic spread visualized around nerves or plane., Normal resistance with injection, No paresthesias reported by patient during injection and Local anesthetic injected without difficultyMedications kwvAIBUErbpwf-ckfsfdrrctz-cwmfbthoeqi (TAP) syringe - Injection 60 mL - 05/09/2023 2:31:00 AM * Anesthesia Procedure Notes - MARIA FERNANDA Bauer CRNA - 05/08/2023 10:07 PM EDTAssociated Order(s): Epidural Block Epidural Block Time Out: 05/08/2023 9:46 PM Patient location during procedure: OB Start time: 05/08/2023 9:46 PM End time: 05/08/2023 10:00 PM Reason for block: labor analgesia Staffing Performed: [facility] Resident/CIVIL ENGINEERING PROFESSIONAL: MARIA FERNANDA Bauer CRNA Performed by: MARIA FERNANDA Bauer CRNA Authorized by: MARIA FERNANDA Bauer CRNA Preanesthetic Checklist Completed: patient identified, IV checked, site marked, risks and benefits discussed, surgical consent, monitors and equipment checked, pre-op evaluation, timeout performed, IV bolus and anesthesia consent given Block Placement Patient position: sitting Prep: ChloraPrep Sterility prep: ape, gloves, cap, hand and mask Sedation level: no sedation Patient monitoring: heart rate Approach: midline Location: lumbar Lumbar location: L3-L4 Epidural Loss of resistance technique: saline Guidance: landmark technique Needle Needle type: Luz Needle gauge: 17 G Needle length: 9 cm Needle insertion depth: 9 cm Catheter type: multi-orifice Catheter size: 19 G Catheter at skin depth: 15 cm Catheter securement method: surgical tape, liquid medical adhesive and clear occlusive dressing Test dose: negative Medications Administered lidocaine-EPINEPHrine (Xylocaine W/EPI) 1.5 %-1: injection - Epidural 3 mL - 05/08/2023 9:54:00 PM Assessment Block outcome: pain improved Number of attempts: 1 Procedure assessment: patient tolerated procedure well with no immediate complications * Anesthesia Preprocedure Evaluation - MARIA FERNANDA Melendez CRNA - 05/07/2023 10:04 PM EDT Patient: Ambika Brown Procedure Information Date: 05/07/23 Procedure: Labor Analgesia Relevant Problems Cardio (+) Chronic migraine without aura (+) Hemiplegic migraine without status migrainosus, not intractable (+) Migraine GI (+) GERD (gastroesophageal reflux disease) Neuro/Psych (+) Chronic migraine without aura (+) Hemiplegic migraine without status migrainosus, not intractable (+) Left-sided weakness (+) Migraine Pulmonary (+) Mild intermittent asthma without complication Other (+) 37 weeks gestation of Clinical information reviewed: Tobacco Allergies Meds Med Hx Surg Hx Fam Hx Soc Hx Physical Exam Airway Mallampati: III TM distance: >3 FB Neck ROM: full Mouth Open: normalendotracheal tube not in place Cardiovascular - normal exam Dental dentition normal Pulmonary - normal exam Abdominal (+) obese Anesthesia Plan patient is NPO appropriate Any family history or previous problems with anesthesia no ASA 3 epidural Any family history or previous problems with anesthesia no The patient is not a current smoker. Anesthetic plan and risks discussed with patient. Use of blood products discussed with who consented to blood products. Additional Equipment Requests documented in this [place] [id number] Anesthesiology procedure note * Anesthesia Procedure Notes - MARIA FERNANDA Vela CRNA - 05/09/2023 2:28 AM EDTAssociated Order(s): Peripheral Block Peripheral Block Time Out: 05/09/2023 2:28 AM Patient location during procedure: Procedural Start time: 05/09/2023 2:29 AM End time: 05/09/2023 2:32 AM Reason for block: at surgeon's request and post-op pain management Staffing Performed: [employer] Resident/CIVIL ENGINEERING PROFESSIONAL: MARIA FERNANDA Vela CRNA Preanesthetic Checklist Completed: patient identified, IV checked, site marked, risks and benefits discussed, surgical consent, monitors and equipment checked, pre-op evaluation and timeout performed Region: Truncal Primary: TAP (60ml of Bupivacaine 0.375% with dexamethasone 0.01% with epinephrine 1:200,000 divided evenly bilaterally) Peripheral Block Patient position: supine Prep: ChloraPrep Patient monitoring: heart rate, 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 Needle Needle: 21G X 110 mm Additional Notes 05/09/2023 2:29 AM Assessment Injection assessment: negative aspiration for heme, no paresthesia on injection, incremental injection and local visualized surrounding nerve on ultrasound Paresthesia pain: none Heart rate change: no Slow fractionated injection: yes Required Documentation: Relevant anatomy identified (Nerves, Vessels, Muscles), Negative for blood on aspiration, Local anesthetic injected incrementally with intermittent aspiration every 5 mL, No EKG changes noted, No symptoms of toxicity, Local anesthetic spread visualized around nerves or plane., Normal resistance with injection, No paresthesias reported by patient during injection and Local anesthetic injected without difficultyMedications igoHGJNTcedvj-qvpnxwhcrwa-bjgymeywfro (TAP) syringe - Injection 60 mL - 05/09/2023 2:31:00 AM [id number] NoteEpidural Block Time Out: 05/08/2023 9:46 PM Patient location during procedure: OB Start time: 05/08/2023 9:46 PM End time: 05/08/2023 10:00 PM Reason for block: labor analgesia Staffing Performed: [facility] Resident/CIVIL ENGINEERING PROFESSIONAL: MARIA FERNANDA Bauer CRNA Performed by: MARIA FERNANDA Bauer CRNA Authorized by: MARIA FERNANDA Bauer CRNA Preanesthetic Checklist Completed: patient identified, IV checked, site marked, risks and benefits discussed, surgical consent, monitors and equipment checked, pre-op evaluation, timeout performed, IV bolus and anesthesia consent given Block Placement Patient position: sitting Prep: ChloraPrep Sterility prep: drape, gloves, cap, hand and mask Sedation level: no sedation Patient monitoring: heart rate Approach: midline Location: lumbar Lumbar location: L3-L4 Epidural Loss of resistance technique: saline Guidance: landmark technique Needle Needle type: [employer] Needle gauge: 17 G Needle length: 9 cm Needle insertion depth: 9 cm Catheter type: multi-orifice Catheter size: 19 G Catheter at skin depth: 15 cm Catheter securement method: surgical tape, liquid medical adhesive and clear occlusive dressing Test dose: negative Medications Administered lidocaine-EPINEPHrine (Xylocaine W/EPI) 1.5 %-1:737752 injection - Epidural 3 mL - 05/08/2023 9:54:00 PM Assessment Block outcome: pain improved Number of attempts: 1 Procedure assessment: patient tolerated procedure well with no immediate complicationsDuane [facility]. [facility]-29-[facility] Procedure anesthesia Narrative* Procedure Summary Procedure Name Responsible Anesthesiologist Anesthesia Start Time Anesthesia Stop Time DELIVERY (Abdomen) Michi Holland MD 05/08/23213705/09/23 0243 Events Date Time Event Comment 05/08/20232137 An Start 05/09/2023 0112 Epidural to 0112 In Room 0112 An Start Data 0123 Anesthesia Ready 0131 Proc Start 0139 Uterine Incision 0140 Baby Delivered 0141 Cord Clamped 0142 AN Placenta 0228 Block Placed 0234 Proc Fin 0235 Epidural Catheter Removed 0235 an stop data 0237 Out of Room 0243 An Stop Meds Name Total lidocaine-EPINEPHrine (Xylocaine W/EPI) 1.5 %-1:144619 injection 3 mL ropivacaine (Naropin) 0.2 % (OB) epidura l infusion 31.33 mL ropivacaine 2 mg/mL bolus 10 mL lidocaine 2%-EPINEPHrine 1:200,000 (Xylo lexi W/EPI) injection 115 mg ePHEDrine injection 10 mg dexAMETHasone (Decadron) PF injection 10 mg/mL 10 mg morphine PF (Duramorph) injection 0.5 mg /mL 2.5 mg ceFAZolin (Ancef) 3,000 mg in sodium chl oride 0.9 % 100 mL IVPB 6,000 mg sodium bicarbonate injection 0.5 mEq/mL 2.5 mEq azithromycin (Zithromax) 500 mg in sodium chloride 0.9 % 250 mL IVPB (ADD-[place]) 500 mg ondansetron (Zofran) injection 4 mg 4 mg oxytocin (Pitocin) 30 units in 500 mL in fusion 490.22 mL acetaminophen (Ofirmev) injection 1,000 mg ljiXRQZWxjpmq-dombpkxpuqx-yxzvsipcsze (T AP) syringe 60 mL lactated Ringer's (LR) infusion 0 mL * Agents No agents on file. * Blood No blood administrations on file. Lines, Drains, and Airways Type Details Placement Removal Peripheral IV Placement Date: 04/11 06/02; Placement Time: 114; Catheter Size: 20 G; Orientation: Anterior, Left; Location: Hand; Site Prep: Alcohol; Local Anesth: None; Technique: Anatomical landmarks; Inserted by: Juan 05/08/23 1140 by Aparna Martinez RN Urethral Catheter Placement Date: 04/12 ; Placement Time: 0046; Inserted by: Ruth Jimenez RN; Size: 16 Fr.; Balloon Size: 10 mL; Urine Returned: Yes 05/09/23 0046 by Shiloh Jimenez RN Wound/Incision 05/09/23; 0230; N; 0 weeks; Incision; Abdomen Lower Quadrant; Midline, Lower; incision, well approximated and sutured together. dressing applied and is clean, dry, and intact 05/09/23 0230 by Shiloh Jimenez RN Epidural Placement Date: 04/11 06/02; Placement Time: 2145 (created via procedure documentation); Location: Lumbar (1-5); Removal Date: 05/09/23; Removal Time: 02305/08/232145 by MARIA FERNANDA Bauer CRNA 05/09/23234 by MARIA FERNANDA Vela CRNA documented in this encounter [facility] [id number] Anesthesiology procedure note* Anesthesia Procedure Notes - MARIA FERNANDA Bauer CRNA - 05/08/2023 10:07 PM EDTAssociated Order(s): Epidural Block Epidural Block Time Out: 05/08/2023 9:46 PM Patient location during procedure: OB Start time: 05/08/2023 9:46 PM End time: 05/08/2023 10:00 PM Reason for block: labor analgesia Staffing Performed: [facility] Resident/CIVIL ENGINEERING PROFESSIONAL: MARIA FERNANDA Bauer CRNA Performed by: MARIA FERNANDA Bauer CRNA Authorized by: MARIA FERNANDA Bauer CRNA Preanesthetic Checklist Completed: patient identified, IV checked, site marked, risks and benefits discussed, surgical consent, monitors and equipment checked, pre-op evaluation, timeout performed, IV bolus and anesthesia consent given Block Placement Patient position: sitting Prep: ChloraPrep Sterility prep: drape, gloves, cap, hand and mask Sedation level: no sedation Patient monitoring: heart rate Approach: midline Location: lumbar Lumbar location: L3-L4 Epidural Loss of resistance technique: saline Guidance: landmark technique Needle Needle type: [employer] Needle gauge: 17 G Needle length: 9 cm Needle insertion depth: 9 cm Catheter type: multi-orifice Catheter size: 19 G Catheter at skin depth: 15 cm Catheter securement method: surgical tape, liquid medical adhesive and clear occlusive dressing Test dose: negative Medications Administered lidocaine-EPINEPHrine (Xylocaine W/EPI) 1.5 %-1:224840 injection - Epidural 3 mL - 05/08/2023 9:54:00 PM Assessment Block outcome: pain improved Number of attempts: 1 Procedure assessment: patient tolerated procedure well with no immediate complications [employer] Phone: [phone]) 225-567708-29-2023 NoteLabor Progress Note Date: 05/07/2023 Time: 10:53 PM Subjective: Ambika Brown is a 33 y.o. female at 37w4d admitted for IOL-SIPEwoSF, GDMA2 Complications: SIPEwoSF GDMA2 Obesity PVCs/Palpitations Intermittent SVT Syncopal Episodes Asthma Hypothyroidism Antiphospholipid Antibody Syndrome Recurrent Loss Migraines HOSEA Anxiety SVE on admission: 0//-3 GBS: []Pos [x]Neg []Unknown Cx:defer FHP: defer FHT: Cat I Vergas:irritable A/P: 1. PO Cytotec given at 2230. FHT Cat I with baseline 130s, moderate variability, spontaneous accelerations, and no decelerations. Bps high mild range, home labetalol ordered. Continue to monitor. CCM. Cx:fingertip FHP: defer FHT: Cat I Vergas:q4min FHR Cat I with a baseline of 130 's, moderatevariability, accelerations present, and no decelerations. Mijares bulb attempted but patient did not tolerate. Cervix very thick. Will give second oral cytotec. Continue to titrate per protocol. BP's normotensive. Continue to monitor. CCM Cx:/-3 FHP: Defer FHT: Cat I Vergas:q1-4min A/P: 1. IOL-GDMA2. FHT Cat I with normal baseline, moderate variability, spontaneous accelerations present and no significant decelerations. BP normotensive, SVE 3cm. Pitocin ordered, plan for AROM when patient is 4-5 cm. Continue to monitor. CCM Electrically signed Alyssa Mckeon DO 05/08/23 at 9:35 AM Cx: Defer FHT: Cat I Vergas: q 4-5 min A/P: 1. IOL-GDMA2: Baseline 140, moderate variability and accelerations, no decels. Pt still without epidural. Pit @ 2 ml/hr, titrate per protocol. BP normotensive. CCM. Cx:60/-3 FHT: Cat I Vergas:q3-4min A/P: 1. IOL-GDMA2 Cat I. BP NT. Pit at 6 ml/rh, will continue to titrate. head remains high and ballotable. Cx: defer FHP:defer FHT: Cat II Vergas:q3-4 min A/P: 1. IOL-GDMA2 FHR baseline is normal. FHT is category II with a rare variable deceleration, but the tracing is overall reassuring with moderate variability and accelerations. Pitocin is at 6cc/hour, continue to titrate per protocol. BP is normotensive. CCM. Cx:defer FHP: defer FHT: Cat I Vergas:not tracing well A/P: 1. IOL-GDMA2,SIPEwoSF FHR Cat I with a baseline of 130 's, moderate variability, accelerations present, and no decelerations . Patient natural and ambulating, difficult to trace at times but is Cat I while tracing. RN working to trace. Pitocin at 8cc/hr. Continue to titrate per protocol. BP's normotensive. Continue to monitor. CCM , confirmed with nitrazine. Patient very uncomfortable, getting epidural, does not want to be checked prior to epidural. Dr. Smith updated. Cat I with baseline 120, moderate variability and spontaneous accelerations present. Not tracing contractions at this time due to maternal discomfort, awaiting epidural. CCM. Cx:3/60/-3 FHP:defer FHT: Cat II Vergas:q2-5mins A/P: 1. IOL-GDMA2, SIPEwoSF. FHT Cat II for rare variable decelerations. FHT overall reassuring with baseline 140s, moderate variability, and spontaneous accelerations. IUPC placed at this time. SVE as above. One high mild range BP, continue to monitor. Pitocin at 12cc/hr, continue to titrate per protocol. CCM. placed at this time due to difficulty tracing with multiple position changes. In room due to recurrent late decelerations with slow return to baseline. Pitocin discontinued at this time. Contractions remain q3min. Patient has been repositioned numerous times and has IV fluid boluses running. Dr. Smith updated, will monitor pattern closely and if no resolution advised patient we would need to proceed with a primary section for category II FHT. Recurrent late decelerations and now minimal variability despite conservative interventions. Discussed with Dr. Smith, will proceed with primary section for category II FHT at this time. Patient aware and consented by myself, please refer to separate safety huddle note. [facility]08-29-2023 NotePatient: Ambika Brown Procedure Information Date: 05/07/23 Procedure: Labor Analgesia Relevant Problems Cardio (+) Chronic migraine without aura (+) Hemiplegic migraine without status migrainosus, not intractable (+) Migraine GI (+) GERD (gastroesophageal reflux disease) Neuro/Psych (+) Chronic migraine without aura (+) Hemiplegic migraine without status migrainosus, not intractable (+) Left-sided weakness (+) Migraine Pulmonary (+) Mild intermittent asthma without complication Other (+) 37 weeks gestation of Clinical information reviewed: Tobacco Allergies Meds Med Hx Surg Hx Fam Hx Soc Hx Physical Exam Airway Mallampati: III TM distance: >3 FB Neck ROM: full Mouth Open: normalendotracheal tube not in place Cardiovascular - normal exam Dental dentition normal Pulmonary - normal exam Abdominal (+) obese Anesthesia Plan patient is NPO appropriate Any family history or previous problems with anesthesia no ASA 3 epidural Any family history or previous problems with anesthesia no The patient is not a current smoker. Anesthetic plan and risks discussed with patient. Use of blood products discussed with who consented to blood products. Additional Equipment [facility]08-28-[facility]23 NotePatient: Ambika Brown Procedure Information Date/Time: 05/07/231999 Procedure: INDUCTION Location: [facility] LABOR & DELIVERY Relevant Problems Cardio (+) Chronic migraine without aura (+) Hemiplegic migraine without status migrainosus, not intractable (+) Migraine GI (+) GERD (gastroesophageal reflux disease) Neuro/Psych (+) Chronic migraine without aura (+) Hemiplegic migraine without status migrainosus, not intractable (+) Left-sided weakness (+) Migraine Pulmonary (+) Mild intermittent asthma without complication Other (+) 37 weeks gestation of Clinical information reviewed: Allergies Meds Physical Exam Anesthesia Plan Additional Equipment [facility]08-28-2023 NoteObstetrical History and Physical CHIEF COMPLAINT: IOL-NORAH, GDMA2 HISTORY OF PRESENT ILLNESS: The patient is a 33 y.o. female at 37w4d OB History 6 Para 0 Term AB 5 Living 0 SAB IAB Ectopic Multiple Live Births Patient presents with a chief complaint as above and is being admitted for induction Denies DFM/VB/LOF/LONG/EpigastricPain/Visual changes Estimated Due Date: Estimated Date of Delivery: 05/24/23 PC-01 HARDSTOP. Current EGA is 37w4d Is this patient being delivered between 71i2z-44v0d weeks with an acceptable medical indication (obstetric, maternal, and/or )? YES: This patient is between 89j4c-87t6v and DOES have an acceptable indication(s) for delivery: (charlie all that apply) OBSTETRIC INDICATIONS: Pre-existing hypertension with superimposed pre-eclampsia and Gestational Diabetes, controlled by oral hypoglycemic drugs , INDICATIONS: N/A: indications not applicable to this patient. See obstetrical or maternal, Pre-existing essential, secondary, or unspecified maternal hypertension complicating or childbirth CARE: Complications: See Below PAST OB HISTORY: OB History Para Term AB Living 6 0 5 0 SAB IAB Ectopic Multiple Live Births # Outcome Date GA Lbr Marco/2nd Weight Sex Delivery Anes PTL Lv 6 Current 5 AB 4 AB 3 AB 2 AB 1 AB Detailed OB History G1 SAB G2 SAB G3 SAB G4 SAB G5 Ectopic G6 Current Past Medical History: Past Medical History: Diagnosis Date Asthma GERD (gastroesophageal reflux disease) Infertility, female Joint pain b/l knees, b/l ankles Lupus anticoagulant affecting in second trimester, antepartum (HCC) Migraines Obesity Sinus tachycardia Past Surgical History: Past Surgical History: Procedure Laterality Date CHOLECYSTECTOMY CVHX IMPLANTABLE LOOP RECORDER SYSTEM 08/23/2022 TONSILLECTOMY (HISTORICAL) WISDOM TOOTH EXTRACTION Allergies: Prochlorperazine and Diphenhydramine Social History: Social History Socioeconomic History Marital status: Spouse name: Luis Brown Number of children: Not on file Years of education: Not on file Highest education level: Not on file Occupational History Not on file Tobacco Use Smoking status: Never Smokeless tobacco: Never Substance and Sexual Activity Alcohol use: No Drug use: No Sexual activity: Not on file Other Topics Concern Not on file Social History Narrative Not on file Social Determinants of Health Financial Resource Strain: Low Risk (03/21/2023) Overall Financial Resource Strain (CARDIA) Difficulty of Paying Living Expenses: Not hard at all Food Insecurity: No Food Insecurity (03/21/2023) Hunger Vital Sign Worried About Running Out of Food in the Last Year: Never true Ran Out of Food in the Last Year: Never true Transportation Needs: No Transportation Needs (12/26/2022) PRAPARE - Transportation Lack of Transportation (Medical): No Lack of Transportation (Non-Medical): No Physical Activity: Not on file Stress: Not on file Social Connections: Not on file Intimate Partner Violence: Not on file Housing Stability: Low Risk (12/26/2022) Housing Stability Vital Sign Unable to Pay for Housing in the Last Year: No Number of Places Lived in the Last Year: 1 Unstable Housing in the Last Year: No Family History: Family History Problem Relation Name Age of Onset Hypertension Mother Diabetes Paternal Grandmother Diabetes Paternal Grandfather Diabetes Maternal Grandfather Diabetes Maternal Grandmother Hypertension Father Medications Prior to Admission: Medications Prior to Admission Medication Sig Dispense Refill Last Dose ascorbic acid (Vitamin C) 500 MG tablet Take 500 mg by mouth 2 times daily. aspirin 81 MG EC tablet Take 162 mg by mouth daily. cholecalciferol (Vitamin D3) 200 Unit tablet split tablet Take by mouth. enoxaparin (Lovenox) 40 MG/0.4ML solution prefilled syringe Inject 40 mg under the skin daily. famotidine (Pepcid) 10 MG tablet Take 20 mg by mouth Nightly. labetalol (Normodyne) 200 MG tablet Take 1 tablet (200 mg) by mouth 3 times daily. 90 tablet 5 levothyroxine (Synthroid, Levoxyl) 50 MCG tablet Take 50 mcg by mouth every morning (before breakfast). magnesium oxide (Mag-Ox) 400 (240 Mg) MG tablet Take 1 tablet (400 mg) by mouth daily. Do not start before December 30, 2022. 30 tablet 11 metFORMIN (Glucophage) 500 MG tablet Take 1,500 mg by mouth Once. DH-Tea-MX-[place]-3 ( GUMMIES/DHA & FA PO) Take 2 tablets by mouth daily. sodium chloride 0.9 % nebulizer solution with albuterol (5 MG/ML) 0.5% nebulizer solution 0.9 mg/mL Inhale 2 puffs 4 times daily as needed. REVIEW OF SYSTEMS: Const: Negative HEENT: Negative Resp: Negative CVS: Negative GI: Negative : Negative MSK: Negative Breast: Negative Skin: Negative Heme/Lymph:Negative Endo: Nega (more content not included)...[facility]08-28-2023 Anesthesiology Preoperative evaluation and management note* Anesthesia Preprocedure Evaluation - MARIA FERNANDA Melendez CRNA - 05/07/2023 10:04 PM EDT Patient: Ambika Brown Procedure Information Date: 05/07/23 Procedure: Labor Analgesia Relevant Problems Cardio (+) Chronic migraine without aura (+) Hemiplegic migraine without status migrainosus, not intractable (+) Migraine GI (+) GERD (gastroesophageal reflux disease) Neuro/Psych (+) Chronic migraine without aura (+) Hemiplegic migraine without status migrainosus, not intractable (+) Left-sided weakness (+) Migraine Pulmonary (+) Mild intermittent asthma without complication Other (+) 37 weeks gestation of Clinical information reviewed: Tobacco Allergies Meds Med Hx Surg Hx Fam Hx Soc Hx Physical Exam Airway Mallampati: III TM distance: >3 FB Neck ROM: full Mouth Open: normalendotracheal tube not in place Cardiovascular - normal exam Dental dentition normal Pulmonary - normal exam Abdominal (+) obese Anesthesia Plan patient is NPO appropriate Any family history or previous problems with anesthesia no ASA 3 epidural Any family history or previous problems with anesthesia no The patient is not a current smoker. Anesthetic plan and risks discussed with patient. Use of blood products discussed with who consented to blood products. [id number] History and physical note* Letitia Reyes MD - 05/07/2023 8:40 PM EDT Obstetrical History and Physical CHIEF COMPLAINT: IOL-NORAH, GDMA2 HISTORY OF PRESENT ILLNESS: The patient is a 33 y.o. female at 37w4d OB History 6 Para 0 Term AB 5 Living 0 SAB IAB Ectopic Multiple Live Births Patient presents with a chief complaint as above and is being admitted for induction Denies DFM/VB/LOF/LONG/EpigastricPain/Visual changes Estimated Due Date: Estimated Date of Delivery: 05/24/23 -01 HARDSTOP. Current EGA is 37w4d Is this patient being delivered between 81c4f-00a4u weeks with an acceptable medical indication (obstetric, maternal, and/or )? YES: This patient is between 66h0e-65e9j and DOES have an acceptable indication(s) for delivery: (charlie all that apply) OBSTETRIC INDICATIONS: Pre- existing hypertension with superimposed pre-eclampsiaand Gestational Diabetes, controlled by oral hypoglycemic drugs , INDICATIONS: N/A: eleazar cations not applicable to this patient. See obstetrical or maternal, Pre- existing essential, secondary, or unspecified maternal hypertension complicating or childbirth CARE: Complications: See Below PAST OB HISTORY: OB History Para Term AB Living 6 0 5 0 SAB IAB Ectopic Multiple Live Births # Outcome Date GA Lbr Marco/2nd Weight Sex Delivery Anes PTL Lv 6 Current 5 AB 4 AB 3 AB 2 AB 1 AB Detailed OB History G1 SAB G2 SAB G3 SAB G4 SAB G5 Ectopic G6 Current Past Medical History: Past Medical History: Diagnosis Date Asthma GERD (gastroesophageal reflux disease) Infertility, female Joint pain b/l knees, b/l ankles Lupus anticoagulant affecting in second trimester, antepartum (HCC) Migraines Obesity Sinus tachycardia Past Surgical History: Past Surgical History: Procedure Laterality Date CHOLECYSTECTOMY CVHX IMPLANTABLE LOOP RECORDER SYSTEM 08/23/2022 TONSILLECTOMY (HISTORICAL) WISDOM TOOTH EXTRACTION Allergies: Prochlorperazine and Diphenhydramine Social History: Social History Socioeconomic History Marital status: Spouse name: Luis Brown Number of children: Not on file Years of education: Not on file Highest education level: Not on file Occupational History Not on file Tobacco Use Smoking status: Never Smokeless tobacco: Never Substance and Sexual Activity Alcohol use: No Drug use: No Sexual activity: Not on file Other Topics Concern Not on file Social History Narrative Not on file Social Determinants of Health Financial Resource Strain: Low Risk (03/21/2023) Overall Financial Resource Strain (CARDIA) Difficulty of Paying Living Expenses: Not hard at all Food Insecurity: No Food Insecurity (03/21/2023) Hunger Vital Sign Worried About Running Out of Food in the Last Year: Never true Ran Out of Food in the Last Year: Never true Transportation Needs: No Transportation Needs (12/26/2022) PRAPARE - Transportation Lack of Transportation (Medical): No Lack of Transportation (Non-Medical): No Physical Activity: Not on file Stress: Not on file Social Connections: Not on file Intimate Partner Violence: Not on file Housing Stability: Low Risk (12/26/2022) Housing Stability Vital Sign Unable to Pay for Housing in the Last Year: No Number of Places Lived in the Last Year: 1 Unstable Housing in the Last Year: No Family History: Family History Problem Relation Name Age of Onset Hypertension Mother Diabetes Paternal Grandmother Diabetes Paternal Grandfather Diabetes Maternal Grandfather Diabetes Maternal Grandmother Hypertension Father Medications Prior to Admission: Medications Prior to Admission Medication Sig Dispense Refill Last Dose ascorbic acid (Vitamin C) 500 MG tablet Take 500 mg by mouth 2 times daily. aspirin 81 MG EC tablet Take 162 mg by mouth daily. cholecalciferol (Vitamin D3) 200 Unit tablet split tablet Take by mouth. enoxaparin (Lovenox) 40 MG/0.4ML solution prefilled syringe Inject 40 mg under the skin daily. famotidine (Pepcid) 10 MG tablet Take 20 mg by mouth Nightly. labetalol (Normodyne) 200 MG tablet Take 1 tablet (200 mg) by mouth 3 times daily. 90 tablet 5 levothyroxine (Synthroid, Levoxyl) 50 MCG tablet Take 50 mcg by mouth every morning (before breakfast). magnesium oxide (Mag-Ox) 400 (240 Mg) MG tablet Take 1 tablet (400 mg) by mouth daily. Do not startbefore December 30, 2022. 30 tablet 11 metFORMIN (Glucophage) 500 MG tablet Take 1,500 mg by mouth Once. BE-Ilz-DF-[place]-3 ( GUMMIES/DHA & FA PO) Take 2 tablets by mouth daily. sodium chloride 0.9 % nebulizer solution with albuterol (5 MG/ML) 0.5% nebulizer solution 0.9 mg/mLInhale 2 puffs 4 times daily as needed. REVIEW OF SYSTEMS: Const: Negative HEENT: Negative Resp: Negative CVS: Negative GI: Negative : Negative MSK: Negative Breast: Negative Skin: Negative Heme/Lymph:Negative Endo: Negative Neuro: Negative Psych: Negative PHYSICAL EXAM: There were no vitals filed for this visit. General appearance: awake, alert, cooperative, no apparent distress, and appears stated age Neurologic: Awake, alert, oriented to name, place and time. Lungs: No increased work of breathing, good air exchange Abdomen: Soft, non tender, gravid, consistent with her gestational age Sterile Speculum Exam: Membranes: Intact HSV Lesions:not applicable Cervix: 0//-3 Contraction frequency: irregular Labs: CBC: No results found for: WBC, RBC, HGB, HCT, MCV, MCH, MCHC, RDW, PLT, MPV and CMP: No results found for: NA, K, CL, CO2, BUN, CREATININE, AGRATIO, LABGLOM, GLUCOSE, GLU, PROT, CALCIUM, BILITOT, ALKPHOS, AST, ALT Blood Type/Rh: No results found for: RH Group B Strep: No components found for: GRPBPCR Fetus: EFW: 7lbs by Leopolds Presentation: vertex by U/S Price Score: 1 0 1 2 3 Position Posterior Mid Anterior - Consistency Firm Medium Soft - Effacement 0-30% 40-50% 60-70% 80% or > Dilation 0cm 1-2cm 3-4cm 5cm or > Station -3 -2 -1, 0 +1, +2 LABOR DELIVERY ??? SCD's ONLY (labor through ambulation) SCD's PLUS Prophylactic Anticoagulation until discharge SCD's PLUS Prophylactic Anticoagulation for 6 weeks SCD's PLUS Therapeutic Anticoagulation for 6 weeks Vaginal Delivery [] BMI ? 40 kg/m2 Delivery All patients Vaginal Delivery [] BMI ? 40 kg/m2 AND [] Antepartum hospitalization ? 72 hours within the past month Delivery 1 Major Risk Factor: [] BMI ? 35 kg/m2 [] Low Risk Thrombophilia [] PPH+RBCs, IR, or operation [] Infection+Antibiotics [] Antepartum hospitalization ? 72 hours within the past month [] PMH: Sickle Cell, SLE, Cardiac Dz, Active IBD, Active Cancer, Nephrotic Syndrome OR 2 Minor Risk Factors: [] Multiple gestation [] Age > 40 [] PPH ? 1,000cc [] (+)FMH of VTE [] Smoker [] Preeclampsia [] BMI ? 40 kg/m2 AND [] Low Risk Thrombophilia OR ANY OF THE FOLLOWING: [] High Risk Thrombophilia without prior VTE [] Low Risk Thrombophilia with (+)FMH of VTE [] Any single prior VTE ANY OF THE FOLLOWING: [] Already on LMWH/UFH [] Multiple prior VTE [] High Risk Thrombophilia with prior VTE Low Risk Thrombophilia: FVL (heterozygous), Prothrombin (heterozygous), Protein C, Protein S High Risk Thrombophilia: FVL (homozygous), Prothrombin (homozygous), FVL+Prothrombin (heterozygous), Antithrombin III, APLS ASSESSMENT AND PLAN: 1. IOL-SIPEwoSF, GDMA2 Admission: Admit to L&D FHR: Category 1 Celestone: not indicated Pain control plan: desires none Delivery Plan: Cytotec, FB, Pitocin, AROM GBS: GBS negative, No indication for GBS prophylaxis LARC: declines Intrapartum SCDs: Indicated and Ordered VTE Prophylaxis: Prophylactic Dosing x 6 weeks SIPEwoSF - Continue Labetalol 200mg TID - Asymptomatic on admission - BP on admission high mild range, did not take afternoon labetalol, will give tonight - PreE labs negative - Per MFM, beta blockade is preferred to procardia given hx of SVT and ectopy GDMA2 - Had known insulin resistance prior to , but was not on medications, with 10/06 A1C 5.8 - Metformin 1000mg qAM and at HS, 22units NPH at HS - Patient reports she missed her NPH dose last night - Admission BGT 113, plan to recheck in one hour as patient recently ate carb heavy meal - Plan for q4h POCT Glucose in latent labor and q1h in active labor - Plan: stop meds, get AM fasting POCT G Obesity - BMI 51.7 - SCDs ordered - Encourage early ambulation PVCs/Palpitations Intermittent SVT Syncopal Episodes - No syncopal episodes since 06/2022 - Implantable loop recorder placed 08/2022 - Follows with [facility], plan to fu postpartm - Maintain Mag level >2.0 - Continue home mag oxide - Asymptomatic on admission Asthma - No history of hospitalizations/intubations - Albuterol PRN Hypothyroid - 04/03 TSH 2.54 - Continue home synthroid 50 mcg daily Antiphospholipid Antibody Syndrome Recurrent Loss - Diagnosis based on SABx4 and positive Lupus Anticoagulant - On Lovenox 40mg prophylaxis and bASA - Last dose of lovenox on 05/05 - Plan: continue meds for 6 weeks PP Migraines - Asymptomatic on admission - [facility], treated with nerve blockade this - Intermittent LONG with labetalol - Continue home medications HOSEA - Not using CPAP Anxiety - Related to loss - Mood appropriate - No medications Discussed with Dr Burleson, who agrees with plan. Letitia Reyes MD 05/07/2023, 8:40 PM [id number] History and physical note* Letitia Reyes MD - 05/07/2023 8:40 PM EDT Obstetrical History and Physical CHIEF COMPLAINT: IOL-NORAH, GDMA2 HISTORY OF PRESENT ILLNESS: The patient is a 33 y.o. female at 37w4d OB History 6 Para 0 Term AB 5 Living 0 SAB IAB Ectopic Multiple Live Births Patient presents with a chief complaint as above and is being admitted for induction Denies DFM/VB/LOF/LONG/EpigastricPain/Visual changes Estimated Due Date: Estimated Date of Delivery: 05/24/23 PC-01 HARDSTOP. Current EGA is 37w4d Is this patient being delivered between 52e0m-25f7b weeks with an acceptable medical indication (obstetric, maternal, and/or )? YES: This patient is between 85v9y-96k1z and DOES have an acceptable indication(s) for delivery: (charlie all that apply) OBSTETRIC INDICATIONS: Pre- existing hypertension with superimposed pre-eclampsiaand Gestational Diabetes, controlled by oral hypoglycemic drugs , INDICATIONS: N/A: eleazar cations not applicable to this patient. See obstetrical or maternal, Pre- existing essential, secondary, or unspecified maternal hypertension complicating or childbirth CARE: Complications: See Below PAST OB HISTORY: OB History Para Term AB Living 6 0 5 0 SAB IAB Ectopic Multiple Live Births # Outcome Date GA Lbr Marco/2nd Weight Sex Delivery Anes PTL Lv 6 Current 5 AB 4 AB 3 AB 2 AB 1 AB Detailed OB History G1 SAB G2 SAB G3 SAB G4 SAB G5 Ectopic G6 Current Past Medical History: Past Medical History: Diagnosis Date Asthma GERD (gastroesophageal reflux disease) Infertility, female Joint pain b/l knees, b/l ankles Lupus anticoagulant affecting in second trimester, antepartum (HCC) Migraines Obesity Sinus tachycardia Past Surgical History: Past Surgical History: Procedure Laterality Date CHOLECYSTECTOMY CVHX IMPLANTABLE LOOP RECORDER SYSTEM 08/23/2022 TONSILLECTOMY (HISTORICAL) WISDOM TOOTH EXTRACTION Allergies: Prochlorperazine and Diphenhydramine Social History: Social History Socioeconomic History Marital status: Spouse name: Luis Brown Number of children: Not on file Years of education: Not on file Highest education level: Not on file Occupational History Not on file Tobacco Use Smoking status: Never Smokeless tobacco: Never Substance and Sexual Activity Alcohol use: No Drug use: No Sexual activity: Not on file Other Topics Concern Not on file Social History Narrative Not on file Social Determinants of Health Financial Resource Strain: Low Risk (03/21/2023) Overall Financial Resource Strain (CARDIA) Difficulty of Paying Living Expenses: Not hard at all Food Insecurity: No Food Insecurity (03/21/2023) Hunger Vital Sign Worried About Running Out of Food in the Last Year: Never true Ran Out of Food in the Last Year: Never true Transportation Needs: No Transportation Needs (12/26/2022) PRAPARE - Transportation Lack of Transportation (Medical): No Lack of Transportation (Non-Medical): No Physical Activity: Not on file Stress: Not on file Social Connections: Not on file Intimate Partner Violence: Not on file Housing Stability: Low Risk (12/26/2022) Housing Stability Vital Sign Unable to Pay for Housing in the Last Year: No Number of Places Lived in the Last Year: 1 Unstable Housing in the Last Year: No Family History: Family History Problem Relation Name Age of Onset Hypertension Mother Diabetes Paternal Grandmother Diabetes Paternal Grandfather Diabetes Maternal Grandfather Diabetes Maternal Grandmother Hypertension Father Medications Prior to Admission: Medications Prior to Admission Medication Sig Dispense Refill Last Dose ascorbic acid (Vitamin C) 500 MG tablet Take 500 mg by mouth 2 times daily. aspirin 81 MG EC tablet Take 162 mg by mouth daily. cholecalciferol (Vitamin D3) 200 Unit tablet split tablet Take by mouth. enoxaparin (Lovenox) 40 MG/0.4ML solution prefilled syringe Inject 40 mg under the skin daily. famotidine (Pepcid) 10 MG tablet Take 20 mg by mouth Nightly. labetalol (Normodyne) 200 MG tablet Take 1 tablet (200 mg) by mouth 3 times daily. 90 tablet 5 levothyroxine (Synthroid, Levoxyl) 50 MCG tablet Take 50 mcg by mouth every morning (before breakfast). magnesium oxide (Mag-Ox) 400 (240 Mg) MG tablet Take 1 tablet (400 mg) by mouth daily. Do not startbefore December 30, 2022. 30 tablet 11 metFORMIN (Glucophage) 500 MG tablet Take 1,500 mg by mouth Once. AV-Mja-IZ-[place]-3 ( GUMMIES/DHA & FA PO) Take 2 tablets by mouth daily. sodium chloride 0.9 % nebulizer solution with albuterol (5 MG/ML) 0.5% nebulizer solution 0.9 mg/mLInhale 2 puffs 4 times daily as needed. REVIEW OF SYSTEMS: Const: Negative HEENT: Negative Resp: Negative CVS: Negative GI: Negative : Negative MSK: Negative Breast: Negative Skin: Negative Heme/Lymph:Negative Endo: Negative Neuro: Negative Psych: Negative PHYSICAL EXAM: There were no vitals filed for this visit. General appearance: awake, alert, cooperative, no apparent distress, and appears stated age Neurologic: Awake, alert, oriented to name, place and time. Lungs: No increased work of breathing, good air exchange Abdomen: Soft, non tender, gravid, consistent with her gestational age Sterile Speculum Exam: Membranes: Intact HSV Lesions:not applicable Cervix: 0//-3 Contraction frequency: irregular Labs: CBC: No results found for: WBC, RBC, HGB, HCT, MCV, MCH, MCHC, RDW, PLT, MPV and CMP: No results found for: NA, K, CL, CO2, BUN, CREATININE, AGRATIO, LABGLOM, GLUCOSE, GLU, PROT, CALCIUM, BILITOT, ALKPHOS, AST, ALT Blood Type/Rh: No results found for: RH Group B Strep: No components found for: GRPBPCR Fetus: EFW: 7lbs by Leopolds Presentation: vertex by U/S Price Score: 1 0 1 2 3 Position Posterior Mid Anterior - Consistency Firm Medium Soft - Effacement 0-30% 40-50% 60-70% 80% or > Dilation 0cm 1-2cm 3-4cm 5cm or > Station -3 -2 -1, 0 +1, +2 LABOR DELIVERY ??? SCD's ONLY (labor through ambulation) SCD's PLUS Prophylactic Anticoagulation until discharge SCD's PLUS Prophylactic Anticoagulation for 6 weeks SCD's PLUS Therapeutic Anticoagulation for 6 weeks Vaginal Delivery [] BMI ? 40 kg/m2 Delivery All patients Vaginal Delivery [] BMI ? 40 kg/m2 AND [] Antepartum hospitalization ? 72 hours within the past month Delivery 1 Major Risk Factor: [] BMI ? 35 kg/m2 [] Low Risk Thrombophilia [] PPH+RBCs, IR, or operation [] Infection+Antibiotics [] Antepartum hospitalization ? 72 hours within the past month [] PMH: Sickle Cell, SLE, Cardiac Dz, Active IBD, Active Cancer, Nephrotic Syndrome OR 2 Minor Risk Factors: [] Multiple gestation [] Age > 40 [] PPH ? 1,000cc [] (+)FMH of VTE [] Smoker [] Preeclampsia [] BMI ? 40 kg/m2 AND [] Low Risk Thrombophilia OR ANY OF THE FOLLOWING: [] High Risk Thrombophilia without prior VTE [] Low Risk Thrombophilia with (+)FMH of VTE [] Any single prior VTE ANY OF THE FOLLOWING: [] Already on LMWH/UFH [] Multiple prior VTE [] High Risk Thrombophilia with prior VTE Low Risk Thrombophilia: FVL (heterozygous), Prothrombin (heterozygous), Protein C, Protein S High Risk Thrombophilia: FVL (homozygous), Prothrombin (homozygous), FVL+Prothrombin (heterozygous), Antithrombin III, APLS ASSESSMENT AND PLAN: 1. IOL-SIPEwoSF, GDMA2 Admission: Admit to L&D FHR: Category 1 Celestone: not indicated Pain control plan: desires none Delivery Plan: Cytotec, FB, Pitocin, AROM GBS: GBS negative, No indication for GBS prophylaxis LARC: declines Intrapartum SCDs: Indicated and Ordered VTE Prophylaxis: Prophylactic Dosing x 6 weeks SIPEwoSF - Continue Labetalol 200mg TID - Asymptomatic on admission - BP on admission high mild range, did not take afternoon labetalol, will give tonight - PreE labs negative - Per MFM, beta blockade is preferred to procardia given hx of SVT and ectopy GDMA2 - Had known insulin resistance prior to , but was not on medications, with 10/06 A1C 5.8 - Metformin 1000mg qAM and at HS, 22units NPH at HS - Patient reports she missed her NPH dose last night - Admission BGT 113, plan to recheck in one hour as patient recently ate carb heavy meal - Plan for q4h POCT Glucose in latent labor and q1h in active labor - Plan: stop meds, get AM fasting POCT G Obesity - BMI 51.7 - SCDs ordered - Encourage early ambulation PVCs/Palpitations Intermittent SVT Syncopal Episodes - No syncopal episodes since 06/2022 - Implantable loop recorder placed 08/2022 - Follows with [facility], plan to fu postpartm - Maintain Mag level >2.0 - Continue home mag oxide - Asymptomatic on admission Asthma - No history of hospitalizations/intubations - Albuterol PRN Hypothyroid - 04/03 TSH 2.54 - Continue home synthroid 50 mcg daily Antiphospholipid Antibody Syndrome Recurrent Loss - Diagnosis based on SABx4 and positive Lupus Anticoagulant - On Lovenox 40mg prophylaxis and bASA - Last dose of lovenox on 05/05 - Plan: continue meds for 6 weeks PP Migraines - Asymptomatic on admission - Follows with [facility], treated with nerve blockade this - Intermittent LONG with labetalol - Continue home medications HOSEA - Not using CPAP Anxiety - Related to loss - Mood appropriate - No medications Discussed with Dr Burleson, who agrees with plan. Letitia Reyes MD 05/07/2023, 8:40 PM documented in this [facility]08-16-2023 Hospital Discharge instructions* Discharge Instructions* Megan Powell MD - 04/25/2023 12:54 PM EDT Follow up appointment with your doctor/poiser - Keep next scheduled appointment Activity - Normal Activity Call your doctor/poiser if you have: - leaking fluid - vaginal bleeding - regular contractions: More than 6 contractions in one hour - decreased movement - worsening abdominal (belly) pain - headache, blurry vision, increased swelling, upper abdominal pain If you are going home with contractions that are uncomfortable/painful- we recommend these coping strategies: rhythmic breathing, hydrotherapy, imagery or visualization, gentle massage, walking and changing your position. Treatment Verification: Ambika Brown was assessed on Labor and Delivery for a related visit on 04/25/23 . Megan Powell MD [facility] documented in this [facility]08-02-2023 Miscellaneous Notes* Telephone Encounter - Zulma Mayers DDS - 04/11/2023 8:48 AM EDT Summary: Telephone Call with Patient Spoke to patient about her thoughts on moving her RCT obturation appointment to after she delivers her baby. Patient states that she is doing much better and she never feels anything on the tooth unless she grinds her teeth very hard. Due to the fact that we would be obturating the tooth, would need additional radiographs, and additional local anesthetic, we would rather not expose the patient to additional radiation, medicaments,and stress while in a high risk . Patient is no longer an urgent pain patient, she is stable. Pulpectomy is covered by glass ionomer and out of occlusion. Patient would like to be scheduled sometime in May. She states that she will be having her baby towards the end of April. She was relieved to know that she did not have to come in today. We made the above decision based on risk/benefit with Dr. Fields and the patient. The patient agreed to all of the above. Told the patient to call if any changes occur. Zulma Mayers DDS documented in this [facility]23 NoteHNO ID: [id number] Author: Narciso Fields, [facility] Service: ? Author Type: Dentist Type: Progress Notes Filed: 04/08/2023 9:00 PM Note Text: I have seen and evaluated the patient and discussed the case with the resident physician. I agree with the assessment and plan as documented in the resident?s note. Narciso Fields, [facility]07-30-2023 Hospital Discharge instructions* Discharge Instructions* Good Kidd DO - 04/08/2023 12:59 AM EDT Follow up appointment with your doctor/poiser - Keep next scheduled appointment Activity - Normal Activity Call your doctor/poiser if you have: - leaking fluid - vaginal bleeding - regular contractions: More than 6 contractions in one hour - decreased movement - worsening abdominal (belly) pain - headache, blurry vision, increased swelling, upper abdominal pain If you are going home with contractions that are uncomfortable/painful- we recommend these coping strategies: rhythmic breathing, hydrotherapy, imagery or visualization, gentle massage, walking and changing your position. Treatment Verification: Ambika Brown was assessed on Labor and Delivery for a related visit on 04/08/23 . GOOD KIDD DO [facility] documented in this [facility]07-30-2023 History of Present illness Narrative* Good Kidd DO - 04/08/2023 12:55 AM EDT Images from the original note were not included. Department of Obstetrics and Gynecology Labor and Delivery Triage Note CHIEF COMPLAINT: Contractions HISTORY OF PRESENT ILLNESS: The patient is a 33 y.o. 33w3d. OB History 6 Para 0 Term AB 5 Living 0 SAB IAB Ectopic Multiple Live Births Patient presents with a chief complaint as above. Patient states she is feeling contractions every 10-20 minutes. She states they started around 1800 tonight. She states since being in triage they have improved. She denies DFM/VB/LOF. Estimated Due Date: Estimated Date of Delivery: 05/24/23 PAST MEDICAL HISTORY: Past Medical History: Diagnosis Date Asthma GERD (gastroesophageal reflux disease) Infertility, female Joint pain b/l knees, b/l ankles Lupus anticoagulant affecting in second trimester, antepartum (HCC) Migraines Obesity Sinus tachycardia PAST SURGICAL HISTORY: Past Surgical History: Procedure Laterality Date CHOLECYSTECTOMY CVHX IMPLANTABLE LOOP RECORDER SYSTEM 08/23/2022 TONSILLECTOMY (HISTORICAL) WISDOM TOOTH EXTRACTION SOCIAL HISTORY: reports that she has never smoked. She has never used smokeless tobacco. She reports that she does not drink alcohol and does not use drugs. MEDICATIONS: Prior to Admission medications Medication Sig Start Date End Date Taking? Authorizing Provider ascorbic acid (Vitamin C) 500 MG tablet Take 500 mg by mouth 2 times daily. Historical Provider, aspirin 81 MG EC tablet Take 162 mg by mouth daily. Historical Provider, cholecalciferol (Vitamin D3) 200 Unit tablet split tablet Take by mouth. Historical Provider, enoxaparin (Lovenox) 40 MG/0.4ML solution prefilled syringe Inject 40 mg under the skin daily. Historical Provider, famotidine (Pepcid) 10 MG tablet Take 20 mg by mouth Nightly. Historical Provider, labetalol (Normodyne) 200 MG tablet Take 1 tablet (200 mg) by mouth 3 times daily. 12/24/22 06/22/23Shahnaz Hahn DO levothyroxine (Synthroid, Levoxyl) 50 MCG tablet Take 50 mcg by mouth every morning (before breakfast). Historical Provider, magnesium oxide (Mag-Ox) 400 (240 Mg) MG tablet Take 1 tablet (400 mg) by mouth daily. Do not startbefore December 30, 2022. 12/30/22 Shaw Del Angel MD metFORMIN (Glucophage) 500 MG tablet Take 1,500 mg by mouth Once. Historical Provider, OW-Xou-[id number]-3 ( GUMMIES/DHA & FA PO) Take 2 tablets by mouth daily. Historical Provider, sodium chloride 0.9 % nebulizer solution with albuterol (5 MG/ML) 0.5% nebulizer solution 0.9 mg/mLInhale 2 puffs 4 times daily as needed. Historical Provider, CARE: Complicated by: GDMA2 cHTN APLS Obesity Hypothyroidism REVIEW OF SYSTEMS: Pertinent items are noted in HPI. APPEARANCE: Pain: no PHYSICAL EXAM: Vital Signs: VS wnl-reviewed/Respirations normal effort Vitals: 04/07/23 2342 BP: 137/83 Pulse: 102 Resp: 20 Temp: 36.8 C (98.2 F) TempSrc: Oral SpO2: 97% Weight: (!) 330 lb (150 kg) Height: 5' 7.5 (1.715 m) Abdomen: soft, NT, ND, no rebound/guarding Uterus: gravid/non-tender LE Edema: trace Speculum Exam: no pooling of fluid seen, cervix visually closed Heart Rate: Category I Cervix: Closed Contraction Frequency: irregular, every 15 minutes Membranes: Intact RESULTS: NST: N/A BSUS: Vertex presentation GENERAL LABS: No results found for this or any previous visit (from the past 24 hour(s)). TRIAGE COURSE: Low concern for PTL given cervix closed and no contractions noted on toco. Offered patient 2 hour recheck, however patient would like to go home at this time. Discussed return precautions, will discharge home. ESSION: Threatened Pre-Term Labor Pain assessment and plan: None DISCUSSED WITH PNC PROVIDER: Dr. Dao DISPOSITION: Discharge to Home Associated attestation - Madonna Cage MD - 04/08/2023 1:22 AM EDT Hospital Care (Independent): I independently saw and evaluated the patient. I agree with the findings and plan of care as documented in the resident's note. documented in this [facility]07-28-2023 Miscellaneous Notes* Telephone Encounter - Zulma Mayers DDS - 04/06/2023 8:59 AM EDT Summary: Patient Update Called patient to see how she was doing from procedure yesterday. Patient states that she is doing much better in regards to pain. Will see patient next week for RCT completion. Told patient to call in the mean time if she needs anything. Zulma Mayers DDS documented in this [facility]Children[facility]-27-2023 NoteHNO ID: [id number] Author: Zulma Mayers DDS Service: ? Author Type: Resident Type: Progress Notes Filed: 04/05/2023 9:42 PM Note Text: Summary: Limited Emergency Examination Limited Dental Examination and Procedure HISTORY OF PRESENT ILLNESS: This is a 33 year old female who presents with a complaint of My tooth that we worked on last time started hurting after I woke up from a nap and noticed I was clenching my jaw. Onset was yesterday afternoon, patient called and she was scheduled for this morning. Patient is currently in 8/10 pain and hurts worse by biting down. Patient has been taking Tylenol for pain. Characteristics of the pain include throbbing and pain on biting. She also reported that some of the temporary filling came out after her nap to which she might have been grinding. Patient denies any swelling, bad taste in mouth, or other signs of infection. ALLERGIES Allergen Reactions Prochlorperazine Other: See Comments Compazine Diphenhydramine Other: See Comments Current Outpatient Medications Medication Sig labetalol (TRANDATE) 200 mg tablet Take 200 mg by mouth three times daily. levothyroxine (SYNTHROID) 50 mcg tablet Take 50 mcg by mouth every morning. Take On an Empty Stomach enoxaparin (LOVENOX) 30 mg/0.3 mL injection Inject 1.502 mL subcutaneously once daily. ondansetron (ZOFRAN) 8 mg tablet FOR NAUSEA. Take on at onset of nausea or migraine,may repeat dose in 8 hours if needed. (Patient not taking: Reported on 03/28/2023) famotidine (PEPCID) 40 mg tablet Take 40 mg by mouth once daily. aspirin, enteric coated (ASPIRIN, ENTERIC COATED) 81 mg EC tablet Take 81 mg by mouth daily at bedtime. promethazine (PHENERGAN) 25 mg tablet 1/2 to 1 po q8h prn headache or nausea cholecalciferol, vitamin D3, (VITAMIN D3 ORAL) Take by mouth. folic acid 400 mcg tablet Take 400 mcg by mouth daily at bedtime. PNV/FERROUS SULFATE/FOLIC ACID ( MULTIVIT WITH IRON ORAL) Take by mouth daily at bedtime. Ascorbic Acid chew Take 500 mg by mouth daily at bedtime. albuterol HFA (PROVENTIL HFA, VENTOLIN HFA) 90 mcg/actuation inhaler Inhale 2 Puffs as instructed every 4 hours as needed for Wheezing/Shortness of Breath. No current facility-administered medications for this visit. Medications and allergies were reviewed and verified. Patient is currently 33 weeks . OBJECTIVE: General appearance: healthy, pleasant, mild distress. Limited dental exam: Extraoral Findings: Swelling: no Lymphadenopathy: no Asymmetry: no Intraoral Soft Tissues: Tongue: WNL Buccal mucosa: WNL Pharynx: WNL Palate: WNL Floor of mouth: WNL No signs of active intraoral infection, extraoral swelling, no fistula, no mobility. #12: - percussion, - palpation #13: ++++ percussion, - palpation #14: - percussion, - palpation Radiographs taken: No initial radiographs taken due to status of patient. Final radiograph was required, see below. ASSESSMENT: #13: Previously initiated therapy with symptomatic apical periodontitis It was decided to open the access, remove Cavit, and re-instrument the canals and assess internal structure of tooth. TREATMENT: Topical Benzocaine applied 1 carpule of 2% Xylocaine with 1:100K epi administered via maxillary buccal local infiltration, negative aspirations. Removed Cavit with slow speed and irrigated. Used hand files in both buccal and palatal orifices that converge into a single canal. Used .06 orifice tile ditcher in both canals. Minor bleeding present in buccal canal. Hand files from #10 up to size #25 instrumented to working length of 17 mm in both orifices. CHX used to irrigate between all files. Hemostasis achieved, canals were clean. Dried canals with paper points. CaOH placed 5 mm short of working length. Tooth restored with cotton roll in chamber, Tofflemire and Glass Ionomer. Tooth #13 completely removed from occlusion with yonatan on high speed. Checked with occlusal paper in AK and excursive's. Checked contact with floss. Post-operative radiograph taken to assess tooth, bone, and CaOH placement; patient was double draped around the abdomen as well as thyroid collar was placed. Assessment of post operative radiograph shows calcium hydroxide before the tooth dilaceration, no cody-radicular radiolucencies noted. No signs of fracture. No signs of fracture noted on the external surfaces of the tooth or the internal surfaces of the tooth. Patient told to please call over the weekend if any additional issues arise or if the pain does not subside. Let patient know that I am corsets salesperson this weekend and told her how to reach me corsets salesperson. Patient encouraged to take a dose of Tylenol when she got home in order to subside any (more content not included)...[facility]07-27-2023 History of Present illness Narrative* Kaye Mayersianleo Ness, DDS - 04/05/2023 9:14 PM EDT Summary: Limited Emergency Examination Images from the original note were not included. Limited Dental Examination and Procedure HISTORY OF PRESENT ILLNESS: This is a 33 year old female who presents with a complaint of My tooth that we worked on last timestarted hurting after I woke up from a nap and noticed I was clenching my jaw. Onset was yesterday afternoon, patient called and she was scheduled for this morning. Patient is currently in 8/10 pain and hurts worse by biting down. Patient has been taking Tylenol for pain. Characteristics of the pain include throbbing and pain on biting. She also reported that some of the temporary filling came out after her nap to which she might have been grinding. Patient denies any swelling, bad taste in mouth, or other signs of infection. ALLERGIES Allergen Reactions Prochlorperazine Other: See Comments Compazine Diphenhydramine Other: See Comments Current Outpatient Medications Medication Sig labetalol (TRANDATE) 200 mg tablet Take 200 mg by mouth three times daily. levothyroxine (SYNTHROID) 50 mcg tablet Take 50 mcg by mouth every morning. Take On an Empty Stomach enoxaparin (LOVENOX) 30 mg/0.3 mL injection Inject 1.502 mL subcutaneously once daily. ondansetron (ZOFRAN) 8 mg tablet FOR NAUSEA. Take on at onset of nausea or migraine,may repeat dosein 8 hours if needed. (Patient not taking: Reported on 03/28/2023) famotidine (PEPCID) 40 mg tablet Take 40 mg by mouth once daily. aspirin, enteric coated (ASPIRIN, ENTERIC COATED) 81 mg EC tablet Take 81 mg by mouth daily at bedtime. promethazine (PHENERGAN) 25 mg tablet 1/2 to 1 po q8h prn headache or nausea cholecalciferol, vitamin D3, (VITAMIN D3 ORAL) Take by mouth. folic acid 400 mcg tablet Take 400 mcg by mouth daily at bedtime. PNV/FERROUS SULFATE/FOLIC ACID ( MULTIVIT WITH IRON ORAL) Take by mouth daily at bedtime. Ascorbic Acid chew Take 500 mg by mouth daily at bedtime. albuterol HFA (PROVENTIL HFA, VENTOLIN HFA) 90 mcg/actuation inhaler Inhale 2 Puffs as instructed every 4 hours as needed for Wheezing/Shortness of Breath. No current facility-administered medications for this visit. Medications and allergies were reviewed and verified. Patient is currently 33 weeks . OBJECTIVE: General appearance: healthy, pleasant, mild distress. Limited dental exam: Extraoral Findings: Swelling: no Lymphadenopathy: no Asymmetry: no Intraoral Soft Tissues: Tongue: WNL Buccal mucosa: WNL Pharynx: WNL Palate: WNL Floor of mouth: WNL No signs of active intraoral infection, extraoral swelling, no fistula, no mobility. #12: - percussion, - palpation #13: ++++ percussion, - palpation #14: - percussion, - palpation Radiographs taken: No initial radiographs taken due to status of patient. Final radiograph was required, see below. ASSESSMENT: #13: Previously initiated therapy with symptomatic apical periodontitis It was decided to open the access, remove Cavit, and re-instrument the canals and assess internal structure of tooth. TREATMENT: Topical Benzocaine applied 1 carpule of 2% Xylocaine with 1:100K epi administered via maxillary buccal local infiltration, negative aspirations. Removed Cavit with slow speed and irrigated. Used hand files in both buccal and palatal orifices that converge into a single canal. Used .06 orifice tile ditcher in both canals. Minor bleeding present in buccal canal. Hand files from #10 up to size #25 instrumented to working length of 17 mm in both orifices. CHX used to irrigate between all files. Hemostasis achieved, canals were clean. Dried canals with paper points. CaOH placed 5 mm short of working length. Tooth restored with cotton roll in chamber, Tofflemire and Glass Ionomer. Tooth #13 completely removed from occlusion with yonatan on high speed. Checked with occlusal paperin AK and excursive's. Checked contact with floss. Post-operative radiograph taken to assess tooth, bone, and CaOH placement; patient was double draped around the abdomen as well as thyroid collar was placed. Assessment of post operative radiograph shows calcium hydroxide before the tooth dilaceration, no cody-radicular radiolucencies noted. No signs of fracture. No signs of fracture noted on the external surfaces of the tooth or the internal surfaces of the tooth. Patient told to please call over the weekend if any additional issues arise or if the pain does notsubside. Let patient know that I am corsets salesperson this weekend and told her how to reach me corsets salesperson. Patient encouraged to take a dose of Tylenol when she got home in order to subside any residual pain from the procedure. Patient was comfortable throughout the procedure and comfort was periodically checked. PLAN: Assess symptoms at next visit, if patient still has residual symptoms, re-assess for fracture. CBCTmay be needed, but foregone due to status of patient. If symptom-free, obturation of RCT. Will check on patient periodically. Next DINAS visit: Obturation of #13 RCT Zulma Mayers DDS documented in this [facility]Children[facility]23 NoteHNO ID: [id number] Author: Narciso Fields DMD Service: ? Author Type: Dentist Type: Progress Notes Filed: 04/02/2023 9:28 PM Note Text: I have seen and evaluated the patient and discussed the case with the resident physician. I agree with the assessment and plan as documented in the resident?s note. Narciso Fields, [facility]07-19-2023 NoteHNO ID: [id number] Author: Zulma Mayers DDS Service: ? Author Type: Resident Type: Progress Notes Filed: 03/28/2023 6:57 PM Note Text: Summary: Limited Examination with #13 Pulpectomy Limited Dental Examination: HISTORY OF PRESENT ILLNESS: This is a 33 year old female who presents with a complaint of I have 5/10 pain on my upper tooth. Onset was months ago. The pain is exaggerated by eating and hot/cold. The patient has not taken any medications for the pain. Currently 31 weeks . Patient also reports having a monitor placed in her heart to diagnose her. She is taking anticoagulation therapy. OBJECTIVE: General appearance: healthy, alert, cooperative, mild distress Limited dental exam: No external buccal swelling Extraoral Findings: Swelling: no Lymphadenopathy: no Asymmetry: no Intraoral Soft Tissues: Tongue: WNL Buccal mucosa: WNL Pharynx: WNL Palate: WNL Floor of mouth: WNL Radiographs taken: Panoramic No, FMX No, Bitewings Yes, PA # 13 1 BW taken, 1 PA taken, no pano taken due to the fact that the patient is . Patient was double draped during radiographs. ASSESSMENT: #12: + percussion, + exaggerated/non-lingering to cold, - tooth sleuth: Symptomatic Apical Periodontitis with normal pulp #13: + percussion, +++ exaggerated/lingering 8 seconds, - tooth sleuth: Symptomatic Irreversible Pulpitis with Symptomatic Apical Periodontitis #14: + percussion, + exaggerated/lingering 4 seconds, - tooth sleuth: Symptomatic Apical Periodontitis with normal apical tissues No swelling, intraoral or extraoral. No signs of active infection. TREATMENT: Pulpectomy #13 and decay excavation Plan: Verbal and written consent verified and confirmed. Anesthetic: 2x carpules of 2% Lidocaine w/ 1:100,000 Epi via Maxillary Local Infiltration , aspirations negative. Profound anesthesia achieved. Isolation: Rubber dam. Accessed tooth and excavated decay. Located 1 canals. Irrigated. Used apex delivery route driver with hand file to establish final working length. Final WL: 17 mm, determined by apex delivery route driver and confirmed with radiographic examination. Used hand files: 08, 10, 15 to remove pulp to the working length. Canal dried, calcium hydroxide placed 5 mm short of working length. Placed cotton and cavit in the access. Cleaned the cavit and removed rubber dam. Discussed post-op instructions, including risk of endodontic flare-up and post-op sensitivity. Stressed importance of definitive temple. Patient dismissed alert and oriented. I have discussed the risks, benefits, complications, and alternatives with treatment at this time. I have also discussed other options with Ambika Brown. She understands the above issues. Patient explained to take Tylenol if needed and avoid Ibuprofen. Stressed to patient that pulpectomy should get the patient out of pain, but it is possible that the symptoms will not resolve and we will need to get her back in to obturate the RCT ABIMAEL. Patient also told that she should call us if any issues arise and to not hesitate due to the fact that we have an corsets salesperson resident at all times. Patient was comfortable throughout the procedure and rolled on her left side for comfort. Pulse Oximeter kept on patient throughout the entirety of the procedure: patients started 96 spO2 and maintained 97 spO2 throughout the procedure. Various Bps taken throughout procedure: 110/92 mmHg, pulse 98 bpm: before procedure 125/89 mmHg, pulse 90 bpm: after anesthesia 113/82 mmhg, pulse 93 bpm: upon discharge NN [place]: PATIENT NEEDS TO BE SCHEDULED FOR COMPLETION OF RCT ABIMAEL (does not need to be on RCT day). Patient will be induced at 35 weeks of her and we should finish the RCT prior. RCT completion #13 from rotary to obturation. Assisted by: Breanna Supervised by: Dr. Henley, Dr. Abarcatantonio Mayers, [facility]07-19-2023 History of Present illness Narrative* Zulma Mayers, DDS - 03/28/2023 6:07 PM EDTSummary: Limited Examination with #13 Pulpectomy Images from the original note were not included. Limited Dental Examination: HISTORY OF PRESENT ILLNESS: This is a 33 year old female who presents with a complaint of I have 5/10 pain on my upper tooth. Onset was months ago. The pain is exaggerated by eating and hot/cold. The patient has not taken any medications for the pain. Currently 31 weeks . Patient also reports having a monitor placed in her heart to diagnose her. She is taking anticoagulation therapy. OBJECTIVE: General appearance: healthy, alert, cooperative, mild distress Limited dental exam: No external buccal swelling Extraoral Findings: Swelling: no Lymphadenopathy: no Asymmetry: no Intraoral Soft Tissues: Tongue: WNL Buccal mucosa: WNL Pharynx: WNL Palate: WNL Floor of mouth: WNL Radiographs taken: Panoramic No, FMX No, Bitewings Yes, PA # 13 1 BW taken, 1 PA taken, no pano taken due to the fact that the patient is . Patient was double draped during radiographs. ASSESSMENT: #12: + percussion, + exaggerated/non-lingering to cold, - tooth sleuth: Symptomatic Apical Periodontitis with normal pulp #13: + percussion, +++ exaggerated/lingering 8 seconds, - tooth sleuth: Symptomatic Irreversible Pulpitis with Symptomatic Apical Periodontitis #14: + percussion, + exaggerated/lingering 4 seconds, - tooth sleuth: Symptomatic Apical Periodontitis with normal apical tissues No swelling, intraoral or extraoral. No signs of active infection. TREATMENT: Pulpectomy #13 and decay excavation Plan: Verbal and written consent verified and confirmed. Anesthetic: 2x carpules of 2% Lidocaine w/ 1:100,000 Epi via Maxillary Local Infiltration , aspirations negative. Profound anesthesia achieved. Isolation: Rubber dam. Accessed tooth and excavated decay. Located 1 canals. Irrigated. Used apex delivery route driver with hand file to establish final working length. Final WL: 17 mm, determined by apex delivery route driver and confirmed with radiographic examination. Used hand files: 08, 10, 15 to remove pulp to the working length. Canal dried, calcium hydroxide placed 5 mm short of working length. Placed cotton and cavit in the access. Cleaned the cavit and removed rubber dam. Discussed post-op instructions, including risk of endodontic flare-up and post- op sensitivity. Stressed importance of definitive temple. Patient dismissed alert and oriented. I have discussed the risks, benefits, complications, and alternatives with treatment at this time. I have also discussed other options with Ambika Brown. She understands the above issues. Patient explained to take Tylenol if needed and avoid Ibuprofen. Stressed to patient that pulpectomy should get the patient out of pain, but it is possible that the symptoms will not resolve and we will need to get her back in to obturate the RCT ABIMAEL. Patient also told that she should call us if any issues arise and to not hesitate due to the fact that we have an corsets salesperson resident at all times. Patient was comfortable throughout the procedure and rolled on her left side for comfort. Pulse Oximeter kept on patient throughout the entirety of the procedure: patients started 96 spO2 and maintained 97 spO2 throughout the procedure. Various Bps taken throughout procedure: 110/92 mmHg, pulse 98 bpm: before procedure 125/89 mmHg, pulse 90 bpm: after anesthesia 113/82 mmhg, pulse 93 bpm: upon discharge [facility] [place]: PATIENT NEEDS TO BE SCHEDULED FOR COMPLETION OF RCT ABIMAEL (does not need to be on RCT day).Patient will be induced at 35 weeks of her and we should finish the RCT prior. RCT completion #13 from rotary to obturation. Assisted by: Breanna Supervised by: Dr. Donnie Frost DDS [facility] Telephone encounter Note * Telephone Encounter - Renate Salmon - 03/22/2023 9:57 AM EDT 04/05/23 1:50PM [facility]MT [id number] Miscellaneous Notes* Telephone Encounter - Renate Salmon - 03/22/2023 9:57 AM EDT 04/05/23 1:50PM OMT * Telephone Encounter - Zandra Liz DO - 03/20/2023 3:49 PM EDT Please call patient to re-schedule appointment to another time and provider as I have limited time for OMT this month. She is currently scheduled for 03/21 at 9:30a. Thank you. documented in this [facility]07-12-2023 History of Present illness Narrative* Ana Solares MA - 03/21/2023 9:30 AM EDT Visit reason: OMT Additional information: no Medications needing to be refilled: no Patient was able to ambulate safely to the examination room. Provider was not notified of possible fall risk. Identification Printing Machine Setter: not offered PHQ2: negative Suicidal ideation: absent Food insecurity screening: negative Industrial Education Instructor used: no * Zandra Liz DO - 03/21/2023 9:30 AM EDT Images from the original note were not included. [facility] [address] [facility] [address] Dept: [phone] Dept Subjective Ambika Brown is a 33 y.o. year old who presents to the office with the following complaint(s): Chief Complaint Patient presents with OMT OMT H&P: Chronic migraines. Tension in back of neck, shoulders bilaterally and upper back. Second OMT. Has also been going to chiropractor and doing home stretches. Following with M for . No prior imaging or specialist eval. Also uses tylenol only when needed, heat, ice. Treatments tried: as above Osteopathic Red Flags: Negative for: cancer, spinal osteomyelitis, spinal fracture, herniated disc and ankylosing spondylitis, or cauda equina syndrome Review of Systems Musculoskeletal: Positive for neck pain. Neurological: Positive for headaches. Patient Active Problem List Diagnosis Infertility, female Obesity GERD (gastroesophageal reflux disease) Left-sided weakness Mild intermittent asthma without complication Migraine Hemiplegic migraine without status migrainosus, not intractable Chronic migraine without aura Somatic dysfunction of head region Somatic dysfunction of cervical region Somatic dysfunction of thoracic region Somatic dysfunction of both upper extremities Somatic dysfunction of both lower extremities Family History Problem Relation Name Age of Onset Hypertension Mother Diabetes Paternal Grandmother Diabetes Paternal Grandfather Diabetes Maternal Grandfather Diabetes Maternal Grandmother Hypertension Father Social History Tobacco Use Smoking status: Never Smokeless tobacco: Never Substance Use Topics Alcohol use: No Current Outpatient Medications on File Prior to Visit Medication Sig Dispense Refill ascorbic acid (Vitamin C) 500 MG tablet Take 500 mg by mouth 2 times daily. aspirin 81 MG EC tablet Take 162 mg by mouth daily. cholecalciferol (Vitamin D3) 200 Unit tablet split tablet Take by mouth. enoxaparin (Lovenox) 40 MG/0.4ML solution prefilled syringe Inject 40 mg under the skin daily. famotidine (Pepcid) 10 MG tablet Take 20 mg by mouth Nightly. labetalol (Normodyne) 200 MG tablet Take 1 tablet (200 mg) by mouth 3 times daily. 90 tablet 5 levothyroxine (Synthroid, Levoxyl) 50 MCG tablet Take 50 mcg by mouth every morning (before breakfast). magnesium oxide (Mag-Ox) 400 (240 Mg) MG tablet Take 1 tablet (400 mg) by mouth daily. Do not startbefore December 30, 2022. 30 tablet 11 metFORMIN (Glucophage) 500 MG tablet Take 500 mg by mouth Once. XL-Bda-JI-[place]-3 ( GUMMIES/DHA & FA PO) Take 2 tablets by mouth daily. sodium chloride 0.9 % nebulizer solution with albuterol (5 MG/ML) 0.5% nebulizer solution 0.9 mg/mLInhale 2 puffs 4 times daily as needed. No current facility-administered medications on file prior to visit. Allergies Allergen Reactions Prochlorperazine Anxiety Other reaction(s): anxiety, Other, Other: See Comments Other reaction(s): Other: See Comments Compazine Diphenhydramine Palpitations Objective BP 105/67 (BP Location: Left arm, Patient Position: Sitting, BP Cuff Size: Large adult) Pulse 85 Temp (!) 35.8 C (96.5 F) (Temporal) Resp 20 Ht 5' 7.52 (1.715 m) Wt (!) 334 lb 9.6 oz (152 kg) BMI 51.60 kg/m Physical Exam HENT: Head: Normocephalic and atraumatic. Right Ear: External ear normal. Left Ear: External ear normal. Eyes: General: No scleral icterus. Right eye: No discharge. Left eye: No discharge. Conjunctiva/sclera: Conjunctivae normal. Pupils: Pupils are equal, round, and reactive to light. Musculoskeletal: Right shoulder: Normal. Left shoulder: Normal. Cervical back: Normal, normal range of motion and neck supple. No rigidity or tenderness. Thoracic back: Normal. Lumbar back: Normal. Neurological: General: No focal deficit present. Cranial Nerves: Cranial nerves 2-12 are intact. Sensory: Sensation is intact. Motor: No weakness. Psychiatric: Attention and Perception: Attention normal. Mood and Affect: Mood normal. Speech: Speech normal. Behavior: Behavior normal. Motor exam: 5/5 in all extremities Reflexes: not checked Sensation: intact Osteopathic Exam: Region All Texture Asymmetry Restriction Tenderness Laterality Comments Head [] [x] [] [] [x] [x]R [x]L Cervical [] [x] [] [] [x] [x]R []L Thoracic [] [x] [] [] [x] [x]R []L Assessment/Plan 1. Chronic migraine without aura without status migrainosus, not intractable 2. Somatic dysfunction of head region 3. Somatic dysfunction of cervical region 4. Somatic dysfunction of thoracic region Chronic, stable OMT completed today in head, cervical and thoracic region as noted. Advised continued supportive care with tylenol, heat/ice, home exercises. Follow up in two weeks for repeat OMT. Region Technique Soft Tissue Myofascial release HVLA Muscle Energy FPR/BLT/ Still's Functional Visceral/ Lymphatic Head [x] [x] [] [x] [] [] [] Cervical [x] [x] [] [x] [] [] [] Thoracic [x] [x] [] [] [] [] [] Patient tolerated OMT with good corrections noted. Post-procedure counseling: [x] Heat 20 min TID, [x] Stretching, [x] Postural retraining, [x] Adequate hydration to prevent treatment reaction [] Follow up with PCP to review treatment plan (3rd consecutive OMT visit) Home Follow up after Osteopathic Manipulative Treatments: - You may be sore on the day following OMT. This is normal. - Take Tylenol and use Ice or heat over treated area. - Continue with self massage using a with a firm rubber ball or frozen tennisball to help alleviatemuscle spasm. Try to incorporate this daily. - Continue with light stretching as discussed in the office today. - Be sure to get some additional rest the next few days. - Apply moist heat to the area: 20 min on and 20 min off. - Drink plenty of water (6-8 glasses daily) Follow-up: Follow up in about 2 weeks (around 04/04/2023) for OMT. Zandra Liz DO 03/22/23 8:10 PM * Vilma Razo DO - 03/21/2023 9:30 AM EDT Teaching Physician Note: Indirect Supervision - Modifier GE During or immediately after this visit, I discussed this case with the treating resident. The resident's note reflects the information we discussed, and I agree with the resident's assessment and treatment plan. Vitals: 03/21/23 0935 BP: 105/67 Pulse: 85 Resp: 20 Temp: (!) 35.8 C (96.5 F) Please see resident s note for further details. This service has been performed in part by a resident under the direction of a teaching physician (GE Modifier) iVlma Razo DO documented in this [facility]07-12-2023 History of Present illness Narrative* Ana Solares MA - 03/21/2023 9:30 AM EDT Visit reason: OMT Additional information: no Medications needing to be refilled: no Patient was able to ambulate safely to the examination room. Provider was not notified of possible fall risk. Identification Printing Machine Setter: not offered PHQ2: negative Suicidal ideation: absent Food insecurity screening: negative Industrial Education Instructor used: no * Zandra Liz, - 03/21/2023 9:30 AM EDT Images from the original note were not included. [facility] [address] [facility] [address] Dept: [phone] Dept Subjective Ambika Brown is a 33 y.o. year old who presents to the office with the following complaint(s): Chief Complaint Patient presents with OMT OMT H&P: Chronic migraines. Tension in back of neck, shoulders bilaterally and upper back. Second OMT. Has also been going to chiropractor and doing home stretches. Following with [facility] for . No prior imaging or specialist eval. Also uses tylenol only when needed, heat, ice. Treatments tried: as above Osteopathic Red Flags: Negative for: cancer, spinal osteomyelitis, spinal fracture, herniated disc and ankylosing spondylitis, or cauda equina syndrome Review of Systems Musculoskeletal: Positive for neck pain. Neurological: Positive for headaches. Patient Active Problem List Diagnosis Infertility, female Obesity GERD (gastroesophageal reflux disease) Left-sided weakness Mild intermittent asthma without complication Migraine Hemiplegic migraine without status migrainosus, not intractable Chronic migraine without aura Somatic dysfunction of head region Somatic dysfunction of cervical region Somatic dysfunction of thoracic region Somatic dysfunction of both upper extremities Somatic dysfunction of both lower extremities Family History Problem Relation Name Age of Onset Hypertension Mother Diabetes Paternal Grandmother Diabetes Paternal Grandfather Diabetes Maternal Grandfather Diabetes Maternal Grandmother Hypertension Father Social History Tobacco Use Smoking status: Never Smokeless tobacco: Never Substance Use Topics Alcohol use: No Current Outpatient Medications on File Prior to Visit Medication Sig Dispense Refill ascorbic acid (Vitamin C) 500 MG tablet Take 500 mg by mouth 2 times daily. aspirin 81 MG EC tablet Take 162 mg by mouth daily. cholecalciferol (Vitamin D3) 200 Unit tablet split tablet Take by mouth. enoxaparin (Lovenox) 40 MG/0.4ML solution prefilled syringe Inject 40 mg under the skin daily. famotidine (Pepcid) 10 MG tablet Take 20 mg by mouth Nightly. labetalol (Normodyne) 200 MG tablet Take 1 tablet (200 mg) by mouth 3 times daily. 90 tablet 5 levothyroxine (Synthroid, Levoxyl) 50 MCG tablet Take 50 mcg by mouth every morning (before breakfast). magnesium oxide (Mag-Ox) 400 (240 Mg) MG tablet Take 1 tablet (400 mg) by mouth daily. Do not startbefore December 30, 2022. 30 tablet 11 metFORMIN (Glucophage) 500 MG tablet Take 500 mg by mouth Once. ZC-Jkt-AH-[place]-3 ( GUMMIES/DHA & FA PO) Take 2 tablets by mouth daily. sodium chloride 0.9 % nebulizer solution with albuterol (5 MG/ML) 0.5% nebulizer solution 0.9 mg/mLInhale 2 puffs 4 times daily as needed. No current facility-administered medications on file prior to visit. Allergies Allergen Reactions Prochlorperazine Anxiety Other reaction(s): anxiety, Other, Other: See Comments Other reaction(s): Other: See Comments Compazine Diphenhydramine Palpitations Objective BP 105/67 (BP Location: Left arm, Patient Position: Sitting, BP Cuff Size: Large adult) Pulse 85 Temp (!) 35.8 C (96.5 F) (Temporal) Resp 20 Ht 5' 7.52 (1.715 m) Wt (!) 334 lb 9.6 oz (152 kg) BMI 51.60 kg/m Physical Exam HENT: Head: Normocephalic and atraumatic. Right Ear: External ear normal. Left Ear: External ear normal. Eyes: General: No scleral icterus. Right eye: No discharge. Left eye: No discharge. Conjunctiva/sclera: Conjunctivae normal. Pupils: Pupils are equal, round, and reactive to light. Musculoskeletal: Right shoulder: Normal. Left shoulder: Normal. Cervical back: Normal, normal range of motion and neck supple. No rigidity or tenderness. Thoracic back: Normal. Lumbar back: Normal. Neurological: General: No focal deficit present. Cranial Nerves: Cranial nerves 2-12 are intact. Sensory: Sensation is intact. Motor: No weakness. Psychiatric: Attention and Perception: Attention normal. Mood and Affect: Mood normal. Speech: Speech normal. Behavior: Behavior normal. Motor exam: 5/5 in all extremities Reflexes: not checked Sensation: intact Osteopathic Exam: Region All Texture Asymmetry Restriction Tenderness Laterality Comments Head [] [x] [] [] [x] [x]R [x]L Cervical [] [x] [] [] [x] [x]R []L Thoracic [] [x] [] [] [x] [x]R []L Assessment/Plan 1. Chronic migraine without aura without status migrainosus, not intractable 2. Somatic dysfunction of head region 3. Somatic dysfunction of cervical region 4. Somatic dysfunction of thoracic region Chronic, stable OMT completed today in head, cervical and thoracic region as noted. Advised continued supportive care with tylenol, heat/ice, home exercises. Follow up in two weeks for repeat OMT. Region Technique Soft Tissue Myofascial release HVLA Muscle Energy FPR/BLT/ Still's Functional Visceral/ Lymphatic Head [x] [x] [] [x] [] [] [] Cervical [x] [x] [] [x] [] [] [] Thoracic [x] [x] [] [] [] [] [] Patient tolerated OMT with good corrections noted. Post-procedure counseling: [x] Heat 20 min TID, [x] Stretching, [x] Postural retraining, [x] Adequate hydration to prevent treatment reaction [] Follow up with PCP to review treatment plan (3rd consecutive OMT visit) Home Follow up after Osteopathic Manipulative Treatments: - You may be sore on the day following OMT. This is normal. - Take Tylenol and use Ice or heat over treated area. - Continue with self massage using a with a firm rubber ball or frozen tennisball to help alleviatemuscle spasm. Try to incorporate this daily. - Continue with light stretching as discussed in the office today. - Be sure to get some additional rest the next few days. - Apply moist heat to the area: 20 min on and 20 min off. - Drink plenty of water (6-8 glasses daily) Follow-up: Follow up in about 2 weeks (around 04/04/2023) for OMT. Zandra Liz DO 03/22/23 8:10 PM * Vilma Razo DO - 03/21/2023 9:30 AM EDT Teaching Physician Note: Indirect Supervision - Modifier GE During or immediately after this visit, I discussed this case with the treating resident. The resident's note reflects the information we discussed, and I agree with the resident's assessment and treatment plan. Vitals: 03/21/23 0935 BP: 105/67 Pulse: 85 Resp: 20 Temp: (!) 35.8 C (96.5 F) Please see resident s note for further details. This service has been performed in part by a resident under the direction of a teaching physician (GE Modifier) Vilma Razo DO * Vilma Razo DO - 03/21/2023 9:30 AM EDT Teaching Physician Note: Indirect Supervision - Modifier GE During or immediately after this visit, I discussed this case with the treating resident. The resident's note reflects the information we discussed, and I agree with the resident's assessment and treatment plan. Vitals: 03/21/23 0935 BP: 105/67 Pulse: 85 Resp: 20 Temp: (!) 35.8 C (96.5 F) Please see resident s note for further details. This service has been performed in part by a resident under the direction of a teaching physician (GE Modifier) Vilma Razo DO documented in this [facility]07-12-2023 Instructions* Patient Instructions* Zandra Liz DO - 03/21/2023 9:30 AM EDT Home Follow up after Osteopathic Manipulative Treatments: - You may be sore on the day following OMT. This is normal. - Take Tylenol and use ice or heat over treated area. - Continue with self massage using a with a firm rubber ball or frozen tennis ball to help alleviate muscle spasm. Try to incorporate this daily. - Continue with light stretching as discussed in the office today. - Be sure to get some additional rest the next few days. - Apply moist heat to the area: 20 min on and 20 min off. - Drink plenty of water (half your body weight in pounds = number of ounces of water/day) documented in this [facility]07-12-2023 Instructions* Patient Instructions* Zandra Liz DO - 03/21/2023 9:30 AM EDT Home Follow up after Osteopathic Manipulative Treatments: - You may be sore on the day following OMT. This is normal. - Take Tylenol and use ice or heat over treated area. - Continue with self massage using a with a firm rubber ball or frozen tennis ball to help alleviate muscle spasm. Try to incorporate this daily. - Continue with light stretching as discussed in the office today. - Be sure to get some additional rest the next few days. - Apply moist heat to the area: 20 min on and 20 min off. - Drink plenty of water (half your body weight in pounds = number of ounces of water/day) documented in this [facility]07-11-2023 Telephone encounter Note* Telephone Encounter - Zandra Liz DO - 03/20/2023 3:49 PM EDT Please call patient to re-schedule appointment to another time and provider as I have limited time for OMT this month. She is currently scheduled for 03/21 at 9:30a. Thank you. [id number] Miscellaneous Notes* Telephone Encounter - Zandra Liz DO - 03/20/2023 3:49 PM EDT Please call patient to re-schedule appointment to another time and provider as I have limited time for OMT this month. She is currently scheduled for 03/21 at 9:30a. Thank you. documented in this [facility]07-02-2023 Discharge summary Author Richy Dumont [facility] March 11, 2023 12:25am Note Date/Time March 10, 2023 10:00 pm [facility] Medical Records Department [address] [place] [address] Emergency Department Summary 03/10/23 MR#: [id number] Acct: [id number] Name: AMBIKA BROWN Rep #:[id number] : 1990 33 From: Richy Dumont MD PCP: MEGA WEEKS Status:REG ER Location: ED HPI History of Present Illness Chief Complaint: Chest Pain Informant: patient Narrative Narrative: Presents with pain under her left breast that started earlier this afternoon. She had eaten pizza but she states the pain is not in her abdomen its up in the lower chest. She feels just slightly short of breath and taking deep breath does hurt it just a little bit. Not coughing. No hemoptysis. No leg pain or swelling. She is about 29 weeks . She has been several other times but is always had miscarriages. She had 1 ectopic. This is the first time she has carried this far. She has a history of lupus anticoagulant so she is on the low-dose Lovenox along with aspirin daily. She has never actually had a DVT or PE. No trauma. [facility] Medical History Cholecystectomy planned History of asthma History of lupus anticoagulant disorder Implantable loop recorder present Insulin resistance Migraines Pancreatitis SVT (supraventricular tachycardia) Home Medications aspirin 81 mg chewable tablet 162 mg PO DAILY 07/04/21 [History Last Taken Unknown] enoxaparin 40 mg/0.4 mL subcutaneous syringe (Lovenox) 40 mg subcut DAILY 10/21/22 [History Last Taken Unknown] ascorbate calcium (vitamin C) 500 mg tablet 500 mg PO DAILY 12/05/22 [History Last Taken Unknown] cholecalciferol (vitamin D3) 25 mcg (1,000 unit) capsule 25 mcg PO DAILY 12/05/22 [History Last Taken Unknown] levothyroxine 50 mcg tablet (Synthroid) 50 mcg PO DAILY 12/05/22 [History Last Taken Unknown] Allergy/AdvReac Type Severity Reaction Status Date / Time diphenhydramine Allergy Mild Chest Verified 03/10/23 21:32 [From Benadryl] tightness prochlorperazine Allergy Other Verified 03/10/23 21:32 [From Compazine] Family History Mother Cancer Thyroid disorder Father Heart disease Surgical History History of cholecystectomy History of electrophysiologic study (02/13/22) History of tonsillectomy Social History household members: spouse Smoking Status: Never smoker alcohol intake: never substance use type: does not use caffeine: Yes Type: coffee Number of servings: 2 ROS ROS ED ROS Narrative A complete review of systems was performed and is negative except as documented in the history of present illness. Some specific details below. Constitutional: No recent fevers or chills. EYE: No discharge, visual complaints, or pain. ENT: No difficulty swallowing. No swelling. No pain. No reflux symptoms. CV: See history of present illness. Not syncopal or presyncopal. Respiratory: See history of present illness. GI: No abdominal pain. No nausea vomiting diarrhea. No blood in stool. : No frequency dysuria or hematuria. Musculoskeletal: No recent trauma. No pains. No swelling. Skin: No rash. Nondiaphoretic. Neuro: No weakness or numbness. Endocrine: No polyuria or polydipsia. EXAM Physical Exam Narrative Exam Narrative: CONSTITUTIONAL: Patient is nontoxic in appearance. The patient looks comfortable. Work of breathing looks normal. HEENT: No notable trauma. Mucous membranes moist. No sinus tenderness. No indication of pain with swallowing. EYES: No conjunctival injection. No proptosis. NECK:No JVD. No stridor. CARDIOVASCULAR: Mildly tachycardic rate. Her rate will go down to about 88 but occasionally goes up to 115 also. It always looks like sinus. I see no ectopy on the monitor. Regular rhythm. No notable murmur. No JVD. RESPIRATORY: No respiratory distress. Breathing is unlabored. No wheezes. No rhonchi. No rales. She does have a small amount of discomfort with very deep breaths but it does not cause cessation of inspiration. No chest wall tenderness or rash or skin lesions noted. GASTROINTESTINAL: Not distended. Bowel sounds are normal. No tenderness. No guarding. No rebound. No palpable mass. No bruit is heard. It does not appear as though her symptoms are in the upper abdomen but rather the lower anterior chest. GENITOURINARY: No tenderness over the bladder. No CVA tenderness. MUSCULOSKELETAL: Atraumatic. No peripheral edema. No cord. No tenderness along the deep venous system. No asymmetry. No distended veins. NEUROLOGICAL: Patient is alert and appropriate. No focal deficit noted. SKIN: No noted rashes. No diaphoresis. PSYCHIATRIC: Patient is calm. Mood is appropriate. Const Vital Signs: 03/10/23 21:33 03/10/23 21:32 03/10/23 21:54 Temperature 98.6 F Temperature Source Temporal Pulse Rate 108 H Respiratory Rate 24 H Respiratory Effort Normal Blood Pressure 138/94 H Blood Pressure Mean 108 Pulse Ox 96 Oxygen Delivery Method Room Air MDM MDM MDM Narrative Medical decision making narrative: We talked about patient with options. I explained that a D-dimer is not a greattest when someone is . It is likely going to be elevated. We can consider doing a CTA of the chest. There is some risk with this both radiation to her and the baby. But she also has real risks for pulmonary embolus. We agreed that we will do a D-dimer. Once we get the blood work back we will make further decisions. Patient CBC shows mild anemia and mild elevated white count. This is typical for her stage of . Graph patient's electrolytes show no acute abnormalities of significance. Patient's troponin is negative. Patient's D-dimer is negative and almost lower than the measurable level. Patient's lipase is negative. Had a long talk with the patient. She is not truly considered low risk. She does have lupus anticoagulant. But she has never had a blood clot. Currently her heart rate is about 90. Her respiratory rate is about 16 and 17. Her oxygen level is 96 to 98% on room air showing no hypoxia. She now thinks that some of the symptoms are almost like she had with pancreatitis. That is why we added the lipase. She did get symptoms after eating pizza. But her symptoms doseem slightly above the abdomen. Even though she is not low risk we did do a D-dimer. This is almost below the lowest measurable. We discussed risk benefits options including risk to her and risk to her unborn child. We mutually agreed that we will hold off on a CTA at this time. She is on low-dose Lovenox. If she has further symptoms pain trouble breathing syncope or any concerns she should come back. Lab Data Labs: Laboratory Results - last 24 hr 03/10/23 21:50 WBC 14.7 H RBC 4.16 L Hgb 11.0 L Hct 34.5 L MCV 82.9 MCH 26.4 L MCHC 31.9 L RDW Std Deviation 46.1 H RDW Coeff of Remigio 15.3 H Plt Count 206 MPV 12.1 H Immature Gran % (Auto) 0.500 Neut % (Auto) 76.1 H Lymph % (Auto) 16.0 L Piute % (Auto) 6.0 Eos % (Auto) 1.3 Baso % (Auto) 0.1 Absolute Neuts (auto) 11.2 H Absolute Lymphs (auto) 2.36 Nucleated RBC % 0 D-Dimer Quant (PE/DVT) 0.29 Sodium 137 Potassium 3.5 Chloride 108 H Carbon Dioxide 23.0 Anion Gap 6 BUN 11 Creatinine 0.70 Estim Creat Clear Calc 112.20 Est GFR (MDRD) Af Amer 124 Est GFR (MDRD) Non-Af 102 BUN/Creatinine Ratio 15.6 Glucose 115 H Calcium 9.5 Troponin I High Sens 5 Lipase 48 EKG Initial EKG: Comments: My independent interpretation the patient's EKG shows sinus rhythm with a rate at 100. No ectopy. No acute ST elevation or depression. PRinterval, QRS duration and QTc are normal. Discharge Plan Triage Chief Complaint: Chest Pain ED Provider: Richy Dumont Dx/Rx/DC Orders Clinical Impression: Left-sided chest pain Instructions: ED Chest Pain, Uncertain Cause Prescriptions: No Action aspirin 81 mg tablet,chewable 162 mg PO DAILY levothyroxine [Synthroid] 50 mcg tablet 50 mcg PO DAILY ascorbate calcium (vitamin C) 500 mg tablet 500 mg PO DAILY cholecalciferol (vitamin D3) 25 mcg (1,000 unit) capsule 25 mcg PO DAILY enoxaparin [Lovenox] 40 mg/0.4 mL Syringe 40 mg SUBCUT DAILY Primary Care Provider: MEGA WEEKS Referrals: [facility] Doctor,Out of [Non-Staff] - Activity Restrictions/Additional Instructions: Follow-up with your primary and OB physician for Disposition Disposition: Home, Self Care What to do if you have Problems For any increased pain, shortness of breath, bleeding, nausea or vomiting, chestpain, or any unexpected problems, contact your Primary Care Provider. Call [facility] ([phone]) or report to the closest Emergency Room. Call 911 if necessary. 03/11/23 0025 <Electronically signed by Richy Dumont MD> Cosigner Signature (if applicable): CC: MEGA WEEKS ~ Signed [facility] Work Phone: [phone] 397-330206-30-2023 Hospital Discharge instructions* Discharge Instructions* Alyssa Mckeon DO - 03/09/2023 1:01 AM EDT Follow up appointment with your doctor/poiser - Keep next scheduled appointment Activity - Normal Activity Call your doctor/poiser if you have: - leaking fluid - vaginal bleeding - regular contractions: Every 5 minutes or closer for one hour - decreased movement - worsening abdominal (belly) pain - headache, blurry vision, increased swelling, upper abdominal pain If you are going home with contractions that are uncomfortable/painful- we recommend these coping strategies: rhythmic breathing, hydrotherapy, imagery or visualization, gentle massage, walking and changing your position. Treatment Verification: Ambika Brown was assessed on Labor and Delivery for a related visit on 03/09/23 . Alyssa Mckeon DO [facility] documented in this [facility]06-30-2023 History of Present illness Narrative* Alyssa Mckeon DO - 03/09/2023 12:24 AM EDT Department of Obstetrics and Gynecology Labor and Delivery Triage Note CHIEF COMPLAINT: DFM, Abdominal cramping HISTORY OF PRESENT ILLNESS: The patient is a 33 y.o. 29w1d presenting with DFM since yesterday and normally baby is active. Patient also states that she has had some intermittnet cramping that started again today around 4PM andincreased with intensity at 9pm today. Patient denies any increase in discharge or urinary symptoms. OB History 6 Para 0 Term AB 5 Living 0 SAB IAB Ectopic Multiple Live Births Patient presents with a chief complaint as above. Denies VB/LOF/CTX Estimated Due Date: Estimated Date of Delivery: 05/24/23 PAST MEDICAL HISTORY: Past Medical History: Diagnosis Date Asthma GERD (gastroesophageal reflux disease) Infertility, female Joint pain b/l knees, b/l ankles Lupus anticoagulant affecting in second trimester, antepartum (HCC) Migraines Obesity Sinus tachycardia PAST SURGICAL HISTORY: Past Surgical History: Procedure Laterality Date CHOLECYSTECTOMY CVHX IMPLANTABLE LOOP RECORDER SYSTEM 08/23/2022 TONSILLECTOMY (HISTORICAL) WISDOM TOOTH EXTRACTION SOCIAL HISTORY: reports that she has never smoked. She has never used smokeless tobacco. She reports that she does not drink alcohol and does not use drugs. MEDICATIONS: Prior to Admission medications Medication Sig Start Date End Date Taking? Authorizing Provider ascorbic acid (Vitamin C) 500 MG tablet Take 500 mg by mouth 2 times daily. Historical Provider, aspirin 81 MG EC tablet Take 162 mg by mouth daily. Historical Provider, cholecalciferol (Vitamin D3) 200 Unit tablet split tablet Take by mouth. Historical Provider, enoxaparin (Lovenox) 40 MG/0.4ML solution prefilled syringe Inject 40 mg under the skin daily. Historical Provider, famotidine (Pepcid) 10 MG tablet Take 20 mg by mouth Nightly. Historical Provider, labetalol (Normodyne) 200 MG tablet Take 1 tablet (200 mg) by mouth 3 times daily. 12/24/22 06/22/23Shahnaz Hahn DO levothyroxine (Synthroid, Levoxyl) 50 MCG tablet Take 50 mcg by mouth every morning (before breakfast). Historical Provider, magnesium oxide (Mag-Ox) 400 (240 Mg) MG tablet Take 1 tablet (400 mg) by mouth daily. Do not startbefore December 30, 2022. 12/30/22 Shaw Del Angel MD metFORMIN (Glucophage) 500 MG tablet Take 500 mg by mouth Once. Historical Provider, SU-Hmy-BG-[place]-3 ( GUMMIES/DHA & FA PO) Take 2 tablets by mouth daily. Historical Provider, sodium chloride 0.9 % nebulizer solution with albuterol (5 MG/ML) 0.5% nebulizer solution 0.9 mg/mLInhale 2 puffs 4 times daily as needed. Historical Provider, CARE: Complicated by: maternal obesity REVIEW OF SYSTEMS: Pertinent items are noted in HPI. APPEARANCE: Pain: No PHYSICAL EXAM: Vital Signs: VS wnl-reviewed/Respirations normal effort Vitals: 03/09/23 0005 Resp: 18 Temp: 36.8 C (98.2 F) TempSrc: Oral Abdomen: soft, NT, ND, no rebound/guarding Uterus: gravid/non-tender LE Edema: trace Speculum Exam: no pooling of fluid seen, vaginal discharge thick white discharge suspect yeast infection heart rate: Category I Cervix: Visually closed Contraction frequency: none Membranes: Intact RESULTS: NST: Reactive Procedures GENERAL LABS: No results found for this or any previous visit (from the past 24 hour(s)). TRIAGE COURSE: Breech on BSUS. Patient endorsing movement and movement noted on BSUS. Pelvic exam suspicious for yeast infection plan to send patient home with terazole cream. Patient overall feels reassured and will have patient follow up in the office ESSION: Decreased Movement Pain assessment and plan: None DISCUSSED WITH PNC PROVIDER: Dr. Montanez DISPOSITION: Discharge to Home Associated attestation - Genoveva Chun DO - 03/09/2023 1:01 AM EDT Hospital Care (Independent): I independently saw and evaluated the patient. I agree with the findings and plan of care as documented in the resident's note. documented in this [facility]-20-2023 History of Present illness Narrative* Hailey Marlow PA-C - 02/27/2023 1:00 PM EDT Images from the original note were not included. 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 She is currently 27 weeks . Procedure Note: Greater Occipital Nerve Block The risks, benefits and anticipated outcomes of the procedure, the risks and benefits of the alternatives to the procedure, and the roles and tasks of the personnel to be involved, were discussed with the patient, and the patient consents to the procedure and agrees to proceed. Electronic Informed consent signed. UNIVERSAL PROTOCOL / SAFETY CHECKLIST Procedure to be Performed: Bilateral Greater Occipital Nerve Block Sign In: A Moment of CARE was completed. Personnel directly involved with the procedure wore the appropriate PPE (Personal Protective Equipment). No special equipment needed. Patient/Surrogate Stated/Verified: PATIENT VERIFIED(optional for EMERGENT procedures): Patient name, Date of , Relevant allergies and The intended procedure Time Out Communication: Intended patient and procedure match the source documents. Consent documented and matches the intended procedure. No relevant labs, photos, and/or imaging studies were applicable for review. Correct side/site marked and visible. Medications required for procedure verified. No fire risk assessment and interventions applicable. No implant(s) inserted. Sign Out: SIGN OUT (optional for EMERGENT procedures): No specimen collected. All instruments, equipment, possible retained foreign bodies accounted for. Post-procedure follow-up management communicated and Plan of Care Visit completed when applicable. Hailey Marlow PA-C 6 cc 1% lidocaine and no steroid were prepared in two 3cc syringes. 3cc were injected into each of the Greater Occipital Nerves. 0cc were wasted. The occipital nerve(s) was injected 3cm caudal and 1.5 cm lateral to the inion where the main trunkof the occipital nerve penetrates the semispinalis muscle. The needle was placed perpendicular and the needle advanced 1.5 cm. After aspiration to ensure no obstruction or presence of blood, the areawas injected. The needle was repositioned in a fan-like manner and the entire area was injected. The patient was told to use heat if there was discomfort later in the day. Pre injection pain 7/10 Post injection pain 10 Patient tolerated the procedure well. Hailey Marlow PA-C VS: BP 129/98 Pulse 101 LMP 09/27/2020 PAST MEDICAL HISTORY Diagnosis Date Asthma Fibromyalgia Hiatal hernia Insulin resistance Lupus anticoagulant disorder (HCC) Migraines Nonsustained ventricular tachycardia (HCC) Obesity, Class III, BMI >= 40 07/15/2021 Palpitations Paroxysmal supraventricular tachycardia (HCC) Syncope PAST SURGICAL HISTORY Procedure Laterality Date CHOLECYSTECTOMY 2013 D&C, DIAG AND/OR THERAPEUTIC 2018 EP STUDY 02/13/2022 comprehensive EP study; normal study, no accessory pathways; +dual AV azra pathways but no inducible SVT; CCAG Dr. Rock ORAL SURGERY PROCEDURE 2009 wisdom teeth TONSILLECTOMY HX 2005 ALLERGIES Allergen Reactions Prochlorperazine Other: See Comments Compazine Diphenhydramine Other: See Comments Current Medications: labetalol (TRANDATE) 200 mg tablet^Take 200 mg by mouth three times daily.^Disp: ^Rfl: levothyroxine (SYNTHROID) 50 mcg tablet^Take 50 mcg by mouth every morning. Take On an Empty Stomach^Disp: ^Rfl: enoxaparin (LOVENOX) 30 mg/0.3 mL injection^Inject 1.502 mL subcutaneously once daily.^Disp: ^Rfl: ondansetron (ZOFRAN) 8 mg tablet^FOR NAUSEA. Take on at onset of nausea or migraine,may repeat dosein 8 hours if needed.^Disp: 30 tablet^Rfl: 4 famotidine (PEPCID) 40 mg tablet^Take 40 mg by mouth once daily. ^Disp: ^Rfl: aspirin, enteric coated (ASPIRIN, ENTERIC COATED) 81 mg EC tablet^Take 81 mg by mouth daily at bedtime. ^Disp: ^Rfl: promethazine (PHENERGAN) 25 mg tablet^1/2 to 1 po q8h prn headache or nausea^Disp: 45 tablet^Rfl: 11 cholecalciferol, vitamin D3, (VITAMIN D3 ORAL)^Take by mouth.^Disp: ^Rfl: folic acid 400 mcg tablet^Take 400 mcg by mouth daily at bedtime. ^Disp: ^Rfl: PNV/FERROUS SULFATE/FOLIC ACID ( MULTIVIT WITH IRON ORAL)^Take by mouth daily at bedtime. ^Disp: ^Rfl: Ascorbic Acid chew^Take 500 mg by mouth daily at bedtime. ^Disp: ^Rfl: albuterol HFA (PROVENTIL HFA, VENTOLIN HFA) 90 mcg/actuation inhaler^Inhale 2 Puffs as instructed every 4 hours as needed for Wheezing/Shortness of Breath.^Disp: ^Rfl: I have reviewed the Julius Status Assessment responses and discussed these with the patient: yes Hailey Marlow PA-C HEADACHE SCORES: Headache Questions 02/27/2022 06/19/2022 02/26/2023 ER visits since last office visit: 1 2 2 Hospital stays since last office visit 0 0 1 Limited ADLs in the last month: 2 3 2 Days missed from work or school in the last month: 0 1 0 Days headache pain free in the last month: 12 10 15 Days per month with ALL of the following symptoms - decreased productivity, light sensitivity and nausea: 10 6 6 Initial improvement of headache after botox injection at last visit: Much improved - Not applicable, I did not have a botox injection at my last visit PRN medication usage in the last month: 7 4 0 Patient impression of improvement since last visit: No change Minimally improved Much worse HIT-6 02/27/2022 06/19/2022 02/26/2023 HIT-6 - - - HIT-6 64 (Severe impact) 65 (Severe impact) 62 (Severe impact) MARCIA - 2/7 SCORES 02/27/2022 06/19/2022 02/26/2023 MARCIA-2 Score 1 3 0 MARCIA-7 Score - 11 - Migraine Specific QOL - Higher scores indicate better HRQL 02/27/2022 06/19/2022 02/26/2023 Role Function-Restrictive Transformed Score (range: 0-100) 60 57.14 68.57 Role Function-Preventive Transformed Score (range: 0-100) 80 70 90 Emotional Function Transformed Score (range: 0-100) 66.67 60 73.33 PHQ-9 02/27/2022 06/19/2022 02/26/2023 Score 9 4 4 RESEARCH: None at this time Follow-up: NITIN Billing: Bilateral JOSUÉ blocks Hailey Marlow PA-C Headache Section [facility] February 27, 2023 [facility] Instructions* Patient Instructions* Haliey Marlow PA-C - 02/27/2023 9:59 AM EDT You received a greater occipital nerve block today with 1% lidocaine. You may feel sore tomorrow atthe site of the injection. You may use heat or ice for discomfort. This should resolve in 24-36 hours. documented in this [facility] Instructions* Patient Instructions* Giselle Renner APRN.SCHEDULE CHECKER - 02/26/2023 1:56 PM EDT Greater Occipital Nerve Block (GONB) Article in [employer] Journal By: Lev Rojas MD Many patients with chronic headache report that their pain typically arises from the neck or, more specifically, the base of the skull. Often that pain arises on one side or the other and extends forward to involve the top of the head, the anabaptism, the forehead, the eye or some combination thereof. These are termed cervicogenic (ie, born of the neck ) headaches. Residing in those areas of the skull base are the occipital nerves. Irritation/inflammation of those nerves may cause a specific type of neuralgiform pain: occipital neuralgia. More commonly, however, those nerves serve as major on-ramps to the superhighway upon which travel the pain signals that produce migraine and other types of headache. If one can block traffic on these busy on-ramps, then it may be possible to halt the flow of pain signal on the superhighway and thus--at least temporarily--halt head pain. Such is the logic of occipital nerve blocks (ONBs) for suppression of chronic headache. The blocks themselves are relatively simple to perform. Your physician will use a small needle to inject a solution into the area around the nerves; the composition of that solution differs according to physician experience and preference but most often contains a long-acting local anesthetic and a steroid anti-inflammatory drug. Insertion of the needle is not especially painful, but infusion of the solutionmay cause temporary discomfort. Pain relief can occur with startling rapidity, frequently within 15 minutes of the block(s). For those who experience relief, the duration of the therapeutic response varies widely: a day or so up toweeks... even months. When the procedure is performed by an experienced healthcare provider, complications of ONBs are quite rare. Because these are sensory nerves, you may experience some temporary numbness over the regions supplied by the nerves. Because the local anesthetic may diffuse into areas close to the lower brain stem and upper spinal cord, transient (hours at most) difficulty speaking or swallowing have been reported. And, as with all steroid therapy, caution should be taken to minimize the amount of steroid injected over any given period of time. Occipital nerve blocks are not for everyone, but for selected patients they can prove a more effective means of suppressing chronic headache than any oral medication. Frequently asked questions: 1. How long will it take? Typically no more than a minute or two; the procedure usually is performed in a regular examinationroom and does not require any preparation on the patient s part. 2. Can I resume my activities afterwards? Absolutely; you should have no problem driving afterwards and may carry on with your day as you would otherwise. 3. If I gain significant but only very brief relief, should I have the procedure repeated? Unfortunately, your HCP cannot predict with confidence whether a given ONB will be effective or--ifeffective--how long the benefit will last. If your treatment response is dramatically positive but short-lived, it probably makes sense to give it at least one more try. https://americanheadachesociety.org/wp-content/uploads//Cpcftvkyx-Mtvrk-U locks_Jan-2010.pdf documented in this encounterChildren[facility] History of Present illness Narrative* Giselle Renner APRN.SCHEDULE CHECKER - 02/26/2023 1:30 PM EDT Images from the original note were not included. Headache Center - Virtual Visit Infusion Triage This visit was conducted as a virtual visit, with patient's permission, via zoom. It required patient-provider interaction for the medical decision making as documented below. Patient stated name and Patient location: [place], [place] I have communicated my name and active licensure. The patient's identity and physical location wereverified at the time of this visit. Either the patient or their legal telephone sales representative has been informed of the risks and benefits of -- and alternatives to -- treatment through a remote evaluation andconsents to proceed with the evaluation remotely. HPI: Ambika Brown is a 33 year old year old female, with a history of asthma, FM, hiatal hernia, Lupus Anticoagulant disorder, PSVT, obesity, syncope and chronic migraines following up today virtually to discuss infusion therapy. She is currently 6 months . She is planning on . Date of last visit: 09/12/2022 She was doing well with her headaches up until recently. She went to the hospital for elevated BP and headache at the beginning of January. She had neuro- imaging during the admission which was WNL. She is going to OMT for migraines which helps minimally (only 1 time every 2 weeks). She feels a significant amount of tension that is radiating up into her head from her shoulders/neck. Headaches have been worse laying down. She does not endorse as much stress at this time. Has not taken periactin as she was concerned about side effects. Onset of current headache: cycle significantly worse over the last 4 days What have you tried for this headache cycle: OMT, tylenol (does not help), ice/heat New health events/diagnosis since last visit (AK/stroke/DM/HTN/etc): elevated BP Cardiovascular risk factors: elevated BP Headache 1 Location: occipital and temporal (L > R) Quality/Description: pressure and throbbing (shooting) Associated Symptoms: Photophobia: yes Phonophobia: yes Nausea: no Vomiting: no Other symptoms: neck pain (can have hemiplegic symptoms) Worse with activity: yes Migraine headache severity: 8/10 Current preventive treatment: NA Current abortive treatment: NA Triggers: unsure. Days missed from work or school in the last month: 0 days Headache status since the last visit: worse Analgesic Ketorolac (Toradol) Anti-Convulsant Divalproex sodium (Depakote) Gabapentin (Neurontin) Levetiracetam (Keppra) Topiramate (Topamax, Trokendi XL, Qudexy) Zonisamide (Zonegram) Anti-Depressant and Antipsychotic Fluoxetine (Prozac) Antiemetics Ondansetron Prochlorperazine Promethazine Anti-Migraine Dihydroergotamine (DHE-45, Migranal) Blood Pressure Nadolol (Corgard) Botulinum Toxin Onabotulinum Toxin A (Botox) Sleep Aids Melatonin Supplements Magnesium Other Medications Dexamethasone (Decadron) Over the Counter Medications Acetaminophen (Tylenol) Aspirin Ibuprofen (Advil, Motrin) Naproxen sodium (Aleve) PAST MEDICAL HISTORY Diagnosis Date Asthma Fibromyalgia Hiatal hernia Insulin resistance Lupus anticoagulant disorder (HCC) Migraines Nonsustained ventricular tachycardia Obesity, Class III, BMI >= 40 07/15/2021 Palpitations Paroxysmal supraventricular tachycardia (HCC) Syncope PAST SURGICAL HISTORY Procedure Laterality Date CHOLECYSTECTOMY 2013 D&C, DIAG AND/OR THERAPEUTIC 2018 EP STUDY 02/13/2022 comprehensive EP study; normal study, no accessory pathways; +dual AV azra pathways but no inducible SVT; CCAG Dr. Rock ORAL SURGERY PROCEDURE 2009 wisdom teeth TONSILLECTOMY HX 2004 ALLERGIES Allergen Reactions Prochlorperazine Other: See Comments Compazine Diphenhydramine Other: See Comments Current Medications: enoxaparin (LOVENOX) 30 mg/0.3 mL injection Inject 1.502 mL subcutaneously once daily. cyproheptadine (PERIACTIN) 4 mg tablet May take one by mouth every 8 hours as needed. ondansetron (ZOFRAN) 8 mg tablet FOR NAUSEA. Take on at onset of nausea or migraine,may repeat dosein 8 hours if needed. omeprazole (PRILOSEC) 40 mg capsule Take 40 mg by mouth once daily. metoprolol tartrate, short acting, (LOPRESSOR) 50 mg tablet Take 50 mg by mouth twice daily. famotidine (PEPCID) 40 mg tablet Take 40 mg by mouth once daily. metFORMIN ER (GLUCOPHAGE XR) 500 mg 24 hr tablet Take 1,000 mg by mouth twice daily. aspirin, enteric coated (ASPIRIN, ENTERIC COATED) 81 mg EC tablet Take 162 mg by mouth daily at bedtime. promethazine (PHENERGAN) 25 mg tablet 1/2 to 1 po q8h prn headache or nausea cholecalciferol, vitamin D3, (VITAMIN D3 ORAL) Take by mouth. folic acid 400 mcg tablet Take 400 mcg by mouth daily at bedtime. PNV/FERROUS SULFATE/FOLIC ACID ( MULTIVIT WITH IRON ORAL) Take by mouth daily at bedtime. Ascorbic Acid chew Take 500 mg by mouth daily at bedtime. albuterol HFA (PROVENTIL HFA, VENTOLIN HFA) 90 mcg/actuation inhaler Inhale 2 Puffs as instructed every 4 hours as needed for Wheezing/Shortness of Breath. I have reviewed the Health Status Assessment responses and discussed these with the patient: yes Giselle Renner APRN.SCHEDULE CHECKER HEADACHE SCORES: Headache Questions 02/27/2022 06/19/2022 02/26/2023 ER visits since last office visit: 1 2 2 Hospital stays since last office visit 0 0 1 Limited ADLs in the last month: 2 3 2 Days missed from work or school in the last month: 0 1 0 Days headache pain free in the last month: 12 10 15 Days per month with ALL of the following symptoms - decreased productivity, light sensitivity and nausea: 10 6 6 Initial improvement of headache after botox injection at last visit: Much improved - Not applicable, I did not have a botox injection at my last visit PRN medication usage in the last month: 7 4 0 Patient impression of improvement since last visit: No change Minimally improved Much worse HIT-6 02/27/2022 06/19/2022 02/26/2023 HIT-6 - - - HIT-6 64 (Severe impact) 65 (Severe impact) 62 (Severe impact) MARCIA - 2/7 SCORES 02/27/2022 06/19/2022 02/26/2023 MARCIA-2 Score 1 3 0 MARCIA-7 Score - 11 - Migraine Specific QOL - Higher scores indicate better HRQL 02/27/2022 06/19/2022 02/26/2023 Role Function-Restrictive Transformed Score (range: 0-100) 60 57.14 68.57 Role Function-Preventive Transformed Score (range: 0-100) 80 70 90 Emotional Function Transformed Score (range: 0-100) 66.67 60 73.33 PHQ-9 02/27/2022 06/19/2022 02/26/2023 Score 9 4 4 Review of Systems: Review of system : unchanged from the previous visit (sleep patterns, mood, energy, appetite, stress, exercising). Physical Examination: Vital Signs: No vital signs taken due to nature of virtual visit. General: well appearing, in no acute distress, alert Pain Behaviors: no pain behaviors observed Neurological: Mental Status: Alert and oriented to person, place and time. Affect is normal. Speech is clear, coherent, and relevant. 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 Attention span and concentration are excellent. HEENT: Head is normocephalic and features were symmetric. Musculoskeletal: Patient able to sit upright in chair for entirety of visit. IMPRESSION: Status migrainosus (primary encounter diagnosis) Ambika Brown is a 33 year old year old female, with a history of asthma, FM, hiatal hernia, Lupus Anticoagulant disorder, PSVT, obesity, syncope and chronic migraines who presents today with status migrainosus. She is currently 6 months . She has a significant myofascial component to her headaches. She has never had nerve blocks but is willing to try occipital nerve blocks with lidocaine.Neuro-imaging from January was within normal limits per patient. PLAN: - will schedule lidocaine nerve blocks this week while she is on main campus with her sister Level of Service: Virtual Visit 25 minutes Giselle Renner APRN.KEVIN Headache Section [facility] February 26, 2023 documented in this [facility] History of Present illness Narrative* Brando Greene, - 02/19/2023 9:00 AM EDT Images from the original note were not included. Prechart note: (the following data was documented before the visit began) Rooming: omt room Possible agenda: omt Provider notes: Headaches last omt 01/22 Multidisciplinary team needs: Health Maintenance to be addressed today: Health Maintenance Due Topic Lipid Panel Diabetes: Foot Exam Diabetes: Dental Exam Depression Screening COVID-19 Vaccine (2 - Booster for Moderna series) Cervical Cancer Screening Varicella Vaccines (1 of 2 - 2-dose childhood series) Diabetes: Hemoglobin A1C (end precharting)- [facility] OF [address] [facility] [id number] Dept: [phone] Dept Subjective Ambika Brown is a 32 y.o. year old who presents to the office with the following reason for visit: Chief Complaint Patient presents with OMT Patient here for OMT on right shoulder and neck. -had OMT 1 month ago -head, neck for migraines -currently 26 wks -does get some numbness/tingling into arms but has hx of carpel tunnel Review of Systems Patient Active Problem List Diagnosis Infertility, female Obesity GERD (gastroesophageal reflux disease) Left-sided weakness Mild intermittent asthma without complication Migraine Hemiplegic migraine without status migrainosus, not intractable Chronic migraine without aura Somatic dysfunction of head region Somatic dysfunction of cervical region Somatic dysfunction of thoracic region Somatic dysfunction of both upper extremities Somatic dysfunction of both lower extremities Family History Problem Relation Name Age of Onset Hypertension Mother Diabetes Paternal Grandmother Diabetes Paternal Grandfather Diabetes Maternal Grandfather Diabetes Maternal Grandmother Hypertension Father Social History Tobacco Use Smoking status: Never Smokeless tobacco: Never Substance Use Topics Alcohol use: No Current Outpatient Medications on File Prior to Visit Medication Sig Dispense Refill ascorbic acid (Vitamin C) 500 MG tablet Take 500 mg by mouth 2 times daily. aspirin 81 MG EC tablet Take 162 mg by mouth daily. cholecalciferol (Vitamin D3) 200 Unit tablet split tablet Take by mouth. enoxaparin (Lovenox) 40 MG/0.4ML solution prefilled syringe Inject 40 mg under the skin daily. labetalol (Normodyne) 200 MG tablet Take 1 tablet (200 mg) by mouth 3 times daily. 90 tablet 5 levothyroxine (Synthroid, Levoxyl) 50 MCG tablet Take 50 mcg by mouth every morning (before breakfast). magnesium oxide (Mag-Ox) 400 (240 Mg) MG tablet Take 1 tablet (400 mg) by mouth daily. Do not startbefore December 30, 2022. 30 tablet 11 MW-Ido-NX-[place]-3 ( GUMMIES/DHA & FA PO) Take 2 tablets by mouth daily. sodium chloride 0.9 % nebulizer solution with albuterol (5 MG/ML) 0.5% nebulizer solution 0.9 mg/mLInhale 2 puffs 4 times daily as needed. No current facility-administered medications on file prior to visit. Allergies Allergen Reactions Prochlorperazine Anxiety Other reaction(s): anxiety, Other, Other: See Comments Other reaction(s): Other: See Comments Compazine Diphenhydramine Palpitations Objective BP 110/85 (BP Location: Right arm, Patient Position: Sitting, BP Cuff Size: Adult) Pulse 89 Temp 36.6 C (97.8 F) (Temporal) Ht 5' 7.5 (1.715 m) Wt (!) 335 lb (152 kg) BMI 51.69 kg/m Physical Exam Osteopathic Exam: Region All Texture Asymmetry Restriction Tenderness Laterality Comments Head [x] [] [] [] [] [x]R [x]L Cervical [x] [] [] [] [] [x]R [x]L Thoracic [x] [] [] [] [] [x]R [x]L Lumbar [] [] [] [] [] []R []L Sacrum [] [] [] [] [] []R []L Innominate/Pelvis [] [] [] [] [] []R []L Ribcage [] [] [] [] [] []R []L Viscera/ abdomen [] [] [] [] [] []R []L Upper extremity [] [] [] [] [] []R []L Lower extremity [] [] [] [] [] []R []L Assessment/Plan 1. Chronic migraine without aura without status migrainosus, not intractable 2. Somatic dysfunction of head region 3. Somatic dysfunction of cervical region 4. Somatic dysfunction of thoracic region Region Technique Response Soft Tissue Myofascial release HVLA Muscle Energy FPR/BLT/ Still's Functional Visceral/ Lymphatic Other Improved/ Unchanged Head [x] [] [] [] [] [] [] [x] I [] U Cervical [x] [] [] [] [] [] [] [x] I [] U Thoracic [x] [] [] [] [] [] [] [x] I [] U Lumbar [] [] [] [] [] [] [] [] I [] U Sacrum [] [] [] [] [] [] [] [] I [] U Innominate/Pelvis [] [] [] [] [] [] [] [] I [] U Ribcage [] [] [] [] [] [] [] [] I [] U Viscera/ abdomen [] [] [] [] [] [] [] [] I [] U Upper extremity [] [] [] [] [] [] [] [] I [] U Lower extremity [] [] [] [] [] [] [] [] I [] U Patient tolerated OMT with good corrections noted. Post-treatment pain scale improved Post-procedure counseling: [] Heat 20 min TID, [x] Stretching, [x] Postural retraining, [x] Adequate hydration to prevent treatment reaction [] Follow up with PCP to review treatment plan (3rd consecutive OMT visit) Home Follow up after Osteopathic Manipulative Treatments: - You may be sore on the day following OMT. This is normal. - Take Tylenol and use Ice or heat over treated area. - Continue with self massage using a with a firm rubber ball or frozen tennisball to help alleviatemuscle spasm. Try to incorporate this daily. - Continue with light stretching as discussed in the office today. - Be sure to get some additional rest the next few days. - Apply moist heat to the area: 20 min on and 20 min off. - Drink plenty of water (6-8 glasses daily) Follow-up: Follow up in about 1 month (around 03/21/2023) for OMT. Brando Greene DO 02/19/23 9:21 AM * Caridad Gregorio MD - 02/19/2023 9:00 AM EDT I saw and evaluated the patient, participating in the pedersen portions of the service. I reviewed the resident s note. I agree with the resident s findings and plan. Caridad Gregorio MD documented in this [facility]06-12-2023 Instructions* Patient Instructions* Brando Greene DO - 02/19/2023 9:00 AM EDT Thank you for visiting the [facility] today! Please do not hesitate to call with any questions or concerns that you may have about items discussed at today's visit. -Brando Greene DO [facility] of [address] [place] [address] * Attachments The following attachments cannot be sent through Care Everywhere. * Neck Stretches ([place]ican) * Active Range of Motion Exercises, Neck and Shoulders ([place]) documented in this [facility]04-21-2023 NoteDepartment of Obstetrics and Gynecology [facility] Discharge Summary Admission on 12/26/2022 2:47 PM Ambika Brown is a 32 y.o. female at 18w5d who was admitted for a persistent headache. Headache was present for 1 weeks duration. Had been seen in triage on 12/24 for intermittent headaches and elevated Blood pressures with history of known cHTN. Patient's labetalol was increased from 200mg BID to TID during that time. On admission, patient reports the headache is a pressure feeling throughout her head. Bp was elevated to mild range on admission. CMP and CBC were both normal on admission. UPC was recently elevated to 0.4 on 12/24. Neurology and ophthalmology were consulted on arrival. Fundoscopic exam performed which was normal. Patient was given scheduled excedrin, magnesium, and prn flexeril and reglan. MRI performed per neurology and wnl. Neurology then gave IVSM which improved patient's pain. Family medicine was also consulted for OMM given neck and shoulder strain. IVSM was then ordered every 8 hours prn. Patient's headache improved significantly and she was deemed stable for discharge. Given prescription for daily magnesium and prednisone taper. Patient given return precautions and has follow up with [facility] next week. Meds: Current Facility-Administered Medications: Acetaminophen-Caffeine (Excedrin Tension Headache) 2 tablet, 2 tablet, Oral, 3 times per day, Shaw Del Angel MD, 2 tablet at 12/29/22 144 aspirin EC tablet 162 mg, 162 mg, Oral, Nightly, Shaw Del Angel MD, 162 mg at 12/28/222049 cholecalciferol (Vitamin D-3) tablet 200 Units, 200 Units, Oral, Nightly, Shaw Del Angel MD, 200 Units at 12/28/222050 cyclobenzaprine (Flexeril) tablet 10 mg, 10 mg, Oral, TID PRN, Shaw Del Angel MD, 10 mg at 12/28/222050 enoxaparin (Lovenox) syringe 40 mg, 40 mg, SubCUTAneous, Nightly, Shaw Del Angel MD, 40 mg at 12/28/222050 famotidine (Pepcid) tablet 20 mg, 20 mg, Oral, BID, 20 mg at 12/29/22830 OR famotidine (Pepcid) injection 20 mg, 20 mg, IntraVENous, BID, Jhoana Camejo DO labetalol (Normodyne) tablet 200 mg, 200 mg, Oral, TID, Shaw Del Angel MD, 200 mg at 12/29/22 144 levothyroxine (Synthroid, Levoxyl) tablet 50 mcg, 50 mcg, Oral, qAM AC, Shaw Del Angel MD, 50 mcg at 12/29/22 0627 magnesium oxide (Mag-Ox) tablet 400 mg, 400 mg, Oral, Daily, Shaw Del Angel MD, 400 mg at 12/29/22 0839 melatonin tablet 5 mg, 5 mg, Oral, Nightly PRN, Shaw Del Angel MD ondansetron ODT (Zofran-ODT) disintegrating tablet 4 mg, 4 mg, Oral, q8h PRN OR ondansetron (Zofran) injection 4 mg, 4 mg, IntraVENous, q6h PRN, Shaw Del Angel MD 19 chewable tablet, 1 tablet, Oral, Nightly, Shaw Del Angel MD, 1 tablet at 12/28/222050 senna-docusate sodium (Senokot-S) 8.6-50 MG tablet 2 tablet, 2 tablet, Oral, Daily, Shaw Del Angel MD, 2 tablet at 12/29/22 0831 sodium chloride 0.9 % infusion, 5-250 mL/hr, IntraVENous, PRN, Shaw Del Angel MD sodium chloride 0.9% (NS) flush 10 mL, 10 mL, IntraVENous, 2 times per day, Shaw Del Angel MD, 10 mL at 12/29/22 0832 sodium chloride 0.9% (NS) flush 10 mL, 10 mL, IntraVENous, PRN, Shaw Del Angel MD Discharge to: Home Discharge date: 12/29/2022 Discharge Dx: headache in Follow up appointment with your doctor/poiser - Keep next scheduled appointment Activity - Normal Activity Call your doctor/poiser if you have: - leaking fluid - vaginal bleeding - regular contractions: More than 6 contractions in one hour - decreased movement - worsening abdominal (belly) pain - headache, blurry vision, increased swelling, upper abdominal pain Shaw Del Angel MD on 12/29/2022 at 3:42 [facility]04-21-2023 Hospital Discharge instructions* Discharge Instructions* Shaw Del Angel MD - 12/29/2022 2:57 PM EDT Follow up appointment with your doctor/poiser - Keep next scheduled appointment Activity - Normal Activity Call your doctor/poiser if you have: - leaking fluid - vaginal bleeding - regular contractions: More than 6 contractions in one hour - decreased movement - worsening abdominal (belly) pain - headache, blurry vision, increased swelling, upper abdominal pain If you are going home with contractions that are uncomfortable/painful- we recommend these coping strategies: rhythmic breathing, hydrotherapy, imagery or visualization, gentle massage, walking and changing your position. Treatment Verification: Ambika Brown was assessed on Labor and Delivery for a related visit on 12/29/22 . Shaw Del Angel MD [facility] * Attachments The following attachments cannot be sent through Care Everywhere. * Home Headache Remedies ([place]) documented in this [place] [address]-21-2023 NoteInpatient OMT Consultation Note - Follow-Up Treatment Subjective: Patient: Ambika Brown is a 32 y.o. female HPI Patient is admitted for acute LONG, chronic migraines Chief complaint for which patient would benefit from OMT: LONG, migraines Patient reports she follows w/ DC. Last treatment on Sunday. Reports did not have benefit from OMT until several hours after last treatment. Declines cervical HVLA this morning as DC cracked neck on Sunday. Allergies Allergen Reactions Compazine [Prochlorperazine] Anxiety Diphenhydramine Palpitations No current facility-administered medications on file prior to encounter. Current Outpatient Medications on File Prior to Encounter Medication Sig Dispense Refill ascorbic acid (Vitamin C) 500 MG tablet Take 500 mg by mouth 2 times daily. aspirin 81 MG EC tablet Take 162 mg by mouth daily. cholecalciferol (Vitamin D3) 200 Unit tablet split tablet Take by mouth. enoxaparin (Lovenox) 40 MG/0.4ML solution prefilled syringe Inject 40 mg under the skin daily. labetalol (Normodyne) 200 MG tablet Take 1 tablet (200 mg) by mouth 3 times daily. 90 tablet 5 levothyroxine (Synthroid, Levoxyl) 50 MCG tablet Take 50 mcg by mouth every morning (before breakfast). RN-Mto-VB-[place]-3 ( GUMMIES/DHA & FA PO) Take 2 tablets by mouth daily. sodium chloride 0.9 % nebulizer solution with albuterol (5 MG/ML) 0.5% nebulizer solution 0.9 mg/mL Inhale 2 puffs 4 times daily as needed. [DISCONTINUED] labetalol (Normodyne) 100 MG tablet Take 100 mg by mouth in the morning and 100 mg in the evening. [DISCONTINUED] labetalol (Normodyne) 200 MG tablet Take 200 mg by mouth 2 times daily. Patient Active Problem List Diagnosis Infertility, female Obesity GERD (gastroesophageal reflux disease) Left-sided weakness Mild intermittent asthma without complication Migraine Hemiplegic migraine without status migrainosus, not intractable Chronic migraine without aura Somatic dysfunction of head region Somatic dysfunction of cervical region Somatic dysfunction of thoracic region Somatic dysfunction of both upper extremities Somatic dysfunction of both lower extremities Social History Tobacco Use Smoking status: Never Smokeless tobacco: Never Substance Use Topics Alcohol use: No Objective: BP 122/58 Pulse 61 Temp 36.6 ?C (97.8 ?F) (Temporal) Resp 18 Ht 5' 7.5 (1.715 m) Wt (!) 333 lb (151 kg) SpO2 96% BMI 51.39 kg/m? Physical Exam Constitutional: Oriented to person, place, and time. Appears well-developed and well-nourished. No distress. Eyes: EOM are normal. No scleral icterus. Neck: Normal range of motion. Pulmonary/Chest: Effort normal. No respiratory distress Musculoskeletal: Normal range of motion. No edema. Neurological: Alert and oriented to person, place, and time. No cranial nerve deficits. Psychiatric: Normal mood and affect. Speech is normal and behavior is normal. Judgment and thought content normal. Motor exam: normal 5/5 strength in all tested muscle groups, no muscle wasting or atrophy, no fasciculations noted, no involuntary movements, no abnormalities of position, normal resting muscle tone, and no pronator drift Reflexes: reflexes are normal and symmetric Sensation: intact Osteopathic Exam: Region All Texture Asymmetry Restriction Tenderness Laterality Comments Head [x] [] [] [] [] []R []L Cervical [x] [] [] [] [] [x]R [x]L L-trap more tender than R Thoracic [x] [] [] [] [] [x]R [x]L Lumbar [] [] [] [] [] []R []L Sacrum [] [] [] [] [] []R []L Innominate/Pelvis [] [] [] [] [] []R []L Ribcage [] [] [] [] [] []R []L Viscera/ abdomen [] [] [] [] [] []R []L Upper extremity [x] [] [] [] [] [x]R [x]L Lower extremity [] [] [] [] [] []R []L Assessment/Plan Principal Problem: Chronic migraine without aura Active Problems: Somatic dysfunction of head region Somatic dysfunction of cervical region Somatic dysfunction of thoracic region Somatic dysfunction of both upper extremities Somatic dysfunction of both lower extremities Region Technique Response Soft Tissue Myofascial release HVLA Muscle Energy FPR/BLT/ Still's Functional Visceral/ Lymphatic Other Improved/ Unchanged Head [] [] [] [] [] [] [] Suboccipital, PINS [x] I [] U Cervical [x] [x] [] [] [] [] [] [x] I [] U Thoracic [x] [x] [] [] [] [] [] [x] I [] U Lumbar [] [] [] [] [] [] [] [] I [] U Sacrum [] [] [] [] [] [] [] [] I [] U Innominate/Pelvis [] [] [] [] [] [] [] [] I [] U Ribcage [] [] [] [] [] [] [] [] I [] U Viscera/ abdomen [] [] [] [] [] [] [] [] I [] U Upper extremity [] [x] [] [] [] [] [] [x] I [] U Lower extremity [] [] [] [] [] [] [] [] I [] U Patient tolerated OMT with good corrections noted. Post-treatment pain scale improved . Post-procedure counseling: [x] Heat 20 min TID, [x] Stretching, [x] Postural retraining, [x] Adequate hydration to prevent treatment reaction Mei Herron (more content not included)...[facility]04-21-2023 History of Present illness Narrative* Mei Herron, DO - 12/29/2022 9:59 AM EDT Images from the original note were not included. Inpatient OMT Consultation Note - Follow-Up Treatment Subjective: Patient: Ambika Brown is a 32 y.o. female HPI Patient is admitted for acute LONG, chronic migraines Chief complaint for which patient would benefit from OMT: LONG, migraines Patient reports she follows w/ DC. Last treatment on Sunday. Reports did not have benefit from OMTuntil several hours after last treatment. Declines cervical HVLA this morning as DC cracked neck onTuesday. Allergies Allergen Reactions Compazine [Prochlorperazine] Anxiety Diphenhydramine Palpitations No current facility-administered medications on file prior to encounter. Current Outpatient Medications on File Prior to Encounter Medication Sig Dispense Refill ascorbic acid (Vitamin C) 500 MG tablet Take 500 mg by mouth 2 times daily. aspirin 81 MG EC tablet Take 162 mg by mouth daily. cholecalciferol (Vitamin D3) 200 Unit tablet split tablet Take by mouth. enoxaparin (Lovenox) 40 MG/0.4ML solution prefilled syringe Inject 40 mg under the skin daily. labetalol (Normodyne) 200 MG tablet Take 1 tablet (200 mg) by mouth 3 times daily. 90 tablet 5 levothyroxine (Synthroid, Levoxyl) 50 MCG tablet Take 50 mcg by mouth every morning (before breakfast). GL-Ewy-HM-[place]-3 ( GUMMIES/DHA & FA PO) Take 2 tablets by mouth daily. sodium chloride 0.9 % nebulizer solution with albuterol (5 MG/ML) 0.5% nebulizer solution 0.9 mg/mLInhale 2 puffs 4 times daily as needed. [DISCONTINUED] labetalol (Normodyne) 100 MG tablet Take 100 mg by mouth in the morning and 100 mg in the evening. [DISCONTINUED] labetalol (Normodyne) 200 MG tablet Take 200 mg by mouth 2 times daily. Patient Active Problem List Diagnosis Infertility, female Obesity GERD (gastroesophageal reflux disease) Left-sided weakness Mild intermittent asthma without complication Migraine Hemiplegic migraine without status migrainosus, not intractable Chronic migraine without aura Somatic dysfunction of head region Somatic dysfunction of cervical region Somatic dysfunction of thoracic region Somatic dysfunction of both upper extremities Somatic dysfunction of both lower extremities Social History Tobacco Use Smoking status: Never Smokeless tobacco: Never Substance Use Topics Alcohol use: No Objective: BP 122/58 Pulse 61 Temp 36.6 C (97.8 F) (Temporal) Resp 18 Ht 5' 7.5 (1.715 m) Wt (!) 333 lb (151 kg) SpO2 96% BMI 51.39 kg/m Physical Exam Constitutional: Oriented to person, place, and time. Appears well-developed and well-nourished. No distress. Eyes: EOM are normal. No scleral icterus. Neck: Normal range of motion. Pulmonary/Chest: Effort normal. No respiratory distress Musculoskeletal: Normal range of motion. No edema. Neurological: Alert and oriented to person, place, and time. No cranial nerve deficits. Psychiatric: Normal mood and affect. Speech is normal and behavior is normal. Judgment and thought content normal. Motor exam: normal 5/5 strength in all tested muscle groups, no muscle wasting or atrophy, no fasciculations noted, no involuntary movements, no abnormalities of position, normal resting muscle tone,and no pronator drift Reflexes: reflexes are normal and symmetric Sensation: intact Osteopathic Exam: Region All Texture Asymmetry Restriction Tenderness Laterality Comments Head [x] [] [] [] [] []R []L Cervical [x] [] [] [] [] [x]R [x]L L-trap more tender than R Thoracic [x] [] [] [] [] [x]R [x]L Lumbar [] [] [] [] [] []R []L Sacrum [] [] [] [] [] []R []L Innominate/Pelvis [] [] [] [] [] []R []L Ribcage [] [] [] [] [] []R []L Viscera/ abdomen [] [] [] [] [] []R []L Upper extremity [x] [] [] [] [] [x]R [x]L Lower extremity [] [] [] [] [] []R []L Assessment/Plan Principal Problem: Chronic migraine without aura Active Problems: Somatic dysfunction of head region Somatic dysfunction of cervical region Somatic dysfunction of thoracic region Somatic dysfunction of both upper extremities Somatic dysfunction of both lower extremities Region Technique Response Soft Tissue Myofascial release HVLA Muscle Energy FPR/BLT/ Still's Functional Visceral/ Lymphatic Other Improved/ Unchanged Head [] [] [] [] [] [] [] Suboccipital, PINS [x] I [] U Cervical [x] [x] [] [] [] [] [] [x] I [] U Thoracic [x] [x] [] [] [] [] [] [x] I [] U Lumbar [] [] [] [] [] [] [] [] I [] U Sacrum [] [] [] [] [] [] [] [] I [] U Innominate/Pelvis [] [] [] [] [] [] [] [] I [] U Ribcage [] [] [] [] [] [] [] [] I [] U Viscera/ abdomen [] [] [] [] [] [] [] [] I [] U Upper extremity [] [x] [] [] [] [] [] [x] I [] U Lower extremity [] [] [] [] [] [] [] [] I [] U Patient tolerated OMT with good corrections noted. Post-treatment pain scale improved . Post-procedure counseling: [x] Heat 20 min TID, [x] Stretching, [x] Postural retraining, [x] Adequate hydration to prevent treatment reaction Mei Herron DO 12/29/22 9:59 AM * Maggie Bejarano, FORMULA CHECKER - SCHEDULE CHECKER - 12/29/2022 7:24 AM EDT General Neurology Follow-up Date of Service: 12/29/2022 Chief complaint: Headache Subjective: Patient states headache is better, but still has tension band around her head. She currently rates the pain a 4/10. Medications: Scheduled Meds:Acetaminophen-Caffeine, 2 tablet, Oral, 3 times per day aspirin, 162 mg, Oral, Nightly cholecalciferol, 200 Units, Oral, Nightly enoxaparin, 40 mg, SubCUTAneous, Nightly famotidine, 20 mg, Oral, BID Or famotidine, 20 mg, IntraVENous, BID labetalol, 200 mg, Oral, TID levothyroxine, 50 mcg, Oral, qAM AC magnesium oxide, 400 mg, Oral, Daily 19, 1 tablet, Oral, Nightly senna-docusate sodium, 2 tablet, Oral, Daily sodium chloride 0.9%, 10 mL, IntraVENous, 2 times per day Continuous Infusions: PRN Meds:PRN medications: cyclobenzaprine, melatonin, methylPREDNISolone sod suc (PF), ondansetron ODT OR ondansetron, sodium chloride, sodium chloride 0.9% Allergies Allergen Reactions Compazine [Prochlorperazine] Anxiety Diphenhydramine Palpitations Objective: Exam: BP 131/62 (BP Location: Left arm, Patient Position: Sitting) Pulse 60 Temp 36.5 C (97.7 F) (Temporal) Resp 18 Ht 1.715 m (5' 7.5) Wt (!) 151 kg (333 lb) SpO2 93% BMI 51.39 kg/m Constitutional: well-nourished. Head: Size/Trauma: normocephalic Neck: supple Heart: RRR, S1S2 Resp: Normal BS GI: soft, nontender Ext: Normal Neuro: General: awake and alert Cranial nerves: I: smell Not tested II: visual anderson Full to confrontation II: pupils Equal, round, reactive to light III,VII: ptosis None III,IV,: extraocular muscles Full ROM V: mastication Normal V: facial light touch sensation Normal V,VII: corneal reflex Present VII: facial muscle function - upper Normal VII: facial muscle function - lower Normal VIII: hearing Normal IX: soft palate elevation Normal IX,X: gag reflex Present XI: trapezius strength 5/5 XI: sternocleidomastoid strength 5/5 XI: neck flexion strength 5/5 XII: tongue strength Normal Motor exam: normal strength, muscle mass, and tone in all extremities Tone: normal Sensation was normal to light touch Deep tendon reflexes were 2+ bilaterally Plantar responses were flexor bilaterally Cerebellar exam noted no tremors noted Gait: deferred secondary to fall risk Data: LABS: RADIOLOGY: MRI Brain wo contrast 12/27/22 Normal MRI examination of the brain. Neuroimaging and labs personally reviewed Assessment/Plan: 32 yo female with PMH of asthma, GERD, antiphospholipid antibody syndrome (on Lovenox), lupus, SVT s/p loop recorder, HOSEA, hypothyroidism, POTS, and migraine headaches presents with complaint/s of headache. Headache -Concern for chronic tension type LONG vs pre-eclampsia -LONG initially not consistent with patient's typical migraine, but now it's evolving into typical migraine -With no papilledema or positional association, low concern for IIH -MRI brain normal -Can continue Excedrin -Will discontinue IVSM and give a one time dose of Prednisone 40mg -Can send home with a medrol dose pack -Would continue to monitor patient's BP -Will defer pre-eclampsia monitoring to primary -19 weeks -Per OB HTN -On labetalol -Bps have been normotensive -Per primary APLS -On Lovenox -Per primary SVT/POTS -Stable -Loop recorder placed 08/2022 HOSEA -Encourage use of CPAP Hypothyroidism -On Synthroid -Per primary No further neurology workup needed at this time. Neurology service will sign off. Please call with any questions or concerns. Thank you. Patient seen and discussed with Dr. Lin * Shaw Del Angel MD - 12/29/2022 6:03 AM EDT Images from the original note were not included. Maternal Medicine Service Resident Progress Note 12/29/2022 6:03 AM 12/26/2022 Hospital Day: 4 Ambikaiman Brown, 32 y.o. 19w1d Patient has been seen and examined. Patient reports LONG is improved. Migraine symptoms are gone but tension band still present, 12/18 this am. She denies VC, CP, SOB, RUQ pain. She notices improvement with IVSM but states that the pain through the IV is severe when administered. She has been taking flexeril prn which helps with neck pain and sleep. 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 Some of this stress has been relieved and patient notes a difference in symptoms. Positive movement Negative vaginal bleeding Negative LOF Negative Contractions Vitals: 12/27/22200012/28/22 0832 12/28/22 1354 12/28/22 2056 BP: 116/60 (!) 142/76 124/57 131/62 BP Location: Left arm Patient Position: Sitting Sitting Pulse: 72 60 79 60 Resp: 16 18 18 Temp: 36.8 C (98.2 F) 36.6 C (97.8 F) 36.5 C (97.7 F) TempSrc: Oral Temporal Temporal SpO2: 97% 97% 93% Weight: Height: Physical Exam: Gen: NAD, well appearing HEENT: Normocephalic, Atraumatic, EOMI Resp: Non-labored breathing, no respiratory distress Abd: soft, NTND, no rebound, no guarding Ext: No LE edema, no calf tenderness or swelling Medications: Current Facility-Administered Medications Medication Dose Route Frequency Provider Last Rate Last Admin Acetaminophen-Caffeine (Excedrin Tension Headache) 2 tablet 2 tablet Oral 3 times per day Shaw Del Angel MD 2 tablet at 12/28/222121 aspirin EC tablet 162 mg 162 mg Oral Nightly Shaw Del Angel MD 162 mg at 12/28/222049 cholecalciferol (Vitamin D-3) tablet 200 Units 200 Units Oral Nightly Shaw Del Angel MD 200 Unitsat 12/28/222050 cyclobenzaprine (Flexeril) tablet 10 mg 10 mg Oral TID PRN Shaw Del Angel MD 10 mg at 12/28/222050 enoxaparin (Lovenox) syringe 40 mg 40 mg SubCUTAneous Nightly Shaw Del Angel MD 40 mg at famotidine (Pepcid) tablet 20 mg 20 mg Oral BID Jhoana Camejo DO 20 mg at 12/28/222050 Or famotidine (Pepcid) injection 20 mg 20 mg IntraVENous BID Jhoana Camejo DO labetalol (Normodyne) tablet 200 mg 200 mg Oral TID Shaw Del Angel MD 200 mg at 12/28/222050 levothyroxine (Synthroid, Levoxyl) tablet 50 mcg 50 mcg Oral qAM AC Shaw Del Angel MD 50 mcg at 12/28/22 0613 magnesium oxide (Mag-Ox) tablet 400 mg 400 mg Oral Daily Shaw Del Angel MD 400 mg at 12/28/22 0833 methylPREDNISolone sodium succinate (PF) (SOLU-Medrol) injection 125 mg 125 mg IntraVENous q8h PRN MARIA FERNANDA Ponce CNP 125 mg at 12/29/22 0002 ondansetron ODT (Zofran-ODT) disintegrating tablet 4 mg 4 mg Oral q8h PRN Shaw Del Angel MD Or ondansetron (Zofran) injection 4 mg 4 mg IntraVENous q6h PRN Shaw Del Angel MD 19 chewable tablet 1 tablet Oral Nightly Shaw Del Angel MD 1 tablet at 12/28/222050 senna-docusate sodium (Senokot-S) 8.6-50 MG tablet 2 tablet 2 tablet Oral Daily Shaw Del Angel MD2 tablet at 12/27/22 1456 sodium chloride 0.9 % infusion 5-250 mL/hr IntraVENous PRN Shaw Del Angel MD sodium chloride 0.9% (NS) flush 10 mL 10 mL IntraVENous 2 times per day Shaw Del Angel MD 10 mL at 12/28/222053 sodium chloride 0.9% (NS) flush 10 mL 10 mL IntraVENous PRN Shaw Del Angel MD Assessment/Plan: Ambika Brown is a 32 y.o. female 19w1d Acute LONG Chronic Migraines - Continue excedrin and mag-ox scheduled - IVSM ordered q 8 hours prn per neurology - MRI brain normal - S/p ophthalmology consult with normal fundoscopic exam - LONG improved this am, currently 12/18. Reports IVSM has been helping but very painful through IV. Also reports may be related to some stressors at home which are getting better. Offered CLP consult and patient declined at this time. cHTN - Continue labetalol 200mg TID and bASA - BP's normotensive with rare low mild range - Low suspicion that headache is related to preeclampsia APLS - Continue ppx lovenox daily HOSEA - Has not used CPAP at night due to discomfort in Hypothyroidism - Continue synthroid Vit D Deficiency - Continue supplementation Asthma - Asymptomatic IUP @ 19w1d - Dating by 7w0d US - Anatomy US performed but limited, will need repeat in 1-2w which is scheduled outpatient - Monitoring:FHT daily - Diet:General - BMZ deferred Further plan pending d/w attending. Shaw Del Angel MD 12/29/2022, 6:03 AM Associated attestation - Jody Montanez MD - 12/29/2022 2:55 PM EDT Hospital Care (Independent): I independently saw and evaluated the patient. I agree with the findings and plan of care as documented in the resident's note. * Yenny Manuel DTR - 12/28/2022 11:49 AM EDT Nutrition rescreen completed. Chart reviewed. Patient to be monitored and followed by the diet perinatal technician. * Maggie Luevanodean, FORMULA CHECKER - SCHEDULE CHECKER - 12/28/2022 7:36 AM EDT General Neurology Follow-up Date of Service: 12/28/2022 Chief complaint: Headache Subjective: Patient initially had some improvement in her headache last night. However, headache isworsening, and now feels like her typical migraine headache. Medications: Scheduled Meds:Acetaminophen-Caffeine, 2 tablet, Oral, 3 times per day aspirin, 162 mg, Oral, Nightly cholecalciferol, 200 Units, Oral, Nightly enoxaparin, 40 mg, SubCUTAneous, Nightly famotidine, 20 mg, Oral, BID Or famotidine, 20 mg, IntraVENous, BID labetalol, 200 mg, Oral, TID levothyroxine, 50 mcg, Oral, qAM AC magnesium oxide, 400 mg, Oral, Daily 19, 1 tablet, Oral, Nightly senna-docusate sodium, 2 tablet, Oral, Daily sodium chloride 0.9%, 10 mL, IntraVENous, 2 times per day Continuous Infusions: PRN Meds:PRN medications: cyclobenzaprine, ondansetron ODT OR ondansetron, sodium chloride, sodium chloride 0.9% Allergies Allergen Reactions Compazine [Prochlorperazine] Anxiety Diphenhydramine Palpitations Objective: Exam: BP 116/60 Pulse 72 Temp 36.8 C (98.2 F) (Oral) Resp 16 Ht 1.715 m (5' 7.5) Wt (!) 151 kg(333 lb) SpO2 97% BMI 51.39 kg/m Constitutional: well-nourished. Head: Size/Trauma: normocephalic Neck: supple Heart: RRR, S1S2 Resp: Normal BS GI: soft, nontender Ext: Normal Neuro: General: awake and alert Cranial nerves: I: smell Not tested II: visual anderson Full to confrontation II: pupils Equal, round, reactive to light III,VII: ptosis None III,IV,: extraocular muscles Full ROM V: mastication Normal V: facial light touch sensation Normal V,VII: corneal reflex Present VII: facial muscle function - upper Normal VII: facial muscle function - lower Normal VIII: hearing Normal IX: soft palate elevation Normal IX,X: gag reflex Present XI: trapezius strength 5/5 XI: sternocleidomastoid strength 5/5 XI: neck flexion strength 5/5 XII: tongue strength Normal Motor exam: normal strength, muscle mass, and tone in all extremities Tone: normal Sensation was normal to light touch Deep tendon reflexes were 2+ bilaterally Plantar responses were flexor bilaterally Cerebellar exam noted no tremors noted Gait: deferred secondary to fall risk Data: LABS: RADIOLOGY: MRI Brain wo contrast 12/27/22 Normal MRI examination of the brain. Neuroimaging and labs personally reviewed Assessment/Plan: 32 yo female with PMH of asthma, GERD, antiphospholipid antibody syndrome (on Lovenox), lupus, SVT s/p loop recorder, HOSEA, hypothyroidism, POTS, and migraine headaches presents with complaint/s of headache. Headache -Concern for chronic tension type LONG vs pre-eclampsia -LONG initially not consistent with patient's typical migraine, but now it's evolving into typical migraine -With no papilledema or positional association, low concern for IIH -MRI brain normal -Can continue Excedrin -IVSM 125mg given yesterday with some improvement in headache -Will schedule IVSM 125mg q8 PRN -Would continue to monitor patient's BP while receiving IVSM -Will defer pre-eclampsia monitoring to primary -18 weeks -Per OB HTN -On labetalol -Bps have been normotensive -Per primary APLS -On Lovenox -Per primary SVT/POTS -Stable -Loop recorder placed 08/2022 HOSEA -Encourage use of CPAP Hypothyroidism -On Synthroid -Per primary Patient seen and discussed with Dr. Lin Associated attestation - Kenya Lin MD - 12/28/2022 12:27 PM EDT I have seen, examined and evaluated the patient with the resident physician or nurse practitioner under my direct supervision. I have reviewed the resident physician's or nurse practitioner's note and agree with the assessment and plan of care as documented with this addendum. LONG had improved s/p steroids and heat/massage yesterday. This morning, LONG has increased in severity(03/19) and now is more of a frontal throbbing LONG. Still no n/v/p/p phobia. No positional association. Assessment/Plan: 32 yo female with PMH of asthma, GERD, antiphospholipid antibody syndrome (on Lovenox), lupus, SVT s/p loop recorder, HOSEA, hypothyroidism, POTS, and migraine headaches presents with complaint/s of headache. Headache -Concern for chronic tension type LONG vs migraine vs pre-eclampsia -LONG initially not consistent with patient's typical migraine, but now it's evolving into typical migraine -With no papilledema or positional association, low concern for IIH -MRI brain normal -Can continue Excedrin -IVSM 125mg given yesterday with some improvement in headache -Will schedule IVSM 125mg q8 PRN -Would continue to monitor patient's BP while receiving IVSM -Will defer pre-eclampsia monitoring to primary Remainder as below * Shaw Del Angel MD - 12/28/2022 6:02 AM EDT Images from the original note were not included. Maternal Medicine Service Resident Progress Note 12/28/2022 6:03 AM 12/26/2022 Hospital Day: 3 Ambikaiman Brown, 32 y.o. 19w0d Patient has been seen and examined. Patient reports improvement with IVSM and OMM overnight, 01/17. This am, she reports the headache is worse again and now starting to feel like a typical migraine. Currently 03/19. Did not sleep well overnight. Denies N/V, tolerating PO appropriately. Positive movement Negative vaginal bleeding Negative LOF Negative Contractions Vitals: 12/26/22201212/27/22 0856 12/27/22 1404 12/27/222000 BP: 111/52 137/69 121/63 116/60 Pulse: 74 75 80 72 Resp: 15 16 16 Temp: 36.5 C (97.7 F) 36.6 C (97.9 F) 36.8 C (98.2 F) TempSrc: Temporal Temporal Oral SpO2: 95% 97% 99% 97% Weight: Height: Physical Exam: Gen: NAD, well appearing HEENT: Normocephalic, Atraumatic, EOMI Resp: Non-labored breathing, no respiratory distress Abd: soft, NTND, no rebound, no guarding Ext: No LE edema, no calf tenderness or swelling Medications: Current Facility-Administered Medications Medication Dose Route Frequency Provider Last Rate Last Admin Acetaminophen-Caffeine (Excedrin Tension Headache) 2 tablet 2 tablet Oral 3 times per day Shaw Del Angel MD 2 tablet at 12/27/222128 aspirin EC tablet 162 mg 162 mg Oral Nightly Shaw Del Angel MD 162 mg at 12/27/222127 cholecalciferol (Vitamin D-3) tablet 200 Units 200 Units Oral Nightly Shaw Del Angel MD 200 Unitsat 12/27/222129 cyclobenzaprine (Flexeril) tablet 10 mg 10 mg Oral TID PRN Shaw Del Angel MD enoxaparin (Lovenox) syringe 40 mg 40 mg SubCUTAneous Nightly Shaw Del Angel MD 40 mg at famotidine (Pepcid) tablet 20 mg 20 mg Oral BID Jhoana Camejo DO 20 mg at 12/27/222128 Or famotidine (Pepcid) injection 20 mg 20 mg IntraVENous BID Jhoana Camejo DO labetalol (Normodyne) tablet 200 mg 200 mg Oral TID Shaw Del Angel MD 200 mg at 12/27/222128 levothyroxine (Synthroid, Levoxyl) tablet 50 mcg 50 mcg Oral qAM AC Shaw Del Angel MD 50 mcg at 12/27/22 0621 magnesium oxide (Mag-Ox) tablet 400 mg 400 mg Oral Daily Shaw Del Angel MD 400 mg at 12/27/22 0852 ondansetron ODT (Zofran-ODT) disintegrating tablet 4 mg 4 mg Oral q8h PRN Shaw Del Angel MD Or ondansetron (Zofran) injection 4 mg 4 mg IntraVENous q6h PRN Shaw Del Angel MD 19 chewable tablet 1 tablet Oral Nightly Shaw Del Angel MD 1 tablet at 12/27/22 213 senna-docusate sodium (Senokot-S) 8.6-50 MG tablet 2 tablet 2 tablet Oral Daily Shaw Del Angel MD2 tablet at 12/27/22 1456 sodium chloride 0.9 % infusion 5-250 mL/hr IntraVENous PRN Shaw Del Angel MD sodium chloride 0.9% (NS) flush 10 mL 10 mL IntraVENous 2 times per day Shaw Del Angel MD 10 mL at 12/27/22 2131 sodium chloride 0.9% (NS) flush 10 mL 10 mL IntraVENous PRN Shaw Del Angel MD Assessment/Plan: Ambika Brown is a 32 y.o. female 19w0d Acute LONG Chronic Migraines - Continue Excedrin and mag-ox scheduled - S/p IVSMx1 per neurology and OMM per [facility], appreciate the excellent care - LONG improved overnight with interventions but worse again this am - MRI brain normal - S/p ophthalmology consult with normal fundoscopic exam cHTN - Continue labetalol 200mg TID - BP's normotensive - Continue bASA APLS - Continue ppx lovenox daily HOSEA - Has not used CPAP due to discomfort in Hypothyroidism - Continue synthroid Vit D Deficiency - Continue vit D supplementation Asthma - Asymptomatic IUP @ 19w0d - Dating by 7w0d US - Monitoring:FHT daily - Diet:General - BMZ deferred Further plan pending d/w attending. Shaw Del Angel MD 12/28/2022, 6:03 AM Associated attestation - Jody Montanez MD - 12/28/2022 12:32 PM EDT Hospital Care (Independent): I independently saw and evaluated the patient. I agree with the findings and plan of care as documented in the resident's note. * Bisi Wick MD - 12/27/2022 12:08 PM EDT OMT family medicine consult acknowledged. Will plan to see patient later this afternoon. * Shaw Del Angel MD - 12/27/2022 5:45 AM EDT Images from the original note were not included. Maternal Medicine Service Resident Progress Note 12/27/2022 5:45 AM 12/26/2022 Hospital Day: 2 Ambikaiman Brown, 32 y.o. 18w6d Patient has been seen and examined. Reports slept well overnight after flexeril but hasn't noticed a difference in headache this morning. Still 03/19. Denies CP, SOB, VC, N/V. Tolerating PO without difficulty. Positive movement Negative vaginal bleeding Negative LOF Negative Contractions Vitals: 12/26/22 1505 12/26/22 1647 12/26/22 1651 12/26/222012 BP: (!) 158/74 109/58 111/52 Pulse: 90 83 74 Resp: 20 18 15 Temp: 36.7 C (98.1 F) 37.2 C (98.9 F) 36.5 C (97.7 F) TempSrc: Oral Temporal Temporal SpO2: 97% 95% Weight: (!) 151 kg (333 lb) Height: 1.715 m (5' 7.5) Physical Exam: Gen: NAD, well appearing HEENT: Normocephalic, Atraumatic, EOMI Resp: Non-labored breathing, no respiratory distress Abd: soft, NTND, no rebound, no guarding Ext: No LE edema, no calf tenderness or swelling Medications: Current Facility-Administered Medications Medication Dose Route Frequency Provider Last Rate Last Admin Acetaminophen-Caffeine (Excedrin Tension Headache) 2 tablet 2 tablet Oral 3 times per day Shaw Del Angel MD 2 tablet at 12/26/22 1843 aspirin EC tablet 162 mg 162 mg Oral Nightly Shaw Del Angel MD cholecalciferol (Vitamin D-3) tablet 200 Units 200 Units Oral Nightly Shaw Del Angel MD cyclobenzaprine (Flexeril) tablet 10 mg 10 mg Oral TID PRN Shaw Del Angel MD enoxaparin (Lovenox) syringe 40 mg 40 mg SubCUTAneous Nightly Shaw Del Angel MD famotidine (Pepcid) tablet 20 mg 20 mg Oral BID Jhoana Leotarobryanna, DO 20 mg at 12/26/22 2331 Or famotidine (Pepcid) injection 20 mg 20 mg IntraVENous BID Jhoanakelly Baileytarojesseh, DO labetalol (Normodyne) tablet 200 mg 200 mg Oral TID Shaw Del Angel MD 200 mg at 12/26/22 1742 levothyroxine (Synthroid, Levoxyl) tablet 50 mcg 50 mcg Oral qAM AC Shaw Del Angel MD magnesium oxide (Mag-Ox) tablet 400 mg 400 mg Oral Daily Shaw Del Angel MD 400 mg at 12/26/222010 metoclopramide (Reglan) injection 10 mg 10 mg IntraVENous q6h Shaw Del Angel MD ondansetron ODT (Zofran-ODT) disintegrating tablet 4 mg 4 mg Oral q8h PRN Shaw Del Angel MD Or ondansetron (Zofran) injection 4 mg 4 mg IntraVENous q6h PRN Shaw Del Angel MD 19 chewable tablet 1 tablet Oral Nightly Shaw Del Angel MD 1 tablet at 12/26/222010 sodium chloride 0.9 % infusion 5-250 mL/hr IntraVENous PRN Shaw Del Angel MD sodium chloride 0.9% (NS) flush 10 mL 10 mL IntraVENous 2 times per day Shaw Del Angel MD sodium chloride 0.9% (NS) flush 10 mL 10 mL IntraVENous PRN Shaw Del Angel MD Assessment/Plan: Ambika Brown is a 32 y.o. female 18w6d Chronic Migraines Acute LONG - Overnight reports slept well but LONG returned this am - Neurology and ophthalmology consulted, appreciate the recs - Fundoscopic exam performed and wnl - Continue excedrin, reglan discontinued per patient preference cHTN - Currently on labetalol 200mg TID - BP's normotensive - Asymptomatic besides LONG APLS Recurrent Loss - Continue ppx lovenox daily Paroxysmal SVT, POTS - Asymptomatic - Implantable loop recorded placed 08/2022 HO[place] - Has not been using CPAP in due to discomfort Hypothyroidism - Continue home synthroid Vit D Deficiency - Continue vit D supplementation Asthma - Asymptomatic IUP @ 18w6d - Dating by 7w0d US - Monitoring:FHT daily - Diet:General - BMZ deferred Further plan pending d/w attending. Shaw Del Angel MD 12/27/2022, 5:45 AM Associated attestation - Kin Neves MD - 12/27/2022 1:47 PM EDT I independently saw and evaluated the patient. I agree with the findings and plan of care as documented in the resident's note. 32 at 18 6/7 GA with the following: Chronic migraines with acute headaches mostly occipital reports decrease in severity continued exedrin and reglan was discontinued per patient preference. Negative ophthalmology consult Chronic hypertension. Labetalol 200mg TID. BP normotensive APLS recurrent loss Paroxysmal SVT, POTS asymptomatic with implantable loop recorded placed on 08/2022 HOSEA needs to use CPAP Hypothyroidism continued synthroid Asthma asymptomatic 8. Proteinuria without hypertension will continue to follow currently I spent 25 minutes in the visit today on the floor reviewing the chart, discussing the case with the residency staff and nursing Kin Neves MD documented in this [facility]04-20-2023 Note* Care Coordination - Reema Avila RN - 12/28/2022 12:49 PM EDT 32 year old admitted for headache at 18/5 weeks. 6 Para 0. Neurology consult. Chronic hypertension, on Labetalol. Hypothyroidism, on Synthroid. Ophthalmology consult. She is independent and has insurance. [id number]* Care Coordination - Reema Avila RN - 12/28/2022 12:49 PM EDT 32 year old admitted for headache at 18/5 weeks. 6 Para 0. Neurology consult. Chronic hypertension, on Labetalol. Hypothyroidism, on Synthroid. Ophthalmology consult. She is independent and has insurance. [id number] Miscellaneous Notes* Care Coordination - Reema Avila RN - 12/28/2022 12:49 PM EDT 32 year old admitted for headache at 18/5 weeks. 6 Para 0. Neurology consult. Chronic hypertension, on Labetalol. Hypothyroidism, on Synthroid. Ophthalmology consult. She is independent and has insurance. documented in this [facility]04-19-2023 Consult note* Ralph Cox DO - 12/27/2022 5:31 PM EDTAssociated Order(s): IP CONSULT TO FAMILY MEDICINE Images from the original note were not included. [facility] Inpatient OMT Consultation/Procedure Note Subjective: Patient: Ambika Brown is a 32 y.o. female HPI Patient is admitted for Chronic headache Chief complaint for which patient would benefit from OMT: Chronic headache Pain location: head Severity: 5 Duration: 2 weeks Aggravated by: nothing in particular Alleviated by: IV solumedrol helped bring it down from a 7 Previous OMT treatment: No Response: Not Applicable Red Flags present: none Previous imaging: yes MRI's in the past and one today, has not yet resulted Allergies Allergen Reactions Compazine [Prochlorperazine] Anxiety Diphenhydramine Palpitations No current facility-administered medications on file prior to encounter. Current Outpatient Medications on File Prior to Encounter Medication Sig Dispense Refill ascorbic acid (Vitamin C) 500 MG tablet Take 500 mg by mouth 2 times daily. aspirin 81 MG EC tablet Take 162 mg by mouth daily. cholecalciferol (Vitamin D3) 200 Unit tablet split tablet Take by mouth. enoxaparin (Lovenox) 40 MG/0.4ML solution prefilled syringe Inject 40 mg under the skin daily. labetalol (Normodyne) 200 MG tablet Take 1 tablet (200 mg) by mouth 3 times daily. 90 tablet 5 levothyroxine (Synthroid, Levoxyl) 50 MCG tablet Take 50 mcg by mouth every morning (before breakfast). [id number]-[place]-3 ( GUMMIES/DHA & FA PO) Take 2 tablets by mouth daily. sodium chloride 0.9 % nebulizer solution with albuterol (5 MG/ML) 0.5% nebulizer solution 0.9 mg/mLInhale 2 puffs 4 times daily as needed. [DISCONTINUED] labetalol (Normodyne) 100 MG tablet Take 100 mg by mouth in the morning and 100 mg in the evening. [DISCONTINUED] labetalol (Normodyne) 200 MG tablet Take 200 mg by mouth 2 times daily. Patient Active Problem List Diagnosis Infertility, female Obesity GERD (gastroesophageal reflux disease) Left-sided weakness Mild intermittent asthma without complication Migraine Hemiplegic migraine without status migrainosus, not intractable Chronic migraine without aura Social History Tobacco Use Smoking status: Never Smokeless tobacco: Never Substance Use Topics Alcohol use: No Objective: BP 121/63 Pulse 80 Temp 36.6 C (97.9 F) (Temporal) Resp 16 Ht 5' 7.5 (1.715 m) Wt (!) 333 lb (151 kg) SpO2 99% BMI 51.39 kg/m Physical Exam Vitals reviewed. Constitutional: General: She is not in acute distress. Appearance: Normal appearance. She is not ill-appearing, toxic-appearing or diaphoretic. HENT: Head: Normocephalic and atraumatic. Pulmonary: Effort: No respiratory distress. Musculoskeletal: General: Tenderness present. No swelling, deformity or signs of injury. Normal range of motion. Cervical back: Normal range of motion and neck supple. Tenderness present. No rigidity. Right lower leg: No edema. Left lower leg: No edema. Skin: General: Skin is warm and dry. Capillary Refill: Capillary refill takes less than 2 seconds. Neurological: General: No focal deficit present. Mental Status: She is alert and oriented to person, place, and time. Mental status is at baseline. Cranial Nerves: No cranial nerve deficit. Sensory: No sensory deficit. Motor: No weakness. Coordination: Coordination normal. Gait: Gait normal. Deep Tendon Reflexes: Reflexes normal. Psychiatric: Mood and Affect: Mood normal. Behavior: Behavior normal. Thought Content: Thought content normal. Judgment: Judgment normal. Motor exam: normal 5/5 strength in all tested muscle groups, no muscle wasting or atrophy, no fasciculations noted, no involuntary movements, no abnormalities of position, normal resting muscle tone,and no pronator drift Reflexes: reflexes are normal and symmetric Sensation: intact SLRT: negative Osteopathic Exam: Region All Texture Asymmetry Restriction Tenderness Laterality Comments Head [x] [] [] [] [] [x]R [x]L Cervical [x] [] [] [] [] [x]R [x]L Thoracic [x] [] [] [] [] [x]R [x]L Lumbar [] [] [] [] [] []R []L Sacrum [] [] [] [] [] []R []L Innominate/Pelvis [] [] [] [] [] []R []L Ribcage [] [] [] [] [] []R []L Viscera/ abdomen [] [] [] [] [] []R []L Upper extremity [x] [] [] [] [] [x]R [x]L Lower extremity [x] [] [] [] [] [x]R [x]L Assessment/Plan Principal Problem: Chronic migraine without aura Active Problems: Somatic dysfunction of head region Somatic dysfunction of cervical region Somatic dysfunction of thoracic region Somatic dysfunction of both upper extremities Somatic dysfunction of both lower extremities Region Technique Response Soft Tissue Myofascial release HVLA Muscle Energy FPR/BLT/ Still's Functional Visceral/ Lymphatic Other Improved/ Unchanged Head [x] [] [] [] [] [] [] [x] I [] U Cervical [x] [] [] [] [] [] [] [x] I [] U Thoracic [x] [] [] [] [] [] [] [x] I [] U Lumbar [] [] [] [] [] [] [] [] I [] U Sacrum [] [] [] [] [] [] [] [] I [] U Innominate/Pelvis [] [] [] [] [] [] [] [] I [] U Ribcage [] [] [] [] [] [] [] [] I [] U Viscera/ abdomen [] [] [] [] [] [] [] [] I [] U Upper extremity [x] [] [] [] [] [] [] [x] I [] U Lower extremity [x] [] [] [] [] [] [] [x] I [] U Patient tolerated OMT with good corrections noted. Post-treatment pain scale 5. Post-procedure counseling: [x] Heat 20 min TID, [x] Stretching, [] Postural retraining, [x] Adequate hydration to prevent treatment reaction DO Ralph Hodges DO 12/27/22 5:32 PM Associated attestation - Mei Herron DO - 12/28/2022 11:29 AM EDT Attending Supervising Physician's Attestation Statement I performed an interim history and physical examination on the patient and discussed the managementwith the resident physician. I reviewed and agree with the findings and plan as documented in his note. Date of service 12/28/22. Patient reports significant improvement in LONG w/ OMT; however, it has worsened again today. Interested in another treatment tomorrow (Sunday) and will plan for this. Alsointerested in outpatient OMT appointment (any date after school ends 01/15/23) -> scheduled. Padma for the consult. [id number] Consult [facility]* Ralph Cox DO - 12/27/2022 5:31 PM EDTAssociated Order(s): IP CONSULT TO FAMILY MEDICINE Images from the original note were not included. [facility] Inpatient OMT Consultation/Procedure Note Subjective: Patient: Ambika Brown is a 32 y.o. female HPI Patient is admitted for Chronic headache Chief complaint for which patient would benefit from OMT: Chronic headache Pain location: head Severity: 5 Duration: 2 weeks Aggravated by: nothing in particular Alleviated by: IV solumedrol helped bring it down from a 7 Previous OMT treatment: No Response: Not Applicable Red Flags present: none Previous imaging: yes MRI's in the past and one today, has not yet resulted Allergies Allergen Reactions Compazine [Prochlorperazine] Anxiety Diphenhydramine Palpitations No current facility-administered medications on file prior to encounter. Current Outpatient Medications on File Prior to Encounter Medication Sig Dispense Refill ascorbic acid (Vitamin C) 500 MG tablet Take 500 mg by mouth 2 times daily. aspirin 81 MG EC tablet Take 162 mg by mouth daily. cholecalciferol (Vitamin D3) 200 Unit tablet split tablet Take by mouth. enoxaparin (Lovenox) 40 MG/0.4ML solution prefilled syringe Inject 40 mg under the skin daily. labetalol (Normodyne) 200 MG tablet Take 1 tablet (200 mg) by mouth 3 times daily. 90 tablet 5 levothyroxine (Synthroid, Levoxyl) 50 MCG tablet Take 50 mcg by mouth every morning (before breakfast). [id number]-[place]-3 ( GUMMIES/DHA & FA PO) Take 2 tablets by mouth daily. sodium chloride 0.9 % nebulizer solution with albuterol (5 MG/ML) 0.5% nebulizer solution 0.9 mg/mLInhale 2 puffs 4 times daily as needed. [DISCONTINUED] labetalol (Normodyne) 100 MG tablet Take 100 mg by mouth in the morning and 100 mg in the evening. [DISCONTINUED] labetalol (Normodyne) 200 MG tablet Take 200 mg by mouth 2 times daily. Patient Active Problem List Diagnosis Infertility, female Obesity GERD (gastroesophageal reflux disease) Left-sided weakness Mild intermittent asthma without complication Migraine Hemiplegic migraine without status migrainosus, not intractable Chronic migraine without aura Social History Tobacco Use Smoking status: Never Smokeless tobacco: Never Substance Use Topics Alcohol use: No Objective: BP 121/63 Pulse 80 Temp 36.6 C (97.9 F) (Temporal) Resp 16 Ht 5' 7.5 (1.715 m) Wt (!) 333 lb (151 kg) SpO2 99% BMI 51.39 kg/m Physical Exam Vitals reviewed. Constitutional: General: She is not in acute distress. Appearance: Normal appearance. She is not ill-appearing, toxic-appearing or diaphoretic. HENT: Head: Normocephalic and atraumatic. Pulmonary: Effort: No respiratory distress. Musculoskeletal: General: Tenderness present. No swelling, deformity or signs of injury. Normal range of motion. Cervical back: Normal range of motion and neck supple. Tenderness present. No rigidity. Right lower leg: No edema. Left lower leg: No edema. Skin: General: Skin is warm and dry. Capillary Refill: Capillary refill takes less than 2 seconds. Neurological: General: No focal deficit present. Mental Status: She is alert and oriented to person, place, and time. Mental status is at baseline. Cranial Nerves: No cranial nerve deficit. Sensory: No sensory deficit. Motor: No weakness. Coordination: Coordination normal. Gait: Gait normal. Deep Tendon Reflexes: Reflexes normal. Psychiatric: Mood and Affect: Mood normal. Behavior: Behavior normal. Thought Content: Thought content normal. Judgment: Judgment normal. Motor exam: normal 5/5 strength in all tested muscle groups, no muscle wasting or atrophy, no fasciculations noted, no involuntary movements, no abnormalities of position, normal resting muscle tone,and no pronator drift Reflexes: reflexes are normal and symmetric Sensation: intact SLRT: negative Osteopathic Exam: Region All Texture Asymmetry Restriction Tenderness Laterality Comments Head [x] [] [] [] [] [x]R [x]L Cervical [x] [] [] [] [] [x]R [x]L Thoracic [x] [] [] [] [] [x]R [x]L Lumbar [] [] [] [] [] []R []L Sacrum [] [] [] [] [] []R []L Innominate/Pelvis [] [] [] [] [] []R []L Ribcage [] [] [] [] [] []R []L Viscera/ abdomen [] [] [] [] [] []R []L Upper extremity [x] [] [] [] [] [x]R [x]L Lower extremity [x] [] [] [] [] [x]R [x]L Assessment/Plan Principal Problem: Chronic migraine without aura Active Problems: Somatic dysfunction of head region Somatic dysfunction of cervical region Somatic dysfunction of thoracic region Somatic dysfunction of both upper extremities Somatic dysfunction of both lower extremities Region Technique Response Soft Tissue Myofascial release HVLA Muscle Energy FPR/BLT/ Still's Functional Visceral/ Lymphatic Other Improved/ Unchanged Head [x] [] [] [] [] [] [] [x] I [] U Cervical [x] [] [] [] [] [] [] [x] I [] U Thoracic [x] [] [] [] [] [] [] [x] I [] U Lumbar [] [] [] [] [] [] [] [] I [] U Sacrum [] [] [] [] [] [] [] [] I [] U Innominate/Pelvis [] [] [] [] [] [] [] [] I [] U Ribcage [] [] [] [] [] [] [] [] I [] U Viscera/ abdomen [] [] [] [] [] [] [] [] I [] U Upper extremity [x] [] [] [] [] [] [] [x] I [] U Lower extremity [x] [] [] [] [] [] [] [x] I [] U Patient tolerated OMT with good corrections noted. Post-treatment pain scale 5. Post-procedure counseling: [x] Heat 20 min TID, [x] Stretching, [] Postural retraining, [x] Adequate hydration to prevent treatment reaction DO Ralph Hodges DO 12/27/22 5:32 PM Associated attestation - Mei Herron DO - 12/28/2022 11:29 AM EDT Attending Supervising Physician's Attestation Statement I performed an interim history and physical examination on the patient and discussed the managementwith the resident physician. I reviewed and agree with the findings and plan as documented in his note. Date of service 12/28/22. Patient reports significant improvement in LONG w/ OMT; however, it has worsened again today. Interested in another treatment tomorrow (Sunday) and will plan for this. Alsointerested in outpatient OMT appointment (any date after school ends 01/15/23) -> scheduled. Jessicaana for the consult. * Maggie Bejarano, FORMULA CHECKER - SCHEDULE CHECKER - 12/27/2022 8:00 AM EDTAssociated Order(s): IP CONSULT TO NEUROLOGY General Neurology Consult Patient: Ambika Brown Date of : 1990 Acct: [id number] PCP: Mega Weeks MD Date of Admission: 12/26/2022 Date of Service: Pt seen/examined on 12/27/22 Chief Complaint: Headache History Of Present Illness: 32 y.o. female with past medical history significant for asthma, GERD, antiphospholipid antibody syndrome (on Lovenox), lupus, SVT s/p loop recorder, HOSEA, hypothyroidism, POTS, and migraine headaches presents with complaint/s of headache. The patient states that for the last 2 weeks she has been having a headache, described as pressure in the back of her head that wraps around the sides. She denies any photophobia, phonophobia, nausea, or vomiting. At home she tried some Excedrin but it didn't provide any relief. She was seen by ophthalmology who didn't find any evidence of ocular/funduscopic evidence of pre-eclampsia. Patient has a history of migraine headaches but states that this is different than her typical migraine headache. Her typical migraines are described as being a frontal headache that is pulsating. She will have photophobia, phonophobia, tunnel vision, nausea, and vomiting. Patient can have hemiplegic migraines. Patient follows with [facility] migraine clinic. She was getting Botox but stopped after becoming . Her last office visit was on 09/12/22. The plan was to stop Botox until after and was completed. She was started on cyproheptadine 4mg that could be taken at onset of migraine.However, patient hasn't been taking. Since being admitted, patient was given Excedrin, Reglan, magnesium, and flexeril without any significant improvement. Patient is 18 weeks . Past Medical History: Past Medical History: Diagnosis Date Asthma GERD (gastroesophageal reflux disease) Infertility, female Joint pain b/l knees, b/l ankles Lupus anticoagulant affecting in second trimester, antepartum (HCC) Migraines Obesity Sinus tachycardia Past Surgical History: Past Surgical History: Procedure Laterality Date CHOLECYSTECTOMY CVHX IMPLANTABLE LOOP RECORDER SYSTEM 08/23/2022 TONSILLECTOMY (HISTORICAL) WISDOM TOOTH EXTRACTION Home Medications: Prior to Admission medications Medication Sig Start Date End Date Taking? Authorizing Provider ascorbic acid (Vitamin C) 500 MG tablet Take 500 mg by mouth 2 times daily. Historical Provider, aspirin 81 MG EC tablet Take 162 mg by mouth daily. Historical Provider, cholecalciferol (Vitamin D3) 200 Unit tablet split tablet Take by mouth. Historical Provider, enoxaparin (Lovenox) 40 MG/0.4ML solution prefilled syringe Inject 40 mg under the skin daily. Historical Provider, labetalol (Normodyne) 200 MG tablet Take 1 tablet (200 mg) by mouth 3 times daily. 12/24/22 06/22/23Shahnaz Hahn DO levothyroxine (Synthroid, Levoxyl) 50 MCG tablet Take 50 mcg by mouth every morning (before breakfast). Historical Provider, [id number]-UM-[place]-3 ( GUMMIES/DHA & FA PO) Take 2 tablets by mouth daily. Historical ProviderMD sodium chloride 0.9 % nebulizer solution with albuterol (5 MG/ML) 0.5% nebulizer solution 0.9 mg/mLInhale 2 puffs 4 times daily as needed. Historical ProviderMD labetalol (Normodyne) 100 MG tablet Take 100 mg by mouth in the morning and 100 mg in the evening. 12/05/22 12/24/22 Historical ProviderMD labetalol (Normodyne) 200 MG tablet Take 200 mg by mouth 2 times daily. 12/24/22 Historical ProviderMD Current Hospital Medications: Current Facility-Administered Medications: Acetaminophen-Caffeine (Excedrin Tension Headache) 2 tablet, 2 tablet, Oral, 3 times per day, Shaw Del Angel MD, 2 tablet at 12/27/22 0621 aspirin EC tablet 162 mg, 162 mg, Oral, Nightly, Shaw Del Angel MD cholecalciferol (Vitamin D-3) tablet 200 Units, 200 Units, Oral, Nightly, Shaw Del Angel MD cyclobenzaprine (Flexeril) tablet 10 mg, 10 mg, Oral, TID PRN, Shaw Del Angel MD enoxaparin (Lovenox) syringe 40 mg, 40 mg, SubCUTAneous, Nightly, Shaw Del Angel MD famotidine (Pepcid) tablet 20 mg, 20 mg, Oral, BID, 20 mg at 12/26/22 2331 OR famotidine (Pepcid) injection 20 mg, 20 mg, IntraVENous, BID, Jhoana Camejo DO labetalol (Normodyne) tablet 200 mg, 200 mg, Oral, TID, Shaw Del Angel MD, 200 mg at 12/26/22 1742 levothyroxine (Synthroid, Levoxyl) tablet 50 mcg, 50 mcg, Oral, qAM AC, Shaw Del Angel MD, 50 mcgat 12/27/22 0621 magnesium oxide (Mag-Ox) tablet 400 mg, 400 mg, Oral, Daily, Shaw Del Angel MD, 400 mg at 12/26/222010 ondansetron ODT (Zofran-ODT) disintegrating tablet 4 mg, 4 mg, Oral, q8h PRN OR ondansetron (Zofran) injection 4 mg, 4 mg, IntraVENous, q6h PRN, Shaw Del Angel MD 19 chewable tablet, 1 tablet, Oral, Nightly, Shaw Del Angel MD, 1 tablet at 12/26/222010 sodium chloride 0.9 % infusion, 5-250 mL/hr, IntraVENous, PRN, Shaw Del Angel MD sodium chloride 0.9% (NS) flush 10 mL, 10 mL, IntraVENous, 2 times per day, Shaw Del Angel MD sodium chloride 0.9% (NS) flush 10 mL, 10 mL, IntraVENous, PRN, Shaw Del Angel MD Allergies: Compazine [prochlorperazine] and Diphenhydramine Social History: The patient currently lives at home TOBACCO: reports that she has never smoked. She has never used smokeless tobacco. ETOH: reports no history of alcohol use. RECREATIONAL DRUG USE: Social History Substance and Sexual Activity Drug Use No Family History: Family History Problem Relation Name Age of Onset Hypertension Mother Diabetes Paternal Grandmother Diabetes Paternal Grandfather Diabetes Maternal Grandfather Diabetes Maternal Grandmother Hypertension Father REVIEW OF SYSTEMS: CONSTITUTIONAL: negative for fevers and chills, nightsweats EYES: negative for irritation and redness, change in visual acuity HEENT: negative for earaches, ear drainage, and nasal congestion RESPIRATORY: negative for dry cough, wheezing and chest pain CARDIOVASCULAR: negative for palpitations, dyspnea, chest pain GASTROINTESTINAL: negative for nausea, vomiting and change in bowel habits GENITOURINARY: negative for change in frequency, dysuria and hematuria ENDOCRINE: negative for heat or cold intolerance of significant weight change MUSCULOSKELETAL: negative for myalgias, arthralgias and pain NEUROLOGICAL: positive for headache BEHAVIOR/PSYCH: negative for significant mood changes, anxiety, or agitation PHYSICAL EXAM: BP 111/52 Pulse 74 Temp 36.5 C (97.7 F) (Temporal) Resp 15 Ht 1.715 m (5' 7.5) Wt (!) 151 kg (333 lb) SpO2 95% BMI 51.39 kg/m General Appearance: NAD Cardiovascular: +S1, S2 Pulmonary: +BS Abdomen: Soft, nontender, nondistended Skin: Intact Extremities: No lower extremity edema Mental Status Exam: Level of Alertness: awake Orientation: person, place, time Memory: normal Fund of Knowledge: normal Attention/Concentration: normal Language: normal Funduscopic Exam: Attempted, discs not well visualized Cranial Nerves Cranial nerve II Visual acuity: normal Visual anderson: normal Cranial nerve III Pupils: equal, round, reactive to light Cranial nerves III, IV, Extraocular Movements: intact Cranial nerve V Facial sensation: intact Cranial nerve VII Facial strength: intact Cranial nerve VIII Hearing: intact Cranial nerve IX Palate: intact Cranial nerve XI Shoulder shrug: intact Cranial nerve XII Tongue movement: normal Motor: Drift: absent Motor: 5/5 throughout Tone: normal Abnormal Movements: absent Sensory: Temperature Right Upper Extremity: normal Left Upper Extremity: normal Right Lower Extremity: normal Left Lower Extremity: normal Vibration Right Upper Extremity: normal Left Upper Extremity: normal Right Lower Extremity: normal Left Lower Extremity: normal Touch Right Upper Extremity: normal Left Upper Extremity: normal Right Lower Extremity: normal Left Lower Extremity: normal Proprioception Right Upper Extremity: normal Left Upper Extremity: normal Right Lower Extremity: normal Left Lower Extremity: normal Coordination: Finger/Nose Right: normal Left: normal Thlk-Gmdp-Qfsl Right: normal Left: normal Rapid Alternating Movements Right: normal Left: normal Gait: deferred secondary to fall risk Reflexes: Deep Tendon Reflexes: 2+ throughout Plantar response: Right: downgoing Left: downgoing Labs: Recent Labs 12/24/22200012/26/22 1547 WBC 12.3* 14.2* HGB 11.4* 13.2 HCT 34.9* 40.1 PLT 187 220 Recent Labs 12/24/22200012/26/22 1547 NA 135 140 K 3.7 4.2 CL 107 106 CO2 21* 23 BUN 6* 6* CREATININE 0.44* 0.52 CALCIUM 9.2 9.9 Recent Labs 12/24/22200012/26/22 1547 AST 26 42 ALT 23 32 BILITOT 0.3 0.6 ALKPHOS 92 119 Recent Labs 12/26/22 1547 ALKPHOS 119 ALT 32 AST 42 BILITOT 0.6 Radiology: (personally reviewed) MRI Brain/MRA Head/Neck wo contrast 05/19/17 Normal examinations. ASSESSMENT/PLAN: Patient is a 32 yo female with PMH of asthma, GERD, antiphospholipid antibody syndrome (on Lovenox), lupus, SVT s/p loop recorder, HOSEA, hypothyroidism, POTS, and migraine headaches presents with complaint/s of headache. Headache -Concern for chronic headache vs migraine headache -Would obtain MRI brain to ensure there is no intracranial abn -Patient has history of antiphospholipid antibody syndrome, she is currently on Lovenox -Can continue Excedrin -Will try a one time dose of IVSM 125mg -If IVSM is helpful, can schedule dosing -Follow up with outpatient neurology - follows with [facility] -18 weeks -Per OB HTN -On labetalol -Bps have been normotensive -Per primary APLS -On Lovenox -Per primary SVT/POTS -Stable -Loop recorder placed 08/2022 HOSEA -Encourage use of CPAP Hypothyroidism -On Synthroid -Per primary Patient seen and discussed with Dr. Lin Associated attestation - Kenya Lin MD - 12/27/2022 3:34 PM EDT I have seen, examined and evaluated the patient with the resident physician or nurse practitioner under my direct supervision. I have reviewed the resident physician's or nurse practitioner's note and agree with the assessment and plan of care as documented with the following addendum. HPI, social history, family history, and ROS have been reviewed and verified. Briefly, patient is a 32 yo, 18 week , female with history of asthma, GERD, antiphospholipid antibody syndrome (on Lovenox), lupus, SVT s/p loop recorder, HOSEA, hypothyroidism, POTS, and migraine headaches presents with complaint/s of headache. While patient endorses extensive history of migraine, this LONG feels different from typical migraines. Her typical migraine is throbbing frontal LONG with n/v/p/p phobia. For the past two weeks. She hashad constant occipital pressure type of LONG with no migraine associated features. She denies vision change or focal motor/sensory deficits. No positional association. She does have some neck tightnesswhich she occasionally gets with headaches. She follows with [facility] for migraines and was receiving botox prior to . During , she was instructed to use periactin for abortive therapy if needed. She did have an elevated BP of 158/74 on arrival and proteinuria, but BP's have been normotensive since admission. OB is monitoring for pre-eclampsia. Ophthalmology has evaluated with no findings of papilledema. Neurologic exam as below (Examined independently, any additions, pertinent findings, or revisions noted here) Assessment and Plan: 32 yo female with PMH of asthma, GERD, antiphospholipid antibody syndrome (on Lovenox), lupus, SVT s/p loop recorder, HOSEA, hypothyroidism, POTS, and migraine headaches presents with complaint/s of headache. Headache -Concern for chronic tension type LONG vs pre-eclampsia -LONG does not seem consistent with patient's typical migraine -With no papilledema or positional association, low concern for IIH -Would obtain MRI brain to ensure there is no intracranial abn (especially as patient is on lovenoxand has hx of clotting disorder) -Can continue Excedrin -Will try a one time dose of IVSM 125mg -If IVSM is helpful, can schedule dosing -Will defer pre-eclampsia monitoring to primary * Koffi Adams - 12/26/2022 11:57 PM EDTAssociated Order(s): IP CONSULT TO OPHTHALMOLOGY Ophthalmology consult note Present illness: 32 yo female 18 weeks with complaint of headache for 10 days. Has long history of migraine LONG's with associated visual changes. States this headache is different in character from her migraine LONG's. Eye examination: Visual acuity with corrective lenses and near vision card 20/25 right eye (OD) and20/20 left eye (OS). No red color desaturation either eye. Pupils equal and reactive to light (RONY). No afferent pupillary defect (APD). EOM's full and comitant. Cranial nerve (CN) III- normal. Intraocular pressure (IOP) with Schiotz tonometer 7.1 mmHg both eyes (OU). Dilated funduscopic exam with direct and indirect ophthalmoscope reveals normal optic nervehead both eyes (OU) without papilledema and cup-to-disc ratio (C/D) 0.3 both eyes (OU). Vitreous clear, normal retinal vasculature, normal retina and retinal periphery/ all both eyes (OU). Confrontation visual field full both eyes (OU). Impression: #1 Migraine headaches by history #2 Headache/recent/different character by hx/ undetermined etiology/possible migraine variant. #3 No ocular/funduscopic evidence of pre-eclampsia. documented in this [id number] Consult note* Maggie Bejarano APRN - SCHEDULE CHECKER - 12/27/2022 8:00 AM EDTAssociated Order(s): IP CONSULT TO NEUROLOGY General Neurology Consult Patient: Ambika Brown Date of : 1990 Acct: [id number] PCP: Mega Weeks MD Date of Admission: 12/26/2022 Date of Service: Pt seen/examined on 12/27/22 Chief Complaint: Headache History Of Present Illness: 32 y.o. female with past medical history significant for asthma, GERD, antiphospholipid antibody syndrome (on Lovenox), lupus, SVT s/p loop recorder, HOSEA, hypothyroidism, POTS, and migraine headaches presents with complaint/s of headache. The patient states that for the last 2 weeks she has been having a headache, described as pressure in the back of her head that wraps around the sides. She denies any photophobia, phonophobia, nausea, or vomiting. At home she tried some Excedrin but it didn't provide any relief. She was seen by ophthalmology who didn't find any evidence of ocular/funduscopic evidence of pre-eclampsia. Patient has a history of migraine headaches but states that this is different than her typical migraine headache. Her typical migraines are described as being a frontal headache that is pulsating. She will have photophobia, phonophobia, tunnel vision, nausea, and vomiting. Patient can have hemiplegic migraines. Patient follows with [facility] migraine clinic. She was getting Botox but stopped after becoming . Her last office visit was on 09/12/22. The plan was to stop Botox until after and was completed. She was started on cyproheptadine 4mg that could be taken at onset of migraine.However, patient hasn't been taking. Since being admitted, patient was given Excedrin, Reglan, magnesium, and flexeril without any significant improvement. Patient is 18 weeks . Past Medical History: Past Medical History: Diagnosis Date Asthma GERD (gastroesophageal reflux disease) Infertility, female Joint pain b/l knees, b/l ankles Lupus anticoagulant affecting in second trimester, antepartum (HCC) Migraines Obesity Sinus tachycardia Past Surgical History: Past Surgical History: Procedure Laterality Date CHOLECYSTECTOMY CVHX IMPLANTABLE LOOP RECORDER SYSTEM 08/23/2022 TONSILLECTOMY (HISTORICAL) WISDOM TOOTH EXTRACTION Home Medications: Prior to Admission medications Medication Sig Start Date End Date Taking? Authorizing Provider ascorbic acid (Vitamin C) 500 MG tablet Take 500 mg by mouth 2 times daily. Historical Provider, aspirin 81 MG EC tablet Take 162 mg by mouth daily. Historical Provider, cholecalciferol (Vitamin D3) 200 Unit tablet split tablet Take by mouth. Historical Provider, enoxaparin (Lovenox) 40 MG/0.4ML solution prefilled syringe Inject 40 mg under the skin daily. Historical Provider, labetalol (Normodyne) 200 MG tablet Take 1 tablet (200 mg) by mouth 3 times daily. 12/24/22 06/22/23Shahnaz Hahn DO levothyroxine (Synthroid, Levoxyl) 50 MCG tablet Take 50 mcg by mouth every morning (before breakfast). Historical Provider, [id number]-[place]-3 ( GUMMIES/DHA & FA PO) Take 2 tablets by mouth daily. Historical Provider, sodium chloride 0.9 % nebulizer solution with albuterol (5 MG/ML) 0.5% nebulizer solution 0.9 mg/mLInhale 2 puffs 4 times daily as needed. Historical Provider, labetalol (Normodyne) 100 MG tablet Take 100 mg by mouth in the morning and 100 mg in the evening. 12/05/22 12/24/22 Historical ProviderMD labetalol (Normodyne) 200 MG tablet Take 200 mg by mouth 2 times daily. 12/24/22 Historical Provider, Current Hospital Medications: Current Facility-Administered Medications: Acetaminophen-Caffeine (Excedrin Tension Headache) 2 tablet, 2 tablet, Oral, 3 times per day, Shaw Del Angel MD, 2 tablet at 12/27/22 0621 aspirin EC tablet 162 mg, 162 mg, Oral, Nightly, Shaw Del Angel MD cholecalciferol (Vitamin D-3) tablet 200 Units, 200 Units, Oral, Nightly, Shaw Del Angel MD cyclobenzaprine (Flexeril) tablet 10 mg, 10 mg, Oral, TID PRN, Shaw Del Angel MD enoxaparin (Lovenox) syringe 40 mg, 40 mg, SubCUTAneous, Nightly, Shaw Del Angel MD famotidine (Pepcid) tablet 20 mg, 20 mg, Oral, BID, 20 mg at 12/26/22 2331 OR famotidine (Pepcid) injection 20 mg, 20 mg, IntraVENous, BID, Jhoana Camejo DO labetalol (Normodyne) tablet 200 mg, 200 mg, Oral, TID, Shaw Del Angel MD, 200 mg at 12/26/22 1742 levothyroxine (Synthroid, Levoxyl) tablet 50 mcg, 50 mcg, Oral, qAM AC, Shaw Del Angel MD, 50 mcgat 12/27/22620 magnesium oxide (Mag-Ox) tablet 400 mg, 400 mg, Oral, Daily, Shaw Del Angel MD, 400 mg at 12/26/222010 ondansetron ODT (Zofran-ODT) disintegrating tablet 4 mg, 4 mg, Oral, q8h PRN OR ondansetron (Zofran) injection 4 mg, 4 mg, IntraVENous, q6h PRN, Shaw Del Angel MD 19 chewable tablet, 1 tablet, Oral, Nightly, Shaw Del Angel MD, 1 tablet at 12/26/222010 sodium chloride 0.9 % infusion, 5-250 mL/hr, IntraVENous, PRN, Shaw Del Angel MD sodium chloride 0.9% (NS) flush 10 mL, 10 mL, IntraVENous, 2 times per day, Shaw Del Angel MD sodium chloride 0.9% (NS) flush 10 mL, 10 mL, IntraVENous, PRN, Shaw Del Angel MD Allergies: Compazine [prochlorperazine] and Diphenhydramine Social History: The patient currently lives at home TOBACCO: reports that she has never smoked. She has never used smokeless tobacco. ETOH: reports no history of alcohol use. RECREATIONAL DRUG USE: Social History Substance and Sexual Activity Drug Use No Family History: Family History Problem Relation Name Age of Onset Hypertension Mother Diabetes Paternal Grandmother Diabetes Paternal Grandfather Diabetes Maternal Grandfather Diabetes Maternal Grandmother Hypertension Father REVIEW OF SYSTEMS: CONSTITUTIONAL: negative for fevers and chills, nightsweats EYES: negative for irritation and redness, change in visual acuity HEENT: negative for earaches, ear drainage, and nasal congestion RESPIRATORY: negative for dry cough, wheezing and chest pain CARDIOVASCULAR: negative for palpitations, dyspnea, chest pain GASTROINTESTINAL: negative for nausea, vomiting and change in bowel habits GENITOURINARY: negative for change in frequency, dysuria and hematuria ENDOCRINE: negative for heat or cold intolerance of significant weight change MUSCULOSKELETAL: negative for myalgias, arthralgias and pain NEUROLOGICAL: positive for headache BEHAVIOR/PSYCH: negative for significant mood changes, anxiety, or agitation PHYSICAL EXAM: BP 111/52 Pulse 74 Temp 36.5 C (97.7 F) (Temporal) Resp 15 Ht 1.715 m (5' 7.5) Wt (!) 151 kg (333 lb) SpO2 95% BMI 51.39 kg/m General Appearance: NAD Cardiovascular: +S1, S2 Pulmonary: +BS Abdomen: Soft, nontender, nondistended Skin: Intact Extremities: No lower extremity edema Mental Status Exam: Level of Alertness: awake Orientation: person, place, time Memory: normal Fund of Knowledge: normal Attention/Concentration: normal Language: normal Funduscopic Exam: Attempted, discs not well visualized Cranial Nerves Cranial nerve II Visual acuity: normal Visual anderson: normal Cranial nerve III Pupils: equal, round, reactive to light Cranial nerves III, IV, Extraocular Movements: intact Cranial nerve V Facial sensation: intact Cranial nerve VII Facial strength: intact Cranial nerve VIII Hearing: intact Cranial nerve IX Palate: intact Cranial nerve XI Shoulder shrug: intact Cranial nerve XII Tongue movement: normal Motor: Drift: absent Motor: 5/5 throughout Tone: normal Abnormal Movements: absent Sensory: Temperature Right Upper Extremity: normal Left Upper Extremity: normal Right Lower Extremity: normal Left Lower Extremity: normal Vibration Right Upper Extremity: normal Left Upper Extremity: normal Right Lower Extremity: normal Left Lower Extremity: normal Touch Right Upper Extremity: normal Left Upper Extremity: normal Right Lower Extremity: normal Left Lower Extremity: normal Proprioception Right Upper Extremity: normal Left Upper Extremity: normal Right Lower Extremity: normal Left Lower Extremity: normal Coordination: Finger/Nose Right: normal Left: normal [id number]-[id number] Right: normal Left: normal Rapid Alternating Movements Right: normal Left: normal Gait: deferred secondary to fall risk Reflexes: Deep Tendon Reflexes: 2+ throughout Plantar response: Right: downgoing Left: downgoing Labs: Recent Labs 12/24/22200012/26/22 1547 WBC 12.3* 14.2* HGB 11.4* 13.2 HCT 34.9* 40.1 PLT 187 220 Recent Labs 12/24/22200012/26/22 1547 NA 135 140 K 3.7 4.2 CL 107 106 CO2 21* 23 BUN 6* 6* CREATININE 0.44* 0.52 CALCIUM 9.2 9.9 Recent Labs 12/24/22200012/26/22 1547 AST 26 42 ALT 23 32 BILITOT 0.3 0.6 ALKPHOS 92 119 Recent Labs 12/26/22 1547 ALKPHOS 119 ALT 32 AST 42 BILITOT 0.6 Radiology: (personally reviewed) MRI Brain/MRA Head/Neck wo contrast 05/19/17 Normal examinations. ASSESSMENT/PLAN: Patient is a 32 yo female with PMH of asthma, GERD, antiphospholipid antibody syndrome (on Lovenox), lupus, SVT s/p loop recorder, HOSEA, hypothyroidism, POTS, and migraine headaches presents with complaint/s of headache. Headache -Concern for chronic headache vs migraine headache -Would obtain MRI brain to ensure there is no intracranial abn -Patient has history of antiphospholipid antibody syndrome, she is currently on Lovenox -Can continue Excedrin -Will try a one time dose of IVSM 125mg -If IVSM is helpful, can schedule dosing -Follow up with outpatient neurology - follows with [facility] -18 weeks -Per OB HTN -On labetalol -Bps have been normotensive -Per primary APLS -On Lovenox -Per primary SVT/POTS -Stable -Loop recorder placed 08/2022 HOSEA -Encourage use of CPAP Hypothyroidism -On Synthroid -Per primary Patient seen and discussed with Dr. Lin Associated attestation - Kenya Lin MD - 12/27/2022 3:34 PM EDT I have seen, examined and evaluated the patient with the resident physician or nurse practitioner under my direct supervision. I have reviewed the resident physician's or nurse practitioner's note and agree with the assessment and plan of care as documented with the following addendum. HPI, social history, family history, and ROS have been reviewed and verified. Briefly, patient is a 32 yo, 18 week , female with history of asthma, GERD, antiphospholipid antibody syndrome (on Lovenox), lupus, SVT s/p loop recorder, HOSEA, hypothyroidism, POTS, and migraine headaches presents with complaint/s of headache. While patient endorses extensive history of migraine, this LONG feels different from typical migraines. Her typical migraine is throbbing frontal LONG with n/v/p/p phobia. For the past two weeks. She hashad constant occipital pressure type of LONG with no migraine associated features. She denies vision change or focal motor/sensory deficits. No positional association. She does have some neck tightnesswhich she occasionally gets with headaches. She follows with [facility] for migraines and was receiving botox prior to . During , she was instructed to use periactin for abortive therapy if needed. She did have an elevated BP of 158/74 on arrival and proteinuria, but BP's have been normotensive since admission. OB is monitoring for pre-eclampsia. Ophthalmology has evaluated with no findings of papilledema. Neurologic exam as below (Examined independently, any additions, pertinent findings, or revisions noted here) Assessment and Plan: 32 yo female with PMH of asthma, GERD, antiphospholipid antibody syndrome (on Lovenox), lupus, SVT s/p loop recorder, HOSEA, hypothyroidism, POTS, and migraine headaches presents with complaint/s of headache. Headache -Concern for chronic tension type LONG vs pre-eclampsia -LONG does not seem consistent with patient's typical migraine -With no papilledema or positional association, low concern for IIH -Would obtain MRI brain to ensure there is no intracranial abn (especially as patient is on lovenoxand has hx of clotting disorder) -Can continue Excedrin -Will try a one time dose of IVSM 125mg -If IVSM is helpful, can schedule dosing -[id number] Consult note* Koffi Adams - 12/26/2022 11:57 PM EDTAssociated Order(s): IP CONSULT TO OPHTHALMOLOGY Ophthalmology consult note Present illness: 32 yo female 18 weeks with complaint of headache for 10 days. Has long history of migraine LONG's with associated visual changes. States this headache is different in character from her migraine LONG's. Eye examination: Visual acuity with corrective lenses and near vision card 20/25 right eye (OD) and20/20 left eye (OS). No red color desaturation either eye. Pupils equal and reactive to light (RONY). No afferent pupillary defect (APD). EOM's full and comitant. Cranial nerve (CN) III- normal. Intraocular pressure (IOP) with Schiotz tonometer 7.1 mmHg both eyes (OU). Dilated funduscopic exam with direct and indirect ophthalmoscope reveals normal optic nervehead both eyes (OU) without papilledema and cup-to-disc ratio (C/D) 0.3 both eyes (OU). Vitreous clear, normal retinal vasculature, normal retina and retinal periphery/ all both eyes (OU). Confrontation visual field full both eyes (OU). Impression: #1 Migraine headaches by history #2 Headache/recent/different character by hx/ undetermined etiology/possible migraine variant. #3 No ocular/funduscopic evidence of pre-eclampsia. 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 I discussed the management with the resident physician. I reviewed and agree with the findings and plan as documented in the note. Department of Maternal Medicine History and Physical CHIEF COMPLAINT: headache HISTORY OF PRESENT ILLNESS: The patient is a 32 y.o. female at 18w5d. OB History 6 Para 0 Term AB 5 Living 0 SAB IAB Ectopic Multiple Live Births Patient presents with a chief complaint as above and is being admitted for headache. Patient states for the last week and a half she has been having a headache. Describes as tension band in the back of her head that wraps around the sides and states that it is different than her typical migraines. States the headache is a pressure feeling throughout her head, not localized to one area. She states she occasionally gets floaters in her vision due to the headache. She denies any nausea or vomiting at this time. She has tried Excedrin Tension Headache at home, she did try it today, it has not provided any relief. She denies any chest pain, RUQ pain, SOB. Transport: No Prior Hospitalizations: No Estimated Due Date: Estimated Date of Delivery: 05/24/23 CARE: Complications: See Below PAST OB HISTORY: OB History 6 Para 0 Term AB 5 Living 0 SAB IAB Ectopic Multiple Live Births Detailed OB History SAB SAB SAB SAB SAB Current Past Medical History: Past Medical History: Diagnosis Date Asthma GERD (gastroesophageal reflux disease) Infertility, female Joint pain b/l knees, b/l ankles Lupus anticoagulant affecting in second trimester, antepartum (HCC) Migraines Obesity Sinus tachycardia Past Surgical History: Past Surgical History: Procedure Laterality Date CHOLECYSTECTOMY CVHX IMPLANTABLE LOOP RECORDER SYSTEM 08/23/2022 TONSILLECTOMY (HISTORICAL) WISDOM TOOTH EXTRACTION Allergies: Compazine [prochlorperazine] and Diphenhydramine Social History: Social History Socioeconomic History Marital status: Spouse name: Luis Brown Number of children: Not on file Years of education: Not on file Highest education level: Not on file Occupational History Not on file Tobacco Use Smoking status: Never Smokeless tobacco: Never Substance and Sexual Activity Alcohol use: No Drug use: No Sexual activity: Not on file Other Topics Concern Not on file Social History Narrative Not on file Social Determinants of Health Financial Resource Strain: Not on file Food Insecurity: Not on file Transportation Needs: No Transportation Needs Lack of Transportation (Medical): No Lack of Transportation (Non-Medical): No Physical Activity: Not on file Stress: Not on file Social Connections: Not on file Intimate Partner Violence: Not on file Housing Stability: Low Risk Unable to Pay for Housing in the Last Year: No Number of Places Lived in the Last Year: 1 Unstable Housing in the Last Year: No Family History: Family History Problem Relation Name Age of Onset Hypertension Mother Diabetes Paternal Grandmother Diabetes Paternal Grandfather Diabetes Maternal Grandfather Diabetes Maternal Grandmother Hypertension Father Medications Prior to Admission: Medications Prior to Admission Medication Sig Dispense Refill Last Dose ascorbic acid (Vitamin C) 500 MG tablet Take 500 mg by mouth 2 times daily. 12/25/2022 aspirin 81 MG EC tablet Take 162 mg by mouth daily. 12/25/2022 cholecalciferol (Vitamin D3) 200 Unit tablet split tablet Take by mouth. 12/25/2022 enoxaparin (Lovenox) 40 MG/0.4ML solution prefilled syringe Inject 40 mg under the skin daily. 12/25/2022 labetalol (Normodyne) 200 MG tablet Take 1 tablet (200 mg) by mouth 3 times daily. 90 tablet 5 12/26/2022 levothyroxine (Synthroid, Levoxyl) 50 MCG tablet Take 50 mcg by mouth every morning (before breakfast). 12/26/2022 HE-Spe-SO-[place]-3 ( GUMMIES/DHA & FA PO) Take 2 tablets by mouth daily. 12/25/2022 sodium chloride 0.9 % nebulizer solution with albuterol (5 MG/ML) 0.5% nebulizer solution 0.9 mg/mL Inhale 2 puffs 4 times daily as needed. More than a month REVIEW OF SYSTEMS: Review of Systems Constitutional: Negative for activity change, chills and fever. HENT: Negative for congestion, sinus pain and sore throat. Eyes: Negative for redness. Respiratory: Negative for cough and shortness of breath. Cardiovascular: Negative for chest pain. Gastrointestinal: Negative for abdominal dist (more content not included)... [facility]04-18-2023 History and physical note* Shaw Del Angel MD - 12/26/2022 4:10 PM EDT Department of Maternal Medicine History and Physical CHIEF COMPLAINT: headache HISTORY OF PRESENT ILLNESS: The patient is a 32 y.o. female at 18w5d. OB History 6 Para 0 Term AB 5 Living 0 SAB IAB Ectopic Multiple Live Births Patient presents with a chief complaint as above and is being admitted for headache. Patient statesfor the last week and a half she has been having a headache. Describes as tension band in the back of her head that wraps around the sides and states that it is different than her typical migraines. States the headache is a pressure feeling throughout her head, not localized to one area. She states she occasionally gets floaters in her vision due to the headache. She denies any nausea or vomiting at this time. She has tried Excedrin Tension Headache at home, she did try it today, it has not provided any relief. She denies any chest pain, RUQ pain, SOB. Transport: No Prior Hospitalizations: No Estimated Due Date: Estimated Date of Delivery: 05/24/23 CARE: Complications: See Below PAST OB HISTORY: OB History 6 Para 0 Term AB 5 Living 0 SAB IAB Ectopic Multiple Live Births Detailed OB History SAB SAB SAB SAB SAB Current Past Medical History: Past Medical History: Diagnosis Date Asthma GERD (gastroesophageal reflux disease) Infertility, female Joint pain b/l knees, b/l ankles Lupus anticoagulant affecting in second trimester, antepartum (HCC) Migraines Obesity Sinus tachycardia Past Surgical History: Past Surgical History: Procedure Laterality Date CHOLECYSTECTOMY CVHX IMPLANTABLE LOOP RECORDER SYSTEM 08/23/2022 TONSILLECTOMY (HISTORICAL) WISDOM TOOTH EXTRACTION Allergies: Compazine [prochlorperazine] and Diphenhydramine Social History: Social History Socioeconomic History Marital status: Spouse name: Luis Brown Number of children: Not on file Years of education: Not on file Highest education level: Not on file Occupational History Not on file Tobacco Use Smoking status: Never Smokeless tobacco: Never Substance and Sexual Activity Alcohol use: No Drug use: No Sexual activity: Not on file Other Topics Concern Not on file Social History Narrative Not on file Social Determinants of Health Financial Resource Strain: Not on file Food Insecurity: Not on file Transportation Needs: No Transportation Needs Lack of Transportation (Medical): No Lack of Transportation (Non-Medical): No Physical Activity: Not on file Stress: Not on file Social Connections: Not on file Intimate Partner Violence: Not on file Housing Stability: Low Risk Unable to Pay for Housing in the Last Year: No Number of Places Lived in the Last Year: 1 Unstable Housing in the Last Year: No Family History: Family History Problem Relation Name Age of Onset Hypertension Mother Diabetes Paternal Grandmother Diabetes Paternal Grandfather Diabetes Maternal Grandfather Diabetes Maternal Grandmother Hypertension Father Medications Prior to Admission: Medications Prior to Admission Medication Sig Dispense Refill Last Dose ascorbic acid (Vitamin C) 500 MG tablet Take 500 mg by mouth 2 times daily. 12/25/2022 aspirin 81 MG EC tablet Take 162 mg by mouth daily. 12/25/2022 cholecalciferol (Vitamin D3) 200 Unit tablet split tablet Take by mouth. 12/25/2022 enoxaparin (Lovenox) 40 MG/0.4ML solution prefilled syringe Inject 40 mg under the skin daily. 12/25/2022 labetalol (Normodyne) 200 MG tablet Take 1 tablet (200 mg) by mouth 3 times daily. 90 tablet 5 12/26/2022 levothyroxine (Synthroid, Levoxyl) 50 MCG tablet Take 50 mcg by mouth every morning (before breakfast). 12/26/2022 [id number]-Mvr-IN-[place]-3 ( GUMMIES/DHA & FA PO) Take 2 tablets by mouth daily. 12/25/2022 sodium chloride 0.9 % nebulizer solution with albuterol (5 MG/ML) 0.5% nebulizer solution 0.9 mg/mLInhale 2 puffs 4 times daily as needed. More than a month REVIEW OF SYSTEMS: Review of Systems Constitutional: Negative for activity change, chills and fever. HENT: Negative for congestion, sinus pain and sore throat. Eyes: Negative for redness. Respiratory: Negative for cough and shortness of breath. Cardiovascular: Negative for chest pain. Gastrointestinal: Negative for abdominal distention, abdominal pain, diarrhea, nausea and vomiting. Genitourinary: Negative for dysuria, hematuria and urgency. Musculoskeletal: Negative for myalgias. Skin: Negative for rash. Neurological: Positive for headaches. Negative for dizziness, seizures and light-headedness. Psychiatric/Behavioral: Negative for agitation and behavioral problems. All other systems reviewed and are negative. Labs: CBC: Lab Results Component Value Date WBC 14.2 (H) 12/26/2022 RBC 4.97 12/26/2022 HGB 13.2 12/26/2022 HCT 40.1 12/26/2022 MCV 80.7 12/26/2022 MCH 26.5 12/26/2022 MCHC 32.9 12/26/2022 RDW 16.1 (H) 12/26/2022 PLT 220 12/26/2022 MPV 9.9 12/26/2022 PHYSICAL EXAM: Vitals: 12/26/22 1505 12/26/22 1647 12/26/22 1651 BP: (!) 158/74 109/58 Pulse: 90 83 Resp: 20 18 Temp: 36.7 C (98.1 F) 37.2 C (98.9 F) TempSrc: Oral Temporal SpO2: 97% Weight: (!) 151 kg (333 lb) Height: 1.715 m (5' 7.5) General appearance: awake, alert, cooperative, no apparent distress, and appears stated age Neurologic: Awake, alert, oriented to name, place and time. Lungs: No increased work of breathing, good air exchange Abdomen: Soft, non tender, gravid, consistent with her gestational age ASSESSMENT AND PLAN: LABOR DELIVERY ??? SCD's ONLY (labor through ambulation) SCD's PLUS Prophylactic Anticoagulation until discharge SCD's PLUS Prophylactic Anticoagulation for 6 weeks SCD's PLUS Therapeutic Anticoagulation for 6 weeks Vaginal Delivery [] BMI ? 40 kg/m2 Delivery All patients Vaginal Delivery [] BMI ? 40 kg/m2 AND [] Antepartum hospitalization ? 72 hours within the past month Delivery 1 Major Risk Factor: [] BMI ? 35 kg/m2 [] Low Risk Thrombophilia [] PPH+RBCs, IR, or operation [] Infection+Antibiotics [] Antepartum hospitalization ? 72 hours within the past month [] PMH: Sickle Cell, SLE, Cardiac Dz, Active IBD, Active Cancer, Nephrotic Syndrome OR 2 Minor Risk Factors: [] Multiple gestation [] Age > 40 [] PPH ? 1,000cc [] (+)FMH of VTE [] Smoker [] Preeclampsia [] BMI ? 40 kg/m2 AND [] Low Risk Thrombophilia OR ANY OF THE FOLLOWING: [] High Risk Thrombophilia without prior VTE [] Low Risk Thrombophilia with (+)FMH of VTE [] Any single prior VTE ANY OF THE FOLLOWING: [] Already on LMWH/UFH [] Multiple prior VTE [] High Risk Thrombophilia with prior VTE Low Risk Thrombophilia: FVL (heterozygous), Prothrombin (heterozygous), Protein C, Protein S High Risk Thrombophilia: FVL (homozygous), Prothrombin (homozygous), FVL+Prothrombin (heterozygous), Antithrombin III, APLS VTE Prophylaxis: Continue current lovenox Admission: Admit to Antepartum (PNU) FHR: 146 by doppler, FHT daily Labs: GBS not obtained GC/CT collected Urine collected FFN not obtained Type&Screen obtained and reviewed Serum Labs CBC, CMP Consults: MFM Imaging: TBD Diet: General Testing: TBD, likely twice weekly NST/BPP and q4w Growth US Timing and Route of Delivery: TBD pending control Medications: Neuroprotection Not indicated Tocolysis Not indicated Antibiotics Not indicated Steroids: Betamethasone - not indicated Chronic Migraines - Follows with [facility] - Was getting Botox x4 years but stopped in - Presented with LONG x1.5 weeks that is different from typical migraines - Admitted for neurology and ophthalmology consults, appreciate the recs - Excedrin, reglan, and magnesium scheduled with flexeril prn cHTN - Was on metoprolol prior to for SVT, unclear when patient was diagnosed - Mild range BP's this and started on labetalol 12/18 in triage - Baseline UPC 0.15 but more recently 0.4 on 12/24 - Labetalol titrated to 200mg TID 12/24 - BP mild range on arrival but normotensive after, will continue to monitor closely - PreE labs wnl, UPC not obtained Recurrent loss APLS - SAB x4, ectopic x1 - Workup positive for lupus anticoagulation - Lovenox this , continue 6w pp Paroxysmal SVT PVC's/Palpitations POTS - 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 with promotions producer in [place] - Hx syncopal episodes - Structually normal heart and stress test - EP attempted ablation but could not elicit dysrhythmia to ablate - No syncopal episodes since 06/2022 - Implantable loop recorder placed 08/2022 to discover arrhythmia if present - Labetalol preferred to procardia given hx SVT and ectopy - Check electrolytes q trimester or more often if symptoms (goal mag > 2.0) HOSEA - Has not been using CPAP due to discomfort in - Dx in 04/2022 with sleep study (mild) Hypothyroidism - Synthroid 50mcg daily - TSH wnl 12/05 Vit D Deficiency - Vit D 11/06 low at 19.2 - Supplementation ordered Anxiety - Related to loss - Not on meds Metabolic Syndrome Obesity - BMI 51 - Early 1hr normal, 122; plan to repeat at 24w - Managed by Dr. Weeks at [facility] - Insulin resistance, most recent A1c 5.8 on 10/06/22 Asthma - Childhood/ Exercise induced - No hospitalizations or intubations - Rare inhaler use Infertility - Achieved with Clomid and dexamethasone on 2nd round IUP @ 18w5d - Dating by 7w0d US - Monitoring: FHT daily - Diet: General - BMZ deferred Discussed with Dr Dao, who agrees with plan. 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 I discussed the management with the resident physician. I reviewed and agree with the findings and plan as documented in the note. [id number] History and physical note* Shaw Del Angel MD - 12/26/2022 4:10 PM EDT Department of Maternal Medicine History and Physical CHIEF COMPLAINT: headache HISTORY OF PRESENT ILLNESS: The patient is a 32 y.o. female at 18w5d. OB History 6 Para 0 Term AB 5 Living 0 SAB IAB Ectopic Multiple Live Births Patient presents with a chief complaint as above and is being admitted for headache. Patient statesfor the last week and a half she has been having a headache. Describes as tension band in the back of her head that wraps around the sides and states that it is different than her typical migraines. States the headache is a pressure feeling throughout her head, not localized to one area. She states she occasionally gets floaters in her vision due to the headache. She denies any nausea or vomiting at this time. She has tried Excedrin Tension Headache at home, she did try it today, it has not provided any relief. She denies any chest pain, RUQ pain, SOB. Transport: No Prior Hospitalizations: No Estimated Due Date: Estimated Date of Delivery: 05/24/23 CARE: Complications: See Below PAST OB HISTORY: OB History 6 Para 0 Term AB 5 Living 0 SAB IAB Ectopic Multiple Live Births Detailed OB History SAB SAB SAB SAB SAB Current Past Medical History: Past Medical History: Diagnosis Date Asthma GERD (gastroesophageal reflux disease) Infertility, female Joint pain b/l knees, b/l ankles Lupus anticoagulant affecting in second trimester, antepartum (HCC) Migraines Obesity Sinus tachycardia Past Surgical History: Past Surgical History: Procedure Laterality Date CHOLECYSTECTOMY CVHX IMPLANTABLE LOOP RECORDER SYSTEM 08/23/2022 TONSILLECTOMY (HISTORICAL) WISDOM TOOTH EXTRACTION Allergies: Compazine [prochlorperazine] and Diphenhydramine Social History: Social History Socioeconomic History Marital status: Spouse name: Luis Brown Number of children: Not on file Years of education: Not on file Highest education level: Not on file Occupational History Not on file Tobacco Use Smoking status: Never Smokeless tobacco: Never Substance and Sexual Activity Alcohol use: No Drug use: No Sexual activity: Not on file Other Topics Concern Not on file Social History Narrative Not on file Social Determinants of Health Financial Resource Strain: Not on file Food Insecurity: Not on file Transportation Needs: No Transportation Needs Lack of Transportation (Medical): No Lack of Transportation (Non-Medical): No Physical Activity: Not on file Stress: Not on file Social Connections: Not on file Intimate Partner Violence: Not on file Housing Stability: Low Risk Unable to Pay for Housing in the Last Year: No Number of Places Lived in the Last Year: 1 Unstable Housing in the Last Year: No Family History: Family History Problem Relation Name Age of Onset Hypertension Mother Diabetes Paternal Grandmother Diabetes Paternal Grandfather Diabetes Maternal Grandfather Diabetes Maternal Grandmother Hypertension Father Medications Prior to Admission: Medications Prior to Admission Medication Sig Dispense Refill Last Dose ascorbic acid (Vitamin C) 500 MG tablet Take 500 mg by mouth 2 times daily. 12/25/2022 aspirin 81 MG EC tablet Take 162 mg by mouth daily. 12/25/2022 cholecalciferol (Vitamin D3) 200 Unit tablet split tablet Take by mouth. 12/25/2022 enoxaparin (Lovenox) 40 MG/0.4ML solution prefilled syringe Inject 40 mg under the skin daily. 12/25/2022 labetalol (Normodyne) 200 MG tablet Take 1 tablet (200 mg) by mouth 3 times daily. 90 tablet 5 12/26/2022 levothyroxine (Synthroid, Levoxyl) 50 MCG tablet Take 50 mcg by mouth every morning (before breakfast). 12/26/2022 [id number] ( GUMMIES/DHA & FA PO) Take 2 tablets by mouth daily. 12/25/2022 sodium chloride 0.9 % nebulizer solution with albuterol (5 MG/ML) 0.5% nebulizer solution 0.9 mg/mLInhale 2 puffs 4 times daily as needed. More than a month REVIEW OF SYSTEMS: Review of Systems Constitutional: Negative for activity change, chills and fever. HENT: Negative for congestion, sinus pain and sore throat. Eyes: Negative for redness. Respiratory: Negative for cough and shortness of breath. Cardiovascular: Negative for chest pain. Gastrointestinal: Negative for abdominal distention, abdominal pain, diarrhea, nausea and vomiting. Genitourinary: Negative for dysuria, hematuria and urgency. Musculoskeletal: Negative for myalgias. Skin: Negative for rash. Neurological: Positive for headaches. Negative for dizziness, seizures and light-headedness. Psychiatric/Behavioral: Negative for agitation and behavioral problems. All other systems reviewed and are negative. Labs: CBC: Lab Results Component Value Date WBC 14.2 (H) 12/26/2022 RBC 4.97 12/26/2022 HGB 13.2 12/26/2022 HCT 40.1 12/26/2022 MCV 80.7 12/26/2022 MCH 26.5 12/26/2022 MCHC 32.9 12/26/2022 RDW 16.1 (H) 12/26/2022 PLT 220 12/26/2022 MPV 9.9 12/26/2022 PHYSICAL EXAM: Vitals: 12/26/22 1505 12/26/22 1647 12/26/22 1651 BP: (!) 158/74 109/58 Pulse: 90 83 Resp: 20 18 Temp: 36.7 C (98.1 F) 37.2 C (98.9 F) TempSrc: Oral Temporal SpO2: 97% Weight: (!) 151 kg (333 lb) Height: 1.715 m (5' 7.5) General appearance: awake, alert, cooperative, no apparent distress, and appears stated age Neurologic: Awake, alert, oriented to name, place and time. Lungs: No increased work of breathing, good air exchange Abdomen: Soft, non tender, gravid, consistent with her gestational age ASSESSMENT AND PLAN: LABOR DELIVERY ??? SCD's ONLY (labor through ambulation) SCD's PLUS Prophylactic Anticoagulation until discharge SCD's PLUS Prophylactic Anticoagulation for 6 weeks SCD's PLUS Therapeutic Anticoagulation for 6 weeks Vaginal Delivery [] BMI ? 40 kg/m2 Delivery All patients Vaginal Delivery [] BMI ? 40 kg/m2 AND [] Antepartum hospitalization ? 72 hours within the past month Delivery 1 Major Risk Factor: [] BMI ? 35 kg/m2 [] Low Risk Thrombophilia [] PPH+RBCs, IR, or operation [] Infection+Antibiotics [] Antepartum hospitalization ? 72 hours within the past month [] PMH: Sickle Cell, SLE, Cardiac Dz, Active IBD, Active Cancer, Nephrotic Syndrome OR 2 Minor Risk Factors: [] Multiple gestation [] Age > 40 [] PPH ? 1,000cc [] (+)FMH of VTE [] Smoker [] Preeclampsia [] BMI ? 40 kg/m2 AND [] Low Risk Thrombophilia OR ANY OF THE FOLLOWING: [] High Risk Thrombophilia without prior VTE [] Low Risk Thrombophilia with (+)FMH of VTE [] Any single prior VTE ANY OF THE FOLLOWING: [] Already on LMWH/UFH [] Multiple prior VTE [] High Risk Thrombophilia with prior VTE Low Risk Thrombophilia: FVL (heterozygous), Prothrombin (heterozygous), Protein C, Protein S High Risk Thrombophilia: FVL (homozygous), Prothrombin (homozygous), FVL+Prothrombin (heterozygous), Antithrombin III, APLS VTE Prophylaxis: Continue current lovenox Admission: Admit to Antepartum (PNU) FHR: 146 by doppler, FHT daily Labs: GBS not obtained GC/CT collected Urine collected FFN not obtained Type&Screen obtained and reviewed Serum Labs CBC, CMP Consults: MFM Imaging: TBD Diet: General Testing: TBD, likely twice weekly NST/BPP and q4w Growth US Timing and Route of Delivery: TBD pending control Medications: Neuroprotection Not indicated Tocolysis Not indicated Antibiotics Not indicated Steroids: Betamethasone - not indicated Chronic Migraines - Follows with [facility] migraine clinic - Was getting Botox x4 years but stopped in - Presented with LONG x1.5 weeks that is different from typical migraines - Admitted for neurology and ophthalmology consults, appreciate the recs - Excedrin, reglan, and magnesium scheduled with flexeril prn cHTN - Was on metoprolol prior to for SVT, unclear when patient was diagnosed - Mild range BP's this and started on labetalol 12/18 in triage - Baseline UPC 0.15 but more recently 0.4 on 12/24 - Labetalol titrated to 200mg TID 12/24 - BP mild range on arrival but normotensive after, will continue to monitor closely - PreE labs wnl, UPC not obtained Recurrent loss APLS - SAB x4, ectopic x1 - Workup positive for lupus anticoagulation - Lovenox this , continue 6w pp Paroxysmal SVT PVC's/Palpitations POTS - Follows with promotions producer in [place] - Hx syncopal episodes - Structually normal heart and stress test - EP attempted ablation but could not elicit dysrhythmia to ablate - No syncopal episodes since 06/2022 - Implantable loop recorder placed 08/2022 to discover arrhythmia if present - Labetalol preferred to procardia given hx SVT and ectopy - Check electrolytes q trimester or more often if symptoms (goal mag > 2.0) [place] - Has not been using CPAP due to discomfort in - Dx in 04/2022 with sleep study (mild) Hypothyroidism - Synthroid 50mcg daily - TSH wnl 12/05 Vit D Deficiency - Vit D 11/06 low at 19.2 - Supplementation ordered Anxiety - Related to loss - Not on meds Metabolic Syndrome Obesity - BMI 51 - Early 1hr normal, 122; plan to repeat at 24w - Managed by Dr. Weeks at [facility] - Insulin resistance, most recent A1c 5.8 on 10/06/22 Asthma - Childhood/ Exercise induced - No hospitalizations or intubations - Rare inhaler use Infertility - Achieved with Clomid and dexamethasone on 2nd round IUP @ 18w5d - Dating by 7w0d US - Monitoring: FHT daily - Diet: General - BMZ deferred Discussed with Dr Dao, who agrees with plan. 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 I discussed the management with the resident physician. I reviewed and agree with the findings and plan as documented in the note. documented in this [place] [id number] Hospital Discharge instructions* Discharge Instructions* Shahnaz Hahn DO - 12/24/2022 9:29 PM EDT Follow up appointment with your doctor/poiser - Keep next scheduled appointment Activity - Normal Activity Call your doctor/poiser if you have: - leaking fluid - vaginal bleeding - regular contractions: More than 6 contractions in one hour - decreased movement - worsening abdominal (belly) pain - headache, blurry vision, increased swelling, upper abdominal pain If you are going home with contractions that are uncomfortable/painful- we recommend these coping strategies: rhythmic breathing, hydrotherapy, imagery or visualization, gentle massage, walking and changing your position. Treatment Verification: Ambika Brown was assessed on Labor and Delivery for a related visit on 12/24/22 . SHAHNAZ HAHN DO [facility] documented in this [place] [id number] History of Present illness Narrative* Shahnaz Hahn DO - 12/24/2022 8:55 PM EDT Department of Obstetrics and Gynecology Labor and Delivery Triage Note CHIEF COMPLAINT: Elevated BP HISTORY OF PRESENT ILLNESS: The patient is a 32 y.o. 18w3d. OB History 6 Para 0 Term AB 5 Living 0 SAB IAB Ectopic Multiple Live Births Patient presents with a chief complaint as above. Patient has known cHTN, having elevated BP's at home. Has had headaches intermittently, uses tylenol sometimes but does not like to use meds if possible. Otherwise no vision changes, RUQ pain or SOB. Denies VB/LOF/CTX Estimated Due Date: Estimated Date of Delivery: 05/24/23 PAST MEDICAL HISTORY: Past Medical History: Diagnosis Date Asthma GERD (gastroesophageal reflux disease) Infertility, female Joint pain b/l knees, b/l ankles Lupus anticoagulant affecting in second trimester, antepartum (HCC) Migraines Obesity Sinus tachycardia PAST SURGICAL HISTORY: Past Surgical History: Procedure Laterality Date CHOLECYSTECTOMY CVHX IMPLANTABLE LOOP RECORDER SYSTEM 08/23/2022 TONSILLECTOMY (HISTORICAL) WISDOM TOOTH EXTRACTION SOCIAL HISTORY: reports that she has never smoked. She has never used smokeless tobacco. She reports that she does not drink alcohol and does not use drugs. MEDICATIONS: Prior to Admission medications Medication Sig Start Date End Date Taking? Authorizing Provider labetalol (Normodyne) 100 MG tablet Take 100 mg by mouth in the morning and 100 mg in the evening. 12/05/22 12/24/22 Yes Historical Provider, aspirin 81 MG EC tablet Take 162 mg by mouth daily. Historical Provider, cholecalciferol (Vitamin D3) 200 Unit tablet split tablet Take by mouth. Historical Provider, enoxaparin (Lovenox) 40 MG/0.4ML solution prefilled syringe Inject 40 mg under the skin daily. Historical Provider, labetalol (Normodyne) 200 MG tablet Take 200 mg by mouth 2 times daily. Historical Provider, levothyroxine (Synthroid, Levoxyl) 50 MCG tablet Take 50 mcg by mouth every morning (before breakfast). Historical Provider, sodium chloride 0.9 % nebulizer solution with albuterol (5 MG/ML) 0.5% nebulizer solution 0.9 mg/mLInhale 2 puffs 4 times daily as needed. Historical Provider, CARE: Complicated by: cHTN, APLS, Obesity, Hypothyroidism REVIEW OF SYSTEMS: Pertinent items are noted in HPI. APPEARANCE: Pain: No PHYSICAL EXAM: Vital Signs: VS wnl-reviewed/Respirations normal effort Vitals: 12/24/22 1903 12/24/22 1904 BP: 139/68 Pulse: 87 Resp: 16 Temp: 36.7 C (98.1 F) 36.7 C (98 F) TempSrc: Oral Weight: (!) 150 kg (330 lb) Height: 1.715 m (5' 7.5) Abdomen: soft, NT, ND, no rebound/guarding Uterus: gravid/non-tender LE Edema: trace Speculum Exam: defer heart rate: 156 Cervix: defer Contraction frequency: none RESULTS: NST: N/A Procedures GENERAL LABS: Recent Results (from the past 24 hour(s)) CBC Collection Time: 12/24/22 8:01 PM Result Value Ref Range Auto WBC 12.3 (H) 3.6 - 10.7 10*3/uL RBC 4.34 3.8 - 5.20 10*6/uL Hemoglobin 11.4 (L) 11.7 - 16.0 g/dL Hematocrit 34.9 (L) 35.0 - 47.0 % MCV 80.5 80.0 - 98.0 fL MCH 26.3 26.0 - 34.0 pg MCHC 32.7 32.0 - 36.0 % RDW 15.9 (H) 11.5 - 14.5 % Platelets 187 140 - 440 10*3/uL MPV 9.7 7.4 - 12.4 fL Comprehensive metabolic panel Collection Time: 12/24/22 8:01 PM Result Value Ref Range SODIUM 135 135 - 145 mmol/L POTASSIUM 3.7 3.5 - 5.1 mmol/L CHLORIDE 107 98 - 107 mmol/L CARBON DIOXIDE 21 (L) 22 - 30 mmol/L ANION GAP 7 3 - 13 mmol/L UREA NITROGEN 6 (L) 7 - 17 mg/dL CREATININE 0.44 (L) 0.52 - 1.04 mg/dL GLUCOSE 83 70 - 100 mg/dL CALCIUM 9.2 8.4 - 10.4 mg/dL AST (SGOT) 26 15 - 46 U/L ALT 23 0 - 34 U/L ALKALINE PHOSPHATASE 92 38 - 126 U/L ALBUMIN 3.6 3.5 - 5.0 g/dL BILIRUBIN, TOTAL 0.3 0.2 - 1.3 mg/dL TOTAL PROTEIN 6.8 6.3 - 8.2 g/dL eGFR >90.0 >60.0 mL/min/1.73m*2 Protein, urine, random Collection Time: 12/24/22 8:01 PM Result Value Ref Range TOTAL PROTEIN, UR 16 (H) 0 - 12 mg/dL Creatinine, urine, random Collection Time: 12/24/22 8:01 PM Result Value Ref Range CREATININE, URINE 34.7 No Range mg/dL TRIAGE COURSE: BP normotensive here, patient bought BP off of [employer] due to gonzalez. PreE labs obtains and wnl. UPC 0.470, no baseline on file and confirmed with Dr. Neves. Patient received Excedrin for headache, very mild and did not want anything for it to begin with. Patient currently on Labetalol 200mg BID, BP readings reviewed with the patient and most likely BP cuff not calibrated. Will increase Labetalol to 200mg TID and has appt with [facility] this Sunday. Patient advised to bring BP cuff to the office to becalibrated. PreE precautions discussed with the patient and will send home with return precautions.TSH collected due to hypothyroidism and currently on synthroid. SHAHNAZ HAHN, 12/24/2022 9:11 PM IMPRESSION: cHTN Pain assessment and plan: None DISCUSSED WITH [facility] PROVIDER: Dr. Neves DISPOSITION: Discharge to Home Associated attestation - Jenelle Chandler MD - 12/24/2022 9:31 PM EDT Hospital Care (Independent): I independently saw and evaluated the patient. I agree with the findings and plan of care as documented in the resident's note. documented in this [place] [id number] Quiroga [facility] November 29, 2022 6:28pm Note Date/Time November 29, 2022 4:2 2pm [facility] Medical Records Department [address] [place] [address] Emergency Department Summary 11/29/22 MR#: [id number] Acct: [id number] Name: AMBIKA BROWN Rep #:[id number] : 1990 32 From: Dhiraj Quiroga MD PCP: Care Physician,No Primary Status :REG ER Location: ED HPI History of Present Illness Chief Complaint: Headache Detail of Chief Complaint: Headache with scintillating scotoma blurred peripheral vision and facial nu Informant: patient Onset/Context/Timing Onset: Yesterday Context: Gradual Timing: Continuous Quality -Headache: Positive for Similar Prior Headaches (Slightly worse than normal.), Throbbing and Tightness Location: Frontal and left side Current Severity: Severe Maximum Severity: Severe Worsened by: Light Relieved by: Nothing Associated Symptoms/Injury Associated Symptoms: Positive for Nausea, Visual Changes and Photophobia; Negative for Fever, Vomiting, Sore Throat, Sinus Pressure, Numbness, Tingling, Preceding Aura, Blurred Vision or Visual Loss Injury - LONG: Negative for Direct Trauma Narrative Narrative: Patient is a 32-year-old with 4 spontaneous miscarriages and 1 ectopic who was sent to the 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 She reports allergy to Compazine and Benadryl. The Benadryl causes her to have heart problems. She presently has a loop recorder in place. She denies fever, chills night sweats. She denies decreased hearing or ringing or ears. She denies rhinorrhea, congestion, postnasal drainage or sore throat. She denies problems with speech or swallowing. She denies neck pain or neck stiffness. She denies cardiac or respiratory symptoms. She does endorse nauseawithout vomiting or diarrhea. She does endorse frequency without dysuria, hematuria or flank pain. She denies vaginal bleeding. She states this has the father she has carried a fetus. She denies paresthesia, anesthesia or motor weakness upper or lower extremities. She denies problems with coordination or balance. Prior similar symptoms: Yes Recent Illness/Hospitalization: No PFSH PFS Medical History History of asthma History of lupus anticoagulant disorder Implantable loop recorder present Insulin resistance Migraines SVT (supraventricular tachycardia) Home Medications aspirin 81 mg chewable tablet 162 mg PO DAILY 07/04/21 [History Last Taken Unknown] enoxaparin 40 mg/0.4 mL subcutaneous syringe (Lovenox) 40 mg subcut DAILY 10/21/22 [History Last Taken Unknown] progesterone micronized 200 mg capsule 400 mg vaginal BID 10/21/22 [History Last Taken Unknown] Allergy/AdvReac Type Severity Reaction Status Date / Time prochlorperazine Allergy Other Verified 11/29/22 13:29 [From Compazine] Family History Mother Cancer Thyroid disorder Father Heart disease Surgical History History of cholecystectomy History of electrophysiologic study (02/13/22) History of tonsillectomy Social History household members: spouse Smoking Status: Never smoker alcohol intake: never substance use type: does not use caffeine: Yes Type: coffee Number of servings: 2 ROS ROS ED Constitutional Constitutional ED: Denies chills, fever(s), subjective, sweats or weight loss Eyes Eyes: Reports change in vision bilateral (Scintillating scotoma with blurred peripheral vision); Denies blurry vision or diplopia ENT ENT ED: Reports other Details: See HPI for further detail ; Denies ear pain, rhinorrhea or sore throat Cardiovascular Cardiovascular: Denies chest pain, palpitations or racing heartbeat Respiratory/Chest Respiratory/Chest: Denies cough, dyspnea or dyspnea on exertion Gastrointestinal Gastrointestinal: Reports nausea; Denies abdominal pain, diarrhea, melena or vomiting Genitourinary Genitourinary ED: Reports LMP (females 10-50) and urinary frequency; Denies dysuria or hematuria Musculoskeletal Musculoskeletal: Denies arthralgias, back pain, myalgias or neck pain Integumentary Denies abscess, Abrasions or rash Neurologic Neurologic: Reports headache(s), paresthesias and other Details: Paresthesia left side of the face ; Denies weakness Psychiatric Psychiatric: Reports anxiety and depression; Denies suicidal ideation Endocrine Endocrinology: Denies polydipsia, polyphagia or polyuria Hematologic/Lymphatic Hematologic/Lymphatic: Denies easy bleeding, easy bruising or lymphadenopathy EXAM Physical Exam Const Vital Signs: 11/29/22 13:29 11/29/22 14:04 11/29/22 16:00 Temperature 98 F Temperature Source Temporal Pulse Rate 105 H 88 Respiratory Rate 14 16 Blood Pressure 168/92 H Blood Pressure Mean 117 Pulse Ox 97 98 Oxygen Delivery Method Room Air Room Air Room Air Positive well nourished, well developed and obese General Appearance ED: well developed and NAD; Negative for cyanotic, diaphoretic or pallor Nutritional Appearance: obese HEENT Reports normocephalic, TM's clear and moist mucous membranes HEENT Narrative: TMs normal. No frontal, ethmoid or maxillary sinus tenderness. Posterior for access normal. atraumatic Tympanic Membrane ED: Yes TM's clear Eyes PERRL and EOMs intact bilaterally Eyes Narrative: There is no nystagmus. There is no APD. Cup-to-disc ratio was normal. There is no papilledema. Venous pulsations were noted bilaterally. General Eye ED: Negative for pale conjunctiva or scleral icterus Neck no lymphadenopathy, supple, no meningeal signs and no JVD Resp normal respiratory effort and clear to auscultation bilaterally Cardio regular rate, regular rhythm, S1 normal heart sound, S2 normal heart sound and no murmurs GI non-tender and non-distended Auscultation: normoactive bowel sounds Back/Spine no CVA tenderness Cervical Spine: Negative for cervical spine tenderness Thoracic Spine / Upper Back: Negative for thoracic spinal tenderness Lumbar Spine / Lower Back: Negative for lumbar spinal tenderness Extremity normal to inspection, full ROM and normal capillary refill General Extremety ED: Negative for edema, tenderness or other findings General Extremity: Negative for edema or other findings Neuro oriented x3, CN's II-XII intact bilaterally and no sensory deficits noted Milligan Coma Scale: document GCS findings Spontaneous Obeys Commands Oriented 15 Sensorium / Orientation: awake and alert Coordination / Balance: [id number] test normal Speech: speech normal Motor Exam: strength 5/5 throughout Psych Mood & Affect: depressed Skin General Skin Exam: elasticity normal and turgor normal; Negative for jaundice orpallor Lesions: no lesions MDM MDM MDM Narrative Medical decision making narrative: Patient presents with ocular migraine. Patient has history of ocular migraine. Case is complicated by the fact that she is second trimester. Patient also reports allergy to Compazine. She states she has allergy to Benadryl whichcauses her heart to race fast. Milligrams of Toradol IV push, 1 mg of Cogentin IV push and 10 mg of Reglan IV push. Since she has a nonfocal neurologic exam CT was not obtained especially since she has a history of ocular migraines as well as hemiplegic migraines. Patient in all likely has had intractable ocular migraine with status. Prior records were reviewed both ER and inpatient. Patient was admitted for syncope June 2021. Patient was noted to have nonsustained V. tach. She has had ER visits for headache, abdominal pain and palpitations. History & Record Review Discussion w/independent historian: Patient Additional record(s) reviewed:: Prior inpatient record, Prior outpatient record,Prior ED visit and Prior labs Lab Data Attestation: I reviewed the patient's lab results. Lab results narrative: Blood work is unremarkable. This was ordered per nurse protocol. Labs: Laboratory Results - last 24 hr 11/29/22 11/29/22 11/29/22 14:25 14:25 14:25 WBC Cancelled Corrected WBC Cancelled RBC Cancelled Hgb Cancelled Hct Cancelled MCV Cancelled MCH Cancelled MCHC Cancelled RDW Std Deviation Cancelled RDW Coeff of Remigio Cancelled Plt Count Cancelled MPV Cancelled Immature Gran % (Auto) Cancelled Neut % (Auto) Cancelled Lymph % (Auto) Cancelled Piute % (Auto) Cancelled Eos % (Auto) Cancelled Baso % (Auto) Cancelled Absolute Neuts (auto) Cancelled Absolute Lymphs (auto) Cancelled Total Counted Cancelled Neutrophils % (Manual) Cancelled Band Neutrophils % Cancelled Lymphocytes % (Manual) Cancelled Monocytes % (Manual) Cancelled Eosinophils % (Manual) Cancelled Basophils % (Manual) Cancelled Metamyelocytes % Cancelled Myelocytes % Cancelled Promyelocytes % Cancelled Blast Cells % Cancelled Plasma Cell % (Manual) Cancelled Other Cells % Cancelled Nucleated RBC % Cancelled Nucleated RBCs/100 WBC Cancelled Differential Comment Cancelled Diff Path Review Cancelled Hypersegmented Neuts Cancelled Atypical Lymphocytes Cancelled Reactive Lymphocytes Cancelled Smudge Cells Cancelled Toxic Granulation Cancelled Toxic Vacuolation Cancelled Dohle Bodies Cancelled Erick Rods Cancelled Platelet Estimate Cancelled Plt Morphology Comment Cancelled RBC Morphology Cancelled Polychromasia Cancelled Hypochromasia Cancelled Poikilocytosis Cancelled Basophilic Stippling Cancelled Anisocytosis Cancelled Microcytosis Cancelled Macrocytosis Cancelled Spherocytes Cancelled Sickle Cells Cancelled Target Cells Cancelled Tear Drop Cells Cancelled Ovalocytes Cancelled Stomatocytes Cancelled Pinedo-Weirton Bodies Cancelled Silva Cells Cancelled Bite Cells Cancelled Crenated Cell Cancelled Acanthocytes (Spur) Cancelled Rouleaux Cancelled Schistocytes Cancelled PT 13.4 INR 1.1 APTT 26.5 Sodium 140 Potassium 3.5 Chloride 108 H Carbon Dioxide 23.0 Anion Gap 9 BUN 9 Creatinine 0.60 Estim Creat Clear Calc 132.11 Est GFR (MDRD) Af Amer 150 Est GFR (MDRD) Non-Af 124 BUN/Creatinine Ratio 15.0 Glucose 97 Calcium 9.4 EKG Initial EKG: Attestation: I personally reviewed and interpreted this EKG as follows: Interpretation: Sinus Rhythm (EKG is normal. Ventricular rate is 87. ND interval is 174 ms. QS duration 80 ms. QT durations 180 ms. [place] is normal. EKG was obtained prior to administration of Reglan to evaluate for QT prolongation.) Treatment and Re-Evaluation Narrative: Patient was reassessed at 1820. She is smiling. Her significant other is with her. She was discharged to home. Discharge Plan Triage Chief Complaint: Headache ED Provider: Dhiraj Quiroga Dx/Rx/DC Orders Clinical Impression: Intractable ophthalmic migraine, Obstructive sleep apnea, HTN (hypertension), benign, Second trimester Instructions: Migraines and Cluster Headaches Prescriptions: No Action aspirin 81 mg tablet,chewable 162 mg PO DAILY progesterone micronized 200 mg capsule 400 mg vaginal BID Label Comments: PLACE 2 CAPSULES VAGINALLY TWICE DAILY ON WEEKS 7-36 enoxaparin [Lovenox] 40 mg/0.4 mL Syringe 40 mg SUBCUT DAILY Primary Care Provider: Care Physician,No Primary Referrals: Care Physician,No Primary [Primary Care Provider] - Doctor,Your [Non-Staff] - Disposition Disposition: Home, Self Care What to do if you have Problems For any increased pain, shortness of breath, bleeding, nausea or vomiting, chestpain, or any unexpected problems, contact your Primary Care Provider. Call [facility] ([phone]) or report to the closest Emergency Room. Call 911 if necessary. 11/29/221827 <Electronically signed by Dhiraj Quiroga MD> Cosigner Signature (if applicable): CC: No Primary Care Physician ~ Signed [facility] Work Phone: 1(126) 698-779701-03-2023 Instructions* Patient Instructions* Aarti Huertas PA-C - 09/12/2022 9:41 AM EST Stop taking gabapentin while . May start cyproheptadine 4 mg for migraine relief/prevention: take one by mouth at onset of migraine, may repeat in 8 hours if needed. May take every 8 hours, daily for prevention, if needed. Watch for WEIGHT GAIN and drowsiness. Do NOT take with Promethazine due to sedation. May use with ondansetron. 3. Hydrate regularly. documented in this [facility] History of Present illness Narrative* Aarti Huertas PA-C - 09/12/2022 9:15 AM EST Images from the original note were not included. 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 She had her last botox on 06/19/2022. She started undergoing fertility treatments several months ago, then took a break, restarted again August 10, 2022 and is now 5 weeks . We will hold botox until she is post and if she is not . On lovenox daily while due to Lupus anticoagulant disorder. Wanted to discuss options for managing migraines during . Headache 1 This is the current headache. Diagnosis: Chronic Migraine Headache (CM) Onset: - x 5 weeks and stopped botox 3 months ago. On Lovenox due to clotting disorder. Location: left, frontal, temporal, face and retro-orbital Quality/Description: sharp, pressure and squeezing Associated Symptoms: Photophobia: yes Phonophobia: yes Nausea: yes Vomiting: no Other symptoms: osmophobia Worse with activity: yes Number of migraine headache days/month: 8 Migraine headache severity: 5/10 Number of NON-migraine headache days/month: 0 Non-migraine headache severity: 0 Number of headache free days/month: 22 Duration of headaches with treatment: 24 hours Current preventive treatment: botox is now on hold due to Current abortive treatment: tylenol due to being on Lovenox Triggers: weather changes and stress release Onset of headache to peak: varies Positional changes: no Most common time of day for headache to begin: anytime Prodrome: none Aura: none Allodynia: no Days missed from work or school in the last month: 1 days Headache status since the last visit: better Preventative: none, having to hold botox due to Abortive: tylenol SH: Social History Tobacco Use Smoking status: Never Smokeless tobacco: Never Substance Use Topics Alcohol use: Never Drug use: Never Prior Therapies Duration of Use Dose Reason for Discontinuation Analgesic Ketorolac (Toradol) Anti-Convulsant Divalproex sodium (Depakote) Gabapentin (Neurontin) Levetiracetam (Keppra) Topiramate (Topamax, Trokendi XL, Qudexy) Zonisamide (Zonegram) Anti-Depressant and Antipsychotic Fluoxetine (Prozac) Antiemetics Ondansetron Prochlorperazine Promethazine Anti-Migraine Dihydroergotamine (DHE-45, Migranal) Blood Pressure Nadolol (Corgard) Botulinum Toxin Onabotulinum Toxin A (Botox) Sleep Aids Melatonin Supplements Magnesium Other Medications Dexamethasone (Decadron) Over the Counter Medications Acetaminophen (Tylenol) Aspirin Ibuprofen (Advil, Motrin) Naproxen sodium (Aleve) PAST MEDICAL HISTORY Diagnosis Date Asthma Fibromyalgia Hiatal hernia Insulin resistance Lupus anticoagulant disorder (HCC) Migraines Nonsustained ventricular tachycardia Obesity, Class III, BMI >= 40 07/15/2021 Palpitations Paroxysmal supraventricular tachycardia (HCC) Syncope PAST SURGICAL HISTORY Procedure Laterality Date CHOLECYSTECTOMY 2013 D&C, DIAG AND/OR THERAPEUTIC 2018 EP STUDY 02/13/2022 comprehensive EP study; normal study, no accessory pathways; +dual AV azra pathways but no inducible SVT; [facility] Dr. Rock ORAL SURGERY PROCEDURE 2009 wisdom teeth TONSILLECTOMY HX 2005 ALLERGIES Allergen Reactions Prochlorperazine Other: See Comments Compazine Issues and questions to be addressed: Medications ondansetron (ZOFRAN) 8 mg tablet^FOR NAUSEA. Take on at onset of nausea or migraine,may repeat dosein 8 hours if needed.^Disp: 30 tablet^Rfl: 4 omeprazole (PRILOSEC) 40 mg capsule^Take 40 mg by mouth once daily. ^Disp: ^Rfl: metoprolol tartrate, short acting, (LOPRESSOR) 50 mg tablet^Take 50 mg by mouth twice daily. ^Disp: ^Rfl: famotidine (PEPCID) 40 mg tablet^Take 40 mg by mouth once daily. ^Disp: ^Rfl: metFORMIN ER (GLUCOPHAGE XR) 500 mg 24 hr tablet^Take 1,000 mg by mouth twice daily.^Disp: ^Rfl: aspirin, enteric coated (ASPIRIN, ENTERIC COATED) 81 mg EC tablet^Take 162 mg by mouth daily at bedtime. ^Disp: ^Rfl: promethazine (PHENERGAN) 25 mg tablet^1/2 to 1 po q8h prn headache or nausea^Disp: 45 tablet^Rfl: 11 cholecalciferol, vitamin D3, (VITAMIN D3 ORAL)^Take by mouth.^Disp: ^Rfl: folic acid 400 mcg tablet^Take 400 mcg by mouth daily at bedtime. ^Disp: ^Rfl: PNV/FERROUS SULFATE/FOLIC ACID ( MULTIVIT WITH IRON ORAL)^Take by mouth daily at bedtime. ^Disp: ^Rfl: Ascorbic Acid chew^Take 500 mg by mouth daily at bedtime. ^Disp: ^Rfl: albuterol HFA (PROVENTIL HFA, VENTOLIN HFA) 90 mcg/actuation inhaler^Inhale 2 Puffs as instructed every 4 hours as needed for Wheezing/Shortness of Breath.^Disp: ^Rfl: enoxaparin (LOVENOX) 30 mg/0.3 mL injection^Inject 1.502 mL subcutaneously once daily.^Disp: ^Rfl: cyproheptadine (PERIACTIN) 4 mg tablet^May take one by mouth every 8 hours as needed.^Disp: 30 tablet^Rfl: 3 I have reviewed the Health Status Assessment responses and discussed these with the patient: no, patient did not complete Aarti Huertas PA-C HEADACHE SCORES: Headache Questions 11/08/2021 02/27/2022 06/19/2022 ER visits since last office visit: 2 1 2 Hospital stays since last office visit 0 0 0 Limited ADLs in the last month: 3 2 3 Days missed from work or school in the last month: 1 0 1 Days headache pain free in the last month: 10 12 10 Days per month with ALL of the following symptoms - decreased productivity, light sensitivity and nausea: 9 10 6 Initial improvement of headache after botox injection at last visit: Much improved Much improved - PRN medication usage in the last month: 8 7 4 Patient impression of improvement since last visit: Much worse No change Minimally improved HIT-6 11/08/2021 02/27/2022 06/19/2022 HIT-6 - - - HIT-6 62 (Severe impact) 64 (Severe impact) 65 (Severe impact) MARCIA - 2/7 SCORES 11/08/2021 02/27/2022 06/19/2022 MARCIA-2 Score 1 1 3 MARCIA-7 Score - - 11 Migraine Specific QOL - Higher scores indicate better HRQL 07/19/2020 02/27/2022 06/19/2022 Role Function-Restrictive Transformed Score (range: 0-100) 60 60 57.14 Role Function-Preventive Transformed Score (range: 0-100) 100 80 70 Emotional Function Transformed Score (range: 0-100) 73.33 66.67 60 PHQ-9 11/08/2021 02/27/2022 06/19/2022 Score 5 9 4 Studies to Review: no New Health Issues: Yes, 5 weeks New Social History: No New Family History: No Review of Systems: Review of system : unchanged from the previous visit (sleep patterns, mood, energy, appetite, stress, exercising). No emesis, + nausea Sleep: variable Mood: normal and anxious Energy: Normal - stable Appetite: decreased, + nausea from Weight stable, but has lost 25 inches, been building muscle Stress: Normal Sexual Dysfunction: No Exercising: Yes at a gym Physical Examination: VS: BP 149/85 (BP Site: Left Arm, BP Position: Sitting, BP Cuff Size: Small Adult) Pulse 88 Ht 171.5 cm (5' 7.5) Wt (!) 150.2 kg (331 lb 1.6 oz) LMP 09/27/2020 SpO2 96% BMI 51.09 kg/m General: well appearing, in no acute distress, well-hydrated, well nourished, alert, obese, rubbingaffected body part, solicited verbal complaints, and unsolicited verbal complaints HEENT: Normocephalic/atraumatic., No lymphadenopathy., No carotid bruits ascultated. Skin: Color, texture, turgor normal. No rashes or lesions Lungs: normal breath sounds bilaterally CV: RRR, normal S1, S2 auscultated, no murmurs, and no JVD Musculoskeletal: No gross joint deformities. , Tenderness to palpation of temporalis muscles: No, Tenderness to palpation of cervical spine and upper trapezius: No., Suboccipital tenderness: No. , Muscle spasms: No . , Trigger Points: none , Cervical ROM: Normal. , Resting neck position: Normal. Neurological: Normal mental status. Cranial nerves II-XII intact. Normal tone and strength. Normal coordination. DTRs are intact and symmetric bilaterally. Normal gait. IMPRESSION: Ambika Brown is a 32 year old year old female, with a history of asthma, FM, hiatal hernia, Lupus Anticoagulant disorder, PSVT, obesity, syncope and chronic migraines, recently ( 5 weeks). She was placed on Lovenox during her due to her Lupus anticoagulant disorder. She will needto stop botox during /. Her neurological examination is essentially normal atthis visit. ICHD-3 Diagnosis: Chronic Migraine Headache (CM) PLAN: Discontinue botox until / completed Consider 3 days of IV infusions if status migrainosus. Consider Lidocaine JOSUÉ blocks if status migrainosus. Start cyproheptadine 4 mg ; may take one at onset of migraine, may take one up to three times a day: concern for drowsiness and weight gain. Not to mix with promethazine. May continue ondansetron and magnesium HEADACHE MANAGEMENT: (You are the primary guardian of your health and headache. Keep track of all medications: This includes the reason for use, side effects and benefits.) MEDICATION TREATMENT: Medications to Start Taking enoxaparin (LOVENOX) 30 mg/0.3 mL injection Inject 1.502 mL subcutaneously once daily. cyproheptadine (PERIACTIN) 4 mg tablet May take one by mouth every 8 hours as needed. Discussed use of headache diary. Discussed treatment options, both abortive and preventive medications. Instructed patient about medications. Headache education was done. Discussed lifestyle modification including increased oral hydration, decreased caffeine, exercise and stress management. Discussed treatment options including preventive and acute medications, natural supplements, and infusion therapy. Discussed medication overuse headache and to limit use of acute treatments to no more than 2 days/week or 10 days/month. Discussed medication side effects, adverse reactions and drug interactions. Written educational materials and patient instructions outlining all of the above were given. RESEARCH: None at this time Follow-up: PRN Level of service: Est level 5 (40-54 min). Time spent 45 min on the day of service, which included preparing to see the patient, [id number] patient care, completing clinical documentation, obtaining and/or reviewing separately obtained history, performing a medically appropriate examination, counseling and educating the patient/family/caregiver, ordering medications, tests, or procedures, and communicating with other HCPs (not separately reported). Medical Decision Making: Medical Decision Making Level: 1 - N/A Aarti Huertas PA-C documented in this encounterChildren[facility]22 Instructions* Patient Instructions* Tamiko Castañeda APRN.CNP - 06/19/2022 1:44 PM EDT Instruction after Botox injection: - If you have any pain or swelling use ice, 20 min on and 20 min off. Do not rub or massage the area for 24 hrs. - If you have any neck stiffness, you may use heat and do stretching exercises. - This should improve over the next 5 days. - If it does not, call our office at [phone] for further instructions. documented in this encounterChildren[facility]10-[facility]-2022 History of Present illness Narrative* Tamiko Castañeda APRN.CNP - 06/19/2022 1:00 PM EDT Follow-Up Onabotulinum Toxin A (BotoxTM) for Migraine Indication: Chronic Intractable Migraine Treatment #: 14 Referral Expiration: 10/26/2022 Prior to the initiation of the FIRST treatment with Onabotulinum Toxin A, the patient reported the following average headache frequency over the past 3 MONTHS: Number of moderate-severe migraine days/month: 20 Number of mild migraine days/month: 10 Number of headache free days/month: 0 (0 headache-free hours) Migraine severity: 04/19 After treatment with Onabotulinum Toxin A: Number of moderate-severe migraine days/month: 5 Number of mild migraine days/month: 8 Number of headache free days/month: 17 (408 headache-free hours) Migraine severity: 01/17 Patient reduction in overall migraine days: Yes Patient reduction in moderate-severe migraine days: Yes Patient reduction of headache hours by 100 hours or more: Yes (reduction of 408 hours) Individual has obtained clinical benefit deemed significant by individual or prescriber (Y/N): Yes Patient's quality of life and ability to perform ADLs has improved (Y/N): Yes Side effects: none Wearing off: Yes - 10 weeks after treatment Denies . No fever, rashes, or body aches. Answers submitted by the patient for this visit: Headache Questionnaire (Submitted on 06/19/2022) How many days of work or school have you missed due to headaches in the last month? : 1 HEADACHE SCORES: Headache Questions 11/08/2021 02/27/2022 06/19/2022 ER visits since last office visit: 2 1 2 Hospital stays since last office visit 0 0 0 Limited ADLs in the last month: 3 2 3 Days missed from work or school in the last month: 1 0 1 Days headache pain free in the last month: 10 12 10 Days per month with ALL of the following symptoms - decreased productivity, light sensitivity and nausea: 9 10 6 Initial improvement of headache after botox injection at last visit: Much improved Much improved - PRN medication usage in the last month: 8 7 4 Patient impression of improvement since last visit: Much worse No change Minimally improved HIT-6 11/08/2021 02/27/2022 06/19/2022 HIT-6 - - - HIT-6 62 (Severe impact) 64 (Severe impact) 65 (Severe impact) MARCIA - 2/7 SCORES 11/08/2021 02/27/2022 06/19/2022 MARCIA-2 Score 1 1 3 MARCIA-7 Score - - 11 Migraine Specific QOL - Higher scores indicate better HRQL 07/19/2020 02/27/2022 06/19/2022 Role Function-Restrictive Transformed Score (range: 0-100) 60 60 57.14 Role Function-Preventive Transformed Score (range: 0-100) 100 80 70 Emotional Function Transformed Score (range: 0-100) 73.33 66.67 60 PHQ-9 11/08/2021 02/27/2022 06/19/2022 Score 5 9 4 BP 136/94 (BP Site: Left Arm, BP Position: Sitting, BP Cuff Size: Small Adult) Pulse 77 Ht 171.5 cm (5' 7.5) Wt (!) 148.6 kg (327 lb 8 oz) LMP 09/27/2020 SpO2 98% BMI 50.54 kg/m Patient name: Ambika Brown : 1990 ALLERGIES Allergen Reactions Prochlorperazine Other: See Comments Compazine UNIVERSAL PROTOCOL / SAFETY CHECKLIST Procedure: Onabotulinum toxin A for migraine Informed Consent Consent Obtained: Written [place] Protocol A moment to CARE was completed SIGN IN Personnel directly involved with the procedure wore the appropriate PPE Special Equipment: N/A Patient/Surrogate Stated/Verified: Patient name, Date of , Relevant allergies and Intended procedure TIME OUT Intended patient and procedure match the source document(s) Consent documented and matches the intended procedure No relevant labs, photos, and/or imaging studies were applicable for review. No correct side/site applicable for marking and visibility. No medications required for procedure. No fire risk assessment and interventions applicable. No implant(s) inserted. SIGN OUT No specimen collected. No instruments, equipment or retained foreign bodies applicable. Post-procedure follow-up management communicated and Plan of Care Visit completed when applicable Written Consent Obtained: Written LOT #: [id number] Expiration Date: Month: 3 Year: 2024 Injection Sites Left (Units) Left (Sites) Right (Units) Right (Sites) TOTAL (Units) Insulation Cupola Operator 5 1 5 1 10 Procerus Units: 5 Sites: 1 5 Frontalis 10 2 10 2 20 Temporalis 20 4 20 4 40 Occipitalis 15 3 15 3 30 Cervical PSP 10 2 10 2 20 Trapezius 15 3 15 3 30 Total Units used: 155 Total Units wasted: 45 Prior Therapies Duration of Use Dose Side effect Analgesic Ketorolac (Toradol) Anti-Convulsant Divalproex sodium (Depakote) Gabapentin (Neurontin) Levetiracetam (Keppra) Topiramate (Topamax, Trokendi XL, Qudexy) Zonisamide (Zonegram) Anti-Depressant and Antipsychotic Fluoxetine (Prozac) Antiemetics Ondansetron Prochlorperazine Promethazine Anti-Migraine Dihydroergotamine (DHE-45, Migranal) Blood Pressure Nadolol (Corgard) Botulinum Toxin Onabotulinum Toxin A (Botox) Sleep Aids Melatonin Supplements Magnesium Other Medications Dexamethasone (Decadron) Over the Counter Medications Acetaminophen (Tylenol) Aspirin Ibuprofen (Advil, Motrin) Naproxen sodium (Aleve) Tamiko Castañeda APRN.CNP TEACHING NOTE OF PERSONAL INVOLVEMENT IN CARE: Patient was seen with Tamiko Castañeda APRN.CNP who is in training at this time. Hailey Marlow PA-C June 19, 2022 1:48 PM documented in this encounterChildren[facility]29-[facility] Note Discharge Instructions Thank you for allowing [facility] to assist you with your healthcare needs. The following is importantdischarge information regarding your hospital visit. Diagnosis from Today's Visit Headache What to Do Next Instructions from Your Care Team -Follow-up with your primary care this week -Schedule a follow-[facility] with your neurologist at [facility] No qualifying data available. Post Acute Orders No qualifying data available. You Need to Schedule the Following Appointments Follow Up with MEGA WEEKS MD, Internal Medicine When Within 2-4 days Where: [address] [place] [address]- [phone] Allergies Compazine (anxiety) Medications Please ask your primary doctor or pharmacist before taking any other medication not listed, including over the counter drugs, herbal medications, vitamins and or supplements as they may interact withyour home medications. What How Much When Instructions Last Dose Unchanged acetaminophen (Tylenol 325 mg oral tablet) 2 tab(s) by mouth Every 4 hours as needed for Temperature greater than 38.5 degrees C Unchanged acetaminophen-HYDROcodone (Blair 325- 5 mg oral tablet) 1 tab(s) by mouth Every 6 hours as needed for as needed for pain Unchanged aspirin (aspirin 81 mg oral tablet, chewable) 1 tab(s) Chewed Once a day Duration: 30 Days Unchanged ergocalciferol (ergocalciferol 50,000 intl units (1.25 mg) oral capsule) by mouth Every week Unchanged levothyroxine (Synthroid) Unknown Strength (NEEDS CLARIFIED) by mouth Unchanged metFORMIN (metFORMIN 500 mg oral tablet (IR)) 1 tab(s) by mouth Once a day Please take this list to your next doctor s visit. Bring all medications you take, including over the counter medications, herbals and other supplements with you to your doctor s visit. Patients and families are reminded to discard old lists and to update any records with all medication providers or retail pharmacies. Education Materials Migraine Headache This often severe type of headache is different from other types of headaches in that symptoms other than pain occur with the headache. Nausea and vomiting, lightheadedness, sensitivity to light (photophobia), and other visual disturbances are common migraine symptoms. The pain may last from a few hours to several days. It is not clear why migraines occur but certain factors called triggers can raise the risk of having a migraine attack. A migraine may be triggered by emotional stress or depression, or by hormone changes during the menstrual cycle. Other triggers include control pills, overuse of migraine medicines, alcohol or caffeine, foods with tyramine (such as aged cheese and wine), eyestrain, weather changes, missed meals, or too little or too much sleep. Home care Follow these tips when taking care of yourself at home: Don t drive yourself home if you were given pain medicine for your headache or are having visual symptoms. Instead, have someone else drive you home. Try to sleep when you get home. You should feel much better when you wake up. Cold can help ease migraine symptoms. Put an ice pack on your forehead or at the base of your skull. Put heat on the back of your neck to help ease any neck spasm. Drink only clear liquids or eat a light diet until your symptoms get better. This will help you avoid nausea and vomiting. How to prevent migraines Pay attention to what seems to trigger your headache. Try to avoid the triggers when you can. If you have frequent headaches, consider keeping a headache diary. In it, write down what you were doing,feeling, or eating in the hours before each headache. Show this to your healthcare provider to helpfind the cause of your headaches. If stress seems to be a trigger for your headaches, figure out what is causing stress in your life.Learn new ways to handle your stress. Ideas include regular exercise, biofeedback, self-hypnosis, yoga, and meditation. Talk with your healthcare provider to find out more information about managing stress. Many books and digital media are also available on this subject. Tyramine is a substance found in many foods. It can trigger a migraine in some people. These foods contain tyramine: Chocolate Yogurt All cheeses, but especially aged cheeses Smoked or pickled fish and meat, including cleary, caviar, bologna, pepperoni, and salami Liver Avocados Bananas Figs Raisins Red wine Try staying away from these foods for 1 to 2 months to see if you have fewer headaches. How to treat future headaches Take time out at the first sign of a headache, if possible. Find a quiet, dark, comfortable place to sit or lie down. Let yourself relax or sleep. Put an ice pack on your forehead or on the area of greatest pain. A heating pad and massage may help if you are having a muscle spasm and tightness in your neck. If you have been prescribed a medicine to stop a migraine headache, use this at the first warning sign of the headache for best results. First signs may be an aura or pain. If you need to take medicine often for your migraine, talk with your healthcare provider about other ways to prevent your headaches. Follow-up care Follow up with your healthcare provider, or as advised. Talk with your provider if you have frequent headaches. He or she can figure out a treatment plan. Ask if you can have medicine to take at homethe next time you get a bad headache. This may keep you from having to visit the emergency department in the future. You may need to see a headache specialist (neurologist) if you continue to have headaches. When to seek medical advice Call your healthcare provider right away if any of these occur: Your head pain gets worse, or doesn t get better within 24 hours You can t keep liquids down (repeated vomiting) Pain in your sinuses, ears, or throat Fever of 100.4 F (38 C) or higher, or as directed by your healthcare provider Stiff neck Extreme drowsiness, confusion, or fainting Dizziness, or dizziness with spinning sensation (vertigo) Weakness in an arm or leg, or on one side of your face Difficulty talking or seeing [id number] [employer]. [address] [place] [address], [place] [address]. All rights reserved. This information is not intended as a substitute for professional medical care. Always follow yourhealthcare professional's instructions. Additional Information VACCINATE! IT SAVES LIVES! Members of the community who have not yet received the COVID-19 vaccine and would like to receive it can visit one of [facility] vaccine clinics. There are many vaccine clinic locations within the [facility]. For locations and available times, please visit [email or web address]. It is important to note that some COVID mobile vaccine clinics are held outdoors and may be canceled in rainy orstormy conditions. To learn more about pediatric vaccinations (ages 5-11), we invite you to visit the [facility] webpage. [email or web address] learn more about the COVID-19 vaccine, we invite you to visit the [facility] website for a list of frequently asked questions. [email or web address] [facility] Patient Portal Access Instructions: Stay connected with your healthcare team and access your personal medical information anytime with the [facility] Patient Portal. If you would like a full copy of your medical records please contact the [facility] Medical Records Department Sunday through Sunday between 8a.m. and 4:30p.m. Please follow the directions below to access the portal: 1.Access the email account you provided upon registration to the hospital.2.Look for an invitation email from [facility].3.Open the email and access the invitation link: Accept Invitation to [facility]4.Fill in the required anderson to create your account. Sign into www.[employer] with your username and password that you created in the above steps to stay up to date. You can then view a summary of results, a summary of your visits, and the ability to download your summaries to your computer or send the information securely to a physician. Remember that your healthcare information is confidential, so carefully consider who you will allow to register on the [facility] Portal for access to your information. You can also access the [facility] Patient Portal on the [employer] gene. Simply click on Health Records under [facility] and then click on the [employer] logo. HOW TO SAFELY DISPOSE OF PRESCRIPTION MEDICATIONS Please use one of the following methods to safely dispose of your unused medications. 1.Use a drug disposal kit: the drug disposal pouch allows you to safely discard your old and unuseddrugs. Ask your nurse to give you one when you are discharged.2.Visit a local take-back location: Many local pharmacies and police departments have programs that collect old and unwanted prescriptiondrugs. Call your local pharmacy or go to http://[employer]Genprex/9R3Gl2s to find one close to you.3.Make use of household items: Use cat litter or old coffee grounds to dispose medications if other options arenot available. Mix your drugs with these household products, seal them in an airtight container andthrow it into the garbage. Call [facility]: [phone] to be sure your drugs can be disposed of in this way. Some medicines may require a different approach.4.Never flush your medications down the toilet. IF YOU HAVE BEEN PRESCRIBED AN OPIOIDS FOR PAIN If you have been prescribed an opioid (such as hydrocodone, oxycodone or morphine), it is critical to understand the possible side effects and risks of opioid pain medications. Even when taken as directed, opioids can have several side effects including: Tolerance, meaning you might need to take more of a medication for the same pain relief. Nausea, vomiting and/or constipation. Sleepiness, dizziness, dry mouth, confusion, depression or itching. Physical dependence, meaning you have withdrawal symptoms when a medication is stopped ? this can develop within a few days. KNOW YOUR RESPONSIBILITIES It is important to know exactly how much and how often to take the opioid pain medications you are prescribed. Never take opioids in higher amounts or more often than prescribed. Do not combine opioids with alcohol or other drugs that cause drowsiness, such as benzodiazepines, also known as benzos,including diazepam and alprazolam, muscle relaxants or sleep aids. Never sell or share prescriptionopioids. This is illegal. Store opioids in a secure place and out of reach of others (including children, family, friends and visitors). The last page(s) of this document has been signed and retained as a CHART COPY Signatures Patient Education Materials Headache, Migraine, Classic Medication Leaflets My discharge plan and instructions have been reviewed and explained to me and I,STEPHANIE, AMBIKA understand my current condition and have read and understand these discharge instructions. I have received a written copy of the plan/instructions. If I have questions, I am aware that I should contact my d octor. Patient/Childrens Club Attendant Signature: Date/Time: Relationship to Patient: Witness Name/Signature: Date/Time: [facility]08-29-2022 Hospital Discharge instructions Patient Education 05/08/2022 13:03:56 Headache, Migraine, Classic Migraine Headache This often severe type of headache is different from other types of headaches in that symptoms other than pain occur with the headache. Nausea and vomiting, lightheadedness, sensitivity to light (photophobia), and other visual disturbances are common migraine symptoms. The pain may last from a few hours to several days. It is not clear why migraines occur but certain factors called triggers can raise the risk of having a migraine attack. A migraine may be triggered by emotional stress or depression, or by hormone changes during the menstrual cycle. Other triggers include control pills, overuse of migraine medicines, alcohol or caffeine, foods with tyramine (such as aged cheese and wine), eyestrain, weather changes, missed meals, or too little or too much sleep. Home care Follow these tips when taking care of yourself at home: Don t drive yourself home if you were given pain medicine for your headache or are having visual symptoms. Instead, have someone else drive you home. Try to sleep when you get home. You should feel much better when you wake up. Cold can help ease migraine symptoms. Put an ice pack on your forehead or at the base of your skull. Put heat on the back of your neck to help ease any neck spasm. Drink only clear liquids or eat a light diet until your symptoms get better. This will help you avoid nausea and vomiting. How to prevent migraines Pay attention to what seems to trigger your headache. Try to avoid the triggers when you can. If you have frequent headaches, consider keeping a headache diary. In it, write down what you were doing,feeling, or eating in the hours before each headache. Show this to your healthcare provider to helpfind the cause of your headaches. If stress seems to be a trigger for your headaches, figure out what is causing stress in your life.Learn new ways to handle your stress. Ideas include regular exercise, biofeedback, self-hypnosis, yoga, and meditation. Talk with your healthcare provider to find out more information about managing stress. Many books and digital media are also available on this subject. Tyramine is a substance found in many foods. It can trigger a migraine in some people. These foods contain tyramine: Chocolate Yogurt All cheeses, but especially aged cheeses Smoked or pickled fish and meat, including cleary, caviar, bologna, pepperoni, and salami Liver Avocados Bananas Figs Raisins Red wine Try staying away from these foods for 1 to 2 months to see if you have fewer headaches. How to treat future headaches Take time out at the first sign of a headache, if possible. Find a quiet, dark, comfortable place to sit or lie down. Let yourself relax or sleep. Put an ice pack on your forehead or on the area of greatest pain. A heating pad and massage may help if you are having a muscle spasm and tightness in your neck. If you have been prescribed a medicine to stop a migraine headache, use this at the first warning sign of the headache for best results. First signs may be an aura or pain. If you need to take medicine often for your migraine, talk with your healthcare provider about other ways to prevent your headaches. Follow-up care Follow up with your healthcare provider, or as advised. Talk with your provider if you have frequent headaches. He or she can figure out a treatment plan. Ask if you can have medicine to take at homethe next time you get a bad headache. This may keep you from having to visit the emergency department in the future. You may need to see a headache specialist (neurologist) if you continue to have headaches. When to seek medical advice Call your healthcare provider right away if any of these occur: Your head pain gets worse, or doesn t get better within 24 hours You can t keep liquids down (repeated vomiting) Pain in your sinuses, ears, or throat Fever of 100.4 F (38 C) or higher, or as directed by your healthcare provider Stiff neck Extreme drowsiness, confusion, or fainting Dizziness, or dizziness with spinning sensation (vertigo) Weakness in an arm or leg, or on one side of your face Difficulty talking or seeing [id number] [employer] [place] [address]. All rights reserved. This information is not intended as a substitute for professional medical care. Always follow yourhealthcare professional's instructions. Follow Up Care 05/08/2022 12:09:23 With:MEGA WEEKS MD, Internal Medicine Address: [address] [place] [phone] When:2-4 days [facility] 08-29-2022 Note ORIGINAL EXAMINATION: CT HEAD TECHNIQUE: Axial CT images from skull base to vertex without IV contrast. This exam was performed according to our departmental dose optimization program, and includes the following measures where applicable: automated exposure control, adjustment of the mAs and/or kVp according to patient size and/or exam, and an iterative reconstruction algorithm. COMPARISON: CT head 05/18/2017 HISTORY: ORDERING SYSTEM PROVIDED HISTORY: Reason for Exam: HEADACHE AND DIZZINESS FINDINGS: Parenchyma: No acute intracranial hemorrhage, midline shift, mass effect or acute ischemic infarct is demonstrated. The britt-white matter junctions are preserved. No space occupying intra-axial masses or extra-axial fluid collections are seen. Ventricles: No evidence of hydrocephalus or ventricular effacement. Vessels: No atherosclerotic calcifications. Orbits: Unremarkable. Calvarium: Unremarkable. Paranasal sinuses: Clear. Mastoid sinuses: Clear. IMPRESSION: Unremarkable examination. Interpreted by: Nitin Bailey MD Preliminary Report By: Nitin Bailey MD Electronically signed By Nitin Bailey MD Dictated Date: 05/08/2022 2:35:51 PM Prelim Date: 05/08/2022 2:37:50 PM Sign Date: 05/08/2022 2:37:50 PM Ordering Provider: CURT [facility]08-29-2022 Note ORIGINAL EXAMINATION: CT HEAD TECHNIQUE: Axial CT images from skull base to vertex without IV contrast. This exam was performed according to our departmental dose optimization program, and includes the following measures where applicable: automated exposure control, adjustment of the mAs and/or kVp according to patient size and/or exam, and an iterative reconstruction algorithm. COMPARISON: CT head 05/18/2017 HISTORY: ORDERING SYSTEM PROVIDED HISTORY: Reason for Exam: HEADACHE AND DIZZINESS FINDINGS: Parenchyma: No acute intracranial hemorrhage, midline shift, mass effect or acute ischemic infarct is demonstrated. The britt-white matter junctions are preserved. No space occupying intra-axial masses or extra-axial fluid collections are seen. Ventricles: No evidence of hydrocephalus or ventricular effacement. Vessels: No atherosclerotic calcifications. Orbits: Unremarkable. Calvarium: Unremarkable. Paranasal sinuses: Clear. Mastoid sinuses: Clear. IMPRESSION: Unremarkable examination. Interpreted by: Nitin Bailey MD Preliminary Report By: Nitin Bailey MD Electronically signed By Nitin Bailey MD Dictated Date: 05/08/2022 2:35:51 PM Prelim Date: 05/08/2022 2:37:50 PM Sign Date: 05/08/2022 2:37:50 PM Ordering Provider: CURT [facility]08-22-2022 Evaluation + Plan note Diagnostic Tests Pending * Rubella Antibody 05/01/22 * Testosterone, Free and Total 05/01/22 [facility] 06-22-2022 History of Present illness Narrative* Aarti Huertas PA-C - 03/01/2022 7:38 AM EDT Images from the original note were not included. MD Aarti Enriquez PA-C Hi, there are not any issues with QT prolongation for Ms. Ambika Brown. So ondansetron should be ok. Thank you Nitin Rock MD February 28, 2022 5:19 PM Ambika Brown is struggling with nausea from her migraines and compazine and promethazine are too sedating. She is also seeing a promotions producer for heart arrhthymias. I reached out to Dr. Rock ( promotions producer) to make sure that ondansetron would be safe and he gave his recommendation that it would be. I will send a prescription for ondansetron to patient's local pharmacy. The following approved medication requests have been transmitted electronically. Signed Prescriptions Disp Refills ondansetron (ZOFRAN) 8 mg tablet 30 tablet 4 Sig: FOR NAUSEA. Take on at onset of nausea or migraine,may repeat dose in 8 hours if needed. Aarti Huertas PA-C March 01, 2022 7:41 AM documented in [facility]Children[facility] History of Present illness Narrative* Aarti Huertas PA-C - 02/28/2022 12:14 PM EDT Answers for HPI/ROS submitted by the patient on 02/27/2022 How many days of work or school have you missed due to headaches in the last month? : 0 In the last month, how many headache days did you experience ALL of the following symptoms: decreased productivity, light sensitivity and nausea?: 10 How many days have you been completely free of headache pain in the last month? : 12 documented in this encounterChildren'[facility]06-[facility]-2022 Instructions* Patient Instructions* Aarti Huertas PA-C - 02/28/2022 12:04 PM EDT Botox Home Instruction: Instruction after botox injection: - If you have any pain or swelling use ice, 20 min on and 20 min off. Do not rub or massage the area for 48 hrs. - If you have any neck stiffness, you may use heat and do stretching exercises. - This should improve over the next 5 days. - If it does not, call our office at [phone] for further instructions. I will send a staff message to Dr. Nitin Rock, to get his recommendation on zofran use for you. documented in this encounterChildren'S [facility]06-21-2022 Procedure note* Aarti Huertas PA-C - 02/28/2022 11:49 AM EDT Follow-Up Onabotulinum Toxin A (BotoxTM) for Migraine Indication: Chronic Intractable Migraine Treatment #: 13 Referral Expiration: 10/26/2022 Prior to the initiation of the FIRST treatment with Onabotulinum Toxin A, the patient reported the following average headache frequency over the past 3 MONTHS: Number of moderate-severe migraine days/month: 20 Number of mild migraine days/month: 10 Number of headache free days/month: 0 (0 headache-free hours) Migraine severity: 810 After treatment with Onabotulinum Toxin A: Number of moderate-severe migraine days/month: 5 Number of mild migraine days/month: 8 Number of headache free days/month: 17 (408 headache-free hours) Migraine severity: 10 Patient reduction in overall migraine days: Yes Patient reduction in moderate-severe migraine days: Yes Patient reduction of headache hours by 100 hours or more: Yes (reduction of 408 hours) Individual has obtained clinical benefit deemed significant by individual or prescriber (Y/N): Yes Patient's quality of life and ability to perform ADLs has improved (Y/N): Yes Side effects: none Wearing off: Yes - 10 weeks after treatment HEADACHE SCORES: Headache Questions 04/25/2021 11/08/2021 02/27/2022 ER visits since last office visit: 0 2 1 Hospital stays since last office visit 0 0 0 Limited ADLs in the last month: 2 3 2 Days missed from work or school in the last month: 0 1 0 Days headache pain free in the last month: 10 10 12 Days per month with ALL of the following symptoms - decreased productivity, light sensitivity and nausea: 10 9 10 Initial improvement of headache after botox injection at last visit: Much improved Much improved Much improved PRN medication usage in the last month: 7 8 7 Patient impression of improvement since last visit: Much improved Much worse No change HIT-6 04/25/2021 11/08/2021 02/27/2022 HIT-6 - - - HIT-6 62 (Severe impact) 62 (Severe impact) 64 (Severe impact) MARCIA - 2/7 SCORES 04/25/2021 11/08/2021 02/27/2022 MARCIA-2 Score 1 1 1 MARCIA-7 Score - - - Migraine Specific QOL - Higher scores indicate better HRQL 04/12/2020 07/19/2020 02/27/2022 Role Function-Restrictive Transformed Score (range: 0-100) 74.28 60 60 Role Function-Preventive Transformed Score (range: 0-100) 100 100 80 Emotional Function Transformed Score (range: 0-100) 93.33 73.33 66.67 PHQ-9 04/25/2021 11/08/2021 02/27/2022 Score 4 5 9 BP 137/89 (BP Site: Right Arm, BP Position: Sitting, BP Cuff Size: Small Adult) Pulse 93 Ht 171.5 cm (5' 7.5) Wt (!) 150.4 kg (331 lb 8 oz) LMP 09/27/2020 BMI 51.15 kg/m Patient name: Ambika Brown : 1990 ALLERGIES Allergen Reactions Prochlorperazine Other: See Comments Compazine UNIVERSAL PROTOCOL / SAFETY CHECKLIST Procedure: Onabotulinum toxin A for migraine Informed Consent Consent Obtained: Written [place] Protocol A moment to CARE was completed SIGN IN Personnel directly involved with the procedure wore the appropriate PPE Special Equipment: N/A Patient/Surrogate Stated/Verified: Patient name, Date of , Relevant allergies and Intended procedure TIME OUT Intended patient and procedure match the source document(s) Consent documented and matches the intended procedure No relevant labs, photos, and/or imaging studies were applicable for review. Correct side/site marked and visible. Medications required for procedure verified. No fire risk assessment and interventions applicable. No implant(s) inserted. SIGN OUT No specimen collected. All instruments, equipment, possible retained foreign bodies accounted for. Post-procedure follow-up management communicated and Plan of Care Visit completed when applicable Written Consent Obtained: Written LOT #: [id number] Expiration Date: Month: 1 Year: 2024 Injection Sites Left (Units) Left (Sites) Right (Units) Right (Sites) TOTAL (Units) Insulation Cupola Operator 5 1 5 1 10 Procerus Units: 5 Sites: 1 5 Frontalis 10 2 10 2 20 Temporalis 20 4 20 4 40 Occipitalis 15 3 15 3 30 Cervical PSP 10 2 10 2 20 Trapezius 15 3 15 3 30 Total Units used: 155 Total Units wasted: 45 Prior Therapies Duration of Use Dose Side effect Analgesic Ketorolac (Toradol) Anti-Convulsant Divalproex sodium (Depakote) Gabapentin (Neurontin) Levetiracetam (Keppra) Topiramate (Topamax, Trokendi XL, Qudexy) Zonisamide (Zonegram) Anti-Depressant and Antipsychotic Fluoxetine (Prozac) Antiemetics Ondansetron Prochlorperazine Promethazine Anti-Migraine Dihydroergotamine (DHE-45, Migranal) Blood Pressure Nadolol (Corgard) Botulinum Toxin Onabotulinum Toxin A (Botox) Sleep Aids Melatonin Supplements Magnesium Other Medications Dexamethasone (Decadron) Over the Counter Medications Acetaminophen (Tylenol) Aspirin Ibuprofen (Advil, Motrin) Naproxen sodium (Aleve) Aarti Huertas PA-C documented in this encounterChildren[facility]06-[facility]22 Miscellaneous Notes* Telephone Encounter - [place] Rosales - 02/13/2022 1:08 PM EDT Scheduled [place] Rosales * Telephone Encounter - Nitin Rock MD - 02/13/2022 12:55 PM EDT Ms. Brown underwent EP study today 02/13/2022. She needs follow up with EP JOB TRAINING SPECIALIST in about 2 - 3 months. Nitin Rock MD February 13, 2022 12:55 PM documented in this encounterChildren'[facility]06-03-2022 Miscellaneous Notes* Telephone Encounter - Girish Correa APRN.SCHEDULE CHECKER - 02/10/2022 10:47 AM EDT Patient vocalized concern she should have started her menstrual cycle yesterday. She was requestingif we could do a preop procedure test today. I placed an order for blood hCG. We will reach out to lab as patient is hoping to have drawn now. She was concerned about waiting until Sunday. She lives in [place] and stated she did not want to come in for procedure should she in fact test positive. Girish Correa APRN.CNP February 10, 2022 10:50 AM documented in this encounterChildren'[facility]06-03-2022 Nurse Note* Nga Suresh MA - 02/10/2022 10:11 AM EDT NO COMPLAINTS TODAY documented in this encounterChildren[facility] History of Present illness Narrative* Girish Correa APRN.CNP - 02/10/2022 10:00 AM EDT [facility] General Cardiology Electrophysiology PRIMARY CARE PHYSICIAN: [place] [address] [place] [address] CHIEF COMPLAINT: History and physical update prior to SVT ablation on 02/[address] Rock. HISTORY OF PRESENT ILLNESS (copied from Dr. Rock's office note on 12/06/2021): Ms. Brown presents with her for follow-up evaluation for arrhythmia and syncope. She statessince the July 2021 visit, she felt better for a while but then beginning about November of this year she began experiencing an increase in the frequency and severity of palpitations. She states that the palpitations became harder and also she experienced more rapid heartbeats or tachycardia. One episode lasted for 25 to 30 minutes, associated with palpitations, lightheadedness, shortness of breath and chest discomfort she did present to [facility] ER about 11/20/2021. By the time she arrived there, they only found sinus tachycardia. She did miss a dose of metoprolol recently prior to that episode. Otherwise she has been reasonably faithful with taking the medication as prescribed.She is distressed by the intermittent tachycardia and palpitations, she would like to have better relief from the arrhythmia than the medication has provided. She is also trying to become with her , and would like to discontinue medications from that standpoint as well. Interval History: Ambika is a pleasant 31-year-old female who presents today for history and physical update prior to SVT ablation with Dr. Rock on 02/13/2022. Lengthy discussion had with patientregarding what to expect pre-/intra-/post procedure. At length we discussed general anesthesia, procedure melinda, recovery, activity restrictions, as well as discharge instructions/follow-up. Risk and benefit conversation also had including very low probability of bleeding, stroke, or . Patient was instructed to stop her metoprolol for 1 week prior to ablation. She indicates she believes she may have taken 1 dose on Sunday but has not taken any since Sunday. She also vocalized she shouldhave started her menstrual cycle yesterday. She is apprehensive that she could be . I assured her I would order a blood hCG and she could have that drawn today and outpatient lab. Spoke with outpatient lab to make them aware patient was headed that direction. EKG performed in office showed normal sinus rhythm with a ventricular rate of 88 and appropriate intervals. Patient states she has been dealing with SVT episodes at least once daily for quite some time. She states I have answered all of her questions to her satisfaction and she has none further. Ambika is eager to move forward with ablation. PAST MEDICAL HISTORY Diagnosis Date Asthma Fibromyalgia Hiatal hernia Migraines Nonsustained ventricular tachycardia (HCC) Obesity, Class III, BMI >= 40 07/15/2021 Palpitations Paroxysmal supraventricular tachycardia (HCC) Syncope PAST SURGICAL HISTORY Procedure Laterality Date CHOLECYSTECTOMY 2014 D&C, DIAG AND/OR THERAPEUTIC 2018 ORAL SURGERY PROCEDURE 2009 wisdom teeth TONSILLECTOMY HX 2005 Social History Tobacco Use Smoking status: Never Smoker Smokeless tobacco: Never Used Substance Use Topics Alcohol use: Never Drug use: Never Family History Problem Relation Age of Onset Hypothyroidism Mother Cancer Mother glioblastoma Hyperlipidemia Father Hypertension Father Asthma Sister Migraines Sister Bipolar disorder Sister No Known Problems Brother No Known Problems Brother Diabetes Maternal Grandmother Diabetes Maternal Grandfather Stroke Paternal Grandmother other (COVID-19) Paternal Grandmother Heart disease Paternal Grandfather had two open heart surgeries ALLERGIES Allergen Reactions Prochlorperazine Other: See Comments Compazine MEDICATIONS: famotidine (PEPCID) 40 mg tablet Take 40 mg by mouth once daily. metFORMIN ER (GLUCOPHAGE XR) 500 mg 24 hr tablet Take 1,000 mg by mouth daily with dinner. metoprolol tartrate, short acting, (LOPRESSOR) 100 mg tablet Take 100 mg by mouth twice daily. aspirin, enteric coated (ASPIRIN, ENTERIC COATED) 81 mg EC tablet Take 162 mg by mouth once daily. promethazine (PHENERGAN) 25 mg tablet 1/2 to 1 po q8h prn headache or nausea cholecalciferol, vitamin D3, (VITAMIN D3 ORAL) Take by mouth. gabapentin (NEURONTIN) 100 mg capsule Take three times a day as needed for migraine Naproxen Sodium 550 mg tablet 1 po TID prn headache. Max 10 days a month folic acid 400 mcg tablet Take 400 mcg by mouth once daily. PNV/FERROUS SULFATE/FOLIC ACID ( MULTIVIT WITH IRON ORAL) Take by mouth once daily. Ascorbic Acid chew Take 500 mg by mouth once daily. albuterol HFA (PROVENTIL HFA, VENTOLIN HFA) 90 mcg/actuation inhaler Inhale 2 Puffs as instructed every 4 hours as needed for Wheezing/Shortness of Breath. REVIEW OF SYSTEMS: Review of Systems Constitutional: Negative for chills, fatigue and fever. Respiratory: Negative for apnea, cough, chest tightness, shortness of breath and wheezing. Cardiovascular: Negative for chest pain, palpitations and leg swelling. Gastrointestinal: Negative for abdominal distention, abdominal pain, constipation, diarrhea, nauseaand vomiting. Genitourinary: Negative for difficulty urinating, dysuria and hematuria. Musculoskeletal: Negative for arthralgias. Neurological: Negative for dizziness, weakness, light-headedness and headaches. Psychiatric/Behavioral: Negative for agitation, behavioral problems, confusion and suicidal ideas. PHYSICAL EXAMINATION: BP 137/93 Pulse 72 Ht 5' 7 (1.70m) Wt 335 lb (152.0kg) SpO2 100% LMP 09/27/2020 BMI 52.46 kg/(m^2). Physical Exam Constitutional: Appearance: Normal appearance. She is obese. Cardiovascular: Rate and Rhythm: Normal rate and regular rhythm. Pulses: Normal pulses. Radial pulses are 2+ on the right side and 2+ on the left side. Dorsalis pedis pulses are 2+ on the right side and 2+ on the left side. Posterior tibial pulses are 2+ on the right side and 2+ on the left side. Heart sounds: Normal heart sounds, S1 normal and S2 normal. Comments: Normal sinus rhythm with a ventricular rate of 80. Pulmonary: Effort: Pulmonary effort is normal. Breath sounds: Normal breath sounds. Abdominal: General: Bowel sounds are normal. Palpations: Abdomen is soft. Musculoskeletal: Right lower leg: No edema. Left lower leg: No edema. Skin: General: Skin is warm and dry. Neurological: Mental Status: She is alert and oriented to person, place, and time. Psychiatric: Mood and Affect: Mood normal. Behavior: Behavior normal. CARDIOVASCULAR MEDICINE TESTING: EKG 12/07/2019 Normal sinus rhythm with a ventricular rate of 79. ND interval 0.176. QRS duration 0.80. QT/QTc 0.412/0.472. I have personally reviewed the Electrocardiogram. PLAN AND RECOMMENDATIONS: ASSESSMENT/PLAN: 1. Paroxysmal supraventricular tachycardia (HCC) - ICD9: 427.0, ICD10: I47.1 (primary diagnosis) Patient has been dealing with runs of SVT for quite some time. She mentions currently they occur roughly once a day. She attest that are totally random and do not correlate with exertion. Treatment regimen includes Lopressor 100 mg twice daily. Patient was instructed to stop 1 week prior to procedure. Ambika indicated she may have taken a dose on Sunday. I entered an hCG blood order to be drawn at outpatient lab. Lengthy discussion had regarding what to expect pre-/intra-/post procedure. Patient was instructed to eat and drink well on Sunday with nothing after midnight except for pills with small sips of water the morning of procedure. 2. POTS (postural orthostatic tachycardia syndrome) - ICD9: 427.89, ICD10: I49.8 Patient has been dealing with runs of SVT for quite some time. She mentions currently they occur roughly once a day. She attest that are totally random and do not correlate with exertion. Treatment regimen includes Lopressor 100 mg twice daily. Patient was instructed to stop 1 week prior to procedure. Ambika indicated she may have taken a dose on Sunday. I entered an hCG blood order to be drawn at outpatient lab. Lengthy discussion had regarding what to expect pre-/intra-/post procedure. Patient was instructed to eat and drink well on Sunday with nothing after midnight except for pills with small sips of water the morning of procedure. 3. Syncope, unspecified syncope type - ICD9: 780.2, ICD10: R55 Patient has been dealing with runs of SVT for quite some time. She mentions currently they occur roughly once a day. She attest that are totally random and do not correlate with exertion. Treatment regimen includes Lopressor 100 mg twice daily. Patient was instructed to stop 1 week prior to procedure. Ambika indicated she may have taken a dose on Sunday. I entered an hCG blood order to be drawn at outpatient lab. Lengthy discussion had regarding what to expect pre-/intra-/post procedure. Patient was instructed to eat and drink well on Sunday with nothing after midnight except for pills with small sips of water the morning of procedure. 4. Obesity, Class III, BMI >= 40 - ICD9: 278.01, ICD10: E66.01 Most current BMI listed at 52.47. Return for Pt to show up to hospital around 0700 on 02/13. Girish Correa APRN.KEVIN documented in this encounterChildren[facility]-12-2022 Miscellaneous Notes* Telephone Encounter - [place] Rosales - 01/19/2022 2:32 PM EDT Patient is scheduled for an SVT Ablation on 02/13/[address] Rock. The hospital will call the day before between 2-5pm with your arrival time. Patient should not eat or drink after midnight the day before the procedure. Patient will need a chassis driver when released from the hospital. You will stay overnight for observation. Patient should continue to take medications as prescribed the morning of the procedure with just a sip of water unless otherwise instructed. H&P Update with Girish Correa on 02/10/22 at 10am Covid test on 02/11/22 at 10:30am at the [facility] [address] [place] [address] [id number] Spoke with patient and she verbalized understanding of all instructions [place] Rosales * Telephone Encounter - [place] Rosales - 01/19/2022 2:31 PM EDT Pre procedure covid test ordered [place] Connie documented in this encounterChildren'[facility]08-03-2021 History of Present illness Narrative* 31 yo with RPL and APLS, now with concern for ectopic . She conceived naturally and had an abnl rising HCG 57 to 56 and yesterday had pelvic pain no bleeding. She has no hx of ectopic but bc of her pain, she was sent to the ED. Per ED note, she went to [facility] and US showed no IUP and no adnexal mass, scant free fluid. hGb was 13. Rh pos. Her HCG was 69 and the exam was documented as nontender and non surgical. Today, patient continued to have left sided pelvic pain and thus was asked to present for repeat TVUS. Patient describes the pain as cramping and occasionally sharp on the left side. Denies right sided pain. Denies any vaginal bleeding or passage of clots/tissue. No n/v, SOB, CP, f/c, dizziness or lightheadedness. 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 She conceived naturally and had an abnl rising HCG 57 to 56 and yesterday had pelvic pain no bleeding. She has no hx of ectopic but bc of her pain, she was sent to the ED. Per ED note, she went to [facility] and US showed no IUP and no adnexal mass, scant free fluid. hGb was 13. Rh pos. Her HCG was 69 and the exam was documented as nontender and non surgical. Today, patient continued to have left sided pelvic pain and thus was asked to present for repeat TVUS. Patient describes the pain as cramping and occasionally sharp on the left side. Denies right sided pain. Denies any vaginal bleeding or passage of clots/tissue. No n/v, SOB, CP, f/c, dizziness or lightheadedness. 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 Verbal consent was requested and obtained from AMBIKA BROWN on this date, 07/20/2020 04:00 PM , fora telehealth visit. Patient here for fertility next steps. 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 Evaluation for recurrent loss is essentially negative except for her has not gotten his chromosome analysis which was ordered in September 2019. Her lupus anticoagulant was borderlineelevated and this will be repeated today we encouraged her to get his chromosome analysis Patient's hemoglobin A1c was 6.1% and she was increased on her Metformin dose to 2500 mg nightly. On this dose she does have less side effects and intermittent occasional loose bowel movements. Patient has resumed regular menstrual cycles and has had positive OPK's in the last 2 months but has failed to conceive with timed intercourse. Discussed with her the use of letrozole 2.5 mg days 3 through 7 to augment her ovulation as she is has a BMI of 48. 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) Rubella non-immune status, antepartum (646.83,V15.83) (O99.891,Z28.3) Subclinical hypothyroidism (244.8) (E03.9) Urinary frequency (788.41) (R35.0) UTI (urinary tract infection) (599.0) (N39.0) Vaginal irritation (623.9) (N89.8) Vaginal itching (698.1) (N89.8) Past Medical History History of asthma (V12.69) (Z87.09) History of gastroesophageal reflux (GERD) (V12.79) (Z87.19) History of insulin resistance (V12.29) (Z86.39) History of migraine headaches (V12.49) (Z86.69) Denied: History of seizures Surgical History History of Cholecystectomy History of Dilation and curettage History of Tonsillectomy History of [place] tooth extraction Family History Family history of brain cancer (V16.8) (Z80.8) Family hx of hypertension (V17.49) (Z82.49) Family history of cancer (V16.9) (Z80.9) Family history of diabetes mellitus (DM) (V18.0) (Z83.3) Family history of cancer (V16.9) (Z80.9) Family history of diabetes mellitus (DM) (V18.0) (Z83.3) Family history of cancer (V16.9) (Z80.9) Social History Caffeine use (V49.89) (Z78.9) Does not exercise (V69.0) (Z72.3) 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 Never smoker No alcohol use No illicit drug use Sexually active Allergies Compazine Recorded By: Umair Sepulveda; 07/20/2020 3:38:18 PM Current Meds metFORMIN HCl ER 500 MG Oral Tablet Extended Release 24 Hour; TAKE 5 TABLET Bedtime; Therapy: 15Sep2019 to (Evaluate:[id number]) Requested for: 18Dec2019; Last Rx:[id number] Ordered Rx By: Umair Sepulveda; Dispense: 36 Days ; #:2 X 90 Tablet Bottle; Refill: 3;For: Diabetes mellitus of other type without complication; PAULA = N; Verified Transmission to [facility]; Last Updated By: [employer]; 12/18/2019 4:11:27 PM metFORMIN HCl ER 500 MG Oral Tablet Extended Release 24 Hour; TAKE 5 TABLETS AT BEDTIME as directed by your physician; Therapy: 23Jun2020 to (Last Rx:[id number]) Requested for: [id number] Ordered Rx By: Umair Sepulveda; Dispense: 0 Days ; #:150 Tablet; Refill: 3;For: Morbid obesity with BMI of 50.0-59.9, adult; PAULA = N; Verified Transmission to [facility] Aspirin Childrens 81 MG Oral Tablet Chewable; TAKE 2 TABLET Daily; Therapy: [id number] to (Evaluate:[id number]) Requested for: [id number]; Last Rx:[id number] Ordered Rx By: Umair Sepulveda; Dispense: 45 Days ; #:90 Tablet; Refill: 6;For: Recurrent loss withoutcurrent ; PAULA = N; Verified Transmission to [facility]; Last Updated By: [employer]; 02/24/2020 10:11:27 AM Vitamin D (Cholecalciferol) 25 MCG (1000 UT) Oral Capsule; Therapy: (Recorded:[id number]) to Recorded Dispense: 0 Days ; #: Sufficient; Refill: 0;For: SocHx: Employed; PAULA = N; Record; Last Updated By:Roslyn Perez; 07/07/2019 9:01:48 AM Levothyroxine Sodium 50 MCG Oral Tablet; TAKE 1 TABLET BY MOUTH EVERY DAY; Therapy: 15Sep2019 to (Evaluate:11Jun2020) Requested for: 15Sep2019; Last Rx:[id number] Ordered Rx By: Umair Sepulveda; Dispense: 90 Days ; #:90 Tablet; Refill: 2;For: Subclinical hypothyroidism; PAULA = N; [facility]; Last Updated By: Daily Pic (more content not included)...[facility] complaint Narrative - Reported* An interactive audio and video telecommunication system which permits real time communications between the patient (at the originating site) and provider (at the distant site) was utilized to providethis telehealth service. * 31 yr old for follow upl after missed ab [address] Work Phone: Evaluation note* Diagnosis Onset Date Resolution Status Palpitations acute Ventricular tachycardia [facility] Work Phone: Evaluation note* Diagnosis Pre-procedure lab exam- Primary Pre-procedural laboratory examination Syncope, unspecified syncope type Palpitations Nonsustained ventricular tachycardia (HCC) Paroxysmal ventricular tachycardia POTS (postural orthostatic tachycardia syndrome) Tachycardia, unspecified Paroxysmal supraventricular tachycardia (HCC) Paroxysmal supraventricular tachycardia [facility]* Diagnosis Paroxysmal supraventricular tachycardia (HCC)- Primary Paroxysmal supraventricular tachycardia SVT (supraventricular tachycardia) (HCC)- Primary Other specified cardiac dysrhythmias Syncope, unspecified syncope type Palpitations Nonsustained ventricular tachycardia (HCC) Paroxysmal ventricular tachycardia POTS (postural orthostatic tachycardia syndrome) Tachycardia, unspecified Paroxysmal supraventricular tachycardia (HCC) Paroxysmal supraventricular tachycardia [facility]* Diagnosis Paroxysmal supraventricular tachycardia (HCC)- Primary Paroxysmal supraventricular tachycardia Paroxysmal supraventricular tachycardia (HCC)- Primary Paroxysmal supraventricular tachycardia POTS (postural orthostatic tachycardia syndrome) Tachycardia, unspecified Syncope, unspecified syncope type Obesity, Class III, BMI >= 40 Morbid obesity Syncope, unspecified syncope type Palpitations Nonsustained ventricular tachycardia (HCC) Paroxysmal ventricular tachycardia POTS (postural orthostatic tachycardia syndrome) Tachycardia, unspecified Paroxysmal supraventricular tachycardia (HCC) Paroxysmal supraventricular tachycardia [facility]* Diagnosis Chronic migraine without aura, intractable, without status migrainosus- Primary documented in this encounter [facility] note* Diagnosis Onset Date Resolution Status Palpitations acute [facility]ricular [facility]ut e [facility]: [facility]* Diagnosis Onset Date Resolution Status Ventricular tachycardia acut e Near syncope chronic Hypersomnolence acute Ventricular tachycardia acut e Near syncope chronic [facility] Work Phone: Evaluation note* Diagnosis Onset Date Resolution Status Ventricular tachycardia acut e Near syncope chronic BMI 50.0-59.9, adult acute Obstructive sleep apnea [facility] Work Phone: Evaluation note* Diagnosis Onset Date Resolution Status BMI 50.0-59.9, adult acute Obstructive sleep apnea acut e HTN (hypertension), benign a cute SVT (supraventricular tachycardia) acute Syncope and collapse acute Near syncope chronic [facility] Work Phone: Evaluation note* Diagnosis Chronic migraine without aura, intractable, without status migrainosus- Primary [facility]* Diagnosis Onset Date Resolution Status BMI 50.0-59.9, adult acute Obstructive sleep apnea acut e HTN (hypertension), benign a cute SVT (supraventricular tachycardia) acute Syncope and collapse acute Near syncope chronic Allergic rhinitis acute BMI 50.0-59.9, adult [facility]* Diagnosis Onset Date Resolution Status BMI 50.0-59.9, adult acute Obstructive sleep apnea acut e HTN (hypertension), benign a cute SVT (supraventricular tachycardia) acute Syncope and collapse acute Near syncope chronic Allergic rhinitis acute BMI 50.0-59.9, adult acute Obstructive sleep apnea acut e Implantable loop recorder present acute Palpitations acute SVT (supraventricular tachycardia) acute Syncope and collapse acute Ventricular tachycardia acut e Implantable loop recorder present acute Palpitations acute SVT (supraventricular tachycardia) acute Syncope and collapse acute [facility] Work Phone: Evaluation note* Diagnosis Onset Date Resolution Status HTN (hypertension), benign a cute SVT (supraventricular tachycardia) acute Syncope and collapse acute Near syncope chronic Allergic rhinitis acute BMI 50.0-59.9, adult acute Obstructive sleep apnea acut e Implantable loop recorder present acute Palpitations acute SVT (supraventricular tachycardia) acute Syncope and collapse acute Ventricular tachycardia acut e Implantable loop recorder present acute Palpitations acute SVT (supraventricular tachycardia) acute Syncope and collapse acute [facility] Work Phone: Evaluation note* Diagnosis Onset Date Resolution Status HTN (hypertension), benign a cute SVT (supraventricular tachycardia) acute Syncope and collapse acute Near syncope chronic Allergic rhinitis acute BMI 50.0-59.9, adult acute Obstructive sleep apnea acut e Implantable loop recorder present acute Palpitations acute SVT (supraventricular tachycardia) acute Syncope and collapse acute Ventricular tachycardia acut e Implantable loop recorder present acute Palpitations acute SVT (supraventricular tachycardia) acute Syncope and collapse acute Implantable loop recorder present acute Palpitations acute SVT (supraventricular tachycardia) acute Syncope and collapse acute Ventricular tachycardia acut e Near syncope chronic [facility] Work Phone: Evaluation note* Diagnosis Supervision of other high risk pregnancies, first trimester History of multiple miscarriages Genetic screening Other genetic screening Screening for genetic disease carrier status documented in this encounter [facility] note* Diagnosis Recurrent loss Genetic screening Other genetic screening documented in this encounter [facility] note* Diagnosis Paroxysmal supraventricular tachycardia documented in this encounter [facility] note* Diagnosis with history of infertility in first trimester Supervision of other high risk pregnancies, first trimester documented in this encounter [facility] note* Diagnosis Hypothyroidism complicating , first trimester documented in this encounter [facility] note* Diagnosis Chronic migraine without aura- Primary Chronic migraine without aura, without mention of intractable migraine without mention of status migrainosus Somatic dysfunction of head region Somatic dysfunction of cervical region Nonallopathic lesion of cervical region, not elsewhere classified Somatic dysfunction of thoracic region Nonallopathic lesion of thoracic region, not elsewhere classified Somatic dysfunction of both upper extremities Somatic dysfunction of both lower extremities documented in this encounter [facility] note* Diagnosis Onset Date Resolution Status Implantable loop recorder present acute Palpitations acute SVT (supraventricular tachycardia) acute Syncope and collapse acute Ventricular tachycardia acut e Near syncope chronic Implantable loop recorder present acute Palpitations acute SVT (supraventricular tachycardia) acute Syncope and collapse acute HTN (hypertension), benign a cute Implantable loop recorder present acute SVT (supraventricular tachycardia) acute Implantable loop recorder present acute SVT (supraventricular tachycardia) acute Syncope and collapse acute Near syncope chronic [facility] Work Phone: Evaluation note* Diagnosis Chronic migraine without aura without status migrainosus, not intractable- Primary Somatic dysfunction of head region Somatic dysfunction of cervical region Nonallopathic lesion of cervical region, not elsewhere classified Somatic dysfunction of thoracic region Nonallopathic lesion of thoracic region, not elsewhere classified documented in this encounter [facility] note* Diagnosis Status migrainosus- Primary Variants of migraine, not elsewhere classified, without mention of intractable migraine without mention of status migrainosus documented in this encounter [facility] note* Diagnosis Status migrainosus- Primary Variants of migraine, not elsewhere classified, without mention of intractable migraine without mention of status migrainosus 27 weeks gestation of state, incidental documented in this encounter [facility] note* Diagnosis Onset Date Resolution Status Implantable loop recorder present acute Palpitations acute SVT (supraventricular tachycardia) acute Syncope and collapse acute HTN (hypertension), benign a cute Implantable loop recorder present acute SVT (supraventricular tachycardia) acute Implantable loop recorder present acute SVT (supraventricular tachycardia) acute Syncope and collapse acute Near syncope chronic [facility] Work Phone: Evaluation note* Diagnosis Chronic migraine without aura without status migrainosus, not intractable- Primary Somatic dysfunction of head region Somatic dysfunction of cervical region Nonallopathic lesion of cervical region, not elsewhere classified Somatic dysfunction of thoracic region Nonallopathic lesion of thoracic region, not elsewhere classified documented in this encounter [facility] note* Diagnosis Chronic migraine without aura without status migrainosus, not intractable- Primary Somatic dysfunction of head region Somatic dysfunction of cervical region Nonallopathic lesion of cervical region, not elsewhere classified Somatic dysfunction of thoracic region Nonallopathic lesion of thoracic region, not elsewhere classified documented in this encounter [facility] note* Diagnosis Symptomatic irreversible pulpitis- Primary Dental caries extending into dentine [facility]* Diagnosis Pain, dental- Primary Unspecified disorder of the teeth and supporting structures documented in this encounter [facility] note* Diagnosis Onset Date Resolution Status Implantable loop recorder present acute SVT (supraventricular tachycardia) acute Syncope and collapse acute Near syncope chronic [facility] Work Phone: Evaluation note* Diagnosis 37 weeks gestation of - Primary Velamentous insertion of umbilical cord, antepartum Edema S/P documented in this encounter [facility] note* Diagnosis Status migrainosus- Primary Variants of migraine, not elsewhere classified, without mention of intractable migraine without mention of status migrainosus Chronic migraine without aura, intractable, without status migrainosus documented in this encounter [facility] note* Diagnosis Onset Date Resolution Status Care and examination of lactating mother noneactive Care and examination of lactating mother noneactive Other disorders of noneactive Care and examination of lactating mother noneactive Other disorders of noneactive [facility] Work Phone: Evaluation note* Diagnosis History of gestational diabetes- Primary Personal history of gestational diabetes Vaginal dryness Other specified symptom associated with female genital organs Lactating mother care and examination of lactating mother Amenorrhea Absence of menstruation History of pre-eclampsia Personal history of other genital system and obstetric disorders [facility]* Diagnosis Chronic migraine without aura, intractable, without status migrainosus- Primary [facility]* Diagnosis Onset Date Resolution Status Implantable loop recorder present acute SVT (supraventricular tachycardia) acute Ventricular tachycardia acut e [facility] Work Phone: Evaluation note* Diagnosis Toe pain, left- Primary Pain in limb [facility]* Diagnosis Chronic migraine without aura, intractable, without status migrainosus- Primary documented in this encounter [facility] note* Diagnosis Abnormal uterine bleeding- Primary Unspecified disorder of menstruation and other abnormal bleeding from female genital tract Class 3 severe obesity with body mass index (BMI) of 50.0 to 59.9 in adult, unspecified obesity type, unspecified whether serious comorbidity present (HCC) Chronic migraine without aura, intractable, without status migrainosus- Primary [facility] Diagnosis Chronic migraine without aura, intractable, without status migrainosus- Primary [facility] Diagnosis Abnormal uterine bleeding Unspecified disorder of menstruation and other abnormal bleeding from female genital tract [facility] Diagnosis Toe pain, left Pain in limb [facility] Diagnosis Chronic migraine without aura, intractable, without status migrainosus- Primary Spells of decreased attentiveness Other general symptoms [facility] Diagnosis Chronic migraine without aura, intractable, without status migrainosus- Primary [facility]* Diagnosis Status migrainosus- Primary Variants of migraine, not elsewhere classified, without mention of intractable migraine without mention of status migrainosus [facility] Diagnosis Chronic migraine without aura, intractable, without status migrainosus- Primary [facility] Diagnosis Acute cough- Primary Pleuritic pain Painful respiration Acute cough [facility]* Diagnosis Acute cough [facility]* Diagnosis Paroxysmal supraventricular tachycardia (HCC)- Primary Paroxysmal supraventricular tachycardia Palpitations Implantable loop recorder present POTS (postural orthostatic tachycardia syndrome) Tachycardia, unspecified Obesity, Class III, BMI >= 40 Morbid obesity Obstructive sleep apnea syndrome Obstructive sleep apnea (adult) (pediatric) [facility]* Diagnosis Palpitations- Primary Near syncope documented in this encounter [facility] Work Phone: Evaluation note* Diagnosis Intractable chronic migraine without aura and with status migrainosus- Primary Chronic migraine without aura, with intractable migraine, so stated, with status migrainosus Chronic migraine without aura, intractable, without status migrainosus [facility]* Diagnosis Left-sided weakness- Primary Muscle weakness (generalized) Migraine without status migrainosus, not intractable, unspecified migraine type [facility] Diagnosis Patient left without being seen- Primary Surgical or other procedure not carried out because of patient's decision [facility]* Diagnosis Chronic migraine without aura, with intractable migraine, so stated, with status migrainosus- Primary Intractable chronic migraine without aura and with status migrainosus Chronic migraine without aura, with intractable migraine, so stated, with status migrainosus [facility]* Diagnosis Chronic migraine without aura, with intractable migraine, so stated, with status migrainosus- Primary Chronic migraine without aura, with intractable migraine, so stated, with status migrainosus- Primary [facility]* Diagnosis Chronic migraine without aura, with intractable migraine, so stated, with status migrainosus- Primary Chronic migraine without aura, with intractable migraine, so stated, with status migrainosus- Primary [facility]* Diagnosis Chronic migraine without aura, with intractable migraine, so stated, with status migrainosus- Primary Chronic migraine without aura, with intractable migraine, so stated, with status migrainosus- Primary [facility]* Diagnosis Chronic migraine without aura, with intractable migraine, so stated, with status migrainosus- Primary [facility]* Diagnosis Chronic migraine without aura, with intractable migraine, so stated, with status migrainosus- Primary [facility]* Diagnosis Nonsustained ventricular tachycardia (HCC)- Primary Paroxysmal ventricular tachycardia Status post ablation operation for arrhythmia Other postprocedural status PVC (premature ventricular contraction) Other premature beats documented in this encounter [facility] note* Diagnosis Nonsustained ventricular tachycardia (HCC)- Primary Paroxysmal ventricular tachycardia Status post ablation operation for arrhythmia Other postprocedural status PVC (premature ventricular contraction) Other premature beats [facility] Author Charlie Chase [facility] April 10, 2023 10:36pm Note Date/Time April 10, 2023 10: 22pm [facility] Medical Records Department [address] [place] [address] H&P Exam - PLASTIC TUBING INSULATION SUPERVISOR 04/10/23 2214 MR#: [id number] Acct: [id number] Name: AMBIKA BROWNHEL Rep #:[id number] : 1990 33 From: Charlie jarrell DO PCP: MEGA WEEKS Status:REG CLI Location: [id number] History and Physical Date of Admission: 04/10/23 HPI: 33-year-old G6, P0 at 33/5 weeks, ТАТЬЯНА 05/24/2023, presented to labor and deliveryfor leaking of fluid and Bro Palencia contractions. Patient reports irregular cramping that is uncomfortable but she can speak through. States that this has been happening for several weeks. She was seen in [place] on Sunday for the same complaint and reported that her cervix was closed at that time. Reported some dampness in her underwear around 1830 today. She did report that she and her had intercourse today as well. Denies vaginal bleeding. Reports movement. [facility] complicated by: Class III obesity with BMI of 52, hypertension on labetalol, hypothyroidism on levothyroxine, antiphospholipid antibody syndrome on Lovenox 40 mg daily and aspirin, gestational diabetes on metformin, history of tachycardia with a loop recorder that was implanted in August 2022. Patient sees Dr. Conrad. PLASTIC TUBING INSULATION SUPERVISOR history: G1?G4: SAB first trimester, had 1 D&C G5: Ectopic , methotrexate G6: Current, Clomid Medical history: 1. Class III obesity 2. Chronic hypertension 3. Hypothyroidism 4. Antiphospholipid antibody syndrome 5. Tachycardia with loop recorder 6. Gestational diabetes, had history of insulin resistance prior to Surgical history: 1. [place] tooth extraction 2. Tonsillectomy 3. Laparoscopic cholecystectomy 4. Attempted cardiac ablation, unable to have ablation as she did not have the tachycardia while on the table 5. Loop recorder placement Medications: 1. Vitamin C 2. Aspirin 81 mg 3. Vitamin D3 4. Lovenox 40 mg daily 5. Labetalol 6. Levothyroxine 7. Metformin Allergies: Compazine and Benadryl cause agitation and anxiety Social history: Denies tobacco, alcohol, drug use Family history: Noncontributory Physical exam: Blood pressure 128/70, heart rate 93 General: No acute distress HEENT: Normal cephalic/atraumatic, PERRLA Cardiorespiratory: No increased effort Abdomen: Soft, nontender, gravid, obese Cervical exam: Closed thick and high, -4 station Extremities: Minimal edema Neurologic: No focal deficits Musculoskeletal: Moves all extremities equally Bedside ultrasound: Normal JACOB measuring 9.8 cm, breech position head maternal right FHR: 135/mod remigio/+accel/no decel Vergas: rare Assessment/plan: 33-year-old G6, P0 at 33/5 weeks, ТАТЬЯНА 05/24/2023, presented to labor and delivery for leaking of fluid and Bro Palencia contractions. ?Rule out rupture. ROM pending. Normal JACOB. No fluid on exam. Cervix closed/thick and high. Reviewed signs and symptoms of labor. 04/10/232221 <Electronically signed by Charlie Chase DO> Cosigner Signature (if applicable): CC: MEGA WEEKS; Dr. Charlie Chase DO~ Signed ADDENDUM by Dr. Charlie Chase DO on 04/10/23 at 2236 Addendum ROM negative. status reassuring. Discharge home in stable condition. 04/10/232235<Electronically signed by Charlie Chase DO> Cosigner Signature (if applicable): cc: MEGA WEEKS; Dr. Charlie Chase DO ~* Signed [facility] Work Phone: History of Present illness Narrative* 31 yo with RPL and APLS presents for follow-up after methotrexate therapy for ectopic . She conceived naturally with her partner and has no prior history of ectopic . Hcg downtrended appropriately after methotrexate therapy. Pt would like to discuss additional fertility options considering her prior difficulties sustaining a . * Past medical history is significant for obesity (BMI 49) and type II diabetes (HbA1c 6.1% Feb 2020)on metformin 2500 qhs. Reports she has been counting calories, cut out sugary drinks and has been walking daily. Reports recently she has been stress eating due to of mom two weeks ago. 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 Hx: The patient has no prior history of pelvic surgery or pelvic infections * PMx: obesity (BMI 49), T2DM, hypothyroidism, asthma, GERD, migraines * PSx: D&C, cholecystectomy, tonsillectomy * Meds: metformin, synthroid, aspirin, progesterone, vit D, PNVs * Allergies: compazine * SH: denies E/T/D [id number] 2nd Fl Work Phone: Hospital course Narrative No data available for this section [facility] Hospital Discharge instructions No data available for this section [facility] Hospital Discharge instructions Additional Instructions Keep your appointment with Dr. Aguayo as scheduled tomorrow.[facility] Work Phone: Hospital Discharge instructions Additional Instructions Please follow-up with your family doctor as well as promotions producer for further evaluation of your symptoms and return to the ER should you have any further [facility] Work Phone: Hospital Discharge instructions Additional Instructions Please follow-up with your PLASTIC TUBING INSULATION SUPERVISOR this upcoming week. He had a normal work-up today. Please maintain hydration.[facility] Work Phone: Hospital Discharge instructions Additional Instructions [facility] Work Phone: Hospital Discharge instructionsNo known hospital discharge instructions.[facility] Discharge instructions Additional Instructions Stay well-hydrated, alternate Tylenol and ibuprofen for your fever, return for any worsening of your symptoms.[facility] Work Phone: Hospital Discharge instructions Additional Instructions Thank you for trusting us with your care today! Please take Tylenol (2 pills, 650 mg), ibuprofen (2 pills, 400 mg) every 6 hours as needed for pain and fever control. Please return to the emergency department if your symptoms change or worsen. Please follow with your primary care physician for further outpatient evaluation and management.[facility] Work Phone: Hospital Discharge instructions* Attachments The following attachments cannot be sent through Care Everywhere. * Palpitations ED ([place]) documented in this [facility] Work Phone: Progress note No data available for this section [facility] Reason for referral (narrative)* Diagnostic Procedure Only (Urgent) - Closed Specialty Diagnoses / Procedures Referred By Contac t Referred To Contact XR IMAGING Diagnoses Toe pain, left Procedures XR TOE AP/LAT/OBL LEFT RADEX TOE MINIMUM 2 VIEWS Lauro Diaz MD [address] [place] [address] [place] [address] Referral ID Status Reason Start Date Expiration Date V isits Requested Visits Authorized [id number] Closed Auto-Generate d Referral 12/15/2023 01/13/[address] [facility] for referral (narrative)* Diagnostic Procedure Only (Urgent) - Closed Specialty Diagnoses / Procedures Referred By Contac t Referred To Contact XR IMAGING Diagnoses Toe pain, left Procedures XR TOE AP/LAT/OBL LEFT RADEX TOE MINIMUM 2 VIEWS Lauro Diaz MD [address] [place] [address] [place] [address] Referral ID Status Reason Start Date Expiration Date V isits Requested Visits Authorized [id number] Closed Auto-Generate d Referral 12/15/2023 01/13/[address] [facility] for referral (narrative)No reason for referral information [facility] Work Phone: Reason for visit Narrative* Diagnostic Procedure Only (Routine) - Closed Specialty Diagnoses / Procedures Referred By Contac t Referred To Contact [facility] Diagnoses Abnormal uterine bleeding Procedures PELVIC US WHI US PELVIC NONOBSTETRIC REAL-TIME IMAGE COMPLETE [place] Mondragon, MARIA FERNANDA.SCHEDULE CHECKER [address] [place] [address] [facility] [address] [place] [address] Referral ID Status Reason Start Date Expiration Date V isits Requested Visits Authorized [id number] Closed Auto-Generate d Referral 04/30/2024 04/30/2025 1 1 [facility]* Diagnostic Procedure Only (Urgent) - Closed Specialty Diagnoses / Procedures Referred By Contac t Referred To Contact XR IMAGING Diagnoses Toe pain, left Procedures XR TOE AP/LAT/OBL LEFT RADEX TOE MINIMUM 2 VIEWS Lauro Diaz MD [address] [place] [address] [place] [address] Referral ID Status Reason Start Date Expiration Date V isits Requested Visits Authorized [id number] Closed Auto-Generate d Referral 12/15/2023 01/13/2025 1 1 [facility] Summary Purpose Family History No Family History Records Found Grandmother Name Dates Details Family history of cancer(V16 .9, Z80.9) Status:Active Family history of diabetes m ellitus (DM)(V18.0, Z83.3) Status:Active Grandfather Name Dates Details Family history of cancer(V16 .9, Z80.9) Status:Active Grandmother Name Dates Details Family history of cancer(V16 .9, Z80.9) Status:Active Mother Name Dates Details Family history of brain canc er(V16.8, Z80.8) Status:Active Father Name Dates Details Family hx of hypertension(V1 7.49, Z82.49) Status:Active Grandfather Name Dates Details Family history of diabetes m ellitus (DM)(V18.0, Z83.3) Status:Active Grandmother Name Dates Details Family history of cancer(V16 .9, Z80.9) Status:Active Family history of diabetes m ellitus (DM)(V18.0, Z83.3) Status:Active Grandfather Name Dates Details Family history of cancer(V16 .9, Z80.9) Status:Active Grandmother Name Dates Details Family history of cancer(V16 .9, Z80.9) Status:Active Mother Name Dates Details Family history of brain canc er(V16.8, Z80.8) Status:Active Father Name Dates Details Family hx of hypertension(V1 7.49, Z82.49) Status:Active Grandfather Name Dates Details Family history of diabetes m ellitus (DM)(V18.0, Z83.3) Status:Active Grandmother Name Dates Details Family history of cancer(V16 .9, Z80.9) Status:Active Family history of diabetes m ellitus (DM)(V18.0, Z83.3) Status:Active Grandfather Name Dates Details Family history of cancer(V16 .9, Z80.9) Status:Active Grandmother Name Dates Details Family history of cancer(V16 .9, Z80.9) Status:Active Mother Name Dates Details Family history of brain canc er(V16.8, Z80.8) Status:Active Father Name Dates Details Family hx of hypertension(V1 7.49, Z82.49) Status:Active Grandfather Name Dates Details Family history of diabetes m ellitus (DM)(V18.0, Z83.3) Status:Active Grandmother Name Dates Details Family history of cancer(V16 .9, Z80.9) Status:Active Family history of diabetes m ellitus (DM)(V18.0, Z83.3) Status:Active Grandfather Name Dates Details Family history of cancer(V16 .9, Z80.9) Status:Active Grandmother Name Dates Details Family history of cancer(V16 .9, Z80.9) Status:Active Mother Name Dates Details Family history of brain canc er(V16.8, Z80.8) Status:Active Father Name Dates Details Family hx of hypertension(V1 7.49, Z82.49) Status:Active Grandfather Name Dates Details Family history of diabetes m ellitus (DM)(V18.0, Z83.3) Status:Active Grandmother Name Dates Details Family history of cancer(V16 .9, Z80.9) Status:Active Family history of diabetes m ellitus (DM)(V18.0, Z83.3) Status:Active Grandfather Name Dates Details Family history of cancer(V16 .9, Z80.9) Status:Active Grandmother Name Dates Details Family history of cancer(V16 .9, Z80.9) Status:Active Mother Name Dates Details Family history of brain canc er(V16.8, Z80.8) Status:Active Father Name Dates Details Family hx of hypertension(V1 7.49, Z82.49) Status:Active Grandfather Name Dates Details Family history of diabetes m ellitus (DM)(V18.0, Z83.3) Status:Active Grandmother Name Dates Details Family history of cancer(V16 .9, Z80.9) Status:Active Family history of diabetes m ellitus (DM)(V18.0, Z83.3) Status:Active Grandfather Name Dates Details Family history of cancer(V16 .9, Z80.9) Status:Active Grandmother Name Dates Details Family history of cancer(V16 .9, Z80.9) Status:Active Mother Name Dates Details Family history of brain canc er(V16.8, Z80.8) Status:Active Father Name Dates Details Family hx of hypertension(V1 7.49, Z82.49) Status:Active Grandfather Name Dates Details Family history of diabetes m ellitus (DM)(V18.0, Z83.3) Status:Active Unknown Family Member Name Dates Details Family hx of hypertension: F ather(V17.49, Z82.49) Status:Active Family history of cancer: Ma ternal Grandmother, Paternal Grandmother, Paternal Grandfather(V16.9, Z80.9) Status:Active Family history of diabetes m ellitus (DM): Maternal Grandmother, Maternal Grandfather(V18.0, Z83.3) Status:Active Family history of brain canc er: Mother(V16.8, Z80.8) Status:Active Unknown Family Member Name Dates Details Family hx of hypertension: F ather(V17.49, Z82.49) Status:Active Family history of cancer: Ma ternal Grandmother, Paternal Grandmother, Paternal Grandfather(V16.9, Z80.9) Status:Active Family history of diabetes m ellitus (DM): Maternal Grandmother, Maternal Grandfather(V18.0, Z83.3) Status:Active Family history of brain canc er: Mother(V16.8, Z80.8) Status:Active Unknown Family Member Name Dates Details Family hx of hypertension: F ather(V17.49, Z82.49) Status:Active Family history of cancer: Ma ternal Grandmother, Paternal Grandmother, Paternal Grandfather(V16.9, Z80.9) Status:Active Family history of diabetes m ellitus (DM): Maternal Grandmother, Maternal Grandfather(V18.0, Z83.3) Status:Active Family history of brain canc er: Mother(V16.8, Z80.8) Status:Active Unknown Family Member Name Dates Details Family hx of hypertension: F ather(V17.49, Z82.49) Status:Active Family history of cancer: Ma ternal Grandmother, Paternal Grandmother, Paternal Grandfather(V16.9, Z80.9) Status:Active Family history of diabetes m ellitus (DM): Maternal Grandmother, Maternal Grandfather(V18.0, Z83.3) Status:Active Family history of brain canc er: Mother(V16.8, Z80.8) Status:Active Unknown Family Member Name Dates Details Family hx of hypertension: F ather(7.49, Z82.49) Status:Active Family history of cancer: Ma ternal Grandmother, Paternal Grandmother, Paternal Grandfather(V16.9, Z80.9) Status:Active Family history of diabetes m ellitus (DM): Maternal Grandmother, Maternal Grandfather(V18.0, Z83.3) Status:Active Family history of brain canc er: Mother(V16.8, Z80.8) Status:Active Unknown Family Member Name Dates Details Family hx of hypertension: F ather(7.49, Z82.49) Status:Active Family history of cancer: Ma ternal Grandmother, Paternal Grandmother, Paternal Grandfather(V16.9, Z80.9) Status:Active Family history of diabetes m ellitus (DM): Maternal Grandmother, Maternal Grandfather(V18.0, Z83.3) Status:Active Family history of brain canc er: Mother(V16.8, Z80.8) Status:Active Unknown Family Member Name Dates Details Family hx of hypertension: F ather(7.49, Z82.49) Status:Active Family history of cancer: Ma ternal Grandmother, Paternal Grandmother, Paternal Grandfather(V16.9, Z80.9) Status:Active Family history of diabetes m ellitus (DM): Maternal Grandmother, Maternal Grandfather(V18.0, Z83.3) Status:Active Family history of brain canc er: Mother(V16.8, Z80.8) Status:Active Unknown Family Member Name Dates Details Family hx of hypertension: F ather(V17.49, Z82.49) Status:Active Family history of cancer: Ma ternal Grandmother, Paternal Grandmother, Paternal Grandfather(V16.9, Z80.9) Status:Active Family history of diabetes m ellitus (DM): Maternal Grandmother, Maternal Grandfather(V18.0, Z83.3) Status:Active Family history of brain canc er: Mother(V16.8, Z80.8) Status:Active Unknown Family Member Name Dates Details Family hx of hypertension: F ather(V17.49, Z82.49) Status:Active Family history of cancer: Ma ternal Grandmother, Paternal Grandmother, Paternal Grandfather(V16.9, Z80.9) Status:Active Family history of diabetes m ellitus (DM): Maternal Grandmother, Maternal Grandfather(V18.0, Z83.3) Status:Active Family history of brain canc er: Mother(V16.8, Z80.8) Status:Active Unknown Family Member Name Dates Details Family hx of hypertension: F ather(V17.49, Z82.49) Status:Active Family history of cancer: Ma ternal Grandmother, Paternal Grandmother, Paternal Grandfather(V16.9, Z80.9) Status:Active Family history of diabetes m ellitus (DM): Maternal Grandmother, Maternal Grandfather(V18.0, Z83.3) Status:Active Family history of brain canc er: Mother(V16.8, Z80.8) Status:Active Unknown Family Member Name Dates Details Family hx of hypertension: F ather(V17.49, Z82.49) Status:Active Family history of cancer: Ma ternal Grandmother, Paternal Grandmother, Paternal Grandfather(V16.9, Z80.9) Status:Active Family history of diabetes m ellitus (DM): Maternal Grandmother, Maternal Grandfather(V18.0, Z83.3) Status:Active Family history of brain canc er: Mother(V16.8, Z80.8) Status:Active Unknown Family Member Name Dates Details Family hx of hypertension: F ather(V17.49, Z82.49) Status:Active Family history of cancer: Ma ternal Grandmother, Paternal Grandmother, Paternal Grandfather(V16.9, Z80.9) Status:Active Family history of diabetes m ellitus (DM): Maternal Grandmother, Maternal Grandfather(V18.0, Z83.3) Status:Active Family history of brain canc er: Mother(V16.8, Z80.8) Status:Active Unknown Family Member Name Dates Details Family hx of hypertension: F ather(V17.49, Z82.49) Status:Active Family history of cancer: Ma ternal Grandmother, Paternal Grandmother, Paternal Grandfather(V16.9, Z80.9) Status:Active Family history of diabetes m ellitus (DM): Maternal Grandmother, Maternal Grandfather(V18.0, Z83.3) Status:Active Family history of brain canc er: Mother(V16.8, Z80.8) Status:Active Relationship Condition Age at Onset Recorded Date/T william mother Malignant neoplasm Unknown Disorder of thyroid Unknown father Cardiac disease Unknown Unknown Family Member Name Dates Details Family hx of hypertension: F ather(V17.49, Z82.49) Status:Active Family history of cancer: Ma ternal Grandmother, Paternal Grandmother, Paternal Grandfather(V16.9, Z80.9) Status:Active Family history of diabetes m ellitus (DM): Maternal Grandmother, Maternal Grandfather(V18.0, Z83.3) Status:Active Family history of brain canc er: Mother(V16.8, Z80.8) Status:Active Unknown Family Member Name Dates Details Family hx of hypertension: F ather(7.49, Z82.49) Status:Active Family history of cancer: Ma ternal Grandmother, Paternal Grandmother, Paternal Grandfather(V16.9, Z80.9) Status:Active Family history of diabetes m ellitus (DM): Maternal Grandmother, Maternal Grandfather(V18.0, Z83.3) Status:Active Family history of brain canc er: Mother(V16.8, Z80.8) Status:Active Advance Directives No Advanced Directives Records Found Advance Directive Response Recorded Date/ Time Living Will No January 04, 2022 8:05pm Power of Photographic Laboratory Supervisor No January 04 8:05pm Documents on File Type Date Recorded Patient Childrens Club Attendant Expl anation Advance Directive(s) 03/15/2016 8:33 AM Documents on File Type Date Recorded Patient Childrens Club Attendant Expl anation Advance Directive(s) 02/13/2022 7:14 AM Advance Directive(s) 03/15/2016 8:33 AM Advance Directive Response Recorded Date/ Time Living Will No March 22, 2022 6:36pm Power of Photographic Laboratory Supervisor No March 22 6:36pm Advance Directive Response Recorded Date/ Time Advance Directives No August 7:16am Living Will No August 28 022 7:16am Power of Photographic Laboratory Supervisor No August 28, 2022 7:16am Advance Directive Response Recorded Date/ Time Advance Directives No August 7:16am Living Will No September 14 6:56pm Power of Photographic Laboratory Supervisor No September 14 023 6:56pm Advance Directive Response Recorded Date/ Time Advance Directives No August 7:16am Living Will No September 23 1:05am Power of Photographic Laboratory Supervisor No September 23, 2022 1:05am Advance Directive Response Recorded Date/ Time Advance Directives No August 7:16am Living Will No October 21 023 9:13pm Power of Photographic Laboratory Supervisor No October 21, 2022 9:13pm Advance Directive Response Recorded Date/ Time Advance Directives No August 8:16am Living Will No November 29, 2022 2:39pm Power of Photographic Laboratory Supervisor No November 29 2:39pm Latest Code Status on File Code Status Date Activated Date Inactivated Comments Full Code 12/26/2022 4:42 PM 12/29/2022 5:59 PM Advance Directive Response Recorded Date/ Time Advance Directives No August 8:16am Living Will No March 10, 2023 9 :32pm Power of Photographic Laboratory Supervisor No March 10, 2023 9:32pm Latest Code Status on File Code Status Date Activated Date Inactivated Comments Full Code 05/07/2023 8:47 PM Code Status History Code Status Date Activated Date Inactivated Comments Full Code 12/26/2022 4:42 PM 12/29/2022 5:59 PM Latest Code Status on File Code Status Date Activated Date Inactivated Comments Full Code 05/07/2023 8:47 PM 05/12/2023 4:56 PM Code Status History Code Status Date Activated Date Inactivated Comments Full Code 12/26/2022 4:42 PM 12/29/2022 5:59 PM Advance Directive Response Recorded Date/ Time Advance Directives No August 8:16am Living Will No June 10 5:45pm Power of Photographic Laboratory Supervisor No June 10 5:45pm Advance Directive Response Recorded Date/ Time Living Will No August 18 10:04pm Do you have a Healthcare Power of Photographic Laboratory Supervisor? No August 18, 2024 10:04pm Living Will No September 17 5:41pm Do you have a Healthcare Power of Photographic Laboratory Supervisor? No September 17, 2024 5:41pm Advance Directives No August 8:16am Advance Directive Response Recorded Date/ Time Living Will No August 18 10:04pm Do you have a Healthcare Power of Photographic Laboratory Supervisor? No August 18, 2024 10:04pm Living Will No September 17 5:41pm Do you have a Healthcare Power of Photographic Laboratory Supervisor? No September 17, 2024 5:41pm Living Will No December 03, 2024 8:28pm Do you have a Healthcare Power of Photographic Laboratory Supervisor? No December 03, 2024 8:28pm Advance Directives No August 8:16am Advance Directive Response Recorded Date/ Time Living Will No December 03, 2024 8:28pm Do you have a Healthcare Power of Photographic Laboratory Supervisor? No December 03, 2024 8:28pm Do you have a Healthcare Power of Photographic Laboratory Supervisor? No January 11, 2025 4:34pm Advance Directives No August 8:16am Date Activated Date Inactivated Comments 01/13/2025 8:49 AM 01/16/2025 9:14 PM Question Answer Comments Full Code Order Discussed With: Discussion Not M edically Appropriate Date Activated Date Inactivated Comments 01/13/2025 8:49 AM 01/16/2025 9:14 PM Question Answer Comments Full Code Order Discussed With: Discussion Not M edically Appropriate Advance Directive Response Recorded Date/ Time Living Will No June 10 5:45pm Do you have a Healthcare Power of Photographic Laboratory Supervisor? No June 10, 2023 5:45pm Do you have a Healthcare Power of Photographic Laboratory Supervisor? No January 11, 2025 4:34pm Advance Directives No August 8:16am Instructions Name Dates Details Instructions not documented Name Dates Details Instructions not documented Name Dates Details Instructions not documented Name Dates Details Instructions not documented Name Dates Details Instructions not documented Name Dates Details Instructions not documented Name Dates Details Instructions not documented Name Dates Details Instructions not documented Name Dates Details Instructions not documented Assessments Diagnosis Other acute sinusitis, recur rence not specified - Primary Procedure Findings Note POST OPERATIVE NOTE: Post Op erative Note: Pre-Operative Diagnosis: Incomplete at 7-8 weeks GA Post-Operative Diagnosis: Incomplete at 7-8 weeks GA Procedure(s) Performed: Suction DandC Findings: Small amount of products of conception aspirated from uterus, normal bimanual exam Surgeon(s): gallito rosales MD Oil Spraying Machine Operator(s)/Resident(s): None Type of Anesthesia: General Estimated Blood Loss (mL): 20 mL Urinary Output (mL): 100 mL Type of Complications: None Specimens Removed: Products of conception Electronic Signatures: Gallito Rosales) (Signed 22-Jan-2019 11:18) Authored: POST OPERATIVE NOTE Last Updated: 22-Jan-2019 11:18 by Gallito Rosales) Chief Complaint c/f ectopicc/f ectopic Chief Complaint and Reason for Visit Chief Complaint MIGRAINE FELT LIKE SHE WAS GOING TO PASS OUT WHILE DRIVING 3 M FU PALPITATION Reason for Visit Palpitations Ventricular tachycardia Chief Complaint 3 M FU PALPITATION 2 M FU ADB PAIN light headed Reason for Visit Palpitations Ventricular tachycardia Ventricular tachycardia Chief Complaint 2 M FU ADB PAIN light headed 3 M FU HYPERSOMNIA Reason for Visit Ventricular tachycar bisi Near syncope Hypersomnolence Ventricular tachycardia Near syncope Chief Complaint light headed 3 M FU HYPERSOMNIA Sleep problems HOSEA; AUTO CPAP *INVENTORY TAGGED 10 NO MODEM Reason for Visit Ventricular tachycar bisi Near syncope BMI 50.0-59.9, adult Obstructive sleep apnea Chief Complaint HYPERSOMNIA Sleep problems OHSEA; AUTO CPAP *INVENTORY TAGGED 10 NO MODEM 1 Y FU SYNCOPE Reason for Visit BMI 50.0-59.9, adult Obstructive sleep apnea HTN (hypertension), benign SVT (supraventricular tachycardia) Syncope and collapse Near syncope Chief Complaint Sleep problems HOSAE; AUTO CPAP *INVENTORY TAGGED 10 NO MODEM 1 Y FU SYNCOPE 3 M FU 5 WEEKS PREG/ BAD CRAMPING Reason for Visit BMI 50.0-59.9, adult Obstructive sleep apnea HTN (hypertension), benign SVT (supraventricular tachycardia) Syncope and collapse Near syncope Allergic rhinitis BMI 50.0-59.9, adult Obstructive sleep apnea Chief Complaint Sleep problems HOSEA; AUTO CPAP *INVENTORY TAGGED 10 NO MODEM 1 Y FU SYNCOPE 3 M FU 5 WEEKS PREG/ BAD CRAMPING PALPITATIONS Reason for Visit BMI 50.0-59.9, adult Obstructive sleep apnea HTN (hypertension), benign SVT (supraventricular tachycardia) Syncope and collapse Near syncope Allergic rhinitis BMI 50.0-59.9, adult Obstructive sleep apnea Chief Complaint Sleep problems HOSEA; AUTO CPAP *INVENTORY TAGGED 10 NO MODEM 1 Y FU SYNCOPE 3 M FU 5 WEEKS PREG/ BAD CRAMPING remote ILR f/u PALPITATIONS REMOTE CHECK Reason for Visit BMI 50.0-59.9, adult Obstructive sleep apnea HTN (hypertension), benign SVT (supraventricular tachycardia) Syncope and collapse Near syncope Allergic rhinitis BMI 50.0-59.9, adult Obstructive sleep apnea Implantable loop recorder present Palpitations SVT (supraventricular tachycardia) Syncope and collapse Ventricular tachycardia Implantable loop recorder present Palpitations SVT (supraventricular tachycardia) Syncope and collapse Chief Complaint HOSEA; AUTO CPAP *INVE NTORY TAGGED 10 NO MODEM 1 Y FU SYNCOPE 3 M FU 5 WEEKS PREG/ BAD CRAMPING remote ILR f/u PALPITATIONS REMOTE CHECK Reason for Visit HTN (hypertension), benign SVT (supraventricular tachycardia) Syncope and collapse Near syncope Allergic rhinitis BMI 50.0-59.9, adult Obstructive sleep apnea Implantable loop recorder present Palpitations SVT (supraventricular tachycardia) Syncope and collapse Ventricular tachycardia Implantable loop recorder present Palpitations SVT (supraventricular tachycardia) Syncope and collapse Chief Complaint HOSEA; AUTO CPAP *INVE NTORY TAGGED 10 NO MODEM 1 Y FU SYNCOPE 3 M FU 5 WEEKS PREG/ BAD CRAMPING remote ILR f/u PALPITATIONS REMOTE CHECK remote ALERT vaginal bleeding Reason for Visit HTN (hypertension), benign SVT (supraventricular tachycardia) Syncope and collapse Near syncope Allergic rhinitis BMI 50.0-59.9, adult Obstructive sleep apnea Implantable loop recorder present Palpitations SVT (supraventricular tachycardia) Syncope and collapse Ventricular tachycardia Implantable loop recorder present Palpitations SVT (supraventricular tachycardia) Syncope and collapse Implantable loop recorder present Palpitations SVT (supraventricular tachycardia) Syncope and collapse Ventricular tachycardia Near syncope Chief Complaint 1 Y FU SYNCOPE 3 M FU 5 WEEKS PREG/ BAD CRAMPING REMOTE CHECK remote ILR f/u PALPITATIONS REMOTE CHECK remote ALERT vaginal bleeding MIGRAINE Reason for Visit HTN (hypertension), benign SVT (supraventricular tachycardia) Syncope and collapse Near syncope Allergic rhinitis BMI 50.0-59.9, adult Obstructive sleep apnea Implantable loop recorder present Palpitations SVT (supraventricular tachycardia) Syncope and collapse Ventricular tachycardia Implantable loop recorder present Palpitations SVT (supraventricular tachycardia) Syncope and collapse Implantable loop recorder present Palpitations SVT (supraventricular tachycardia) Syncope and collapse Ventricular tachycardia Near syncope Chief Complaint remote ALERT vaginal bleeding MIGRAINE REMOTE CHECK 3 M FU remote ILR ALERT ABNORMAL MATERNAL GLUCOSE TOLERANCE Reason for Visit Implantable loop rec order present Palpitations SVT (supraventricular tachycardia) Syncope and collapse Ventricular tachycardia Near syncope Implantable loop recorder present Palpitations SVT (supraventricular tachycardia) Syncope and collapse HTN (hypertension), benign Implantable loop recorder present SVT (supraventricular tachycardia) Implantable loop recorder present SVT (supraventricular tachycardia) Syncope and collapse Near syncope Chief Complaint MIGRAINE REMOTE CHECK 3 M FU remote ILR ALERT ABNORMAL MATERNAL GLUCOSE TOLERANCE CHEST PAIN Reason for Visit Implantable loop rec order present Palpitations SVT (supraventricular tachycardia) Syncope and collapse HTN (hypertension), benign Implantable loop recorder present SVT (supraventricular tachycardia) Implantable loop recorder present SVT (supraventricular tachycardia) Syncope and collapse Near syncope Chief Complaint remote ILR ALERT ABNORMAL MATERNAL GLUCOSE TOLERANCE CHEST PAIN R/O RUPTURE Reason for Visit Implantable loop rec order present SVT (supraventricular tachycardia) Syncope and collapse Near syncope Chief Complaint CHEST PAIN R/O RUPTURE assessment assessment assessment, supply concerns FEVER Reason for Visit Care and examination of lactating mother Care and examination of lactating mother Other disorders of Care and examination of lactating mother Other disorders of Chief Complaint Pacer Check Remote 1 Y FU Reason for Visit Implantable loop rec order present SVT (supraventricular tachycardia) Ventricular tachycardia Chief Complaint Admit Date hypertension, migraine August 18 8:11pm R SIDED CP, SOB September 17, 2024 4: 13pm Pacer Check Remote September 17, 2024 4: 52pm Atrial fibrillation November 18, 2024 9:5 0am INT LAB ORDERS November 18, 2024 10: 41am Reason for Visit Admit Date HTN (hypertension), benign November 18, 2 025 9:50am Implantable loop recorder present November 18, 2024 9:50am SVT (supraventricular tachycardia) November 18, 2024 9:50am Ventricular tachycardia November 18, 2024 9:50am Chief Complaint Admit Date hypertension, migraine August 18 8:11pm R SIDED CP, SOB September 17, 2024 4: 13pm Pacer Check Remote September 17, 2024 4: 52pm Atrial fibrillation November 18, 2024 9:5 0am INT LAB ORDERS November 18, 2024 10: 41am SYNCOPE December 03, 2024 8:2 1pm Chief Complaint Admit Date Atrial fibrillation November 18, 2024 9:5 0am INT LAB ORDERS November 18, 2024 10: 41am SYNCOPE December 03, 2024 8:2 1pm S/P SAMARITIAN 01/06January 08, 2025 1:47pm CARDIAC ARRHYTHMIA January 11, 2025 4:03pm CARDIAC ARRHYTHMIA January 11, 2025 4:07pm CARDIAC ARRHYTHMIA January 11, 2025 4:58pm CARDIAC ARRHYTHMIA January 12, 2025 9:29am CARDIAC ARRHYTHMIA January 12, 2025 9:58am Reason for Visit Admit Date Implantable loop recorder present November 18, 2024 9:50am SVT (supraventricular tachycardia) November 18, 2024 9:50am Ventricular tachycardia November 18, 2024 9:50am HTN (hypertension), benign November 18, 2 025 9:50am SVT (supraventricular tachycardia) January 082024 1:47pm HTN (hypertension), benign January 08, 2025 1:47pm Arrhythmia January 11, 2025 4:03pm Palpitations January 11, 2025 4:03pm SVT (supraventricular tachycardia) January 112024 4:03pm Ventricular tachycardia January 11, 2025 4: 03pm Near syncope January 11, 2025 4:03pm Chief Complaint Admit Date Atrial fibrillation November 18, 2024 9:5 0am INT LAB ORDERS November 18, 2024 10: 41am SYNCOPE December 03, 2024 8:2 1pm S/P SAMARITIAN 01/06January 08, 2025 1:47pm CARDIAC ARRHYTHMIA January 11, 2025 4:03pm CARDIAC ARRHYTHMIA January 11, 2025 4:07pm CARDIAC ARRHYTHMIA January 11, 2025 4:58pm CARDIAC ARRHYTHMIA January 12, 2025 9:29am CARDIAC ARRHYTHMIA January 12, 2025 9:58am SVT/Syncope-Anamaria January 16, 2025 11:57a m 3 M FU February 20, 2025 3:57 pm Chief Complaint Admit Date S/P SAMARITIAN 01/06January 08, 2025 1:47pm CARDIAC ARRHYTHMIA January 11, 2025 4:03pm CARDIAC ARRHYTHMIA January 11, 2025 4:07pm CARDIAC ARRHYTHMIA January 11, 2025 4:58pm CARDIAC ARRHYTHMIA January 12, 2025 9:29am CARDIAC ARRHYTHMIA January 12, 2025 9:58am 30 DAY MONITOR January 16, 2025 9:00am SVT/Syncope-Anamaria January 16, 2025 11:57a m 3 M FU February 20, 2025 3:57 pm 1 Y FU April 21, 2025 1: 05pm Reason for Visit Admit Date SVT (supraventricular tachycardia) January 082024 1:47pm HTN (hypertension), benign January 08, 2025 1:47pm Arrhythmia January 11, 2025 4:03pm Palpitations January 11, 2025 4:03pm SVT (supraventricular tachycardia) January 112024 4:03pm Ventricular tachycardia January 11, 2025 4: 03pm Near syncope January 11, 2025 4:03pm SVT (supraventricular tachycardia) February 20, 2025 3:57pm HTN (hypertension), benign February 20 3:57pm Medications Administered Section Inactive Administered Medications - up to 3 most recent administrations Medication Order MAR Action Action Date Dose Rate Site onabotulinum toxin type A 200 Units injection (BOTOX) 200 Units, INTRAMUSCULAR, ONCE, 1 dose, On Sun02/28/22 at 0900, This record documents the total dose provided to patient. See progress note for specific locations and amounts administered. Given 02/28/2022 9:00 AM EDT 155 Units Othe r Inactive Administered Medications - up to 3 most recent administrations Medication Order MAR Action Action Date Dose Rate Site onabotulinum toxin type A 200 Units injection (BOTOX) 200 Units, INTRAMUSCULAR, ONCE, 1 dose, On Sun06/19/22 at 1400, This record documents the total dose provided to patient. See progress note for specific locations and amounts administered. Given 06/19/2022 2:00 PM EDT 200 Units Othe r Inactive Administered Medications - up to 3 most recent administrations Medication Order MAR Action Action Date Dose Rate Site lidocaine 10 mg/mL (1 %) 60 mg injection (XYLOCAINE) 60 mg (6 mL), INTRADERMAL, ONCE, 1 dose, On Sun02/27/23 at 1000 Given 02/27/2023 10:00 AM EDT 60 mg Other Reason for Referral Specialty Diagnoses / Procedures Referred By Contac t Referred To Contact Neurology Diagnoses Spells of decreased attentiveness Procedures CONSULT TO NEUROLOGY OFFICE/OUTPATIENT [facility] 60 MINUTES Dalila Fernandez, FORMULA CHECKER.SCHEDULE CHECKER [address] [place] [address] Referral ID Status Reason Start Date Expiration Date Visits Requested Visits Authorized [id number] Authorized PCP Requested Referral 4 08/01/2025 1 1 Specialty Diagnoses / Procedures Referred By Contac t Referred To Contact Diagnoses Class 3 severe obesity with body mass index (BMI) of 50.0 to 59.9 in adult, unspecified obesity type, unspecified whether serious comorbidity present (HCC) Procedures CONSULT TO [facility] WEIGHT [facility]NAGEMENT PROGRAM OFFICE/OUTPATIENT [facility] 60 MINUTES Washington Mondragon APRN.SCHEDULE CHECKER [address] [place] [address] Referral ID Status Reason Start Date Expiration Date Visits Requested Visits Authorized [id number] Authorized PCP Requested Referral Auto-Generate d Referral 04/30/2024 04/30/2025 1 1 Specialty Diagnoses / Procedures Referred By Contac t Referred To Contact [facility] Diagnoses Abnormal uterine bleeding Procedures PELVIC US [facility] US PELVIC NONOBSTETRIC REAL-TIME IMAGE COMPLETE [place] Mondragon APRN.SCHEDULE CHECKER [address] [place] [address] [facility] [address] [place] [address] Referral ID Status Reason Start Date Expiration Date Visits Requested Visits Authorized [id number] Authorized Auto-Generat ed Referral 04/30/2024 04/30/2025 1 1 Specialty Diagnoses / Procedures Referred By Contac t Referred To Contact Cardiology Diagnoses History of pre-eclampsia Procedures CONSULT TO CARDIOLOGY OFFICE/OUTPATIENT NEW HIGH MDM 60-74 MINUTES [place] Mondragon APRN.SCHEDULE CHECKER [address] [place] [address] Referral ID Status Reason Start Date Expiration Date Visits Requested Visits Authorized [id number] Authorized PCP Requested Referral 3 08/28/2024 1 1 Additional Source Comments INFORMATION SOURCE (unrecogn ized section and content) DATE CREATED AUTHOR 03/06/2018 [facility] DATE CREATED AUTHOR AUTHOR'S ORGANIZ ATION 07/09/2018 [facility] DATE CREATED AUTHOR AUTHOR'S ORGANIZ ATION 06/12/2019 [facility] DATE CREATED AUTHOR AUTHOR'S ORGANIZ ATION 04/01/2021 [facility] DATE CREATED AUTHOR AUTHOR'S ORGANIZ ATION 04/15/2021 [facility] DATE CREATED AUTHOR AUTHOR'S ORGANIZ ATION 04/18/2021 [facility] DATE CREATED AUTHOR AUTHOR'S ORGANIZ ATION 06/08/2021 [employer] DATE CREATED AUTHOR AUTHOR'S ORGANIZ ATION 05/20/2022 [facility] ([place]) DATE CREATED AUTHOR AUTHOR'S ORGANIZ ATION 05/16/2023 [facility] [employer] [facility] DATE CREATED AUTHOR AUTHOR'S ORGANIZ ATION 09/01/2023 [facility] DATE CREATED AUTHOR AUTHOR'S ORGANIZ ATION 10/02/2023 [facility] DATE CREATED AUTHOR AUTHOR'S ORGANIZ ATION 04/11/2024 [facility] DATE CREATED AUTHOR AUTHOR'S ORGANIZ ATION 01/14/2025 [facility] DATE CREATED AUTHOR AUTHOR'S ORGANIZ ATION 01/14/2025 [facility] DATE CREATED AUTHOR AUTHOR'S ORGANIZ ATION 03/19/2025 [facility] DATE CREATED AUTHOR AUTHOR'S ORGANIZ ATION 03/21/2025 [facility] DATE CREATED AUTHOR AUTHOR'S ORGANIZ ATION 04/19/2025 [facility] DATE CREATED AUTHOR AUTHOR'S ORGANIZ ATION 04/22/2025 [facility] <item> Privacy Markings (unrecogniz ed section and content) Section Author: Lisa John PROHIBITION ON REDISCLOSURE OF CONFIDENTIAL INFORMATION This notice accompanies a disclosure of information concerning a client made to you with the consent of such client. Goals (unrecognized section and content) Goals may be documented in a n alternate sectionGoals may be documented in an alternate section No data available for this section No data available for this sectionGoals may be documented in an alternate sectionGoals may be documented in an alternate sectionGoals may be documented in an alternate sectionGoals may be documented in an alternate sectionGoals may be documented in an alternate sectionGoals may be documented in an alternate sectionGoals may be documented in an alternate sectionGoals may be documented in an alternate sectionGoals may be documented in an alternate sectionGoals may be documented in an alternate sectionGoals may be documented in an alternate sectionGoals may be documented in an alternate sectionGoals may be documented in an alternate sectionGoals may be documented in an alternate sectionGoals may be documented in an alternate sectionGoals may be documented in an alternate section Source Comments (unrecognize d section and content) In the event this informatio n is protected by the Federal Confidentiality of Alcohol and Drug Abuse Patient Records regulations: The Federal rules restrict any use of the information to criminally investigate or prosecute any alcohol or drug abuse patient.[facility]In the event this information is protected by the Federal Confidentiality of Alcohol and Drug Abuse Patient Records regulations: The Federal rules restrict any use of the information to criminally investigate or prosecute any alcohol or drug abuse patient.[facility] ColumbusIn the event this information is protected by the Federal Confidentiality of Alcohol and Drug Abuse Patient Records regulations: The Federal rules restrict any use of the information to criminally investigate or prosecute any alcohol or drug abuse patient.[facility] ColumbusIn the event this information is protected by the Federal Confidentiality of Alcohol and Drug Abuse Patient Records regulations: The Federal rules restrict any use of the information to criminally investigate or prosecute any alcohol or drug abuse patient.[facility] ColumbusIn the event this information is protected by the Federal Confidentiality of Alcohol and Drug Abuse Patient Records regulations: The Federal rules restrict any use of the information to criminally investigate or prosecute any alcohol or drug abuse patient.[facility] ColumbusIn the event this information is protected by the Federal Confidentiality of Alcohol and Drug Abuse Patient Records regulations: The Federal rules restrict any use of the information to criminally investigate or prosecute any alcohol or drug abuse patient.[facility] ColumbusIn the event this information is protected by the Federal Confidentiality of Alcohol and Drug Abuse Patient Records regulations: The Federal rules restrict any use of the information to criminally investigate or prosecute any alcohol or drug abuse patient.[facility] ColumbusIn the event this information is protected by the Federal Confidentiality of Alcohol and Drug Abuse Patient Records regulations: The Federal rules restrict any use of the information to criminally investigate or prosecute any alcohol or drug abuse patient.[facility] ColumbusIn the event this information is protected by the Federal Confidentiality of Alcohol and Drug Abuse Patient Records regulations: The Federal rules restrict any use of the information to criminally investigate or prosecute any alcohol or drug abuse patient.[facility] ColumbusIn the event this information is protected by the Federal Confidentiality of Alcohol and Drug Abuse Patient Records regulations: The Federal rules restrict any use of the information to criminally investigate or prosecute any alcohol or drug abuse patient.[facility] ColumbusIn the event this information is protected by the Federal Confidentiality of Alcohol and Drug Abuse Patient Records regulations: The Federal rules restrict any use of the information to criminally investigate or prosecute any alcohol or drug abuse patient.[facility] ColumbusIn the event this information is protected by the Federal Confidentiality of Alcohol and Drug Abuse Patient Records regulations: The Federal rules restrict any use of the information to criminally investigate or prosecute any alcohol or drug abuse patient.[facility] ColumbusIn the event this information is protected by the Federal Confidentiality of Alcohol and Drug Abuse Patient Records regulations: The Federal rules restrict any use of the information to criminally investigate or prosecute any alcohol or drug abuse patient.[facility] ColumbusIn the event this information is protected by the Federal Confidentiality of Alcohol and Drug Abuse Patient Records regulations: The Federal rules restrict any use of the information to criminally investigate or prosecute any alcohol or drug abuse patient.[facility] ColumbusIn the event this information is protected by the Federal Confidentiality of Alcohol and Drug Abuse Patient Records regulations: The Federal rules restrict any use of the information to criminally investigate or prosecute any alcohol or drug abuse patient.[facility] ColumbusIn the event this information is protected by the Federal Confidentiality of Alcohol and Drug Abuse Patient Records regulations: The Federal rules restrict any use of the information to criminally investigate or prosecute any alcohol or drug abuse patient.[facility] ColumbusIn the event this information is protected by the Federal Confidentiality of Alcohol and Drug Abuse Patient Records regulations: The Federal rules restrict any use of the information to criminally investigate or prosecute any alcohol or drug abuse patient.[facility] ColumbusIn the event this information is protected by the Federal Confidentiality of Alcohol and Drug Abuse Patient Records regulations: The Federal rules restrict any use of the information to criminally investigate or prosecute any alcohol or drug abuse patient.[facility] ColumbusIn the event this information is protected by the Federal Confidentiality of Alcohol and Drug Abuse Patient Records regulations: The Federal rules restrict any use of the information to criminally investigate or prosecute any alcohol or drug abuse patient.[facility] ColumbusIn the event this information is protected by the Federal Confidentiality of Alcohol and Drug Abuse Patient Records regulations: The Federal rules restrict any use of the information to criminally investigate or prosecute any alcohol or drug abuse patient.[facility] ColumbusIn the event this information is protected by the Federal Confidentiality of Alcohol and Drug Abuse Patient Records regulations: The Federal rules restrict any use of the information to criminally investigate or prosecute any alcohol or drug abuse patient.[facility] ColumbusIn the event this information is protected by the Federal Confidentiality of Alcohol and Drug Abuse Patient Records regulations: The Federal rules restrict any use of the information to criminally investigate or prosecute any alcohol or drug abuse patient.[facility] ColumbusIn the event this information is protected by the Federal Confidentiality of Alcohol and Drug Abuse Patient Records regulations: The Federal rules restrict any use of the information to criminally investigate or prosecute any alcohol or drug abuse patient.[facility] ColumbusIn the event this information is protected by the Federal Confidentiality of Alcohol and Drug Abuse Patient Records regulations: The Federal rules restrict any use of the information to criminally investigate or prosecute any alcohol or drug abuse patient.[facility] ColumbusIn the event this information is protected by the Federal Confidentiality of Alcohol and Drug Abuse Patient Records regulations: The Federal rules restrict any use of the information to criminally investigate or prosecute any alcohol or drug abuse patient.[facility] ColumbusIn the event this information is protected by the Federal Confidentiality of Alcohol and Drug Abuse Patient Records regulations: The Federal rules restrict any use of the information to criminally investigate or prosecute any alcohol or drug abuse patient.[facility] ColumbusIn the event this information is protected by the Federal Confidentiality of Alcohol and Drug Abuse Patient Records regulations: The Federal rules restrict any use of the information to criminally investigate or prosecute any alcohol or drug abuse patient.[facility] ColumbusIn the event this information is protected by the Federal Confidentiality of Alcohol and Drug Abuse Patient Records regulations: The Federal rules restrict any use of the information to criminally investigate or prosecute any alcohol or drug abuse patient.[facility] ColumbusIn the event this information is protected by the Federal Confidentiality of Alcohol and Drug Abuse Patient Records regulations: The Federal rules restrict any use of the information to criminally investigate or prosecute any alcohol or drug abuse patient.[facility] ColumbusIn the event this information is protected by the Federal Confidentiality of Alcohol and Drug Abuse Patient Records regulations: The Federal rules restrict any use of the information to criminally investigate or prosecute any alcohol or drug abuse patient.[facility] ColumbusIn the event this information is protected by the Federal Confidentiality of Alcohol and Drug Abuse Patient Records regulations: The Federal rules restrict any use of the information to criminally investigate or prosecute any alcohol or drug abuse patient.[facility] ColumbusIn the event this information is protected by the Federal Confidentiality of Alcohol and Drug Abuse Patient Records regulations: The Federal rules restrict any use of the information to criminally investigate or prosecute any alcohol or drug abuse patient.[facility] ColumbusIn the event this information is protected by the Federal Confidentiality of Alcohol and Drug Abuse Patient Records regulations: The Federal rules restrict any use of the information to criminally investigate or prosecute any alcohol or drug abuse patient.[facility] ColumbusIn the event this information is protected by the Federal Confidentiality of Alcohol and Drug Abuse Patient Records regulations: The Federal rules restrict any use of the information to criminally investigate or prosecute any alcohol or drug abuse patient.[facility] ColumbusIn the event this information is protected by the Federal Confidentiality of Alcohol and Drug Abuse Patient Records regulations: The Federal rules restrict any use of the information to criminally investigate or prosecute any alcohol or drug abuse patient.[facility] ColumbusIn the event this information is protected by the Federal Confidentiality of Alcohol and Drug Abuse Patient Records regulations: The Federal rules restrict any use of the information to criminally investigate or prosecute any alcohol or drug abuse patient.[facility] ColumbusIn the event this information is protected by the Federal Confidentiality of Alcohol and Drug Abuse Patient Records regulations: The Federal rules restrict any use of the information to criminally investigate or prosecute any alcohol or drug abuse patient.[facility] ColumbusIn the event this information is protected by the Federal Confidentiality of Alcohol and Drug Abuse Patient Records regulations: The Federal rules restrict any use of the information to criminally investigate or prosecute any alcohol or drug abuse patient.[facility] ColumbusIn the event this information is protected by the Federal Confidentiality of Alcohol and Drug Abuse Patient Records regulations: The Federal rules restrict any use of the information to criminally investigate or prosecute any alcohol or drug abuse patient.[facility] ColumbusIn the event this information is protected by the Federal Confidentiality of Alcohol and Drug Abuse Patient Records regulations: The Federal rules restrict any use of the information to criminally investigate or prosecute any alcohol or drug abuse patient.[facility] ColumbusIn the event this information is protected by the Federal Confidentiality of Alcohol and Drug Abuse Patient Records regulations: The Federal rules restrict any use of the information to criminally investigate or prosecute any alcohol or drug abuse patient.[facility] ColumbusIn the event this information is protected by the Federal Confidentiality of Alcohol and Drug Abuse Patient Records regulations: The Federal rules restrict any use of the information to criminally investigate or prosecute any alcohol or drug abuse patient.[facility] ColumbusIn the event this information is protected by the Federal Confidentiality of Alcohol and Drug Abuse Patient Records regulations: The Federal rules restrict any use of the information to criminally investigate or prosecute any alcohol or drug abuse patient.[facility] ColumbusIn the event this information is protected by the Federal Confidentiality of Alcohol and Drug Abuse Patient Records regulations: The Federal rules restrict any use of the information to criminally investigate or prosecute any alcohol or drug abuse patient.[facility] ColumbusIn the event this information is protected by the Federal Confidentiality of Alcohol and Drug Abuse Patient Records regulations: The Federal rules restrict any use of the information to criminally investigate or prosecute any alcohol or drug abuse patient.[facility] ColumbusIn the event this information is protected by the Federal Confidentiality of Alcohol and Drug Abuse Patient Records regulations: The Federal rules restrict any use of the information to criminally investigate or prosecute any alcohol or drug abuse patient.[facility] ColumbusIn the event this information is protected by the Federal Confidentiality of Alcohol and Drug Abuse Patient Records regulations: The Federal rules restrict any use of the information to criminally investigate or prosecute any alcohol or drug abuse patient.[facility] ColumbusIn the event this information is protected by the Federal Confidentiality of Alcohol and Drug Abuse Patient Records regulations: The Federal rules restrict any use of the information to criminally investigate or prosecute any alcohol or drug abuse patient.[facility] ColumbusIn the event this information is protected by the Federal Confidentiality of Alcohol and Drug Abuse Patient Records regulations: The Federal rules restrict any use of the information to criminally investigate or prosecute any alcohol or drug abuse patient.[facility] ColumbusIn the event this information is protected by the Federal Confidentiality of Alcohol and Drug Abuse Patient Records regulations: The Federal rules restrict any use of the information to criminally investigate or prosecute any alcohol or drug abuse patient.[facility] ColumbusIn the event this information is protected by the Federal Confidentiality of Alcohol and Drug Abuse Patient Records regulations: The Federal rules restrict any use of the information to criminally investigate or prosecute any alcohol or drug abuse patient.[facility] Reason for Visit (unrecogniz ed section and content) Reason Comments Infusion Headache Specialty Diagnoses / Procedures Referred By Contac t Referred To Contact Neurology / HEADACHE Diagnoses Non-DHE Infusion Day #1 Procedures INFUSION HEADACHE Self Neur Headache Main S2 [address] [id number] Referral ID Status Reason Start Date Expiration Date Visits Requested Visits Authorized [id number] Authorized Patient Cleared - INN Insurance Found 4 09/09/2024 99 99 Reason Comments Botox Injection Migraine Specialty Diagnoses / Procedures Referred By Contac t Referred To Contact Neurology / HEADACHE Diagnoses Chronic migraine without aura, intractable, without status migrainosus G43.719 - Chronic migraine without aura, intractable, without status migrainosus Procedures BOTULINUM TOXIN A PER 1 UNIT CHEMODERVATE FACIAL/TRIGEM/CERV MUSC MIGRAINE Renewal due 10/11/2021 Botox 200 units every 12 weeks for 1 year through [facility] buy and bill Preempt protocol [id number] Procedure -07534 chemodervate facial/trigem/cerv musc migraine Aarti Huertas PA-C [address] [id number] Aarti Huertas PA-C [address] [id number] Referral ID Status Reason Start Date Expiration Date V isits Requested Visits Authorized [id number] Authorized 10/26/2021 10/26/2022 5 5 Reason Comments Preparations For Procedures SVT Ablation Reason Comments Orders Reason Comments Cardiology Follow Up clearance Reason Onset Date Comments follow up 02/13/2022 Reason Comments Botox Injection Chronic Migraine Reason Comments Referral Request Botox renewal Reason Comments Established Patient Follow-Up Chronic Migraine Specialty Diagnoses / Procedures Referred By Contac t Referred To Contact Lab Diagnoses with history of infertility in first trimester Supervision of other high risk pregnancies, first trimester Procedures Genetic Sendout: [employer] Kerry Robbins MD [address] [address] Referral ID Status Reason Start Date Expiration Date V isits Requested Visits Authorized [id number] Open Specialty Services Required 11/20/2022 11/20/2023 1 1 Reason Comments Hypertension Reason Comments Headache Specialty Diagnoses / Procedures [facility] To Contact Diagnoses Chronic migraine without aura Procedures . Mary Dao, [place] [address] Ach H2 Antepartum [address] [place] [address] Referral ID Status Reason Start Date Expiration Date Visits Re quested Visits Authorized [id number] 1 Reason Comments OMT Patient here for OMT on right shoulder and neck. Reason Comments Follow Up Reason Comments Follow Up Headache Reason Comments OMT Reason Comments Toothache Reason Comments Filling Reason Comments Patient Update Reason Comments Contractions Reason Comments Decreased Movement Specialty Diagnoses / Procedures [facility] Referred To Contact Diagnoses 37 weeks gestation of Procedures . Marychuy Burleson MD [address] [place] [address] Ach H2 Labor & Deliver [address] [place] [address] Referral ID Status Reason Start Date Expiration Date Visits Re quested Visits Authorized [id number] 1 1 Reason Comments Scheduled Induction Specialty Diagnoses / Procedures [facility] Referred To Contact Diagnoses 37 weeks gestation of Procedures . Marychuy Burleson MD [address] [place] [address] Ach [facility] Labor [facility] Deliver [address] [place] [address] Reason Comments Established Patient Follow Up Chronic Migraine Nerve Block Reason Comments New Patient Establish care, chec k incision Reason Comments Migraine Reason Comments Referral Request Botox Injection Reason Comments 4th toe left foot pain Stubbed on bed fr nathalia yesterday Reason Comments Botox Injection Specialty Diagnoses / Procedures [facility] Ref[facility] To Contact HEADACHE Diagnoses Chronic migraine without aura, intractable, without status migrainosus Botox renewal. Botox 200 units every 12 weeks for 1 year through [facility] buy and bill Preempt protocol [id number] Procedure -33722 chemodervate facial/trigem/cerv musc migraine Procedures BOTULINUM TOXIN A PER 1 UNIT CHEMODERVATE FACIAL/TRIGEM/CERV MUSC MIGRAINE Dalila Fernandez, FORMULA CHECKER.SCHEDULE CHECKER [address] [place] [address] Neur Headache Main S2 [address] [phone] Referral ID Status Reason Start Date Expiration Date V isits Requested Visits Authorized [id number] Authorized 11/27/2023 11/26/2024 5 5 Reason Comments Vaginal Problem Reason Comments Botox Injection Specialty Diagnoses / Procedures Referred By Contac t Referred To Contact HEADACHE Diagnoses Chronic migraine without aura, intractable, without status migrainosus Botox renewal. Botox 200 units every 12 weeks for 1 year through [facility] buy and bill Preempt protocol [id number] Procedure -94178 chemodervate facial/trigem/cerv musc migraine Procedures BOTULINUM TOXIN A PER 1 UNIT CHEMODERVATE FACIAL/TRIGEM/CERV MUSC MIGRAINE Dailla Fernandez, FORMULA CHECKER.SCHEDULE CHECKER [address] [place] [address] Neur Headache Main S[address] [place] [address] Reason Comments Patient Request Reason Comments Headache Infusion Specialty Diagnoses / Procedures Referred By Contac t Referred To Contact Neurology / HEADACHE Diagnoses Non-DHE Infusion Day #1 Procedures INFUSION HEADACHE Self Neur Headache Main [address] [place] [address] Reason Comments Chest Congestion Chest pain, sob x 5 days Reason Comments New Patient referral per [facility] for SVT Reason Comments Syncope Patient brought in b y AFD, states she has a history of SVT and Afib, was at work and started to feel like her heart is racing, sat down for twenty minutes and had a syncopal event while sitting, EMS gave 4mg zofran, patient complains of headache on arrival Specialty Diagnoses / Procedures Referred By Contac t Referred To Contact HEADACHE Diagnoses Chronic migraine without aura, intractable, without status migrainosus New insurance. Botox renewal. Botox 200 units every 12 weeks for 1 year through [facility] buy and bill Preempt protocol [id number] Procedure -78680 chemodervate facial/trigem/cerv musc migraine Procedures BOTULINUM TOXIN A PER 1 UNIT CHEMODERVATE FACIAL/TRIGEM/CERV MUSC MIGRAINE Dalila Fernandez, FORMULA CHECKER.SCHEDULE CHECKER [address] [place] [address] Phone: tel: fax: Neurology [address] [id number] Phone: tel: fax: Referral ID Status Reason Start Date Expiration Date V isits Requested Visits Authorized [id number] Pending Review 10/08/2024 10/07/2025 5 5 Reason Comments Preparations For Procedures Reason Onset Date Comments Appointment 02/25/2025 Patient Update 02/25/2025 Reason Comments Patient Left Without Being Seen Reason Comments Chronic Migraine Specialty Diagnoses / Procedures Referred By Contac t Referred To Contact Neurology / HEADACHE Diagnoses NON-DHE 1 Procedures INFUSION HEADACHE Self Neurology [address] [id number] Phone: tel: fax: Referral ID Status Reason Start Date Expiration Date Visits Requested Visits Authorized [id number] Pending Review Pending Patient Cleared - Admin/Chair man/Directo r advise to proceed or did not respond 03/10/2025 06/08/2025 3 3 Reason Comments Appointment Care Teams (unrecognized sec tion and content) Brick Tender Relationship Specialty Start Date End Date Mega Weeks PCP - General Internal Medicine 07/24/17 John Conrad 176Elie LINDO [address] [address] Specialty Retail Client Solutions Analyst Cardiology 07/13/21 Brick Tender Relationship Specialty Start Date End Date Mega Weeks PCP - General Internal Medicine 07/24/17 Anamaria, John S [address] [place] [address] Specialty Retail Client Solutions Analyst Cardiology 07/13/21 Nitin Rock MD [address] [place] [address] Specialty Retail Client Solutions Analyst Cardiology 01/21/22 Brick Tender Relationship Specialty Start Date End Date Mega Weeksim PCP - General Internal Medicine 07/24/17 [facility], John S [address] [place] [address] Specialty Retail Client Solutions Analyst Cardiology 07/13/21 Nitin Rock MD [address] [place] [address] Specialty Retail Client Solutions Analyst Cardiology 01/21/22 Brick Tender Relationship Specialty Start Date End Date Mega Weeks PCP - General Internal Medicine 07/24/17 Anamaria, [place] S [address] [place] [address] Specialty Retail Client Solutions Analyst Cardiology 07/13/21 Nitin Rock MD [address] [place] [address] Specialty Retail Client Solutions Analyst Cardiology 01/21/22 Brick Tender Relationship Specialty Start Date End Date Mega Weeksim PCP - General Internal Medicine 07/24/17 Anamaria, John S [address] [place] [address] Specialty Retail Client Solutions Analyst Cardiology 07/13/21 Nitin Rock MD [address] [place] [address] Specialty Retail Client Solutions Analyst Cardiology 01/21/22 Brick Tender Relationship Specialty Start Date End Date Mega Weeksim PCP - General Internal Medicine 07/24/17 Anamaria, John S [address] [place] [address] Specialty Retail Client Solutions Analyst Cardiology 07/13/21 Nitin Rock MD [address] [place] [address] (Fax) Specialty Retail Client Solutions Analyst Cardiology 01/21/22 Brick Tender Relationship Specialty Start Date End Date Mega Weeksahim PCP - General Internal Medicine 07/24/17 Anamaria, John S [address] [place] [address] Specialty Retail Client Solutions Analyst Cardiology 07/13/21 Nitin Rock MD [address] [place] [address] (Fax) Specialty Retail Client Solutions Analyst Cardiology 01/21/22 Brick Tender Relationship Specialty Start Date End Date Mega Weeksahim PCP - General Internal Medicine 07/24/17 Anamaria, John S [address] [place] [address] Specialty Retail Client Solutions Analyst Cardiology 07/13/21 Nitin Rock MD [address] [place] [address] Specialty Retail Client Solutions Analyst Cardiology 01/21/22 Brick Tender Relationship Specialty Start Date End Date Mega Weeks PCP - General Internal Medicine 07/24/17 John Conrad [address] [place] [address] Specialty Retail Client Solutions Analyst Cardiology 07/13/21 Nitin Rock MD [address] [place] [address] Specialty Retail Client Solutions Analyst Cardiology 01/21/22 Team Status: Inactive Member Role Status Dates Alison Díaz PA, PA Attending Provider Active Out of Town Doctor Primary Care Provider, Referring Pr ovider Active Team Status: Inactive Member Role Status Dates Charlie Howard SPECIMEN COLLECTOR, SPECIMEN COLLECTOR-C Attending Provider Active Out of Town Doctor Primary Care Provider Active Team Status: Inactive Member Role Status Dates Dr. Sukhdev Bernal MD Attending Provider, Referring Pr ovider Active No Primary Care Physician Primary Care Provider Active Team Status: Inactive Member Role Status Dates Bárbara Swartz Attending Provider Active Team Status: Inactive Member Role Status Dates Bárbara Swartz Attending Provider Active Dr. John Conrad MD Referring Provider Active Team Status: Inactive Member Role Status Dates Out of Town Doctor Primary Care Provider Active Charlie Howard NP, SPECIMEN COLLECTOR-C Attending Provider Active Team Status: Inactive Member Role Status Dates Dr. John Conrad MD Attending Provider, Referring Pro vider Active No Primary Care Physician Primary Care Provider Active Team Status: Inactive Member Role Status Dates No Primary Care Physician Primary Care Provider Active Dr. Richy Dumont MD Attending Provider, Emergency Provider Active Team Status: Inactive Member Role Status Dates No Primary Care Physician Primary Care Provider Active Dr. Tommy Aguayo MD Attending Provider Active Team Status: Inactive Member Role Status Dates Dr. Doni Nieves DO Emergency Provider Active DESI CHOWDHURY Primary Care Provider Active Team Status: Inactive Member Role Status Dates Dr. Doni Nieves DO Attending Provider, Emergency Pr ovider Active DESI CHOWDHURY Primary Care Provider Active Team Status: Inactive Member Role Status Dates BÁRBARA MARLON , SPECIMEN COLLECTOR-C Attending Provider Active Team Status: Active Member Role Status Dates No Primary Care Physician Primary Care Provider Active Team Status: Inactive Member Role Status Dates Bárbara Swartz Active Dr. John Conrad MD Attending Provider, Referring Pro vider Active Team Status: Inactive Member Role Status Dates No Primary Care Physician Primary Care Provider Active Dr. Low Esposito DO Emergency Provider Active Brick Tender Relationship Specialty [place] [address] [facility] [place] [address] PCP - General Internal Medicine 10/05/22 Brick Tender Relationship Specialty [place] [address] [facility] [place] [address] PCP - General Internal Medicine 10/05/22 FranklynFarzana blanc [facility] [place] [place] [address] Genetic Counselor Genetics 11/03/22 Brick Tender Relationship Specialty [place] [address] [facility] [place] [address] PCP - General Internal Medicine 10/05/22 FranklynFarzana blanc [facility] [place] [address] Genetic Counselor Genetics 11/03/22 Brick Tender Relationship Specialty [place] [address] [facility] [place] [address] PCP - General Internal Medicine 10/05/22 FranklynFarzana blanc [facility] [place] [address] Genetic Counselor Genetics 11/03/22 Team Status: Active Member Role Status Dates No Primary Care Physician Primary Care Provider Active Dr. John Conrad MD Attending Provider Active Team Status: Inactive Member Role Status Dates No Primary Care Physician Primary Care Provider Active Dr. Low Esposito DO Attending Provider, Emergency Provider Active Team Status: Inactive Member Role Status Dates No Primary Care Physician Primary Care Provider Active Dr. Dhiraj Quiroga MD Emergency Provider Active Brick Tender Relationship Specialty [place] [address] [facility] [place] [address] PCP - General 05/20/19 Brick Tender Relationship Specialty [place] [address] [facility] [place] [address] PCP - General 05/20/19 Team Status: Active Member Role Status Dates MEGA WEEKS Primary Care Provider Active Team Status: Inactive Member Role Status Dates Out of Town Doctor Referring Provider Active Alison Díaz PA, PA Attending Provider Active No Primary Care Physician Primary Care Provider Active Team Status: Inactive Member Role Status Dates No Primary Care Physician Primary Care Provider, Refer ring Provider Active Bárbara Swartz Active Dr. John Conrad MD Attending Provider Active Team Status: Inactive Member Role Status Dates No Primary Care Physician Primary Care Provider Active Dr. Dhiraj Quiroga MD Attending Provider, Emergency Provi rod Active Team Status: Inactive Member Role Status Dates JESÚS SANFORD Attending Provider, Referring Provider Active DESI CHOWDHURY Primary Care Provider Active Brick Tender Relationship Specialty [place] [address] [facility] [place] [address] PCP - General 05/20/19 Brick Tender Relationship Specialty Start Date End Date Mega Weeks [facility] PCP - General Internal Medicine 07/24/17 John Conrad [address] [facility] [address] [place] [address] Specialty Retail Client Solutions Analyst Cardiology 07/13/21 Nitin Rock MD [address] [place] [address] Specialty Retail Client Solutions Analyst Cardiology 01/21/22 Brick Tender Relationship Specialty [place] [address] [facility] [place] [address] PCP - General 05/20/19 Team Status: Inactive Member Role Status Dates Dr. Richy Dumont MD Emergency Provider Active DESI CHOWDHURY Primary Care Provider Active Brick Tender Relationship Specialty Start Date End Date [place] [id number] [place] [address], [place] [address] PCP - General 05/20/19 Brick Tender Relationship Specialty Start Date [place] [id number] [place] [address], [place] [address] PCP - General 05/20/19 Brick Tender Relationship Specialty [place] [address] [facility] [place] [address] PCP - General 05/20/19 Brick Tender Relationship Specialty [place] [address] [facility] [place] [address] PCP - General 05/20/19 Brick Tender Relationship Specialty Start Date End Date Mega Weeks PCP - General Internal Medicine 07/24/17 John Conrad [address] [place] [address] Specialty Retail Client Solutions Analyst Cardiology 07/13/21 Nitin Rock MD [address] [phone] Specialty Retail Client Solutions Analyst Cardiology 01/21/22 Brick Tender Relationship Specialty Start Date End Date Mega Weeks PCP - General Internal Medicine 07/24/17 Anamaria, [place] S [address] [place], [place] [address] Specialty Retail Client Solutions Analyst Cardiology 07/13/21 Nitin Rock MD [address] [place] [address] Specialty Retail Client Solutions Analyst Cardiology 01/21/22 Brick Tender Relationship Specialty Start Date End Date Mega Weeks PCP - General Internal Medicine 07/24/17 Anamaria, [place] S [address] [place], [place] [id number] Specialty Retail Client Solutions Analyst Cardiology 07/13/21 Nitin Rock MD [address] [place] [address] (Fax) Specialty Retail Client Solutions Analyst Cardiology 01/21/22 Team Status: Inactive Member Role Status Dates DESI CHOWDHURY Primary Care Provider Active Dr. Charlie Chase DO Attending Provider, Referrin g Provider Active Team Status: Inactive Member Role Status Dates Dr. Richy Dumont MD Attending Provider, Emergency Provider Active DESI CHOWDHURY Primary Care Provider Active Team Status: Inactive Member Role Status Dates DESI CHOWDHURY Primary Care Provider Active BÁRBARA MASON , SPECIMEN COLLECTOR-C Attending Provider, Referring Provider Active Brick Tender Relationship Specialty [place] [address] [place] [address] PCP - General 05/20/19 Brick Tender Relationship Specialty [place] [address] [facility] [place] [address] PCP - General 05/20/19 Brick Tender Relationship Specialty [place] [address] [facility] [place] [address] PCP - General 05/20/19 Brick Tender Relationship Specialty Start Date End Date Desi Mega Wadeim PCP - General Internal Medicine 07/24/17 [place] [address] [place] [address] Specialty Retail Client Solutions Analyst Cardiology 07/13/21 Nitin Rock MD [address] [address] Specialty Retail Client Solutions Analyst Cardiology 01/21/22 Team Status: Active Member Role Status Dates DEFINED NOT Primary Care Provider Active Team Status: Inactive Member Role Status Dates Erlinda Lou SPECIMEN COLLECTOR, SPECIMEN COLLECTOR-C Attending Provider Active Team Status: Inactive Member Role Status Dates DEFINED NOT Primary Care Provider Active Dr. Brenda Armando MD Emergency Provider Active Brick Tender Relationship Specialty Start Date End Date Mega Weeks PCP - General Internal Medicine 07/24/17 John Conrad MD [address] [address] Specialty Retail Client Solutions Analyst Cardiology 07/13/21 Nitin Rock MD [address] [place] [address] Specialty Retail Client Solutions Analyst Cardiology 01/21/22 Brick Tender Relationship Specialty Start Date End Date Mega Weeks PCP - General Internal Medicine 07/24/17 John Conrad MD [address] [place] [address] Specialty Retail Client Solutions Analyst Cardiology 07/13/21 Nitin Rock MD [address] [place] [address] Specialty Retail Client Solutions Analyst Cardiology 01/21/22 Brick Tender Relationship Specialty Start Date End Date Mega Weeks PCP - General Internal Medicine 07/24/17 John Conrad MD [address] [place] [address] Specialty Retail Client Solutions Analyst Cardiology 07/13/21 Nitin Rock MD [address] [place] [address] Specialty Retail Client Solutions Analyst Cardiology 01/21/22 Brick Tender Relationship Specialty Start Date End Date Mega Weeks PCP - General Internal Medicine 07/24/17 John Conrad MD [address] [place] [address] Specialty Retail Client Solutions Analyst Cardiology 07/13/21 Nitin Rock MD [address] [place] [address] Specialty Retail Client Solutions Analyst Cardiology 01/21/22 Team Status: Active Member Role Status Dates Out of Town Doctor Primary Care Provider Active Team Status: Inactive Member Role Status Dates No Primary Care Physician Referring Provider Active GIANFRANCO Munguia Attending Provider Active Out of Town Doctor Primary Care Provider Active Team Status: Inactive Member Role Status Dates DEFINED NOT Primary Care Provider Active Dr. John Conrad MD Attending Provider Active Team Status: Inactive Member Role Status Dates Out of Town Doctor Primary Care Provider Active GIANFRANCO Munguia Attending Provider, Referr ing Provider Active Brick Tender Relationship Specialty Start Date End Date Mega Weeksahim PCP - General Internal Medicine 07/24/17 John Conrad MD [address] [place] [address] Specialty Retail Client Solutions Analyst Cardiology 07/13/21 Nitin Rock MD [address] [place] [address] (Fax) Specialty Retail Client Solutions Analyst Cardiology 01/21/22 Brick Tender Relationship Specialty Start Date End Date Desi Mega Cralson PCP - General Internal Medicine 07/24/17 John Conrad MD [address] [place] [address] Specialty Retail Client Solutions Analyst Cardiology 07/13/21 Nitin Rock MD [address] [place] [address] Specialty Retail Client Solutions Analyst Cardiology 01/21/22 Brick Tender Relationship Specialty Start Date End Date Mega Weeks PCP - General Internal Medicine 07/24/17 John Conrad MD [address] [place] [address] Specialty Retail Client Solutions Analyst Cardiology 07/13/21 Nitin Rock MD [address] [place] [address] Specialty Retail Client Solutions Analyst Cardiology 01/21/22 Brick Tender Relationship Specialty Start Date End Date Mega Weeks PCP - General Internal Medicine 07/24/17 John Conrad MD [address] [place] [address] Specialty Retail Client Solutions Analyst Cardiology 07/13/21 Nitin Rock MD [address] [place] [address] Specialty Retail Client Solutions Analyst Cardiology 01/21/22 Brick Tender Relationship Specialty Start Date End Date Mega Weeks PCP - General Internal Medicine 07/24/17 John Conrad MD [address] [place] [address] Specialty Retail Client Solutions Analyst Cardiology 07/13/21 Nitin Rock MD [address] [place] [address] Specialty Retail Client Solutions Analyst Cardiology 01/21/22 Brick Tender Relationship Specialty Start Date End Date Mega Weeks PCP - General Internal Medicine 07/24/17 John Conrad MD [address] [place] [address] Specialty Retail Client Solutions Analyst Cardiology 07/13/21 Nitin Rock MD [address] [place] [address] Specialty Retail Client Solutions Analyst Cardiology 01/21/22 Brick Tender Relationship Specialty Start Date End Date Mega Weeks PCP - General Internal Medicine 07/24/17 John Conrad MD [address] [place] [address] Specialty Retail Client Solutions Analyst Cardiology 07/13/21 Nitin Rock MD [address] [place] [address] Specialty Retail Client Solutions Analyst Cardiology 01/21/22 Brick Tender Relationship Specialty Start Date End Date Mega Weeks PCP - General Internal Medicine 07/24/17 John Conrad MD [address] [place] [address] Specialty Retail Client Solutions Analyst Cardiology 07/13/21 Nitin Rock MD [address] [place] [address] Specialty Retail Client Solutions Analyst Cardiology 01/21/22 Brick Tender Relationship Specialty Start Date End Date Mega Weeks PCP - General Internal Medicine 07/24/17 John Conrad MD [address] [place] [address] Specialty Retail Client Solutions Analyst Cardiology 07/13/21 Nitin Rock MD [address] [place] [address] Specialty Retail Client Solutions Analyst Cardiology 01/21/22 Brick Tender Relationship Specialty Start Date End Date Mega Weeks PCP - General Internal Medicine 07/24/17 John Conrad MD [address] [place] [address] Specialty Retail Client Solutions Analyst Cardiology 07/13/21 Nitin Rock MD [address] [place] [address] Specialty Retail Client Solutions Analyst Cardiology 01/21/22 Brick Tender Relationship Specialty Start Date End Date Mega Weeks PCP - General Internal Medicine 07/24/17 John Conrad MD [address] [place] [address] Specialty Retail Client Solutions Analyst Cardiology 07/13/21 Nitin Rock MD [address] [place] [address] Specialty Retail Client Solutions Analyst Cardiology 01/21/22 Brick Tender Relationship Specialty Start Date End Date Mega Weeks PCP - General Internal Medicine 07/24/17 John Conrad MD [address] [facility] [address] [place], [place] [address] Specialty Retail Client Solutions Analyst Cardiology 07/13/21 Nitin Rock MD [address] [place] [address] Specialty Retail Client Solutions Analyst Cardiology 01/21/22 Team Status: Inactive Member Role Status Dates Dr. Madeleine Hebert , DO Attending Provider Active S tart: August 18, 2024 End: August 19, 2024 Dr. Madeleine Hebert , DO Emergency Provider Active S tart: August 18, 2024 End: August 19, 2024 MEGADESI MEJIA Primary Care Provider Active Start : August 18, 2024 End: August 19, 2024 Team Status: Inactive Member Role Status Dates No Primary Care Physician Primary Care Provider Active Start: September 17, 2024 End: September 17, 2024 Dr. Steve Oliveira , DO Attending Provider Activ e Start: September 17, 2024 End: September 17, 2024 Dr. Steve Oliveira , DO Emergency Provider Activ e Start: September 17, 2024 End: September 17, 2024 Team Status: Inactive Member Role Status Dates No Primary Care Physician Primary Care Provider Active Start: September 17, 2024 End: September 17, 2024 Dr. John Conrad MD Attending Provider Active S tart: September 17, 2024 End: September 17, 2024 Team Status: Inactive Member Role Status Dates No Primary Care Physician Primary Care Provider Active Start: November 18, 2024 End: November 18, 2024 No Primary Care Physician Referring Provider Active Start: November 18, 2024 End: November 18, 2024 GIANFRANCO Munguia Attending Provider Active Start: November 18, 2024 End: November 18, 2024 Team Status: Inactive Member Role Status Dates No Primary Care Physician Primary Care Provider Active Start: November 18, 2024 End: November 18, 2024 GIANFRANCO Munguia Attending Provider Active Start: November 18, 2024 End: November 18, 2024 GIANFRANCO Munguia Referring Provider Active Start: November 18, 2024 End: November 18, 2024 Team Status: Active Member Role Status Dates Dr. Mega Weeks MD Primary Care Provider Active Team Status: Inactive Member Role Status Dates Dr. Silvano Perez DO Emergency Provider Active Start: December 03, 2024 End: December 03, 2024 Dr. Mega Weeks MD Primary Care Provider Active Start: December 03, 2024 End: December 03, 2024 Brick Tender Relationship Specialty Start Date End Date Mega Weeks [address] [place], [place] [address] PCP - General Internal Medicine 12/16/24 John Conrad MD [address] [facility] [address] [place], [place] [id number] Specialty Retail Client Solutions Analyst Cardiology 07/13/21 Nitin Rock MD [address] [facility] [address] [place] [address] Specialty Retail Client Solutions Analyst Cardiology 01/21/22 Alison Díaz PA-C [address] [facility] [place] [address] Physician Oil Spraying Machine Operator Cardiology 12/15/24 Brick Tender Relationship Specialty Start Date End Date Mega Weeks [address] [place], [place] [address] PCP - General Internal Medicine 12/16/24 John Conrad MD [address] [place], [place] [address] Specialty Retail Client Solutions Analyst Cardiology 07/13/21 Nitin Rock MD [address] [place] [address] Specialty Retail Client Solutions Analyst Cardiology 01/21/22 Alison Díaz PA-C [address] [place], [place] [address] Physician Oil Spraying Machine Operator Cardiology 12/15/24 Brick Tender Relationship Specialty [place] [address] [place] [address] PCP - General 06/10/19 [place] [address] [place] [address] PCP - Clairejose MATHEWO PCP 09/10/23 Brick Tender Relationship Specialty [place] [address] [place] [address] PCP - General 06/10/19 [place] [address] [place] [place] [address] [place] [id number] PCP - Emmanuelle MATHEWO PCP 09/10/23 Team Status: Inactive Member Role Status Dates Dr. Silvano Perez DO Attending Provider Active Start: December 03, 2024 End: December 03, 2024 Dr. Silvano Perez DO Emergency Provider Active Start: December 03, 2024 End: December 03, 2024 Dr. Mega Weeks MD Primary Care Provider Active Start: December 03, 2024 End: December 03, 2024 Team Status: Inactive Member Role Status Dates Dr. Mega Weeks MD Primary Care Provider Active Start: January 08, 2025 End: January 08, 2025 Dr. Mega Weeks MD Referring Provider Active Start: January 08, 2025 End: January 08, 2025 Marisela Watkins SPECIMEN COLLECTOR, SPECIMEN COLLECTOR-C Attending Provider Active Start: January 08, 2025 End: January 08, 2025 Team Status: Inactive Member Role Status Dates Dr. Mega Weeks MD Primary Care Provider Active Start: January 11, 2025 End: January 12, 2025 Dr. Silvano Perez DO Emergency Provider Active Start: January 11, 2025 End: January 12, 2025 Dr. Marlon Damon MD Admit Provider Active Start: January 11, 2025 End: January 12, 2025 Dr. Marlon Damon MD Other Provider Active Start: January 11, 2025 End: January 12, 2025 Dr. Shayla Rios MD Other Provider Active Star t: January 11, 2025 End: January 12, 2025 Dr. Cesar Sanchez MD Attending Provider Active Start: January 11, 2025 End: January 12, 2025 Team Status: Active Member Role Status Dates Dr. Mega Weeks MD Primary Care Provider Active Start: January 11, 2025 Dr. Silvano Perez DO Emergency Provider Active Start: January 11, 2025 Dr. Marlon Damon MD Admit Provider Active Start: January 11, 2025 Dr. Marlon Damon MD Attending Provider Active Start: January 11, 2025 Dr. Marlon Damon MD Other Provider Active Start: January 11, 2025 Dr. Shayla Rios MD Other Provider Active Star t: January 11, 2025 Team Status: Active Member Role Status Dates Dr. Mega Weeks MD Primary Care Provider Active Start: January 11, 2025 Dr. Silvano Perez DO Emergency Provider Active Start: January 11, 2025 Dr. Marlon Damon MD Admit Provider Active Start: January 11, 2025 Dr. Marlon Damon MD Other Provider Active Start: January 11, 2025 Dr. Shayla Rios MD Attending Provider Active Start: January 11, 2025 Dr. Shayla Rios MD Other Provider Active Star t: January 11, 2025 Team Status: Active Member Role Status Dates Dr. Mega Weeks MD Primary Care Provider Active Start: January 12, 2025 Dr. Silvano Perez DO Emergency Provider Active Start: January 12, 2025 Dr. Marlon Damon MD Admit Provider Active Start: January 12, 2025 Dr. Marlon Damon MD Other Provider Active Start: January 12, 2025 Dr. Shayla Rios MD Other Provider Active Star t: January 12, 2025 Dr. Riley Haque DO Attending Provider Active Start: January 12, 2025 Dr. Riley Haque DO Other Provider Active Star t: January 12, 2025 Team Status: Active Member Role Status Dates Dr. Mega Weeks MD Primary Care Provider Active Start: January 12, 2025 Dr. Silvano Perez DO Emergency Provider Active Start: January 12, 2025 Dr. Marlon Damon MD Admit Provider Active Start: January 12, 2025 Dr. Marlon Damon MD Other Provider Active Start: January 12, 2025 Dr. Shayla Rios MD Other Provider Active Star t: January 12, 2025 Dr. Riley Haque DO Other Provider Active Star t: January 12, 2025 Dr. Cesar Sanchez MD Attending Provider Active Start: January 12, 2025 Team Status: Active Member Role Status Dates Dr. Mega Weeks MD Primary Care Provider Active Start: January 12, 2025 Dr. John Conrad MD Attending Provider Active S tart: January 12, 2025 Brick Tender Relationship Specialty Start Date End Date Mega Weeksahim [address] [facility] [place] [address] PCP - General Internal Medicine 12/16/24 John Conrad MD [address] [place], [place] [address] [phone] Specialty Retail Client Solutions Analyst Cardiology 07/13/21 Nitin Rock MD [address] [place] [phone] Specialty Retail Client Solutions Analyst Cardiology 01/21/22 Alison Díaz PA-C [address] [place], [place] [id number] Physician Oil Spraying Machine Operator Cardiology 12/15/24 Brick Tender Relationship Specialty Start Date End Date Mega Weeksahim [address] [facility], [place] [address] PCP - General Internal Medicine 12/16/24 John Conrad MD [address] [place], [place] [id number] [phone] Specialty Retail Client Solutions Analyst Cardiology 07/13/21 Nitin Rock MD [address] [place] [phone] Specialty Retail Client Solutions Analyst Cardiology 01/21/22 Alison Díaz PA-C [address] [place] [place] [address] Physician Oil Spraying Machine Operator Cardiology 12/15/24 Team Status: Active Member Role Status Dates Dr. Mega Weeks MD Primary Care Provider Active Start: January 16, 2025 Marisela Watkins SPECIMEN COLLECTOR, SPECIMEN COLLECTOR-C Attending Provider Active Start: January 16, 2025 Marisela Watkins SPECIMEN COLLECTOR, SPECIMEN COLLECTOR-C Referring Provider Active Start: January 16, 2025 Team Status: Inactive Member Role Status Dates No Primary Care Physician Referring Provider Active Start: February 20, 2025 End: February 20, 2025 Alison MEDEL PA Attending Provider Active Start: February 20, 2025 End: February 20, 2025 Dr. Mega Weeks MD Primary Care Provider Active Start: February 20, 2025 End: February 20, 2025 Brick Tender Relationship Specialty Start Date End Date Mega Weeks [address] [place], [place] [address] PCP - General Internal Medicine 12/16/24 John Conrad MD [address] [id number] Specialty Retail Client Solutions Analyst Cardiology 07/13/21 Nitin Rock MD 224 [facility] [address] [place] [address] Specialty Retail Client Solutions Analyst Cardiology 01/21/22 Alison Díaz PA-C 176 [place], [place] [address] [phone] Physician Oil Spraying Machine Operator Cardiology 12/15/24 Brick Tender Relationship Specialty Start Date End Date Mega Weeks [address] [place] [address] PCP - General Internal Medicine 12/16/24 John Conrad MD 176 [facility] [address] [place], [place] [address] Specialty Retail Client Solutions Analyst Cardiology 07/13/21 Nitin Rock MD [address] [place] [phone] Specialty Retail Client Solutions Analyst Cardiology 01/21/22 Alison Díaz PA-C [address] [address] (Fax) Physician Oil Spraying Machine Operator Cardiology 12/15/24 Brick Tender Relationship Specialty Start Date End Date MariamsangeethaMega [address] [facility], [place] [address] PCP - General Internal Medicine 12/16/24 John Conrad MD 176 [facility] [address] [place] [address] Specialty Retail Client Solutions Analyst Cardiology 07/13/21 Nitin Rock MD [address] [place] [phone] Specialty Retail Client Solutions Analyst Cardiology 01/21/22 lAison Díaz PA-C [address]61 [facility] [place] [address] Physician Oil Spraying Machine Operator Cardiology 12/15/24 Brick Tender Relationship Specialty Start Date End Date Mega Weeks [address] [place], [place] [id number] PCP - General Internal Medicine 12/16/24 John Conrad MD [address] [facility] [address] [place] [address] Specialty Retail Client Solutions Analyst Cardiology 07/13/21 Nitin Rock MD [address] [place] [address] Specialty Retail Client Solutions Analyst Cardiology 01/21/22 Alison Díaz PA-C [address] [place] [place] [address] Physician Oil Spraying Machine Operator Cardiology 12/15/24 Brick Tender Relationship Specialty Start Date End Date Mega Weeks Carlson [address] [facility] [place] [address] PCP - General Internal Medicine 12/16/24 John Conrad MD [address] [place] [address] Specialty Retail Client Solutions Analyst Cardiology 07/13/21 Nitin Rock MD [address] [place] [phone] Specialty Retail Client Solutions Analyst Cardiology 01/21/22 Alison Díaz PA-C [address] [place], [place] [address] [phone]- Physician Oil Spraying Machine Operator Cardiology 12/15/24 Brick Tender Relationship Specialty Start Date End Date Mega Weeks [address] [facility] [place] [address] PCP - General Internal Medicine 12/16/24 John Conrad MD [address] [place] [address] Specialty Retail Client Solutions Analyst Cardiology 07/13/21 Nitin Rock MD [address] [place] [address] Specialty Retail Client Solutions Analyst Cardiology 01/21/22 Alison Díaz PA-C [address] [place] [address] Physician Oil Spraying Machine Operator Cardiology 12/15/24 Brick Tender Relationship Specialty Start Date End Date Mega Weeks [address] [place] [address] PCP - General Internal Medicine 12/16/24 John Conrad MD [address] [place] [address] Specialty Retail Client Solutions Analyst Cardiology 07/13/21 Nitin Rock MD [address] [place] [address] Specialty Retail Client Solutions Analyst Cardiology 01/21/22 Alison Díaz PA-C [address] [place] [address] Physician Oil Spraying Machine Operator Cardiology 12/15/24 Brick Tender Relationship Specialty Start Date End Date MariamMega lewis Carlson [address] [place] [address] PCP - General Internal Medicine 12/16/24 John Conrad MD [address] [place] [address] Specialty Retail Client Solutions Analyst Cardiology 07/13/21 Nitin Rock MD [address] [place] [address] Specialty Retail Client Solutions Analyst Cardiology 01/21/22 Alison Díaz PA-C [address] [facility] [place] [place] [address] Physician Oil Spraying Machine Operator Cardiology 12/15/24 Brick Tender Relationship Specialty Start Date End Date Mega Weeks [address] [place] [address] PCP - General Internal Medicine 12/16/24 John Conrad MD [address]61 [facility] [address] [phone] Specialty Retail Client Solutions Analyst Cardiology 07/13/21 Nitin Rock MD [address] [address] Specialty Retail Client Solutions Analyst Cardiology 01/21/22 Alison Díaz PA-C [address]61 [facility] [place] [id number] Physician Oil Spraying Machine Operator Cardiology 12/15/24 Team Status: Active Member Role/Relationship Status Dates Dr. Mega Weeks MD Primary Care Provider Active Team Status: Inactive Member Role/Relationship Status Dates Dr. Mega Weeks MD Primary Care Provider Active Start: January 08, 2025 End: January 08, 2025 Dr. Mega Weeks MD Referring Provider Active Start: January 08, 2025 End: January 08, 2025 Marisela Watkins SPECIMEN COLLECTOR, SPECIMEN COLLECTOR-C Attending Provider Active Start: January 08, 2025 End: January 08, 2025 Team Status: Inactive Member Role/Relationship Status Dates Dr. Mega Weeks MD Primary Care Provider Active Start: January 11, 2025 End: January 12, 2025 Dr. Silvano Perez DO Emergency Provider Active Start: January 11, 2025 End: January 12, 2025 Dr. Marlon Damon MD Admit Provider Active Start: January 11, 2025 End: January 12, 2025 Dr. Marlon Damon MD Other Provider Active Start: January 11, 2025 End: January 12, 2025 Dr. Shayla Rios MD Other Provider Active Star t: January 11, 2025 End: January 12, 2025 Dr. Cesar Sanchez MD Attending Provider Active Start: January 11, 2025 End: January 12, 2025 Team Status: Active Member Role/Relationship Status Dates Dr. Mega Weeks MD Primary Care Provider Active Start: January 11, 2025 Dr. Silvano Perez DO Emergency Provider Active Start: January 11, 2025 Dr. Marlon Damon MD Admit Provider Active Start: January 11, 2025 Dr. Marlon Damon MD Attending Provider Active Start: January 11, 2025 Dr. Marlon Damon MD Other Provider Active Start: January 11, 2025 Dr. Shayla Rios MD Other Provider Active Star t: January 11, 2025 Team Status: Active Member Role/Relationship Status Dates Dr. Mega Weeks MD Primary Care Provider Active Start: January 11, 2025 Dr. Silvano Perez DO Emergency Provider Active Start: January 11, 2025 Dr. Marlon Damon MD Admit Provider Active Start: January 11, 2025 Dr. Marlon Damon MD Other Provider Active Start: January 11, 2025 Dr. Shayla Rios MD Attending Provider Active Start: January 11, 2025 Dr. Shayla Rios MD Other Provider Active Star t: January 11, 2025 Team Status: Active Member Role/Relationship Status Dates Dr. Mega Weeks MD Primary Care Provider Active Start: January 12, 2025 Dr. Silvano Perez DO Emergency Provider Active Start: January 12, 2025 Dr. Marlon Damon MD Admit Provider Active Start: January 12, 2025 Dr. Marlon Damon MD Other Provider Active Start: January 12, 2025 Dr. Shayla Rios MD Other Provider Active Star t: January 12, 2025 Dr. Riley Haque DO Attending Provider Active Start: January 12, 2025 Dr. Riley Haque DO Other Provider Active Star t: January 12, 2025 Team Status: Active Member Role/Relationship Status Dates Dr. Mega Weeks MD Primary Care Provider Active Start: January 12, 2025 Dr. Silvano Perez DO Emergency Provider Active Start: January 12, 2025 Dr. Marlon Damon MD Admit Provider Active Start: January 12, 2025 Dr. Marlon Damon MD Other Provider Active Start: January 12, 2025 Dr. Shayla Rios MD Other Provider Active Star t: January 12, 2025 Dr. Riley Haque DO Other Provider Active Star t: January 12, 2025 Dr. Cesar Sanchez MD Attending Provider Active Start: January 12, 2025 Team Status: Active Member Role/Relationship Status Dates Dr. Mega Weeks MD Primary Care Provider Active Start: January 12, 2025 Dr. John Conrad MD Attending Provider Active S tart: January 12, 2025 Team Status: Active Member Role/Relationship Status Dates Dr. Mega Weeks MD Primary Care Provider Active Start: January 16, 2025 Dr. Cesar Sanchez MD Attending Provider Active Start: January 16, 2025 Marisela Watkins SPECIMEN COLLECTOR, SPECIMEN COLLECTOR-C Referring Provider Active Start: January 16, 2025 Team Status: Active Member Role/Relationship Status Dates Dr. Mega Weeks MD Primary Care Provider Active Start: January 16, 2025 Marisela Watkins SPECIMEN COLLECTOR, SPECIMEN COLLECTOR-C Attending Provider Active Start: January 16, 2025 Marisela Watkins SPECIMEN COLLECTOR, SPECIMEN COLLECTOR-C Referring Provider Active Start: January 16, 2025 Team Status: Inactive Member Role/Relationship Status Dates No Primary Care Physician Referring Provider Active Start: February 20, 2025 End: February 20, 2025 Alison Díaz PA, PA Attending Provider Active Start: February 20, 2025 End: February 20, 2025 Dr. Mega Weeks MD Primary Care Provider Active Start: February 20, 2025 End: February 20, 2025 Team Status: Inactive Member Role/Relationship Status Dates [facility] Referring Provider Active Sta rt: April 21, 2025 End: April 21, 2025 Dr. John Conrad MD Attending Provider Active S tart: April 21, 2025 End: April 21, 2025 Dr. Mega Weeks MD Primary Care Provider Active Start: April 21, 2025 End: April 21, 2025 Care Team (unrecognized sect ion and content) Care Team Personnel Name: MEGA WEEKS MD Member Role: Primary Care Physician Address: Address: [address] [place] [address] Care Team Related Persons Name: LUIS BROWN Care Team Personnel Name: MEGA WEEKS MD Member Role: Primary Care Physician Address: Address: [address] [place] [address] Name: MARGARITA Guerrero Position: AO RN Member Role: ED RN Name: JORGE LUIS WATERMAN MD Position: ED Physician Member Role: ED Physician Address: Address: [address] Name: CURT JOHN MD Position: Resident Member Role: Resident Address: Address: [address] [place] [address] Care Team Related Persons Name: DAMON EDMONDS Name: DAMON EDMONDS Scheduled Active and Recently Administ ered Medications (unrecognized section and content) Medication Order 12/22/2022 12/23/2022 12/24/2022 Acetaminophen-Caffeine (Excedrin Tension Headache) 2 tablet (COMPLETED) 2 tablet, Oral, Once, On Sun12/24/22 at 2015, For 1 dose 2019 (Given - Provid er: Solange Henley RN) Scheduled Medication Order 12/27/2022 12/28/2022 12/29/2022 Acetaminophen-Caffein e (Excedrin Tension Headache) 2 tablet 2 tablet, Oral, Every 8 hours scheduled (3 times per day), First dose on Sun12/26/22 at 1800 0621 (Given - Provider: Genoveva Drummond RN - Comment: for LONG)1405 (Given - Provider: Landy Christianson RN)2129 (Given - Provider: Ambika Hensley, MARGARITA) 0613 (Given - Provider: Ambika Hensley RN)1354 (Given - Provider: Aparna Martinez RN)2121 (Given - Provider: Thi Rosas RN) 0627 (Given - Provider: Thi Rosas, RN)1445 (Given - Provider: Mel Garduno, RN) aspirin EC tablet 162 mg 162 mg, Oral, Nightly, First dose (after last modification) on Sun12/27/22 at 2100, Do not crush, chew, or split. 2127 (Given - Provider: Ambika Hensley RN) 2049 (Given - Provider: Thi Rosas RN) cholecalciferol (Vitamin D-3) tablet 200 Units 200 Units, Oral, Nightly, First dose (after last modification) on Sun12/27/22 at 2100 213 (Given - Provider: Ambika Hensley RN) 2050 (Given - Provider: Thi Rosas, MARGARITA) enoxaparin (Lovenox) syringe 40 mg 40 mg, SubCUTAneous, Nightly, First dose (after last modification) on Sun12/27/22 at 2100 2130 (Given - Provider: Ambika Hensley RN) 2050 (Given - Provider: Thi Rosas RN) famotidine (Pepcid) injection 20 mg(Linked Group 1) 20 mg, IntraVENous, Administer over 2 Minutes, 2 times daily, First dose on Sun12/26/22 at 2330, IV or ORAL 0852 (See Alternative - Provider: Landy Christianson RN)2128 (See Alternative - Provider: Ambika Hensley RN) 08 (See Alternative - Provider: Aparna Martinez RN)2050 (See Alternative - Provider: Thi Rosas RN) 08 (See Alternative - Provider: Mel Garduno, MARGARITA) famotidine (Pepcid) tablet 20 mg(Linked Group 1) 20 mg, Oral, 2 times daily, First dose on Sun12/26/22 at 2330, IV or ORAL 0852 (Given - Provider: Landy Christianson RN)2128 (Given - Provider: Ambika Hensley RN) 0833 (Given - Provider: Aparna Martinez RN)2050 (Given - Provider: Thi Rosas RN) 0831 (Given - Provider: Mel Garduno, RN) labetalol (Normodyne) tablet 200 mg 200 mg, Oral, 3 times daily, First dose on Sun12/26/22 at 1645 0852 (Given - Provider: Landy Christianson RN)1408 (Given - Provider: Landy Christianson RN)2129 (Given - Provider: Ambika Hensley, MARGARITA) 0833 (Given - Provider: Aparna Martinez, RN)1354 (Given - Provider: Aparna Martinez, RN)205 (Given - Provider: Thi Rosas, RN) 0831 (Given - Provider: Mel Garduno, RN)1445 (Given - Provider: Mel Garduno, RN) levothyroxine (Synthroid, Levoxyl) tablet 50 mcg 50 mcg, Oral, Daily before breakfast, First dose on Sun12/27/22 at 0700, Tube feeding (TF) interaction, obtain physician order to manage, recommend holding TF for 30 minutes before and after dose. 0621 (Given - Provider: Genoveva Drummond RN) 0613 (Given - Provider: Ambika Hensley RN) 0627 (Given - Provider: Thi Rosas, MARGARITA) magnesium oxide (Mag-Ox) tablet 400 mg 400 mg, Oral, Daily, First dose on Sun12/26/22 at 1830 0852 (Given - Provider: Landy Christianson RN) 0833 (Given - Provider: Aparna Martinez, MARGARITA) 0839 (Given - Provider: Mel Garduno, MARGARITA) methylPREDNISolone sodium succinate (PF) (SOLU-Medrol) injection 125 mg (COMPLETED) 125 mg, IntraVENous, Once, On Sun12/27/22 at 1345, For 1 dose 1456 (Given - Provider: Brenda Chicas, MARGARITA) predniSONE (Deltasone) tablet 40 mg (COMPLETED) 40 mg, Oral, Once, On Sun12/29/22 at 1400, For 1 dose 1524 (Given - Provider: Mel Garduno, MARGARITA) 19 chewable tablet 1 tablet, Oral, Nightly, First dose (after last modification) on Sun12/26/22 at 2100 2130 (Given - Provider: Ambika Hensley RN) 2050 (Given - Provider: Thi Rosas RN) senna-docusate sodium (Senokot-S) 8.6-50 MG tablet 2 tablet 2 tablet, Oral, Daily, First dose on Sun12/27/22 at 1430 1456 (Given - Provider: Brenda Chicas, MARGARITA) 0900 (Not Given - Provider: Aparna Martinez RN - Reason: Patient/family refused) 0831 (Given - Provider: Mel Garduno, RN) sodium chloride 0.9% (NS) flush 10 mL 10 mL, IntraVENous, Every 12 hours scheduled (2 times per day), First dose on Sun12/26/22 at 2100 0853 (Given - Provider: Landy Christianson, MARGARITA)2131 (Given - Provider: Ambika Hensley RN) 0834 (Given - Provider: Aparna Martinez, RN)2054 (Given - Provider: Thi Rosas, MARGARITA) 0832 (Given - Provider: Mel Garduno, RN) PRN Medication Order 12/27/2022 12/28/2022 12/29/2022 cyclobenzaprine (Flexeril) tablet 10 mg 10 mg, Oral, 3 times daily PRN, muscle spasms, Starting on Sun12/26/22 at 1735 1106 (Given - Provider: Aparna Martinez RN)2050 (Given - Provider: Thi Rosas, MARGARITA) melatonin tablet 5 mg 5 mg, Oral, Nightly PRN, sleep, Starting on Sun12/29/22 at 0635 methylPREDNISolone sodium succinate (PF) (SOLU-Medrol) injection 125 mg (CANCELED) 125 mg, IntraVENous, Every 8 hours PRN, Pain, Starting on Sun12/28/22 at 1203 1353 (Given - Provider: Aparna Martinez, RN) 0002 (Given - Provider: Thi Rosas, RN)0821 (Given - Provider: Mel Garduno, MARGARITA) ondansetron (Zofran) injection 4 mg(Linked Group 2) 4 mg, IntraVENous, Every 6 hours PRN, nausea, vomiting, Starting on Sun12/26/22 at 1637, 1st Line. Give IV if patient is unable to take orally. If inadequate response within 60 minutes, proceed to next-line agent or contact provider if no further options ordered. ondansetron ODT (Zofran-ODT) disintegrating tablet 4 mg(Linked Group 2) 4 mg, Oral, Every 8 hours PRN, nausea, vomiting, Starting on Sun12/26/22 at 1637, 1st Line. If inadequate response within 60 minutes, proceed to next-line agent or contact provider if no further options ordered. Patient should allow tablet to dissolve on tongue. Do not remove from blister pack until just before administering. sodium chloride 0.9 % infusion 5-250 mL/hr, IntraVENous, PRN, if patient receiving piggyback infusions and maintenance fluids are not ordered OR KVO fluids to protect IV site / prevent frequent line interruptions/ long duration, Starting on Sun12/26/22 at 1637, For piggyback infusion, administer at same rate as piggyback for a total of 25 mL. Enter 25 mL into dose field and piggyback rate into rate field of order. If piggyback is infusing at a rate less than 100 mL/hr, enter 25 mL into dose field and 100 mL/hr into rate field of order. For KVO fluids, enter rate of 20 mL/hr or less into rate field of order. sodium chloride 0.9% (NS) flush 10 mL 10 mL, IntraVENous, PRN, line care, Starting on Sun12/26/22 at 1637, After every IV line use Linked Groups Order Group 1: famotidine (Pepcid) tablet 20 mgJump to med 20 mg, Oral, 2 times daily, First dose on Sun12/26/22 at 2330
IV or ORAL
Or famotidine (Pepcid) injection 20 mgJump to med 20 mg, IntraVENous, Administer over 2 Minutes, 2 times daily, First dose on Sun12/26/22 at 2330
IV or ORAL
Group 2: ondansetron ODT (Zofran-ODT) disintegrating tablet 4 mgJump to med 4 mg, Oral, Every 8 hours PRN, nausea, vomiting, Starting on Sun12/26/22 at 1637
1st Line. If inadequate response within 60 minutes, proceed to next-line agent or contact provider if no further options ordered. Patient should allow tablet to dissolve on tongue. Do not remove from blister pack until just before administering.
Or ondansetron (Zofran) injection 4 mgJump to med 4 mg, IntraVENous, Every 6 hours PRN, nausea, vomiting, Starting on Sun12/26/22 at 1637
1st Line. Give IV if patient is unable to take orally. If inadequate response within 60 minutes, proceed to next-line agent or contact provider if no further options ordered.
Scheduled Medication Order 05/10/2023 05/11/2023 05/12/2023 enoxaparin (Lovenox) syringe 80 mg 80 mg, SubCUTAneous, Daily, First dose on Sun05/09/23 at 1500, , Indication of Use: Prophylaxis-DVT/PE 1734 (Given - Provider: Ambika Sierra RN - Comment: Patient requesting it be moved closer to her normal at home time.) 1822 (Given - Provider: Alison De Santiago RN - Comment: patient sleeping requested to delay it.) 1500 (Canceled Entry - Provider: Automatic Discharge Provider - Comment: Automatically canceled at discontinue of medication order) ferrous sulfate tablet 325 mg 325 mg, Oral, 2 times daily with meals, First dose on Sun05/09/23 at 0800, , Start if Hgb less than 10. 0819 (Given - Provider: Fausto Bailey RN)1733 (Given - Provider: Ambika Sierra RN) 0854 (Given - Provider: Alison De Santiago RN)1822 (Given - Provider: Alison De Santiago RN) 1105 (Given - Provider: Azeb Lopez RN) ibuprofen tablet 600 mg 600 mg, Oral, Every 6 hours, First dose on Sun05/09/23 at 0600, , Once tolerating PO, discontinue Toradol and begin ibuprofen 8 hours after the final dose of Toradol. Alternate ibuprofen and acetaminophen every 3 hours. 0508 (Given - Provider: Gina Gutiérrez RN)1116 (Given - Provider: Fausto Bailey RN)1733 (Given - Provider: Ambika Sierra RN)2246 (Given - Provider: Gina Gutiérrez, MARGARITA) 0612 (Given - Provider: Gina Gutiérrez, MARGARITA)1309 (Given - Provider: Alison De Santiago, MARGARITA)1902 (Given - Provider: Alison De Santiago, MARGARITA) 0000 (Canceled Entry - Provider: Automatic Discharge Provider - Comment: Automatically canceled at discontinue of medication order)0600 (Canceled Entry - Provider: Automatic Discharge Provider - Comment: Automatically canceled at discontinue of medication order)0622 (Given - Provider: Michael Dodge, MARGARITA - Comment: due)1302 (Given - Provider: Azeb Lopez RN) labetalol (Normodyne) tablet 200 mg 200 mg, Oral, 3 times daily, First dose on Sun05/07/23 at 2215 0900 (Dose Auto Held - Provider: Idalia Herron MD)1400 (Dose Auto Held - Provider: Idalia Herron MD)2100 (Dose Auto Held - Provider: Idalia Herron MD) 0900 (Dose Auto Held - Provider: Idalia Herron MD)1400 (Dose Auto Held - Provider: Idalia Herron MD)2100 (Dose Auto Held - Provider: Idalia Herron MD) 0900 (Dose Auto Held - Provider: Idalia Herron MD)1400 (Dose Auto Held - Provider: Idalia Herron MD)1651 (Unheld by provider - Provider: Automatic Discharge Provider) levothyroxine (Synthroid, Levoxyl) tablet 50 mcg 50 mcg, Oral, Daily before breakfast, First dose on Sun05/08/23 at 0700, Tube feeding (TF) interaction, obtain physician order to manage, recommend holding TF for 30 minutes before and after dose. 0509 (Given - Provider: Gina Gutiérrez RN) 0612 (Given - Provider: Gina Gutiérrez RN) 0623 (Given - Provider: Michael Dodge, MARGARITA) Lidocaine 4 % patch 1 patch 1 patch, TransDERmal, Administer over 12 Hours, Daily, First dose on Sun05/10/23 at 2315, Apply patch to affected area. Patch may remain in place for up to 12 hours in any 24 hour period. 0149 (Medication Applied - Provider: Gina Gutiérrez RN - Comment: lower abdomen)1349 (Due: Medication Removed - Provider: Gina Gutiérrez RN)2300 (Canceled Entry - Provider: Automatic Discharge Provider - Comment: Automatically canceled at discontinue of medication order) magnesium oxide (Mag-Ox) tablet 400 mg 400 mg, Oral, Daily, First dose on Sun05/09/23 at 0900 0841 (Given - Provider: Fausto Bailey, RN) 0854 (Given - Provider: Alison De Santiago, MARGARITA) 1116 (Given - Provider: Azeb Lopez, RN) vitamin tablet 1 tablet, Oral, Daily, First dose on Sun05/09/23 at 0900, , Begin when normal bowel activity resumes. 0900 (Not Given - Provider: Fausto Bailey RN - Reason: Order parameters not met) 09 (Canceled Entry - Provider: Automatic Discharge Provider - Comment: Automatically canceled at discontinue of medication order) 0900 (Not Given - Provider: Azeb Lopez RN - Reason: Order parameters not met) sodium chloride 0.9% (NS) flush 5-40 mL 5-40 mL, IntraVENous, Every 12 hours scheduled (2 times per day), First dose on Sun05/09/23 at 0900, , or Line Patency: Peripheral IV = 5 mL; Midline or Central Line = 10 mL/lumen. If following IV push medication, administer flush at same rate as the IV push. Flush volume is determined by type of infusion therapy being given. For non-viscous solutions use: Peripheral IV = 5 mL Midline or Central Line = 10 mL/lumen For viscous solutions (i.e. blood components, parenteral nutrition, contrast media, or after obtaining blood sample) use: Peripheral IV = 10 mL Midline or Central Line = 20 mL/lumen 0900 (Not Given - Provider: Fausto Bailey RN - Reason: Loss of IV access)2100 (Not Given - Provider: Gina Gutiérrez RN - Reason: Loss of IV access) 0900 (Canceled Entry - Provider: Automatic Discharge Provider - Comment: Automatically canceled at discontinue of medication order)2100 (Canceled Entry - Provider: Automatic Discharge Provider - Comment: Automatically canceled at discontinue of medication order) 0900 (Canceled Entry - Provider: Automatic Discharge Provider - Comment: Automatically canceled at discontinue of medication order) PRN Medication Order 05/10/2023 05/11/2023 05/12/2023 acetaminophen (Tylenol) tablet 650 mg 650 mg, Oral, Every 6 hours PRN, other, Pain (1-10), Starting on Sun05/09/23 at 0500, , Give in addition to any other pain medication ordered at same time for any pain indication. Maximum dose of acetaminophen is 4000mg from all sources in 24 hours. Alternate ibuprofen and acetaminophen every 3 hours. Acetaminophen-Caffeine (Excedrin Tension Headache) 2 tablet 2 tablet, Oral, Every 6 hours PRN, headaches, Starting on Sun05/09/23 at 1222 0240 (Given - Provider: Gina Gutiérrez, RN)0841 (Given - Provider: Fausto Bailey, MARGARITA)2112 (Given - Provider: Gina Gutiérrez, RN) 0612 (Given - Provider: Gina Gutiérrez, MARGARITA)1309 (Given - Provider: Alison De Santiago, MARGARITA)1902 (Given - Provider: Alison De Santiago, MARGARITA) 0623 (Given - Provider: Michael Dodge, MARGARITA) docusate sodium (Colace) capsule 100 mg 100 mg, Oral, 2 times daily PRN, constipation, Starting on Sun05/09/23 at 0500, , Do not crush or break. 0819 (Given - Provider: Fausto Bailey RN) 0854 (Given - Provider: Alison De Santiago, MARGARITA) 0033 (Given - Provider: Michael Dodge, MARGARITA)1116 (Given - Provider: Azeb Lopez, MARGARITA) famotidine (Pepcid) tablet 20 mg 20 mg, Oral, Daily PRN, indigestion, heartburn, Starting on Sun05/09/23 at 0500, , Renal dose per pharmacy for peptic ulcer prophylaxis. HYDROmorphone (Dilaudid) injection 0.25 mg(Linked Group 1) 0.25 mg, IntraVENous, Every 3 hours PRN, moderate pain (4-6), Starting on Sun05/09/23 at 1500, , If oral and IV narcotics ordered, use oral first and only use IV if oral is ineffective or cannot take oral. Do Not give oral and IV within 1 hour of each other unless specifically ordered. HYDROmorphone (Dilaudid) injection 0.5 mg(Linked Group 1) 0.5 mg, IntraVENous, Every 3 hours PRN, severe pain (7-10), Starting on Sun05/09/23 at 1500, , If oral and IV narcotics ordered, use oral first and only use IV if oral is ineffective or cannot take oral. Do Not give oral and IV within 1 hour of each other unless specifically ordered. lanolin (Lansinoh) cream Topical, Every 1 hour PRN, dry skin, nipple discomfort, Starting on Sun05/09/23 at 0500, , Apply to affected area ondansetron (Zofran) injection 4 mg(Linked Group 2) 4 mg, IntraVENous, Every 6 hours PRN, nausea, vomiting, Starting on Sun05/09/23 at 0500, , 1st Line. Give IV if patient is unable to take orally. If inadequate response within 60 minutes, proceed to next-line agent or contact provider if no further options ordered. ondansetron ODT (Zofran-ODT) disintegrating tablet 4 mg(Linked Group 2) 4 mg, Oral, Every 8 hours PRN, nausea, vomiting, Starting on Sun05/09/23 at 0500, , 1st Line. If inadequate response within 60 minutes, proceed to next-line agent or contact provider if no further options ordered. Patient should allow tablet to dissolve on tongue. Do not remove from blister pack until just before administering. oxyCODONE (Roxicodone) immediate release tablet 10 mg(Linked Group 3) 10 mg, Oral, Every 4 hours PRN, severe pain (7-10), Starting on Sun05/09/23 at 1500, 1330 (See Alternative - Provider: Ambika Sierra RN)1733 (Given - Provider: Ambika Sierra RN)2112 (Given - Provider: Gina Gutiérrez, MARGARITA) 0301 (See Alternative - Provider: Asmita Perez, MARGARITA)0957 (See Alternative - Provider: Alison De Santiago, MARGARITA)1631 (See Alternative - Provider: Alison De Santiago, MARGARITA) 0032 (See Alternative - Provider: Michael Dodge, MARGARITA)0622 (Given - Provider: Michael Dodge, MARGARITA)1104 (See Alternative - Provider: Azeb Lopez, MARGARITA) oxyCODONE (Roxicodone) immediate release tablet 5 mg(Linked Group 3) 5 mg, Oral, Every 4 hours PRN, moderate pain (4-6), Starting on Sun05/09/23 at 1500, 1330 (Given - Provider: Ambika Sierra, RN)1733 (See Alternative - Provider: Ambika Sierra, RN)2112 (See Alternative - Provider: Gina Gutiérrez, RN) 0301 (Given - Provider: Asmita Perez, RN)0957 (Given - Provider: Alison De Santiago, RN)1631 (Given - Provider: Alison De Santiago, RN) 0032 (Given - Provider: Michael Dodge, MARGARITA)0622 (See Alternative - Provider: Michael Dodge, MARGARITA)1104 (Given - Provider: Azeb Lopez, MARGARITA) oxytocin (Pitocin) 30 units in 500 mL infusion 250-999 andrew-units/min (250-999 mL/hr), IntraVENous, Continuous PRN, bleeding, Starting on Sun05/07/23 at 2045, For Immediate Post Use Only. Give after delivery of placenta. Bag 1 of 2: Bolus for bag to infuse at 999 ml/hour for 15 minutes (15 units in 250cc). After initial bolus then decrease rate to 250cc/hr for 1 hour. Then discontinue oxytocin (Pitocin) 30 units in 500 mL infusion 30 Units, IntraVENous, at 999 mL/hr, Administer over 15 Minutes, Continuous PRN, Bleeding, Starting on Sun05/09/23 at 0056, Post- use ONLY after delivery of baby/ excessive bleeding/ uterine atony. Bolus bag (bag #1) of 30 units/500 mL: Infuse at 999 mL/hr for 15 min, then change to 250 mL for 1 hour. oxytocin (Pitocin) 30 units in 500 mL infusion 125 andrew-units/min (125 mL/hr), IntraVENous, Continuous PRN, Bleeding, Starting on Sun05/09/23 at 0056, For 4 doses, Post- use ONLY after delivery of baby/ excessive bleeding/ uterine atony. Given after delivery of placenta AND the initial 30 unit bolus. Bag 2 of 2. 125 cc/hr (125 mu/min) for an additional infusion of 500cc (30 units) simethicone (Mylicon) chewable tablet 80 mg 80 mg, Oral, Every 6 hours PRN, flatulence, cramping, Starting on Sun05/09/23 at 0500, sodium chloride 0.9 % infusion 5-250 mL/hr, IntraVENous, PRN, if patient receiving piggyback infusions and maintenance fluids are not ordered OR KVO fluids to protect IV site / prevent frequent line interruptions/ long duration, Starting on Sun05/09/23 at 0500, , For piggyback infusion, administer at same rate as piggyback for a total of 25 mL. Enter 25 mL into dose field and piggyback rate into rate field of order. If piggyback is infusing at a rate less than 100 mL/hr, enter 25 mL into dose field and 100 mL/hr into rate field of order. For KVO fluids, enter rate of 20 mL/hr or less into rate field of order. sodium chloride 0.9% (NS) flush 5-40 mL 5-40 mL, IntraVENous, PRN, line care, After every IV line use, Starting on Sun05/09/23 at 0500, , or Line Patency: Peripheral IV = 5 mL; Midline or Central Line = 10 mL/lumen. If following IV push medication, administer flush at same rate as the IV push. Flush volume is determined by type of infusion therapy being given. For non-viscous solutions use: Peripheral IV = 5 mL Midline or Central Line = 10 mL/lumen For viscous solutions (i.e. blood components, parenteral nutrition, contrast media, or after obtaining blood sample) use: Peripheral IV = 10 mL Midline or Central Line = 20 mL/lumen Linked Groups Order Group 1: HYDROmorphone (Dilaudid) injection 0.25 mgJump to med 0.25 mg, IntraVENous, Every 3 hours PRN, moderate pain (4-6), Starting on Sun05/09/23 at 1500,
If oral and IV narcotics ordered, use oral first and only use IV if oral is ineffective or cannot take oral. Do Not give oral and IV within 1 hour of each other unless specifically ordered.
Or HYDROmorphone (Dilaudid) injection 0.5 mgJump to med 0.5 mg, IntraVENous, Every 3 hours PRN, severe pain (7-10), Starting on Sun05/09/23 at 1500,
If oral and IV narcotics ordered, use oral first and only use IV if oral is ineffective or cannot take oral. Do Not give oral and IV within 1 hour of each other unless specifically ordered.
Group 2: ondansetron ODT (Zofran-ODT) disintegrating tablet 4 mgJump to med 4 mg, Oral, Every 8 hours PRN, nausea, vomiting, Starting on Sun05/09/23 at 0500,
1st Line. If inadequate response within 60 minutes, proceed to next-line agent or contact provider if no further options ordered. Patient should allow tablet to dissolve on tongue. Do not remove from blister pack until just before administering.
Or ondansetron (Zofran) injection 4 mgJump to med 4 mg, IntraVENous, Every 6 hours PRN, nausea, vomiting, Starting on Sun05/09/23 at 0500,
1st Line. Give IV if patient is unable to take orally. If inadequate response within 60 minutes, proceed to next-line agent or contact provider if no further options ordered.
Group 3: oxyCODONE (Roxicodone) immediate release tablet 5 mgJump to med 5 mg, Oral, Every 4 hours PRN, moderate pain (4-6), Starting on Sun05/09/23 at 1500, Or oxyCODONE (Roxicodone) immediate release tablet 10 mgJump to med 10 mg, Oral, Every 4 hours PRN, severe pain (7-10), Starting on Sun05/09/23 at 1500, Scheduled Medication Order 01/04/2025 01/05/2025 01/06/2025 ibuprofen tablet 600 mg (COMPLETED) 600 mg, oral, Once, On Sun01/06/25 at 1200, For 1 dose, May administer with food to reduce GI upset., If ordered PRN for pain, nurse is permitted to administer this medication for higher pain scores based on patient preference? Yes 5251 (Given - Provid er: Ria Hicks RN) FOR RECORDS PERTAINING TO PATIENTS WHO ARE OR HAVE BEEN ENROLLED IN A CHEMICAL DEPENDENCY/SUBSTANCEABUSE PROGRAM, SOME INFORMATION MAY BE OMITTED. This clinical summary was aggregated from multiple sources. Caution should be exercised in using it in the provision of clinical care. This summary normalizes information from multiple sources, and as a consequence, information in this document may materially change the coding, format and clinical context of patient data. In addition, data may be omitted in some cases. CLINICAL DECISIONS SHOULD BE BASED ON THE PRIMARY CLINICAL RECORDS. [facility] [employer] [facility]. provides no warranty or guarantee of the accuracy or completeness of information in this document.
--- NOTE | 2025-05-03 12:31 | ED.VIS.CHEST ---
HPI History of Present Illness Chief Complaint: Chest Pain Informant: patient and EMS Narrative Narrative: 35-year-old female states she felt like she went into ventricular tachycardia today which she has a longstanding history of. She stated lasted somewhere between 10 and 15 minutes before the symptoms suddenly started resolving, this is longer than usual. She follows with EP cardiology in [place] for this for some time, she been having more frequent episodes since December, they have changed her medications around, she currently is on metoprolol and flecainide as well as some other medications, she has not missed any of her medicines and took them this morning prior to being at [facility] where this happened. She did not lose consciousness. She had chest pressure, racing heartbeat, lightheadedness, same symptoms that she usually gets. She has an implanted loop recorder. She states the discomfort has gone now and she is feeling better upon arrival to the ER being in sinus rhythm. [facility] Medical History Allergic rhinitis HTN (hypertension), benign BMI 50.0-59.9, adult Obesity (BMI 30-39.9) Obstructive sleep apnea Hypothyroidism Pancreatitis Cholecystectomy planned Implantable loop recorder present SVT (supraventricular tachycardia) History of lupus anticoagulant disorder History of asthma Insulin resistance Migraines Home Medications ?Medication ?Instructions ?Recorded ?Last Taken ?Type levothyroxine 50 mcg tablet 50 mcg PO DAILY thyroid 12/05/22 04/10/23 History (Synthroid) ascorbic acid (vitamin C) 500 mg 500 mg PO DAILY suppliment 03/05/24 Unknown History tablet aspirin 81 mg chewable tablet 81 mg PO DAILY preventative 03/05/24 Unknown History cholecalciferol (vitamin D3) 25 25 mcg PO DAILY suppliment 03/05/24 Unknown History mcg (1,000 unit) tablet gabapentin 100 mg capsule 100 mg PO DAILY PRN pain 09/17/24 Unknown History lisinopril 20 mg tablet 20 mg PO BID blood pressure 09/17/24 Unknown History ondansetron HCl 8 mg tablet 8 mg PO Q12H PRN nausea and 09/17/24 Unknown History vomiting albuterol sulfate 90 mcg/actuation 1 inh inhalation ONCE PRN 11/18/24 Unknown History aerosol inhaler shortness of breath or wheezing amlodipine 5 mg tablet (Norvasc) 5 mg PO QDAY blood pressure #90 11/18/24 Unknown Rx tabs promethazine 25 mg tablet 12.5 - 25 mg PO Q8 PRN nausea 02/20/25 Unknown History flecainide 100 mg tablet 100 mg PO Q12H 04/21/25 Unknown History magnesium oxide 400 mg PO DAILY #60 caps 04/21/25 Unknown Rx metoprolol tartrate 50 mg tablet 50 mg PO BID heart #180 tabs 04/21/25 Unknown Rx Allergy/AdvReac Type Severity Reaction Status Date / Time diphenhydramine (From Allergy Mild Chest Verified 04/21/25 13:10 Benadryl) tightness prochlorperazine (From Allergy Other Verified 04/21/25 13:10 Compazine) Family History Mother Cancer Thyroid disorder Father Heart disease Early 50s Surgical History History of cardiac radiofrequency ablation (02/24/25) History of section History of electrophysiologic study (02/13/22) History of tonsillectomy History of cholecystectomy Social History (Updated 05/03/25 @ 12:17 by Harriet Noel) household members: spouse and children housing: house Smoking Status: Never smoker alcohol intake: never substance use type: does not use caffeine: Yes Type: coffee Number of servings: 2 ROS ROS ED Constitutional Constitutional ED: Denies chills or fever(s) Eyes Eyes: Denies change in vision or diplopia ENT ENT ED: Denies rhinorrhea or sore throat Cardiovascular Cardiovascular: Reports as per HPI, chest pain, lightheadedness, palpitations and racing heartbeat; Denies syncope Respiratory/Chest Respiratory/Chest: Denies cough or dyspnea Gastrointestinal Gastrointestinal: Denies abdominal pain, diarrhea, nausea or vomiting Genitourinary Genitourinary ED: Denies dysuria or hematuria Musculoskeletal Musculoskeletal: Denies back pain or neck pain Integumentary Denies abscess or rash Neurologic Neurologic: Denies headache(s), paresthesias or weakness Psychiatric Psychiatric: Denies anxiety or suicidal thoughts EXAM Physical Exam Const Vital Signs: 05/03/25 12:11 05/03/25 12:17 05/03/25 13:11 Temperature 98.2 F Temperature Source Oral Pulse Rate 98 87 Respiratory Rate 22 H 21 H Respiratory Effort Normal Non-Labored Blood Pressure 141/95 H 153/76 H Blood Pressure Mean 110 101 Pulse Ox 97 97 Oxygen Delivery Method Room Air Room Air 05/03/25 14:00 05/03/25 14:30 Temperature 98.4 F Temperature Source Pulse Rate 85 96 Respiratory Rate 20 H 16 Respiratory Effort Blood Pressure 141/78 H 141/86 H Blood Pressure Mean 99 104 Pulse Ox 97 99 Oxygen Delivery Method Room Air Positive well nourished, well developed and obese General Appearance ED: well developed and NAD Nutritional Appearance: obese HEENT Reports moist mucous membranes normocephalic and atraumatic Eyes PERRL and EOMs intact bilaterally Neck full ROM and supple Resp normal respiratory effort and clear to auscultation bilaterally Cardio regular rate, regular rhythm and no murmurs GI non-tender and non-distended Auscultation: normoactive bowel sounds Palpation: soft Back/Spine no CVA tenderness General Back: other FROM Extremity normal to inspection General Extremety ED: Negative for edema, pulses abnormal or tenderness General Extremity: Negative for edema or pulses abnormal Neuro oriented x3, CN's II-XII intact bilaterally and no sensory deficits noted Sensorium / Orientation: awake and alert Motor Exam: strength 5/5 throughout Skin no rashes or lesions noted and no wounds MDM MDM MDM Narrative Medical decision making narrative: Patient shows me an EKG rhythm strip from her phone. It was a 32nd strip and she was in ventricular tachycardia 2 different episodes during that 30 seconds, for about 5 to 10 seconds each. She had no recurrent episodes of ventricular tachycardia or other dysrhythmias here in emergency department, just a couple of isolated PVCs that she felt but she states that is not unusual for her. Vital signs are normal, labs are unremarkable. I do not think we need to run cardiac enzymes given the situation, she has had several EP studies and ablations at [facility] And has been transferred to [facility] she is waiting to be transferred to a new EP physician there, for now I recommend calling them to discuss medication changes, for now I would just have her continue her medications, she was observed for couple hours without event, she is ambulatory without issue or recurrence and stable for discharge home. She is comfortable with that plan. Lab Data Attestation: I reviewed the patient's lab results. Labs: Laboratory Results - last 24 hr 05/03/25 12:20 WBC 10.6 RBC 5.24 Hgb 13.1 Hct 41.3 MCV 78.8 L MCH 25.0 L MCHC 31.7 L RDW Std Deviation 42.0 RDW Coeff of Remigio 14.6 Plt Count 221 MPV 11.7 Immature Gran % (Auto) 0.300 Neut % (Auto) 73.9 H Lymph % (Auto) 19.1 [place] % (Auto) 5.0 Eos % (Auto) 1.5 Baso % (Auto) 0.2 Absolute Neuts (auto) 7.8 H Absolute Lymphs (auto) 2.02 Nucleated RBC % 0 Sodium 138 Potassium 4.1 Chloride 101 Carbon Dioxide 22.1 Anion Gap 14 BUN 11 Creatinine 0.67 L Estim Creat Clear Calc 188.49 Est GFR (MDRD) Non-Af 118 BUN/Creatinine Ratio 16.1 Glucose 122 H Calcium 9.4 Rhythm Strip Rhythm Strip: Sinus Rhythm Rate: 95 Ectopy: PVC(s) EKG Initial EKG: Attestation: I personally reviewed and interpreted this EKG as follows: Interpretation: Sinus Rhythm Comments: PVC. Borderline long QTc, otherwise normal EKG Discharge Plan Triage Chief Complaint: Chest Pain ED Provider: Juan Ly Dx/Rx/DC Orders Clinical Impression: Paroxysmal ventricular tachycardia Instructions: Ventricular Arrhythmia Prescriptions: No Action aspirin 81 mg tablet,chewable 81 mg PO DAILY levothyroxine [Synthroid] 50 mcg tablet 50 mcg PO DAILY ascorbic acid (vitamin C) 500 mg tablet 500 mg PO DAILY cholecalciferol (vitamin D3) 25 mcg (1,000 unit) tablet 25 mcg PO DAILY flecainide 100 mg tablet 100 mg PO Q12H metoprolol tartrate 50 mg tablet 50 mg PO BID Qty: 180 3RF magnesium oxide 400 mg magnesium capsule 400 mg PO DAILY Qty: 60 3RF albuterol sulfate 90 mcg/actuation HFA aerosol inhaler 1 inh inhalation ONCE PRN (Reason: shortness of breath or wheezing) amlodipine [Norvasc] 5 mg tablet 5 mg PO QDAY Qty: 90 3RF promethazine 25 mg tablet 12.5 - 25 mg PO Q8 PRN (Reason: nausea) gabapentin 100 mg capsule 100 mg PO DAILY PRN (Reason: pain) ondansetron HCl 8 mg tablet 8 mg PO Q12H PRN (Reason: nausea and vomiting) lisinopril 20 mg tablet 20 mg PO BID Primary Care Provider: Mega Weeks I Referrals: your EP cardiology office [Other] - As soon as possible Print Language: [place] Islander Disposition Disposition: Home, Self Care Discharge Date/Time: 05/03/25 14:30
[2025-05-03 12:33] LABS: Hematocrit 41.3 % (37-47); Hemoglobin 13.1 g/dL (12.0-15.0); Immature Granulocytes Count 0.030 X10^3/uL (0.0-0.0); Mean Corp Hgb Conc 31.7 g/dL (32-36); Mean Corpuscular Volume 78.8 fL (81-99); Mean Platelet Vol. 11.7 fl (6.2-12.0); NRBC Flagged by Analyzer 0 % (0-5); Platelet Count 221 K/mm3 (150-450); RBC Distribution Width CV 14.6 % (11.6-14.6); RBC Distribution Width SD 42.0 fl (35.1-43.9); Red Blood Count 5.24 M/mm3 (4.2-5.4); White Blood Count 10.6 K/mm3 (4.4-11.0)
[2025-05-03 13:05] LABS: Anion Gap 14 (5-15); BUN 11 mg/dL (4-19); BUN/Creat Ratio 16.1 RATIO (10-20); Calcium,Total 9.4 mg/dL (7.6-11.0); Carbon Dioxide 22.1 mmol/L (21.0-32.0); Chloride 101 mmol/L (98-108); Estimated Creatinine Clearance 188.49 ml/min (50-250); Glucose 122 mg/dL (70-99); Potassium 4.1 mmol/L (3.3-5.1)
[2025-05-03 13:11] VITALS: BP 153/76; PULSE 87; RESP 21; O2SAT 97
[2025-05-03 14:00] VITALS: BP 141/78; PULSE 85; RESP 20; O2SAT 97
[2025-05-03 14:30] VITALS: BP 141/86; PULSE 96; RESP 16; TEMP 36.9; O2SAT 99
== END 2025-05-03 14:30 | disposition home or self-care (01) ==
PROVIDERS: Emergency Provider Emergency Medicine; PCP Specialist; Visit Provider Emergency Medicine
DX: I47.20 Ventricular tachycardia, unspecified (principal); I10 Essential (primary) hypertension; E03.9 Hypothyroidism, unspecified; G47.33 Obstructive sleep apnea (adult) (pediatric); E66.9 Obesity, unspecified; Z79.82 Long term (current) use of aspirin; Z79.890 Hormone replacement therapy; Z79.899 Other long term (current) drug therapy
CPT/HCPCS: 80048; 85025; 93005; 99285; A4216

== ENCOUNTER 2025-07-16 15:14 | Emergency (ER) | payer MEDICAID, SELFPAY ==
[2025-07-16 15:15] VITALS: BP 130/93; PULSE 123; RESP 24; TEMP 36.8; O2SAT 100; BMI 55.9
--- NOTE | 2025-07-16 15:24 | RAD_ITS ---
PROCEDURE: RAD/Chest 1 View (Portable)
--- NOTE | 2025-07-16 15:25 | ED.VIS.CHEST ---
HPI History of Present Illness Chief Complaint: Chest Pain Narrative Narrative: 35-year-old female past medical history of supraventricular tachycardia presents with chest pain that began an hour ago. She states it radiates down her left arm. No exacerbating or alleviating factors. Sometimes described as sharp. She denies any nausea or vomiting, no fevers or chills, no cough. She has had episodes similar to this in the past. She states she sees production support developer/cafeteria worker in [place]. She states last time she was hospitalized they lowered her metoprolol dosing but upped her flecainide. She states that while she has had chest pain similar to this previously, it has not been as intense. She states she was waiting for it to go away, but it only seemed to intensify. [facility] Medical History Allergic rhinitis HTN (hypertension), benign BMI 50.0-59.9, adult Obesity (BMI 30-39.9) Obstructive sleep apnea Hypothyroidism Pancreatitis Cholecystectomy planned Implantable loop recorder present SVT (supraventricular tachycardia) History of lupus anticoagulant disorder History of asthma Insulin resistance Migraines Home Medications ?Medication ?Instructions ?Recorded ?Last Taken ?Type levothyroxine 50 mcg tablet 50 mcg PO DAILY thyroid 12/05/22 04/10/23 History (Synthroid) ascorbic acid (vitamin C) 500 mg 500 mg PO DAILY suppliment 03/05/24 Unknown History tablet aspirin 81 mg chewable tablet 81 mg PO DAILY preventative 03/05/24 Unknown History cholecalciferol (vitamin D3) 25 25 mcg PO DAILY suppliment 03/05/24 Unknown History mcg (1,000 unit) tablet gabapentin 100 mg capsule 100 mg PO DAILY PRN pain 09/17/24 Unknown History lisinopril 20 mg tablet 20 mg PO BID blood pressure 09/17/24 Unknown History ondansetron HCl 8 mg tablet 8 mg PO Q12H PRN nausea and 09/17/24 Unknown History vomiting albuterol sulfate 90 mcg/actuation 1 inh inhalation ONCE PRN 11/18/24 Unknown History aerosol inhaler shortness of breath or wheezing amlodipine 5 mg tablet (Norvasc) 5 mg PO QDAY blood pressure #90 11/18/24 Unknown Rx tabs promethazine 25 mg tablet 12.5 - 25 mg PO Q8 PRN nausea 02/20/25 Unknown History flecainide 100 mg tablet 150 mg PO Q12H 04/21/25 Unknown History metoprolol tartrate 50 mg tablet 50 mg PO BID heart #180 tabs 04/21/25 Unknown Rx metoprolol succinate 25 mg 25 mg PO DAILY 07/16/25 Unknown History tablet,extended release 24 hr Allergy/AdvReac Type Severity Reaction Status Date / Time diphenhydramine (From Allergy Mild Chest Verified 07/16/25 15:19 Benadryl) tightness prochlorperazine (From Allergy Other Verified 07/16/25 15:19 Compazine) Family History Mother Cancer Thyroid disorder Father Heart disease Early 50s Surgical History History of cardiac radiofrequency ablation (02/24/25) History of section History of electrophysiologic study (02/13/22) History of tonsillectomy History of cholecystectomy Social History household members: spouse and children housing: house Smoking Status: Never smoker alcohol intake: never substance use type: does not use caffeine: Yes Type: coffee Number of servings: 2 ROS ROS ED ROS Narrative Review of systems positive for chest pain with radiation down left arm. Started approximately 1 hour ago. Continues to intensify according to patient. Complains of pedal edema. No exacerbating or alleviating factors. No fevers or chills, no cough, no nausea or vomiting. EXAM Physical Exam Narrative Exam Narrative: Afebrile. Vital signs noted. Nontoxic-appearing. Cardiovascular examination feels mild tachycardia that is regular. Lungs clear to auscultation bilaterally. Abdomen soft and nontender without guarding or rebound. Neurological examination nonfocal, nonlateralizing. No appreciable pitting edema bilaterally. Const Vital Signs: 07/16/25 15:15 07/16/25 15:23 07/16/25 15:24 Temperature 98.2 F Temperature Source Oral Pulse Rate 123 H Respiratory Rate 24 H Respiratory Effort Normal Blood Pressure 130/93 H Blood Pressure Mean 105 Pulse Ox 100 Oxygen Delivery Method Room Air Room Air 07/16/25 16:14 07/16/25 17:00 Temperature Temperature Source Pulse Rate 97 97 Respiratory Rate 18 20 H Respiratory Effort Blood Pressure 125/56 H 105/54 L Blood Pressure Mean 79 71 Pulse Ox 99 99 Oxygen Delivery Method MDM MDM MDM Narrative Medical decision making narrative: Differential diagnosis includes but not limited to supraventricular tachycardia versus ventricular tachycardia versus sinus tachycardia versus atrial fibrillation versus ACS. I have low suspicion for pneumonia or pneumothorax because history and physical does not support this. I reviewed her prior ED visits. She has had negative D-dimers in the past as well. Comprehensive workup was pursued. EKG was obtained and interpreted by myself independently as sinus tachycardia at 116 bpm without ectopy or acute ST changes. No STEMI. On the monitor during history and physical, heart rate was approximately 105 bpm. She was placed on a window systems administrator. I will obtain CBC, BMP, serial troponins. Chest x-ray will be obtained as well. Chest x-ray interpreted by myself independently in 1 view shows no evidence of pneumonia or pneumothorax, no acute process. I reviewed the radiology report which confirms my independent interpretation. In review of her laboratory work she has leukocytosis of 13.9. I think this is nonspecific and when compared to prior labs she has had intermittent leukocytosis as well. Hemoglobin 13.1, hematocrit 42, platelet count 233. BMP is grossly unremarkable, BUN of 10 with creatinine 0.68, no severe dehydration. Serum is negative. TSH 2.8. Repeat examination shows her heart rate ranges from 88 to the 90s. She feels improved while having her bolus of IV fluids. I do not feel a D-dimer is indicated this does not sound like a pulmonary embolism and her heart rate is improved and she satting 99 to 100% on room air. She states that he did not feel like she was in SVT before but she was complaining that her palpitations were hurting. In discussion with the patient, as long as her second troponin does not show significant delta, I do feel that she can be discharged to follow-up with her production support developer and/or her primary care provider. Her second troponin returned at 6. Upon repeated evaluation at approximately 1810, she is resting comfortably on the cot, looking at her test cellular telephone. She is motivated for discharge. Disposition is discharged home in stable condition. Return instructions were reviewed. History & Record Review Discussion w/independent historian: Patient Additional record(s) reviewed:: Prior ED visit and Prior labs Lab Data Attestation: I reviewed the patient's lab results. Labs: Laboratory Results - last 24 hr 07/16/25 07/16/25 15:20 17:18 WBC 13.9 H RBC 5.28 Hgb 13.1 Hct 42.0 MCV 79.5 L MCH 24.8 L MCHC 31.2 L RDW Std Deviation 44.7 H RDW Coeff of Remigio 15.6 H Plt Count 233 MPV 12.0 Immature Gran % (Auto) 0.400 Neut % (Auto) 69.1 Lymph % (Auto) 22.2 [place] % (Auto) 5.8 Eos % (Auto) 2.3 Baso % (Auto) 0.2 Absolute Neuts (auto) 9.6 H Absolute Lymphs (auto) 3.08 Nucleated RBC % 0 Sodium 141 Potassium 3.7 Chloride 102 Carbon Dioxide 27.0 Anion Gap 12 BUN 10 Creatinine 0.68 L Estim Creat Clear Calc 187.19 Est GFR (MDRD) Non-Af 117 BUN/Creatinine Ratio 14.9 Glucose 101 H Calcium 9.4 Magnesium 1.9 Troponin T High Sens < 6 Troponin T Hi Sens 2 Hr 6 TSH 2.840 Serum , Qual NEGATIVE Radiography Diagnostic Testing: Clinical Impression(s) from Imaging Studies Chest X-Ray 07/16/25 15:24 IMPRESSION: No acute abnormality Reading Location: [facility] Discharge Plan Triage Chief Complaint: Chest Pain ED Provider: Lauri Alejandre Dx/Rx/DC Orders Clinical Impression: Palpitations, Chest pain Instructions: ED Chest Pain, Uncertain Cause, ED Heart Palpitations Prescriptions: No Action aspirin 81 mg tablet,chewable 81 mg PO DAILY levothyroxine [Synthroid] 50 mcg tablet 50 mcg PO DAILY ascorbic acid (vitamin C) 500 mg tablet 500 mg PO DAILY cholecalciferol (vitamin D3) 25 mcg (1,000 unit) tablet 25 mcg PO DAILY flecainide 100 mg tablet 150 mg PO Q12H metoprolol tartrate 50 mg tablet 50 mg PO BID Qty: 180 3RF albuterol sulfate 90 mcg/actuation HFA aerosol inhaler 1 inh inhalation ONCE PRN (Reason: shortness of breath or wheezing) amlodipine [Norvasc] 5 mg tablet 5 mg PO QDAY Qty: 90 3RF promethazine 25 mg tablet 12.5 - 25 mg PO Q8 PRN (Reason: nausea) metoprolol succinate 25 mg tablet extended release 24 hr 25 mg PO DAILY gabapentin 100 mg capsule 100 mg PO DAILY PRN (Reason: pain) ondansetron HCl 8 mg tablet 8 mg PO Q12H PRN (Reason: nausea and vomiting) lisinopril 20 mg tablet 20 mg PO BID Primary Care Provider: Mega Weeks I Referrals: Mega Weeks MD [Primary Care Provider, Internal Medicine] - As soon as possible Activity Restrictions/Additional Instructions: Follow-up with your production support developer/cafeteria worker to soon as possible. Return to the emergency department with increased chest pain, elevated heart rate that is sustained, new or worsening symptoms. Print Language: Egyptian Disposition Disposition: Home, Self Care
[2025-07-16] MEDS: 0.9% Normal Saline (1000mL) 1,000 ML 999 ML IV (15:31)
[2025-07-16 15:48] LABS: Internal QC Validated? YES +Cl - CLEAR BKGD; Pregnancy, Serum, hCG Quali. NEGATIVE Negative; Record Kit Lot#, Serum Preg. 980607
[2025-07-16 15:54] LABS: Hematocrit 42.0 % (37-47); Hemoglobin 13.1 g/dL (12.0-15.0); Immature Granulocytes Count 0.050 X10^3/uL (0.0-0.0); Mean Corp Hgb Conc 31.2 g/dL (32-36); Mean Corpuscular Volume 79.5 fL (81-99); Mean Platelet Vol. 12.0 fl (6.2-12.0); NRBC Flagged by Analyzer 0 % (0-5); Platelet Count 233 K/mm3 (150-450); RBC Distribution Width CV 15.6 % (11.6-14.6); RBC Distribution Width SD 44.7 fl (35.1-43.9); Red Blood Count 5.28 M/mm3 (4.2-5.4); White Blood Count 13.9 K/mm3 (4.4-11.0)
[2025-07-16 16:14] VITALS: BP 125/56; PULSE 97; RESP 18; O2SAT 99
[2025-07-16 16:20] LABS: Anion Gap 12 (5-15); BUN 10 mg/dL (4-19); BUN/Creat Ratio 14.9 RATIO (10-20); Calcium,Total 9.4 mg/dL (7.6-11.0); Carbon Dioxide 27.0 mmol/L (21.0-32.0); Chloride 102 mmol/L (98-108); Estimated Creatinine Clearance 187.19 ml/min (50-250); Glucose 101 mg/dL (70-99); Magnesium 1.9 mg/dL (1.5-2.2); Potassium 3.7 mmol/L (3.3-5.1); Troponin T High Sensitivity < 6 ng/L (<=14)
[2025-07-16 17:00] VITALS: BP 105/54; PULSE 97; RESP 20; O2SAT 99
[2025-07-16 18:02] LABS: Troponin T High Sens 2 HR 6 ng/L (<=14)
[2025-07-16 18:27] VITALS: BP 119/63; PULSE 93; PULSE 96; RESP 16; TEMP 36.6; O2SAT 100; O2SAT 99
== END 2025-07-16 18:36 | disposition home or self-care (01) ==
PROVIDERS: Emergency Provider Emergency Medicine; PCP Specialist; Visit Provider Emergency Medicine
DX: R07.9 Chest pain, unspecified (principal); R00.2 Palpitations; I10 Essential (primary) hypertension; Z79.82 Long term (current) use of aspirin; Z79.899 Other long term (current) drug therapy; Z82.49 Family history of ischemic heart disease and other diseases of the circulatory system
CPT/HCPCS: 71045; 80048; 83735; 84443; 84484; 84703; 85025; 93005; 96360; 99284; A4216